=== PATIENT | male | born 1970 | race Caucasian/White ===

== ENCOUNTER 2020-08-17 12:31 | Outpatient (REF) | payer MEDICARE, MEDICAID, SELFPAY ==
[2020-08-17 13:45] LABS: Anion Gap 17 (12-20); Blood Urea Nitrogen 27 mg/dL (9-16); Carbon Dioxide 24 mmol/L (22-29); Chloride 100 mmol/L (96-108); Estimated Glomerular Filt Rate > 60; Phosphorus 4.7 mg/dL (2.7-4.5); Potassium 4.6 mmol/l (3.3-5.1); Sodium 136 mmol/L (135-145)
[2020-08-17 14:04] LABS: Renal w Reflex Lab Use Only Order verified
== END 2020-08-17 12:32 | disposition home or self-care (01) ==
LOC: HO.LAB 12:31
PROVIDERS: PCP Internal Medicine; Visit Provider Internal Medicine Nephrology
DX: E78.1 Pure hyperglyceridemia (principal); I10 Essential (primary) hypertension
CPT/HCPCS: 80051; 82310; 82565; 84100; 84520

== ENCOUNTER → 2020-09-08 11:02 | Outpatient (BNVA) | payer MEDICARE, MEDICAID, SELFPAY | PROVIDERS: PCP Internal Medicine; Referring Provider Internal Medicine; Visit Provider Nurse Practitioner Gerontology | DX: E11.21 Type 2 diabetes mellitus with diabetic nephropathy (principal); E11.40 Type 2 diabetes mellitus with diabetic neuropathy, unspecified; E11.65 Type 2 diabetes mellitus with hyperglycemia; Z79.4 Long term (current) use of insulin; R80.9 Proteinuria, unspecified; E78.5 Hyperlipidemia, unspecified; I10 Essential (primary) hypertension; E66.01 Morbid (severe) obesity due to excess calories; Z68.41 Body mass index [BMI] 40.0-44.9, adult | CPT/HCPCS: 82947; 99212 ==

== ENCOUNTER → 2020-09-13 12:35 | Outpatient (BNVA) | payer MEDICARE, MEDICAID, SELFPAY | PROVIDERS: PCP Internal Medicine; Referring Provider Internal Medicine; Visit Provider Physician Assistant | DX: S93.402A Sprain of unspecified ligament of left ankle, initial encounter (principal) | CPT/HCPCS: 99212 ==

== ENCOUNTER → 2020-09-22 11:48 | Outpatient (BNVA) | payer MEDICARE, MEDICAID, SELFPAY | PROVIDERS: PCP Internal Medicine; Referring Provider Internal Medicine; Visit Provider Nurse Practitioner Gerontology | DX: E11.21 Type 2 diabetes mellitus with diabetic nephropathy (principal); E11.40 Type 2 diabetes mellitus with diabetic neuropathy, unspecified; Z79.4 Long term (current) use of insulin; R80.9 Proteinuria, unspecified; E78.5 Hyperlipidemia, unspecified; I10 Essential (primary) hypertension; E66.01 Morbid (severe) obesity due to excess calories; Z68.41 Body mass index [BMI] 40.0-44.9, adult | CPT/HCPCS: Q3014 ==

== ENCOUNTER 2020-09-26 15:27 | Outpatient (REF) | payer MEDICARE, MEDICAID, SELFPAY ==
--- NOTE | 2020-09-26 15:30 | CT_ITS ---
EXAMINATION: CT HEAD WITHOUT CONTRAST CLINICAL INFORMATION: Fall. Head trauma. COMPARISON: 09/25/2019 TECHNIQUE: Contiguous axial imaging was performed from the skull base to vertex without intravenous contrast. This CT examination was performed using dose optimization techniques as appropriate, variously including the following: * Automated exposure control * Adjustment of mA and/or kV according to patient size (this includes techniques or standardized protocols for targeted exams where dose is matched to indication/reason for exam; i.e. extremities or head) Use of iterative reconstruction technique DLP: 860 mGy-cm. FINDINGS: There is no evidence of acute intracranial hemorrhage or territorial infarction. No abnormal mass effect or midline shift is seen. Shell to white matter differentiation is well preserved. No extra-axial fluid collections are identified. No hydrocephalus. No significant volume loss. Patchy periventricular and deep white matter hypoattenuation is consistent with mild small vessel ischemic changes. 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 The osseous structures and soft tissues are normal. The mastoid air cells and visualized portions of the paranasal sinuses are well aerated. CT/CT head/brain wo con IMPRESSION: No acute intracranial pathology.
== END 2020-09-26 15:28 | disposition home or self-care (01) ==
LOC: HO.CT 15:27
PROVIDERS: Visit Provider Internal Medicine
DX: S09.90XA Unspecified injury of head, initial encounter (principal); W19.XXXA Unspecified fall, initial encounter; M25.572 Pain in left ankle and joints of left foot; M25.562 Pain in left knee
CPT/HCPCS: 70450

== ENCOUNTER 2020-11-25 13:06 | Emergency (ER) | payer MEDICARE, MEDICAID, SELFPAY ==
--- NOTE | 2020-11-25 13:10 | ED_ITS ---
HPI - Fall General Chief Complaint: Back Pain/Injury Stated Complaint: FALL/BACK PAIN Time Seen by Provider: 11/25/20 13:09 Source: patient and EMS Mode of arrival: EMS Limitations: no limitations History of Present Illness HPI Narrative: 50 y/o male with history of obesity, DM2, HLD, GERD, asthma, PVD, vertigo, cerebellar ataxia, depression/anxiety who presents to the ED from a senior living via EMS s/p slip and fall when getting into the shower today. He hit his right lower back and right buttocks on the side of the bathtub. EMS was called and helped get him up. He denies hitting his head or losing consciousnes s. He is not on blood thinners. Related Data Home Medications Medication Instructions Recorded Confirmed demeclocycline 1 tab PO BID 09/04/20 10/20/20 fluticasone propion-salmeterol 1 inh INHALATION BID 09/04/20 10/20/20 [Advair Diskus] hydralazine 1 tab PO BID 09/04/20 10/20/20 lisinopril 20 mg PO DAILY 09/04/20 10/20/20 metformin 1,000 mg PO BID 09/04/20 10/20/20 amlodipine 5 mg tablet 5 mg PO DAILY 09/08/20 10/20/20 blood sugar diagnostic #10 ea 09/08/20 10/11/20 calcium polycarbophil 625 mg tablet 1,250 mg PO DAILY 09/08/20 10/20/20 cholecalciferol (vitamin D3) 25 25 mcg PO DAILY 09/08/20 10/20/20 mcg (1,000 unit) tablet dicyclomine 20 mg tablet 20 mg PO DAILY 09/08/20 10/20/20 lactase 3,000 unit tablet 3,000 unit PO TID PRN tab 09/08/20 10/20/20 mecobalamin (vitamin B12) 1,000 1,000 mcg SUBLINGUAL BEDTIME 09/08/20 10/20/20 mcg disintegrating tablet,sublingual pen needle, diabetic 31 gauge x #1200 ea 09/08/20 10/11/2003/25 triamcinolone acetonide 0.1 % 0.1 applic TOPICAL TID 09/08/20 10/11/20 topical cream gabapentin 100 mg capsule 100 mg PO BID 09/22/20 10/20/20 risperidone 3 mg tablet 3 mg PO BID 09/22/20 10/20/20 divalproex 500 mg tablet,extended 500 mg PO DAILY 10/11/20 10/20/20 release 24 hr propranolol 20 mg tablet 20 mg PO TID tab 10/11/20 10/20/20 Previous Rx's Medication Instructions Recorded acetaminophen 325 mg capsule 650 mg PO QID PRN #60 cap 09/06/20 diphenoxylate-atropine 2.5 1 tab PO BID PRN #60 tab 09/06/20 mg-0.025 mg tablet albuterol sulfate 90 mcg/actuation 2 puff INHALATION Q4-6H PRN #8.5 g 09/29/20 aerosol inhaler semaglutide 0.5 mg SUBCUT QWEEK #1.5 ml 10/11/20 furosemide 20 mg tablet 20 mg PO QAM #28 tab 10/18/20 aspirin 81 mg tablet,delayed 81 mg PO QAM #28 tab 10/24/20 release lancets #100 ea 10/24/20 dextromethorphan-guaifenesin 10 10 ml PO Q4H PRN #118 ml 11/07/20 mg-100 mg/5 mL oral syrup atorvastatin 10 mg tablet 10 mg PO DAILY #28 tab 11/20/20 dexlansoprazole 60 mg 60 mg PO DAILY #90 cap 11/20/20 capsule,biphase delayed release Allergies Allergy/AdvReac Type Severity Reaction Status Date / Time Sulfa (Sulfonamide Allergy Severe LANDEROS Verified 11/16/20 13:14 Antibiotics) ALICIA REACTION, Landeros Alicia trimethoprim Allergy Mild UNKNOWN Verified 09/13/20 12:52 lactose AdvReac Mild STOMACH Verified 09/13/20 12:52 UPSET Review of Systems Review of Systems: Constitutional: No Fever, No Chills ENT/Mouth: No sore throat, No Rhinorrhea, No Swallowing Difficulty Eyes: No Eye Pain, No Swelling, No Redness Cardiovascular: No Chest Pain, No SOB, No Orthopnea, No Edema Respiratory: No Cough, No Sputum, No Wheezing, No dyspnea Gastrointestinal: No Nausea, No Vomiting, No Diarrhea, No abdominal Pain, No Hematochezia, No Melena Genitourinary: No Dysuria, No Urinary Frequency, No Hematuria Musculoskeletal: + joint pain, + Myalgias Skin: No Skin Lesions, No rash Neuro: No Weakness, No Numbness, No Dizziness, No Headache Psych: No Anxiety/Panic, No Depression Heme/Lymph: No Bruising, No Lymphadenopathy Endocrine: No Polyuria, No Polydipsia [facility] Past Medical History Medical History (Updated 11/25/20 @ 14:38 by PANKAJ Aguilar) Anemia Anxiety Asthma BMI 40.0-44.9, adult Cerebellar ataxia Depression Essential hypertension Hyperlipidemia LDL goal <100 Hypertension Hyponatremia Lactose intolerance Mental disability Morbid obesity due to excess calories Obesity Peripheral vascular disease Proteinuria Seizure disorder Type 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 Vertigo Surgical History History of orchiectomy Family History Family History (Updated 11/16/20 @ 13:15 by Ellen Yu Rickie) Father Myocardial infarction CVD (cardiovascular disease) Diabetes mellitus Mother Diabetes mellitus HTN (hypertension) Brother In good health Sister In good health Social History Social History Smoking Status: Former smoker Advance Directives: No Advance Directives Information Provided: No Physical Exam Vital Signs: Vital Signs: Last Vital Signs Temp 97.7 F 11/25/20 13:29 Pulse 70 11/25/20 13:29 Resp 16 11/25/20 13:29 BP 152/91 H 11/25/20 13:29 Pulse Ox 97 11/25/20 13:29 Body Mass Index 44.4 Appearance: Alert. Oriented X3. No acute distress. HEENT: right eye gaze deviation to the right CVS: Normal heart rate and rhythm. Pulses normal. Respiratory: No respiratory distress. Skin: Skin warm and dry. Normal skin color. Normal skin turgor. No rashes. Back: right lower lumbar area with mild tenderness, mild coccyx tenderness. no ecchymosis or deformity Extremities: atraumatic. Neuro: Oriented X 3. Abnormal gait which is his baseline. Moves around well in bed. Course Course Course Narrative: 50 y/o male with multiple comorbidities presenting with low back pain and buttock pain after slip and fall in the shower. No ecchymosis on exam, minimal tenderness. XR pending, low suspicion for fractures. Reevaluation(s) Reevaluation #1: XR negative. Patient given Tylenol with improvement in pain. He is stable for discharge. Discharge Plan Discharge Clinical Impression: Contusion of lower back Qualifiers: Encounter type: initial encounter Qualified Code(s): S30.0XXA - Contusion of lower back and pelvis, initial encounter Patient Disposition: Home, Self-Care Instructions: Contusion in Adults (ED) Additional Instructions: Your x-rays today were negative. Use ice to the area as needed for pain. Take Tylenol and/or Motrin as needed for pain. Follow up with your doctor as needed. If you develop worsening pain or any other concerning symptoms seek medical attention or come back to the ER for further evaluation. Prescriptions: No Action fluticasone propion-salmeterol [Advair Diskus] 250-50 mcg/dose blister with device 1 inh inhalation BID RF: 0 metformin 1,000 mg Tablet 1,000 mg PO BID RF: 0 demeclocycline 300 mg tablet 1 tab PO BID RF: 0 lisinopril 20 mg Tablet 20 mg PO DAILY RF: 0 hydralazine 50 mg tablet 1 tab PO BID RF: 0 diphenoxylate-atropine [Lomotil] 2.5-0.025 mg tablet 1 tab PO BID PRN (Reason: diarrhea) Qty: 60 RF: 0 acetaminophen 325 mg capsule 650 mg PO QID PRN (Reason: pain) Qty: 60 RF: 0 semaglutide [Ozempic] 0.25 mg or 0.5 mg(2 mg/1.5 mL) pen injector 0.5 mg subcut QWEEK Qty: 1.5 RF: 3 furosemide 20 mg tablet 20 mg PO QAM Qty: 28 RF: 2 (DME) lancets Misc See Rx Instructions ea topical TID Qty: 100 RF: 3 aspirin 81 mg tablet,delayed release (DR/EC) 81 mg PO QAM Qty: 28 RF: 11 dextromethorphan-guaifenesin [Siltussin-DM] 10-100 mg/5 mL syrup 10 ml PO Q4H PRN (Reason: for cough) Qty: 118 RF: 0 atorvastatin 10 mg tablet 10 mg PO DAILY Qty: 28 RF: 11 Dexilant 60 mg capsule,biphase delayed releas 60 mg PO DAILY Qty: 90 RF: 3 albuterol sulfate [Ventolin HFA] 90 mcg/actuation HFA aerosol inhaler 2 puff INHALATION Q4-6H PRN (Reason: Shortness Of Breath Or Wheezing) Qty: 8.5 RF: 0 propranolol 20 mg tablet 20 mg PO TID RF: 0 amlodipine 5 mg tablet 5 mg PO DAILY RF: 0 dicyclomine 20 mg tablet 20 mg PO DAILY RF: 0 mecobalamin (vitamin B12) 1,000 mcg tablet,disintegrating 1,000 mcg sublingual BEDTIME RF: 0 calcium polycarbophil [Fiber Laxative (ca polycarbo)] 625 mg tablet 1,250 mg PO DAILY RF: 0 lactase [Lactaid] 3,000 unit tablet 3,000 unit PO TID PRN (Reason: Lactose Intolerance) RF: 0 triamcinolone acetonide 0.1 % cream 0.1 applic topical TID RF: 0 cholecalciferol (vitamin D3) [Vitamin D3] 25 mcg (1,000 unit) tablet 25 mcg PO DAILY RF: 0 (DME) OneTouch Ultra Blue Test Strip Strip See Rx Instructions ea .ROUTE TID Qty: 10 RF: 0 (DME) pen needle, diabetic 31 gauge x 5/16 needle See Rx Instructions ea .ROUTE .MEDSUPPLY Qty: 1200 RF: 0 gabapentin 100 mg capsule 100 mg PO BID RF: 0 risperidone 3 mg tablet 3 mg PO BID RF: 0 divalproex 500 mg tablet extended release 24 hr 500 mg PO DAILY RF: 0
[2020-11-25 13:29] VITALS: BP 152/91; PULSE 70; RESP 16; TEMP 36.5; O2SAT 97; BMI 44.4
--- NOTE | 2020-11-25 13:35 | XR_ITS ---
EXAMINATION: LUMBAR SPINE AND SACRUM X-RAYS CLINICAL INFORMATION: Fall COMPARISON: Previous CT of the abdomen and pelvis September [address] of the lumbar spine July 2019 TECHNIQUE: 3 views of the lumbar spine and 3 views of the sacrum FINDINGS: Lumbar spine: There is curvature of the lower lumbar sacral spine to the right. Bone alignment is otherwise normal. No fracture or dislocation is seen. There is multilevel degenerative spondylosis visualized lower thoracic spine. There is lower lumbar spine facet arthritis. Sacrum: Bone alignment is normal. No fracture or dislocation is seen. There is soft tissue calcifications posterior to the lower sacrum and coccyx similar to previous exams. These represent partially calcified superficial gluteal collections when compared with previous CT scan. XR/XR sacrum coccyx min 2V IMPRESSION: Lumbar spine: No fracture or dislocation seen. Degenerative changes. Sacrum: No fracture or dislocation seen. Stable soft tissue calcifications overlying the lower sacrum and coccyx.
--- NOTE | 2020-11-25 13:35 | XR_ITS ---
EXAMINATION: LUMBAR SPINE AND SACRUM X-RAYS CLINICAL INFORMATION: Fall COMPARISON: Previous CT of the abdomen and pelvis September [address] of the lumbar spine July 2019 TECHNIQUE: 3 views of the lumbar spine and 3 views of the sacrum FINDINGS: Lumbar spine: There is curvature of the lower lumbar sacral spine to the right. Bone alignment is otherwise normal. No fracture or dislocation is seen. There is multilevel degenerative spondylosis visualized lower thoracic spine. There is lower lumbar spine facet arthritis. Sacrum: Bone alignment is normal. No fracture or dislocation is seen. There is soft tissue calcifications posterior to the lower sacrum and coccyx similar to previous exams. These represent partially calcified superficial gluteal collections when compared with previous CT scan. XR/XR lumbar spine 2-3V IMPRESSION: Lumbar spine: No fracture or dislocation seen. Degenerative changes. Sacrum: No fracture or dislocation seen. Stable soft tissue calcifications overlying the lower sacrum and coccyx.
[2020-11-25] MEDS: Acetaminophen 325 MG TABLET 975 MG PO (14:14)
--- NOTE | 2020-11-25 15:24 | PC.NURSE ---
call placed to pts assisted spoke with Brenda, someone will come to pick pt up
--- NOTE | 2020-11-25 16:00 | PC.NURSE ---
this rn calling Brenda from senior care. Pt has indicated to primary RN that he feels suicidal. Brenda states that pt has long history of attention seeking behaviour and has mult ED trips with negative workups. The house is on quarentine d/t one covid positive patiet and this pt likely doesn't want to go home. Pt is DM w/o breakfast today. Ride is enroute to ED. This rn to make provider aware.
--- NOTE | 2020-11-25 16:05 | PC.NURSE ---
Brenda also stating that patient's only attempt at self harm to her knowledge was running to the kitchen and taking a butter knife w/o harming himself. nursing home staff can have patient call crisis as needed. Provider is comfortable iwth discharge.
== END 2020-11-25 16:17 | disposition home or self-care (01) ==
PROVIDERS: Emergency Provider Emergency Medicine Emergency Medical Services; PCP Internal Medicine
DX: S30.0XXA Contusion of lower back and pelvis, initial encounter (principal); M54.5 Low back pain; M53.3 Sacrococcygeal disorders, not elsewhere classified; W18.2XXA Fall in (into) shower or empty bathtub, initial encounter; Y93.E1 Activity, personal bathing and showering; Y92.89 Other specified places as the place of occurrence of the external cause; Y99.9 Unspecified external cause status; Z79.899 Other long term (current) drug therapy; Z87.891 Personal history of nicotine dependence
CPT/HCPCS: 72100; 72220; 99283

== ENCOUNTER 2020-11-27 19:34 | Inpatient (IN) | payer MEDICARE, MEDICAID, SELFPAY ==
[2020-11-27 20:18] VITALS: BP 137/79; PULSE 85; RESP 20; TEMP 36.8; O2SAT 99; BMI 44.4
--- NOTE | 2020-11-27 20:23 | XR_ITS ---
EXAMINATION: PORTABLE CHEST 1 VIEW CLINICAL INFORMATION: cough . COMPARISON: 10/04/2019. TECHNIQUE: Portable frontal view of the chest was obtained. FINDINGS: The lungs are well expanded. No focal infiltrate, effusion, edema, or pneumothorax. Cardiac and mediastinal silhouettes are within normal limits for technique. No acute bony abnormality seen. XR/XR chest 1V IMPRESSION: No evidence of acute disease.
--- NOTE | 2020-11-27 20:23 | ECG_ITS ---
Test Reason : DIZZINESS Blood Pressure : / mmHG Vent. Rate : 087 BPM Atrial Rate : 277 BPM P-R Int : 000 ms QRS Dur : 082 ms QT Int : 382 ms P-R-T Axes : 068 -17 023 degrees QTc Int : 459 ms Artifact in tracing Likely sinus and not atrial arrhythmia; appearance probably from artifact ; Cannot assess further due to artifact; Abnormal ECG When compared with ECG of 04-OCT-2019 18:12, Due to artifact cannot compare Referred By: Mary Jane Kim Electronically Signed By:AP MONTGOMERY
--- NOTE | 2020-11-27 21:18 | CT_ITS ---
EXAMINATION: CT ABDOMEN AND PELVIS WITH CONTRAST CLINICAL INFORMATION: Right lower quadrant pain COMPARISON: Prior CT abdomen pelvis 09/25/2019 TECHNIQUE: Multidetector volumetric images were obtained from the superior aspect of the liver through the pubic symphysis following administration 85 mL of Omnipaque 350 intravenous contrast. Sagittal and coronal reformatted images were obtained on the technologist's workstation. Oral contrast: No This CT examination was performed using dose optimization techniques as appropriate, variously including the following: *Automated exposure control *Adjustment of mA and/or kV according to patient size (this includes techniques or standardized protocols for targeted exams where dose is matched to indication/reason for exam; i.e. extremities or head) *Use of iterative reconstruction technique DLP: 1142 mGy-cm FINDINGS: LUNG BASES: The visualized lung bases are unremarkable. LIVER, GALLBLADDER, AND BILIARY TREE: The liver is normal in size, shape, and attenuation. No focal hepatic lesion or biliary ductal dilatation is present. The gallbladder is unremarkable with no evidence of radiopaque gallstones, gallbladder wall thickening, or obvious pericholecystic inflammatory changes. PANCREAS: Unremarkable. SPLEEN: Unremarkable. ADRENAL GLANDS: Slight nodularity of the left adrenal gland is unchanged when compared to the prior study. KIDNEYS AND URETERS: The kidneys are normal in size, shape, and attenuation. No hydronephrosis, hydroureter, or calculi seen. There is nonspecific perinephric stranding. BLADDER: Symmetric wall thickening without masses or stones. GASTROINTESTINAL TRACT: The small and large bowel are unremarkable. The appendix is unremarkable. ABDOMINAL WALL: No significant hernia is appreciated. There is a large area of soft tissue mass and dystrophic calcification present in the right buttocks with a smaller area in the left buttocks. This measures 8.8 x 4.9 x 9.2 cm. Previously in 2019 this measured 5.8 x 4.2 x 6.2 cm. Calcification is predominantly peripheral and coarse with a low attenuation near fatty middle. This could represent an area of fat necrosis. LYMPH NODES: No retroperitoneal lymphadenopathy. VASCULAR: Calcific atherosclerotic changes present in the infrarenal aorta and iliac vessels. No aneurysm seen. PELVIC VISCERA: Prostate and seminal vesicles appear normal. OSSEOUS STRUCTURES: Degenerative changes present in the lower thoracic spine. No bony destructive. CT/CT abdomen pelvis w con IMPRESSION: No new worrisome finding to account for the patient's acute right lower quadrant pain. The bowel and the appendix appear unremarkable. Incidental note made of: 1. Unchanged nodularity left adrenal gland 2. Symmetric bladder wall thickening 3. Increasing size of coarse eggshell calcified mass right buttocks which may represent fat necrosis. Clinical correlation with recommended.
--- NOTE | 2020-11-27 21:20 | ED.ABDPAIN ---
HPI - Abdominal Pain General Chief Complaint: Abdominal Pain Stated Complaint: Abd pain Time Seen by Provider: 11/27/20 19:53 Source: patient Mode of arrival: ambulatory Limitations: other (Developmental delay) History of Present Illness HPI narrative: Patient is brought from a [facility] for abdominal pain. Patient states that today he started having right lower quadrant pain. Patient had 1 episode of diarrhea. Patient reports 1 episode of vomiting after eating. Patient is poor historian. Patient was seen here 2 days ago, patient came complaining of lumbar pain. Patient complaining of diarrhea, starting today. MD elicited complaint: abdominal pain Related Data Home Medications Medication Instructions Recorded Confirmed demeclocycline 1 tab PO BID 09/04/20 10/20/20 fluticasone propion-salmeterol 1 inh INHALATION BID 09/04/20 10/20/20 [Advair Diskus] hydralazine 1 tab PO BID 09/04/20 10/20/20 lisinopril 20 mg PO DAILY 09/04/20 10/20/20 metformin 1,000 mg PO BID 09/04/20 10/20/20 amlodipine 5 mg tablet 5 mg PO DAILY 09/08/20 10/20/20 blood sugar diagnostic #10 ea 09/08/20 10/11/20 calcium polycarbophil 625 mg tablet 1,250 mg PO DAILY 09/08/20 10/20/20 cholecalciferol (vitamin D3) 25 25 mcg PO DAILY 09/08/20 10/20/20 mcg (1,000 unit) tablet dicyclomine 20 mg tablet 20 mg PO DAILY 09/08/20 10/20/20 lactase 3,000 unit tablet 3,000 unit PO TID PRN tab 09/08/20 10/20/20 mecobalamin (vitamin B12) 1,000 1,000 mcg SUBLINGUAL BEDTIME 09/08/20 10/20/20 mcg disintegrating tablet,sublingual pen needle, diabetic 31 gauge x #1200 ea 09/08/20 10/11/2003/25 triamcinolone acetonide 0.1 % 0.1 applic TOPICAL TID 09/08/20 10/11/20 topical cream gabapentin 100 mg capsule 100 mg PO BID 09/22/20 10/20/20 risperidone 3 mg tablet 3 mg PO BID 09/22/20 10/20/20 divalproex 500 mg tablet,extended 500 mg PO DAILY 10/11/20 10/20/20 release 24 hr propranolol 20 mg tablet 20 mg PO TID tab 10/11/20 10/20/20 Previous Rx's Medication Instructions Recorded acetaminophen 325 mg capsule 650 mg PO QID PRN #60 cap 09/06/20 diphenoxylate-atropine 2.5 1 tab PO BID PRN #60 tab 09/06/20 mg-0.025 mg tablet albuterol sulfate 90 mcg/actuation 2 puff INHALATION Q4-6H PRN #8.5 g 09/29/20 aerosol inhaler semaglutide 0.5 mg SUBCUT QWEEK #1.5 ml 10/11/20 furosemide 20 mg tablet 20 mg PO QAM #28 tab 10/18/20 aspirin 81 mg tablet,delayed 81 mg PO QAM #28 tab 10/24/20 release lancets #100 ea 10/24/20 dextromethorphan-guaifenesin 10 10 ml PO Q4H PRN #118 ml 11/07/20 mg-100 mg/5 mL oral syrup atorvastatin 10 mg tablet 10 mg PO DAILY #28 tab 11/20/20 dexlansoprazole 60 mg 60 mg PO DAILY #90 cap 11/20/20 capsule,biphase delayed release Allergies Allergy/AdvReac Type Severity Reaction Status Date / Time Sulfa (Sulfonamide Allergy Severe LANDEROS Verified 11/27/20 20:18 Antibiotics) ALICIA REACTION, Landeros Alicia trimethoprim Allergy Mild UNKNOWN Verified 11/27/20 20:18 lactose AdvReac Mild STOMACH Verified 11/27/20 20:18 UPSET Review of Systems Review of Systems Constitutional : No Weight loss, No Fever, No Chills, No Night Sweats, No Fatigue, No Malaise ENT/Mouth : No Hearing loss, No Ear Pain, No Nasal Congestion, No Sinus Pain, No Hoarseness, No sore throat, No Rhinorrhea, No Swallowing Difficulty Eyes: No Eye Pain, No Swelling, No Redness, No Foreign Body, No Discharge, No Vision Changes Cardiovascular : No Chest Pain, No SOB, No Dyspnea on Exertion, No Orthopnea, No Edema, No Palpitations Respiratory : No Cough, No Sputum, No Wheezing, No Smoke Exposure, No Dyspnea Gastrointestinal : Complaining of 1 episode of nausea and vomiting, reports loose stools, complaining of right lower quadrant pain, No Melena Genitourinary : no irregular bleeding, No Dysuria, No Urinary Frequency, No Hematuria, No Urinary Incontinence, No Urgency, No Flank Pain, No Urinary Flow Changes, No Hesitancy Musculoskeletal : No joint pain, No Myalgias, No Joint Swelling Skin : No Skin Lesions, No rash Neuro : No Weakness, No Numbness, No Paresthesias, No Loss of Consciousness, No Dizziness, No Headache Psych : No Anxiety/Panic, No Depression, No SI/HI/AH/VH, No Social Issues, Heme/Lymph: No Bruising, No Bleeding,No Lymphadenopathy Endocrine : No Polyuria, No Polydipsia, No Temperature Intolerance Physical Exam Vital Signs: Vital Signs: Last Vital Signs Temp 98.6 F 11/28/20 02:00 Pulse 84 11/28/20 02:00 Resp 18 11/28/20 02:00 BP 143/76 H 11/28/20 02:00 Pulse Ox 97 11/28/20 02:00 Body Mass Index 44.4 Appearance: Alert. Oriented X3. No acute distress. Eyes: Pupils equal, round and reactive to light. ENT: Pharynx normal. Neck: Normal inspection. Neck supple. No lymph nodes noted. No crepitus CVS: Normal heart rate and rhythm. Pulses normal. Normal S1 and S2 Respiratory: No respiratory distress. Breath sounds normal. No Wheezing. No rales Abdomen: Soft , mild to moderate discomfort in the right lower quadrant, no rebound, No rigidity. No distention. Patient incontinent of liquid stool Skin: Skin warm and dry. Normal skin color. Normal skin turgor. Extremities: No lower extremity edema. No lower extremity edema. No Lacerations. No Rash Neuro: Oriented X 3. No motor deficit. No sensory deficit. Moving all extermities. No slurred speech. Course Course Course Narrative: Patient's initial EKG showed possible atrial flutter. However, patient was very shaky and anxious, shortly after, after he was no longer shaking, telemetry we could see that patient was not in atrial flutter. Orthostatics negative, Patient tested positive for COVID-19. Patient is asymptomatic. Patient has no shortness of breath, no chest pain, oxygen saturation 99% on room air, patient's nurse is calling his [facility] to inform them that the patient tested positive for COVID Patient states that he has been feeling dizzy for several days now, orthostatics negative, patient was given meclizine, patient states that he feels lightheaded. EKG shows an atrial flutter pattern, however the heart rate is controlled at 80, patient has no chest pain or shortness of breath, no palpitations. I discussed this with our hospitalist, patient being admitted. MDM - Abdominal Pain Lab Data Result diagrams: 11/27/20 21:40 11/27/20 21:40 Labs: Lab Results 11/27/20 11/27/20 11/27/20 Range/Units 21:40 21:40 21:41 WBC 6.1 (4.8-10.8) X10*3/uL RBC 3.33 L (4.60-5.80) X10*6/uL Hgb 9.4 L (14.0-18.0) g/dl Hct 29.5 L (42-52) % MCV 88.6 (80-98) fL MCH 28.2 (27.0-33.0) pg MCHC 31.9 (31.0-36.0) g/dl RDW 15.1 (11.0-16.0) % Plt Count 116 L (160-400) X10*3/uL MPV 10.3 (9.4-12.4) fL Immature Gran % (Auto) 0.5 H (0.0-0.4) % Neut % (Auto) 60.6 (45-73) % Lymph % (Auto) 26.6 (20-40) % [place] % (Auto) 10.8 (2-11) % Eos % (Auto) 1.0 (0-4) % Baso % (Auto) 0.5 (0-2) % Lymph # (Auto) 1.6 (1.2-4.9) X10*3/uL [place] # (Auto) 0.7 (0.1-1.2) X10*3/uL Eos # (Auto) 0.1 (0.0-0.4) X10*3/uL Baso # (Auto) 0.0 (0.0-0.2) X10*3/uL Abs Immat Gran (auto) 0.03 (0.00-0.03) X10*3/uL Absolute Neuts (auto) 3.7 (2.0-8.3) X10*3/uL Absolute Nucleated RBC 0.000 (0.0-0.012) X10*3/uL Nucleated RBC % (auto) 0.0 (0.0-0.2) /100WBC Hold Blue Top SEE NOTE Sodium 137 (135-145) mmol/L Potassium 3.8 (3.3-5.1) mmol/l Chloride 99 (96-108) mmol/L Carbon Dioxide 28 (22-29) mmol/L Anion Gap 14 (12-20) BUN 21 H D (9-16) mg/dL Creatinine 1.05 (0.5-1.4) mg/dL Estim Creat Clear Calc 106.1 Estimated GFR > 60 Random Glucose 94 (60-115) mg/dL Calcium 7.7 L D (8.4-10.2) mg/dL Magnesium 0.8 L* (1.6-2.6) mg/dL Total Bilirubin 0.2 (0.0-1.0) mg/dL Direct Bilirubin 0.2 (0.0-0.5) mg/dL AST 39 H (5-37) U/L ALT 25 (0-40) U/L Alkaline Phosphatase 95 D (39-117) U/L Troponin I High Sens (<3.5-35.0) ng/L Total Protein 5.8 L (6.5-8.0) g/dL Albumin 3.2 L (3.5-5.0) g/dL Urine Color Urine Appearance Urine pH (5.0-8.0) Ur Specific [place] (1.005-1.025) Urine Protein (NEG-TRACE) MG/DL Urine Glucose (UA) (NEG) MG/DL Urine Ketones (NEG) MG/DL Urine Blood (NEG) Urine Nitrite (NEG) Ur Leukocyte Esterase (NEG) Coronavirus (PCR) (Negative) Influenza Type A (PCR) (Negative) Influenza Type B (PCR) (Negative) RSV RNA Qual (PCR) (Negative) 11/27/20 11/27/20 11/27/20 Range/Units 21:41 21:41 21:41 WBC (4.8-10.8) X10*3/uL RBC (4.60-5.80) X10*6/uL Hgb (14.0-18.0) g/dl Hct (42-52) % MCV (80-98) fL MCH (27.0-33.0) pg MCHC (31.0-36.0) g/dl RDW (11.0-16.0) % Plt Count (160-400) X10*3/uL MPV (9.4-12.4) fL Immature Gran % (Auto) (0.0-0.4) % Neut % (Auto) (45-73) % Lymph % (Auto) (20-40) % [place] % (Auto) (2-11) % Eos % (Auto) (0-4) % Baso % (Auto) (0-2) % Lymph # (Auto) (1.2-4.9) X10*3/uL [place] # (Auto) (0.1-1.2) X10*3/uL Eos # (Auto) (0.0-0.4) X10*3/uL Baso # (Auto) (0.0-0.2) X10*3/uL Abs Immat Gran (auto) (0.00-0.03) X10*3/uL Absolute Neuts (auto) (2.0-8.3) X10*3/uL Absolute Nucleated RBC (0.0-0.012) X10*3/uL Nucleated RBC % (auto) (0.0-0.2) /100WBC Hold Blue Top Sodium (135-145) mmol/L Potassium (3.3-5.1) mmol/l Chloride (96-108) mmol/L Carbon Dioxide (22-29) mmol/L Anion Gap (12-20) BUN (9-16) mg/dL Creatinine (0.5-1.4) mg/dL Estim Creat Clear Calc Estimated GFR Random Glucose (60-115) mg/dL Calcium (8.4-10.2) mg/dL Magnesium (1.6-2.6) mg/dL Total Bilirubin (0.0-1.0) mg/dL Direct Bilirubin (0.0-0.5) mg/dL AST (5-37) U/L ALT (0-40) U/L Alkaline Phosphatase (39-117) U/L Troponin I High Sens 7.2 (<3.5-35.0) ng/L Total Protein (6.5-8.0) g/dL Albumin (3.5-5.0) g/dL Urine Color YELLOW Urine Appearance CLEAR Urine pH 6.0 (5.0-8.0) Ur Specific [place] 1.020 (1.005-1.025) Urine Protein NEG (NEG-TRACE) MG/DL Urine Glucose (UA) NEG (NEG) MG/DL Urine Ketones 5 (NEG) MG/DL Urine Blood NEG (NEG) Urine Nitrite NEG (NEG) Ur Leukocyte Esterase NEG (NEG) Coronavirus (PCR) POSITIVE A (Negative) Influenza Type A (PCR) NEGATIVE (Negative) Influenza Type B (PCR) NEGATIVE (Negative) RSV RNA Qual (PCR) NEGATIVE (Negative) ECG Data Attestation: I personally reviewed and interpreted this ECG as follows: (EKG 1: Heart rate 87, atrial flutter like pattern, QTC 459, EKG 2. Similar atrial flutter like pattern but not in all leads, heart rate 84, QTC 451 ) Critical Care Time Critical Care Time Total Critical Care Time: 60 Discharge Plan Discharge Clinical Impression: Hypomagnesemia, COVID-19 Abdominal pain Qualifiers: Abdominal location: right lower quadrant Qualified Code(s): R10.31 - Right lower quadrant pain Diarrhea Qualifiers: Diarrhea type: unspecified type Qualified Code(s): R19.7 - Diarrhea, unspecified Prescriptions: No Action fluticasone propion-salmeterol [Advair Diskus] 250-50 mcg/dose blister with device 1 inh inhalation BID RF: 0 metformin 1,000 mg Tablet 1,000 mg PO BID RF: 0 demeclocycline 300 mg tablet 1 tab PO BID RF: 0 lisinopril 20 mg Tablet 20 mg PO DAILY RF: 0 hydralazine 50 mg tablet 1 tab PO BID RF: 0 diphenoxylate-atropine [Lomotil] 2.5-0.025 mg tablet 1 tab PO BID PRN (Reason: diarrhea) Qty: 60 RF: 0 acetaminophen 325 mg capsule 650 mg PO QID PRN (Reason: pain) Qty: 60 RF: 0 semaglutide [Ozempic] 0.25 mg or 0.5 mg(2 mg/1.5 mL) pen injector 0.5 mg subcut QWEEK Qty: 1.5 RF: 3 furosemide 20 mg tablet 20 mg PO QAM Qty: 28 RF: 2 (DME) lancets Misc See Rx Instructions ea topical TID Qty: 100 RF: 3 aspirin 81 mg tablet,delayed release (DR/EC) 81 mg PO QAM Qty: 28 RF: 11 dextromethorphan-guaifenesin [Siltussin-DM] 10-100 mg/5 mL syrup 10 ml PO Q4H PRN (Reason: for cough) Qty: 118 RF: 0 atorvastatin 10 mg tablet 10 mg PO DAILY Qty: 28 RF: 11 Dexilant 60 mg capsule,biphase delayed releas 60 mg PO DAILY Qty: 90 RF: 3 albuterol sulfate [Ventolin HFA] 90 mcg/actuation HFA aerosol inhaler 2 puff INHALATION Q4-6H PRN (Reason: Shortness Of Breath Or Wheezing) Qty: 8.5 RF: 0 propranolol 20 mg tablet 20 mg PO TID RF: 0 amlodipine 5 mg tablet 5 mg PO DAILY RF: 0 dicyclomine 20 mg tablet 20 mg PO DAILY RF: 0 mecobalamin (vitamin B12) 1,000 mcg tablet,disintegrating 1,000 mcg sublingual BEDTIME RF: 0 calcium polycarbophil [Fiber Laxative (ca polycarbo)] 625 mg tablet 1,250 mg PO DAILY RF: 0 lactase [Lactaid] 3,000 unit tablet 3,000 unit PO TID PRN (Reason: Lactose Intolerance) RF: 0 triamcinolone acetonide 0.1 % cream 0.1 applic topical TID RF: 0 cholecalciferol (vitamin D3) [Vitamin D3] 25 mcg (1,000 unit) tablet 25 mcg PO DAILY RF: 0 (DME) OneTouch Ultra Blue Test Strip Strip See Rx Instructions ea .ROUTE TID Qty: 10 RF: 0 (DME) pen needle, diabetic 31 gauge x 5/16 needle See Rx Instructions ea .ROUTE .MEDSUPPLY Qty: 1200 RF: 0 gabapentin 100 mg capsule 100 mg PO BID RF: 0 risperidone 3 mg tablet 3 mg PO BID RF: 0 divalproex 500 mg tablet extended release 24 hr 500 mg PO DAILY RF: 0 PMFSH Past Medical History Medical History Anemia Anxiety Asthma BMI 40.0-44.9, adult Cerebellar ataxia Depression Essential hypertension Hyperlipidemia LDL goal <100 Hypertension Hyponatremia Lactose intolerance Mental disability Morbid obesity due to excess calories Obesity Peripheral vascular disease Proteinuria Seizure disorder Type 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 Vertigo Surgical History History of orchiectomy Family History Family History (Updated 11/16/20 @ 13:15 by Ellen Yu [facility]) Father Myocardial infarction CVD (cardiovascular disease) Diabetes mellitus Mother Diabetes mellitus HTN (hypertension) Brother In good health Sister In good health Social History Social History Alcohol intake: never Smoking Status: Never smoker Smoked in Last 30 Days: No Use of substances other than those prescribed or required for medical reasons: No Advance Directives: No
[2020-11-27 21:43] VITALS: BP 136/87; PULSE 84; RESP 14; TEMP 37.1; O2SAT 100
[2020-11-27 21:48] LABS: MANUAL DIFF FLAG NO
[2020-11-27 21:52] LABS: Glucose Urine UA NEG (NEG); Leukocyte Esterase Urine NEG (NEG); Nitrite Urine NEG (NEG); Urine Blood NEG (NEG); Urine Ketones 5 MG/DL (NEG); Urine Protein NEG (NEG-TRACE)
[2020-11-27 21:54] LABS: Basophils Percent Auto 0.5 % (0-2); Eosinophils Absolute Auto 0.1 X10*3/uL (0.0-0.4); Hematocrit 29.5 % (42-52); Hemoglobin 9.4 g/dl (14.0-18.0); Imm Gran Abs Auto 0.03 X10*3/uL (0.00-0.03); Imm Gran Pct Auto 0.5 % (0.0-0.4); Lymphocytes Absolute Auto 1.6 X10*3/uL (1.2-4.9); Lymphocytes Percent Auto 26.6 % (20-40); Mean Corpuscular HGB Conc 31.9 g/dl (31.0-36.0); Mean Corpuscular Hemoglobin 28.2 pg (27.0-33.0); Mean Corpuscular Volume 88.6 fL (80-98); Mean Platelet Volume 10.3 fL (9.4-12.4); Monocytes Absolute Auto 0.7 X10*3/uL (0.1-1.2); Monocytes Percent Auto 10.8 % (2-11); Neutrophils Absolute Auto 3.7 X10*3/uL (2.0-8.3); Neutrophils Percent Auto 60.6 % (45-73); Platelet Count 116 X10*3/uL (160-400); Red Blood Count 3.33 X10*6/uL (4.60-5.80); Red Cell Distribution Width 15.1 % (11.0-16.0); White Blood Count 6.1 X10*3/uL (4.8-10.8)
[2020-11-27 21:56] LABS: Appearance Urine CLEAR; Color Urine YELLOW
[2020-11-27] MEDS: 0.9 % Sodium Chloride 1,000 ML 999 ML IVCONT ×2 (22:00)
[2020-11-27] MEDS: ondansetron HCL 4 MG/2 ML VIAL IVPUSH (22:00)
--- NOTE | 2020-11-27 22:01 | PC.NURSE ---
PT ARRIVED TO ER BY EMS. PT REPORTS HE FELL AT ASSISTED, UNABLE TO GET BACK UP ON HIS OWN. PT FELL FORWARD ONTO HIS ABDOMEN. NO BRUISING, TENDERNESS TO RLQ.
--- NOTE | 2020-11-27 22:02 | PC.NURSE ---
PT INCONTINENT OF STOOL, PANTS CUT OFF, OR THEY WOULD HAVE SOILED HIS LEG BRACES.
[2020-11-27 22:19] LABS: Alanine Aminotransferase 25 U/L (0-40); Albumin Level 3.2 g/dL (3.5-5.0); Alkaline Phosphatase 95 U/L (39-117); Anion Gap 14 (12-20); Aspartate Amino Transferase 39 U/L (5-37); Bilirubin Direct 0.2 mg/dL (0.0-0.5); Bilirubin Total 0.2 mg/dL (0.0-1.0); Blood Urea Nitrogen 21 mg/dL (9-16); Calcium 7.7 mg/dL (8.4-10.2); Carbon Dioxide 28 mmol/L (22-29); Chloride 99 mmol/L (96-108); Creatinine Clr Calc Pharmacy 106.1; Estimated Glomerular Filt Rate > 60; Glucose Random 94 mg/dL (60-115); Magnesium 0.8 mg/dL (1.6-2.6); Potassium 3.8 mmol/l (3.3-5.1); Sodium 137 mmol/L (135-145); Total Protein 5.8 g/dL (6.5-8.0)
[2020-11-27 22:40] VITALS: BP 165/90; PULSE 85; RESP 18; O2SAT 100
[2020-11-27 22:41] VITALS: BP 157/95; BP 165/90; PULSE 86; PULSE 91
[2020-11-27 22:43] LABS: Influenza A PCR NEGATIVE (Negative); Influenza B PCR NEGATIVE (Negative); Resp Syncy Virus RNA Qual PCR NEGATIVE (Negative); SARS COV2 PCR INHOUSE POSITIVE (Negative)
[2020-11-27] MEDS: Magnesium Sulfate/H2O 2 GM/50 ML PIGGYBACK IV (23:12)
[2020-11-27] MEDS: iohexoL 350 MG/ML 100 ML INFUS..BTL 85 ML IV (23:43)
[2020-11-28] VITALS (12 sets, daily range): BP systolic 127–170; BP diastolic 69–88; PULSE 70–87; RESP 15–20; TEMP 36.4–37; O2SAT 96–98
[2020-11-28] MEDS: Loperamide HCl 2 MG CAPSULE 4 MG PO (00:08)
[2020-11-28] MEDS: 0.9 % Sodium Chloride 1,000 ML 999 ML IVCONT (00:09)
[2020-11-28 00:16] LABS: Troponin-I High Sensitivity 7.2 ng/L (<3.5-35.0)
--- NOTE | 2020-11-28 01:36 | ECG_ITS ---
Test Reason : AFLUTTER Blood Pressure : / mmHG Vent. Rate : 084 BPM Atrial Rate : 086 BPM P-R Int : 000 ms QRS Dur : 092 ms QT Int : 382 ms P-R-T Axes : 000 -09 032 degrees QTc Int : 451 ms Artifact in tracing Normal sinus rhythm Nonspecific ST and T wave abnormality Low voltage QRS Abnormal ECG When compared with ECG of 27-NOV-2020 22:33, Due to poor quality, cannot compare Referred By: Vanna Westfall Electronically Signed By:AP MONTGOMERY
[2020-11-28] MEDS: Meclizine HCl 25 MG TABLET 50 MG PO (02:12)
[2020-11-28] MEDS: Dicyclomine HCl 10 MG CAPSULE PO (02:12)
[2020-11-28 02:48] LABS: Magnesium 1.2 mg/dL (1.6-2.6)
--- NOTE | 2020-11-28 06:28 | PC.NURSE ---
pt doesnt recall the medications he takes, not record of his medications sent with the pt.
[2020-11-28] MEDS: Lactated Ringers 1,000 ML 100 ML IVCONT ×2 (06:57→16:09)
[2020-11-28] MEDS: Enoxaparin Sodium 40 MG/0.4 ML SYRINGE SUBCUT (06:57)
[2020-11-28 07:07] LABS: Magnesium 1.1 mg/dL (1.6-2.6)
--- NOTE | 2020-11-28 07:23 | P.HPHOSP_ITS ---
History of Present Illness Date of Service: 11/28/20 Chief Complaint: Abdominal pain, diarrhea This is a 50-year-old male with an extensive past medical history as below presents to the hospital from long term with complaints of abdominal pain, diarrhea . The patient reports that he has been having diarrhea for the past week, menopause hit a day, artery, nonbloody, associated with right lower abdominal pain, he also has nausea vomiting. He reports low oral intake because everything he eats he vomits. He has no fever chills, he reports shortness of breath on exertion, no cough, no urinary symptoms and no lower extremity edema. All other review of system negative otherwise On arrival to the ED patient's blood pressure is elevated but otherwise hemodynamically stable Labs are significant for WBC count of 6.1, hemoglobin of 9.4, hematocrit 29 point vital, platelet count of 116, BUN of 21, creatinine of 1.05, magnesium of 0.8 on arrival, see UA negative. COVID-[address] shows no new worrisome finding to account for the patient's acute right lower quadrant pain. The bowel and appendix appear unremarkable. He has a unchanged elderly of the left adrenal gland, symmetrical bladder wall thickening. Past medical history: Hypertension, HLD, PVD, seizure disorder, type 2 diabetes, asthma, anxiety and depression, anemia Surgical history: orchiectomy Family history: Significant for CVD, diabetes, myocardial infarction, hypertension Social history: Comes from a long term, ambulates with walker,denies tobacco, alcohol or illicit drugs Review of Systems Review of Systems: Yes all other systems are reviewed and are negative [facility] Medical History Anemia Anxiety Asthma BMI 40.0-44.9, adult Cerebellar ataxia Depression Essential hypertension Hyperlipidemia LDL goal <100 Hypertension Hyponatremia Lactose intolerance Mental disability Morbid obesity due to excess calories Obesity Peripheral vascular disease Proteinuria Seizure disorder Type 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 Vertigo Family History Father Myocardial infarction CVD (cardiovascular disease) Diabetes mellitus Mother Diabetes mellitus HTN (hypertension) Brother In good health Sister In good health Surgical History History of orchiectomy Social History Alcohol intake: never Smoking Status: Never smoker Smoked in Last 30 Days: No Use of substances other than those prescribed or required for medical reasons: No Advance Directives: No Meds Allergies Allergy/AdvReac Type Severity Reaction Status Date / Time Sulfa (Sulfonamide Allergy Severe CHAVEZ Verified 11/27/20 20:18 Antibiotics) ALICIA REACTION, [place] Alicia trimethoprim Allergy Mild UNKNOWN Verified 11/27/20 20:18 lactose AdvReac Mild STOMACH Verified 11/27/20 20:18 UPSET Home Medications Medication Instructions Recorded Confirmed Type demeclocycline 1 tab PO BID 09/04/20 10/20/20 History fluticasone propion-salmeterol 1 inh INHALATION BID 09/04/20 10/20/20 History [Advair Diskus] hydralazine 1 tab PO BID 09/04/20 10/20/20 History lisinopril 20 mg PO DAILY 09/04/20 10/20/20 History metformin 1,000 mg PO BID 09/04/20 10/20/20 History amlodipine 5 mg tablet 5 mg PO DAILY 09/08/20 10/20/20 History blood sugar diagnostic #10 ea 09/08/20 10/11/20 History calcium polycarbophil 625 mg tablet 1,250 mg PO DAILY 09/08/20 10/20/20 History cholecalciferol (vitamin D3) 25 25 mcg PO DAILY 09/08/20 10/20/20 History mcg (1,000 unit) tablet dicyclomine 20 mg tablet 20 mg PO DAILY 09/08/20 10/20/20 History lactase 3,000 unit tablet 3,000 unit PO TID PRN tab 09/08/20 10/20/20 History mecobalamin (vitamin B12) 1,000 1,000 mcg SUBLINGUAL BEDTIME 09/08/20 10/20/20 History mcg disintegrating tablet,sublingual pen needle, diabetic 31 gauge x #1200 ea 09/08/20 10/11/20 History /16 triamcinolone acetonide 0.1 % 0.1 applic TOPICAL TID 09/08/20 10/11/20 History topical cream gabapentin 100 mg capsule 100 mg PO BID 09/22/20 10/20/20 History risperidone 3 mg tablet 3 mg PO BID 09/22/20 10/20/20 History divalproex 500 mg tablet,extended 500 mg PO DAILY 10/11/20 10/20/20 History release 24 hr propranolol 20 mg tablet 20 mg PO TID tab 10/11/20 10/20/20 History Physical Exam Vital Signs and Narrative: Vital Signs: Last Vital Signs Temp 97.7 F 11/28/20 06:08 Pulse 87 11/28/20 06:08 Resp 15 11/28/20 06:08 BP 157/84 H 11/28/20 06:08 Pulse Ox 96 11/28/20 06:08 Body Mass Index 44.4 Const: General: cooperative and no acute distress Orientation/consciousness: patient oriented x3 Eyes: General: appearance normal, both eyes and all related structures Resp: Effort & Inspection: normal respiratory effort and able to speak in complete sentences Auscultation: clear to auscultation bilaterally Cardio: Rate: regular rate Rhythm: regular rhythm GI: Palpation (GI): Soft to palpation Auscultation: normal bowel sounds Skin: General skin exam: no rashes or lesions noted Neuro: General: patient oriented x3 Cognition (Neuro): normal cognition Extrem: General: Yes normal to inspection and Yes no pedal edema Results Labs CBC and Chem 7: 11/27/20 21:40 11/27/20 21:40 Labs: Laboratory Results - last 24 hr 11/27/20 11/27/20 11/27/20 21:40 21:40 21:41 MCV 88.6 MCH 28.2 MCHC 31.9 RDW 15.1 Plt Count 116 L MPV 10.3 Immature Gran % (Auto) 0.5 H Neut % (Auto) 60.6 Lymph % (Auto) 26.6 [place] % (Auto) 10.8 Eos % (Auto) 1.0 Baso % (Auto) 0.5 Lymph # (Auto) 1.6 [place] # (Auto) 0.7 Eos # (Auto) 0.1 Baso # (Auto) 0.0 Abs Immat Gran (auto) 0.03 Absolute Neuts (auto) 3.7 Absolute Nucleated RBC 0.000 Nucleated RBC % (auto) 0.0 Hold Blue Top SEE NOTE Anion Gap 14 Estim Creat Clear Calc 106.1 Estimated GFR > 60 Random Glucose 94 Calcium 7.7 L D Magnesium 0.8 L* Total Bilirubin 0.2 Direct Bilirubin 0.2 AST 39 H ALT 25 Alkaline Phosphatase 95 D Troponin I High Sens Total Protein 5.8 L Albumin 3.2 L Urine Color Urine Appearance Urine pH Ur Specific [place] Urine Protein Urine Glucose (UA) Urine Ketones Urine Blood Urine Nitrite Ur Leukocyte Esterase Coronavirus (PCR) Influenza Type A (PCR) Influenza Type B (PCR) RSV RNA Qual (PCR) 11/27/20 11/27/20 11/27/20 21:41 21:41 21:41 MCV MCH MCHC RDW Plt Count MPV Immature Gran % (Auto) Neut % (Auto) Lymph % (Auto) [place] % (Auto) Eos % (Auto) Baso % (Auto) Lymph # (Auto) [place] # (Auto) Eos # (Auto) Baso # (Auto) Abs Immat Gran (auto) Absolute Neuts (auto) Absolute Nucleated RBC Nucleated RBC % (auto) Hold Blue Top Anion Gap Estim Creat Clear Calc Estimated GFR Random Glucose Calcium Magnesium Total Bilirubin Direct Bilirubin AST ALT Alkaline Phosphatase Troponin I High Sens 7.2 Total Protein Albumin Urine Color YELLOW Urine Appearance CLEAR Urine pH 6.0 Ur Specific [place] 1.020 Urine Protein NEG Urine Glucose (UA) NEG Urine Ketones 5 Urine Blood NEG Urine Nitrite NEG Ur Leukocyte Esterase NEG Coronavirus (PCR) POSITIVE A Influenza Type A (PCR) NEGATIVE Influenza Type B (PCR) NEGATIVE RSV RNA Qual (PCR) NEGATIVE 11/28/20 11/28/20 02:08 06:34 MCV MCH MCHC RDW Plt Count MPV Immature Gran % (Auto) Neut % (Auto) Lymph % (Auto) [place] % (Auto) Eos % (Auto) Baso % (Auto) Lymph # (Auto) [place] # (Auto) Eos # (Auto) Baso # (Auto) Abs Immat Gran (auto) Absolute Neuts (auto) Absolute Nucleated RBC Nucleated RBC % (auto) Hold Blue Top Anion Gap Estim Creat Clear Calc Estimated GFR Random Glucose Calcium Magnesium 1.2 L* 1.1 L* Total Bilirubin Direct Bilirubin AST ALT Alkaline Phosphatase Troponin I High Sens Total Protein Albumin Urine Color Urine Appearance Urine pH Ur Specific [place] Urine Protein Urine Glucose (UA) Urine Ketones Urine Blood Urine Nitrite Ur Leukocyte Esterase Coronavirus (PCR) Influenza Type A (PCR) Influenza Type B (PCR) RSV RNA Qual (PCR) Imaging Radiologist's Impressions: Impressions Chest X-Ray 11/27/20 20:23 IMPRESSION: No evidence of acute disease. Abdomen/Pelvis CT 11/27/20 21:18 IMPRESSION: No new worrisome finding to account for the patient's acute right lower quadrant pain. The bowel and the appendix appear unremarkable. Incidental note made of: 1. Unchanged nodularity left adrenal gland 2. Symmetric bladder wall thickening 3. Increasing size of coarse eggshell calcified mass right buttocks which may represent fat necrosis. Clinical correlation with recommended. Assessment and Plan (1) Abdominal pain: Qualifiers: Abdominal location: right lower quadrant Qualified Code(s): R10.31 - Right lower quadrant pain Status: Acute (2) Diarrhea: Qualifiers: Diarrhea type: unspecified type Qualified Code(s): R19.7 - Diarrhea, unspecified Status: Acute (3) Hypomagnesemia: Status: Acute (4) COVID-19: Status: Acute 50-year-old male who presents to the hospital with abdominal pain, diarrhea, found to be hypomagnesemic and COVID-19 positive # abdominal pain, diarrhea - most likely secondary to COVID-19 - unlikely to be secondary to C diff as has not that many episodes diarrhea - CT abdomen negative for any acute findings in the abd/pelvis. no appendicitis, no diverticulitis - no recent use of antibiotics Plan: - Supportive measure - Will also obtain C diff PCR to r/o - IV fluids # Hypomnagnesemia - Repleted - follow mag level # COVID 19 - No hypoxia, has cough, with no resp distress - Monitor resp status # HTN - Stable - continue home meds # DM - LDSSI - hold oral meds - diabetic diet Pt's meds needs review by pharmacy, call made to nursing staff FOr chronic issues- will continue home meds DVT ppx: Lovenox
[2020-11-28] MEDS: Magnesium Sulfate/H2O 2 GM/50 ML PIGGYBACK IV ×2 (08:30→10:09)
--- NOTE | 2020-11-28 09:48 | PC.NURSE ---
Sister Shelia phone number [phone].
[2020-11-28 11:44] LABS: Glucose, Whole Blood 109 mg/dL (60-115)
[2020-11-28 12:53] LABS: Glucose, Whole Blood 81 mg/dL (60-115)
--- NOTE | 2020-11-28 13:07 | MHC.CM.PN ---
CM spoke with patient by phone r/t IRVINID + who reports he amb with a walker and resides at a [facility]. Patient does have HCP/guardian sister Shelia Marshall [phone], requested a copy from [facility]. [facility]'s number is [phone], spoke with Brenda who will fax HCP/guardianship to our office. Also Brenda states they will provide transportation back to [facility] and all they will need is discharge summary at the time of discharge. Diagram Clerk at [facility] is Corwin Hicks [phone] but is on vacation this week. CM spoke with Shelia and instructed patient is admitted here and confirmed plan is to return to Skilled Nursing. CM will continue to follow patient for discharge needs.
[2020-11-28] MEDS: hydrALAZINE HCl 50 MG TABLET PO ×2 (14:33→20:22)
[2020-11-28] MEDS: Propranolol HCL 20 MG TABLET PO ×2 (14:33→20:21)
[2020-11-28] MEDS: Aspirin Enteric Coated 81 MG TABLET.DR PO (14:34)
[2020-11-28] MEDS: amLODIPine Besylate 5 MG TABLET PO (14:34)
[2020-11-28 16:02] LABS: Magnesium 1.8 mg/dL (1.6-2.6)
[2020-11-28] MEDS: 0.9 % Sodium Chloride Flush 3 ML SYRINGE IVFLUSH (16:09)
[2020-11-28 16:48] LABS: Glucose, Whole Blood 115 mg/dL (60-115)
[2020-11-28] MEDS: Divalproex Sodium ER 500 MG TAB.ER.24H 2000 MG PO (20:21)
[2020-11-28] MEDS: Atorvastatin Calcium 10 MG TABLET PO (20:22)
[2020-11-28] MEDS: risperiDONE 3 MG TABLET PO (20:22)
[2020-11-28] MEDS: Gabapentin 100 MG CAPSULE 200 MG PO (20:22)
[2020-11-28 20:34] LABS: Glucose, Whole Blood 130 mg/dL (60-115)
[2020-11-29] VITALS (11 sets, daily range): BP systolic 118–157; BP diastolic 71–81; PULSE 63–73; RESP 18–19; TEMP 36.2–36.7; O2SAT 96–99; BMI 44.4
[2020-11-29] MEDS: Acetaminophen 325 MG TABLET 650 MG PO ×2 (00:33→08:17)
[2020-11-29] MEDS: Lactated Ringers 1,000 ML 100 ML IVCONT (04:02)
[2020-11-29] MEDS: Enoxaparin Sodium 40 MG/0.4 ML SYRINGE SUBCUT (05:49)
[2020-11-29 06:28] LABS: MANUAL DIFF FLAG NO
[2020-11-29 06:43] LABS: Basophils Percent Auto 0.4 % (0-2); Eosinophils Absolute Auto 0.1 X10*3/uL (0.0-0.4); Eosinophils Percent Auto 1.8 % (0-4); Hematocrit 25.5 % (42-52); Hemoglobin 8.3 g/dl (14.0-18.0); Imm Gran Abs Auto 0.02 X10*3/uL (0.00-0.03); Imm Gran Pct Auto 0.4 % (0.0-0.4); Lymphocytes Absolute Auto 1.6 X10*3/uL (1.2-4.9); Lymphocytes Percent Auto 34.5 % (20-40); Mean Corpuscular HGB Conc 32.5 g/dl (31.0-36.0); Mean Corpuscular Hemoglobin 28.4 pg (27.0-33.0); Mean Corpuscular Volume 87.3 fL (80-98); Mean Platelet Volume 10.2 fL (9.4-12.4); Monocytes Absolute Auto 0.6 X10*3/uL (0.1-1.2); Monocytes Percent Auto 13.6 % (2-11); Neutrophils Absolute Auto 2.2 X10*3/uL (2.0-8.3); Neutrophils Percent Auto 49.3 % (45-73); Platelet Count 100 X10*3/uL (160-400); Red Blood Count 2.92 X10*6/uL (4.60-5.80); Red Cell Distribution Width 14.8 % (11.0-16.0); White Blood Count 4.6 X10*3/uL (4.8-10.8)
[2020-11-29 07:31] LABS: Anion Gap 8 (12-20); Blood Urea Nitrogen 14 mg/dL (9-16); Calcium 7.7 mg/dL (8.4-10.2); Carbon Dioxide 30 mmol/L (22-29); Chloride 102 mmol/L (96-108); Creatinine Clr Calc Pharmacy 139.3; Estimated Glomerular Filt Rate > 60; Glucose Random 83 mg/dL (60-115); Potassium 3.3 mmol/l (3.3-5.1); Sodium 137 mmol/L (135-145)
[2020-11-29 07:45] LABS: Glucose, Whole Blood 80 mg/dL (60-115)
[2020-11-29] MEDS: 0.9 % Sodium Chloride Flush 3 ML SYRINGE IVFLUSH ×3 (08:06→20:08)
[2020-11-29] MEDS: Fluticasone/Vilanterol 100/25 BLST.W.DEV 1 PUFF INHALE (08:09)
[2020-11-29] MEDS: Propranolol HCL 20 MG TABLET PO ×2 (09:54→15:08)
[2020-11-29] MEDS: Cholecalciferol (Vitamin D3) 25 MCG TABLET PO (09:54)
[2020-11-29] MEDS: Gabapentin 100 MG CAPSULE 200 MG PO ×2 (09:54→20:08)
[2020-11-29] MEDS: amLODIPine Besylate 5 MG TABLET PO (09:54)
[2020-11-29] MEDS: risperiDONE 3 MG TABLET PO ×2 (09:55→20:08)
[2020-11-29] MEDS: Lactase TABLET 1 TAB PO (09:55)
[2020-11-29] MEDS: hydrALAZINE HCl 50 MG TABLET PO ×2 (09:55→20:16)
[2020-11-29] MEDS: Aspirin Enteric Coated 81 MG TABLET.DR PO (09:55)
[2020-11-29 11:17] LABS: Glucose, Whole Blood 116 mg/dL (60-115)
[2020-11-29] MEDS: polyethylene glycoL 3350 17 GM POWD.PACK PO (12:33)
--- NOTE | 2020-11-29 13:25 | MHC.CM.PN ---
Patient is COVID + on room air and IVF. Discharge plan is to return to senior care who will also provide transport on discharge. CM will continue to follow for discharge needs.
--- NOTE | 2020-11-29 16:19 | HO.PM.IMPN ---
Subjective Subjective Date of Service: 11/30/20 Interval History: Patient complaining of right lower abdominal and mid epigastric pain, complaining of constipation and nausea, no other acute issues overnight no fever no chills. Review of Systems General no headache, no dizziness , no fever chills. CVS no chest pain, no palpitation. Respiratory no cough no sputum production no respiratory distress. Gastrointestinal nausea abdominal pain and constipation Physical Exam Vital Signs: Vital Signs: Last Vital Signs Temp 97.2 F 11/29/20 12:00 Pulse 71 11/29/20 15:08 Resp 18 11/29/20 12:00 BP 135/75 11/29/20 15:08 Pulse Ox 97 11/29/20 12:00 Body Mass Index 44.4 General patient resting comfortably in no acute distress. Neck is supple no JVD. CVS regular rate rhythm, Respiratory lungs clear to auscultation, no respiratory distress, no wheeze, no rhonchi. Gastrointestinal abdomen soft, mild rt. lower quad tenderness,and epigastric discomfort, no guarding , no rigidity. Extremities no clubbing,no cyanosis, or edema. Neuro nonfocal, speech clear. Skin no rash Objective Data Current Medications Generic Name Dose Route Start Last Admin Trade Name Freq PRN Reason Stop Dose Admin Acetaminophen 650 mg 11/28/20 06:08 11/29/20 08:17 Acetaminophen 325 Mg Tablet PO 650 mg Q6H PRN Administration Pain, Mild (Pain Scale 1-3) Albuterol Sulfate 2 puff 11/28/20 14:02 Albuterol Sulfate 90 Mcg 8 Gm Inhaler INHALE Q6H PRN Shortness Of Breath Or Wheezing Amlodipine Besylate 5 mg 11/28/20 14:15 11/29/20 09:54 Amlodipine Besylate 5 Mg Tablet PO 5 mg DAILY [facility] Administration Protocol Aspirin 81 mg 11/28/20 14:15 11/29/20 09:55 Aspirin Enteric Coated 81 Mg Tablet. PO 81 mg DAILY [facility] Administration Atorvastatin Calcium 10 mg 11/28/20 21:00 11/28/20 20:22 Atorvastatin Calcium 10 Mg Tablet PO 10 mg BEDTIME [facility] Administration Divalproex Sodium 2,000 mg 11/28/20 21:00 11/28/20 20:21 Divalproex Sodium Er 500 Mg Tab.Er.24h PO 2,000 mg BEDTIME [facility] Administration Enoxaparin Sodium 40 mg 11/28/20 06:15 11/29/20 05:49 Enoxaparin Sodium 40 Mg/0.4 Ml Syringe SUBCUT 40 mg Q24H [facility] Administration Fluticasone/Vilanterol 1 puff 11/29/20 08:00 11/29/20 08:09 Fluticasone/Vilanterol 100/25 Blst.W.Dev INHALE 1 puff RDAILY [facility] Administration Gabapentin 200 mg 11/28/20 21:00 11/29/20 09:54 Gabapentin 100 Mg Capsule PO 200 mg BID [facility] Administration Hydralazine HCl 50 mg 11/28/20 14:15 11/29/20 09:55 Hydralazine Hcl 50 Mg Tablet PO 50 mg BID [facility] Administration Protocol Insulin Human Lispro 0 unit 11/28/20 07:30 11/29/20 11:24 Insulin Lispro 100 Unit/Ml 3 Ml Vial SUBCUT Not Given QIDACHS [facility] Protocol Lactase 1 tab 11/28/20 14:02 11/29/20 09:55 Lactase Tablet PO 1 tab TID PRN Administration Lactose Intolerance Omeprazole 20 mg 11/30/20 06:30 Omeprazole 20 Mg Capsule. PO DAILY@0630 [facility] Ondansetron HCl 4 mg 11/28/20 06:08 Ondansetron Hcl 4 Mg/2 Ml Vial IVPUSH Q8H PRN Nausea and Vomiting Pharmacy Consult 1 each 11/28/20 12:44 Consult Rx Perform Med Rec MISCELLANE ONCE PRN Consult order Polyethylene Glycol 17 gm 11/30/20 09:00 11/29/20 12:33 Polyethylene Glycol 3350 17 Gm Powd.Pack PO 17 gm DAILY [facility] Administration Propranolol HCl 20 mg 11/28/20 15:00 11/29/20 15:08 Propranolol Hcl 20 Mg Tablet PO 20 mg TID [facility] Administration Protocol Risperidone 3 mg 11/28/20 21:00 11/29/20 09:55 Risperidone 3 Mg Tablet PO 3 mg BID [facility] Administration Sodium Chloride 3 ml 11/28/20 08:00 11/29/20 15:20 0.9 % Sodium Chloride Flush 3 Ml Syringe IVFLUSH 3 ml QSHIFT [facility] Administration Vitamin D 25 mcg 11/29/20 09:00 11/29/20 09:54 Cholecalciferol (Vitamin D3) 25 Mcg Tablet PO 25 mcg DAILY [facility] Administration Labs CBC & Chem 7: 01/21/21 05:14 11/30/20 05:14 Assessment and Plan (1) Abdominal pain: Status: Acute (2) Hypomagnesemia: Status: Acute (3) COVID-19: Problem details: November 2020 Status: Acute Assessment and Plan: 50-year-old male who presents to the hospital with abdominal pain, diarrhea, found to be hypomagnesemic and COVID-19 positive # Abdominal pain Diarrhea resolved, as per patient he is constipated and complaining of lower abdominal discomfort and epigastric pain. CT abdomen negative for any acute findings in the abd/pelvis. no appendicitis, no diverticulitis No diarrhea noted C diff not collected, will DC IV fluids, add MiraLax and as needed lactulose, add PPI for possible gastritis, follow clinical course # Hypomnagnesemia - Repleted mg level 1.8 # COVID 19 - No hypoxia, has cough, with no resp distress follow clinical course # HTN - Stable continue home meds # DM blood sugars stable continue diabetic diet and insulin sliding scale For chronic issues- will continue home meds DVT ppx: Lovenox
--- NOTE | 2020-11-29 16:23 | PC.NURSE ---
pt has been complaining of abdominal pain most of the day. he has been medicated with laxative and had moderate result. Pt continues to complain of pain. HE has been able to tolerate po food and fluid, has been using hot pack for comfort and got medication for pain with some refief for a short time. Will continue to monitor
[2020-11-29 17:13] LABS: Glucose, Whole Blood 140 mg/dL (60-115)
[2020-11-29] MEDS: Dicyclomine HCl 10 MG CAPSULE 20 MG PO ×2 (18:07→22:39)
[2020-11-29] MEDS: traMADoL HCL 50 MG TABLET PO (20:07)
[2020-11-29] MEDS: Divalproex Sodium ER 500 MG TAB.ER.24H 2000 MG PO (20:08)
[2020-11-29] MEDS: Atorvastatin Calcium 10 MG TABLET PO (20:08)
[2020-11-29 20:46] LABS: Glucose, Whole Blood 121 mg/dL (60-115)
[2020-11-30] VITALS (10 sets, daily range): BP systolic 129–159; BP diastolic 69–86; PULSE 65–87; RESP 18–20; TEMP 36.1–36.7; O2SAT 96–100
[2020-11-30] MEDS: Enoxaparin Sodium 40 MG/0.4 ML SYRINGE SUBCUT (05:38)
[2020-11-30] MEDS: Dicyclomine HCl 10 MG CAPSULE 20 MG PO ×4 (05:38→22:17)
[2020-11-30] MEDS: Omeprazole 20 MG CAPSULE.DR PO (05:38)
[2020-11-30] MEDS: Acetaminophen 325 MG TABLET 650 MG PO ×2 (05:43→22:25)
[2020-11-30 06:15] LABS: MANUAL DIFF FLAG NO
[2020-11-30 06:27] LABS: Basophils Percent Auto 0.7 % (0-2); Eosinophils Absolute Auto 0.1 X10*3/uL (0.0-0.4); Eosinophils Percent Auto 1.5 % (0-4); Hemoglobin 8.5 g/dl (14.0-18.0); Imm Gran Abs Auto 0.02 X10*3/uL (0.00-0.03); Imm Gran Pct Auto 0.4 % (0.0-0.4); Lymphocytes Absolute Auto 1.8 X10*3/uL (1.2-4.9); Lymphocytes Percent Auto 38.5 % (20-40); Mean Corpuscular HGB Conc 32.7 g/dl (31.0-36.0); Mean Corpuscular Hemoglobin 28.3 pg (27.0-33.0); Mean Corpuscular Volume 86.7 fL (80-98); Mean Platelet Volume 10.5 fL (9.4-12.4); Monocytes Absolute Auto 0.6 X10*3/uL (0.1-1.2); Monocytes Percent Auto 13.5 % (2-11); Neutrophils Absolute Auto 2.1 X10*3/uL (2.0-8.3); Neutrophils Percent Auto 45.4 % (45-73); Platelet Count 108 X10*3/uL (160-400); Red Cell Distribution Width 14.8 % (11.0-16.0); White Blood Count 4.6 X10*3/uL (4.8-10.8)
[2020-11-30 07:15] LABS: Anion Gap 12 (12-20); Blood Urea Nitrogen 15 mg/dL (9-16); Calcium 7.7 mg/dL (8.4-10.2); Carbon Dioxide 25 mmol/L (22-29); Chloride 104 mmol/L (96-108); Creatinine Clr Calc Pharmacy 142.9; Estimated Glomerular Filt Rate > 60; Glucose Random 116 mg/dL (60-115); Potassium 3.7 mmol/l (3.3-5.1); Sodium 137 mmol/L (135-145)
[2020-11-30] MEDS: Fluticasone/Vilanterol 100/25 BLST.W.DEV 1 PUFF INHALE (07:58)
[2020-11-30 08:09] LABS: Glucose, Whole Blood 96 mg/dL (60-115)
[2020-11-30] MEDS: polyethylene glycoL 3350 17 GM POWD.PACK PO (09:24)
[2020-11-30] MEDS: 0.9 % Sodium Chloride Flush 3 ML SYRINGE IVFLUSH ×3 (09:25→22:21)
[2020-11-30] MEDS: risperiDONE 3 MG TABLET PO ×2 (09:25→22:20)
[2020-11-30] MEDS: Gabapentin 100 MG CAPSULE 200 MG PO ×2 (09:26→22:20)
[2020-11-30] MEDS: amLODIPine Besylate 5 MG TABLET PO (09:26)
[2020-11-30] MEDS: hydrALAZINE HCl 50 MG TABLET PO ×2 (09:27→22:23)
[2020-11-30] MEDS: Cholecalciferol (Vitamin D3) 25 MCG TABLET PO (09:27)
[2020-11-30] MEDS: Propranolol HCL 20 MG TABLET PO ×3 (09:27→22:21)
[2020-11-30] MEDS: Aspirin Enteric Coated 81 MG TABLET.DR PO (09:27)
[2020-11-30] MEDS: Cyanocobalamin (Vitamin B-12) 1,000 MCG TABLET 1000 MCG PO (09:28)
[2020-11-30] MEDS: Lactase TABLET 1 TAB PO (11:07)
[2020-11-30 11:15] LABS: Glucose, Whole Blood 124 mg/dL (60-115)
--- NOTE | 2020-11-30 14:25 | HO.PM.IMPN ---
Subjective Subjective Date of Service: 11/30/20 Interval History: Patient complaining of right lower abdominal and mid epigastric pain, complaining of constipation and nausea, no other acute issues overnight no fever no chills. Review of Systems General no headache, no dizziness , no fever chills. CVS no chest pain, no palpitation. Respiratory no cough no sputum production no respiratory distress. Gastrointestinal no nausea, lower abdominal pain, no constipation, no diarrhea Physical Exam Vital Signs: Vital Signs: Last Vital Signs Temp 98.0 F 11/30/20 12:00 Pulse 83 11/30/20 12:00 Resp 20 11/30/20 12:00 BP 159/86 H 11/30/20 12:00 Pulse Ox 100 11/30/20 12:00 Body Mass Index 44.4 Const: Other: General patient resting comfortably in no acute distress. Neck is supple no JVD. CVS regular rate rhythm, Respiratory lungs clear to auscultation, no respiratory distress Gastrointestinal abdomen soft, patient complaining of pain with superficial touch to abdominal wall, no palpable mass, bowel sounds audible, no guarding , no rigidity. Extremities no clubbing cyanosis or edema. Neuro nonfocal, speech clear Skin no rash Objective Data Current Medications Generic Name Dose Route Start Last Admin Trade Name Freq PRN Reason Stop Dose Admin Acetaminophen 650 mg 11/28/20 06:08 11/30/20 05:43 Acetaminophen 325 Mg Tablet PO 650 mg Q6H PRN Administration Pain, Mild (Pain Scale 1-3) Albuterol Sulfate 2 puff 11/28/20 14:02 Albuterol Sulfate 90 Mcg 8 Gm Inhaler INHALE Q6H PRN Shortness Of Breath Or Wheezing Amlodipine Besylate 5 mg 11/28/20 14:15 11/30/20 09:26 Amlodipine Besylate 5 Mg Tablet PO 5 mg DAILY [facility] Administration Protocol Aspirin 81 mg 11/28/20 14:15 11/30/20 09:27 Aspirin Enteric Coated 81 Mg Tablet. PO 81 mg DAILY [facility] Administration Atorvastatin Calcium 10 mg 11/28/20 21:00 11/29/20 20:08 Atorvastatin Calcium 10 Mg Tablet PO 10 mg BEDTIME [facility] Administration Cyanocobalamin 1,000 mcg 11/30/20 09:00 11/30/20 09:28 Cyanocobalamin (Vitamin B-12) 1,000 Mcg Tablet PO 1,000 mcg DAILY [facility] Administration Dicyclomine HCl 20 mg 11/29/20 17:00 11/30/20 11:07 Dicyclomine Hcl 10 Mg Capsule PO 20 mg Q6H [facility] Administration Divalproex Sodium 2,000 mg 11/28/20 21:00 11/29/20 20:08 Divalproex Sodium Er 500 Mg Tab.Er.24h PO 2,000 mg BEDTIME [facility] Administration Enoxaparin Sodium 40 mg 11/28/20 06:15 11/30/20 05:38 Enoxaparin Sodium 40 Mg/0.4 Ml Syringe SUBCUT 40 mg Q24H [facility] Administration Fluticasone/Vilanterol 1 puff 11/29/20 08:00 11/30/20 07:58 Fluticasone/Vilanterol 100/25 Blst.W.Dev INHALE 1 puff RDAILY [facility] Administration Gabapentin 200 mg 11/28/20 21:00 11/30/20 09:26 Gabapentin 100 Mg Capsule PO 200 mg BID [facility] Administration Hydralazine HCl 50 mg 11/28/20 14:15 11/30/20 09:27 Hydralazine Hcl 50 Mg Tablet PO 50 mg BID [facility] Administration Protocol Insulin Human Lispro 0 unit 11/28/20 07:30 11/30/20 11:13 Insulin Lispro 100 Unit/Ml 3 Ml Vial SUBCUT Not Given QIDACHS [facility] Protocol Lactase 1 tab 11/28/20 14:02 11/30/20 11:07 Lactase Tablet PO 1 tab TID PRN Administration Lactose Intolerance Pt Own: 1 each 11/29/20 21:00 11/30/20 09:17 Demeclocycline 300mg PO 1 each Tab BID [facility] Administration Protocol Omeprazole 20 mg 11/30/20 06:30 11/30/20 05:38 Omeprazole 20 Mg Capsule.Dr PO 20 mg DAILY@0630 [facility] Administration Ondansetron HCl 4 mg 11/28/20 06:08 Ondansetron Hcl 4 Mg/2 Ml Vial IVPUSH Q8H PRN Nausea and Vomiting Pharmacy Consult 1 each 11/28/20 12:44 Consult Rx Perform Med Rec MISCELLANE ONCE PRN Consult order Polyethylene Glycol 17 gm 11/30/20 09:00 11/30/20 09:24 Polyethylene Glycol 3350 17 Gm Powd.Pack PO 17 gm DAILY [facility] Administration Propranolol HCl 20 mg 11/28/20 15:00 11/30/20 13:50 Propranolol Hcl 20 Mg Tablet PO 20 mg TID [facility] Administration Protocol Risperidone 3 mg 11/28/20 21:00 11/30/20 09:25 Risperidone 3 Mg Tablet PO 3 mg BID [facility] Administration Sodium Chloride 3 ml 11/28/20 08:00 11/30/20 09:25 0.9 % Sodium Chloride Flush 3 Ml Syringe IVFLUSH 3 ml QSHIFT [facility] Administration Vitamin D 25 mcg 11/29/20 09:00 11/30/20 09:27 Cholecalciferol (Vitamin D3) 25 Mcg Tablet PO 25 mcg DAILY [facility] Administration Labs CBC & Chem 7: 11/30/20 05:14 11/30/20 05:14 Assessment and Plan (1) Abdominal pain: Status: Acute (2) Hypomagnesemia: Status: Acute (3) COVID-19: Problem details: November 2020 Status: Acute Assessment and Plan: 50-year-old male who presents to the hospital with abdominal pain, diarrhea, found to be hypomagnesemic and COVID-19 positive # Abdominal pain Seems patient has chronic superficial abdominal discomfort, did not notice to have any nausea, vomiting,or diarrhea tolerating diet Question pain for attention, has normal abdominal exam, CT abdomen negative for any acute findings in the abd/pelvis. no appendicitis, no diverticulitis No diarrhea noted, C diff not collected, continue MiraLax and PPI follow clinical course # Hypomnagnesemia - Repleted mg level 1.8 # COVID 19 - No hypoxia, has cough, with no resp distress follow clinical course # HTN - Stable continue home meds # DM blood sugars stable continue diabetic diet and insulin sliding scale # recurrent fall as per patient he has been falling a lot therefore obtain a PT eval they have recommended short-term rehab due to decreased lower extremity strength and high risk for fall Called patient's sister Shelia morocho [phone] and updated her about patient's clinical condition and decision for rehab placement. For chronic issues- will continue home meds DVT ppx: Lovenox
--- NOTE | 2020-11-30 15:06 | MHC.CM.PN ---
CM spoke with patient's guardian Shelia re: PT is recommending STR. Shelia's choices are [facility], [facility] and [facility]. Referral made via [employer]. Shelia states her guardianship does have a right to Place . TC to senior care, no answer. Need a 2nd request for a copy of guardianship be faxed to us. CM will continue to follow patient for discharge needs.
[2020-11-30 17:11] LABS: Glucose, Whole Blood 159 mg/dL (60-115)
[2020-11-30 20:18] LABS: Glucose, Whole Blood 172 mg/dL (60-115)
[2020-11-30] MEDS: Divalproex Sodium ER 500 MG TAB.ER.24H 2000 MG PO (22:17)
[2020-11-30] MEDS: Atorvastatin Calcium 10 MG TABLET PO (22:21)
[2020-11-30] MEDS: Insulin Lispro 100 UNIT/ML 3 ML VIAL SUBCUT (22:21)
[2020-12-01] VITALS (8 sets, daily range): BP systolic 152–177; BP diastolic 80–94; PULSE 67–80; RESP 18–20; TEMP 36.1–36.8; O2SAT 96–99
--- NOTE | 2020-12-01 | XR_ITS ---
EXAMINATION: XR ANKLE, LEFT CLINICAL INFORMATION: Left ankle pain. COMPARISON: None TECHNIQUE: AP, lateral, and mortise views of the left ankle. FINDINGS: There is no acute fracture, dislocation or subluxation seen. The calcified density left distal tibia measuring 2.4 cm. There is mild widening of the lateral ankle mortise likely from ligamentous tear. Lateral malleolar fracture suspected XR/XR ankle LT min 3V IMPRESSION: Aspect lateral malleolar fracture with bimalleolar soft tissue swelling. There is widening of lateral ankle mortise joint space. Calcified density left distal tibia likely bone island or small old infarct
[2020-12-01] MEDS: Dicyclomine HCl 10 MG CAPSULE 20 MG PO ×4 (06:07→22:00)
[2020-12-01] MEDS: Enoxaparin Sodium 40 MG/0.4 ML SYRINGE SUBCUT (06:07)
[2020-12-01] MEDS: Omeprazole 20 MG CAPSULE.DR PO (06:07)
[2020-12-01 08:36] LABS: Glucose, Whole Blood 101 mg/dL (60-115)
[2020-12-01] MEDS: polyethylene glycoL 3350 17 GM POWD.PACK PO (09:06)
[2020-12-01] MEDS: amLODIPine Besylate 5 MG TABLET PO (09:07)
[2020-12-01] MEDS: hydrALAZINE HCl 50 MG TABLET PO ×2 (09:08→22:00)
[2020-12-01] MEDS: risperiDONE 3 MG TABLET PO ×2 (09:13→22:00)
[2020-12-01] MEDS: Propranolol HCL 20 MG TABLET PO ×3 (09:13→21:59)
[2020-12-01] MEDS: Cyanocobalamin (Vitamin B-12) 1,000 MCG TABLET 1000 MCG PO (09:13)
[2020-12-01] MEDS: Cholecalciferol (Vitamin D3) 25 MCG TABLET PO (09:13)
[2020-12-01] MEDS: Aspirin Enteric Coated 81 MG TABLET.DR PO (09:13)
[2020-12-01] MEDS: 0.9 % Sodium Chloride Flush 3 ML SYRINGE IVFLUSH ×2 (09:19→15:51)
[2020-12-01] MEDS: Gabapentin 100 MG CAPSULE 200 MG PO ×2 (09:20→22:01)
[2020-12-01] MEDS: Fluticasone/Vilanterol 100/25 BLST.W.DEV 1 PUFF INHALE (09:23)
[2020-12-01 12:14] LABS: Glucose, Whole Blood 125 mg/dL (60-115)
--- NOTE | 2020-12-01 13:16 | HO.PM.IMPN ---
Subjective Subjective Date of Service: 12/02/20 Interval History: Patient complaining of right lower abdominal and mid epigastric pain, complaining of constipation and nausea, no other acute issues overnight no fever no chills. Review of Systems General no headache, no dizziness , no fever chills. CVS no chest pain, no palpitation. Respiratory no cough no sputum production no respiratory distress. Gastrointestinal no nausea, right lower quadrant abdominal pain, no constipation, no diarrhea Physical Exam Vital Signs: Vital Signs: Last Vital Signs Temp 97.7 F 12/01/20 11:48 Pulse 77 12/01/20 11:48 Resp 20 12/01/20 11:48 BP 177/94 H 12/01/20 11:48 Pulse Ox 96 12/01/20 11:48 Body Mass Index 44.4 Const: Other: General patient resting comfortably in no acute distress. Neck is supple no JVD. CVS regular rate rhythm, Respiratory lungs clear to auscultation, no respiratory distress Gastrointestinal abdomen soft, right lower quadrant with no tenderness to palpation,no palpable mass, bowel sounds audible, no guarding , no rigidity. Extremities left ankle swelling, and limited range of motion Neuro nonfocal, speech clear Skin no rash Objective Data Current Medications Generic Name Dose Route Start Last Admin Trade Name Freq PRN Reason Stop Dose Admin Acetaminophen 650 mg 11/28/20 06:08 11/30/20 22:25 Acetaminophen 325 Mg Tablet PO 650 mg Q6H PRN Administration Pain, Mild (Pain Scale 1-3) Albuterol Sulfate 2 puff 11/28/20 14:02 Albuterol Sulfate 90 Mcg 8 Gm Inhaler INHALE Q6H PRN Shortness Of Breath Or Wheezing Amlodipine Besylate 5 mg 11/28/20 14:15 12/01/20 09:07 Amlodipine Besylate 5 Mg Tablet PO 5 mg DAILY [facility] Administration Protocol Aspirin 81 mg 11/28/20 14:15 12/01/20 09:13 Aspirin Enteric Coated 81 Mg Tablet. PO 81 mg DAILY [facility] Administration Atorvastatin Calcium 10 mg 11/28/20 21:00 11/30/20 22:21 Atorvastatin Calcium 10 Mg Tablet PO 10 mg BEDTIME [facility] Administration Cyanocobalamin 1,000 mcg 11/30/20 09:00 12/01/20 09:13 Cyanocobalamin (Vitamin B-12) 1,000 Mcg Tablet PO 1,000 mcg DAILY [facility] Administration Dicyclomine HCl 20 mg 11/29/20 17:00 12/01/20 06:07 Dicyclomine Hcl 10 Mg Capsule PO 20 mg Q6H [facility] Administration Divalproex Sodium 2,000 mg 11/28/20 21:00 11/30/20 22:17 Divalproex Sodium Er 500 Mg Tab.Er.24h PO 2,000 mg BEDTIME [facility] Administration Enoxaparin Sodium 40 mg 11/28/20 06:15 12/01/20 06:07 Enoxaparin Sodium 40 Mg/0.4 Ml Syringe SUBCUT 40 mg Q24H [facility] Administration Fluticasone/Vilanterol 1 puff 11/29/20 08:00 12/01/20 09:23 Fluticasone/Vilanterol 100/25 Blst.W.Dev INHALE 1 puff RDAILY [facility] Administration Gabapentin 200 mg 11/28/20 21:00 12/01/20 09:20 Gabapentin 100 Mg Capsule PO 200 mg BID [facility] Administration Hydralazine HCl 50 mg 11/28/20 14:15 12/01/20 09:08 Hydralazine Hcl 50 Mg Tablet PO 50 mg BID [facility] Administration Protocol Insulin Human Lispro 0 unit 11/28/20 07:30 12/01/20 12:24 Insulin Lispro 100 Unit/Ml 3 Ml Vial SUBCUT Not Given QIDACHS [facility] Protocol Lactase 1 tab 11/28/20 14:02 11/30/20 11:07 Lactase Tablet PO 1 tab TID PRN Administration Lactose Intolerance Pt Own: 1 each 11/29/20 21:00 12/01/20 09:17 Demeclocycline 300mg PO 1 each Tab BID [facility] Administration Protocol Omeprazole 20 mg 11/30/20 06:30 12/01/20 06:07 Omeprazole 20 Mg Capsule.Dr PO 20 mg DAILY@0630 [facility] Administration Ondansetron HCl 4 mg 11/28/20 06:08 Ondansetron Hcl 4 Mg/2 Ml Vial IVPUSH Q8H PRN Nausea and Vomiting Pharmacy Consult 1 each 11/28/20 12:44 Consult Rx Perform Med Rec MISCELLANE ONCE PRN Consult order Polyethylene Glycol 17 gm 11/30/20 09:00 12/01/20 09:06 Polyethylene Glycol 3350 17 Gm Powd.Pack PO 17 gm DAILY [facility] Administration Propranolol HCl 20 mg 11/28/20 15:00 12/01/20 09:13 Propranolol Hcl 20 Mg Tablet PO 20 mg TID [facility] Administration Protocol Risperidone 3 mg 11/28/20 21:00 12/01/20 09:13 Risperidone 3 Mg Tablet PO 3 mg BID [facility] Administration Sodium Chloride 3 ml 11/28/20 08:00 12/01/20 09:19 0.9 % Sodium Chloride Flush 3 Ml Syringe IVFLUSH 3 ml QSHIFT [facility] Administration Vitamin D 25 mcg 11/29/20 09:00 12/01/20 09:13 Cholecalciferol (Vitamin D3) 25 Mcg Tablet PO 25 mcg DAILY [facility] Administration Labs CBC & Chem 7: 11/30/20 05:14 11/30/20 05:14 Assessment and Plan (1) Abdominal pain: Status: Acute (2) Hypomagnesemia: Status: Acute (3) COVID-19: Problem details: November 2020 Status: Acute Assessment and Plan: 50-year-old male who presents to the hospital with abdominal pain, diarrhea, found to be hypomagnesemic and COVID-19 positive # Abdominal pain Persistent right lower quadrant pain that seems chronic, persistent tenderness to superficial palpation, no nausea, vomiting,or diarrhea tolerating diet, had regular bowel movement Question pain for attention, has normal abdominal exam, CT abdomen negative for any acute findings in the abd/pelvis. no appendicitis, no diverticulitis No diarrhea noted, C diff not collected, continue MiraLax and PPI follow clinical course # left ankle pain, x-ray of ankle suspicion for lateral malleolar fracture with by malleolar soft tissue swelling, will consult Orthopedic surgery, pain management # Hypomnagnesemia - Repleted mg level 1.8 # COVID 19 - No hypoxia, has cough, with no resp distress follow clinical course # HTN - Stable continue home meds # DM blood sugars stable continue diabetic diet and insulin sliding scale # recurrent fall as per patient he has been falling a lot therefore obtain a PT eval they have recommended short-term rehab due to decreased lower extremity strength and high risk for fall Called patient's sister Shelia morocho [phone] yesterday and updated her about patient's clinical condition and decision for rehab placement. For chronic issues- will continue home meds DVT ppx: Lovenox
--- NOTE | 2020-12-01 14:35 | MHC.CM.PN ---
[facility] is following patient for discharge, no bed available at this time. Updates sent. Updated HCP Shelia. CM will continue to follow for discharge needs.
[2020-12-01 16:23] LABS: Glucose, Whole Blood 161 mg/dL (60-115)
[2020-12-01] MEDS: Insulin Lispro 100 UNIT/ML 3 ML VIAL SUBCUT ×2 (17:45→21:58)
[2020-12-01 20:17] LABS: Glucose, Whole Blood 197 mg/dL (60-115)
[2020-12-01] MEDS: Atorvastatin Calcium 10 MG TABLET PO (21:59)
[2020-12-01] MEDS: Divalproex Sodium ER 500 MG TAB.ER.24H 2000 MG PO (22:01)
[2020-12-02] VITALS (12 sets, daily range): BP systolic 134–151; BP diastolic 74–93; PULSE 72–98; RESP 18–20; TEMP 36.1–36.8; O2SAT 99–100
[2020-12-02] MEDS: 0.9 % Sodium Chloride Flush 3 ML SYRINGE IVFLUSH ×3 (00:12→17:09)
[2020-12-02] MEDS: Dicyclomine HCl 10 MG CAPSULE 20 MG PO ×4 (05:59→22:00)
[2020-12-02] MEDS: Omeprazole 20 MG CAPSULE.DR PO (05:59)
[2020-12-02] MEDS: Enoxaparin Sodium 40 MG/0.4 ML SYRINGE SUBCUT (06:00)
[2020-12-02 08:27] LABS: Glucose, Whole Blood 181 mg/dL (60-115)
[2020-12-02] MEDS: Fluticasone/Vilanterol 100/25 BLST.W.DEV 1 PUFF INHALE ×2 (08:32→08:36)
[2020-12-02] MEDS: Insulin Lispro 100 UNIT/ML 3 ML VIAL SUBCUT ×3 (09:48→22:00)
[2020-12-02] MEDS: Gabapentin 100 MG CAPSULE 200 MG PO ×2 (09:49→22:00)
[2020-12-02] MEDS: Cholecalciferol (Vitamin D3) 25 MCG TABLET PO (09:50)
[2020-12-02] MEDS: Aspirin Enteric Coated 81 MG TABLET.DR PO (09:50)
[2020-12-02] MEDS: risperiDONE 3 MG TABLET PO ×2 (09:51→22:00)
[2020-12-02] MEDS: Cyanocobalamin (Vitamin B-12) 1,000 MCG TABLET 1000 MCG PO (09:51)
[2020-12-02] MEDS: amLODIPine Besylate 5 MG TABLET PO (09:51)
[2020-12-02] MEDS: hydrALAZINE HCl 50 MG TABLET PO ×3 (09:51→22:00)
[2020-12-02] MEDS: Propranolol HCL 20 MG TABLET PO ×3 (09:52→22:25)
[2020-12-02 11:53] LABS: Glucose, Whole Blood 121 mg/dL (60-115)
--- NOTE | 2020-12-02 15:59 | HO.PM.IMPN ---
Subjective Subjective Date of Service: 12/02/20 Interval History: Patient complaining of right lower quadrant pain today, had a bowel movement this morning no improvement and pain after bowel movement, took 100% of diet no nausea no vomiting, denies left ankle pain today's wearing his ankle brace/ boots, Review of Systems General no headache, no dizziness , no fever chills. CVS no chest pain, no palpitation. Respiratory no cough no sputum production no respiratory distress. Gastrointestinal no nausea, right lower quadrant abdominal pain, no constipation, no diarrhea Physical Exam Vital Signs: Vital Signs: Last Vital Signs Temp 98.1 F 12/02/20 12:00 Pulse 78 12/02/20 12:00 Resp 18 12/02/20 12:00 BP 151/93 H 12/02/20 12:00 Pulse Ox 99 12/02/20 12:00 Body Mass Index 44.4 General patient resting comfortably in no acute distress. Neck is supple no JVD. CVS regular rate rhythm, Respiratory lungs clear to auscultation, no respiratory distress Gastrointestinal abdomen soft, right lower quadrant with no tenderness to palpation,no palpable mass, bowel sounds audible, no guarding , no rigidity. Extremities left ankle in brace and boot, no pain Neuro nonfocal, speech clear Skin no rash Objective Data Current Medications Generic Name Dose Route Start Last Admin Trade Name Josephq PRN Reason Stop Dose Admin Acetaminophen 650 mg 11/28/20 06:08 11/30/20 22:25 Acetaminophen 325 Mg Tablet PO 650 mg Q6H PRN Administration Pain, Mild (Pain Scale 1-3) Albuterol Sulfate 2 puff 11/28/20 14:02 Albuterol Sulfate 90 Mcg 8 Gm Inhaler INHALE Q6H PRN Shortness Of Breath Or Wheezing Amlodipine Besylate 5 mg 11/28/20 14:15 12/02/20 09:51 Amlodipine Besylate 5 Mg Tablet PO 5 mg DAILY PILO Administration Protocol Aspirin 81 mg 11/28/20 14:15 12/02/20 09:50 Aspirin Enteric Coated 81 Mg Tablet. PO 81 mg DAILY PILO Administration Atorvastatin Calcium 10 mg 11/28/20 21:00 12/01/20 21:59 Atorvastatin Calcium 10 Mg Tablet PO 10 mg BEDTIME P[facility]O Administration Cyanocobalamin 1,000 mcg 11/30/20 09:00 12/02/20 09:51 Cyanocobalamin (Vitamin B-12) 1,000 Mcg Tablet PO 1,000 mcg DAILY [facility]O Administration Dicyclomine HCl 20 mg 11/29/20 17:00 12/02/20 12:38 Dicyclomine Hcl 10 Mg Capsule PO 20 mg Q6H [facility] Administration Divalproex Sodium 2,000 mg 11/28/20 21:00 12/01/20 22:01 Divalproex Sodium Er 500 Mg Tab.Er.24h PO 2,000 mg BEDTIME PILO Administration Enoxaparin Sodium 40 mg 11/28/20 06:15 12/02/20 06:00 Enoxaparin Sodium 40 Mg/0.4 Ml Syringe SUBCUT 40 mg Q24H [facility]O Administration Fluticasone/Vilanterol 1 puff 11/29/20 08:00 12/02/20 08:36 Fluticasone/Vilanterol 100/25 Blst.W.Dev INHALE 1 puff RDAILY [facility] Administration Gabapentin 200 mg 11/28/20 21:00 12/02/20 09:49 Gabapentin 100 Mg Capsule PO 200 mg BID [facility] Administration Hydralazine HCl 50 mg 12/02/20 09:00 12/02/20 09:51 Hydralazine Hcl 50 Mg Tablet PO 50 mg TID [facility] Administration Protocol Insulin Human Lispro 0 unit 11/28/20 07:30 12/02/20 11:44 Insulin Lispro 100 Unit/Ml 3 Ml Vial SUBCUT Not Given QIDACHS [facility] Protocol Lactase 1 tab 11/28/20 14:02 11/30/20 11:07 Lactase Tablet PO 1 tab TID PRN Administration Lactose Intolerance Pt Own: 1 each 11/29/20 21:00 12/02/20 09:50 Demeclocycline 300mg PO 1 each Tab BID [facility] Administration Protocol Omeprazole 20 mg 11/30/20 06:30 12/02/20 05:59 Omeprazole 20 Mg Capsule.Dr PO 20 mg DAILY@0630 [facility] Administration Ondansetron HCl 4 mg 11/28/20 06:08 Ondansetron Hcl 4 Mg/2 Ml Vial IVPUSH Q8H PRN Nausea and Vomiting Pharmacy Consult 1 each 11/28/20 12:44 Consult Rx Perform Med Rec MISCELLANE ONCE PRN Consult order Polyethylene Glycol 17 gm 11/30/20 09:00 01/22/21 09:06 Polyethylene Glycol 3350 17 Gm Powd.Pack PO 17 gm DAILY [facility] Administration Propranolol HCl 20 mg 11/28/20 15:00 12/02/20 09:52 Propranolol Hcl 20 Mg Tablet PO 20 mg TID [facility] Administration Protocol Risperidone 3 mg 11/28/20 21:00 12/02/20 09:51 Risperidone 3 Mg Tablet PO 3 mg BID [facility] Administration Sodium Chloride 3 ml 11/28/20 08:00 12/02/20 09:48 0.9 % Sodium Chloride Flush 3 Ml Syringe IVFLUSH 3 ml QSHIFT [facility] Administration Vitamin D 25 mcg 11/29/20 09:00 12/02/20 09:50 Cholecalciferol (Vitamin D3) 25 Mcg Tablet PO 25 mcg DAILY [facility] Administration Labs CBC & Chem 7: 11/30/20 05:14 11/30/20 05:14 Assessment and Plan (1) Abdominal pain: Status: Acute (2) Hypomagnesemia: Status: Acute (3) COVID-19: Problem details: November 2020 Status: Acute Assessment and Plan: 50-year-old male who presents to the hospital with abdominal pain, diarrhea, found to be hypomagnesemic and COVID-19 positive # Abdominal pain Persistent right lower quadrant pain that seems chronic, no nausea, vomiting,or diarrhea tolerating diet, had regular bowel movement Question pain for attention, has normal abdominal exam, CT abdomen negative for any acute findings in the abd/pelvis. no appendicitis, no diverticulitis No diarrhea noted, C diff not collected, continue MiraLax and PPI follow clinical course # left ankle pain, resolved x-ray of ankle suspicion for lateral malleolar fracture with by malleolar soft tissue swelling, spoke with Orthopedic PND recommend boot and outpatient follow-up but it seems that patient does have a boot and ankle sprains or seems to have chronic problems recommend outpatient follow-up with ortho. # Hypomnagnesemia - Repleted mg level 1.8 # COVID 19 - No hypoxia, has cough, with no resp distress follow clinical course # HTN - you elevated blood pressure reading, continue home meds follow BP # DM blood sugars stable continue diabetic diet and insulin sliding scale # recurrent fall as per patient he has been falling a lot therefore obtain a PT eval they have recommended short-term rehab due to decreased lower extremity strength and high risk for fall surgical services coordinator arranging for [facility] bed. Called patient's sister Shelia morocho [phone] couple days ago and updated her about patient's clinical condition and decision for rehab placement. For chronic issues- will continue home meds DVT ppx: Lovenox
[2020-12-02 16:26] LABS: Glucose, Whole Blood 160 mg/dL (60-115)
[2020-12-02] MEDS: Acetaminophen 325 MG TABLET 650 MG PO (17:12)
[2020-12-02 20:28] LABS: Glucose, Whole Blood 163 mg/dL (60-115)
[2020-12-02] MEDS: Atorvastatin Calcium 10 MG TABLET PO (22:00)
[2020-12-02] MEDS: Divalproex Sodium ER 500 MG TAB.ER.24H 2000 MG PO (22:00)
[2020-12-03] VITALS (9 sets, daily range): BP systolic 109–143; BP diastolic 61–80; PULSE 69–80; RESP 16–20; TEMP 36.6–36.8; O2SAT 97–100
[2020-12-03] MEDS: 0.9 % Sodium Chloride Flush 3 ML SYRINGE IVFLUSH ×3 (00:11→17:53)
[2020-12-03] MEDS: Dicyclomine HCl 10 MG CAPSULE 20 MG PO ×4 (06:14→22:25)
[2020-12-03] MEDS: Omeprazole 20 MG CAPSULE.DR PO (06:14)
[2020-12-03] MEDS: Enoxaparin Sodium 40 MG/0.4 ML SYRINGE SUBCUT (06:15)
[2020-12-03 08:13] LABS: Glucose, Whole Blood 94 mg/dL (60-115)
[2020-12-03] MEDS: Acetaminophen 325 MG TABLET 650 MG PO ×2 (10:14→17:52)
[2020-12-03] MEDS: Cholecalciferol (Vitamin D3) 25 MCG TABLET PO (10:15)
[2020-12-03] MEDS: risperiDONE 3 MG TABLET PO ×2 (10:15→21:10)
[2020-12-03] MEDS: Gabapentin 100 MG CAPSULE 200 MG PO ×2 (10:15→21:10)
[2020-12-03] MEDS: Cyanocobalamin (Vitamin B-12) 1,000 MCG TABLET 1000 MCG PO (10:15)
[2020-12-03] MEDS: hydrALAZINE HCl 50 MG TABLET PO ×3 (10:16→21:11)
[2020-12-03] MEDS: Propranolol HCL 20 MG TABLET PO ×3 (10:16→21:11)
[2020-12-03] MEDS: Aspirin Enteric Coated 81 MG TABLET.DR PO (10:16)
[2020-12-03] MEDS: amLODIPine Besylate 5 MG TABLET PO (10:16)
[2020-12-03] MEDS: Albuterol Sulfate 90 MCG 8 GM INHALER 2 PUFF INHALE (10:26)
[2020-12-03 12:18] LABS: Glucose, Whole Blood 114 mg/dL (60-115)
--- NOTE | 2020-12-03 14:12 | HO.PM.IMPN ---
Subjective Subjective Date of Service: 12/03/20 Interval History: Patient resting comfortably in bed continue to complain of right lower abdominal pain, no nausea, no vomiting, no fever chills no other acute issues overnight. Review of Systems General no headache, no dizziness , no fever chills. CVS no chest pain, no palpitation. Respiratory no cough, no sputum production, no respiratory distress. Gastrointestinal no nausea, right lower quadrant abdominal pain, no constipation, no diarrhea Physical Exam Vital Signs: Vital Signs: Last Vital Signs Temp 98.3 F 12/03/20 12:00 Pulse 76 12/03/20 12:00 Resp 18 12/03/20 12:00 BP 143/76 H 12/03/20 12:00 Pulse Ox 97 12/03/20 12:00 Body Mass Index 44.4 General patient resting comfortably in no acute distress. Neck is supple no JVD. CVS regular rate rhythm, Respiratory lungs clear to auscultation, no respiratory distress Gastrointestinal abdomen soft, right lower quadrant with no tenderness to palpation, patient complaining of pain superficial touch to right lower quadrant, no palpable mass, bowel sounds audible, no guarding , no rigidity. Extremities left ankle in brace and boot, no pain Neuro nonfocal, speech clear Skin no rash Objective Data Current Medications Generic Name Dose Route Start Last Admin Trade Name Freq PRN Reason Stop Dose Admin Acetaminophen 650 mg 11/28/20 06:08 12/03/20 10:14 Acetaminophen 325 Mg Tablet PO 650 mg Q6H PRN Administration Pain, Mild (Pain Scale 1-3) Albuterol Sulfate 2 puff 11/28/20 14:02 12/03/20 10:26 Albuterol Sulfate 90 Mcg 8 Gm Inhaler INHALE 2 puff Q6H PRN Administration Shortness Of Breath Or Wheezing Amlodipine Besylate 5 mg 11/28/20 14:15 12/03/20 10:16 Amlodipine Besylate 5 Mg Tablet PO 5 mg DAILY PILO Administration Protocol Aspirin 81 mg 11/28/20 14:15 12/03/20 10:16 Aspirin Enteric Coated 81 Mg Tablet.Dr PO 81 mg DAILY [facility]O Administration Atorvastatin Calcium 10 mg 11/28/20 21:00 12/02/20 22:00 Atorvastatin Calcium 10 Mg Tablet PO 10 mg BEDTIME [facility] Administration Cyanocobalamin 1,000 mcg 11/30/20 09:00 12/03/20 10:15 Cyanocobalamin (Vitamin B-12) 1,000 Mcg Tablet PO 1,000 mcg DAILY [facility] Administration Dicyclomine HCl 20 mg 11/29/20 17:00 12/03/20 10:15 Dicyclomine Hcl 10 Mg Capsule PO 20 mg Q6H [facility] Administration Divalproex Sodium 2,000 mg 11/28/20 21:00 12/02/20 22:00 Divalproex Sodium Er 500 Mg Tab.Er.24h PO 2,000 mg BEDTIME [facility] Administration Enoxaparin Sodium 40 mg 11/28/20 06:15 12/03/20 06:15 Enoxaparin Sodium 40 Mg/0.4 Ml Syringe SUBCUT 40 mg Q24H [facility] Administration Fluticasone/Vilanterol 1 puff 11/29/20 08:00 12/02/20 08:36 Fluticasone/Vilanterol 100/25 Blst.W.Dev INHALE 1 puff RDAILY [facility] Administration Gabapentin 200 mg 11/28/20 21:00 12/03/20 10:15 Gabapentin 100 Mg Capsule PO 200 mg BID [facility] Administration Hydralazine HCl 50 mg 12/02/20 09:00 12/03/20 10:16 Hydralazine Hcl 50 Mg Tablet PO 50 mg TID [facility] Administration Protocol Insulin Human Lispro 0 unit 11/28/20 07:30 12/03/20 12:49 Insulin Lispro 100 Unit/Ml 3 Ml Vial SUBCUT Not Given QIDACHS [facility] Protocol Lactase 1 tab 11/28/20 14:02 11/30/20 11:07 Lactase Tablet PO 1 tab TID PRN Administration Lactose Intolerance Pt Own: 1 each 11/29/20 21:00 12/03/20 10:18 Demeclocycline 300mg PO 1 each Tab BID [facility] Administration Protocol Omeprazole 20 mg 11/30/20 06:30 12/03/20 06:14 Omeprazole 20 Mg Capsule.Dr PO 20 mg DAILY@0630 [facility] Administration Ondansetron HCl 4 mg 11/28/20 06:08 Ondansetron Hcl 4 Mg/2 Ml Vial IVPUSH Q8H PRN Nausea and Vomiting Pharmacy Consult 1 each 11/28/20 12:44 Consult Rx Perform Med Rec MISCELLANE ONCE PRN Consult order Polyethylene Glycol 17 gm 11/30/20 09:00 12/03/20 10:17 Polyethylene Glycol 3350 17 Gm Powd.Pack PO Not Given DAILY PILO Propranolol HCl 20 mg 11/28/20 15:00 12/03/20 10:16 Propranolol Hcl 20 Mg Tablet PO 20 mg TID [facility] Administration Protocol Risperidone 3 mg 11/28/20 21:00 12/03/20 10:15 Risperidone 3 Mg Tablet PO 3 mg BID [facility] Administration Sodium Chloride 3 ml 11/28/20 08:00 12/03/20 10:17 0.9 % Sodium Chloride Flush 3 Ml Syringe IVFLUSH 3 ml QSHIFT [facility] Administration Vitamin D 25 mcg 11/29/20 09:00 12/03/20 10:15 Cholecalciferol (Vitamin D3) 25 Mcg Tablet PO 25 mcg DAILY [facility] Administration Labs CBC & Chem 7: 11/30/20 05:14 11/30/20 05:14 Assessment and Plan (1) Abdominal pain: Status: Acute (2) Hypomagnesemia: Status: Acute (3) COVID-19: Problem details: November 2020 Status: Acute (4) Ankle pain, left: Status: Acute (5) Hyperlipidemia LDL goal <100: Status: Acute (6) Type 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: Status: Acute (7) Essential hypertension: Status: Acute Assessment and Plan: 50-year-old male who presents to the hospital with abdominal pain, diarrhea, found to be hypomagnesemic and COVID-19 positive # Abdominal pain Persistent right lower quadrant pain that seems chronic,likely for attention seeking, no nausea, vomiting,or diarrhea tolerating diet, had regular bowel movement normal abdominal exam, CT abdomen negative for any acute findings in the abd/pelvis. no appendicitis, no diverticulitis No diarrhea noted, C diff not collected, continue MiraLax and PPI follow clinical course # left ankle pain, resolved , x-ray of ankle suspicion for lateral malleolar fracture with by malleolar soft tissue swelling, spoke with Orthopedic surgery they recommend boot and outpatient follow-up but it seems that patient does have a boot and ankle brace,seems to have chronic problems recommend outpatient follow-up with ortho. # Hypomnagnesemia - Repleted mg level 1.8 # COVID 19 - No hypoxia, has cough, with no resp distress follow clinical course # HTN - you elevated blood pressure reading, continue home meds follow BP # DM blood sugars stable continue diabetic diet and insulin sliding scale # recurrent fall as per patient he has been falling a lot therefore obtain a PT eval they have recommended short-term rehab due to decreased lower extremity strength and high risk for fall director outpatient services arranging for str bed. Called patient's sister Shelia morocho [phone] couple days ago and updated her about patient's clinical condition and decision for rehab placement.
[2020-12-03 17:05] LABS: Glucose, Whole Blood 154 mg/dL (60-115)
[2020-12-03] MEDS: Insulin Lispro 100 UNIT/ML 3 ML VIAL SUBCUT ×2 (17:52→21:12)
[2020-12-03 19:59] LABS: Glucose, Whole Blood 220 mg/dL (60-115)
[2020-12-03] MEDS: Divalproex Sodium ER 500 MG TAB.ER.24H 2000 MG PO (21:11)
[2020-12-03] MEDS: Atorvastatin Calcium 10 MG TABLET PO (21:11)
[2020-12-04] VITALS (14 sets, daily range): BP systolic 133–154; BP diastolic 67–82; PULSE 67–95; RESP 18–20; TEMP 36.3–37.1; O2SAT 98–100
[2020-12-04] MEDS: 0.9 % Sodium Chloride Flush 3 ML SYRINGE IVFLUSH ×4 (00:46→16:03)
[2020-12-04] MEDS: Dicyclomine HCl 10 MG CAPSULE 20 MG PO (05:14)
[2020-12-04] MEDS: Enoxaparin Sodium 40 MG/0.4 ML SYRINGE SUBCUT (05:14)
[2020-12-04] MEDS: Omeprazole 20 MG CAPSULE.DR PO (05:14)
[2020-12-04] MEDS: Fluticasone/Vilanterol 100/25 BLST.W.DEV 1 PUFF INHALE (07:49)
[2020-12-04 07:56] LABS: Glucose, Whole Blood 124 mg/dL (60-115)
[2020-12-04 08:15] LABS: Basophils Percent Auto 0.4 % (0-2); Imm Gran Abs Auto 0.03 X10*3/uL (0.00-0.03); Imm Gran Pct Auto 0.6 % (0.0-0.4); Red Cell Distribution Width 15.2 % (11.0-16.0)
[2020-12-04 08:16] LABS: Eosinophils Absolute Auto 0.1 X10*3/uL (0.0-0.4); Eosinophils Percent Auto 1.7 % (0-4); Hematocrit 29.9 % (42-52); Hemoglobin 9.8 g/dl (14.0-18.0); Lymphocytes Absolute Auto 1.9 X10*3/uL (1.2-4.9); Mean Corpuscular HGB Conc 32.8 g/dl (31.0-36.0); Mean Corpuscular Hemoglobin 28.5 pg (27.0-33.0); Mean Corpuscular Volume 86.9 fL (80-98); Mean Platelet Volume 9.7 fL (9.4-12.4); Monocytes Absolute Auto 0.5 X10*3/uL (0.1-1.2); Monocytes Percent Auto 10.8 % (2-11); Neutrophils Absolute Auto 2.2 X10*3/uL (2.0-8.3); Neutrophils Percent Auto 46.5 % (45-73); Platelet Count 137 X10*3/uL (160-400); Red Blood Count 3.44 X10*6/uL (4.60-5.80); White Blood Count 4.8 X10*3/uL (4.8-10.8)
[2020-12-04] MEDS: Gabapentin 100 MG CAPSULE 200 MG PO ×2 (08:35→20:35)
[2020-12-04] MEDS: amLODIPine Besylate 5 MG TABLET PO (08:36)
[2020-12-04] MEDS: risperiDONE 3 MG TABLET PO ×2 (08:36→20:35)
[2020-12-04] MEDS: Cyanocobalamin (Vitamin B-12) 1,000 MCG TABLET 1000 MCG PO (08:36)
[2020-12-04] MEDS: Aspirin Enteric Coated 81 MG TABLET.DR PO (08:36)
[2020-12-04] MEDS: Propranolol HCL 20 MG TABLET PO ×3 (08:36→20:35)
[2020-12-04] MEDS: hydrALAZINE HCl 50 MG TABLET PO ×3 (08:37→20:35)
[2020-12-04] MEDS: polyethylene glycoL 3350 17 GM POWD.PACK PO (08:37)
[2020-12-04] MEDS: Cholecalciferol (Vitamin D3) 25 MCG TABLET PO (08:39)
--- NOTE | 2020-12-04 11:22 | MHC.CM.PN ---
CM spoke with guardian Shelia by phone who reports she does want patient to go to rehab and states the guardianship does have a right to place order. [facility] who states they only have the 1 page that was faxed to us. There is no right to place order on that page. Information given to CM sign hanger supervisor. Patient is accepted at [facility] and this is discharge plan. Patient will need BLS transport. CM will continue to follow for discharge needs.
[2020-12-04 12:01] LABS: Glucose, Whole Blood 184 mg/dL (60-115)
[2020-12-04] MEDS: Insulin Lispro 100 UNIT/ML 3 ML VIAL SUBCUT ×3 (12:07→20:36)
--- NOTE | 2020-12-04 14:21 | P.PNIM_ITS ---
Subjective Subjective Date of Service: 12/04/20 Interval History: Patient is sitting comfortably in bed complaining of right lower quadrant abdominal pain, no constipation or diarrhea, no acute issues overnight. Review of Systems General no headache, no dizziness , no fever chills. CVS no chest pain, no palpitation. Respiratory no cough, no sputum production, no respiratory distress. Gastrointestinal no nausea, right lower quadrant abdominal pain, no constipation, no diarrhea Physical Exam Vital Signs: Vital Signs: Last Vital Signs Temp 97.8 F 12/04/20 12:00 Pulse 76 12/04/20 12:00 Resp 18 12/04/20 12:00 BP 141/67 H 12/04/20 12:00 Pulse Ox 99 12/04/20 12:00 Body Mass Index 44.4 General patient resting comfortably in no acute distress. Neck is supple no JVD. CVS regular rate rhythm, Respiratory lungs clear to auscultation, no respiratory distress Gastrointestinal abdomen soft, right lower quadrant discomfort with superficial touch, no palpable mass, bowel sounds audible, no guarding , no rigidity. Extremities left ankle in brace and boot, no pain Neuro nonfocal, speech clear Skin no rash Objective Data Current Medications Generic Name Dose Route Start Last Admin Trade Name Freq PRN Reason Stop Dose Admin Acetaminophen 650 mg 11/28/20 06:08 12/03/20 17:52 Acetaminophen 325 Mg Tablet PO 650 mg Q6H PRN Administration Pain, Mild (Pain Scale 1-3) Albuterol Sulfate 2 puff 11/28/20 14:02 12/03/20 10:26 Albuterol Sulfate 90 Mcg 8 Gm Inhaler INHALE 2 puff Q6H PRN Administration Shortness Of Breath Or Wheezing Amlodipine Besylate 5 mg 11/28/20 14:15 12/04/20 08:36 Amlodipine Besylate 5 Mg Tablet PO 5 mg DAILY [facility] Administration Protocol Aspirin 81 mg 11/28/20 14:15 12/04/20 08:36 Aspirin Enteric Coated 81 Mg Tablet. PO 81 mg DAILY [facility] Administration Atorvastatin Calcium 10 mg 11/28/20 21:00 12/03/20 21:11 Atorvastatin Calcium 10 Mg Tablet PO 10 mg BEDTIME [facility] Administration Cyanocobalamin 1,000 mcg 11/30/20 09:00 12/04/20 08:36 Cyanocobalamin (Vitamin B-12) 1,000 Mcg Tablet PO 1,000 mcg DAILY [facility] Administration Divalproex Sodium 2,000 mg 11/28/20 21:00 12/03/20 21:11 Divalproex Sodium Er 500 Mg Tab.Er.24h PO 2,000 mg BEDTIME [facility] Administration Enoxaparin Sodium 40 mg 11/28/20 06:15 12/04/20 05:14 Enoxaparin Sodium 40 Mg/0.4 Ml Syringe SUBCUT 40 mg Q24H [facility] Administration Fluticasone/Vilanterol 1 puff 11/29/20 08:00 12/04/20 07:49 Fluticasone/Vilanterol 100/25 Blst.W.Dev INHALE 1 puff RDAILY [facility] Administration Gabapentin 200 mg 11/28/20 21:00 12/04/20 08:35 Gabapentin 100 Mg Capsule PO 200 mg BID [facility] Administration Hydralazine HCl 50 mg 12/02/20 09:00 12/04/20 08:37 Hydralazine Hcl 50 Mg Tablet PO 50 mg TID [facility] Administration Protocol Insulin Human Lispro 0 unit 11/28/20 07:30 12/04/20 12:07 Insulin Lispro 100 Unit/Ml 3 Ml Vial SUBCUT 2 unit QIDACHS [facility] Administration Protocol Lactase 1 tab 11/28/20 14:02 11/30/20 11:07 Lactase Tablet PO 1 tab TID PRN Administration Lactose Intolerance Pt Own: 1 each 11/29/20 21:00 12/04/20 08:41 Demeclocycline 300mg PO 1 each Tab BID [facility] Administration Protocol Omeprazole 20 mg 11/30/20 06:30 12/04/20 05:14 Omeprazole 20 Mg Capsule. PO 20 mg DAILY@0630 [facility] Administration Ondansetron HCl 4 mg 11/28/20 06:08 Ondansetron Hcl 4 Mg/2 Ml Vial IVPUSH Q8H PRN Nausea and Vomiting Pharmacy Consult 1 each 11/28/20 12:44 Consult Rx Perform Med Rec MISCELLANE ONCE PRN Consult order Polyethylene Glycol 17 gm 11/30/20 09:00 12/04/20 08:37 Polyethylene Glycol 3350 17 Gm Powd.Pack PO 17 gm DAILY [facility] Administration Propranolol HCl 20 mg 11/28/20 15:00 12/04/20 08:36 Propranolol Hcl 20 Mg Tablet PO 20 mg TID [facility] Administration Protocol Risperidone 3 mg 11/28/20 21:00 12/04/20 08:36 Risperidone 3 Mg Tablet PO 3 mg BID [facility] Administration Sodium Chloride 3 ml 11/28/20 08:00 12/04/20 08:39 0.9 % Sodium Chloride Flush 3 Ml Syringe IVFLUSH 3 ml QSHIFT [facility] Administration Vitamin D 25 mcg 11/29/20 09:00 12/04/20 08:39 Cholecalciferol (Vitamin D3) 25 Mcg Tablet PO 25 mcg DAILY [facility] Administration Labs CBC & Chem 7: 12/04/20 08:04 11/30/20 05:14 Assessment and Plan (1) COVID-19: Problem details: November 2020 Status: Acute (2) Abdominal pain: Status: Acute (3) Hypomagnesemia: Status: Acute (4) Ankle pain, left: Status: Acute Assessment and Plan: 50-year-old male who presents to the hospital with abdominal pain, diarrhea, found to be hypomagnesemic and COVID-19 positive # Abdominal pain Persistent right lower quadrant pain that seems chronic,likely for attention seeking, no nausea, vomiting,or diarrhea tolerating diet, had regular bowel mov ement normal abdominal exam, CT abdomen negative for any acute findings in the abd/pelvis. no appendicitis, no diverticulitis No diarrhea noted, C diff not collected, continue MiraLax and PPI, will discontinue scheduled bentyl follow clinical course # left ankle pain, resolved , x-ray of ankle suspicion for lateral malleolar fracture with by malleolar soft tissue swelling, spoke with Orthopedic surgery they recommend boot and outpatient follow-up but it seems that patient does have a boot and ankle brace,seems to have chronic problems recommend outpatient follow-up with ortho. 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..
[2020-12-04 16:13] LABS: Glucose, Whole Blood 164 mg/dL (60-115)
[2020-12-04 20:19] LABS: Glucose, Whole Blood 183 mg/dL (60-115)
[2020-12-04] MEDS: Atorvastatin Calcium 10 MG TABLET PO (20:35)
[2020-12-04] MEDS: Divalproex Sodium ER 500 MG TAB.ER.24H 2000 MG PO (20:35)
[2020-12-05] VITALS (9 sets, daily range): BP systolic 111–149; BP diastolic 59–85; PULSE 69–86; RESP 18–20; TEMP 36.1–37; O2SAT 99–100
[2020-12-05] MEDS: Omeprazole 20 MG CAPSULE.DR PO (06:07)
[2020-12-05] MEDS: Enoxaparin Sodium 40 MG/0.4 ML SYRINGE SUBCUT (06:07)
[2020-12-05] MEDS: Fluticasone/Vilanterol 100/25 BLST.W.DEV 1 PUFF INHALE (07:35)
[2020-12-05 07:43] LABS: Glucose, Whole Blood 89 mg/dL (60-115)
[2020-12-05] MEDS: 0.9 % Sodium Chloride Flush 3 ML SYRINGE IVFLUSH ×2 (08:03→15:44)
[2020-12-05] MEDS: Cholecalciferol (Vitamin D3) 25 MCG TABLET PO (08:04)
[2020-12-05] MEDS: amLODIPine Besylate 5 MG TABLET PO (08:04)
[2020-12-05] MEDS: hydrALAZINE HCl 50 MG TABLET PO ×3 (08:04→19:59)
[2020-12-05] MEDS: Cyanocobalamin (Vitamin B-12) 1,000 MCG TABLET 1000 MCG PO (08:04)
[2020-12-05] MEDS: Propranolol HCL 20 MG TABLET PO ×3 (08:04→19:58)
[2020-12-05] MEDS: risperiDONE 3 MG TABLET PO ×2 (08:04→19:58)
[2020-12-05] MEDS: polyethylene glycoL 3350 17 GM POWD.PACK PO (08:04)
[2020-12-05] MEDS: Gabapentin 100 MG CAPSULE 200 MG PO ×2 (08:05→19:59)
[2020-12-05] MEDS: Aspirin Enteric Coated 81 MG TABLET.DR PO (08:05)
--- NOTE | 2020-12-05 11:20 | PM.DS ---
DS: Providers Provider Date of Service: 12/05/20 Date of admission: 11/28/20 06:08 Primary care physician: Unknown Physician Consults: 12/01/20 13:14 Consult to Orthopedics Routine Consulting Provider: Imelda Campa Reason for consultation: lateral malleolar fx hx of fall Has provider been notified: No DS: Diagnosis Discharge Diagnosis (1) COVID-19: Status: Acute Problem details: November 2020 (2) Abdominal pain: Status: Acute (3) Hypomagnesemia: Status: Acute (4) Ankle pain, left: Status: Acute DS: Medications Discharge Medications Home Medications: Home Medications Medication Instructions Recorded Confirmed demeclocycline 300 mg PO BID 09/04/20 11/28/20 fluticasone propion-salmeterol 1 inh INHALATION BID 09/04/20 11/28/20 [Advair Diskus] lisinopril 20 mg PO DAILY 09/04/20 11/28/20 amlodipine 5 mg tablet 5 mg PO DAILY 09/08/20 11/28/20 cholecalciferol (vitamin D3) 25 25 mcg PO DAILY 09/08/20 11/28/20 mcg (1,000 unit) tablet lactase 3,000 unit tablet 3,000 unit PO TID PRN tab 09/08/20 11/28/20 gabapentin 100 mg capsule 200 mg PO BID 09/22/20 11/28/20 risperidone 3 mg tablet 3 mg PO BID 09/22/20 11/28/20 divalproex 500 mg tablet,extended 2,000 mg PO BEDTIME 10/11/20 11/28/20 release 24 hr albuterol sulfate [Ventolin HFA] 2 puff INHALATION Q6H PRN 11/28/20 11/28/20 atorvastatin 10 mg PO BEDTIME 11/28/20 11/28/20 cyanocobalamin (vitamin B-12) 1,000 mcg PO DAILY 11/28/20 11/28/20 ondansetron 4 mg TRANSLINGUAL DAILY PRN 11/28/20 11/28/20 triamcinolone acetonide 1 appl TOPICAL TID PRN 11/28/20 11/28/20 Previous Rx's Medication Instructions Recorded semaglutide 0.5 mg SUBCUT QWEEK #1.5 ml 10/11/20 aspirin 81 mg tablet,delayed 81 mg PO QAM #28 tab 10/24/20 release dexlansoprazole 60 mg 60 mg PO DAILY #28 cap 11/30/20 capsule,biphase delayed release propranolol 20 mg tablet 20 mg PO TID #84 tab 12/04/20 hydralazine 50 mg PO TID #56 tab 12/05/20 DS: Summary Hospital Course Hospital Course: Chief Complaint: Abdominal pain, diarrhea This is a 50-year-old male with an extensive past medical history as below presents to the hospital from retirement with complaints of abdominal pain, diarrhea . The patient reports that he has been having diarrhea for the past week, menopause hit a day, artery, nonbloody, associated with right lower abdominal pain, he also has nausea vomiting. He reports low oral intake because everything he eats he vomits. He has no fever chills, he reports shortness of breath on exertion, no cough, no urinary symptoms and no lower extremity edema. All other review of system negative otherwise On arrival to the ED patient's blood pressure is elevated but otherwise hemodynamically stable Labs are significant for WBC count of 6.1, hemoglobin of 9.4, hematocrit 29 point vital, platelet count of 116, BUN of 21, creatinine of 1.05, magnesium of 0.8 on arrival, see UA negative. COVID-[address] shows no new worrisome finding to account for the patient's acute right lower quadrant pain. The bowel and appendix appear unremarkable. He has a unchanged elderly of the left adrenal gland, symmetrical bladder wall thickening. Past medical history: Hypertension, HLD, PVD, seizure disorder, type 2 diabetes, asthma, anxiety and depression, anemia Surgical history: orchiectomy 50-year-old male who presents to the hospital with abdominal pain, diarrhea, found to have hypomagnesemia and COVID-19 positive # Abdominal pain Patient admitted with abdominal pain workup remain negative, CT abdomen showed no acute abnormality, normal electrolytes and liver profile, patient had no nausea vomiting no diarrhea currently tolerating diet, patient's medication Bentyl and Glucophage has been discontinued likely were contributing to pain, also pain could be related to attention seeking behavior. # left ankle pain, resolved , x-ray of ankle suspicion for lateral malleolar fracture with by malleolar soft tissue swelling, spoke with Orthopedic surgery they recommend boot and outpatient follow-up but it patient does have a boot and ankle brace,seems to have chronic problems recommend outpatient follow-up with ortho. # Hypomnagnesemia Repleted mg level 1.8 # COVID 19 - No hypoxia, no resp distress follow clinical course # HTN- continue amlodipine 5 mg, propranolol and hydralazine, dose of hydralazine increased to 50 mg t.i.d. , patient was on Lasix that has been discontinued. # DM blood sugars stable continue insulin Q weekly Glucophage discontinued blood sugars stable. # recurrent fall as per patient he has been falling a lot therefore obtain a PT eval they recommended short-term rehab due to decreased lower extremity strength and high risk for fall. Time Spent with Patient Time attestation: Total time spent providing and/or coordinating discharge services: Discharge coordination time: Greater than 30 minutes Physical Exam Vital Signs: Vital Signs: Last Vital Signs Temp 97.7 F 12/05/20 08:00 Pulse 86 12/05/20 08:00 Resp 20 12/05/20 08:00 BP 111/59 L 12/05/20 08:00 Pulse Ox 100 12/05/20 08:00 Body Mass Index 44.4 General no acute distress. Neck is supple no JVD. CVS regular rate rhythm, Respiratory lungs clear to auscultation, no respiratory distress Gastrointestinal abdomen soft, no tenderness to palpation, bowel sounds audible, no guarding , no rigidity. Extremities left ankle in brace and boot, no pain Neuro nonfocal, speech clear Skin no rash DS: Data Data Completed and Pending Labs on day of discharge: Laboratory Tests 11/27/20 11/27/20 11/27/20 21:40 21:40 21:41 WBC 6.1 RBC 3.33 L Hgb 9.4 L Hct 29.5 L MCV 88.6 MCH 28.2 MCHC 31.9 RDW 15.1 Plt Count 116 L MPV 10.3 Immature Gran % (Auto) 0.5 H Neut % (Auto) 60.6 Lymph % (Auto) 26.6 [place] % (Auto) 10.8 Eos % (Auto) 1.0 Baso % (Auto) 0.5 Lymph # (Auto) 1.6 [place] # (Auto) 0.7 Eos # (Auto) 0.1 Baso # (Auto) 0.0 Abs Immat Gran (auto) 0.03 Absolute Neuts (auto) 3.7 Absolute Nucleated RBC 0.000 Nucleated RBC % (auto) 0.0 Hold Blue Top SEE NOTE Sodium 137 Potassium 3.8 Chloride 99 Carbon Dioxide 28 Anion Gap 14 BUN 21 H D Creatinine 1.05 Estim Creat Clear Calc 106.1 Estimated GFR > 60 POC Glucose Random Glucose 94 Calcium 7.7 L D Magnesium 0.8 L* Total Bilirubin 0.2 Direct Bilirubin 0.2 AST 39 H ALT 25 Alkaline Phosphatase 95 D Troponin I High Sens Total Protein 5.8 L Albumin 3.2 L Urine Color Urine Appearance Urine pH Ur Specific [place] Urine Protein Urine Glucose (UA) Urine Ketones Urine Blood Urine Nitrite Ur Leukocyte Esterase Coronavirus (PCR) Influenza Type A (PCR) Influenza Type B (PCR) RSV RNA Qual (PCR) 11/27/20 11/27/20 11/27/20 21:41 21:41 21:41 WBC RBC Hgb Hct MCV MCH MCHC RDW Plt Count MPV Immature Gran % (Auto) Neut % (Auto) Lymph % (Auto) [place] % (Auto) Eos % (Auto) Baso % (Auto) Lymph # (Auto) [place] # (Auto) Eos # (Auto) Baso # (Auto) Abs Immat Gran (auto) Absolute Neuts (auto) Absolute Nucleated RBC Nucleated RBC % (auto) Hold Blue Top Sodium Potassium Chloride Carbon Dioxide Anion Gap BUN Creatinine Estim Creat Clear Calc Estimated GFR POC Glucose Random Glucose Calcium Magnesium Total Bilirubin Direct Bilirubin AST ALT Alkaline Phosphatase Troponin I High Sens 7.2 Total Protein Albumin Urine Color YELLOW Urine Appearance CLEAR Urine pH 6.0 Ur Specific [place] 1.020 Urine Protein NEG Urine Glucose (UA) NEG Urine Ketones 5 Urine Blood NEG Urine Nitrite NEG Ur Leukocyte Esterase NEG Coronavirus (PCR) POSITIVE A Influenza Type A (PCR) NEGATIVE Influenza Type B (PCR) NEGATIVE RSV RNA Qual (PCR) NEGATIVE 11/28/20 11/28/20 11/28/20 02:08 06:34 07:45 WBC RBC Hgb Hct MCV MCH MCHC RDW Plt Count MPV Immature Gran % (Auto) Neut % (Auto) Lymph % (Auto) [place] % (Auto) Eos % (Auto) Baso % (Auto) Lymph # (Auto) [place] # (Auto) Eos # (Auto) Baso # (Auto) Abs Immat Gran (auto) Absolute Neuts (auto) Absolute Nucleated RBC Nucleated RBC % (auto) Hold Blue Top Sodium Potassium Chloride Carbon Dioxide Anion Gap BUN Creatinine Estim Creat Clear Calc Estimated GFR POC Glucose 81 Random Glucose Calcium Magnesium 1.2 L* 1.1 L* Total Bilirubin Direct Bilirubin AST ALT Alkaline Phosphatase Troponin I High Sens Total Protein Albumin Urine Color Urine Appearance Urine pH Ur Specific [place] Urine Protein Urine Glucose (UA) Urine Ketones Urine Blood Urine Nitrite Ur Leukocyte Esterase Coronavirus (PCR) Influenza Type A (PCR) Influenza Type B (PCR) RSV RNA Qual (PCR) 11/28/20 11/28/20 11/28/20 11:35 14:55 16:40 WBC RBC Hgb Hct MCV MCH MCHC RDW Plt Count MPV Immature Gran % (Auto) Neut % (Auto) Lymph % (Auto) [place] % (Auto) Eos % (Auto) Baso % (Auto) Lymph # (Auto) [place] # (Auto) Eos # (Auto) Baso # (Auto) Abs Immat Gran (auto) Absolute Neuts (auto) Absolute Nucleated RBC Nucleated RBC % (auto) Hold Blue Top Sodium Potassium Chloride Carbon Dioxide Anion Gap BUN Creatinine Estim Creat Clear Calc Estimated GFR POC Glucose 109 115 Random Glucose Calcium Magnesium 1.8 Total Bilirubin Direct Bilirubin AST ALT Alkaline Phosphatase Troponin I High Sens Total Protein Albumin Urine Color Urine Appearance Urine pH Ur Specific [place] Urine Protein Urine Glucose (UA) Urine Ketones Urine Blood Urine Nitrite Ur Leukocyte Esterase Coronavirus (PCR) Influenza Type A (PCR) Influenza Type B (PCR) RSV RNA Qual (PCR) 11/28/20 11/29/20 11/29/20 20:25 05:18 05:18 WBC Cancelled RBC Cancelled Hgb Cancelled Hct Cancelled MCV Cancelled MCH Cancelled MCHC Cancelled RDW Cancelled Plt Count Cancelled MPV Cancelled Immature Gran % (Auto) Cancelled Neut % (Auto) Cancelled Lymph % (Auto) Cancelled [place] % (Auto) Cancelled Eos % (Auto) Cancelled Baso % (Auto) Cancelled Lymph # (Auto) Cancelled [place] # (Auto) Cancelled Eos # (Auto) Cancelled Baso # (Auto) Cancelled Abs Immat Gran (auto) Cancelled Absolute Neuts (auto) Cancelled Absolute Nucleated RBC Cancelled Nucleated RBC % (auto) Cancelled Hold Blue Top Sodium Cancelled Potassium Cancelled Chloride Cancelled Carbon Dioxide Cancelled Anion Gap Cancelled BUN Cancelled Creatinine Cancelled Estim Creat Clear Calc Cancelled Estimated GFR Cancelled POC Glucose 130 H Random Glucose Cancelled Calcium Cancelled Magnesium Total Bilirubin Direct Bilirubin AST ALT Alkaline Phosphatase Troponin I High Sens Total Protein Albumin Urine Color Urine Appearance Urine pH Ur Specific [place] Urine Protein Urine Glucose (UA) Urine Ketones Urine Blood Urine Nitrite Ur Leukocyte Esterase Coronavirus (PCR) Influenza Type A (PCR) Influenza Type B (PCR) RSV RNA Qual (PCR) 11/29/20 11/29/20 11/29/20 05:18 05:18 07:29 WBC 4.6 L RBC 2.92 L Hgb 8.3 L Hct 25.5 L MCV 87.3 MCH 28.4 MCHC 32.5 RDW 14.8 Plt Count 100 L MPV 10.2 Immature Gran % (Auto) 0.4 Neut % (Auto) 49.3 Lymph % (Auto) 34.5 [place] % (Auto) 13.6 H Eos % (Auto) 1.8 Baso % (Auto) 0.4 Lymph # (Auto) 1.6 [place] # (Auto) 0.6 Eos # (Auto) 0.1 Baso # (Auto) 0.0 Abs Immat Gran (auto) 0.02 Absolute Neuts (auto) 2.2 Absolute Nucleated RBC 0.000 Nucleated RBC % (auto) 0.0 Hold Blue Top Sodium 137 Potassium 3.3 Chloride 102 Carbon Dioxide 30 H Anion Gap 8 L BUN 14 Creatinine 0.80 Estim Creat Clear Calc 139.3 Estimated GFR > 60 POC Glucose 80 Random Glucose 83 Calcium 7.7 L Magnesium Total Bilirubin Direct Bilirubin AST ALT Alkaline Phosphatase Troponin I High Sens Total Protein Albumin Urine Color Urine Appearance Urine pH Ur Specific [place] Urine Protein Urine Glucose (UA) Urine Ketones Urine Blood Urine Nitrite Ur Leukocyte Esterase Coronavirus (PCR) Influenza Type A (PCR) Influenza Type B (PCR) RSV RNA Qual (PCR) 11/29/20 11/29/20 11/29/20 11:09 16:52 20:40 WBC RBC Hgb Hct MCV MCH MCHC RDW Plt Count MPV Immature Gran % (Auto) Neut % (Auto) Lymph % (Auto) [place] % (Auto) Eos % (Auto) Baso % (Auto) Lymph # (Auto) [place] # (Auto) Eos # (Auto) Baso # (Auto) Abs Immat Gran (auto) Absolute Neuts (auto) Absolute Nucleated RBC Nucleated RBC % (auto) Hold Blue Top Sodium Potassium Chloride Carbon Dioxide Anion Gap BUN Creatinine Estim Creat Clear Calc Estimated GFR POC Glucose 116 H 140 H 121 H Random Glucose Calcium Magnesium Total Bilirubin Direct Bilirubin AST ALT Alkaline Phosphatase Troponin I High Sens Total Protein Albumin Urine Color Urine Appearance Urine pH Ur Specific [place] Urine Protein Urine Glucose (UA) Urine Ketones Urine Blood Urine Nitrite Ur Leukocyte Esterase Coronavirus (PCR) Influenza Type A (PCR) Influenza Type B (PCR) RSV RNA Qual (PCR) 11/30/20 11/30/20 11/30/20 05:14 05:14 08:01 WBC 4.6 L RBC 3.00 L Hgb 8.5 L Hct 26.0 L MCV 86.7 MCH 28.3 MCHC 32.7 RDW 14.8 Plt Count 108 L MPV 10.5 Immature Gran % (Auto) 0.4 Neut % (Auto) 45.4 Lymph % (Auto) 38.5 [place] % (Auto) 13.5 H Eos % (Auto) 1.5 Baso % (Auto) 0.7 Lymph # (Auto) 1.8 [place] # (Auto) 0.6 Eos # (Auto) 0.1 Baso # (Auto) 0.0 Abs Immat Gran (auto) 0.02 Absolute Neuts (auto) 2.1 Absolute Nucleated RBC 0.000 Nucleated RBC % (auto) 0.0 Hold Blue Top Sodium 137 Potassium 3.7 Chloride 104 Carbon Dioxide 25 Anion Gap 12 BUN 15 Creatinine 0.78 Estim Creat Clear Calc 142.9 Estimated GFR > 60 POC Glucose 96 Random Glucose 116 H D Calcium 7.7 L Magnesium Total Bilirubin Direct Bilirubin AST ALT Alkaline Phosphatase Troponin I High Sens Total Protein Albumin Urine Color Urine Appearance Urine pH Ur Specific [place] Urine Protein Urine Glucose (UA) Urine Ketones Urine Blood Urine Nitrite Ur Leukocyte Esterase Coronavirus (PCR) Influenza Type A (PCR) Influenza Type B (PCR) RSV RNA Qual (PCR) 11/30/20 11/30/20 11/30/20 11:11 17:01 20:10 WBC RBC Hgb Hct MCV MCH MCHC RDW Plt Count MPV Immature Gran % (Auto) Neut % (Auto) Lymph % (Auto) [place] % (Auto) Eos % (Auto) Baso % (Auto) Lymph # (Auto) [place] # (Auto) Eos # (Auto) Baso # (Auto) Abs Immat Gran (auto) Absolute Neuts (auto) Absolute Nucleated RBC Nucleated RBC % (auto) Hold Blue Top Sodium Potassium Chloride Carbon Dioxide Anion Gap BUN Creatinine Estim Creat Clear Calc Estimated GFR POC Glucose 124 H 159 H 172 H Random Glucose Calcium Magnesium Total Bilirubin Direct Bilirubin AST ALT Alkaline Phosphatase Troponin I High Sens Total Protein Albumin Urine Color Urine Appearance Urine pH Ur Specific [place] Urine Protein Urine Glucose (UA) Urine Ketones Urine Blood Urine Nitrite Ur Leukocyte Esterase Coronavirus (PCR) Influenza Type A (PCR) Influenza Type B (PCR) RSV RNA Qual (PCR) 12/01/20 12/01/20 12/01/20 08:30 11:47 16:19 WBC RBC Hgb Hct MCV MCH MCHC RDW Plt Count MPV Immature Gran % (Auto) Neut % (Auto) Lymph % (Auto) [place] % (Auto) Eos % (Auto) Baso % (Auto) Lymph # (Auto) [place] # (Auto) Eos # (Auto) Baso # (Auto) Abs Immat Gran (auto) Absolute Neuts (auto) Absolute Nucleated RBC Nucleated RBC % (auto) Hold Blue Top Sodium Potassium Chloride Carbon Dioxide Anion Gap BUN Creatinine Estim Creat Clear Calc Estimated GFR POC Glucose 101 125 H 161 H Random Glucose Calcium Magnesium Total Bilirubin Direct Bilirubin AST ALT Alkaline Phosphatase Troponin I High Sens Total Protein Albumin Urine Color Urine Appearance Urine pH Ur Specific [place] Urine Protein Urine Glucose (UA) Urine Ketones Urine Blood Urine Nitrite Ur Leukocyte Esterase Coronavirus (PCR) Influenza Type A (PCR) Influenza Type B (PCR) RSV RNA Qual (PCR) 12/01/20 12/02/20 12/02/20 20:10 08:20 11:40 WBC RBC Hgb Hct MCV MCH MCHC RDW Plt Count MPV Immature Gran % (Auto) Neut % (Auto) Lymph % (Auto) [place] % (Auto) Eos % (Auto) Baso % (Auto) Lymph # (Auto) [place] # (Auto) Eos # (Auto) Baso # (Auto) Abs Immat Gran (auto) Absolute Neuts (auto) Absolute Nucleated RBC Nucleated RBC % (auto) Hold Blue Top Sodium Potassium Chloride Carbon Dioxide Anion Gap BUN Creatinine Estim Creat Clear Calc Estimated GFR POC Glucose 197 H 181 H 121 H Random Glucose Calcium Magnesium Total Bilirubin Direct Bilirubin AST ALT Alkaline Phosphatase Troponin I High Sens Total Protein Albumin Urine Color Urine Appearance Urine pH Ur Specific [place] Urine Protein Urine Glucose (UA) Urine Ketones Urine Blood Urine Nitrite Ur Leukocyte Esterase Coronavirus (PCR) Influenza Type A (PCR) Influenza Type B (PCR) RSV RNA Qual (PCR) 12/02/20 12/02/20 12/03/20 16:17 20:21 08:07 WBC RBC Hgb Hct MCV MCH MCHC RDW Plt Count MPV Immature Gran % (Auto) Neut % (Auto) Lymph % (Auto) [place] % (Auto) Eos % (Auto) Baso % (Auto) Lymph # (Auto) [place] # (Auto) Eos # (Auto) Baso # (Auto) Abs Immat Gran (auto) Absolute Neuts (auto) Absolute Nucleated RBC Nucleated RBC % (auto) Hold Blue Top Sodium Potassium Chloride Carbon Dioxide Anion Gap BUN Creatinine Estim Creat Clear Calc Estimated GFR POC Glucose 160 H 163 H 94 Random Glucose Calcium Magnesium Total Bilirubin Direct Bilirubin AST ALT Alkaline Phosphatase Troponin I High Sens Total Protein Albumin Urine Color Urine Appearance Urine pH Ur Specific [place] Urine Protein Urine Glucose (UA) Urine Ketones Urine Blood Urine Nitrite Ur Leukocyte Esterase Coronavirus (PCR) Influenza Type A (PCR) Influenza Type B (PCR) RSV RNA Qual (PCR) 12/03/20 12/03/20 12/03/20 12:09 16:52 19:54 WBC RBC Hgb Hct MCV MCH MCHC RDW Plt Count MPV Immature Gran % (Auto) Neut % (Auto) Lymph % (Auto) [place] % (Auto) Eos % (Auto) Baso % (Auto) Lymph # (Auto) [place] # (Auto) Eos # (Auto) Baso # (Auto) Abs Immat Gran (auto) Absolute Neuts (auto) Absolute Nucleated RBC Nucleated RBC % (auto) Hold Blue Top Sodium Potassium Chloride Carbon Dioxide Anion Gap BUN Creatinine Estim Creat Clear Calc Estimated GFR POC Glucose 114 154 H 220 H Random Glucose Calcium Magnesium Total Bilirubin Direct Bilirubin AST ALT Alkaline Phosphatase Troponin I High Sens Total Protein Albumin Urine Color Urine Appearance Urine pH Ur Specific [place] Urine Protein Urine Glucose (UA) Urine Ketones Urine Blood Urine Nitrite Ur Leukocyte Esterase Coronavirus (PCR) Influenza Type A (PCR) Influenza Type B (PCR) RSV RNA Qual (PCR) 12/04/20 12/04/20 12/04/20 07:48 08:04 11:42 WBC 4.8 RBC 3.44 L Hgb 9.8 L Hct 29.9 L MCV 86.9 MCH 28.5 MCHC 32.8 RDW 15.2 Plt Count 137 L D MPV 9.7 Immature Gran % (Auto) 0.6 H Neut % (Auto) 46.5 Lymph % (Auto) 40.0 [place] % (Auto) 10.8 Eos % (Auto) 1.7 Baso % (Auto) 0.4 Lymph # (Auto) 1.9 [place] # (Auto) 0.5 Eos # (Auto) 0.1 Baso # (Auto) 0.0 Abs Immat Gran (auto) 0.03 Absolute Neuts (auto) 2.2 Absolute Nucleated RBC 0.000 Nucleated RBC % (auto) 0.0 Hold Blue Top Sodium Potassium Chloride Carbon Dioxide Anion Gap BUN Creatinine Estim Creat Clear Calc Estimated GFR POC Glucose 124 H 184 H Random Glucose Calcium Magnesium Total Bilirubin Direct Bilirubin AST ALT Alkaline Phosphatase Troponin I High Sens Total Protein Albumin Urine Color Urine Appearance Urine pH Ur Specific [place] Urine Protein Urine Glucose (UA) Urine Ketones Urine Blood Urine Nitrite Ur Leukocyte Esterase Coronavirus (PCR) Influenza Type A (PCR) Influenza Type B (PCR) RSV RNA Qual (PCR) 12/04/20 12/04/20 12/05/20 16:09 19:59 07:38 WBC RBC Hgb Hct MCV MCH MCHC RDW Plt Count MPV Immature Gran % (Auto) Neut % (Auto) Lymph % (Auto) [place] % (Auto) Eos % (Auto) Baso % (Auto) Lymph # (Auto) [place] # (Auto) Eos # (Auto) Baso # (Auto) Abs Immat Gran (auto) Absolute Neuts (auto) Absolute Nucleated RBC Nucleated RBC % (auto) Hold Blue Top Sodium Potassium Chloride Carbon Dioxide Anion Gap BUN Creatinine Estim Creat Clear Calc Estimated GFR POC Glucose 164 H 183 H 89 Random Glucose Calcium Magnesium Total Bilirubin Direct Bilirubin AST ALT Alkaline Phosphatase Troponin I High Sens Total Protein Albumin Urine Color Urine Appearance Urine pH Ur Specific [place] Urine Protein Urine Glucose (UA) Urine Ketones Urine Blood Urine Nitrite Ur Leukocyte Esterase Coronavirus (PCR) Influenza Type A (PCR) Influenza Type B (PCR) RSV RNA Qual (PCR) Discharge Plan Discharge Patient Disposition: Xfer [facility] Referrals: Physician,Unknown [Primary Care Provider] - Discharge Medications: Continued fluticasone propion-salmeterol [Advair Diskus] 250-50 mcg/dose blister with device 1 inh inhalation BID RF: 0 demeclocycline 300 mg tablet 300 mg PO BID RF: 0 lisinopril 20 mg Tablet 20 mg PO DAILY RF: 0 semaglutide [Ozempic] 0.25 mg or 0.5 mg(2 mg/1.5 mL) pen injector 0.5 mg subcut QWEEK Qty: 1.5 RF: 3 aspirin 81 mg tablet,delayed release (DR/EC) 81 mg PO QAM Qty: 28 RF: 11 dexlansoprazole [Dexilant] 60 mg capsule,biphase delayed releas 60 mg PO DAILY Qty: 28 RF: 11 propranolol 20 mg tablet 20 mg PO TID Qty: 84 RF: 5 cyanocobalamin (vitamin B-12) 1,000 mcg Tablet 1,000 mcg PO DAILY RF: 0 atorvastatin 10 mg tablet 10 mg PO BEDTIME RF: 0 albuterol sulfate [Ventolin HFA] 90 mcg/actuation HFA aerosol inhaler 2 puff INHALATION Q6H PRN (Reason: Shortness Of Breath Or Wheezing) RF: 0 triamcinolone acetonide 0.1 % Cream 1 appl TOPICAL TID PRN (Reason: Rash) RF: 0 ondansetron 4 mg Tablet,Disintegrating 4 mg translingual DAILY PRN (Reason: Nausea) RF: 0 amlodipine 5 mg tablet 5 mg PO DAILY RF: 0 lactase [Lactaid] 3,000 unit tablet 3,000 unit PO TID PRN (Reason: Lactose Intolerance) RF: 0 cholecalciferol (vitamin D3) [Vitamin D3] 25 mcg (1,000 unit) tablet 25 mcg PO DAILY RF: 0 gabapentin 100 mg capsule 200 mg PO BID RF: 0 risperidone 3 mg tablet 3 mg PO BID RF: 0 divalproex 500 mg tablet extended release 24 hr 2,000 mg PO BEDTIME RF: 0 Changed hydralazine 50 mg tablet 50 mg PO TID Qty: 56 RF: 5 Discontinued metformin 1,000 mg Tablet 1,000 mg PO BID RF: 0 furosemide 20 mg tablet 20 mg PO QAM Qty: 28 RF: 2 dicyclomine 20 mg tablet 20 mg PO Q6H RF: 0 Discharge Orders: Discharge Order (Routine); Ordered 12/05/20 Ordered By: Soo Granados Diet: diabetic diet and low fat, low cholesterol Activity on Discharge: As tolerated Stand Alone Forms: Patient Portal Discharge page Care Plan Goals: Physical therapy Health Concerns: Diabetes, hypertension and chronic abdominal pain with negative workup Plan of Treatment: Outpatient follow-up with PCP
--- NOTE | 2020-12-05 11:47 | MHC.CM.PN ---
Patient will be discharged today to [facility] at 4pm via BLS transport. Patient, nurse, and guardian Shelia are all aware.
[2020-12-05 11:52] LABS: Glucose, Whole Blood 109 mg/dL (60-115)
--- NOTE | 2020-12-05 15:17 | MHC.CM.PN ---
Addendum entered by Nereida Lau 12/05/20 15:21: [facility] placed on will call. Original Note: Patient's discharge for today is placed on hold r/t accepting SNF wants the order for intent to admit signed by the courts. Patient, Nurse. MD and HCP Shelia updated.
[2020-12-05 16:28] LABS: Glucose, Whole Blood 106 mg/dL (60-115)
[2020-12-05 19:57] LABS: Glucose, Whole Blood 165 mg/dL (60-115)
[2020-12-05] MEDS: Atorvastatin Calcium 10 MG TABLET PO (19:58)
[2020-12-05] MEDS: Divalproex Sodium ER 500 MG TAB.ER.24H 2000 MG PO (20:00)
[2020-12-05] MEDS: Insulin Lispro 100 UNIT/ML 3 ML VIAL SUBCUT (20:00)
[2020-12-06] MEDS: 0.9 % Sodium Chloride Flush 3 ML SYRINGE IVFLUSH ×2 (00:20→08:28)
[2020-12-06 03:41] VITALS: BP 148/68; PULSE 86; RESP 18; TEMP 36.8; O2SAT 98
[2020-12-06] MEDS: Omeprazole 20 MG CAPSULE.DR PO (05:57)
[2020-12-06] MEDS: Enoxaparin Sodium 40 MG/0.4 ML SYRINGE SUBCUT (05:57)
[2020-12-06 07:28] VITALS: BP 125/78; PULSE 78; RESP 18; TEMP 36.5; O2SAT 98
[2020-12-06] MEDS: Fluticasone/Vilanterol 100/25 BLST.W.DEV 1 PUFF INHALE (07:48)
[2020-12-06 08:08] LABS: Glucose, Whole Blood 105 mg/dL (60-115)
[2020-12-06] MEDS: Cholecalciferol (Vitamin D3) 25 MCG TABLET PO (08:27)
[2020-12-06] MEDS: amLODIPine Besylate 5 MG TABLET PO (08:27)
[2020-12-06] MEDS: Gabapentin 100 MG CAPSULE 200 MG PO (08:27)
[2020-12-06] MEDS: hydrALAZINE HCl 50 MG TABLET PO (08:27)
[2020-12-06] MEDS: Propranolol HCL 20 MG TABLET PO (08:27)
[2020-12-06] MEDS: Aspirin Enteric Coated 81 MG TABLET.DR PO (08:27)
[2020-12-06] MEDS: risperiDONE 3 MG TABLET PO (08:27)
--- NOTE | 2020-12-06 08:27 | MHC.CM.PN ---
Patient will be discharging this morning at 10am to [facility] via BLS transport. Nurse, patient, MD and guardian Shelia are aware.
[2020-12-06] MEDS: Cyanocobalamin (Vitamin B-12) 1,000 MCG TABLET 1000 MCG PO (08:28)
[2020-12-06] MEDS: polyethylene glycoL 3350 17 GM POWD.PACK PO (08:28)
== END 2020-12-06 10:18 | disposition skilled nursing facility (03) | DRG 179 ==
LOC: HO.ED 21:09 → HO.EDOVER 11-28 06:53 → HO.IMC 11-28 07:23
PROVIDERS: Physician Assistant; Admitting Provider Internal Medicine; Emergency Provider Emergency Medicine; PCP Internal Medicine; Visit Provider Hospitalist
DX: U07.1 COVID-19 (principal); E83.42 Hypomagnesemia; I10 Essential (primary) hypertension; R29.6 Repeated falls; Z91.81 History of falling; E11.9 Type 2 diabetes mellitus without complications; Z88.2 Allergy status to sulfonamides; Z79.51 Long term (current) use of inhaled steroids; Z79.82 Long term (current) use of aspirin; Z79.899 Other long term (current) drug therapy
CPT/HCPCS: 0241U; 36415; 71045; 72100; 72220; 73610; 74177; 80048; 80076; 81003; 82947; 83735; 84484; 85025; 93005; 96361; 96365; 96366; 96375; 97110; 97162; 99283; 99284; 99285; J1650; J2405; J3475; Q9967

== ENCOUNTER 2020-12-11 13:38 | Emergency (ER) | payer MEDICARE, MEDICAID, SELFPAY ==
[2020-12-11 13:39] VITALS: BP 140/88; BP 151/86; PULSE 73; PULSE 80; RESP 12; TEMP 36.8; O2SAT 100; O2SAT 99; BMI 82.5
--- NOTE | 2020-12-11 13:40 | ECG_ITS ---
Test Reason : CP Blood Pressure : / mmHG Vent. Rate : 073 BPM Atrial Rate : 073 BPM P-R Int : 176 ms QRS Dur : 082 ms QT Int : 394 ms P-R-T Axes : 071 023 052 degrees QTc Int : 434 ms Normal sinus rhythm Normal ECG When compared with ECG of 28-NOV-2020 01:44, No significant change was found Referred By: Bhavana Loaiza Electronically Signed By:LINDA CHAMBERLAIN MD
--- NOTE | 2020-12-11 13:40 | ED.CHESTPAIN ---
HPI - Chest Pain General Chief Complaint: Chest Pain Stated Complaint: CHEST PAIN,+COVID Time Seen by Provider: 12/11/20 13:38 Source: patient, EMS and old records reviewed Mode of arrival: EMS Limitations: no limitations History of Present Illness MD complaint: chest pain Pertinent past history: other (COVID 11/27) Onset (ago): day(s) (yesterday) Timing of current episode: constant Prior episodes: No Onset: during rest Pain location: substernal, left chest and right chest Pain radiation: none Severity: moderate Quality: sharp Relieving factors: nothing Exacerbating factors: nothing Context: recent illness Associated symptoms: dyspnea Treatment prior to arrival: aspirin and nitroglycerin (no relief) Related Data Home Medications Medication Instructions Recorded Confirmed demeclocycline 300 mg PO BID 09/04/20 11/28/20 fluticasone propion-salmeterol 1 inh INHALATION BID 09/04/20 11/28/20 [Advair Diskus] lisinopril 20 mg PO DAILY 09/04/20 11/28/20 amlodipine 5 mg tablet 5 mg PO DAILY 09/08/20 11/28/20 cholecalciferol (vitamin D3) 25 25 mcg PO DAILY 09/08/20 11/28/20 mcg (1,000 unit) tablet lactase 3,000 unit tablet 3,000 unit PO TID PRN tab 09/08/20 11/28/20 gabapentin 100 mg capsule 200 mg PO BID 09/22/20 11/28/20 risperidone 3 mg tablet 3 mg PO BID 09/22/20 11/28/20 divalproex 500 mg tablet,extended 2,000 mg PO BEDTIME 10/11/20 11/28/20 release 24 hr albuterol sulfate [Ventolin HFA] 2 puff INHALATION Q6H PRN 11/28/20 11/28/20 atorvastatin 10 mg PO BEDTIME 11/28/20 11/28/20 cyanocobalamin (vitamin B-12) 1,000 mcg PO DAILY 11/28/20 11/28/20 ondansetron 4 mg TRANSLINGUAL DAILY PRN 11/28/20 11/28/20 triamcinolone acetonide 1 appl TOPICAL TID PRN 11/28/20 11/28/20 Previous Rx's Medication Instructions Recorded semaglutide 0.5 mg SUBCUT QWEEK #1.5 ml 10/11/20 aspirin 81 mg tablet,delayed 81 mg PO QAM #28 tab 10/24/20 release dexlansoprazole 60 mg 60 mg PO DAILY #28 cap 11/30/20 capsule,biphase delayed release propranolol 20 mg tablet 20 mg PO TID #84 tab 12/04/20 hydralazine 50 mg PO TID #56 tab 12/05/20 cefuroxime axetil 250 mg PO BID 7 Days #14 tab 12/11/20 prednisone 20 mg PO DAILY 4 Days #4 tab 12/11/20 Allergies Allergy/AdvReac Type Severity Reaction Status Date / Time Sulfa (Sulfonamide Allergy Severe CHAVEZ Verified 12/05/20 11:33 Antibiotics) ALICIA REACTION, Chavez Alicia trimethoprim Allergy Mild UNKNOWN Verified 11/27/20 20:18 lactose AdvReac Mild STOMACH Verified 11/27/20 20:18 UPSET Review of Systems Review of Systems: Constitutional : No Weight loss, No Fever, No Chills ENT/Mouth : No sore throat, No Rhinorrhea Eyes: No Eye Pain, No Swelling Cardiovascular : pos Chest Pain, pos SOB, no Dyspnea on Exertion, No Orthopnea, No Edema, No Palpitations Respiratory : No Cough, No Sputum Gastrointestinal : no Nausea, No Vomiting, No Diarrhea, No abdominal Pain, No Hematochezia, No Melena Genitourinary : No Dysuria, No Urinary Frequency Musculoskeletal : No joint pain, No Myalgias, No Joint Swelling Skin : No Skin Lesions, No rash Neuro : No Weakness, No Numbness, No Dizziness, No Headache Psych : No Anxiety/Panic, No Depression Heme/Lymph: No Bruising, No Lymphadenopathy Endocrine : No Polyuria, No Polydipsia All other systems reviewed and are negative [facility] Past Medical History Attestation statement: The following information was validated with the patient. Medical History Anemia Anxiety Asthma BMI 40.0-44.9, adult Cerebellar ataxia Depression Essential hypertension Hyperlipidemia LDL goal <100 Hypertension Hyponatremia Lactose intolerance Mental disability Morbid obesity due to excess calories Obesity Peripheral vascular disease Proteinuria Seizure disorder Type 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 Vertigo Surgical History History of orchiectomy Family History Family History Father Myocardial infarction CVD (cardiovascular disease) Diabetes mellitus Mother Diabetes mellitus HTN (hypertension) Brother In good health Sister In good health Social History Social History Household Members: Other Housing: Other Alcohol intake: never Smoking Status: Former smoker Smoked in Last 30 Days: No Use of substances other than those prescribed or required for medical reasons: No Advance Directives: No Advance Directives Information Provided: No service: No Current occupational status: disabled Physical Exam Vital Signs: Vital Signs: Last Vital Signs Temp 98.7 F 12/11/20 16:07 Pulse 80 12/11/20 16:07 Resp 16 12/11/20 16:07 BP 149/73 H 12/11/20 16:07 Pulse Ox 98 12/11/20 16:07 Body Mass Index 82.5 Appearance: Alert. Oriented X3. No acute distress. Eyes: Pupils equal, round and reactive to light. ENT: Pharynx normal. Neck: Normal inspection. Neck supple. CVS: Normal heart rate and rhythm. Pulses normal. Respiratory: No respiratory distress. Breath sounds normal. Abdomen: Soft and nontender. Skin: Skin warm and dry. Normal skin color. Normal skin turgor. Extremities: No lower extremity edema. No calf ttp Neuro: Oriented X 3. No motor deficit. No sensory deficit. Course Course Course Narrative: EKG and troponin negative with CP > 6 hours, CTA;PE ordered for elevated ddimer small effusion likely pleurisy will start on steroids and oral antibiotics MDM - Chest Pain MDM Narrative Medical decision making narrative: 50 yo male with DM, HPL, HTN here with chest pain since yesterday described as sharp, stable VS no hypoxia, COVID dx 11/27 at this time will need troponin x 1, CXR, EKG, ddimer - pain is atypical somewhat, he looks well, dispo per results and findings. Lab Data Result diagrams: 12/11/20 14:31 12/11/20 14:31 Labs: Lab Results 12/11/20 12/11/20 12/11/20 Range/Units 14:31 14:31 14:31 WBC 6.5 (4.8-10.8) X10*3/uL RBC 3.44 L (4.60-5.80) X10*6/uL Hgb 9.9 L (14.0-18.0) g/dl Hct 30.3 L (42-52) % MCV 88.1 (80-98) fL MCH 28.8 (27.0-33.0) pg MCHC 32.7 (31.0-36.0) g/dl RDW 14.7 (11.0-16.0) % Plt Count 124 L (160-400) X10*3/uL MPV Not Reportable Immature Gran % (Auto) 0.5 H (0.0-0.4) % Neut % (Auto) 53.5 (45-73) % Lymph % (Auto) 33.5 (20-40) % [place] % (Auto) 10.5 (2-11) % Eos % (Auto) 1.4 (0-4) % Baso % (Auto) 0.6 (0-2) % Lymph # (Auto) 2.2 (1.2-4.9) X10*3/uL [place] # (Auto) 0.7 (0.1-1.2) X10*3/uL Eos # (Auto) 0.1 (0.0-0.4) X10*3/uL Baso # (Auto) 0.0 (0.0-0.2) X10*3/uL Abs Immat Gran (auto) 0.03 (0.00-0.03) X10*3/uL Absolute Neuts (auto) 3.5 (2.0-8.3) X10*3/uL Absolute Nucleated RBC 0.000 (0.0-0.012) X10*3/uL Nucleated RBC % (auto) 0.0 (0.0-0.2) /100WBC Smear Tech's Comments VERIFIED PT 11.5 (10.8-13.0) SEC INR 1.0 (0.9-1.1) APTT 35.7 (24.1-38.0) SEC D-Dimer 1520 NG/ML Sodium 135 (135-145) mmol/L Potassium 5.1 (3.3-5.1) mmol/L Chloride 98 (96-108) mmol/L Carbon Dioxide 31 H (22-29) mmol/L Anion Gap 11 L (12-20) BUN 20 H (9-16) mg/dL Creatinine 1.07 (0.5-1.4) mg/dL Estim Creat Clear Calc 149.8 Estimated GFR > 60 Random Glucose 114 (60-115) mg/dL Calcium 8.8 D (8.4-10.2) mg/dL Magnesium 1.6 (1.6-2.6) mg/dL Total Bilirubin 0.2 (0.0-1.0) mg/dL Direct Bilirubin < 0.2 (0.0-0.5) mg/dL AST 21 D (5-37) U/L ALT 20 (0-40) U/L Alkaline Phosphatase 87 (39-117) U/L Troponin I High Sens (<3.5-35.0) ng/L Total Protein 6.1 L (6.5-8.0) g/dL Albumin 3.4 L (3.5-5.0) g/dL Lipase 52 (8-78) U/L 12/11/20 Range/Units 14:31 WBC (4.8-10.8) X10*3/uL RBC (4.60-5.80) X10*6/uL Hgb (14.0-18.0) g/dl Hct (42-52) % MCV (80-98) fL MCH (27.0-33.0) pg MCHC (31.0-36.0) g/dl RDW (11.0-16.0) % Plt Count (160-400) X10*3/uL MPV Immature Gran % (Auto) (0.0-0.4) % Neut % (Auto) (45-73) % Lymph % (Auto) (20-40) % [place] % (Auto) (2-11) % Eos % (Auto) (0-4) % Baso % (Auto) (0-2) % Lymph # (Auto) (1.2-4.9) X10*3/uL [place] # (Auto) (0.1-1.2) X10*3/uL Eos # (Auto) (0.0-0.4) X10*3/uL Baso # (Auto) (0.0-0.2) X10*3/uL Abs Immat Gran (auto) (0.00-0.03) X10*3/uL Absolute Neuts (auto) (2.0-8.3) X10*3/uL Absolute Nucleated RBC (0.0-0.012) X10*3/uL Nucleated RBC % (auto) (0.0-0.2) /100WBC Smear Tech's Comments PT (10.8-13.0) SEC INR (0.9-1.1) APTT (24.1-38.0) SEC D-Dimer NG/ML Sodium (135-145) mmol/L Potassium (3.3-5.1) mmol/L Chloride (96-108) mmol/L Carbon Dioxide (22-29) mmol/L Anion Gap (12-20) BUN (9-16) mg/dL Creatinine (0.5-1.4) mg/dL Estim Creat Clear Calc Estimated GFR Random Glucose (60-115) mg/dL Calcium (8.4-10.2) mg/dL Magnesium (1.6-2.6) mg/dL Total Bilirubin (0.0-1.0) mg/dL Direct Bilirubin (0.0-0.5) mg/dL AST (5-37) U/L ALT (0-40) U/L Alkaline Phosphatase (39-117) U/L Troponin I High Sens < 3.5 D (<3.5-35.0) ng/L Total Protein (6.5-8.0) g/dL Albumin (3.5-5.0) g/dL Lipase (8-78) U/L ECG Data ECG #1: Attestation: I personally reviewed and interpreted this ECG as follows: ECG interpretation date: 12/11/20 ECG interpretation time: 14:12 Interpretation: Rate: 73 Rhythm: NSR [place]: normal Normal P waves. Normal FLORI. Normal QRS complex. ST T wave : normal no PILAR qTC: normal prior studies: no acute ischemia The study has been interpreted contemporaneously by me. . Discharge Plan Discharge Clinical Impression: Atypical chest pain, Pleural effusion Patient Disposition: Home, Self-Care Instructions: Pleurisy (ED), Pleural Effusion (ED) Additional Instructions: return to ED for any worsening symptoms or concerns negative cardiac workers, no pulmonary embolus, very small R pleural effusion Prescriptions: New prednisone 20 mg tablet 20 mg PO DAILY 4 Days Qty: 4 RF: 0 cefuroxime axetil 250 mg tablet 250 mg PO BID 7 Days Qty: 14 RF: 0 No Action fluticasone propion-salmeterol [Advair Diskus] 250-50 mcg/dose blister with device 1 inh inhalation BID RF: 0 demeclocycline 300 mg tablet 300 mg PO BID RF: 0 lisinopril 20 mg Tablet 20 mg PO DAILY RF: 0 semaglutide [Ozempic] 0.25 mg or 0.5 mg(2 mg/1.5 mL) pen injector 0.5 mg subcut QWEEK Qty: 1.5 RF: 3 aspirin 81 mg tablet,delayed release (DR/EC) 81 mg PO QAM Qty: 28 RF: 11 dexlansoprazole [Dexilant] 60 mg capsule,biphase delayed releas 60 mg PO DAILY Qty: 28 RF: 11 propranolol 20 mg tablet 20 mg PO TID Qty: 84 RF: 5 cyanocobalamin (vitamin B-12) 1,000 mcg Tablet 1,000 mcg PO DAILY RF: 0 atorvastatin 10 mg tablet 10 mg PO BEDTIME RF: 0 albuterol sulfate [Ventolin HFA] 90 mcg/actuation HFA aerosol inhaler 2 puff INHALATION Q6H PRN (Reason: Shortness Of Breath Or Wheezing) RF: 0 triamcinolone acetonide 0.1 % Cream 1 appl TOPICAL TID PRN (Reason: Rash) RF: 0 ondansetron 4 mg Tablet,Disintegrating 4 mg translingual DAILY PRN (Reason: Nausea) RF: 0 hydralazine 50 mg tablet 50 mg PO TID Qty: 56 RF: 5 amlodipine 5 mg tablet 5 mg PO DAILY RF: 0 lactase [Lactaid] 3,000 unit tablet 3,000 unit PO TID PRN (Reason: Lactose Intolerance) RF: 0 cholecalciferol (vitamin D3) [Vitamin D3] 25 mcg (1,000 unit) tablet 25 mcg PO DAILY RF: 0 gabapentin 100 mg capsule 200 mg PO BID RF: 0 risperidone 3 mg tablet 3 mg PO BID RF: 0 divalproex 500 mg tablet extended release 24 hr 2,000 mg PO BEDTIME RF: 0 Referrals: Physician,Unknown [Primary Care Provider] - 2 days
--- NOTE | 2020-12-11 13:41 | XR_ITS ---
EXAMINATION: XR CHEST CLINICAL INFORMATION: Chest pain COMPARISON: Previous exam most recent November 2020 TECHNIQUE: Frontal view of the chest was obtained. FINDINGS: The cardiac and mediastinal contours are stable. The lungs are clear. There is no pleural effusion or pneumothorax. There are degenerative changes of the spine. XR/XR chest 1V IMPRESSION: No evidence for acute disease in the chest.
[2020-12-11 13:54] VITALS: PULSE 74
[2020-12-11] MEDS: Acetaminophen 325 MG TABLET 650 MG PO (14:12)
[2020-12-11 14:42] LABS: Hemoglobin 9.9 g/dl (14.0-18.0); Imm Gran Abs Auto 0.03 X10*3/uL (0.00-0.03); Imm Gran Pct Auto 0.5 % (0.0-0.4); MANUAL DIFF FLAG SCAN; Monocytes Absolute Auto 0.7 X10*3/uL (0.1-1.2); PLT CLUMP 1; SCAN SMEAR FLAG 1
[2020-12-11 14:44] LABS: Basophils Percent Auto 0.6 % (0-2); Eosinophils Absolute Auto 0.1 X10*3/uL (0.0-0.4); Eosinophils Percent Auto 1.4 % (0-4); Hematocrit 30.3 % (42-52); Lymphocytes Absolute Auto 2.2 X10*3/uL (1.2-4.9); Lymphocytes Percent Auto 33.5 % (20-40); Mean Corpuscular HGB Conc 32.7 g/dl (31.0-36.0); Mean Corpuscular Hemoglobin 28.8 pg (27.0-33.0); Mean Corpuscular Volume 88.1 fL (80-98); Monocytes Percent Auto 10.5 % (2-11); Neutrophils Absolute Auto 3.5 X10*3/uL (2.0-8.3); Neutrophils Percent Auto 53.5 % (45-73); Platelet Count 124 X10*3/uL (160-400); Red Blood Count 3.44 X10*6/uL (4.60-5.80); Red Cell Distribution Width 14.7 % (11.0-16.0); White Blood Count 6.5 X10*3/uL (4.8-10.8)
[2020-12-11 14:47] VITALS: BP 134/85; PULSE 69; RESP 12; TEMP 36.6; O2SAT 100
[2020-12-11 14:52] LABS: Prothrombin Time 11.5 SEC (10.8-13.0)
[2020-12-11 14:55] LABS: Partial Thromboplastin Time 35.7 SEC (24.1-38.0)
[2020-12-11 15:07] LABS: Alanine Aminotransferase 20 U/L (0-40); Albumin Level 3.4 g/dL (3.5-5.0); Alkaline Phosphatase 87 U/L (39-117); Anion Gap 11 (12-20); Aspartate Amino Transferase 21 U/L (5-37); Bilirubin Direct < 0.2 mg/dL (0.0-0.5); Bilirubin Total 0.2 mg/dL (0.0-1.0); Blood Urea Nitrogen 20 mg/dL (9-16); Calcium 8.8 mg/dL (8.4-10.2); Carbon Dioxide 31 mmol/L (22-29); Chloride 98 mmol/L (96-108); Creatinine Clr Calc Pharmacy 149.8; Estimated Glomerular Filt Rate > 60; Glucose Random 114 mg/dL (60-115); Lipase 52 U/L (8-78); Magnesium 1.6 mg/dL (1.6-2.6); Potassium 5.1 mmol/L (3.3-5.1); Sodium 135 mmol/L (135-145); Total Protein 6.1 g/dL (6.5-8.0)
[2020-12-11 15:09] LABS: Troponin-I High Sensitivity < 3.5 ng/L (<3.5-35.0)
[2020-12-11 15:19] LABS: SLIDE REVIEW VERIFIED
[2020-12-11 15:25] LABS: D Dimer 1520 NG/ML
--- NOTE | 2020-12-11 15:26 | CT_ITS ---
EXAMINATION: CT ANGIOGRAM OF THE CHEST WITH AND WITHOUT CONTRAST (CT PULMONARY ANGIOGRAM FOR PE) CLINICAL INFORMATION: Reason for Exam recent COVID chest pain elevated ddimer COMPARISON: Previous chest x-ray most recent from earlier the same day TECHNIQUE: Prior to contrast administration, noncontrast localization images were obtained. Subsequently, multidetector volumetric imaging was performed from the thoracic inlet to below the diaphragms following the administration of 71 mL Omnipaque 350 intravenous contrast. No contrast reaction reported Sagittal, coronal, and MIP oblique sagittal reformatted images were obtained on the CT workstation, uploaded to PACS, and reviewed. This CT examination was performed using dose optimization techniques as appropriate, variously including the following: *Automated exposure control *Adjustment of mA and/or kV according to patient size (this includes techniques or standardized protocols for targeted exams where dose is matched to indication/reason for exam; i.e. extremities or head) *Use of iterative reconstruction technique Total exam dose-length product 456 mGy-cm FINDINGS: QUALITY OF STUDY/CONTRAST BOLUS: Satisfactory. PULMONARY ARTERIES: No central or segmental pulmonary emboli. THORACIC AORTA: No aneurysm or dissection. LUNG: The lung volumes are low. No focal consolidation, nodules or masses. PLEURA: There is a small right pleural effusion. There is no left pleural effusion. MEDIASTINUM: Normal heart size. No pericardial effusion. No hilar or mediastinal lymphadenopathy. No evidence of septal bowing or right heart strain. Normal caliber thoracic aorta. Direct origin of the left vertebral artery from the aortic arch. CHEST WALL/AXILLA: No axillary or internal mammary lymphadenopathy. OSSEOUS STRUCTURES: No acute or suspicious osseous abnormality. There are degenerative changes of the spine. UPPER ABDOMEN: Unremarkable. No reflux of contrast into the hepatic veins to suggest elevated right heart pressures. CT/CT angio chest PE protocol IMPRESSION: No evidence of pulmonary embolism. Small right pleural effusion. Low lung volumes. VTE: negative
[2020-12-11] MEDS: iohexoL 350 MG/ML 100 ML INFUS..BTL IV (16:01)
[2020-12-11 16:07] VITALS: BP 149/73; PULSE 80; RESP 16; TEMP 37.1; O2SAT 98
[2020-12-11 16:50] VITALS: O2SAT 99
--- NOTE | 2020-12-11 17:07 | PC.NURSE ---
x1 attempt to give report to [facility], unble to reach anyone at this time. [employer] booking transport.
[2020-12-11] MEDS: predniSONE 20 MG TABLET PO (17:38)
--- NOTE | 2020-12-11 19:02 | PC.NURSE ---
second attempt to give report - unable to get ahold of any staff.
== END 2020-12-11 19:53 | disposition home or self-care (01) ==
PROVIDERS: Emergency Provider Emergency Medicine
DX: R07.89 Other chest pain (principal); J90 Pleural effusion, not elsewhere classified; Z86.16 Personal history of COVID-19; I10 Essential (primary) hypertension; E11.9 Type 2 diabetes mellitus without complications; Z87.891 Personal history of nicotine dependence; Z79.899 Other long term (current) drug therapy
CPT/HCPCS: 36415; 71045; 71275; 80048; 80076; 83690; 83735; 84484; 85025; 85379; 85610; 85730; 93005; 99284; Q9967

== ENCOUNTER → 2021-01-10 12:51 | Outpatient (BNVA) | payer MEDICARE, MEDICAID, SELFPAY | PROVIDERS: PCP Internal Medicine; Visit Provider Nurse Practitioner Family | DX: Z13.89 Encounter for screening for other disorder (principal) | CPT/HCPCS: Q3014 ==

== ENCOUNTER → 2021-01-11 08:08 | Outpatient (BNVA) | payer MEDICARE, MEDICAID, SELFPAY | PROVIDERS: PCP Internal Medicine; Visit Provider Nurse Practitioner Gerontology | CPT/HCPCS: Q3014 ==

== ENCOUNTER 2021-01-12 09:50 | Outpatient (REF) | payer MEDICARE, MEDICAID, SELFPAY ==
[2021-01-12 11:12] LABS: Imm Gran Abs Auto 0.02 X10*3/uL (0.00-0.03)
[2021-01-12 11:14] LABS: Basophils Percent Auto 0.4 % (0-2); Eosinophils Absolute Auto 0.1 X10*3/uL (0.0-0.4); Eosinophils Percent Auto 1.3 % (0-4); Hematocrit 30.3 % (42-52); Hemoglobin 10.4 g/dl (14.0-18.0); Imm Gran Pct Auto 0.4 % (0.0-0.4); Lymphocytes Absolute Auto 1.6 X10*3/uL (1.2-4.9); Lymphocytes Percent Auto 36.3 % (20-40); Mean Corpuscular HGB Conc 34.3 g/dl (31.0-36.0); Mean Corpuscular Hemoglobin 29.1 pg (27.0-33.0); Mean Corpuscular Volume 84.9 fL (80-98); Mean Platelet Volume 9.9 fL (9.4-12.4); Monocytes Absolute Auto 0.4 X10*3/uL (0.1-1.2); Monocytes Percent Auto 7.8 % (2-11); Neutrophils Absolute Auto 2.4 X10*3/uL (2.0-8.3); Neutrophils Percent Auto 53.8 % (45-73); Platelet Count 122 X10*3/uL (160-400); Red Blood Count 3.57 X10*6/uL (4.60-5.80); Red Cell Distribution Width 13.9 % (11.0-16.0); White Blood Count 4.5 X10*3/uL (4.8-10.8)
[2021-01-12 11:29] LABS: MANUAL DIFF FLAG NO
[2021-01-12 11:45] LABS: Alanine Aminotransferase 32 U/L (0-40); Albumin Level 3.7 g/dL (3.5-5.0); Alkaline Phosphatase 79 U/L (39-117); Ammonia 32 umol/L (13-55); Anion Gap 11 (12-20); Aspartate Amino Transferase 34 U/L (5-37); Bilirubin Total 0.5 mg/dL (0.0-1.0); Blood Urea Nitrogen 15 mg/dL (9-16); Calcium 8.6 mg/dL (8.4-10.2); Carbon Dioxide 28 mmol/L (22-29); Chloride 98 mmol/L (96-108); Cholesterol 125 mg/dL; Estimated Glomerular Filt Rate > 60; Glucose Random 89 mg/dL (60-115); HDL Cholesterol 33 mg/dL; LDL Cholesterol Calculated 75 mg/dl; Potassium 4.1 mmol/L (3.3-5.1); Sodium 133 mmol/L (135-145); Total Protein 6.4 g/dL (6.5-8.0); Triglycerides 87 mg/dL
[2021-01-12 11:46] LABS: Alanine Aminotransferase 32 U/L (0-40); Albumin Level 3.6 g/dL (3.5-5.0); Alkaline Phosphatase 78 U/L (39-117); Anion Gap 16 (12-20); Aspartate Amino Transferase 33 U/L (5-37); Bilirubin Total 0.4 mg/dL (0.0-1.0); Blood Urea Nitrogen 17 mg/dL (9-16); Calcium 8.7 mg/dL (8.4-10.2); Carbon Dioxide 25 mmol/L (22-29); Chloride 99 mmol/L (96-108); Cholesterol 127 mg/dL; Estimated Glomerular Filt Rate > 60; Glucose Fasting 91 mg/dL (60-99); HDL Cholesterol 33 mg/dL; LDL Cholesterol Calculated 77 mg/dl; Potassium 4.2 mmol/L (3.3-5.1); Sodium 136 mmol/L (135-145); Total Protein 6.3 g/dL (6.5-8.0); Triglycerides 89 mg/dL
[2021-01-12 11:47] LABS: Alanine Aminotransferase 32 U/L (0-40); Albumin Level 3.7 g/dL (3.5-5.0); Alkaline Phosphatase 79 U/L (39-117); Aspartate Amino Transferase 33 U/L (5-37); Bilirubin Direct 0.2 mg/dL (0.0-0.5); Bilirubin Total 0.4 mg/dL (0.0-1.0); Total Protein 6.3 g/dL (6.5-8.0)
[2021-01-12 11:59] LABS: Valproate 105.8 mcg/mL (50.0-100.0)
[2021-01-12 12:05] LABS: Ferritin 11 ng/mL (20-250)
[2021-01-12 12:07] LABS: Free T4 (Free Thyroxine) 1.27 ng/dL (0.71-1.85)
[2021-01-12 12:28] LABS: Folate 10.6 ng/mL (> or = 4.0); Vitamin B12 1797 pg/mL (200-900)
[2021-01-12 13:01] LABS: Estimated Average Glucose 100 mg/dL; Hemoglobin A1c % 5.1 %
== END 2021-01-12 09:51 | disposition home or self-care (01) ==
LOC: HO.HMGCLDS 09:50
PROVIDERS: Internal Medicine; Internal Medicine Medical Oncology; Nurse Practitioner Gerontology; Visit Provider General Practice
DX: D64.9 Anemia, unspecified (principal); E11.29 Type 2 diabetes mellitus with other diabetic kidney complication; E78.5 Hyperlipidemia, unspecified; I10 Essential (primary) hypertension; F31.9 Bipolar disorder, unspecified; Z79.899 Other long term (current) drug therapy
CPT/HCPCS: 36415; 80053; 80061; 80076; 80164; 82140; 82248; 82607; 82728; 82746; 83036; 84439; 84443; 85025

== ENCOUNTER → 2021-02-08 14:21 | Outpatient (BNVA) | payer MEDICARE, MEDICAID, SELFPAY | PROVIDERS: PCP Internal Medicine; Visit Provider Nurse Practitioner Family | DX: Z13.89 Encounter for screening for other disorder (principal) | CPT/HCPCS: Q3014 ==

== ENCOUNTER 2021-02-14 14:34 | Outpatient (REF) | payer MEDICARE, MEDICAID, SELFPAY ==
--- NOTE | ~2021-02-14 | FL_ITS ---
EXAMINATION: XR BARIUM SWALLOW CLINICAL INFORMATION: Dysphasia. COMPARISON: None TECHNIQUE: Modified barium swallow with speech pathologist. FINDINGS: Patient swallowed a combination of consistencies from thin liquid to barium-coated cracker. On initial swallow of thin liquid, there was laryngeal penetration and tracheal aspiration which did not elicit a cough reflex. No other time of aspiration was evident including with repeat thin liquid ingestion. No nasopharyngeal reflux was appreciated. No Zenker's diverticulum. FLUOROSCOPY TIME: 1.4 minutes. DOSE AREA PRODUCT: 1.845 Gycm2. FL/FL barium swallow modified IMPRESSION: 1. Laryngeal penetration with aspiration and no cough reflex on one swallow of thin liquid which was not reproduced at other times during the study. 2. Please refer to speech pathologist's report for details.
--- NOTE | 2021-02-15 15:28 | MHC.SL.IMP ---
Date of Plan of Treatment: 02/14/21 Onset of Symptoms/Illness: 02/15/20 Date Treatment Started: 02/14/21 Admitting Diagnosis: Anemia Anxiety Asthma Cerebellar ataxia Depression Hypertension Hyperlipidemia Hyponatremia Lactose intolerance Mental disability Morbid obesity Peripheral vascular disease Proteinuria Seizure disorder Diabetes mellitus type 2 Vertigo Current Surgical History: Orchiectomy Primary Speech & Language Diagnosis: R13.12 Oropharyngeal Phase Dysphagia Secondary Speech & Language Diagnosis: R13.14 Pharyngoesophageal Phase Dysphagia Pre-evaluation Dietary Consistencies: Grnd/Mech Altered (NDD2) Pre-evaluation Liquid Consistency: Thin Pre-evaluation Medication Administration: Unknown Medical History: Reason for Study: Patient displays overt s/s of aspiration. Referring Physician: Pretty SCHULZ Evaluating Clinician: Tana Coates M.A., CCC-RETAIL REPRESENTATIVE Study Number: 1 Patient Name: Raulito Zepeda Status: Outpatient, Ambulatory/Assisted Age: 50 Gender: Male Year of Onset or Diagnosis: 2020 Comorbidities: Anemia Anxiety Asthma Cerebellar ataxia Depression Hypertension Hyperlipidemia Hyponatremia Lactose intolerance Mental disability Morbid obesity Peripheral vascular disease Proteinuria Seizure disorder Diabetes mellitus type 2 Vertigo Current Surgical History: Orchiectomy Current (pre-evaluation) Intake/Diet: Route: PO Diet Grade: Mechanical Soft Liquid Consistencies: Thin Pre-Study Functional Oral Intake Scale (FOIS): 5- Total oral intake of multiple consistencies requiring special preparation Pain: None reported at time of study Oral Motor Exam Facial Symmetry: Symmetrical Mouth Occlusion: Normal Oral-Facial Teeth Characteristics: Partially Missing Broken Spaces Oral-Facial Lip Pucker Description: Normal Oral-Facial Smile (Lips) Description: Normal Oral-Facial Puff Cheeks Description: Reduced Strength Tongue Size: Normal Tongue Excursion Description: Normal Tongue Range of Movement Description: Normal Tongue Speed of Movement Description: Reduced Tongue Strength of Movement (against opposing pressure): Reduced Tongue Movement Characteristics: Normal/Absent Is patient able to manage secretions?: Yes Food and Liquid Trials: Oral Impairment: Lip Closure: 0=No labial escape Oral Impairment: Tongue Control During Bolus Hold: 2=Posterior escape of less than half of bolus Oral Impairment: Bolus Preparation/Mastication: 1=Slow prolonged chewing/mashing with complete re-collection Oral Impairment: Bolus Transport/Lingual Motion: 1= Delayed initiation of tongue motion Oral Impairment: Oral Residue: 1=Trace residue lining oral structures Oral Impairment:Initiation of Pharyngeal Swallow: 3=Bolus head in pyriforms Pharyngeal Impairment: Soft Palate Elevation: 0=No bolus between soft palate (SP)/pharyngeal wall (PW) Pharyngeal Impairment: Larngeal Elevation: 1=Partial thyroid cartilage/arytenoids to epiglottic petiole movement Pharyngeal Impairment: Anterior Hyoid Excursion: 1=Partial anterior movement Pharyngeal Impairment: Epiglottic Movement: 1=Partial inversion Pharyngeal Impairment: Laryngeal Vestibular Closure:: 1=Incomplete: narrow column air/contrast in laryngeal vestibule Pharyngeal Impairment: Pharyngeal Stripping Wave: 1=Present: diminished Pharyngeal Impairment: Pharyngeal Contraction: Did not test Pharyngeal Impairment: Pharyngoesophageal Segment Openin=Complete distension and complete duration: no obstruction of flow Pharyngeal Impairment: Tongue Base (TB) Retraction: 3=Wide column of contrast/air between TB and posterior PW Pharyngeal Impairment: Pharyngeal Residue: 1=Trace residue within or on pharyngeal structures Pharyngeal Impairment: Espohogeal Clearance Upright Position: Did not test Impressions and Recommendations Clinicial Observations: OBJECTIVE: Time-out: performed at 02:45 Evaluation Start: 02:30; Stop: 02:40 Patient Positioning: Seated 70-90 degrees Viewing Planes: LATERAL ONLY Contrast: MBSImP? Standardized Protocol using commercially prepared, standardized Barium viscosities, including: Varibar? THIN LIQUID (40% w/v, <15 cps) , Varibar? NECTAR (40% w/v, <150-450 cps) , Varibar? THIN HONEY (40% w/v, <800-1800 cps) , 1/2 Shortbread Cookie (1 x1 x.25 ) MBSImP ID: [id number] MBSImP Results: Lip closure for intraoral bolus containment resulted in no labial escape. Tongue control during bolus hold resulted in posterior escape of less than half of the bolus. Bolus preparation and mastication resulted in slow, prolonged chewing/mashing but with complete re-collection. Bolus transport/lingual motion demonstrated delayed initiation of tongue motion. Oral residue was a trace, lining oral structures. Initiation of the pharyngeal swallow occurred when the bolus head was in the pyriform sinuses. Soft palate elevation resulted in no bolus between the soft palate and the pharyngeal wall. Laryngeal elevation was decreased, with partial superior movement of the thyroid cartilage/partial approximation of the arytenoids to the epiglottic petiole. Anterior hyoid excursion demonstrated partial anterior movement. Epiglottic movement resulted in partial inversion. Laryngeal vestibular closure was incomplete, with a narrow column of air/contrast noted within the laryngeal vestibule at the height of the swallow. Pharyngeal stripping wave was present, but diminished. Pharyngeal contraction could not be determined due to logistical reasons not related to physiologic impairment. Pharyngoesophageal segment opening was completely distended for complete duration with no obstruction of bolus flow. Tongue base retraction allowed a wide column of contrast or air between the retracted tongue base and the posterior pharyngeal wall. Pharyngeal residue was a trace within or on pharyngeal structures. Esophageal clearance in the upright position could not be assessed due to logistical reasons not related to physiologic impairment. Oral Impairment Score: 7 Pharyngeal Impairment Score: 8 (absence of score, component 13) Esophageal Impairment Score: --- (absence of score, component 17) Laryngeal Penetration and Aspiration: Aspiration was observed in today's study. Thin Contrast entered the airway, passed below the vocal folds, and no effort was made to eject. ASSESSMENT: This exam was conducted by speech-language pathologist and radiologist. Patient was seated in chair at 90 degree angle for lateral view only. Patient was able to feed himself and trialed the following liquid and solid consistencies: -5 mL thin liquid barium -teaspoon honey thick liquid barium -cup sip nectar thick liquid barium -pureed solid (applesauce mixed with barium paste) -ground solid (chicken salad mixed with barium paste) -regular solid (Mirna Doone cookie coated in barium paste) Patient displays moderate oropharyngeal dysphagia characterized by impairments in the following components of swallow physiology: ORAL PHASE: -posterior escape of bolus -prolonged mastication -delayed AP transport -delayed pharyngeal swallow trigger when bolus head reached pyriforms PHARYNGEAL PHASE: -partial laryngeal elevation with partial anterior hyoid movement and partial epiglottic inversion -incomplete laryngeal vestibular closure leading to episode of aspiration -reduced tongue base retraction Evidence of aspiration when patient drank 5 mL thin liquid barium. Silent aspiration on thin liquid during the swallow. No effort was made to eject contrast from airway. Trace thin contrast passed below the vocal folds. No aspiration or penetration with nectar thick and honey thick liquids. No aspiration or penetration with solids. Delayed pharyngeal swallow trigger. Solids and liquids collected in valleculae and pyriforms prior to initiation of swallow trigger and then subsequently cleared. Good oral and pharyngeal clearance. Good clearance through PES. Staff reports symptoms consistent with esophageal dysphagia, such as burping while eating and vomiting. Recommend continued consultation with G.I. specialist. The following compensatory strategies have not been used until today's study, but when employed, improved swallowing function: [place]-thick Liquid eliminated Aspiration Honey-thick Liquid eliminated Aspiration Liquid Intake Recommendation: [place] Thick Liquid Intake Strategies: Small Sips, No Straws Dietary Recommendations: Chopped/Advanced (NDD3) Medication Administration: Whole with Puree Compensatory Strategies Recommended: Sitting Upright (90 deg) No Straw Liquids from Cup Liquids from Spoon Small Bites and Sips Rate of Ingestion Change Avoid Specific Foods Supervision during eating and or drinking: Total Supervision (1:1) Recommended Treatments: Pharyngeal Resistive Exer Compens. Strategy Educat. Recommendation for Speech Therapy: Speech Therapy through [facility] Intake Recommendations: Route: PO Diet Grade: Chopped/ Advanced ? National Dysphagia Diet Level 3 (NDD3) Liquid Consistencies: [place] Post-Study Functional Oral Intake Scale (FOIS): 5- Total oral intake of multiple consistencies requiring special preparation Evidence of aspiration during this exam. Staff at [facility] report impulsive eating behaviors. Recommend CHOPPED/ADVANCED (NDD3) solids and NECTAR THICK liquids. The following aspiration precautions are crucial: -small individual sips of liquid by cup or straw -due to delay in swallow trigger, recommend AVOID STRAWS -no consecutive sips or ?chugging? of liquids -small bites of food, one bite at a time -chew food well and clear oral cavity before taking more bites -cut food into small bite size pieces and soften/moisten with sauce/gravy -upright 90 degree position when eating and drinking -total supervision by [facility] staff or caregiver to ensure aspiration precautions -avoid tough and sticky foods -avoid mixed consistencies (i.e. cereal; soup with thin broth) -frequent oral care at least 4 times daily Patient is recommended speech therapy for dysphagia through preferably [facility] or otherwise on outpatient basis to provide support for patient and caregivers/staff at [facility]. Recommend education RE: signs of aspiration, risks of aspiration, aspiration precautions/strategies, compensatory strategies/safe eating behaviors, thickener, and national dysphagia diet level guidelines. Suggested Referrals: The patient might benefit from a referral to: Gastroenterology Indication for Referral: further workup RE: symptoms of esophageal dysphagia Therapy Recommendations: Therapy will be initiated The following compensatory strategies and/or therapeutic exercises will be part of the upcoming therapy/management plan: [place]-thick Liquid Honey-thick Liquid Bolus Volume Change Rate of Ingestion Change Prognosis for Improvement: The prognosis for the patient to meet nutritional needs by mouth is fair based on degree of impairment, stimulability for treatment. Frequency/Duration: TBD Date Range for Service Requested: TBD Timeline to reassess: 3 months Wood Scrap Handler Clinican/Clinical Fellow: No Supervisory Statement: N/A Speech Language Pathologist: Tana Coates M.A., CCC-RETAIL REPRESENTATIVE
--- NOTE | 2021-02-16 14:46 | MHC.SLORD ---
Speech Language Pathology Order Status: MBSS completed on 02/14. Evidence of aspiration with thin liquid. Patient is recommended CHOPPED/ADVANCED (NDD3) solids and NECTAR THICK liquids. Recommend referral for speech therapy through [facility] to provide support for patient and care team. Patient was accompanied by senior site manager, Mrs. Brenda Taylor, from [facility] where he resides. LPTA discussed results with her after exam in-person and later on the phone. Report faxed to referring physician Pretty Boateng from .., PCP [facility], and [facility]. LPTA left voicemail message for senior site manager and customer program specialist requesting call back to confirm they had received report.
== END 2021-02-14 14:35 | disposition home or self-care (01) ==
LOC: HO.XRAY 14:34
PROVIDERS: Visit Provider Nurse Practitioner Family
DX: R13.10 Dysphagia, unspecified (principal)
CPT/HCPCS: 74230; 92610

== ENCOUNTER 2021-03-05 11:13 | Emergency (ER) | payer MEDICARE, MEDICAID, SELFPAY ==
[2021-03-05] VITALS (7 sets, daily range): BP systolic 126–136; BP diastolic 50–93; PULSE 68–86; RESP 12–18; TEMP 36.8; O2SAT 96–99; BMI 44.4
--- NOTE | ~2021-03-05 | CT_ITS ---
EXAMINATION: CT HEAD WITHOUT CONTRAST CLINICAL INFORMATION: Headache. Lightheadedness. COMPARISON: CT head 09/26/2020 TECHNIQUE: Contiguous axial imaging was performed from the skull base to vertex without intravenous administration of contrast. Coronal and sagittal reformatted images are performed at the CT scanner. [This CT examination was performed using dose optimization techniques as appropriate, variously including the following: *Automated exposure control *Adjustment of mA and/or kV according to patient size (this includes techniques or standardized protocols for targeted exams where dose is matched to indication/reason for exam; i.e. extremities or head) *Use of iterative reconstruction technique] DLP: 749 mGy-cm. FINDINGS: There is no evidence of acute intracranial hemorrhage or territorial infarction. No abnormal mass-effect or midline shift is seen. Shell to white matter differentiation is well preserved. No extra-axial fluid collections are identified. The ventricles are normal in size. There is no abnormal attenuation within the brain parenchyma. There is no osseous abnormality. The mastoid air cells and visualized portions of the paranasal sinuses are well-aerated. CT/CT head/brain wo con IMPRESSION: No acute intracranial pathology.
--- NOTE | ~2021-03-05 | XR_ITS ---
EXAMINATION: XR CHEST CLINICAL INFORMATION: Chest pain COMPARISON: Previous chest x-rays most recent December 2020 TECHNIQUE: Frontal view of the chest was obtained. FINDINGS: The cardiac silhouette does not appear enlarged. There are increased perihilar markings questionable for pulmonary venous redistribution versus infiltrate. The lungs are otherwise clear. There is no pleural effusion or pneumothorax. There are degenerative changes of the spine. XR/XR chest 1V IMPRESSION: Increased perihilar markings questionable for pulmonary venous redistribution versus infiltrate.
--- NOTE | 2021-03-05 07:54 | ECG_ITS ---
Test Reason : CP Blood Pressure : / mmHG Vent. Rate : 084 BPM Atrial Rate : 084 BPM P-R Int : 176 ms QRS Dur : 082 ms QT Int : 386 ms P-R-T Axes : 074 -09 023 degrees QTc Int : 456 ms Normal sinus rhythm Possible Inferior infarct , age undetermined Abnormal ECG When compared with ECG of 05-MAR-2021 11:51, No significant change was found Referred By: Nava Sanchez Electronically Signed By:LINDA CHAMBERLAIN MD
--- NOTE | 2021-03-05 11:43 | ECG_ITS ---
Test Reason : CHEST PAIN Blood Pressure : / mmHG Vent. Rate : 083 BPM Atrial Rate : 267 BPM P-R Int : 000 ms QRS Dur : 078 ms QT Int : 378 ms P-R-T Axes : 032 006 033 degrees QTc Int : 444 ms Poor data quality Undetermined rhythm Low voltage QRS Septal infarct , age undetermined Abnormal ECG When compared with ECG of 11-DEC-2020 13:44, Poor data quality in current ECG precludes serial comparison Repeat EKG without artefact Referred By: Nava Sanchez Electronically Signed By:LINDA CHAMBERLAIN MD
--- NOTE | 2021-03-05 12:03 | ED.CHESTPAIN ---
HPI - Chest Pain General Chief Complaint: Chest Pain Stated Complaint: CHEST PAIN [id number] Time Seen by Provider: 03/05/21 11:29 Source: patient and EMS Mode of arrival: EMS History of Present Illness HPI narrative: 50-year-old male with past medical history of anemia, anxiety, asthma, cerebral ataxia, depression, hypertension, hyperlipidemia, mental disability, obesity, PVD, proteinuria, seizure disorder, diabetes, vertigo, presenting to the ED complaining of right-sided chest pain radiating down RUE and RLE since this morning with associated SOB and lightheadedness. Admits symptoms began at rest. Denies fever, chills, cough, abdominal pain, nausea, vomiting, diarrhea. Reports chronic LE edema MD complaint: chest pain Related Data Home Medications Medication Instructions Recorded Confirmed demeclocycline 300 mg PO BID 09/04/20 01/11/21 lisinopril 20 mg PO DAILY 09/04/20 01/11/21 lactase 3,000 unit tablet 3,000 unit PO TID PRN tab 09/08/20 01/11/21 gabapentin 100 mg capsule 200 mg PO BID 09/22/20 01/11/21 risperidone 3 mg tablet 3 mg PO BID 09/22/20 01/11/21 albuterol sulfate [Ventolin HFA] 2 puff INHALATION Q6H PRN 11/28/20 01/23/21 atorvastatin 10 mg PO BEDTIME 11/28/20 01/23/21 ondansetron 4 mg TRANSLINGUAL DAILY PRN 11/28/20 01/23/21 triamcinolone acetonide 1 appl TOPICAL TID PRN 11/28/20 01/23/21 acetaminophen [Tylenol] 650 mg PO Q4H PRN 01/23/21 01/23/21 amlodipine [Norvasc] 5 mg PO DAILY 01/23/21 01/23/21 aspirin [Ecotrin Low Strength] 01/23/21 divalproex [Depakote ER] 1,000 mg PO DAILY 01/23/21 01/23/21 guaifenesin [Robitussin Chest 200 mg PO Q4H PRN 01/23/21 01/23/21 Congestion] [id number] 1 appl TOPICAL DAILY 01/23/21 01/23/21 [Triple Antibiotic] Previous Rx's Medication Instructions Recorded dexlansoprazole 60 mg 60 mg PO DAILY #28 cap 11/30/20 capsule,biphase delayed release propranolol 20 mg tablet 20 mg PO TID #84 tab 12/04/20 hydralazine 50 mg PO TID #56 tab 12/05/20 blood sugar diagnostic 1 strip MISCELLANEOUS TID PRN #200 12/12/20 strip cholecalciferol (vitamin D3) 25 25 mcg PO DAILY #28 tab 12/19/20 mcg (1,000 unit) tablet methylcellulose (laxative) 500 mg 500 mg PO DAILY #30 tab 01/10/21 tablet simethicone 125 mg capsule 125 mg PO TID-QID PRN #120 cap 01/10/21 fluticasone 250 mcg-salmeterol 50 1 ea PO BID #60 ea 01/26/21 mcg/dose blistr powdr for inhalation cyanocobalamin (vitamin B-12) 1,000 mcg PO DAILY #28 tab 02/12/21 1,000 mcg tablet metformin 1,000 mg tablet 1,000 mg PO BID #56 tab 02/12/21 furosemide 20 mg tablet 20 mg PO QAM #14 tab 02/28/21 Allergies Allergy/AdvReac Type Severity Reaction Status Date / Time Sulfa (Sulfonamide Allergy Severe LANDEROS Verified 02/08/21 14:22 Antibiotics) ALICIA REACTION, Landeros Alicia trimethoprim Allergy Mild UNKNOWN Verified 02/08/21 14:22 lactose AdvReac Mild STOMACH Verified 02/08/21 14:22 UPSET Review of Systems Review of Systems: Constitutional: No Fever, No Chills ENT/Mouth: No Nasal Congestion, No Sinus Pain, No Hoarseness, No sore throat Cardiovascular: + Chest Pain, + SOB, +chronic Edema Respiratory: No Cough, No Dyspnea Gastrointestinal: No Nausea, No Vomiting, No Diarrhea, No Constipation, No Abdominal pain Genitourinary: No Dysuria, No Urinary Frequency, No Hematuria Musculoskeletal: No joint pain, No Myalgias, No Joint Swelling Skin: No Skin Lesions, No rash Neuro: No Weakness, No Numbness, No Paresthesias, +Lightheadedness, No Headache Yes all other systems are reviewed and are negative PMFSH Past Medical History Attestation statement: The following information was validated with the patient. Medical History Anemia Anxiety Asthma BMI 40.0-44.9, adult Cerebellar ataxia Depression Essential hypertension Hyperlipidemia LDL goal <100 Hypertension Hyponatremia Lactose intolerance Mental disability Morbid obesity due to excess calories Obesity Peripheral vascular disease Proteinuria Seizure disorder Type 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 Vertigo Surgical History History of orchiectomy Family History Family History Father Myocardial infarction CVD (cardiovascular disease) Diabetes mellitus Mother Diabetes mellitus HTN (hypertension) Brother In good health Sister In good health Social History Social History (Updated 02/08/21 @ 14:25 by YANNA Swan) Household Members: Other Housing: Assisted Living Facility Alcohol intake: never Smoking Status: Never smoker Use of substances other than those prescribed or required for medical reasons: No Advance Directives: No Advance Directives Information Provided: Yes service: No Current occupational status: disabled Physical Exam Vital Signs: Vital Signs: Last Vital Signs Temp 98.2 F 03/05/21 11:22 Pulse 76 03/05/21 16:06 Resp 16 03/05/21 16:05 BP 129/61 03/05/21 16:06 Pulse Ox 96 03/05/21 16:05 Body Mass Index 44.4 Const: General: cooperative, healthy appearing, no acute distress, well developed, alert and awake Orientation/consciousness: patient oriented x3 Limitations: no limitations HENMT: Head: Yes normal to inspection Ears: hearing grossly normal bilaterally General nose exam: Normal external nose present Face and sinus: Yes normal facial exam Eyes: General: appearance normal, both eyes and all related structures EOM: EOMs intact bilaterally Neck: Neck: Yes normal visual inspection and Yes no meningeal signs Chest: Chest palpation & inspection: normal inspection of the chest Resp: Effort & Inspection: normal respiratory effort Auscultation: clear to auscultation bilaterally, no rales and no wheezes Cardio: Rate: regular rate Heart sounds: S1 normal heart sound present and S2 normal heart sound present GI: Inspection: Yes normal to inspection Palpation (GI): Soft to palpation, nontender, no guarding and not rigid Skin: Rashes: no rashes Wounds: no wounds Neuro: General: patient oriented x3, tone normal, moves all extremities, no meningeal signs and no focal motor deficits Motor exam (neuro): 5/5 motor strength present throughout and Pronator motor function not present Coordination: [id number] test normal Extrem: General: Yes normal to inspection and Yes edema (+b/l LE edema >LLE (chronically)) Course Course Course Narrative: -no leukocytosis, H&H stable, Magnesium noted to be low at 1.3 > IV repletion ordered, initial troponin < 5, will obtain 3 hour repeat, labs otherwise unremarkable XR chest 1V IMPRESSION: Increased perihilar markings questionable for pulmonary venous redistribution versus infiltrate. > unlikely pneumonia, will give 40 of IV Lasix -orthostatic vital signs negative however patient reporting he feels too lightheaded/dizzy to stand. Reports at baseline ambulates with walker. IVF/meclizine ordered. On my re-evaluation finger to intact/no pronator drift. Patient does not believe he can ambulate, requesting to be admitted. Discussed with him no need for admission at this time. Will obtain head CT to rule any IC pathology. If negative will obtain PT/cm eval -1700-- ED care transferred to [facility] pending repeat troponin UA, head CT and PT/case management evaluation MDM - Chest Pain MDM Narrative Medical decision making narrative: 50-year-old male with past medical history of anemia, anxiety, asthma, cerebral ataxia, depression, hypertension, hyperlipidemia, mental disability, obesity, PVD, proteinuria, seizure disorder, diabetes, vertigo, presenting to the ED complaining of right-sided chest pain radiating down RUE and RLE since this morning with associated SOB and lightheadedness. On exam VSS, NAD, lungs CTA, bilateral chronic LE edema >LLE. Concern for ACS vs CHF. Unlikely pneumonia/COPD/PE Plan: EKG, labs, CXR, reassess Medical Records Data Attestation: I reviewed the patient's medical records. Lab Data Attestation: I reviewed the patient's lab results. Result diagrams: 03/05/21 12:24 03/05/21 12:24 Labs: Lab Results 03/05/21 03/05/21 03/05/21 Range/Units 12:23 12:24 12:24 WBC 5.4 (4.8-10.8) X10*3/uL RBC 3.62 L (4.60-5.80) X10*6/uL Hgb 10.4 L (14.0-18.0) g/dl Hct 31.4 L (42-52) % MCV 86.7 (80-98) fL MCH 28.7 (27.0-33.0) pg MCHC 33.1 (31.0-36.0) g/dl RDW 13.6 (11.0-16.0) % Plt Count 126 L (160-400) X10*3/uL MPV 9.8 (9.4-12.4) fL Immature Gran % (Auto) 0.6 H (0.0-0.4) % Neut % (Auto) 57.7 (45-73) % Lymph % (Auto) 28.0 (20-40) % [place] % (Auto) 10.3 (2-11) % Eos % (Auto) 2.8 (0-4) % Baso % (Auto) 0.6 (0-2) % Lymph # (Auto) 1.5 (1.2-4.9) X10*3/uL [place] # (Auto) 0.6 (0.1-1.2) X10*3/uL Eos # (Auto) 0.2 (0.0-0.4) X10*3/uL Baso # (Auto) 0.0 (0.0-0.2) X10*3/uL Abs Immat Gran (auto) 0.03 (0.00-0.03) X10*3/uL Absolute Neuts (auto) 3.1 (2.0-8.3) X10*3/uL Absolute Nucleated RBC 0.000 (0.0-0.012) X10*3/uL Nucleated RBC % (auto) 0.0 (0.0-0.2) /100WBC Hold Blue Top Sodium 135 (135-145) mmol/L Potassium 4.6 (3.3-5.1) mmol/L Chloride 101 (96-108) mmol/L Carbon Dioxide 24 (22-29) mmol/L Anion Gap 15 (12-20) BUN 19 H (9-16) mg/dL Creatinine 1.18 (0.5-1.4) mg/dL Estim Creat Clear Calc 94.4 Estimated GFR > 60 POC Glucose (60-115) mg/dL Random Glucose 111 (60-115) mg/dL Calcium 8.8 (8.4-10.2) mg/dL Magnesium 1.3 L* (1.6-2.6) mg/dL Total Bilirubin 0.4 (0.0-1.0) mg/dL Direct Bilirubin < 0.2 (0.0-0.5) mg/dL AST 34 (5-37) U/L ALT 37 (0-40) U/L Alkaline Phosphatase 80 (39-117) U/L Troponin I High Sens (<3.5-35.0) ng/L B-Natriuretic Peptide 59 (<100) pg/mL Total Protein 5.9 L (6.5-8.0) g/dL Albumin 3.4 L (3.5-5.0) g/dL 03/05/21 03/05/21 03/05/21 Range/Units 12:24 12:24 16:21 WBC (4.8-10.8) X10*3/uL RBC (4.60-5.80) X10*6/uL Hgb (14.0-18.0) g/dl Hct (42-52) % MCV (80-98) fL MCH (27.0-33.0) pg MCHC (31.0-36.0) g/dl RDW (11.0-16.0) % Plt Count (160-400) X10*3/uL MPV (9.4-12.4) fL Immature Gran % (Auto) (0.0-0.4) % Neut % (Auto) (45-73) % Lymph % (Auto) (20-40) % [place] % (Auto) (2-11) % Eos % (Auto) (0-4) % Baso % (Auto) (0-2) % Lymph # (Auto) (1.2-4.9) X10*3/uL [place] # (Auto) (0.1-1.2) X10*3/uL Eos # (Auto) (0.0-0.4) X10*3/uL Baso # (Auto) (0.0-0.2) X10*3/uL Abs Immat Gran (auto) (0.00-0.03) X10*3/uL Absolute Neuts (auto) (2.0-8.3) X10*3/uL Absolute Nucleated RBC (0.0-0.012) X10*3/uL Nucleated RBC % (auto) (0.0-0.2) /100WBC Hold Blue Top SEE NOTE Sodium (135-145) mmol/L Potassium (3.3-5.1) mmol/L Chloride (96-108) mmol/L Carbon Dioxide (22-29) mmol/L Anion Gap (12-20) BUN (9-16) mg/dL Creatinine (0.5-1.4) mg/dL Estim Creat Clear Calc Estimated GFR POC Glucose 92 (60-115) mg/dL Random Glucose (60-115) mg/dL Calcium (8.4-10.2) mg/dL Magnesium (1.6-2.6) mg/dL Total Bilirubin (0.0-1.0) mg/dL Direct Bilirubin (0.0-0.5) mg/dL AST (5-37) U/L ALT (0-40) U/L Alkaline Phosphatase (39-117) U/L Troponin I High Sens 3.7 (<3.5-35.0) ng/L B-Natriuretic Peptide (<100) pg/mL Total Protein (6.5-8.0) g/dL Albumin (3.5-5.0) g/dL ECG Data ECG #1: Attestation: I personally reviewed and interpreted this ECG as follows: ECG interpretation date: 03/05/21 ECG interpretation time: 11:51 Prior ECG tracings: available for review Interpretation: EKG normal sinus rhythm with a rate of 78, nonischemic/no STEMI Discharge Plan Discharge Clinical Impression: Chest pain, Light-headedness Instructions: Chest Pain (ED), Lightheadedness (ED) Prescriptions: No Action demeclocycline 300 mg tablet 300 mg PO BID RF: 0 lisinopril 20 mg Tablet 20 mg PO DAILY RF: 0 dexlansoprazole [Dexilant] 60 mg capsule,biphase delayed releas 60 mg PO DAILY Qty: 28 RF: 11 propranolol 20 mg tablet 20 mg PO TID Qty: 84 RF: 5 blood sugar diagnostic [Impact Radiusuch Ultra Blue Test Strip] Strip 1 strip miscellaneous TID PRN (Reason: Type 2 Diabetes) Qty: 200 RF: 11 cholecalciferol (vitamin D3) 25 mcg (1,000 unit) tablet 25 mcg PO DAILY Qty: 28 RF: 11 fluticasone propion-salmeterol [Advair Diskus] 250-50 mcg/dose blister with device 1 ea PO BID Qty: 60 RF: 11 metformin 1,000 mg tablet 1,000 mg PO BID Qty: 56 RF: 11 cyanocobalamin (vitamin B-12) 1,000 mcg tablet 1,000 mcg PO DAILY Qty: 28 RF: 11 furosemide 20 mg tablet 20 mg PO QAM Qty: 14 RF: 5 acetaminophen [Tylenol] 325 mg Tablet 650 mg PO Q4H PRN (Reason: Pain) RF: 0 amlodipine [Norvasc] 5 mg Tablet 5 mg PO DAILY RF: 0 aspirin [Ecotrin Low Strength] 81 mg Tablet,Delayed Release (Dr/Ec) RF: 0 guaifenesin [Robitussin Chest Congestion] 100 mg/5 mL Liquid 200 mg PO Q4H PRN (Reason: Congestion) RF: 0 divalproex [Depakote ER] 500 mg Tablet Extended Release 24 Hr 1,000 mg PO DAILY RF: 0 Triple Antibiotic 3.5mg-400 unit- 5,000 unit/gram Ointment 1 appl TOPICAL DAILY RF: 0 atorvastatin 10 mg tablet 10 mg PO BEDTIME RF: 0 albuterol sulfate [Ventolin HFA] 90 mcg/actuation HFA aerosol inhaler 2 puff INHALATION Q6H PRN (Reason: Shortness Of Breath Or Wheezing) RF: 0 triamcinolone acetonide 0.1 % Cream 1 appl TOPICAL TID PRN (Reason: Rash) RF: 0 ondansetron 4 mg Tablet,Disintegrating 4 mg translingual DAILY PRN (Reason: Nausea) RF: 0 hydralazine 50 mg tablet 50 mg PO TID Qty: 56 RF: 5 Citrucel 500 mg tablet 500 mg PO DAILY Qty: 30 RF: 2 simethicone [Gas Relief (simethicone)] 125 mg capsule 125 mg PO TID-QID PRN (Reason: abdominal distention) Qty: 120 RF: 2 lactase [Lactaid] 3,000 unit tablet 3,000 unit PO TID PRN (Reason: Lactose Intolerance) RF: 0 gabapentin 100 mg capsule 200 mg PO BID RF: 0 risperidone 3 mg tablet 3 mg PO BID RF: 0 Referrals: Po,Robert Downing MD [Primary Care Provider] - 2 days
[2021-03-05 12:30] LABS: MANUAL DIFF FLAG NO
[2021-03-05 12:37] LABS: Basophils Percent Auto 0.6 % (0-2); Eosinophils Absolute Auto 0.2 X10*3/uL (0.0-0.4); Eosinophils Percent Auto 2.8 % (0-4); Hematocrit 31.4 % (42-52); Hemoglobin 10.4 g/dl (14.0-18.0); Imm Gran Abs Auto 0.03 X10*3/uL (0.00-0.03); Imm Gran Pct Auto 0.6 % (0.0-0.4); Lymphocytes Absolute Auto 1.5 X10*3/uL (1.2-4.9); Mean Corpuscular HGB Conc 33.1 g/dl (31.0-36.0); Mean Corpuscular Hemoglobin 28.7 pg (27.0-33.0); Mean Corpuscular Volume 86.7 fL (80-98); Mean Platelet Volume 9.8 fL (9.4-12.4); Monocytes Absolute Auto 0.6 X10*3/uL (0.1-1.2); Monocytes Percent Auto 10.3 % (2-11); Neutrophils Absolute Auto 3.1 X10*3/uL (2.0-8.3); Neutrophils Percent Auto 57.7 % (45-73); Platelet Count 126 X10*3/uL (160-400); Red Blood Count 3.62 X10*6/uL (4.60-5.80); Red Cell Distribution Width 13.6 % (11.0-16.0); White Blood Count 5.4 X10*3/uL (4.8-10.8)
[2021-03-05 13:00] LABS: Alanine Aminotransferase 37 U/L (0-40); Albumin Level 3.4 g/dL (3.5-5.0); Alkaline Phosphatase 80 U/L (39-117); Anion Gap 15 (12-20); Aspartate Amino Transferase 34 U/L (5-37); Bilirubin Direct < 0.2 mg/dL (0.0-0.5); Bilirubin Total 0.4 mg/dL (0.0-1.0); Blood Urea Nitrogen 19 mg/dL (9-16); Calcium 8.8 mg/dL (8.4-10.2); Carbon Dioxide 24 mmol/L (22-29); Chloride 101 mmol/L (96-108); Creatinine Clr Calc Pharmacy 94.4; Estimated Glomerular Filt Rate > 60; Glucose Random 111 mg/dL (60-115); Magnesium 1.3 mg/dL (1.6-2.6); Potassium 4.6 mmol/L (3.3-5.1); Sodium 135 mmol/L (135-145); Total Protein 5.9 g/dL (6.5-8.0)
[2021-03-05 13:03] LABS: Troponin-I High Sensitivity 3.7 ng/L (<3.5-35.0)
[2021-03-05 13:05] LABS: B Type Natriuretic Peptide 59 pg/mL (<100)
[2021-03-05] MEDS: Furosemide 40 MG/4 ML VIAL IVPUSH (14:18)
[2021-03-05] MEDS: Magnesium Sulfate/H2O 2 GM/50 ML PIGGYBACK IV (14:18)
[2021-03-05 16:24] LABS: Glucose, Whole Blood 92 mg/dL (60-115)
[2021-03-05] MEDS: Meclizine HCl 25 MG TABLET PO (16:25)
[2021-03-05] MEDS: 0.9 % Sodium Chloride 1,000 ML 999 ML IVCONT (16:25)
[2021-03-05 16:53] LABS: Troponin-I High Sensitivity < 3.5 ng/L (<3.5-35.0)
--- NOTE | 2021-03-05 18:24 | ECG_ITS ---
Test Reason : CHEST PAIN Blood Pressure : / mmHG Vent. Rate : 078 BPM Atrial Rate : 078 BPM P-R Int : 184 ms QRS Dur : 072 ms QT Int : 374 ms P-R-T Axes : 074 -08 016 degrees QTc Int : 426 ms Poor data quality Normal sinus rhythm Possible Left atrial enlargement Abnormal ECG When compared with ECG of 05-MAR-2021 11:48, Prior EKG of poor quality and comparison cannot be made Referred By: Elza Hines Electronically Signed By:LINDA CHAMBERLAIN MD
[2021-03-05 18:32] LABS: Glucose Urine UA 100 MG/DL (NEG); Leukocyte Esterase Urine NEG (NEG); Nitrite Urine NEG (NEG); PH 5.5 (5.0-8.0); Specific Gravity - Urine 1.015 (1.005-1.025); Urine Blood NEG (NEG); Urine Ketones NEG (NEG); Urine Protein NEG (NEG-TRACE)
[2021-03-05 18:34] LABS: Appearance Urine CLEAR; Color Urine YELLOW
--- NOTE | 2021-03-05 21:05 | MHC.CM.ED ---
CM met with pt. Pt has a long medical hx, including a mental disability. Pt resides in a senior living. Pt has a guardian/sister, Shelia Marshall ([phone]) as well as 2 other sisters, Gerda and Maude, whom he sees. The HCP and guardianship papers are on file. CM spoke with Shelia and updated her on pt condition and plan to stay overnight for PT evaluation with probable return to senior living tomorrow. Shelia is agreeable and states that her brother does this and has many medical complaints. Shelia tells CM that her brother is on a chopped diet and needs nectar thick liquids. RN notified. Dairy Farmworker, Brenda ([phone]) is aware of pt arrival and updated on condition and plan of care. Brenda requests that she be called when pt is discharged. Pt will have PT evaluation in the am, as pt states he is dizzy and weak. Pt does use a walker intermittently at the senior living. Expect d/c plan is to return to the senior living. Call Brenda prior to discharge to arrange transportation. CM to follow for d/c needs.
--- NOTE | 2021-03-05 22:38 | PC.NURSE ---
pt moved to a recliner to be with a sitter for pt states he is hearing voices that are telling him to harm himself and others. pt in hospital attire and all belongings are locked up.
--- NOTE | 2021-03-05 23:59 | PC.NURSE ---
provider made aware of pt si and hi remarks. provider states pt does this and no consult is going to be placed, pt plan is for physical therapy in the morning. pt remains with sitter for safety, charge histotechnologist is aware.
[2021-03-06] VITALS (11 sets, daily range): BP systolic 102–163; BP diastolic 63–79; PULSE 72–93; RESP 16–18; O2SAT 97–98
[2021-03-06] MEDS: hydrALAZINE HCl 50 MG TABLET PO ×2 (00:13→22:06)
[2021-03-06] MEDS: Propranolol HCL 20 MG TABLET PO ×3 (00:17→22:06)
[2021-03-06] MEDS: Gabapentin 100 MG CAPSULE 200 MG PO ×3 (00:18→22:07)
[2021-03-06] MEDS: Atorvastatin Calcium 10 MG TABLET PO ×2 (00:18→22:07)
[2021-03-06] MEDS: risperiDONE 3 MG TABLET PO ×3 (00:18→22:06)
[2021-03-06] MEDS: Divalproex Sodium ER 500 MG TAB.ER.24H 1000 MG PO ×3 (01:58→22:07)
[2021-03-06 04:14] LABS: Magnesium 1.5 mg/dL (1.6-2.6)
[2021-03-06] MEDS: Omeprazole 40 MG CAPSULE.DR PO (06:21)
--- NOTE | 2021-03-06 06:22 | PC.NURSE ---
pt calm and cooperative, no visable tremors, pt was sleeping and no s/s of distress.
[2021-03-06 07:58] LABS: Glucose, Whole Blood 136 mg/dL (60-115)
[2021-03-06] MEDS: Furosemide 20 MG TABLET PO (09:47)
[2021-03-06] MEDS: metFORMIN HCl 1,000 MG TABLET 1000 MG PO ×2 (09:47→19:48)
[2021-03-06] MEDS: Cyanocobalamin (Vitamin B-12) 1,000 MCG TABLET 1000 MCG PO (09:47)
[2021-03-06] MEDS: Aspirin Enteric Coated 81 MG TABLET.DR PO (09:47)
[2021-03-06] MEDS: Cholecalciferol (Vitamin D3) 25 MCG TABLET PO (09:48)
[2021-03-06] MEDS: Fluticasone Propionate Nasal 16 GM SPRAY 1 SPRAY NOSTRIL-B (09:49)
--- NOTE | 2021-03-06 10:48 | MHC.CM.ED ---
Patient remains in ER. N eval is pending. Continue to monitor for d/c needs.
[2021-03-06] MEDS: Magnesium Oxide 400 MG TABLET PO (11:44)
--- NOTE | 2021-03-06 15:09 | PC.NURSE ---
patient has been in the chair in 13 H. compliant. eaiting meals. this nurse called [facility] this morning, and again this afternoon to confirm an evauluation will be performed today. N stated they are behind but that they will be at [facility] for an eval later.
[2021-03-06 19:22] LABS: Glucose, Whole Blood 161 mg/dL (60-115)
--- NOTE | 2021-03-06 23:43 | MHC.CARE ---
CARE team faxed referral and confirmed receipt with N. Clinician will be available in the morning.
[2021-03-07] VITALS (7 sets, daily range): BP systolic 109–153; BP diastolic 68–89; PULSE 70–103; RESP 16–18; TEMP 36.5; O2SAT 95–99
[2021-03-07] MEDS: Omeprazole 40 MG CAPSULE.DR PO (06:00)
[2021-03-07] MEDS: metFORMIN HCl 1,000 MG TABLET 1000 MG PO ×2 (07:30→17:53)
[2021-03-07] MEDS: Divalproex Sodium ER 500 MG TAB.ER.24H 1000 MG PO ×2 (08:45→22:16)
[2021-03-07] MEDS: Cholecalciferol (Vitamin D3) 25 MCG TABLET PO (08:45)
[2021-03-07] MEDS: Furosemide 20 MG TABLET PO (08:46)
[2021-03-07] MEDS: Aspirin Enteric Coated 81 MG TABLET.DR PO (08:46)
[2021-03-07] MEDS: Gabapentin 100 MG CAPSULE 200 MG PO ×2 (08:46→22:17)
[2021-03-07] MEDS: lisinopriL 20 MG TABLET PO (08:46)
[2021-03-07] MEDS: risperiDONE 3 MG TABLET PO ×2 (08:46→22:17)
[2021-03-07] MEDS: hydrALAZINE HCl 50 MG TABLET PO ×2 (08:46→22:16)
[2021-03-07] MEDS: Propranolol HCL 20 MG TABLET PO ×3 (08:47→22:16)
[2021-03-07] MEDS: Cyanocobalamin (Vitamin B-12) 1,000 MCG TABLET 1000 MCG PO (08:47)
[2021-03-07] MEDS: amLODIPine Besylate 5 MG TABLET PO (08:47)
[2021-03-07] MEDS: Fluticasone/Vilanterol 100/25 BLST.W.DEV 1 PUFF INHALE ×3 (09:40→09:47)
[2021-03-07] MEDS: Fluticasone Propionate Nasal 16 GM SPRAY 1 SPRAY NOSTRIL-B ×2 (09:40→22:18)
--- NOTE | 2021-03-07 10:22 | MHC.CM.ED ---
Patient has been cleared by Crisis. Physical therapy is recommending short term rehab. Patient is agreeable to rehab. Patient's sister Shelia is his guardian. Spoke with Shelia via telephone at [phone]. Patient has been to [facility] in the past. Shelia does not want him to return there. Shelia is requesting referral to [facility] for short term rehab. Referral made via [employer]. Patient is developmentally delayed and has a history of anxiety. PASRR screen completed, faxed to [facility] and emailed to [facility]. Continue to monitor for d/c needs.
--- NOTE | 2021-03-07 10:52 | MHC.CARE ---
Patient originally presented to the hospital via ambulance, reporting chest pain, weakness, shortness of breath and requested to be medically admitted. CARE Team met with him in ED 9 for a risk assessment as he had expressed suicidal ideation to staff yesterday. Today patient was alert, oriented and easily engaged; he was sitting up in bed, made appropriate eye contact, was soft spoken and appeared to answer questions with honesty to the best of his ability. Patient explained that he hears voices that tell him to hurt himself and at times has struck himself in the head with his hand, stated that this has been an ongoing issue for many years. Said he does not want to end his life, ?I feel much better now and will behave myself.? It seems plausible that patient was attention seeking, it had been reported that he will make suicidal statements when he is looking for reassurance. Patient denied any history of suicide attempts, scored a 1 out of 5 on the [place] Suicide Scale. He is engaged in therapy and has a psychiatrist through [facility], attends appointments regularly and takes medication as prescribed. Patient does not appear to be a danger to himself or others, no further mental health interventions are indicated at this time. He is in agreement with plan of care to go to rehab. ED providers updated
--- NOTE | 2021-03-07 14:46 | MHC.CM.ED ---
Per Mally at [facility], patient will not qualify for an abbreviated assessment. A disability case manager has been assigned the case. However, they have 2 business days to arrive to the ER for the evaluation. Continue to monitor for d/c needs.
--- NOTE | 2021-03-07 21:06 | MHC.CM.ED ---
Per e-mail communication with Anay Landaverde, spoke with Shelia, guardian, regarding need for notice of intent to admit to a nursing facility for short term services since her guardianship forms do not give her permission to admit. Shelia is aware that [facility] is reviewing pt records, but no bed offer has been made. Aware that once form is signed by her and MD, it will be brought to court for approval so her brother can go to [facility]. Shelia will be in tomorrow between 4-4:30 pm to sign form. Also updated Shelia regarding PASSR and needing approval from both DM and DDS. CM will continue to follow for d/c needs.
[2021-03-07 22:18] LABS: Glucose, Whole Blood 192 mg/dL (60-115)
[2021-03-07] MEDS: Atorvastatin Calcium 10 MG TABLET PO (22:18)
[2021-03-07 22:19] LABS: COVID-19 Test Negative (Negative)
[2021-03-08] VITALS (12 sets, daily range): BP systolic 117–144; BP diastolic 64–84; PULSE 75–98; RESP 14–20; TEMP 36.3–36.8; O2SAT 96–99
[2021-03-08] MEDS: Omeprazole 40 MG CAPSULE.DR PO (06:12)
[2021-03-08] MEDS: Furosemide 20 MG TABLET PO (07:58)
[2021-03-08] MEDS: Aspirin Enteric Coated 81 MG TABLET.DR PO (07:58)
[2021-03-08] MEDS: Cholecalciferol (Vitamin D3) 25 MCG TABLET PO (07:58)
[2021-03-08] MEDS: lisinopriL 20 MG TABLET PO (07:58)
[2021-03-08] MEDS: hydrALAZINE HCl 50 MG TABLET PO ×2 (07:59→21:00)
[2021-03-08] MEDS: Cyanocobalamin (Vitamin B-12) 1,000 MCG TABLET 1000 MCG PO (07:59)
[2021-03-08] MEDS: Gabapentin 100 MG CAPSULE 200 MG PO ×2 (07:59→21:00)
[2021-03-08] MEDS: amLODIPine Besylate 5 MG TABLET PO (07:59)
[2021-03-08] MEDS: Divalproex Sodium ER 500 MG TAB.ER.24H 1000 MG PO ×2 (07:59→21:00)
[2021-03-08] MEDS: metFORMIN HCl 1,000 MG TABLET 1000 MG PO ×2 (08:21→18:41)
--- NOTE | 2021-03-08 08:35 | PC.NURSE ---
pt states he stated he was suicidal because his roomate at the [facility] alls him names. He states he is not suicidal and does not have any plan to kill himself. Pt states he does not want to return to the prison because of this roomate.
--- NOTE | 2021-03-08 08:53 | MHC.CM.ED ---
Patient remains in ER. [facility] still reviewing patient. Octavia from [facility] is working on PASRR letter. Preethi from [facility] is working on PASRR. Continue to monitor for d/c needs.
[2021-03-08] MEDS: risperiDONE 3 MG TABLET PO ×2 (09:14→23:57)
[2021-03-08] MEDS: Propranolol HCL 20 MG TABLET PO ×3 (09:14→23:57)
--- NOTE | 2021-03-08 13:45 | MHC.CM.ED ---
[facility] PASRR letter obtained. Continue to monitor for d/c needs.
--- NOTE | 2021-03-08 14:45 | MHC.CM.ED ---
[facility] the Intent to Ad[facility] is filed. Continue to monitor for d/c needs.
[2021-03-08] MEDS: LORazepam 1 MG TABLET PO ×2 (16:02→23:44)
--- NOTE | 2021-03-08 18:08 | MHC.CM.ED ---
CM called and spoke to Shelia, guardian, as she did not come in at 1630 to sign the letter of intent form. Shelia states she is working overtime and cannot come in tonight. CM explained that [facility] has accepted her brother and [facility] and [facility] have cleared patient to go to [facility]. Explained that all we need is her signature. Pt tells CM that she does not like to drive at night, but she will see if her grandson can drive her tonight. Otherwise she will come tomorrow evening. CM explained that her brother cannot go to rehab until that form is filed with the immigration attorney. CM will continue to follow for D/C needs.
--- NOTE | 2021-03-08 21:36 | PC.NURSE ---
PT C/O URINATING IN STRETCHER, PT MOVED INTO ROOM #7 TO CLEAN PT UP. PT ALERT, RESPIRATIONS EASY, N/L. SKIN W/D.
--- NOTE | 2021-03-08 21:57 | PC.NURSE ---
patient c/o lightheadedness and dizziness, vitals obtained and wnl, poc obtained 133, will notify provider
[2021-03-08 21:59] LABS: Glucose, Whole Blood 133 mg/dL (60-115)
--- NOTE | 2021-03-08 22:00 | PC.NURSE ---
PT MEDICATED PER EMAR. PT MOVED TO ROOM #8 FOR COMFORT. PT GIVEN SANDWICH AND AMBROCIO TESS TO DRINK. WILL CONTINUE TO MONITOR PT.
[2021-03-08] MEDS: Atorvastatin Calcium 10 MG TABLET PO (23:45)
[2021-03-08] MEDS: Fluticasone Propionate Nasal 16 GM SPRAY 1 SPRAY NOSTRIL-B (23:59)
[2021-03-09] VITALS (10 sets, daily range): BP systolic 122–151; BP diastolic 62–84; PULSE 70–80; RESP 16–20; TEMP 36.3–36.8; O2SAT 97
--- NOTE | 2021-03-09 04:04 | PC.NURSE ---
PT SLEEPING WAKES TO VOICE, RESPIRATIONS EASY, N/L. SKIN W/D. PT REQUESTING URINAL. PT FELL BACK TO SLEEP. PT IN NAD.
--- NOTE | 2021-03-09 06:56 | PC.NURSE ---
PT WAKES TO VOICE IN NAD. PT DENIES COMPLAINTS. PT REQUESTING AMBROCIO TESS. WILL CONTINUE TO MONITOR PT.
[2021-03-09] MEDS: metFORMIN HCl 1,000 MG TABLET 1000 MG PO ×2 (06:59→18:06)
[2021-03-09] MEDS: Omeprazole 40 MG CAPSULE.DR PO (06:59)
--- NOTE | 2021-03-09 07:25 | PC.NURSE ---
PT ALERT, SET UP WITH BREAKFAST MUNIRA, PT INCONTINENT OF URINE AND STOOL, PT CLEANED UP AND CLEAN HOSPITAL ATTIRE APPLIED. PT HAS NO COMPLAINT AT THIS TIME
[2021-03-09] MEDS: Divalproex Sodium ER 500 MG TAB.ER.24H 1000 MG PO ×2 (08:35→21:18)
[2021-03-09] MEDS: amLODIPine Besylate 5 MG TABLET PO (08:35)
[2021-03-09] MEDS: Aspirin Enteric Coated 81 MG TABLET.DR PO (08:36)
[2021-03-09] MEDS: hydrALAZINE HCl 50 MG TABLET PO ×2 (08:36→21:17)
[2021-03-09] MEDS: risperiDONE 3 MG TABLET PO ×2 (08:36→21:18)
[2021-03-09] MEDS: Gabapentin 100 MG CAPSULE 200 MG PO ×2 (08:36→21:17)
[2021-03-09] MEDS: Propranolol HCL 20 MG TABLET PO ×3 (08:36→21:18)
[2021-03-09] MEDS: Cholecalciferol (Vitamin D3) 25 MCG TABLET PO (08:36)
[2021-03-09] MEDS: lisinopriL 20 MG TABLET PO (08:36)
[2021-03-09] MEDS: Cyanocobalamin (Vitamin B-12) 1,000 MCG TABLET 1000 MCG PO (08:37)
[2021-03-09] MEDS: Furosemide 20 MG TABLET PO (08:37)
[2021-03-09] MEDS: Fluticasone Propionate Nasal 16 GM SPRAY 1 SPRAY NOSTRIL-B ×2 (08:40→21:19)
[2021-03-09] MEDS: Fluticasone/Vilanterol 100/25 BLST.W.DEV 1 PUFF INHALE (08:42)
--- NOTE | 2021-03-09 09:44 | MHC.CM.ED ---
Patient remains in ER. Still waiting for sister to come to sign Intent to Admit for guardianship. Continue to monitor for d/c needs.
--- NOTE | 2021-03-09 10:50 | PC.NURSE ---
pt incontinent of urine, pt cleaned up, and clean hospital gown on.
--- NOTE | 2021-03-09 12:31 | PC.NURSE ---
pt is currently asleep, respirations even and unlabored.
--- NOTE | 2021-03-09 13:09 | PC.NURSE ---
pt is currently eating lunch
--- NOTE | 2021-03-09 15:18 | PC.NURSE ---
patiet speaking to case management specialist parker hobson. given tua sandwih and 3 pm medications with no issues. vitals wnl,. client in nad, offers no other needs/wants
--- NOTE | 2021-03-09 15:56 | PC.NURSE ---
client incontinent of urine and stool. Cleaned with ana hobson, lotion placed on back and bottom due to mild reddness. Client tolerated well.
--- NOTE | 2021-03-09 16:24 | MHC.CM.ED ---
CM spoke with patient and with sister/guardian, Shelia, regarding transfer tomorrow 03/10 @10am via ambulance. Ambulance booked for 10am. Pt to go to [facility]. CM to follow for d/c needs.
--- NOTE | 2021-03-09 16:50 | PC.NURSE ---
client resting in bed, nad noted.
--- NOTE | 2021-03-09 19:59 | PC.NURSE ---
PT UP TO BATHROOM WITH STERI LIFT, BOWEL MOVEMENT AND URINE. BED CLEANED. CLIENT TOLERATED WELL
[2021-03-09] MEDS: LORazepam 1 MG TABLET PO (21:18)
[2021-03-09] MEDS: Atorvastatin Calcium 10 MG TABLET PO (21:19)
--- NOTE | 2021-03-09 22:48 | PC.NURSE ---
PATIENT RESTING COMFORTABLY ON STRETCHER, PLAN IS FOR PATIENT TO GO TO [facility] TOMORROW MORNING, CASE MANAGEMENT INVOLVED WITH CARE.
[2021-03-10 06:00] VITALS: BP 128/84; PULSE 84; RESP 16; O2SAT 97
--- NOTE | 2021-03-10 07:21 | PC.NURSE ---
unable to scan meds in any way. pt given omeprazole and metformin per emar.
[2021-03-10] MEDS: Omeprazole 40 MG CAPSULE.DR PO (07:22)
[2021-03-10] MEDS: metFORMIN HCl 1,000 MG TABLET 1000 MG PO (07:22)
[2021-03-10 09:21] VITALS: BP 128/85; PULSE 100
[2021-03-10] MEDS: Aspirin Enteric Coated 81 MG TABLET.DR PO (09:21)
[2021-03-10] MEDS: Furosemide 20 MG TABLET PO (09:21)
[2021-03-10] MEDS: Cyanocobalamin (Vitamin B-12) 1,000 MCG TABLET 1000 MCG PO (09:21)
[2021-03-10] MEDS: risperiDONE 3 MG TABLET PO (09:21)
[2021-03-10] MEDS: Cholecalciferol (Vitamin D3) 25 MCG TABLET PO (09:21)
[2021-03-10] MEDS: Divalproex Sodium ER 500 MG TAB.ER.24H 1000 MG PO (09:21)
[2021-03-10] MEDS: amLODIPine Besylate 5 MG TABLET PO (09:21)
[2021-03-10 09:22] VITALS: BP 128/85; PULSE 100
[2021-03-10] MEDS: hydrALAZINE HCl 50 MG TABLET PO (09:22)
[2021-03-10] MEDS: lisinopriL 20 MG TABLET PO (09:22)
[2021-03-10] MEDS: Propranolol HCL 20 MG TABLET PO (09:22)
[2021-03-10] MEDS: Gabapentin 100 MG CAPSULE 200 MG PO (09:23)
--- NOTE | 2021-03-10 10:13 | PC.NURSE ---
report given to renato at [facility]
== END 2021-03-10 10:13 | disposition skilled nursing facility (03) ==
PROVIDERS: Nurse Practitioner Family; Physician Assistant; Physician Assistant Medical; Emergency Provider Internal Medicine; PCP Internal Medicine
DX: R07.9 Chest pain, unspecified (principal); R06.02 Shortness of breath; F33.1 Major depressive disorder, recurrent, moderate; R45.851 Suicidal ideations; R60.0 Localized edema; R42 Dizziness and giddiness; I10 Essential (primary) hypertension; E11.9 Type 2 diabetes mellitus without complications; R51.9 Headache, unspecified; Z20.822 Contact with and (suspected) exposure to COVID-19; Z79.84 Long term (current) use of oral hypoglycemic drugs; Z79.899 Other long term (current) drug therapy
CPT/HCPCS: 36415; 70450; 71045; 80048; 80076; 81003; 82947; 83735; 83880; 84484; 85025; 87635; 93005; 96361; 96365; 96375; 97162; 99285; J1940; J3475

== ENCOUNTER → 2021-04-27 14:41 | Outpatient (BNVA) | payer MEDICARE, MEDICAID, SELFPAY | PROVIDERS: PCP Internal Medicine; Visit Provider Nurse Practitioner Gerontology | DX: E11.29 Type 2 diabetes mellitus with other diabetic kidney complication (principal); R80.9 Proteinuria, unspecified; E78.5 Hyperlipidemia, unspecified; I10 Essential (primary) hypertension; E66.09 Other obesity due to excess calories | CPT/HCPCS: 82947; 99212 ==

== ENCOUNTER 2021-05-07 11:52 | Emergency (ER) | payer MEDICARE, MEDICAID, SELFPAY ==
--- NOTE | ~2021-05-07 | CT_ITS ---
EXAMINATION: CT HEAD WITHOUT CONTRAST CLINICAL INFORMATION: Dizziness. COMPARISON: CT head 03/05/2021 TECHNIQUE: Contiguous axial imaging was performed from the skull base to vertex without intravenous administration of contrast. Coronal and sagittal reformatted images are performed at the CT scanner. [This CT examination was performed using dose optimization techniques as appropriate, variously including the following: *Automated exposure control *Adjustment of mA and/or kV according to patient size (this includes techniques or standardized protocols for targeted exams where dose is matched to indication/reason for exam; i.e. extremities or head) *Use of iterative reconstruction technique] DLP: 5.12+758.44 mGy-cm. FINDINGS: There is no evidence of acute intracranial hemorrhage or territorial infarction. No abnormal mass-effect or midline shift is seen. Shell to white matter differentiation is well preserved. No extra-axial fluid collections are identified. The ventricles are normal in size. There is no abnormal attenuation within the brain parenchyma. There is no osseous abnormality. The mastoid air cells and visualized portions of the paranasal sinuses are well-aerated. CT/CT head/brain wo con IMPRESSION: No acute intracranial pathology.
--- NOTE | ~2021-05-07 | CT_ITS ---
EXAMINATION: CT ABDOMEN AND PELVIS WITH CONTRAST CLINICAL INFORMATION: Periumbilical pain COMPARISON: CT scan abdomen pelvis 11/27/2020 TECHNIQUE: Multidetector volumetric images were obtained from the superior aspect of the liver through the pubic symphysis following administration 85 mL of Omnipaque 350 intravenous contrast. Sagittal and coronal reformatted images were obtained on the technologist's workstation. Oral contrast: No This CT examination was performed using dose optimization techniques as appropriate, variously including the following: *Automated exposure control *Adjustment of mA and/or kV according to patient size (this includes techniques or standardized protocols for targeted exams where dose is matched to indication/reason for exam; i.e. extremities or head) *Use of iterative reconstruction technique DLP: 4.87+4.87+941.5 mGy-cm FINDINGS: LUNG BASES: The visualized lung bases are unremarkable. LIVER, GALLBLADDER, AND BILIARY TREE: The liver is normal in size, shape, and attenuation. No focal hepatic lesion or biliary ductal dilatation is present. The gallbladder is unremarkable with no evidence of radiopaque gallstones, gallbladder wall thickening, or obvious pericholecystic inflammatory changes. PANCREAS: Unremarkable. SPLEEN: Unremarkable. ADRENAL GLANDS: No change of the slight nodularity of the left adrenal gland without distinct mass. The right adrenal gland is normal. KIDNEYS AND URETERS: The kidneys are normal in size, shape, and attenuation. No hydronephrosis, hydroureter, or calculi seen. No perinephric stranding. BLADDER: Unremarkable. GASTROINTESTINAL TRACT: The small and large bowel are unremarkable. The appendix is unremarkable. ABDOMINAL WALL: Soft tissue mass in the posterior right paraspinal subcutaneous tissue with coarse peripheral calcifications measuring 7 x 6 x 3 cm. Low attenuating central matrix, minus 20 Hounsfield units, probably fat necrosis. This is not changed substantially since prior studies. LYMPH NODES: Normal. VASCULAR: Atherosclerotic vascular calcifications of aorta and iliac arteries. There is no aneurysm. PELVIC VISCERA: Unremarkable. OSSEOUS STRUCTURES: Multilevel degenerative spondylosis spine. CT/CT abdomen pelvis w con IMPRESSION: No acute abnormality CT scan abdomen pelvis. The appendix is normal.
[2021-05-07 11:54] VITALS: BP 130/88; PULSE 88; O2SAT 97
[2021-05-07 11:56] VITALS: BP 162/79; PULSE 78; RESP 16; TEMP 35.5; O2SAT 97; BMI 42.3
--- NOTE | 2021-05-07 13:07 | PC.NURSE ---
SHANAE WHO IS THE DIRECTOR OF THE [facility] CALLED, STATING THAT THE PT IS ON A DYSPHASIA DIET AND STAFF WILL BE BRINGING THE PT'S MEDICATION LIST WELL. IF ANY QUESTIONS CALL [phone]
--- NOTE | 2021-05-07 13:14 | ECG_ITS ---
Test Reason : ABD PAIN Blood Pressure : / mmHG Vent. Rate : 077 BPM Atrial Rate : 077 BPM P-R Int : 174 ms QRS Dur : 094 ms QT Int : 406 ms P-R-T Axes : 077 002 035 degrees QTc Int : 459 ms Normal sinus rhythm Low voltage QRS Borderline ECG When compared with ECG of 05-MAR-2021 18:25, No significant change was found Referred By: Elier Campos Electronically Signed By:LINDA CHAMBERLAIN MD
--- NOTE | 2021-05-07 13:17 | ED.ABDPAIN ---
HPI - Abdominal Pain General Chief Complaint: Abdominal Pain Stated Complaint: ABD PAIN W/DIZZINESS AND VOMITING Time Seen by Provider: 05/07/21 15:00 Source: patient Mode of arrival: ambulatory Limitations: no limitations History of Present Illness HPI narrative: Patient presents to ED for periumbilical abdominal pain for 1 week. Patient states also nausea vomiting. Patient states no bowel movement for 1 week. Patient states 2nd complaint is dizziness for 1 week with sensation of room spinning. Patient states ambulating with walker for feel like he is about to fall. Patient's problem list includes chronic gait abnormality. Patient states no chest pain, shortness of breath, fever, or chills. MD elicited complaint: abdominal pain Related Data Home Medications Medication Instructions Recorded Confirmed demeclocycline 300 mg PO BID 09/04/20 05/07/21 risperidone 3 mg tablet 3 mg PO BID 09/22/20 05/07/21 atorvastatin 10 mg PO BEDTIME 11/28/20 05/07/21 amlodipine [Norvasc] 5 mg PO DAILY 01/23/21 05/07/21 aspirin [Ecotrin Low Strength] 81 mg PO DAILY 01/23/21 05/07/21 divalproex [Depakote ER] 1,000 mg PO BID 01/23/21 05/07/21 fluticasone propionate 1 spray INTRANASAL BID 03/05/21 05/07/21 dicyclomine 20 mg PO QID PRN 04/26/21 05/07/21 methylcellulose (laxative) 500 mg PO DAILY 04/26/21 05/07/21 [Citrucel] furosemide 20 mg tablet 20 mg PO DAILY 04/27/21 05/07/21 gabapentin 100 mg capsule 100 mg PO BID cap 04/27/21 05/07/21 lisinopril 20 mg tablet 20 mg PO DAILY 04/27/21 05/07/21 cyanocobalamin (vitamin B-12) 1,000 mcg PO DAILY@199905/07/21 05/07/21 fluticasone propion-salmeterol 1 puff INHALATION BID 05/07/21 05/07/21 [Advair Diskus] Previous Rx's Medication Instructions Recorded dexlansoprazole 60 mg 60 mg PO DAILY #28 cap 11/30/20 capsule,biphase delayed release propranolol 20 mg tablet 20 mg PO TID #84 tab 12/04/20 cholecalciferol (vitamin D3) 25 25 mcg PO DAILY #28 tab 12/19/20 mcg (1,000 unit) tablet hydralazine 50 mg tablet 50 mg PO BID 90 Days #180 tab 03/12/21 acetaminophen 325 mg tablet 650 mg PO Q4H PRN 90 Days #180 tab 04/27/21 ferrous sulfate 325 mg PO BID #60 tab 04/27/21 metformin 500 mg tablet 500 mg PO BID #60 tab 04/27/21 Allergies Allergy/AdvReac Type Severity Reaction Status Date / Time Sulfa (Sulfonamide Allergy Severe LANDEROS Verified 04/23/21 16:33 Antibiotics) ALICIA REACTION, Landeros Alicia trimethoprim Allergy Mild UNKNOWN Verified 04/23/21 16:33 lactose AdvReac Mild STOMACH Verified 04/23/21 16:33 UPSET Review of Systems Review of Systems Yes all other systems are reviewed and are negative Constitutional: Reports as per HPI and Reports no additional constitutional complaints Eyes: Reports as per HPI and Reports no additional eye complaints Reports system reviewed and no additional complaints, except as documented, Reports as per HPI and Reports dizziness Cardiovascular: Reports as per HPI and Reports no additional cardiovascular complaints Respiratory: Reports as per HPI and Reports no additional respiratory complaints Gastrointestinal: Reports as per HPI, Reports no additional gastrointestinal complaints, Reports abdominal pain ( Periumbilical) and Reports constipation Genitourinary: Reports no additional male genitourinary complaints and Reports as per HPI Musculoskeletal: Reports no additional musculoskeletal complaints and Reports as per HPI Reports system reviewed and no additional complaints, except as documented, Reports as per HPI and Reports dizziness Comments: room spinning Psychiatric: Reports no additional psychiatric complaints and Reports as per HPI Physical Exam Vital Signs: Vital Signs: Last Vital Signs Temp 96 F L 05/07/21 11:56 Pulse 90 05/07/21 20:27 Resp 14 05/07/21 20:27 BP 166/94 H 05/07/21 20:27 Pulse Ox 98 05/07/21 20:27 Body Mass Index 42.3 Const: General: cooperative, healthy appearing, comfortable, no acute distress, well developed, alert and awake Orientation/consciousness: patient oriented x3 HENMT: Head: Yes normal to inspection, Yes No palpable skull fracture present, Yes normocephalic and Yes atraumatic Eyes: General: appearance normal, both eyes and all related structures Neck: Neck: Yes normal visual inspection, Yes full ROM, Yes no lymphadenopathy, Yes no meningeal signs, Yes trachea midline, Yes supple and No tender Chest: Chest palpation & inspection: normal inspection of the chest and normal palpation of entire chest wall Resp: Effort & Inspection: normal respiratory effort and able to speak in complete sentences Auscultation: clear to auscultation bilaterally Cardio: Jugular venous distension: no JVD Heart sounds: S1 normal heart sound present and S2 normal heart sound present GI: Inspection: Yes normal to inspection and No abdominal wall ecchymosis Palpation (GI): Tenderness to palpation present (GI) periumbilically; not in the epigastrum, not in the LLQ, not in the RLQ, not in the LUQ, not at McBurney's point, not suprapubicly, Sampson's sign negative, obturator sign negative, psoas sign negative, with no rebound tenderness, Rovsing's sign negative and no other, no guarding and not rigid : General: No CVA tenderness Back/Spine/Pelvis: Back: no CVA tenderness, No CVA tenderness and No back tenderness Skin: General skin exam: no rashes or lesions noted and elasticity normal Neuro: Other: negative facial droop. Negative slurred speech. Negative pronator drift. All extremities equal strength 5+. [id number] and rapid hand movement intact. Negative Romberg General: patient oriented x3, gait normal, no meningeal signs and CN's II-XI intact bilaterally Cranial nerves: Yes CN's II-XII intact bilaterally Extrem: General: Yes normal to inspection and Yes full ROM Psych: Appearance: grossly normal, well kempt and not disheveled Course Course Course Narrative: patient will have labs, EKG, fluids, most likely will have had abdominal imaging. Negative for any neuro deficits. Reevaluation(s) Reevaluation #1: patient labs came back normal. Patient's CT scan negative for any abdominal etiology. Head CT normal. Troponin negative. UA negative for UTI. Head CT came back normal. Patient made suicidal statements. Will be evaluated by [facility] crisis. patient's COVID swab came back negative. EKG negative for STEMI. Time: 20:28 Reevaluation #2: Care team consulted Mally evaluated patient and stated that patient will be discharged tomorrow after 08:00am. She states patient is at his baseline and does not need any inpatient. Patient presently denies any suicidal homicidal ideation Time: 22:15 MDM - Abdominal Pain MDM Narrative Medical decision making narrative: abdominal pain. Chronic dizziness Lab Data Result diagrams: 05/07/21 13:39 05/07/21 13:39 Labs: Lab Results 05/07/21 05/07/21 05/07/21 Range/Units 13:39 13:39 13:39 WBC 5.0 (4.8-10.8) X10*3/uL RBC 3.28 L (4.60-5.80) X10*6/uL Hgb 9.3 L (14.0-18.0) g/dl Hct 28.6 L (42-52) % MCV 87.2 (80-98) fL MCH 28.4 (27.0-33.0) pg MCHC 32.5 (31.0-36.0) g/dl RDW 14.2 (11.0-16.0) % Plt Count 168 (160-400) X10*3/uL MPV 10.2 (9.4-12.4) fL Immature Gran % (Auto) 0.8 H (0.0-0.4) % Neut % (Auto) 58.7 (45-73) % Lymph % (Auto) 25.3 (20-40) % [place] % (Auto) 8.4 (2-11) % Eos % (Auto) 6.0 H (0-4) % Baso % (Auto) 0.8 (0-2) % Lymph # (Auto) 1.3 (1.2-4.9) X10*3/uL [place] # (Auto) 0.4 (0.1-1.2) X10*3/uL Eos # (Auto) 0.3 (0.0-0.4) X10*3/uL Baso # (Auto) 0.0 (0.0-0.2) X10*3/uL Abs Immat Gran (auto) 0.04 H (0.00-0.03) X10*3/uL Absolute Neuts (auto) 2.9 (2.0-8.3) X10*3/uL Absolute Nucleated RBC 0.000 (0.0-0.012) X10*3/uL Nucleated RBC % (auto) 0.0 (0.0-0.2) /100WBC PT 11.1 (10.8-13.0) SEC INR 0.9 (0.9-1.1) APTT 34.9 (24.1-38.0) SEC Sodium 138 (135-145) mmol/L Potassium 5.1 (3.3-5.1) mmol/L Chloride 107 (96-108) mmol/L Carbon Dioxide 21 L (22-29) mmol/L Anion Gap 15 (12-20) BUN 22 H (9-16) mg/dL Creatinine 0.92 (0.5-1.4) mg/dL Estim Creat Clear Calc 114.0 Estimated GFR > 60 POC Glucose (60-115) mg/dL Random Glucose 96 (60-115) mg/dL Calcium 8.9 (8.4-10.2) mg/dL Total Bilirubin 0.4 (0.0-1.0) mg/dL Direct Bilirubin < 0.2 (0.0-0.5) mg/dL AST 30 (5-37) U/L ALT 22 (0-40) U/L Alkaline Phosphatase 106 D (39-117) U/L Troponin I High Sens (<3.5-35.0) ng/L Total Protein 6.5 (6.5-8.0) g/dL Albumin 3.6 (3.5-5.0) g/dL Lipase 43 (8-78) U/L Urine Color Urine Appearance Urine pH (5.0-8.0) Ur Specific [place] (1.005-1.025) Urine Protein (NEG-TRACE) MG/DL Urine Glucose (UA) (NEG) MG/DL Urine Ketones (NEG) MG/DL Urine Blood (NEG) Urine Nitrite (NEG) Ur Leukocyte Esterase (NEG) Urine Opiates Screen (Not Detect) Ur Barbiturates Screen (Not Detect) Ur Phencyclidine Scrn (Not Detect) Ur Amphetamines Screen (Not Detect) U Benzodiazepines Scrn (Not Detect) Urine Cocaine Screen (Not Detect) U Marijuana (THC) Screen (Not Detect) COVID-19 (MICHAELA) (Negative) COVID-19 Clin Com 05/07/21 05/07/21 05/07/21 Range/Units 13:39 14:37 18:12 WBC (4.8-10.8) X10*3/uL RBC (4.60-5.80) X10*6/uL Hgb (14.0-18.0) g/dl Hct (42-52) % MCV (80-98) fL MCH (27.0-33.0) pg MCHC (31.0-36.0) g/dl RDW (11.0-16.0) % Plt Count (160-400) X10*3/uL MPV (9.4-12.4) fL Immature Gran % (Auto) (0.0-0.4) % Neut % (Auto) (45-73) % Lymph % (Auto) (20-40) % [place] % (Auto) (2-11) % Eos % (Auto) (0-4) % Baso % (Auto) (0-2) % Lymph # (Auto) (1.2-4.9) X10*3/uL [place] # (Auto) (0.1-1.2) X10*3/uL Eos # (Auto) (0.0-0.4) X10*3/uL Baso # (Auto) (0.0-0.2) X10*3/uL Abs Immat Gran (auto) (0.00-0.03) X10*3/uL Absolute Neuts (auto) (2.0-8.3) X10*3/uL Absolute Nucleated RBC (0.0-0.012) X10*3/uL Nucleated RBC % (auto) (0.0-0.2) /100WBC PT (10.8-13.0) SEC INR (0.9-1.1) APTT (24.1-38.0) SEC Sodium (135-145) mmol/L Potassium (3.3-5.1) mmol/L Chloride (96-108) mmol/L Carbon Dioxide (22-29) mmol/L Anion Gap (12-20) BUN (9-16) mg/dL Creatinine (0.5-1.4) mg/dL Estim Creat Clear Calc Estimated GFR POC Glucose (60-115) mg/dL Random Glucose (60-115) mg/dL Calcium (8.4-10.2) mg/dL Total Bilirubin (0.0-1.0) mg/dL Direct Bilirubin (0.0-0.5) mg/dL AST (5-37) U/L ALT (0-40) U/L Alkaline Phosphatase (39-117) U/L Troponin I High Sens < 3.5 (<3.5-35.0) ng/L Total Protein (6.5-8.0) g/dL Albumin (3.5-5.0) g/dL Lipase (8-78) U/L Urine Color YELLOW Urine Appearance CLEAR Urine pH 6.0 (5.0-8.0) Ur Specific [place] 1.015 (1.005-1.025) Urine Protein NEG (NEG-TRACE) MG/DL Urine Glucose (UA) NEG (NEG) MG/DL Urine Ketones NEG (NEG) MG/DL Urine Blood NEG (NEG) Urine Nitrite NEG (NEG) Ur Leukocyte Esterase NEG (NEG) Urine Opiates Screen Not Detected (Not Detect) Ur Barbiturates Screen Not Detected (Not Detect) Ur Phencyclidine Scrn Not Detected (Not Detect) Ur Amphetamines Screen Not Detected (Not Detect) U Benzodiazepines Scrn Not Detected (Not Detect) Urine Cocaine Screen Not Detected (Not Detect) U Marijuana (THC) Screen Not Detected (Not Detect) COVID-19 (MICHAELA) (Negative) COVID-19 Clin Com 05/07/21 05/07/21 Range/Units 20:13 20:28 WBC (4.8-10.8) X10*3/uL RBC (4.60-5.80) X10*6/uL Hgb (14.0-18.0) g/dl Hct (42-52) % MCV (80-98) fL MCH (27.0-33.0) pg MCHC (31.0-36.0) g/dl RDW (11.0-16.0) % Plt Count (160-400) X10*3/uL MPV (9.4-12.4) fL Immature Gran % (Auto) (0.0-0.4) % Neut % (Auto) (45-73) % Lymph % (Auto) (20-40) % [place] % (Auto) (2-11) % Eos % (Auto) (0-4) % Baso % (Auto) (0-2) % Lymph # (Auto) (1.2-4.9) X10*3/uL [place] # (Auto) (0.1-1.2) X10*3/uL Eos # (Auto) (0.0-0.4) X10*3/uL Baso # (Auto) (0.0-0.2) X10*3/uL Abs Immat Gran (auto) (0.00-0.03) X10*3/uL Absolute Neuts (auto) (2.0-8.3) X10*3/uL Absolute Nucleated RBC (0.0-0.012) X10*3/uL Nucleated RBC % (auto) (0.0-0.2) /100WBC PT (10.8-13.0) SEC INR (0.9-1.1) APTT (24.1-38.0) SEC Sodium (135-145) mmol/L Potassium (3.3-5.1) mmol/L Chloride (96-108) mmol/L Carbon Dioxide (22-29) mmol/L Anion Gap (12-20) BUN (9-16) mg/dL Creatinine (0.5-1.4) mg/dL Estim Creat Clear Calc Estimated GFR POC Glucose 201 H (60-115) mg/dL Random Glucose (60-115) mg/dL Calcium (8.4-10.2) mg/dL Total Bilirubin (0.0-1.0) mg/dL Direct Bilirubin (0.0-0.5) mg/dL AST (5-37) U/L ALT (0-40) U/L Alkaline Phosphatase (39-117) U/L Troponin I High Sens (<3.5-35.0) ng/L Total Protein (6.5-8.0) g/dL Albumin (3.5-5.0) g/dL Lipase (8-78) U/L Urine Color Urine Appearance Urine pH (5.0-8.0) Ur Specific [place] (1.005-1.025) Urine Protein (NEG-TRACE) MG/DL Urine Glucose (UA) (NEG) MG/DL Urine Ketones (NEG) MG/DL Urine Blood (NEG) Urine Nitrite (NEG) Ur Leukocyte Esterase (NEG) Urine Opiates Screen (Not Detect) Ur Barbiturates Screen (Not Detect) Ur Phencyclidine Scrn (Not Detect) Ur Amphetamines Screen (Not Detect) U Benzodiazepines Scrn (Not Detect) Urine Cocaine Screen (Not Detect) U Marijuana (THC) Screen (Not Detect) COVID-19 (MICHAELA) Negative (Negative) COVID-19 Clin Com See Note Discharge Plan Discharge Clinical Impression: Abdominal pain, Dizziness Prescriptions: No Action demeclocycline 300 mg tablet 300 mg PO BID RF: 0 dexlansoprazole [Dexilant] 60 mg capsule,biphase delayed releas 60 mg PO DAILY Qty: 28 RF: 11 propranolol 20 mg tablet 20 mg PO TID Qty: 84 RF: 5 cholecalciferol (vitamin D3) 25 mcg (1,000 unit) tablet 25 mcg PO DAILY Qty: 28 RF: 11 hydralazine 50 mg tablet 50 mg PO BID 90 Days Qty: 180 RF: 2 acetaminophen 325 mg tablet 650 mg PO Q4H PRN (Reason: fever or pain) 90 Days Qty: 180 RF: 2 amlodipine [Norvasc] 5 mg Tablet 5 mg PO DAILY RF: 0 aspirin [Ecotrin Low Strength] 81 mg Tablet,Delayed Release (Dr/Ec) 81 mg PO DAILY RF: 0 divalproex [Depakote ER] 500 mg Tablet Extended Release 24 Hr 1,000 mg PO BID RF: 0 Citrucel 500 mg Tablet 500 mg PO DAILY RF: 0 dicyclomine 20 mg Tablet 20 mg PO QID PRN (Reason: Cramps) RF: 0 ferrous sulfate 325 mg (65 mg iron) Tablet 325 mg PO BID Qty: 60 RF: 6 fluticasone propionate 50 mcg/actuation spray,suspension 1 spray intranasal BID RF: 0 atorvastatin 10 mg tablet 10 mg PO BEDTIME RF: 0 fluticasone propion-salmeterol [Advair Diskus] 250-50 mcg/dose blister with device 1 puff inhalation BID RF: 0 cyanocobalamin (vitamin B-12) 1,000 mcg tablet 1,000 mcg PO DAILY@2000 RF: 0 risperidone 3 mg tablet 3 mg PO BID RF: 0 gabapentin 100 mg capsule 100 mg PO BID RF: 0 metformin 500 mg tablet 500 mg PO BID Qty: 60 RF: 3 furosemide 20 mg tablet 20 mg PO DAILY RF: 0 lisinopril 20 mg tablet 20 mg PO DAILY RF: 0 PMFSH Past Medical History Medical History (Updated 05/07/21 @ 22:16 by PANKAJ Crain) Anemia Anxiety Asthma Cerebellar ataxia Depression Essential hypertension Hyperlipidemia LDL goal <100 Hypertension Hyponatremia Lactose intolerance Mental disability Obesity due to excess calories Peripheral vascular disease Proteinuria Seizure disorder Type 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 Vertigo Surgical History History of orchiectomy Family History Family History Father Myocardial infarction CVD (cardiovascular disease) Diabetes mellitus Mother Diabetes mellitus HTN (hypertension) Brother In good health Sister In good health Social History Social History Household Members: Other Household Members Other:: from detention Housing: Assisted Living Facility Housing Other:: detention Alcohol intake: never Patient Tobacco Use Status: Never used Tobacco Second Hand Smoke Exposure: No service: No Current occupational status: disabled
[2021-05-07] MEDS: 0.9 % Sodium Chloride 1,000 ML 999 ML IV (13:42)
[2021-05-07 13:45] LABS: MANUAL DIFF FLAG NO
--- NOTE | 2021-05-07 13:45 | PC.NURSE ---
PT REPORTS HAVING 10/10 ABD PAIN X1 WEEK AND NOT HAVING A BOWEL MOVEMENT FOR A COUPLE OF DAYS PT ALSO STATES THAT HE IS FEELING SUICIDAL AND HOMICIDAL FOR ABOUT ONE WEEK, SHANAE THE DIRECTOR ALSO STATED THAT PT MIGHT SAY THAT THAT WAY HE WILL GET TO STAY AND GET FOOD ABHI RIOS
[2021-05-07 13:49] LABS: Basophils Percent Auto 0.8 % (0-2); Eosinophils Absolute Auto 0.3 X10*3/uL (0.0-0.4); Hematocrit 28.6 % (42-52); Hemoglobin 9.3 g/dl (14.0-18.0); Imm Gran Abs Auto 0.04 X10*3/uL (0.00-0.03); Imm Gran Pct Auto 0.8 % (0.0-0.4); Lymphocytes Absolute Auto 1.3 X10*3/uL (1.2-4.9); Lymphocytes Percent Auto 25.3 % (20-40); Mean Corpuscular HGB Conc 32.5 g/dl (31.0-36.0); Mean Corpuscular Hemoglobin 28.4 pg (27.0-33.0); Mean Corpuscular Volume 87.2 fL (80-98); Mean Platelet Volume 10.2 fL (9.4-12.4); Monocytes Absolute Auto 0.4 X10*3/uL (0.1-1.2); Monocytes Percent Auto 8.4 % (2-11); Neutrophils Absolute Auto 2.9 X10*3/uL (2.0-8.3); Neutrophils Percent Auto 58.7 % (45-73); Platelet Count 168 X10*3/uL (160-400); Red Blood Count 3.28 X10*6/uL (4.60-5.80); Red Cell Distribution Width 14.2 % (11.0-16.0)
[2021-05-07 13:54] LABS: INTERNATIONAL NORM RATIO 0.9 (0.9-1.1); Prothrombin Time 11.1 SEC (10.8-13.0)
[2021-05-07 13:56] LABS: Partial Thromboplastin Time 34.9 SEC (24.1-38.0)
[2021-05-07 14:14] LABS: Troponin-I High Sensitivity < 3.5 ng/L (<3.5-35.0)
[2021-05-07 14:16] LABS: Alanine Aminotransferase 22 U/L (0-40); Albumin Level 3.6 g/dL (3.5-5.0); Alkaline Phosphatase 106 U/L (39-117); Anion Gap 15 (12-20); Aspartate Amino Transferase 30 U/L (5-37); Blood Urea Nitrogen 22 mg/dL (9-16); Calcium 8.9 mg/dL (8.4-10.2); Carbon Dioxide 21 mmol/L (22-29); Chloride 107 mmol/L (96-108); Estimated Glomerular Filt Rate > 60; Glucose Random 96 mg/dL (60-115); Lipase 43 U/L (8-78); Potassium 5.1 mmol/L (3.3-5.1); Sodium 138 mmol/L (135-145); Total Protein 6.5 g/dL (6.5-8.0)
[2021-05-07 14:30] LABS: Bilirubin Direct < 0.2 mg/dL (0.0-0.5); Bilirubin Total 0.4 mg/dL (0.0-1.0)
[2021-05-07 14:49] LABS: Glucose Urine UA NEG (NEG); Leukocyte Esterase Urine NEG (NEG); Nitrite Urine NEG (NEG); Specific Gravity - Urine 1.015 (1.005-1.025); Urine Blood NEG (NEG); Urine Ketones NEG (NEG); Urine Protein NEG (NEG-TRACE)
[2021-05-07 14:50] LABS: Appearance Urine CLEAR; Color Urine YELLOW
[2021-05-07] MEDS: iohexoL 350 MG/ML 100 ML INFUS..BTL IV ×2 (16:03→16:28)
[2021-05-07 16:35] VITALS: PULSE 77; RESP 20; O2SAT 97
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
--- NOTE | 2021-05-07 18:03 | PC.NURSE ---
[facility] referral sent over electronically
--- NOTE | 2021-05-07 18:18 | PC.NURSE ---
pt is currently being changed over
[2021-05-07 18:32] LABS: Amphetamine Screen Urine Not Detected (Not Detect); Barbiturates, Urine Not Detected (Not Detect); Benzodiazepines Screen Urine Not Detected (Not Detect); Cannabinoid Screen Urine Not Detected (Not Detect); Cocaine Screen Urine Not Detected (Not Detect); Opiate Screen Urine Not Detected (Not Detect); Phencyclidine Screen Urine Not Detected (Not Detect)
[2021-05-07 20:17] LABS: Glucose, Whole Blood 201 mg/dL (60-115)
--- NOTE | 2021-05-07 20:26 | PHA.MEDREC ---
Pharmacy Consult ? Medication Reconciliation Pharmacy has completed the medication reconciliation. [facility] not [facility] or furosemide for pt
[2021-05-07 20:27] VITALS: BP 166/94; PULSE 90; RESP 14; O2SAT 98
[2021-05-07 20:51] LABS: COVID-19 Test Negative (Negative); IDNOW Serial# 9DD0AD1C
--- NOTE | 2021-05-07 20:52 | PC.NURSE ---
Patient just got transferred from main ED in wheelchair, patient ambulates with walker, gait unsteady and patient is high fall risk, spoke with retirement nurse Wellington at [phone] reported that patient's calling 911 for help reporting medical issues is a baseline behavior of the patient, patient has done multiple times. [facility] is ready take him back, staff available to pick him up either before 11 pm or after 9 am. N called spoke with Martha confirmed receipt of referral, no clinician available at this time, care team made aware. Awaiting medication list fax from retirement. Patient reported he is hearing voices, voices telling him hurt himself, patient reported vividly that he does't want to go back to retirement. Patient is closely monitored for his ambulation, advised to ask for help if he has to walk. Patient agreed, will continue to monitor.
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
[2021-05-07] MEDS: Gabapentin 100 MG CAPSULE PO (23:28)
[2021-05-07] MEDS: risperiDONE 3 MG TABLET PO (23:28)
[2021-05-07] MEDS: Atorvastatin Calcium 10 MG TABLET PO (23:28)
[2021-05-07] MEDS: Divalproex Sodium ER 500 MG TAB.ER.24H 1000 MG PO (23:28)
[2021-05-07 23:31] VITALS: BP 165/101; PULSE 100
[2021-05-07] MEDS: Propranolol HCL 20 MG TABLET PO (23:31)
[2021-05-07 23:33] VITALS: BP 165/101; PULSE 100
[2021-05-07] MEDS: hydrALAZINE HCl 50 MG TABLET PO (23:33)
[2021-05-08 00:23] VITALS: TEMP 36; O2SAT 93
[2021-05-08 03:32] VITALS: BP 145/89; PULSE 124; RESP 17; TEMP 37; O2SAT 100
[2021-05-08] MEDS: LORazepam 0.5 MG TABLET PO (03:47)
--- NOTE | 2021-05-08 03:50 | PC.NURSE ---
Patient upset over discharge plan, adamantly requesting to send him to [facility], HR was 124, provider notified/ordered ativan 0.5 mg/administered as ordered/patient compliant/pending effect, will continue to monitor.
--- NOTE | 2021-05-08 06:06 | PC.NURSE ---
Patient was most part of the night, upset over his discharge plan, advised to get some sleep, went to bed at 0415 slept since, will continue to monitor.
[2021-05-08] MEDS: Omeprazole 40 MG CAPSULE.DR PO (06:29)
[2021-05-08] MEDS: Ferrous Sulfate 324 MG TABLET.DR PO (07:11)
[2021-05-08] MEDS: metFORMIN HCl 500 MG TABLET PO (07:11)
[2021-05-08] MEDS: calcium polycarbophiL TABLET 1 TAB PO (07:11)
[2021-05-08 07:18] LABS: Glucose, Whole Blood 94 mg/dL (60-115)
== END 2021-05-08 07:23 | disposition home or self-care (01) ==
PROVIDERS: Physician Assistant; Emergency Provider Emergency Medicine Emergency Medical Services; PCP Internal Medicine
DX: R10.33 Periumbilical pain (principal); R42 Dizziness and giddiness; I10 Essential (primary) hypertension; E11.9 Type 2 diabetes mellitus without complications; Z79.84 Long term (current) use of oral hypoglycemic drugs; Z79.899 Other long term (current) drug therapy; Z20.822 Contact with and (suspected) exposure to COVID-19
CPT/HCPCS: 36415; 70450; 74177; 80053; 80076; 80307; 81003; 82248; 82947; 83690; 84484; 85025; 85610; 85730; 87635; 93005; 96360; 99285; Q9967

== ENCOUNTER 2021-05-07 13:51 | Outpatient (REF) | payer MEDICARE, MEDICAID, SELFPAY | END 2021-05-07 13:52 | disposition home or self-care (01) | LOC: HO.LNP 13:51 | PROVIDERS: Visit Provider Obstetrics & Gynecology | DX: Z13.89 Encounter for screening for other disorder (principal) ==

== ENCOUNTER 2021-05-09 14:25 | Outpatient (REF) | payer MEDICARE, MEDICAID, SELFPAY ==
[2021-05-09 15:00] LABS: MANUAL DIFF FLAG NO
[2021-05-09 15:08] LABS: Basophils Percent Auto 0.7 % (0-2); Eosinophils Absolute Auto 0.2 X10*3/uL (0.0-0.4); Eosinophils Percent Auto 4.6 % (0-4); Hematocrit 29.9 % (42-52); Hemoglobin 9.5 g/dl (14.0-18.0); Imm Gran Abs Auto 0.02 X10*3/uL (0.00-0.03); Imm Gran Pct Auto 0.4 % (0.0-0.4); Lymphocytes Absolute Auto 1.6 X10*3/uL (1.2-4.9); Lymphocytes Percent Auto 34.3 % (20-40); Mean Corpuscular HGB Conc 31.8 g/dl (31.0-36.0); Mean Corpuscular Volume 88.2 fL (80-98); Mean Platelet Volume 9.6 fL (9.4-12.4); Monocytes Absolute Auto 0.4 X10*3/uL (0.1-1.2); Monocytes Percent Auto 9.6 % (2-11); Neutrophils Absolute Auto 2.3 X10*3/uL (2.0-8.3); Neutrophils Percent Auto 50.4 % (45-73); Platelet Count 176 X10*3/uL (160-400); Red Blood Count 3.39 X10*6/uL (4.60-5.80); Red Cell Distribution Width 14.6 % (11.0-16.0); White Blood Count 4.6 X10*3/uL (4.8-10.8)
[2021-05-09 15:42] LABS: Creatinine Urine 125.88 mg/dL; Microalbum/Creatinine Ratio Ur 7.1 ug/mg cr
[2021-05-09 15:48] LABS: Alanine Aminotransferase 22 U/L (0-40); Albumin Level 3.6 g/dL (3.5-5.0); Alkaline Phosphatase 104 U/L (39-117); Anion Gap 11 (12-20); Aspartate Amino Transferase 22 U/L (5-37); Blood Urea Nitrogen 21 mg/dL (9-16); Calcium 9.2 mg/dL (8.4-10.2); Carbon Dioxide 26 mmol/L (22-29); Chloride 108 mmol/L (96-108); Estimated Glomerular Filt Rate > 60; Glucose Random 107 mg/dL (60-115); Potassium 4.6 mmol/L (3.3-5.1); Sodium 140 mmol/L (135-145); Total Protein 6.2 g/dL (6.5-8.0)
[2021-05-09 15:49] LABS: Thyroid Stimulating Hormone 0.89 uIU/mL (0.32-4.0)
[2021-05-09 17:00] LABS: Bilirubin Total 0.2 mg/dL (0.0-1.0)
== END 2021-05-09 14:26 | disposition home or self-care (01) ==
LOC: HO.LAB 14:25
PROVIDERS: PCP Internal Medicine; Visit Provider Internal Medicine
DX: E11.29 Type 2 diabetes mellitus with other diabetic kidney complication (principal); E11.65 Type 2 diabetes mellitus with hyperglycemia; N17.9 Acute kidney failure, unspecified
CPT/HCPCS: 36415; 80053; 82043; 84443; 85025

== ENCOUNTER 2021-05-23 12:09 | Emergency (ER) | payer MEDICARE, MEDICAID, SELFPAY ==
--- NOTE | ~2021-05-23 | XR_ITS ---
EXAMINATION: XR CHEST CLINICAL INFORMATION: Chest pain COMPARISON: Previous chest x-ray February 2021 TECHNIQUE: Frontal view of the chest was obtained. FINDINGS: The cardiac and mediastinal contours are normal. The lungs are clear. There is no pleural effusion or pneumothorax. There are degenerative changes of the spine. XR/XR chest 1V IMPRESSION: Unremarkable examination.
--- NOTE | 2021-05-23 12:16 | ECG_ITS ---
Test Reason : CHEST PAIN Blood Pressure : / mmHG Vent. Rate : 075 BPM Atrial Rate : 075 BPM P-R Int : 192 ms QRS Dur : 096 ms QT Int : 392 ms P-R-T Axes : 086 002 038 degrees QTc Int : 437 ms Normal sinus rhythm Normal ECG When compared with ECG of 07-MAY-2021 14:48, No significant change was found Referred By: Nishant Fraire Electronically Signed By:Oni Mcneil
--- NOTE | 2021-05-23 12:17 | ED_ITS ---
HPI - Chest Pain General Chief Complaint: Chest Pain Stated Complaint: CHEST PAIN X'S WEEKS Time Seen by Provider: 05/23/21 12:16 Source: patient and EMS Mode of arrival: EMS Limitations: other (Mental and intellectual problem) History of Present Illness HPI narrative: 50-year-old male came in by ambulance for evaluation of chest pain. Patient described mid chest pain started 2 weeks ago, pain was described as int ermittent pain localized to the mid chest with no radiation, patient feel is going to pass out with shortness of breath. Patient came from [facility] for mental and intellectual problems, patient had history coming to the hospital for chest pain after having an argument with the staff for another roommate. Patient overall is poor historian due to his mental/intellectual retardation. Patient reportedly had argument with his roommate today. Related Data Home Medications Medication Instructions Recorded Confirmed demeclocycline 300 mg PO BID 09/04/20 05/07/21 risperidone 3 mg tablet 3 mg PO BID 09/22/20 05/07/21 atorvastatin 10 mg PO BEDTIME 11/28/20 05/07/21 amlodipine [Norvasc] 5 mg PO DAILY 01/23/21 05/07/21 aspirin [Ecotrin Low Strength] 81 mg PO DAILY 01/23/21 05/07/21 divalproex [Depakote ER] 1,000 mg PO BID 01/23/21 05/07/21 fluticasone propionate 1 spray INTRANASAL BID 03/05/21 05/07/21 dicyclomine 20 mg PO QID PRN 04/26/21 05/07/21 methylcellulose (laxative) 500 mg PO DAILY 04/26/21 05/07/21 [Citrucel] furosemide 20 mg tablet 20 mg PO DAILY 04/27/21 05/07/21 gabapentin 100 mg capsule 100 mg PO BID cap 04/27/21 05/07/21 lisinopril 20 mg tablet 20 mg PO DAILY 04/27/21 05/07/21 cyanocobalamin (vitamin B-12) 1,000 mcg PO DAILY@199905/07/21 05/07/21 fluticasone propion-salmeterol 1 puff INHALATION BID 05/07/21 05/07/21 [Advair Diskus] Previous Rx's Medication Instructions Recorded dexlansoprazole 60 mg 60 mg PO DAILY #28 cap 11/30/20 capsule,biphase delayed release cholecalciferol (vitamin D3) 25 25 mcg PO DAILY #28 tab 12/19/20 mcg (1,000 unit) tablet hydralazine 50 mg tablet 50 mg PO BID 90 Days #180 tab 03/12/21 acetaminophen 325 mg tablet 650 mg PO Q4H PRN 90 Days #180 tab 04/27/21 ferrous sulfate 325 mg PO BID #60 tab 04/27/21 metformin 500 mg tablet 500 mg PO BID #60 tab 04/27/21 psyllium husk 0.52 gram capsule 0.52 g PO DAILY #30 cap 05/17/21 starch (thickening) 1 ea PO TID 90 Days #850 g 05/17/21 propranolol 20 mg tablet 20 mg PO TID 90 Days #270 tab 05/18/21 Allergies Allergy/AdvReac Type Severity Reaction Status Date / Time Sulfa (Sulfonamide Allergy Severe LANDEROS Verified 05/23/21 12:14 Antibiotics) ALICIA REACTION, Landeros Alicia trimethoprim Allergy Mild UNKNOWN Verified 05/23/21 12:14 lactose AdvReac Mild STOMACH Verified 05/23/21 12:14 UPSET Review of Systems Review of Systems: Yes all other systems are reviewed and are negative PMF Past Medical History Medical History Anemia Anxiety Asthma Cerebellar ataxia Depression Essential hypertension Hyperlipidemia LDL goal <100 Hypertension Hyponatremia Lactose intolerance Mental disability Obesity due to excess calories Peripheral vascular disease Proteinuria Seizure disorder Type 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 Vertigo Surgical History History of orchiectomy Family History Family History Father Myocardial infarction CVD (cardiovascular disease) Diabetes mellitus Mother Diabetes mellitus HTN (hypertension) Brother In good health Sister In good health Social History Social History Household Members: Other Household Members Other:: from intermediate Housing: Assisted Living Facility Housing Other:: intermediate Alcohol intake: never Patient Tobacco Use Status: Never used Tobacco Second Hand Smoke Exposure: No Use of substances other than those prescribed or required for medical reasons: No Advance Directives: Yes Advance Directives on File: Yes Advance Directives Date on File: 05/23/21 service: No Current occupational status: disabled Physical Exam Vital Signs: Vital Signs: Last Vital Signs Pulse 75 05/23/21 12:24 Resp 16 05/23/21 12:24 BP 166/79 H 05/23/21 12:24 Pulse Ox 98 05/23/21 12:24 Body Mass Index 35.6 Vital signs have been reviewed as appeared to be correct. Blood pressure normal. Heart rate normal. Respiration rate normal. Temperature normal. O xygen saturation normal. Appearance: Alert. Oriented X3. No acute distress. Head: Normal external exam. Normocephalic. Atraumatic. No Corona signs noted. No raccoon eyes noted Eyes: PERRLA. EOMI. Conjunctiva and sclera normal. Eyelids normal. ENT: TM's Normal. Pharynx normal. Uvula midline. Moist mucous membranes. No trismus noted. No drooling noted. No muffled voice noted. Neck: Normal inspection. Neck supple. FROM. No adenopathy. Thyroid Normal. No meningeal signs. No neck mass noted. CVS: Normal heart rate and rhythm. Heart sound normal. No murmurs noted. Pulses normal throughout. Respiratory: No respiratory distress. Painless inspiration. Breath sounds normal. No wheezes/rales/rhonchi noted. Chest nontender. No accessory muscle usage noted or decreased air movement noted. Abdomen: Soft and nontender. Bowel sounds normal in all 4 quadrants. No dis tention noted. No organomegaly noted. No visible injury noted. Back: No CVA tenderness. Full range of motion noted. Skin: Skin warm and dry. Normal skin color. Normal skin turgor. No rashes/les ions/lacerations noted. Extremities: No lower extremity edema. Extremities exhibit normal range of motion. Extremities nontender. Neuro: Oriented X 3. No motor deficit. No sensory deficit. Reflexes normal. Course Course Course Narrative: 50-year-old male came in with complaint of chest pain for 2 weeks, patient had multiple ED visits for similar complaints usually happen after he is not happy with staff or the roommate. Seems like patient had argument with his roommate today is why he came to the hospital, patient is saying now that he does not want to go back to his intermediate and he would like to speak with crisis team for suicidal ideation. Reevaluation(s) Reevaluation #1: Patient is mentally/developmentally delayed was seen and evaluated by care team, with more investigation and calling the intermediate rosa bryson is hospital/ER seeker. Patient is cleared to go back to the intermediate. Time: 15:42 MDM - Chest Pain Lab Data Attestation: I reviewed the patient's lab results. Result diagrams: 05/23/21 12:33 05/23/21 12:33 Labs: Lab Results 05/23/21 05/23/21 05/23/21 Range/Units 12:33 12:33 12:33 WBC 4.2 L (4.8-10.8) X10*3/uL RBC 3.70 L (4.60-5.80) X10*6/uL Hgb 10.8 L (14.0-18.0) g/dl Hct 32.3 L (42-52) % MCV 87.3 (80-98) fL MCH 29.2 (27.0-33.0) pg MCHC 33.4 (31.0-36.0) g/dl RDW 14.4 (11.0-16.0) % Plt Count 134 L (160-400) X10*3/uL MPV 10.3 (9.4-12.4) fL Immature Gran % (Auto) 0.5 H (0.0-0.4) % Neut % (Auto) 54.8 (45-73) % Lymph % (Auto) 31.6 (20-40) % Hall % (Auto) 9.3 (2-11) % Eos % (Auto) 3.1 (0-4) % Baso % (Auto) 0.7 (0-2) % Lymph # (Auto) 1.3 (1.2-4.9) X10*3/uL Hall # (Auto) 0.4 (0.1-1.2) X10*3/uL Eos # (Auto) 0.1 (0.0-0.4) X10*3/uL Baso # (Auto) 0.0 (0.0-0.2) X10*3/uL Abs Immat Gran (auto) 0.02 (0.00-0.03) X10*3/uL Absolute Neuts (auto) 2.3 (2.0-8.3) X10*3/uL Absolute Nucleated RBC 0.000 (0.0-0.012) X10*3/uL Nucleated RBC % (auto) 0.0 (0.0-0.2) /100WBC Sodium 132 L (135-145) mmol/L Potassium 4.3 (3.3-5.1) mmol/L Chloride 98 (96-108) mmol/L Carbon Dioxide 25 (22-29) mmol/L Anion Gap 13 (12-20) BUN 16 (9-16) mg/dL Creatinine 0.85 (0.5-1.4) mg/dL Estim Creat Clear Calc 112.6 Estimated GFR > 60 Random Glucose 90 (60-115) mg/dL Calcium 9.0 (8.4-10.2) mg/dL Troponin I High Sens < 3.5 (<3.5-35.0) ng/L Lipase 55 (8-78) U/L Imaging Data Chest x-ray: Radiologist's impression: Unremarkable ECG Data ECG #1: Interpretation: Normal sinus rhythm at 75 beats per minute, left axis deviation, normal intervals, no ST-T changes. Discharge Plan Discharge Clinical Impression: Anxiety Patient Disposition: Home, Self-Care Instructions: Anxiety (ED) Prescriptions: No Action demeclocycline 300 mg tablet 300 mg PO BID RF: 0 dexlansoprazole [Dexilant] 60 mg capsule,biphase delayed releas 60 mg PO DAILY Qty: 28 RF: 11 cholecalciferol (vitamin D3) 25 mcg (1,000 unit) tablet 25 mcg PO DAILY Qty: 28 RF: 11 hydralazine 50 mg tablet 50 mg PO BID 90 Days Qty: 180 RF: 2 acetaminophen 325 mg tablet 650 mg PO Q4H PRN (Reason: fever or pain) 90 Days Qty: 180 RF: 2 [employer] Thick-It Powder 1 ea PO TID 90 Days Qty: 850 RF: 3 psyllium husk [Metamucil] 0.52 gram capsule 0.52 g PO DAILY Qty: 30 RF: 4 propranolol 20 mg tablet 20 mg PO TID 90 Days Qty: 270 RF: 1 amlodipine [Norvasc] 5 mg Tablet 5 mg PO DAILY RF: 0 aspirin [Ecotrin Low Strength] 81 mg Tablet,Delayed Release (Dr/Ec) 81 mg PO DAILY RF: 0 divalproex [Depakote ER] 500 mg Tablet Extended Release 24 Hr 1,000 mg PO BID RF: 0 Citrucel 500 mg Tablet 500 mg PO DAILY RF: 0 dicyclomine 20 mg Tablet 20 mg PO QID PRN (Reason: Cramps) RF: 0 ferrous sulfate 325 mg (65 mg iron) Tablet 325 mg PO BID Qty: 60 RF: 6 fluticasone propionate 50 mcg/actuation spray,suspension 1 spray intranasal BID RF: 0 atorvastatin 10 mg tablet 10 mg PO BEDTIME RF: 0 fluticasone propion-salmeterol [Advair Diskus] 250-50 mcg/dose blister with device 1 puff inhalation BID RF: 0 cyanocobalamin (vitamin B-12) 1,000 mcg tablet 1,000 mcg PO DAILY@1999 RF: 0 risperidone 3 mg tablet 3 mg PO BID RF: 0 gabapentin 100 mg capsule 100 mg PO BID RF: 0 metformin 500 mg tablet 500 mg PO BID Qty: 60 RF: 3 furosemide 20 mg tablet 20 mg PO DAILY RF: 0 lisinopril 20 mg tablet 20 mg PO DAILY RF: 0 Referrals: Po,Robert Downing MD [Primary Care Provider] - 2 days
[2021-05-23 12:19] VITALS: BP 134/80; BP 166/79; PULSE 75; PULSE 77; RESP 16; O2SAT 96; O2SAT 98; BMI 35.6
[2021-05-23 12:24] VITALS: BP 166/79; PULSE 75; RESP 16; O2SAT 98
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
[2021-05-23 12:47] LABS: Hemoglobin 10.8 g/dl (14.0-18.0); Imm Gran Abs Auto 0.02 X10*3/uL (0.00-0.03); Imm Gran Pct Auto 0.5 % (0.0-0.4)
[2021-05-23 12:49] LABS: Basophils Percent Auto 0.7 % (0-2); Eosinophils Absolute Auto 0.1 X10*3/uL (0.0-0.4); Eosinophils Percent Auto 3.1 % (0-4); Hematocrit 32.3 % (42-52); Lymphocytes Absolute Auto 1.3 X10*3/uL (1.2-4.9); Lymphocytes Percent Auto 31.6 % (20-40); Mean Corpuscular HGB Conc 33.4 g/dl (31.0-36.0); Mean Corpuscular Hemoglobin 29.2 pg (27.0-33.0); Mean Corpuscular Volume 87.3 fL (80-98); Mean Platelet Volume 10.3 fL (9.4-12.4); Monocytes Absolute Auto 0.4 X10*3/uL (0.1-1.2); Monocytes Percent Auto 9.3 % (2-11); Neutrophils Absolute Auto 2.3 X10*3/uL (2.0-8.3); Neutrophils Percent Auto 54.8 % (45-73); Platelet Count 134 X10*3/uL (160-400); Red Cell Distribution Width 14.4 % (11.0-16.0); White Blood Count 4.2 X10*3/uL (4.8-10.8)
[2021-05-23 12:54] LABS: MANUAL DIFF FLAG NO
[2021-05-23 13:30] LABS: Anion Gap 13 (12-20); Blood Urea Nitrogen 16 mg/dL (9-16); Carbon Dioxide 25 mmol/L (22-29); Chloride 98 mmol/L (96-108); Creatinine Clr Calc Pharmacy 112.6; Estimated Glomerular Filt Rate > 60; Glucose Random 90 mg/dL (60-115); Lipase 55 U/L (8-78); Potassium 4.3 mmol/L (3.3-5.1); Sodium 132 mmol/L (135-145)
[2021-05-23 13:32] LABS: Troponin-I High Sensitivity < 3.5 ng/L (<3.5-35.0)
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
[2021-05-23 15:53] VITALS: BP 157/87; PULSE 78; RESP 16; O2SAT 98
[2021-05-23 16:00] VITALS: BP 142/73; PULSE 82; RESP 16; TEMP 36.9; O2SAT 100
--- NOTE | 2021-05-23 16:11 | PC.NURSE ---
pt was seen by crisis, cleared to return to long term. He states he feels better, states he will talk to long term staff when he feels angry with roomate. Pt denies SI or HI. He is ready for discharge
== END 2021-05-23 16:12 | disposition home or self-care (01) ==
PROVIDERS: Emergency Provider Emergency Medicine; PCP Internal Medicine
DX: R07.9 Chest pain, unspecified (principal); F41.1 Generalized anxiety disorder; F43.0 Acute stress reaction; Z79.899 Other long term (current) drug therapy
CPT/HCPCS: 36415; 71045; 80048; 83690; 84484; 85025; 93005; 99284; 99285

== ENCOUNTER 2021-05-31 21:53 | Inpatient (IN) | payer MEDICARE, MEDICAID, SELFPAY ==
[2021-05-31 21:59] VITALS: BP 143/83; PULSE 74; RESP 19; TEMP 36.6; O2SAT 99; BMI 33.9
--- NOTE | 2021-05-31 22:05 | ECG_ITS ---
Test Reason : CHEST PAIN Blood Pressure : / mmHG Vent. Rate : 074 BPM Atrial Rate : 300 BPM P-R Int : 000 ms QRS Dur : 102 ms QT Int : 396 ms P-R-T Axes : 000 002 037 degrees QTc Int : 439 ms Poor data quality Possible Normal sinus rhythm When compared with ECG of 23-MAY-2021 13:21, Poor data quality in current ECG precludes serial comparison Referred By: Vanna Westfall Electronically Signed By:LINDA CHAMBERLAIN MD
[2021-05-31 22:34] VITALS: BP 147/83; PULSE 74; RESP 18; TEMP 36.6; O2SAT 99
[2021-05-31 23:14] LABS: Hematocrit 30.7 % (42-52); Hemoglobin 10.9 g/dl (14.0-18.0); MANUAL DIFF FLAG SCAN; Mean Corpuscular HGB Conc 35.5 g/dl (31.0-36.0); Mean Corpuscular Hemoglobin 29.1 pg (27.0-33.0); Mean Corpuscular Volume 82.1 fL (80-98); PLT CLUMP 1; Red Blood Count 3.74 X10*6/uL (4.60-5.80); SCAN SMEAR FLAG 1
[2021-05-31 23:16] LABS: Basophils Percent Auto 0.3 % (0-2); Eosinophils Absolute Auto 0.1 X10*3/uL (0.0-0.4); Eosinophils Percent Auto 1.9 % (0-4); Imm Gran Abs Auto 0.02 X10*3/uL (0.00-0.03); Imm Gran Pct Auto 0.5 % (0.0-0.4); Lymphocytes Absolute Auto 1.1 X10*3/uL (1.2-4.9); Lymphocytes Percent Auto 30.1 % (20-40); Mean Platelet Volume 9.8 fL (9.4-12.4); Monocytes Absolute Auto 0.5 X10*3/uL (0.1-1.2); Neutrophils Absolute Auto 2.1 X10*3/uL (2.0-8.3); Neutrophils Percent Auto 55.2 % (45-73); Red Cell Distribution Width 13.2 % (11.0-16.0); White Blood Count 3.8 X10*3/uL (4.8-10.8)
[2021-05-31 23:26] LABS: Platelet Count 99 X10*3/uL (160-400)
--- NOTE | 2021-05-31 23:26 | ED_ITS ---
HPI - Psych General Chief Complaint: Psychiatric Symptoms Stated Complaint: chest pain crisis Time Seen by Provider: 05/31/21 22:02 Source: patient and EMS Mode of arrival: EMS Limitations: no limitations History of Present Illness HPI Narrative: Patient comes to emergency room complaining of right-sided chest pain to patient's [facility] called EMS, patient states his chest started hurting after having an argument with his roommate. Patient is known to the emergency room service, patient comes in with similar complaints every time he has a fight with his roommate. Patient denies abdominal pain, no fever or chills. Related Data Home Medications Medication Instructions Recorded Confirmed demeclocycline 300 mg PO BID 09/04/20 05/31/21 risperidone 3 mg tablet 3 mg PO BID 09/22/20 05/31/21 atorvastatin 10 mg PO BEDTIME 11/28/20 05/31/21 amlodipine [Norvasc] 5 mg PO DAILY 01/23/21 05/31/21 aspirin [Ecotrin Low Strength] 81 mg PO DAILY 01/23/21 05/31/21 divalproex [Depakote ER] 1,000 mg PO BID 01/23/21 05/31/21 fluticasone propionate 1 spray INTRANASAL BID 03/05/21 05/31/21 dicyclomine 20 mg PO QID PRN 04/26/21 05/31/21 methylcellulose (laxative) 500 mg PO DAILY 04/26/21 05/31/21 [Citrucel] furosemide 20 mg tablet 20 mg PO DAILY 04/27/21 05/31/21 gabapentin 100 mg capsule 100 mg PO BID cap 04/27/21 05/31/21 lisinopril 20 mg tablet 20 mg PO DAILY 04/27/21 05/31/21 cyanocobalamin (vitamin B-12) 1,000 mcg PO DAILY@199905/07/21 05/31/21 fluticasone propion-salmeterol 1 puff INHALATION BID 05/07/21 05/31/21 [Advair Diskus] Previous Rx's Medication Instructions Recorded dexlansoprazole 60 mg 60 mg PO DAILY #28 cap 11/30/20 capsule,biphase delayed release cholecalciferol (vitamin D3) 25 25 mcg PO DAILY #28 tab 12/19/20 mcg (1,000 unit) tablet hydralazine 50 mg tablet 50 mg PO BID 90 Days #180 tab 03/12/21 acetaminophen 325 mg tablet 650 mg PO Q4H PRN 90 Days #180 tab 04/27/21 metformin 500 mg tablet 500 mg PO BID #60 tab 04/27/21 propranolol 20 mg tablet 20 mg PO TID 90 Days #270 tab 05/18/21 Allergies Allergy/AdvReac Type Severity Reaction Status Date / Time Sulfa (Sulfonamide Allergy Severe LANDEROS Verified 05/23/21 12:14 Antibiotics) ALICIA REACTION, Landeros Alicia trimethoprim Allergy Mild UNKNOWN Verified 05/23/21 12:14 lactose AdvReac Mild STOMACH Verified 05/23/21 12:14 UPSET Review of Systems Review of Systems: Constitutional : No Weight loss, No Fever, No Chills, No Night Sweats, No Fatigue, No Malaise ENT/Mouth : No Hearing loss, No Ear Pain, No Nasal Congestion, No Sinus Pain, No Hoarseness, No sore throat, No Rhinorrhea, No Swallowing Difficulty Eyes: No Eye Pain, No Swelling, No Redness, No Foreign Body, No Discharge, No Vision Changes Cardiovascular : Complaining of right-sided chest pain, No SOB, No Dyspnea on Exertion, No Orthopnea, No Edema, No Palpitations Respiratory : No Cough, No Sputum, No Wheezing, No Smoke Exposure, No Dyspnea Gastrointestinal : No Nausea, No Vomiting, No Diarrhea, No Constipation, No abdominal Pain, No Hematochezia, No Melena Genitourinary : no irregular bleeding, No Dysuria, No Urinary Frequency, No Hematuria, No Urinary Incontinence, No Urgency, No Flank Pain, No Urinary Flow Changes, No Hesitancy Musculoskeletal : No joint pain, No Myalgias, No Joint Swelling Skin : No Skin Lesions, No rash Neuro : No Weakness, No Numbness, No Paresthesias, No Loss of Consciousness, No Dizziness, No Headache Psych : No Anxiety/Panic, No Depression, No SI/HI/AH/VH, No Social Issues, Heme/Lymph: No Bruising, No Bleeding,No Lymphadenopathy Endocrine : No Polyuria, No Polydipsia, No Temperature Intolerance [facility] Past Medical History Medical History Anemia Anxiety Asthma Cerebellar ataxia Depression Essential hypertension Hyperlipidemia LDL goal <100 Hypertension Hyponatremia Lactose intolerance Mental disability Obesity due to excess calories Peripheral vascular disease Proteinuria Seizure disorder Type 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 Vertigo Surgical History History of orchiectomy Family History Family History Father Myocardial infarction CVD (cardiovascular disease) Diabetes mellitus Mother Diabetes mellitus HTN (hypertension) Brother In good health Sister In good health Social History Social History Household Members: Other Household Members Other:: from [facility] Housing: Assisted Living Facility Housing Other:: [facility] Alcohol intake: never Patient Tobacco Use Status: Never used Tobacco Second Hand Smoke Exposure: No Advance Directives: Yes Advance Directives on File: Yes Advance Directives Date on File: 05/23/21 service: No Current occupational status: disabled Physical Exam Vital Signs: Vital Signs: Last Vital Signs Temp 97.8 F 05/31/21 22:34 Pulse 84 06/01/21 03:21 Resp 17 06/01/21 03:21 BP 121/64 06/01/21 03:21 Pulse Ox 100 06/01/21 03:21 Body Mass Index 33.9 Appearance: Alert. Oriented X3. No acute distress. Eyes: Pupils equal, round and reactive to light. ENT: Pharynx normal. Neck: Normal inspection. Neck supple. No lymph nodes noted. No crepitus CVS: Normal heart rate and rhythm. Pulses normal. Normal S1 and S2 Respiratory: No respiratory distress. Breath sounds normal. No Wheezing. No rales Abdomen: Soft and nontender. No rigidity. No distention. good BS x4 Skin: Skin warm and dry. Normal skin color. Normal skin turgor. Extremities: No lower extremity edema. No Lacerations. No Rash Neuro: Oriented X 3. No motor deficit. No sensory deficit. Moving all extermities. No slurred speech. Course Course Course Narrative: Patient has had low sodium in the past, but never 119. Patient is otherwise asymptomatic. According to patient's nurse who knows him well, patient is supposed to be on a [facility] restriction at the [facility], but seems that the patient has been not compliant. At this time, although the sodium is 119, he does not seem to need ICU care level. Patient was given 1 L of normal saline, labs will be repeated after the fluids. Patient will likely be going to [facility]. I discussed the patient with Dr. Chauhan, patient being admitted [facility] - Psych Lab Data Result diagrams: 06/01/21 02:39 06/01/21 02:39 Labs: Lab Results 05/31/21 05/31/21 05/31/21 Range/Units 22:39 23:08 23:08 WBC 3.8 L (4.8-10.8) X10*3/uL RBC 3.74 L (4.60-5.80) X10*6/uL Hgb 10.9 L (14.0-18.0) g/dl Hct 30.7 L (42-52) % MCV 82.1 (80-98) fL MCH 29.1 (27.0-33.0) pg MCHC 35.5 (31.0-36.0) g/dl RDW 13.2 (11.0-16.0) % Plt Count 99 L D (160-400) X10*3/uL MPV 9.8 (9.4-12.4) fL Immature Gran % (Auto) 0.5 H (0.0-0.4) % Neut % (Auto) 55.2 (45-73) % Lymph % (Auto) 30.1 (20-40) % [place] % (Auto) 12.0 H (2-11) % Eos % (Auto) 1.9 (0-4) % Baso % (Auto) 0.3 (0-2) % Lymph # (Auto) 1.1 L (1.2-4.9) X10*3/uL [place] # (Auto) 0.5 (0.1-1.2) X10*3/uL Eos # (Auto) 0.1 (0.0-0.4) X10*3/uL Baso # (Auto) 0.0 (0.0-0.2) X10*3/uL Abs Immat Gran (auto) 0.02 (0.00-0.03) X10*3/uL Absolute Neuts (auto) 2.1 (2.0-8.3) X10*3/uL Absolute Nucleated RBC 0.000 (0.0-0.012) X10*3/uL Nucleated RBC % (auto) 0.0 (0.0-0.2) /100WBC Smear Tech's Comments VERIFIED Sodium 119 L* (135-145) mmol/L Potassium 4.3 (3.3-5.1) mmol/L Chloride 87 L (96-108) mmol/L Carbon Dioxide 25 (22-29) mmol/L Anion Gap 11 L (12-20) BUN 12 (9-16) mg/dL Creatinine 0.83 (0.5-1.4) mg/dL Estim Creat Clear Calc 116.3 Estimated GFR > 60 Random Glucose 126 H D (60-115) mg/dL Calcium 9.0 (8.4-10.2) mg/dL Total Bilirubin 0.2 (0.0-1.0) mg/dL Direct Bilirubin < 0.2 (0.0-0.5) mg/dL AST 37 D (5-37) U/L ALT 23 (0-40) U/L Alkaline Phosphatase 91 (39-117) U/L Troponin I High Sens (<3.5-35.0) ng/L Total Protein 6.6 (6.5-8.0) g/dL Albumin 3.9 (3.5-5.0) g/dL Urine Color Urine Appearance Urine pH (5.0-8.0) Ur Specific [place] (1.005-1.025) Urine Protein (NEG-TRACE) MG/DL Urine Glucose (UA) (NEG) MG/DL Urine Ketones (NEG) MG/DL Urine Blood (NEG) Urine Nitrite (NEG) Ur Leukocyte Esterase (NEG) Urine RBC (0) /HPF Urine WBC (0-4) /HPF Ur Squamous Epith Cells /LPF Urine Bacteria /LPF Urine Osmolality (373-1093) mosm/kg Urine Opiates Screen (Not Detect) Ur Barbiturates Screen (Not Detect) Ur Phencyclidine Scrn (Not Detect) Ur Amphetamines Screen (Not Detect) U Benzodiazepines Scrn (Not Detect) Urine Cocaine Screen (Not Detect) U Marijuana (THC) Screen (Not Detect) COVID-19 (MICHAELA) Negative (Negative) COVID-19 Clin Com See Note 05/31/21 05/31/21 05/31/21 Range/Units 23:08 23:27 23:27 WBC (4.8-10.8) X10*3/uL RBC (4.60-5.80) X10*6/uL Hgb (14.0-18.0) g/dl Hct (42-52) % MCV (80-98) fL MCH (27.0-33.0) pg MCHC (31.0-36.0) g/dl RDW (11.0-16.0) % Plt Count (160-400) X10*3/uL MPV (9.4-12.4) fL Immature Gran % (Auto) (0.0-0.4) % Neut % (Auto) (45-73) % Lymph % (Auto) (20-40) % [place] % (Auto) (2-11) % Eos % (Auto) (0-4) % Baso % (Auto) (0-2) % Lymph # (Auto) (1.2-4.9) X10*3/uL [place] # (Auto) (0.1-1.2) X10*3/uL Eos # (Auto) (0.0-0.4) X10*3/uL Baso # (Auto) (0.0-0.2) X10*3/uL Abs Immat Gran (auto) (0.00-0.03) X10*3/uL Absolute Neuts (auto) (2.0-8.3) X10*3/uL Absolute Nucleated RBC (0.0-0.012) X10*3/uL Nucleated RBC % (auto) (0.0-0.2) /100WBC Smear Tech's Comments Sodium (135-145) mmol/L Potassium (3.3-5.1) mmol/L Chloride (96-108) mmol/L Carbon Dioxide (22-29) mmol/L Anion Gap (12-20) BUN (9-16) mg/dL Creatinine (0.5-1.4) mg/dL Estim Creat Clear Calc Estimated GFR Random Glucose (60-115) mg/dL Calcium (8.4-10.2) mg/dL Total Bilirubin (0.0-1.0) mg/dL Direct Bilirubin (0.0-0.5) mg/dL AST (5-37) U/L ALT (0-40) U/L Alkaline Phosphatase (39-117) U/L Troponin I High Sens < 3.5 (<3.5-35.0) ng/L Total Protein (6.5-8.0) g/dL Albumin (3.5-5.0) g/dL Urine Color YELLOW Urine Appearance CLEAR Urine pH 6.0 (5.0-8.0) Ur Specific [place] <= 1.005 (1.005-1.025) Urine Protein NEG (NEG-TRACE) MG/DL Urine Glucose (UA) NEG (NEG) MG/DL Urine Ketones NEG (NEG) MG/DL Urine Blood NEG (NEG) Urine Nitrite NEG (NEG) Ur Leukocyte Esterase NEG (NEG) Urine RBC 0-2 (0) /HPF Urine WBC 0 (0-4) /HPF Ur Squamous Epith Cells TRACE /LPF Urine Bacteria NONE /LPF Urine Osmolality (373-1093) mosm/kg Urine Opiates Screen Not Detected (Not Detect) Ur Barbiturates Screen Not Detected (Not Detect) Ur Phencyclidine Scrn Not Detected (Not Detect) Ur Amphetamines Screen Not Detected (Not Detect) U Benzodiazepines Scrn Not Detected (Not Detect) Urine Cocaine Screen Not Detected (Not Detect) U Marijuana (THC) Screen Not Detected (Not Detect) COVID-19 (MICHAELA) (Negative) COVID-19 Clin Com 05/31/21 Range/Units 23:27 WBC (4.8-10.8) X10*3/uL RBC (4.60-5.80) X10*6/uL Hgb (14.0-18.0) g/dl Hct (42-52) % MCV (80-98) fL MCH (27.0-33.0) pg MCHC (31.0-36.0) g/dl RDW (11.0-16.0) % Plt Count (160-400) X10*3/uL MPV (9.4-12.4) fL Immature Gran % (Auto) (0.0-0.4) % Neut % (Auto) (45-73) % Lymph % (Auto) (20-40) % [place] % (Auto) (2-11) % Eos % (Auto) (0-4) % Baso % (Auto) (0-2) % Lymph # (Auto) (1.2-4.9) X10*3/uL [place] # (Auto) (0.1-1.2) X10*3/uL Eos # (Auto) (0.0-0.4) X10*3/uL Baso # (Auto) (0.0-0.2) X10*3/uL Abs Immat Gran (auto) (0.00-0.03) X10*3/uL Absolute Neuts (auto) (2.0-8.3) X10*3/uL Absolute Nucleated RBC (0.0-0.012) X10*3/uL Nucleated RBC % (auto) (0.0-0.2) /100WBC Smear Tech's Comments Sodium (135-145) mmol/L Potassium (3.3-5.1) mmol/L Chloride (96-108) mmol/L Carbon Dioxide (22-29) mmol/L Anion Gap (12-20) BUN (9-16) mg/dL Creatinine (0.5-1.4) mg/dL Estim Creat Clear Calc Estimated GFR Random Glucose (60-115) mg/dL Calcium (8.4-10.2) mg/dL Total Bilirubin (0.0-1.0) mg/dL Direct Bilirubin (0.0-0.5) mg/dL AST (5-37) U/L ALT (0-40) U/L Alkaline Phosphatase (39-117) U/L Troponin I High Sens (<3.5-35.0) ng/L Total Protein (6.5-8.0) g/dL Albumin (3.5-5.0) g/dL Urine Color Urine Appearance Urine pH (5.0-8.0) Ur Specific [place] (1.005-1.025) Urine Protein (NEG-TRACE) MG/DL Urine Glucose (UA) (NEG) MG/DL Urine Ketones (NEG) MG/DL Urine Blood (NEG) Urine Nitrite (NEG) Ur Leukocyte Esterase (NEG) Urine RBC (0) /HPF Urine WBC (0-4) /HPF Ur Squamous Epith Cells /LPF Urine Bacteria /LPF Urine Osmolality 204 L (373-1093) mosm/kg Urine Opiates Screen (Not Detect) Ur Barbiturates Screen (Not Detect) Ur Phencyclidine Scrn (Not Detect) Ur Amphetamines Screen (Not Detect) U Benzodiazepines Scrn (Not Detect) Urine Cocaine Screen (Not Detect) U Marijuana (THC) Screen (Not Detect) COVID-19 (MICHAELA) (Negative) COVID-19 Clin Com Discharge Plan Discharge Clinical Impression: Acute hyponatremia, Hypomagnesemia Patient Disposition: Admitted As Inpatient
[2021-05-31 23:33] LABS: SLIDE REVIEW VERIFIED
[2021-05-31 23:36] LABS: Glucose Urine UA NEG (NEG); Leukocyte Esterase Urine NEG (NEG); Nitrite Urine NEG (NEG); Specific Gravity - Urine <= 1.005 (1.005-1.025); Urine Blood NEG (NEG); Urine Ketones NEG (NEG); Urine Protein NEG (NEG-TRACE)
[2021-05-31 23:37] LABS: Appearance Urine CLEAR; Color Urine YELLOW
[2021-05-31 23:44] LABS: Troponin-I High Sensitivity < 3.5 ng/L (<3.5-35.0)
[2021-05-31 23:52] LABS: COVID-19 Test Negative (Negative); IDNOW Serial# 9DD0AD1C
[2021-05-31 23:54] LABS: RBC Urine 0-2 /HPF (0); Squamous Epithelial Cell Urine TRACE /LPF; WBC Urine 0 /HPF (0-4)
[2021-05-31 23:56] LABS: Alanine Aminotransferase 23 U/L (0-40); Albumin Level 3.9 g/dL (3.5-5.0); Alkaline Phosphatase 91 U/L (39-117); Anion Gap 11 (12-20); Aspartate Amino Transferase 37 U/L (5-37); Bilirubin Direct < 0.2 mg/dL (0.0-0.5); Bilirubin Total 0.2 mg/dL (0.0-1.0); Blood Urea Nitrogen 12 mg/dL (9-16); Carbon Dioxide 25 mmol/L (22-29); Chloride 87 mmol/L (96-108); Creatinine Clr Calc Pharmacy 116.3; Estimated Glomerular Filt Rate > 60; Glucose Random 126 mg/dL (60-115); Potassium 4.3 mmol/L (3.3-5.1); Sodium 119 mmol/L (135-145); Total Protein 6.6 g/dL (6.5-8.0)
[2021-06-01] VITALS (14 sets, daily range): BP systolic 115–143; BP diastolic 54–84; PULSE 61–85; RESP 12–19; TEMP 35.6–37.2; O2SAT 97–100
--- NOTE | 2021-06-01 | ECG_ITS ---
Test Reason : PSYCH Blood Pressure : / mmHG Vent. Rate : 177 BPM Atrial Rate : 105 BPM P-R Int : 000 ms QRS Dur : 122 ms QT Int : 174 ms P-R-T Axes : 000 158 -65 degrees QTc Int : 298 ms Suspect limb lead reversal, interpretation assumes no reversal Undetermined rhythm Indeterminate axis Possible Right ventricular hypertrophy Anterolateral infarct , age undetermined Abnormal ECG When compared with ECG of 31-MAY-2021 22:24, Current undetermined rhythm precludes rhythm comparison, needs review Questionable change in QRS duration Anterior infarct is now Present Anterolateral infarct is now Present Referred By: Tay Abdi Electronically Signed By:
[2021-06-01 00:05] LABS: Amphetamine Screen Urine Not Detected (Not Detect); Barbiturates, Urine Not Detected (Not Detect); Benzodiazepines Screen Urine Not Detected (Not Detect); Cannabinoid Screen Urine Not Detected (Not Detect); Cocaine Screen Urine Not Detected (Not Detect); Opiate Screen Urine Not Detected (Not Detect); Phencyclidine Screen Urine Not Detected (Not Detect)
[2021-06-01] MEDS: 0.9 % Sodium Chloride 1,000 ML 999 ML IVCONT (00:26)
--- NOTE | 2021-06-01 00:29 | PC.NURSE ---
Patient's Sodium was 119, provider notified, ordered Ns 1000 ml IV, ED nurse initiated the IV, patient is being observed on 1:1, patient was very calm and cooperative with the process of starting IV line, [facility], spoke with Brenda, notified Sodium level of the patient and plan to admit the patient on the medical floor, will continue to monitor.
[2021-06-01 00:45] LABS: Osmolality Urine 204 mosm/kg (373-1093)
--- NOTE | 2021-06-01 00:52 | PM.IMHP ---
History of Present Illness Date of Service: 06/01/21 Chief Complaint: Chest pain 50-year-old male with a past medical history of hypertension, hyperlipidemia, diabetes, history of hyponatremia, anxiety, depression, cerebellar ataxia, obesity, peripheral vascular disease, seizure disorder, [facility] presented to the hospital today with a chief complaint of chest pain. Most of the history obtained from the patient, patient's sister, ER staff and records; Reportedly patient has an argument at the [facility] and subsequently complained of chest pain and was sent to the ER for further evaluation. At the time of my entry patient reported that his chest pain improved. As per the family in regards patient had similar presentations in the past with chest pain after gets argumentative at the [facility]. Patient denies any fever chills cough. Denies any nausea vomiting diarrhea. Denies any GI or symptoms. Reportedly patient had history of hyponatremia and is supposed to be on fluid restriction. ER course: Per ER team patient EKG was nonischemic, troponin negative; on labs noted to have sodium of 119; patient received 1 L of normal saline in the ER. Admitted to the hospital for further management. Patient asymptomatic. [facility] Medical History Anemia Anxiety Asthma Cerebellar ataxia Depression Essential hypertension Hyperlipidemia LDL goal <100 Hypertension Hyponatremia Lactose intolerance Mental disability Obesity due to excess calories Peripheral vascular disease Proteinuria Seizure disorder Type 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 Vertigo Family History (Updated 06/11/21 @ 15:49 by Hossein Naqvi) Father Myocardial infarction CVD (cardiovascular disease) Diabetes mellitus Mother Diabetes mellitus HTN (hypertension) Brother In good health Sister In good health Surgical History History of orchiectomy Social History Household Members: Other Household Members Other:: from [facility] Housing: Other Housing Other:: [facility] Do you presently have visiting nurse or other home services: Yes Alcohol intake: never Patient Tobacco Use Status: Never used Tobacco e-Cigarette/Vaping Use: Never Used Second Hand Smoke Exposure: No Advance Directives Date on File: 05/23/21 service: No Current occupational status: disabled Meds Allergies Allergy/AdvReac Type Severity Reaction Status Date / Time Sulfa (Sulfonamide Allergy Severe LANDEROS Verified 06/11/21 15:48 Antibiotics) ALICIA REACTION, Landeros Alicia trimethoprim Allergy Mild UNKNOWN Verified 06/11/21 15:48 lactose AdvReac Mild STOMACH Verified 06/11/21 15:48 UPSET Active Medications: Current Medications Generic Name Dose Route Start Last Admin Trade Name Freq PRN Reason Stop Dose Admin Acetaminophen 650 mg 06/01/21 00:44 Acetaminophen 325 Mg Tablet PO Q6H PRN Pain, Mild (Pain Scale 1-3) Acetaminophen 650 mg 06/01/21 00:48 Acetaminophen 325 Mg Tablet PO Q4H PRN fever or pain Amlodipine Besylate 5 mg 06/01/21 09:00 Amlodipine Besylate 5 Mg Tablet PO DAILY [facility] Protocol Aspirin 81 mg 06/01/21 09:00 Aspirin Enteric Coated 81 Mg Tablet.Dr PO DAILY [facility] Atorvastatin Calcium 10 mg 06/01/21 21:00 Atorvastatin Calcium 10 Mg Tablet PO BEDTIME [facility] Cyanocobalamin 1,000 mcg 06/01/21 20:00 Cyanocobalamin (Vitamin B-12) 1,000 Mcg Tablet PO DAILY@2000 [facility] Divalproex Sodium 1,000 mg 06/01/21 09:00 Divalproex Sodium Er 500 Mg Tab.Er.24h PO BID [facility] Fluticasone Propionate 1 spray 06/01/21 09:00 Fluticasone Propionate Nasal 16 Gm [place] NOSTRIL-B BID [facility] Gabapentin 100 mg 06/01/21 09:00 Gabapentin 100 Mg Capsule PO BID [facility] Hydralazine HCl 50 mg 06/01/21 09:00 Hydralazine Hcl 50 Mg Tablet PO BID [facility] Protocol Sodium Chloride 1,000 mls @ 999 mls/hr 05/31/21 23:59 06/01/21 00:26 Ns IVCONT 06/01/21 00:59 999 mls/hr .Q1H1M ONE Administration Insulin Human Lispro 0 unit 06/01/21 07:30 Insulin Lispro 100 Unit/Ml 3 Ml Vial SUBCUT QIDACHS [facility] Protocol Lisinopril 20 mg 06/01/21 09:00 Lisinopril 20 Mg Tablet PO DAILY [facility] Protocol Melatonin 6 mg 06/01/21 00:44 Melatonin 3 Mg Tablet PO BEDTIME PRN Insomnia Non-Formulary Medication 300 mg 06/01/21 09:00 Demeclocycline PO BID [facility] Propranolol HCl 20 mg 06/01/21 09:00 Propranolol Hcl 20 Mg Tablet PO TID [facility] Protocol Risperidone 3 mg 06/01/21 09:00 Risperidone 3 Mg Tablet PO BID [facility] Sodium Chloride 3 ml 06/01/21 08:00 0.9 % Sodium Chloride Flush 3 Ml Syringe IVFLUSH QSHIFT [facility] Vitamin D 25 mcg 06/01/21 09:00 Cholecalciferol (Vitamin D3) 25 Mcg Tablet PO DAILY [facility] Home Medications Medication Instructions Recorded Confirmed Last Taken Type risperidone 3 mg tablet 3 mg PO BID 09/22/20 05/31/21 05/31/21 20:00 History atorvastatin 10 mg tablet 10 mg PO BEDTIME 11/28/20 05/31/21 05/31/21 20:00 History amlodipine 5 mg tablet (Norvasc) 5 mg PO DAILY 01/23/21 05/31/21 05/31/21 08:00 History aspirin 81 mg tablet,delayed 81 mg PO DAILY 01/23/21 05/31/21 05/31/21 08:00 History release (Ecotrin Low Strength) divalproex 500 mg tablet,extended 1,000 mg PO BID 01/23/21 05/31/21 05/31/21 20:00 History release 24 hr (Depakote ER) fluticasone propionate 50 1 spray INTRANASAL BID 03/05/21 05/31/21 Unknown History mcg/actuation nasal spray,suspension dicyclomine 20 mg tablet 20 mg PO QID PRN 04/26/21 05/31/21 Unknown History methylcellulose (laxative) 500 mg 500 mg PO DAILY 04/26/21 05/31/21 05/31/21 08:00 History tablet (Citrucel) gabapentin 100 mg capsule 100 mg PO BID cap 04/27/21 05/31/21 05/31/21 20:00 History lisinopril 20 mg tablet 20 mg PO DAILY 04/27/21 05/31/21 05/31/21 08:00 History cyanocobalamin (vitamin B-12) 1,000 mcg PO DAILY@199905/07/21 05/31/21 05/31/21 20:00 History 1,000 mcg tablet fluticasone 250 mcg-salmeterol 50 1 puff INHALATION BID 05/07/21 05/31/21 05/31/21 20:00 History mcg/dose blistr powdr for inhalation (Advair Diskus) blood sugar diagnostic (DashawnTouch #10 ea 06/11/21 Unknown History Ultra Test) Physical Exam Vital Signs and Narrative: Vital Signs: Last Vital Signs Temp 97.8 F 05/31/21 22:34 Pulse 74 05/31/21 22:34 Resp 18 05/31/21 22:34 BP 147/83 H 05/31/21 22:34 Pulse Ox 99 05/31/21 22:34 Body Mass Index 33.9 Gen: Appears be in no acute distress HEENT: NCAT, Moist mucosa. Pulmonary: Vesicular breath sounds, fair air entry CVS: Normal S1-S2 Abdomen: BS+, Soft, Nontender Extremities: Warm well perfused Neuro: Alert and awake. Results Labs CBC and Chem 7: 06/04/21 04:21 06/05/21 09:14 Labs: Laboratory Results - last 24 hr 05/31/21 05/31/21 05/31/21 22:39 23:08 23:08 MCV 82.1 MCH 29.1 MCHC 35.5 RDW 13.2 Plt Count 99 L D MPV 9.8 Immature Gran % (Auto) 0.5 H Neut % (Auto) 55.2 Lymph % (Auto) 30.1 Whitley % (Auto) 12.0 H Eos % (Auto) 1.9 Baso % (Auto) 0.3 Lymph # (Auto) 1.1 L Whitley # (Auto) 0.5 Eos # (Auto) 0.1 Baso # (Auto) 0.0 Abs Immat Gran (auto) 0.02 Absolute Neuts (auto) 2.1 Absolute Nucleated RBC 0.000 Nucleated RBC % (auto) 0.0 Smear Tech's Comments VERIFIED Anion Gap 11 L Estim Creat Clear Calc 116.3 Estimated GFR > 60 Random Glucose 126 H D Calcium 9.0 Total Bilirubin 0.2 Direct Bilirubin < 0.2 AST 37 D ALT 23 Alkaline Phosphatase 91 Troponin I High Sens Total Protein 6.6 Albumin 3.9 Urine Color Urine Appearance Urine pH Ur Specific [place] Urine Protein Urine Glucose (UA) Urine Ketones Urine Blood Urine Nitrite Ur Leukocyte Esterase Urine RBC Urine WBC Ur Squamous Epith Cells Urine Bacteria Urine Osmolality Urine Opiates Screen Ur Barbiturates Screen Ur Phencyclidine Scrn Ur Amphetamines Screen U Benzodiazepines Scrn Urine Cocaine Screen U Marijuana (THC) Screen COVID-19 (MICHAELA) Negative COVID-19 Clin Com See Note 05/31/21 05/31/21 05/31/21 23:08 23:27 23:27 MCV MCH MCHC RDW Plt Count MPV Immature Gran % (Auto) Neut % (Auto) Lymph % (Auto) Whitley % (Auto) Eos % (Auto) Baso % (Auto) Lymph # (Auto) Whitley # (Auto) Eos # (Auto) Baso # (Auto) Abs Immat Gran (auto) Absolute Neuts (auto) Absolute Nucleated RBC Nucleated RBC % (auto) Smear Tech's Comments Anion Gap Estim Creat Clear Calc Estimated GFR Random Glucose Calcium Total Bilirubin Direct Bilirubin AST ALT Alkaline Phosphatase Troponin I High Sens < 3.5 Total Protein Albumin Urine Color YELLOW Urine Appearance CLEAR Urine pH 6.0 Ur Specific [place] <= 1.005 Urine Protein NEG Urine Glucose (UA) NEG Urine Ketones NEG Urine Blood NEG Urine Nitrite NEG Ur Leukocyte Esterase NEG Urine RBC 0-2 Urine WBC 0 Ur Squamous Epith Cells TRACE Urine Bacteria NONE Urine Osmolality Urine Opiates Screen Not Detected Ur Barbiturates Screen Not Detected Ur Phencyclidine Scrn Not Detected Ur Amphetamines Screen Not Detected U Benzodiazepines Scrn Not Detected Urine Cocaine Screen Not Detected U Marijuana (THC) Screen Not Detected COVID-19 (MICHAELA) COVID-19 [employer]ek Com 05/31/21 23:27 MCV MCH MCHC RDW Plt Count MPV Immature Gran % (Auto) Neut % (Auto) Lymph % (Auto) Whitley % (Auto) Eos % (Auto) Baso % (Auto) Lymph # (Auto) Whitley # (Auto) Eos # (Auto) Baso # (Auto) Abs Immat Gran (auto) Absolute Neuts (auto) Absolute Nucleated RBC Nucleated RBC % (auto) Smear Tech's Comments Anion Gap Estim Creat Clear Calc Estimated GFR Random Glucose Calcium Total Bilirubin Direct Bilirubin AST ALT Alkaline Phosphatase Troponin I High Sens Total Protein Albumin Urine Color Urine Appearance Urine pH Ur Specific [place] Urine Protein Urine Glucose (UA) Urine Ketones Urine Blood Urine Nitrite Ur Leukocyte Esterase Urine RBC Urine WBC Ur Squamous Epith Cells Urine Bacteria Urine Osmolality 204 L Urine Opiates Screen Ur Barbiturates Screen Ur Phencyclidine Scrn Ur Amphetamines Screen U Benzodiazepines Scrn Urine Cocaine Screen U Marijuana (THC) Screen COVID-19 (MICHAELA) COVID-19 Clin Com Assessment and Plan (1) Acute hyponatremia: Status: Acute 50-year-old male with a past medical history of hypertension, hyperlipidemia, diabetes, history of hyponatremia, anxiety, depression, cerebellar ataxia, obesity, peripheral vascular disease, seizure disorder, [facility] resident presented to the hospital today with a chief complaint of chest pain Chest pain: Atypical in nature. Resolved. EKG nonischemic. Initial troponin negative. Second troponin pending. Hyponatremia: Patient asymptomatic. Seizure precautions. Patient had prior history of hyponatremia; question SIADH. Will send urine osmolality and serum osmolality. Nephrology consult. Patient received 1 L of normal saline in the ER. Will repeat levels in the morning. Hypertension/hyperlipidemia: Continue home medications Diabetes: Insulin sliding scale DVT prophylaxis: SCD boots Code status: Full code Spoke to patient's sister Shelia morocho [phone] Quality Stroke Does the patient have a stroke diagnosis?: No VTE Prior VTE?: No VTE Risk Level:: Medical - moderate - high VTE Device Contraindication: N/A - Device Ordered VTE Drug Contraindication: Treatment Not Indicated
[2021-06-01 02:52] LABS: Hemoglobin 10.6 g/dl (14.0-18.0); MANUAL DIFF FLAG SCAN; Monocytes Percent Auto 10.4 % (2-11); PLT CLUMP 1; Red Cell Distribution Width 13.2 % (11.0-16.0); SCAN SMEAR FLAG 1
[2021-06-01 02:53] LABS: Basophils Percent Auto 0.2 % (0-2); Eosinophils Absolute Auto 0.1 X10*3/uL (0.0-0.4); Hematocrit 29.6 % (42-52); Imm Gran Abs Auto 0.02 X10*3/uL (0.00-0.03); Imm Gran Pct Auto 0.4 % (0.0-0.4); Lymphocytes Absolute Auto 1.4 X10*3/uL (1.2-4.9); Mean Corpuscular HGB Conc 35.8 g/dl (31.0-36.0); Mean Corpuscular Hemoglobin 29.4 pg (27.0-33.0); Mean Platelet Volume 10.6 fL (9.4-12.4); Monocytes Absolute Auto 0.6 X10*3/uL (0.1-1.2); Neutrophils Absolute Auto 3.5 X10*3/uL (2.0-8.3); Red Blood Count 3.61 X10*6/uL (4.60-5.80); White Blood Count 5.6 X10*3/uL (4.8-10.8)
[2021-06-01 02:55] LABS: Platelet Count 94 X10*3/uL (160-400)
[2021-06-01 03:04] LABS: Osmolality, Serum 253 mosm/kg (281-305)
[2021-06-01 03:15] LABS: Anion Gap 11 (12-20); Blood Urea Nitrogen 12 mg/dL (9-16); Calcium 8.6 mg/dL (8.4-10.2); Carbon Dioxide 21 mmol/L (22-29); Chloride 91 mmol/L (96-108); Estimated Glomerular Filt Rate > 60; Glucose Random 112 mg/dL (60-115); Potassium 4.4 mmol/L (3.3-5.1); Sodium 119 mmol/L (135-145)
[2021-06-01 05:22] LABS: Magnesium 1.3 mg/dL (1.6-2.6)
--- NOTE | 2021-06-01 06:28 | PC.NURSE ---
Patient did not sleep well, denied distress, administered 1000 ml of Ns, voided 3000 ml, NA and magnesium level low provider aware, patient is admitted to go on med floor, no behavior, gait unsteady and high fall risk, fall precaution is in place, med rec completed/pending provider's approval, patient is on fluid restriction, will continue to monitor.
--- NOTE | 2021-06-01 07:08 | PC.NURSE ---
patient seated in room awaits transfer to med surg floor
[2021-06-01 07:17] LABS: Glucose, Whole Blood 82 mg/dL (60-115)
[2021-06-01 08:35] LABS: Glucose, Whole Blood 91 mg/dL (60-115)
[2021-06-01] MEDS: lisinopriL 20 MG TABLET PO (09:15)
[2021-06-01] MEDS: Aspirin Enteric Coated 81 MG TABLET.DR PO (09:15)
[2021-06-01] MEDS: amLODIPine Besylate 5 MG TABLET PO (09:15)
[2021-06-01] MEDS: Gabapentin 100 MG CAPSULE PO ×2 (09:15→20:21)
[2021-06-01] MEDS: Cholecalciferol (Vitamin D3) 25 MCG TABLET PO (09:15)
[2021-06-01] MEDS: hydrALAZINE HCl 50 MG TABLET PO ×2 (09:16→20:20)
[2021-06-01] MEDS: Propranolol HCL 20 MG TABLET PO ×3 (09:20→20:21)
[2021-06-01] MEDS: Fluticasone Propionate Nasal 16 GM SPRAY 1 SPRAY NOSTRIL-B ×2 (09:20→21:03)
[2021-06-01] MEDS: Magnesium Sulfate/H2O 2 GM/50 ML PIGGYBACK IV (09:20)
[2021-06-01] MEDS: risperiDONE 3 MG TABLET PO ×2 (09:21→20:20)
[2021-06-01 09:42] LABS: Troponin-I High Sensitivity < 3.5 ng/L (<3.5-35.0)
[2021-06-01 09:51] LABS: Anion Gap 11 (12-20); Blood Urea Nitrogen 11 mg/dL (9-16); Calcium 8.7 mg/dL (8.4-10.2); Carbon Dioxide 25 mmol/L (22-29); Chloride 92 mmol/L (96-108); Creatinine Clr Calc Pharmacy 125.3; Estimated Glomerular Filt Rate > 60; Glucose Random 87 mg/dL (60-115); Potassium 4.6 mmol/L (3.3-5.1); Sodium 122 mmol/L (135-145)
[2021-06-01 09:58] LABS: Thyroid Stimulating Hormone 0.98 uIU/mL (0.32-4.0)
[2021-06-01] MEDS: 0.9 % Sodium Chloride Flush 3 ML SYRINGE IVFLUSH ×2 (10:37→15:58)
[2021-06-01] MEDS: Magnesium Sulfate/D5W 1 GM/100 ML PIGGYBACK IV (11:10)
[2021-06-01 11:26] LABS: Glucose, Whole Blood 100 mg/dL (60-115)
--- NOTE | 2021-06-01 13:26 | PC.NURSE ---
dr. worthington at bedside, pt aware of plan of care.
[2021-06-01 13:43] LABS: Potassium Urine Random 5.7 mmol/L
--- NOTE | 2021-06-01 14:45 | HE.PHANOTE ---
Verified with patient's [place] pharmacy that patient is taking Depakte ER 1000mg BID at home.
[2021-06-01 15:51] LABS: Glucose, Whole Blood 136 mg/dL (60-115)
[2021-06-01] MEDS: Divalproex Sodium ER 500 MG TAB.ER.24H 1000 MG PO ×2 (15:53→20:21)
[2021-06-01] MEDS: Acetaminophen 325 MG TABLET 650 MG PO (15:53)
[2021-06-01 16:22] LABS: Anion Gap 13 (12-20); Blood Urea Nitrogen 11 mg/dL (9-16); Calcium 8.8 mg/dL (8.4-10.2); Carbon Dioxide 22 mmol/L (22-29); Chloride 95 mmol/L (96-108); Creatinine Clr Calc Pharmacy 128.7; Estimated Glomerular Filt Rate > 60; Glucose Random 133 mg/dL (60-115); Potassium 4.7 mmol/L (3.3-5.1); Sodium 125 mmol/L (135-145)
--- NOTE | 2021-06-01 17:54 | P.EN_ITS ---
Event Note Date of Service: 06/01/21 Event Note: Patient admitted with chest pain and hyponatremia. Patient is slow in talking ,his [facility] patient: Said that he had some pain in the chest earlier , when inquired further he said this stabbing type pain in the left chest wall which started when he fell in a week or so back in the tub. Chest x-ray does not show any fracture. In addition patient was found to have hyponatremia unclear etiology Labs reviewed troponin x2 negative Hyponatremia improving to 122 this morning and when rechecked in the afternoon patient the hyponatremia went to 125 range Serum Osmolality both her low Physical exam: Cvs: rrr, [id number] , no murmur res: clear to auscultation ,no rhonchii or wheezing abd: no rebound or guarding ,nt, bs present. ext pulses present , no cyanosis neuro: axo3 , moves all extremities Plan: assessment and plan coordinated in H&P note. Hyponatremia: ?unclear if siadh Serum and urine osmolality both low, urine sodium seems 53 on fluid rstriction Monitor BMP q.6 hourly Will add D5w for now since sodium went from 119-125 since admiision Goal of sodium correction is 6-8 mEq 24 hour nephrology eval 2. Chest pain question musculocutaneous origin Troponin x2 negative Will continue to monitor if he has chest pain again will check troponin.
[2021-06-01] MEDS: Dextrose 5 % 1,000 ML 50 ML IVCONT (18:23)
--- NOTE | 2021-06-01 20:19 | PM.EVENT ---
Event Note Date of Service: 06/01/21 Event Note: Pt seen and examieed Full consult dictated Hyponatremia - Depokote use + Increased Free water intake HTN On demeclocyclin - Can change to Urea 15 g BID if available in the facility he lives in Avoid rapid correction D5 W for now and check repeat Na thx dr. Grubbs
[2021-06-01] MEDS: Atorvastatin Calcium 10 MG TABLET PO (20:20)
[2021-06-01] MEDS: Cyanocobalamin (Vitamin B-12) 1,000 MCG TABLET 1000 MCG PO (20:21)
[2021-06-01 20:38] LABS: Glucose, Whole Blood 177 mg/dL (60-115)
[2021-06-01] MEDS: Insulin Lispro 100 UNIT/ML 3 ML VIAL SUBCUT (21:04)
--- NOTE | 2021-06-01 21:27 | CONS_ITS ---
DATE OF SERVICE: REASON FOR CONSULTATION: Consult requested by Dr. Abdi to evaluate and help in management of patient with hyponatremia. HISTORY OF PRESENT ILLNESS: The patient is a 50-year-old anxious male with past medical history of hypertension, hyperlipidemia, type 2 diabetes mellitus, history of hyponatremia, anxiety, depression, cerebellar ataxia, who resides in a detention presented to the hospital complaining of chest pain. The patient's history was mostly obtained by the medical team from the sister who is not available at the present time. He apparently had an argument in the detention and complained of chest pain. He presently is resting in the bed and is complaining of having suicidal ideation. He has had similar presentations in the past. He did not have any fever, chills, or cough. There is no nausea, vomiting, or diarrhea. He gives history of drinking significant amount of free water. He was noted to have low sodium level of 119 and the patient received 1 L of normal saline in the ER. Renal consult has been requested to help with management of his hyponatremia. PAST MEDICAL HISTORY: History of anemia, anxiety, asthma, cerebellar ataxia, depression, hyperlipidemia, hypertension, hyponatremia, lactose intolerant, mental disability, obesity due to calorie excess, peripheral vascular disease, proteinuria, seizure disorder, type 2 diabetes mellitus. FAMILY HISTORY: Father . He had history of CVA and cerebrovascular disease. He also had diabetes. Mother had diabetes and hypertension disease. PAST SURGICAL HISTORY: Include tonsillectomy. PERSONAL AND SOCIAL HISTORY: The patient lives in a detention. Does not drink alcohol. ALLERGIES: INCLUDE ALLERGIES TO SULFA, TRIMETHOPRIM, AND LACTULOSE. OUTSIDE MEDICATIONS: Include demeclocycline 300 mg b.i.d., risperidone, atorvastatin, amlodipine, aspirin, Depakote, fluticasone, dicyclomine, laxatives, furosemide 20 daily, gabapentin, lisinopril, cyanocobalamin, and Advair. PHYSICAL EXAMINATION: GENERAL: The patient is resting in the bed, awake, but anxious, not giving a good history. VITAL SIGNS: Blood pressure was 147/83, pulse 74, afebrile. HEENT: Shows pupils bilaterally and reactive to light. No jugular venous distention is noted. NECK: Supple. Mucosa was moist. There is no scleral icterus or conjunctival congestion. CARDIOVASCULAR SYSTEM: S1, S2 without rub or murmur. RESPIRATORY SYSTEMS: Air entry decreased in the bases. ABDOMEN: Obese, soft. Bowel sounds normal. EXTREMITIES: Showed no edema. There is no peripheral cyanosis or clubbing. NEURO: Essentially nonfocal. LABORATORY DATA: Labs done today. WBC is 5.6, hemoglobin 10.6, hematocrit 29.6, platelets were 94. INR 0.9, PTT 35. Sodium was 125, potassium 4.7, chloride 95, CO2 of 22, BUN 11, creatinine 0.75. Estimated GFR 128. Glucose 133, calcium 8.8, TSH 0.98. Cortisol level is pending. Serum osmolality was 253. Urine studies; yellow urine, clear, specific gravity of , pH less than 0.05. Urine osmolality 204. Urine sodium was 53. IMPRESSION: 1. A 50-year-old male with hyponatremia. The patient has hypo-osmolar hyponatremia and likely neurological symptoms, which is worsen due to hyponatremia. The reason for his hyponatremia includes the use of Depakote, which can cause SIADH. He also takes excess amount of free water, which can worsen his hyponatremia. His thyroid function test is normal. Cortisol level is pending. 2. The patient is already on demeclocycline as an outpatient. 3. Altered mental status, which could be due to hyponatremia. 4. Chest pain, which is atypical. 5. Hypertension. RECOMMENDATIONS: At this juncture, I would recommend replacing the patient on a fluid restriction. As the patient's sodium was corrected rapidly, I have advised medical team to give him D5 water and repeat a sodium level. I recommend keeping his serum sodium anywhere between 123 to 127 over the next 24 hours. I would recommend avoiding correction more than 6 mEq to 8 mEq over 24 hours. The patient is on Depakote, which can cause hyponatremia and he is on demeclocycline. I recommend discontinuation of demeclocycline and starting him on Urea 15 g p.o. b.i.d. starting tomorrow. Long-term, this patient will benefit from fluid restriction, especially if he needs to be on Depakote. Thank you for allowing me to participate in the medical management of the patient. MD CHHAYA Gastelum/RENETTA / [id number]
[2021-06-01 21:59] LABS: Anion Gap 10 (12-20); Blood Urea Nitrogen 13 mg/dL (9-16); Calcium 8.6 mg/dL (8.4-10.2); Carbon Dioxide 25 mmol/L (22-29); Chloride 95 mmol/L (96-108); Estimated Glomerular Filt Rate > 60; Glucose Random 123 mg/dL (60-115); Potassium 4.5 mmol/L (3.3-5.1); Sodium 125 mmol/L (135-145)
[2021-06-01] MEDS: Melatonin 3 MG TABLET 6 MG PO (22:58)
[2021-06-02] VITALS (13 sets, daily range): BP systolic 107–144; BP diastolic 58–76; PULSE 58–70; RESP 16–18; TEMP 36.1–36.8; O2SAT 95–100
[2021-06-02 07:30] LABS: Glucose, Whole Blood 129 mg/dL (60-115)
[2021-06-02] MEDS: amLODIPine Besylate 5 MG TABLET PO (07:51)
[2021-06-02] MEDS: Albuterol/Iprat 2.5/0.5MG 3 ML AMPUL.NEB INHALE (07:53)
[2021-06-02] MEDS: hydrALAZINE HCl 50 MG TABLET PO ×2 (07:53→21:14)
[2021-06-02] MEDS: risperiDONE 3 MG TABLET PO ×2 (07:53→21:16)
[2021-06-02] MEDS: Divalproex Sodium ER 500 MG TAB.ER.24H 1000 MG PO ×2 (07:54→21:16)
[2021-06-02] MEDS: lisinopriL 20 MG TABLET PO (07:55)
[2021-06-02] MEDS: Propranolol HCL 20 MG TABLET PO ×3 (07:57→21:17)
[2021-06-02] MEDS: Cholecalciferol (Vitamin D3) 25 MCG TABLET PO (07:58)
[2021-06-02] MEDS: Aspirin Enteric Coated 81 MG TABLET.DR PO (07:59)
[2021-06-02] MEDS: Gabapentin 100 MG CAPSULE PO ×2 (07:59→21:14)
[2021-06-02] MEDS: Fluticasone Propionate Nasal 16 GM SPRAY 1 SPRAY NOSTRIL-B ×2 (08:00→21:33)
[2021-06-02 08:13] LABS: Anion Gap 11 (12-20); Blood Urea Nitrogen 14 mg/dL (9-16); Calcium 8.3 mg/dL (8.4-10.2); Carbon Dioxide 22 mmol/L (22-29); Chloride 92 mmol/L (96-108); Creatinine Clr Calc Pharmacy 135.9; Estimated Glomerular Filt Rate > 60; Glucose Random 138 mg/dL (60-115); Potassium 4.3 mmol/L (3.3-5.1); Sodium 121 mmol/L (135-145)
[2021-06-02 10:59] LABS: Glucose, Whole Blood 132 mg/dL (60-115)
--- NOTE | 2021-06-02 11:37 | PM.CNNEP ---
Assessment and Plan (1) Acute hyponatremia: Status: Acute 50-year-old male with a past medical history of hypertension, hyperlipidemia, diabetes, history of hyponatremia, anxiety, depression, cerebellar ataxia, obesity, peripheral vascular disease, seizure disorder, residential resident presented to the hospital today with a chief complaint of chest pain Euvolemic HypoNa with H/O hypoNa and normally mainted on demeclocycline ( ?); Need to r/o adrenal insuff and hypothyroidins; he is on several meds that can be assoc with SIADH ( depakote and resperidone) REC: goal is to grad incr SNa by no more than 8 meq per 24 hrs; PO fluid restrciton and may need to add urea and or demeclocyline back; track SNa q 6hrs; track UOP, check TSH and am cortisol levle will follow with team History of Present Illness Reason for Consult Consult date: 06/02/21 Reason for consult: HypoNa Requesting physician: Tay Abdi Chief Complaint Chief complaint: Hyponatremia History of Present Illness Narrative: 50 y/o wM from residential adm AMS and noted SNa 119. Info obtained from EHR as PT unable to provide info. Reviewing recs he has had occ hypoNa ( 2018 SNa was 125) and also hs home meds list demeclocyline which suggests that he has chronic HypoNa and underlying SAIDH which is being manage by anabelleeclo. Apparently recieved some D5W overnight as concern for SNa incr too fast ? 119 on adm and yest 125---this am 121 [address] 53, Uosm 204 Review of Systems Review of Systems Constitutional : No Weight loss, No Fever, No Chills, No Night Sweats, No Fatigue, No Malaise ENT/Mouth : No Hearing loss, No Ear Pain, No Nasal Congestion, No Sinus Pain, No Hoarseness, No sore throat, No Rhinorrhea, No Swallowing Difficulty Eyes: No Eye Pain, No Swelling, No Redness, No Foreign Body, No Discharge, No Vision Changes Cardiovascular : Complaining of right-sided chest pain, No SOB, No Dyspnea on Exertion, No Orthopnea, No Edema, No Palpitations Respiratory : No Cough, No Sputum, No Wheezing, No Smoke Exposure, No Dyspnea Gastrointestinal : No Nausea, No Vomiting, No Diarrhea, No Constipation, No abdominal Pain, No Hematochezia, No Melena Genitourinary : no irregular bleeding, No Dysuria, No Urinary Frequency, No Hematuria, No Urinary Incontinence, No Urgency, No Flank Pain, No Urinary Flow Changes, No Hesitancy Musculoskeletal : No joint pain, No Myalgias, No Joint Swelling Skin : No Skin Lesions, No rash Neuro : No Weakness, No Numbness, No Paresthesias, No Loss of Consciousness, No Dizziness, No Headache Psych : No Anxiety/Panic, No Depression, No SI/HI/AH/VH, No Social Issues, Heme/Lymph: No Bruising, No Bleeding,No Lymphadenopathy Endocrine : No Polyuria, No Polydipsia, No Temperature Intolerance [facility] Past Medical History Medical History Anemia Anxiety Asthma Cerebellar ataxia Depression Essential hypertension Hyperlipidemia LDL goal <100 Hypertension Hyponatremia Lactose intolerance Mental disability Obesity due to excess calories Peripheral vascular disease Proteinuria Seizure disorder Type 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 Vertigo Family History Family History Father Myocardial infarction CVD (cardiovascular disease) Diabetes mellitus Mother Diabetes mellitus HTN (hypertension) Brother In good health Sister In good health Surgical History Surgical History History of orchiectomy Social History Social History Household Members: Other Household Members Other:: from residential Housing: Other Housing Other:: residential Do you presently have visiting nurse or other home services: Yes Alcohol intake: never Patient Tobacco Use Status: Never used Tobacco Second Hand Smoke Exposure: No Use of substances other than those prescribed or required for medical reasons: No Currently Displaying Signs/Symptoms of Drug Intoxication Withdrawal: No Have you been hit, kicked, punched, or otherwise hurt by someone within the past year? If so, by whom?: No Do you feel safe in your current relationship?: No Current Relationship Is there a partner from a previous relationship who is making you feel unsafe now?: No Are you made to feel afraid or neglected: No Advance Directives: Yes Advance Directives on File: Yes Advance Directives Date on File: 05/23/21 Do you have thoughts of harming others: Frequent Do you have a plan to hurt others: No Plan Recently lost weight without trying: Yes How much weight loss: 24-33 pounds Eating poorly because of decreased appetite: Yes Nutrition screen score: 6 Nutrition Risks: Difficulty chewing and Difficulty swallowing Poor oral hygiene: Yes service: No Current occupational status: disabled Meds Allergies Allergy/AdvReac Type Severity Reaction Status Date / Time Sulfa (Sulfonamide Allergy Severe LANDEROS Verified 05/23/21 12:14 Antibiotics) ALICIA REACTION, Landeros Alicia trimethoprim Allergy Mild UNKNOWN Verified 05/23/21 12:14 lactose AdvReac Mild STOMACH Verified 05/23/21 12:14 UPSET Active Medications: Current Medications Generic Name Dose Route Start Last Admin Trade Name Freq PRN Reason Stop Dose Admin Acetaminophen 650 mg 06/01/21 00:44 06/01/21 15:53 Acetaminophen 325 Mg Tablet PO 650 mg Q6H PRN Administration Pain, Mild (Pain Scale 1-3) Acetaminophen 650 mg 06/01/21 00:48 Acetaminophen 325 Mg Tablet PO Q4H PRN fever or pain Albuterol/Ipratropium 3 ml 06/01/21 21:36 06/02/21 07:53 Albuterol/Iprat 2.5/0.5mg 3 Ml Ampul.Neb INHALE 3 ml RQ4H PRN Administration Shortness of Breath/Wheezing Amlodipine Besylate 5 mg 06/01/21 09:00 06/02/21 07:51 Amlodipine Besylate 5 Mg Tablet PO 5 mg DAILY [facility] Administration Protocol Aspirin 81 mg 06/01/21 09:00 06/02/21 07:59 Aspirin Enteric Coated 81 Mg Tablet. PO 81 mg DAILY [facility] Administration Atorvastatin Calcium 10 mg 06/01/21 21:00 06/01/21 20:20 Atorvastatin Calcium 10 Mg Tablet PO 10 mg BEDTIME [facility] Administration Cyanocobalamin 1,000 mcg 06/01/21 20:00 06/01/21 20:21 Cyanocobalamin (Vitamin B-12) 1,000 Mcg Tablet PO 1,000 mcg DAILY@2000 [facility] Administration Divalproex Sodium 1,000 mg 06/01/21 14:45 06/02/21 07:54 Divalproex Sodium Er 500 Mg Tab.Er.24h PO 1,000 mg BID [facility] Administration Fluticasone Propionate 1 spray 06/01/21 09:00 06/02/21 08:00 Fluticasone Propionate Nasal 16 Gm [place] NOSTRIL-B 1 spray BID [facility] Administration Gabapentin 100 mg 06/01/21 09:00 06/02/21 07:59 Gabapentin 100 Mg Capsule PO 100 mg BID [facility] Administration Hydralazine HCl 50 mg 06/01/21 09:00 06/02/21 07:53 Hydralazine Hcl 50 Mg Tablet PO 50 mg BID [facility] Administration Protocol Insulin Human Lispro 0 unit 06/01/21 07:30 06/02/21 11:06 Insulin Lispro 100 Unit/Ml 3 Ml Vial SUBCUT Not Given QIDACHS [facility] Protocol Lisinopril 20 mg 06/01/21 09:00 06/02/21 07:55 Lisinopril 20 Mg Tablet PO 20 mg DAILY [facility] Administration Protocol Melatonin 6 mg 06/01/21 00:44 06/01/21 22:58 Melatonin 3 Mg Tablet PO 6 mg BEDTIME PRN Administration Insomnia Non-Formulary Medication 300 mg 06/01/21 09:00 Demeclocycline PO BID [facility] Propranolol HCl 20 mg 06/01/21 09:00 06/02/21 07:57 Propranolol Hcl 20 Mg Tablet PO 20 mg TID [facility] Administration Protocol Risperidone 3 mg 06/01/21 09:00 06/02/21 07:53 Risperidone 3 Mg Tablet PO 3 mg BID [facility] Administration Sodium Chloride 3 ml 06/01/21 08:00 06/02/21 08:01 0.9 % Sodium Chloride Flush 3 Ml Syringe IVFLUSH Not Given QSHIFT [facility] Vitamin D 25 mcg 06/01/21 09:00 06/02/21 07:58 Cholecalciferol (Vitamin D3) 25 Mcg Tablet PO 25 mcg DAILY [facility] Administration Home Medications Medication Instructions Recorded Confirmed Last Taken Type demeclocycline 300 mg PO BID 09/04/20 05/31/21 05/31/21 20:00 History risperidone 3 mg tablet 3 mg PO BID 09/22/20 05/31/21 05/31/21 20:00 History atorvastatin 10 mg PO BEDTIME 11/28/20 05/31/21 05/31/21 20:00 History amlodipine [Norvasc] 5 mg PO DAILY 01/23/21 05/31/21 05/31/21 08:00 History aspirin [Ecotrin Low Strength] 81 mg PO DAILY 01/23/21 05/31/21 05/31/21 08:00 History divalproex [Depakote ER] 1,000 mg PO BID 01/23/21 05/31/21 05/31/21 20:00 History fluticasone propionate 1 spray INTRANASAL BID 03/05/21 05/31/21 Unknown History dicyclomine 20 mg PO QID PRN 04/26/21 05/31/21 Unknown History methylcellulose (laxative) 500 mg PO DAILY 04/26/21 05/31/21 05/31/21 08:00 History [Citrucel] furosemide 20 mg tablet 20 mg PO DAILY 04/27/21 05/31/21 05/31/21 08:00 History gabapentin 100 mg capsule 100 mg PO BID cap 04/27/21 05/31/21 05/31/21 20:00 History lisinopril 20 mg tablet 20 mg PO DAILY 04/27/21 05/31/21 05/31/21 08:00 History cyanocobalamin (vitamin B-12) 1,000 mcg PO DAILY@199905/07/21 05/31/21 05/31/21 20:00 History fluticasone propion-salmeterol 1 puff INHALATION BID 05/07/21 05/31/21 05/31/21 20:00 History [Advair Diskus] Physical Exam Vital Signs: Last Vital Signs Temp 98.2 F 06/02/21 07:50 Pulse 62 06/02/21 07:57 Resp 16 06/02/21 07:50 BP 128/76 06/02/21 07:57 Pulse Ox 97 06/02/21 07:50 Body Mass Index 33.9 Results Lab Results Result Diagrams: 06/01/21 02:39 06/02/21 07:12 Lab results: Chemistry 05/31/21 06/01/21 06/01/21 23:08 02:39 08:50 Sodium 119 L* 119 L* 122 L Potassium 4.3 4.4 4.6 Carbon Dioxide 25 21 L 25 BUN 12 12 11 Creatinine 0.83 0.76 0.77 Calcium 9.0 8.6 8.7 06/01/21 06/01/21 06/02/21 15:49 21:34 07:12 Sodium 125 L 125 L 121 L Potassium 4.7 4.5 4.3 Carbon Dioxide 22 25 22 BUN 11 13 14 Creatinine 0.75 0.76 0.71 Calcium 8.8 8.6 8.3 L Hematology 05/31/21 06/01/21 23:08 02:39 WBC 3.8 L 5.6 Hgb 10.9 L 10.6 L Plt Count 99 L D 94 L Urinalysis 05/31/21 23:27 Urine Color YELLOW Urine Appearance CLEAR Urine pH 6.0 Ur Specific [place] <= 1.005 Urine Protein NEG Urine Glucose (UA) NEG Urine Ketones NEG Urine Blood NEG Urine Nitrite NEG Ur Leukocyte Esterase NEG Urine RBC 0-2 Urine WBC 0 Ur Squamous Epith Cells TRACE Urine Studies 05/31/21 23:27 Urine Osmolality 204 L Procedures Date of Service Date of Service: 06/02/21
--- NOTE | 2021-06-02 12:43 | HO.PM.IMPN ---
Subjective Subjective Date of Service: 06/07/21 Interval History: hyponatremia Review of Systems Patient admitted for hyponatremia-denies any new complaint , No cough or phlegm or shortness breath or dizziness. No fever chills Has some soreness in the chest area reproducible. Physical Exam Vital Signs: Vital Signs: Last Vital Signs Temp 97 F 06/02/21 11:35 Pulse 60 06/02/21 11:35 Resp 16 06/02/21 11:35 BP 119/58 L 06/02/21 11:35 Pulse Ox 100 06/02/21 11:35 Body Mass Index 33.9 Physical exam: Constitutional: Not in acute distress. Cvs: rrr, [id number] , no murmur res: clear to auscultation ,no rhonchii or wheezing abd: no rebound or guarding ,nt, bs present. ext pulses present , no cyanosis neuro: axo3 , nonfocal. Objective Data Current Medications Generic Name Dose Route Start Last Admin Trade Name Freq PRN Reason Stop Dose Admin Acetaminophen 650 mg 06/01/21 00:44 06/01/21 15:53 Acetaminophen 325 Mg Tablet PO 650 mg Q6H PRN Administration Pain, Mild (Pain Scale 1-3) Acetaminophen 650 mg 06/01/21 00:48 Acetaminophen 325 Mg Tablet PO Q4H PRN fever or pain Albuterol/Ipratropium 3 ml 06/01/21 21:36 06/02/21 07:53 Albuterol/Iprat 2.5/0.5mg 3 Ml Ampul.Neb INHALE 3 ml RQ4H PRN Administration Shortness of Breath/Wheezing Amlodipine Besylate 5 mg 06/01/21 09:00 06/02/21 07:51 Amlodipine Besylate 5 Mg Tablet PO 5 mg DAILY [facility] Administration Protocol Aspirin 81 mg 06/01/21 09:00 06/02/21 07:59 Aspirin Enteric Coated 81 Mg Tablet. PO 81 mg DAILY PIL[facility] Administration Atorvastatin Calcium 10 mg 06/01/21 21:00 06/01/21 20:20 Atorvastatin Calcium 10 Mg Tablet PO 10 mg BEDTIME [facility] Administration Cyanocobalamin 1,000 mcg 06/01/21 20:00 06/01/21 20:21 Cyanocobalamin (Vitamin B-12) 1,000 Mcg Tablet PO 1,000 mcg DAILY@2000 [facility] Administration Divalproex Sodium 1,000 mg 06/01/21 14:45 06/02/21 07:54 Divalproex Sodium Er 500 Mg Tab.Er.24h PO 1,000 mg BID [facility] Administration Fluticasone Propionate 1 spray 06/01/21 09:00 06/02/21 08:00 Fluticasone Propionate Nasal 16 Gm [place] NOSTRIL-B 1 spray BID [facility] Administration Gabapentin 100 mg 06/01/21 09:00 06/02/21 07:59 Gabapentin 100 Mg Capsule PO 100 mg BID [facility] Administration Hydralazine HCl 50 mg 06/01/21 09:00 06/02/21 07:53 Hydralazine Hcl 50 Mg Tablet PO 50 mg BID [facility] Administration Protocol Insulin Human Lispro 0 unit 06/01/21 07:30 06/02/21 11:06 Insulin Lispro 100 Unit/Ml 3 Ml Vial SUBCUT Not Given QIDACHS [facility] Protocol Lisinopril 20 mg 06/01/21 09:00 06/02/21 07:55 Lisinopril 20 Mg Tablet PO 20 mg DAILY [facility] Administration Protocol Melatonin 6 mg 06/01/21 00:44 06/01/21 22:58 Melatonin 3 Mg Tablet PO 6 mg BEDTIME PRN Administration Insomnia Non-Formulary Medication 300 mg 06/01/21 09:00 Demeclocycline PO BID [facility] Propranolol HCl 20 mg 06/01/21 09:00 06/02/21 07:57 Propranolol Hcl 20 Mg Tablet PO 20 mg TID [facility] Administration Protocol Risperidone 3 mg 06/01/21 09:00 06/02/21 07:53 Risperidone 3 Mg Tablet PO 3 mg BID [facility] Administration Sodium Chloride 3 ml 06/01/21 08:00 06/02/21 08:01 0.9 % Sodium Chloride Flush 3 Ml Syringe IVFLUSH Not Given QSHIFT [facility] Vitamin D 25 mcg 06/01/21 09:00 06/02/21 07:58 Cholecalciferol (Vitamin D3) 25 Mcg Tablet PO 25 mcg DAILY [facility] Administration Labs CBC & Chem 7: 06/04/21 04:21 06/05/21 09:14 Labs: Laboratory Results - last 24 hr 06/01/21 06/01/21 06/01/21 08:50 13:17 15:48 Sodium Potassium Chloride Carbon Dioxide Anion Gap BUN Creatinine Estim Creat Clear Calc Estimated GFR POC Glucose 136 H Random Glucose Calcium Cortisol 11.7 Ur Random Sodium 53.0 Ur Random Potassium 5.7 Ur Random Chloride 48.0 06/01/21 06/01/21 06/01/21 15:49 20:32 21:34 Sodium 125 L 125 L Potassium 4.7 4.5 Chloride 95 L 95 L Carbon Dioxide 22 25 Anion Gap 13 10 L BUN 11 13 Creatinine 0.75 0.76 Estim Creat Clear Calc 128.7 127.0 Estimated GFR > 60 > 60 POC Glucose 177 H Random Glucose 133 H D 123 H Calcium 8.8 8.6 Cortisol Ur Random Sodium Ur Random Potassium Ur Random Chloride 06/02/21 06/02/21 06/02/21 07:12 07:20 10:53 Sodium 121 L Potassium 4.3 Chloride 92 L Carbon Dioxide 22 Anion Gap 11 L BUN 14 Creatinine 0.71 Estim Creat Clear Calc 135.9 Estimated GFR > 60 POC Glucose 129 H 132 H Random Glucose 138 H Calcium 8.3 L Cortisol Ur Random Sodium Ur Random Potassium Ur Random Chloride Assessment and Plan (1) Acute hyponatremia: Status: Acute Assessment and Plan: 50-year-old male with a past medical history of hypertension, hyperlipidemia, diabetes, history of hyponatremia, anxiety, depression, cerebellar ataxia, obesity, peripheral vascular disease, seizure disorder, [facility] resident presented to the hospital today with a chief complaint of chest pain 1.Chest pain: Atypical in nature. Resolved. EKG nonischemic. patient said he fell in tub 1-2 weeks back and soar since then. trops x2 neg if develops chest pain -then will reeval. 2.Hyponatremia: thought to be related to fever water intake, also may be psych medication Depakote might be contributing Patient is also on the demeclocycline Patient asymptomatic. Seizure precautions. Urine and serum osmolality both are low urine sodium is 53 Discussed with Nephro will continue fluid restrictions, DC D5W, repeat sodium is 121 we will check next level in every 6 hours, patient may need urea if does not improve. Goal of correction of sodium is 6-8 mEq in 24 hour. 3.Hypertension/hyperlipidemia: Continue hydralazine, lisinopril, amlodipine. Continue atorvastatin. 4.Diabetes: Insulin sliding scale. 5. seizure dis: continue depkote 6.asthma:continue albuteriol nebs prn 7.depression /anxiety:? on resperidone DVT prophylaxis: Lovenox Patient should be out of bed to chair. Above management discussed with the staff. Quality Stroke Does the patient have a stroke diagnosis?: No VTE Prior VTE?: No VTE Risk Level:: Medical - moderate - high VTE Device Contraindication: N/A - Device Ordered VTE Drug Contraindication: Treatment Not Indicated
[2021-06-02 12:44] LABS: Anion Gap 13 (12-20); Carbon Dioxide 22 mmol/L (22-29); Chloride 91 mmol/L (96-108); Potassium 4.5 mmol/L (3.3-5.1); Sodium 121 mmol/L (135-145)
[2021-06-02] MEDS: 0.9 % Sodium Chloride Flush 3 ML SYRINGE IVFLUSH ×2 (15:09→21:24)
[2021-06-02 16:09] LABS: Glucose, Whole Blood 134 mg/dL (60-115)
--- NOTE | 2021-06-02 16:18 | MHC.CM.PN ---
Addendum entered by Yahaira Christianson 06/02/21 16:23: ADDITIONAL INFO: PT USES A WALKER AT [facility]. PCP IS SUSSY BARTHOLOMEW. 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 WOODROW WAS CONTACTED VIA T/C ([phone]) AND THE PTS MEDICARE RIGHTS WERE DELIVERED. WOODROW REPORTS SHE WILL TRY TO VISIT THE PT TOMORROW AND WILL ASK TO SPEAK TO THE CM WHEN SHE ARRIVES. CM WILL ALSO ATTEMPT TO CONTACT SENIOR LIVING STAFF AGAIN TOMORROW THE CALL WENT TO TODAY. CURRENT DC PLAN IS RETURN TO SENIOR LIVING VIA STAFF VS STR VIA BLS
[2021-06-02] MEDS: Enoxaparin Sodium 40 MG/0.4 ML SYRINGE SUBCUT (17:52)
[2021-06-02 19:09] LABS: Anion Gap 13 (12-20); Blood Urea Nitrogen 16 mg/dL (9-16); Calcium 8.4 mg/dL (8.4-10.2); Carbon Dioxide 24 mmol/L (22-29); Chloride 91 mmol/L (96-108); Creatinine Clr Calc Pharmacy 116.3; Estimated Glomerular Filt Rate > 60; Glucose Random 128 mg/dL (60-115); Potassium 4.9 mmol/L (3.3-5.1); Sodium 123 mmol/L (135-145)
[2021-06-02 20:07] LABS: Glucose, Whole Blood 114 mg/dL (60-115)
[2021-06-02] MEDS: Cyanocobalamin (Vitamin B-12) 1,000 MCG TABLET 1000 MCG PO (21:14)
[2021-06-02] MEDS: Atorvastatin Calcium 10 MG TABLET PO (21:16)
[2021-06-03] VITALS (10 sets, daily range): BP systolic 94–127; BP diastolic 51–64; PULSE 52–98; RESP 12–20; TEMP 36.2–37.1; O2SAT 94–100
[2021-06-03] MEDS: Melatonin 3 MG TABLET 6 MG PO (00:12)
[2021-06-03 01:48] LABS: Anion Gap 12 (12-20); Blood Urea Nitrogen 20 mg/dL (9-16); Calcium 8.1 mg/dL (8.4-10.2); Carbon Dioxide 21 mmol/L (22-29); Chloride 94 mmol/L (96-108); Creatinine Clr Calc Pharmacy 117.7; Estimated Glomerular Filt Rate > 60; Glucose Random 116 mg/dL (60-115); Sodium 122 mmol/L (135-145)
[2021-06-03 08:03] LABS: Glucose, Whole Blood 74 mg/dL (60-115)
[2021-06-03 08:29] LABS: TSH reflex Free T4 1.82 uIU/mL (0.32-4.0)
[2021-06-03] MEDS: Aspirin Enteric Coated 81 MG TABLET.DR PO (09:33)
[2021-06-03] MEDS: Gabapentin 100 MG CAPSULE PO ×2 (09:34→21:13)
[2021-06-03] MEDS: Cholecalciferol (Vitamin D3) 25 MCG TABLET PO (09:34)
[2021-06-03] MEDS: Divalproex Sodium ER 500 MG TAB.ER.24H 1000 MG PO ×2 (09:35→21:13)
[2021-06-03] MEDS: risperiDONE 3 MG TABLET PO ×2 (09:35→21:13)
[2021-06-03] MEDS: 0.9 % Sodium Chloride Flush 3 ML SYRINGE IVFLUSH ×3 (09:38→21:13)
[2021-06-03] MEDS: Fluticasone Propionate Nasal 16 GM SPRAY 1 SPRAY NOSTRIL-B (09:39)
--- NOTE | 2021-06-03 10:33 | P.PNNP_ITS ---
Assessment & Plan Assessment and plan (1) Acute hyponatremia: Status: Acute Assessment and Plan: 50-year-old male with a past medical history of hypertension, hyperlipidemia, diabetes, history of hyponatremia, anxiety, depression, cerebellar ataxia, ob esity, peripheral vascular disease, seizure disorder, [facility] resident presented to the hospital today with a chief complaint of chest pain Euvolemic HypoNa with H/O hypoNa and normally mainted on demeclocycline ( ?); Need to r/o adrenal insuff and hypothyroidins; he is on several meds that can be assoc with SIADH ( depakote and resperidone) REC: goal is to grad incr SNa by no more than 8 meq per 24 hrs; PO fluid restrciton and may need to add urea and or demeclocyline back---l3ts see what epeat Sna at noon time as RN states UOP has started to pickle sorter--500 uop over past 3 hrs'; track SNa q 6hrs; track UOP, check TSH and am cortisol level ( pending) will follow with team Time Spent With Patient Time: Total time spent is greater than 50% in coordination of care (as documented) at patient's floor/unit and/or counseling patient: Subjective Subjective Date of Service: 06/03/21 Interval history: Seen and examined. Events noted Physical Exam Vital Signs: Vital Signs: Last Vital Signs Temp 98.3 F 06/03/21 07:43 Pulse 70 06/03/21 09:42 Resp 18 06/03/21 07:43 BP 105/56 L 06/03/21 09:42 Pulse Ox 96 06/03/21 07:43 Body Mass Index 33.9 Objective Data Labs CBC & Chem 7: 06/01/21 02:39 06/03/21 01:15 Labs: Laboratory Results - last 24 hr 06/02/21 06/02/21 06/02/21 10:53 12:02 16:04 Sodium 121 L Potassium 4.5 Chloride 91 L Carbon Dioxide 22 Anion Gap 13 BUN Creatinine Estim Creat Clear Calc Estimated GFR POC Glucose 132 H 134 H Random Glucose Calcium TSH 06/02/21 06/02/21 06/03/21 18:18 19:59 01:15 Sodium 123 L 122 L Potassium 4.9 5.0 Chloride 91 L 94 L Carbon Dioxide 24 21 L Anion Gap 13 12 BUN 16 20 H Creatinine 0.83 0.82 Estim Creat Clear Calc 116.3 117.7 Estimated GFR > 60 > 60 POC Glucose 114 Random Glucose 128 H 116 H Calcium 8.4 8.1 L TSH 06/03/21 06/03/21 07:16 07:59 Sodium Potassium Chloride Carbon Dioxide Anion Gap BUN Creatinine Estim Creat Clear Calc Estimated GFR POC Glucose 74 Random Glucose Calcium TSH 1.82 Procedures Date of Service Date of Service: 06/03/21
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
[2021-06-03] MEDS: Insulin Lispro 100 UNIT/ML 3 ML VIAL SUBCUT ×3 (11:15→21:13)
[2021-06-03 11:18] LABS: Glucose, Whole Blood 189 mg/dL (60-115)
[2021-06-03 13:05] LABS: Anion Gap 11 (12-20); Blood Urea Nitrogen 20 mg/dL (9-16); Calcium 8.3 mg/dL (8.4-10.2); Carbon Dioxide 23 mmol/L (22-29); Chloride 95 mmol/L (96-108); Creatinine Clr Calc Pharmacy 112.2; Estimated Glomerular Filt Rate > 60; Glucose Random 144 mg/dL (60-115); Potassium 4.3 mmol/L (3.3-5.1); Sodium 125 mmol/L (135-145)
[2021-06-03 16:02] LABS: Glucose, Whole Blood 151 mg/dL (60-115)
[2021-06-03 20:23] LABS: Glucose, Whole Blood 167 mg/dL (60-115)
[2021-06-03] MEDS: Atorvastatin Calcium 10 MG TABLET PO (21:13)
[2021-06-03] MEDS: Cyanocobalamin (Vitamin B-12) 1,000 MCG TABLET 1000 MCG PO (21:13)
[2021-06-04] VITALS (7 sets, daily range): BP systolic 97–132; BP diastolic 54–71; PULSE 79–98; RESP 15–20; TEMP 36.1–36.8; O2SAT 96–100; BMI 33.9
[2021-06-04 05:28] LABS: PLT CLUMP 1; Red Blood Count 3.04 X10*6/uL (4.60-5.80)
[2021-06-04 05:30] LABS: Hematocrit 25.7 % (42-52); Hemoglobin 8.9 g/dl (14.0-18.0); Mean Corpuscular HGB Conc 34.6 g/dl (31.0-36.0); Mean Corpuscular Hemoglobin 29.3 pg (27.0-33.0); Mean Corpuscular Volume 84.5 fL (80-98); Mean Platelet Volume 11.8 fL (9.4-12.4); White Blood Count 5.9 X10*3/uL (4.8-10.8)
[2021-06-04 05:42] LABS: Platelet Count 85 X10*3/uL (160-400)
[2021-06-04 06:05] LABS: Anion Gap 10 (12-20); Blood Urea Nitrogen 30 mg/dL (9-16); Calcium 8.1 mg/dL (8.4-10.2); Carbon Dioxide 24 mmol/L (22-29); Chloride 95 mmol/L (96-108); Creatinine Clr Calc Pharmacy 91.9; Estimated Glomerular Filt Rate > 60; Glucose Random 106 mg/dL (60-115); Potassium 4.7 mmol/L (3.3-5.1); Sodium 124 mmol/L (135-145)
[2021-06-04 07:18] LABS: Glucose, Whole Blood 112 mg/dL (60-115)
[2021-06-04] MEDS: Divalproex Sodium ER 500 MG TAB.ER.24H 1000 MG PO ×2 (07:59→21:23)
[2021-06-04] MEDS: Cholecalciferol (Vitamin D3) 25 MCG TABLET PO (08:00)
[2021-06-04] MEDS: 0.9 % Sodium Chloride Flush 3 ML SYRINGE IVFLUSH ×3 (08:00→21:24)
[2021-06-04] MEDS: Aspirin Enteric Coated 81 MG TABLET.DR PO (08:00)
[2021-06-04] MEDS: risperiDONE 3 MG TABLET PO ×2 (08:00→21:23)
[2021-06-04] MEDS: Gabapentin 100 MG CAPSULE PO ×2 (08:00→21:24)
[2021-06-04] MEDS: Fluticasone Propionate Nasal 16 GM SPRAY 1 SPRAY NOSTRIL-B ×2 (08:02→21:24)
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
[2021-06-04 11:18] LABS: Glucose, Whole Blood 146 mg/dL (60-115)
--- NOTE | 2021-06-04 11:34 | MHC.CLN ---
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 WT REMAINS OBESE FOR HT, HOWEVER WT LOSS WAS UNINTENTIONAL WEIGHT HX FOLLOWS: 215# (04/26/20) 201# (01/24/20) 235# (10/20/2020) TRIGGERS FOR 11% SIGNIFICANT LOSS X 6 MONTHS 260# (10/2019) DIET RX: 2200DM 1200CC FLUID RESTRICTION -APPROPRIATE DIET WILL PROVIDE SUFFICIENT KCALS TO MAINTAIN WEIGHT PO INTAKE 100% SINCE 06/02 CONTINUE TO MONITOR PO INTAKE CLOSELY SEE ALSO CLINICAL NUTRITION ASSESSMENT
--- NOTE | 2021-06-04 11:42 | MHC.CM.PN ---
per rounds no anticipated dc date at [facility] time cm will continue to follow
[2021-06-04 16:44] LABS: Glucose, Whole Blood 108 mg/dL (60-115)
[2021-06-04] MEDS: Albuterol/Iprat 2.5/0.5MG 3 ML AMPUL.NEB INHALE (18:20)
[2021-06-04 20:20] LABS: Glucose, Whole Blood 140 mg/dL (60-115)
[2021-06-04] MEDS: Cyanocobalamin (Vitamin B-12) 1,000 MCG TABLET 1000 MCG PO (21:23)
[2021-06-04] MEDS: Atorvastatin Calcium 10 MG TABLET PO (21:23)
[2021-06-05 03:48] VITALS: BP 118/58; PULSE 81; RESP 18; TEMP 36.2; O2SAT 97
[2021-06-05 07:15] LABS: Glucose, Whole Blood 74 mg/dL (60-115)
[2021-06-05 07:35] VITALS: BP 121/69; PULSE 71; RESP 20; TEMP 36.4; O2SAT 97
[2021-06-05] MEDS: Cholecalciferol (Vitamin D3) 25 MCG TABLET PO (07:38)
[2021-06-05] MEDS: Aspirin Enteric Coated 81 MG TABLET.DR PO (07:38)
[2021-06-05] MEDS: risperiDONE 3 MG TABLET PO (07:38)
[2021-06-05] MEDS: 0.9 % Sodium Chloride Flush 3 ML SYRINGE IVFLUSH (07:38)
[2021-06-05] MEDS: Fluticasone Propionate Nasal 16 GM SPRAY 1 SPRAY NOSTRIL-B (07:38)
[2021-06-05] MEDS: Gabapentin 100 MG CAPSULE PO (07:38)
[2021-06-05] MEDS: Divalproex Sodium ER 500 MG TAB.ER.24H 1000 MG PO (07:38)
--- NOTE | 2021-06-05 09:34 | PM.PNNEP ---
Subjective Subjective Date of Service: 06/05/21 Interval history: seen and examined this AM Na level is 130 Physical Exam Vital Signs: Vital Signs: Last Vital Signs Temp 97.5 F 06/05/21 07:35 Pulse 71 06/05/21 07:35 Resp 20 06/05/21 07:35 BP 121/69 06/05/21 07:35 Pulse Ox 97 06/05/21 07:35 Body Mass Index 33.9 Other: General - no acute distress, appears comfortable Cardiovascular - regular rate and rhythm, S1-S2 Lungs - normal respiratory effort, clear to auscultation bilaterally, no wheezing Abdomen - soft, nontender, no rebound or guarding Extremities - no edema bilaterally Neuro - awake and alert, no focal deficits psych - endorses auditory hallucinations Objective Data Labs CBC & Chem 7: 06/04/21 04:21 06/05/21 09:14 Labs: Laboratory Results - last 24 hr 06/03/21 06/04/21 06/04/21 07:16 11:07 16:41 POC Glucose 146 H 108 Cortisol 7.0 06/04/21 06/05/21 20:17 07:11 POC Glucose 140 H 74 Cortisol Procedures Date of Service Date of Service: 06/05/21 Assessment & Plan Time Spent With Patient Time: 50-year-old male with a past medical history of hypertension, hyperlipidemia, diabetes, history of hyponatremia, anxiety, depression, cerebellar ataxia, obesity, peripheral vascular disease, seizure disorder, skilled nursing resident presented to the hospital today with a chief complaint of chest pain Euvolemic HypoNa with H/O hypoNa and normally mainted on demeclocycline We r/o adrenal insuff and hypothyroidins; He is on several meds that can be assoc with [facility]AD[facility] ( depakote and resperidone) REC: PO fluid restrciton Started urea D/c'd demeclocyline Out pt - If S na < 135 use Urea 15 G BID as pt going to continue Depakote If Serum Na > or/= 135 use 15 grams daily will follow with team Progress Note: Quality Stroke Does the patient have a stroke diagnosis?: No
[2021-06-05 09:46] LABS: Anion Gap 10 (12-20); Blood Urea Nitrogen 19 mg/dL (9-16); Calcium 8.3 mg/dL (8.4-10.2); Carbon Dioxide 26 mmol/L (22-29); Chloride 99 mmol/L (96-108); Creatinine Clr Calc Pharmacy 114.9; Estimated Glomerular Filt Rate > 60; Glucose Random 135 mg/dL (60-115); Potassium 4.9 mmol/L (3.3-5.1); Sodium 130 mmol/L (135-145)
[2021-06-05] MEDS: Urea 15 GM POWDER 30 GM PO (10:05)
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
[2021-06-05 10:48] VITALS: BP 140/72; PULSE 86; RESP 18; TEMP 36.8; O2SAT 99
[2021-06-05 11:02] LABS: Glucose, Whole Blood 108 mg/dL (60-115)
[2021-06-05 11:17] VITALS: BP 140/72; PULSE 86; O2SAT 99
--- NOTE | 2021-06-05 12:47 | MHC.CARE ---
CARE Team responded to consult request to meet with this patient who expressed suicidal ideation. He is well known to the team from previous ED visits when he presents for a medical issue and when asked if he is suicidal he would say yes. At baseline patient tends to be attention seeking, especially being taken care of by medical providers and has stated previously that he would like to be in a fpc. There is no history of attempts, gestures or inpatient hospitalizations. Patient was alert and oriented, pleasant. He denied wanting to end his life at this time has heard voices for many years and has not followed commands. He is well connected with services and lives in a supportive correction that does not encourage an inpatient psychiatric admission. CARE Team recommendation is that patient continue to current providers, does not need a crisis evaluation. Communicated with patient?s nurse, marble supervisor and
--- NOTE | 2021-06-05 12:51 | MHC.CM.PN ---
spoke with pt today about [facility]urning to [facility] for pt vs rehab he is agreeable to returning to [facility] referal made
--- NOTE | 2021-06-05 14:07 | PC.NURSE ---
Skin assessment completed today. Patient has bilateral old bruising/scars to lower extremities. No other skin issues noted. Abdominal skin folds dry. No open skin areas noted on admission.
--- NOTE | 2021-06-05 14:23 | PC.NURSE ---
Patient visited by care team, sitter discontinued. Telesitter still in place. Patient states I'm going to punch myself in the head unless someone sits in here with me . Multiple calls from [facility] stating patient is punching himself in the head. Nursing structural mill supervisor and hospitalist aware.
--- NOTE | 2021-06-05 14:31 | PM.DS ---
DS: Providers Provider Date of Service: 06/05/21 Date of admission: 06/01/21 00:45 Primary care physician: Unknown Physician Consults: 05/31/21 23:26 Consult to Care Team Stat Comment: Reason for consultation: si 06/01/21 07:28 Consult to Nephrology Routine Consulting Provider: Nayan Gautam Reason for consultation: hyponatremia Has provider been notified: No 06/05/21 10:18 Consult to Care Team Routine Comment: Reason for consultation: having auditory hallucinations DS: Diagnosis Discharge Diagnosis (1) Acute hyponatremia: Status: Acute (2) Musculoskeletal chest pain: Status: Acute (3) Auditory hallucinations: Status: Acute DS: Medications Discharge Medications Home Medications: Home Medications Medication Instructions Recorded Confirmed risperidone 3 mg tablet 3 mg PO BID 09/22/20 05/31/21 atorvastatin 10 mg PO BEDTIME 11/28/20 05/31/21 amlodipine [Norvasc] 5 mg PO DAILY 01/23/21 05/31/21 aspirin [Ecotrin Low Strength] 81 mg PO DAILY 01/23/21 05/31/21 divalproex [Depakote ER] 1,000 mg PO BID 01/23/21 05/31/21 fluticasone propionate 1 spray INTRANASAL BID 03/05/21 05/31/21 Citrucel 500 mg PO DAILY 04/26/21 05/31/21 dicyclomine 20 mg PO QID PRN 04/26/21 05/31/21 gabapentin 100 mg capsule 100 mg PO BID cap 04/27/21 05/31/21 lisinopril 20 mg tablet 20 mg PO DAILY 04/27/21 05/31/21 cyanocobalamin (vitamin B-12) 1,000 mcg PO DAILY@199905/07/21 05/31/21 fluticasone propion-salmeterol 1 puff INHALATION BID 05/07/21 05/31/21 [Advair Diskus] Previous Rx's Medication Instructions Recorded dexlansoprazole 60 mg 60 mg PO DAILY #28 cap 11/30/20 capsule,biphase delayed release cholecalciferol (vitamin D3) 25 25 mcg PO DAILY #28 tab 12/19/20 mcg (1,000 unit) tablet hydralazine 50 mg tablet 50 mg PO BID 90 Days #180 tab 03/12/21 acetaminophen 325 mg tablet 650 mg PO Q4H PRN 90 Days #180 tab 04/27/21 metformin 500 mg tablet 500 mg PO BID #60 tab 04/27/21 propranolol 20 mg tablet 20 mg PO TID 90 Days #270 tab 05/18/21 furosemide 20 mg tablet 20 mg PO QAM #28 tab 06/05/21 urea 1 packet PO BID #60 ea 06/05/21 DS: Summary Hospital Course Hospital Course: Discharge diagnosis 1. acute on chronic hyponatremia 2. musculoskeletal chest pain 3. Auditory hallucinations 4. hypertension 5. Thrombocytopenia patient presented to the hospital for complaints of chest pain. He was ruled out for ACS with multiple negative high sensitivity troponins. His chest pain was deemed musculoskeletal in nature. Upon his lab work showed a serum sodium of 119 and for this reason he was admitted to the hospital. Patient had serial the chemistries to evaluate his changes in sodium levels. He was evaluated by Nephrology to help guide management. His hyponatremia was deemed multifactorial including SIADH from his multiple meds that may causes, particularly Depakote. He was treated with fluid restriction and subsequently urea powder 15 mg twice daily was added. Nephrology recommended discontinuation of his baseline to me close eye clean and instead to use urea powder. Nephrology is instructions in regards to urea powder are as follows: continue urea 15 g twice daily, check his chemistries early next week and once his serum sodium is around 135 change urea to 15 g daily. He should also maintain a 1.5-1.8 L fluid restriction daily. Patient's hospital course was further complicated by auditory hallucinations which were chronic for him. He was evaluated by the care team and deemed not to require an inpatient psych stay. Time Spent with Patient Time attestation: Total time spent providing and/or coordinating discharge services: Discharge coordination time: Greater than 30 minutes Quality: Stroke Does the patient have a stroke diagnosis?: No Physical Exam Vital Signs: Vital Signs: Last Vital Signs Temp 98.3 F 06/05/21 10:48 Pulse 86 06/05/21 11:17 Resp 18 06/05/21 10:48 BP 140/72 H 06/05/21 11:17 Pulse Ox 99 06/05/21 11:17 Body Mass Index 33.9 Const: Other: General - no acute distress, appears comfortable Cardiovascular - regular rate and rhythm, S1-S2 Lungs - normal respiratory effort, clear to auscultation bilaterally, no wheezing Abdomen - soft, nontender, no rebound or guarding Extremities - no edema bilaterally Neuro - awake and alert, no focal deficits DS: Data Data Completed and Pending Labs on day of discharge: Laboratory Results - last 24 hr 06/03/21 06/04/21 06/04/21 07:16 16:41 20:17 Sodium Potassium Chloride Carbon Dioxide Anion Gap BUN Creatinine Estim Creat Clear Calc Estimated GFR POC Glucose 108 140 H Random Glucose Calcium Cortisol 7.0 06/05/21 06/05/21 06/05/21 07:11 09:14 10:49 Sodium 130 L Potassium 4.9 Chloride 99 Carbon Dioxide 26 Anion Gap 10 L BUN 19 H Creatinine 0.84 Estim Creat Clear Calc 114.9 Estimated GFR > 60 POC Glucose 74 108 Random Glucose 135 H Calcium 8.3 L Cortisol Discharge Plan Discharge Patient Disposition: Home Health Service Discharge Diagnosis: HypoNa Referrals: Alecia JENSEN [Outside] - 1 Week Po,Robert Downing MD [Physician] - 1 Week Physician,Unknown [Primary Care Provider] - 1 Week Discharge Medications: New urea 15 gram powder in packet 1 packet PO BID Qty: 60 RF: 0 Continued dexlansoprazole [Dexilant] 60 mg capsule,biphase delayed releas 60 mg PO DAILY Qty: 28 RF: 11 cholecalciferol (vitamin D3) 25 mcg (1,000 unit) tablet 25 mcg PO DAILY Qty: 28 RF: 11 hydralazine 50 mg tablet 50 mg PO BID 90 Days Qty: 180 RF: 2 acetaminophen 325 mg tablet 650 mg PO Q4H PRN (Reason: fever or pain) 90 Days Qty: 180 RF: 2 propranolol 20 mg tablet 20 mg PO TID 90 Days Qty: 270 RF: 1 furosemide 20 mg tablet 20 mg PO QAM Qty: 28 RF: 3 amlodipine [Norvasc] 5 mg Tablet 5 mg PO DAILY RF: 0 aspirin [Ecotrin Low Strength] 81 mg Tablet,Delayed Release (Dr/Ec) 81 mg PO DAILY RF: 0 divalproex [Depakote ER] 500 mg Tablet Extended Release 24 Hr 1,000 mg PO BID RF: 0 Citrucel 500 mg Tablet 500 mg PO DAILY RF: 0 dicyclomine 20 mg Tablet 20 mg PO QID PRN (Reason: Cramps) RF: 0 fluticasone propionate 50 mcg/actuation spray,suspension 1 spray intranasal BID RF: 0 atorvastatin 10 mg tablet 10 mg PO BEDTIME RF: 0 fluticasone propion-salmeterol [Advair Diskus] 250-50 mcg/dose blister with device 1 puff inhalation BID RF: 0 cyanocobalamin (vitamin B-12) 1,000 mcg tablet 1,000 mcg PO DAILY@2000 RF: 0 risperidone 3 mg tablet 3 mg PO BID RF: 0 gabapentin 100 mg capsule 100 mg PO BID RF: 0 metformin 500 mg tablet 500 mg PO BID Qty: 60 RF: 3 lisinopril 20 mg tablet 20 mg PO DAILY RF: 0 Discontinued demeclocycline 300 mg tablet 300 mg PO BID RF: 0 Discharge Orders: Discharge Order (Routine); Ordered 06/05/21 Ordered By: Michael Don Diet: advance to usual diet Activity on Discharge: As tolerated Stand Alone Forms: Patient Portal Discharge page Care Plan Goals: To stay healthy and out of the hospital. Health Concerns: Hyponatremia Plan of Treatment: Stop demeclocycline. Start Urea 15gm twice daily. Have your blood work checked next week. Once your sodium level is 135 or higher, take Urea 15mg daily. Do not drink more than 1.5 to 1.8L of water Follow up with PCP Assessment: 50 yo M admitted for hypoNa -- multifactorial. Treated with fluid restriction and urea powder with improvement in SNa levels. Andrae be d/c on Urea 15mg twice daily. He should discontinue demeclocycline
--- NOTE | 2021-06-05 14:47 | P.F2F_ITS ---
Service Date Service Date: 06/05/21 Encounter Date of encounter: 06/05/21 Encounter: Home wallpaper consultant RN for lab draws Reasons for Services Reason for nursing home: other (Check BMP on 06/11/21) Reason for physical therapy: home safety and mobility MD Overseeing Care: Robert Sumner Homebound: Leaving the home is medically contraindicated at this time without the asist of a device and/or another person due th the listed conditions above and below. Certification: Based on the above findings, I certify that this patient is confined to the home and needs intermittent nursing home care, physical therapy and/or speech therapy, or continues to need occupational therapy. The patient is under my care, and I have initiated the establishment of the plan of care. The patient will be followed by a physician who will periodically review the plan of care.
[2021-06-05] MEDS: Urea 15 GM POWDER PO (15:59)
--- NOTE | 2021-06-05 16:03 | MHC.CM.PN ---
IMM 06/05/21 Male Hyponatremia is discharged today [facility]. [facility] will deliver Urea tomorrow. Soke with [facility]. At one point the dc was going to be pushed to tomorrow. Nursing power plant supervisor, Jeff was able to obtain the dose for tomorrow am. long term staff scheduled to pick pt up at 4:30 today.
--- NOTE | 2021-06-06 14:25 | P.F2F_ITS ---
Service Date Service Date: 06/05/21 Encounter Encounter: 06/05/2021 Reasons for Services Reason for [facility]: medication management, medication treatment and teach disease management Reason for physical therapy: home safety and mobility and therapeutic exercises Overseeing Care: Robert Sumner Homebound: Leaving the home is medically contraindicated at this time without the asist of a device and/or another person due th the listed conditions above and below. Homebound supporting statement: Cognitive impairment. Certification: Based on the above findings, I certify that this patient is confined to the home and needs intermittent [facility] care, physical therapy and/or speech therapy, or continues to need occupational therapy. The patient is under my care, and I have initiated the establishment of the plan of care. The patient will be followed by a physician who will periodically review the plan of care.
== END 2021-06-05 16:44 | disposition home health service (06) | DRG 644 ==
LOC: HO.ED 06-01 00:48 → HO.EDOVER 06-01 01:59 → HO.IMC 06-01 16:18
PROVIDERS: Internal Medicine; Internal Medicine Nephrology; Admitting Provider Hospitalist; Emergency Provider Emergency Medicine; Visit Provider Family Medicine
DX: E22.2 Syndrome of inappropriate secretion of antidiuretic hormone (principal); R44.0 Auditory hallucinations; E83.42 Hypomagnesemia; E78.5 Hyperlipidemia, unspecified; I10 Essential (primary) hypertension; F41.9 Anxiety disorder, unspecified; D69.6 Thrombocytopenia, unspecified; F32.9 Major depressive disorder, single episode, unspecified; T42.6X5A Adverse effect of other antiepileptic and sedative-hypnotic drugs, initial encounter; Y92.099 Unspecified place in other non-institutional residence as the place of occurrence of the external cause; G40.909 Epilepsy, unspecified, not intractable, without status epilepticus; Z86.73 Personal history of transient ischemic attack (TIA), and cerebral infarction without residual deficits; R07.89 Other chest pain; Z20.822 Contact with and (suspected) exposure to COVID-19; Z88.2 Allergy status to sulfonamides; Z79.82 Long term (current) use of aspirin; Z79.84 Long term (current) use of oral hypoglycemic drugs; Z79.899 Other long term (current) drug therapy
CPT/HCPCS: 36415; 80048; 80051; 80076; 80307; 81001; 82436; 82533; 82947; 83735; 83930; 83935; 84133; 84300; 84443; 84484; 85025; 85027; 87635; 93005; 94640; 97161; 99285; J1650; J3475

== ENCOUNTER 2021-06-15 03:35 | Emergency (ER) | payer MEDICARE, MEDICAID, SELFPAY ==
--- NOTE | ~2021-06-15 | XR_ITS ---
EXAMINATION: XR CHEST CLINICAL INFORMATION: Chest pain COMPARISON: 05/23/2021 TECHNIQUE: Frontal view of the chest was obtained. FINDINGS: No significant abnormality is noted involving the heart, lungs, mediastinum, bony thorax or soft tissues. XR/XR chest 1V IMPRESSION: Unremarkable examination.
--- NOTE | 2021-06-15 03:41 | ECG_ITS ---
Test Reason : GEN MED Blood Pressure : / mmHG Vent. Rate : 074 BPM Atrial Rate : 074 BPM P-R Int : 188 ms QRS Dur : 098 ms QT Int : 390 ms P-R-T Axes : 083 -14 034 degrees QTc Int : 432 ms Poor data quality Normal sinus rhythm Normal ECG When compared with ECG of 15-JUN-2021 03:42, No significant changes seen Referred By: Nishant Fraire Electronically Signed By:Oni Mcneil
[2021-06-15 03:44] VITALS: BP 169/73; PULSE 70; RESP 16; TEMP 36.8; O2SAT 98; BMI 34.1
[2021-06-15 04:05] LABS: MANUAL DIFF FLAG NO
[2021-06-15 04:06] LABS: Basophils Percent Auto 0.7 % (0-2); Eosinophils Absolute Auto 0.1 X10*3/uL (0.0-0.4); Eosinophils Percent Auto 1.8 % (0-4); Hematocrit 28.8 % (42-52); Hemoglobin 10.1 g/dl (14.0-18.0); Imm Gran Abs Auto 0.05 X10*3/uL (0.00-0.03); Imm Gran Pct Auto 0.9 % (0.0-0.4); Lymphocytes Absolute Auto 1.8 X10*3/uL (1.2-4.9); Lymphocytes Percent Auto 31.5 % (20-40); Mean Corpuscular HGB Conc 35.1 g/dl (31.0-36.0); Mean Corpuscular Hemoglobin 29.4 pg (27.0-33.0); Mean Corpuscular Volume 83.7 fL (80-98); Monocytes Absolute Auto 0.6 X10*3/uL (0.1-1.2); Monocytes Percent Auto 10.6 % (2-11); Neutrophils Percent Auto 54.5 % (45-73); Red Blood Count 3.44 X10*6/uL (4.60-5.80); Red Cell Distribution Width 13.2 % (11.0-16.0); White Blood Count 5.6 X10*3/uL (4.8-10.8)
[2021-06-15 04:08] LABS: Platelet Count 89 X10*3/uL (160-400)
[2021-06-15 04:36] LABS: Anion Gap 16 (12-20); Blood Urea Nitrogen 45 mg/dL (9-16); Calcium 9.2 mg/dL (8.4-10.2); Carbon Dioxide 22 mmol/L (22-29); Chloride 96 mmol/L (96-108); Creatinine Clr Calc Pharmacy 96.5; Estimated Glomerular Filt Rate > 60; Glucose Random 96 mg/dL (60-115); Lipase 38 U/L (8-78); Potassium 4.6 mmol/L (3.3-5.1); Sodium 129 mmol/L (135-145)
[2021-06-15 04:45] LABS: Troponin-I High Sensitivity 3.6 ng/L (<3.5-35.0)
--- NOTE | 2021-06-15 05:34 | ED_ITS ---
HPI - General Adult General Chief complaint: General Medical Stated complaint: CHEST PRESSURE,DIZZY,SOB,HEARING VOICES Time Seen by Provider: 06/15/21 03:41 Source: patient and EMS Mode of arrival: EMS Limitations: no limitations History of Present Illness HPI narrative: 50 years old male with developmental delay live at the senior living brought in by ambulance for evaluation of chest pain and hearing voices to hurt himself or somebody else. Chest pain localized to the mid chest retrosternal area, with no radiation, describes the pain as constant pain started yesterday morning more than 24 hours ago, pain is moderate in severity 5/10, nothing relieves the pain, nothing make it worse, no other associated symptoms. Patient also been complaining of hearing voices telling him to hurt himself or hurt somebody else. Related Data Home Medications Medication Instructions Recorded Confirmed risperidone 3 mg tablet 3 mg PO BID 09/22/20 05/31/21 atorvastatin 10 mg tablet 10 mg PO BEDTIME 11/28/20 05/31/21 amlodipine 5 mg tablet (Norvasc) 5 mg PO DAILY 01/23/21 05/31/21 aspirin 81 mg tablet,delayed 81 mg PO DAILY 01/23/21 05/31/21 release (Ecotrin Low Strength) divalproex 500 mg tablet,extended 1,000 mg PO BID 01/23/21 05/31/21 release 24 hr (Depakote ER) fluticasone propionate 50 1 spray INTRANASAL BID 03/05/21 05/31/21 mcg/actuation nasal spray,suspension dicyclomine 20 mg tablet 20 mg PO QID PRN 04/26/21 05/31/21 methylcellulose (laxative) 500 mg 500 mg PO DAILY 04/26/21 05/31/21 tablet (Citrucel) gabapentin 100 mg capsule 100 mg PO BID cap 04/27/21 05/31/21 lisinopril 20 mg tablet 20 mg PO DAILY 04/27/21 05/31/21 cyanocobalamin (vitamin B-12) 1,000 mcg PO DAILY@199905/07/21 05/31/21 1,000 mcg tablet fluticasone 250 mcg-salmeterol 50 1 puff INHALATION BID 05/07/21 05/31/21 mcg/dose blistr powdr for inhalation (Advair Diskus) blood sugar diagnostic (OneTouch #10 ea 06/11/21 Ultra Test) Previous Rx's Medication Instructions Recorded dexlansoprazole 60 mg 60 mg PO DAILY #28 cap 11/30/20 capsule,biphase delayed release (Dexilant) cholecalciferol (vitamin D3) 25 25 mcg PO DAILY #28 tab 12/19/20 mcg (1,000 unit) tablet hydralazine 50 mg tablet 50 mg PO BID 90 Days #180 tab 03/12/21 acetaminophen 325 mg tablet 650 mg PO Q4H PRN 90 Days #180 tab 04/27/21 metformin 500 mg tablet 500 mg PO BID #60 tab 04/27/21 propranolol 20 mg tablet 20 mg PO TID 90 Days #270 tab 05/18/21 furosemide 20 mg tablet 20 mg PO QAM #28 tab 06/05/21 urea 15 gram oral powder packet 1 packet PO BID #60 ea 06/05/21 Allergies Allergy/AdvReac Type Severity Reaction Status Date / Time Sulfa (Sulfonamide Allergy Severe CHAVEZ Verified 06/15/21 03:53 Antibiotics) ALICIA REACTION, Chavez Alicia trimethoprim Allergy Mild UNKNOWN Verified 06/15/21 03:53 lactose AdvReac Mild STOMACH Verified 06/15/21 03:53 UPSET Review of Systems Review of Systems: All other systems are reviewed and are negative Constitutional: Reports as per HPI and Reports no additional constitutional complaints Eyes: Reports as per HPI and Reports no additional eye complaints Reports system reviewed and no additional complaints, except as documented Cardiovascular: Reports as per HPI and Reports no additional cardiovascular complaints Respiratory: Reports as per HPI and Reports no additional respiratory complaints Gastrointestinal: Reports as per HPI and Reports no additional gastrointestinal complaints Genitourinary: Reports no additional female genitourinary complaints Musculoskeletal: Reports no additional musculoskeletal complaints Skin/Breast: Reports system reviewed and no additional complaints, except as docu Psychiatric: Reports no additional psychiatric complaints Endocrine: Reports no additional endocrine complaints Hematologic/Lymphatic: Reports no additional hematologic/lymphatic complaints Allergic/Immunologic: Reports no additional allergic/immunologic complaints Reports system reviewed and no additional complaints, except as documented and Reports Abnormal speech present [facility] Past Medical History Medical History Anemia Anxiety Asthma Cerebellar ataxia Depression Essential hypertension Hyperlipidemia LDL goal <100 Hypertension Hyponatremia Lactose intolerance Mental disability Obesity due to excess calories Peripheral vascular disease Proteinuria Seizure disorder Type 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 Vertigo Surgical History History of orchiectomy Family History Family History Father Myocardial infarction CVD (cardiovascular disease) Diabetes mellitus Mother Diabetes mellitus HTN (hypertension) Brother In good health Sister In good health Social History Social History Household Members: Other Household Members Other:: from senior living Housing: Other Housing Other:: senior living Do you presently have visiting nurse or other home services: Yes Alcohol intake: never Patient Tobacco Use Status: Never used Tobacco e-Cigarette/Vaping Use: Never Used Second Hand Smoke Exposure: No Advance Directives: Yes Advance Directives on File: Yes Advance Directives Date on File: 05/23/21 service: No Current occupational status: disabled Physical Exam Vital Signs: Vital Signs: Last Vital Signs Temp 98.2 F 06/15/21 03:44 Pulse 70 06/15/21 03:44 Resp 16 06/15/21 03:44 BP 169/73 H 06/15/21 03:44 Pulse Ox 98 06/15/21 03:44 Body Mass Index 34.1 Vital signs have been reviewed as appeared to be correct. Blood pressure elevated. Heart rate normal. Respiration rate normal. Temperature normal. Oxygen saturation normal. Appearance: Alert. Oriented X3. No acute distress. Head: Normal external exam. Normocephalic. Atraumatic. No Corona signs noted. No raccoon eyes noted Eyes: PERRLA. EOMI. Conjunctiva and sclera normal. Eyelids normal. ENT: TM's Normal. Pharynx normal. Uvula midline. Moist mucous membranes. No trismus noted. No drooling noted. No muffled voice noted. Neck: Normal inspection. Neck supple. FROM. No adenopathy. Thyroid Normal. No meningeal signs. No neck mass noted. CVS: Normal heart rate and rhythm. Heart sound normal. No murmurs noted. Pulses normal throughout. Respiratory: No respiratory distress. Painless inspiration. Breath sounds normal. No wheezes/rales/rhonchi noted. Chest nontender. No accessory muscle usage noted or decreased air movement noted. Abdomen: Soft and nontender. Bowel sounds normal in all 4 quadrants. No distention noted. No organomegaly noted. No visible injury noted. Back: No CVA tenderness. Full range of motion noted. Skin: Skin warm and dry. Normal skin color. Normal skin turgor. No rashes/ lesions/lacerations noted. Extremities: No lower extremity edema. Extremities exhibit normal range of motion. Extremities nontender. Neuro: Oriented X 3. Cranial nerve exam: II-XII are grossly intact No motor deficit. No sensory deficit. Reflexes normal. Course Course Course Narrative: 50-year-old male who came in for chest pain that is constant for the last 24 hours, physical exam/EKG/troponin are not consistent with cardiac chest pain. Patient is medically cleared will get BHN and to evaluate the patient. Reevaluation(s) Reevaluation #1: Physician observation started at 5:40 . Patient placed in physician observation because the patient needed more time for medication to work and to see PT/case management for evaluation and the need for placement patient's vital sign were stable, patient is alert and oriented , neuro exam unchanged, unremarkable rest of physical exam. Time: 05:40 Medical Decision Making Lab Data Lab results reviewed: Yes I reviewed the patient's lab results. Result diagrams: 06/15/21 04:00 06/15/21 04:00 Labs: Lab Results 06/15/21 06/15/21 06/15/21 Range/Units 04:00 04:00 04:00 WBC 5.6 (4.8-10.8) X10*3/uL RBC 3.44 L (4.60-5.80) X10*6/uL Hgb 10.1 L (14.0-18.0) g/dl Hct 28.8 L (42-52) % MCV 83.7 (80-98) fL MCH 29.4 (27.0-33.0) pg MCHC 35.1 (31.0-36.0) g/dl RDW 13.2 (11.0-16.0) % Plt Count 89 L (160-400) X10*3/uL MPV 10.0 (9.4-12.4) fL Immature Gran % (Auto) 0.9 H (0.0-0.4) % Neut % (Auto) 54.5 (45-73) % Lymph % (Auto) 31.5 (20-40) % [place] % (Auto) 10.6 (2-11) % Eos % (Auto) 1.8 (0-4) % Baso % (Auto) 0.7 (0-2) % Lymph # (Auto) 1.8 (1.2-4.9) X10*3/uL [place] # (Auto) 0.6 (0.1-1.2) X10*3/uL Eos # (Auto) 0.1 (0.0-0.4) X10*3/uL Baso # (Auto) 0.0 (0.0-0.2) X10*3/uL Abs Immat Gran (auto) 0.05 H (0.00-0.03) X10*3/uL Absolute Neuts (auto) 3.0 (2.0-8.3) X10*3/uL Absolute Nucleated RBC 0.000 (0.0-0.012) X10*3/uL Nucleated RBC % (auto) 0.0 (0.0-0.2) /100WBC Sodium 129 L (135-145) mmol/L Potassium 4.6 (3.3-5.1) mmol/L Chloride 96 (96-108) mmol/L Carbon Dioxide 22 (22-29) mmol/L Anion Gap 16 (12-20) BUN 45 H D (9-16) mg/dL Creatinine 0.97 (0.5-1.4) mg/dL Estim Creat Clear Calc 96.5 Estimated GFR > 60 Random Glucose 96 (60-115) mg/dL Calcium 9.2 D (8.4-10.2) mg/dL Troponin I High Sens 3.6 (<3.5-35.0) ng/L Lipase 38 (8-78) U/L Imaging Data Chest x-ray: Radiologist's impression: Unremarkable examination ECG Data Interpretation: Inadequate EKG secondary to patient's movement and artifact. Discharge Plan Discharge Clinical Impression: Chest pain, Suicidal thoughts Prescriptions: No [facility] dexlansoprazole [Dexilant] 60 mg capsule,biphase delayed releas 60 mg PO DAILY Qty: 28 RF: 11 cholecalciferol (vitamin D3) 25 mcg (1,000 unit) tablet 25 mcg PO DAILY Qty: 28 RF: 11 hydralazine 50 mg tablet 50 mg PO BID 90 Days Qty: 180 RF: 2 acetaminophen 325 mg tablet 650 mg PO Q4H PRN (Reason: fever or pain) 90 Days Qty: 180 RF: 2 propranolol 20 mg tablet 20 mg PO TID 90 Days Qty: 270 RF: 1 furosemide 20 mg tablet 20 mg PO QAM Qty: 28 RF: 3 amlodipine [Norvasc] 5 mg Tablet 5 mg PO DAILY RF: 0 aspirin [Ecotrin Low Strength] 81 mg Tablet,Delayed Release (Dr/Ec) 81 mg PO DAILY RF: 0 divalproex [Depakote ER] 500 mg Tablet Extended Release 24 Hr 1,000 mg PO BID RF: 0 Citrucel 500 mg Tablet 500 mg PO DAILY RF: 0 dicyclomine 20 mg Tablet 20 mg PO QID PRN (Reason: Cramps) RF: 0 fluticasone propionate 50 mcg/actuation spray,suspension 1 spray intranasal BID RF: 0 atorvastatin 10 mg tablet 10 mg PO BEDTIME RF: 0 fluticasone propion-salmeterol [Advair Diskus] 250-50 mcg/dose blister with device 1 puff inhalation BID RF: 0 cyanocobalamin (vitamin B-12) 1,000 mcg tablet 1,000 mcg PO DAILY@1999 RF: 0 urea 15 gram powder in packet 1 packet PO BID Qty: 60 RF: 0 risperidone 3 mg tablet 3 mg PO BID RF: 0 gabapentin 100 mg capsule 100 mg PO BID RF: 0 metformin 500 mg tablet 500 mg PO BID Qty: 60 RF: 3 lisinopril 20 mg tablet 20 mg PO DAILY RF: 0
[2021-06-15 06:39] VITALS: BP 146/79; PULSE 77; RESP 16; TEMP 36.8; O2SAT 95
--- NOTE | 2021-06-15 09:49 | PC.NURSE ---
RAFFAELE CALLED RE:CONSULT
--- NOTE | 2021-06-15 09:58 | PC.NURSE ---
BHN consult submitted
--- NOTE | 2021-06-15 10:24 | MHC.CARE ---
CARE Team meets with patient, who appears to be at his baseline functioning. Pt lives in a 24 hr staffed skilled nursing and is involved with DDS. He states that he was brought to the ED due to chest pain. Pt reports AH and SI/HI, however, these statements appear to correlate with a desire to not return to his skilled nursing. Pt is not a reliable reported. According to intelligence group supervisor, Corwin, pt makes these statements as a way to get out of the skilled nursing. Corwin describes this as attention seeking. Corwin feels that there are not genuine safety concerns at this time, and he feels confident that he and the skilled nursing staff can keep pt and peers safe in the skilled nursing at this time. CARE Team does not recommend inpt admission, as pt appears to be at baseline. Pt also reports that he would like to go to a jail or rehab for physical therapy. This is communicated to Tyra business case analyst, who will be touching base with pt's VNA and skilled nursing staff. Recommendations discussed with PANKAJ Hinton, who agrees that pt is not in need of inpt psych admission.
--- NOTE | 2021-06-15 11:12 | MHC.CM.ED ---
Patient cleared by Nupur at Care team. custodial feels patient can safely return home. Patient is active with Alecia SHENA. Per Anay at [facility], therapist feels patient can safely return home. Spoke with Simeon via telephone at [phone]. Simeon is requesting transportation be booked. [facility] booked. Med [facility] with chart. Mary Jane LIRA aware. Continue to monitor for d/c needs.
== END 2021-06-15 12:23 | disposition other institution (70) ==
PROVIDERS: Emergency Provider Emergency Medicine; PCP Internal Medicine
DX: R07.9 Chest pain, unspecified (principal); R45.851 Suicidal ideations; I10 Essential (primary) hypertension; E11.9 Type 2 diabetes mellitus without complications; R62.50 Unspecified lack of expected normal physiological development in childhood; Z79.84 Long term (current) use of oral hypoglycemic drugs; Z79.899 Other long term (current) drug therapy
CPT/HCPCS: 36415; 71045; 80048; 83690; 84484; 85025; 93005; 99284; 99285

== ENCOUNTER 2021-06-15 15:18 | Emergency (ER) | payer MEDICARE, MEDICAID, SELFPAY ==
[2021-06-15 15:24] VITALS: BP 122/70; PULSE 88; PULSE 95; RESP 18; TEMP 36.6; O2SAT 96; O2SAT 98; BMI 35.5
--- NOTE | 2021-06-15 16:01 | ED.ABDPAIN ---
HPI - Abdominal Pain General Chief Complaint: Abdominal Pain Stated Complaint: abd pain Time Seen by Provider: 06/15/21 16:01 Source: patient, EMS and old records reviewed Mode of arrival: EMS Limitations: no limitations History of Present Illness HPI narrative: 50 yo male with hx of mental health issues, chest pain, obesity, intermittent chronic right lower abdominal pain for which he has had two CT scans this year which were negative, had normal labs earlier, seen and cleared by crisis for SI - states he basically does not want to go back to his senior living - he denies safety concerns, he then asks for food when we are talking. MD elicited complaint: abdominal pain Pertinent past history: other (chronic abdominal pain intermittently ) Onset (ago): hour(s) (7 am this morning (i believe he was in the ED but then tells me he forgot to tell staff.)) Pain Consistency: constant Location: RLQ Severity: mild Quality: dull Radiation: none Migration to: no migration Exacerbating factors: nothing Relieving factors: nothing Context: history of similar episodes Associated symptoms: denies other symptoms Related Data Home Medications Medication Instructions Recorded Confirmed risperidone 3 mg tablet 3 mg PO BID 09/22/20 06/15/21 atorvastatin 10 mg tablet 10 mg PO BEDTIME 11/28/20 06/15/21 amlodipine 5 mg tablet (Norvasc) 5 mg PO DAILY 01/23/21 06/15/21 aspirin 81 mg tablet,delayed 81 mg PO DAILY 01/23/21 06/15/21 release (Ecotrin Low Strength) divalproex 500 mg tablet,extended 1,000 mg PO BID 01/23/21 06/15/21 release 24 hr (Depakote ER) fluticasone propionate 50 1 spray INTRANASAL BID 03/05/21 06/15/21 mcg/actuation nasal spray,suspension dicyclomine 20 mg tablet 20 mg PO QID PRN 04/26/21 06/15/21 methylcellulose (laxative) 500 mg 500 mg PO DAILY 04/26/21 06/15/21 tablet (Citrucel) gabapentin 100 mg capsule 100 mg PO BID cap 04/27/21 06/15/21 lisinopril 20 mg tablet 20 mg PO DAILY 04/27/21 06/15/21 cyanocobalamin (vitamin B-12) 1,000 mcg PO DAILY@199905/07/21 06/15/21 1,000 mcg tablet fluticasone 250 mcg-salmeterol 50 1 puff INHALATION BID 05/07/21 06/15/21 mcg/dose blistr powdr for inhalation (Advair Diskus) blood sugar diagnostic (OneTouch #10 ea 06/11/21 Ultra Test) Previous Rx's Medication Instructions Recorded dexlansoprazole 60 mg 60 mg PO DAILY #28 cap 11/30/20 capsule,biphase delayed release (Dexilant) cholecalciferol (vitamin D3) 25 25 mcg PO DAILY #28 tab 12/19/20 mcg (1,000 unit) tablet hydralazine 50 mg tablet 50 mg PO BID 90 Days #180 tab 03/12/21 acetaminophen 325 mg tablet 650 mg PO Q4H PRN 90 Days #180 tab 04/27/21 metformin 500 mg tablet 500 mg PO BID #60 tab 04/27/21 propranolol 20 mg tablet 20 mg PO TID 90 Days #270 tab 05/18/21 furosemide 20 mg tablet 20 mg PO QAM #28 tab 06/05/21 urea 15 gram oral powder packet 1 packet PO BID #60 ea 06/05/21 Allergies Allergy/AdvReac Type Severity Reaction Status Date / Time Sulfa (Sulfonamide Allergy Severe CHAVEZ Verified 06/15/21 03:53 Antibiotics) ALICIA REACTION, Chavez Alicia trimethoprim Allergy Mild UNKNOWN Verified 06/15/21 03:53 lactose AdvReac Mild STOMACH Verified 06/15/21 03:53 UPSET Review of Systems Review of Systems Constitutional : No Weight loss, No Fever, No Chills ENT/Mouth : No sore throat, No Rhinorrhea Eyes: No Swelling, No Redness Cardiovascular : No Chest Pain, No SOB, NoEdema Respiratory : No Cough, No Sputum, No Wheezing Gastrointestinal : no Nausea, no Vomiting, no Diarrhea, positive abdominal Pain, No Hematochezia, No Melena Genitourinary : No Dysuria, No Urinary Frequency, No Hematuria, No Urgency Musculoskeletal : No joint pain, No Myalgias, No Joint Swelling Skin : No Skin Lesions, No rash Neuro : No Weakness, No Numbness, No Dizziness, No Headache Psych : No Anxiety/Panic, No Depression Heme/Lymph: No Bruising, No Lymphadenopathy Endocrine : No Polyuria, No Polydipsia All other systems reviewed and are negative. Physical Exam Vital Signs: Vital Signs: Last Vital Signs Temp 97.8 F 06/15/21 15:24 Pulse 88 06/15/21 15:24 Resp 18 06/15/21 15:24 Pulse Ox 96 06/15/21 15:24 Body Mass Index 35.5 Appearance: Alert. Oriented X3. No acute distress. I am hungry Eyes: Pupils equal, round and reactive to light. ENT: Pharynx normal. Neck: Normal inspection. Neck supple. CVS: Normal heart rate and rhythm. Pulses normal. Respiratory: No respiratory distress. Breath sounds normal. Abdomen: Soft and nontender. at one point he reported his R iliac crest was tender but I do not appreciate actual lower abdominal pain Skin: Skin warm and dry. Normal skin color. Normal skin turgor. Extremities: No lower extremity edema. No calf ttp Neuro: Oriented X 3. No motor deficit. No sensory deficit. MDM - Abdominal Pain MDM Narrative Medical decision making narrative: 50 yo male with multiple problems including chronic bouts of RLQ pain for which he has had [address] scans this year - he had normal baseline labs this AM. His pain is not impressive his VS are stable, he initially told me he was throwing up but no one witnessed this as he has a sitter. He then asked me for food. I suspect that this is secondary gain given he does not want to go to his senior living. He has a safe plan and discharge from [facility] this AM, I believe he can be discharged to his senior living. When told he was leaving he started to make SI statements which he initially did not report to me until he was leaving again this is related to him not wanting to go to the senior living. Discharge Plan Discharge Clinical Impression: Abdominal pain Qualifiers: Abdominal location: right lower quadrant Qualified Code(s): R10.31 - Right lower quadrant pain Patient Disposition: Home, Self-Care Instructions: Abdominal Pain (ED) Additional Instructions: return to ED for any worsening symptoms or concerns Prescriptions: No Action dexlansoprazole [Dexilant] 60 mg capsule,biphase delayed releas 60 mg PO DAILY Qty: 28 RF: 11 cholecalciferol (vitamin D3) 25 mcg (1,000 unit) tablet 25 mcg PO DAILY Qty: 28 RF: 11 hydralazine 50 mg tablet 50 mg PO BID 90 Days Qty: 180 RF: 2 acetaminophen 325 mg tablet 650 mg PO Q4H PRN (Reason: fever or pain) 90 Days Qty: 180 RF: 2 propranolol 20 mg tablet 20 mg PO TID 90 Days Qty: 270 RF: 1 furosemide 20 mg tablet 20 mg PO QAM Qty: 28 RF: 3 amlodipine [Norvasc] 5 mg Tablet 5 mg PO DAILY RF: 0 aspirin [Ecotrin Low Strength] 81 mg Tablet,Delayed Release (Dr/Ec) 81 mg PO DAILY RF: 0 divalproex [Depakote ER] 500 mg Tablet Extended Release 24 Hr 1,000 mg PO BID RF: 0 Citrucel 500 mg Tablet 500 mg PO DAILY RF: 0 dicyclomine 20 mg Tablet 20 mg PO QID PRN (Reason: Cramps) RF: 0 fluticasone propionate 50 mcg/actuation spray,suspension 1 spray intranasal BID RF: 0 atorvastatin 10 mg tablet 10 mg PO BEDTIME RF: 0 fluticasone propion-salmeterol [Advair Diskus] 250-50 mcg/dose blister with device 1 puff inhalation BID RF: 0 cyanocobalamin (vitamin B-12) 1,000 mcg tablet 1,000 mcg PO DAILY@1999 RF: 0 urea 15 gram powder in packet 1 packet PO BID Qty: 60 RF: 0 risperidone 3 mg tablet 3 mg PO BID RF: 0 gabapentin 100 mg capsule 100 mg PO BID RF: 0 metformin 500 mg tablet 500 mg PO BID Qty: 60 RF: 3 lisinopril 20 mg tablet 20 mg PO DAILY RF: 0 Referrals: [facility] [Primary Care Provider] - 1 day (if not better) [facility] Past Medical History Attestation statement: The following information was validated with the patient. Medical History Anemia Anxiety Asthma Cerebellar ataxia Depression Essential hypertension Hyperlipidemia LDL goal <100 Hypertension Hyponatremia Lactose intolerance Mental disability Obesity due to excess calories Peripheral vascular disease Proteinuria Seizure disorder Type 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 Vertigo Surgical History History of orchiectomy Family History Family History Father Myocardial infarction CVD (cardiovascular disease) Diabetes mellitus Mother Diabetes mellitus HTN (hypertension) Brother In good health Sister In good health Social History Social History Household Members: Other Household Members Other:: from senior living Housing: Other Housing Other:: senior living Do you presently have visiting nurse or other home services: Yes Alcohol intake: never Patient Tobacco Use Status: Never used Tobacco e-Cigarette/Vaping Use: Never Used Second Hand Smoke Exposure: No Advance Directives: No Advance Directives Information Provided: No Advance Directives Date on File: 05/23/21 service: No Current occupational status: disabled
== END 2021-06-15 16:51 | disposition home or self-care (01) ==
PROVIDERS: Emergency Provider Emergency Medicine
DX: R10.31 Right lower quadrant pain (principal); I10 Essential (primary) hypertension; E11.9 Type 2 diabetes mellitus without complications; Z79.84 Long term (current) use of oral hypoglycemic drugs; Z79.899 Other long term (current) drug therapy
CPT/HCPCS: 36415; 71045; 80048; 83690; 84484; 85025; 93005; 99283; 99284

== ENCOUNTER 2021-06-20 10:10 | Outpatient (REF) | payer MEDICARE, MEDICAID, SELFPAY ==
[2021-06-21 14:56] LABS: H Pylori Breath Test DETECTED (NOT DETECTED)
== END 2021-06-20 10:11 | disposition home or self-care (01) ==
LOC: HO.LNP 10:10
PROVIDERS: PCP Internal Medicine; Referring Provider Internal Medicine; Visit Provider Nurse Practitioner Family
DX: K21.9 Gastro-esophageal reflux disease without esophagitis (principal); R10.84 Generalized abdominal pain; Z11.0 Encounter for screening for intestinal infectious diseases
CPT/HCPCS: 83013; 99212

== ENCOUNTER 2021-06-21 16:11 | Emergency (ER) | payer MEDICARE, MEDICAID, SELFPAY ==
[2021-06-21 16:18] VITALS: BP 110/64; PULSE 88; RESP 16; TEMP 36.5; O2SAT 98; BMI 34.1
--- NOTE | 2021-06-21 16:31 | ECG_ITS ---
Test Reason : GENERAL MEDICAL Blood Pressure : / mmHG Vent. Rate : 087 BPM Atrial Rate : 087 BPM P-R Int : 182 ms QRS Dur : 088 ms QT Int : 368 ms P-R-T Axes : 071 010 050 degrees QTc Int : 442 ms Normal sinus rhythm Cannot rule out Anterior infarct , age undetermined ; could be from body habitus and lead placement Borderline ECG When compared with ECG of 15-JUN-2021 03:42, due to quality, cannot compare Referred By: Reggie Braxton Electronically Signed By:AP MONTGOMERY
[2021-06-21 16:54] LABS: MANUAL DIFF FLAG NO
[2021-06-21 16:56] LABS: Basophils Percent Auto 0.6 % (0-2); Eosinophils Absolute Auto 0.1 X10*3/uL (0.0-0.4); Eosinophils Percent Auto 2.8 % (0-4); Hematocrit 31.3 % (42-52); Hemoglobin 10.6 g/dl (14.0-18.0); Imm Gran Abs Auto 0.02 X10*3/uL (0.00-0.03); Imm Gran Pct Auto 0.4 % (0.0-0.4); Lymphocytes Absolute Auto 1.3 X10*3/uL (1.2-4.9); Lymphocytes Percent Auto 25.6 % (20-40); Mean Corpuscular HGB Conc 33.9 g/dl (31.0-36.0); Mean Corpuscular Hemoglobin 29.3 pg (27.0-33.0); Mean Corpuscular Volume 86.5 fL (80-98); Mean Platelet Volume 10.1 fL (9.4-12.4); Monocytes Absolute Auto 0.4 X10*3/uL (0.1-1.2); Monocytes Percent Auto 8.5 % (2-11); Neutrophils Absolute Auto 3.1 X10*3/uL (2.0-8.3); Neutrophils Percent Auto 62.1 % (45-73); Platelet Count 127 X10*3/uL (160-400); Red Blood Count 3.62 X10*6/uL (4.60-5.80); Red Cell Distribution Width 13.7 % (11.0-16.0); White Blood Count 4.9 X10*3/uL (4.8-10.8)
[2021-06-21] MEDS: Acetaminophen 325 MG TABLET 975 MG PO (16:59)
[2021-06-21] MEDS: LORazepam 1 MG TABLET PO (16:59)
--- NOTE | 2021-06-21 17:11 | ED_ITS ---
HPI - Psych General Chief Complaint: Psychiatric Symptoms Stated Complaint: chest pain/si Time Seen by Provider: 06/21/21 16:17 Source: patient Mode of arrival: EMS Limitations: no limitations History of Present Illness HPI Narrative: 50-year-old male who presents emergency department for evaluation of suicidal ideation and abdominal pain. The patient states that he has been feeling suicidal x2 days. He states these hearing voices that are telling him to hurt himself. He states he has heard some voices past. The patient states that he lives in a shelter for 20 years. He states that he does not like the shelter. He is requesting psychiatric evaluation. Patient also complains of abdominal pain. He states that he is having pain and points to his periumbilical area when asked to localize the pain. The pain started 2 days prior. He states the pain is a ?constant poking sensation. States that the pain is 10/10 at its worst and is currently 10/10. He has had similar pain in the past. He denied fever, chills, chest pain, shortness of breath, nausea, vomiting. He states that he has had 3 episodes of loose watery diarrheal stool with no blood in the stool. Related Data Home Medications Medication Instructions Recorded Confirmed risperidone 3 mg tablet 3 mg PO BID 09/22/20 06/21/21 atorvastatin 10 mg tablet 10 mg PO BEDTIME 11/28/20 06/21/21 aspirin 81 mg tablet,delayed 81 mg PO DAILY 01/23/21 06/21/21 release (Ecotrin Low Strength) divalproex 500 mg tablet,extended 1,000 mg PO BID 01/23/21 06/21/21 release 24 hr (Depakote ER) fluticasone propionate 50 1 spray INTRANASAL BID 03/05/21 06/21/21 mcg/actuation nasal spray,suspension dicyclomine 20 mg tablet 20 mg PO QID PRN 04/26/21 06/21/21 methylcellulose (laxative) 500 mg 500 mg PO DAILY 04/26/21 06/21/21 tablet (Citrucel) gabapentin 100 mg capsule 100 mg PO BID cap 04/27/21 06/21/21 lisinopril 20 mg tablet 20 mg PO DAILY 04/27/21 06/21/21 cyanocobalamin (vitamin B-12) 1,000 mcg PO DAILY@199905/07/21 06/21/21 1,000 mcg tablet fluticasone 250 mcg-salmeterol 50 1 puff INHALATION BID 05/07/21 06/21/21 mcg/dose blistr powdr for inhalation (Advair Diskus) blood sugar diagnostic (OneTouch #10 ea 06/11/21 Ultra Test) amlodipine 5 mg tablet (Norvasc) 5 mg PO DAILY 06/20/21 06/21/21 demeclocycline 300 mg tablet 300 mg PO BID 06/20/21 06/21/21 Previous Rx's Medication Instructions Recorded dexlansoprazole 60 mg 60 mg PO DAILY #28 cap 11/30/20 capsule,biphase delayed release (Dexilant) cholecalciferol (vitamin D3) 25 25 mcg PO DAILY #28 tab 12/19/20 mcg (1,000 unit) tablet hydralazine 50 mg tablet 50 mg PO BID 90 Days #180 tab 03/12/21 acetaminophen 325 mg tablet 650 mg PO Q4H PRN 90 Days #180 tab 04/27/21 metformin 500 mg tablet 500 mg PO BID #60 tab 04/27/21 propranolol 20 mg tablet 20 mg PO TID 90 Days #270 tab 05/18/21 furosemide 20 mg tablet 20 mg PO QAM #28 tab 06/05/21 urea 15 gram oral powder packet 1 packet PO BID #60 ea 06/05/21 Allergies Allergy/AdvReac Type Severity Reaction Status Date / Time Sulfa (Sulfonamide Allergy Severe CHAVEZ Verified 06/20/21 10:35 Antibiotics) ALICIA REACTION, Chavez Alicia trimethoprim Allergy Mild UNKNOWN Verified 06/20/21 10:35 lactose AdvReac Mild STOMACH Verified 06/20/21 10:35 UPSET Review of Systems Review of Systems: Yes all other systems are reviewed and are negative [facility] Past Medical History [facility] Narrative: Social history: The patient lives in a shelter. He denies tobacco use. He denies alcohol use. He denies drug use. Source: unable to obtain Medical History (Updated 06/22/21 @ 02:28 by Reggie Braxton MD) Anemia Anxiety Asthma Cerebellar ataxia Depression Essential hypertension Hyperlipidemia LDL goal <100 Hypertension Hyponatremia Lactose intolerance Mental disability Obesity due to excess calories Peripheral vascular disease Proteinuria Seizure disorder Type 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 Vertigo Surgical History History of orchiectomy Family History Family History Father Myocardial infarction CVD (cardiovascular disease) Diabetes mellitus Mother Diabetes mellitus HTN (hypertension) Brother In good health Sister In good health Social History Social History Household Members: Other Household Members Other:: from shelter Housing: Other Housing Other:: shelter Do you presently have visiting nurse or other home services: Yes Alcohol intake: unknown Patient Tobacco Use Status: Never used Tobacco e-Cigarette/Vaping Use: Never Used Second Hand Smoke Exposure: No Advance Directives: No Advance Directives Information Provided: No Advance Directives Date on File: 05/23/21 service: No Current occupational status: disabled Physical Exam Vital Signs: Vital Signs: Last Vital Signs Temp 97.7 F 06/21/21 16:18 Pulse 91 06/21/21 21:23 Resp 16 06/21/21 21:23 BP 108/57 L 06/21/21 21:24 Pulse Ox 98 06/21/21 21:23 Body Mass Index 34.1 Const: Other: Awake, alert male, he appears to be anxious, he is slightly tremulous, he is pleasant and cooperative, answers all questions appropriately. HENMT: Head: Yes normal to inspection, Yes normocephalic and Yes atraumatic Ears: external ears normal General nose exam: Normal external nose present Face and sinus: Yes normal facial exam Mouth: Normal oral and palatal mucosa present Throat: Yes posterior oropharynx normal Eyes: Alignment and Position: position abnormal right (Right eye is deviated laterally, does not cross midline) Periorbital: periorbital findings normal Conjunctivae: conjunctivae normal Sclerae: sclerae normal Direct Ophthalmoscopy: normal light reflex Neck: Neck: Yes normal visual inspection, Yes no lymphadenopathy, Yes trachea midline and Yes supple Chest: Chest palpation & inspection: normal inspection of the chest and normal palpation of entire chest wall Resp: Effort & Inspection: normal respiratory effort and able to speak in complete sentences Auscultation: clear to auscultation bilaterally Cardio: Rate: regular rate Rhythm: regular rhythm Heart sounds: S1 normal heart sound present, S2 normal heart sound present and no murmurs GI: Inspection: Yes normal to inspection Palpation (GI): Soft to palpation, Tenderness to palpation present (GI) periumbilically ([id number]) and no guarding Auscultation: normal bowel sounds : General: Yes no CVA tenderness Back/Spine/Pelvis: Back: no CVA tenderness Skin: General skin exam: no rashes or lesions noted Neuro: Cranial nerves: Yes CN's II-XII intact bilaterally Cognition (Neuro): normal cognition Motor exam (neuro): 5/5 motor strength present throughout Extrem: General: Yes normal to inspection Psych: Appearance: grossly normal Mental Status: mental status grossly normal Speech and movement: Normal speech and movement present Affect: Sad affect present and Anxious affect present Attitude: cooperative Thought process: Normal thought process present Thought content: Suicidality present and no homicidality Course Course Course Narrative: 50-year-old male who presents emergency department for evaluation of 2 separate complaints. The patient complains of suicidal ideation and hearing voices that are telling him to harm himself. Patient has had similar auditory hallucinations in the past. He is also complaining of abdominal pain x2 days. Patient had some mild suprapubic tenderness otherwise exam was unremarkable. I did order laboratory evaluation on this patient. The patient does appear to be anxious he was given Ativan 1 mg orally and his abdominal pain was treated with Tylenol 975 mg orally. 1914: Patient's laboratory evaluation is consistent with his baseline labs. Troponin was below detectable limits. Urinalysis and urine drug screens were negative. Alcohol is below detectable limits. Twelve EKG was unremarkable. At this time, I do not think that the patient has a medical condition that would preclude him from further psychiatric evaluation. Patient is medically cleared and is waiting for [facility] evaluation. 2102: Physician observation started at 2102. Patient placed in physician observation because the patient remains suicidal and will need to be observed until he can be evaluated by [facility] and be evaluated for the need for psych admission. At the time observation was started the patient's vitals were stable, patient is alert and oriented but slightly agitated, Neuro: nonfocal, CV RRR, Lungs clear. 0223: Physician observation continued. The patient was evaluated by the [facility] crisis counselor. The patient is apparently at his baseline and is frustrated that he was kicked out of his physical therapy rehab program. The patient is not suicidal or homicidal and can be discharged back to his shelter. Unfortunately, there is only 1 shelter staff member at night and the patient cannot be discharged until the morning. Therefore the patient will be kept in the emergency department he will continue to observe him until discharged. Physical examination: NAD, lungs clear, CV RRR, Abd nontender, Neuro intact. MDM - Psych Lab Data Result diagrams: 06/21/21 16:48 06/21/21 16:48 Labs: Lab Results 06/21/21 06/21/21 06/21/21 Range/Units 16:48 16:48 16:48 WBC 4.9 (4.8-10.8) X10*3/uL RBC 3.62 L (4.60-5.80) X10*6/uL Hgb 10.6 L (14.0-18.0) g/dl Hct 31.3 L (42-52) % MCV 86.5 (80-98) fL MCH 29.3 (27.0-33.0) pg MCHC 33.9 (31.0-36.0) g/dl RDW 13.7 (11.0-16.0) % Plt Count 127 L D (160-400) X10*3/uL MPV 10.1 (9.4-12.4) fL Immature Gran % (Auto) 0.4 (0.0-0.4) % Neut % (Auto) 62.1 (45-73) % Lymph % (Auto) 25.6 (20-40) % [place] % (Auto) 8.5 (2-11) % Eos % (Auto) 2.8 (0-4) % Baso % (Auto) 0.6 (0-2) % Lymph # (Auto) 1.3 (1.2-4.9) X10*3/uL [place] # (Auto) 0.4 (0.1-1.2) X10*3/uL Eos # (Auto) 0.1 (0.0-0.4) X10*3/uL Baso # (Auto) 0.0 (0.0-0.2) X10*3/uL Abs Immat Gran (auto) 0.02 (0.00-0.03) X10*3/uL Absolute Neuts (auto) 3.1 (2.0-8.3) X10*3/uL Absolute Nucleated RBC 0.000 (0.0-0.012) X10*3/uL Nucleated RBC % (auto) 0.0 (0.0-0.2) /100WBC Sodium 132 L (135-145) mmol/L Potassium 4.7 (3.3-5.1) mmol/L Chloride 99 (96-108) mmol/L Carbon Dioxide 23 (22-29) mmol/L Anion Gap 15 (12-20) BUN 48 H (9-16) mg/dL Creatinine 1.18 (0.5-1.4) mg/dL Estim Creat Clear Calc 79.3 Estimated GFR > 60 Random Glucose 155 H D (60-115) mg/dL Lactic Acid 1.9 (0.5-2.0) mmol/L Calcium 9.2 (8.4-10.2) mg/dL Total Bilirubin 0.2 (0.0-1.0) mg/dL AST 19 D (5-37) U/L ALT 14 (0-40) U/L Alkaline Phosphatase 63 D (39-117) U/L Troponin I High Sens (<3.5-35.0) ng/L Total Protein 6.7 (6.5-8.0) g/dL Albumin 3.9 (3.5-5.0) g/dL Lipase 64 (8-78) U/L Urine Color Urine Appearance Urine pH (5.0-8.0) Ur Specific [place] (1.005-1.025) Urine Protein (NEG-TRACE) MG/DL Urine Glucose (UA) (NEG) MG/DL Urine Ketones (NEG) MG/DL Urine Blood (NEG) Urine Nitrite (NEG) Ur Leukocyte Esterase (NEG) Urine Opiates Screen (Not Detect) Urine Fentanyl Screen (Not Detect) Ur Barbiturates Screen (Not Detect) Ur Phencyclidine Scrn (Not Detect) Ur Amphetamines Screen (Not Detect) U Benzodiazepines Scrn (Not Detect) Urine Cocaine Screen (Not Detect) U Marijuana (THC) Screen (Not Detect) Ethyl Alcohol mg/dL 06/21/21 06/21/21 06/21/21 Range/Units 16:48 16:48 17:41 WBC (4.8-10.8) X10*3/uL RBC (4.60-5.80) X10*6/uL Hgb (14.0-18.0) g/dl Hct (42-52) % MCV (80-98) fL MCH (27.0-33.0) pg MCHC (31.0-36.0) g/dl RDW (11.0-16.0) % Plt Count (160-400) X10*3/uL MPV (9.4-12.4) fL Immature Gran % (Auto) (0.0-0.4) % Neut % (Auto) (45-73) % Lymph % (Auto) (20-40) % [place] % (Auto) (2-11) % Eos % (Auto) (0-4) % Baso % (Auto) (0-2) % Lymph # (Auto) (1.2-4.9) X10*3/uL [place] # (Auto) (0.1-1.2) X10*3/uL Eos # (Auto) (0.0-0.4) X10*3/uL Baso # (Auto) (0.0-0.2) X10*3/uL Abs Immat Gran (auto) (0.00-0.03) X10*3/uL Absolute Neuts (auto) (2.0-8.3) X10*3/uL Absolute Nucleated RBC (0.0-0.012) X10*3/uL Nucleated RBC % (auto) (0.0-0.2) /100WBC Sodium (135-145) mmol/L Potassium (3.3-5.1) mmol/L Chloride (96-108) mmol/L Carbon Dioxide (22-29) mmol/L Anion Gap (12-20) BUN (9-16) mg/dL Creatinine (0.5-1.4) mg/dL Estim Creat Clear Calc Estimated GFR Random Glucose (60-115) mg/dL Lactic Acid (0.5-2.0) mmol/L Calcium (8.4-10.2) mg/dL Total Bilirubin (0.0-1.0) mg/dL AST (5-37) U/L ALT (0-40) U/L Alkaline Phosphatase (39-117) U/L Troponin I High Sens < 3.5 (<3.5-35.0) ng/L Total Protein (6.5-8.0) g/dL Albumin (3.5-5.0) g/dL Lipase (8-78) U/L Urine Color YELLOW Urine Appearance CLEAR Urine pH 6.0 (5.0-8.0) Ur Specific [place] 1.010 (1.005-1.025) Urine Protein NEG (NEG-TRACE) MG/DL Urine Glucose (UA) NEG (NEG) MG/DL Urine Ketones NEG (NEG) MG/DL Urine Blood NEG (NEG) Urine Nitrite NEG (NEG) Ur Leukocyte Esterase NEG (NEG) Urine Opiates Screen (Not Detect) Urine Fentanyl Screen (Not Detect) Ur Barbiturates Screen (Not Detect) Ur Phencyclidine Scrn (Not Detect) Ur Amphetamines Screen (Not Detect) U Benzodiazepines Scrn (Not Detect) Urine Cocaine Screen (Not Detect) U Marijuana (THC) Screen (Not Detect) Ethyl Alcohol < 10 mg/dL 06/21/21 Range/Units 17:41 WBC (4.8-10.8) X10*3/uL RBC (4.60-5.80) X10*6/uL Hgb (14.0-18.0) g/dl Hct (42-52) % MCV (80-98) fL MCH (27.0-33.0) pg MCHC (31.0-36.0) g/dl RDW (11.0-16.0) % Plt Count (160-400) X10*3/uL MPV (9.4-12.4) fL Immature Gran % (Auto) (0.0-0.4) % Neut % (Auto) (45-73) % Lymph % (Auto) (20-40) % [place] % (Auto) (2-11) % Eos % (Auto) (0-4) % Baso % (Auto) (0-2) % Lymph # (Auto) (1.2-4.9) X10*3/uL [place] # (Auto) (0.1-1.2) X10*3/uL Eos # (Auto) (0.0-0.4) X10*3/uL Baso # (Auto) (0.0-0.2) X10*3/uL Abs Immat Gran (auto) (0.00-0.03) X10*3/uL Absolute Neuts (auto) (2.0-8.3) X10*3/uL Absolute Nucleated RBC (0.0-0.012) X10*3/uL Nucleated RBC % (auto) (0.0-0.2) /100WBC Sodium (135-145) mmol/L Potassium (3.3-5.1) mmol/L Chloride (96-108) mmol/L Carbon Dioxide (22-29) mmol/L Anion Gap (12-20) BUN (9-16) mg/dL Creatinine (0.5-1.4) mg/dL Estim Creat Clear Calc Estimated GFR Random Glucose (60-115) mg/dL Lactic Acid (0.5-2.0) mmol/L Calcium (8.4-10.2) mg/dL Total Bilirubin (0.0-1.0) mg/dL AST (5-37) U/L ALT (0-40) U/L Alkaline Phosphatase (39-117) U/L Troponin I High Sens (<3.5-35.0) ng/L Total Protein (6.5-8.0) g/dL Albumin (3.5-5.0) g/dL Lipase (8-78) U/L Urine Color Urine Appearance Urine pH (5.0-8.0) Ur Specific [place] (1.005-1.025) Urine Protein (NEG-TRACE) MG/DL Urine Glucose (UA) (NEG) MG/DL Urine Ketones (NEG) MG/DL Urine Blood (NEG) Urine Nitrite (NEG) Ur Leukocyte Esterase (NEG) Urine Opiates Screen Not Detected (Not Detect) Urine Fentanyl Screen Not Detected (Not Detect) Ur Barbiturates Screen Not Detected (Not Detect) Ur Phencyclidine Scrn Not Detected (Not Detect) Ur Amphetamines Screen Not Detected (Not Detect) U Benzodiazepines Scrn Not Detected (Not Detect) Urine Cocaine Screen Not Detected (Not Detect) U Marijuana (THC) Screen Not Detected (Not Detect) Ethyl Alcohol mg/dL Discharge Plan Discharge Clinical Impression: Abdominal pain, Depression with suicidal ideation Patient Disposition: Home, Self-Care Additional Instructions: Your laboratory evaluation was unremarkable. For your abdominal pain take ibuprofen 200 mg pills, 2 pills every 6 hours as needed for pain. You can also take Tylenol (acetaminophen) 500 mg pills, 2 pills every 4 to 6 ho urs as needed for pain. You are evaluated by N and we are discharging you back to the shelter. You should discuss getting further physical therapy for your legs with your doctor at the shelter. Follow-up with your doctor in 2 days. Please return to the emergency department if your symptoms get worse or if you develop any symptoms that are concerning to you. Prescriptions: No Action dexlansoprazole [Dexilant] 60 mg capsule,biphase delayed releas 60 mg PO DAILY Qty: 28 RF: 11 cholecalciferol (vitamin D3) 25 mcg (1,000 unit) tablet 25 mcg PO DAILY Qty: 28 RF: 11 hydralazine 50 mg tablet 50 mg PO BID 90 Days Qty: 180 RF: 2 acetaminophen 325 mg tablet 650 mg PO Q4H PRN (Reason: fever or pain) 90 Days Qty: 180 RF: 2 propranolol 20 mg tablet 20 mg PO TID 90 Days Qty: 270 RF: 1 furosemide 20 mg tablet 20 mg PO QAM Qty: 28 RF: 3 aspirin [Ecotrin Low Strength] 81 mg Tablet,Delayed Release (Dr/Ec) 81 mg PO DAILY RF: 0 divalproex [Depakote ER] 500 mg Tablet Extended Release 24 Hr 1,000 mg PO BID RF: 0 Citrucel 500 mg Tablet 500 mg PO DAILY RF: 0 dicyclomine 20 mg Tablet 20 mg PO QID PRN (Reason: Cramps) RF: 0 fluticasone propionate 50 mcg/actuation spray,suspension 1 spray intranasal BID RF: 0 atorvastatin 10 mg tablet 10 mg PO BEDTIME RF: 0 fluticasone propion-salmeterol [Advair Diskus] 250-50 mcg/dose blister with device 1 puff inhalation BID RF: 0 cyanocobalamin (vitamin B-12) 1,000 mcg tablet 1,000 mcg PO DAILY@1999 RF: 0 urea 15 gram powder in packet 1 packet PO BID Qty: 60 RF: 0 (DME) OneTouch Ultra Test Strip See Rx Instructions ea Not Applicable TID Qty: 10 RF: 0 demeclocycline 300 mg tablet 300 mg PO BID RF: 0 amlodipine [Norvasc] 5 mg tablet 5 mg PO DAILY RF: 0 risperidone 3 mg tablet 3 mg PO BID RF: 0 gabapentin 100 mg capsule 100 mg PO BID RF: 0 metformin 500 mg tablet 500 mg PO BID Qty: 60 RF: 3 lisinopril 20 mg tablet 20 mg PO DAILY RF: 0
[2021-06-21 17:18] LABS: Lactic Acid 1.9 mmol/L (0.5-2.0)
[2021-06-21 17:21] LABS: Ethanol < 10 mg/dL
[2021-06-21 17:24] LABS: Alanine Aminotransferase 14 U/L (0-40); Albumin Level 3.9 g/dL (3.5-5.0); Alkaline Phosphatase 63 U/L (39-117); Anion Gap 15 (12-20); Aspartate Amino Transferase 19 U/L (5-37); Bilirubin Total 0.2 mg/dL (0.0-1.0); Blood Urea Nitrogen 48 mg/dL (9-16); Calcium 9.2 mg/dL (8.4-10.2); Carbon Dioxide 23 mmol/L (22-29); Chloride 99 mmol/L (96-108); Creatinine Clr Calc Pharmacy 79.3; Estimated Glomerular Filt Rate > 60; Glucose Random 155 mg/dL (60-115); Lipase 64 U/L (8-78); Potassium 4.7 mmol/L (3.3-5.1); Sodium 132 mmol/L (135-145); Total Protein 6.7 g/dL (6.5-8.0)
[2021-06-21 17:28] LABS: Troponin-I High Sensitivity < 3.5 ng/L (<3.5-35.0)
[2021-06-21 17:36] VITALS: BP 105/65; PULSE 94; RESP 16; O2SAT 98
[2021-06-21 17:53] LABS: Glucose Urine UA NEG (NEG); Leukocyte Esterase Urine NEG (NEG); Nitrite Urine NEG (NEG); Urine Blood NEG (NEG); Urine Ketones NEG (NEG); Urine Protein NEG (NEG-TRACE)
[2021-06-21 17:54] LABS: Appearance Urine CLEAR; Color Urine YELLOW
[2021-06-21 18:15] LABS: Amphetamine Screen Urine Not Detected (Not Detect); Barbiturates, Urine Not Detected (Not Detect); Benzodiazepines Screen Urine Not Detected (Not Detect); Cannabinoid Screen Urine Not Detected (Not Detect); Cocaine Screen Urine Not Detected (Not Detect); Fentanyl, urine Not Detected (Not Detect); Opiate Screen Urine Not Detected (Not Detect); Phencyclidine Screen Urine Not Detected (Not Detect)
[2021-06-21 18:50] VITALS: BP 109/58; PULSE 84; RESP 16; O2SAT 99
[2021-06-21 21:23] VITALS: PULSE 91; RESP 16; O2SAT 98
[2021-06-21 21:24] VITALS: BP 108/57
[2021-06-21] MEDS: LORazepam 1 MG TABLET 2 MG PO (21:24)
--- NOTE | 2021-06-21 21:26 | PHA.MEDREC ---
Pharmacy Consult ? Medication Reconciliation Pharmacy has completed the medication reconciliation using previous discharge summary. I attempted to contact service net in [place].
--- NOTE | 2021-06-22 01:09 | PC.NURSE ---
[facility] AT BEDSIDE FOR PT EVALUATION.
--- NOTE | 2021-06-22 02:10 | MHC.CARE ---
Pt evaluted by RAFFAELE and cleared. 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
--- NOTE | 2021-06-22 04:40 | PC.NURSE ---
REPORTS THAT PT IS READY FOR DISCHARGE, HAS BEEN MEDICALLY CLEARED AND ALSO CLEARED BY N. PT WILL STAY UNTIL MORNING, STAFF FROM [facility] WILL PICK HIM UP IN THE MORNING.
[2021-06-22 05:04] VITALS: BP 117/66; PULSE 100; RESP 18; TEMP 36.7; O2SAT 100
== END 2021-06-22 08:12 | disposition home or self-care (01) ==
PROVIDERS: Emergency Provider Emergency Medicine Emergency Medical Services
DX: R10.9 Unspecified abdominal pain (principal); F32.9 Major depressive disorder, single episode, unspecified; R07.9 Chest pain, unspecified; R45.851 Suicidal ideations; Z79.02 Long term (current) use of antithrombotics/antiplatelets; Z79.82 Long term (current) use of aspirin; Z79.899 Other long term (current) drug therapy; F41.9 Anxiety disorder, unspecified; Z72.89 Other problems related to lifestyle
CPT/HCPCS: 36415; 80053; 80307; 81003; 82077; 83605; 83690; 84484; 85025; 93005; 99285

== ENCOUNTER 2021-06-22 12:01 | Emergency (ER) | payer MEDICARE, MEDICAID, SELFPAY ==
--- NOTE | 2021-06-22 11:59 | ED.PSYCH ---
HPI - Psych General Stated Complaint: crisis Time Seen by Provider: 06/22/21 12:06 Source: patient, EMS and old records reviewed Mode of arrival: EMS Limitations: no limitations History of Present Illness HPI Narrative: 50 yo male with chronic abdominal pain and chest pain just worked up and also reports SI - just cleared by crisis today around 1am. He does not want to be in his custodial so he repeatedly makes these complaints. EMS notes his HCP did not want him tranferred again to hospital MD complaint: suicidal ideation and feels depressed Onset (ago): week(s) Duration: constant History of same: Yes Relieving factors: none Exacerbating factors: other (stress) Context: significant life stressor Associated psychiatric symptoms: depression and suicidal ideation Associated symptoms: other (chronic chest and abdominal pain) Treatments prior to arrival: none If self harm: admits thoughts of self harm Related Data Home Medications Medication Instructions Recorded Confirmed risperidone 3 mg tablet 3 mg PO BID 09/22/20 06/21/21 atorvastatin 10 mg tablet 10 mg PO BEDTIME 11/28/20 06/21/21 aspirin 81 mg tablet,delayed 81 mg PO DAILY 01/23/21 06/21/21 release (Ecotrin Low Strength) divalproex 500 mg tablet,extended 1,000 mg PO BID 01/23/21 06/21/21 release 24 hr (Depakote ER) fluticasone propionate 50 1 spray INTRANASAL BID 03/05/21 06/21/21 mcg/actuation nasal spray,suspension dicyclomine 20 mg tablet 20 mg PO QID PRN 04/26/21 06/21/21 methylcellulose (laxative) 500 mg 500 mg PO DAILY 04/26/21 06/21/21 tablet (Citrucel) gabapentin 100 mg capsule 100 mg PO BID cap 04/27/21 06/21/21 lisinopril 20 mg tablet 20 mg PO DAILY 04/27/21 06/21/21 cyanocobalamin (vitamin B-12) 1,000 mcg PO DAILY@199905/07/21 06/21/21 1,000 mcg tablet fluticasone 250 mcg-salmeterol 50 1 puff INHALATION BID 05/07/21 06/21/21 mcg/dose blistr powdr for inhalation (Advair Diskus) blood sugar diagnostic (OneTouch #10 ea 06/11/21 Ultra Test) amlodipine 5 mg tablet (Norvasc) 5 mg PO DAILY 06/20/21 06/21/21 demeclocycline 300 mg tablet 300 mg PO BID 06/20/21 06/21/21 Previous Rx's Medication Instructions Recorded dexlansoprazole 60 mg 60 mg PO DAILY #28 cap 11/30/20 capsule,biphase delayed release (Dexilant) cholecalciferol (vitamin D3) 25 25 mcg PO DAILY #28 tab 12/19/20 mcg (1,000 unit) tablet hydralazine 50 mg tablet 50 mg PO BID 90 Days #180 tab 03/12/21 acetaminophen 325 mg tablet 650 mg PO Q4H PRN 90 Days #180 tab 04/27/21 metformin 500 mg tablet 500 mg PO BID #60 tab 04/27/21 propranolol 20 mg tablet 20 mg PO TID 90 Days #270 tab 05/18/21 furosemide 20 mg tablet 20 mg PO QAM #28 tab 06/05/21 urea 15 gram oral powder packet 1 packet PO BID #60 ea 06/05/21 Allergies Allergy/AdvReac Type Severity Reaction Status Date / Time Sulfa (Sulfonamide Allergy Severe LANDEROS Verified 06/20/21 10:35 Antibiotics) ALICAI REACTION, Landeros Alicia trimethoprim Allergy Mild UNKNOWN Verified 06/20/21 10:35 lactose AdvReac Mild STOMACH Verified 06/20/21 10:35 UPSET Review of Systems Review of Systems: Constitutional : No Fever, No Chills ENT/Mouth : No Ear Pain, No Nasal Congestion, No sore throat Eyes: No Eye Pain, No Swelling, No Redness Cardiovascular : pos Chest Pain, No SOB Respiratory : No Cough, No Sputum, No Dyspnea Gastrointestinal : No Nausea, No Vomiting, No Diarrhea, No Hematochezia, No Melena, pos abdominal pain Genitourinary : No Dysuria, No Urinary Frequency, No Hematuria Musculoskeletal : No Myalgias Skin : No Skin Lesions, No rash Neuro : No Weakness, No Numbness, No Paresthesias, No Dizziness, No Headache Psych : positive Anxiety, positive Depression, positive SI no HI Heme/Lymph: No Lymphadenopathy Endocrine : No Polyuria, No Polydipsia All other systems reviewed and are negative [facility] Past Medical History Medical History (Updated 06/22/21 @ 12:11 by Bhavana Loaiza DO) Anemia Anxiety Asthma Cerebellar ataxia Depression Essential hypertension Hyperlipidemia LDL goal <100 Hypertension Hyponatremia Lactose intolerance Mental disability Obesity due to excess calories Peripheral vascular disease Proteinuria Seizure disorder Type 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 Vertigo Surgical History History of orchiectomy Family History Family History Father Myocardial infarction CVD (cardiovascular disease) Diabetes mellitus Mother Diabetes mellitus HTN (hypertension) Brother In good health Sister In good health Social History Social History Household Members: Other Household Members Other:: from custodial Housing: Other Housing Other:: custodial Do you presently have visiting nurse or other home services: Yes Alcohol intake: unknown Patient Tobacco Use Status: Never used Tobacco e-Cigarette/Vaping Use: Never Used Second Hand Smoke Exposure: No Advance Directives Date on File: 05/23/21 service: No Current occupational status: disabled Physical Exam Vital Signs: Appearance: Alert. Oriented X3. No acute distress. Eyes: Pupils equal, round and reactive to light. ENT: Pharynx normal. Neck: Normal inspection. Neck supple. CVS: Normal heart rate and rhythm. Pulses normal. Respiratory: No respiratory distress. Breath sounds normal. Abdomen: Soft and nontender. Skin: Skin warm and dry. Normal skin color. Normal skin turgor. Extremities: No lower extremity edema. No calf ttp Neuro: Oriented X 3. No motor deficit. No sensory deficit. Psych: flat affect, reports SI MDM - Psych MDM Narrative Medical decision making narrative: 50 yo male with chronic mental health issues, repeatedly coming in for abdominal pain and chest pain also c/o SI - just cleared by crisis just had medical workup, this is all secondary gain due to he doesn't like his custodial. Discharge Plan Discharge Clinical Impression: Depression with suicidal ideation Patient Disposition: Home, Self-Care Instructions: Depression (ED) Additional Instructions: return to ED for any worsening symptoms or concerns PLEASE FOLLOW UP WITH OUTPATIENT PROVIDERS Prescriptions: No Action dexlansoprazole [Dexilant] 60 mg capsule,biphase delayed releas 60 mg PO DAILY Qty: 28 RF: 11 cholecalciferol (vitamin D3) 25 mcg (1,000 unit) tablet 25 mcg PO DAILY Qty: 28 RF: 11 hydralazine 50 mg tablet 50 mg PO BID 90 Days Qty: 180 RF: 2 acetaminophen 325 mg tablet 650 mg PO Q4H PRN (Reason: fever or pain) 90 Days Qty: 180 RF: 2 propranolol 20 mg tablet 20 mg PO TID 90 Days Qty: 270 RF: 1 furosemide 20 mg tablet 20 mg PO QAM Qty: 28 RF: 3 aspirin [Ecotrin Low Strength] 81 mg Tablet,Delayed Release (Dr/Ec) 81 mg PO DAILY RF: 0 divalproex [Depakote ER] 500 mg Tablet Extended Release 24 Hr 1,000 mg PO BID RF: 0 Citrucel 500 mg Tablet 500 mg PO DAILY RF: 0 dicyclomine 20 mg Tablet 20 mg PO QID PRN (Reason: Cramps) RF: 0 fluticasone propionate 50 mcg/actuation spray,suspension 1 spray intranasal BID RF: 0 atorvastatin 10 mg tablet 10 mg PO BEDTIME RF: 0 fluticasone propion-salmeterol [Advair Diskus] 250-50 mcg/dose blister with device 1 puff inhalation BID RF: 0 cyanocobalamin (vitamin B-12) 1,000 mcg tablet 1,000 mcg PO DAILY@2000 RF: 0 urea 15 gram powder in packet 1 packet PO BID Qty: 60 RF: 0 (DME) OneTouch Ultra Test Strip See Rx Instructions ea Not Applicable TID Qty: 10 RF: 0 demeclocycline 300 mg tablet 300 mg PO BID RF: 0 amlodipine [Norvasc] 5 mg tablet 5 mg PO DAILY RF: 0 risperidone 3 mg tablet 3 mg PO BID RF: 0 gabapentin 100 mg capsule 100 mg PO BID RF: 0 metformin 500 mg tablet 500 mg PO BID Qty: 60 RF: 3 lisinopril 20 mg tablet 20 mg PO DAILY RF: 0
[2021-06-22 12:03] VITALS: BP 154/68; PULSE 91; O2SAT 100
[2021-06-22 12:04] VITALS: BP 144/80; PULSE 88; RESP 18; TEMP 36.6; O2SAT 98; BMI 33.9
== END 2021-06-22 12:48 | disposition home or self-care (01) ==
LOC: HO.ED 12:25
PROVIDERS: Emergency Provider Emergency Medicine; PCP Internal Medicine
DX: R10.9 Unspecified abdominal pain (principal); R45.851 Suicidal ideations; F32.9 Major depressive disorder, single episode, unspecified; Z72.89 Other problems related to lifestyle
CPT/HCPCS: 99283

== ENCOUNTER 2021-06-22 21:49 | Emergency (ER) | payer MEDICARE, MEDICAID, SELFPAY ==
[2021-06-22 22:02] VITALS: BP 159/92; PULSE 80; RESP 18; TEMP 36.5; O2SAT 96; BMI 33.9
[2021-06-22 22:45] LABS: COVID-19 Test Negative (Negative); IDNOW Serial# 9DD0AD1C
--- NOTE | 2021-06-23 00:03 | MHC.CARE ---
CARE team contacted pt's senior living and spoke to Brenda program review director. Brenda reports that pt was sent here due to pt refusing to eat, drink or take his medications . Pt has been sent here 7 times since April for similar complaints. Pt was d/c this morning and evaluated by [facility] crisis telecommunications support and discharged due to low risk. T/W informed staff that we cannot hold pt at the hospital for refusing to eat or take his mediations. She explains that historically he presents to the ED because of an stomach issue and still complains of the stomach pain, despite being medically cleared this morning. Brenda states that because of his stomach issue per policy they cannot have him in the program. She reports that she contacted the cone worker doctor and was advised to send him back to the ED. Sabra becomes unclear reporting that pt's medications are also not present in the senior living because of a pharmacy error. She reports they have record that his medications were sent to the pharmacy but the pharmacy is stating that they did not receive it. She reports they are to take care of this tomorrow. I discussed with her that pt cannot just board here in the ED and that [facility] [place]. Her hope is that pt can get his medications here. I spoke with provider Vanna Westfall who is also in agreement and that also we cannot force him to take his medications here. When pt arrives here, he typically takes his medications, eats and drinks.Pt is cleared from psych. [employer], Inventory Planner Corwin Hicks. CM is already involved and will follow up to get pt back to his senior living. CARE Team available as needed.
--- NOTE | 2021-06-23 00:31 | MHC.CARE ---
Brenda from [facility] called reporting that they have a staff member that can come pickling grader pt. Pt will be discharged and requesting that pt's medications are sent to the pharmacy.
--- NOTE | 2021-06-23 00:34 | ED_ITS ---
HPI - Psych General Chief Complaint: Psychiatric Symptoms Stated Complaint: ABD PAIN Time Seen by Provider: 06/22/21 23:57 Source: EMS Mode of arrival: EMS Limitations: altered mental status History of Present Illness HPI Narrative: Patient comes [facility] the emergency room from his jail, staff reports that the patient is not eating and taking his medications. Patient was supposed to go to [facility] however the ambulance brought him here. Patient is stable, voices no complaints. Related Data Home Medications Medication Instructions Recorded Confirmed risperidone 3 mg tablet 3 mg PO BID 09/22/20 06/21/21 atorvastatin 10 mg tablet 10 mg PO BEDTIME 11/28/20 06/21/21 aspirin 81 mg tablet,delayed 81 mg PO DAILY 01/23/21 06/21/21 release (Ecotrin Low Strength) divalproex 500 mg tablet,extended 1,000 mg PO BID 01/23/21 06/21/21 release 24 hr (Depakote ER) fluticasone propionate 50 1 spray INTRANASAL BID 03/05/21 06/21/21 mcg/actuation nasal spray,suspension dicyclomine 20 mg tablet 20 mg PO QID PRN 04/26/21 06/21/21 methylcellulose (laxative) 500 mg 500 mg PO DAILY 04/26/21 06/21/21 tablet (Citrucel) gabapentin 100 mg capsule 100 mg PO BID cap 04/27/21 06/21/21 lisinopril 20 mg tablet 20 mg PO DAILY 04/27/21 06/21/21 cyanocobalamin (vitamin B-12) 1,000 mcg PO DAILY@199905/07/21 06/21/21 1,000 mcg tablet fluticasone 250 mcg-salmeterol 50 1 puff INHALATION BID 05/07/21 06/21/21 mcg/dose blistr powdr for inhalation (Advair Diskus) blood sugar diagnostic (OneTouch #10 ea 06/11/21 Ultra Test) amlodipine 5 mg tablet (Norvasc) 5 mg PO DAILY 06/20/21 06/21/21 demeclocycline 300 mg tablet 300 mg PO BID 06/20/21 06/21/21 Previous Rx's Medication Instructions Recorded dexlansoprazole 60 mg 60 mg PO DAILY #28 cap 11/30/20 capsule,biphase delayed release (Dexilant) cholecalciferol (vitamin D3) 25 25 mcg PO DAILY #28 tab 12/19/20 mcg (1,000 unit) tablet hydralazine 50 mg tablet 50 mg PO BID 90 Days #180 tab 03/12/21 acetaminophen 325 mg tablet 650 mg PO Q4H PRN 90 Days #180 tab 04/27/21 metformin 500 mg tablet 500 mg PO BID #60 tab 04/27/21 propranolol 20 mg tablet 20 mg PO TID 90 Days #270 tab 05/18/21 furosemide 20 mg tablet 20 mg PO QAM #28 tab 06/05/21 urea 15 gram oral powder packet 1 packet PO BID #60 ea 06/05/21 bismuth subsalicylate 262 mg 2 tab PO QID 14 Days #112 tab 06/22/21 chewable tablet metronidazole 500 mg tablet 1,000 mg PO BID #56 tab 06/22/21 tetracycline 500 mg capsule 1,000 mg PO Q12H #56 cap 06/22/21 Lactobacillus rhamnosus GG 10 1 cap PO DAILY #20 cap 06/23/21 billion cell capsule (Culturelle) metronidazole 500 mg tablet 1,000 mg PO BID #56 tab 06/23/21 tetracycline 500 mg capsule 1,000 mg PO Q12H #56 cap 06/23/21 Allergies Allergy/AdvReac Type Severity Reaction Status Date / Time Sulfa (Sulfonamide Allergy Severe CHAVEZ Verified 06/20/21 10:35 Antibiotics) ALICIA REACTION, Chavez Alicia trimethoprim Allergy Mild UNKNOWN Verified 06/20/21 10:35 lactose AdvReac Mild STOMACH Verified 06/20/21 10:35 UPSET Review of Systems Review of Systems: Yes Unobtainable due to mental condition PMFSH Past Medical History Medical History Anemia Anxiety Asthma Cerebellar ataxia Depression Essential hypertension Hyperlipidemia LDL goal <100 Hypertension Hyponatremia Lactose intolerance Mental disability Obesity due to excess calories Peripheral vascular disease Proteinuria Seizure disorder Type 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 Vertigo Surgical History History of orchiectomy Family History Family History Father Myocardial infarction CVD (cardiovascular disease) Diabetes mellitus Mother Diabetes mellitus HTN (hypertension) Brother In good health Sister In good health Social History Social History Household Members: Other Household Members Other:: from jail Housing: Other Housing Other:: jail Do you presently have visiting nurse or other home services: Yes Alcohol intake: unknown Patient Tobacco Use Status: Never used Tobacco e-Cigarette/Vaping Use: Never Used Second Hand Smoke Exposure: No Advance Directives: Yes Advance Directives on File: Yes Advance Directives Date on File: 05/23/21 service: No Current occupational status: disabled Physical Exam Vital Signs: Vital Signs: Last Vital Signs Temp 97.7 F 06/22/21 22:02 Pulse 80 06/22/21 22:02 Resp 18 06/22/21 22:02 BP 159/92 H 06/22/21 22:02 Pulse Ox 96 06/22/21 22:02 Body Mass Index 33.9 Const: Other: Appearance: Alert. No acute distress. Eyes: Pupils equal, round and reactive to light. ENT: Pharynx normal. Neck: Normal inspection. Neck supple. No lymph nodes noted. No crepitus CVS: Normal heart rate and rhythm. Pulses normal. Normal S1 and S2 Respiratory: No respiratory distress. Breath sounds normal. No Wheezing. No rales Abdomen: Soft and nontender. No rigidity. No distention. Skin: Skin warm and dry. Normal skin color. Normal skin turgor. Extremities: No lower extremity edema. No lower extremity edema. No Lacerations. No Rash Neuro: At baseline, cranial nerves 2-12 grossly intact Course Course Course Narrative: Patient voices no complaints. We spoke to the patient's jail, they were concerned that his metronidazole in the resecting which was ordered by Gastroenterology was sent to the wrong pharmacy, they state that if we are able to send his medications to a [facility] pharmacy that is 24 hours open, they are willing to take the patient back. Patient has decreased p.o. intake is likely secondary to abdominal pain from H pylori which he has been seen by Gastroenterology. Antibiotics into the patient's pharmacy The care team evaluated the patient, patient being discharged from the care teams perspective MDM - Psych Lab Data Labs: Lab Results 06/22/21 Range/Units 22:21 COVID-19 (MICHAELA) Negative (Negative) COVID-19 Clin Com See Note Discharge Plan Discharge Clinical Impression: Decreased oral intake Patient Disposition: Home, Self-Care Additional Instructions: Please follow-up with your primary care physician tomorrow. If you have any worsening or new symptoms, please return to the emergency room or call 911 Prescriptions: New metronidazole 500 mg tablet 1,000 mg PO BID Qty: 56 RF: 0 tetracycline 500 mg capsule 1,000 mg PO Q12H Qty: 56 RF: 0 Culturelle 10 billion cell capsule 1 cap PO DAILY Qty: 20 RF: 0 No Action dexlansoprazole [Dexilant] 60 mg capsule,biphase delayed releas 60 mg PO DAILY Qty: 28 RF: 11 cholecalciferol (vitamin D3) 25 mcg (1,000 unit) tablet 25 mcg PO DAILY Qty: 28 RF: 11 hydralazine 50 mg tablet 50 mg PO BID 90 Days Qty: 180 RF: 2 acetaminophen 325 mg tablet 650 mg PO Q4H PRN (Reason: fever or pain) 90 Days Qty: 180 RF: 2 propranolol 20 mg tablet 20 mg PO TID 90 Days Qty: 270 RF: 1 furosemide 20 mg tablet 20 mg PO QAM Qty: 28 RF: 3 bismuth subsalicylate 262 mg tablet,chewable 2 tab PO QID 14 Days Qty: 112 RF: 0 metronidazole 500 mg tablet 1,000 mg PO BID Qty: 56 RF: 0 tetracycline 500 mg capsule 1,000 mg PO Q12H Qty: 56 RF: 0 aspirin [Ecotrin Low Strength] 81 mg Tablet,Delayed Release (Dr/Ec) 81 mg PO DAILY RF: 0 divalproex [Depakote ER] 500 mg Tablet Extended Release 24 Hr 1,000 mg PO BID RF: 0 Citrucel 500 mg Tablet 500 mg PO DAILY RF: 0 dicyclomine 20 mg Tablet 20 mg PO QID PRN (Reason: Cramps) RF: 0 fluticasone propionate 50 mcg/actuation spray,suspension 1 spray intranasal BID RF: 0 atorvastatin 10 mg tablet 10 mg PO BEDTIME RF: 0 fluticasone propion-salmeterol [Advair Diskus] 250-50 mcg/dose blister with device 1 puff inhalation BID RF: 0 cyanocobalamin (vitamin B-12) 1,000 mcg tablet 1,000 mcg PO DAILY@2000 RF: 0 urea 15 gram powder in packet 1 packet PO BID Qty: 60 RF: 0 (DME) [id number]Touch Ultra Test Strip See Rx Instructions ea Not Applicable TID Qty: 10 RF: 0 demeclocycline 300 mg tablet 300 mg PO BID RF: 0 amlodipine [Norvasc] 5 mg tablet 5 mg PO DAILY RF: 0 risperidone 3 mg tablet 3 mg PO BID RF: 0 gabapentin 100 mg capsule 100 mg PO BID RF: 0 metformin 500 mg tablet 500 mg PO BID Qty: 60 RF: 3 lisinopril 20 mg tablet 20 mg PO DAILY RF: 0
== END 2021-06-23 01:11 | disposition home or self-care (01) ==
PROVIDERS: Emergency Provider Emergency Medicine; PCP Internal Medicine
DX: R63.8 Other symptoms and signs concerning food and fluid intake (principal); R10.9 Unspecified abdominal pain; I10 Essential (primary) hypertension; E11.9 Type 2 diabetes mellitus without complications; Z20.822 Contact with and (suspected) exposure to COVID-19
CPT/HCPCS: 36415; 87635; 99283

== ENCOUNTER 2021-06-23 11:50 | Emergency (ER) | payer MEDICARE, MEDICAID, SELFPAY ==
[2021-06-23 12:02] VITALS: BP 155/90; PULSE 91; PULSE 92; RESP 16; TEMP 36.6; O2SAT 100; O2SAT 95; BMI 32.0
--- NOTE | 2021-06-23 12:15 | ED_ITS ---
HPI - Psych General Chief Complaint: Psychiatric Symptoms Stated Complaint: SECTION 12 Time Seen by Provider: 06/23/21 12:09 Source: patient and EMS Mode of arrival: EMS Limitations: no limitations History of Present Illness HPI Narrative: 50 y/o male well known to this ER with history of mental delay, behavioral issues who presents back to the ER for the 6th time in two weeks reporting he does not feel safe at his assisted and does not want to live there. He was discharged earlier this morning. He has multiple visits for the same. He has had lab workup several times this summer for reports of chest and abdominal pains. He was reportedly seen by N in the community and is currently and inpatient psychiatric bed search. MD complaint: feels depressed and anxiety Onset (ago): unknown Duration: constant History of same: Yes Relieving factors: none Exacerbating factors: none Context: significant life stressor Associated psychiatric symptoms: depression Treatments prior to arrival: placed on mental health hold Related Data Home Medications Medication Instructions Recorded Confirmed risperidone 3 mg tablet 3 mg PO BID 09/22/20 06/21/21 atorvastatin 10 mg tablet 10 mg PO BEDTIME 11/28/20 06/21/21 aspirin 81 mg tablet,delayed 81 mg PO DAILY 01/23/21 06/21/21 release (Ecotrin Low Strength) divalproex 500 mg tablet,extended 1,000 mg PO BID 01/23/21 06/21/21 release 24 hr (Depakote ER) fluticasone propionate 50 1 spray INTRANASAL BID 03/05/21 06/21/21 mcg/actuation nasal spray,suspension dicyclomine 20 mg tablet 20 mg PO QID PRN 04/26/21 06/21/21 methylcellulose (laxative) 500 mg 500 mg PO DAILY 04/26/21 06/21/21 tablet (Citrucel) gabapentin 100 mg capsule 100 mg PO BID cap 04/27/21 06/21/21 lisinopril 20 mg tablet 20 mg PO DAILY 04/27/21 06/21/21 cyanocobalamin (vitamin B-12) 1,000 mcg PO DAILY@199905/07/21 06/21/21 1,000 mcg tablet fluticasone 250 mcg-salmeterol 50 1 puff INHALATION BID 05/07/21 06/21/21 mcg/dose blistr powdr for inhalation (Advair Diskus) blood sugar diagnostic (OneTouch #10 ea 06/11/21 Ultra Test) amlodipine 5 mg tablet (Norvasc) 5 mg PO DAILY 06/20/21 06/21/21 demeclocycline 300 mg tablet 300 mg PO BID 06/20/21 06/21/21 Lactobacillus rhamnosus GG 10 1 cap PO DAILY 06/23/21 06/23/21 billion cell capsule (Culturelle) metronidazole 500 mg tablet 1,000 mg PO BID 06/23/21 06/23/21 Previous Rx's Medication Instructions Recorded dexlansoprazole 60 mg 60 mg PO DAILY #28 cap 11/30/20 capsule,biphase delayed release (Dexilant) cholecalciferol (vitamin D3) 25 25 mcg PO DAILY #28 tab 12/19/20 mcg (1,000 unit) tablet hydralazine 50 mg tablet 50 mg PO BID 90 Days #180 tab 03/12/21 acetaminophen 325 mg tablet 650 mg PO Q4H PRN 90 Days #180 tab 04/27/21 metformin 500 mg tablet 500 mg PO BID #60 tab 04/27/21 propranolol 20 mg tablet 20 mg PO TID 90 Days #270 tab 05/18/21 furosemide 20 mg tablet 20 mg PO QAM #28 tab 06/05/21 urea 15 gram oral powder packet 1 packet PO BID #60 ea 06/05/21 bismuth subsalicylate 262 mg 2 tab PO QID 14 Days #112 tab 06/22/21 chewable tablet metronidazole 500 mg tablet 1,000 mg PO BID #56 tab 06/22/21 tetracycline 500 mg capsule 1,000 mg PO Q12H #56 cap 06/22/21 Lactobacillus rhamnosus GG 10 1 cap PO DAILY #20 cap 06/23/21 billion cell capsule (Culturelle) metronidazole 500 mg tablet 1,000 mg PO BID #56 tab 06/23/21 tetracycline 500 mg capsule 1,000 mg PO Q12H #56 cap 06/23/21 Allergies Allergy/AdvReac Type Severity Reaction Status Date / Time Sulfa (Sulfonamide Allergy Severe LANDEROS Verified 06/20/21 10:35 Antibiotics) ALICIA REACTION, Landeros Alicia trimethoprim Allergy Mild UNKNOWN Verified 06/20/21 10:35 lactose AdvReac Mild STOMACH Verified 06/20/21 10:35 UPSET Review of Systems Constitutional: Constitutional: Denies chills, Reports difficulty sleeping and Denies fever(s) Eyes: Eyes: Reports no additional eye complaints ENT: Denies dizziness and Denies sore throat Cardiovascular: Cardiovascular: Denies chest pain and Denies dyspnea Respiratory: Respiratory: Denies dyspnea Gastrointestinal: Gastrointestinal: Denies abdominal pain, Denies diarrhea, Denies nausea and Denies vomiting Genitourinary: Genitourinary: Denies dysuria Musculoskeletal: Musculoskeletal: Denies myalgias Integumentary/Breasts: Skin/Breast: Denies rash Neurologic: Denies confusion and Denies dizziness Psychiatric: Psychiatric: Reports anxiety, Reports change in appetite, Denies confusion, Reports depression, Reports anhedonia and Reports paranoia [facility] Past Medical History Medical History Anemia Anxiety Asthma Cerebellar ataxia Depression Essential hypertension Hyperlipidemia LDL goal <100 Hypertension Hyponatremia Lactose intolerance Mental disability Obesity due to excess calories Peripheral vascular disease Proteinuria Seizure disorder Type 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 Vertigo Surgical History History of orchiectomy Family History Family History Father Myocardial infarction CVD (cardiovascular disease) Diabetes mellitus Mother Diabetes mellitus HTN (hypertension) Brother In good health Sister In good health Social History Social History Household Members: Other Household Members Other:: from assisted Housing: Other Housing Other:: assisted Do you presently have visiting nurse or other home services: Yes Alcohol intake: unknown Patient Tobacco Use Status: Never used Tobacco e-Cigarette/Vaping Use: Never Used Second Hand Smoke Exposure: No Advance Directives: Yes Advance Directives on File: Yes Advance Directives Date on File: 05/23/21 service: No Current occupational status: disabled Physical Exam Vital Signs: Vital Signs: Last Vital Signs Temp 97.8 F 06/23/21 12:02 Pulse 92 06/23/21 12:02 Resp 16 06/23/21 12:02 BP 155/90 H 06/23/21 12:02 Pulse Ox 100 06/23/21 12:02 Body Mass Index 32.0 Appearance: Alert. Oriented X3. No acute distress. Eyes: Pupils equal, round and reactive to light. Right eye lateral deviation (chronic) ENT: Pharynx normal. Neck: Normal inspection. Neck supple. CVS: Normal heart rate and rhythm. Pulses normal. Respiratory: No respiratory distress. Breath sounds normal. Abdomen: Soft and nontender. +BS x4 Skin: Skin warm and dry. Normal skin color. Normal skin turgor. No rashes. Extremities: No lower extremity edema. RUE resting tremor Neuro: Oriented X 3. No motor deficit. No sensory deficit. Const: General: No confusion Orientation/consciousness: No confusion Neuro: General: No confusion Course Course Course Narrative: 50 y/o male presenting to the ER for the 6th time in 2 weeks for not wanting to live at his assisted anymore. He was just discharged early this morning. He has no physical complaints at this time. He was reportedly seen by [facility] in the community and is an inpatient bed search. Given his history of hyponatremia will plan to repeat labs per CARE team request. Med rec pending. Reevaluation(s) Reevaluation #1: Sodium now normal. Patient is reporting some anxiety. He states he did not get his medications this morning. Dose of PO risperdone ordered, which is a home med. His complete med rec is pending. His labs show stable pancytopenia. Lytes are stable. He is medically cleared at this time. Physician observation started at 16:45. Patient placed in physician observation because patient is awaiting inpatient psych admission. Seen by [facility] in the community and deemed inpatient level of care. At the time observation was started patient's vital signs were stable. Patient is alert and oriented. Neuro exam is non-focal. CV: RRR and lungs are clear. Will continue to monitor. Consultations Consultation #1: [facility] MDM - Psych Lab Data Result diagrams: 06/23/21 14:17 06/23/21 14:17 Labs: Lab Results 06/23/21 06/23/21 06/23/21 Range/Units 12:41 13:14 14:17 WBC 3.6 L (4.8-10.8) X10*3/uL RBC 3.90 L (4.60-5.80) X10*6/uL Hgb 11.4 L (14.0-18.0) g/dl Hct 34.3 L (42-52) % MCV 87.9 (80-98) fL MCH 29.2 (27.0-33.0) pg MCHC 33.2 (31.0-36.0) g/dl RDW 13.9 (11.0-16.0) % Plt Count 136 L (160-400) X10*3/uL MPV 10.1 (9.4-12.4) fL Immature Gran % (Auto) 0.6 H (0.0-0.4) % Neut % (Auto) 62.4 (45-73) % Lymph % (Auto) 28.1 (20-40) % Granite % (Auto) 6.7 (2-11) % Eos % (Auto) 1.4 (0-4) % Baso % (Auto) 0.8 (0-2) % Lymph # (Auto) 1.0 L (1.2-4.9) X10*3/uL Granite # (Auto) 0.2 (0.1-1.2) X10*3/uL Eos # (Auto) 0.1 (0.0-0.4) X10*3/uL Baso # (Auto) 0.0 (0.0-0.2) X10*3/uL Abs Immat Gran (auto) 0.02 (0.00-0.03) X10*3/uL Absolute Neuts (auto) 2.3 (2.0-8.3) X10*3/uL Absolute Nucleated RBC 0.000 (0.0-0.012) X10*3/uL Nucleated RBC % (auto) 0.0 (0.0-0.2) /100WBC Sodium (135-145) mmol/L Potassium (3.3-5.1) mmol/L Chloride (96-108) mmol/L Carbon Dioxide (22-29) mmol/L Anion Gap (12-20) BUN (9-16) mg/dL Creatinine (0.5-1.4) mg/dL Estim Creat Clear Calc Estimated GFR POC Glucose 98 (60-115) mg/dL Random Glucose (60-115) mg/dL Calcium (8.4-10.2) mg/dL Magnesium (1.6-2.6) mg/dL Total Bilirubin (0.0-1.0) mg/dL Direct Bilirubin (0.0-0.5) mg/dL AST (5-37) U/L ALT (0-40) U/L Alkaline Phosphatase (39-117) U/L Total Protein (6.5-8.0) g/dL Albumin (3.5-5.0) g/dL Ethyl Alcohol mg/dL Coronavirus (PCR) (Negative) COVID-19 (MICHAELA) Cancelled COVID-19 Clin Com Cancelled Influenza Type A (PCR) (Negative) Influenza Type B (PCR) (Negative) RSV RNA Qual (PCR) (Negative) 06/23/21 06/23/21 06/23/21 Range/Units 14:17 14:17 Unknown WBC (4.8-10.8) X10*3/uL RBC (4.60-5.80) X10*6/uL Hgb (14.0-18.0) g/dl Hct (42-52) % MCV (80-98) fL MCH (27.0-33.0) pg MCHC (31.0-36.0) g/dl RDW (11.0-16.0) % Plt Count (160-400) X10*3/uL MPV (9.4-12.4) fL Immature Gran % (Auto) (0.0-0.4) % Neut % (Auto) (45-73) % Lymph % (Auto) (20-40) % Granite % (Auto) (2-11) % Eos % (Auto) (0-4) % Baso % (Auto) (0-2) % Lymph # (Auto) (1.2-4.9) X10*3/uL Granite # (Auto) (0.1-1.2) X10*3/uL Eos # (Auto) (0.0-0.4) X10*3/uL Baso # (Auto) (0.0-0.2) X10*3/uL Abs Immat Gran (auto) (0.00-0.03) X10*3/uL Absolute Neuts (auto) (2.0-8.3) X10*3/uL Absolute Nucleated RBC (0.0-0.012) X10*3/uL Nucleated RBC % (auto) (0.0-0.2) /100WBC Sodium 137 (135-145) mmol/L Potassium 4.8 (3.3-5.1) mmol/L Chloride 103 (96-108) mmol/L Carbon Dioxide 26 (22-29) mmol/L Anion Gap 13 (12-20) BUN 19 H D (9-16) mg/dL Creatinine 1.15 (0.5-1.4) mg/dL Estim Creat Clear Calc 81.6 Estimated GFR > 60 POC Glucose (60-115) mg/dL Random Glucose 234 H D (60-115) mg/dL Calcium 9.6 (8.4-10.2) mg/dL Magnesium 1.7 (1.6-2.6) mg/dL Total Bilirubin 0.5 (0.0-1.0) mg/dL Direct Bilirubin 0.2 (0.0-0.5) mg/dL AST 19 (5-37) U/L ALT 17 (0-40) U/L Alkaline Phosphatase 63 (39-117) U/L Total Protein 6.9 (6.5-8.0) g/dL Albumin 4.0 (3.5-5.0) g/dL Ethyl Alcohol < 10 mg/dL Coronavirus (PCR) NEGATIVE (Negative) COVID-19 (MICHAELA) COVID-19 Clin Com Influenza Type A (PCR) NEGATIVE (Negative) Influenza Type B (PCR) NEGATIVE (Negative) RSV RNA Qual (PCR) NEGATIVE (Negative) Discharge Plan Discharge Clinical Impression: Depression Qualifiers: Depression Type: unspecified Qualified Code(s): F32.9 - Major depressive disorder, single episode, unspecified Prescriptions: No Action dexlansoprazole [Dexilant] 60 mg capsule,biphase delayed releas 60 mg PO DAILY Qty: 28 RF: 11 cholecalciferol (vitamin D3) 25 mcg (1,000 unit) tablet 25 mcg PO DAILY Qty: 28 RF: 11 hydralazine 50 mg tablet 50 mg PO BID 90 Days Qty: 180 RF: 2 acetaminophen 325 mg tablet 650 mg PO Q4H PRN (Reason: fever or pain) 90 Days Qty: 180 RF: 2 propranolol 20 mg tablet 20 mg PO TID 90 Days Qty: 270 RF: 1 furosemide 20 mg tablet 20 mg PO QAM Qty: 28 RF: 3 bismuth subsalicylate 262 mg tablet,chewable 2 tab PO QID 14 Days Qty: 112 RF: 0 metronidazole 500 mg tablet 1,000 mg PO BID Qty: 56 RF: 0 tetracycline 500 mg capsule 1,000 mg PO Q12H Qty: 56 RF: 0 aspirin [Ecotrin Low Strength] 81 mg Tablet,Delayed Release (Dr/Ec) 81 mg PO DAILY RF: 0 divalproex [Depakote ER] 500 mg Tablet Extended Release 24 Hr 1,000 mg PO BID RF: 0 Citrucel 500 mg Tablet 500 mg PO DAILY RF: 0 dicyclomine 20 mg Tablet 20 mg PO QID PRN (Reason: Cramps) RF: 0 fluticasone propionate 50 mcg/actuation spray,suspension 1 spray intranasal BID RF: 0 metronidazole 500 mg tablet 1,000 mg PO BID Qty: 56 RF: 0 tetracycline 500 mg capsule 1,000 mg PO Q12H Qty: 56 RF: 0 Culturelle 10 billion cell capsule 1 cap PO DAILY Qty: 20 RF: 0 atorvastatin 10 mg tablet 10 mg PO BEDTIME RF: 0 fluticasone propion-salmeterol [Advair Diskus] 250-50 mcg/dose blister with device 1 puff inhalation BID RF: 0 cyanocobalamin (vitamin B-12) 1,000 mcg tablet 1,000 mcg PO DAILY@2000 RF: 0 urea 15 gram powder in packet 1 packet PO BID Qty: 60 RF: 0 metronidazole 500 mg tablet 1,000 mg PO BID RF: 0 Culturelle 10 billion cell Capsule 1 cap PO DAILY RF: 0 (DME) OneTouch Ultra Test Strip See Rx Instructions ea Not Applicable TID Qty: 10 RF: 0 demeclocycline 300 mg tablet 300 mg PO BID RF: 0 amlodipine [Norvasc] 5 mg tablet 5 mg PO DAILY RF: 0 risperidone 3 mg tablet 3 mg PO BID RF: 0 gabapentin 100 mg capsule 100 mg PO BID RF: 0 metformin 500 mg tablet 500 mg PO BID Qty: 60 RF: 3 lisinopril 20 mg tablet 20 mg PO DAILY RF: 0
[2021-06-23 12:44] LABS: Glucose, Whole Blood 98 mg/dL (60-115)
[2021-06-23 14:23] LABS: MANUAL DIFF FLAG NO
[2021-06-23 14:28] LABS: Basophils Percent Auto 0.8 % (0-2); Eosinophils Absolute Auto 0.1 X10*3/uL (0.0-0.4); Eosinophils Percent Auto 1.4 % (0-4); Hematocrit 34.3 % (42-52); Hemoglobin 11.4 g/dl (14.0-18.0); Imm Gran Abs Auto 0.02 X10*3/uL (0.00-0.03); Imm Gran Pct Auto 0.6 % (0.0-0.4); Lymphocytes Percent Auto 28.1 % (20-40); Mean Corpuscular HGB Conc 33.2 g/dl (31.0-36.0); Mean Corpuscular Hemoglobin 29.2 pg (27.0-33.0); Mean Corpuscular Volume 87.9 fL (80-98); Mean Platelet Volume 10.1 fL (9.4-12.4); Monocytes Absolute Auto 0.2 X10*3/uL (0.1-1.2); Monocytes Percent Auto 6.7 % (2-11); Neutrophils Absolute Auto 2.3 X10*3/uL (2.0-8.3); Neutrophils Percent Auto 62.4 % (45-73); Platelet Count 136 X10*3/uL (160-400); Red Cell Distribution Width 13.9 % (11.0-16.0); White Blood Count 3.6 X10*3/uL (4.8-10.8)
[2021-06-23 14:48] LABS: Ethanol < 10 mg/dL
[2021-06-23 14:53] LABS: Alanine Aminotransferase 17 U/L (0-40); Alkaline Phosphatase 63 U/L (39-117); Anion Gap 13 (12-20); Aspartate Amino Transferase 19 U/L (5-37); Bilirubin Direct 0.2 mg/dL (0.0-0.5); Bilirubin Total 0.5 mg/dL (0.0-1.0); Blood Urea Nitrogen 19 mg/dL (9-16); Calcium 9.6 mg/dL (8.4-10.2); Carbon Dioxide 26 mmol/L (22-29); Chloride 103 mmol/L (96-108); Creatinine Clr Calc Pharmacy 81.6; Estimated Glomerular Filt Rate > 60; Glucose Random 234 mg/dL (60-115); Magnesium 1.7 mg/dL (1.6-2.6); Potassium 4.8 mmol/L (3.3-5.1); Sodium 137 mmol/L (135-145); Total Protein 6.9 g/dL (6.5-8.0)
[2021-06-23 15:18] LABS: Influenza A PCR NEGATIVE (Negative); Influenza B PCR NEGATIVE (Negative); Resp Syncy Virus RNA Qual PCR NEGATIVE (Negative); SARS COV2 PCR INHOUSE NEGATIVE (Negative)
[2021-06-23] MEDS: risperiDONE 3 MG TABLET PO ×2 (16:51→21:16)
[2021-06-23 17:54] VITALS: BP 155/90; PULSE 92
[2021-06-23] MEDS: amLODIPine Besylate 5 MG TABLET PO (17:54)
[2021-06-23 19:05] LABS: Glucose Urine UA NEG (NEG); Leukocyte Esterase Urine NEG (NEG); Nitrite Urine NEG (NEG); Specific Gravity - Urine 1.015 (1.005-1.025); Urine Blood NEG (NEG); Urine Ketones NEG (NEG); Urine Protein NEG (NEG-TRACE)
[2021-06-23 19:06] LABS: Appearance Urine CLEAR; Color Urine YELLOW
[2021-06-23 19:08] VITALS: BP 155/90; PULSE 92
[2021-06-23] MEDS: lisinopriL 20 MG TABLET PO (19:08)
[2021-06-23 19:33] LABS: Amphetamine Screen Urine Not Detected (Not Detect); Barbiturates, Urine Not Detected (Not Detect); Benzodiazepines Screen Urine Not Detected (Not Detect); Cannabinoid Screen Urine Not Detected (Not Detect); Cocaine Screen Urine Not Detected (Not Detect); Fentanyl, urine Not Detected (Not Detect); Opiate Screen Urine Not Detected (Not Detect); Phencyclidine Screen Urine Not Detected (Not Detect)
[2021-06-23] MEDS: Amoxicillin 500 MG CAPSULE 1000 MG PO (21:14)
[2021-06-23 21:15] VITALS: BP 145/84; PULSE 98
[2021-06-23] MEDS: Gabapentin 100 MG CAPSULE 200 MG PO (21:15)
[2021-06-23] MEDS: Divalproex Sodium ER 500 MG TAB.ER.24H 1000 MG PO (21:15)
[2021-06-23] MEDS: metroNIDAZOLE 500 MG TABLET 1000 MG PO (21:15)
[2021-06-23] MEDS: hydrALAZINE HCl 50 MG TABLET PO (21:15)
[2021-06-23] MEDS: Ferrous Sulfate 324 MG TABLET.DR PO (21:15)
[2021-06-23 21:16] VITALS: BP 145/84; PULSE 98
[2021-06-23] MEDS: metFORMIN HCl 500 MG TABLET PO (21:16)
[2021-06-23] MEDS: Propranolol HCL 20 MG TABLET PO (21:16)
[2021-06-23] MEDS: Urea 15 GM POWDER PO (21:16)
[2021-06-23] MEDS: Bismuth Subsalicylate 262 MG TABLET 524 MG PO (21:16)
[2021-06-23] MEDS: Fluticasone Propionate Nasal 16 GM SPRAY 1 SPRAY NOSTRIL-B (21:17)
--- NOTE | 2021-06-23 22:06 | PC.NURSE ---
Patient stated he doesn't want to go back to his half-way and patient seems afraid that he might get d/c tonight, patient was seen on the floor, security called have checked the camera and video clearly shows patient intentional lowered himself to floor for attention and an attempt to avoid d/c. Patient was helped for toilet, night medication offered/accepted, patient again asked whether he is getting discharge. Patient was notified his disposition of inpatient bed search, VSS, will continue to monitor.
[2021-06-24] VITALS (12 sets, daily range): BP systolic 96–162; BP diastolic 46–93; PULSE 66–94; RESP 14–18; TEMP 36.4; O2SAT 98–99
--- NOTE | 2021-06-24 00:50 | PC.NURSE ---
REPORT FROM [facility], PT TO ROOM #8, PT TRYING TO USE URINAL AND URINATED ALL OVER PANTS, SHEETS, AND GOWN. PT CHG INTO CLEAN GOWN AND FRESH LINENS APPLIED TO BED. PT AWAITING FOR ROOM ASSIGNMENT FOR INPT.
--- NOTE | 2021-06-24 01:22 | PC.NURSE ---
PT UNABLE TO URINATE IN URINAL W/O URINE GOING ALL OVER. PT CHG INTO CLEAN GOWN AND SHEETS AGAIN. WILL CONTINUE TO MONITOR PT.
--- NOTE | 2021-06-24 02:44 | PC.NURSE ---
PT URINATED IN STRETCHER AND PT WAS CLEANED UP.
[2021-06-24] MEDS: Omeprazole 20 MG CAPSULE.DR PO ×2 (06:36→15:28)
[2021-06-24] MEDS: Amoxicillin 500 MG CAPSULE 1000 MG PO ×2 (08:41→20:14)
[2021-06-24] MEDS: Aspirin Enteric Coated 81 MG TABLET.DR PO (08:43)
[2021-06-24] MEDS: hydrALAZINE HCl 50 MG TABLET PO (08:43)
[2021-06-24] MEDS: Furosemide 20 MG TABLET PO (08:44)
[2021-06-24] MEDS: amLODIPine Besylate 5 MG TABLET PO (08:44)
[2021-06-24] MEDS: Cyanocobalamin (Vitamin B-12) 1,000 MCG TABLET 1000 MCG PO (08:44)
[2021-06-24] MEDS: metFORMIN HCl 500 MG TABLET PO ×2 (08:44→20:15)
[2021-06-24] MEDS: Ferrous Sulfate 324 MG TABLET.DR PO ×2 (08:44→20:14)
[2021-06-24] MEDS: Divalproex Sodium ER 500 MG TAB.ER.24H 1000 MG PO ×2 (08:45→20:14)
[2021-06-24] MEDS: Propranolol HCL 20 MG TABLET PO ×2 (08:45→15:29)
[2021-06-24] MEDS: lisinopriL 20 MG TABLET PO (08:45)
[2021-06-24] MEDS: Cholecalciferol (Vitamin D3) 25 MCG TABLET PO (08:46)
[2021-06-24] MEDS: Gabapentin 100 MG CAPSULE 200 MG PO ×2 (08:46→20:14)
[2021-06-24] MEDS: metroNIDAZOLE 500 MG TABLET 1000 MG PO ×2 (08:46→20:14)
[2021-06-24] MEDS: Bismuth Subsalicylate 262 MG TABLET 524 MG PO ×4 (08:46→23:51)
[2021-06-24] MEDS: Atorvastatin Calcium 10 MG TABLET PO (08:46)
[2021-06-24] MEDS: Urea 15 GM POWDER PO ×2 (08:47→23:51)
[2021-06-24] MEDS: risperiDONE 3 MG TABLET PO ×2 (08:48→23:51)
[2021-06-24] MEDS: Fluticasone Propionate Nasal 16 GM SPRAY 1 SPRAY NOSTRIL-B ×2 (09:01→20:16)
--- NOTE | 2021-06-24 09:08 | PC.NURSE ---
Pt eating breakfast, asking about bed placement. Pt states he does not want to go back to his half-way because he does not like it there . He denies SI/HI. Meds given as documented. This database report writer will follow up on pt's plan of care.
--- NOTE | 2021-06-24 09:51 | PC.NURSE ---
Pt remains inpatient bed search. This development writer updated pt on his plan of care. Pt continues to state he does not want to go back to his care home. This development writer clarified his plan for placement.
[2021-06-24] MEDS: Fluticasone/Vilanterol 100/25 BLST.W.DEV 1 PUFF INHALE (12:10)
--- NOTE | 2021-06-24 12:15 | PC.NURSE ---
pt pulled off condom catheter, it was replaced by staff. Pt asking when will he get a bed, this fiction and nonfiction prose writer reminded pt that he is an inpatient bed search. Pt denies SI/HI at this time. Afternoon meds given as documented. Pt resting quietly.
[2021-06-24] MEDS: Lactase TABLET 1 TAB PO (17:45)
--- NOTE | 2021-06-24 19:18 | PC.NURSE ---
Report taken from wojciech Trejo RN resuming care. Pt resting in bed, speaking full sentences in NAD. Pt eating dinner independently. Call olson within reach.
--- NOTE | 2021-06-24 19:32 | PC.NURSE ---
Pt reporting pain to left lower leg after incident in the pod. See Thai William note regarding incident. Pt requesting Tylenol, medicated for pain.
[2021-06-24] MEDS: Acetaminophen 325 MG TABLET 650 MG PO (19:44)
--- NOTE | 2021-06-24 19:45 | PC.NURSE ---
Pt medicated for pain with Tylenol. Ice applied to leg due to discomfort. VSS at this time.
--- NOTE | 2021-06-24 20:19 | PC.NURSE ---
Medicated per MAR with 2100 medications. Propanolol and Hydralazine held due to BP 96/46.
--- NOTE | 2021-06-24 20:47 | PC.NURSE ---
Pharmacy contacted by RANJEET Bueno, regarding remaining 2100 medications not stocked in pyx[facility].
--- NOTE | 2021-06-24 21:04 | PC.NURSE ---
Pt transferred into wheelchair and into 6H as pt continues reporting body pain from being stationary in bed.
--- NOTE | 2021-06-24 22:56 | PC.NURSE ---
Pt assisted back into bed into POC. Pt asking this RN Am I going to stay in the hallway all night?! This RN discussing plan with cash controller to possibly transfer pt back to pod.
--- NOTE | 2021-06-24 23:54 | PC.NURSE ---
Medicated per MAR. Resting in bed at this time.
[2021-06-25] MEDS: Omeprazole 20 MG CAPSULE.DR PO (05:57)
[2021-06-25 06:00] VITALS: RESP 16
--- NOTE | 2021-06-25 06:09 | PC.NURSE ---
Pt sleeping through the night without difficulty. Pt wakes easily, medicated with AM medications per MAR. Pt aware of plan for bedsearch.
[2021-06-25] MEDS: Fluticasone Propionate Nasal 16 GM SPRAY 1 SPRAY NOSTRIL-B (09:23)
[2021-06-25] MEDS: Divalproex Sodium ER 500 MG TAB.ER.24H 1000 MG PO (09:24)
[2021-06-25] MEDS: Lactase TABLET 1 TAB PO ×2 (09:24→14:01)
[2021-06-25] MEDS: Urea 15 GM POWDER PO (09:24)
[2021-06-25] MEDS: Aspirin Enteric Coated 81 MG TABLET.DR PO (09:24)
[2021-06-25] MEDS: Furosemide 20 MG TABLET PO (09:24)
[2021-06-25] MEDS: Atorvastatin Calcium 10 MG TABLET PO (09:24)
[2021-06-25] MEDS: metroNIDAZOLE 500 MG TABLET 1000 MG PO (09:24)
[2021-06-25] MEDS: Cyanocobalamin (Vitamin B-12) 1,000 MCG TABLET 1000 MCG PO (09:24)
[2021-06-25 09:25] VITALS: BP 122/57; PULSE 83
[2021-06-25] MEDS: hydrALAZINE HCl 50 MG TABLET PO (09:25)
[2021-06-25] MEDS: amLODIPine Besylate 5 MG TABLET PO (09:25)
[2021-06-25] MEDS: risperiDONE 3 MG TABLET PO (09:25)
[2021-06-25] MEDS: metFORMIN HCl 500 MG TABLET PO (09:25)
[2021-06-25] MEDS: Ferrous Sulfate 324 MG TABLET.DR PO (09:25)
[2021-06-25] MEDS: Propranolol HCL 20 MG TABLET PO ×2 (09:25→14:01)
[2021-06-25] MEDS: Amoxicillin 500 MG CAPSULE 1000 MG PO (09:25)
[2021-06-25 09:26] VITALS: BP 122/57; PULSE 83
[2021-06-25] MEDS: Bismuth Subsalicylate 262 MG TABLET 524 MG PO ×2 (09:26→14:01)
[2021-06-25] MEDS: Cholecalciferol (Vitamin D3) 25 MCG TABLET PO (09:26)
[2021-06-25] MEDS: Gabapentin 100 MG CAPSULE 200 MG PO (09:26)
[2021-06-25] MEDS: lisinopriL 20 MG TABLET PO (09:26)
--- NOTE | 2021-06-25 12:53 | PC.NURSE ---
spoke with RAFFAELE who stated that [facility] is looking to take on the patient pending his home medications and discussion with the patients detention. RAFFAELE to call [facility] when they know if the facility will either deny or accept him.
--- NOTE | 2021-06-25 13:34 | PC.NURSE ---
cassidy looking at pt, waiting for [facility] meds to [facility]
[2021-06-25 14:00] VITALS: BP 107/56; PULSE 80; O2SAT 96
[2021-06-25 14:01] VITALS: BP 107/56; PULSE 80
--- NOTE | 2021-06-25 14:51 | PC.NURSE ---
plan for pt to go to [facility] for 6
== END 2021-06-25 16:39 ==
PROVIDERS: Physician Assistant; Emergency Provider Emergency Medicine; PCP Internal Medicine
DX: F32.9 Major depressive disorder, single episode, unspecified (principal); F41.9 Anxiety disorder, unspecified; Z20.822 Contact with and (suspected) exposure to COVID-19; I10 Essential (primary) hypertension; E78.5 Hyperlipidemia, unspecified; E11.9 Type 2 diabetes mellitus without complications; J45.909 Unspecified asthma, uncomplicated; Z72.89 Other problems related to lifestyle; Z79.02 Long term (current) use of antithrombotics/antiplatelets; Z79.82 Long term (current) use of aspirin; Z79.899 Other long term (current) drug therapy
CPT/HCPCS: 0241U; 36415; 80048; 80076; 80307; 81003; 82077; 82947; 83735; 85025; 87635; 99285

== ENCOUNTER 2021-07-28 11:43 | Emergency (ER) | payer MEDICARE, MEDICAID, SELFPAY ==
--- NOTE | ~2021-07-28 | CT_ITS ---
EXAMINATION: CT CERVICAL SPINE WITHOUT CONTRAST CLINICAL INFORMATION: Fall. Pain. COMPARISON: None TECHNIQUE: Axial images through the cervical spine without contrast. Sagittal and coronal reconstructions on the technologist workstation were performed. Patient dose 4 7 1 mg/cm This CT examination was performed using dose optimization techniques as appropriate, variously including the following: *Automated exposure control *Adjustment of mA and/or kV according to patient size (this includes techniques or standardized protocols for targeted exams where dose is matched to indication/reason for exam; i.e. extremities or head) *Use of iterative reconstruction technique DLP: 471 mGy-cm FINDINGS: Bone alignment is normal. No fracture or dislocation is seen. There is degenerative spondylosis at C3-C4, C4-C5 and C6-C7. Disc spaces are normal. Prevertebral soft tissues are normal. There is bilateral carotid calcification. The visualized lung apices are clear. CT/CT cervical spine wo con IMPRESSION: Mild degenerative changes. No fracture or dislocation seen.
--- NOTE | ~2021-07-28 | CT_ITS ---
EXAMINATION: CT HEAD WITHOUT CONTRAST CLINICAL INFORMATION: Fall COMPARISON: CT head May 2021 TECHNIQUE: Contiguous axial imaging was performed from the skull base to vertex without intravenous administration of contrast. This CT examination was performed using dose optimization techniques as appropriate, variously including the following: *Automated exposure control *Adjustment of mA and/or kV according to patient size (this includes techniques or standardized protocols for targeted exams where dose is matched to indication/reason for exam; i.e. extremities or head) *Use of iterative reconstruction technique DLP: 800 mGy-cm FINDINGS: There is no evidence of acute intracranial hemorrhage or territorial infarction. No abnormal mass effect or midline shift is seen. Shell to white matter differentiation is well preserved. No extra-axial fluid collections are identified. The ventricles are normal in size. There is no abnormal attenuation within the brain parenchyma. The osseous structures and soft tissues are normal. The mastoid air cells and visualized portions of the paranasal sinuses are well aerated. CT/CT head/brain wo con IMPRESSION: No acute intracranial pathology.
--- NOTE | 2021-07-28 11:52 | ED.FALL ---
HPI - Fall General Chief Complaint: Fall Stated Complaint: fall Time Seen by Provider: 07/28/21 11:47 Source: patient and EMS Mode of arrival: EMS Limitations: no limitations History of Present Illness HPI Narrative: 50 y/o male with history of metal delay with behavioral issues, HTN, DM, recurrent falls, hyponatremia, recent inpatient psych admission at [facility] who presents to the ED via EMS from his residential with 2 mechanical falls today. EMS reports he hit the back of his head on a counter when he was trying to get up out of a wheelchair today. He did not lose consciousness. He is not on anticoagulation. He also reports suicidal ideation at this time which he has extensive history of. MD complaint: fall Onset (ago): minute(s) Fall from: wheelchair Fall witnessed: yes, by living facility staff Place fall occurred: home Loss of consciousness: none Prolonged down time: no Symptoms prior to fall: none Context: history of frequent falls Location of injury: head and neck Severity: moderate Severity scale (1-10): 5 Quality: aching Associated symptoms (after fall): headache and neck pain Related Data Home Medications Medication Instructions Recorded Confirmed risperidone 3 mg tablet 3 mg PO BID 09/22/20 06/21/21 atorvastatin 10 mg tablet 10 mg PO BEDTIME 11/28/20 06/21/21 aspirin 81 mg tablet,delayed 81 mg PO DAILY 01/23/21 06/23/21 release (Ecotrin Low Strength) divalproex 500 mg tablet,extended 1,000 mg PO BID 01/23/21 06/21/21 release 24 hr (Depakote ER) fluticasone propionate 50 1 spray INTRANASAL BID 03/05/21 06/21/21 mcg/actuation nasal spray,suspension dicyclomine 20 mg tablet 20 mg PO QID PRN 04/26/21 06/21/21 methylcellulose (laxative) 500 mg 500 mg PO DAILY 04/26/21 06/21/21 tablet (Citrucel) gabapentin 100 mg capsule 100 mg PO BID cap 04/27/21 06/21/21 lisinopril 20 mg tablet 20 mg PO DAILY 04/27/21 06/21/21 cyanocobalamin (vitamin B-12) 1,000 mcg PO DAILY@199905/07/21 06/21/21 1,000 mcg tablet fluticasone 250 mcg-salmeterol 50 1 puff INHALATION BID 05/07/21 06/23/21 mcg/dose blistr powdr for inhalation (Advair Diskus) blood sugar diagnostic (OneTouch #10 ea 06/11/21 Ultra Test) amlodipine 5 mg tablet (Norvasc) 5 mg PO DAILY 06/20/21 06/23/21 demeclocycline 300 mg tablet 300 mg PO BID 06/20/21 06/21/21 Cyanacobalamin 1 tab PO DAILY 06/23/21 06/23/21 Lactobacillus rhamnosus GG 10 1 cap PO DAILY 06/23/21 06/23/21 billion cell capsule (Culturelle) Reguloid (psyllium husk) 0.5 g PO DAILY 06/23/21 06/23/21 atorvastatin 10 mg tablet 1 tab PO DAILY 06/23/21 06/23/21 divalproex 500 mg tablet,extended 2 tab PO BID 06/23/21 06/23/21 release 24 hr ferrous sulfate 325 mg (65 mg 325 mg PO BID 06/23/21 06/23/21 iron) tablet fluticasone 250 mcg-salmeterol 50 1 puff INHALATION BID 06/23/21 06/23/21 mcg/dose blistr powdr for inhalation (Advair Diskus) fluticasone propionate 50 1 spray INTRANASAL BID 06/23/21 06/23/21 mcg/actuation nasal spray,suspension gabapentin 100 mg capsule 2 cap PO BID 06/23/21 06/23/21 lactase 3,000 unit tablet (Lactaid) 3,000 unit PO TIDWM 06/23/21 06/23/21 lisinopril 20 mg tablet 1 tab PO DAILY 06/23/21 06/23/21 metformin 500 mg tablet 500 mg PO BID 06/23/21 06/23/21 metronidazole 500 mg tablet 1,000 mg PO BID 06/23/21 06/23/21 risperidone 3 mg tablet 1 tab PO BID 06/23/21 06/23/21 urea 15 gram oral powder packet 1 packet PO BID 06/23/21 06/23/21 (Ure-Na) Previous Rx's Medication Instructions Recorded dexlansoprazole 60 mg 60 mg PO DAILY #28 cap 11/30/20 capsule,biphase delayed release (Dexilant) cholecalciferol (vitamin D3) 25 25 mcg PO DAILY #28 tab 02/09/21 mcg (1,000 unit) tablet hydralazine 50 mg tablet 50 mg PO BID 90 Days #180 tab 03/12/21 acetaminophen 325 mg tablet 650 mg PO Q4H PRN 90 Days #180 tab 04/27/21 metformin 500 mg tablet 500 mg PO BID #60 tab 04/27/21 propranolol 20 mg tablet 20 mg PO TID 90 Days #270 tab 05/18/21 furosemide 20 mg tablet 20 mg PO QAM #28 tab 06/05/21 urea 15 gram oral powder packet 1 packet PO BID #60 ea 06/05/21 bismuth subsalicylate 262 mg 2 tab PO QID 14 Days #112 tab 06/22/21 chewable tablet metronidazole 500 mg tablet 1,000 mg PO BID #56 tab 06/22/21 tetracycline 500 mg capsule 1,000 mg PO Q12H #56 cap 06/22/21 Lactobacillus rhamnosus GG 10 1 cap PO DAILY #20 cap 06/23/21 billion cell capsule (Culturelle) metronidazole 500 mg tablet 1,000 mg PO BID #56 tab 06/23/21 tetracycline 500 mg capsule 1,000 mg PO Q12H #56 cap 06/23/21 neomycin-bacitracn Zn-polymyx 3.5 1 appl TOPICAL BID #14.2 g 07/25/21 mg-400 unit-5,000 unit/gram top oint (Triple Antibiotic) Allergies Allergy/AdvReac Type Severity Reaction Status Date / Time Sulfa (Sulfonamide Allergy Severe LANDEROS Verified 06/20/21 10:35 Antibiotics) ALICIA REACTION, Landeros Alicia trimethoprim Allergy Mild UNKNOWN Verified 06/20/21 10:35 lactose AdvReac Mild STOMACH Verified 06/20/21 10:35 UPSET Review of Systems Constitutional: Constitutional: Denies chills, Denies fever(s), Reports frequent falls and Reports headache(s) Eyes: Eyes: Reports no additional eye complaints ENT: Reports Normal hearing present, Denies otalgia, Denies facial pain, Reports headache(s), Reports neck pain, Denies sore throat and Denies tongue swelling Cardiovascular: Cardiovascular: Denies chest pain and Denies dyspnea Respiratory: Respiratory: Denies cough and Denies dyspnea Gastrointestinal: Gastrointestinal: Denies abdominal pain, Denies diarrhea, Denies nausea and Denies vomiting Musculoskeletal: Musculoskeletal: Reports myalgias, Denies arthralgias and Reports neck pain Neurologic: Reports Normal hearing present, Reports frequent falls and Reports headache(s) Psychiatric: Psychiatric: Reports anxiety, Reports depression and Reports suicidal ideation Hematologic/Lymphatic: Hematologic/Lymphatic: Denies easy bleeding and Denies easy bruising Allergic/Immunologic: Allergic/Immunologic: Denies tongue swelling PMFSH Past Medical History Medical History Anemia Anxiety Asthma Cerebellar ataxia Depression Essential hypertension Hyperlipidemia LDL goal <100 Hypertension Hyponatremia Lactose intolerance Mental disability Obesity due to excess calories Peripheral vascular disease Proteinuria Seizure disorder Type 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 Vertigo Surgical History History of orchiectomy Family History Family History Father Myocardial infarction CVD (cardiovascular disease) Diabetes mellitus Mother Diabetes mellitus HTN (hypertension) Brother In good health Sister In good health Social History Social History Household Members: Other Household Members Other:: from residential Housing: Other Housing Other:: residential Do you presently have visiting nurse or other home services: Yes Alcohol intake: never Patient Tobacco Use Status: Never used Tobacco e-Cigarette/Vaping Use: Never Used Second Hand Smoke Exposure: No Advance Directives: No Advance Directives Information Provided: No Advance Directives Date on File: 05/23/21 service: No Current occupational status: disabled Physical Exam Vital Signs: Vital Signs: Last Vital Signs Temp 98.0 F 07/28/21 11:55 Pulse 81 07/28/21 11:55 Resp 18 07/28/21 11:55 BP 197/100 H 07/28/21 11:55 Pulse Ox 99 07/28/21 11:55 Body Mass Index 25.8 Appearance: Alert. Oriented X3. No acute distress. Head: atraumatic, normocephalic, no palpable skull fracture Eyes: Pupils equal, round and reactive to light. Lateral strabismus of the right eye ENT: Pharynx normal. Neck: Normal inspection. Neck supple. Cervical spinal tenderness throughtout without deformity, c-collar in place. CVS: Normal heart rate and rhythm. Pulses normal. Respiratory: No respiratory distress. Breath sounds normal. Abdomen: Soft and nontender. +BS x4 Skin: Skin warm and dry. Normal skin color. Normal skin turgor. No rashes. Extremities: No lower extremity edema. Atraumatic x4 Neuro: Oriented X 3. No motor deficit. No sensory deficit. Speaks in complete sentences Neuro: Cranial nerves: Yes Normal hearing present Course Course Course Narrative: 50 y/o male presents to the ER with 2 falls at home - c/o headache and neck pain after head strike. No LOC. Exam is unchanged from his baseline. Will get CT head/neck given his complaints as well as basic labs given his hx falls and hx hyponatremia. His SI is chronic and he has no plan or intent. He is very clear he does not like his residential and this is what makes him depressed. He reports having a case filler who is working on getting him into a new residential. Reevaluation(s) Reevaluation #1: CT head/neck showed no traumatic injuries. Collar removed. No longer having any tenderness on exam, ROM is normal. His lab workup is unremarkable, chronic mild hyponatremia noted which he has a history of. Stable for discharge back to the residential. They are going to come pick him up now. MDM - Fall Lab Data Result diagrams: 07/28/21 12:11 07/28/21 12:11 Labs: Lab Results 07/28/21 07/28/21 07/28/21 Range/Units 12:11 12:11 12:12 WBC 5.5 (4.8-10.8) X10*3/uL RBC 3.93 L (4.60-5.80) X10*6/uL Hgb 11.6 L (14.0-18.0) g/dl Hct 33.9 L (42-52) % MCV 86.3 (80-98) fL MCH 29.5 (27.0-33.0) pg MCHC 34.2 (31.0-36.0) g/dl RDW 14.3 (11.0-16.0) % Plt Count 111 L (160-400) X10*3/uL MPV 9.9 (9.4-12.4) fL Immature Gran % (Auto) 1.1 H (0.0-0.4) % Neut % (Auto) 67.1 (45-73) % Lymph % (Auto) 22.2 (20-40) % [place] % (Auto) 8.3 (2-11) % Eos % (Auto) 0.9 (0-4) % Baso % (Auto) 0.4 (0-2) % Lymph # (Auto) 1.2 (1.2-4.9) X10*3/uL [place] # (Auto) 0.5 (0.1-1.2) X10*3/uL Eos # (Auto) 0.1 (0.0-0.4) X10*3/uL Baso # (Auto) 0.0 (0.0-0.2) X10*3/uL Abs Immat Gran (auto) 0.06 H (0.00-0.03) X10*3/uL Absolute Neuts (auto) 3.7 (2.0-8.3) X10*3/uL Absolute Nucleated RBC 0.000 (0.0-0.012) X10*3/uL Nucleated RBC % (auto) 0.0 (0.0-0.2) /100WBC Smear Tech's Comments Not Reportable Sodium 131 L (135-145) mmol/L Potassium 4.7 (3.3-5.1) mmol/L Chloride 97 (96-108) mmol/L Carbon Dioxide 26 (22-29) mmol/L Anion Gap 13 (12-20) BUN 19 H (9-16) mg/dL Creatinine 0.95 (0.5-1.4) mg/dL Estim Creat Clear Calc 97.1 Estimated GFR > 60 Random Glucose 105 D (60-115) mg/dL Calcium 9.0 D (8.4-10.2) mg/dL Magnesium 1.6 (1.6-2.6) mg/dL COVID-19 (MICHAELA) Negative (Negative) COVID-19 Clin Com See Note Critical Care Time Critical Care Time Critical Care Time: No Discharge Plan Discharge Clinical Impression: Fall Qualifiers: Encounter type: initial encounter Qualified Code(s): W19.XXXA - Unspecified fall, initial encounter Patient Disposition: Home, Self-Care Instructions: Fall Prevention (ED) Additional Instructions: Your CT scans were normal. Your lab workup was unremarkable. Follow up with your doctor as needed. Prescriptions: No Action dexlansoprazole [Dexilant] 60 mg capsule,biphase delayed releas 60 mg PO DAILY Qty: 28 RF: 11 cholecalciferol (vitamin D3) 25 mcg (1,000 unit) tablet 25 mcg PO DAILY Qty: 28 RF: 11 hydralazine 50 mg tablet 50 mg PO BID 90 Days Qty: 180 RF: 2 acetaminophen 325 mg tablet 650 mg PO Q4H PRN (Reason: fever or pain) 90 Days Qty: 180 RF: 2 propranolol 20 mg tablet 20 mg PO TID 90 Days Qty: 270 RF: 1 furosemide 20 mg tablet 20 mg PO QAM Qty: 28 RF: 3 bismuth subsalicylate 262 mg tablet,chewable 2 tab PO QID 14 Days Qty: 112 RF: 0 metronidazole 500 mg tablet 1,000 mg PO BID Qty: 56 RF: 0 tetracycline 500 mg capsule 1,000 mg PO Q12H Qty: 56 RF: 0 Triple Antibiotic 3.5mg-400 unit- 5,000 unit/gram ointment 1 appl topical BID Qty: 14.2 RF: 0 aspirin [Ecotrin Low Strength] 81 mg Tablet,Delayed Release (Dr/Ec) 81 mg PO DAILY RF: 0 divalproex [Depakote ER] 500 mg Tablet Extended Release 24 Hr 1,000 mg PO BID RF: 0 Citrucel 500 mg Tablet 500 mg PO DAILY RF: 0 dicyclomine 20 mg Tablet 20 mg PO QID PRN (Reason: Cramps) RF: 0 fluticasone propionate 50 mcg/actuation spray,suspension 1 spray intranasal BID RF: 0 metronidazole 500 mg tablet 1,000 mg PO BID Qty: 56 RF: 0 tetracycline 500 mg capsule 1,000 mg PO Q12H Qty: 56 RF: 0 Culturelle 10 billion cell capsule 1 cap PO DAILY Qty: 20 RF: 0 atorvastatin 10 mg tablet 10 mg PO BEDTIME RF: 0 fluticasone propion-salmeterol [Advair Diskus] 250-50 mcg/dose blister with device 1 puff inhalation BID RF: 0 cyanocobalamin (vitamin B-12) 1,000 mcg tablet 1,000 mcg PO DAILY@2000 RF: 0 urea 15 gram powder in packet 1 packet PO BID Qty: 60 RF: 0 metronidazole 500 mg tablet 1,000 mg PO BID RF: 0 Culturelle 10 billion cell Capsule 1 cap PO DAILY RF: 0 Ure-Na 15 gram Powder In Packet 1 packet PO BID RF: 0 fluticasone propion-salmeterol [Advair Diskus] 250-50 mcg/dose blister with device 1 puff inhalation BID RF: 0 atorvastatin 10 mg tablet 1 tab PO DAILY RF: 0 Cyanacobalamin 1,000 units 1 tab PO DAILY RF: 0 ferrous sulfate 325 mg (65 mg iron) Tablet 325 mg PO BID RF: 0 fluticasone propionate [Flonase] 50 mcg/actuation Ray,Suspension 1 spray INTRANASAL BID RF: 0 metformin [Glucophage] 500 mg Tablet 500 mg PO BID RF: 0 lactase [Lactaid] 3,000 unit Tablet 3,000 unit PO TIDWM RF: 0 lisinopril 20 mg tablet 1 tab PO DAILY RF: 0 divalproex 500 mg tablet extended release 24 hr 2 tab PO BID RF: 0 gabapentin 100 mg capsule 2 cap PO BID RF: 0 risperidone 3 mg tablet 1 tab PO BID RF: 0 Reguloid (psyllium husk) 0.5 g PO DAILY RF: 0 (DME) OneTouch Ultra Test Strip See Rx Instructions ea Not Applicable TID Qty: 10 RF: 0 demeclocycline 300 mg tablet 300 mg PO BID RF: 0 amlodipine [Norvasc] 5 mg tablet 5 mg PO DAILY RF: 0 risperidone 3 mg tablet 3 mg PO BID RF: 0 gabapentin 100 mg capsule 100 mg PO BID RF: 0 metformin 500 mg tablet 500 mg PO BID Qty: 60 RF: 3 lisinopril 20 mg tablet 20 mg PO DAILY RF: 0 Referrals: Po,Robert Downing MD [Primary Care Provider] - 1 week
[2021-07-28 11:55] VITALS: BP 197/100; PULSE 81; RESP 18; TEMP 36.7; O2SAT 99; BMI 25.8
--- NOTE | 2021-07-28 11:59 | PC.NURSE ---
chronic reported si d/t not wanting to be at [facility]. pt denies active plan or intent.
[2021-07-28] MEDS: amLODIPine Besylate 5 MG TABLET PO (12:24)
[2021-07-28 12:33] LABS: COVID-19 Test Negative (Negative); IDNOW Serial# 9DD0AD1C
[2021-07-28 12:57] LABS: Basophils Percent Auto 0.4 % (0-2); Imm Gran Abs Auto 0.06 X10*3/uL (0.00-0.03); Imm Gran Pct Auto 1.1 % (0.0-0.4); MANUAL DIFF FLAG SCAN; PLT CLUMP 1; Red Blood Count 3.93 X10*6/uL (4.60-5.80); Red Cell Distribution Width 14.3 % (11.0-16.0); SCAN SMEAR FLAG 1
[2021-07-28 12:58] LABS: Eosinophils Absolute Auto 0.1 X10*3/uL (0.0-0.4); Eosinophils Percent Auto 0.9 % (0-4); Hematocrit 33.9 % (42-52); Hemoglobin 11.6 g/dl (14.0-18.0); Lymphocytes Absolute Auto 1.2 X10*3/uL (1.2-4.9); Lymphocytes Percent Auto 22.2 % (20-40); Mean Corpuscular HGB Conc 34.2 g/dl (31.0-36.0); Mean Corpuscular Hemoglobin 29.5 pg (27.0-33.0); Mean Corpuscular Volume 86.3 fL (80-98); Mean Platelet Volume 9.9 fL (9.4-12.4); Monocytes Absolute Auto 0.5 X10*3/uL (0.1-1.2); Monocytes Percent Auto 8.3 % (2-11); Neutrophils Absolute Auto 3.7 X10*3/uL (2.0-8.3); Neutrophils Percent Auto 67.1 % (45-73); Platelet Count 111 X10*3/uL (160-400); White Blood Count 5.5 X10*3/uL (4.8-10.8)
[2021-07-28 13:13] LABS: Anion Gap 13 (12-20); Blood Urea Nitrogen 19 mg/dL (9-16); Carbon Dioxide 26 mmol/L (22-29); Chloride 97 mmol/L (96-108); Creatinine Clr Calc Pharmacy 97.1; Estimated Glomerular Filt Rate > 60; Glucose Random 105 mg/dL (60-115); Magnesium 1.6 mg/dL (1.6-2.6); Potassium 4.7 mmol/L (3.3-5.1); Sodium 131 mmol/L (135-145)
--- NOTE | 2021-07-28 14:44 | PC.NURSE ---
detention coming now to brain picker pt
== END 2021-07-28 15:30 | disposition home or self-care (01) ==
PROVIDERS: Physician Assistant; Emergency Provider Emergency Medicine; PCP Internal Medicine
DX: S09.90XA Unspecified injury of head, initial encounter (principal); G44.309 Post-traumatic headache, unspecified, not intractable; M54.2 Cervicalgia; I10 Essential (primary) hypertension; E11.9 Type 2 diabetes mellitus without complications; W01.190A Fall on same level from slipping, tripping and stumbling with subsequent striking against furniture, initial encounter; Y93.9 Activity, unspecified; Y92.009 Unspecified place in unspecified non-institutional (private) residence as the place of occurrence of the external cause; Y99.9 Unspecified external cause status; Z20.822 Contact with and (suspected) exposure to COVID-19; Z79.899 Other long term (current) drug therapy
CPT/HCPCS: 36415; 70450; 72125; 80048; 83735; 85025; 87635; 99283; 99284

== ENCOUNTER 2021-07-29 10:00 | Emergency (ER) | payer MEDICARE, MEDICAID, SELFPAY ==
--- NOTE | 2021-07-29 10:10 | ED_ITS ---
HPI - Psych General Chief Complaint: Psychiatric Symptoms Stated Complaint: refused morning meds Time Seen by Provider: 07/29/21 10:04 History of Present Illness HPI Narrative: Patient history of psychiatric illness. Presents today with having suicidal thoughts. Auditory hallucination. Patient hearing voices telling him to trochanter self. Patient refusing medication. Normally on D epakote. No coughing or congestion or upper respiratory symptoms. No nausea no vomiting. Patient is from home. No systemic complaints. Related Data Home Medications Medication Instructions Recorded Confirmed atorvastatin 10 mg tablet 10 mg PO BEDTIME 11/28/20 07/29/21 aspirin 81 mg tablet,delayed 81 mg PO DAILY 01/23/21 07/29/21 release (Ecotrin Low Strength) divalproex 500 mg tablet,extended 1,000 mg PO BID 01/23/21 07/29/21 release 24 hr (Depakote ER) dicyclomine 20 mg tablet 20 mg PO Q6H PRN 04/26/21 07/29/21 methylcellulose (laxative) 500 mg 500 mg PO DAILY 04/26/21 07/29/21 tablet (Citrucel) cyanocobalamin (vitamin B-12) 1,000 mcg PO DAILY@199905/07/21 07/29/21 1,000 mcg tablet amlodipine 5 mg tablet (Norvasc) 5 mg PO DAILY 06/20/21 07/29/21 Reguloid (psyllium husk) 0.5 g PO DAILY 06/23/21 07/29/21 ferrous sulfate 325 mg (65 mg 325 mg PO BID 06/23/21 07/29/21 iron) tablet fluticasone propionate 50 1 spray INTRANASAL BID 06/23/21 07/29/21 mcg/actuation nasal spray,suspension gabapentin 100 mg capsule 200 mg PO BID 06/23/21 07/29/21 lactase 3,000 unit tablet (Lactaid) 3,000 unit PO TIDWM 06/23/21 07/29/21 lisinopril 20 mg tablet 1 tab PO DAILY 06/23/21 07/29/21 metformin 500 mg tablet 500 mg PO BID 06/23/21 07/29/21 risperidone 3 mg tablet 1 tab PO BID 06/23/21 07/29/21 urea 15 gram oral powder packet 1 packet PO BID 08/14/21 09/19/21 (Ure-Na) cholecalciferol (vitamin D3) 25 25 mcg PO DAILY 07/29/21 07/29/21 mcg (1,000 unit) tablet diphenoxylate-atropine 2.5 1 tab PO DAILY 07/29/21 07/29/21 mg-0.025 mg tablet (Lomotil) fluticasone 250 mcg-salmeterol 50 1 puff INHALATION BID 07/29/21 07/29/21 mcg/dose blistr powdr for inhalation (Advair Diskus) ondansetron 4 mg disintegrating 4 mg PO Q6H PRN 07/29/21 07/29/21 tablet simethicone 125 mg chewable tablet 125 mg PO QID PRN 07/29/21 07/29/21 Previous Rx's Medication Instructions Recorded dexlansoprazole 60 mg 60 mg PO DAILY #28 cap 11/30/20 capsule,biphase delayed release (Dexilant) hydralazine 50 mg tablet 50 mg PO BID 90 Days #180 tab 03/12/21 acetaminophen 325 mg tablet 650 mg PO Q4H PRN 90 Days #180 tab 04/27/21 propranolol 20 mg tablet 20 mg PO TID 90 Days #270 tab 05/18/21 furosemide 20 mg tablet 20 mg PO QAM #28 tab 06/05/21 Allergies Allergy/AdvReac Type Severity Reaction Status Date / Time Sulfa (Sulfonamide Allergy Severe CHAVEZ Verified 06/20/21 10:35 Antibiotics) ALICIA REACTION, Chavez Alicia trimethoprim Allergy Mild UNKNOWN Verified 06/20/21 10:35 lactose AdvReac Mild STOMACH Verified 06/20/21 10:35 UPSET Review of Systems Review of Systems: No fever no chills no chest pain or shortness of breath no diaphoresis. All systems reviewed otherwise negative [facility] Past Medical History Attestation statement: The following information was validated with the patient. Medical History Anemia Anxiety Asthma Cerebellar ataxia Depression Essential hypertension Hyperlipidemia LDL goal <100 Hypertension Hyponatremia Lactose intolerance Mental disability Obesity due to excess calories Peripheral vascular disease Proteinuria Seizure disorder Type 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 Vertigo Surgical History History of orchiectomy Family History Family History Father Myocardial infarction CVD (cardiovascular disease) Diabetes mellitus Mother Diabetes mellitus HTN (hypertension) Brother In good health Sister In good health Social History Social History Household Members: Other Household Members Other:: from long term Housing: Other Housing Other:: long term Do you presently have visiting nurse or other home services: Yes Alcohol intake: unknown Patient Tobacco Use Status: Never used Tobacco e-Cigarette/Vaping Use: Never Used Second Hand Smoke Exposure: No Use of substances other than those prescribed or required for medical reasons: Unknown Advance Directives: Yes Advance Directives Information Provided: No Advance Directives on File: No Advance Directives Date on File: 05/23/21 service: No Current occupational status: disabled Physical Exam Vital Signs: Vital Signs: Last Vital Signs Temp 96.2 F L 07/29/21 10:18 Pulse 77 07/29/21 10:18 Resp 18 07/29/21 14:00 BP 153/84 H 07/29/21 10:18 Pulse Ox 100 07/29/21 10:18 Body Mass Index 44.2 Appearance: Alert. Oriented X3. No acute distress. Eyes: Pupils equal, round and reactive to light. ENT: Pharynx normal. Neck: Normal inspection. Neck supple. No lymph nodes noted. No crepitus CVS: Normal heart rate and rhythm. Pulses normal. Normal S1 and S2 Respiratory: No respiratory distress. Breath sounds normal. No Wheezing. No rales Abdomen: Soft and nontender. No rigidity. No distention. good BS x4 Skin: Skin warm and dry. Normal skin color. Normal skin turgor. Extremities: No lower extremity edema. Neurovascular intact to all extremities. No Lacerations. No Rash Neuro: Oriented X 3. No motor deficit. No sensory deficit. Moving all extermities. No slurred speech MDM - Psych MDM Narrative Medical decision making narrative: Well-appearing no distress. Awaiting crisis evaluation. Labs are pending. Patient evaluated by crisis. Will discharge back to the long term. Currently in stable condition. No distress. Medical Records Attestation: I reviewed the patient's medical records. Lab Data Attestation: I reviewed the patient's lab results. Result diagrams: 07/29/21 11:00 07/29/21 10:59 Labs: Lab Results 07/29/21 07/29/21 07/29/21 Range/Units 10:59 10:59 11:00 WBC 5.1 (4.8-10.8) X10*3/uL RBC 4.01 L (4.60-5.80) X10*6/uL Hgb 12.1 L (14.0-18.0) g/dl Hct 35.5 L (42-52) % MCV 88.5 (80-98) fL MCH 30.2 (27.0-33.0) pg MCHC 34.1 (31.0-36.0) g/dl RDW 14.5 (11.0-16.0) % Plt Count 115 L (160-400) X10*3/uL MPV 9.5 (9.4-12.4) fL Immature Gran % (Auto) 1.0 H (0.0-0.4) % Neut % (Auto) 64.9 (45-73) % Lymph % (Auto) 25.7 (20-40) % [place] % (Auto) 7.0 (2-11) % Eos % (Auto) 1.0 (0-4) % Baso % (Auto) 0.4 (0-2) % Lymph # (Auto) 1.3 (1.2-4.9) X10*3/uL [place] # (Auto) 0.4 (0.1-1.2) X10*3/uL Eos # (Auto) 0.1 (0.0-0.4) X10*3/uL Baso # (Auto) 0.0 (0.0-0.2) X10*3/uL Abs Immat Gran (auto) 0.05 H (0.00-0.03) X10*3/uL Absolute Neuts (auto) 3.3 (2.0-8.3) X10*3/uL Absolute Nucleated RBC 0.000 (0.0-0.012) X10*3/uL Nucleated RBC % (auto) 0.0 (0.0-0.2) /100WBC Sodium 133 L (135-145) mmol/L Potassium 4.4 (3.3-5.1) mmol/L Chloride 99 (96-108) mmol/L Carbon Dioxide 27 (22-29) mmol/L Anion Gap 11 L (12-20) BUN 25 H (9-16) mg/dL Creatinine 1.04 (0.5-1.4) mg/dL Estim Creat Clear Calc 96.6 Estimated GFR > 60 Random Glucose 107 (60-115) mg/dL Calcium 9.5 (8.4-10.2) mg/dL Valproic Acid 91.7 (50.0-100.0) mcg/mL Ethyl Alcohol < 10 mg/dL COVID-19 (MICHAELA) (Negative) COVID-19 Clin Com 07/29/21 Range/Units 12:01 WBC (4.8-10.8) X10*3/uL RBC (4.60-5.80) X10*6/uL Hgb (14.0-18.0) g/dl Hct (42-52) % MCV (80-98) fL MCH (27.0-33.0) pg MCHC (31.0-36.0) g/dl RDW (11.0-16.0) % Plt Count (160-400) X10*3/uL MPV (9.4-12.4) fL Immature Gran % (Auto) (0.0-0.4) % Neut % (Auto) (45-73) % Lymph % (Auto) (20-40) % [place] % (Auto) (2-11) % Eos % (Auto) (0-4) % Baso % (Auto) (0-2) % Lymph # (Auto) (1.2-4.9) X10*3/uL [place] # (Auto) (0.1-1.2) X10*3/uL Eos # (Auto) (0.0-0.4) X10*3/uL Baso # (Auto) (0.0-0.2) X10*3/uL Abs Immat Gran (auto) (0.00-0.03) X10*3/uL Absolute Neuts (auto) (2.0-8.3) X10*3/uL Absolute Nucleated RBC (0.0-0.012) X10*3/uL Nucleated RBC % (auto) (0.0-0.2) /100WBC Sodium (135-145) mmol/L Potassium (3.3-5.1) mmol/L Chloride (96-108) mmol/L Carbon Dioxide (22-29) mmol/L Anion Gap (12-20) BUN (9-16) mg/dL Creatinine (0.5-1.4) mg/dL Estim Creat Clear Calc Estimated GFR Random Glucose (60-115) mg/dL Calcium (8.4-10.2) mg/dL Valproic Acid (50.0-100.0) mcg/mL Ethyl Alcohol mg/dL COVID-19 (MICHAELA) Negative (Negative) COVID-19 Clin Com See Note Discharge Plan Discharge Patient Disposition: Home, Self-Care Prescriptions: No Action dexlansoprazole [Dexilant] 60 mg capsule,biphase delayed releas 60 mg PO DAILY Qty: 28 RF: 11 hydralazine 50 mg tablet 50 mg PO BID 90 Days Qty: 180 RF: 2 acetaminophen 325 mg tablet 650 mg PO Q4H PRN (Reason: fever or pain) 90 Days Qty: 180 RF: 2 propranolol 20 mg tablet 20 mg PO TID 90 Days Qty: 270 RF: 1 furosemide 20 mg tablet 20 mg PO QAM Qty: 28 RF: 3 aspirin [Ecotrin Low Strength] 81 mg Tablet,Delayed Release (Dr/Ec) 81 mg PO DAILY RF: 0 divalproex [Depakote ER] 500 mg Tablet Extended Release 24 Hr 1,000 mg PO BID RF: 0 Citrucel 500 mg Tablet 500 mg PO DAILY RF: 0 dicyclomine 20 mg Tablet 20 mg PO Q6H PRN (Reason: Cramps) RF: 0 fluticasone propion-salmeterol [Advair Diskus] 250-50 mcg/dose blister with device 1 puff inhalation BID RF: 0 diphenoxylate-atropine [Lomotil] 2.5-0.025 mg Tablet 1 tab PO DAILY RF: 0 simethicone 125 mg Tablet,Chewable 125 mg PO QID PRN (Reason: Abdominal Discomfort) RF: 0 ondansetron 4 mg Tablet,Disintegrating 4 mg PO Q6H PRN (Reason: Nausea) RF: 0 cholecalciferol (vitamin D3) 25 mcg (1,000 unit) tablet 25 mcg PO DAILY RF: 0 atorvastatin 10 mg tablet 10 mg PO BEDTIME RF: 0 cyanocobalamin (vitamin B-12) 1,000 mcg tablet 1,000 mcg PO DAILY@1999 RF: 0 Ure-Na 15 gram Powder In Packet 1 packet PO BID RF: 0 ferrous sulfate 325 mg (65 mg iron) Tablet 325 mg PO BID RF: 0 fluticasone propionate [Flonase] 50 mcg/actuation [place],Suspension 1 spray INTRANASAL BID RF: 0 metformin [Glucophage] 500 mg Tablet 500 mg PO BID RF: 0 lactase [Lactaid] 3,000 unit Tablet 3,000 unit PO TIDWM RF: 0 lisinopril 20 mg tablet 1 tab PO DAILY RF: 0 gabapentin 100 mg capsule 200 mg PO BID RF: 0 risperidone 3 mg tablet 1 tab PO BID RF: 0 Reguloid (psyllium husk) 0.5 g PO DAILY RF: 0 amlodipine [Norvasc] 5 mg tablet 5 mg PO DAILY RF: 0
[2021-07-29 10:14] VITALS: BP 140/90; BP 153/84; PULSE 77; PULSE 80; RESP 18; TEMP 35.7; O2SAT 100; O2SAT 95; BMI 44.2
[2021-07-29 10:18] VITALS: BP 153/84; PULSE 77; RESP 18; TEMP 35.7; O2SAT 100
--- NOTE | 2021-07-29 11:04 | PC.NURSE ---
labs obtained by tech
[2021-07-29 11:08] LABS: MANUAL DIFF FLAG NO
[2021-07-29 11:10] LABS: Basophils Percent Auto 0.4 % (0-2); Eosinophils Absolute Auto 0.1 X10*3/uL (0.0-0.4); Hematocrit 35.5 % (42-52); Hemoglobin 12.1 g/dl (14.0-18.0); Imm Gran Abs Auto 0.05 X10*3/uL (0.00-0.03); Lymphocytes Absolute Auto 1.3 X10*3/uL (1.2-4.9); Lymphocytes Percent Auto 25.7 % (20-40); Mean Corpuscular HGB Conc 34.1 g/dl (31.0-36.0); Mean Corpuscular Hemoglobin 30.2 pg (27.0-33.0); Mean Corpuscular Volume 88.5 fL (80-98); Mean Platelet Volume 9.5 fL (9.4-12.4); Monocytes Absolute Auto 0.4 X10*3/uL (0.1-1.2); Neutrophils Absolute Auto 3.3 X10*3/uL (2.0-8.3); Neutrophils Percent Auto 64.9 % (45-73); Platelet Count 115 X10*3/uL (160-400); Red Blood Count 4.01 X10*6/uL (4.60-5.80); Red Cell Distribution Width 14.5 % (11.0-16.0); White Blood Count 5.1 X10*3/uL (4.8-10.8)
[2021-07-29 11:20] LABS: Ethanol < 10 mg/dL
[2021-07-29 11:26] LABS: Anion Gap 11 (12-20); Blood Urea Nitrogen 25 mg/dL (9-16); Calcium 9.5 mg/dL (8.4-10.2); Carbon Dioxide 27 mmol/L (22-29); Chloride 99 mmol/L (96-108); Creatinine Clr Calc Pharmacy 96.6; Estimated Glomerular Filt Rate > 60; Glucose Random 107 mg/dL (60-115); Potassium 4.4 mmol/L (3.3-5.1); Sodium 133 mmol/L (135-145)
[2021-07-29 11:29] LABS: Valproate 91.7 mcg/mL (50.0-100.0)
--- NOTE | 2021-07-29 11:52 | PC.NURSE ---
patient awake/alert sitting in room watching tv, pt currently calm/compliant, labs obtained,[facility] fax sent, will continue to monitor.
[2021-07-29 12:24] LABS: COVID-19 Test Negative (Negative)
[2021-07-29 14:00] VITALS: RESP 18
--- NOTE | 2021-07-29 14:35 | PC.NURSE ---
madiha from [facility] here to see patient
--- NOTE | 2021-07-29 15:06 | PC.NURSE ---
per Denise, he spoke to the patients [facility] and the patient has the same clinical presentation as he normally does, the patient will be discharged back to the [facility] after he speaks with the provider.
--- NOTE | 2021-07-29 15:18 | PC.NURSE ---
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
== END 2021-07-29 16:40 | disposition home or self-care (01) ==
PROVIDERS: Physician Assistant; Emergency Provider Emergency Medicine Emergency Medical Services; PCP Internal Medicine
DX: R44.0 Auditory hallucinations (principal); R45.851 Suicidal ideations; Z20.822 Contact with and (suspected) exposure to COVID-19; Z79.899 Other long term (current) drug therapy
CPT/HCPCS: 36415; 80048; 80164; 82077; 85025; 87635; 99284; 99285

== ENCOUNTER 2021-08-01 18:09 | Emergency (ER) | payer MEDICARE, MEDICAID, SELFPAY ==
--- NOTE | ~2021-08-01 | XR_ITS ---
EXAMINATION: XR CHEST CLINICAL INFORMATION: Chest pain COMPARISON: 06/15/2021 TECHNIQUE: 2 views of the chest were obtained. FINDINGS: No significant abnormality is noted involving the heart, lungs, mediastinum, bony thorax or soft tissues. Degenerative changes are present in the thoracic spine. XR/XR chest 2V IMPRESSION: No acute intrathoracic
[2021-08-01 18:46] VITALS: BP 141/82; BP 148/68; PULSE 102; PULSE 90; RESP 18; TEMP 36.6; O2SAT 97; BMI 40.1
--- NOTE | 2021-08-01 18:51 | ECG_ITS ---
Test Reason : PSYCH Blood Pressure : / mmHG Vent. Rate : 078 BPM Atrial Rate : 267 BPM P-R Int : 000 ms QRS Dur : 092 ms QT Int : 404 ms P-R-T Axes : 000 013 047 degrees QTc Int : 460 ms Normal sinus rhythm Normal ECG When compared with ECG of 21-JUN-2021 16:56, No significant change was found Referred By: Dalton Mueller Electronically Signed By:LEVI WHITMORE
--- NOTE | 2021-08-01 18:56 | ED.GENADULT ---
HPI - General Adult General Chief complaint: Psychiatric Symptoms Stated complaint: SI/HI, CHEST PAIN Time Seen by Provider: 08/01/21 18:40 Source: patient Mode of arrival: ambulatory Limitations: no limitations History of Present Illness HPI narrative: 50-year-old male presents emergency room complaining of chest pain. Patient made threats a half-way with SI and HI as well. Patient denies cough fever chest pain nausea vomiting diarrhea. Related Data Home Medications Medication Instructions Recorded Confirmed atorvastatin 10 mg tablet 10 mg PO BEDTIME 11/28/20 07/29/21 aspirin 81 mg tablet,delayed 81 mg PO DAILY 01/23/21 07/29/21 release (Ecotrin Low Strength) divalproex 500 mg tablet,extended 1,000 mg PO BID 01/23/21 07/29/21 release 24 hr (Depakote ER) dicyclomine 20 mg tablet 20 mg PO Q6H PRN 04/26/21 07/29/21 methylcellulose (laxative) 500 mg 500 mg PO DAILY 04/26/21 07/29/21 tablet (Citrucel) cyanocobalamin (vitamin B-12) 1,000 mcg PO DAILY@199905/07/21 07/29/21 1,000 mcg tablet amlodipine 5 mg tablet (Norvasc) 5 mg PO DAILY 06/20/21 07/29/21 Reguloid (psyllium husk) 0.5 g PO DAILY 06/23/21 07/29/21 ferrous sulfate 325 mg (65 mg 325 mg PO BID 06/23/21 07/29/21 iron) tablet fluticasone propionate 50 1 spray INTRANASAL BID 06/23/21 07/29/21 mcg/actuation nasal spray,suspension gabapentin 100 mg capsule 200 mg PO BID 06/23/21 07/29/21 lactase 3,000 unit tablet (Lactaid) 3,000 unit PO TIDWM 06/23/21 07/29/21 lisinopril 20 mg tablet 1 tab PO DAILY 06/23/21 07/29/21 metformin 500 mg tablet 500 mg PO BID 06/23/21 07/29/21 risperidone 3 mg tablet 1 tab PO BID 06/23/21 07/29/21 urea 15 gram oral powder packet 1 packet PO BID 06/23/21 07/29/21 (Ure-Na) cholecalciferol (vitamin D3) 25 25 mcg PO DAILY 07/29/21 07/29/21 mcg (1,000 unit) tablet diphenoxylate-atropine 2.5 1 tab PO DAILY 07/29/21 07/29/21 mg-0.025 mg tablet (Lomotil) fluticasone 250 mcg-salmeterol 50 1 puff INHALATION BID 07/29/21 07/29/21 mcg/dose blistr powdr for inhalation (Advair Diskus) ondansetron 4 mg disintegrating 4 mg PO Q6H PRN 07/29/21 07/29/21 tablet simethicone 125 mg chewable tablet 125 mg PO QID PRN 07/29/21 07/29/21 Previous Rx's Medication Instructions Recorded dexlansoprazole 60 mg 60 mg PO DAILY #28 cap 11/30/20 capsule,biphase delayed release (Dexilant) hydralazine 50 mg tablet 50 mg PO BID 90 Days #180 tab 03/12/21 acetaminophen 325 mg tablet 650 mg PO Q4H PRN 90 Days #180 tab 04/27/21 propranolol 20 mg tablet 20 mg PO TID 90 Days #270 tab 05/18/21 furosemide 20 mg tablet 20 mg PO QAM #28 tab 06/05/21 Allergies Allergy/AdvReac Type Severity Reaction Status Date / Time Sulfa (Sulfonamide Allergy Severe CHAVEZ Verified 06/20/21 10:35 Antibiotics) ALICIA REACTION, Chavez Alicia trimethoprim Allergy Mild UNKNOWN Verified 06/20/21 10:35 lactose AdvReac Mild STOMACH Verified 06/20/21 10:35 UPSET Review of Systems Review of Systems: Review of systems: General: Patient denies any fever chills recent illness or falls Musculoskeletal: Denies back pain or body aches or other injuries HEENT: denies headache, runny nose, ear pain Respiratory: denies shortness of breath, cough Cardiovascular: chest pain no palpitations : denies dysuria, frequency Abdomen: no nausea vomiting denies abdominal pain Extremities: no swelling, no pain Skin: no diaphoresis Yes all other systems are reviewed and are negative [facility] Past Medical History Medical History Anemia Anxiety Asthma Cerebellar ataxia Depression Essential hypertension Hyperlipidemia LDL goal <100 Hypertension Hyponatremia Lactose intolerance Mental disability Obesity due to excess calories Peripheral vascular disease Proteinuria Seizure disorder Type 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 Vertigo Surgical History History of orchiectomy Family History Family History Father Myocardial infarction CVD (cardiovascular disease) Diabetes mellitus Mother Diabetes mellitus HTN (hypertension) Brother In good health Sister In good health Social History Social History Household Members: Other Household Members Other:: from half-way Housing: Other Housing Other:: half-way Do you presently have visiting nurse or other home services: Yes Alcohol intake: unknown Patient Tobacco Use Status: Never used Tobacco e-Cigarette/Vaping Use: Never Used Second Hand Smoke Exposure: No Advance Directives: No Advance Directives Information Provided: Yes Advance Directives Date on File: 05/23/21 service: No Current occupational status: disabled Physical Exam Vital Signs: Vital Signs: Last Vital Signs Temp 98.1 F 08/01/21 19:57 Pulse 80 08/01/21 19:57 Resp 16 08/01/21 19:57 BP 127/57 L 08/01/21 19:57 Pulse Ox 98 08/01/21 19:57 Body Mass Index 40.1 General: Well-appearing well-nourished in no signs of distress HEENT: Normocephalic atraumatic Neck: No signs of JVD, no masses no tenderness or lymphadenopathy Cardiovascular: Regular rate and rhythm Respiratory: Clear to auscultation bilaterally Abdomen: Soft nontender no masses Extremities: Normal pedal pulses no signs of edema Skin: Dry warm no rashes Back: No tenderness full ROM Medical Decision Making MDM Narrative Medical decision making narrative: Patient here for SI and HI clinic chest pain cardiac workup negative patient cleared to be evaluated by crisis. Signed out pending crisis evaluation Lab Data Result diagrams: 08/01/21 19:35 08/01/21 19:35 Labs: Lab Results 08/01/21 08/01/21 08/01/21 Range/Units 19:35 19:35 19:35 WBC 5.0 (4.8-10.8) X10*3/uL RBC 3.75 L (4.60-5.80) X10*6/uL Hgb 11.1 L (14.0-18.0) g/dl Hct 33.9 L (42-52) % MCV 90.4 (80-98) fL MCH 29.6 (27.0-33.0) pg MCHC 32.7 (31.0-36.0) g/dl RDW 14.3 (11.0-16.0) % Plt Count 94 L (160-400) X10*3/uL MPV 9.9 (9.4-12.4) fL Immature Gran % (Auto) 0.4 (0.0-0.4) % Neut % (Auto) 59.2 (45-73) % Lymph % (Auto) 29.7 (20-40) % [place] % (Auto) 9.3 (2-11) % Eos % (Auto) 1.0 (0-4) % Baso % (Auto) 0.4 (0-2) % Lymph # (Auto) 1.5 (1.2-4.9) X10*3/uL [place] # (Auto) 0.5 (0.1-1.2) X10*3/uL Eos # (Auto) 0.1 (0.0-0.4) X10*3/uL Baso # (Auto) 0.0 (0.0-0.2) X10*3/uL Abs Immat Gran (auto) 0.02 (0.00-0.03) X10*3/uL Absolute Neuts (auto) 2.9 (2.0-8.3) X10*3/uL Absolute Nucleated RBC 0.000 (0.0-0.012) X10*3/uL Nucleated RBC % (auto) 0.0 (0.0-0.2) /100WBC Sodium 138 (135-145) mmol/L Potassium 4.4 (3.3-5.1) mmol/L Chloride 104 (96-108) mmol/L Carbon Dioxide 27 (22-29) mmol/L Anion Gap 11 L (12-20) BUN 31 H (9-16) mg/dL Creatinine 1.12 (0.5-1.4) mg/dL Estim Creat Clear Calc 100.3 Estimated GFR > 60 Random Glucose 147 H D (60-115) mg/dL Calcium 9.1 (8.4-10.2) mg/dL Troponin I High Sens < 3.5 (<3.5-35.0) ng/L Urine Opiates Screen (Not Detect) Urine Fentanyl Screen (Not Detect) Ur Barbiturates Screen (Not Detect) Ur Phencyclidine Scrn (Not Detect) Ur Amphetamines Screen (Not Detect) U Benzodiazepines Scrn (Not Detect) Urine Cocaine Screen (Not Detect) U Marijuana (THC) Screen (Not Detect) 08/01/21 Range/Units 19:56 WBC (4.8-10.8) X10*3/uL RBC (4.60-5.80) X10*6/uL Hgb (14.0-18.0) g/dl Hct (42-52) % MCV (80-98) fL MCH (27.0-33.0) pg MCHC (31.0-36.0) g/dl RDW (11.0-16.0) % Plt Count (160-400) X10*3/uL MPV (9.4-12.4) fL Immature Gran % (Auto) (0.0-0.4) % Neut % (Auto) (45-73) % Lymph % (Auto) (20-40) % [place] % (Auto) (2-11) % Eos % (Auto) (0-4) % Baso % (Auto) (0-2) % Lymph # (Auto) (1.2-4.9) X10*3/uL [place] # (Auto) (0.1-1.2) X10*3/uL Eos # (Auto) (0.0-0.4) X10*3/uL Baso # (Auto) (0.0-0.2) X10*3/uL Abs Immat Gran (auto) (0.00-0.03) X10*3/uL Absolute Neuts (auto) (2.0-8.3) X10*3/uL Absolute Nucleated RBC (0.0-0.012) X10*3/uL Nucleated RBC % (auto) (0.0-0.2) /100WBC Sodium (135-145) mmol/L Potassium (3.3-5.1) mmol/L Chloride (96-108) mmol/L Carbon Dioxide (22-29) mmol/L Anion Gap (12-20) BUN (9-16) mg/dL Creatinine (0.5-1.4) mg/dL Estim Creat Clear Calc Estimated GFR Random Glucose (60-115) mg/dL Calcium (8.4-10.2) mg/dL Troponin I High Sens (<3.5-35.0) ng/L Urine Opiates Screen Not Detected (Not Detect) Urine Fentanyl Screen Not Detected (Not Detect) Ur Barbiturates Screen Not Detected (Not Detect) Ur Phencyclidine Scrn Not Detected (Not Detect) Ur Amphetamines Screen Not Detected (Not Detect) U Benzodiazepines Scrn Not Detected (Not Detect) Urine Cocaine Screen Not Detected (Not Detect) U Marijuana (THC) Screen Not Detected (Not Detect) ECG Data Attestation: I personally reviewed and interpreted this ECG as follows: Prior ECG tracings: not available for review Interpretation: Rate 78 sinus rhythm with lots of artifact no signs of ischemia normal intervals Q waves inferiorly Scores Heart Score History: -0- slightly suspicious ECG: -0- normal Age: -1- >45 - <65 Risk factory: -0- no risk factors known Troponin: -0- < or = normal limit Score: 1 Risk: 1.7% Discharge Plan Discharge Clinical Impression: Left-sided chest pain, Chronic schizophrenia Patient Disposition: Home, Self-Care Instructions: Schizophrenia (ED), Noncardiac Chest Pain (ED) Prescriptions: No Action dexlansoprazole [Dexilant] 60 mg capsule,biphase delayed releas 60 mg PO DAILY Qty: 28 RF: 11 hydralazine 50 mg tablet 50 mg PO BID 90 Days Qty: 180 RF: 2 acetaminophen 325 mg tablet 650 mg PO Q4H PRN (Reason: fever or pain) 90 Days Qty: 180 RF: 2 propranolol 20 mg tablet 20 mg PO TID 90 Days Qty: 270 RF: 1 furosemide 20 mg tablet 20 mg PO QAM Qty: 28 RF: 3 aspirin [Ecotrin Low Strength] 81 mg Tablet,Delayed Release (Dr/Ec) 81 mg PO DAILY RF: 0 divalproex [Depakote ER] 500 mg Tablet Extended Release 24 Hr 1,000 mg PO BID RF: 0 Citrucel 500 mg Tablet 500 mg PO DAILY RF: 0 dicyclomine 20 mg Tablet 20 mg PO Q6H PRN (Reason: Cramps) RF: 0 fluticasone propion-salmeterol [Advair Diskus] 250-50 mcg/dose blister with device 1 puff inhalation BID RF: 0 diphenoxylate-atropine [Lomotil] 2.5-0.025 mg Tablet 1 tab PO DAILY RF: 0 simethicone 125 mg Tablet,Chewable 125 mg PO QID PRN (Reason: Abdominal Discomfort) RF: 0 ondansetron 4 mg Tablet,Disintegrating 4 mg PO Q6H PRN (Reason: Nausea) RF: 0 cholecalciferol (vitamin D3) 25 mcg (1,000 unit) tablet 25 mcg PO DAILY RF: 0 atorvastatin 10 mg tablet 10 mg PO BEDTIME RF: 0 cyanocobalamin (vitamin B-12) 1,000 mcg tablet 1,000 mcg PO DAILY@1999 RF: 0 Ure-Na 15 gram Powder In Packet 1 packet PO BID RF: 0 ferrous sulfate 325 mg (65 mg iron) Tablet 325 mg PO BID RF: 0 fluticasone propionate [Flonase] 50 mcg/actuation [place],Suspension 1 spray INTRANASAL BID RF: 0 metformin [Glucophage] 500 mg Tablet 500 mg PO BID RF: 0 lactase [Lactaid] 3,000 unit Tablet 3,000 unit PO TIDWM RF: 0 lisinopril 20 mg tablet 1 tab PO DAILY RF: 0 gabapentin 100 mg capsule 200 mg PO BID RF: 0 risperidone 3 mg tablet 1 tab PO BID RF: 0 Reguloid (psyllium husk) 0.5 g PO DAILY RF: 0 amlodipine [Norvasc] 5 mg tablet 5 mg PO DAILY RF: 0
[2021-08-01] MEDS: Aspirin 81 MG TAB.CHEW 324 MG PO (19:13)
--- NOTE | 2021-08-01 19:15 | PC.NURSE ---
medicated per jan. Ekg being completed.
[2021-08-01 19:44] LABS: MANUAL DIFF FLAG NO
[2021-08-01 19:52] LABS: Basophils Percent Auto 0.4 % (0-2); Eosinophils Absolute Auto 0.1 X10*3/uL (0.0-0.4); Hematocrit 33.9 % (42-52); Hemoglobin 11.1 g/dl (14.0-18.0); Imm Gran Abs Auto 0.02 X10*3/uL (0.00-0.03); Imm Gran Pct Auto 0.4 % (0.0-0.4); Lymphocytes Absolute Auto 1.5 X10*3/uL (1.2-4.9); Lymphocytes Percent Auto 29.7 % (20-40); Mean Corpuscular HGB Conc 32.7 g/dl (31.0-36.0); Mean Corpuscular Hemoglobin 29.6 pg (27.0-33.0); Mean Corpuscular Volume 90.4 fL (80-98); Mean Platelet Volume 9.9 fL (9.4-12.4); Monocytes Absolute Auto 0.5 X10*3/uL (0.1-1.2); Monocytes Percent Auto 9.3 % (2-11); Neutrophils Absolute Auto 2.9 X10*3/uL (2.0-8.3); Neutrophils Percent Auto 59.2 % (45-73); Red Blood Count 3.75 X10*6/uL (4.60-5.80); Red Cell Distribution Width 14.3 % (11.0-16.0)
[2021-08-01 19:57] VITALS: BP 127/57; PULSE 80; RESP 16; TEMP 36.7; O2SAT 98
[2021-08-01 20:03] LABS: Anion Gap 11 (12-20); Blood Urea Nitrogen 31 mg/dL (9-16); Calcium 9.1 mg/dL (8.4-10.2); Carbon Dioxide 27 mmol/L (22-29); Chloride 104 mmol/L (96-108); Creatinine Clr Calc Pharmacy 100.3; Estimated Glomerular Filt Rate > 60; Glucose Random 147 mg/dL (60-115); Potassium 4.4 mmol/L (3.3-5.1); Sodium 138 mmol/L (135-145)
[2021-08-01 20:08] LABS: Troponin-I High Sensitivity < 3.5 ng/L (<3.5-35.0)
[2021-08-01 20:11] LABS: Platelet Count 94 X10*3/uL (160-400)
[2021-08-01 20:30] LABS: Amphetamine Screen Urine Not Detected (Not Detect); Barbiturates, Urine Not Detected (Not Detect); Benzodiazepines Screen Urine Not Detected (Not Detect); Cannabinoid Screen Urine Not Detected (Not Detect); Cocaine Screen Urine Not Detected (Not Detect); Fentanyl, urine Not Detected (Not Detect); Opiate Screen Urine Not Detected (Not Detect); Phencyclidine Screen Urine Not Detected (Not Detect)
--- NOTE | 2021-08-01 22:10 | MHC.CM.ED ---
Pt cleared medically and by Care team to return to care home. Care team requested CM to arrange transportation home. alf called by CM to alert them of pt return. 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 Pt transported home by care home personnel.
== END 2021-08-01 22:01 | disposition home or self-care (01) ==
LOC: HO.ED 19:38
PROVIDERS: Emergency Provider Student in an Organized Health Care Education/Training Program
DX: R07.9 Chest pain, unspecified (principal); F20.9 Schizophrenia, unspecified; R45.851 Suicidal ideations; R45.850 Homicidal ideations; Z79.899 Other long term (current) drug therapy
CPT/HCPCS: 36415; 71046; 80048; 80307; 84484; 85025; 93005; 99284

== ENCOUNTER 2021-08-02 16:13 | Outpatient (REF) | payer MEDICARE, MEDICAID, SELFPAY ==
--- NOTE | ~2021-08-02 | XR_ITS ---
EXAMINATION: XR ANKLE, RIGHT CLINICAL INFORMATION: Right ankle pain and stiffness. COMPARISON: 09/01/2012 TECHNIQUE: Attempted but limited AP, lateral, and mortise views of the right ankle. FINDINGS: There is a large amount of soft tissue swelling present about the ankle. No acute fracture or dislocation is evident. Ankle mortise appears intact with a talar tilt of approximately 5 degrees. There is no widening of the medial joint space. The appearance is similar to previous study of 09/01/2012. Achilles and plantar calcaneal spurs present. XR/XR ankle RT min 3V IMPRESSION: Large amount of edema. No acute fracture or dislocation identified. Calcaneal spurs. No significant change from previous study.
[2021-08-02 17:07] LABS: Anion Gap 14 (12-20); Blood Urea Nitrogen 27 mg/dL (9-16); Calcium 9.8 mg/dL (8.4-10.2); Carbon Dioxide 25 mmol/L (22-29); Chloride 107 mmol/L (96-108); Estimated Glomerular Filt Rate > 60; Glucose Random 116 mg/dL (60-115); Magnesium 1.7 mg/dL (1.6-2.6); Potassium 4.4 mmol/L (3.3-5.1); Sodium 142 mmol/L (135-145)
== END 2021-08-02 16:14 | disposition home or self-care (01) ==
LOC: HO.XRAY 16:13
PROVIDERS: PCP Internal Medicine; Visit Provider Nurse Practitioner Family
DX: M25.571 Pain in right ankle and joints of right foot (principal); E83.42 Hypomagnesemia; E87.1 Hypo-osmolality and hyponatremia
CPT/HCPCS: 36415; 73610; 80048; 83735

== ENCOUNTER 2021-08-09 10:21 | Outpatient (REF) | payer MEDICARE, MEDICAID, SELFPAY ==
[2021-08-09 11:25] LABS: Sodium 135 mmol/L (135-145)
[2021-08-09 12:23] LABS: Osmolality Urine 304 mosm/kg (373-1093)
== END 2021-08-09 10:22 | disposition home or self-care (01) ==
LOC: HO.LAB 10:21
PROVIDERS: Visit Provider Nurse Practitioner Family
DX: E87.1 Hypo-osmolality and hyponatremia (principal)
CPT/HCPCS: 36415; 83935; 84295; 84300

== ENCOUNTER 2021-08-09 23:15 | Emergency (ER) | payer MEDICARE, MEDICAID, SELFPAY ==
--- NOTE | ~2021-08-09 | XR_ITS ---
EXAMINATION: XR ABDOMEN KUB CLINICAL INDICATION: Abdominal discomfort with nausea COMPARISON: CT 05/07/2021 TECHNIQUE: AP view of the abdomen. FINDINGS: Gas seen throughout small and large bowel without abnormal dilatation. No abnormal stool burden. Phleboliths of the pelvis. Degenerative changes at the right hip. The lung bases appear clear. XR/XR KUB IMPRESSION: Nonobstructive bowel gas pattern.
[2021-08-09 23:29] VITALS: BP 124/75; PULSE 72; RESP 16; TEMP 36.9; O2SAT 100; BMI 35.7
[2021-08-10 01:02] LABS: Basophils Percent Auto 0.4 % (0-2); Eosinophils Absolute Auto 0.1 X10*3/uL (0.0-0.4); Eosinophils Percent Auto 1.4 % (0-4); Hematocrit 28.9 % (42-52); Hemoglobin 10.1 g/dl (14.0-18.0); Imm Gran Abs Auto 0.02 X10*3/uL (0.00-0.03); Imm Gran Pct Auto 0.4 % (0.0-0.4); Lymphocytes Percent Auto 35.5 % (20-40); MANUAL DIFF FLAG NO; Mean Corpuscular HGB Conc 34.9 g/dl (31.0-36.0); Mean Corpuscular Hemoglobin 29.9 pg (27.0-33.0); Mean Corpuscular Volume 85.5 fL (80-98); Mean Platelet Volume 10.1 fL (9.4-12.4); Monocytes Absolute Auto 0.6 X10*3/uL (0.1-1.2); Monocytes Percent Auto 10.5 % (2-11); Neutrophils Absolute Auto 2.9 X10*3/uL (2.0-8.3); Neutrophils Percent Auto 51.8 % (45-73); Red Blood Count 3.38 X10*6/uL (4.60-5.80); Red Cell Distribution Width 13.4 % (11.0-16.0); White Blood Count 5.6 X10*3/uL (4.8-10.8)
[2021-08-10 01:06] LABS: Appearance Urine CLEAR; Color Urine YELLOW; Glucose Urine UA NEG (NEG); Leukocyte Esterase Urine NEG (NEG); Nitrite Urine NEG (NEG); Specific Gravity - Urine 1.015 (1.005-1.025); Urine Blood NEG (NEG); Urine Ketones 5 MG/DL (NEG); Urine Protein NEG (NEG-TRACE)
[2021-08-10 01:09] LABS: Platelet Count 94 X10*3/uL (160-400)
[2021-08-10 01:11] LABS: Amphetamine Screen Urine Not Detected (Not Detect); Barbiturates, Urine Not Detected (Not Detect); Benzodiazepines Screen Urine Not Detected (Not Detect); Cannabinoid Screen Urine Not Detected (Not Detect); Cocaine Screen Urine Not Detected (Not Detect); Fentanyl, urine Not Detected (Not Detect); Opiate Screen Urine Not Detected (Not Detect); Phencyclidine Screen Urine Not Detected (Not Detect)
[2021-08-10 01:18] LABS: Alanine Aminotransferase 9 U/L (0-40); Albumin Level 3.5 g/dL (3.5-5.0); Alkaline Phosphatase 62 U/L (39-117); Anion Gap 13 (12-20); Aspartate Amino Transferase 13 U/L (5-37); Bilirubin Total 0.2 mg/dL (0.0-1.0); Blood Urea Nitrogen 16 mg/dL (9-16); Calcium 8.5 mg/dL (8.4-10.2); Carbon Dioxide 21 mmol/L (22-29); Chloride 99 mmol/L (96-108); Creatinine Clr Calc Pharmacy 107.7; Estimated Glomerular Filt Rate > 60; Glucose Random 139 mg/dL (60-115); Potassium 4.2 mmol/L (3.3-5.1); Sodium 129 mmol/L (135-145); Total Protein 5.9 g/dL (6.5-8.0)
--- NOTE | 2021-08-10 02:14 | ED_ITS ---
HPI - Psych General Chief Complaint: Psychiatric Symptoms Stated Complaint: abd pain crisis Time Seen by Provider: 08/10/21 00:43 Source: patient and EMS Mode of arrival: EMS History of Present Illness HPI Narrative: 50-year-old male who is brought in by EMS from his [facility] stating that is experiencing audio hallucinations in which voices in his head are telling him to himself and choke himself as well as other people. Patient also states he has had nonspecific abdominal discomfort with nausea. Related Data Home Medications Medication Instructions Recorded Confirmed atorvastatin 10 mg tablet 10 mg PO BEDTIME 11/28/20 08/02/21 aspirin 81 mg tablet,delayed 81 mg PO DAILY 01/23/21 08/02/21 release (Ecotrin Low Strength) divalproex 500 mg tablet,extended 1,000 mg PO BID 01/23/21 08/02/21 release 24 hr (Depakote ER) dicyclomine 20 mg tablet 20 mg PO Q6H PRN 04/26/21 08/02/21 methylcellulose (laxative) 500 mg 500 mg PO DAILY 04/26/21 08/02/21 tablet (Citrucel) cyanocobalamin (vitamin B-12) 1,000 mcg PO DAILY@199905/07/21 08/02/21 1,000 mcg tablet amlodipine 5 mg tablet (Norvasc) 5 mg PO DAILY 06/20/21 08/02/21 Reguloid (psyllium husk) 0.5 g PO DAILY 06/23/21 08/02/21 ferrous sulfate 325 mg (65 mg 325 mg PO BID 06/23/21 08/02/21 iron) tablet fluticasone propionate 50 1 spray INTRANASAL BID 06/23/21 08/02/21 mcg/actuation nasal spray,suspension gabapentin 100 mg capsule 200 mg PO BID 06/23/21 08/02/21 lisinopril 20 mg tablet 1 tab PO DAILY 06/23/21 08/02/21 metformin 500 mg tablet 500 mg PO BID 06/23/21 08/02/21 risperidone 3 mg tablet 1 tab PO BID 06/23/21 08/02/21 cholecalciferol (vitamin D3) 25 25 mcg PO DAILY 07/29/21 08/02/21 mcg (1,000 unit) tablet diphenoxylate-atropine 2.5 1 tab PO DAILY 07/29/21 08/02/21 mg-0.025 mg tablet (Lomotil) fluticasone 250 mcg-salmeterol 50 1 puff INHALATION BID 07/29/21 08/02/21 mcg/dose blistr powdr for inhalation (Advair Diskus) ondansetron 4 mg disintegrating 4 mg PO Q6H PRN 07/29/21 08/02/21 tablet simethicone 125 mg chewable tablet 125 mg PO QID PRN 07/29/21 08/02/21 Previous Rx's Medication Instructions Recorded dexlansoprazole 60 mg 60 mg PO DAILY #28 cap 11/30/20 capsule,biphase delayed release (Dexilant) hydralazine 50 mg tablet 50 mg PO BID 90 Days #180 tab 03/12/21 acetaminophen 325 mg tablet 650 mg PO Q4H PRN 90 Days #180 tab 04/27/21 propranolol 20 mg tablet 20 mg PO TID 90 Days #270 tab 05/18/21 furosemide 20 mg tablet 20 mg PO QAM #28 tab 06/05/21 lactase 3,000 unit tablet (Lactaid) 3,000 unit PO TIDWM #90 tab 08/02/21 urea 15 gram oral powder packet 1 packet PO DAILY #8 ea 08/03/21 (Ure-Na) Allergies Allergy/AdvReac Type Severity Reaction Status Date / Time Sulfa (Sulfonamide Allergy Severe CHAVEZ Verified 08/02/21 14:35 Antibiotics) ALICIA REACTION, Chavez Alicia trimethoprim Allergy Mild UNKNOWN Verified 08/02/21 14:35 lactose AdvReac Mild STOMACH Verified 08/02/21 14:35 UPSET Review of Systems Review of Systems: Pertinent positives and negatives as stated in HPI 10 point review systems otherwise negative. [facility] Past Medical History Source: nursing notes reviewed Medical History Anemia Anxiety Asthma Cerebellar ataxia Depression Essential hypertension Hyperlipidemia LDL goal <100 Hypertension Hyponatremia Lactose intolerance Mental disability Obesity due to excess calories Peripheral vascular disease Proteinuria Right ankle pain Seizure disorder Type 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 Vertigo Surgical History History of orchiectomy Family History Family History Father Myocardial infarction CVD (cardiovascular disease) Diabetes mellitus Mother Diabetes mellitus HTN (hypertension) Brother In good health Sister In good health Social History Social History Household Members: Other Household Members Other:: from [facility] Housing: Other Housing Other:: [facility] Do you presently have visiting nurse or other home services: Yes Alcohol intake: unknown Patient Tobacco Use Status: Never used Tobacco e-Cigarette/Vaping Use: Never Used Second Hand Smoke Exposure: No Advance Directives: No Advance Directives Information Provided: Yes Advance Directives Date on File: 05/23/21 service: No Current occupational status: disabled Physical Exam Vital Signs: Vital Signs: Last Vital Signs Temp 98.4 F 08/09/21 23:29 Pulse 72 08/09/21 23:29 Resp 16 08/09/21 23:29 BP 124/75 08/09/21 23:29 Pulse Ox 100 08/09/21 23:29 Body Mass Index 35.7 VITAL SIGNS: Reviewed. GENERAL: Well developed, well nourished, in no acute distress. HEAD: Normocephalic/atraumatic EYES: PERRLA, EOMI OROPHARYNX: no oral lesions noted, posterior pharynx clear LUNGS: Normal breath sounds. No adventitious sounds or accessory muscle use. SpO2<100> CARDIOVASCULAR: Regular rate and rhythm without noted murmurs ABDOMEN: Soft, non-tender, non-distended with bowel sounds. MUSCULOSKELETAL: No tenderness, deformities, or effusions noted on gross inspection. EXTREMITIES: No cyanosis, clubbing or edema. SKIN: Inspection of the skin reveals no rashes NEUROLOGIC: Alert and oriented x 4. Strength and sensation to light touch were grossly intact x 4. Course Course Course Narrative: 50-year-old male with history and clinical presentation suggestive of possible medication related abdominal symptoms as review of all investigations otherwise negative for acute findings. He is noted to have tolerated a sandwich without difficulty and is otherwise medically cleared for further behavioral evaluation and transfer to the pod. Reevaluation(s) Reevaluation #1: Patient placed in physician observation because the patient needed more time for evaluation by the behavioral team. At the time observation was started the patient's vital signs were stable, patient is alert and oriented, neuro: Nonfocal, CV RRR, lungs clear Time: 02:18 MDM - Psych Lab Data Result diagrams: 08/10/21 00:58 08/10/21 00:58 Labs: Lab Results 08/10/21 08/10/21 08/10/21 Range/Units 00:49 00:49 00:58 WBC 5.6 (4.8-10.8) X10*3/uL RBC 3.38 L (4.60-5.80) X10*6/uL Hgb 10.1 L (14.0-18.0) g/dl Hct 28.9 L (42-52) % MCV 85.5 (80-98) fL MCH 29.9 (27.0-33.0) pg MCHC 34.9 (31.0-36.0) g/dl RDW 13.4 (11.0-16.0) % Plt Count 94 L (160-400) X10*3/uL MPV 10.1 (9.4-12.4) fL Immature Gran % (Auto) 0.4 (0.0-0.4) % Neut % (Auto) 51.8 (45-73) % Lymph % (Auto) 35.5 (20-40) % [place] % (Auto) 10.5 (2-11) % Eos % (Auto) 1.4 (0-4) % Baso % (Auto) 0.4 (0-2) % Lymph # (Auto) 2.0 (1.2-4.9) X10*3/uL [place] # (Auto) 0.6 (0.1-1.2) X10*3/uL Eos # (Auto) 0.1 (0.0-0.4) X10*3/uL Baso # (Auto) 0.0 (0.0-0.2) X10*3/uL Abs Immat Gran (auto) 0.02 (0.00-0.03) X10*3/uL Absolute Neuts (auto) 2.9 (2.0-8.3) X10*3/uL Absolute Nucleated RBC 0.000 (0.0-0.012) X10*3/uL Nucleated RBC % (auto) 0.0 (0.0-0.2) /100WBC Sodium (135-145) mmol/L Potassium (3.3-5.1) mmol/L Chloride (96-108) mmol/L Carbon Dioxide (22-29) mmol/L Anion Gap (12-20) BUN (9-16) mg/dL Creatinine (0.5-1.4) mg/dL Estim Creat Clear Calc Estimated GFR Random Glucose (60-115) mg/dL Calcium (8.4-10.2) mg/dL Total Bilirubin (0.0-1.0) mg/dL AST (5-37) U/L ALT (0-40) U/L Alkaline Phosphatase (39-117) U/L Total Protein (6.5-8.0) g/dL Albumin (3.5-5.0) g/dL Urine Color YELLOW Urine Appearance CLEAR Urine pH 7.0 (5.0-8.0) Ur Specific [place] 1.015 (1.005-1.025) Urine Protein NEG (NEG-TRACE) MG/DL Urine Glucose (UA) NEG (NEG) MG/DL Urine Ketones 5 (NEG) MG/DL Urine Blood NEG (NEG) Urine Nitrite NEG (NEG) Ur Leukocyte Esterase NEG (NEG) Urine Opiates Screen Not Detected (Not Detect) Urine Fentanyl Screen Not Detected (Not Detect) Ur Barbiturates Screen Not Detected (Not Detect) Ur Phencyclidine Scrn Not Detected (Not Detect) Ur Amphetamines Screen Not Detected (Not Detect) U Benzodiazepines Scrn Not Detected (Not Detect) Urine Cocaine Screen Not Detected (Not Detect) U Marijuana (THC) Screen Not Detected (Not Detect) 08/10/21 Range/Units 00:58 WBC (4.8-10.8) X10*3/uL RBC (4.60-5.80) X10*6/uL Hgb (14.0-18.0) g/dl Hct (42-52) % MCV (80-98) fL MCH (27.0-33.0) pg MCHC (31.0-36.0) g/dl RDW (11.0-16.0) % Plt Count (160-400) X10*3/uL MPV (9.4-12.4) fL Immature Gran % (Auto) (0.0-0.4) % Neut % (Auto) (45-73) % Lymph % (Auto) (20-40) % [place] % (Auto) (2-11) % Eos % (Auto) (0-4) % Baso % (Auto) (0-2) % Lymph # (Auto) (1.2-4.9) X10*3/uL [place] # (Auto) (0.1-1.2) X10*3/uL Eos # (Auto) (0.0-0.4) X10*3/uL Baso # (Auto) (0.0-0.2) X10*3/uL Abs Immat Gran (auto) (0.00-0.03) X10*3/uL Absolute Neuts (auto) (2.0-8.3) X10*3/uL Absolute Nucleated RBC (0.0-0.012) X10*3/uL Nucleated RBC % (auto) (0.0-0.2) /100WBC Sodium 129 L (135-145) mmol/L Potassium 4.2 (3.3-5.1) mmol/L Chloride 99 (96-108) mmol/L Carbon Dioxide 21 L (22-29) mmol/L Anion Gap 13 (12-20) BUN 16 (9-16) mg/dL Creatinine 0.89 (0.5-1.4) mg/dL Estim Creat Clear Calc 107.7 Estimated GFR > 60 Random Glucose 139 H (60-115) mg/dL Calcium 8.5 D (8.4-10.2) mg/dL Total Bilirubin 0.2 (0.0-1.0) mg/dL AST 13 (5-37) U/L ALT 9 (0-40) U/L Alkaline Phosphatase 62 (39-117) U/L Total Protein 5.9 L (6.5-8.0) g/dL Albumin 3.5 (3.5-5.0) g/dL Urine Color Urine Appearance Urine pH (5.0-8.0) Ur Specific [place] (1.005-1.025) Urine Protein (NEG-TRACE) MG/DL Urine Glucose (UA) (NEG) MG/DL Urine Ketones (NEG) MG/DL Urine Blood (NEG) Urine Nitrite (NEG) Ur Leukocyte Esterase (NEG) Urine Opiates Screen (Not Detect) Urine Fentanyl Screen (Not Detect) Ur Barbiturates Screen (Not Detect) Ur Phencyclidine Scrn (Not Detect) Ur Amphetamines Screen (Not Detect) U Benzodiazepines Scrn (Not Detect) Urine Cocaine Screen (Not Detect) U Marijuana (THC) Screen (Not Detect) Discharge Plan Discharge Clinical Impression: Suicidal ideation, Auditory hallucination Prescriptions: No Action dexlansoprazole [Dexilant] 60 mg capsule,biphase delayed releas 60 mg PO DAILY Qty: 28 RF: 11 hydralazine 50 mg tablet 50 mg PO BID 90 Days Qty: 180 RF: 2 acetaminophen 325 mg tablet 650 mg PO Q4H PRN (Reason: fever or pain) 90 Days Qty: 180 RF: 2 propranolol 20 mg tablet 20 mg PO TID 90 Days Qty: 270 RF: 1 furosemide 20 mg tablet 20 mg PO QAM Qty: 28 RF: 3 aspirin [Ecotrin Low Strength] 81 mg Tablet,Delayed Release (Dr/Ec) 81 mg PO DAILY RF: 0 divalproex [Depakote ER] 500 mg Tablet Extended Release 24 Hr 1,000 mg PO BID RF: 0 Citrucel 500 mg Tablet 500 mg PO DAILY RF: 0 dicyclomine 20 mg Tablet 20 mg PO Q6H PRN (Reason: Cramps) RF: 0 fluticasone propion-salmeterol [Advair Diskus] 250-50 mcg/dose blister with device 1 puff inhalation BID RF: 0 diphenoxylate-atropine [Lomotil] 2.5-0.025 mg Tablet 1 tab PO DAILY RF: 0 simethicone 125 mg Tablet,Chewable 125 mg PO QID PRN (Reason: Abdominal Discomfort) RF: 0 ondansetron 4 mg Tablet,Disintegrating 4 mg PO Q6H PRN (Reason: Nausea) RF: 0 cholecalciferol (vitamin D3) 25 mcg (1,000 unit) tablet 25 mcg PO DAILY RF: 0 atorvastatin 10 mg tablet 10 mg PO BEDTIME RF: 0 cyanocobalamin (vitamin B-12) 1,000 mcg tablet 1,000 mcg PO DAILY@1999 RF: 0 ferrous sulfate 325 mg (65 mg iron) Tablet 325 mg PO BID RF: 0 fluticasone propionate [Flonase] 50 mcg/actuation [place],Suspension 1 spray INTRANASAL BID RF: 0 metformin [Glucophage] 500 mg Tablet 500 mg PO BID RF: 0 lisinopril 20 mg tablet 1 tab PO DAILY RF: 0 gabapentin 100 mg capsule 200 mg PO BID RF: 0 risperidone 3 mg tablet 1 tab PO BID RF: 0 Reguloid (psyllium husk) 0.5 g PO DAILY RF: 0 lactase [Lactaid] 3,000 unit tablet 3,000 unit PO TIDWM Qty: 90 RF: 0 Ure-Na 15 gram powder in packet 1 packet PO DAILY Qty: 8 RF: 0 amlodipine [Norvasc] 5 mg tablet 5 mg PO DAILY RF: 0
[2021-08-10] MEDS: Acetaminophen 325 MG TABLET 650 MG PO (03:09)
[2021-08-10 04:10] VITALS: RESP 16
[2021-08-10 04:11] VITALS: RESP 16
[2021-08-10 04:45] VITALS: BP 110/68; PULSE 66; RESP 16; TEMP 36.4; O2SAT 98
--- NOTE | 2021-08-10 09:54 | PC.NURSE ---
Pt cleared by care team and will return back to care home. pt observer at bedside
[2021-08-10 10:00] VITALS: BP 114/63; PULSE 79; RESP 16; TEMP 36.9; O2SAT 99
--- NOTE | 2021-08-10 10:03 | PC.NURSE ---
[facility] call and notified of pts arrival back to facility
== END 2021-08-10 10:50 | disposition home or self-care (01) ==
PROVIDERS: Emergency Provider Student in an Organized Health Care Education/Training Program
DX: R44.0 Auditory hallucinations (principal); R45.851 Suicidal ideations; R11.0 Nausea; Z79.899 Other long term (current) drug therapy
CPT/HCPCS: 36415; 74018; 80053; 80307; 81003; 85025; 99284; 99285

== ENCOUNTER 2021-08-13 13:43 | Emergency (ER) | payer MEDICARE, MEDICAID, SELFPAY ==
[2021-08-13 14:08] VITALS: BP 122/61; PULSE 75; O2SAT 99
[2021-08-13 14:14] VITALS: BP 115/57; PULSE 80; RESP 18; TEMP 36.7; O2SAT 100
--- NOTE | 2021-08-13 14:16 | ED_ITS ---
HPI - Abdominal Pain General Chief Complaint: Psychiatric Symptoms Stated Complaint: abd pain Time Seen by Provider: 08/13/21 14:08 Source: patient and EMS Mode of arrival: EMS Limitations: no limitations History of Present Illness HPI narrative: Patient comes to the emergency room from his intermediate. Patient reports abdominal pain for last 4 hours. Patient states it is in 1 specific spot above his umbilicus. Patient denies vomiting, no diarrhea. Patient complaining mostly that he does not like the food at his intermediate. Patient denies chest pain, no shortness of breath, no fever chills, no cough. Related Data Home Medications Medication Instructions Recorded Confirmed atorvastatin 10 mg tablet 10 mg PO BEDTIME 11/28/20 08/02/21 aspirin 81 mg tablet,delayed 81 mg PO DAILY 01/23/21 08/02/21 release (Ecotrin Low Strength) divalproex 500 mg tablet,extended 1,000 mg PO BID 01/23/21 08/02/21 release 24 hr (Depakote ER) dicyclomine 20 mg tablet 20 mg PO Q6H PRN 04/26/21 08/02/21 methylcellulose (laxative) 500 mg 500 mg PO DAILY 04/26/21 08/02/21 tablet (Citrucel) cyanocobalamin (vitamin B-12) 1,000 mcg PO DAILY@199905/07/21 08/02/21 1,000 mcg tablet amlodipine 5 mg tablet (Norvasc) 5 mg PO DAILY 06/20/21 08/02/21 Reguloid (psyllium husk) 0.5 g PO DAILY 06/23/21 08/02/21 ferrous sulfate 325 mg (65 mg 325 mg PO BID 06/23/21 08/02/21 iron) tablet fluticasone propionate 50 1 spray INTRANASAL BID 06/23/21 08/02/21 mcg/actuation nasal spray,suspension gabapentin 100 mg capsule 200 mg PO BID 06/23/21 08/02/21 lisinopril 20 mg tablet 1 tab PO DAILY 06/23/21 08/02/21 metformin 500 mg tablet 500 mg PO BID 06/23/21 08/02/21 risperidone 3 mg tablet 1 tab PO BID 06/23/21 08/02/21 cholecalciferol (vitamin D3) 25 25 mcg PO DAILY 09/19/21 09/23/21 mcg (1,000 unit) tablet diphenoxylate-atropine 2.5 1 tab PO DAILY 07/29/21 08/02/21 mg-0.025 mg tablet (Lomotil) fluticasone 250 mcg-salmeterol 50 1 puff INHALATION BID 07/29/21 08/02/21 mcg/dose blistr powdr for inhalation (Advair Diskus) ondansetron 4 mg disintegrating 4 mg PO Q6H PRN 07/29/21 08/02/21 tablet simethicone 125 mg chewable tablet 125 mg PO QID PRN 07/29/21 08/02/21 Previous Rx's Medication Instructions Recorded dexlansoprazole 60 mg 60 mg PO DAILY #28 cap 11/30/20 capsule,biphase delayed release (Dexilant) hydralazine 50 mg tablet 50 mg PO BID 90 Days #180 tab 03/12/21 acetaminophen 325 mg tablet 650 mg PO Q4H PRN 90 Days #180 tab 04/27/21 propranolol 20 mg tablet 20 mg PO TID 90 Days #270 tab 05/18/21 furosemide 20 mg tablet 20 mg PO QAM #28 tab 06/05/21 lactase 3,000 unit tablet (Lactaid) 3,000 unit PO TIDWM #90 tab 08/02/21 urea 15 gram oral powder packet 1 packet PO DAILY #8 ea 08/03/21 (Ure-Na) Allergies Allergy/AdvReac Type Severity Reaction Status Date / Time Sulfa (Sulfonamide Allergy Severe CHAVEZ Verified 08/02/21 14:35 Antibiotics) ALICIA REACTION, Chavez Alicia trimethoprim Allergy Mild UNKNOWN Verified 08/02/21 14:35 lactose AdvReac Mild STOMACH Verified 08/02/21 14:35 UPSET Review of Systems Review of Systems Constitutional : No Weight loss, No Fever, No Chills, No Night Sweats, No Fatigue, No Malaise ENT/Mouth : No Hearing loss, No Ear Pain, No Nasal Congestion, No Sinus Pain, No Hoarseness, No sore throat, No Rhinorrhea, No Swallowing Difficulty Eyes: No Eye Pain, No Swelling, No Redness, No Foreign Body, No Discharge, No Vision Changes Cardiovascular : No Chest Pain, No SOB, No Dyspnea on Exertion, No Orthopnea, No Edema, No Palpitations Respiratory : No Cough, No Sputum, No Wheezing, No Smoke Exposure, No Dyspnea Gastrointestinal : No Nausea, No Vomiting, No Diarrhea, No Constipation, complaining of mild abdominal pain above his umbilicus, No Hematochezia, No Melena Genitourinary : no irregular bleeding, No Dysuria, No Urinary Frequency, No Hematuria, No Urinary Incontinence, No Urgency, No Flank Pain, No Urinary Flow Changes, No Hesitancy Musculoskeletal : No joint pain, No Myalgias, No Joint Swelling Skin : No Skin Lesions, No rash Neuro : No Weakness, No Numbness, No Paresthesias, No Loss of Consciousness, No Dizziness, No Headache Psych : No Anxiety/Panic, No Depression, No SI/HI/AH/VH, No Social Issues, Heme/Lymph: No Bruising, No Bleeding,No Lymphadenopathy Endocrine : No Polyuria, No Polydipsia, No Temperature Intolerance Physical Exam Vital Signs: Vital Signs: Last Vital Signs Temp 97.0 F 08/13/21 14:32 Pulse 77 08/13/21 14:32 Resp 16 08/13/21 14:32 BP 115/57 L 08/13/21 14:32 Pulse Ox 100 08/13/21 14:32 Body Mass Index 35.6 Const: Other: Appearance: Alert. Oriented X3. No acute distress. Eyes: Pupils equal, round and reactive to light. ENT: Pharynx normal. Neck: Normal inspection. Neck supple. No lymph nodes noted. No crepitus CVS: Normal heart rate and rhythm. Pulses normal. Normal S1 and S2 Respiratory: No respiratory distress. Breath sounds normal. No Wheezing. No rales Abdomen: Soft , seems nontender on deep palpation throughout the abdomen, No rigidity. No distention. Skin: Skin warm and dry. Normal skin color. Normal skin turgor. Extremities: No lower extremity edema. No lower extremity edema. No Lacerations. No Rash Neuro: Oriented X 3. No motor deficit. No sensory deficit. Moving all extermities. No slurred speech. Course Course Course Narrative: Patient's labs are at baseline, patient has not complained of abdominal pain. Patient's sodium is 127. Patient does have history of chronic hyponatremia. According to the up-to-date algorithm for treatment of hyponatremia under 130, the patient does not need to be acutely treated and can be monitored in outpatient setting. MDM - Abdominal Pain Lab Data Result diagrams: 08/13/21 15:13 08/13/21 15:13 Labs: Lab Results 08/13/21 08/13/21 Range/Units 15:13 15:13 WBC 5.4 (4.8-10.8) X10*3/uL RBC 3.64 L (4.60-5.80) X10*6/uL Hgb 11.0 L (14.0-18.0) g/dl Hct 31.1 L (42-52) % MCV 85.4 (80-98) fL MCH 30.2 (27.0-33.0) pg MCHC 35.4 (31.0-36.0) g/dl RDW 13.5 (11.0-16.0) % Plt Count 118 L D (160-400) X10*3/uL MPV 9.8 (9.4-12.4) fL Immature Gran % (Auto) 0.7 H (0.0-0.4) % Neut % (Auto) 63.4 (45-73) % Lymph % (Auto) 23.2 (20-40) % [place] % (Auto) 11.0 (2-11) % Eos % (Auto) 1.3 (0-4) % Baso % (Auto) 0.4 (0-2) % Lymph # (Auto) 1.3 (1.2-4.9) X10*3/uL [place] # (Auto) 0.6 (0.1-1.2) X10*3/uL Eos # (Auto) 0.1 (0.0-0.4) X10*3/uL Baso # (Auto) 0.0 (0.0-0.2) X10*3/uL Abs Immat Gran (auto) 0.04 H (0.00-0.03) X10*3/uL Absolute Neuts (auto) 3.5 (2.0-8.3) X10*3/uL Absolute Nucleated RBC 0.000 (0.0-0.012) X10*3/uL Nucleated RBC % (auto) 0.0 (0.0-0.2) /100WBC Sodium 127 L (135-145) mmol/L Potassium 4.6 (3.3-5.1) mmol/L Chloride 95 L (96-108) mmol/L Carbon Dioxide 23 (22-29) mmol/L Anion Gap 14 (12-20) BUN 24 H (9-16) mg/dL Creatinine 0.89 (0.5-1.4) mg/dL Estim Creat Clear Calc 107.5 Estimated GFR > 60 Random Glucose 107 (60-115) mg/dL Calcium 8.7 (8.4-10.2) mg/dL Total Bilirubin 0.2 (0.0-1.0) mg/dL Direct Bilirubin < 0.2 (0.0-0.5) mg/dL AST 15 (5-37) U/L ALT 11 (0-40) U/L Alkaline Phosphatase 63 (39-117) U/L Total Protein 6.1 L (6.5-8.0) g/dL Albumin 3.7 (3.5-5.0) g/dL Lipase 45 (8-78) U/L Discharge Plan Discharge Clinical Impression: Abdominal pain Patient Disposition: Home, Self-Care Instructions: Abdominal Pain (ED) Additional Instructions: Please follow-up with your primary care physician tomorrow. If you have any worsening or new symptoms, please return to the emergency room or call 911 Prescriptions: No Action dexlansoprazole [Dexilant] 60 mg capsule,biphase delayed releas 60 mg PO DAILY Qty: 28 RF: 11 hydralazine 50 mg tablet 50 mg PO BID 90 Days Qty: 180 RF: 2 acetaminophen 325 mg tablet 650 mg PO Q4H PRN (Reason: fever or pain) 90 Days Qty: 180 RF: 2 propranolol 20 mg tablet 20 mg PO TID 90 Days Qty: 270 RF: 1 furosemide 20 mg tablet 20 mg PO QAM Qty: 28 RF: 3 aspirin [Ecotrin Low Strength] 81 mg Tablet,Delayed Release (Dr/Ec) 81 mg PO DAILY RF: 0 divalproex [Depakote ER] 500 mg Tablet Extended Release 24 Hr 1,000 mg PO BID RF: 0 Citrucel 500 mg Tablet 500 mg PO DAILY RF: 0 dicyclomine 20 mg Tablet 20 mg PO Q6H PRN (Reason: Cramps) RF: 0 fluticasone propion-salmeterol [Advair Diskus] 250-50 mcg/dose blister with device 1 puff inhalation BID RF: 0 diphenoxylate-atropine [Lomotil] 2.5-0.025 mg Tablet 1 tab PO DAILY RF: 0 simethicone 125 mg Tablet,Chewable 125 mg PO QID PRN (Reason: Abdominal Discomfort) RF: 0 ondansetron 4 mg Tablet,Disintegrating 4 mg PO Q6H PRN (Reason: Nausea) RF: 0 cholecalciferol (vitamin D3) 25 mcg (1,000 unit) tablet 25 mcg PO DAILY RF: 0 atorvastatin 10 mg tablet 10 mg PO BEDTIME RF: 0 cyanocobalamin (vitamin B-12) 1,000 mcg tablet 1,000 mcg PO DAILY@1999 RF: 0 ferrous sulfate 325 mg (65 mg iron) Tablet 325 mg PO BID RF: 0 fluticasone propionate [Flonase] 50 mcg/actuation [place],Suspension 1 spray INTRANASAL BID RF: 0 metformin [Glucophage] 500 mg Tablet 500 mg PO BID RF: 0 lisinopril 20 mg tablet 1 tab PO DAILY RF: 0 gabapentin 100 mg capsule 200 mg PO BID RF: 0 risperidone 3 mg tablet 1 tab PO BID RF: 0 Reguloid (psyllium husk) 0.5 g PO DAILY RF: 0 lactase [Lactaid] 3,000 unit tablet 3,000 unit PO TIDWM Qty: 90 RF: 0 Ure-Na 15 gram powder in packet 1 packet PO DAILY Qty: 8 RF: 0 amlodipine [Norvasc] 5 mg tablet 5 mg PO DAILY RF: 0 PMFSH Past Medical History Medical History Anemia Anxiety Asthma Cerebellar ataxia Depression Essential hypertension Hyperlipidemia LDL goal <100 Hypertension Hyponatremia Lactose intolerance Mental disability Obesity due to excess calories Peripheral vascular disease Proteinuria Right ankle pain Seizure disorder Type 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 Vertigo Surgical History History of orchiectomy Family History Family History Father Myocardial infarction CVD (cardiovascular disease) Diabetes mellitus Mother Diabetes mellitus HTN (hypertension) Brother In good health Sister In good health Social History Social History Household Members: Other Household Members Other:: from intermediate Housing: Other Housing Other:: intermediate Do you presently have visiting nurse or other home services: Yes Alcohol intake: unknown Patient Tobacco Use Status: Never used Tobacco e-Cigarette/Vaping Use: Never Used Second Hand Smoke Exposure: No Advance Directives: Yes Advance Directives Information Provided: Yes Advance Directives on File: No Advance Directives Date on File: 05/23/21 service: No Current occupational status: disabled
[2021-08-13 14:32] VITALS: BP 115/57; PULSE 77; RESP 16; TEMP 36.1; O2SAT 100; BMI 35.6
--- NOTE | 2021-08-13 15:00 | PC.NURSE ---
pt alert and oriented, vss. pt comes from a detention, he c/o abdominal pain that started this morning. Pt also complaining that he does not like the food at his detention. He denies vomiting and diarrhea. No chest pain, no sob, no fever, no chills, no cough. No other symptoms reported. Pt also states that he told his detention staff that he feels like hurting himself. Pt told this conventional mortgage underwriter he doesn't like the food there so he tells them he feels like hurting himself so that they can send him to the hospital. Pt asking this conventional mortgage underwriter when can he eat.
[2021-08-13 15:20] LABS: Basophils Percent Auto 0.4 % (0-2); Eosinophils Absolute Auto 0.1 X10*3/uL (0.0-0.4); Eosinophils Percent Auto 1.3 % (0-4); Hematocrit 31.1 % (42-52); Imm Gran Abs Auto 0.04 X10*3/uL (0.00-0.03); Imm Gran Pct Auto 0.7 % (0.0-0.4); Lymphocytes Absolute Auto 1.3 X10*3/uL (1.2-4.9); Lymphocytes Percent Auto 23.2 % (20-40); MANUAL DIFF FLAG NO; Mean Corpuscular HGB Conc 35.4 g/dl (31.0-36.0); Mean Corpuscular Hemoglobin 30.2 pg (27.0-33.0); Mean Corpuscular Volume 85.4 fL (80-98); Mean Platelet Volume 9.8 fL (9.4-12.4); Monocytes Absolute Auto 0.6 X10*3/uL (0.1-1.2); Neutrophils Absolute Auto 3.5 X10*3/uL (2.0-8.3); Neutrophils Percent Auto 63.4 % (45-73); Platelet Count 118 X10*3/uL (160-400); Red Blood Count 3.64 X10*6/uL (4.60-5.80); Red Cell Distribution Width 13.5 % (11.0-16.0); White Blood Count 5.4 X10*3/uL (4.8-10.8)
[2021-08-13 15:57] LABS: Alanine Aminotransferase 11 U/L (0-40); Albumin Level 3.7 g/dL (3.5-5.0); Alkaline Phosphatase 63 U/L (39-117); Anion Gap 14 (12-20); Aspartate Amino Transferase 15 U/L (5-37); Bilirubin Direct < 0.2 mg/dL (0.0-0.5); Bilirubin Total 0.2 mg/dL (0.0-1.0); Blood Urea Nitrogen 24 mg/dL (9-16); Calcium 8.7 mg/dL (8.4-10.2); Carbon Dioxide 23 mmol/L (22-29); Chloride 95 mmol/L (96-108); Creatinine Clr Calc Pharmacy 107.5; Estimated Glomerular Filt Rate > 60; Glucose Random 107 mg/dL (60-115); Lipase 45 U/L (8-78); Potassium 4.6 mmol/L (3.3-5.1); Sodium 127 mmol/L (135-145); Total Protein 6.1 g/dL (6.5-8.0)
== END 2021-08-13 21:16 | disposition home or self-care (01) ==
PROVIDERS: Emergency Provider Emergency Medicine; PCP Internal Medicine
DX: R10.9 Unspecified abdominal pain (principal); Z79.899 Other long term (current) drug therapy
CPT/HCPCS: 36415; 80048; 80076; 83690; 85025; 99283

== ENCOUNTER 2021-08-14 21:39 | Emergency (ER) | payer MEDICARE, MEDICAID, SELFPAY ==
[2021-08-14 21:55] VITALS: BP 127/76; PULSE 67; RESP 14; TEMP 36.5; O2SAT 100; BMI 35.6
--- NOTE | 2021-08-14 22:19 | ED.CHESTPAIN ---
HPI - Chest Pain General Chief Complaint: Chest Pain Stated Complaint: CHEST PAIN AND HEARING VOICES Time Seen by Provider: 08/14/21 22:19 Source: patient Mode of arrival: ambulatory Limitations: no limitations History of Present Illness HPI narrative: Patient with history of schizophrenia hearing voices lately feels like hurting self or someone else also complaining of mid chest pain off and on for many months no radiation of pain no diaphoresis or shortness of breath patient comfortable at this time Related Data Home Medications Medication Instructions Recorded Confirmed atorvastatin 10 mg tablet 10 mg PO BEDTIME 11/28/20 08/02/21 aspirin 81 mg tablet,delayed 81 mg PO DAILY 01/23/21 08/02/21 release (Ecotrin Low Strength) divalproex 500 mg tablet,extended 1,000 mg PO BID 01/23/21 08/02/21 release 24 hr (Depakote ER) dicyclomine 20 mg tablet 20 mg PO Q6H PRN 04/26/21 08/02/21 methylcellulose (laxative) 500 mg 500 mg PO DAILY 04/26/21 08/02/21 tablet (Citrucel) cyanocobalamin (vitamin B-12) 1,000 mcg PO DAILY@199905/07/21 08/02/21 1,000 mcg tablet amlodipine 5 mg tablet (Norvasc) 5 mg PO DAILY 06/20/21 08/02/21 Reguloid (psyllium husk) 0.5 g PO DAILY 06/23/21 08/02/21 ferrous sulfate 325 mg (65 mg 325 mg PO BID 06/23/21 08/02/21 iron) tablet fluticasone propionate 50 1 spray INTRANASAL BID 06/23/21 08/02/21 mcg/actuation nasal spray,suspension gabapentin 100 mg capsule 200 mg PO BID 06/23/21 08/02/21 lisinopril 20 mg tablet 1 tab PO DAILY 06/23/21 08/02/21 metformin 500 mg tablet 500 mg PO BID 06/23/21 08/02/21 risperidone 3 mg tablet 1 tab PO BID 06/23/21 08/02/21 cholecalciferol (vitamin D3) 25 25 mcg PO DAILY 07/29/21 08/02/21 mcg (1,000 unit) tablet diphenoxylate-atropine 2.5 1 tab PO DAILY 07/29/21 08/02/21 mg-0.025 mg tablet (Lomotil) fluticasone 250 mcg-salmeterol 50 1 puff INHALATION BID 07/29/21 08/02/21 mcg/dose blistr powdr for inhalation (Advair Diskus) ondansetron 4 mg disintegrating 4 mg PO Q6H PRN 07/29/21 08/02/21 tablet simethicone 125 mg chewable tablet 125 mg PO QID PRN 07/29/21 08/02/21 Previous Rx's Medication Instructions Recorded dexlansoprazole 60 mg 60 mg PO DAILY #28 cap 11/30/20 capsule,biphase delayed release (Dexilant) hydralazine 50 mg tablet 50 mg PO BID 90 Days #180 tab 03/12/21 acetaminophen 325 mg tablet 650 mg PO Q4H PRN 90 Days #180 tab 04/27/21 propranolol 20 mg tablet 20 mg PO TID 90 Days #270 tab 05/18/21 furosemide 20 mg tablet 20 mg PO QAM #28 tab 06/05/21 lactase 3,000 unit tablet (Lactaid) 3,000 unit PO TIDWM #90 tab 08/02/21 urea 15 gram oral powder packet 1 packet PO DAILY #8 ea 08/03/21 (Ure-Na) Allergies Allergy/AdvReac Type Severity Reaction Status Date / Time Sulfa (Sulfonamide Allergy Severe CHAVEZ Verified 08/02/21 14:35 Antibiotics) ALICIA REACTION, Chavez Alicia trimethoprim Allergy Mild UNKNOWN Verified 08/02/21 14:35 lactose AdvReac Mild STOMACH Verified 08/02/21 14:35 UPSET Review of Systems Review of Systems: Constitutional : No Weight loss, No Fever, No Chills ENT/Mouth : No sore throat, No Rhinorrhea Eyes: No Eye Pain, No Swelling Cardiovascular : + Chest Pain, no palpitations Respiratory : No Cough, No Sputum, no shortness of breath Gastrointestinal : no Nausea, No Vomiting, No Diarrhea, No abdominal Pain, no black stools Genitourinary : No Dysuria, No Urinary Frequency Musculoskeletal : No joint pain, No Myalgias, No Joint Swelling Skin : No Skin Lesions, No rash Neuro : No Weakness, No Numbness, No Dizziness, No Headache Psych : No Anxiety/Panic, No Depression Heme/Lymph: No Bruising, No Lymphadenopathy Psych: Depressed feels suicidal Endocrine : No Polyuria, No Polydipsia All other systems reviewed and are negative [facility] Past Medical History Medical History Anemia Anxiety Asthma Cerebellar ataxia Depression Essential hypertension Hyperlipidemia LDL goal <100 Hypertension Hyponatremia Lactose intolerance Mental disability Obesity due to excess calories Peripheral vascular disease Proteinuria Right ankle pain Seizure disorder Type 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 Vertigo Surgical History History of orchiectomy Family History Family History Father Myocardial infarction CVD (cardiovascular disease) Diabetes mellitus Mother Diabetes mellitus HTN (hypertension) Brother In good health Sister In good health Social History Social History Household Members: Other Household Members Other:: [facility] Housing: Other Housing Other:: pen[facility]iary Do you presently have visiting nurse or other home services: Yes Alcohol intake: unknown Patient Tobacco Use Status: Never used Tobacco e-Cigarette/Vaping Use: Never Used Second Hand Smoke Exposure: No Advance Directives: No Advance Directives Information Provided: No Advance Directives Date on File: 05/23/21 service: No Current occupational status: disabled Physical Exam Vital Signs: Vital Signs: Last Vital Signs Temp 97.7 F 08/14/21 21:55 Pulse 67 08/14/21 21:55 Resp 14 08/14/21 21:55 BP 127/76 08/14/21 21:55 Pulse Ox 100 08/14/21 21:55 Body Mass Index 35.6 Appearance: Alert. Oriented X3. No acute distress. Eyes: PERRLA, No Nystagmus ENT: Pharynx normal. Oral Mucosa moist Neck: Normal inspection. Neck supple. CVS: Normal heart rate and rhythm. Pulses normal. Respiratory: No respiratory distress. Equal air entry bilateral, no wheezing/rales/rhonchi Abdomen: Soft and nontender. Bowel sounds are present, no mass palpable, no CVA tenderness Skin: Skin warm and dry. Normal skin color. Normal skin turgor. Extremities: No lower extremity edema. No calf tenderness Neuro: Oriented X 3. No motor deficit. 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 Lab Data Attestation: I reviewed the patient's lab results. Result diagrams: 08/14/21 23:52 08/14/21 23:52 Labs: Lab Results 08/14/21 08/14/21 08/14/21 Range/Units 23:52 23:52 23:52 WBC 6.4 (4.8-10.8) X10*3/uL RBC 3.51 L (4.60-5.80) X10*6/uL Hgb 10.5 L (14.0-18.0) g/dl Hct 29.2 L (42-52) % MCV 83.2 (80-98) fL MCH 29.9 (27.0-33.0) pg MCHC 36.0 (31.0-36.0) g/dl RDW 13.3 (11.0-16.0) % Plt Count 120 L (160-400) X10*3/uL MPV 9.6 (9.4-12.4) fL Immature Gran % (Auto) 0.6 H (0.0-0.4) % Neut % (Auto) 56.2 (45-73) % Lymph % (Auto) 29.2 (20-40) % [place] % (Auto) 12.1 H (2-11) % Eos % (Auto) 1.6 (0-4) % Baso % (Auto) 0.3 (0-2) % Lymph # (Auto) 1.9 (1.2-4.9) X10*3/uL [place] # (Auto) 0.8 (0.1-1.2) X10*3/uL Eos # (Auto) 0.1 (0.0-0.4) X10*3/uL Baso # (Auto) 0.0 (0.0-0.2) X10*3/uL Abs Immat Gran (auto) 0.04 H (0.00-0.03) X10*3/uL Absolute Neuts (auto) 3.6 (2.0-8.3) X10*3/uL Absolute Nucleated RBC 0.000 (0.0-0.012) X10*3/uL Nucleated RBC % (auto) 0.0 (0.0-0.2) /100WBC Sodium 124 L (135-145) mmol/L Potassium 4.4 (3.3-5.1) mmol/L Chloride 93 L (96-108) mmol/L Carbon Dioxide 23 (22-29) mmol/L Anion Gap 12 (12-20) BUN 22 H (9-16) mg/dL Creatinine 0.86 (0.5-1.4) mg/dL Estim Creat Clear Calc 111.2 Estimated GFR > 60 Random Glucose 142 H (60-115) mg/dL Calcium 8.6 (8.4-10.2) mg/dL Total Bilirubin 0.6 (0.0-1.0) mg/dL AST 15 (5-37) U/L ALT 12 (0-40) U/L Alkaline Phosphatase 62 (39-117) U/L Troponin I High Sens < 3.5 (<3.5-35.0) ng/L Total Protein 5.8 L (6.5-8.0) g/dL Albumin 3.4 L (3.5-5.0) g/dL ECG Data ECG #1: Attestation: I personally reviewed and interpreted this ECG as follows: Interpretation: atrial flutter with ventricular rate of 67 beats per minute, no acute ischemic changes Discharge Plan Discharge Clinical Impression: SIADH (syndrome of inappropriate ADH production), Hyponatremia, Depression with suicidal ideation Prescriptions: No Action dexlansoprazole [Dexilant] 60 mg capsule,biphase delayed releas 60 mg PO DAILY Qty: 28 RF: 11 hydralazine 50 mg tablet 50 mg PO BID 90 Days Qty: 180 RF: 2 acetaminophen 325 mg tablet 650 mg PO Q4H PRN (Reason: fever or pain) 90 Days Qty: 180 RF: 2 propranolol 20 mg tablet 20 mg PO TID 90 Days Qty: 270 RF: 1 furosemide 20 mg tablet 20 mg PO QAM Qty: 28 RF: 3 aspirin [Ecotrin Low Strength] 81 mg Tablet,Delayed Release (Dr/Ec) 81 mg PO DAILY RF: 0 divalproex [Depakote ER] 500 mg Tablet Extended Release 24 Hr 1,000 mg PO BID RF: 0 Citrucel 500 mg Tablet 500 mg PO DAILY RF: 0 dicyclomine 20 mg Tablet 20 mg PO Q6H PRN (Reason: Cramps) RF: 0 fluticasone propion-salmeterol [Advair Diskus] 250-50 mcg/dose blister with device 1 puff inhalation BID RF: 0 diphenoxylate-atropine [Lomotil] 2.5-0.025 mg Tablet 1 tab PO DAILY RF: 0 simethicone 125 mg Tablet,Chewable 125 mg PO QID PRN (Reason: Abdominal Discomfort) RF: 0 ondansetron 4 mg Tablet,Disintegrating 4 mg PO Q6H PRN (Reason: Nausea) RF: 0 cholecalciferol (vitamin D3) 25 mcg (1,000 unit) tablet 25 mcg PO DAILY RF: 0 atorvastatin 10 mg tablet 10 mg PO BEDTIME RF: 0 cyanocobalamin (vitamin B-12) 1,000 mcg tablet 1,000 mcg PO DAILY@1999 RF: 0 ferrous sulfate 325 mg (65 mg iron) Tablet 325 mg PO BID RF: 0 fluticasone propionate [Flonase] 50 mcg/actuation [place],Suspension 1 spray INTRANASAL BID RF: 0 metformin [Glucophage] 500 mg Tablet 500 mg PO BID RF: 0 lisinopril 20 mg tablet 1 tab PO DAILY RF: 0 gabapentin 100 mg capsule 200 mg PO BID RF: 0 risperidone 3 mg tablet 1 tab PO BID RF: 0 Reguloid (psyllium husk) 0.5 g PO DAILY RF: 0 lactase [Lactaid] 3,000 unit tablet 3,000 unit PO TIDWM Qty: 90 RF: 0 Ure-Na 15 gram powder in packet 1 packet PO DAILY Qty: 8 RF: 0 amlodipine [Norvasc] 5 mg tablet 5 mg PO DAILY RF: 0
--- NOTE | 2021-08-14 22:37 | PC.NURSE ---
belongings list done by by this nurse belongings secured in pod locker #7
--- NOTE | 2021-08-14 23:16 | ECG_ITS ---
Test Reason : CHEST PAIN Blood Pressure : / mmHG Vent. Rate : 067 BPM Atrial Rate : 288 BPM P-R Int : 000 ms QRS Dur : 088 ms QT Int : 392 ms P-R-T Axes : 054 005 039 degrees QTc Int : 414 ms Atrial flutter Abnormal ECG When compared with ECG of 14-AUG-2021 21:47, Atrial flutter has replaced Sinus rhythm Referred By: Daniel Carlin Electronically Signed By:
[2021-08-14 23:57] LABS: MANUAL DIFF FLAG NO
[2021-08-15] LABS: Basophils Percent Auto 0.3 % (0-2); Eosinophils Absolute Auto 0.1 X10*3/uL (0.0-0.4); Eosinophils Percent Auto 1.6 % (0-4); Hematocrit 29.2 % (42-52); Hemoglobin 10.5 g/dl (14.0-18.0); Imm Gran Abs Auto 0.04 X10*3/uL (0.00-0.03); Imm Gran Pct Auto 0.6 % (0.0-0.4); Lymphocytes Absolute Auto 1.9 X10*3/uL (1.2-4.9); Lymphocytes Percent Auto 29.2 % (20-40); Mean Corpuscular Hemoglobin 29.9 pg (27.0-33.0); Mean Corpuscular Volume 83.2 fL (80-98); Mean Platelet Volume 9.6 fL (9.4-12.4); Monocytes Absolute Auto 0.8 X10*3/uL (0.1-1.2); Monocytes Percent Auto 12.1 % (2-11); Neutrophils Absolute Auto 3.6 X10*3/uL (2.0-8.3); Neutrophils Percent Auto 56.2 % (45-73); Platelet Count 120 X10*3/uL (160-400); Red Blood Count 3.51 X10*6/uL (4.60-5.80); Red Cell Distribution Width 13.3 % (11.0-16.0); White Blood Count 6.4 X10*3/uL (4.8-10.8)
[2021-08-15 00:23] LABS: Troponin-I High Sensitivity < 3.5 ng/L (<3.5-35.0)
[2021-08-15 00:25] LABS: Alanine Aminotransferase 12 U/L (0-40); Albumin Level 3.4 g/dL (3.5-5.0); Alkaline Phosphatase 62 U/L (39-117); Anion Gap 12 (12-20); Aspartate Amino Transferase 15 U/L (5-37); Bilirubin Total 0.6 mg/dL (0.0-1.0); Blood Urea Nitrogen 22 mg/dL (9-16); Calcium 8.6 mg/dL (8.4-10.2); Carbon Dioxide 23 mmol/L (22-29); Chloride 93 mmol/L (96-108); Creatinine Clr Calc Pharmacy 111.2; Estimated Glomerular Filt Rate > 60; Glucose Random 142 mg/dL (60-115); Potassium 4.4 mmol/L (3.3-5.1); Sodium 124 mmol/L (135-145); Total Protein 5.8 g/dL (6.5-8.0)
[2021-08-15] MEDS: Urea 15 GM POWDER PO ×2 (01:18→10:55)
[2021-08-15 02:39] VITALS: BP 117/63; PULSE 74; RESP 16; TEMP 36.7; O2SAT 99
--- NOTE | 2021-08-15 07:11 | PC.NURSE ---
aox3 speaking in full clear sentences. pt denies any complaints at this time. plan to see crisis and pt is aware of plan of care.
[2021-08-15 09:46] LABS: Glucose, Whole Blood 84 mg/dL (60-115)
--- NOTE | 2021-08-15 10:23 | PHA.MEDREC ---
Pharmacy Consult ? Medication Reconciliation Pharmacy has completed the medication reconciliation. There are no remarkable issues for provider's attention. I contacted Petra Mathew to verify medications with the list brought in. Shannon Correia, ZoilaD
--- NOTE | 2021-08-15 10:39 | PC.NURSE ---
plan for dc- call placed to [facility] for ride home. unable to. plan for ambulance ride home.
[2021-08-15 10:45] VITALS: BP 122/61; PULSE 80; RESP 16; TEMP 37.1; O2SAT 100
--- NOTE | 2021-08-15 13:13 | MHC.CARE ---
CARE Team speaks with Brenda ([phone]), group chief operator from pt[facility]s [facility]. She advises CARE Team that pt appeared to be in a good place yesterday in that he was having a good day and was somewhat cheerful.? Later in the day he grew ?Lemus?, refused his medication, and later agreed to take it.? Pt ate dinner, complained of stomach discomfort, refused his medications again and later agreed to take them.? He watched the baseball game later in the evening and appeared to be enjoying the game.? Later, he advised staff that he wanted to see crisis.? When staff called mobile crisis, pt stated he had chest pain.? manager icu stated that they had no choice but to call an ambulance when pt stated he had chest pain.? EMS arrived, his mood improved, and pt was taken to the [facility] ED. manager icu stated that pt has a lot of dietary restrictions due to a variety of medical conditions.? He is not always pleased with his restrictions.? manager icu stated that pt has some conflict with his housemates.? She describes the dynamic as that of ?5 brothers?.? They bicker, tease one another etc.? She does not believe that there is any malice associated with these interactions.? These interactions have been a source for pt no longer wanting to live at the [facility].? She advises CARE Team that there is a search for a new [facility] but the process can be lengthy. manager icu said that pt is not always compliant with his medication as prescribed, refusing his medications at times. Pt has a hx of rotating through [facility] and this facility.? His guardian mandated that he could no longer go to [facility] and that he must go to this facility.? manager icu stated that pt is aware of what he must say to initiate transport to a hospital.? He is often untruthful in his report, demonstrating goal directed behavior to be brought to this facility.? She believes that the goal is to access food he would not normally be able to access due to dietary restrictions, and to be away from the [facility] as he does not like it there. Pt does not meet criteria for in patient level of care.? The plan is for pt to be discharged back to the [facility].? This disposition was discussed with and agreed upon by pt?s provider PANKAJ Schwartz and CARE Admin Asst Brisa Álvarez [facility].
== END 2021-08-15 11:41 | disposition other institution (70) ==
PROVIDERS: Emergency Provider Internal Medicine
DX: E22.2 Syndrome of inappropriate secretion of antidiuretic hormone (principal); R44.0 Auditory hallucinations; F33.1 Major depressive disorder, recurrent, moderate; R45.851 Suicidal ideations; Z79.899 Other long term (current) drug therapy
CPT/HCPCS: 36415; 80053; 82947; 84484; 85025; 93005; 99284

== ENCOUNTER 2021-08-15 13:31 | Emergency (ER) | payer MEDICARE, MEDICAID, SELFPAY ==
[2021-08-15 13:38] VITALS: BP 160/94; PULSE 88; O2SAT 99
--- NOTE | 2021-08-15 17:10 | ED_ITS ---
HPI - Medical Clearance General Chief complaint: Anxiety Stated complaint: SI Time Seen by Provider: 08/15/21 17:10 Source: patient and EMS Mode of arrival: EMS Limitations: no limitations History of Present Illness HPI Narrative: 50-year-old male who was just discharged from this department a few hours ago presents back to the ER with chronic suicidal ideation. He has no plan. He has been to the emergency room for this several times before. He has never attempted to harm himself. He admits to ongoing depression and unhappiness at his [place] [facility]. He reports poor care and people being mean to him. He denies chest pain and abdominal pain. MD complaint: medical clearance requested Onset (ago): year(s) Reason for Medical Clearance: psychiatric condition Place: home Alleged Intoxication: No Compliant with Home Medications: No Traumatic Symptoms: denies traumatic injury Associated Symptoms: denies other symptoms Treatments Prior to Arrival: none Related Information Home Medications Medication Instructions Recorded Confirmed atorvastatin 10 mg tablet 10 mg PO BEDTIME 11/28/20 08/15/21 aspirin 81 mg tablet,delayed 81 mg PO DAILY 01/23/21 08/15/21 release (Ecotrin Low Strength) divalproex 500 mg tablet,extended 1,000 mg PO BID 01/23/21 08/15/21 release 24 hr (Depakote ER) dicyclomine 20 mg tablet 20 mg PO Q6H PRN 04/26/21 08/15/21 methylcellulose (laxative) 500 mg 500 mg PO DAILY 04/26/21 08/15/21 tablet (Citrucel) cyanocobalamin (vitamin B-12) 1,000 mcg PO DAILY@199905/07/21 08/15/21 1,000 mcg tablet amlodipine 5 mg tablet (Norvasc) 5 mg PO DAILY 06/20/21 08/15/21 ferrous sulfate 325 mg (65 mg 325 mg PO BID 06/23/21 08/15/21 iron) tablet fluticasone propionate 50 1 spray INTRANASAL BID 06/23/21 08/15/21 mcg/actuation nasal spray,suspension gabapentin 100 mg capsule 200 mg PO BID 06/23/21 08/15/21 lisinopril 20 mg tablet 1 tab PO DAILY 06/23/21 08/15/21 metformin 500 mg tablet 500 mg PO BID 06/23/21 08/15/21 risperidone 3 mg tablet 1 tab PO BID 06/23/21 08/15/21 cholecalciferol (vitamin D3) 25 25 mcg PO DAILY 07/29/21 08/15/21 mcg (1,000 unit) tablet diphenoxylate-atropine 2.5 2 tab PO TID PRN 07/29/21 08/15/21 mg-0.025 mg tablet (Lomotil) fluticasone 250 mcg-salmeterol 50 1 puff INHALATION BID 07/29/21 08/15/21 mcg/dose blistr powdr for inhalation (Advair Diskus) ondansetron 4 mg disintegrating 4 mg PO Q6H PRN 07/29/21 08/15/21 tablet simethicone 125 mg chewable tablet 125 mg PO QID PRN 07/29/21 08/15/21 albuterol sulfate 90 mcg/actuation 2 puff INHALATION Q6H PRN 08/15/21 08/15/21 aerosol inhaler dexlansoprazole 60 mg 60 mg PO BEDTIME 08/15/21 08/15/21 capsule,biphase delayed release (Dexilant) dextromethorphan-guaifenesin 5 10 ml PO Q4H PRN 08/15/21 08/15/21 mg-100 mg/5 mL oral liquid (Robitussin Cough-Chest Congestion DM) propranolol 20 mg tablet 20 mg PO TID@0800,1600,2000 08/15/21 08/15/21 triamcinolone acetonide 0.1 % 1 appl TOPICAL TID PRN 08/15/21 08/15/21 topical cream Previous Rx's Medication Instructions Recorded hydralazine 50 mg tablet 50 mg PO BID 90 Days #180 tab 03/12/21 acetaminophen 325 mg tablet 650 mg PO Q4H PRN 90 Days #180 tab 04/27/21 furosemide 20 mg tablet 20 mg PO QAM #28 tab 06/05/21 lactase 3,000 unit tablet (Lactaid) 3,000 unit PO TIDWM #90 tab 08/02/21 urea 15 gram oral powder packet 1 packet PO DAILY #8 ea 08/03/21 (Ure-Na) nut.therapy,urea cycle disordr 15 1 ea PO BID #400 g 08/15/21 gram-393 kcal/100 gram oral pwdr Allergies Allergy/AdvReac Type Severity Reaction Status Date / Time Sulfa (Sulfonamide Allergy Severe CHAVEZ Verified 08/02/21 14:35 Antibiotics) ALICIA REACTION, Chavez Alicia trimethoprim Allergy Mild UNKNOWN Verified 08/02/21 14:35 lactose AdvReac Mild STOMACH Verified 08/02/21 14:35 UPSET Review of Systems Review of Systems: Constitutional: No Fever, No Chills Cardiovascular: No Chest Pain, No SOB Respiratory: No Cough, No Sputum Gastrointestinal: No Nausea, No Vomiting, No Diarrhea, No abdominal Pain Musculoskeletal: No joint pain, No Myalgias Skin: No Skin Lesions, No rash Neuro: No Dizziness, No Headache Psych: No Anxiety/Panic, + Depression. SI Heme/Lymph: No Bruising, No Lymphadenopathy PMFSH Past Medical History Medical History Anemia Anxiety Asthma Cerebellar ataxia Depression Essential hypertension Hyperlipidemia LDL goal <100 Hypertension Hyponatremia Lactose intolerance Mental disability Obesity due to excess calories Peripheral vascular disease Proteinuria Right ankle pain Seizure disorder Type 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 Vertigo Surgical History History of orchiectomy Family History Family History Father Myocardial infarction CVD (cardiovascular disease) Diabetes mellitus Mother Diabetes mellitus HTN (hypertension) Brother In good health Sister In good health Social History Social History Household Members: Other Household Members Other:: [facility] Housing: Other Housing Other[place] [facility] Do you presently have visiting nurse or other home services: Yes Alcohol intake: never Patient Tobacco Use Status: Never used Tobacco e-Cigarette/Vaping Use: Never Used Second Hand Smoke Exposure: No Advance Directives: No Advance Directives Information Provided: No Advance Directives Date on File: 05/23/21 service: No Current occupational status: disabled Physical Exam Vital Signs: Vital Signs: Last Vital Signs Temp 98.9 F 08/15/21 17:13 Pulse 96 08/15/21 17:13 Resp 16 08/15/21 17:13 BP 151/93 H 08/15/21 17:13 Pulse Ox 99 08/15/21 17:13 Body Mass Index 33.3 Appearance: Alert. Oriented X3. No acute distress. Sitting in wheelchair. Eyes: Pupils equal, round and reactive to light. ENT: Pharynx normal. Neck: Normal inspection. Neck supple. CVS: Normal heart rate and rhythm. Pulses normal. Respiratory: No respiratory distress. Breath sounds normal. Skin: Skin warm and dry. Normal skin color. Normal skin turgor. No rashes. Extremities: No lower extremity edema. Neuro: Oriented X 3. Flat affect, grossly nonfocal. speaks in complete sentences. Course Course Course Narrative: 50-year-old male with a history of chronic depression and chronic suicidal ideation presents to the ER for re-evaluation this afternoon. He was just discharged from the ER this morning. He continues to be suicidal which has been ongoing for months and years. He had a recent hospitalization at [facility] with no improvement in his suicidality. He admits to his depression being directly related to his [place] [facility]. The [place] [facility] feels like they can handle him just fine. At this time he has no physical complaints. Case was discussed in depth with multiple members of the care team. Plan is to discharge home and have PH and evaluate low in the community at his home. Additional resources can be provided at that time. He is very low risk. Stable for discharge home. Discharge Plan Discharge Clinical Impression: Depression Qualifiers: Depression Type: major depressive disorder Major depression recurrence: recurrent Active/Remission status: currently active Major depression episode severity: unspecified Qualified Code(s): F33.9 - Major depressive disorder, recurrent, unspecified Patient Disposition: Xfer Other Transfer Details: long-term Instructions: Depression (ED) Additional Instructions: Follow up with your doctor, therapist, and psychiatrist. You just had a full medical work up that was unremarkable. Your ongoing issues need to be followed up by your doctors, call for appointments as soon as possible. Prescriptions: No Action hydralazine 50 mg tablet 50 mg PO BID 90 Days Qty: 180 RF: 2 acetaminophen 325 mg tablet 650 mg PO Q4H PRN (Reason: fever or pain) 90 Days Qty: 180 RF: 2 furosemide 20 mg tablet 20 mg PO QAM Qty: 28 RF: 3 aspirin [Ecotrin Low Strength] 81 mg Tablet,Delayed Release (Dr/Ec) 81 mg PO DAILY RF: 0 divalproex [Depakote ER] 500 mg Tablet Extended Release 24 Hr 1,000 mg PO BID RF: 0 Citrucel 500 mg Tablet 500 mg PO DAILY RF: 0 dicyclomine 20 mg Tablet 20 mg PO Q6H PRN (Reason: Cramps) RF: 0 fluticasone propion-salmeterol [Advair Diskus] 250-50 mcg/dose blister with device 1 puff inhalation BID RF: 0 diphenoxylate-atropine [Lomotil] 2.5-0.025 mg Tablet 2 tab PO TID PRN (Reason: Diarrhea) RF: 0 simethicone 125 mg Tablet,Chewable 125 mg PO QID PRN (Reason: Abdominal Discomfort) RF: 0 ondansetron 4 mg Tablet,Disintegrating 4 mg PO Q6H PRN (Reason: Nausea) RF: 0 cholecalciferol (vitamin D3) 25 mcg (1,000 unit) tablet 25 mcg PO DAILY RF: 0 atorvastatin 10 mg tablet 10 mg PO BEDTIME RF: 0 cyanocobalamin (vitamin B-12) 1,000 mcg tablet 1,000 mcg PO DAILY@1999 RF: 0 ferrous sulfate 325 mg (65 mg iron) Tablet 325 mg PO BID RF: 0 fluticasone propionate [Flonase] 50 mcg/actuation [place],Suspension 1 spray INTRANASAL BID RF: 0 metformin [Glucophage] 500 mg Tablet 500 mg PO BID RF: 0 lisinopril 20 mg tablet 1 tab PO DAILY RF: 0 gabapentin 100 mg capsule 200 mg PO BID RF: 0 risperidone 3 mg tablet 1 tab PO BID RF: 0 triamcinolone acetonide [Kenalog] 0.1 % Cream 1 appl TOPICAL TID PRN (Reason: Rash) RF: 0 Robitussin Cough-Chest [place] DM 5-100 mg/5 mL Liquid 10 ml PO Q4H PRN (Reason: Cough) RF: 0 albuterol sulfate 90 mcg/actuation Hfa Aerosol Inhaler 2 puff INHALATION Q6H PRN (Reason: Wheezing) RF: 0 propranolol 20 mg tablet 20 mg PO TID@0800,1600,1999 RF: 0 Dexilant 60 mg capsule,biphase delayed releas 60 mg PO BEDTIME RF: 0 nut.therapy,urea cycle disordr 15 gram-393 kcal/100 gram powder 1 ea PO BID Qty: 400 RF: 0 lactase [Lactaid] 3,000 unit tablet 3,000 unit PO TIDWM Qty: 90 RF: 0 Ure-Na 15 gram powder in packet 1 packet PO DAILY Qty: 8 RF: 0 amlodipine [Norvasc] 5 mg tablet 5 mg PO DAILY RF: 0
[2021-08-15 17:13] VITALS: BP 151/93; PULSE 96; RESP 16; TEMP 37.2; O2SAT 99; BMI 33.3
== END 2021-08-15 18:31 | disposition other institution (70) ==
LOC: HO.ED 17:20
PROVIDERS: Emergency Provider Internal Medicine; PCP Internal Medicine
DX: F33.9 Major depressive disorder, recurrent, unspecified (principal); R45.851 Suicidal ideations; Z79.899 Other long term (current) drug therapy
CPT/HCPCS: 99283

== ENCOUNTER 2021-08-17 00:02 | Emergency (ER) | payer MEDICARE, MEDICAID, SELFPAY ==
[2021-08-17 00:06] VITALS: BP 147/75; BP 151/64; PULSE 76; PULSE 83; RESP 16; TEMP 36.7; O2SAT 96; O2SAT 99; BMI 35.6
--- NOTE | 2021-08-17 00:50 | ECG_ITS ---
Test Reason : CHEST PAIN Blood Pressure : / mmHG Vent. Rate : 067 BPM Atrial Rate : 067 BPM P-R Int : 184 ms QRS Dur : 094 ms QT Int : 412 ms P-R-T Axes : 073 002 053 degrees QTc Int : 435 ms Normal sinus rhythm Low voltage QRS Otherwise normal ECG When compared with ECG of 14-AUG-2021 21:47, No significant change was found Referred By: Vanna Westfall Electronically Signed By:VERONICA CRUMP MD
--- NOTE | 2021-08-17 01:08 | ED.PSYCH ---
HPI - Psych General Chief Complaint: Psychiatric Symptoms Stated Complaint: chest pain/SI Time Seen by Provider: 08/17/21 00:50 Source: patient and EMS Mode of arrival: EMS Limitations: no limitations History of Present Illness HPI Narrative: Patient comes emergency room complaining of chest pain. Patient is well-known to our department, when patient has an argument at his assisted, he comes in complaining of chest pain. Patient states he did have an argument with his assisted director. Related Data Home Medications Medication Instructions Recorded Confirmed atorvastatin 10 mg tablet 10 mg PO BEDTIME 11/28/20 08/15/21 aspirin 81 mg tablet,delayed 81 mg PO DAILY 01/23/21 08/15/21 release (Ecotrin Low Strength) divalproex 500 mg tablet,extended 1,000 mg PO BID 01/23/21 08/15/21 release 24 hr (Depakote ER) dicyclomine 20 mg tablet 20 mg PO Q6H PRN 04/26/21 08/15/21 methylcellulose (laxative) 500 mg 500 mg PO DAILY 04/26/21 08/15/21 tablet (Citrucel) cyanocobalamin (vitamin B-12) 1,000 mcg PO DAILY@199905/07/21 08/15/21 1,000 mcg tablet amlodipine 5 mg tablet (Norvasc) 5 mg PO DAILY 06/20/21 08/15/21 ferrous sulfate 325 mg (65 mg 325 mg PO BID 06/23/21 08/15/21 iron) tablet fluticasone propionate 50 1 spray INTRANASAL BID 06/23/21 08/15/21 mcg/actuation nasal spray,suspension gabapentin 100 mg capsule 200 mg PO BID 06/23/21 08/15/21 lisinopril 20 mg tablet 1 tab PO DAILY 06/23/21 08/15/21 metformin 500 mg tablet 500 mg PO BID 06/23/21 08/15/21 risperidone 3 mg tablet 1 tab PO BID 06/23/21 08/15/21 cholecalciferol (vitamin D3) 25 25 mcg PO DAILY 07/29/21 08/15/21 mcg (1,000 unit) tablet diphenoxylate-atropine 2.5 2 tab PO TID PRN 07/29/21 08/15/21 mg-0.025 mg tablet (Lomotil) fluticasone 250 mcg-salmeterol 50 1 puff INHALATION BID 07/29/21 08/15/21 mcg/dose blistr powdr for inhalation (Advair Diskus) ondansetron 4 mg disintegrating 4 mg PO Q6H PRN 07/29/21 08/15/21 tablet simethicone 125 mg chewable tablet 125 mg PO QID PRN 07/29/21 08/15/21 albuterol sulfate 90 mcg/actuation 2 puff INHALATION Q6H PRN 08/15/21 08/15/21 aerosol inhaler dexlansoprazole 60 mg 60 mg PO BEDTIME 08/15/21 08/15/21 capsule,biphase delayed release (Dexilant) dextromethorphan-guaifenesin 5 10 ml PO Q4H PRN 08/15/21 08/15/21 mg-100 mg/5 mL oral liquid (Robitussin Cough-Chest Congestion DM) propranolol 20 mg tablet 20 mg PO TID@0800,1600,2000 08/15/21 08/15/21 triamcinolone acetonide 0.1 % 1 appl TOPICAL TID PRN 08/15/21 08/15/21 topical cream Previous Rx's Medication Instructions Recorded hydralazine 50 mg tablet 50 mg PO BID 90 Days #180 tab 03/12/21 acetaminophen 325 mg tablet 650 mg PO Q4H PRN 90 Days #180 tab 04/27/21 furosemide 20 mg tablet 20 mg PO QAM #28 tab 06/05/21 lactase 3,000 unit tablet (Lactaid) 3,000 unit PO TIDWM #90 tab 08/02/21 urea 15 gram oral powder packet 1 packet PO DAILY #8 ea 08/03/21 (Ure-Na) nut.therapy,urea cycle disordr 15 1 ea PO BID #400 g 08/15/21 gram-393 kcal/100 gram oral pwdr Allergies Allergy/AdvReac Type Severity Reaction Status Date / Time Sulfa (Sulfonamide Allergy Severe LANDEROS Verified 08/02/21 14:35 Antibiotics) ALICIA REACTION, Landeros Alicia trimethoprim Allergy Mild UNKNOWN Verified 08/02/21 14:35 lactose AdvReac Mild STOMACH Verified 08/02/21 14:35 UPSET Review of Systems Review of Systems: Constitutional : No Weight loss, No Fever, No Chills, No Night Sweats, No Fatigue, No Malaise ENT/Mouth : No Hearing loss, No Ear Pain, No Nasal Congestion, No Sinus Pain, No Hoarseness, No sore throat, No Rhinorrhea, No Swallowing Difficulty Eyes: No Eye Pain, No Swelling, No Redness, No Foreign Body, No Discharge, No Vision Changes Cardiovascular : Complaining of Chest Pain, No SOB, No Dyspnea on Exertion, No Orthopnea, No Edema, No Palpitations Respiratory : No Cough, No Sputum, No Wheezing, No Smoke Exposure, No Dyspnea Gastrointestinal : No Nausea, No Vomiting, No Diarrhea, No Constipation, No abdominal Pain, No Hematochezia, No Melena Genitourinary : no irregular bleeding, No Dysuria, No Urinary Frequency, No Hematuria, No Urinary Incontinence, No Urgency, No Flank Pain, No Urinary Flow Changes, No Hesitancy Musculoskeletal : No joint pain, No Myalgias, No Joint Swelling Skin : No Skin Lesions, No rash Neuro : No Weakness, No Numbness, No Paresthesias, No Loss of Consciousness, No Dizziness, No Headache Psych : No Anxiety/Panic, No Depression, No SI/HI/AH/VH, No Social Issues, Heme/Lymph: No Bruising, No Bleeding,No Lymphadenopathy Endocrine : No Polyuria, No Polydipsia, No Temperature Intolerance PMFSH Past Medical History Medical History Anemia Anxiety Asthma Cerebellar ataxia Depression Essential hypertension Hyperlipidemia LDL goal <100 Hypertension Hyponatremia Lactose intolerance Mental disability Obesity due to excess calories Peripheral vascular disease Proteinuria Right ankle pain Seizure disorder Type 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 Vertigo Surgical History History of orchiectomy Family History Family History Father Myocardial infarction CVD (cardiovascular disease) Diabetes mellitus Mother Diabetes mellitus HTN (hypertension) Brother In good health Sister In good health Social History Social History Household Members: Other Household Members Other:: from assisted Housing: Other Housing Other:: assisted Do you presently have visiting nurse or other home services: Yes Alcohol intake: never Patient Tobacco Use Status: Never used Tobacco e-Cigarette/Vaping Use: Never Used Second Hand Smoke Exposure: No Use of substances other than those prescribed or required for medical reasons: No Advance Directives: No Advance Directives Date on File: 05/23/21 service: No Current occupational status: disabled Physical Exam Vital Signs: Vital Signs: Last Vital Signs Temp 98.1 F 08/17/21 00:06 Pulse 71 08/17/21 01:33 Resp 16 08/17/21 01:33 BP 146/70 H 08/17/21 01:33 Pulse Ox 100 08/17/21 01:33 Body Mass Index 35.6 Const: Other: Appearance: Alert. Oriented X3. No acute distress. Eyes: Pupils equal, round and reactive to light. ENT: Pharynx normal. Neck: Normal inspection. Neck supple. No lymph nodes noted. No crepitus CVS: Normal heart rate and rhythm. Pulses normal. Normal S1 and S2 Respiratory: No respiratory distress. Breath sounds normal. No Wheezing. No rales Abdomen: Soft and nontender. No rigidity. No distention. good BS x4 Skin: Skin warm and dry. Normal skin color. Normal skin turgor. Extremities: No lower extremity edema. No Lacerations. No Rash Neuro: Oriented X 3. No motor deficit. No sensory deficit. Moving all extermities. No slurred speech. Course Course Course Narrative: Patient's troponin pending. Patient will likely be returning to his assisted after the labs result. EKG within normal limits. Patient well appearing, not complaining of any active chest pain. Sign-out given to Dr. Braxton [facility] - Psych Lab Data Result diagrams: 08/17/21 01:22 08/17/21 01:22 Labs: Lab Results 08/17/21 Range/Units 01:22 WBC 5.6 (4.8-10.8) X10*3/uL RBC 3.44 L (4.60-5.80) X10*6/uL Hgb 10.3 L (14.0-18.0) g/dl Hct 29.4 L (42-52) % MCV 85.5 (80-98) fL MCH 29.9 (27.0-33.0) pg MCHC 35.0 (31.0-36.0) g/dl RDW 13.6 (11.0-16.0) % Plt Count 113 L (160-400) X10*3/uL MPV 10.0 (9.4-12.4) fL Immature Gran % (Auto) 0.7 H (0.0-0.4) % Neut % (Auto) 51.4 (45-73) % Lymph % (Auto) 32.6 (20-40) % Forest % (Auto) 13.9 H (2-11) % Eos % (Auto) 0.9 (0-4) % Baso % (Auto) 0.5 (0-2) % Lymph # (Auto) 1.8 (1.2-4.9) X10*3/uL Forest # (Auto) 0.8 (0.1-1.2) X10*3/uL Eos # (Auto) 0.1 (0.0-0.4) X10*3/uL Baso # (Auto) 0.0 (0.0-0.2) X10*3/uL Abs Immat Gran (auto) 0.04 H (0.00-0.03) X10*3/uL Absolute Neuts (auto) 2.9 (2.0-8.3) X10*3/uL Absolute Nucleated RBC 0.000 (0.0-0.012) X10*3/uL Nucleated RBC % (auto) 0.0 (0.0-0.2) /100WBC ECG Data Attestation: I personally reviewed and interpreted this ECG as follows: (Sinus rhythm, heart rate 67, no ST segment depression or elevation, no T-wave inversion, QTC 435) Discharge Plan Discharge Clinical Impression: Anxiety, Atypical chest pain Patient Disposition: Xfer Other Transfer Details: care home Instructions: Anxiety (ED), Chest Pain (ED) Additional Instructions: Please follow-up with your primary care physician tomorrow. If you have any worsening or new symptoms, please return to the emergency room or call 911 Prescriptions: No Action hydralazine 50 mg tablet 50 mg PO BID 90 Days Qty: 180 RF: 2 acetaminophen 325 mg tablet 650 mg PO Q4H PRN (Reason: fever or pain) 90 Days Qty: 180 RF: 2 furosemide 20 mg tablet 20 mg PO QAM Qty: 28 RF: 3 aspirin [Ecotrin Low Strength] 81 mg Tablet,Delayed Release (Dr/Ec) 81 mg PO DAILY RF: 0 divalproex [Depakote ER] 500 mg Tablet Extended Release 24 Hr 1,000 mg PO BID RF: 0 Citrucel 500 mg Tablet 500 mg PO DAILY RF: 0 dicyclomine 20 mg Tablet 20 mg PO Q6H PRN (Reason: Cramps) RF: 0 fluticasone propion-salmeterol [Advair Diskus] 250-50 mcg/dose blister with device 1 puff inhalation BID RF: 0 diphenoxylate-atropine [Lomotil] 2.5-0.025 mg Tablet 2 tab PO TID PRN (Reason: Diarrhea) RF: 0 simethicone 125 mg Tablet,Chewable 125 mg PO QID PRN (Reason: Abdominal Discomfort) RF: 0 ondansetron 4 mg Tablet,Disintegrating 4 mg PO Q6H PRN (Reason: Nausea) RF: 0 cholecalciferol (vitamin D3) 25 mcg (1,000 unit) tablet 25 mcg PO DAILY RF: 0 atorvastatin 10 mg tablet 10 mg PO BEDTIME RF: 0 cyanocobalamin (vitamin B-12) 1,000 mcg tablet 1,000 mcg PO DAILY@1999 RF: 0 ferrous sulfate 325 mg (65 mg iron) Tablet 325 mg PO BID RF: 0 fluticasone propionate [Flonase] 50 mcg/actuation [place],Suspension 1 spray INTRANASAL BID RF: 0 metformin [Glucophage] 500 mg Tablet 500 mg PO BID RF: 0 lisinopril 20 mg tablet 1 tab PO DAILY RF: 0 gabapentin 100 mg capsule 200 mg PO BID RF: 0 risperidone 3 mg tablet 1 tab PO BID RF: 0 triamcinolone acetonide [Kenalog] 0.1 % Cream 1 appl TOPICAL TID PRN (Reason: Rash) RF: 0 Robitussin Cough-Chest Maury DM 5-100 mg/5 mL Liquid 10 ml PO Q4H PRN (Reason: Cough) RF: 0 albuterol sulfate 90 mcg/actuation Hfa Aerosol Inhaler 2 puff INHALATION Q6H PRN (Reason: Wheezing) RF: 0 propranolol 20 mg tablet 20 mg PO TID@0800,1600,1999 RF: 0 Dexilant 60 mg capsule,biphase delayed releas 60 mg PO BEDTIME RF: 0 nut.therapy,urea cycle disordr 15 gram-393 kcal/100 gram powder 1 ea PO BID Qty: 400 RF: 0 lactase [Lactaid] 3,000 unit tablet 3,000 unit PO TIDWM Qty: 90 RF: 0 Ure-Na 15 gram powder in packet 1 packet PO DAILY Qty: 8 RF: 0 amlodipine [Norvasc] 5 mg tablet 5 mg PO DAILY RF: 0
--- NOTE | 2021-08-17 01:24 | PC.NURSE ---
pt alert and oriented, skin pwd, respirations even and unlabored. pt reports maternal chest pain and feels slightly sob, pt also states getting into an argument with his house manger but those not remember what it was over and wants to hurt himself by jumping in front of a car
[2021-08-17 01:33] VITALS: BP 146/70; PULSE 71; RESP 16; O2SAT 100
[2021-08-17 01:43] LABS: Basophils Percent Auto 0.5 % (0-2); Imm Gran Abs Auto 0.04 X10*3/uL (0.00-0.03); Imm Gran Pct Auto 0.7 % (0.0-0.4); PLT CLUMP 1; Red Cell Distribution Width 13.6 % (11.0-16.0); SCAN SMEAR FLAG 1
[2021-08-17 01:45] LABS: Eosinophils Absolute Auto 0.1 X10*3/uL (0.0-0.4); Eosinophils Percent Auto 0.9 % (0-4); Hematocrit 29.4 % (42-52); Hemoglobin 10.3 g/dl (14.0-18.0); Lymphocytes Absolute Auto 1.8 X10*3/uL (1.2-4.9); Lymphocytes Percent Auto 32.6 % (20-40); Mean Corpuscular Hemoglobin 29.9 pg (27.0-33.0); Mean Corpuscular Volume 85.5 fL (80-98); Monocytes Absolute Auto 0.8 X10*3/uL (0.1-1.2); Monocytes Percent Auto 13.9 % (2-11); Neutrophils Absolute Auto 2.9 X10*3/uL (2.0-8.3); Neutrophils Percent Auto 51.4 % (45-73); Platelet Count 113 X10*3/uL (160-400); Red Blood Count 3.44 X10*6/uL (4.60-5.80); White Blood Count 5.6 X10*3/uL (4.8-10.8)
[2021-08-17 01:46] LABS: MANUAL DIFF FLAG NO
[2021-08-17 01:56] LABS: Anion Gap 12 (12-20); Blood Urea Nitrogen 29 mg/dL (9-16); Calcium 8.8 mg/dL (8.4-10.2); Carbon Dioxide 25 mmol/L (22-29); Chloride 96 mmol/L (96-108); Creatinine Clr Calc Pharmacy 87.8; Estimated Glomerular Filt Rate > 60; Glucose Random 79 mg/dL (60-115); Sodium 128 mmol/L (135-145)
[2021-08-17 02:01] LABS: Troponin-I High Sensitivity < 3.5 ng/L (<3.5-35.0)
== END 2021-08-17 04:38 | disposition other institution (70) ==
PROVIDERS: Emergency Provider Emergency Medicine
DX: R07.89 Other chest pain (principal); F41.9 Anxiety disorder, unspecified; I10 Essential (primary) hypertension; E11.9 Type 2 diabetes mellitus without complications; G40.909 Epilepsy, unspecified, not intractable, without status epilepticus; Z79.82 Long term (current) use of aspirin; Z79.84 Long term (current) use of oral hypoglycemic drugs; Z79.899 Other long term (current) drug therapy
CPT/HCPCS: 36415; 80048; 84484; 85025; 93005; 99284

== ENCOUNTER 2021-08-17 16:51 | Emergency (ER) | payer MEDICARE, MEDICAID, SELFPAY ==
--- NOTE | 2021-08-17 18:07 | ED_ITS ---
HPI - Psych General Chief Complaint: General Medical <Elza Hines NP - Last Filed: 08/17/21 19:31> Stated Complaint: SI <Elza Hines NP - Last Filed: 08/17/21 19:31> Time Seen by Provider: 08/17/21 18:07 <Elza Hines NP - Last Filed: 08/17/21 19:31> Source: patient <Elza Hines NP - Last Filed: 08/17/21 19:31> Mode of arrival: ambulatory <Elza Hines NP - Last Filed: 08/17/21 19:31> Limitations: no limitations <Elza Hines NP - Last Filed: 08/17/21 19:31> History of Present Illness HPI Narrative: 50-year-old male presents to the emergency department for psych evaluation. <Elza Hines NP - Last Filed: 08/17/21 19:31> MD complaint: suicidal ideation and feels depressed <Elza Hines NP - Last Filed: 08/17/21 19:31> Onset (ago): year(s) <Elza Hines NP - Last Filed: 08/17/21 19:31> Duration: constant <Elza Hines NP - Last Filed: 08/17/21 19:31> History of same: Yes <Elza Hines NP - Last Filed: 08/17/21 19:31> Relieving factors: none <Elza Hines NP - Last Filed: 08/17/21 19:31> Context: significant life stressor <Elza Hinse NP - Last Filed: 08/17/21 19:31> Associated symptoms: denies other symptoms <Elza Hines NP - Last Filed: 08/17/21 19:31> Treatments prior to arrival: none <Elza Hines NP - Last Filed: 08/17/21 19:31> Related Data Home Medications: Home Medications Medication Instructions Recorded Confirmed atorvastatin 10 mg tablet 10 mg PO BEDTIME 11/28/20 08/15/21 aspirin 81 mg tablet,delayed 81 mg PO DAILY 01/23/21 08/15/21 release (Ecotrin Low Strength) cyanocobalamin (vitamin B-12) 1,000 mcg PO DAILY@199905/07/21 08/15/21 1,000 mcg tablet amlodipine 5 mg tablet (Norvasc) 5 mg PO DAILY 06/20/21 08/15/21 ferrous sulfate 325 mg (65 mg 325 mg PO BID 06/23/21 08/15/21 iron) tablet fluticasone propionate 50 1 spray INTRANASAL BID 06/23/21 08/15/21 mcg/actuation nasal spray,suspension gabapentin 100 mg capsule 200 mg PO BID 06/23/21 08/15/21 lisinopril 20 mg tablet 1 tab PO DAILY 06/23/21 08/15/21 risperidone 3 mg tablet 1 tab PO BID 06/23/21 08/15/21 cholecalciferol (vitamin D3) 25 25 mcg PO DAILY 07/29/21 08/15/21 mcg (1,000 unit) tablet diphenoxylate-atropine 2.5 2 tab PO TID PRN 07/29/21 08/15/21 mg-0.025 mg tablet (Lomotil) fluticasone 250 mcg-salmeterol 50 1 puff INHALATION BID 07/29/21 08/15/21 mcg/dose blistr powdr for inhalation (Advair Diskus) ondansetron 4 mg disintegrating 4 mg PO Q6H PRN 07/29/21 08/15/21 tablet albuterol sulfate 90 mcg/actuation 2 puff INHALATION Q6H PRN 08/15/21 08/15/21 aerosol inhaler dexlansoprazole 60 mg 60 mg PO BEDTIME 08/15/21 08/15/21 capsule,biphase delayed release (Dexilant) dextromethorphan-guaifenesin 5 10 ml PO Q4H PRN 08/15/21 08/15/21 mg-100 mg/5 mL oral liquid (Robitussin Cough-Chest Congestion DM) propranolol 20 mg tablet 20 mg PO TID@0800,1600,199908/15/21 08/15/21 Previous Rx's Medication Instructions Recorded hydralazine 50 mg tablet 50 mg PO BID 90 Days #180 tab 03/12/21 acetaminophen 325 mg tablet 650 mg PO Q4H PRN 90 Days #180 tab 04/27/21 furosemide 20 mg tablet 20 mg PO QAM #28 tab 06/05/21 lactase 3,000 unit tablet (Lactaid) 3,000 unit PO TIDWM #90 tab 08/02/21 nut.therapy,urea cycle disordr 15 1 ea PO BID #400 g 08/15/21 gram-393 kcal/100 gram oral pwdr <Elza Hines NP - Last Filed: 08/17/21 19:31> Allergies/Adverse Reactions: Allergies Allergy/AdvReac Type Severity Reaction Status Date / Time Sulfa (Sulfonamide Allergy Severe CHAVEZ Verified 08/17/21 16:15 Antibiotics) ALICIA REACTION, Chavez Alicia trimethoprim Allergy Mild UNKNOWN Verified 08/17/21 16:15 lactose AdvReac Mild STOMACH Verified 08/17/21 16:15 UPSET <Elza Hines NP - Last Filed: 08/17/21 19:31> Review of Systems Review of Systems: Constitutional: No Fever, No Chills ENT/Mouth: No Ear Pain, No Nasal Congestion, No sore throat Eyes: No Eye Pain, No Swelling, No Redness Cardiovascular: No Chest Pain, No SOB Respiratory: No Cough, No Sputum, No Dyspnea Gastrointestinal: No Nausea, No Vomiting, No Diarrhea, No Hematochezia, No Melena Genitourinary: No Dysuria, No Urinary Frequency, No Hematuria Musculoskeletal: No Myalgias Skin: No Skin Lesions, No rash Neuro: No Weakness, No Numbness, No Paresthesias, No Dizziness, No Headache Psych: positive Anxiety, positive Depression, positive SI Heme/Lymph: No Lymphadenopathy Endocrine: No Polyuria, No Polydipsia <Elza Hines NP - Last Filed: 08/17/21 19:31> Yes all other systems are reviewed and are negative <Elza Hines NP - Last Filed: 08/17/21 19:31> PMFSH Past Medical History Attestation statement: The following information was validated with the patient. <Elza Hines NP - Last Filed: 08/17/21 19:31> Source: old records reviewed <Elza Hines NP - Last Filed: 08/17/21 19:31> Medical History: Medical History Anemia Anxiety Asthma Cerebellar ataxia Depression Essential hypertension Hyperlipidemia LDL goal <100 Hypertension Hyponatremia Lactose intolerance Mental disability Obesity due to excess calories Peripheral vascular disease Proteinuria Right ankle pain Seizure disorder Type 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 Vertigo <Elza Hines NP - Last Filed: 08/17/21 19:31> Surgical History: Surgical History History of orchiectomy <Elza Hines NP - Last Filed: 08/17/21 19:31> Family History Family History: Family History Father Myocardial infarction CVD (cardiovascular disease) Diabetes mellitus Mother Diabetes mellitus HTN (hypertension) Brother In good health Sister In good health <Elza Hines NP - Last Filed: 08/17/21 19:31> Social History Social History: Social History Household Members: Other Household Members Other:: from correction Housing: Other Housing Other:: correction Do you presently have visiting nurse or other home services: Yes Alcohol intake: never Patient Tobacco Use Status: Never used Tobacco e-Cigarette/Vaping Use: Never Used Second Hand Smoke Exposure: No Advance Directives: No Advance Directives Information Provided: Yes Advance Directives Date on File: 05/23/21 service: No Current occupational status: disabled <Elza Hines NP - Last Filed: 08/17/21 19:31> Physical Exam Vital Signs: Vital Signs: Last Vital Signs Temp 97.8 F 08/17/21 18:15 Pulse 90 08/17/21 18:15 Resp 18 08/17/21 18:15 BP 140/77 H 08/17/21 18:15 Pulse Ox 100 08/17/21 18:15 Body Mass Index 40.3 <Elza Hines NP - Last Filed: 08/17/21 19:31> Vital Signs: Last Vital Signs Temp 97.8 F 08/17/21 18:15 Pulse 90 08/17/21 18:15 Resp 18 08/17/21 18:15 BP 140/77 H 08/17/21 18:15 Pulse Ox 100 08/17/21 18:15 Body Mass Index 40.3 <Agustin Lockwood MD - Last Filed: 08/17/21 19:34> Appearance: Alert. Oriented X3. No acute distress. Eyes: Pupils equal, round and reactive to light. ENT: Pharynx normal. Neck: Normal inspection. Neck supple. CVS: Normal heart rate and rhythm. Pulses normal. Respiratory: No respiratory distress. Breath sounds normal. Abdomen: Soft and nontender. Skin: Skin warm and dry. Normal skin color. Normal skin turgor. Extremities: No lower extremity edema. Moves all extremities against resistance. Neuro: No motor deficit. No sensory deficit. Cranial nerves 2-12 intact. <Elza Hines NP - Last Filed: 08/17/21 19:31> Course Course Course Narrative: 50-year-old male presents for suicidal ideation. Presents to this facility daily for similar circumstances. No other complaints at this time. Plan of care is to discharge to correction facility. [facility] is in agreement with this plan. <Elza Hines NP - Last Filed: 08/17/21 19:31> MDM - Psych Differential Diagnosis Differential diagnosis: Likely suicidal ideation, depression and acute anxiety <Elza Hines NP - Last Filed: 08/17/21 19:31> Medical Records Attestation: I reviewed the patient's medical records. <Elza Hines NP - Last Filed: 08/17/21 19:31> Discharge Plan Discharge Clinical Impression: Anxiety, Suicidal ideation Schizophrenia Qualifiers: Schizophrenia type: unspecified Qualified Code(s): F20.9 - Schizophrenia, unspecified Depression Qualifiers: Depression Type: major depressive disorder Major depression recurrence: recurrent Active/Remission status: currently active Major depression episode severity: moderate Qualified Code(s): F33.1 - Major depressive disorder, recurrent, moderate <Elza Hines NP - Last Filed: 08/17/21 19:31> Patient Disposition: Home, Self-Care <Elza Hines NP - Last Filed: 08/17/21 19:31> Instructions: Depression (ED), Schizophrenia (ED), Anxiety (ED) <Elza Hines NP - Last Filed: 08/17/21 19:31> Additional Instructions: Follow-up with outpatient psychiatry as scheduled. Thank you for choosing this emergency department for evaluation. Please follow-up with primary care physician as needed. Return to the emergency department for any new, concerning, or worsening symptoms. <Elza Hines NP - Last Filed: 08/17/21 19:31> Prescriptions: No Action hydralazine 50 mg tablet 50 mg PO BID 90 Days Qty: 180 RF: 2 acetaminophen 325 mg tablet 650 mg PO Q4H PRN (Reason: fever or pain) 90 Days Qty: 180 RF: 2 furosemide 20 mg tablet 20 mg PO QAM Qty: 28 RF: 3 aspirin [Ecotrin Low Strength] 81 mg Tablet,Delayed Release (Dr/Ec) 81 mg PO DAILY RF: 0 fluticasone propion-salmeterol [Advair Diskus] 250-50 mcg/dose blister with device 1 puff inhalation BID RF: 0 diphenoxylate-atropine [Lomotil] 2.5-0.025 mg Tablet 2 tab PO TID PRN (Reason: Diarrhea) RF: 0 ondansetron 4 mg Tablet,Disintegrating 4 mg PO Q6H PRN (Reason: Nausea) RF: 0 cholecalciferol (vitamin D3) 25 mcg (1,000 unit) tablet 25 mcg PO DAILY RF: 0 atorvastatin 10 mg tablet 10 mg PO BEDTIME RF: 0 cyanocobalamin (vitamin B-12) 1,000 mcg tablet 1,000 mcg PO DAILY@1999 RF: 0 ferrous sulfate 325 mg (65 mg iron) Tablet 325 mg PO BID RF: 0 fluticasone propionate [Flonase] 50 mcg/actuation [place],Suspension 1 spray INTRANASAL BID RF: 0 lisinopril 20 mg tablet 1 tab PO DAILY RF: 0 gabapentin 100 mg capsule 200 mg PO BID RF: 0 risperidone 3 mg tablet 1 tab PO BID RF: 0 Robitussin Cough-Chest Maury DM 5-100 mg/5 mL Liquid 10 ml PO Q4H PRN (Reason: Cough) RF: 0 albuterol sulfate 90 mcg/actuation Hfa Aerosol Inhaler 2 puff INHALATION Q6H PRN (Reason: Wheezing) RF: 0 propranolol 20 mg tablet 20 mg PO TID@0800,1600,1999 RF: 0 Dexilant 60 mg capsule,biphase delayed releas 60 mg PO BEDTIME RF: 0 nut.therapy,urea cycle disordr 15 gram-393 kcal/100 gram powder 1 ea PO BID Qty: 400 RF: 0 lactase [Lactaid] 3,000 unit tablet 3,000 unit PO TIDWM Qty: 90 RF: 0 amlodipine [Norvasc] 5 mg tablet 5 mg PO DAILY RF: 0 <Elza Hines NP - Last Filed: 08/17/21 19:31> Interventions: ED Discharge Assessment Last Done: 08/17/21 18:38 <Elza Hines NP - Last Filed: 08/17/21 19:31> Discharge Date/Time: 08/17/21 18:39 <Elza Hines NP - Last Filed: 08/17/21 19:31>
[2021-08-17 18:15] VITALS: BP 140/77; PULSE 90; RESP 18; TEMP 36.6; O2SAT 100; BMI 40.3
== END 2021-08-17 18:39 | disposition home or self-care (01) ==
LOC: HO.ED 18:23
PROVIDERS: Emergency Provider Emergency Medicine
DX: F33.1 Major depressive disorder, recurrent, moderate (principal); R45.851 Suicidal ideations; F41.9 Anxiety disorder, unspecified; F20.9 Schizophrenia, unspecified; I10 Essential (primary) hypertension; E11.9 Type 2 diabetes mellitus without complications; G40.909 Epilepsy, unspecified, not intractable, without status epilepticus
CPT/HCPCS: 36415; 80048; 84484; 85025; 93005; 99283; 99284

== ENCOUNTER 2021-08-18 19:57 | Emergency (ER) | payer MEDICARE, MEDICAID, SELFPAY ==
--- NOTE | 2021-08-18 20:03 | ECG_ITS ---
Test Reason : CP Blood Pressure : / mmHG Vent. Rate : 075 BPM Atrial Rate : 075 BPM P-R Int : 186 ms QRS Dur : 096 ms QT Int : 382 ms P-R-T Axes : 063 -03 052 degrees QTc Int : 426 ms Normal sinus rhythm Normal ECG When compared with ECG of 17-AUG-2021 01:25, No significant change was found Referred By: Bhavana Loaiza Electronically Signed By:VERONICA CRUMP MD
[2021-08-18 20:05] VITALS: BP 135/57; PULSE 81; RESP 16; TEMP 37; O2SAT 100; BMI 35.4
--- NOTE | 2021-08-18 20:16 | ED.CHESTPAIN ---
HPI - Chest Pain General Chief Complaint: Chest Pain Stated Complaint: cp Time Seen by Provider: 08/18/21 20:01 Source: patient and EMS Mode of arrival: EMS Limitations: no limitations History of Present Illness MD complaint: chest pain Onset (ago): day(s) (last few days but has had it frequently in the past) Timing of current episode: constant Onset: during rest Pain location: left chest Pain radiation: none Severity: mild Quality: aching Relieving factors: nothing Exacerbating factors: nothing Context: other (chronic complaint with SI vs RLQ pain and SI) Treatment prior to arrival: none Related Data Home Medications Medication Instructions Recorded Confirmed atorvastatin 10 mg tablet 10 mg PO BEDTIME 11/28/20 08/15/21 aspirin 81 mg tablet,delayed 81 mg PO DAILY 01/23/21 08/15/21 release (Ecotrin Low Strength) cyanocobalamin (vitamin B-12) 1,000 mcg PO DAILY@199905/07/21 08/15/21 1,000 mcg tablet amlodipine 5 mg tablet (Norvasc) 5 mg PO DAILY 06/20/21 08/15/21 ferrous sulfate 325 mg (65 mg 325 mg PO BID 06/23/21 08/15/21 iron) tablet fluticasone propionate 50 1 spray INTRANASAL BID 06/23/21 08/15/21 mcg/actuation nasal spray,suspension gabapentin 100 mg capsule 200 mg PO BID 06/23/21 08/15/21 lisinopril 20 mg tablet 1 tab PO DAILY 06/23/21 08/15/21 risperidone 3 mg tablet 1 tab PO BID 06/23/21 08/15/21 cholecalciferol (vitamin D3) 25 25 mcg PO DAILY 07/29/21 08/15/21 mcg (1,000 unit) tablet diphenoxylate-atropine 2.5 2 tab PO TID PRN 07/29/21 08/15/21 mg-0.025 mg tablet (Lomotil) fluticasone 250 mcg-salmeterol 50 1 puff INHALATION BID 07/29/21 08/15/21 mcg/dose blistr powdr for inhalation (Advair Diskus) ondansetron 4 mg disintegrating 4 mg PO Q6H PRN 07/29/21 08/15/21 tablet albuterol sulfate 90 mcg/actuation 2 puff INHALATION Q6H PRN 08/15/21 08/15/21 aerosol inhaler dexlansoprazole 60 mg 60 mg PO BEDTIME 08/15/21 08/15/21 capsule,biphase delayed release (Dexilant) dextromethorphan-guaifenesin 5 10 ml PO Q4H PRN 08/15/21 08/15/21 mg-100 mg/5 mL oral liquid (Robitussin Cough-Chest Congestion DM) propranolol 20 mg tablet 20 mg PO TID@0800,1600,2000 08/15/21 08/15/21 Previous Rx's Medication Instructions Recorded hydralazine 50 mg tablet 50 mg PO BID 90 Days #180 tab 03/12/21 acetaminophen 325 mg tablet 650 mg PO Q4H PRN 90 Days #180 tab 04/27/21 furosemide 20 mg tablet 20 mg PO QAM #28 tab 06/05/21 lactase 3,000 unit tablet (Lactaid) 3,000 unit PO TIDWM #90 tab 08/02/21 nut.therapy,urea cycle disordr 15 1 ea PO BID #400 g 08/15/21 gram-393 kcal/100 gram oral pwdr Allergies Allergy/AdvReac Type Severity Reaction Status Date / Time Sulfa (Sulfonamide Allergy Severe CHAVEZ Verified 08/17/21 16:15 Antibiotics) ALICIA REACTION, Chavez Alicia trimethoprim Allergy Mild UNKNOWN Verified 08/17/21 16:15 lactose AdvReac Mild STOMACH Verified 08/17/21 16:15 UPSET Review of Systems Review of Systems: Constitutional : No Weight loss, No Fever, No Chills ENT/Mouth : No sore throat, No Rhinorrhea Eyes: No Eye Pain, No Swelling Cardiovascular : pos Chest Pain, no SOB, no Dyspnea on Exertion, No Orthopnea, No Edema, No Palpitations Respiratory : No Cough, No Sputum Gastrointestinal : no Nausea, No Vomiting, No Diarrhea, No abdominal Pain, No Hematochezia, No Melena Genitourinary : No Dysuria, No Urinary Frequency Musculoskeletal : No joint pain, No Myalgias, No Joint Swelling Skin : No Skin Lesions, No rash Neuro : No Weakness, No Numbness, No Dizziness, No Headache Psych : No Anxiety/Panic, pos Depression, pos SI Heme/Lymph: No Bruising, No Lymphadenopathy Endocrine : No Polyuria, No Polydipsia All other systems reviewed and are negative PMFSH Past Medical History Attestation statement: The following information was validated with the patient. Medical History Anemia Anxiety Asthma Cerebellar ataxia Depression Essential hypertension Hyperlipidemia LDL goal <100 Hypertension Hyponatremia Lactose intolerance Mental disability Obesity due to excess calories Peripheral vascular disease Proteinuria Right ankle pain Seizure disorder Type 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 Vertigo Surgical History History of orchiectomy Family History Family History Father Myocardial infarction CVD (cardiovascular disease) Diabetes mellitus Mother Diabetes mellitus HTN (hypertension) Brother In good health Sister In good health Social History Social History Household Members: Other Household Members Other:: from long term Housing: Other Housing Other:: long term Do you presently have visiting nurse or other home services: Yes Alcohol intake: never Patient Tobacco Use Status: Never used Tobacco e-Cigarette/Vaping Use: Never Used Second Hand Smoke Exposure: No Advance Directives: No Advance Directives Information Provided: Yes Advance Directives Date on File: 05/23/21 service: No Current occupational status: disabled Physical Exam Vital Signs: Vital Signs: Last Vital Signs Temp 98.6 F 08/18/21 20:05 Pulse 81 08/18/21 20:05 Resp 16 08/18/21 20:05 BP 135/57 L 08/18/21 20:05 Pulse Ox 100 08/18/21 20:05 Body Mass Index 35.4 Appearance: Alert. Oriented X3. No acute distress. Eyes: Pupils equal, round and reactive to light. ENT: Pharynx normal. Neck: Normal inspection. Neck supple. CVS: Normal heart rate and rhythm. Pulses normal. Respiratory: No respiratory distress. Breath sounds normal. Abdomen: Soft and nontender. Skin: Skin warm and dry. Normal skin color. Normal skin turgor. Extremities: No lower extremity edema. No calf ttp Neuro: Oriented X 3. No motor deficit. No sensory deficit. MDM - Chest Pain MDM Narrative Medical decision making narrative: 50 yo male well known to us here with c/o chest pain and SI he has been seen her almost daily and also more than once a day - at this time he just had a negative EKG and trop yesterday - SI is chronic he has no plans at this time he has been cleared several times for this and he reports he feels this way daily. I do not suspect PE or ACS at this time. If EKG negative he can be DC back to his long term Discharge Plan Discharge Clinical Impression: Left-sided chest pain, Anxiety Patient Disposition: Home, Self-Care Instructions: Chest Pain (ED), Anxiety (ED) Additional Instructions: return to ED for any worsening symptoms or concerns Prescriptions: No Action hydralazine 50 mg tablet 50 mg PO BID 90 Days Qty: 180 RF: 2 acetaminophen 325 mg tablet 650 mg PO Q4H PRN (Reason: fever or pain) 90 Days Qty: 180 RF: 2 furosemide 20 mg tablet 20 mg PO QAM Qty: 28 RF: 3 aspirin [Ecotrin Low Strength] 81 mg Tablet,Delayed Release (Dr/Ec) 81 mg PO DAILY RF: 0 fluticasone propion-salmeterol [Advair Diskus] 250-50 mcg/dose blister with device 1 puff inhalation BID RF: 0 diphenoxylate-atropine [Lomotil] 2.5-0.025 mg Tablet 2 tab PO TID PRN (Reason: Diarrhea) RF: 0 ondansetron 4 mg Tablet,Disintegrating 4 mg PO Q6H PRN (Reason: Nausea) RF: 0 cholecalciferol (vitamin D3) 25 mcg (1,000 unit) tablet 25 mcg PO DAILY RF: 0 atorvastatin 10 mg tablet 10 mg PO BEDTIME RF: 0 cyanocobalamin (vitamin B-12) 1,000 mcg tablet 1,000 mcg PO DAILY@2000 RF: 0 ferrous sulfate 325 mg (65 mg iron) Tablet 325 mg PO BID RF: 0 fluticasone propionate [Flonase] 50 mcg/actuation [place],Suspension 1 spray INTRANASAL BID RF: 0 lisinopril 20 mg tablet 1 tab PO DAILY RF: 0 gabapentin 100 mg capsule 200 mg PO BID RF: 0 risperidone 3 mg tablet 1 tab PO BID RF: 0 Robitussin Cough-Chest [place]ury DM 5-100 mg/5 mL Liquid 10 ml PO Q4H PRN (Reason: Cough) RF: 0 albuterol sulfate 90 mcg/actuation Hfa Aerosol Inhaler 2 puff INHALATION Q6H PRN (Reason: Wheezing) RF: 0 propranolol 20 mg tablet 20 mg PO TID@0800,1600,2000 RF: 0 Dexilant 60 mg capsule,biphase delayed releas 60 mg PO BEDTIME RF: 0 nut.therapy,urea cycle disordr 15 gram-393 kcal/100 gram powder 1 ea PO BID Qty: 400 RF: 0 lactase [Lactaid] 3,000 unit tablet 3,000 unit PO TIDWM Qty: 90 RF: 0 amlodipine [Norvasc] 5 mg tablet 5 mg PO DAILY RF: 0
== END 2021-08-18 21:41 | disposition home or self-care (01) ==
LOC: HO.ED 20:28
PROVIDERS: Emergency Provider Emergency Medicine
DX: R07.9 Chest pain, unspecified (principal); F41.1 Generalized anxiety disorder; F43.0 Acute stress reaction; Z79.899 Other long term (current) drug therapy; Z79.82 Long term (current) use of aspirin
CPT/HCPCS: 93005; 99283

== ENCOUNTER 2021-08-23 16:03 | Outpatient (REF) | payer MEDICARE, MEDICAID, SELFPAY ==
[2021-08-23 17:29] LABS: Alanine Aminotransferase 12 U/L (0-40); Alkaline Phosphatase 72 U/L (39-117); Aspartate Amino Transferase 17 U/L (5-37); Bilirubin Direct < 0.2 mg/dL (0.0-0.5); Bilirubin Total < 0.2 mg/dL (0.0-1.0); Total Protein 6.6 g/dL (6.5-8.0)
[2021-08-23 17:31] LABS: Valproate 81.7 mcg/mL (50.0-100.0)
== END 2021-08-23 16:04 | disposition home or self-care (01) ==
LOC: HO.LAB 16:03
PROVIDERS: PCP Internal Medicine; Visit Provider General Practice
DX: F31.9 Bipolar disorder, unspecified (principal); Z79.899 Other long term (current) drug therapy
CPT/HCPCS: 36415; 80076; 80164

== ENCOUNTER 2021-08-27 15:43 | Emergency (ER) | payer MEDICARE, MEDICAID, SELFPAY ==
[2021-08-27 16:01] VITALS: BP 135/85; BP 161/90; PULSE 76; PULSE 82; RESP 20; TEMP 37.2; O2SAT 100; O2SAT 99; BMI 33.9
--- NOTE | 2021-08-27 16:04 | ECG_ITS ---
Test Reason : CHEST PAIN Blood Pressure : / mmHG Vent. Rate : 073 BPM Atrial Rate : 073 BPM P-R Int : 184 ms QRS Dur : 084 ms QT Int : 388 ms P-R-T Axes : 073 002 048 degrees QTc Int : 427 ms Poor data quality Normal sinus rhythm Low voltage QRS Borderline ECG No significant changes seen Referred By: Elza Hines Electronically Signed By:VERONICA CRUMP MD
--- NOTE | 2021-08-27 16:04 | ED_ITS ---
HPI - Psych General Chief Complaint: Chest Pain Stated Complaint: chest pain si Source: patient and EMS Mode of arrival: EMS Limitations: no limitations History of Present Illness HPI Narrative: 51-year-old male presents for suicidal ideation and chest pain. States that he has had chest pain for over a week. MD complaint: suicidal ideation Onset (ago): year(s) Duration: constant History of same: Yes Relieving factors: none Associated psychiatric symptoms: depression and suicidal ideation Associated symptoms: other (Chest pain) Treatments prior to arrival: none If self harm: admits thoughts of self harm Related Data Home Medications Medication Instructions Recorded Confirmed atorvastatin 10 mg tablet 10 mg PO BEDTIME 11/28/20 08/15/21 aspirin 81 mg tablet,delayed 81 mg PO DAILY 01/23/21 08/15/21 release (Ecotrin Low Strength) cyanocobalamin (vitamin B-12) 1,000 mcg PO DAILY@199905/07/21 08/15/21 1,000 mcg tablet amlodipine 5 mg tablet (Norvasc) 5 mg PO DAILY 06/20/21 08/15/21 ferrous sulfate 325 mg (65 mg 325 mg PO BID 06/23/21 08/15/21 iron) tablet fluticasone propionate 50 1 spray INTRANASAL BID 06/23/21 08/15/21 mcg/actuation nasal spray,suspension gabapentin 100 mg capsule 200 mg PO BID 06/23/21 08/15/21 lisinopril 20 mg tablet 1 tab PO DAILY 06/23/21 08/15/21 risperidone 3 mg tablet 1 tab PO BID 06/23/21 08/15/21 cholecalciferol (vitamin D3) 25 25 mcg PO DAILY 07/29/21 08/15/21 mcg (1,000 unit) tablet diphenoxylate-atropine 2.5 2 tab PO TID PRN 07/29/21 08/15/21 mg-0.025 mg tablet (Lomotil) fluticasone 250 mcg-salmeterol 50 1 puff INHALATION BID 07/29/21 08/15/21 mcg/dose blistr powdr for inhalation (Advair Diskus) ondansetron 4 mg disintegrating 4 mg PO Q6H PRN 07/29/21 08/15/21 tablet albuterol sulfate 90 mcg/actuation 2 puff INHALATION Q6H PRN 08/15/21 08/15/21 aerosol inhaler dexlansoprazole 60 mg 60 mg PO BEDTIME 08/15/21 08/15/21 capsule,biphase delayed release (Dexilant) dextromethorphan-guaifenesin 5 10 ml PO Q4H PRN 08/15/21 08/15/21 mg-100 mg/5 mL oral liquid (Robitussin Cough-Chest Congestion DM) propranolol 20 mg tablet 20 mg PO TID@0800,1600,2000 08/15/21 08/15/21 Previous Rx's Medication Instructions Recorded hydralazine 50 mg tablet 50 mg PO BID 90 Days #180 tab 03/12/21 acetaminophen 325 mg tablet 650 mg PO Q4H PRN 90 Days #180 tab 04/27/21 furosemide 20 mg tablet 20 mg PO QAM #28 tab 06/05/21 lactase 3,000 unit tablet (Lactaid) 3,000 unit PO TIDWM #90 tab 08/02/21 nut.therapy,urea cycle disordr 15 1 ea PO BID #400 g 08/15/21 gram-393 kcal/100 gram oral pwdr Allergies Allergy/AdvReac Type Severity Reaction Status Date / Time Sulfa (Sulfonamide Allergy Severe CHAVEZ Verified 08/17/21 16:15 Antibiotics) ALICIA REACTION, Chavez Alicia trimethoprim Allergy Mild UNKNOWN Verified 08/17/21 16:15 lactose AdvReac Mild STOMACH Verified 08/17/21 16:15 UPSET Review of Systems Review of Systems: Constitutional: No Fever, No Chills ENT/Mouth: No Ear Pain, No Nasal Congestion, No sore throat Eyes: No Eye Pain, No Swelling, No Redness Cardiovascular: No Chest Pain, No SOB Respiratory: No Cough, No Sputum, No Dyspnea Gastrointestinal: No Nausea, No Vomiting, No Diarrhea, No Hematochezia, No Melena Genitourinary: No Dysuria, No Urinary Frequency, No Hematuria Musculoskeletal: No Myalgias Skin: No Skin Lesions, No rash Neuro: No Weakness, No Numbness, No Paresthesias, No Dizziness, No Headache Psych: positive Anxiety, positive Depression, positive SI Heme/Lymph: No Lymphadenopathy Endocrine: No Polyuria, No Polydipsia Yes all other systems are reviewed and are negative [facility] Past Medical History Attestation statement: The following information was validated with the patient. 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 Vertigo Surgical History History of orchiectomy Family History Family History Father Myocardial infarction CVD (cardiovascular disease) Diabetes mellitus Mother Diabetes mellitus HTN (hypertension) Brother In good health Sister In good health Social History Social History Household Members: Other Household Members Other:: from half-way Housing: Other Housing Other:: half-way Do you presently have visiting nurse or other home services: Yes Alcohol intake: never Patient Tobacco Use Status: Never used Tobacco e-Cigarette/Vaping Use: Never Used Second Hand Smoke Exposure: No Advance Directives: No Advance Directives Information Provided: Yes Advance Directives Date on File: 05/23/21 service: No Current occupational status: disabled Physical Exam Vital Signs: Vital Signs: Last Vital Signs Temp 98.9 F 08/27/21 16:01 Pulse 82 08/27/21 16:01 Resp 20 08/27/21 16:01 BP 161/90 H 08/27/21 16:01 Pulse Ox 99 08/27/21 16:01 Body Mass Index 33.9 Appearance: Alert. Oriented X3. No acute distress. Flat affect. Eyes: Pupils equal, round and reactive to light. ENT: Pharynx normal. Neck: Normal inspection. Neck supple. CVS: Normal heart rate and rhythm. Pulses normal. Respiratory: No respiratory distress. Breath sounds normal. Abdomen: Soft and nontender. Skin: Skin warm and dry. Normal skin color. Normal skin turgor. Extremities: No lower extremity edema. Neuro: No motor deficit. No sensory deficit. Course Course Course Narrative: 4:06 p.m. discussion with care team, there is a plan in place for this patient, patient uses emergency department for attention, multiple meetings between in this hospital and half-way staff agrees that patient will not receive a full crisis consult workup. The plan is to reduce attention seeking behaviors, care team, case management have worked diligently with this plan. Patient presents with suicidal ideation without a plan. States to have chest pain for over week but no other concerning symptoms. Patient complains of suicidal ideation and chest pain. Will order EKG. If EKG is indicative of ST elevation or depression or anything abnormal from prior EKGs then we will further investigate. EKG normal sinus rhythm. Plan of care to discharge home. MDM - Psych Differential Diagnosis Differential diagnosis: Likely suicidal ideation, depression, acute anxiety and mood disorder Medical Records Attestation: I reviewed the patient's medical records. ECG Data Attestation: I personally reviewed and interpreted this ECG as follows: ECG interpretation date: 08/27/21 ECG interpretation time: 16:20 Prior ECG tracings: not available for review Interpretation: Ventricular rate 73 beats per minute, NH 184, QRS 84, QT 388, QTC 427, normal sinus rhythm, normal EKG, prior EKG is unavailable secondary to system 130 error Discharge Plan Discharge Clinical Impression: Chest pain, non-cardiac Depression Qualifiers: Depression Type: major depressive disorder Major depression recurrence: recurrent Active/Remission status: currently active Major depression episode severity: mild Qualified Code(s): F33.0 - Major depressive disorder, recurrent, mild Patient Disposition: Home, Self-Care Instructions: Depression (ED), Noncardiac Chest Pain (ED) Additional Instructions: You evaluated for depression and noncardiac chest pain. Your EKG is normal. Please follow-up with outpatient psychiatry. Thank you for choosing this emergency department for evaluation. Please follow-up with primary care physician as needed. Return to the emergency department for any new, concerning, or worsening symptoms. Prescriptions: No Action hydralazine 50 mg tablet 50 mg PO BID 90 Days Qty: 180 RF: 2 acetaminophen 325 mg tablet 650 mg PO Q4H PRN (Reason: fever or pain) 90 Days Qty: 180 RF: 2 furosemide 20 mg tablet 20 mg PO QAM Qty: 28 RF: 3 aspirin [Ecotrin Low Strength] 81 mg Tablet,Delayed Release (Dr/Ec) 81 mg PO DAILY RF: 0 fluticasone propion-salmeterol [Advair Diskus] 250-50 mcg/dose blister with device 1 puff inhalation BID RF: 0 diphenoxylate-atropine [Lomotil] 2.5-0.025 mg Tablet 2 tab PO TID PRN (Reason: Diarrhea) RF: 0 ondansetron 4 mg Tablet,Disintegrating 4 mg PO Q6H PRN (Reason: Nausea) RF: 0 cholecalciferol (vitamin D3) 25 mcg (1,000 unit) tablet 25 mcg PO DAILY RF: 0 atorvastatin 10 mg tablet 10 mg PO BEDTIME RF: 0 cyanocobalamin (vitamin B-12) 1,000 mcg tablet 1,000 mcg PO DAILY@1999 RF: 0 ferrous sulfate 325 mg (65 mg iron) Tablet 325 mg PO BID RF: 0 fluticasone propionate [Flonase] 50 mcg/actuation [place],Suspension 1 spray INTRANASAL BID RF: 0 lisinopril 20 mg tablet 1 tab PO DAILY RF: 0 gabapentin 100 mg capsule 200 mg PO BID RF: 0 risperidone 3 mg tablet 1 tab PO BID RF: 0 Robitussin Cough-Chest [place] DM 5-100 mg/5 mL Liquid 10 ml PO Q4H PRN (Reason: Cough) RF: 0 albuterol sulfate 90 mcg/actuation Hfa Aerosol Inhaler 2 puff INHALATION Q6H PRN (Reason: Wheezing) RF: 0 propranolol 20 mg tablet 20 mg PO TID@0800,1600,2000 RF: 0 Dexilant 60 mg capsule,biphase delayed releas 60 mg PO BEDTIME RF: 0 nut.therapy,urea cycle disordr 15 gram-393 kcal/100 gram powder 1 ea PO BID Qty: 400 RF: 0 lactase [Lactaid] 3,000 unit tablet 3,000 unit PO TIDWM Qty: 90 RF: 0 amlodipine [Norvasc] 5 mg tablet 5 mg PO DAILY RF: 0
== END 2021-08-27 18:03 | disposition home or self-care (01) ==
PROVIDERS: Emergency Provider Internal Medicine
DX: F33.1 Major depressive disorder, recurrent, moderate (principal); R45.851 Suicidal ideations; R07.9 Chest pain, unspecified; Z79.899 Other long term (current) drug therapy
CPT/HCPCS: 93005; 99283; 99284

== ENCOUNTER 2021-09-24 18:04 | Emergency (ER) | payer MEDICARE, MEDICAID, SELFPAY ==
[2021-09-24 18:18] VITALS: BP 160/86; PULSE 101; O2SAT 97
--- NOTE | 2021-09-24 18:20 | ED_ITS ---
HPI - General Adult General Chief complaint: Psychiatric Symptoms Stated complaint: SI Discoloration of Urine Time Seen by Provider: 09/24/21 18:10 Source: patient and old records reviewed History of Present Illness HPI narrative: Patient states tonight he had reddish discoloration of his urine. Positive dysuria. Denies history of similar issues. No fevers or chills. No nausea vomiting. No flank pain. No history of known kidney stones. He does have a history of intermittent chronic abdominal pain for which he has had multiple CT scans in the past. This is different per patient. He also states he has feelings suicidal after an argument with his roommate at the senior care. This is also happen to him in the past as well. No specific plan. Related Data Home Medications Medication Instructions Recorded Confirmed atorvastatin 10 mg tablet 10 mg PO BEDTIME 11/28/20 08/15/21 aspirin 81 mg tablet,delayed 81 mg PO DAILY 01/23/21 08/15/21 release (Ecotrin Low Strength) cyanocobalamin (vitamin B-12) 1,000 mcg PO DAILY@199905/07/21 08/15/21 1,000 mcg tablet ferrous sulfate 325 mg (65 mg 325 mg PO BID 06/23/21 08/15/21 iron) tablet gabapentin 100 mg capsule 200 mg PO BID 06/23/21 08/15/21 lisinopril 20 mg tablet 1 tab PO DAILY 06/23/21 08/15/21 risperidone 3 mg tablet 1 tab PO BID 06/23/21 08/15/21 cholecalciferol (vitamin D3) 25 25 mcg PO DAILY 07/29/21 08/15/21 mcg (1,000 unit) tablet diphenoxylate-atropine 2.5 2 tab PO TID PRN 07/29/21 08/15/21 mg-0.025 mg tablet (Lomotil) fluticasone 250 mcg-salmeterol 50 1 puff INHALATION BID 07/29/21 08/15/21 mcg/dose blistr powdr for inhalation (Advair Diskus) ondansetron 4 mg disintegrating 4 mg PO Q6H PRN 07/29/21 08/15/21 tablet albuterol sulfate 90 mcg/actuation 2 puff INHALATION Q6H PRN 08/15/21 08/15/21 aerosol inhaler dexlansoprazole 60 mg 60 mg PO BEDTIME 08/15/21 08/15/21 capsule,biphase delayed release (Dexilant) dextromethorphan-guaifenesin 5 10 ml PO Q4H PRN 08/15/21 08/15/21 mg-100 mg/5 mL oral liquid (Robitussin Cough-Chest Congestion DM) propranolol 20 mg tablet 20 mg PO TID@0800,1600,2000 08/15/21 08/15/21 Previous Rx's Medication Instructions Recorded hydralazine 50 mg tablet 50 mg PO BID 90 Days #180 tab 03/12/21 acetaminophen 325 mg tablet 650 mg PO Q4H PRN 90 Days #180 tab 04/27/21 nut.therapy,urea cycle disordr 15 1 ea PO BID #400 g 08/15/21 gram-393 kcal/100 gram oral pwdr lactase 3,000 unit tablet (Lactaid) 3,000 unit PO TIDWM #90 tab 08/27/21 fluticasone propionate 50 1 spray INTRANASAL BID #16 g 08/31/21 mcg/actuation nasal spray,suspension nitrofurantoin macrocrystal 100 mg 100 mg PO BID #10 cap 09/24/21 capsule Allergies Allergy/AdvReac Type Severity Reaction Status Date / Time Sulfa (Sulfonamide Allergy Severe CHAVEZ Verified 08/31/21 16:22 Antibiotics) ALICIA REACTION, Chavez Alicia trimethoprim Allergy Mild UNKNOWN Verified 08/31/21 16:22 lactose AdvReac Mild STOMACH Verified 08/31/21 16:22 UPSET Review of Systems Constitutional: Constitutional: Denies fever(s) Cardiovascular: Comments: No chest pain Respiratory: Comments: No dyspnea Gastrointestinal: Comments: Abdominal pain as mentioned Genitourinary: Comments: Dysuria and hematuria per patient Musculoskeletal: Comments: No significant trauma Neurologic: Comments: No new deficits PMFSH Past Medical History Medical History Anemia Anxiety Asthma Cerebellar ataxia Depression Essential hypertension Hyperlipidemia LDL goal <100 Hypertension Hyponatremia Lactose intolerance Mental disability Obesity due to excess calories Peripheral vascular disease Proteinuria Right ankle pain Seizure disorder Type 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 Vertigo Surgical History History of orchiectomy Family History Family History Father Myocardial infarction CVD (cardiovascular disease) Diabetes mellitus Mother Diabetes mellitus HTN (hypertension) Brother In good health Sister In good health Social History Social History Household Members: Other Household Members Other:: from senior care Housing: Other Housing Other:: senior care Do you presently have visiting nurse or other home services: Yes Alcohol intake: never Patient Tobacco Use Status: Never used Tobacco e-Cigarette/Vaping Use: Never Used Second Hand Smoke Exposure: No Advance Directives: No Advance Directives Information Provided: No Advance Directives Date on File: 05/23/21 service: No Current occupational status: disabled Physical Exam Vital Signs: Vital Signs: Last Vital Signs Temp 98.1 F 09/24/21 18:37 Pulse 95 09/24/21 18:37 Resp 18 09/24/21 18:37 BP 164/80 H 09/24/21 18:37 Pulse Ox 96 09/24/21 18:37 Body Mass Index 29.5 Const: Other: Awake and alert no acute distress Eyes: Other: Dysconjugate gaze with right eye fixed lateral deviation, chronic appearing Resp: Other: No respiratory distress. Clear and equal bilaterally Cardio: Other: Regular rate and rhythm GI: Other: Abdomen is soft nontender nondistended. No flank tenderness to percussion Skin: Other: Warm pink and dry without rash Neuro: Other: No focal extremity weakness Course Course Course Narrative: Hematuria Dehydration Kidney stone Urinary tract infection Suicidal ideation and depression Urinalysis. Urine tox. Serum ethanol for psych clearance. Crisis consult 8:15 p.m.. Workup, urinalysis, shows positive urinary tract infection as source of hematuria. Will treat with Macrobid as patient has Bactrim allergy. Case discussed with crisis team. He is well known to them and does not offer a risk to self or others. Stable for discharge home Medical Decision Making Lab Data Labs: Lab Results 09/24/21 09/24/21 Range/Units 18:34 18:34 Urine Color YELLOW Urine Appearance HAZY Urine pH 6.5 (5.0-8.0) Ur Specific Crane 1.015 (1.005-1.025) Urine Protein 2+ H (NEG-TRACE) MG/DL Urine Glucose (UA) NEG (NEG) MG/DL Urine Ketones NEG (NEG) MG/DL Urine Blood 3+ H (NEG) Urine Nitrite NEG (NEG) Ur Leukocyte Esterase 1+ H (NEG) Urine RBC 76-150 H (0) /HPF Urine WBC 15-29 H (0-4) /HPF Ur Squamous Epith Cells 1+ /LPF Urine Bacteria 1+ /LPF Urine Opiates Screen Not Detected (Not Detect) Urine Fentanyl Screen Not Detected (Not Detect) Ur Barbiturates Screen Not Detected (Not Detect) Ur Phencyclidine Scrn Not Detected (Not Detect) Ur Amphetamines Screen Not Detected (Not Detect) U Benzodiazepines Scrn Not Detected (Not Detect) Urine Cocaine Screen Not Detected (Not Detect) U Marijuana (THC) Screen Not Detected (Not Detect) Discharge Plan Discharge Clinical Impression: Urinary tract infection Qualifiers: Urinary tract infection type: acute cystitis Hematuria presence: with hematuria Qualified Code(s): N30.01 - Acute cystitis with hematuria Patient Disposition: Home, Self-Care Instructions: Urinary Tract Infection in Men (ED) Prescriptions: New nitrofurantoin macrocrystal 100 mg capsule 100 mg PO BID Qty: 10 RF: 0 No Action hydralazine 50 mg tablet 50 mg PO BID 90 Days Qty: 180 RF: 2 acetaminophen 325 mg tablet 650 mg PO Q4H PRN (Reason: fever or pain) 90 Days Qty: 180 RF: 2 lactase [Lactaid] 3,000 unit tablet 3,000 unit PO TIDWM Qty: 90 RF: 3 aspirin [Ecotrin Low Strength] 81 mg Tablet,Delayed Release (Dr/Ec) 81 mg PO DAILY RF: 0 fluticasone propion-salmeterol [Advair Diskus] 250-50 mcg/dose blister with device 1 puff inhalation BID RF: 0 diphenoxylate-atropine [Lomotil] 2.5-0.025 mg Tablet 2 tab PO TID PRN (Reason: Diarrhea) RF: 0 ondansetron 4 mg Tablet,Disintegrating 4 mg PO Q6H PRN (Reason: Nausea) RF: 0 cholecalciferol (vitamin D3) 25 mcg (1,000 unit) tablet 25 mcg PO DAILY RF: 0 atorvastatin 10 mg tablet 10 mg PO BEDTIME RF: 0 cyanocobalamin (vitamin B-12) 1,000 mcg tablet 1,000 mcg PO DAILY@1999 RF: 0 ferrous sulfate 325 mg (65 mg iron) Tablet 325 mg PO BID RF: 0 lisinopril 20 mg tablet 1 tab PO DAILY RF: 0 gabapentin 100 mg capsule 200 mg PO BID RF: 0 risperidone 3 mg tablet 1 tab PO BID RF: 0 Robitussin Cough-Chest Maury DM 5-100 mg/5 mL Liquid 10 ml PO Q4H PRN (Reason: Cough) RF: 0 albuterol sulfate 90 mcg/actuation Hfa Aerosol Inhaler 2 puff INHALATION Q6H PRN (Reason: Wheezing) RF: 0 propranolol 20 mg tablet 20 mg PO TID@0800,1600,1999 RF: 0 Dexilant 60 mg capsule,biphase delayed releas 60 mg PO BEDTIME RF: 0 nut.therapy,urea cycle disordr 15 gram-393 kcal/100 gram powder 1 ea PO BID Qty: 400 RF: 0 fluticasone propionate 50 mcg/actuation spray,suspension 1 spray INTRANASAL BID Qty: 16 RF: 11
[2021-09-24 18:34] VITALS: BMI 29.5
[2021-09-24 18:37] VITALS: BP 164/80; PULSE 95; RESP 18; TEMP 36.7; O2SAT 96
[2021-09-24 18:47] LABS: Appearance Urine HAZY; Color Urine YELLOW; Glucose Urine UA NEG (NEG); Leukocyte Esterase Urine 1+ (NEG); Nitrite Urine NEG (NEG); PH 6.5 (5.0-8.0); Specific Gravity - Urine 1.015 (1.005-1.025); UACC Culture Trigger YES; Urine Blood 3+ (NEG); Urine Ketones NEG (NEG); Urine Protein 2+ MG/DL (NEG-TRACE)
[2021-09-24 18:54] LABS: Bacteria Urine 1+ /LPF; Squamous Epithelial Cell Urine 1+ /LPF
[2021-09-24 19:03] LABS: Amphetamine Screen Urine Not Detected (Not Detect); Barbiturates, Urine Not Detected (Not Detect); Benzodiazepines Screen Urine Not Detected (Not Detect); Cannabinoid Screen Urine Not Detected (Not Detect); Cocaine Screen Urine Not Detected (Not Detect); Fentanyl, urine Not Detected (Not Detect); Opiate Screen Urine Not Detected (Not Detect); Phencyclidine Screen Urine Not Detected (Not Detect)
[2021-09-24] MEDS: Nitrofurantoin Monohyd/M-Cryst 100 MG CAPSULE PO (20:28)
[2021-09-25 02:39] VITALS: BP 148/75; PULSE 94; RESP 16; O2SAT 96
== END 2021-09-25 02:41 | disposition home or self-care (01) ==
PROVIDERS: Emergency Provider Emergency Medicine
DX: N30.01 Acute cystitis with hematuria (principal); I10 Essential (primary) hypertension; E11.9 Type 2 diabetes mellitus without complications; G40.909 Epilepsy, unspecified, not intractable, without status epilepticus; Z79.82 Long term (current) use of aspirin; Z79.899 Other long term (current) drug therapy
CPT/HCPCS: 80307; 81001; 87086; 87088; 87186; 99285

== ENCOUNTER → 2021-09-26 14:56 | Outpatient (BNVA) | payer MEDICARE, MEDICAID, SELFPAY | PROVIDERS: Referring Provider Internal Medicine; Visit Provider Nurse Practitioner Family | DX: K21.9 Gastro-esophageal reflux disease without esophagitis (principal); R10.84 Generalized abdominal pain; K58.9 Irritable bowel syndrome, unspecified; E66.01 Morbid (severe) obesity due to excess calories; E11.22 Type 2 diabetes mellitus with diabetic chronic kidney disease; R80.9 Proteinuria, unspecified; E87.1 Hypo-osmolality and hyponatremia; E78.5 Hyperlipidemia, unspecified; I10 Essential (primary) hypertension; G11.9 Hereditary ataxia, unspecified; F79 Unspecified intellectual disabilities; F41.8 Other specified anxiety disorders; Z83.3 Family history of diabetes mellitus; Z82.49 Family history of ischemic heart disease and other diseases of the circulatory system; Z88.2 Allergy status to sulfonamides; Z88.1 Allergy status to other antibiotic agents; Z91.011 Allergy to milk products; Z79.899 Other long term (current) drug therapy | CPT/HCPCS: 99212 ==

== ENCOUNTER 2021-10-02 15:35 | Outpatient (REF) | payer MEDICARE, MEDICAID, SELFPAY ==
[2021-10-02 16:37] LABS: Hemoglobin 10.4 g/dl (14.0-18.0); Mean Corpuscular HGB Conc 32.5 g/dl (31.0-36.0); Mean Corpuscular Hemoglobin 30.2 pg (27.0-33.0); Mean Platelet Volume 9.5 fL (9.4-12.4); Platelet Count 175 X10*3/uL (160-400); Red Blood Count 3.44 X10*6/uL (4.60-5.80); Red Cell Distribution Width 12.9 % (11.0-16.0); White Blood Count 5.9 X10*3/uL (4.8-10.8)
[2021-10-02 16:54] LABS: Alanine Aminotransferase 15 U/L (0-40); Albumin Level 3.5 g/dL (3.5-5.0); Alkaline Phosphatase 65 U/L (39-117); Anion Gap 13 (12-20); Aspartate Amino Transferase 15 U/L (5-37); B Type Natriuretic Peptide 120 pg/mL (<100); Bilirubin Total < 0.2 mg/dL (0.0-1.0); Blood Urea Nitrogen 26 mg/dL (9-16); Calcium 8.8 mg/dL (8.4-10.2); Carbon Dioxide 26 mmol/L (22-29); Chloride 106 mmol/L (96-108); Estimated Glomerular Filt Rate > 60; Glucose Random 124 mg/dL (60-115); Potassium 4.4 mmol/L (3.3-5.1); Sodium 141 mmol/L (135-145); Total Protein 6.4 g/dL (6.5-8.0)
[2021-10-02 17:13] LABS: Thyroid Stimulating Hormone 1.01 uIU/mL (0.32-4.0)
[2021-10-02 18:13] LABS: Atypical Lymph Absolute Manual 0.1 x10*3/uL; Atypical Lymphs Percent Manual 2 % (0-6); Band Neutrophils Percent 9 % (3-5); Basophils Abs Manual 0.1 X10*3/uL (0.0-0.2); Basophils Percent Manual 1 % (0-2); Eosinophils Absolute Manual 0.1 X10*3/uL (0.0-0.4); Eosinophils Percent Manual 1 % (0-4); Large Platelet PRESENT; Lymphocytes Absolute Manual 1.5 X10*3/uL (1.2-4.9); Lymphocytes Percent Manual 26 % (20-40); Metamyelocytes Absolute 0.1 X10*3/uL; Metamyelocytes Percent 2 %; Monocytes Absolute Manual 0.6 X10*3/uL (0.1-1.2); Monocytes Percent Manual 11 % (2-11); Neutrophils Absolute Manual 3.4 X10*3/uL (2.0-8.3); Neutrophils Percent Manual 48 % (45-73); Platelet Estimate NORMAL (NORMAL); Platelet Morphology Comment NOTED; RBC Morphology NOTED; Schistocytes 1+ (0-2) /OIF; Tear Drop Cells 1+ (0-2) /OIF
== END 2021-10-02 15:36 | disposition home or self-care (01) ==
LOC: HO.LAB 15:35
PROVIDERS: PCP Internal Medicine; Visit Provider Internal Medicine
DX: E87.1 Hypo-osmolality and hyponatremia (principal)
CPT/HCPCS: 36415; 80053; 83880; 84439; 84443; 85007; 85025; 85027

== ENCOUNTER 2021-10-08 17:51 | Emergency (ER) | payer MEDICARE, MEDICAID, SELFPAY ==
--- NOTE | ~2021-10-08 | XR_ITS ---
EXAMINATION: XR CHEST CLINICAL INFORMATION: Chest pain COMPARISON: 08/01/2021 TECHNIQUE: Frontal view of the chest was obtained. FINDINGS: Mild coarse chronic interstitial prominence. No focal consolidation or mass. Normal pulmonary vascularity. No pleural effusion or pneumothorax. Prominent cardiac silhouette likely accentuated by AP technique. XR/XR chest 1V IMPRESSION: No acute pulmonary disease.
--- NOTE | 2021-10-08 18:02 | ED_ITS ---
HPI - Psych General Chief Complaint: Chest Pain Stated Complaint: chest pain/SI Time Seen by Provider: 10/08/21 18:03 Source: patient, EMS and old records reviewed Mode of arrival: EMS Limitations: no limitations History of Present Illness MD complaint: suicidal ideation and other (chest pain) Onset (ago): day(s) (SI is a daily chronic thing, chest pain started earlier today) Duration: constant History of same: Yes Relieving factors: none Exacerbating factors: none Context: significant life stressor Associated psychiatric symptoms: depression and suicidal ideation Associated symptoms: denies other symptoms Treatments prior to arrival: none If self harm: admits thoughts of self harm Related Data Home Medications Medication Instructions Recorded Confirmed atorvastatin 10 mg tablet 10 mg PO BEDTIME 11/28/20 08/15/21 aspirin 81 mg tablet,delayed 81 mg PO DAILY 01/23/21 08/15/21 release (Ecotrin Low Strength) cyanocobalamin (vitamin B-12) 1,000 mcg PO DAILY@199905/07/21 08/15/21 1,000 mcg tablet ferrous sulfate 325 mg (65 mg 325 mg PO BID 06/23/21 08/15/21 iron) tablet gabapentin 100 mg capsule 200 mg PO BID 06/23/21 08/15/21 lisinopril 20 mg tablet 1 tab PO DAILY 06/23/21 08/15/21 risperidone 3 mg tablet 1 tab PO BID 06/23/21 08/15/21 cholecalciferol (vitamin D3) 25 25 mcg PO DAILY 07/29/21 08/15/21 mcg (1,000 unit) tablet diphenoxylate-atropine 2.5 2 tab PO TID PRN 07/29/21 08/15/21 mg-0.025 mg tablet (Lomotil) fluticasone 250 mcg-salmeterol 50 1 puff INHALATION BID 07/29/21 08/15/21 mcg/dose blistr powdr for inhalation (Advair Diskus) ondansetron 4 mg disintegrating 4 mg PO Q6H PRN 07/29/21 08/15/21 tablet albuterol sulfate 90 mcg/actuation 2 puff INHALATION Q6H PRN 08/15/21 08/15/21 aerosol inhaler dexlansoprazole 60 mg 60 mg PO BEDTIME 08/15/21 08/15/21 capsule,biphase delayed release (Dexilant) dextromethorphan-guaifenesin 5 10 ml PO Q4H PRN 08/15/21 08/15/21 mg-100 mg/5 mL oral liquid (Robitussin Cough-Chest Congestion DM) propranolol 20 mg tablet 20 mg PO TID@0800,1600,2000 08/15/21 08/15/21 divalproex 500 mg tablet,extended 500 mg PO DAILY 09/26/21 release 24 hr (Depakote ER) gabapentin 100 mg capsule 100 mg PO BID 09/26/21 (Neurontin) methylcellulose (laxative) 500 mg 500 mg PO DAILY 09/26/21 tablet (Citrucel) divalproex 500 mg tablet,extended 1,000 mg PO BID tab 09/28/21 release 24 hr (Depakote ER) fluoride (sodium) 1.1 % dental 1 appl DENTAL BID ml 09/28/21 paste (PreviDent 5000 Booster Plus) neomycin-bacitracn Zn-polymyx 3.5 1 appl TOPICAL BID PRN 09/28/21 mg-400 unit-5,000 unit/gram top oint (Triple Antibiotic) simethicone 125 mg capsule (Gas 125 mg PO TID-QID PRN 09/28/21 Relief (simethicone)) Previous Rx's Medication Instructions Recorded acetaminophen 325 mg tablet 650 mg PO Q4H PRN 90 Days #180 tab 04/27/21 lactase 3,000 unit tablet (Lactaid) 3,000 unit PO TIDWM #90 tab 08/27/21 fluticasone propionate 50 1 spray INTRANASAL BID #16 g 08/31/21 mcg/actuation nasal spray,suspension cefuroxime axetil 250 mg tablet 250 mg PO BID 7 Days #14 tab 09/28/21 nut.therapy,urea cycle disordr 15 1 ea PO BID #400 g 09/28/21 gram-393 kcal/100 gram oral pwdr hydralazine 50 mg tablet 50 mg PO TID 90 Days #270 tab 10/01/21 metformin 500 mg tablet 500 mg PO BID 3 Days #6 tab 10/05/21 urea 15 gram oral powder packet 1 packet PO DAILY 30 Days #8 ea 10/08/21 (Ure-Na) Allergies Allergy/AdvReac Type Severity Reaction Status Date / Time Sulfa (Sulfonamide Allergy Severe CHAVEZ Verified 09/26/21 15:03 Antibiotics) ALICIA REACTION, Chavez Alicia trimethoprim Allergy Mild UNKNOWN Verified 09/26/21 15:03 lactose AdvReac Mild STOMACH Verified 09/26/21 15:03 UPSET Review of Systems Review of Systems: Constitutional : No Fever, No Chills ENT/Mouth : No Ear Pain, No Nasal Congestion, No sore throat Eyes: No Eye Pain, No Swelling, No Redness Cardiovascular : pos Chest Pain, No SOB Respiratory : No Cough, No Sputum, No Dyspnea Gastrointestinal : No Nausea, No Vomiting, No Diarrhea, No Hematochezia, No Melena Genitourinary : No Dysuria, No Urinary Frequency, No Hematuria Musculoskeletal : No Myalgias Skin : No Skin Lesions, No rash Neuro : No Weakness, No Numbness, No Paresthesias, No Dizziness, No Headache Psych : positive Anxiety, positive Depression, positive SI no HI Heme/Lymph: No Lymphadenopathy Endocrine : No Polyuria, No Polydipsia All other systems reviewed and are negative [facility] Past Medical History Attestation statement: The following information was validated with the patient. Medical History Anemia Anxiety Asthma Cerebellar ataxia Depression Essential hypertension Hyperlipidemia LDL goal <100 Hypertension Hyponatremia Lactose intolerance Mental disability Obesity due to excess calories Peripheral vascular disease Proteinuria Right ankle pain Seizure disorder Type 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 Vertigo Surgical History History of orchiectomy Family History Family History Father Myocardial infarction CVD (cardiovascular disease) Diabetes mellitus Mother Diabetes mellitus HTN (hypertension) Brother In good health Sister In good health Social History Social History Household Members: Other Household Members Other:: from [facility] Housing: Other Housing Other:: [facility] Do you presently have visiting nurse or other home services: Yes Alcohol intake: never Patient Tobacco Use Status: Never used Tobacco e-Cigarette/Vaping Use: Never Used Second Hand Smoke Exposure: No Advance Directives: No Advance Directives Information Provided: Yes Advance Directives Date on File: 05/23/21 service: No Current occupational status: disabled Physical Exam Vital Signs: Vital Signs: Last Vital Signs Temp 98.0 F 10/08/21 20:23 Pulse 74 10/08/21 20:23 Resp 16 10/08/21 20:23 BP 161/90 H 10/08/21 20:23 Pulse Ox 99 10/08/21 20:23 Body Mass Index 33.9 Appearance: Alert. Oriented X3. No acute distress. Eyes: Pupils equal, round and reactive to light. ENT: Pharynx normal. Neck: Normal inspection. Neck supple. CVS: Normal heart rate and rhythm. Pulses normal. Respiratory: No respiratory distress. Breath sounds normal. Abdomen: Soft and non-tender. Skin: Skin warm and dry. Normal skin color. Normal skin turgor. Extremities: No lower extremity edema. No calf ttp Neuro: Oriented X 3. No motor deficit. No sensory deficit. Flat affect Course Course Course Narrative: nonischemic EKG and trop under delta stable for DC MDM - Psych MDM Narrative Medical decision making narrative: 51 yo male with hx of DM, Schizophrenia chronic chest pain complaints, RLQ pain chronically and daily SI comes to the ED again with chronic SI - has no real plan and has not acted on plan in past CARE team aware he is not going inpatient he [facility] to the [facility] he notes this is no change from his baseline. As for his chest pain it is atypical and has been going on all day - EKG, troponin x 1, CXR if negative stable for DC Lab Data Labs: Lab Results 10/08/21 10/08/21 Range/Units 18:52 20:23 Troponin I High Sens 6.1 D 8.8 (<3.5-35.0) ng/L ECG Data Attestation: I personally reviewed and interpreted this ECG as follows: ECG interpretation date: 10/08/21 ECG interpretation time: 19:02 Interpretation: Rate: 70 Rhythm: NSR [place]: normal Normal P waves. Normal FLORI. Normal QRS complex. ST T wave : nonspecific, no PILAR, artifact noted qTC: normal prior studies: from tremor artifact noted but no ischemia The study has been interpreted contemporaneously by me. . Discharge Plan Discharge Clinical Impression: Atypical chest pain Schizophrenia Qualifiers: Schizophrenia type: unspecified Qualified Code(s): F20.9 - Schizophrenia, unspecified Patient Disposition: Home, Self-Care Instructions: Chest Pain (ED), Schizophrenia (ED) Additional Instructions: return to ED for any worsening symptoms or concerns please follow up with your providers Prescriptions: No Action acetaminophen 325 mg tablet 650 mg PO Q4H PRN (Reason: fever or pain) 90 Days Qty: 180 RF: 2 lactase [Lactaid] 3,000 unit tablet 3,000 unit PO TIDWM Qty: 90 RF: 3 fluoride (sodium) [PreviDent 5000 Booster Plus] 1.1 % paste 1 appl dental BID RF: 0 divalproex [Depakote ER] 500 mg tablet extended release 24 hr 1,000 mg PO BID RF: 0 simethicone [Gas Relief (simethicone)] 125 mg capsule 125 mg PO TID-QID PRNRF: 0 Triple Antibiotic 3.5mg-400 unit- 5,000 unit/gram ointment 1 appl topical BID PRNRF: 0 hydralazine 50 mg tablet 50 mg PO TID 90 Days Qty: 270 RF: 2 metformin 500 mg tablet 500 mg PO BID 3 Days Qty: 6 RF: 0 Ure-Na 15 gram powder in packet 1 packet PO DAILY 30 Days Qty: 8 RF: 11 aspirin [Ecotrin Low Strength] 81 mg Tablet,Delayed Release (Dr/Ec) 81 mg PO DAILY RF: 0 fluticasone propion-salmeterol [Advair Diskus] 250-50 mcg/dose blister with device 1 puff inhalation BID RF: 0 diphenoxylate-atropine [Lomotil] 2.5-0.025 mg Tablet 2 tab PO TID PRN (Reason: Diarrhea) RF: 0 ondansetron 4 mg Tablet,Disintegrating 4 mg PO Q6H PRN (Reason: Nausea) RF: 0 cholecalciferol (vitamin D3) 25 mcg (1,000 unit) tablet 25 mcg PO DAILY RF: 0 atorvastatin 10 mg tablet 10 mg PO BEDTIME RF: 0 cyanocobalamin (vitamin B-12) 1,000 mcg tablet 1,000 mcg PO DAILY@1999 RF: 0 ferrous sulfate 325 mg (65 mg iron) Tablet 325 mg PO BID RF: 0 lisinopril 20 mg tablet 1 tab PO DAILY RF: 0 gabapentin 100 mg capsule 200 mg PO BID RF: 0 risperidone 3 mg tablet 1 tab PO BID RF: 0 Robitussin Cough-Chest Maury DM 5-100 mg/5 mL Liquid 10 ml PO Q4H PRN (Reason: Cough) RF: 0 albuterol sulfate 90 mcg/actuation Hfa Aerosol Inhaler 2 puff INHALATION Q6H PRN (Reason: Wheezing) RF: 0 propranolol 20 mg tablet 20 mg PO TID@0800,1600,2000 RF: 0 Dexilant 60 mg capsule,biphase delayed releas 60 mg PO BEDTIME RF: 0 cefuroxime axetil 250 mg tablet 250 mg PO BID 7 Days Qty: 14 RF: 0 fluticasone propionate 50 mcg/actuation spray,suspension 1 spray INTRANASAL BID Qty: 16 RF: 11 Citrucel 500 mg tablet 500 mg PO DAILY RF: 0
--- NOTE | 2021-10-08 18:03 | ECG_ITS ---
Test Reason : CP Blood Pressure : / mmHG Vent. Rate : 071 BPM Atrial Rate : 293 BPM P-R Int : 000 ms QRS Dur : 084 ms QT Int : 392 ms P-R-T Axes : 089 -02 027 degrees QTc Int : 425 ms Atrial flutter with variable A-V block Low voltage QRS RSR' or QR pattern in V1 suggests right ventricular conduction delay Abnormal ECG When compared with ECG of 27-AUG-2021 16:20, Atrial flutter has replaced Sinus rhythm Referred By: Bhavana Loaiza Electronically Signed By:VERONICA CRUMP MD
[2021-10-08 18:23] VITALS: BMI 33.9
[2021-10-08 18:49] VITALS: BP 178/110; PULSE 89; RESP 18; TEMP 36.6; O2SAT 96
[2021-10-08 19:22] LABS: Troponin-I High Sensitivity 6.1 ng/L (<3.5-35.0)
[2021-10-08 20:23] VITALS: BP 161/90; PULSE 74; RESP 16; TEMP 36.7; O2SAT 99
[2021-10-08 20:51] LABS: Troponin-I High Sensitivity 8.8 ng/L (<3.5-35.0)
== END 2021-10-08 21:49 | disposition home or self-care (01) ==
LOC: HO.ED 18:34
PROVIDERS: Emergency Provider Emergency Medicine
DX: R07.89 Other chest pain (principal); F20.9 Schizophrenia, unspecified; R10.31 Right lower quadrant pain; Z79.899 Other long term (current) drug therapy
CPT/HCPCS: 36415; 71045; 84484; 93005; 99283; 99284

== ENCOUNTER 2021-10-09 16:53 | Emergency (ER) | payer MEDICARE, MEDICAID, SELFPAY ==
--- NOTE | 2021-10-09 16:59 | ED.PSYCH ---
HPI - Psych General Chief Complaint: General Medical Stated Complaint: unknown Source: patient and EMS Mode of arrival: EMS Limitations: no limitations History of Present Illness HPI Narrative: 51-year-old male presents via EMS for suicidal ideation and bilateral lower extremity edema. Patient presents to the emergency department several times daily for similar complaints. MD complaint: suicidal ideation Onset (ago): year(s) Duration: constant History of same: Yes Relieving factors: none Associated psychiatric symptoms: depression, suicidal ideation and homicidal ideation Associated symptoms: denies other symptoms Treatments prior to arrival: none Related Data Home Medications Medication Instructions Recorded Confirmed atorvastatin 10 mg tablet 10 mg PO BEDTIME 11/28/20 08/15/21 aspirin 81 mg tablet,delayed 81 mg PO DAILY 01/23/21 08/15/21 release (Ecotrin Low Strength) cyanocobalamin (vitamin B-12) 1,000 mcg PO DAILY@199905/07/21 08/15/21 1,000 mcg tablet ferrous sulfate 325 mg (65 mg 325 mg PO BID 06/23/21 08/15/21 iron) tablet gabapentin 100 mg capsule 200 mg PO BID 06/23/21 08/15/21 lisinopril 20 mg tablet 1 tab PO DAILY 06/23/21 08/15/21 risperidone 3 mg tablet 1 tab PO BID 06/23/21 08/15/21 cholecalciferol (vitamin D3) 25 25 mcg PO DAILY 07/29/21 08/15/21 mcg (1,000 unit) tablet diphenoxylate-atropine 2.5 2 tab PO TID PRN 07/29/21 08/15/21 mg-0.025 mg tablet (Lomotil) fluticasone 250 mcg-salmeterol 50 1 puff INHALATION BID 07/29/21 08/15/21 mcg/dose blistr powdr for inhalation (Advair Diskus) ondansetron 4 mg disintegrating 4 mg PO Q6H PRN 07/29/21 08/15/21 tablet albuterol sulfate 90 mcg/actuation 2 puff INHALATION Q6H PRN 08/15/21 08/15/21 aerosol inhaler dexlansoprazole 60 mg 60 mg PO BEDTIME 08/15/21 08/15/21 capsule,biphase delayed release (Dexilant) dextromethorphan-guaifenesin 5 10 ml PO Q4H PRN 08/15/21 08/15/21 mg-100 mg/5 mL oral liquid (Robitussin Cough-Chest Congestion DM) propranolol 20 mg tablet 20 mg PO TID@0800,1600,2000 08/15/21 08/15/21 divalproex 500 mg tablet,extended 500 mg PO DAILY 09/26/21 release 24 hr (Depakote ER) gabapentin 100 mg capsule 100 mg PO BID 09/26/21 (Neurontin) methylcellulose (laxative) 500 mg 500 mg PO DAILY 09/26/21 tablet (Citrucel) divalproex 500 mg tablet,extended 1,000 mg PO BID tab 09/28/21 release 24 hr (Depakote ER) fluoride (sodium) 1.1 % dental 1 appl DENTAL BID ml 09/28/21 paste (PreviDent 5000 Booster Plus) neomycin-bacitracn Zn-polymyx 3.5 1 appl TOPICAL BID PRN 09/28/21 mg-400 unit-5,000 unit/gram top oint (Triple Antibiotic) simethicone 125 mg capsule (Gas 125 mg PO TID-QID PRN 09/28/21 Relief (simethicone)) Previous Rx's Medication Instructions Recorded acetaminophen 325 mg tablet 650 mg PO Q4H PRN 90 Days #180 tab 04/27/21 lactase 3,000 unit tablet (Lactaid) 3,000 unit PO TIDWM #90 tab 08/27/21 fluticasone propionate 50 1 spray INTRANASAL BID #16 g 08/31/21 mcg/actuation nasal spray,suspension cefuroxime axetil 250 mg tablet 250 mg PO BID 7 Days #14 tab 09/28/21 nut.therapy,urea cycle disordr 15 1 ea PO BID #400 g 09/28/21 gram-393 kcal/100 gram oral pwdr hydralazine 50 mg tablet 50 mg PO TID 90 Days #270 tab 10/01/21 metformin 500 mg tablet 500 mg PO BID 3 Days #6 tab 10/05/21 urea 15 gram oral powder packet 1 packet PO DAILY 30 Days #8 ea 10/08/21 (Ure-Na) furosemide 20 mg tablet (Lasix) 20 mg PO QAM #30 tab 10/09/21 Allergies Allergy/AdvReac Type Severity Reaction Status Date / Time Sulfa (Sulfonamide Allergy Severe CHAVEZ Verified 09/26/21 15:03 Antibiotics) ALICIA REACTION, Chavez Alicia trimethoprim Allergy Mild UNKNOWN Verified 09/26/21 15:03 lactose AdvReac Mild STOMACH Verified 09/26/21 15:03 UPSET Review of Systems Review of Systems: Constitutional: No Fever, No Chills ENT/Mouth: No Ear Pain, No Nasal Congestion, No sore throat Eyes: No Eye Pain, No Swelling, No Redness Cardiovascular: No Chest Pain, No SOB, positive bilateral lower extremity edema. Respiratory: No Cough, No Sputum, No Dyspnea Gastrointestinal: No Nausea, No Vomiting, No Diarrhea, No Hematochezia, No Melena Genitourinary: No Dysuria, No Urinary Frequency, No Hematuria Musculoskeletal: No Myalgias Skin: No Skin Lesions, No rash Neuro: No Weakness, No Numbness, No Paresthesias, No Dizziness, No Headache Psych: positive Anxiety, positive Depression, positive SI, positive HI Heme/Lymph: No Lymphadenopathy Endocrine: No Polyuria, No Polydipsia Yes all other systems are reviewed and are negative PMFSH Past Medical History Attestation statement: The following information was validated with the patient. 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 Vertigo Surgical History History of orchiectomy Family History Family History Father Myocardial infarction CVD (cardiovascular disease) Diabetes mellitus Mother Diabetes mellitus HTN (hypertension) Brother In good health Sister In good health Social History Social History Household Members: Other Household Members Other:: from longterm Housing: Other Housing Other:: longterm Do you presently have visiting nurse or other home services: Yes Alcohol intake: never Patient Tobacco Use Status: Never used Tobacco e-Cigarette/Vaping Use: Never Used Second Hand Smoke Exposure: No Advance Directives: No Advance Directives Information Provided: No Advance Directives Date on File: 05/23/21 service: No Current occupational status: disabled Physical Exam Vital Signs: Vital Signs: Last Vital Signs Temp 98 F 10/09/21 17:01 Pulse 87 10/09/21 17: Resp 18 10/09/21 17: BP 177/66 H 10/09/21 17:01 Pulse Ox 99 10/09/21 17:01 Body Mass Index 36.6 Appearance: Alert. Oriented X3. No acute distress. Eyes: Pupils equal, round and reactive to light. ENT: Pharynx normal. Neck: Normal inspection. Neck supple. CVS: Normal heart rate and rhythm. Pulses normal. Respiratory: No respiratory distress. Breath sounds normal. Abdomen: Soft and nontender. Skin: Skin warm and dry. Normal skin color. Normal skin turgor. Extremities: Bilateral lower extremity edema +3 pitting. Neuro: No motor deficit. No sensory deficit. Cranial nerves 2-12 intact. Course Course Course Narrative: 51-year-old male presents via EMS for suicidal ideation, homicidal ideation, and bilateral lower extremity edema. Patient has been on Lasix in the past, was discontinued by his primary care physician sometime ago. I did have a detailed discussion with [employer] v[employer] worker who is at bedside, patient does have a primary care physician a visit on October 15. Plan is to restart Lasix at this time. Will give 20 mg p.o. day, which was prescribed to him earlier. He was switched to hydralazine 25 mg t.i.d. which has been ineffective in reducing his edema. As far as his suicidal and homicidal ideation. Patient presents to the emergency department on a daily or multiple times daily for similar circumstances. There is a care plan in place. BHN consult not required at this time. Plan of care to discharge home with dye house v[employer] worker. MDM - Psych Differential Diagnosis Differential diagnosis: Likely homicidal ideation and suicidal ideation Medical Records Attestation: I reviewed the patient's medical records. Lab Data Attestation: I reviewed the patient's lab results. Result diagrams: 10/09/21 17:13 Discharge Plan Discharge Clinical Impression: Edema Qualifiers: Edema type: generalized Qualified Code(s): R60.1 - Generalized edema Patient Disposition: Home, Self-Care Instructions: Leg Edema (ED) Additional Instructions: You were evaluated for bilateral lower extremity edema. We restarted your Lasix 20 mg p.o. daily. Please follow-up with primary care physician this week. Follow-up with outpatient psychiatry as scheduled. Thank you for choosing this emergency department for evaluation. Please follow-up with primary care physician as needed. Return to the emergency department for any new, concerning, or worsening symptoms. Prescriptions: New furosemide [Lasix] 20 mg tablet 20 mg PO QAM Qty: 30 RF: 0 No Action acetaminophen 325 mg tablet 650 mg PO Q4H PRN (Reason: fever or pain) 90 Days Qty: 180 RF: 2 lactase [Lactaid] 3,000 unit tablet 3,000 unit PO TIDWM Qty: 90 RF: 3 fluoride (sodium) [PreviDent 5000 Booster Plus] 1.1 % paste 1 appl dental BID RF: 0 divalproex [Depakote ER] 500 mg tablet extended release 24 hr 1,000 mg PO BID RF: 0 simethicone [Gas Relief (simethicone)] 125 mg capsule 125 mg PO TID-QID PRNRF: 0 Triple Antibiotic 3.5mg-400 unit- 5,000 unit/gram ointment 1 appl topical BID PRNRF: 0 hydralazine 50 mg tablet 50 mg PO TID 90 Days Qty: 270 RF: 2 metformin 500 mg tablet 500 mg PO BID 3 Days Qty: 6 RF: 0 Ure-Na 15 gram powder in packet 1 packet PO DAILY 30 Days Qty: 8 RF: 11 aspirin [Ecotrin Low Strength] 81 mg Tablet,Delayed Release (Dr/Ec) 81 mg PO DAILY RF: 0 fluticasone propion-salmeterol [Advair Diskus] 250-50 mcg/dose blister with device 1 puff inhalation BID RF: 0 diphenoxylate-atropine [Lomotil] 2.5-0.025 mg Tablet 2 tab PO TID PRN (Reason: Diarrhea) RF: 0 ondansetron 4 mg Tablet,Disintegrating 4 mg PO Q6H PRN (Reason: Nausea) RF: 0 cholecalciferol (vitamin D3) 25 mcg (1,000 unit) tablet 25 mcg PO DAILY RF: 0 atorvastatin 10 mg tablet 10 mg PO BEDTIME RF: 0 cyanocobalamin (vitamin B-12) 1,000 mcg tablet 1,000 mcg PO DAILY@2000 RF: 0 ferrous sulfate 325 mg (65 mg iron) Tablet 325 mg PO BID RF: 0 lisinopril 20 mg tablet 1 tab PO DAILY RF: 0 gabapentin 100 mg capsule 200 mg PO BID RF: 0 risperidone 3 mg tablet 1 tab PO BID RF: 0 Robitussin Cough-Chest Maury DM 5-100 mg/5 mL Liquid 10 ml PO Q4H PRN (Reason: Cough) RF: 0 albuterol sulfate 90 mcg/actuation Hfa Aerosol Inhaler 2 puff INHALATION Q6H PRN (Reason: Wheezing) RF: 0 propranolol 20 mg tablet 20 mg PO TID@0800,1600,2000 RF: 0 Dexilant 60 mg capsule,biphase delayed releas 60 mg PO BEDTIME RF: 0 cefuroxime axetil 250 mg tablet 250 mg PO BID 7 Days Qty: 14 RF: 0 fluticasone propionate 50 mcg/actuation spray,suspension 1 spray INTRANASAL BID Qty: 16 RF: 11 Citrucel 500 mg tablet 500 mg PO DAILY RF: 0
[2021-10-09 17:01] VITALS: BP 150/72; BP 177/66; PULSE 87; PULSE 96; RESP 18; TEMP 36.6; O2SAT 100; O2SAT 99; BMI 36.6
[2021-10-09] MEDS: Furosemide 40 MG TABLET PO (17:19)
[2021-10-09 17:45] LABS: B Type Natriuretic Peptide 113 pg/mL (<100)
[2021-10-09 17:49] LABS: Anion Gap 13 (12-20); Blood Urea Nitrogen 16 mg/dL (9-16); Calcium 8.9 mg/dL (8.4-10.2); Carbon Dioxide 22 mmol/L (22-29); Chloride 108 mmol/L (96-108); Creatinine Clr Calc Pharmacy 107.9; Estimated Glomerular Filt Rate > 60; Glucose Random 137 mg/dL (60-115); Sodium 138 mmol/L (135-145)
== END 2021-10-09 18:27 | disposition home or self-care (01) ==
PROVIDERS: Nurse Practitioner Family; Emergency Provider Emergency Medicine; PCP Internal Medicine
DX: R60.1 Generalized edema (principal); R45.851 Suicidal ideations; F32.A Depression, unspecified; R44.0 Auditory hallucinations; I10 Essential (primary) hypertension; E11.9 Type 2 diabetes mellitus without complications; E78.5 Hyperlipidemia, unspecified; Z79.02 Long term (current) use of antithrombotics/antiplatelets; Z79.82 Long term (current) use of aspirin; Z79.899 Other long term (current) drug therapy
CPT/HCPCS: 36415; 80048; 83880; 99282; 99283

== ENCOUNTER 2021-10-16 11:50 | Outpatient (REF) | payer MEDICARE, MEDICAID, SELFPAY ==
[2021-10-16 12:08] LABS: Appearance Urine CLEAR; Color Urine YELLOW; Glucose Urine UA NEG (NEG); Leukocyte Esterase Urine NEG (NEG); Nitrite Urine NEG (NEG); Urine Blood NEG (NEG); Urine Ketones NEG (NEG); Urine Protein NEG (NEG-TRACE)
[2021-10-16 12:47] LABS: Creatinine Urine 56.34 mg/dL
[2021-10-16 12:49] LABS: Creatinine Urine 55.73 mg/dL; Microalbum/Creatinine Ratio Ur 10.7 ug/mg cr
== END 2021-10-16 11:51 | disposition home or self-care (01) ==
LOC: HO.LNP 11:50
PROVIDERS: Nurse Practitioner Gerontology; Visit Provider Internal Medicine
DX: E11.65 Type 2 diabetes mellitus with hyperglycemia (principal); E11.29 Type 2 diabetes mellitus with other diabetic kidney complication; R07.9 Chest pain, unspecified
CPT/HCPCS: 81003; 82043

== ENCOUNTER 2021-10-27 13:49 | Emergency (ER) | payer MEDICARE, MEDICAID, SELFPAY ==
--- NOTE | ~2021-10-27 | XR_ITS ---
EXAMINATION: XR CHEST CLINICAL INFORMATION: Upper abdominal pain COMPARISON: X-ray chest 10/08/2021 TECHNIQUE: 2 views of the chest were obtained. FINDINGS: Mild coarse interstitial prominence. No focal consolidation. Normal pulmonary vascularity. No pleural effusion or pneumothorax. Cardiomediastinal silhouette is stable. No gross free air is seen in the upper abdomen. Thoracic spine degeneration. XR/XR chest 2V IMPRESSION: No acute pulmonary disease.
--- NOTE | ~2021-10-27 | CT_ITS ---
EXAMINATION: CT ABDOMEN AND PELVIS WITH CONTRAST CLINICAL INFORMATION: Abdominal pain for several days COMPARISON: 05/07/2021 and 07/02/2010 TECHNIQUE: Multidetector volumetric images were obtained from the superior aspect of the liver through the pubic symphysis following administration 85 mL of Omnipaque 350 intravenous contrast. Sagittal and coronal reformatted images were obtained on the technologist's workstation. Oral contrast: No This CT examination was performed using dose optimization techniques as appropriate, variously including the following: *Automated exposure control *Adjustment of mA and/or kV according to patient size (this includes techniques or standardized protocols for targeted exams where dose is matched to indication/reason for exam; i.e. extremities or head) *Use of iterative reconstruction technique DLP: 821 mGy-cm FINDINGS: LUNG BASES: The visualized lung bases are unremarkable. LIVER, GALLBLADDER, AND BILIARY TREE: The liver is normal in size, shape, and attenuation. No focal hepatic lesion or biliary ductal dilatation is present. Gallbladder unremarkable. PANCREAS: Unremarkable. SPLEEN: Unremarkable. ADRENAL GLANDS: Unremarkable. KIDNEYS AND URETERS: The kidneys are normal in size, shape, and attenuation. No hydronephrosis, hydroureter, or calculi seen. No perinephric stranding. BLADDER: Unremarkable. GASTROINTESTINAL TRACT: The small and large bowel are unremarkable. The appendix is unremarkable. ABDOMINAL WALL: No hernia. Stable heterogeneously calcified structures within the soft tissues overlying the sacrum on either side of the gluteal cleft, larger on the right measuring up to 7 cm. LYMPH NODES: Normal. VASCULAR: Aorta is atherosclerotic but normal caliber. Patent venous structures. PELVIC VISCERA: Unremarkable. OSSEOUS STRUCTURES: No acute or suspicious osseous abnormalities. CT/CT abdomen pelvis w con IMPRESSION: * No acute findings within the abdomen or pelvis to explain the patient's symptomatology. * Chronic coarsely calcified soft tissue within the subcutis fat posterior to the sacrum on either side of the gluteal cleft. 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
--- NOTE | 2021-10-27 14:46 | ECG_ITS ---
Test Reason : ABD PAIN Blood Pressure : / mmHG Vent. Rate : 078 BPM Atrial Rate : 078 BPM P-R Int : 176 ms QRS Dur : 088 ms QT Int : 374 ms P-R-T Axes : 057 -04 028 degrees QTc Int : 426 ms Normal sinus rhythm Normal ECG When compared with ECG of 08-OCT-2021 18:58, Prior EKG is poor quality and rhythm appears to sinus Referred By: Lynne Michele Electronically Signed By:LINDA CHAMBERLAIN MD
--- NOTE | 2021-10-27 14:49 | ED.ABDPAIN ---
HPI - Abdominal Pain General Chief Complaint: Abdominal Pain Stated Complaint: ABD PAIN Time Seen by Provider: 10/27/21 14:16 History of Present Illness HPI narrative: 51-year-old male with a past medical history of mentally delayed with behavioral issues, cerebral ataxia, seizure disorder, vertigo, obesity, hypertension, hyperlipidemia, PVD, diabetes, anemia, recurrent falls, hyponatremia, multiple psychiatric admissions presenting to the ED via EMS with complaints of upper abdominal pain and a sore throat that started today. He denies any other symptoms related to this. He denies any fevers, chills, dizziness, headaches, neck pain/stiffness, trouble swallowing or breathing, nasal congestion/rhinorrhea, cough, dyspnea on exertion, orthopnea, palpitations, chest pain, shortness of breath, radiation of the abdominal pain, back pain, dysuria, hematuria, rashes, abnormal penile discharge, diarrhea constipation, black or bloody stools, recent travel or sick contacts or any other symptoms complaints or concerns at this time. MD elicited complaint: abdominal pain Pertinent past history: none Onset (ago): hour(s) Pain Consistency: constant Location: LUQ and RUQ Severity: mild Quality: aching Radiation: none Migration to: no migration Exacerbating factors: nothing Relieving factors: nothing Associated symptoms: other (Sore throat) Related Data Home Medications Medication Instructions Recorded Confirmed atorvastatin 10 mg tablet 10 mg PO BEDTIME 11/28/20 10/26/21 cyanocobalamin (vitamin B-12) 1,000 mcg PO DAILY@199905/07/21 10/26/21 1,000 mcg tablet gabapentin 100 mg capsule 200 mg PO BID 06/23/21 10/26/21 lisinopril 20 mg tablet 1 tab PO DAILY 06/23/21 10/26/21 risperidone 3 mg tablet 1 tab PO BID 06/23/21 10/26/21 cholecalciferol (vitamin D3) 25 25 mcg PO DAILY 07/29/21 10/26/21 mcg (1,000 unit) tablet diphenoxylate-atropine 2.5 2 tab PO TID PRN 07/29/21 10/26/21 mg-0.025 mg tablet (Lomotil) fluticasone 250 mcg-salmeterol 50 1 puff INHALATION BID 07/29/21 10/26/21 mcg/dose blistr powdr for inhalation (Advair Diskus) dexlansoprazole 60 mg 60 mg PO BEDTIME 08/15/21 10/26/21 capsule,biphase delayed release (Dexilant) methylcellulose (laxative) 500 mg 500 mg PO DAILY 09/26/21 10/26/21 tablet (Citrucel) divalproex 500 mg tablet,extended 1,000 mg PO BID tab 09/28/21 10/26/21 release 24 hr (Depakote ER) fluoride (sodium) 1.1 % dental 1 appl DENTAL BID ml 09/28/21 10/26/21 paste (PreviDent 5000 Booster Plus) simethicone 125 mg capsule (Gas 125 mg PO TID-QID PRN 09/28/21 10/26/21 Relief (simethicone)) Previous Rx's Medication Instructions Recorded acetaminophen 325 mg tablet 650 mg PO Q4H PRN 90 Days #180 tab 04/27/21 lactase 3,000 unit tablet (Lactaid) 3,000 unit PO TIDWM #90 tab 08/27/21 nut.therapy,urea cycle disordr 15 1 ea PO BID #400 g 09/28/21 gram-393 kcal/100 gram oral pwdr hydralazine 50 mg tablet 50 mg PO TID 90 Days #270 tab 10/01/21 urea 15 gram oral powder packet 1 packet PO DAILY 30 Days #8 ea 10/08/21 (Ure-Na) albuterol sulfate 90 mcg/actuation 2 puff INHALATION Q6H PRN #8.5 g 10/12/21 aerosol inhaler dextromethorphan-guaifenesin 5 10 ml PO Q4H PRN #237 ml 10/12/21 mg-100 mg/5 mL oral liquid (Robitussin Cough-Chest Congestion DM) fluticasone propionate 50 1 spray INTRANASAL BID #16 g 10/12/21 mcg/actuation nasal spray,suspension furosemide 20 mg tablet (Lasix) 20 mg PO QAM #30 tab 10/12/21 artifi.tears(hypromellose)(PF) 0.3 1 drp OPHTHALMIC (EYE) Q4-6H PRN 10/17/21 % eye drops #10 ml aspirin 81 mg tablet,delayed 81 mg PO DAILY #90 tab 10/22/21 release (Ecotrin Low Strength) neomycin-bacitracn Zn-polymyx 3.5 1 appl TOPICAL BID PRN #28.4 g 10/22/21 mg-400 unit-5,000 unit/gram top oint (Triple Antibiotic) ondansetron 4 mg disintegrating 4 mg PO Q6H PRN #20 tab 10/22/21 tablet ferrous sulfate 325 mg (65 mg 325 mg PO BID tab 10/25/21 iron) tablet propranolol 20 mg tablet 20 mg PO TID@0800,1600,2000 90 10/25/21 Days #270 tab Allergies Allergy/AdvReac Type Severity Reaction Status Date / Time Sulfa (Sulfonamide Allergy Severe CHAVEZ Verified 10/26/21 15:26 Antibiotics) ALICIA REACTION, Chavez Alicia trimethoprim Allergy Mild UNKNOWN Verified 10/26/21 15:26 lactose AdvReac Mild STOMACH Verified 10/26/21 15:26 UPSET Review of Systems Review of Systems Constitutional : No Weight loss, No Fever, No Chills, No Night Sweats, No Fatigue, No Malaise ENT/Mouth : No Hearing loss, No Ear Pain, No Nasal Congestion, No Sinus Pain, No Hoarseness, + sore throat, No Rhinorrhea, No Swallowing Difficulty Eyes: No Eye Pain, No Swelling, No Redness, No Foreign Body, No Discharge, No Vision Changes Cardiovascular : No Chest Pain, No SOB, No Dyspnea on Exertion, No Orthopnea, No Edema, No Palpitations Respiratory : No Cough, No Sputum, No Wheezing, No Smoke Exposure, No Dyspnea Gastrointestinal : No Nausea, No Vomiting, No Diarrhea, No Constipation, + abdominal Pain, No Hematochezia, No Melena Genitourinary : no irregular bleeding, No Dysuria, No Urinary Frequency, No Hematuria, No Urinary Incontinence, No Urgency, No Flank Pain, No Urinary Flow Changes, No Hesitancy Musculoskeletal : No joint pain, No Myalgias, No Joint Swelling Skin : No Skin Lesions, No rash Neuro : No Weakness, No Numbness, No Paresthesias, No Loss of Consciousness, No Dizziness, No Headache Psych : No Anxiety/Panic, No Depression, No SI/HI/AH/VH, No Social Issues, Heme/Lymph: No Bruising, No Bleeding,No Lymphadenopathy Endocrine : No Polyuria, No Polydipsia, No Temperature Intolerance Yes all other systems are reviewed and are negative Physical Exam Vital Signs: Vital Signs: Last Vital Signs Temp 98.9 F 10/27/21 18:53 Pulse 76 10/27/21 18:53 Resp 16 10/27/21 18:53 BP 152/81 H 10/27/21 18:53 Pulse Ox 99 10/27/21 18:53 BMI result Body Mass Index 33.9 vital signs have been reviewed as normal and appeared to be correct. Blood pressure normal. Heart rate normal. Respiration rate normal. Temperature normal. Oxygen saturation normal. Appearance: Alert. Oriented X3. No acute distress. Head: Normal external exam. Normocephalic. Eyes: PERRLA. EOMI. Conjunctiva and sclera normal. Eyelids normal. ENT: Pharynx normal. Uvula midline. Moist mucous membranes. Neck: Normal inspection. Neck supple. FROM. No adenopathy. No meningeal signs. CVS: Normal heart rate and rhythm. Heart sound normal. No murmurs noted. Pulses normal throughout. Respiratory: No respiratory distress. Painless inspiration. Breath sounds normal. No wheezes/rales/rhonchi noted. Chest nontender. No accessory muscle usage noted or decreased air movement noted. Abdomen: Soft and tenderness up patient to bilateral upper quadrants with guarding. Not rigid. Nondistended. No guarding. No rigidity. Bowel sounds normal in all 4 quadrants. No distention noted. No organomegaly noted. No visible injury noted. No rebound tenderness. Negative Rovsing sign. Negative obturator's sign. Negative psoas sign. Negative Sampson sign. Back: No CVA tenderness. Full range of motion noted. Skin: Skin warm and dry. Normal skin color. Normal skin turgor. No rashes/lesions/lacerations noted. Extremities: Extremities exhibit normal range of motion. Extremities nontender. Neuro: Oriented X 3. No motor deficit. No sensory deficit. Reflexes normal. Normal steady gait. Course Course Course Narrative: 16:30pm - labs reviewed and patient with a white blood cell count of 4000 this is similar when compared to prior. Mild baseline anemia improved when compared to prior. Low platelet count 79 similar compared to prior. BUN 34 improved when compared to prior. Troponin 3.7 improved when compared to prior will repeat in 3 hours. Otherwise all other labs are within normal limits. Patient negative for strep. Chest x-ray within normal limits no acute processes are noted. EKG is normal sinus rhythm no acute ischemic changes are noted and similar compared to prior EKG in August. Awaiting CT scan abdomen pelvis with IV contrast will re-evaluate. Reevaluation(s) Reevaluation #1: - repeat troponin negative delta. Therefore will DC home with instructions to return if any new or worsening symptoms to follow up with primary care provider. Patient understands agrees with this plan. Time: 19:30 MDM - Abdominal Pain MDM Narrative Medical decision making narrative: 15pm - 51-year-old male with a past medical history of mentally delayed with behavioral issues, cerebral ataxia, seizure disorder, vertigo, obesity, hypertension, hyperlipidemia, PVD, diabetes, anemia, recurrent falls, hyponatremia, multiple psychiatric admissions presenting to the ED via EMS with complaints of upper abdominal pain and a sore throat that started today. Plan: Labs, EKG, strep culture,, UA, CT scan abdomen pelvis with IV contrast provide a L of IV fluids and re-evaluate. Medical Records Attestation: I reviewed the patient's medical records. Lab Data Attestation: I reviewed the patient's lab results. Result diagrams: 10/27/21 15:44 10/27/21 15:44 Labs: Lab Results 10/27/21 10/27/21 10/27/21 Range/Units 15:44 15:44 15:44 WBC 4.4 L (4.8-10.8) X10*3/uL RBC 3.96 L (4.60-5.80) X10*6/uL Hgb 11.9 L (14.0-18.0) g/dl Hct 36.5 L (42.0-52.0) % MCV 92.2 (80.0-98.0) fL MCH 30.1 (27.0-33.0) pg MCHC 32.6 (31.0-36.0) g/dl RDW 13.4 (11.0-16.0) % Plt Count 79 L (160-400) X10*3/uL MPV 10.6 (9.4-12.4) fL Immature Gran % (Auto) 0.5 H (0.0-0.4) % Neut % (Auto) 53.1 (45-73) % Lymph % (Auto) 37.9 (20-40) % [place] % (Auto) 6.4 (2-11) % Eos % (Auto) 1.6 (0-4) % Baso % (Auto) 0.5 (0-2) % Lymph # (Auto) 1.7 (1.2-4.9) X10*3/uL [place] # (Auto) 0.3 (0.1-1.2) X10*3/uL Eos # (Auto) 0.1 (0.0-0.4) X10*3/uL Baso # (Auto) 0.0 (0.0-0.2) X10*3/uL Abs Immat Gran (auto) 0.02 (0.00-0.03) X10*3/uL Absolute Neuts (auto) 2.3 (2.0-8.3) x10*3/uL Absolute Nucleated RBC 0.000 (0.0-0.012) X10*3/uL Nucleated RBC % (auto) 0.0 (0.0-0.2) /100WBC Hold Purple Top SEE NOTE Sodium 137 (135-145) mmol/L Potassium 4.9 (3.3-5.1) mmol/L Chloride 101 (96-108) mmol/L Carbon Dioxide 27 (22-29) mmol/L Anion Gap 14 (12-20) BUN 34 H (9-16) mg/dL Creatinine 1.14 (0.5-1.4) mg/dL Estim Creat Clear Calc 81.0 Estimated GFR > 60 Random Glucose 89 (60-115) mg/dL Calcium 9.6 D (8.4-10.2) mg/dL Magnesium 1.8 (1.6-2.6) mg/dL Total Bilirubin 0.4 (0.0-1.0) mg/dL AST 17 (5-37) U/L ALT 13 (0-40) U/L Alkaline Phosphatase 74 (39-117) U/L Lactate Dehydrogenase 186 (118-273) U/L Troponin I High Sens (<3.5-35.0) ng/L Total Protein 7.7 (6.5-8.0) g/dL Albumin 4.1 (3.5-5.0) g/dL Amylase 91 (28-100) U/L Lipase 48 (8-78) U/L Urine Color Urine Appearance Urine pH (5.0-8.0) Ur Specific [place] (1.005-1.025) Urine Protein (NEG-TRACE) MG/DL Urine Glucose (UA) (NEG) MG/DL Urine Ketones (NEG) MG/DL Urine Blood (NEG) Urine Nitrite (NEG) Ur Leukocyte Esterase (NEG) S. pyogenes GrpA JIM (Negative) 10/27/21 10/27/21 10/27/21 Range/Units 15:44 15:45 19:02 WBC (4.8-10.8) X10*3/uL RBC (4.60-5.80) X10*6/uL Hgb (14.0-18.0) g/dl Hct (42.0-52.0) % MCV (80.0-98.0) fL MCH (27.0-33.0) pg MCHC (31.0-36.0) g/dl RDW (11.0-16.0) % Plt Count (160-400) X10*3/uL MPV (9.4-12.4) fL Immature Gran % (Auto) (0.0-0.4) % Neut % (Auto) (45-73) % Lymph % (Auto) (20-40) % [place] % (Auto) (2-11) % Eos % (Auto) (0-4) % Baso % (Auto) (0-2) % Lymph # (Auto) (1.2-4.9) X10*3/uL [place] # (Auto) (0.1-1.2) X10*3/uL Eos # (Auto) (0.0-0.4) X10*3/uL Baso # (Auto) (0.0-0.2) X10*3/uL Abs Immat Gran (auto) (0.00-0.03) X10*3/uL Absolute Neuts (auto) (2.0-8.3) x10*3/uL Absolute Nucleated RBC (0.0-0.012) X10*3/uL Nucleated RBC % (auto) (0.0-0.2) /100WBC Hold Purple Top Sodium (135-145) mmol/L Potassium (3.3-5.1) mmol/L Chloride (96-108) mmol/L Carbon Dioxide (22-29) mmol/L Anion Gap (12-20) BUN (9-16) mg/dL Creatinine (0.5-1.4) mg/dL Estim Creat Clear Calc Estimated GFR Random Glucose (60-115) mg/dL Calcium (8.4-10.2) mg/dL Magnesium (1.6-2.6) mg/dL Total Bilirubin (0.0-1.0) mg/dL AST (5-37) U/L ALT (0-40) U/L Alkaline Phosphatase (39-117) U/L Lactate Dehydrogenase (118-273) U/L Troponin I High Sens 3.7 3.6 (<3.5-35.0) ng/L Total Protein (6.5-8.0) g/dL Albumin (3.5-5.0) g/dL Amylase (28-100) U/L Lipase (8-78) U/L Urine Color Urine Appearance Urine pH (5.0-8.0) Ur Specific [place] (1.005-1.025) Urine Protein (NEG-TRACE) MG/DL Urine Glucose (UA) (NEG) MG/DL Urine Ketones (NEG) MG/DL Urine Blood (NEG) Urine Nitrite (NEG) Ur Leukocyte Esterase (NEG) S. pyogenes GrpA JIM Negative (Negative) 10/27/21 Range/Units 19:02 WBC (4.8-10.8) X10*3/uL RBC (4.60-5.80) X10*6/uL Hgb (14.0-18.0) g/dl Hct (42.0-52.0) % MCV (80.0-98.0) fL MCH (27.0-33.0) pg MCHC (31.0-36.0) g/dl RDW (11.0-16.0) % Plt Count (160-400) X10*3/uL MPV (9.4-12.4) fL Immature Gran % (Auto) (0.0-0.4) % Neut % (Auto) (45-73) % Lymph % (Auto) (20-40) % [place] % (Auto) (2-11) % Eos % (Auto) (0-4) % Baso % (Auto) (0-2) % Lymph # (Auto) (1.2-4.9) X10*3/uL [place] # (Auto) (0.1-1.2) X10*3/uL Eos # (Auto) (0.0-0.4) X10*3/uL Baso # (Auto) (0.0-0.2) X10*3/uL Abs Immat Gran (auto) (0.00-0.03) X10*3/uL Absolute Neuts (auto) (2.0-8.3) x10*3/uL Absolute Nucleated RBC (0.0-0.012) X10*3/uL Nucleated RBC % (auto) (0.0-0.2) /100WBC Hold Purple Top Sodium (135-145) mmol/L Potassium (3.3-5.1) mmol/L Chloride (96-108) mmol/L Carbon Dioxide (22-29) mmol/L Anion Gap (12-20) BUN (9-16) mg/dL Creatinine (0.5-1.4) mg/dL Estim Creat Clear Calc Estimated GFR Random Glucose (60-115) mg/dL Calcium (8.4-10.2) mg/dL Magnesium (1.6-2.6) mg/dL Total Bilirubin (0.0-1.0) mg/dL AST (5-37) U/L ALT (0-40) U/L Alkaline Phosphatase (39-117) U/L Lactate Dehydrogenase (118-273) U/L Troponin I High Sens (<3.5-35.0) ng/L Total Protein (6.5-8.0) g/dL Albumin (3.5-5.0) g/dL Amylase (28-100) U/L Lipase (8-78) U/L Urine Color YELLOW Urine Appearance CLEAR Urine pH 5.5 (5.0-8.0) Ur Specific [place] 1.010 (1.005-1.025) Urine Protein NEG (NEG-TRACE) MG/DL Urine Glucose (UA) NEG (NEG) MG/DL Urine Ketones 5 (NEG) MG/DL Urine Blood NEG (NEG) Urine Nitrite NEG (NEG) Ur Leukocyte Esterase NEG (NEG) S. pyogenes GrpA JIM (Negative) Imaging Data Chest x-ray: Attestation: I personally reviewed and interpreted this imaging study as follows: Radiologist's impression: FINDINGS: Mild coarse interstitial prominence. No focal consolidation. Normal pulmonary vascularity. No pleural effusion or pneumothorax. Cardiomediastinal silhouette is stable. No gross free air is seen in the upper abdomen. Thoracic spine degeneration. XR/XR chest 2V IMPRESSION: No acute pulmonary disease. CT scan abdomen and pelvis with IV contrast: Attestation: I personally reviewed and interpreted this imaging study as follows: ECG Data Attestation: I personally reviewed and interpreted this ECG as follows: ECG interpretation date: 10/27/21 ECG interpretation time: 03:49 Interpretation: Normal sinus rhythm with a ventricular rate of 78 with a normal PA interval normal QRS duration normal QT/QTC interval. No acute ischemic change are noted. Change when compared to prior EKG prior EKG on 10/08/2021 patient was in atrial flutter he is not in atrial flutter today although similar when compared to prior EKG 08/27/2021 Critical Care Time Critical Care Time Critical Care Time: Yes Total Critical Care Time: 60 Attestation: I personally attest to this time spent taking care of the patient Discharge Plan Discharge Clinical Impression: Abdominal pain Patient Disposition: Home, Self-Care Instructions: Abdominal Pain (ED) Prescriptions: No Action acetaminophen 325 mg tablet 650 mg PO Q4H PRN (Reason: fever or pain) 90 Days Qty: 180 RF: 2 lactase [Lactaid] 3,000 unit tablet 3,000 unit PO TIDWM Qty: 90 RF: 3 fluoride (sodium) [PreviDent 5000 Booster Plus] 1.1 % paste 1 appl dental BID RF: 0 divalproex [Depakote ER] 500 mg tablet extended release 24 hr 1,000 mg PO BID RF: 0 simethicone [Gas Relief (simethicone)] 125 mg capsule 125 mg PO TID-QID PRN (Reason: Gastrointestinal Spasms Or Cramping) RF: 0 hydralazine 50 mg tablet 50 mg PO TID 90 Days Qty: 270 RF: 2 Ure-Na 15 gram powder in packet 1 packet PO DAILY 30 Days Qty: 8 RF: 11 artifi.tears(hypromellose)(PF) 0.3 % drops 1 drp ophthalmic (eye) Q4-6H PRN (Reason: dry eye(s)) Qty: 10 RF: 0 aspirin [Ecotrin Low Strength] 81 mg tablet,delayed release (DR/EC) 81 mg PO DAILY Qty: 90 RF: 3 Triple Antibiotic 3.5mg-400 unit- 5,000 unit/gram ointment 1 appl topical BID PRN (Reason: cut) Qty: 28.4 RF: 0 ondansetron 4 mg tablet,disintegrating 4 mg PO Q6H PRN (Reason: Nausea) Qty: 20 RF: 3 ferrous sulfate 325 mg (65 mg iron) Tablet 325 mg PO BID RF: 0 propranolol 20 mg tablet 20 mg PO TID@0800,1600,2000 90 Days Qty: 270 RF: 3 fluticasone propion-salmeterol [Advair Diskus] 250-50 mcg/dose blister with device 1 puff inhalation BID RF: 0 diphenoxylate-atropine [Lomotil] 2.5-0.025 mg Tablet 2 tab PO TID PRN (Reason: Diarrhea) RF: 0 cholecalciferol (vitamin D3) 25 mcg (1,000 unit) tablet 25 mcg PO DAILY RF: 0 atorvastatin 10 mg tablet 10 mg PO BEDTIME RF: 0 cyanocobalamin (vitamin B-12) 1,000 mcg tablet 1,000 mcg PO DAILY@1999 RF: 0 lisinopril 20 mg tablet 1 tab PO DAILY RF: 0 gabapentin 100 mg capsule 200 mg PO BID RF: 0 risperidone 3 mg tablet 1 tab PO BID RF: 0 Dexilant 60 mg capsule,biphase delayed releas 60 mg PO BEDTIME RF: 0 Robitussin Cough-Chest Maury DM 5-100 mg/5 mL liquid 10 ml PO Q4H PRN (Reason: Cough) Qty: 237 RF: 0 albuterol sulfate 90 mcg/actuation HFA aerosol inhaler 2 puff INHALATION Q6H PRN (Reason: Wheezing) Qty: 8.5 RF: 0 fluticasone propionate 50 mcg/actuation spray,suspension 1 spray INTRANASAL BID Qty: 16 RF: 11 furosemide [Lasix] 20 mg tablet 20 mg PO QAM Qty: 30 RF: 0 Citrucel 500 mg tablet 500 mg PO DAILY RF: 0 Referrals: Physician,Unknown J [Primary Care Provider] - 2 days (Your PCP) Print Language: [place] [facility] Past Medical History Attestation statement: The following information was validated with the patient. Medical History Anemia Anxiety Asthma Cerebellar ataxia Depression Essential hypertension Hyperlipidemia LDL goal <100 Hypertension Hyponatremia Lactose intolerance Mental disability Obesity due to excess calories Peripheral vascular disease Proteinuria Right ankle pain Seizure disorder Type 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 Vertigo Surgical History History of orchiectomy Family History Family History Father Myocardial infarction CVD (cardiovascular disease) Diabetes mellitus Mother Diabetes mellitus HTN (hypertension) Brother In good health Sister In good health Social History Social History Household Members: Other Household Members Other:: from custodial Housing: Other Housing Other:: custodial Do you presently have visiting nurse or other home services: Yes Alcohol intake: never Patient Tobacco Use Status: Never used Tobacco e-Cigarette/Vaping Use: Never Used Second Hand Smoke Exposure: No Advance Directives: No Advance Directives Information Provided: Yes Advance Directives Date on File: 05/23/21 service: No Current occupational status: disabled
[2021-10-27 15:00] VITALS: BP 138/73; PULSE 74; RESP 16; TEMP 36.6; O2SAT 99; BMI 33.9
[2021-10-27 15:49] LABS: MANUAL DIFF FLAG NO
[2021-10-27 15:53] LABS: Basophils Percent Auto 0.5 % (0-2); Eosinophils Absolute Auto 0.1 X10*3/uL (0.0-0.4); Eosinophils Percent Auto 1.6 % (0-4); Hematocrit 36.5 % (42.0-52.0); Hemoglobin 11.9 g/dl (14.0-18.0); Imm Gran Abs Auto 0.02 X10*3/uL (0.00-0.03); Imm Gran Pct Auto 0.5 % (0.0-0.4); Lymphocytes Absolute Auto 1.7 X10*3/uL (1.2-4.9); Lymphocytes Percent Auto 37.9 % (20-40); Mean Corpuscular HGB Conc 32.6 g/dl (31.0-36.0); Mean Corpuscular Hemoglobin 30.1 pg (27.0-33.0); Mean Corpuscular Volume 92.2 fL (80.0-98.0); Mean Platelet Volume 10.6 fL (9.4-12.4); Monocytes Absolute Auto 0.3 X10*3/uL (0.1-1.2); Monocytes Percent Auto 6.4 % (2-11); Neutrophils Absolute Auto 2.3 x10*3/uL (2.0-8.3); Neutrophils Percent Auto 53.1 % (45-73); Red Blood Count 3.96 X10*6/uL (4.60-5.80); Red Cell Distribution Width 13.4 % (11.0-16.0); White Blood Count 4.4 X10*3/uL (4.8-10.8)
--- NOTE | 2021-10-27 15:54 | PC.NURSE ---
PATIENT WAS CHANGE INTO HOSPITAL ATTIRE .
[2021-10-27 16:00] VITALS: BP 136/80; PULSE 68; RESP 16; TEMP 36.6; O2SAT 97
[2021-10-27 16:06] LABS: Strep A Nucleic Acid Negative (Negative)
[2021-10-27 16:13] LABS: Alanine Aminotransferase 13 U/L (0-40); Albumin Level 4.1 g/dL (3.5-5.0); Alkaline Phosphatase 74 U/L (39-117); Amylase 91 U/L (28-100); Anion Gap 14 (12-20); Aspartate Amino Transferase 17 U/L (5-37); Bilirubin Total 0.4 mg/dL (0.0-1.0); Blood Urea Nitrogen 34 mg/dL (9-16); Calcium 9.6 mg/dL (8.4-10.2); Carbon Dioxide 27 mmol/L (22-29); Chloride 101 mmol/L (96-108); Estimated Glomerular Filt Rate > 60; Glucose Random 89 mg/dL (60-115); Lactate Dehydrogenase 186 U/L (118-273); Lipase 48 U/L (8-78); Magnesium 1.8 mg/dL (1.6-2.6); Potassium 4.9 mmol/L (3.3-5.1); Sodium 137 mmol/L (135-145); Total Protein 7.7 g/dL (6.5-8.0)
[2021-10-27 16:15] LABS: Platelet Count 79 X10*3/uL (160-400)
[2021-10-27] MEDS: 0.9 % Sodium Chloride 1,000 ML 999 ML IVCONT (16:21)
[2021-10-27 16:22] LABS: Troponin-I High Sensitivity 3.7 ng/L (<3.5-35.0)
[2021-10-27] MEDS: iohexoL 350 MG/ML 100 ML INFUS..BTL IV (17:09)
[2021-10-27 18:53] VITALS: BP 152/81; PULSE 76; RESP 16; TEMP 37.2; O2SAT 99
--- NOTE | 2021-10-27 19:09 | PC.NURSE ---
PATIENT ATE DINNER .
[2021-10-27 19:10] LABS: Appearance Urine CLEAR; Color Urine YELLOW; Glucose Urine UA NEG (NEG); Leukocyte Esterase Urine NEG (NEG); Nitrite Urine NEG (NEG); PH 5.5 (5.0-8.0); Urine Blood NEG (NEG); Urine Ketones 5 MG/DL (NEG); Urine Protein NEG (NEG-TRACE)
[2021-10-27 19:29] LABS: Troponin-I High Sensitivity 3.6 ng/L (<3.5-35.0)
[2021-10-27 19:33] LABS: COVID-19 Test Negative (Negative); IDNOW Serial# 9DD0AD1C
[2021-10-27 20:00] VITALS: BP 119/65; PULSE 86; RESP 16; TEMP 36.3; O2SAT 95
--- NOTE | 2021-10-27 20:11 | PC.NURSE ---
This rn called pt's residence and spoke with staff member Enzo requesting staff to provide transport home for pt from ED. Enzo states that he was going to request that [facility] ED provide transport d/t low staffing at home. Enzo informed of EMS unavailability until tomorrow AM. Enzo is going to call [facility] back with update after speaking to other staff at residence.
== END 2021-10-27 21:45 | disposition home or self-care (01) ==
PROVIDERS: Physician Assistant Medical; Emergency Provider Emergency Medicine
DX: R10.10 Upper abdominal pain, unspecified (principal); J02.9 Acute pharyngitis, unspecified; I10 Essential (primary) hypertension; E11.9 Type 2 diabetes mellitus without complications; D64.9 Anemia, unspecified; J45.909 Unspecified asthma, uncomplicated; G40.909 Epilepsy, unspecified, not intractable, without status epilepticus; Z79.899 Other long term (current) drug therapy; Z20.822 Contact with and (suspected) exposure to COVID-19
CPT/HCPCS: 36415; 71046; 74177; 80053; 81003; 82150; 83615; 83690; 83735; 84484; 85025; 87635; 87651; 93005; 96360; 99285; 99291; Q9967

== ENCOUNTER 2021-11-20 10:41 | Outpatient (REF) | payer MEDICARE, MEDICAID, SELFPAY ==
[2021-11-20 11:23] LABS: MANUAL DIFF FLAG NO
[2021-11-20 11:33] LABS: Basophils Percent Auto 0.5 % (0-2); Eosinophils Absolute Auto 0.1 X10*3/uL (0.0-0.4); Eosinophils Percent Auto 1.4 % (0-4); Hematocrit 35.5 % (42.0-52.0); Hemoglobin 11.5 g/dl (14.0-18.0); Imm Gran Abs Auto 0.01 X10*3/uL (0.00-0.03); Imm Gran Pct Auto 0.2 % (0.0-0.4); Immature Retic Fraction 12.2 % (2.3-13.4); Lymphocytes Absolute Auto 1.4 X10*3/uL (1.2-4.9); Lymphocytes Percent Auto 31.1 % (20-40); Mean Corpuscular HGB Conc 32.4 g/dl (31.0-36.0); Mean Corpuscular Hemoglobin 30.2 pg (27.0-33.0); Mean Corpuscular Volume 93.2 fL (80.0-98.0); Mean Platelet Volume 10.9 fL (9.4-12.4); Monocytes Absolute Auto 0.4 X10*3/uL (0.1-1.2); Monocytes Percent Auto 8.6 % (2-11); Neutrophils Absolute Auto 2.6 x10*3/uL (2.0-8.3); Neutrophils Percent Auto 58.2 % (45-73); Red Blood Count 3.81 X10*6/uL (4.60-5.80); Red Cell Distribution Width 13.3 % (11.0-16.0); Retic HGB Equivalent 35.8 pg (30.0-35.0); Reticulocyte Percent 1.6 % (0.5-1.8); Reticulocytes Absolute 0.061 X10*6/uL (0.026-0.095); White Blood Count 4.4 X10*3/uL (4.8-10.8)
[2021-11-20 11:34] LABS: Platelet Count 95 X10*3/uL (160-400)
[2021-11-20 11:38] LABS: Estimated Average Glucose 111 mg/dL; Hemoglobin A1c % 5.5 %
[2021-11-20 12:03] LABS: Alanine Aminotransferase 21 U/L (0-40); Albumin Level 3.7 g/dL (3.5-5.0); Alkaline Phosphatase 75 U/L (39-117); Anion Gap 11 (12-20); Aspartate Amino Transferase 21 U/L (5-37); Bilirubin Total 0.3 mg/dL (0.0-1.0); Blood Urea Nitrogen 47 mg/dL (9-16); Calcium 9.1 mg/dL (8.4-10.2); Carbon Dioxide 28 mmol/L (22-29); Chloride 105 mmol/L (96-108); Cholesterol 145 mg/dL; Estimated Glomerular Filt Rate > 60; Glucose Random 95 mg/dL (60-115); HDL Cholesterol 40 mg/dL; Iron 109 mcg/dL (45-160); LDL Cholesterol Calculated 84 mg/dl; Percent Iron Saturation 37 % (15-50); Potassium 4.6 mmol/L (3.3-5.1); Sodium 139 mmol/L (135-145); Total Iron Binding Capacity 295 mcg/dL (228-428); Triglycerides 108 mg/dL; Unsaturated Iron Binding 186 ug/dL
[2021-11-20 12:06] LABS: Valproate 84.1 mcg/mL (50.0-100.0)
[2021-11-20 12:29] LABS: Appearance Urine CLEAR; Color Urine YELLOW; Glucose Urine UA NEG (NEG); Leukocyte Esterase Urine TRACE (NEG); Nitrite Urine NEG (NEG); PH 5.5 (5.0-8.0); Specific Gravity - Urine 1.015 (1.005-1.025); UACC Culture Trigger YES; Urine Blood NEG (NEG); Urine Ketones NEG (NEG); Urine Protein NEG (NEG-TRACE)
[2021-11-20 12:30] LABS: Free T4 (Free Thyroxine) 1.44 ng/dL (0.71-1.85); Prostate Specific Antigen Scr 3.87 ng/mL (<0.05-4.0); Thyroid Stimulating Hormone 1.65 uIU/mL (0.32-4.0)
[2021-11-20 12:34] LABS: Folate 13.1 ng/mL (> or = 4.0); Vitamin B12 1489 pg/mL (200-900)
[2021-11-20 12:38] LABS: Ferritin 55 ng/mL (20-250)
[2021-11-20 12:47] LABS: Creatinine Urine 49.53 mg/dL; Microalbum/Creatinine Ratio Ur 22.2 ug/mg cr
[2021-11-20 13:09] LABS: Mucus Urine TRACE /LPF; RBC Urine 0 /HPF (0); WBC Urine 0-2 /HPF (0-4)
== END 2021-11-20 10:42 | disposition home or self-care (01) ==
LOC: HO.LAB 10:41
PROVIDERS: PCP Internal Medicine; Visit Provider Internal Medicine
DX: E11.65 Type 2 diabetes mellitus with hyperglycemia (principal); E78.00 Pure hypercholesterolemia, unspecified
CPT/HCPCS: 36415; 80053; 80061; 80164; 81001; 82043; 82607; 82728; 82746; 83036; 83540; 84153; 84439; 84443; 85025; 85045; 87086

== ENCOUNTER → 2021-11-28 09:58 | Outpatient (BNVA) | payer MEDICARE, MEDICAID, SELFPAY | PROVIDERS: PCP Internal Medicine; Referring Provider Internal Medicine; Visit Provider Internal Medicine | DX: R07.2 Precordial pain (principal); I10 Essential (primary) hypertension; E11.9 Type 2 diabetes mellitus without complications; F81.9 Developmental disorder of scholastic skills, unspecified | CPT/HCPCS: 99202 ==

== ENCOUNTER → 2022-01-11 09:43 | Outpatient (REF) | payer MEDICARE, MEDICAID, SELFPAY ==
--- NOTE | 2022-01-11 09:46 | CA_ITS ---
Transthoracic Echocardiogram Patient (Last, First, Middle): Raulito Zepeda R Gender: Male Date of : 1970 Age: 51 Procedure Date: 01/11/2022 Procedure Type: Transthoracic Echocardiogram Location: OP Height: 165.1 cm Weight: 92.53 kg BSA: 1.99 m2 Heart Rate: bpm BP: 124 / 76 mmHg [employer]: JESSICA Referring MD: Awais Wren MD Symptoms: R07.2 - Precordial pain Study Quality: Fair/contrast Conclusions: - Normal left ventricular size, thickness, systolic function, and wall motion. The visually estimated ejection fraction is between 60-65%. Diastolic function is normal for age. - Normal right ventricular cavity size and systolic function. - There is mild dilatation of the ascending aorta measuring 3.40 cm. Findings Procedure Information Contrast agent, definity, is being given per protocol without apparent complications. Left Ventricle Normal left ventricular size, thickness, systolic function, and wall motion. The visually estimated ejection fraction is between 60-65%. Diastolic function is normal for age. Right Ventricle Normal right ventricular cavity size and systolic function. Atria Both atria are normal in size. Aortic Valve Normal aortic valve structure and function. There is no aortic valve stenosis. There is no aortic valve regurgitation. Mitral Valve Normal mitral valve structure and function. There is no mitral valve regurgitation. There is no mitral valve stenosis. Pulmonic Valve Normal pulmonic valve structure and function. There is no pulmonic valve regurgitation. Tricuspid Valve Normal tricuspid valve structure. There is trace tricuspid valve regurgitation. Normal right atrial pressure. There is no evidence of pulmonary hypertension. Great Vessels There is mild dilatation of the ascending aorta measuring 3.40 cm. The visualized portions of the pulmonary artery and branches are normal. Venous The inferior vena cava is normal in size and collapses greater than 50% with inspiration. Pericardium/Pleural There is no evidence of pericardial effusion. Prior Study Comparison No significant change compared to prior study dated: 10/31/2009. Measurements 2D Linear Measurements IVSd: 1.09 0.6-0.9/0.6-1.0 cm LVIDd: 5.22 3.9-5.3/4.2-5.9 cm LVIDd Index: 2.62 2.4-3.2/2.2-3.1 cm/m2 LVIDs: 3.70 2.0-3.6 cm LVPWd: 0.96 0.7-1.1 cm LA Diam: 3.30 2.7-3.8/3.0-4.0 cm LAIDs Index: 1.66 1.5-2.3 cm/m2 LV Mass: 252.34 67-162/88-224 g LV Mass Index: 126.81 43-95/49-115 g/m2 LVOT Diam: 2.20 3.0+(-)1.3 cm 2D Systolic Function EF 4C: 66.80 >55% EF 2C: 65.30 >55% EF BiP: 66.90 >55% Mitral Valve MV Pk E: 0.70 MV PK A: 0.67 MV Decel Time: 192.00 E/A: 1.10 E'Lateral: 11.30 E'Medial: 7.40 E/E' Med: 9.50 E/E' Lat: 6.20 PHT: 56.00 MVA PHT: 3.93 Decel [place]: 3.67 Aortic Valve AoV Pk Nayan: 1.37 AoV Mn Nayan: 0.96 AoV VTI: 0.29 AoV Pk Grad: 8.00 Aov Mn Grad: 4.00 BLAISE Cont.VTI: 3.50 LVOT LVOT Pk Nayan: 1.12 LVOT Mn Nayan: 0.78 LVOT VTI: 0.27 LVOT Pk Grad: 5.00 LVOT Mn Grad: 3.00 LVOT Diam: 2.20 LVOT Area: 3.80 Diastolic Function MV Pk E: 0.70 MV Pk A: 0.67 E/A: 1.10 E'Medial: 7.40 E/E' Med: 9.50 E' Laterial: 11.30 E/E' Lat: 6.20 Right Ventricle TAPSE (mm): 24.80 TVS' Nayan: 12.20 Tricuspid Valve TR Pk Nayan: 1.87 TR Pk Grad: 14.00 RA Press: 3.00 RVSP: 17.00 Great Vessels Aorta Ao Asc: 3.40 2.1-3.4 cm Ao Arch: 3.10 Updated in Other Vendor System with Status of Final Oni Mcneil MD electronically signed on 01/13/2022 11:39:46 AM with status of Final
== END ==
LOC: HO.CARD 09:43
PROVIDERS: PCP Internal Medicine; Visit Provider Internal Medicine
DX: R07.2 Precordial pain (principal)
CPT/HCPCS: 93306; Q9957

== ENCOUNTER 2022-01-21 13:37 | Emergency (ER) | payer MEDICARE, MEDICAID, SELFPAY ==
[2022-01-21 13:59] VITALS: BP 146/68; BP 156/72; PULSE 72; PULSE 82; RESP 17; TEMP 36.8; O2SAT 98; BMI 33.9
--- NOTE | 2022-01-21 14:10 | ED.PSYCH ---
HPI - Psych General Chief Complaint: Psychiatric Symptoms Stated Complaint: CRISIS,SI Time Seen by Provider: 01/21/22 14:10 Source: patient Mode of arrival: EMS Limitations: no limitations History of Present Illness HPI Narrative: [facility] in a [facility], he is hearing voices that are telling him to hurt himself and other people. This has happened before and he needed to be admitted. Patient is not getting along with people at the [facility]. MD complaint: suicidal ideation and homicidal ideation Onset (ago): week(s) Duration: constant History of same: Yes Associated psychiatric symptoms: suicidal ideation Associated symptoms: denies other symptoms If self harm: admits thoughts of self harm Related Data Home Medications Medication Instructions Recorded Confirmed gabapentin 100 mg capsule 200 mg PO BID 06/23/21 11/28/21 lisinopril 20 mg tablet 1 tab PO DAILY 06/23/21 11/28/21 risperidone 3 mg tablet 1 tab PO BID 06/23/21 11/28/21 diphenoxylate-atropine 2.5 2 tab PO TID PRN 07/29/21 11/28/21 mg-0.025 mg tablet (Lomotil) fluticasone 250 mcg-salmeterol 50 1 puff INHALATION BID 07/29/21 11/28/21 mcg/dose blistr powdr for inhalation (Advair Diskus) divalproex 500 mg tablet,extended 1,000 mg PO BID tab 09/28/21 11/28/21 release 24 hr (Depakote ER) fluoride (sodium) 1.1 % dental 1 appl DENTAL BID ml 09/28/21 11/28/21 paste (PreviDent 5000 Booster Plus) simethicone 125 mg capsule (Gas 125 mg PO TID-QID PRN 09/28/21 11/28/21 Relief (simethicone)) Previous Rx's Medication Instructions Recorded acetaminophen 325 mg tablet 650 mg PO Q4H PRN 90 Days #180 tab 04/27/21 nut.therapy,urea cycle disordr 15 1 ea PO BID #400 g 09/28/21 gram-393 kcal/100 gram oral pwdr albuterol sulfate 90 mcg/actuation 2 puff INHALATION Q6H PRN #8.5 g 10/12/21 aerosol inhaler dextromethorphan-guaifenesin 5 10 ml PO Q4H PRN #237 ml 10/12/21 mg-100 mg/5 mL oral liquid (Robitussin Cough-Chest Congestion DM) fluticasone propionate 50 1 spray INTRANASAL BID #16 g 10/12/21 mcg/actuation nasal spray,suspension artifi.tears(hypromellose)(PF) 0.3 1 drp OPHTHALMIC (EYE) Q4-6H PRN 10/17/21 % eye drops #10 ml aspirin 81 mg tablet,delayed 81 mg PO DAILY #90 tab 10/22/21 release (Ecotrin Low Strength) neomycin-bacitracn Zn-polymyx 3.5 1 appl TOPICAL BID PRN #28.4 g 10/22/21 mg-400 unit-5,000 unit/gram top oint (Triple Antibiotic) ondansetron 4 mg disintegrating 4 mg PO Q6H PRN #20 tab 10/22/21 tablet propranolol 20 mg tablet 20 mg PO TID@0800,1600,2000 90 10/25/21 Days #270 tab urea 15 gram oral powder packet 1 packet PO DAILY 30 Days #8 ea 10/30/21 (Ure-Na) atorvastatin 10 mg tablet 10 mg PO BEDTIME #90 tab 11/20/21 dexlansoprazole 60 mg 60 mg PO BEDTIME #90 cap 11/20/21 capsule,biphase delayed release (Dexilant) ferrous sulfate 325 mg (65 mg 325 mg PO BID #60 tab 11/20/21 iron) tablet furosemide 20 mg tablet (Lasix) 20 mg PO Q OTHER DAY #30 tab 11/23/21 bismuth subsalicylate 262 mg 2 tab PO QID PRN 3 Days #24 tab 11/28/21 tablet (Pepto-Bismol) lactase 3,000 unit tablet (Lactaid) 3,000 unit PO TIDWM #90 tab 12/05/21 metformin 500 mg tablet 500 mg PO BID #180 tab 12/05/21 methylcellulose (laxative) 500 mg 500 mg PO DAILY #30 tab 12/05/21 tablet (Citrucel) blood sugar diagnostic (OneTouch #100 ea 12/17/21 Ultra Test) cholecalciferol (vitamin D3) 25 25 mcg PO DAILY #90 tab 12/17/21 mcg (1,000 unit) tablet hydralazine 50 mg tablet 50 mg PO TID 90 Days #270 tab 12/17/21 miscellaneous medical supply 1 ea MISCELLANEOUS DAILY #1 ea 12/20/21 cyanocobalamin (vitamin B-12) 1,000 mcg PO DAILY@1999 #90 tab 01/16/22 1,000 mcg tablet Allergies Allergy/AdvReac Type Severity Reaction Status Date / Time Sulfa (Sulfonamide Allergy Severe CHAVEZ Verified 11/28/21 10:17 Antibiotics) ALICIA REACTION, Chavez Alicia trimethoprim Allergy Mild UNKNOWN Verified 11/28/21 10:17 lactose AdvReac Mild STOMACH Verified 11/28/21 10:17 UPSET Review of Systems Constitutional: Constitutional: Reports no additional constitutional complaints Eyes: Eyes: Reports no additional eye complaints ENT: Denies dizziness Cardiovascular: Cardiovascular: Reports no additional cardiovascular complaints Respiratory: Respiratory: Reports as per HPI Gastrointestinal: Gastrointestinal: Reports no additional gastrointestinal complaints Musculoskeletal: Musculoskeletal: Reports no additional musculoskeletal complaints Integumentary/Breasts: Skin/Breast: Denies rash Neurologic: Reports system reviewed and no additional complaints, except as documented, Denies dizziness and Denies Sensory deficit (Neuro) Psychiatric: Psychiatric: Denies anxiety PMFSH Past Medical History Medical History Anemia Anxiety Asthma Cerebellar ataxia Depression Essential hypertension Hyperlipidemia LDL goal <100 Hypertension Hyponatremia Lactose intolerance Mental disability Obesity due to excess calories Peripheral vascular disease Proteinuria Right ankle pain Seizure disorder Type 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 Vertigo Surgical History History of orchiectomy Family History Family History Father Myocardial infarction CVD (cardiovascular disease) Diabetes mellitus Mother Diabetes mellitus HTN (hypertension) Brother In good health Sister In good health Social History Social History Household Members: Other Household Members Other:: from [facility] Housing: Other Housing Other:: [facility] Do you presently have visiting nurse or other home services: Yes Alcohol intake: never Patient Tobacco Use Status: Never used Tobacco e-Cigarette/Vaping Use: Never Used Second Hand Smoke Exposure: No Advance Directives: No Advance Directives Information Provided: Yes Advance Directives Date on File: 05/23/21 service: No Current occupational status: disabled Physical Exam Vital Signs: Vital Signs: Last Vital Signs Temp 98.3 F 01/21/22 13:59 Pulse 82 01/21/22 13:59 Resp 17 01/21/22 13:59 BP 156/72 H 01/21/22 13:59 Pulse Ox 98 01/21/22 13:59 BMI result Body Mass Index 33.9 Const: Other: male looking older than stated age, MR, with tremor Orientation/consciousness: oriented to person Limitations: no limitations HENMT: Head: Yes normal to inspection Ears: external ears normal General nose exam: Normal external nose present Mouth: Normal oral and palatal mucosa present and oropharynx normal Throat: Yes posterior oropharynx normal Eyes: Other: disconjugate gaze which is baseline Neck: Other: supple Neck: Yes normal visual inspection Chest: Chest palpation & inspection: normal inspection of the chest Resp: Auscultation: clear to auscultation bilaterally Cardio: Jugular venous distension: no JVD Rate: regular rate Rhythm: regular rhythm Heart sounds: S1 normal heart sound present and S2 normal heart sound present GI: Inspection: Yes normal to inspection Palpation (GI): Soft to palpation, nontender and No hepatosplenomegaly present Auscultation: normal bowel sounds : General: Yes no CVA tenderness Back/Spine/Pelvis: Back: no CVA tenderness Skin: General skin exam: no rashes or lesions noted Neuro: Other: disconjugate gaze General: oriented to person Motor exam (neuro): 5/5 motor strength present throughout Sensory Exam: No Sensory deficit (Neuro) Extrem: General: Yes normal to inspection Psych: Other: flat affect Course Reevaluation(s) Reevaluation #1: Care team know patient well. They discussed with [facility] and patient has not had any new trends. will dc home Time: 15:36 MDM - Psych Lab Data Result diagrams: 01/21/22 14:34 01/21/22 14:34 Labs: Lab Results 01/21/22 Range/Units 14:34 WBC 3.5 L (4.8-10.8) X10*3/uL RBC 3.63 L (4.60-5.80) X10*6/uL Hgb 11.0 L (14.0-18.0) g/dl Hct 34.3 L (42.0-52.0) % MCV 94.5 (80.0-98.0) fL MCH 30.3 (27.0-33.0) pg MCHC 32.1 (31.0-36.0) g/dl RDW 12.9 (11.0-16.0) % Plt Count 98 L (160-400) X10*3/uL MPV 9.5 (9.4-12.4) fL Immature Gran % (Auto) 0.6 H (0.0-0.4) % Neut % (Auto) 50.7 (45-73) % Lymph % (Auto) 33.4 (20-40) % [place] % (Auto) 12.4 H (2-11) % Eos % (Auto) 2.3 (0-4) % Baso % (Auto) 0.6 (0-2) % Lymph # (Auto) 1.2 (1.2-4.9) X10*3/uL [place] # (Auto) 0.4 (0.1-1.2) X10*3/uL Eos # (Auto) 0.1 (0.0-0.4) X10*3/uL Baso # (Auto) 0.0 (0.0-0.2) X10*3/uL Abs Immat Gran (auto) 0.02 (0.00-0.03) X10*3/uL Absolute Neuts (auto) 1.8 L (2.0-8.3) x10*3/uL Absolute Nucleated RBC 0.000 (0.0-0.012) X10*3/uL Nucleated RBC % (auto) 0.0 (0.0-0.2) /100WBC Discharge Plan Discharge Clinical Impression: Schizophrenia, Cognitive developmental delay, Depression Patient Disposition: Xfer LTC Prescriptions: No Action acetaminophen 325 mg tablet 650 mg PO Q4H PRN (Reason: fever or pain) 90 Days Qty: 180 2RF fluoride (sodium) [PreviDent 5000 Booster Plus] 1.1 % paste 1 appl dental BID 0RF Rx Instructions: [place] with thin ribbon for 2 minutes twice a day (morning and nights) and then spit out divalproex [Depakote ER] 500 mg tablet extended release 24 hr 1,000 mg PO BID 0RF Rx Instructions: Take two tabs by mouth twice a day nut.therapy,urea cycle disordr 15 gram-393 kcal/100 gram powder 1 ea PO BID Qty: 400 0RF Rx Instructions: Dissolved one packet of 15 gm into 8 oz of fluids and give by mouth every morning. simethicone [Gas Relief (simethicone)] 125 mg capsule 125 mg PO TID-QID PRN (Reason: Gastrointestinal Spasms Or Cramping) 0RF Rx Instructions: Take 1 capsule by mouth up to four times a day as needed for abdominal distension. artifi.tears(hypromellose)(PF) 0.3 % drops 1 drp ophthalmic (eye) Q4-6H PRN (Reason: dry eye(s)) Qty: 10 0RF aspirin [Ecotrin Low Strength] 81 mg tablet,delayed release (DR/EC) 81 mg PO DAILY Qty: 90 3RF Triple Antibiotic 3.5mg-400 unit- 5,000 unit/gram ointment 1 appl topical BID PRN (Reason: cut) Qty: 28.4 0RF Rx Instructions: Apply a thin layer to cut/scrape to skin twice a day as needed. Call provider if no results in 72 hours ondansetron 4 mg tablet,disintegrating 4 mg PO Q6H PRN (Reason: Nausea) Qty: 20 3RF propranolol 20 mg tablet 20 mg PO TID@0800,1600,2000 90 Days Qty: 270 3RF atorvastatin 10 mg tablet 10 mg PO BEDTIME Qty: 90 3RF Dexilant 60 mg capsule,biphase delayed releas 60 mg PO BEDTIME Qty: 90 3RF furosemide [Lasix] 20 mg tablet 20 mg PO Q OTHER DAY Qty: 30 0RF Pepto-Bismol 262 mg tablet 2 tab PO QID PRN (Reason: diarrhea) 3 Days Qty: 24 0RF Citrucel 500 mg tablet 500 mg PO DAILY Qty: 30 3RF Rx Instructions: Take one tablet by mouth daily in the morning. metformin 500 mg tablet 500 mg PO BID Qty: 180 3RF lactase [Lactaid] 3,000 unit tablet 3,000 unit PO TIDWM Qty: 90 3RF Rx Instructions: Dose confirmed with pharmacy for TID (not QID). Thank you. (DME) [facility] Ultra Test Strip See Rx Instructions .Route Qty: 100 11RF Rx Instructions: Test blood sugar 3 times a day as directed cholecalciferol (vitamin D3) 25 mcg (1,000 unit) tablet 25 mcg PO DAILY Qty: 90 3RF hydralazine 50 mg tablet 50 mg PO TID 90 Days Qty: 270 2RF Rx Instructions: dose not listed. unsure of dose miscellaneous medical supply Misc 1 ea miscellaneous DAILY Qty: 1 0RF Rx Instructions: Bilateral AFO cyanocobalamin (vitamin B-12) 1,000 mcg tablet 1,000 mcg PO DAILY@2000 Qty: 90 3RF ferrous sulfate 325 mg (65 mg iron) Tablet 325 mg PO BID Qty: 60 4RF fluticasone propion-salmeterol [Advair Diskus] 250-50 mcg/dose blister with device 1 puff inhalation BID 0RF diphenoxylate-atropine [Lomotil] 2.5-0.025 mg Tablet 2 tab PO TID PRN (Reason: Diarrhea) 0RF lisinopril 20 mg tablet 1 tab PO DAILY 0RF gabapentin 100 mg capsule 200 mg PO BID 0RF risperidone 3 mg tablet 1 tab PO BID 0RF Robitussin Cough-Chest [place] DM 5-100 mg/5 mL liquid 10 ml PO Q4H PRN (Reason: Cough) Qty: 237 0RF albuterol sulfate 90 mcg/actuation HFA aerosol inhaler 2 puff INHALATION Q6H PRN (Reason: Wheezing) Qty: 8.5 0RF fluticasone propionate 50 mcg/actuation spray,suspension 1 spray INTRANASAL BID Qty: 16 11RF Ure-Na 15 gram powder in packet 1 packet PO DAILY 30 Days Qty: 8 11RF Referrals: Po,Robert Downing MD [Primary Care Provider] - 1 week
[2022-01-21 14:42] LABS: MANUAL DIFF FLAG NO
[2022-01-21 14:43] LABS: Basophils Percent Auto 0.6 % (0-2); Eosinophils Absolute Auto 0.1 X10*3/uL (0.0-0.4); Eosinophils Percent Auto 2.3 % (0-4); Hematocrit 34.3 % (42.0-52.0); Imm Gran Abs Auto 0.02 X10*3/uL (0.00-0.03); Imm Gran Pct Auto 0.6 % (0.0-0.4); Lymphocytes Absolute Auto 1.2 X10*3/uL (1.2-4.9); Lymphocytes Percent Auto 33.4 % (20-40); Mean Corpuscular HGB Conc 32.1 g/dl (31.0-36.0); Mean Corpuscular Hemoglobin 30.3 pg (27.0-33.0); Mean Corpuscular Volume 94.5 fL (80.0-98.0); Mean Platelet Volume 9.5 fL (9.4-12.4); Monocytes Absolute Auto 0.4 X10*3/uL (0.1-1.2); Monocytes Percent Auto 12.4 % (2-11); Neutrophils Absolute Auto 1.8 x10*3/uL (2.0-8.3); Neutrophils Percent Auto 50.7 % (45-73); Platelet Count 98 X10*3/uL (160-400); Red Blood Count 3.63 X10*6/uL (4.60-5.80); Red Cell Distribution Width 12.9 % (11.0-16.0); White Blood Count 3.5 X10*3/uL (4.8-10.8)
--- NOTE | 2022-01-21 14:49 | MHC.CARE ---
CARE Team left for Brenda ([phone]), group leader regarding Pt.
--- NOTE | 2022-01-21 14:57 | MHC.CARE ---
CARE Team spoke carli Gutierrez, Program Manger- she reported Pt is at his baseline level of functioning. Pt was upset that he was not able to see his sister who was in the hospital. She stated pt is doing the things that he knows will get [facility] the [facility] . She reported she has no concerns regarding [facility] back to [facility].
[2022-01-21 16:12] LABS: Ethanol < 10 mg/dL
[2022-01-21 16:15] LABS: Amphetamine Screen Urine Not Detected (Not Detect); Barbiturates, Urine Not Detected (Not Detect); Benzodiazepines Screen Urine Not Detected (Not Detect); Cannabinoid Screen Urine Not Detected (Not Detect); Cocaine Screen Urine Not Detected (Not Detect); Fentanyl, urine Not Detected (Not Detect); Opiate Screen Urine Not Detected (Not Detect); Phencyclidine Screen Urine Not Detected (Not Detect)
[2022-01-21 16:28] LABS: Alanine Aminotransferase 17 U/L (0-40); Albumin Level 3.4 g/dL (3.5-5.0); Alkaline Phosphatase 72 U/L (39-117); Anion Gap 14 (12-20); Aspartate Amino Transferase 20 U/L (5-37); Bilirubin Total < 0.2 mg/dL (0.0-1.0); Blood Urea Nitrogen 35 mg/dL (9-16); Calcium 8.6 mg/dL (8.4-10.2); Carbon Dioxide 23 mmol/L (22-29); Chloride 104 mmol/L (96-108); Creatinine Clr Calc Pharmacy 89.7; Estimated Glomerular Filt Rate > 60; Glucose Random 176 mg/dL (60-115); Potassium 4.3 mmol/L (3.3-5.1); Sodium 137 mmol/L (135-145); Total Protein 6.3 g/dL (6.5-8.0)
== END 2022-01-21 17:10 ==
PROVIDERS: Emergency Provider Emergency Medicine; PCP Internal Medicine
DX: F20.9 Schizophrenia, unspecified (principal); F32.A Depression, unspecified; F81.9 Developmental disorder of scholastic skills, unspecified; R45.851 Suicidal ideations; R45.850 Homicidal ideations; I10 Essential (primary) hypertension; E78.5 Hyperlipidemia, unspecified; E11.9 Type 2 diabetes mellitus without complications; Z79.82 Long term (current) use of aspirin; Z79.899 Other long term (current) drug therapy; Z79.02 Long term (current) use of antithrombotics/antiplatelets
CPT/HCPCS: 36415; 80053; 80307; 82077; 85025; 99283; 99285

== ENCOUNTER → 2022-02-12 13:07 | Outpatient (BNVA) | payer MEDICARE, MEDICAID, SELFPAY | PROVIDERS: PCP Internal Medicine; Referring Provider Internal Medicine; Visit Provider Nurse Practitioner Family | DX: R07.2 Precordial pain (principal); I10 Essential (primary) hypertension; E78.5 Hyperlipidemia, unspecified; F81.9 Developmental disorder of scholastic skills, unspecified; E11.8 Type 2 diabetes mellitus with unspecified complications; Z79.84 Long term (current) use of oral hypoglycemic drugs; Z79.899 Other long term (current) drug therapy | CPT/HCPCS: 99212 ==

== ENCOUNTER 2022-03-15 12:56 | Emergency (ER) | payer MEDICARE, MEDICAID, SELFPAY ==
[2022-03-15 13:09] VITALS: BP 158/77; PULSE 79; RESP 18; TEMP 37.1; O2SAT 99; BMI 40.2
--- NOTE | 2022-03-15 13:29 | MHC.CARE ---
CARE Team spoke with [facility] staff- plan to be discharged back to [facility].
--- NOTE | 2022-03-15 13:38 | ED_ITS ---
HPI - Psych General Chief Complaint: Psychiatric Symptoms Stated Complaint: Crisis Time Seen by Provider: 03/15/22 13:38 Source: patient and other (SOURCING ENGINEER) Mode of arrival: ambulatory Limitations: no limitations History of Present Illness HPI Narrative: 51-year-old male history of schizophrenia brought to the ED for crisis Suicidal ideation AND AUDITORY HALLUCINATIONS stating SI statements. PATIENT MADE STATEMENTS TO HIS PRIMARY CARE PROVIDER. SOURCING ENGINEER STATES PATIENT STATING SUICIDAL AND AUDITORY HALLUCINATION IS BASELINE AND THEY HAVE A PROTOCOL IN PLACE WITH HIS OFFICIAL PRIMARY CARE PROVIDER WHERE PATIENT DOES NOT HAVE TO COME TO THE ER WHEN HE MAKES SI statems DUE TO THIS BEING HIS BASELINE IN THE [facility] HAS SAFTEY PROTOCOLS AND PEOPLE TO WATCH PATIENT. SOURCING ENGINEER STATES PATIENT SAW A NEW PRIMARY CARE PROVIDER AND he WAS UNFAMILIAR WITH PATIENT'S HISTORY SO SHE SENT PATIENT TO THE ER. PATIENT HAVE NO ACTIVE PLANS FOR SUICIDAL IDEATION. PATIENT HAS NO HOMICIDAL IDEATION. PATIENT HAS NO PHYSICAL COMPLAINTS. Related Data Home Medications Medication Instructions Recorded Confirmed gabapentin 100 mg capsule 200 mg PO BID 06/23/21 03/15/22 lisinopril 20 mg tablet 1 tab PO DAILY 06/23/21 03/15/22 risperidone 3 mg tablet 1 tab PO BID 06/23/21 03/15/22 divalproex 500 mg tablet,extended 1,000 mg PO BID tab 09/28/21 03/15/22 release 24 hr (Depakote ER) fluoride (sodium) 1.1 % dental 1 appl DENTAL BID ml 09/28/21 03/15/22 paste (PreviDent 5000 Booster Plus) simethicone 125 mg capsule (Gas 125 mg PO TID-QID PRN 09/28/21 03/15/22 Relief (simethicone)) Previous Rx's Medication Instructions Recorded acetaminophen 325 mg tablet 650 mg PO Q4H PRN 90 Days #180 tab 04/27/21 nut.therapy,urea cycle disordr 15 1 ea PO BID #400 g 09/28/21 gram-393 kcal/100 gram oral pwdr albuterol sulfate 90 mcg/actuation 2 puff INHALATION Q6H PRN #8.5 g 10/12/21 aerosol inhaler dextromethorphan-guaifenesin 5 10 ml PO Q4H PRN #237 ml 10/12/21 mg-100 mg/5 mL oral liquid (Robitussin Cough-Chest Congestion DM) fluticasone propionate 50 1 spray INTRANASAL BID #16 g 10/12/21 mcg/actuation nasal spray,suspension artifi.tears(hypromellose)(PF) 0.3 1 drp OPHTHALMIC (EYE) Q4-6H PRN 10/17/21 % eye drops #10 ml aspirin 81 mg tablet,delayed 81 mg PO DAILY #90 tab 10/22/21 release (Ecotrin Low Strength) neomycin-bacitracn Zn-polymyx 3.5 1 appl TOPICAL BID PRN #28.4 g 10/22/21 mg-400 unit-5,000 unit/gram top oint (Triple Antibiotic) ondansetron 4 mg disintegrating 4 mg PO Q6H PRN #20 tab 10/22/21 tablet propranolol 20 mg tablet 20 mg PO TID@0800,1600,1999 90 10/25/21 Days #270 tab atorvastatin 10 mg tablet 10 mg PO BEDTIME #90 tab 11/20/21 dexlansoprazole 60 mg 60 mg PO BEDTIME #90 cap 11/20/21 capsule,biphase delayed release (Dexilant) ferrous sulfate 325 mg (65 mg 325 mg PO BID #60 tab 11/20/21 iron) tablet bismuth subsalicylate 262 mg 2 tab PO QID PRN 3 Days #24 tab 11/28/21 tablet (Pepto-Bismol) metformin 500 mg tablet 500 mg PO BID #180 tab 12/05/21 blood sugar diagnostic (OneTouch #100 ea 12/17/21 Ultra Test) cholecalciferol (vitamin D3) 25 25 mcg PO DAILY #90 tab 12/17/21 mcg (1,000 unit) tablet hydralazine 50 mg tablet 50 mg PO TID 90 Days #270 tab 12/17/21 miscellaneous medical supply 1 ea MISCELLANEOUS DAILY #1 ea 12/20/21 cyanocobalamin (vitamin B-12) 1,000 mcg PO DAILY@1999 #90 tab 01/16/22 1,000 mcg tablet aluminum-mag hydroxide-simethicone 10 ml PO QID PRN #200 ml 02/04/22 400 mg-400 mg-40 mg/5 mL oral susp (Mylanta Maximum Strength) furosemide 20 mg tablet (Lasix) 20 mg PO Q OTHER DAY #45 tab 02/12/22 fluticasone 250 mcg-salmeterol 50 1 inh INHALATION BID #60 ea 02/20/22 mcg/dose blistr powdr for inhalation (Advair Diskus) urea 15 gram oral powder packet 1 packet PO DAILY 30 Days #8 ea 02/20/22 (Ure-Na) diphenoxylate-atropine 2.5 2 tab PO TID PRN #60 tab 03/07/22 mg-0.025 mg tablet (Lomotil) lactase 3,000 unit tablet (Lactaid) 3,000 unit PO TIDWM #90 tab 03/14/22 methylcellulose (laxative) 500 mg 500 mg PO DAILY #90 tab 03/15/22 tablet (Citrucel) Allergies Allergy/AdvReac Type Severity Reaction Status Date / Time Sulfa (Sulfonamide Allergy Severe CHAVEZ Verified 03/15/22 12:26 Antibiotics) ALICIA REACTION, Chavez Alicia trimethoprim Allergy Mild UNKNOWN Verified 03/15/22 12:26 lactose AdvReac Mild STOMACH Verified 03/15/22 12:26 UPSET Review of Systems Review of Systems: SUICIDAL IDEATION/BASELINE Yes all other systems are reviewed and are negative FORMERLY [facility], [facility] Past Medical History Medical History Anemia Anxiety Asthma Cerebellar ataxia Depression Essential hypertension Hyperlipidemia LDL goal <100 Hypertension Hyponatremia Lactose intolerance Mental disability Obesity due to excess calories Peripheral vascular disease Proteinuria Right ankle pain Seizure disorder Type 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 Vertigo Surgical History History of orchiectomy Family History Family History Father Myocardial infarction CVD (cardiovascular disease) Diabetes mellitus Mother Diabetes mellitus HTN (hypertension) Brother In good health Sister In good health Social History Social History Household Members: Other Household Members Other:: from [facility] Housing: Other Housing Other:: [facility] Do you presently have visiting nurse or other home services: Yes Alcohol intake: never Patient Tobacco Use Status: Never used Tobacco e-Cigarette/Vaping Use: Never Used Second Hand Smoke Exposure: No Advance Directives: No Advance Directives Information Provided: No Advance Directives Date on File: 05/23/21 service: No Current occupational status: disabled Cognitive needs: Yes (walker) Hearing needs: No Vision needs: Yes (glasses) Physical Exam Vital Signs: Vital Signs: Last Vital Signs Temp 98.7 F 03/15/22 13:09 Pulse 79 03/15/22 13:09 Resp 18 03/15/22 13:09 BP 158/77 H 03/15/22 13:09 Pulse Ox 99 03/15/22 13:09 BMI result Body Mass Index 40.2 Const: General: cooperative, healthy appearing, comfortable, no acute distress, well developed, alert, awake and Physically active Orientation/consciousness: patient oriented x3 HEENT: Head: Yes normal to inspection, Yes No palpable skull fracture present, Yes normocephalic, Yes atraumatic and No abrasion Eyes: General: appearance normal, both eyes and all related structures Neck: Neck: Yes normal visual inspection, Yes full ROM, Yes no lymphadenopathy, Yes no meningeal signs, Yes trachea midline, Yes supple, No anterior neck swelling and No tender Chest: Chest palpation & inspection: normal inspection of the chest and normal palpation of entire chest wall Resp: Effort & Inspection: normal respiratory effort and able to speak in complete sentences Auscultation: clear to auscultation bilaterally Cardio: Jugular venous distension: no JVD Heart sounds: S1 normal heart sound present and S2 normal heart sound present GI: Inspection: Yes normal to inspection Palpation (GI): Soft to palpation, not firm, nontender, no guarding and not rigid : General: No CVA tenderness and Yes no CVA tenderness Back/Spine/Pelvis: Back: no CVA tenderness, No CVA tenderness and No back tenderness Skin: General skin exam: no rashes or lesions noted and elasticity normal Neuro: General: patient oriented x3, gait normal, no meningeal signs and CN's II-XI intact bilaterally Cranial nerves: Yes CN's II-XII intact bilaterally Extrem: General: Yes normal to inspection and Yes full ROM Psych: Appearance: grossly normal, well kempt and not disheveled Course Course Course Narrative: PATIENT TO BE EVALUATED BY CARE TEAM Reevaluation(s) Reevaluation #1: CARE TEAM CONSULTED Holden who EVALUATED PATIENT and WITH AGREEMENT WITH punch press operator helper who present IN THE ER PATIENT CAN BE DISCHARGED BACK TO THE PROGRAM and WILL BE PLACED ON SAFETY PROTOCOL AND WILL BE WATCHED BY MANY STAFF MEMBERS. Patient will follow-up with therapist and psychiatrist. MDM - Psych Lab Data Labs: Lab Results 03/15/22 Range/Units 13:24 COVID-19 (MICHAELA) Negative (Negative) COVID-19 Clin Com See Note Discharge Plan Discharge Clinical Impression: Schizophrenia Patient Disposition: Home, Self-Care Instructions: Schizophrenia (ED) Additional Instructions: Please follow-up with your therapist psychiatrist and podiatrists. Return to the ED for any physical complaints, worsening auditory/visual hallucinations, suicidal/homicidal ideation, or any other concerning symptoms. Prescriptions: No Action acetaminophen 325 mg tablet 650 mg PO Q4H PRN (Reason: fever or pain) 90 Days Qty: 180 2RF fluoride (sodium) [PreviDent 5000 Booster Plus] 1.1 % paste 1 appl dental BID 0RF Rx Instructions: Wiseman with thin ribbon for 2 minutes twice a day (morning and nights) and then spit out divalproex [Depakote ER] 500 mg tablet extended release 24 hr 1,000 mg PO BID 0RF Rx Instructions: Take two tabs by mouth twice a day nut.therapy,urea cycle disordr 15 gram-393 kcal/100 gram powder 1 ea PO BID Qty: 400 0RF Rx Instructions: Dissolved one packet of 15 gm into 8 oz of fluids and give by mouth every morning. simethicone [Gas Relief (simethicone)] 125 mg capsule 125 mg PO TID-QID PRN (Reason: Gastrointestinal Spasms Or Cramping) 0RF Rx Instructions: Take 1 capsule by mouth up to four times a day as needed for abdominal distension. artifi.tears(hypromellose)(PF) 0.3 % drops 1 drp ophthalmic (eye) Q4-6H PRN (Reason: dry eye(s)) Qty: 10 0RF aspirin [Ecotrin Low Strength] 81 mg tablet,delayed release (DR/EC) 81 mg PO DAILY Qty: 90 3RF Triple Antibiotic 3.5mg-400 unit- 5,000 unit/gram ointment 1 appl topical BID PRN (Reason: cut) Qty: 28.4 0RF Rx Instructions: Apply a thin layer to cut/scrape to skin twice a day as needed. Call provider if no results in 72 hours ondansetron 4 mg tablet,disintegrating 4 mg PO Q6H PRN (Reason: Nausea) Qty: 20 3RF propranolol 20 mg tablet 20 mg PO TID@0800,1600,2000 90 Days Qty: 270 3RF atorvastatin 10 mg tablet 10 mg PO BEDTIME Qty: 90 3RF Dexilant 60 mg capsule,biphase delayed releas 60 mg PO BEDTIME Qty: 90 3RF Pepto-Bismol 262 mg tablet 2 tab PO QID PRN (Reason: diarrhea) 3 Days Qty: 24 0RF metformin 500 mg tablet 500 mg PO BID Qty: 180 3RF (DME) OneTouch Ultra Test Strip See Rx Instructions .Route Qty: 100 11RF Rx Instructions: Test blood sugar 3 times a day as directed cholecalciferol (vitamin D3) 25 mcg (1,000 unit) tablet 25 mcg PO DAILY Qty: 90 3RF hydralazine 50 mg tablet 50 mg PO TID 90 Days Qty: 270 2RF Rx Instructions: dose not listed. unsure of dose miscellaneous medical supply Misc 1 ea miscellaneous DAILY Qty: 1 0RF Rx Instructions: Bilateral AFO cyanocobalamin (vitamin B-12) 1,000 mcg tablet 1,000 mcg PO DAILY@1999 Qty: 90 3RF furosemide [Lasix] 20 mg tablet 20 mg PO Q OTHER DAY Qty: 45 2RF fluticasone propion-salmeterol [Advair Diskus] 250-50 mcg/dose blister with device 1 inh inhalation BID Qty: 60 12RF Ure-Na 15 gram powder in packet 1 packet PO DAILY 30 Days Qty: 8 11RF diphenoxylate-atropine [Lomotil] 2.5-0.025 mg tablet 2 tab PO TID PRN (Reason: Diarrhea) Qty: 60 1RF lactase [Lactaid] 3,000 unit tablet 3,000 unit PO TIDWM Qty: 90 3RF Rx Instructions: Dose confirmed with pharmacy for TID (not QID). Thank you. Citrucel 500 mg tablet 500 mg PO DAILY Qty: 90 3RF Rx Instructions: Take one tablet by mouth daily in the morning. ferrous sulfate 325 mg (65 mg iron) Tablet 325 mg PO BID Qty: 60 4RF lisinopril 20 mg tablet 1 tab PO DAILY 0RF gabapentin 100 mg capsule 200 mg PO BID 0RF risperidone 3 mg tablet 1 tab PO BID 0RF Robitussin Cough-Chest Maury DM 5-100 mg/5 mL liquid 10 ml PO Q4H PRN (Reason: Cough) Qty: 237 0RF albuterol sulfate 90 mcg/actuation HFA aerosol inhaler 2 puff INHALATION Q6H PRN (Reason: Wheezing) Qty: 8.5 0RF fluticasone propionate 50 mcg/actuation spray,suspension 1 spray INTRANASAL BID Qty: 16 11RF alum-mag hydroxide-simeth [Mylanta Maximum Strength] 400-400-40 mg/5 mL suspension 10 ml PO QID PRN (Reason: indigestion) Qty: 200 0RF Interventions: ED Discharge Assessment Last Done: 03/15/22 13:49 Discharge Date/Time: 03/15/22 13:50 Print Language: Maldivian
[2022-03-15 13:47] LABS: COVID-19 Test Negative (Negative)
== END 2022-03-15 13:50 | disposition home or self-care (01) ==
PROVIDERS: Emergency Provider Emergency Medicine Emergency Medical Services; PCP Internal Medicine
DX: F20.9 Schizophrenia, unspecified (principal); I10 Essential (primary) hypertension; E11.9 Type 2 diabetes mellitus without complications; Z79.899 Other long term (current) drug therapy; Z20.822 Contact with and (suspected) exposure to COVID-19
CPT/HCPCS: 87635; 99283

== ENCOUNTER 2022-05-08 17:53 | Emergency (ER) | payer MEDICARE, MEDICAID, SELFPAY ==
--- NOTE | ~2022-05-08 | XR_ITS ---
EXAMINATION: XR SHOULDER, RIGHT CLINICAL INFORMATION: Injury COMPARISON: None TECHNIQUE: Four views of the right shoulder. FINDINGS: The bones and soft tissues are normal. No fracture. Glenohumeral and acromioclavicular alignment is anatomic with normal joint space. No abnormal soft tissue calcifications. XR/XR shoulder RT min 2V IMPRESSION: Normal right shoulder.
[2022-05-08 19:24] VITALS: BP 144/54; PULSE 72; RESP 18; TEMP 36.1; O2SAT 100; BMI 40.7
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
[2022-05-08] MEDS: Acetaminophen 325 MG TABLET 975 MG PO (20:41)
== END 2022-05-08 20:43 | disposition home or self-care (01) ==
PROVIDERS: Emergency Provider Emergency Medicine; PCP Internal Medicine
DX: S46.911A Strain of unspecified muscle, fascia and tendon at shoulder and upper arm level, right arm, initial encounter (principal); W22.8XXA Striking against or struck by other objects, initial encounter; Y93.89 Activity, other specified; Y92.810 Car as the place of occurrence of the external cause; Y99.8 Other external cause status
CPT/HCPCS: 73030; 99283

== ENCOUNTER 2022-05-10 12:38 | Emergency (ER) | payer MEDICARE, MEDICAID, SELFPAY ==
[2022-05-10 12:47] VITALS: BP 156/84; PULSE 94; O2SAT 96; BMI 42.9
--- NOTE | 2022-05-10 12:57 | ED.PSYCH ---
HPI - Psych General Chief Complaint: Psychiatric Symptoms Stated Complaint: crisis Time Seen by Provider: 05/10/22 12:44 Source: patient Mode of arrival: EMS Limitations: no limitations History of Present Illness HPI Narrative: 51-year-old male who presents emergency department for evaluation of auditory hallucinations telling him to hurt himself or others. The patient states that last night he developed burning sensation with urination. He also states that he has been urinating more frequently than usual. He complains of stomach pain and points to his epigastric suprapubic area when asked to localize the pain, the pain is a constant, cramping sensation which is moderate intensity. States that last night he developed nausea and vomited several times. He also states he is feeling dizzy and weak. He was seen at urgent care for his symptoms. He told the urgent care provider that he was having auditory hallucinations that were telling him to hurt himself or to hurt others therefore an ambulance was called is brought to the emergency department for evaluation. The patient was seen in the emergency department on 05/08/2022 (3 days prior) for injury and pain in his right shoulder, x-rays were negative at that time. MD complaint: suicidal ideation and homicidal ideation Onset (ago): hour(s) (2) Duration: constant History of same: Yes Relieving factors: none Exacerbating factors: none Associated psychiatric symptoms: suicidal ideation, homicidal ideation and auditory hallucinations Associated symptoms: headache Related Data Home Medications Medication Instructions Recorded Confirmed gabapentin 100 mg capsule 200 mg PO BID 06/23/21 04/11/22 lisinopril 20 mg tablet 1 tab PO DAILY 06/23/21 04/11/22 risperidone 3 mg tablet 1 tab PO BID 06/23/21 04/11/22 divalproex 500 mg tablet,extended 1,000 mg PO BID 09/28/21 04/11/22 release 24 hr (Depakote ER) fluoride (sodium) 1.1 % dental 1 appl dental BID 09/28/21 04/11/22 paste (PreviDent 5000 Booster Plus) simethicone 125 mg capsule (Gas 125 mg PO TID-QID PRN 09/28/21 04/11/22 Relief (simethicone)) Gastrointestinal Spasms Or Cramping Previous Rx's Medication Instructions Recorded acetaminophen 325 mg tablet 650 mg PO Q4H PRN fever or pain 90 04/27/21 days #180 tabs nut.therapy,urea cycle disordr 15 1 ea PO BID #400 grams 09/28/21 gram-393 kcal/100 gram oral pwdr albuterol sulfate 90 mcg/actuation 2 puff inhalation Q6H PRN Wheezing 10/12/21 aerosol inhaler #8.5 grams dextromethorphan-guaifenesin 5 10 ml PO Q4H PRN Cough #237 mL 10/12/21 mg-100 mg/5 mL oral liquid (Robitussin Cough-Chest Congestion DM) fluticasone propionate 50 1 spray intranasal BID #16 grams 10/12/21 mcg/actuation nasal spray,suspension artifi.tears(hypromellose)(PF) 0.3 1 drp ophthalmic (eye) Q4-6H PRN 10/17/21 % eye drops dry eye(s) #10 mL aspirin 81 mg tablet,delayed 81 mg PO DAILY #90 tabs 10/22/21 release (Ecotrin Low Strength) neomycin-bacitracn Zn-polymyx 3.5 1 appl topical BID PRN cut #28.4 10/22/21 mg-400 unit-5,000 unit/gram top grams oint (Triple Antibiotic) ondansetron 4 mg disintegrating 4 mg PO Q6H PRN Nausea #20 tabs 10/22/21 tablet propranolol 20 mg tablet 20 mg PO TID@0800,1600,2000 90 10/25/21 days #270 tabs atorvastatin 10 mg tablet 10 mg PO BEDTIME #90 tabs 11/20/21 dexlansoprazole 60 mg 60 mg PO BEDTIME #90 caps 11/20/21 capsule,biphase delayed release (Dexilant) bismuth subsalicylate 262 mg 2 tab PO QID PRN diarrhea 3 days 11/28/21 tablet (Pepto-Bismol) #24 tabs metformin 500 mg tablet 500 mg PO BID #180 tabs 12/05/21 blood sugar diagnostic (OneTouch #100 ea 12/17/21 Ultra Test) cholecalciferol (vitamin D3) 25 25 mcg PO DAILY #90 tabs 12/17/21 mcg (1,000 unit) tablet hydralazine 50 mg tablet 50 mg PO TID 90 days #270 tabs 12/17/21 miscellaneous medical supply 1 ea miscellaneous DAILY #1 ea 12/20/21 cyanocobalamin (vitamin B-12) 1,000 mcg PO DAILY@1999 #90 tabs 01/16/22 1,000 mcg tablet aluminum-mag hydroxide-simethicone 10 ml PO QID PRN indigestion #200 02/04/22 400 mg-400 mg-40 mg/5 mL oral susp mL (Mylanta Maximum Strength) furosemide 20 mg tablet (Lasix) 20 mg PO Q OTHER DAY #45 tabs 02/12/22 fluticasone 250 mcg-salmeterol 50 1 inh inhalation BID #60 ea 02/20/22 mcg/dose blistr powdr for inhalation (Advair Diskus) urea 15 gram oral powder packet 1 packet PO DAILY 30 days #8 ea 02/20/22 (Ure-Na) diphenoxylate-atropine 2.5 2 tab PO TID PRN Diarrhea #60 tabs 03/07/22 mg-0.025 mg tablet (Lomotil) lactase 3,000 unit tablet (Lactaid) 3,000 unit PO TIDWM #90 tabs 03/14/22 ferrous sulfate 325 mg (65 mg 325 mg PO BID #60 tabs 04/09/22 iron) tablet methylcellulose (laxative) 500 mg 500 mg PO DAILY #90 tabs 04/22/22 tablet (Citrucel) Allergies Allergy/AdvReac Type Severity Reaction Status Date / Time Sulfa (Sulfonamide Allergy Severe CHAVEZ Verified 04/11/22 14:12 Antibiotics) ALICIA REACTION, Chavez Alicia trimethoprim Allergy Mild UNKNOWN Verified 04/11/22 14:12 lactose AdvReac Mild STOMACH Verified 04/11/22 14:12 UPSET Review of Systems Review of Systems: Yes all other systems are reviewed and are negative PMF Past Medical History Medical History Anemia Anxiety Asthma Cerebellar ataxia Depression Essential hypertension Hyperlipidemia LDL goal <100 Hypertension Hyponatremia Lactose intolerance Mental disability Obesity due to excess calories Peripheral vascular disease Proteinuria Right ankle pain Seizure disorder Type 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 Vertigo Surgical History History of orchiectomy Family History Family History Father Myocardial infarction CVD (cardiovascular disease) Diabetes mellitus Mother Diabetes mellitus HTN (hypertension) Brother In good health Sister In good health Social History Social History Household Members: Other Household Members Other:: from retirement Housing: Other Housing Other:: retirement Do you presently have visiting nurse or other home services: Yes Alcohol intake: never Patient Tobacco Use Status: Never used Tobacco e-Cigarette/Vaping Use: Never Used Second Hand Smoke Exposure: No Advance Directives: No Advance Directives Information Provided: No Advance Directives Date on File: 05/23/21 service: No Current occupational status: disabled Cognitive needs: Yes (walker) Hearing needs: No Vision needs: Yes (glasses) Physical Exam Vital Signs: Vital Signs: Last Vital Signs Temp 97.5 F 05/10/22 13:15 Pulse 81 05/10/22 13:15 Resp 18 05/10/22 13:15 BP 107/77 05/10/22 13:15 Pulse Ox 98 05/10/22 13:15 O2 Del Method 05/10/22 13:15 BMI result Body Mass Index 42.9 Const: Other: Awake, alert, male patient, does not appear to be in distress Orientation/consciousness: oriented to person HEENT: Head: Yes normal to inspection, Yes normocephalic and Yes atraumatic Ears: external ears normal General nose exam: Normal external nose present Face and sinus: Yes normal facial exam Mouth: Normal oral and palatal mucosa present Throat: Yes posterior oropharynx normal Eyes: General: appearance normal, both eyes and all related structures Pupils: Equal, round and reactive pupils present Neck: Neck: Yes normal visual inspection, Yes no lymphadenopathy, Yes trachea midline and Yes supple Chest: Chest palpation & inspection: normal inspection of the chest and normal palpation of entire chest wall Resp: Effort & Inspection: normal respiratory effort and able to speak in complete sentences Auscultation: clear to auscultation bilaterally Cardio: Rate: regular rate Rhythm: regular rhythm Heart sounds: S1 normal heart sound present, S2 normal heart sound present and no murmurs GI: Inspection: Yes normal to inspection Palpation (GI): Soft to palpation, nontender and no guarding Auscultation: normal bowel sounds : General: Yes no CVA tenderness Back/Spine/Pelvis: Back: no CVA tenderness Skin: General skin exam: no rashes or lesions noted Neuro: General: oriented to person Cranial nerves: Yes CN's II-XII intact bilaterally and Yes Equal, round and reactive pupils present Cognition (Neuro): normal cognition Motor exam (neuro): Other motor observations present (Moves all extremities symmetrically) Extrem: General: Yes normal to inspection Psych: Appearance: grossly normal Mental Status: mental status grossly normal Speech and movement: Normal speech and movement present Affect: normal affect Attitude: cooperative Course Course Course Narrative: 51-year-old male who presents emergency department for evaluation of urinary frequency, urgency, dysuria, nausea vomiting and abdominal pain with symptoms beginning last night. Patient was at an urgent care clinic for evaluation when he told the provider that he was having auditory hallucinations telling to harm himself or harm others therefore he was transported to the emergency department for evaluation. The patient was placed in our psychiatric unit. The patient is well-known to this facility. I will get a N consult and check a urinalysis. 1527: Urinalysis was unremarkable. N evaluated the patient and the patient's cleared to go back to his retirement. [facility] - Psych Lab Data Labs: Lab Results 05/10/22 05/10/22 Range/Units 14:02 14:02 Urine Color STRAW Urine Appearance CLEAR Urine pH 6.0 (5.0-8.0) Ur Specific [place] <= 1.005 (1.005-1.025) Urine Protein NEG (NEG-TRACE) MG/DL Urine Glucose (UA) NEG (NEG) MG/DL Urine Ketones NEG (NEG) MG/DL Urine Blood NEG (NEG) Urine Nitrite NEG (NEG) Ur Leukocyte Esterase NEG (NEG) COVID-19 (MICHAELA) Negative (Negative) COVID-19 Clin Com See Note Discharge Plan Discharge Clinical Impression: Dysuria, Auditory hallucination Patient Disposition: Home, Self-Care Instructions: Dysuria (ED) Additional Instructions: Your urinalysis was unremarkable. Your evaluated by our crisis service, RAFFAELE and you your cleared to go back to your retirement. Follow-up with your doctor in 2 days. Please return to the emergency department if your symptoms get worse or if you develop any symptoms that are concerning to you. Prescriptions: No Action acetaminophen 325 mg tablet 650 mg PO Q4H PRN (Reason: fever or pain) 90 Days Qty: 180 2RF fluoride (sodium) [PreviDent 5000 Booster Plus] 1.1 % paste 1 appl dental BID Rx Instructions: [place] with thin ribbon for 2 minutes twice a day (morning and nights) and then spit out divalproex [Depakote ER] 500 mg tablet extended release 24 hr 1,000 mg PO BID Rx Instructions: Take two tabs by mouth twice a day nut.therapy,urea cycle disordr 15 gram-393 kcal/100 gram powder 1 ea PO BID Qty: 400 0RF Rx Instructions: Dissolved one packet of 15 gm into 8 oz of fluids and give by mouth every morning. simethicone [Gas Relief (simethicone)] 125 mg capsule 125 mg PO TID-QID PRN (Reason: Gastrointestinal Spasms Or Cramping) Rx Instructions: Take 1 capsule by mouth up to four times a day as needed for abdominal distension. artifi.tears(hypromellose)(PF) 0.3 % drops 1 drp ophthalmic (eye) Q4-6H PRN (Reason: dry eye(s)) Qty: 10 0RF aspirin [Ecotrin Low Strength] 81 mg tablet,delayed release (DR/EC) 81 mg PO DAILY Qty: 90 3RF Triple Antibiotic 3.5mg-400 unit- 5,000 unit/gram ointment 1 appl topical BID PRN (Reason: cut) Qty: 28.4 0RF Rx Instructions: Apply a thin layer to cut/scrape to skin twice a day as needed. Call provider if no results in 72 hours ondansetron 4 mg tablet,disintegrating 4 mg PO Q6H PRN (Reason: Nausea) Qty: 20 3RF propranolol 20 mg tablet 20 mg PO TID@0800,1600,2000 90 Days Qty: 270 3RF atorvastatin 10 mg tablet 10 mg PO BEDTIME Qty: 90 3RF Dexilant 60 mg capsule,biphase delayed releas 60 mg PO BEDTIME Qty: 90 3RF Pepto-Bismol 262 mg tablet 2 tab PO QID PRN (Reason: diarrhea) 3 Days Qty: 24 0RF metformin 500 mg tablet 500 mg PO BID Qty: 180 3RF (DME) OneTouch Ultra Test Strip See Rx Instructions .Route Qty: 100 11RF Rx Instructions: Test blood sugar 3 times a day as directed cholecalciferol (vitamin D3) 25 mcg (1,000 unit) tablet 25 mcg PO DAILY Qty: 90 3RF hydralazine 50 mg tablet 50 mg PO TID 90 Days Qty: 270 2RF Rx Instructions: dose not listed. unsure of dose miscellaneous medical supply Misc 1 ea miscellaneous DAILY Qty: 1 0RF Rx Instructions: Bilateral AFO cyanocobalamin (vitamin B-12) 1,000 mcg tablet 1,000 mcg PO DAILY@2000 Qty: 90 3RF furosemide [Lasix] 20 mg tablet 20 mg PO Q OTHER DAY Qty: 45 2RF fluticasone propion-salmeterol [Advair Diskus] 250-50 mcg/dose blister with device 1 inh inhalation BID Qty: 60 12RF Ure-Na 15 gram powder in packet 1 packet PO DAILY 30 Days Qty: 8 11RF diphenoxylate-atropine [Lomotil] 2.5-0.025 mg tablet 2 tab PO TID PRN (Reason: Diarrhea) Qty: 60 1RF lactase [Lactaid] 3,000 unit tablet 3,000 unit PO TIDWM Qty: 90 3RF Rx Instructions: Dose confirmed with pharmacy for TID (not QID). Thank you. Citrucel 500 mg tablet 500 mg PO DAILY Qty: 90 3RF Rx Instructions: Take one tablet by mouth daily in the morning. ferrous sulfate 325 mg (65 mg iron) Tablet 325 mg PO BID Qty: 60 4RF lisinopril 20 mg tablet 1 tab PO DAILY gabapentin 100 mg capsule 200 mg PO BID risperidone 3 mg tablet 1 tab PO BID Robitussin Cough-Chest [place] DM 5-100 mg/5 mL liquid 10 ml PO Q4H PRN (Reason: Cough) Qty: 237 0RF albuterol sulfate 90 mcg/actuation HFA aerosol inhaler 2 puff INHALATION Q6H PRN (Reason: Wheezing) Qty: 8.5 0RF fluticasone propionate 50 mcg/actuation spray,suspension 1 spray INTRANASAL BID Qty: 16 11RF alum-mag hydroxide-simeth [Mylanta Maximum Strength] 400-400-40 mg/5 mL suspension 10 ml PO QID PRN (Reason: indigestion) Qty: 200 0RF
[2022-05-10 13:15] VITALS: BP 107/77; PULSE 81; RESP 18; TEMP 36.4; O2SAT 98
--- NOTE | 2022-05-10 14:18 | MHC.CARE ---
CARE Team checks in with pt and reaches out to [facility] in order to gather information on what brings pt to the ED. Pt is well known to [facility]. Per Brenda from pt's [facility] , pt has been trying several approaches to get to the hospital and be admitted. Brenda states that another resident in pt's [facility] was admitted to the hospital for one night, and returned to the [facility] and was describing to pt how wonderful the experience was. She reports that he was seen in ED for shoulder pain, assessed by crisis in the community x2 (dispo was to remain in ), and reporting painful urination. She reports that today pt was brought to urgent care at [facility] for the painful urination and once there reported he could not urinate, so he was sent to the ED. He also reports hearing voices telling him to harm himself or others. Pt has made similar statements many times in the past and per his have never acted on these statements. [facility] feels that they are able to support pt at this time and keep him safe from a mental health standpoint. Plan is for pt to return to the [facility] once he is medically cleared. Per he will needs transportation arranged as they do not have staff to come and pick him up. Brenda identifies a suspicion that part of pt's motivation for wanting to be in the hospital is to be given sweets, as he does not often get these in the [facility] due to his diabetes. Pt does not require referral for further mental health treatment at this time. Recommendations are provided to Dr. Ball.
[2022-05-10 14:40] LABS: Appearance Urine CLEAR; Color Urine STRAW; Glucose Urine UA NEG (NEG); Leukocyte Esterase Urine NEG (NEG); Nitrite Urine NEG (NEG); Specific Gravity - Urine <= 1.005 (1.005-1.025); Urine Blood NEG (NEG); Urine Ketones NEG (NEG); Urine Protein NEG (NEG-TRACE)
[2022-05-10 14:53] LABS: COVID-19 Test Negative (Negative)
--- NOTE | 2022-05-10 16:07 | PC.NURSE ---
This RN contacted skilled nursing requesting transport for pt due to patient being posted for discharge. Staff requests transport home to be provided.
[2022-05-10 16:25] VITALS: BP 150/68; PULSE 77; RESP 16; TEMP 36.6; O2SAT 99
[2022-05-10 16:35] LABS: Amphetamine Screen Urine Not Detected (Not Detect); Barbiturates, Urine Not Detected (Not Detect); Benzodiazepines Screen Urine Not Detected (Not Detect); Cannabinoid Screen Urine Not Detected (Not Detect); Cocaine Screen Urine Not Detected (Not Detect); Fentanyl, urine Not Detected (Not Detect); Opiate Screen Urine Not Detected (Not Detect); Phencyclidine Screen Urine Not Detected (Not Detect)
--- NOTE | 2022-05-10 16:39 | MHC.CM.ED ---
CM called patient's care home for transportation home. Pt has been discharged. skilled nursing is sending staff to [facility] [place]. CM to follow for d/c needs.
== END 2022-05-10 17:22 | disposition home or self-care (01) ==
PROVIDERS: Emergency Provider Emergency Medicine Emergency Medical Services; PCP Internal Medicine
DX: R44.0 Auditory hallucinations (principal); R45.851 Suicidal ideations; R45.850 Homicidal ideations; R30.0 Dysuria; R51.9 Headache, unspecified; Z79.899 Other long term (current) drug therapy; Z20.822 Contact with and (suspected) exposure to COVID-19
CPT/HCPCS: 51798; 80307; 81003; 87635; 99283

== ENCOUNTER → 2022-05-22 14:28 | Outpatient (BNVA) | payer MEDICARE, MEDICAID, SELFPAY | PROVIDERS: PCP Internal Medicine; Referring Provider Internal Medicine; Visit Provider Nurse Practitioner Family | DX: R19.5 Other fecal abnormalities (principal); R10.9 Unspecified abdominal pain; R19.7 Diarrhea, unspecified | CPT/HCPCS: 99212 ==

== ENCOUNTER 2022-06-03 11:25 | Emergency (ER) | payer MEDICARE, MEDICAID, SELFPAY ==
--- NOTE | ~2022-06-03 | XR_ITS ---
EXAMINATION: XR FOOT, LEFT CLINICAL INFORMATION: Left foot injury/pain. COMPARISON: None TECHNIQUE: AP, lateral, and oblique views of the left foot. FINDINGS: Severe soft tissue swelling is seen. There is no overt fracture or dislocation. The joint spaces are unremarkable. The tarsal bones are normally aligned. XR/XR foot LT 2V IMPRESSION: Severe soft tissue swelling without overt acute underlying osseous abnormality.
--- NOTE | ~2022-06-03 | XR_ITS ---
EXAMINATION: XR ANKLE, LEFT CLINICAL INFORMATION: Pain COMPARISON: Left ankle 12/01/2020 and 05/27/2014 TECHNIQUE: AP, lateral, and mortise views of the left ankle. FINDINGS: There is a bimalleolar and distal lower leg soft tissue swelling. There is a thickening of lateral tibial cortex. It measures 3.3 cm in craniocaudad length. Previously it measured approximately same size 3 cm on 12/01/2020. The ankle mortise and subtalar joint is normal. There is small lateral malleolar cortical suppression suspicious 6 evolution. XR/XR ankle LT min 3V IMPRESSION: Suspect avulsion fracture lateral distal malleolus. Bimalleolar ankle soft tissue swelling Left lateral distal tibial cortical sclerotic lesion measuring 3.3 cm. Last exam it measured 3 cm. Differential includes slow-growing cortical lesion such as parosteal osteosarcoma, giant osteoma ossifying fibroma or enchondroma. Recommend correlation with MRI for better characterization
[2022-06-03 11:43] VITALS: BP 119/73; PULSE 92; RESP 18; TEMP 37; O2SAT 96; BMI 41.9
--- NOTE | 2022-06-03 15:49 | ED_ITS ---
HPI - Extremity Injury (Lower) General Chief Complaint: Extremity Injury, Lower Stated Complaint: L ankle/foot swelling Time Seen by Provider: 06/03/22 13:47 Source: patient Mode of arrival: wheelchair Limitations: no limitations History of Present Illness HPI Narrative: 51-year-old male who lives in a retirement and has a past medical history of schizophrenia, mental developmental delay with behavioral issues, cerebral ataxia, seizure disorder, vertigo, obesity, hypertension, hyperlipidemia, PVD, diabetes, anemia, recent falls and chronic hyponatremia presenting to the ED With complaints of left ankle pain. Patient tells me 1 week ago he was getting out of his recliner in his recliner fell on top of his left ankle. Since then he has been having pain, swelling and difficulty with weight-bearing. Denies any numbness, tingling, weakness of the extremity. No fevers or chills. Related Data Home Medications Medication Instructions Recorded Confirmed gabapentin 100 mg capsule 200 mg PO BID 06/23/21 05/15/22 lisinopril 20 mg tablet 1 tab PO DAILY 06/23/21 05/15/22 risperidone 3 mg tablet 1 tab PO BID 06/23/21 05/15/22 divalproex 500 mg tablet,extended 1,000 mg PO BID 09/28/21 05/15/22 release 24 hr (Depakote ER) fluoride (sodium) 1.1 % dental 1 appl dental BID 09/28/21 05/15/22 paste (PreviDent 5000 Booster Plus) simethicone 125 mg capsule (Gas 125 mg PO TID-QID PRN 09/28/21 05/15/22 Relief (simethicone)) Gastrointestinal Spasms Or Cramping Previous Rx's Medication Instructions Recorded acetaminophen 325 mg tablet 650 mg PO Q4H PRN fever or pain 90 04/27/21 days #180 tabs nut.therapy,urea cycle disordr 15 1 ea PO BID #400 grams 09/28/21 gram-393 kcal/100 gram oral pwdr albuterol sulfate 90 mcg/actuation 2 puff inhalation Q6H PRN Wheezing 10/12/21 aerosol inhaler #8.5 grams dextromethorphan-guaifenesin 5 10 ml PO Q4H PRN Cough #237 mL 10/12/21 mg-100 mg/5 mL oral liquid (Robitussin Cough-Chest Congestion DM) fluticasone propionate 50 1 spray intranasal BID #16 grams 10/12/21 mcg/actuation nasal spray,suspension artifi.tears(hypromellose)(PF) 0.3 1 drp ophthalmic (eye) Q4-6H PRN 10/17/21 % eye drops dry eye(s) #10 mL neomycin-bacitracn Zn-polymyx 3.5 1 appl topical BID PRN cut #28.4 10/22/21 mg-400 unit-5,000 unit/gram top grams oint (Triple Antibiotic) ondansetron 4 mg disintegrating 4 mg PO Q6H PRN Nausea #20 tabs 10/22/21 tablet propranolol 20 mg tablet 20 mg PO TID@0800,1600,1999 90 10/25/21 days #270 tabs atorvastatin 10 mg tablet 10 mg PO BEDTIME #90 tabs 11/20/21 dexlansoprazole 60 mg 60 mg PO BEDTIME #90 caps 11/20/21 capsule,biphase delayed release (Dexilant) bismuth subsalicylate 262 mg 2 tab PO QID PRN diarrhea 3 days 11/28/21 tablet (Pepto-Bismol) #24 tabs metformin 500 mg tablet 500 mg PO BID #180 tabs 12/05/21 blood sugar diagnostic (OneTouch #100 ea 12/17/21 Ultra Test strips) cholecalciferol (vitamin D3) 25 25 mcg PO DAILY #90 tabs 12/17/21 mcg (1,000 unit) tablet hydralazine 50 mg tablet 50 mg PO TID 90 days #270 tabs 12/17/21 miscellaneous medical supply 1 ea miscellaneous DAILY #1 ea 12/20/21 cyanocobalamin (vitamin B-12) 1,000 mcg PO DAILY@1999 #90 tabs 01/16/22 1,000 mcg tablet aluminum-mag hydroxide-simethicone 10 ml PO QID PRN indigestion #200 02/04/22 400 mg-400 mg-40 mg/5 mL oral susp mL (Mylanta Maximum Strength) furosemide 20 mg tablet (Lasix) 20 mg PO Q OTHER DAY #45 tabs 02/12/22 fluticasone 250 mcg-salmeterol 50 1 inh inhalation BID #60 ea 02/20/22 mcg/dose blistr powdr for inhalation (Advair Diskus) urea 15 gram oral powder packet 1 packet PO DAILY 30 days #8 ea 02/20/22 (Ure-Na) diphenoxylate-atropine 2.5 2 tab PO TID PRN Diarrhea #60 tabs 03/07/22 mg-0.025 mg tablet (Lomotil) lactase 3,000 unit tablet (Lactaid) 3,000 unit PO TIDWM #90 tabs 03/14/22 ferrous sulfate 325 mg (65 mg 325 mg PO BID #60 tabs 04/09/22 iron) tablet bisacodyl 5 mg tablet 10 mg PO BEDTIME #14 tabs 05/22/22 magnesium citrate 296 ml PO ONCE #296 mL 05/22/22 methylcellulose (laxative) 500 mg 500 mg PO DAILY #90 tabs 05/22/22 tablet (Citrucel) Allergies Allergy/AdvReac Type Severity Reaction Status Date / Time Sulfa (Sulfonamide Allergy Severe LANDEROS Verified 05/22/22 14:35 Antibiotics) ALICIA REACTION, Landeros Alicia trimethoprim Allergy Mild UNKNOWN Verified 05/22/22 14:35 lactose AdvReac Mild STOMACH Verified 05/22/22 14:35 UPSET Review of Systems Review of Systems: Yes all other systems are reviewed and are negative Constitutional: Constitutional: Reports no additional constitutional complaints, Denies body ache(s), Denies chills, Denies fever(s), Denies headache(s) and Denies weakness Eyes: Eyes: Reports no additional eye complaints and Denies change in vision ENT: Reports system reviewed and no additional complaints, except as documented, Denies dizziness, Denies headache(s), Denies nasal congestion, Denies nasal discharge and Denies neck pain Cardiovascular: Cardiovascular: Reports no additional cardiovascular complaints, Denies chest pain, Denies leg edema and Denies dyspnea Respiratory: Respiratory: Reports no additional respiratory complaints, Denies cough and Denies dyspnea Gastrointestinal: Gastrointestinal: Reports no additional gastrointestinal complaints, Denies abdominal pain, Denies diarrhea, Denies nausea and Denies vomiting Genitourinary: Genitourinary: Denies urinary incontinence Musculoskeletal: Musculoskeletal: Reports no additional musculoskeletal complaints, Denies back pain, Reports arthralgias, Reports joint swelling, Reports limited range of motion, Denies neck pain, Denies numbness and Denies tingling Integumentary/Breasts: Skin/Breast: Reports system reviewed and no additional complaints, except as docu and Denies rash Neurologic: Reports system reviewed and no additional complaints, except as documented, Denies Abnormal speech present, Denies dizziness, Denies headache(s), Denies numbness, Denies tingling and Denies weakness PMFSH Past Medical History Attestation statement: The following information was validated with the patient. Source: old records reviewed and nursing notes reviewed Medical History Anemia Anxiety Asthma Cerebellar ataxia Depression Essential hypertension Hyperlipidemia LDL goal <100 Hypertension Hyponatremia Lactose intolerance Mental disability Obesity due to excess calories Peripheral vascular disease Proteinuria Right ankle pain Seizure disorder Type 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 Vertigo Surgical History History of orchiectomy Family History Family History Father Myocardial infarction CVD (cardiovascular disease) Diabetes mellitus Mother Diabetes mellitus HTN (hypertension) Brother In good health Sister In good health Social History Social History Household Members: Other Household Members Other:: from retirement Housing: Other Housing Other:: retirement Do you presently have visiting nurse or other home services: Yes Alcohol intake: never Patient Tobacco Use Status: Never used Tobacco e-Cigarette/Vaping Use: Never Used Second Hand Smoke Exposure: No Advance Directives: Yes Advance Directives Information Provided: Yes Advance Directives on File: No Advance Directives Date on File: 05/23/21 service: No Current occupational status: disabled Cognitive needs: Yes (walker) Hearing needs: No Vision needs: Yes (glasses) Physical Exam Vital Signs: Vital Signs: Last Vital Signs Temp 98.6 F 06/03/22 11:43 Pulse 92 06/03/22 11:43 Resp 18 06/03/22 11:43 BP 119/73 06/03/22 11:43 Pulse Ox 96 06/03/22 11:43 O2 Del Method 06/03/22 11:43 BMI result Body Mass Index 41.9 Const: General: cooperative, healthy appearing, comfortable and no acute distress Orientation/consciousness: patient oriented x3 Limitations: no limitations HEENT: Head: Yes normal to inspection Ears: hearing grossly normal bilaterally General nose exam: Normal external nose present Face and sinus: Yes normal facial exam Mouth: Normal oral and palatal mucosa present Throat: Yes posterior oropharynx normal Eyes: General: appearance normal, both eyes and all related structures Pupils: Equal, round and reactive pupils present Neck: Neck: Yes normal visual inspection Chest: Chest palpation & inspection: normal inspection of the chest Resp: Effort & Inspection: normal respiratory effort Auscultation: clear to auscultation bilaterally Cardio: Rate: regular rate Rhythm: regular rhythm Peripheral pulses: Peripheral pulses 2+ throughout GI: Inspection: Yes normal to inspection Palpation (GI): Soft to palpation and nontender Auscultation: normal bowel sounds Back/Spine/Pelvis: Thoracic/Lumbar Spine: thoracic and lumbar spine normal to inspection Skin: General skin exam: no rashes or lesions noted Neuro: General: patient oriented x3, no focal motor deficits and normal sensation to monofilament Cranial nerves: Yes Equal, round and reactive pupils present Cognition (Neuro): normal cognition Speech: No Abnormal speech present Gait exam (Neuro): Normal gait present Motor exam (neuro): 5/5 motor strength present throughout Extrem: Other: There is some swelling and tenderness to the lateral left ankle. Limited r joanna of motion due to pain. Neurovascular intact distally. Palpable DP and PT pulses no.jl . Sensation is intact. General: Yes normal to inspection Course Course Course Narrative: x-ray show IMPRESSION: Suspect avulsion fracture lateral distal malleolus. Bimalleolar ankle soft tissue swelling ? Left lateral distal tibial cortical sclerotic lesion measuring 3.3 cm. Last exam it measured 3 cm. Differential includes slow-growing cortical lesion such as parosteal osteosarcoma, giant osteoma ossifying fibroma or enchondroma. Recommend correlation with MRI for better characterization - patient and retirement staff were informed of this result. Patient placed in a walking boot. He can follow-up with orthopedics for further evaluation and additional testing as needed. Reviewed worrisome signs symptoms of when to return to the emergency department. Comfortable discharge home. MDM - Extremity Injury (Lower) MDM Narrative Medical decision making narrative: 51-year-old male coming from retirement with reports of left ankle pain after an injury which occurred 1 week ago. Will obtain x-rays Differential Diagnosis Differential diagnosis: Likely ankle sprain and strain and ankle fracture Medical Records Attestation: I reviewed the patient's medical records. Lab Data Attestation: I reviewed the patient's lab results. Imaging Data ankle xray: Attestation: I personally reviewed and interpreted this imaging study as follows: Radiologist's impression: IMPRESSION: Suspect avulsion fracture lateral distal malleolus. Bimalleolar ankle soft tissue swelling ? Left lateral distal tibial cortical sclerotic lesion measuring 3.3 cm. Last exam it measured 3 cm. Differential includes slow-growing cortical lesion such as parosteal osteosarcoma, giant osteoma ossifying fibroma or enchondroma. Recommend correlation with MRI for better characterization Procedures Procedure Narrative Procedure Narrative: Ortho walking boot Discharge Plan Discharge Clinical Impression: Avulsion fracture of lateral malleolus, Bone lesion Patient Disposition: Home, Self-Care Instructions: Ankle Fracture (ED) Additional Instructions: the x-ray shows a possible avulsion fracture over the lateral malleolus. we will give you a boot for ambulation it also shows a lesion in the ankle on the bone. This was seen on a previous x-ray however it does appear larger. We are referring you to orthopedics to follow-up as you may need additional imaging of the ankle such as an MRI Prescriptions: No Action acetaminophen 325 mg tablet 650 mg PO Q4H PRN (Reason: fever or pain) 90 Days Qty: 180 2RF fluoride (sodium) [PreviDent 5000 Booster Plus] 1.1 % paste 1 appl dental BID Rx Instructions: [place] with thin ribbon for 2 minutes twice a day (morning and nights) and then spit out divalproex [Depakote ER] 500 mg tablet extended release 24 hr 1,000 mg PO BID Rx Instructions: Take two tabs by mouth twice a day nut.therapy,urea cycle disordr 15 gram-393 kcal/100 gram powder 1 ea PO BID Qty: 400 0RF Rx Instructions: Dissolved one packet of 15 gm into 8 oz of fluids and give by mouth every morning. simethicone [Gas Relief (simethicone)] 125 mg capsule 125 mg PO TID-QID PRN (Reason: Gastrointestinal Spasms Or Cramping) Rx Instructions: Take 1 capsule by mouth up to four times a day as needed for abdominal distension. artifi.tears(hypromellose)(PF) 0.3 % drops 1 drp ophthalmic (eye) Q4-6H PRN (Reason: dry eye(s)) Qty: 10 0RF Triple Antibiotic 3.5mg-400 unit- 5,000 unit/gram ointment 1 appl topical BID PRN (Reason: cut) Qty: 28.4 0RF Rx Instructions: Apply a thin layer to cut/scrape to skin twice a day as needed. Call provider if no results in 72 hours ondansetron 4 mg tablet,disintegrating 4 mg PO Q6H PRN (Reason: Nausea) Qty: 20 3RF propranolol 20 mg tablet 20 mg PO TID@0800,1600,2000 90 Days Qty: 270 3RF atorvastatin 10 mg tablet 10 mg PO BEDTIME Qty: 90 3RF Dexilant 60 mg capsule,biphase delayed releas 60 mg PO BEDTIME Qty: 90 3RF Pepto-Bismol 262 mg tablet 2 tab PO QID PRN (Reason: diarrhea) 3 Days Qty: 24 0RF metformin 500 mg tablet 500 mg PO BID Qty: 180 3RF (DME) OneTouch Ultra Test Strip See Rx Instructions .Route Qty: 100 11RF Rx Instructions: Test blood sugar 3 times a day as directed cholecalciferol (vitamin D3) 25 mcg (1,000 unit) tablet 25 mcg PO DAILY Qty: 90 3RF hydralazine 50 mg tablet 50 mg PO TID 90 Days Qty: 270 2RF Rx Instructions: dose not listed. unsure of dose miscellaneous medical supply Misc 1 ea miscellaneous DAILY Qty: 1 0RF Rx Instructions: Bilateral AFO cyanocobalamin (vitamin B-12) 1,000 mcg tablet 1,000 mcg PO DAILY@2000 Qty: 90 3RF furosemide [Lasix] 20 mg tablet 20 mg PO Q OTHER DAY Qty: 45 2RF fluticasone propion-salmeterol [Advair Diskus] 250-50 mcg/dose blister with device 1 inh inhalation BID Qty: 60 12RF Ure-Na 15 gram powder in packet 1 packet PO DAILY 30 Days Qty: 8 11RF diphenoxylate-atropine [Lomotil] 2.5-0.025 mg tablet 2 tab PO TID PRN (Reason: Diarrhea) Qty: 60 1RF lactase [Lactaid] 3,000 unit tablet 3,000 unit PO TIDWM Qty: 90 3RF Rx Instructions: Dose confirmed with pharmacy for TID (not QID). Thank you. ferrous sulfate 325 mg (65 mg iron) Tablet 325 mg PO BID Qty: 60 4RF lisinopril 20 mg tablet 1 tab PO DAILY gabapentin 100 mg capsule 200 mg PO BID risperidone 3 mg tablet 1 tab PO BID Robitussin Cough-Chest Maury DM 5-100 mg/5 mL liquid 10 ml PO Q4H PRN (Reason: Cough) Qty: 237 0RF albuterol sulfate 90 mcg/actuation HFA aerosol inhaler 2 puff INHALATION Q6H PRN (Reason: Wheezing) Qty: 8.5 0RF fluticasone propionate 50 mcg/actuation spray,suspension 1 spray INTRANASAL BID Qty: 16 11RF alum-mag hydroxide-simeth [Mylanta Maximum Strength] 400-400-40 mg/5 mL suspension 10 ml PO QID PRN (Reason: indigestion) Qty: 200 0RF magnesium citrate Solution 296 ml PO ONCE Qty: 296 0RF Rx Instructions: Traci la botella entera la noche anterior a de guzman procedimiento bisacodyl 5 mg tablet 10 mg PO BEDTIME Qty: 14 0RF Rx Instructions: [place] 2 tabletas cada noche comenzando 7 vázquez antes del procedimiento Citrucel 500 mg tablet 500 mg PO DAILY Qty: 90 3RF Rx Instructions: Take one tablet by mouth daily in the morning. Referrals: [facility] [place] [facility] [Provider Group] - 10 days
== END 2022-06-03 16:41 | disposition home or self-care (01) ==
PROVIDERS: Emergency Provider Emergency Medicine; PCP Internal Medicine
DX: S82.62XA Displaced fracture of lateral malleolus of left fibula, initial encounter for closed fracture (principal); F20.9 Schizophrenia, unspecified; M25.572 Pain in left ankle and joints of left foot; W19.XXXA Unspecified fall, initial encounter; Y93.9 Activity, unspecified; Y92.9 Unspecified place or not applicable; Y99.9 Unspecified external cause status; Z79.899 Other long term (current) drug therapy
CPT/HCPCS: 73610; 73620; 99283

== ENCOUNTER → 2022-06-17 10:53 | Outpatient (BNVA) | payer MEDICARE, MEDICAID, SELFPAY | PROVIDERS: PCP Internal Medicine; Visit Provider Physician Assistant | DX: S90.02XA Contusion of left ankle, initial encounter (principal) | CPT/HCPCS: 99212 ==

== ENCOUNTER 2022-06-27 23:06 | Emergency (ER) | payer MEDICARE, MEDICAID, SELFPAY ==
[2022-06-27 23:13] VITALS: BMI 41.5
--- NOTE | 2022-06-27 23:17 | ED_ITS ---
HPI - Psych General Chief Complaint: Psychiatric Symptoms Stated Complaint: FLU SYMPTOMS/SI Time Seen by Provider: 06/27/22 23:17 Source: patient and EMS Mode of arrival: EMS Limitations: no limitations History of Present Illness HPI Narrative: Patient comes to the emergency room from a [place] [facility] via EMS. Patient states that he is feeling suicidal, no plan. Also complaining of feeling nauseous. No vomiting or diarrhea, no abdominal pain. Related Data Home Medications Medication Instructions Recorded Confirmed gabapentin 100 mg capsule 200 mg PO BID 06/23/21 05/15/22 lisinopril 20 mg tablet 1 tab PO DAILY 06/23/21 05/15/22 risperidone 3 mg tablet 1 tab PO BID 06/23/21 05/15/22 divalproex 500 mg tablet,extended 1,000 mg PO BID 09/28/21 05/15/22 release 24 hr (Depakote ER) fluoride (sodium) 1.1 % dental 1 appl dental BID 09/28/21 05/15/22 paste (PreviDent 5000 Booster Plus) simethicone 125 mg capsule (Gas 125 mg PO TID-QID PRN 09/28/21 05/15/22 Relief (simethicone)) Gastrointestinal Spasms Or Cramping Previous Rx's Medication Instructions Recorded nut.therapy,urea cycle disordr 15 1 ea PO BID #400 grams 09/28/21 gram-393 kcal/100 gram oral pwdr albuterol sulfate 90 mcg/actuation 2 puff inhalation Q6H PRN Wheezing 10/12/21 aerosol inhaler #8.5 grams dextromethorphan-guaifenesin 5 10 ml PO Q4H PRN Cough #237 mL 10/12/21 mg-100 mg/5 mL oral liquid (Robitussin Cough-Chest Congestion DM) fluticasone propionate 50 1 spray intranasal BID #16 grams 10/12/21 mcg/actuation nasal spray,suspension artifi.tears(hypromellose)(PF) 0.3 1 drp ophthalmic (eye) Q4-6H PRN 10/17/21 % eye drops dry eye(s) #10 mL neomycin-bacitracn Zn-polymyx 3.5 1 appl topical BID PRN cut #28.4 10/22/21 mg-400 unit-5,000 unit/gram top grams oint (Triple Antibiotic) ondansetron 4 mg disintegrating 4 mg PO Q6H PRN Nausea #20 tabs 10/22/21 tablet propranolol 20 mg tablet 20 mg PO TID@0800,1600,2000 90 10/25/21 days #270 tabs atorvastatin 10 mg tablet 10 mg PO BEDTIME #90 tabs 11/20/21 dexlansoprazole 60 mg 60 mg PO BEDTIME #90 caps 11/20/21 capsule,biphase delayed release (Dexilant) bismuth subsalicylate 262 mg 2 tab PO QID PRN diarrhea 3 days 11/28/21 tablet (Pepto-Bismol) #24 tabs metformin 500 mg tablet 500 mg PO BID #180 tabs 12/05/21 blood sugar diagnostic (OneTouch #100 ea 12/17/21 Ultra Test strips) cholecalciferol (vitamin D3) 25 25 mcg PO DAILY #90 tabs 12/17/21 mcg (1,000 unit) tablet hydralazine 50 mg tablet 50 mg PO TID 90 days #270 tabs 12/17/21 miscellaneous medical supply 1 ea miscellaneous DAILY #1 ea 12/20/21 cyanocobalamin (vitamin B-12) 1,000 mcg PO DAILY@1999 #90 tabs 01/16/22 1,000 mcg tablet aluminum-mag hydroxide-simethicone 10 ml PO QID PRN indigestion #200 02/04/22 400 mg-400 mg-40 mg/5 mL oral susp mL (Mylanta Maximum Strength) furosemide 20 mg tablet (Lasix) 20 mg PO Q OTHER DAY #45 tabs 02/12/22 fluticasone 250 mcg-salmeterol 50 1 inh inhalation BID #60 ea 02/20/22 mcg/dose blistr powdr for inhalation (Advair Diskus) urea 15 gram oral powder packet 1 packet PO DAILY 30 days #8 ea 02/20/22 (Ure-Na) diphenoxylate-atropine 2.5 2 tab PO TID PRN Diarrhea #60 tabs 03/07/22 mg-0.025 mg tablet (Lomotil) lactase 3,000 unit tablet (Lactaid) 3,000 unit PO TIDWM #90 tabs 03/14/22 ferrous sulfate 325 mg (65 mg 325 mg PO BID #60 tabs 04/09/22 iron) tablet bisacodyl 5 mg tablet 10 mg PO BEDTIME #14 tabs 05/22/22 magnesium citrate 296 ml PO ONCE #296 mL 05/22/22 methylcellulose (laxative) 500 mg 500 mg PO DAILY #90 tabs 05/22/22 tablet (Citrucel) acetaminophen 325 mg tablet 650 mg PO Q4H PRN fever or pain 90 06/11/22 days #180 tabs Allergies Allergy/AdvReac Type Severity Reaction Status Date / Time Sulfa (Sulfonamide Allergy Severe LANDEROS Verified 06/17/22 11:17 Antibiotics) ALICIA REACTION, Landeros Alicia trimethoprim Allergy Mild UNKNOWN Verified 06/17/22 11:17 lactose AdvReac Mild STOMACH Verified 06/17/22 11:17 UPSET Review of Systems Review of Systems: Constitutional : No Weight loss, No Fever, No Chills, No Night Sweats, No Fatigue, No Malaise ENT/Mouth : No Hearing loss, No Ear Pain, No Nasal Congestion, No Sinus Pain, No Hoarseness, No sore throat, No Rhinorrhea, No Swallowing Difficulty Eyes: No Eye Pain, No Swelling, No Redness, No Foreign Body, No Discharge, No Vision Changes Cardiovascular : No Chest Pain, No SOB, No Dyspnea on Exertion, No Orthopnea, No Edema, No Palpitations Respiratory : No Cough, No Sputum, No Wheezing, No Smoke Exposure, No Dyspnea Gastrointestinal : Complaining of Nausea, No Vomiting, No Diarrhea, No Constipation, No abdominal Pain, No Hematochezia, No Melena Genitourinary : no irregular bleeding, No Dysuria, No Urinary Frequency, No Hematuria, No Urinary Incontinence, No Urgency, No Flank Pain, No Urinary Flow Changes, No Hesitancy Musculoskeletal : No joint pain, No Myalgias, No Joint Swelling Skin : No Skin Lesions, No rash Neuro : No Weakness, No Numbness, No Paresthesias, No Loss of Consciousness, No Dizziness, No Headache Psych : No Anxiety/Panic, No Depression, complaining of SI, no HI Heme/Lymph: No Bruising, No Bleeding,No Lymphadenopathy Endocrine : No Polyuria, No Polydipsia, No Temperature Intolerance PMFSH Past Medical History Medical History Anemia Anxiety Asthma Cerebellar ataxia Depression Essential hypertension Hyperlipidemia LDL goal <100 Hypertension Hyponatremia Lactose intolerance Mental disability Obesity due to excess calories Peripheral vascular disease Proteinuria Right ankle pain Seizure disorder Type 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 Vertigo Surgical History History of orchiectomy Family History Family History Father Myocardial infarction CVD (cardiovascular disease) Diabetes mellitus Mother Diabetes mellitus HTN (hypertension) Brother In good health Sister In good health Social History Social History Household Members: Other Household Members Other:: [facility] Housing: Other Housing Other:: [facility] Do you presently have visiting nurse or other home services: Yes Alcohol intake: never Patient Tobacco Use Status: Never used Tobacco e-Cigarette/Vaping Use: Never Used Second Hand Smoke Exposure: No Advance Directives Date on File: 05/23/21 service: No Current occupational status: disabled Cognitive needs: Yes (walker) Hearing needs: No Vision needs: Yes (glasses) Physical Exam Const: Other: Appearance: Alert. Oriented X3. No acute distress. Disheveled Eyes: Pupils equal, round and reactive to light. ENT: Pharynx normal. Neck: Normal inspection. Neck supple. No lymph nodes noted. No crepitus CVS: Normal heart rate and rhythm. Pulses normal. Normal S1 and S2 Respiratory: No respiratory distress. Breath sounds normal. No Wheezing. No rales Abdomen: Soft and nontender. No rigidity. No distention. Skin: Skin warm and dry. Normal skin color. Normal skin turgor. Extremities: No lower extremity edema. No Lacerations. No Rash Neuro: Oriented X 3. No motor deficit. No sensory deficit. Moving all extremities. No slurred speech. CN 2 through 12 grossly intact Psych: calm, cooperative, normal affect Course Course Course Narrative: Patient has not had labs in several months, we will go ahead and obtain baseline labs. COVID test. Physician observation started at 23:20 Discharge Plan Discharge Clinical Impression: Suicidal ideations Patient Disposition: Still a Patient Prescriptions: No Action fluoride (sodium) [PreviDent 5000 Booster Plus] 1.1 % paste 1 appl dental BID Rx Instructions: [place] with thin ribbon for 2 minutes twice a day (morning and nights) and then spit out divalproex [Depakote ER] 500 mg tablet extended release 24 hr 1,000 mg PO BID Rx Instructions: Take two tabs by mouth twice a day nut.therapy,urea cycle disordr 15 gram-393 kcal/100 gram powder 1 ea PO BID Qty: 400 0RF Rx Instructions: Dissolved one packet of 15 gm into 8 oz of fluids and give by mouth every morning. simethicone [Gas Relief (simethicone)] 125 mg capsule 125 mg PO TID-QID PRN (Reason: Gastrointestinal Spasms Or Cramping) Rx Instructions: Take 1 capsule by mouth up to four times a day as needed for abdominal distension. artifi.tears(hypromellose)(PF) 0.3 % drops 1 drp ophthalmic (eye) Q4-6H PRN (Reason: dry eye(s)) Qty: 10 0RF Triple Antibiotic 3.5mg-400 unit- 5,000 unit/gram ointment 1 appl topical BID PRN (Reason: cut) Qty: 28.4 0RF Rx Instructions: Apply a thin layer to cut/scrape to skin twice a day as needed. Call provider if no results in 72 hours ondansetron 4 mg tablet,disintegrating 4 mg PO Q6H PRN (Reason: Nausea) Qty: 20 3RF propranolol 20 mg tablet 20 mg PO TID@0800,1600,2000 90 Days Qty: 270 3RF atorvastatin 10 mg tablet 10 mg PO BEDTIME Qty: 90 3RF Dexilant 60 mg capsule,biphase delayed releas 60 mg PO BEDTIME Qty: 90 3RF Pepto-Bismol 262 mg tablet 2 tab PO QID PRN (Reason: diarrhea) 3 Days Qty: 24 0RF metformin 500 mg tablet 500 mg PO BID Qty: 180 3RF (DME) OneTouch Ultra Test Strip See Rx Instructions .Route Qty: 100 11RF Rx Instructions: Test blood sugar 3 times a day as directed cholecalciferol (vitamin D3) 25 mcg (1,000 unit) tablet 25 mcg PO DAILY Qty: 90 3RF hydralazine 50 mg tablet 50 mg PO TID 90 Days Qty: 270 2RF Rx Instructions: dose not listed. unsure of dose miscellaneous medical supply Misc 1 ea miscellaneous DAILY Qty: 1 0RF Rx Instructions: Bilateral AFO cyanocobalamin (vitamin B-12) 1,000 mcg tablet 1,000 mcg PO DAILY@2000 Qty: 90 3RF furosemide [Lasix] 20 mg tablet 20 mg PO Q OTHER DAY Qty: 45 2RF fluticasone propion-salmeterol [Advair Diskus] 250-50 mcg/dose blister with device 1 inh inhalation BID Qty: 60 12RF Ure-Na 15 gram powder in packet 1 packet PO DAILY 30 Days Qty: 8 11RF diphenoxylate-atropine [Lomotil] 2.5-0.025 mg tablet 2 tab PO TID PRN (Reason: Diarrhea) Qty: 60 1RF lactase [Lactaid] 3,000 unit tablet 3,000 unit PO TIDWM Qty: 90 3RF Rx Instructions: Dose confirmed with pharmacy for TID (not QID). Thank you. acetaminophen 325 mg tablet 650 mg PO Q4H PRN (Reason: fever or pain) 90 Days Qty: 180 2RF ferrous sulfate 325 mg (65 mg iron) Tablet 325 mg PO BID Qty: 60 4RF lisinopril 20 mg tablet 1 tab PO DAILY gabapentin 100 mg capsule 200 mg PO BID risperidone 3 mg tablet 1 tab PO BID Robitussin Cough-Chest [place] DM 5-100 mg/5 mL liquid 10 ml PO Q4H PRN (Reason: Cough) Qty: 237 0RF albuterol sulfate 90 mcg/actuation HFA aerosol inhaler 2 puff INHALATION Q6H PRN (Reason: Wheezing) Qty: 8.5 0RF fluticasone propionate 50 mcg/actuation spray,suspension 1 spray INTRANASAL BID Qty: 16 11RF alum-mag hydroxide-simeth [Mylanta Maximum Strength] 400-400-40 mg/5 mL suspension 10 ml PO QID PRN (Reason: indigestion) Qty: 200 0RF magnesium citrate Solution 296 ml PO ONCE Qty: 296 0RF Rx Instructions: Traci la botella entera la noche anterior a de guzman procedimiento bisacodyl 5 mg tablet 10 mg PO BEDTIME Qty: 14 0RF Rx Instructions: [place] 2 tabletas cada noche comenzando 7 vázquez antes del procedimiento Citrucel 500 mg tablet 500 mg PO DAILY Qty: 90 3RF Rx Instructions: Take one tablet by mouth daily in the morning.
[2022-06-27 23:26] VITALS: BP 153/81; PULSE 100; RESP 18; TEMP 37.9; O2SAT 97
[2022-06-27 23:30] LABS: Glucose, Whole Blood 134 mg/dL (60-115)
[2022-06-27 23:46] LABS: COVID-19 Test Positive (Negative)
[2022-06-28 00:47] LABS: MANUAL DIFF FLAG NO
[2022-06-28 00:56] LABS: Basophils Percent Auto 0.5 % (0-2); Eosinophils Percent Auto 0.5 % (0-4); Hematocrit 32.7 % (42.0-52.0); Hemoglobin 10.9 g/dl (14.0-18.0); Imm Gran Abs Auto 0.05 X10*3/uL (0.00-0.03); Imm Gran Pct Auto 0.6 % (0.0-0.4); Lymphocytes Absolute Auto 1.5 X10*3/uL (1.2-4.9); Mean Corpuscular HGB Conc 33.3 g/dl (31.0-36.0); Mean Corpuscular Hemoglobin 30.4 pg (27.0-33.0); Mean Corpuscular Volume 91.3 fL (80.0-98.0); Mean Platelet Volume 9.8 fL (9.4-12.4); Monocytes Absolute Auto 1.2 X10*3/uL (0.1-1.2); Monocytes Percent Auto 15.3 % (2-11); Neutrophils Percent Auto 64.1 % (45-73); Platelet Count 101 X10*3/uL (160-400); Red Blood Count 3.58 X10*6/uL (4.60-5.80); Red Cell Distribution Width 12.5 % (11.0-16.0); White Blood Count 7.9 X10*3/uL (4.8-10.8)
[2022-06-28 01:12] LABS: Alanine Aminotransferase 18 U/L (0-40); Albumin Level 3.6 g/dL (3.5-5.0); Alkaline Phosphatase 70 U/L (39-117); Anion Gap 15 (12-20); Aspartate Amino Transferase 26 U/L (5-37); Bilirubin Direct 0.2 mg/dL (0.0-0.5); Bilirubin Total 0.3 mg/dL (0.0-1.0); Blood Urea Nitrogen 24 mg/dL (9-16); Calcium 8.7 mg/dL (8.4-10.2); Carbon Dioxide 24 mmol/L (22-29); Chloride 105 mmol/L (96-108); Estimated Glomerular Filt Rate 58; Ethanol < 10 mg/dL; Glucose Random 175 mg/dL (60-115); Potassium 4.1 mmol/L (3.3-5.1); Sodium 140 mmol/L (135-145); Total Protein 6.4 g/dL (6.5-8.0)
[2022-06-28 01:23] LABS: Valproate 80.4 mcg/mL (50.0-100.0)
--- NOTE | 2022-06-28 04:11 | PC.NURSE ---
Patient in bed appears sleeping, no distress observed/reported, patient walks with walker well, [facility] referral completed/confirmed/pending ETA, patient is a COVID POSITIVE, precaution measures are in placed, long-term notified, behavior appropriate and non concerning, med rec completed/pending provider's approval, will continue to monitor.
--- NOTE | 2022-06-28 07:09 | PC.NURSE ---
patient appears to remain at rest at present respirations are even and unlabored patient appears in no distress
[2022-06-28 08:21] VITALS: BP 153/92; PULSE 97; RESP 18; TEMP 36.3; O2SAT 97
[2022-06-28] MEDS: Divalproex Sodium ER 500 MG TAB.ER.24H 1000 MG PO (10:09)
[2022-06-28] MEDS: Gabapentin 100 MG CAPSULE 200 MG PO (10:09)
[2022-06-28] MEDS: hydrALAZINE HCl 50 MG TABLET PO (10:10)
[2022-06-28] MEDS: Furosemide 20 MG TABLET PO (10:10)
[2022-06-28] MEDS: Cholecalciferol (Vitamin D3) 25 MCG TABLET PO (10:10)
[2022-06-28] MEDS: lisinopriL 20 MG TABLET PO (10:10)
[2022-06-28] MEDS: risperiDONE 3 MG TABLET PO (10:11)
[2022-06-28] MEDS: metFORMIN HCl 500 MG TABLET PO (10:11)
--- NOTE | 2022-06-28 12:49 | PC.NURSE ---
Confirmed with from [facility] that transport has been booked.
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
== END 2022-06-28 13:32 | disposition other institution (70) ==
PROVIDERS: Emergency Provider Emergency Medicine
DX: U07.1 COVID-19 (principal); R45.851 Suicidal ideations; F41.9 Anxiety disorder, unspecified; F32.A Depression, unspecified; F81.9 Developmental disorder of scholastic skills, unspecified; F20.9 Schizophrenia, unspecified; I10 Essential (primary) hypertension; E11.9 Type 2 diabetes mellitus without complications; E78.5 Hyperlipidemia, unspecified; Z79.899 Other long term (current) drug therapy; Z79.02 Long term (current) use of antithrombotics/antiplatelets; Z79.84 Long term (current) use of oral hypoglycemic drugs
CPT/HCPCS: 36415; 80048; 80076; 80164; 82077; 82947; 85025; 87635; 99284

== ENCOUNTER 2022-07-16 11:56 | Emergency (ER) | payer MEDICARE, MEDICAID, SELFPAY ==
--- NOTE | 2022-07-16 12:14 | ED.GENADULT ---
HPI - General Adult General Chief complaint: Chest Pain Stated complaint: CP X'S 1 WEEK,S/HI THOUGHTS Time Seen by Provider: 07/16/22 12:12 Source: patient and EMS Mode of arrival: EMS Limitations: physical limitation (cognitive delay) History of Present Illness HPI narrative: Patient is a 51 year old male presenting to the emergency department today with chest pain and suicidal ideation. Patient states that he has been having chest pain x1 week. Patient states that he is always suicidal and today he is feeling homicidal towards the staff of his intermediate. Patient denies any dizziness, lightheadedness, abdominal pain, nausea, vomiting, fever, chills, blurry vision, double vision, loss of vision, difficulty breathing, shortness of breath, back pain, night sweats, pain with urination, increased urinary frequency, increased urinary urgency, blood in his urine or stool, syncope or a near syncopal episode, recent trauma or falls, bowel incontinence, bladder incontinence, bowel retention, bladder retention, or any other complaints at this time. Onset (ago): week(s) (1) Location: chest Radiation: non-radiation Severity: mild Severity scale (1-10): 1 Quality: dull Pain Consistency: constant Relieving factors: none Exacerbating factors: none Associated symptoms: denies other symptoms Treatments prior to arrival: none Related Data Home Medications Medication Instructions Recorded Confirmed gabapentin 100 mg capsule 200 mg PO BID 06/23/21 07/05/22 lisinopril 20 mg tablet 1 tab PO DAILY 06/23/21 07/05/22 risperidone 3 mg tablet 1 tab PO BID 06/23/21 07/05/22 divalproex 500 mg tablet,extended 1,000 mg PO BID 09/28/21 07/05/22 release 24 hr (Depakote ER) simethicone 125 mg capsule (Gas 125 mg PO TID-QID PRN 09/28/21 07/05/22 Relief (simethicone)) Gastrointestinal Spasms Or Cramping aspirin 81 mg tablet 81 mg PO DAILY 06/27/22 07/05/22 Previous Rx's Medication Instructions Recorded nut.therapy,urea cycle disordr 15 1 ea PO BID #400 grams 09/28/21 gram-393 kcal/100 gram oral pwdr albuterol sulfate 90 mcg/actuation 2 puff inhalation Q6H PRN Wheezing 10/12/21 aerosol inhaler #8.5 grams dextromethorphan-guaifenesin 5 10 ml PO Q4H PRN Cough #237 mL 10/12/21 mg-100 mg/5 mL oral liquid (Robitussin Cough-Chest Congestion DM) fluticasone propionate 50 1 spray intranasal BID #16 grams 10/12/21 mcg/actuation nasal spray,suspension artifi.tears(hypromellose)(PF) 0.3 1 drp ophthalmic (eye) Q4-6H PRN 10/17/21 % eye drops dry eye(s) #10 mL neomycin-bacitracn Zn-polymyx 3.5 1 appl topical BID PRN cut #28.4 10/22/21 mg-400 unit-5,000 unit/gram top grams oint (Triple Antibiotic) ondansetron 4 mg disintegrating 4 mg PO Q6H PRN Nausea #20 tabs 10/22/21 tablet propranolol 20 mg tablet 20 mg PO TID@0800,1600,1999 90 10/25/21 days #270 tabs atorvastatin 10 mg tablet 10 mg PO BEDTIME #90 tabs 11/20/21 dexlansoprazole 60 mg 60 mg PO BEDTIME #90 caps 11/20/21 capsule,biphase delayed release (Dexilant) bismuth subsalicylate 262 mg 2 tab PO QID PRN diarrhea 3 days 11/28/21 tablet (Pepto-Bismol) #24 tabs metformin 500 mg tablet 500 mg PO BID #180 tabs 12/05/21 blood sugar diagnostic (OneTouch #100 ea 12/17/21 Ultra Test strips) cholecalciferol (vitamin D3) 25 25 mcg PO DAILY #90 tabs 12/17/21 mcg (1,000 unit) tablet hydralazine 50 mg tablet 50 mg PO TID 90 days #270 tabs 12/17/21 cyanocobalamin (vitamin B-12) 1,000 mcg PO DAILY@1999 #90 tabs 01/16/22 1,000 mcg tablet aluminum-mag hydroxide-simethicone 10 ml PO QID PRN indigestion #200 02/04/22 400 mg-400 mg-40 mg/5 mL oral susp mL (Mylanta Maximum Strength) furosemide 20 mg tablet (Lasix) 20 mg PO Q OTHER DAY #45 tabs 02/12/22 fluticasone 250 mcg-salmeterol 50 1 inh inhalation BID #60 ea 02/20/22 mcg/dose blistr powdr for inhalation (Advair Diskus) urea 15 gram oral powder packet 1 packet PO DAILY 30 days #8 ea 02/20/22 (Ure-Na) diphenoxylate-atropine 2.5 2 tab PO TID PRN Diarrhea #60 tabs 03/07/22 mg-0.025 mg tablet (Lomotil) ferrous sulfate 325 mg (65 mg 325 mg PO BID #60 tabs 04/09/22 iron) tablet methylcellulose (laxative) 500 mg 500 mg PO DAILY #90 tabs 05/22/22 tablet (Citrucel) acetaminophen 325 mg tablet 650 mg PO Q4H PRN fever or pain 90 06/11/22 days #180 tabs lactase 3,000 unit tablet (Lactaid) 3,000 unit PO TIDWM #90 tabs 07/05/22 Allergies Allergy/AdvReac Type Severity Reaction Status Date / Time Sulfa (Sulfonamide Allergy Severe CHAVEZ Verified 07/05/22 11:07 Antibiotics) ALICIA REACTION, Chavez Alicia trimethoprim Allergy Mild UNKNOWN Verified 07/05/22 11:07 lactose AdvReac Mild STOMACH Verified 07/05/22 11:07 UPSET Review of Systems Constitutional: Constitutional: Reports no additional constitutional complaints, Denies chills, Denies fever(s) and Denies night sweats Eyes: Eyes: Reports no additional eye complaints, Denies blurry vision, Denies change in vision, Denies diplopia, Denies eye discharge, Denies loss of vision and Denies eye pain ENT: Denies dizziness Cardiovascular: Cardiovascular: Reports no additional cardiovascular complaints, Reports chest pain, Denies lightheadedness, Denies Loss of Consciousness and Denies dyspnea Respiratory: Respiratory: Reports no additional respiratory complaints and Denies dyspnea Gastrointestinal: Gastrointestinal: Reports no additional gastrointestinal complaints, Denies abdominal pain, Denies melena, Denies hematochezia, Denies change in bowel habits and Denies change in stool character Genitourinary: Genitourinary: Reports no additional male genitourinary complaints, Denies hematuria, Denies oliguria, Denies difficulty urinating, Denies dysuria, Denies urinary frequency, Denies urinary hesitancy, Denies urinary incontinence and Denies urinary urgency Musculoskeletal: Musculoskeletal: Reports no additional musculoskeletal complaints, Denies numbness and Denies tingling Neurologic: Denies dizziness, Denies loss of vision, Denies numbness and Denies tingling Psychiatric: Psychiatric: Reports no additional psychiatric complaints, Reports homicidal ideation and Reports suicidal ideation Endocrine: Endocrine: Reports no additional endocrine complaints Hematologic/Lymphatic: Hematologic/Lymphatic: Reports no additional hematologic/lymphatic complaints Allergic/Immunologic: Allergic/Immunologic: Reports no additional allergic/immunologic complaints PMFSH Past Medical History Attestation statement: The following information was validated with the patient. Source: old records reviewed Medical History Anemia Anxiety Asthma Cerebellar ataxia Depression Diabetes mellitus Essential hypertension Hyperlipidemia LDL goal <100 Hypertension Hyponatremia Lactose intolerance Mental disability Morbid obesity with BMI of 50.0-59.9, adult Obesity due to excess calories Peripheral vascular disease Proteinuria Right ankle pain Seizure disorder Type 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 Vertigo Surgical History History of orchiectomy Family History Family History Father Myocardial infarction CVD (cardiovascular disease) Diabetes mellitus Mother Diabetes mellitus HTN (hypertension) Brother In good health Sister In good health Social History Social History Household Members: Other Household Members Other:: from intermediate Housing: Other Housing Other:: intermediate Do you presently have visiting nurse or other home services: Yes Alcohol intake: never Patient Tobacco Use Status: Never used Tobacco e-Cigarette/Vaping Use: Never Used Second Hand Smoke Exposure: No Advance Directives: No Advance Directives Information Provided: No Advance Directives Date on File: 05/23/21 service: No Current occupational status: disabled Cognitive needs: Yes (walker) Hearing needs: No Vision needs: Yes (glasses) Physical Exam ED Vital Signs: Vital Signs - 24 hr 07/16/22 12:15 Temperature 98.0 F Pulse Rate 80 Respiratory Rate 20 Blood Pressure 191/81 H Pulse Oximetry 99 Oxygen Delivery Method Room Air BMI result Body Mass Index 42.7 Const General: cooperative, no acute distress, alert and awake Nutritional Appearance: well nourished Orientation/consciousness: patient oriented x3 Limitations: no limitations and physical limitations (cognitive delay) HENMT Head: Yes normal to inspection and Yes atraumatic Ears: hearing grossly normal bilaterally and external ears normal General nose exam: Normal external nose present, no nasal discharge noted and no epistaxis Face and sinus: Yes normal facial exam, No abrasion and No laceration Mouth: Normal oral and palatal mucosa present, no drooling and no muffled voice Eyes General: appearance normal, both eyes and all related structures Periorbital: periorbital findings normal Eyelids: Yes eyelids normal Conjunctivae: conjunctivae normal Pupils: Equal, round and reactive pupils present EOM: EOMs intact bilaterally Neck Neck: Yes normal visual inspection, Yes full ROM and Yes no lymphadenopathy Chest Chest palpation & inspection: normal inspection of the chest Resp Effort & Inspection: normal respiratory effort and able to speak in complete sentences Auscultation: clear to auscultation bilaterally Cardio Rate: regular rate Rhythm: regular rhythm GI Inspection: Yes normal to inspection Neuro General: patient oriented x3 and moves all extremities Cranial nerves: Yes Equal, round and reactive pupils present Cognition (Neuro): normal cognition Motor exam (neuro): 5/5 motor strength present throughout Sensory Exam: Normal double simultaneous stimulation for sensation Coordination: [id number] test normal Extrem General: Yes normal to inspection, Yes full ROM and Yes capillary refill normal Psych Appearance: grossly normal Mental Status: mental status grossly normal Affect: normal affect Attitude: cooperative Thought process: Normal thought process present Thought content: Normal thought content present Insight: Good insight present (Psych) Medical Decision Making MDM Narrative Medical decision making narrative: Patient is a 51 year old male presenting to the emergency department today with chest pain, suicidal ideation, and homicidal ideation. Patient's physical exam was unremarkable. Patient's blood work was unremarkable. Patient's EKG was unremarkable. I explained my physical exam findings as well as all test results to the patient. I answered all questions asked by the patient. Patient was evaluated by the CARE team who deemed him appropriate for discharge. I stressed the importance of the patient taking his medication as prescribed. I stressed the importance of the patient following up with his primary care provider. I stressed the importance of the patient returning to the emergency department immediately if his symptoms were to worsen or if he were to develop any dizziness, shortness of breath, difficulty breathing, chest pain, blurry vision, loss of vision, nausea, vomiting, abdominal pain, fever, chills, back pain, or any other complaints. Patient verbalized agreement and understanding with this treatment plan and discharge. Medical Records Medical records reviewed: Yes I reviewed the patient's medical records. Lab Data Lab results reviewed: Yes I reviewed the patient's lab results. Result diagrams: 07/16/22 13:24 07/16/22 13:26 Labs: Lab Results 07/16/22 07/16/22 07/16/22 Range/Units 13:15 13:24 13:24 WBC 5.4 (4.8-10.8) X10*3/uL RBC 3.83 L (4.60-5.80) X10*6/uL Hgb 11.5 L (14.0-18.0) g/dl Hct 34.8 L (42.0-52.0) % MCV 90.9 (80.0-98.0) fL MCH 30.0 (27.0-33.0) pg MCHC 33.0 (31.0-36.0) g/dl RDW 12.9 (11.0-16.0) % Plt Count 112 L (160-400) X10*3/uL MPV 10.1 (9.4-12.4) fL Immature Gran % (Auto) 0.9 H (0.0-0.4) % Neut % (Auto) 60.3 (45-73) % Lymph % (Auto) 29.6 (20-40) % [place] % (Auto) 7.2 (2-11) % Eos % (Auto) 1.3 (0-4) % Baso % (Auto) 0.7 (0-2) % Lymph # (Auto) 1.6 (1.2-4.9) X10*3/uL [place] # (Auto) 0.4 (0.1-1.2) X10*3/uL Eos # (Auto) 0.1 (0.0-0.4) X10*3/uL Baso # (Auto) 0.0 (0.0-0.2) X10*3/uL Abs Immat Gran (auto) 0.05 H (0.00-0.03) X10*3/uL Absolute Neuts (auto) 3.3 (2.0-8.3) x10*3/uL Absolute Nucleated RBC 0.000 (0.0-0.012) X10*3/uL Nucleated RBC % (auto) 0.0 (0.0-0.2) /100WBC Sodium (135-145) mmol/L Potassium (3.3-5.1) mmol/L Chloride (96-108) mmol/L Carbon Dioxide (22-29) mmol/L Anion Gap (12-20) BUN (9-16) mg/dL Creatinine (0.5-1.4) mg/dL Estim Creat Clear Calc Estimated GFR Random Glucose (60-115) mg/dL Calcium (8.4-10.2) mg/dL Magnesium (1.6-2.6) mg/dL Total Bilirubin (0.0-1.0) mg/dL AST (5-37) U/L ALT (0-40) U/L Alkaline Phosphatase (39-117) U/L Troponin I High Sens < 3.5 (<3.5-35.0) ng/L Total Protein (6.5-8.0) g/dL Albumin (3.5-5.0) g/dL Salicylates (15-30) mg/dL Urine Opiates Screen Not Detected (Not Detect) Urine Fentanyl Screen Not Detected (Not Detect) Acetaminophen (<30) mcg/mL Ur Barbiturates Screen Not Detected (Not Detect) Ur Phencyclidine Scrn Not Detected (Not Detect) Ur Amphetamines Screen Not Detected (Not Detect) U Benzodiazepines Scrn Not Detected (Not Detect) Urine Cocaine Screen Not Detected (Not Detect) U Marijuana (THC) Screen Not Detected (Not Detect) Ethyl Alcohol mg/dL 07/16/22 Range/Units 13:26 WBC (4.8-10.8) X10*3/uL RBC (4.60-5.80) X10*6/uL Hgb (14.0-18.0) g/dl Hct (42.0-52.0) % MCV (80.0-98.0) fL MCH (27.0-33.0) pg MCHC (31.0-36.0) g/dl RDW (11.0-16.0) % Plt Count (160-400) X10*3/uL MPV (9.4-12.4) fL Immature Gran % (Auto) (0.0-0.4) % Neut % (Auto) (45-73) % Lymph % (Auto) (20-40) % [place] % (Auto) (2-11) % Eos % (Auto) (0-4) % Baso % (Auto) (0-2) % Lymph # (Auto) (1.2-4.9) X10*3/uL [place] # (Auto) (0.1-1.2) X10*3/uL Eos # (Auto) (0.0-0.4) X10*3/uL Baso # (Auto) (0.0-0.2) X10*3/uL Abs Immat Gran (auto) (0.00-0.03) X10*3/uL Absolute Neuts (auto) (2.0-8.3) x10*3/uL Absolute Nucleated RBC (0.0-0.012) X10*3/uL Nucleated RBC % (auto) (0.0-0.2) /100WBC Sodium 140 (135-145) mmol/L Potassium 5.0 D (3.3-5.1) mmol/L Chloride 105 (96-108) mmol/L Carbon Dioxide 22 (22-29) mmol/L Anion Gap 18 (12-20) BUN 32 H (9-16) mg/dL Creatinine 1.13 (0.5-1.4) mg/dL Estim Creat Clear Calc 92.3 Estimated GFR > 60 Random Glucose 108 D (60-115) mg/dL Calcium 9.0 (8.4-10.2) mg/dL Magnesium 1.5 L (1.6-2.6) mg/dL Total Bilirubin 0.2 (0.0-1.0) mg/dL AST 23 (5-37) U/L ALT 16 (0-40) U/L Alkaline Phosphatase 84 (39-117) U/L Troponin I High Sens (<3.5-35.0) ng/L Total Protein 6.6 (6.5-8.0) g/dL Albumin 3.6 (3.5-5.0) g/dL Salicylates < 5.0 L (15-30) mg/dL Urine Opiates Screen (Not Detect) Urine Fentanyl Screen (Not Detect) Acetaminophen < 1 (<30) mcg/mL Ur Barbiturates Screen (Not Detect) Ur Phencyclidine Scrn (Not Detect) Ur Amphetamines Screen (Not Detect) U Benzodiazepines Scrn (Not Detect) Urine Cocaine Screen (Not Detect) U Marijuana (THC) Screen (Not Detect) Ethyl Alcohol < 10 mg/dL ECG Data Attestation: I personally reviewed and interpreted this ECG as follows: Prior ECG tracings: available for review Interpretation: Vent. Rate: 067 BPM ? ? Atrial Rate: 312 BPM P-R Int: 174 ms? QRS Dur: 088 ms QT Int: 382 ms ? ? ? P-R-T Axes: 055 001 054 degrees QTc Int: 403 ms ? Undetermined rhythm Otherwise normal ECG When compared with ECG of 27-OCT-2021 15:49, Current undetermined rhythm precludes rhythm comparison, needs review DD/ [id number] Discharge Plan Discharge Clinical Impression: Chest pain, Depression Patient Disposition: Home, Self-Care Instructions: Chest Pain (DC), Depression (ED) Additional Instructions: Follow up with your primary care provider. Return to the emergency department immediately if your symptoms worsen or if you develop any dizziness, shortness of breath, difficulty breathing, chest pain, blurry vision, loss of vision, nausea, vomiting, abdominal pain, fever, chills, back pain, or any other complaints. Prescriptions: No Action divalproex [Depakote ER] 500 mg tablet extended release 24 hr 1,000 mg PO BID Rx Instructions: Take two tabs by mouth twice a day nut.therapy,urea cycle disordr 15 gram-393 kcal/100 gram powder 1 ea PO BID Qty: 400 0RF Rx Instructions: Dissolved one packet of 15 gm into 8 oz of fluids and give by mouth every morning. simethicone [Gas Relief (simethicone)] 125 mg capsule 125 mg PO TID-QID PRN (Reason: Gastrointestinal Spasms Or Cramping) Rx Instructions: Take 1 capsule by mouth up to four times a day as needed for abdominal distension. artifi.tears(hypromellose)(PF) 0.3 % drops 1 drp ophthalmic (eye) Q4-6H PRN (Reason: dry eye(s)) Qty: 10 0RF Triple Antibiotic 3.5mg-400 unit- 5,000 unit/gram ointment 1 appl topical BID PRN (Reason: cut) Qty: 28.4 0RF Rx Instructions: Apply a thin layer to cut/scrape to skin twice a day as needed. Call provider if no results in 72 hours ondansetron 4 mg tablet,disintegrating 4 mg PO Q6H PRN (Reason: Nausea) Qty: 20 3RF propranolol 20 mg tablet 20 mg PO TID@0800,1600,2000 90 Days Qty: 270 3RF atorvastatin 10 mg tablet 10 mg PO BEDTIME Qty: 90 3RF Dexilant 60 mg capsule,biphase delayed releas 60 mg PO BEDTIME Qty: 90 3RF Pepto-Bismol 262 mg tablet 2 tab PO QID PRN (Reason: diarrhea) 3 Days Qty: 24 0RF metformin 500 mg tablet 500 mg PO BID Qty: 180 3RF (DME) OneTouch Ultra Test Strip See Rx Instructions .Route Qty: 100 11RF Rx Instructions: Test blood sugar 3 times a day as directed cholecalciferol (vitamin D3) 25 mcg (1,000 unit) tablet 25 mcg PO DAILY Qty: 90 3RF hydralazine 50 mg tablet 50 mg PO TID 90 Days Qty: 270 2RF Rx Instructions: dose not listed. unsure of dose cyanocobalamin (vitamin B-12) 1,000 mcg tablet 1,000 mcg PO DAILY@1999 Qty: 90 3RF furosemide [Lasix] 20 mg tablet 20 mg PO Q OTHER DAY Qty: 45 2RF fluticasone propion-salmeterol [Advair Diskus] 250-50 mcg/dose blister with device 1 inh inhalation BID Qty: 60 12RF Ure-Na 15 gram powder in packet 1 packet PO DAILY 30 Days Qty: 8 11RF diphenoxylate-atropine [Lomotil] 2.5-0.025 mg tablet 2 tab PO TID PRN (Reason: Diarrhea) Qty: 60 1RF acetaminophen 325 mg tablet 650 mg PO Q4H PRN (Reason: fever or pain) 90 Days Qty: 180 2RF lactase [Lactaid] 3,000 unit tablet 3,000 unit PO TIDWM Qty: 90 3RF Rx Instructions: Dose confirmed with pharmacy for TID (not QID). Thank you. ferrous sulfate 325 mg (65 mg iron) Tablet 325 mg PO BID Qty: 60 4RF lisinopril 20 mg tablet 1 tab PO DAILY gabapentin 100 mg capsule 200 mg PO BID risperidone 3 mg tablet 1 tab PO BID aspirin 81 mg Tablet 81 mg PO DAILY Robitussin Cough-Chest Maury DM 5-100 mg/5 mL liquid 10 ml PO Q4H PRN (Reason: Cough) Qty: 237 0RF albuterol sulfate 90 mcg/actuation HFA aerosol inhaler 2 puff INHALATION Q6H PRN (Reason: Wheezing) Qty: 8.5 0RF fluticasone propionate 50 mcg/actuation spray,suspension 1 spray INTRANASAL BID Qty: 16 11RF alum-mag hydroxide-simeth [Mylanta Maximum Strength] 400-400-40 mg/5 mL suspension 10 ml PO QID PRN (Reason: indigestion) Qty: 200 0RF Citrucel 500 mg tablet 500 mg PO DAILY Qty: 90 3RF Rx Instructions: Take one tablet by mouth daily in the morning. Referrals: Burak,Robert Downing MD [Primary Care Provider] - Print Language: Citizen Of [place]
[2022-07-16 12:15] VITALS: BP 156/80; BP 191/81; PULSE 72; PULSE 80; RESP 20; TEMP 36.7; O2SAT 100; O2SAT 99; BMI 42.7
--- NOTE | 2022-07-16 12:15 | ECG_ITS ---
Test Reason : chest pain Blood Pressure : / mmHG Vent. Rate : 067 BPM Atrial Rate : 312 BPM P-R Int : 174 ms QRS Dur : 088 ms QT Int : 382 ms P-R-T Axes : 055 001 054 degrees QTc Int : 403 ms Atrial fibrillation Abnormal ECG When compared with ECG of 27-OCT-2021 15:49, Atrial fibrillation is now Present Referred By: Veda Price Electronically Signed By:LEVI WHITMORE
[2022-07-16 13:29] LABS: MANUAL DIFF FLAG NO
[2022-07-16 13:31] LABS: Basophils Percent Auto 0.7 % (0-2); Eosinophils Absolute Auto 0.1 X10*3/uL (0.0-0.4); Eosinophils Percent Auto 1.3 % (0-4); Hematocrit 34.8 % (42.0-52.0); Hemoglobin 11.5 g/dl (14.0-18.0); Imm Gran Abs Auto 0.05 X10*3/uL (0.00-0.03); Imm Gran Pct Auto 0.9 % (0.0-0.4); Lymphocytes Absolute Auto 1.6 X10*3/uL (1.2-4.9); Lymphocytes Percent Auto 29.6 % (20-40); Mean Corpuscular Volume 90.9 fL (80.0-98.0); Mean Platelet Volume 10.1 fL (9.4-12.4); Monocytes Absolute Auto 0.4 X10*3/uL (0.1-1.2); Monocytes Percent Auto 7.2 % (2-11); Neutrophils Absolute Auto 3.3 x10*3/uL (2.0-8.3); Neutrophils Percent Auto 60.3 % (45-73); Platelet Count 112 X10*3/uL (160-400); Red Blood Count 3.83 X10*6/uL (4.60-5.80); Red Cell Distribution Width 12.9 % (11.0-16.0); White Blood Count 5.4 X10*3/uL (4.8-10.8)
[2022-07-16 13:53] LABS: Troponin-I High Sensitivity < 3.5 ng/L (<3.5-35.0)
[2022-07-16 14:31] LABS: Amphetamine Screen Urine Not Detected (Not Detect); Barbiturates, Urine Not Detected (Not Detect); Benzodiazepines Screen Urine Not Detected (Not Detect); Cannabinoid Screen Urine Not Detected (Not Detect); Cocaine Screen Urine Not Detected (Not Detect); Fentanyl, urine Not Detected (Not Detect); Opiate Screen Urine Not Detected (Not Detect); Phencyclidine Screen Urine Not Detected (Not Detect)
[2022-07-16 14:34] LABS: Acetaminophen LAB < 1 mcg/mL (<30); Alanine Aminotransferase 16 U/L (0-40); Albumin Level 3.6 g/dL (3.5-5.0); Alkaline Phosphatase 84 U/L (39-117); Anion Gap 18 (12-20); Aspartate Amino Transferase 23 U/L (5-37); Bilirubin Total 0.2 mg/dL (0.0-1.0); Blood Urea Nitrogen 32 mg/dL (9-16); Carbon Dioxide 22 mmol/L (22-29); Chloride 105 mmol/L (96-108); Creatinine Clr Calc Pharmacy 92.3; Estimated Glomerular Filt Rate > 60; Ethanol < 10 mg/dL; Glucose Random 108 mg/dL (60-115); Magnesium 1.5 mg/dL (1.6-2.6); Salicylate < 5.0 mg/dL (15-30); Sodium 140 mmol/L (135-145); Total Protein 6.6 g/dL (6.5-8.0)
--- NOTE | 2022-07-16 15:35 | MHC.CARE ---
Pt is a 51 year old single, white, Irish speaking male who arrived to the ED via ambulance endorsing chest pain and SI/HI. Pt is well known to the hospital and CARE team from previous ED visits with similar presentation. He has an intellectual disability and often endorses vague complaints of suicidality and chest discomfort as a means of addressing unmet needs. Pt has been medically worked up for the chest pain and is cleared for a risk assessment. CARE team contacted pt's long-term and spoke with Janie Toribio ([phone]) who reported that they have no concerns re: his behavior or safety at this time. She shared that he has been at his baseline and suspects that part of his presentation today may be in response to another resident of the program having to go to a hospital for care. Pt is able to return to the program once he is medically cleared to do so. This field underwriter met with the pt in the main ED 6H. He was alert and oriented, engaged easily, and continued to express wanting to hurt himself and others. He denies having a plan, intent, or recent attempts. He appears older than his stated age, dressed in hospital attire, hygiene and grooming are within normal limits. His gaze is vacant, eye contact is intense, and his speech is somewhat slurred with even tone and volume. He endorsed hearing voices telling him to harm himself but was not able describe the voices, what they're saying specifically, and when they started. He was easily distracted by talking about the [employer] that is starting next week and after speaking about the Fair he appeared to be in better spirits. Pt is considered to be stable for return to his long-term. ED attending physician and provider are in agreement with plan for discharge.
== END 2022-07-16 17:18 | disposition home or self-care (01) ==
PROVIDERS: Physician Assistant Medical; Emergency Provider Emergency Medicine; PCP Internal Medicine
DX: R07.89 Other chest pain (principal); F33.1 Major depressive disorder, recurrent, moderate; R45.851 Suicidal ideations; R45.850 Homicidal ideations; Z79.899 Other long term (current) drug therapy
CPT/HCPCS: 36415; 80053; 80143; 80179; 80307; 82077; 83735; 84484; 85025; 93005; 99284

== ENCOUNTER → 2022-08-29 15:15 | Outpatient (BNVA) | payer MEDICARE, MEDICAID, SELFPAY | PROVIDERS: PCP Internal Medicine; Referring Provider Internal Medicine; Visit Provider Nurse Practitioner Family | DX: R07.2 Precordial pain (principal); I10 Essential (primary) hypertension; E78.5 Hyperlipidemia, unspecified; F81.9 Developmental disorder of scholastic skills, unspecified; E11.8 Type 2 diabetes mellitus with unspecified complications | CPT/HCPCS: 99212 ==

== ENCOUNTER 2022-09-26 11:10 | Day surgery (SDC) | payer MEDICARE, MEDICAID, SELFPAY ==
[2022-09-12 14:37] VITALS: BMI 44.4
--- NOTE | 2022-09-17 08:17 | P.CONAN_ITS ---
Documented by User: Mally Arevalo NP 09/25/22 14:03 HPI - Anesthesia Eval Consult details Narrative: 52yo M for Colonoscopy EKG 07/2022 in ED shows new afib. T/C with Nereida Bradshaw NP. Reviewed 07/2022 EKG. Likely tremors, not afib. Recommends repeat EKG preop and contact cardiolo gy if any questions. [facility] Active Problems Active Problems: All Active Problems (Updated 09/02/22 @ 12:26 by Robert Sumner MD) Peripheral vascular disease (Acute) Morbid obesity with BMI of 50.0-59.9, adult (Acute) Diabetes mellitus (Acute) Chest congestion (Acute) Contusion of left ankle (Acute) Renal insufficiency (Acute) Annual physical exam (Acute) Abdominal pain (Acute) Back pain (Acute) Positive colorectal cancer screening using Cologuard test (Acute) Type 2 diabetes mellitus with unspecified complications (Acute) Cognitive developmental delay (Acute) Precordial chest pain (Acute) Dysuria (Acute) Hospital discharge follow-up (Acute) Asthma (Acute) Cerebellar ataxia (Acute) Peripheral vascular disease (Acute) Chest pain (Acute) Colon cancer screening (Acute) Hyponatremia (Acute) Type 2 diabetes mellitus with hyperglycemia (Acute) Schizophrenia (Acute) Right ankle pain (Acute) Hyponatremia (Acute) Helicobacter pylori (H. pylori) infection (Acute) Auditory hallucinations (Acute) Musculoskeletal chest pain (Acute) Left-sided chest pain (Acute) Obesity due to excess calories (Acute) Back pain (Acute) Fall (Acute) Mental and behavioral problem (Acute) Dysphagia (Acute) Acute kidney injury (Acute) Gait instability (Acute) Suicidal ideation (Acute) Abdominal pain (Acute) Diarrhea (Acute) Hypomagnesemia (Acute) COVID-19 (Acute) Pancytopenia (Acute) Ankle pain, left (Acute) Left ankle sprain (Acute) GERD (gastroesophageal reflux disease) (Acute) Type 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 (Acute) Proteinuria (Acute) Hyperlipidemia LDL goal <100 (Acute) Essential hypertension (Acute) Past Medical History Medical History A-fib Anemia Anxiety Arrhythmia Asthma Atrial fib/flutter, transient Atrial flutter Cerebellar ataxia Depression Diabetes mellitus Essential hypertension Hyperlipidemia LDL goal <100 Hypertension Hyponatremia Lactose intolerance Mental disability Morbid obesity with BMI of 50.0-59.9, adult Obesity due to excess calories Peripheral vascular disease Proteinuria Right ankle pain Seizure disorder Type 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 Vertigo Family History Family History Father Myocardial infarction CVD (cardiovascular disease) Diabetes mellitus Mother Diabetes mellitus HTN (hypertension) Brother In good health Sister In good health Surgical History Surgical History History of orchiectomy Social History Social History Household Members: Other Household Members Other:: from skilled nursing Housing: Other Housing Other:: skilled nursing Do you presently have visiting nurse or other home services: Yes Alcohol intake: never Patient Tobacco Use Status: Never used Tobacco e-Cigarette/Vaping Use: Never Used Second Hand Smoke Exposure: No Are you DNR?: No Advance Directives: No Advance Directives Information Provided: Yes Advance Directives Date on File: 05/23/21 Nutrition Risks: No Nutritional Risk service: No Current occupational status: disabled Cognitive needs: Yes (walker) Hearing needs: No Vision needs: Yes (glasses) Meds Allergies Allergy/AdvReac Type Severity Reaction Status Date / Time Sulfa (Sulfonamide Allergy Severe LANDEROS Verified 09/02/22 11:13 Antibiotics) ALICIA REACTION, Landeros Alicia trimethoprim Allergy Mild UNKNOWN Verified 09/02/22 11:13 lactose AdvReac Mild STOMACH Verified 09/02/22 11:13 UPSET Home Medications Medication Instructions Recorded Confirmed Last Taken Type gabapentin 100 mg capsule 200 mg PO BID 06/23/21 09/12/22 09/26/22 History risperidone 3 mg tablet 1 tab PO BID 06/23/21 09/12/22 08/14/21 History divalproex 500 mg tablet,extended 1,000 mg PO BID 09/28/21 09/12/22 09/26/22 History release 24 hr (Depakote ER) simethicone 125 mg capsule (Gas 125 mg PO TID-QID PRN 09/28/21 09/12/22 Unknown History Relief (simethicone)) Gastrointestinal Spasms Or Cramping aspirin 81 mg tablet 81 mg PO DAILY 06/27/22 09/12/22 09/19/22 History lisinopril 20 mg tablet 20 mg PO DAILY 08/29/22 09/02/22 Unknown History Coumadin 09/26/22 09/22/22 History Exam Exam Date and Time: September 17, 2022 0817 Height,Weight and Vital Signs: Height 5 ft 5 in Weight 121.109 kg Pertinent Lab Results Pertinent Lab Results: Laboratory Tests 07/16/22 07/16/22 13:24 13:26 WBC 5.4 Hgb 11.5 L Hct 34.8 L Plt Count 112 L Sodium 140 Potassium 5.0 D Chloride 105 Carbon Dioxide 22 BUN 32 H Creatinine 1.13 Narrative Narrative: EKG 07/2022 Vent. Rate : 067 BPM ? ? Atrial Rate : 312 BPM ?? P-R Int : 174 ms? QRS Dur : 088 ms ? ? QT Int : 382 ms ? ? ? P-R-T Axes : 055 001 054 degrees ?? QTc Int : 403 ms ? Atrial fibrillation Abnormal ECG When compared with ECG of 27-OCT-2021 15:49, Atrial fibrillation is now Present ECHO 01/2022 Conclusions: - Normal left ventricular size, thickness, systolic function, and wall motion. The visually estimated ejection fraction is between 60-65%.? Diastolic function is normal for age. ? - Normal right ventricular cavity size and systolic function.? ? - There is mild dilatation of the ascending aorta measuring 3.40 cm.?? A nuclear stress test was done on 02/01 showing normal myocardial perfusion. Assessment and Plan Assessment Anesthesia Assessment: Chart Reviewed Documented by User: Nicole Xie MD 09/26/22 12:16 [facility] Past Medical History Medical History A-fib Anemia Anxiety Arrhythmia Asthma Atrial fib/flutter, transient Atrial flutter Cerebellar ataxia Depression Diabetes mellitus Essential hypertension Hyperlipidemia LDL goal <100 Hypertension Hyponatremia Lactose intolerance Mental disability Morbid obesity with BMI of 50.0-59.9, adult Obesity due to excess calories Peripheral vascular disease Proteinuria Right ankle pain Seizure disorder Type 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 Vertigo Family History Family History Father Myocardial infarction CVD (cardiovascular disease) Diabetes mellitus Mother Diabetes mellitus HTN (hypertension) Brother In good health Sister In good health Surgical History Surgical History History of orchiectomy History of Problems with Anesthesia: No Social History Social History Household Members: Other Household Members Other:: from skilled nursing Housing: Other Housing Other:: skilled nursing Do you presently have visiting nurse or other home services: Yes Alcohol intake: never Patient Tobacco Use Status: Never used Tobacco e-Cigarette/Vaping Use: Never Used Second Hand Smoke Exposure: No Are you DNR?: No Advance Directives: No Advance Directives Information Provided: Yes Advance Directives Date on File: 05/23/21 Nutrition Risks: No Nutritional Risk service: No Current occupational status: disabled Cognitive needs: Yes (walker) Hearing needs: No Vision needs: Yes (glasses) Meds Allergies Allergy/AdvReac Type Severity Reaction Status Date / Time Sulfa (Sulfonamide Allergy Severe LANDEROS Verified 09/02/22 11:13 Antibiotics) ALICIA REACTION, Landeros Alicia trimethoprim Allergy Mild UNKNOWN Verified 09/02/22 11:13 lactose AdvReac Mild STOMACH Verified 09/02/22 11:13 UPSET Home Medications Medication Instructions Recorded Confirmed Last Taken Type gabapentin 100 mg capsule 200 mg PO BID 06/23/21 09/12/22 09/26/22 History risperidone 3 mg tablet 1 tab PO BID 06/23/21 09/12/22 08/14/21 History divalproex 500 mg tablet,extended 1,000 mg PO BID 09/28/21 09/12/22 09/26/22 History release 24 hr (Depakote ER) simethicone 125 mg capsule (Gas 125 mg PO TID-QID PRN 09/28/21 09/12/22 Unknown History Relief (simethicone)) Gastrointestinal Spasms Or Cramping aspirin 81 mg tablet 81 mg PO DAILY 06/27/22 09/12/22 09/19/22 History lisinopril 20 mg tablet 20 mg PO DAILY 08/29/22 09/02/22 Unknown History Coumadin 09/26/22 09/22/22 History Exam Airway Mallampati Class: III TM Dist: >3cm Neck ROM: Full Loose/Missing/Broken Teeth: Yes, Upper and Lower Heart: irreg irregular rhythm Lungs: CTA Assessment and Plan Assessment Anesthesia Assessment: Anesthesia Plan Discussed Final Anesthetic Review History of Problems with Anesthesia: No NPO: Yes ASA Class: III Final Preanesthetic Review: Meds/Allgs Chart Reviewed, Consent Obtained/Reviewed and Anes Risks/Benef Reviewed Patient Risk: Intermediate Procedure Risk: Low Anesthetic Plan Anesthetic Plan: MAC: Disposition: Standard PACU
--- NOTE | 2022-09-18 07:58 | PC.NURSE ---
Irma RN called [facility] for report on patient. per [facility] patient did not complete bowel prep. this RN reached out to Dr. Mcgill via [employer] and he said patient would need to be rescheduled. Call placed to [facility] to inform. Staff from [facility] called back to say per patient he did drink a bowel prep but has not had a bowel movement. This RN reached out to Dr. Mcgill via [employer] with this new information. per Dr. Mcgill patient to still be rescheduled as patient is poor historian and we are unable to know if prep was completed. This RN called [facility] to inform them that procedure will still need to be rescheduled at thist time.
--- NOTE | 2022-09-26 | ECG_ITS ---
Test Reason : hx of abnormal ekg Blood Pressure : / mmHG Vent. Rate : 064 BPM Atrial Rate : 277 BPM P-R Int : 000 ms QRS Dur : 090 ms QT Int : 434 ms P-R-T Axes : 075 003 042 degrees QTc Int : 447 ms Poor data quality Atrial flutter with variable A-V block Abnormal ECG When compared with ECG of 16-JUL-2022 12:37, Atrial flutter has replaced Atrial fibrillation Referred By: Mally Arevalo Electronically Signed By:VERONICA CRUMP MD
--- NOTE | 2022-09-26 09:42 | PC.NURSE ---
spoke to director of event management kelli pt took entire prep not solid food all clear liquids yesterday results clear no coumadin for 3 days pt has hcp
[2022-09-26 11:12] VITALS: BP 184/98; PULSE 63; RESP 18; TEMP 36.1; O2SAT 98
[2022-09-26 11:46] LABS: Glucose, Whole Blood 112 mg/dL (60-115)
[2022-09-26 12:04] LABS: INTERNATIONAL NORM RATIO 0.9 (0.9-1.1); Prothrombin Time 10.8 SEC (10.0-13.1)
[2022-09-26] MEDS: Lactated Ringers 1,000 ML 100 ML IVCONT (12:04)
--- NOTE | 2022-09-26 13:03 | MHC.SHP ---
Pre-Procedural Eval Section A Date of Service: 09/26/22 Section B Chief Complaint: pos cologuard test Relevant Family History (Specify if Yes): No Relevant Social History: None Present Medications: see Short Stay Collaborative assessment Medical History: Significant History (A-fib Anemia Anxiety Arrhythmia Asthma Atrial fib/flutter, transient Atrial flutter Cerebellar ataxia Depression Diabetes mellitus Essential hypertension Hyperlipidemia LDL goal <100 Hypertension Hyponatremia Lactose intolerance Mental disability Morbid obesity with BMI of 50.0-59.9, adult Obesity d) History of Previous Operations: Relevant previous surgery/procedure and date(s) (orchiectiomy) Allergies: Allergies Allergy/AdvReac Type Severity Reaction Status Date / Time Sulfa (Sulfonamide Allergy Severe CHAVEZ Verified 09/02/22 11:13 Antibiotics) ALICIA REACTION, Chavez Alicia trimethoprim Allergy Mild UNKNOWN Verified 09/02/22 11:13 lactose AdvReac Mild STOMACH Verified 09/02/22 11:13 UPSET Review of Systems Sugical H&P ROS: Negative: Constitution, Cardiovascular, Respiratory, Neurological, Psychiatric, Hem-Onc, Allergic/Immunologic, Gastrointestinal, Genitourinary, Musculoskeletal, Integumentary, Endocrine and Eyes/Ears/Nose/Throat Exam Surgical H&P Exam: Normal: HEENT, Normal: Heart, Normal: Lungs, Normal: Extremities, Normal: Abdomen, Normal: Skin and Normal: Neurological Plan Diagnosis/Plan: Unchanged I have reviewed the history and physical and performed a pertinent physical examination on my patient. No changes have occurred unless specified.
--- NOTE | 2022-09-26 13:57 | W.PM.OPN ---
Operative Note Operative Note Date of Service: 09/26/22 Narrative: Operative Information Procedure Description: Colonoscopy Indication: pos cologuard Anesthesia: MAC COLONOSCOPY Instrument: Olympus variable stiffness pediatric scope 190L Colonoscopy Monitoring: Vital signs and clinical assessment, continuous EKG monitoring, Pulse oximetry, Carbon Dioxide monitoring and blood pressure monitoring were done throughout the procedure. Colon withdrawal time was 42 minutes. Procedure: The patient was placed in the left lateral decubitis position and pre-procedure medications were administered. After a digital rectal examination of the ano-rectum, the video colonoscope was inserted into the rectum and advanced through the colon to the cecum/TI. The colonoscope was slowly withdrawn in a retrograde panoramic fashion and the colon mucosa was carefully examined including a retroflexed view of the rectum. Findings and interventions are described below. Procedure Difficulty: easy Findings: Terminal Ileum-not intubated Cecum:normal Ascending Colon: x 2 sessile polyps removed with cold snare. measuring 10-14 mm. one site with 3 clips applied Transverse Colon - x 5 sessile polyps measuring 10-14 mm removed with cold snare and 3 clipsl applied to close the various defects. Descending Colon:normal Sigmoid Colon: normal Rectum: Retroflexion with small internal hemorrhoids, grade I Anorectum - normal Colon preparation: [place] Bowel Preparation Scale Right colon; 1 Transverse colon: 1 Left colon; 1 (0 = Unprepared colon segment with mucosa not seen due to solid stool that cannot be cleared. 1 = Portion of mucosa of the colon segment seen, but other areas of the colon segment not well seen due to staining, residual stool and/or opaque liquid. 2 = Minor amount of residual staining, small fragments of stool and/or opaque liquid, but mucosa of colon segment seen well. 3 = Entire mucosa of colon segment seen well with no residual staining, small fragments of stool or opaque liquid) Impression and Post Procedure Diagnosis: polyps internal hemorrhoids Plan: High fiber diet leaflet Avoid straining at stool, epsom salts and sitz bath, anusol supps or cream Repeat Colonoscopy in 6-12 months or earlier if clinically indicated hopefully can get a better prep next time Above findings were reviewed with the patient and relevant handouts were provided if indicated.
[2022-09-26 14:15] VITALS: BP 154/86; PULSE 64; RESP 20; TEMP 36.6; O2SAT 100
[2022-09-26 14:30] VITALS: BP 146/79; PULSE 63; RESP 18; TEMP 36.2; O2SAT 98
== END 2022-09-26 15:49 | disposition home or self-care (01) ==
PROVIDERS: Anesthesiology; PCP Internal Medicine; Visit Provider Internal Medicine Gastroenterology
PROC: 0DJD8ZZ Inspection of Lower Intestinal Tract, Via Natural or Artificial Opening Endoscopic (ICD-10-PCS; CPT 45378; principal; 2022-09-26 12:10)
DX: R19.5 Other fecal abnormalities (principal); D12.2 Benign neoplasm of ascending colon; D12.3 Benign neoplasm of transverse colon; K58.9 Irritable bowel syndrome, unspecified; K21.9 Gastro-esophageal reflux disease without esophagitis; J45.909 Unspecified asthma, uncomplicated; D64.9 Anemia, unspecified; I48.91 Unspecified atrial fibrillation; I48.92 Unspecified atrial flutter; I10 Essential (primary) hypertension; E11.9 Type 2 diabetes mellitus without complications; G40.909 Epilepsy, unspecified, not intractable, without status epilepticus; E66.01 Morbid (severe) obesity due to excess calories; Z68.43 Body mass index [BMI] 50.0-59.9, adult; Z90.79 Acquired absence of other genital organ(s); Z79.84 Long term (current) use of oral hypoglycemic drugs; Z79.01 Long term (current) use of anticoagulants; Z79.82 Long term (current) use of aspirin; Z79.51 Long term (current) use of inhaled steroids; Z79.899 Other long term (current) drug therapy; Z88.2 Allergy status to sulfonamides; Z88.8 Allergy status to other drugs, medicaments and biological substances
CPT/HCPCS: 45385; 36415; 82947; 85610; 88305; 93005

== ENCOUNTER → 2022-09-30 11:53 | Outpatient (REF) | payer MEDICARE, MEDICAID, SELFPAY ==
--- NOTE | 2022-09-30 11:57 | HM_ITS ---
* Total monitoring time 3 days. * Underlying rhythm is sinus. Average ventricular rate 68/Min. Range 46 to 114/Min. * Rare premature ventricular complexes. Minimal burden. Very brief runs, 2 episodes. Longest 4 beats. Also possible supraventricular etiology with aberrant conduction. * Rare supraventricular ectopy. Minimal burden. Short runs noted. * No significant bradycardia or pauses. * No patient diary. MTDD
== END ==
LOC: HO.CARD 11:53
PROVIDERS: Visit Provider Nurse Practitioner Family
DX: R94.31 Abnormal electrocardiogram [ECG] [EKG] (principal)
CPT/HCPCS: 93242

== ENCOUNTER → 2022-10-09 11:03 | Outpatient (BNVA) | payer MEDICARE, MEDICAID, SELFPAY | PROVIDERS: PCP Internal Medicine; Visit Provider Nurse Practitioner Family | DX: K58.2 Mixed irritable bowel syndrome (principal); K21.9 Gastro-esophageal reflux disease without esophagitis; Z98.890 Other specified postprocedural states | CPT/HCPCS: 99212 ==

== ENCOUNTER 2022-10-31 10:31 | Outpatient (REF) | payer MEDICARE, MEDICAID, SELFPAY ==
[2022-10-31 11:50] LABS: Valproate 73.3 mcg/mL (50.0-100.0)
[2022-10-31 11:54] LABS: Bilirubin Direct < 0.2 mg/dL (0.0-0.5); Bilirubin Total 0.3 mg/dL (0.0-1.0)
[2022-10-31 11:55] LABS: Alanine Aminotransferase 16 U/L (0-40); Albumin Level 3.6 g/dL (3.5-5.0); Alkaline Phosphatase 95 U/L (39-117); Aspartate Amino Transferase 19 U/L (5-37); Total Protein 6.1 g/dL (6.5-8.0)
== END 2022-10-31 10:32 | disposition home or self-care (01) ==
LOC: HO.LAB 10:31
PROVIDERS: PCP Internal Medicine; Visit Provider General Practice
DX: Z79.899 Other long term (current) drug therapy (principal)
CPT/HCPCS: 36415; 80076; 80164

== ENCOUNTER 2022-11-19 13:19 | Emergency (ER) | payer MEDICARE, MEDICAID, SELFPAY ==
--- NOTE | ~2022-11-19 | US_ITS ---
EXAMINATION: US VENOUS ULTRASOUND WITH DOPPLER LOWER EXTREMITY, BILATERAL CLINICAL INFORMATION: Bilateral lower extremity edema and pain COMPARISON: Left lower extremity DVT study 10/24/2009 TECHNIQUE: Ultrasound of the deep veins is performed from the hip to the calf with compression sonography and color and pulse Doppler assessment. Spectral analysis with color-flow imaging is performed. FINDINGS: RIGHT: There is normal venous compression and respiratory variation and augmented flow. The visualized common femoral vein, superficial femoral vein, profunda femoral vein, popliteal vein, and the trifurcation region shows no evidence of deep venous thrombosis. There is no significant popliteal fossa cyst. LEFT: There is normal venous compression and respiratory variation and augmented flow. The visualized common femoral vein, superficial femoral vein, profunda femoral vein, popliteal vein, and the trifurcation region shows no evidence of deep venous thrombosis. There is no significant popliteal fossa cyst. If the patient's symptoms persist, followup ultrasound in 5 days 7 days might be of value to exclude proximal propagation from a non-visualized calf vein. US/US venous duplex LE BI IMPRESSION: No DVT demonstrated in either lower extremity.
[2022-11-19 13:31] VITALS: BP 132/70; BP 135/74; PULSE 67; PULSE 71; RESP 18; TEMP 37.1; O2SAT 96; O2SAT 98; BMI 43.9
--- NOTE | 2022-11-19 14:07 | ED.GENADULT ---
HPI - General Adult General Chief complaint: Psychiatric Symptoms <PANKAJ Chatman - Last Filed: 11/20/22 08:30> Stated complaint: SEC 12,SI STATEMENTS <PANKAJ Chatman - Last Filed: 11/20/22 08:30> Time Seen by Provider: 11/19/22 14:05 <PANKAJ Chatman Last Filed: 11/20/22 08:30> Source: patient and EMS <PANKAJ Chatman Last Filed: 11/20/22 08:30> Mode of arrival: EMS <PANKAJ Chatman Last Filed: 11/20/22 08:30> Limitations: physical limitation (cognitive delay) <PANKAJ Chatman Last Filed: 11/20/22 08:30> History of Present Illness HPI narrative: Patient is a 52 year old assigned male at with a history of cognitive delay, DM, and chronic suicidality presenting to the emergency department today with suicidal ideation and bilateral lower leg swelling. Patient states that he was at the urgent care to have his legs checked out when he told the urgent care provider he was suicidal. Patient denies any dizziness, lightheadedness, abdominal pain, nausea, vomiting, fever, chills, blurry vision, double vision, loss of vision, chest pain, difficulty breathing, shortness of breath, back pain, night sweats, pain with urination, increased urinary frequency, increased urinary urgency, blood in his urine or stool, syncope or a near syncopal episode, recent trauma or falls, bowel incontinence, bladder incontinence, bowel retention, bladder retention, or any other complaints at this time. <PANKAJ Chatman - Last Filed: 11/20/22 08:30> Onset (ago): year(s) <PANKAJ Chatman - Last Filed: 11/20/22 08:30> Severity: mild <PANKAJ Chatman Last Filed: 11/20/22 08:30> Severity scale (1-10): 2 <PANKAJ Chatman Last Filed: 11/20/22 08:30> Relieving factors: none <PANKAJ Chatman Last Filed: 11/20/22 08:30> Exacerbating factors: none <PANKAJ Chatman Last Filed: 11/20/22 08:30> Associated symptoms: denies other symptoms <PANKAJ Chatman - Last Filed: 11/20/22 08:30> Treatments prior to arrival: none <PANKAJ Chatman - Last Filed: 11/20/22 08:30> Related Data Home medications: Home Medications Medication Instructions Recorded Confirmed gabapentin 100 mg capsule 200 mg PO BID 06/23/21 11/19/22 risperidone 3 mg tablet 1 tab PO BID 06/23/21 11/19/22 divalproex 500 mg tablet,extended 1,000 mg PO BID 09/28/21 11/19/22 release 24 hr (Depakote ER) simethicone 125 mg capsule (Gas 125 mg PO TID-QID PRN 09/28/21 11/19/22 Relief (simethicone)) Gastrointestinal Spasms Or Cramping aspirin 81 mg tablet 81 mg PO DAILY 06/27/22 10/11/22 fluticasone propionate 50 2 spray intranasal BID 11/19/22 11/19/22 mcg/actuation nasal spray,suspension lisinopril 20 mg tablet 1 tab PO DAILY 11/19/22 11/19/22 Previous Rx's Medication Instructions Recorded nut.therapy,urea cycle disordr 15 1 ea PO BID #400 grams 09/28/21 gram-393 kcal/100 gram oral pwdr ondansetron 4 mg disintegrating 4 mg PO Q6H PRN Nausea #20 tabs 10/22/21 tablet bismuth subsalicylate 262 mg 2 tab PO QID PRN diarrhea 3 days 11/28/21 tablet (Pepto-Bismol) #24 tabs blood sugar diagnostic (OneTouch #100 ea 12/17/21 Ultra Test strips) cholecalciferol (vitamin D3) 25 25 mcg PO DAILY #90 tabs 12/17/21 mcg (1,000 unit) tablet cyanocobalamin (vitamin B-12) 1,000 mcg PO DAILY@1999 #90 tabs 01/16/22 1,000 mcg tablet fluticasone 250 mcg-salmeterol 50 1 inh inhalation BID #60 ea 02/20/22 mcg/dose blistr powdr for inhalation (Advair Diskus) urea 15 gram oral powder packet 1 packet PO DAILY 30 days #8 ea 04/13/22 (Ure-Na) methylcellulose (laxative) 500 mg 500 mg PO DAILY #90 tabs 05/22/22 tablet (Citrucel) acetaminophen 325 mg tablet 650 mg PO Q4H PRN fever or pain 90 06/11/22 days #180 tabs blood sugar diagnostic #100 ea 08/01/22 hydralazine 50 mg tablet 50 mg PO TID 90 days #270 tabs 08/28/22 ferrous sulfate 325 mg (65 mg 325 mg PO BID #60 tabs 08/29/22 iron) tablet compress.stocking,knee,reg,lrg #12 ea 09/02/22 polyethylene glycol 3350 17 17 g PO DAILY #510 grams 10/09/22 gram/dose oral powder (Miralax) sennosides 8.6 mg tablet (Natural 8.6 mg PO BEDTIME constipation #90 10/09/22 Senna Laxative) tabs albuterol sulfate 90 mcg/actuation 2 puff inhalation Q6H PRN Wheezing 10/14/22 aerosol inhaler #8.5 grams diphenoxylate-atropine 2.5 2 tab PO TID PRN Diarrhea #60 tabs 10/14/22 mg-0.025 mg tablet (Lomotil) lactase 3,000 unit tablet (Lactaid) 3,000 unit PO .QD PRN lactose 10/14/22 intolerance #90 tabs atorvastatin 10 mg tablet 10 mg PO BEDTIME #90 tabs 10/25/22 dexlansoprazole 60 mg 60 mg PO BEDTIME #90 caps 10/25/22 capsule,biphase delayed release (Dexilant) furosemide 20 mg tablet (Lasix) 20 mg PO Q OTHER DAY #45 tabs 10/25/22 metformin 500 mg tablet 500 mg PO BID #180 tabs 10/25/22 propranolol 20 mg tablet 20 mg PO TID@0800,1600,2000 90 10/25/22 days #270 tabs <PANKAJ Chatman - Last Filed: 11/20/22 08:30> Allergies/adverse reactions: Allergies Allergy/AdvReac Type Severity Reaction Status Date / Time Sulfa (Sulfonamide Allergy Severe LANDEROS Verified 10/11/22 14:35 Antibiotics) ALICIA REACTION, Landeros Alicia trimethoprim Allergy Mild UNKNOWN Verified 10/11/22 14:35 lactose AdvReac Mild STOMACH Verified 10/11/22 14:35 UPSET <PANKAJ Chatman Last Filed: 11/20/22 08:30> Review of Systems Constitutional: Constitutional: Reports no additional constitutional complaints, Denies chills, Denies fever(s) and Denies night sweats <PANKAJ Chatman Last Filed: 11/20/22 08:30> Eyes: Eyes: Reports no additional eye complaints, Denies blurry vision, Denies change in vision, Denies diplopia, Denies eye discharge, Denies loss of vision and Denies eye pain <PANKAJ Chatman - Last Filed: 11/20/22 08:30> ENT: Denies dizziness <PANKAJ Chatman Last Filed: 11/20/22 08:30> Cardiovascular: Cardiovascular: Reports no additional cardiovascular complaints, Denies chest pain, Denies lightheadedness, Denies Loss of Consciousness and Denies dyspnea <PANKAJ Chatman Last Filed: 11/20/22 08:30> Respiratory: Respiratory: Reports no additional respiratory complaints and Denies dyspnea <PANKAJ Chatman Last Filed: 11/20/22 08:30> Gastrointestinal: Gastrointestinal: Reports no additional gastrointestinal complaints, Denies abdominal pain, Denies melena, Denies hematochezia, Denies change in bowel habits and Denies change in stool character <PANKAJ Chatman Last Filed: 11/20/22 08:30> Genitourinary: Genitourinary: Reports no additional male genitourinary complaints, Denies hematuria, Denies oliguria, Denies difficulty urinating, Denies dysuria, Denies urinary frequency, Denies urinary hesitancy, Denies urinary incontinence and Denies urinary urgency <PANKAJ Chatman Last Filed: 11/20/22 08:30> Musculoskeletal: Musculoskeletal: Reports no additional musculoskeletal complaints, Denies numbness and Denies tingling <PANKAJ Chatman Last Filed: 11/20/22 08:30> Neurologic: Denies dizziness, Denies loss of vision, Denies numbness and Denies tingling <PANKAJ Chatman Last Filed: 11/20/22 08:30> Psychiatric: Psychiatric: Reports no additional psychiatric complaints and Reports suicidal ideation (chronic) <PANKAJ Chatman - Last Filed: 11/20/22 08:30> Endocrine: Endocrine: Reports no additional endocrine complaints <PANKAJ Chatman - Last Filed: 11/20/22 08:30> Hematologic/Lymphatic: Hematologic/Lymphatic: Reports no additional hematologic/lymphatic complaints <PANKAJ Chatman - Last Filed: 11/20/22 08:30> Allergic/Immunologic: Allergic/Immunologic: Reports no additional allergic/immunologic complaints <PANKAJ Chatman - Last Filed: 11/20/22 08:30> [facility] Past Medical History Attestation statement: The following information was validated with the patient. <PANKAJ Chatman - Last Filed: 11/20/22 08:30> Source: old records reviewed, nursing notes reviewed and other (skilled nursing staff) <PANKAJ Chatman - Last Filed: 11/20/22 08:30> Medical History: Medical History A-fib Anemia Anxiety Arrhythmia Asthma Atrial fib/flutter, transient Atrial flutter Cerebellar ataxia Depression Diabetes mellitus Essential hypertension Hyperlipidemia LDL goal <100 Hypertension Hyponatremia Lactose intolerance Mental disability Morbid obesity with BMI of 50.0-59.9, adult Obesity due to excess calories Peripheral vascular disease Proteinuria Right ankle pain Seizure disorder Type 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 Vertigo <PANKAJ Chatman - Last Filed: 11/20/22 08:30> Surgical History: Surgical History History of orchiectomy Hx of colonoscopy <PANKAJ Chatman - Last Filed: 11/20/22 08:30> Family History Family History: Family History Father Myocardial infarction CVD (cardiovascular disease) Diabetes mellitus Mother Diabetes mellitus HTN (hypertension) Brother In good health Sister In good health <PANKAJ Chatman - Last Filed: 11/20/22 08:30> Social History Social History: Social History Household Members: Other Household Members Other:: from skilled nursing Housing: Other Housing Other:: skilled nursing Do you presently have visiting nurse or other home services: Yes Alcohol intake: never Patient Tobacco Use Status: Never used Tobacco e-Cigarette/Vaping Use: Never Used Second Hand Smoke Exposure: No Advance Directives: No Advance Directives Information Provided: No Advance Directives Date on File: 05/23/21 service: No Current occupational status: disabled Cognitive needs: Yes (walker) Hearing needs: No Vision needs: Yes (glasses) <PANKAJ Chatman - Last Filed: 11/20/22 08:30> Physical Exam ED Vital Signs: Vital Signs - 24 hr 11/19/22 13:31 11/19/22 15:20 Temperature 98.7 F 97.6 F Pulse Rate 67 68 Respiratory Rate 18 20 Blood Pressure 135/74 155/95 H Pulse Oximetry 96 97 Oxygen Delivery Method Room Air Room Air BMI result Body Mass Index 43.9 <PANKAJ Chatman - Last Filed: 11/20/22 08:30> Vital Signs - 24 hr 11/19/22 13:31 11/19/22 15:20 Temperature 98.7 F 97.6 F Pulse Rate 67 68 Respiratory Rate 18 20 Blood Pressure 135/74 155/95 H Pulse Oximetry 96 97 Oxygen Delivery Method Room Air Room Air BMI result Body Mass Index 43.9 <Elza Hines NP - Last Filed: 11/19/22 18:06> Const General: cooperative, no acute distress, alert and awake <PANKAJ Chatman - Last Filed: 11/20/22 08:30> Nutritional Appearance: well nourished <PANKAJ Chatman - Last Filed: 11/20/22 08:30> Orientation/consciousness: patient oriented x3 <PANKAJ Chatman - Last Filed: 11/20/22 08:30> Limitations: no limitations <PANKAJ Chatman - Last Filed: 11/20/22 08:30> HENMT Head: Yes normal to inspection and Yes atraumatic <PANKAJ Chatman - Last Filed: 11/20/22 08:30> Ears: hearing grossly normal bilaterally and external ears normal <PANKAJ Chatman - Last Filed: 11/20/22 08:30> General nose exam: Normal external nose present, no nasal discharge noted and no epistaxis <PANKAJ Chatman - Last Filed: 11/20/22 08:30> Face and sinus: Yes normal facial exam, No abrasion and No laceration <Veda PANKAJ Price - Last Filed: 11/20/22 08:30> Mouth: Normal oral and palatal mucosa present, no drooling and no muffled voice <Veda PANKAJ Price - Last Filed: 11/20/22 08:30> Eyes General: appearance normal, both eyes and all related structures <PANKAJ Chatman - Last Filed: 11/20/22 08:30> Periorbital: periorbital findings normal <Veda Dee MN - Last Filed: 11/20/22 08:30> Eyelids: Yes eyelids normal <PANKAJ Chatman - Last Filed: 11/20/22 08:30> Conjunctivae: conjunctivae normal <PANKAJ Chatman - Last Filed: 11/20/22 08:30> Pupils: Equal, round and reactive pupils present <PANKAJ Chatman - Last Filed: 11/20/22 08:30> EOM: EOMs intact bilaterally <Veda Price MN - Last Filed: 11/20/22 08:30> Neck Neck: Yes normal visual inspection, Yes full ROM and Yes no lymphadenopathy <PANKAJ Chatman - Last Filed: 11/20/22 08:30> Chest Chest palpation & inspection: normal inspection of the chest <PANKAJ Chatman - Last Filed: 11/20/22 08:30> Resp Effort & Inspection: normal respiratory effort and able to speak in complete sentences <PANKAJ Chatman - Last Filed: 11/20/22 08:30> Auscultation: clear to auscultation bilaterally <PANKAJ Chatman - Last Filed: 11/20/22 08:30> Cardio Rate: regular rate <PANKAJ Chatman - Last Filed: 11/20/22 08:30> Rhythm: regular rhythm <PANKAJ Chatman - Last Filed: 11/20/22 08:30> Peripheral pulses: Peripheral pulses 2+ throughout <PANKAJ Chatman - Last Filed: 11/20/22 08:30> GI Inspection: Yes normal to inspection <PANKAJ Chatman - Last Filed: 11/20/22 08:30> Neuro General: patient oriented x3 and moves all extremities <Vedasiddhartha DoylePANKAJ zhou - Last Filed: 11/20/22 08:30> Cranial nerves: Yes Equal, round and reactive pupils present <Veda DoylePANKAJ zhou - Last Filed: 11/20/22 08:30> Cognition (Neuro): normal cognition <Veda DoylePANKAJ zhou - Last Filed: 11/20/22 08:30> Motor exam (neuro): 5/5 motor strength present throughout <Veda DoylePANKAJ zhou - Last Filed: 11/20/22 08:30> Sensory Exam: Normal double simultaneous stimulation for sensation <Veda DoylePANKAJ zhou - Last Filed: 11/20/22 08:30> Coordination: [id number] test normal <Vedasiddhartha DoylePANKAJ zhou - Last Filed: 11/20/22 08:30> Extrem Other: minimal bilateral lower leg edema <Vedasiddhartha DoylePANKAJ zhou - Last Filed: 11/20/22 08:30> General: Yes full ROM and Yes capillary refill normal <Vedasiddhartha DoylePANKAJ zhou - Last Filed: 11/20/22 08:30> Psych Appearance: grossly normal <Veda DoylePANKAJ zhou - Last Filed: 11/20/22 08:30> Mental Status: mental status grossly normal <Vedasiddhartha DoylePANKAJ zhou - Last Filed: 11/20/22 08:30> Affect: normal affect <Vedasiddhartha DoylePANKAJ zhou - Last Filed: 11/20/22 08:30> Attitude: cooperative <PANKJA Chatman - Last Filed: 11/20/22 08:30> Thought process: Normal thought process present <PANKAJ Chatman - Last Filed: 11/20/22 08:30> Thought content: Normal thought content present <PANKAJ Chatman - Last Filed: 11/20/22 08:30> Insight: Good insight present (Psych) <PANKAJ Chatman - Last Filed: 11/20/22 08:30> Course Course Course Narrative: 18:06 DVT study negative. Plan of care is to discharge home. <PANKAJ Chatman - Last Filed: 11/20/22 08:30> 18:06 DVT study negative. Plan of care is to discharge home. EXAMINATION:? US VENOUS ULTRASOUND WITH DOPPLER LOWER EXTREMITY, BILATERAL CLINICAL INFORMATION:? Bilateral lower extremity edema and pain COMPARISON:? Left lower extremity DVT study 10/24/2009 TECHNIQUE: Ultrasound of the deep veins is performed from the hip to the calf with compression sonography and color and pulse Doppler assessment. Spectral analysis with color-flow imaging is performed. FINDINGS: RIGHT: There is normal venous compression and respiratory variation and augmented flow. The visualized common femoral vein, superficial femoral vein, profunda femoral vein, popliteal vein, and the trifurcation region shows no evidence of deep venous thrombosis. ? There is no significant popliteal fossa cyst. LEFT: There is normal venous compression and respiratory variation and augmented flow. The visualized common femoral vein, superficial femoral vein, profunda femoral vein, popliteal vein, and the trifurcation region shows no evidence of deep venous thrombosis. ? There is no significant popliteal fossa cyst. If the patient's symptoms persist, followup ultrasound in 5 days 7 days might be of value to exclude proximal propagation from a non-visualized calf vein. US/US venous duplex LE BI IMPRESSION: No DVT demonstrated in either lower extremity. <Elza Hines NP - Last Filed: 11/19/22 18:06> Medications Administered Discontinued Medications Generic Name Dose Route Start Last Admin Trade Name Freq PRN Reason Stop Dose Admin Hydralazine HCl 50 mg 11/19/22 15:00 11/19/22 15:22 Hydralazine Hcl 50 Mg Tablet PO 50 mg TID PILO Administration Protocol Propranolol HCl 20 mg 11/19/22 16:00 11/19/22 15:22 Propranolol Hcl 20 Mg Tablet PO 20 mg TID@0800,1599,1999 [facility] Administration Protocol <PANKAJ Chatman - Last Filed: 11/20/22 08:30> Medications Administered Discontinued Medications Generic Name Dose Route Start Last Admin Trade Name Freq PRN Reason Stop Dose Admin Hydralazine HCl 50 mg 11/19/22 15:00 11/19/22 15:22 Hydralazine Hcl 50 Mg Tablet PO 50 mg TID PILO Administration Protocol Propranolol HCl 20 mg 11/19/22 16:00 11/19/22 15:22 Propranolol Hcl 20 Mg Tablet PO 20 mg TID@0800,1600,1999 [facility] Administration Protocol <Elza Hines NP - Last Filed: 11/19/22 18:06> Medical Decision Making Medical Decision Making [facility] Narrative: Patient is a 52 year old assigned male at with a history of chronic SI presenting to the emergency department today with SI and bilateral lower leg swelling. Patient's physical exam was unremarkable. Patient's blood work was unremarkable. Patient's bilateral lower leg US showed no acute process. I explained my physical exam findings as well as all test results to the patient. I answered all questions asked by the patient.I stressed the importance of the patient taking his medication as prescribed. I stressed the importance of the patient following up with his primary care provider. I stressed the importance of the patient returning to the emergency department immediately if his symptoms were to worsen or if he were to develop any dizziness, shortness of breath, difficulty breathing, chest pain, blurry vision, loss of vision, nausea, vomiting, abdominal pain, fever, chills, back pain, or any other complaints. Patient verbalized agreement and understanding with this treatment plan and discharge. <PANKAJ Chatman - Last Filed: 11/20/22 08:30> Differential Diagnosis Differential Diagnoses: The differential diagnosis associated with the presentation includes <PANKAJ Chatman - Last Filed: 11/20/22 08:30> chronic SI, bilateral lower leg sweeling <PANKAJ Chatman - Last Filed: 11/20/22 08:30> Lab Data [facility] Lab Attestation statement: I reviewed the patient's lab results. <PANKAJ Chatman - Last Filed: 11/20/22 08:30> Result Diagrams: 11/19/22 15:17 11/19/22 15:17 <PANKAJ Chatman - Last Filed: 11/20/22 08:30> Labs: Lab Results 11/19/22 11/19/22 11/19/22 Range/Units 13:45 13:45 15:17 WBC 5.0 (4.8-10.8) X10*3/uL RBC 3.93 L (4.60-5.80) X10*6/uL Hgb 11.9 L (14.0-18.0) g/dl Hct 35.2 L (42.0-52.0) % MCV 89.6 (80.0-98.0) fL MCH 30.3 (27.0-33.0) pg MCHC 33.8 (31.0-36.0) g/dl RDW 12.3 (11.0-16.0) % Plt Count 122 L (160-400) X10*3/uL MPV 10.1 (9.4-12.4) fL Immature Gran % (Auto) 0.4 (0.0-0.4) % Neut % (Auto) 59.2 (45-73) % Lymph % (Auto) 31.5 (20-40) % Bertie % (Auto) 7.7 (2-11) % Eos % (Auto) 0.8 (0-4) % Baso % (Auto) 0.4 (0-2) % Lymph # (Auto) 1.6 (1.2-4.9) X10*3/uL Bertie # (Auto) 0.4 (0.1-1.2) X10*3/uL Eos # (Auto) 0.0 (0.0-0.4) X10*3/uL Baso # (Auto) 0.0 (0.0-0.2) X10*3/uL Abs Immat Gran (auto) 0.02 (0.00-0.03) X10*3/uL Absolute Neuts (auto) 3.0 (2.0-8.3) x10*3/uL Absolute Nucleated RBC 0.000 (0.0-0.012) X10*3/uL Nucleated RBC % (auto) 0.0 (0.0-0.2) /100WBC Sodium (135-145) mmol/L Potassium (3.3-5.1) mmol/L Chloride (96-108) mmol/L Carbon Dioxide (22-29) mmol/L Anion Gap (12-20) BUN (9-16) mg/dL Creatinine (0.5-1.4) mg/dL Estim Creat Clear Calc Estimated GFR Random Glucose (60-115) mg/dL Calcium (8.4-10.2) mg/dL Total Bilirubin (0.0-1.0) mg/dL AST (5-37) U/L ALT (0-40) U/L Alkaline Phosphatase (39-117) U/L Total Protein (6.5-8.0) g/dL Albumin (3.5-5.0) g/dL Urine Opiates Screen Not Detected (Not Detect) Urine Fentanyl Screen Not Detected (Not Detect) Ur Barbiturates Screen Not Detected (Not Detect) Ur Phencyclidine Scrn Not Detected (Not Detect) Ur Amphetamines Screen Not Detected (Not Detect) U Benzodiazepines Scrn Not Detected (Not Detect) Urine Cocaine Screen Not Detected (Not Detect) U Marijuana (THC) Screen Not Detected (Not Detect) Influenza Type A (PCR) NEGATIVE (Negative) Influenza Type B (PCR) NEGATIVE (Negative) RSV RNA Qual (PCR) NEGATIVE (Negative) SARS-CoV-2 RNA (RT-PCR) NEGATIVE (Negative) 11/19/22 Range/Units 15:17 WBC (4.8-10.8) X10*3/uL RBC (4.60-5.80) X10*6/uL Hgb (14.0-18.0) g/dl Hct (42.0-52.0) % MCV (80.0-98.0) fL MCH (27.0-33.0) pg MCHC (31.0-36.0) g/dl RDW (11.0-16.0) % Plt Count (160-400) X10*3/uL MPV (9.4-12.4) fL Immature Gran % (Auto) (0.0-0.4) % Neut % (Auto) (45-73) % Lymph % (Auto) (20-40) % Bertie % (Auto) (2-11) % Eos % (Auto) (0-4) % Baso % (Auto) (0-2) % Lymph # (Auto) (1.2-4.9) X10*3/uL Bertie # (Auto) (0.1-1.2) X10*3/uL Eos # (Auto) (0.0-0.4) X10*3/uL Baso # (Auto) (0.0-0.2) X10*3/uL Abs Immat Gran (auto) (0.00-0.03) X10*3/uL Absolute Neuts (auto) (2.0-8.3) x10*3/uL Absolute Nucleated RBC (0.0-0.012) X10*3/uL Nucleated RBC % (auto) (0.0-0.2) /100WBC Sodium 140 (135-145) mmol/L Potassium 4.6 (3.3-5.1) mmol/L Chloride 107 (96-108) mmol/L Carbon Dioxide 24 (22-29) mmol/L Anion Gap 14 (12-20) BUN 29 H (9-16) mg/dL Creatinine 1.15 (0.5-1.4) mg/dL Estim Creat Clear Calc 91.1 Estimated GFR > 60 Random Glucose 128 H (60-115) mg/dL Calcium 9.2 (8.4-10.2) mg/dL Total Bilirubin 0.4 (0.0-1.0) mg/dL AST 28 (5-37) U/L ALT 20 (0-40) U/L Alkaline Phosphatase 94 (39-117) U/L Total Protein 6.7 (6.5-8.0) g/dL Albumin 3.8 (3.5-5.0) g/dL Urine Opiates Screen (Not Detect) Urine Fentanyl Screen (Not Detect) Ur Barbiturates Screen (Not Detect) Ur Phencyclidine Scrn (Not Detect) Ur Amphetamines Screen (Not Detect) U Benzodiazepines Scrn (Not Detect) Urine Cocaine Screen (Not Detect) U Marijuana (THC) Screen (Not Detect) Influenza Type A (PCR) (Negative) Influenza Type B (PCR) (Negative) RSV RNA Qual (PCR) (Negative) SARS-CoV-2 RNA (RT-PCR) (Negative) <PANKAJ Chatman - Last Filed: 11/20/22 08:30> Lab Results 11/19/22 11/19/22 11/19/22 Range/Units 13:45 13:45 15:17 WBC 5.0 (4.8-10.8) X10*3/uL RBC 3.93 L (4.60-5.80) X10*6/uL Hgb 11.9 L (14.0-18.0) g/dl Hct 35.2 L (42.0-52.0) % MCV 89.6 (80.0-98.0) fL MCH 30.3 (27.0-33.0) pg MCHC 33.8 (31.0-36.0) g/dl RDW 12.3 (11.0-16.0) % Plt Count 122 L (160-400) X10*3/uL MPV 10.1 (9.4-12.4) fL Immature Gran % (Auto) 0.4 (0.0-0.4) % Neut % (Auto) 59.2 (45-73) % Lymph % (Auto) 31.5 (20-40) % Bertie % (Auto) 7.7 (2-11) % Eos % (Auto) 0.8 (0-4) % Baso % (Auto) 0.4 (0-2) % Lymph # (Auto) 1.6 (1.2-4.9) X10*3/uL Bertie # (Auto) 0.4 (0.1-1.2) X10*3/uL Eos # (Auto) 0.0 (0.0-0.4) X10*3/uL Baso # (Auto) 0.0 (0.0-0.2) X10*3/uL Abs Immat Gran (auto) 0.02 (0.00-0.03) X10*3/uL Absolute Neuts (auto) 3.0 (2.0-8.3) x10*3/uL Absolute Nucleated RBC 0.000 (0.0-0.012) X10*3/uL Nucleated RBC % (auto) 0.0 (0.0-0.2) /100WBC Sodium (135-145) mmol/L Potassium (3.3-5.1) mmol/L Chloride (96-108) mmol/L Carbon Dioxide (22-29) mmol/L Anion Gap (12-20) BUN (9-16) mg/dL Creatinine (0.5-1.4) mg/dL Estim Creat Clear Calc Estimated GFR Random Glucose (60-115) mg/dL Calcium (8.4-10.2) mg/dL Total Bilirubin (0.0-1.0) mg/dL AST (5-37) U/L ALT (0-40) U/L Alkaline Phosphatase (39-117) U/L Total Protein (6.5-8.0) g/dL Albumin (3.5-5.0) g/dL Urine Opiates Screen Not Detected (Not Detect) Urine Fentanyl Screen Not Detected (Not Detect) Ur Barbiturates Screen Not Detected (Not Detect) Ur Phencyclidine Scrn Not Detected (Not Detect) Ur Amphetamines Screen Not Detected (Not Detect) U Benzodiazepines Scrn Not Detected (Not Detect) Urine Cocaine Screen Not Detected (Not Detect) U Marijuana (THC) Screen Not Detected (Not Detect) Influenza Type A (PCR) NEGATIVE (Negative) Influenza Type B (PCR) NEGATIVE (Negative) RSV RNA Qual (PCR) NEGATIVE (Negative) SARS-CoV-2 RNA (RT-PCR) NEGATIVE (Negative) 11/19/22 Range/Units 15:17 WBC (4.8-10.8) X10*3/uL RBC (4.60-5.80) X10*6/uL Hgb (14.0-18.0) g/dl Hct (42.0-52.0) % MCV (80.0-98.0) fL MCH (27.0-33.0) pg MCHC (31.0-36.0) g/dl RDW (11.0-16.0) % Plt Count (160-400) X10*3/uL MPV (9.4-12.4) fL Immature Gran % (Auto) (0.0-0.4) % Neut % (Auto) (45-73) % Lymph % (Auto) (20-40) % Bertie % (Auto) (2-11) % Eos % (Auto) (0-4) % Baso % (Auto) (0-2) % Lymph # (Auto) (1.2-4.9) X10*3/uL Bertie # (Auto) (0.1-1.2) X10*3/uL Eos # (Auto) (0.0-0.4) X10*3/uL Baso # (Auto) (0.0-0.2) X10*3/uL Abs Immat Gran (auto) (0.00-0.03) X10*3/uL Absolute Neuts (auto) (2.0-8.3) x10*3/uL Absolute Nucleated RBC (0.0-0.012) X10*3/uL Nucleated RBC % (auto) (0.0-0.2) /100WBC Sodium 140 (135-145) mmol/L Potassium 4.6 (3.3-5.1) mmol/L Chloride 107 (96-108) mmol/L Carbon Dioxide 24 (22-29) mmol/L Anion Gap 14 (12-20) BUN 29 H (9-16) mg/dL Creatinine 1.15 (0.5-1.4) mg/dL Estim Creat Clear Calc 91.1 Estimated GFR > 60 Random Glucose 128 H (60-115) mg/dL Calcium 9.2 (8.4-10.2) mg/dL Total Bilirubin 0.4 (0.0-1.0) mg/dL AST 28 (5-37) U/L ALT 20 (0-40) U/L Alkaline Phosphatase 94 (39-117) U/L Total Protein 6.7 (6.5-8.0) g/dL Albumin 3.8 (3.5-5.0) g/dL Urine Opiates Screen (Not Detect) Urine Fentanyl Screen (Not Detect) Ur Barbiturates Screen (Not Detect) Ur Phencyclidine Scrn (Not Detect) Ur Amphetamines Screen (Not Detect) U Benzodiazepines Scrn (Not Detect) Urine Cocaine Screen (Not Detect) U Marijuana (THC) Screen (Not Detect) Influenza Type A (PCR) (Negative) Influenza Type B (PCR) (Negative) RSV RNA Qual (PCR) (Negative) SARS-CoV-2 RNA (RT-PCR) (Negative) <Elza Hines NP - Last Filed: 11/19/22 18:06> Radiology Impression Radiologist Impression: My interpretation is in agreement with the radiologist's impression of this imaging study. EXAMINATION:? US VENOUS ULTRASOUND WITH DOPPLER LOWER EXTREMITY, BILATERAL CLINICAL INFORMATION:? Bilateral lower extremity edema and pain COMPARISON:? Left lower extremity DVT study 10/24/2009 TECHNIQUE: Ultrasound of the deep veins is performed from the hip to the calf with compression sonography and color and pulse Doppler assessment. Spectral analysis with color-flow imaging is performed. FINDINGS: RIGHT: There is normal venous compression and respiratory variation and augmented flow. The visualized common femoral vein, superficial femoral vein, profunda femoral vein, popliteal vein, and the trifurcation region shows no evidence of deep venous thrombosis. ? There is no significant popliteal fossa cyst. LEFT: There is normal venous compression and respiratory variation and augmented flow. The visualized common femoral vein, superficial femoral vein, profunda femoral vein, popliteal vein, and the trifurcation region shows no evidence of deep venous thrombosis. ? There is no significant popliteal fossa cyst. If the patient's symptoms persist, followup ultrasound in 5 days 7 days might be of value to exclude proximal propagation from a non-visualized calf vein. US/US venous duplex LE BI IMPRESSION: No DVT demonstrated in either lower extremity. Dictated By: Zhao Rosenthal MD Signed By: Electronically signed by Zhao Rosenthal MD 11/19/22 [id number] <PANKAJ Chatman - Last Filed: 11/20/22 08:30> Discharge Plan Discharge Clinical Impression: Leg swelling, Suicidal thoughts <PANKAJ Chatman - Last Filed: 11/20/22 08:30> Patient Disposition: Home, Self-Care <PANKAJ Chatman - Last Filed: 11/20/22 08:30> Additional Instructions: Follow up with your primary care provider. Return to the emergency department immediately if your symptoms worsen or if you develop any dizziness, shortness of breath, difficulty breathing, chest pain, blurry vision, loss of vision, nausea, vomiting, abdominal pain, fever, chills, back pain, or any other complaints. <PANKAJ Chatman - Last Filed: 11/20/22 08:30> Prescriptions: No Action divalproex [Depakote ER] 500 mg tablet extended release 24 hr 1,000 mg PO BID Rx Instructions: Take two tabs by mouth twice a day nut.therapy,urea cycle disordr 15 gram-393 kcal/100 gram powder 1 ea PO BID Qty: 400 0RF Rx Instructions: Dissolved one packet of 15 gm into 8 oz of fluids and give by mouth every morning. simethicone [Gas Relief (simethicone)] 125 mg capsule 125 mg PO TID-QID PRN (Reason: Gastrointestinal Spasms Or Cramping) Rx Instructions: Take 1 capsule by mouth up to four times a day as needed for abdominal distension. ondansetron 4 mg tablet,disintegrating 4 mg PO Q6H PRN (Reason: Nausea) Qty: 20 3RF Pepto-Bismol 262 mg tablet 2 tab PO QID PRN (Reason: diarrhea) 3 Days Qty: 24 0RF (DME) OneTouch Ultra Test Strip See Rx Instructions .Route Qty: 100 11RF Rx Instructions: Test blood sugar 3 times a day as directed cholecalciferol (vitamin D3) 25 mcg (1,000 unit) tablet 25 mcg PO DAILY Qty: 90 3RF cyanocobalamin (vitamin B-12) 1,000 mcg tablet 1,000 mcg PO DAILY@2000 Qty: 90 3RF fluticasone propion-salmeterol [Advair Diskus] 250-50 mcg/dose blister with device 1 inh inhalation BID Qty: 60 12RF Ure-Na 15 gram powder in packet 1 packet PO DAILY 30 Days Qty: 8 11RF acetaminophen 325 mg tablet 650 mg PO Q4H PRN (Reason: fever or pain) 90 Days Qty: 180 2RF (DME) blood sugar diagnostic Strip See Rx Instructions .ROUTE .MEDSUPPLY Qty: 100 3RF Rx Instructions: As directed check the blood sugar once a day hydralazine 50 mg tablet 50 mg PO TID 90 Days Qty: 270 2RF diphenoxylate-atropine [Lomotil] 2.5-0.025 mg tablet 2 tab PO TID PRN (Reason: Diarrhea) Qty: 60 1RF albuterol sulfate 90 mcg/actuation HFA aerosol inhaler 2 puff INHALATION Q6H PRN (Reason: Wheezing) Qty: 8.5 0RF lactase [Lactaid] 3,000 unit tablet 3,000 unit PO .QD PRN (Reason: lactose intolerance) Qty: 90 3RF Rx Instructions: take at the start of drinking milk only propranolol 20 mg tablet 20 mg PO TID@0800,1600,2000 90 Days Qty: 270 3RF atorvastatin 10 mg tablet 10 mg PO BEDTIME Qty: 90 3RF Dexilant 60 mg capsule,biphase delayed releas 60 mg PO BEDTIME Qty: 90 3RF metformin 500 mg tablet 500 mg PO BID Qty: 180 3RF furosemide [Lasix] 20 mg tablet 20 mg PO Q OTHER DAY Qty: 45 2RF ferrous sulfate 325 mg (65 mg iron) Tablet 325 mg PO BID Qty: 60 4RF gabapentin 100 mg capsule 200 mg PO BID risperidone 3 mg tablet 1 tab PO BID aspirin 81 mg Tablet 81 mg PO DAILY lisinopril 20 mg tablet 1 tab PO DAILY fluticasone propionate 50 mcg/actuation spray,suspension 2 spray INTRANASAL BID (DME) compress.stocking,knee,reg,lrg Misc See Rx Instructions .Route Qty: 12 0RF Rx Instructions: As directed Citrucel 500 mg tablet 500 mg PO DAILY Qty: 90 3RF Rx Instructions: Take one tablet by mouth daily in the morning. polyethylene glycol 3350 [Miralax] 17 gram/dose powder 17 g PO DAILY Qty: 510 2RF sennosides [Natural Senna Laxative] 8.6 mg tablet 8.6 mg PO BEDTIME Qty: 90 3RF <PANKAJ Chatman - Last Filed: 11/20/22 08:30> Referrals: Po,Robert Downing MD [Primary Care Provider] - <PANKAJ Chatman - Last Filed: 11/20/22 08:30> Interventions: [place]-Suicide Risk Severity Scale Last Done: 11/19/22 13:35 ED Discharge Assessment Last Done: 11/19/22 18:30 <PANKAJ Chatman - Last Filed: 11/20/22 08:30> Discharge Date/Time: 11/19/22 18:32 <PANKAJ Chatman - Last Filed: 11/20/22 08:30>
[2022-11-19 14:14] LABS: Amphetamine Screen Urine Not Detected (Not Detect); Barbiturates, Urine Not Detected (Not Detect); Benzodiazepines Screen Urine Not Detected (Not Detect); Cannabinoid Screen Urine Not Detected (Not Detect); Cocaine Screen Urine Not Detected (Not Detect); Fentanyl, urine Not Detected (Not Detect); Opiate Screen Urine Not Detected (Not Detect); Phencyclidine Screen Urine Not Detected (Not Detect)
[2022-11-19 14:42] LABS: Influenza A PCR NEGATIVE (Negative); Influenza B PCR NEGATIVE (Negative); Resp Syncy Virus RNA Qual PCR NEGATIVE (Negative); SARS COV2 PCR INHOUSE NEGATIVE (Negative)
--- NOTE | 2022-11-19 15:18 | MHC.CARE ---
CARE team support requested for a 52 year old single, white, Swedish speaking, cisgender male, known to the CARE sherrie from previous ED visits, who arrived to the ED via ambulance on a Section 12 by Debbie PAZ from an urgent care office after the pt made vague suicidal and homicidal statements to the practitioner. Pt is diagnosed with a cognitive delay and developmental disability and this is a typical presentation for him. This caption writer communicated with Janie Toribio ([phone]) cnc machine programmer of the pt's [facility]. She shared that the pt went to urgent care today for evaluation of a swollen leg that was noticed by the program nurse this morning and they wanted to rule out fluid retention, as he is diagnosed with diabetes. At the beginning of the examination the pt endorsed SI/HI. The staff accompanying the pt explained that this is behavioral and in response to the different environment and unfamiliar treatment provider, however the practitioner contacted EMS and pt was transported to the hospital. She shared that if he had seen his regular doctor that they would have understood that this is baseline commentary that the pt makes. She has no concerns re: the pt's safety and reported that he is well supported and monitored in and out of the program. She did request that the pt be examined while he is at the hospital to rule out or treat any fluid build up in his legs, and when pt is ready to discharge from the ED to contact her again so staff can come pick him up. ED provider updated re: concerns for possible fluid build up and recommendation for discharge back to program once medically cleared.
[2022-11-19 15:20] VITALS: BP 155/95; PULSE 68; RESP 20; TEMP 36.4; O2SAT 97
[2022-11-19] MEDS: Propranolol HCL 20 MG TABLET PO (15:22)
[2022-11-19] MEDS: hydrALAZINE HCl 50 MG TABLET PO (15:22)
[2022-11-19 15:23] LABS: MANUAL DIFF FLAG NO
[2022-11-19 15:30] LABS: Basophils Percent Auto 0.4 % (0-2); Eosinophils Percent Auto 0.8 % (0-4); Hematocrit 35.2 % (42.0-52.0); Hemoglobin 11.9 g/dl (14.0-18.0); Imm Gran Abs Auto 0.02 X10*3/uL (0.00-0.03); Imm Gran Pct Auto 0.4 % (0.0-0.4); Lymphocytes Absolute Auto 1.6 X10*3/uL (1.2-4.9); Lymphocytes Percent Auto 31.5 % (20-40); Mean Corpuscular HGB Conc 33.8 g/dl (31.0-36.0); Mean Corpuscular Hemoglobin 30.3 pg (27.0-33.0); Mean Corpuscular Volume 89.6 fL (80.0-98.0); Mean Platelet Volume 10.1 fL (9.4-12.4); Monocytes Absolute Auto 0.4 X10*3/uL (0.1-1.2); Monocytes Percent Auto 7.7 % (2-11); Neutrophils Percent Auto 59.2 % (45-73); Platelet Count 122 X10*3/uL (160-400); Red Blood Count 3.93 X10*6/uL (4.60-5.80); Red Cell Distribution Width 12.3 % (11.0-16.0)
[2022-11-19 15:59] LABS: Alanine Aminotransferase 20 U/L (0-40); Albumin Level 3.8 g/dL (3.5-5.0); Alkaline Phosphatase 94 U/L (39-117); Anion Gap 14 (12-20); Aspartate Amino Transferase 28 U/L (5-37); Bilirubin Total 0.4 mg/dL (0.0-1.0); Blood Urea Nitrogen 29 mg/dL (9-16); Calcium 9.2 mg/dL (8.4-10.2); Carbon Dioxide 24 mmol/L (22-29); Chloride 107 mmol/L (96-108); Creatinine Clr Calc Pharmacy 91.1; Estimated Glomerular Filt Rate > 60; Glucose Random 128 mg/dL (60-115); Potassium 4.6 mmol/L (3.3-5.1); Sodium 140 mmol/L (135-145); Total Protein 6.7 g/dL (6.5-8.0)
== END 2022-11-19 18:32 | disposition home or self-care (01) ==
PROVIDERS: Emergency Provider Emergency Medicine Emergency Medical Services; PCP Internal Medicine
DX: R45.851 Suicidal ideations (principal); R60.0 Localized edema; F41.9 Anxiety disorder, unspecified; E11.9 Type 2 diabetes mellitus without complications; I10 Essential (primary) hypertension; E78.5 Hyperlipidemia, unspecified; I48.91 Unspecified atrial fibrillation; D64.9 Anemia, unspecified; J45.909 Unspecified asthma, uncomplicated; E66.9 Obesity, unspecified; Z68.41 Body mass index [BMI] 40.0-44.9, adult; Z20.822 Contact with and (suspected) exposure to COVID-19; Z79.899 Other long term (current) drug therapy; Z79.84 Long term (current) use of oral hypoglycemic drugs; Z79.02 Long term (current) use of antithrombotics/antiplatelets; Z79.82 Long term (current) use of aspirin
CPT/HCPCS: 0241U; 80053; 80307; 85025; 93970; 99284

== ENCOUNTER 2022-12-24 12:00 | Emergency (ER) | payer MEDICARE, MEDICAID, SELFPAY ==
[2022-12-24 12:21] VITALS: BP 134/72; BP 158/82; PULSE 100; PULSE 96; RESP 16; TEMP 36.9; O2SAT 100; O2SAT 97; BMI 43.9
[2022-12-24 12:21] LABS: Glucose, Whole Blood 274 mg/dL (60-115)
--- NOTE | 2022-12-24 13:11 | PC.NURSE ---
pt changed over into Chuckie. pt with 1:1 staff at bedside. pt at times attempting to hit his head against the counter of the nurses station, reporting SI, states the voices are telling him to do so. at times hands on intervention required to redirect pt. staff moved pts stretcher away from the counter top. offered coping mechanisms including warm blanket and ice. CARE team at bedside at this time to see pt
--- NOTE | 2022-12-24 13:16 | ED_ITS ---
HPI - Psych General Chief Complaint: General Medical Stated Complaint: HIGH BS 340 PER EMS Time Seen by Provider: 12/24/22 12:35 Source: patient Mode of arrival: EMS Limitations: no limitations History of Present Illness HPI Narrative: 52 yo male with PMH of GERD, abdomina pain, DM, chronic chest pain, RLQ pain, cognitive delay, HTN, schizophrenia brought to the ED because he states his blood sugar was 400 this AM now in 200s after taking his medications and then went to therapy now has auditory hallucinations and wants to talk to CARE team. States therapy went well and he feels fine. MD complaint: feels depressed and hallucinations Onset (ago): hour(s) (1) History of same: Yes Relieving factors: none Exacerbating factors: none Associated psychiatric symptoms: depression Associated symptoms: denies other symptoms Treatments prior to arrival: none If self harm: other (vague SI) Related Data Home Medications Medication Instructions Recorded Confirmed gabapentin 100 mg capsule 200 mg PO BID 06/23/21 11/19/22 risperidone 3 mg tablet 1 tab PO BID 06/23/21 11/19/22 divalproex 500 mg tablet,extended 1,000 mg PO BID 09/28/21 11/19/22 release 24 hr (Depakote ER) simethicone 125 mg capsule (Gas 125 mg PO TID-QID PRN 09/28/21 11/19/22 Relief (simethicone)) Gastrointestinal Spasms Or Cramping aspirin 81 mg tablet 81 mg PO DAILY 06/27/22 10/11/22 fluticasone propionate 50 2 spray intranasal BID 11/19/22 11/19/22 mcg/actuation nasal spray,suspension lisinopril 20 mg tablet 1 tab PO DAILY 11/19/22 11/19/22 Previous Rx's Medication Instructions Recorded nut.therapy,urea cycle disordr 15 1 ea PO BID #400 grams 09/28/21 gram-393 kcal/100 gram oral pwdr ondansetron 4 mg disintegrating 4 mg PO Q6H PRN Nausea #20 tabs 10/22/21 tablet bismuth subsalicylate 262 mg 2 tab PO QID PRN diarrhea 3 days 11/28/21 tablet (Pepto-Bismol) #24 tabs blood sugar diagnostic (OneTouch #100 ea 12/17/21 Ultra Test strips) cyanocobalamin (vitamin B-12) 1,000 mcg PO DAILY@1999 #90 tabs 01/16/22 1,000 mcg tablet fluticasone 250 mcg-salmeterol 50 1 inh inhalation BID #60 ea 02/20/22 mcg/dose blistr powdr for inhalation (Advair Diskus) urea 15 gram oral powder packet 1 packet PO DAILY 30 days #8 ea 02/20/22 (Ure-Na) methylcellulose (laxative) 500 mg 500 mg PO DAILY #90 tabs 05/22/22 tablet (Citrucel) acetaminophen 325 mg tablet 650 mg PO Q4H PRN fever or pain 90 06/11/22 days #180 tabs blood sugar diagnostic #100 ea 08/01/22 hydralazine 50 mg tablet 50 mg PO TID 90 days #270 tabs 08/28/22 ferrous sulfate 325 mg (65 mg 325 mg PO BID #60 tabs 08/29/22 iron) tablet compress.stocking,knee,reg,lrg #12 ea 09/02/22 polyethylene glycol 3350 17 17 g PO DAILY #510 grams 10/09/22 gram/dose oral powder (Miralax) sennosides 8.6 mg tablet (Natural 8.6 mg PO BEDTIME constipation #90 10/09/22 Senna Laxative) tabs albuterol sulfate 90 mcg/actuation 2 puff inhalation Q6H PRN Wheezing 10/14/22 aerosol inhaler #8.5 grams lactase 3,000 unit tablet (Lactaid) 3,000 unit PO .QD PRN lactose 10/14/22 intolerance #90 tabs atorvastatin 10 mg tablet 10 mg PO BEDTIME #90 tabs 10/25/22 dexlansoprazole 60 mg 60 mg PO BEDTIME #90 caps 10/25/22 capsule,biphase delayed release (Dexilant) furosemide 20 mg tablet (Lasix) 20 mg PO Q OTHER DAY #45 tabs 10/25/22 metformin 500 mg tablet 500 mg PO BID #180 tabs 10/25/22 propranolol 20 mg tablet 20 mg PO TID@0800,1600,1999 90 10/25/22 days #270 tabs cholecalciferol (vitamin D3) 25 25 mcg PO DAILY #90 tabs 11/23/22 mcg (1,000 unit) tablet empagliflozin 10 mg tablet 10 mg PO DAILY #30 tabs 02/06/23 (Jardiance) diphenoxylate-atropine 2.5 2 tab PO TID PRN Diarrhea #60 tabs 12/17/22 mg-0.025 mg tablet (Lomotil) Allergies Allergy/AdvReac Type Severity Reaction Status Date / Time Sulfa (Sulfonamide Allergy Severe CHAVEZ Verified 12/16/22 10:22 Antibiotics) ALICIA REACTION, Chavez Alicia trimethoprim Allergy Mild UNKNOWN Verified 12/16/22 10:22 lactose AdvReac Mild STOMACH Verified 12/16/22 10:22 UPSET Review of Systems Review of Systems: Constitutional : No Fever, No Chills ENT/Mouth : No Ear Pain, No Nasal Congestion, No sore throat Eyes: No Eye Pain, No Swelling, No Redness Cardiovascular : No Chest Pain, No SOB Respiratory : No Cough, No Sputum, No Dyspnea Gastrointestinal : No Nausea, No Vomiting, No Diarrhea, No Hematochezia, No Melena Genitourinary : No Dysuria, No Urinary Frequency, No Hematuria Musculoskeletal : No Myalgias Skin : No Skin Lesions, No rash Neuro : No Weakness, No Numbness, No Paresthesias, No Dizziness, No Headache Psych : positive Anxiety, positive Depression, vague SI with AH no VH no HI Heme/Lymph: No Lymphadenopathy Endocrine : No Polyuria, No Polydipsia All other systems reviewed and are negative PMFSH Past Medical History Attestation statement: The following information was validated with the patient. Medical History A-fib Abdominal pain Abnormal EKG Acute kidney injury Anemia Annual physical exam Anxiety Arrhythmia Asthma Atrial fib/flutter, transient Atrial flutter Back pain Back pain Cerebellar ataxia Contusion of left ankle Essential hypertension Fall Gait instability Hospital discharge follow-up Hyperlipidemia LDL goal <100 Hypertension Hyponatremia Lactose intolerance Left-sided chest pain Mental disability Musculoskeletal chest pain Positive colorectal cancer screening using Cologuard test Precordial chest pain Proteinuria Right ankle pain Seizure disorder Type 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 Vertigo Surgical History History of orchiectomy Hx of colonoscopy Family History Family History Father Myocardial infarction CVD (cardiovascular disease) Diabetes mellitus Mother Diabetes mellitus HTN (hypertension) Brother In good health Sister In good health Social History Social History Household Members: Other Household Members Other:: from [facility] Housing: Other Housing Other:: [facility] Do you presently have visiting nurse or other home services: Yes Alcohol intake: never Patient Tobacco Use Status: Never used Tobacco Smoked in Last 30 Days: No e-Cigarette/Vaping Use: Never Used Second Hand Smoke Exposure: No Use of substances other than those prescribed or required for medical reasons: No Advance Directives: No Advance Directives Information Provided: Yes Advance Directives Date on File: 05/23/21 service: No Current occupational status: disabled Cognitive needs: Yes (walker) Hearing needs: No Vision needs: Yes (glasses) Physical Exam Vital Signs: Vital Signs: Last Vital Signs Temp 98.5 F 12/24/22 12:21 Pulse 96 12/24/22 12:21 Resp 16 12/24/22 12:21 BP 158/82 H 12/24/22 12:21 Pulse Ox 97 12/24/22 12:21 O2 Del Method 12/24/22 12:21 BMI result Body Mass Index 43.9 Appearance: Alert. Oriented X3. No acute distress. Eyes: Pupils equal, round and reactive to light. ENT: Pharynx normal. Neck: Normal inspection. Neck supple. CVS: Normal heart rate and rhythm. Pulses normal. Respiratory: No respiratory distress. Breath sounds normal. Abdomen: Soft and nontender. Obese Skin: Skin warm and dry. Normal skin color. Normal skin turgor. Extremities: No lower extremity edema. No calf ttp Neuro: Oriented X 3. No motor deficit. No sensory deficit. Course Course Course Narrative: cleared by CARE team Medical Decision Making Medical Decision Making MDM Narrative: 52 yo male with PMH of GERD, abdomina pain, DM, chronic chest pain, RLQ pain, cognitive delay, HTN, schizophrenia here with c/o blood sugar that was elevated earlier without other complaints now AH with depression and vague thoughts of it telling him to hurt himself. Low risk - will involve CARE team. No concerns at this time. Differential Diagnosis Differential Diagnoses: The differential diagnosis associated with the presentation includes chronic schizophrenia, diabetes, social support seeking behaviors Lab Data [facility] Lab Attestation statement: I reviewed the patient's lab results. Labs: Lab Results 12/24/22 Range/Units 12:17 POC Glucose 274 H (60-115) mg/dL Independent Historian Clinical information obtained from an independent historian. History obtained from or confirmed by: EMS and Other External Record Review External record reviewed: Inpatient record Social Determinants Patient?s care significantly limited by Social Determinants of Health including: Other Social Determinant of Health Discharge Plan Discharge Clinical Impression: Schizophrenia Qualifiers: Schizophrenia type: unspecified Qualified Code(s): F20.9 - Schizophrenia, unspecified Patient Disposition: Home, Self-Care Instructions: Schizophrenia (ED) Additional Instructions: return to ED for any worsening symptoms or concerns please follow up with your mental health providers Prescriptions: No Action divalproex [Depakote ER] 500 mg tablet extended release 24 hr 1,000 mg PO BID Rx Instructions: Take two tabs by mouth twice a day nut.therapy,urea cycle disordr 15 gram-393 kcal/100 gram powder 1 ea PO BID Qty: 400 0RF Rx Instructions: Dissolved one packet of 15 gm into 8 oz of fluids and give by mouth every morning. simethicone [Gas Relief (simethicone)] 125 mg capsule 125 mg PO TID-QID PRN (Reason: Gastrointestinal Spasms Or Cramping) Rx Instructions: Take 1 capsule by mouth up to four times a day as needed for abdominal distension. ondansetron 4 mg tablet,disintegrating 4 mg PO Q6H PRN (Reason: Nausea) Qty: 20 3RF Pepto-Bismol 262 mg tablet 2 tab PO QID PRN (Reason: diarrhea) 3 Days Qty: 24 0RF (DME) OneTouch Ultra Test Strip See Rx Instructions .Route Qty: 100 11RF Rx Instructions: Test blood sugar 3 times a day as directed cyanocobalamin (vitamin B-12) 1,000 mcg tablet 1,000 mcg PO DAILY@2000 Qty: 90 3RF fluticasone propion-salmeterol [Advair Diskus] 250-50 mcg/dose blister with device 1 inh inhalation BID Qty: 60 12RF Ure-Na 15 gram powder in packet 1 packet PO DAILY 30 Days Qty: 8 11RF acetaminophen 325 mg tablet 650 mg PO Q4H PRN (Reason: fever or pain) 90 Days Qty: 180 2RF (DME) blood sugar diagnostic Strip See Rx Instructions .ROUTE .MEDSUPPLY Qty: 100 3RF Rx Instructions: As directed check the blood sugar once a day hydralazine 50 mg tablet 50 mg PO TID 90 Days Qty: 270 2RF albuterol sulfate 90 mcg/actuation HFA aerosol inhaler 2 puff INHALATION Q6H PRN (Reason: Wheezing) Qty: 8.5 0RF lactase [Lactaid] 3,000 unit tablet 3,000 unit PO .QD PRN (Reason: lactose intolerance) Qty: 90 3RF Rx Instructions: take at the start of drinking milk only propranolol 20 mg tablet 20 mg PO TID@0800,1600,2000 90 Days Qty: 270 3RF atorvastatin 10 mg tablet 10 mg PO BEDTIME Qty: 90 3RF Dexilant 60 mg capsule,biphase delayed releas 60 mg PO BEDTIME Qty: 90 3RF metformin 500 mg tablet 500 mg PO BID Qty: 180 3RF furosemide [Lasix] 20 mg tablet 20 mg PO Q OTHER DAY Qty: 45 2RF cholecalciferol (vitamin D3) 25 mcg (1,000 unit) tablet 25 mcg PO DAILY Qty: 90 3RF diphenoxylate-atropine [Lomotil] 2.5-0.025 mg tablet 2 tab PO TID PRN (Reason: Diarrhea) Qty: 60 1RF ferrous sulfate 325 mg (65 mg iron) Tablet 325 mg PO BID Qty: 60 4RF gabapentin 100 mg capsule 200 mg PO BID risperidone 3 mg tablet 1 tab PO BID aspirin 81 mg Tablet 81 mg PO DAILY lisinopril 20 mg tablet 1 tab PO DAILY fluticasone propionate 50 mcg/actuation spray,suspension 2 spray INTRANASAL BID (DME) compress.stocking,knee,reg,lrg Misc See Rx Instructions .Route Qty: 12 0RF Rx Instructions: As directed Jardiance 10 mg tablet 10 mg PO DAILY Qty: 30 4RF Citrucel 500 mg tablet 500 mg PO DAILY Qty: 90 3RF Rx Instructions: Take one tablet by mouth daily in the morning. polyethylene glycol 3350 [Miralax] 17 gram/dose powder 17 g PO DAILY Qty: 510 2RF sennosides [Natural Senna Laxative] 8.6 mg tablet 8.6 mg PO BEDTIME Qty: 90 3RF
--- NOTE | 2022-12-24 14:11 | MHC.CARE ---
Patient came to the ED at [facility] today by ambulance called to his senior living after a severe drop in blood sugar (which correlated with taking medication).CARE Team consulted after patient told the provider he was hearing voices. Apparently saw his therapist this morning prior to arrival and at that time he was not in crisis but she encouraged him to have his blood sugar checked after he mentioned concerns to her. CARE Team spoke to patient in bed 13H, he was alert and oriented, somewhat difficult to engage, kept his eyes down and spoke in a monotone voice and stated several times that he wanted to be hospitalized at [facility] because he liked it there. Said he did not feel safe and that the voices (male and female voices) told him to hurt himself, no precipitant identified. Patient admitted that his blood sugar increase could be causing his anxiety, requested lunch and was provided with a low sugar snack. Staff at bedside was supportive and encouraging, talked about doing fun things when patient receives his weekly check tomorrow. Patient appears to be at his known baseline, he frequently makes suicidal statements after presenting to the hospital with a medical issue, he enjoys the attention he receives from being cared for and typically asks to be placed on an inpatient psychiatric unit. He has no documented history of suicide attempts or gestures, no violence towards other and does not need to be hospitalized at this time. Call to patient?s group account director Janie Toribio ([phone]) she reported she is not concerned about patient?s safety, he lives in a 24hr staffed program, he has a clinical team, a 1:1 inspector timers aide and frequently calls [facility] for support. Felt Finishing Supervisor is comfortable with patient discharging home without further intervention. ED provider, Dr. Loaiza consulted and in agreement with plan of care.
== END 2022-12-24 14:19 | disposition home or self-care (01) ==
PROVIDERS: Emergency Provider Emergency Medicine; PCP Internal Medicine
DX: F20.9 Schizophrenia, unspecified (principal); F33.1 Major depressive disorder, recurrent, moderate; R10.31 Right lower quadrant pain; Z79.899 Other long term (current) drug therapy
CPT/HCPCS: 82947; 99284; 99285

== ENCOUNTER → 2023-01-03 12:57 | Outpatient (BNVA) | payer MEDICARE, MEDICAID, SELFPAY | PROVIDERS: PCP Internal Medicine; Referring Provider Internal Medicine; Visit Provider Nurse Practitioner Family | DX: K21.9 Gastro-esophageal reflux disease without esophagitis (principal); K58.1 Irritable bowel syndrome with constipation; K59.04 Chronic idiopathic constipation; Z79.899 Other long term (current) drug therapy | CPT/HCPCS: 99212 ==

== ENCOUNTER 2023-03-05 19:06 | Emergency (ER) | payer MEDICARE, MEDICAID, SELFPAY ==
--- NOTE | 2023-03-05 | ECG_ITS ---
Test Reason : CHEST PAIN Blood Pressure : / mmHG Vent. Rate : 080 BPM Atrial Rate : 080 BPM P-R Int : 184 ms QRS Dur : 082 ms QT Int : 394 ms P-R-T Axes : 056 -09 040 degrees QTc Int : 454 ms Normal sinus rhythm Normal ECG When compared with ECG of 26-SEP-2022 11:33, Sinus rhythm has replaced Atrial flutter Referred By: Generic ED Physician Electronically Signed By:Oni Mcneil
--- NOTE | ~2023-03-05 | XR_ITS ---
EXAMINATION: CHEST 2 VIEWS CLINICAL INFORMATION: cp. COMPARISON: 10/27/2021. TECHNIQUE: AP frontal and lateral views of the chest obtained FINDINGS: The lungs are well expanded. Chronic appearing reticular markings again seen. No focal infiltrate, effusion, edema, or pneumothorax. Cardiac and mediastinal silhouettes are within normal limits for technique. No acute bony abnormality seen XR/XR chest 2V IMPRESSION: No evidence of acute disease.
[2023-03-05 19:20] VITALS: BP 140/80; BP 154/76; PULSE 82; PULSE 90; RESP 18; TEMP 36.6; O2SAT 97; O2SAT 99; BMI 49.8
[2023-03-05 20:00] LABS: MANUAL DIFF FLAG NO
[2023-03-05 20:02] LABS: Basophils Percent Auto 0.5 % (0-2); Eosinophils Absolute Auto 0.1 X10*3/uL (0.0-0.4); Eosinophils Percent Auto 1.9 % (0-4); Hematocrit 35.6 % (42.0-52.0); Hemoglobin 11.7 g/dl (14.0-18.0); Imm Gran Abs Auto 0.05 X10*3/uL (0.00-0.03); Imm Gran Pct Auto 0.9 % (0.0-0.4); Lymphocytes Absolute Auto 1.7 X10*3/uL (1.2-4.9); Lymphocytes Percent Auto 29.3 % (20-40); Mean Corpuscular HGB Conc 32.9 g/dl (31.0-36.0); Mean Corpuscular Hemoglobin 30.4 pg (27.0-33.0); Mean Corpuscular Volume 92.5 fL (80.0-98.0); Mean Platelet Volume 9.7 fL (9.4-12.4); Monocytes Absolute Auto 0.6 X10*3/uL (0.1-1.2); Monocytes Percent Auto 9.9 % (2-11); Neutrophils Absolute Auto 3.3 x10*3/uL (2.0-8.3); Neutrophils Percent Auto 57.5 % (45-73); Platelet Count 114 X10*3/uL (160-400); Red Blood Count 3.85 X10*6/uL (4.60-5.80); Red Cell Distribution Width 12.5 % (11.0-16.0); White Blood Count 5.7 X10*3/uL (4.8-10.8)
[2023-03-05 20:23] LABS: Anion Gap 13 (12-20); Blood Urea Nitrogen 29 mg/dL (9-16); Calcium 8.8 mg/dL (8.4-10.2); Carbon Dioxide 23 mmol/L (22-29); Chloride 106 mmol/L (96-108); Creatinine Clr Calc Pharmacy 77.3; Estimated Glomerular Filt Rate > 60; Glucose Random 210 mg/dL (60-115); Potassium 4.4 mmol/L (3.3-5.1); Sodium 138 mmol/L (135-145)
[2023-03-05 20:33] LABS: Troponin-I High Sensitivity 3.6 ng/L (<3.5-35.0)
--- NOTE | 2023-03-05 20:47 | ED.CHESTPAIN ---
HPI - Chest Pain General Chief Complaint: Chest Pain Stated Complaint: CP Time Seen by Provider: 03/05/23 20:28 Source: patient Mode of arrival: ambulatory Limitations: no limitations History of Present Illness HPI narrative: [age]-year-old male with history of chronic suicidality diabetes cognitive delay and chronic chest pain presents emergency room complaining of suicide ideation and acute on chronic chest pain. Patient has been evaluated for this multiple times fast was been safe to go back to the [place]. Patient has no falls or injuries pain is ongoing for several weeks. Related Data Home Medications Medication Instructions Recorded Confirmed gabapentin 100 mg capsule 200 mg PO BID 06/23/21 11/19/22 risperidone 3 mg tablet 1 tab PO BID 06/23/21 11/19/22 divalproex 500 mg tablet,extended 1,000 mg PO BID 09/28/21 11/19/22 release 24 hr (Depakote ER) simethicone 125 mg capsule (Gas 125 mg PO TID-QID PRN 09/28/21 11/19/22 Relief (simethicone)) Gastrointestinal Spasms Or Cramping aspirin 81 mg tablet 81 mg PO DAILY 06/27/22 10/11/22 fluticasone propionate 50 2 spray intranasal BID 11/19/22 11/19/22 mcg/actuation nasal spray,suspension lisinopril 20 mg tablet 1 tab PO DAILY 11/19/22 11/19/22 Previous Rx's Medication Instructions Recorded nut.therapy,urea cycle disordr 15 1 ea PO BID #400 grams 09/28/21 gram-393 kcal/100 gram oral pwdr ondansetron 4 mg disintegrating 4 mg PO Q6H PRN Nausea #20 tabs 10/22/21 tablet bismuth subsalicylate 262 mg 2 tab PO QID PRN diarrhea 3 days 11/28/21 tablet (Pepto-Bismol) #24 tabs blood sugar diagnostic (OneTouch #100 ea 12/17/21 Ultra Test strips) fluticasone 250 mcg-salmeterol 50 1 inh inhalation BID #60 ea 02/20/22 mcg/dose blistr powdr for inhalation (Advair Diskus) urea 15 gram oral powder packet 1 packet PO DAILY 30 days #8 ea 02/20/22 (Ure-Na) acetaminophen 325 mg tablet 650 mg PO Q4H PRN fever or pain 90 06/11/22 days #180 tabs blood sugar diagnostic #100 ea 08/01/22 hydralazine 50 mg tablet 50 mg PO TID 90 days #270 tabs 08/28/22 compress.stocking,knee,reg,lrg #12 ea 09/02/22 sennosides 8.6 mg tablet (Natural 8.6 mg PO BEDTIME constipation #90 10/09/22 Senna Laxative) tabs albuterol sulfate 90 mcg/actuation 2 puff inhalation Q6H PRN Wheezing 10/14/22 aerosol inhaler #8.5 grams lactase 3,000 unit tablet (Lactaid) 3,000 unit PO .QD PRN lactose 10/14/22 intolerance #90 tabs atorvastatin 10 mg tablet 10 mg PO BEDTIME #90 tabs 10/25/22 dexlansoprazole 60 mg 60 mg PO BEDTIME #90 caps 10/25/22 capsule,biphase delayed release (Dexilant) furosemide 20 mg tablet (Lasix) 20 mg PO Q OTHER DAY #45 tabs 10/25/22 metformin 500 mg tablet 500 mg PO BID #180 tabs 10/25/22 propranolol 20 mg tablet 20 mg PO TID@0800,1600,2000 90 10/25/22 days #270 tabs cholecalciferol (vitamin D3) 25 25 mcg PO DAILY #90 tabs 11/23/22 mcg (1,000 unit) tablet empagliflozin 10 mg tablet 10 mg PO DAILY #30 tabs 12/16/22 (Jardiance) diphenoxylate-atropine 2.5 2 tab PO TID PRN Diarrhea #60 tabs 12/17/22 mg-0.025 mg tablet (Lomotil) cyanocobalamin (vitamin B-12) 1,000 mcg PO DAILY@1999 #90 tabs 12/24/22 1,000 mcg tablet methylcellulose (laxative) 500 mg 500 mg PO DAILY #90 tabs 01/03/23 tablet (Citrucel) polyethylene glycol 3350 17 17 g PO DAILY #510 grams 01/07/23 gram/dose oral powder (Miralax) ferrous sulfate 325 mg (65 mg 325 mg PO BID #60 tabs 01/18/23 iron) tablet Allergies Allergy/AdvReac Type Severity Reaction Status Date / Time Sulfa (Sulfonamide Allergy Severe CHAVEZ Verified 01/03/23 13:24 Antibiotics) ALICIA REACTION, Chavez Alicia trimethoprim Allergy Mild UNKNOWN Verified 01/03/23 13:24 lactose AdvReac Mild STOMACH Verified 01/03/23 13:24 UPSET Review of Systems Review of Systems: Review of systems: General: Patient denies any fever chills recent illness or falls Musculoskeletal: Denies back pain or body aches or other injuries HEENT: denies headache, runny nose, ear pain Respiratory: denies shortness of breath, cough Cardiovascular: chest pain or palpitations : denies dysuria, frequency Abdomen: no nausea vomiting denies abdominal pain Extremities: no swelling, no pain Skin: no diaphoresis Yes all other systems are reviewed and are negative PMFSH Past Medical History Medical History A-fib Abdominal pain Abnormal EKG Acute kidney injury Anemia Annual physical exam Anxiety Arrhythmia Asthma Atrial fib/flutter, transient Atrial flutter Back pain Back pain Cerebellar ataxia Contusion of left ankle Essential hypertension Fall Gait instability Hospital discharge follow-up Hyperlipidemia LDL goal <100 Hypertension Hyponatremia Lactose intolerance Left-sided chest pain Mental disability Musculoskeletal chest pain Positive colorectal cancer screening using Cologuard test Precordial chest pain Proteinuria Right ankle pain Seizure disorder Type 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 Vertigo Surgical History History of orchiectomy Hx of colonoscopy Family History Family History Father Myocardial infarction CVD (cardiovascular disease) Diabetes mellitus Mother Diabetes mellitus HTN (hypertension) Brother In good health Sister In good health Social History Social History Household Members: Other Household Members Other:: from [facility] Housing: Other Housing Other:: [facility] Do you presently have visiting nurse or other home services: Yes Alcohol intake: never Patient Tobacco Use Status: Never used Tobacco e-Cigarette/Vaping Use: Never Used Second Hand Smoke Exposure: No Advance Directives: No Advance Directives Information Provided: No Advance Directives Date on File: 05/23/21 service: No Current occupational status: disabled Cognitive needs: Yes (walker) Hearing needs: No Vision needs: Yes (glasses) Physical Exam Vital Signs: Vital Signs: Last Vital Signs Temp 98 F 03/05/23 19:20 Pulse 82 03/05/23 19:20 Resp 18 03/05/23 19:20 BP 154/76 H 03/05/23 19:20 Pulse Ox 99 03/05/23 19:20 O2 Del Method Room Air 03/05/23 19:20 BMI result Body Mass Index 49.8 General: Well-appearing well-nourished in no signs of distress HEENT: Normocephalic atraumatic Neck: No signs of JVD, no masses no tenderness or lymphadenopathy Cardiovascular: Regular rate and rhythm Respiratory: Clear to auscultation bilaterally Abdomen: Soft nontender no masses rectal exam performed 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 Extremities: Normal pedal pulses no signs of edema Skin: Dry warm no rashes Back: No tenderness full ROM Medical Decision Making Differential Diagnosis Differential Diagnoses: The differential diagnosis associated with the presentation includes Very likely ACS the patient has chronic chest pain also image the patient have pneumonia or any other injuries to the chest I do think this patient is safe to go back to [facility] care do not think this patient needs to be emergently evaluated by the crisis team is this is a chronic condition for him I will set the patient for discharge Admission/Observation Consideration of admission/observation: Escalation of care including admission/observation considered Lab Data MDM Lab Attestation statement: I reviewed the patient's lab results. 03/05/23 19:56 03/05/23 19:56 Labs: Lab Results 03/05/23 03/05/23 03/05/23 Range/Units 19:56 19:56 19:56 WBC 5.7 (4.8-10.8) X10*3/uL RBC 3.85 L (4.60-5.80) X10*6/uL Hgb 11.7 L (14.0-18.0) g/dl Hct 35.6 L (42.0-52.0) % MCV 92.5 (80.0-98.0) fL MCH 30.4 (27.0-33.0) pg MCHC 32.9 (31.0-36.0) g/dl RDW 12.5 (11.0-16.0) % Plt Count 114 L (160-400) X10*3/uL MPV 9.7 (9.4-12.4) fL Immature Gran % (Auto) 0.9 H (0.0-0.4) % Neut % (Auto) 57.5 (45-73) % Lymph % (Auto) 29.3 (20-40) % Gladwin % (Auto) 9.9 (2-11) % Eos % (Auto) 1.9 (0-4) % Baso % (Auto) 0.5 (0-2) % Lymph # (Auto) 1.7 (1.2-4.9) X10*3/uL Gladwin # (Auto) 0.6 (0.1-1.2) X10*3/uL Eos # (Auto) 0.1 (0.0-0.4) X10*3/uL Baso # (Auto) 0.0 (0.0-0.2) X10*3/uL Abs Immat Gran (auto) 0.05 H (0.00-0.03) X10*3/uL Absolute Neuts (auto) 3.3 (2.0-8.3) x10*3/uL Absolute Nucleated RBC 0.000 (0.0-0.012) X10*3/uL Nucleated RBC % (auto) 0.0 (0.0-0.2) /100WBC Sodium 138 (135-145) mmol/L Potassium 4.4 (3.3-5.1) mmol/L Chloride 106 (96-108) mmol/L Carbon Dioxide 23 (22-29) mmol/L Anion Gap 13 (12-20) BUN 29 H (9-16) mg/dL Creatinine 1.22 (0.5-1.4) mg/dL Estim Creat Clear Calc 77.3 Estimated GFR > 60 Random Glucose 210 H (60-115) mg/dL Calcium 8.8 (8.4-10.2) mg/dL Troponin I High Sens 3.6 (<3.5-35.0) ng/L Discharge Plan Discharge Clinical Impression: GERD (gastroesophageal reflux disease), Chest pain, Schizophrenia, Suicidal ideation Patient Disposition: Home, Self-Care Instructions: Schizophrenia (ED), Gastroesophageal Reflux Disease (DC), Chest Pain (DC), Help Prevent Suicide (ED) Additional Instructions: Please call follow-up with her doctor if you have any other concerns please do not hesitate to come back to emergency department. Prescriptions: No Action divalproex [Depakote ER] 500 mg tablet extended release 24 hr 1,000 mg PO BID Rx Instructions: Take two tabs by mouth twice a day nut.therapy,urea cycle disordr 15 gram-393 kcal/100 gram powder 1 ea PO BID Qty: 400 0RF Rx Instructions: Dissolved one packet of 15 gm into 8 oz of fluids and give by mouth every morning. simethicone [Gas Relief (simethicone)] 125 mg capsule 125 mg PO TID-QID PRN (Reason: Gastrointestinal Spasms Or Cramping) Rx Instructions: Take 1 capsule by mouth up to four times a day as needed for abdominal distension. ondansetron 4 mg tablet,disintegrating 4 mg PO Q6H PRN (Reason: Nausea) Qty: 20 3RF Pepto-Bismol 262 mg tablet 2 tab PO QID PRN (Reason: diarrhea) 3 Days Qty: 24 0RF (DME) OneTouch Ultra Test Strip See Rx Instructions .Route Qty: 100 11RF Rx Instructions: Test blood sugar 3 times a day as directed fluticasone propion-salmeterol [Advair Diskus] 250-50 mcg/dose blister with device 1 inh inhalation BID Qty: 60 12RF Ure-Na 15 gram powder in packet 1 packet PO DAILY 30 Days Qty: 8 11RF acetaminophen 325 mg tablet 650 mg PO Q4H PRN (Reason: fever or pain) 90 Days Qty: 180 2RF (DME) blood sugar diagnostic Strip See Rx Instructions .ROUTE .MEDSUPPLY Qty: 100 3RF Rx Instructions: As directed check the blood sugar once a day hydralazine 50 mg tablet 50 mg PO TID 90 Days Qty: 270 2RF albuterol sulfate 90 mcg/actuation HFA aerosol inhaler 2 puff INHALATION Q6H PRN (Reason: Wheezing) Qty: 8.5 0RF lactase [Lactaid] 3,000 unit tablet 3,000 unit PO .QD PRN (Reason: lactose intolerance) Qty: 90 3RF Rx Instructions: take at the start of drinking milk only propranolol 20 mg tablet 20 mg PO TID@0800,1600,2000 90 Days Qty: 270 3RF atorvastatin 10 mg tablet 10 mg PO BEDTIME Qty: 90 3RF Dexilant 60 mg capsule,biphase delayed releas 60 mg PO BEDTIME Qty: 90 3RF metformin 500 mg tablet 500 mg PO BID Qty: 180 3RF furosemide [Lasix] 20 mg tablet 20 mg PO Q OTHER DAY Qty: 45 2RF cholecalciferol (vitamin D3) 25 mcg (1,000 unit) tablet 25 mcg PO DAILY Qty: 90 3RF diphenoxylate-atropine [Lomotil] 2.5-0.025 mg tablet 2 tab PO TID PRN (Reason: Diarrhea) Qty: 60 1RF cyanocobalamin (vitamin B-12) 1,000 mcg tablet 1,000 mcg PO DAILY@2000 Qty: 90 3RF polyethylene glycol 3350 [Miralax] 17 gram/dose powder 17 g PO DAILY Qty: 510 2RF ferrous sulfate 325 mg (65 mg iron) Tablet 325 mg PO BID Qty: 60 4RF gabapentin 100 mg capsule 200 mg PO BID risperidone 3 mg tablet 1 tab PO BID aspirin 81 mg Tablet 81 mg PO DAILY lisinopril 20 mg tablet 1 tab PO DAILY fluticasone propionate 50 mcg/actuation spray,suspension 2 spray INTRANASAL BID (DME) compress.stocking,knee,reg,lrg Misc See Rx Instructions .Route Qty: 12 0RF Rx Instructions: As directed Jardiance 10 mg tablet 10 mg PO DAILY Qty: 30 4RF sennosides [Natural Senna Laxative] 8.6 mg tablet 8.6 mg PO BEDTIME Qty: 90 3RF Citrucel 500 mg tablet 500 mg PO DAILY Qty: 90 3RF Rx Instructions: Take one tablet by mouth daily in the morning.
[2023-03-05 21:52] VITALS: BP 142/79; PULSE 75; RESP 16; TEMP 36.3; O2SAT 98
== END 2023-03-05 23:36 | disposition home or self-care (01) ==
PROVIDERS: Emergency Provider Student in an Organized Health Care Education/Training Program
DX: R07.89 Other chest pain (principal); K21.9 Gastro-esophageal reflux disease without esophagitis; R45.851 Suicidal ideations; Z79.899 Other long term (current) drug therapy
CPT/HCPCS: 36415; 71046; 80048; 84484; 85025; 93005; 99283; 99284

== ENCOUNTER → 2023-03-28 16:10 | Outpatient (BNVA) | payer MEDICARE, MEDICAID, SELFPAY | PROVIDERS: Visit Provider Nurse Practitioner Family | DX: K21.9 Gastro-esophageal reflux disease without esophagitis (principal); R19.7 Diarrhea, unspecified | CPT/HCPCS: 99212 ==

== ENCOUNTER 2023-05-13 13:36 | Emergency (ER) | payer MEDICARE, MEDICAID, SELFPAY ==
[2023-05-13 13:47] VITALS: BP 131/67; PULSE 86; RESP 16; TEMP 36.3; O2SAT 98; BMI 42.3
--- NOTE | 2023-05-13 13:49 | ED.PSYCH ---
HPI - Psych General Chief Complaint: Psychiatric Symptoms Stated Complaint: SI Time Seen by Provider: 05/13/23 13:44 Source: patient Mode of arrival: ambulatory Limitations: no limitations History of Present Illness HPI Narrative: 52 yo male with history of seizure disorder, mental disability, schizophrenia, chronic suicidal ideation, DM, afib/aflutter, dysphagia, pancytopenia,HTN, cerebellar ataxia who presents to the ER from his snf for evaluation of suicidal and homicidal ideation that started a week or 2 ago. Patient states he has a history of the same. He has been to the ER several times for this. He states he has been thinking about choking himself as well as harming 1 of the [facility] employees. He did not act on any of his thoughts. He has been compliant with all of his medications. Denies any significant life stressors. He reports difficulty urinating and constipation since yesterday. He denies any nausea, vomiting, abdominal pain. No dysuria with urination. No blood in his urine. MD complaint: suicidal ideation Onset (ago): week(s) Duration: changing over time History of same: Yes Relieving factors: none Exacerbating factors: none Associated psychiatric symptoms: depression and suicidal ideation Associated symptoms: other (Constipation and difficulty urinating) Treatments prior to arrival: none If self harm: admits thoughts of self harm Related Data Home Medications Medication Instructions Recorded Confirmed gabapentin 100 mg capsule 200 mg PO BID 06/23/21 11/19/22 risperidone 3 mg tablet 1 tab PO BID 06/23/21 11/19/22 divalproex 500 mg tablet,extended 1,000 mg PO BID 09/28/21 11/19/22 release 24 hr (Depakote ER) simethicone 125 mg capsule (Gas 125 mg PO TID-QID PRN 09/28/21 11/19/22 Relief (simethicone)) Gastrointestinal Spasms Or Cramping aspirin 81 mg tablet 81 mg PO DAILY 06/27/22 10/11/22 fluticasone propionate 50 2 spray intranasal BID 11/19/22 11/19/22 mcg/actuation nasal spray,suspension lisinopril 20 mg tablet 1 tab PO DAILY 11/19/22 11/19/22 Previous Rx's Medication Instructions Recorded nut.therapy,urea cycle disordr 15 1 ea PO BID #400 grams 11/19/21 gram-393 kcal/100 gram oral pwdr ondansetron 4 mg disintegrating 4 mg PO Q6H PRN Nausea #20 tabs 10/22/21 tablet bismuth subsalicylate 262 mg 2 tab PO QID PRN diarrhea 3 days 11/28/21 tablet (Pepto-Bismol) #24 tabs blood sugar diagnostic (OneTouch #100 ea 12/17/21 Ultra Test strips) urea 15 gram oral powder packet 1 packet PO DAILY 30 days #8 ea 02/20/22 (Ure-Na) acetaminophen 325 mg tablet 650 mg PO Q4H PRN fever or pain 90 06/11/22 days #180 tabs blood sugar diagnostic #100 ea 08/01/22 compress.stocking,knee,reg,lrg #12 ea 09/02/22 sennosides 8.6 mg tablet (Natural 8.6 mg PO BEDTIME constipation #90 10/09/22 Senna Laxative) tabs albuterol sulfate 90 mcg/actuation 2 puff inhalation Q6H PRN Wheezing 10/14/22 aerosol inhaler #8.5 grams lactase 3,000 unit tablet (Lactaid) 3,000 unit PO .QD PRN lactose 10/14/22 intolerance #90 tabs atorvastatin 10 mg tablet 10 mg PO BEDTIME #90 tabs 10/25/22 dexlansoprazole 60 mg 60 mg PO BEDTIME #90 caps 10/25/22 capsule,biphase delayed release (Dexilant) furosemide 20 mg tablet (Lasix) 20 mg PO Q OTHER DAY #45 tabs 10/25/22 metformin 500 mg tablet 500 mg PO BID #180 tabs 10/25/22 propranolol 20 mg tablet 20 mg PO TID@0800,1600,1999 90 10/25/22 days #270 tabs cholecalciferol (vitamin D3) 25 25 mcg PO DAILY #90 tabs 11/23/22 mcg (1,000 unit) tablet diphenoxylate-atropine 2.5 2 tab PO TID PRN Diarrhea #60 tabs 12/17/22 mg-0.025 mg tablet (Lomotil) cyanocobalamin (vitamin B-12) 1,000 mcg PO DAILY@1999 #90 tabs 12/24/22 1,000 mcg tablet methylcellulose (laxative) 500 mg 500 mg PO DAILY #90 tabs 01/03/23 tablet (Citrucel) ferrous sulfate 325 mg (65 mg 325 mg PO BID #60 tabs 01/18/23 iron) tablet polyethylene glycol 3350 17 17 g PO DAILY #510 grams 04/15/23 gram/dose oral powder (Miralax) interdry #60 ea 04/18/23 nystatin 100,000 unit/gram topical 1 appl topical TID #60 grams 04/18/23 powder fluticasone 250 mcg-salmeterol 50 1 inh inhalation BID #60 ea 05/07/23 mcg/dose blistr powdr for inhalation (Advair Diskus) empagliflozin 10 mg tablet 10 mg PO DAILY #30 tabs 05/09/23 (Jardiance) hydralazine 50 mg tablet 50 mg PO TID 90 days #270 tabs 05/09/23 Allergies Allergy/AdvReac Type Severity Reaction Status Date / Time Sulfa (Sulfonamide Allergy Severe LANDEROS Verified 05/13/23 13:47 Antibiotics) ALICIA REACTION, Landeros Alicia trimethoprim Allergy Mild UNKNOWN Verified 05/13/23 13:47 lactose AdvReac Mild STOMACH Verified 05/13/23 13:47 UPSET Review of Systems Review of Systems: Yes all other systems are reviewed and are negative PMFSH Past Medical History Medical History A-fib Abdominal pain Abnormal EKG Acute kidney injury Anemia Annual physical exam Anxiety Arrhythmia Asthma Atrial fib/flutter, transient Atrial flutter Back pain Back pain Cerebellar ataxia Contusion of left ankle Essential hypertension Fall Gait instability Hospital discharge follow-up Hyperlipidemia LDL goal <100 Hypertension Hyponatremia Lactose intolerance Left-sided chest pain Mental disability Musculoskeletal chest pain Positive colorectal cancer screening using Cologuard test Precordial chest pain Proteinuria Right ankle pain Seizure disorder Type 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 Vertigo Surgical History History of orchiectomy Hx of colonoscopy Family History Family History Father Myocardial infarction CVD (cardiovascular disease) Diabetes mellitus Mother Diabetes mellitus HTN (hypertension) Brother In good health Sister In good health Social History Social History Household Members: Other Household Members Other:: from snf Housing: Other Housing Other:: snf Do you presently have visiting nurse or other home services: Yes Alcohol intake: never Patient Tobacco Use Status: Never used Tobacco e-Cigarette/Vaping Use: Never Used Second Hand Smoke Exposure: No Advance Directives: No Advance Directives Information Provided: Yes Advance Directives Date on File: 05/23/21 service: No Current occupational status: disabled Cognitive needs: Yes (walker) Hearing needs: No Vision needs: Yes (glasses) Physical Exam Vital Signs: Vital Signs: Last Vital Signs Temp 98.2 F 05/13/23 18:42 Pulse 92 05/13/23 18:42 Resp 14 05/13/23 18:42 BP 135/71 05/13/23 18:42 Pulse Ox 96 05/13/23 18:42 O2 Del Method Room Air 05/13/23 18:42 BMI result Body Mass Index 42.3 Appearance: Alert. Oriented X3. No acute distress. Head: normocephalic, atraumatic. Eyes: Pupils equal, round and reactive to light. Strabismus ENT: Pharynx normal. No tonsillar swelling or exudate. Poor dentition Neck: Normal inspection. Neck supple. CVS: Normal heart rate and rhythm. Pulses normal. Respiratory: No respiratory distress. Breath sounds normal. Abdomen: Soft and nontender. +BS x4 Skin: Skin warm and dry. Normal skin color. Normal skin turgor. No rashes. Extremities: No lower extremity edema. No joint swelling. Neuro/psych: Oriented X 3. No motor deficit. No sensory deficit. CN II-XII intact. Normal speech and cognition. . +SI, HI, AH. No VH. happy and smiling with conversation Course Course Course Narrative: RME: 52yo M w/PMHx A.Fib, HTN, GERD, DM, H.pylori, cognitive impairment, renal insufficiency, HLD, presenting to the ED from snf c/o SI w/plan to choke himself or girl that brought him here (Jonatan from [facility]). Also reports urinary retention & constipation x few days. Poor historian Labs, MAJOR, Bladder scan ordered Full HPI, ROS and PE to be performed by primary ED provider. Reevaluation(s) Reevaluation #1: signed out to Amy HARPER who will assume care Time: 16:06 Reevaluation #2: Patient able to urinate while in the emergency department without complication. Urinalysis without evidence of urinary tract infection. Has been eating and drinking without any nausea or vomiting. Abdominal examination is benign. At this time patient is stable for discharge back to snf. Time: 19:23 Medical Decision Making Medical Decision Making MDM Narrative: 54-year-old male well-known to the ER here presents to the ER for evaluation of acute on chronic suicidal ideation. He is also reporting difficulty urinating and constipation since yesterday. His abdomen is soft and nontender. Spoke with Yahaira from the care team. Patient often presents with physical complaints and is very somatic with his presentation. He appears to be at his baseline. Low clinical concern for risk to himself or others. Will complete medical workup with lab work and urinary sample, bladder scan to rule out urinary retention. Differential Diagnosis Differential Diagnoses: The differential diagnosis associated with the presentation includes substance induced mood disorder, acute psychosis, schizophrenia, schizoaffective disorder, PTSD, bipolar disorder, major depression with psychotic features Admission/Observation Consideration of admission/observation: Escalation of care including admission/observation considered presenting with si, considered psych admission Consult Healthcare Provider Management of the patient was discussed with: Behavioral Health Provider care maintenance team member Lab Data 05/13/23 15:31 05/13/23 15:31 Labs: Lab Results 05/13/23 05/13/23 05/13/23 Range/Units 15:31 15:31 15:31 WBC 6.0 (4.8-10.8) X10*3/uL RBC 4.11 L (4.60-5.80) X10*6/uL Hgb 12.4 L (14.0-18.0) g/dl Hct 36.9 L (42.0-52.0) % MCV 89.8 (80.0-98.0) fL MCH 30.2 (27.0-33.0) pg MCHC 33.6 (31.0-36.0) g/dl RDW 12.2 (11.0-16.0) % Plt Count 117 L (160-400) X10*3/uL MPV 10.1 (9.4-12.4) fL Immature Gran % (Auto) 0.8 H (0.0-0.4) % Neut % (Auto) 64.4 (45-73) % Lymph % (Auto) 25.5 (20-40) % [place] % (Auto) 7.8 (2-11) % Eos % (Auto) 1.0 (0-4) % Baso % (Auto) 0.5 (0-2) % Lymph # (Auto) 1.5 (1.2-4.9) X10*3/uL [place] # (Auto) 0.5 (0.1-1.2) X10*3/uL Eos # (Auto) 0.1 (0.0-0.4) X10*3/uL Baso # (Auto) 0.0 (0.0-0.2) X10*3/uL Abs Immat Gran (auto) 0.05 H (0.00-0.03) X10*3/uL Absolute Neuts (auto) 3.9 (2.0-8.3) x10*3/uL Absolute Nucleated RBC 0.000 (0.0-0.012) X10*3/uL Nucleated RBC % (auto) 0.0 (0.0-0.2) /100WBC Sodium 135 (135-145) mmol/L Potassium 5.1 (3.3-5.1) mmol/L Chloride 106 (96-108) mmol/L Carbon Dioxide 15 L (22-29) mmol/L Anion Gap 19 (12-20) BUN 31 H (9-16) mg/dL Creatinine 1.30 (0.5-1.4) mg/dL Estim Creat Clear Calc 78.9 Estimated GFR 58 Random Glucose 244 H (60-115) mg/dL Calcium 9.2 (8.4-10.2) mg/dL Total Bilirubin 0.2 (0.0-1.0) mg/dL AST 20 (5-37) U/L ALT 14 (0-40) U/L Alkaline Phosphatase 79 (39-117) U/L Total Protein 7.1 (6.5-8.0) g/dL Albumin 3.7 (3.5-5.0) g/dL Urine Color Urine Appearance Urine pH (5.0-9.0) Ur Specific [place] (1.005-1.025) Urine Protein (Neg-Trace) mg/dL Urine Glucose (UA) (Negative) mg/dL Urine Ketones (Negative) mg/dL Urine Blood (Negative) Urine Nitrite (Negative) Ur Leukocyte Esterase (Negative) Salicylates (15-30) mg/dL Urine Opiates Screen (Not Detect) Urine Fentanyl Screen (Not Detect) Acetaminophen (<30) mcg/mL Ur Barbiturates Screen (Not Detect) Ur Phencyclidine Scrn (Not Detect) Ur Amphetamines Screen (Not Detect) U Benzodiazepines Scrn (Not Detect) Urine Cocaine Screen (Not Detect) U Marijuana (THC) Screen (Not Detect) Ethyl Alcohol < 10 mg/dL COVID-19 (MICHAELA) Negative (Negative) COVID-19 Clin Com See Note 05/13/23 05/13/23 05/13/23 Range/Units 15:31 16:30 16:30 WBC (4.8-10.8) X10*3/uL RBC (4.60-5.80) X10*6/uL Hgb (14.0-18.0) g/dl Hct (42.0-52.0) % MCV (80.0-98.0) fL MCH (27.0-33.0) pg MCHC (31.0-36.0) g/dl RDW (11.0-16.0) % Plt Count (160-400) X10*3/uL MPV (9.4-12.4) fL Immature Gran % (Auto) (0.0-0.4) % Neut % (Auto) (45-73) % Lymph % (Auto) (20-40) % [place] % (Auto) (2-11) % Eos % (Auto) (0-4) % Baso % (Auto) (0-2) % Lymph # (Auto) (1.2-4.9) X10*3/uL [place] # (Auto) (0.1-1.2) X10*3/uL Eos # (Auto) (0.0-0.4) X10*3/uL Baso # (Auto) (0.0-0.2) X10*3/uL Abs Immat Gran (auto) (0.00-0.03) X10*3/uL Absolute Neuts (auto) (2.0-8.3) x10*3/uL Absolute Nucleated RBC (0.0-0.012) X10*3/uL Nucleated RBC % (auto) (0.0-0.2) /100WBC Sodium (135-145) mmol/L Potassium (3.3-5.1) mmol/L Chloride (96-108) mmol/L Carbon Dioxide (22-29) mmol/L Anion Gap (12-20) BUN (9-16) mg/dL Creatinine (0.5-1.4) mg/dL Estim Creat Clear Calc Estimated GFR Random Glucose (60-115) mg/dL Calcium (8.4-10.2) mg/dL Total Bilirubin (0.0-1.0) mg/dL AST (5-37) U/L ALT (0-40) U/L Alkaline Phosphatase (39-117) U/L Total Protein (6.5-8.0) g/dL Albumin (3.5-5.0) g/dL Urine Color Yellow Urine Appearance Clear Urine pH 5.5 (5.0-9.0) Ur Specific [place] >= 1.030 H (1.005-1.025) Urine Protein Negative (Neg-Trace) mg/dL Urine Glucose (UA) >=1000 H (Negative) mg/dL Urine Ketones Negative (Negative) mg/dL Urine Blood Negative (Negative) Urine Nitrite Negative (Negative) Ur Leukocyte Esterase Negative (Negative) Salicylates < 5.0 L (15-30) mg/dL Urine Opiates Screen Not Detected (Not Detect) Urine Fentanyl Screen Not Detected (Not Detect) Acetaminophen < 17 (<30) mcg/mL Ur Barbiturates Screen Not Detected (Not Detect) Ur Phencyclidine Scrn Not Detected (Not Detect) Ur Amphetamines Screen Not Detected (Not Detect) U Benzodiazepines Scrn Not Detected (Not Detect) Urine Cocaine Screen Not Detected (Not Detect) U Marijuana (THC) Screen Not Detected (Not Detect) Ethyl Alcohol mg/dL COVID-19 (MICHAELA) (Negative) COVID-19 Clin Com External Record Review External record reviewed: Office record, Outpatient record, Prior outpatient labs and Prior outpatient radiology Prescription Management I considered prescription management with: Other (Antipsychotic, laxative) Chronic Conditions Patient?s care impacted by: Other (Intellectual disability, schizophrenia, chronic suicidal ideation) Social Determinants Patient?s care significantly limited by Social Determinants of Health including: Other Social Determinant of Health Critical Care Time Critical Care Time Critical Care Time: No Discharge Plan Discharge Clinical Impression: Suicidal ideation, Constipation, Difficulty urinating Patient Disposition: Home, Self-Care Additional Instructions: You were able to urinate in the emergency department without any issue. Please continue to stay well hydrated. Consume a high-fiber diet to avoid constipation. Return back to emergency department any new or worsening symptoms or concerns. Prescriptions: No Action divalproex [Depakote ER] 500 mg tablet extended release 24 hr 1,000 mg PO BID Rx Instructions: Take two tabs by mouth twice a day nut.therapy,urea cycle disordr 15 gram-393 kcal/100 gram powder 1 ea PO BID Qty: 400 0RF Rx Instructions: Dissolved one packet of 15 gm into 8 oz of fluids and give by mouth every morning. simethicone [Gas Relief (simethicone)] 125 mg capsule 125 mg PO TID-QID PRN (Reason: Gastrointestinal Spasms Or Cramping) Rx Instructions: Take 1 capsule by mouth up to four times a day as needed for abdominal distension. ondansetron 4 mg tablet,disintegrating 4 mg PO Q6H PRN (Reason: Nausea) Qty: 20 3RF Pepto-Bismol 262 mg tablet 2 tab PO QID PRN (Reason: diarrhea) 3 Days Qty: 24 0RF (DME) OneTouch Ultra Test Strip See Rx Instructions .Route Qty: 100 11RF Rx Instructions: Test blood sugar 3 times a day as directed Ure-Na 15 gram powder in packet 1 packet PO DAILY 30 Days Qty: 8 11RF acetaminophen 325 mg tablet 650 mg PO Q4H PRN (Reason: fever or pain) 90 Days Qty: 180 2RF (DME) blood sugar diagnostic Strip See Rx Instructions .ROUTE .MEDSUPPLY Qty: 100 3RF Rx Instructions: As directed check the blood sugar once a day albuterol sulfate 90 mcg/actuation HFA aerosol inhaler 2 puff INHALATION Q6H PRN (Reason: Wheezing) Qty: 8.5 0RF lactase [Lactaid] 3,000 unit tablet 3,000 unit PO .QD PRN (Reason: lactose intolerance) Qty: 90 3RF Rx Instructions: take at the start of drinking milk only propranolol 20 mg tablet 20 mg PO TID@0800,1600,2000 90 Days Qty: 270 3RF atorvastatin 10 mg tablet 10 mg PO BEDTIME Qty: 90 3RF Dexilant 60 mg capsule,biphase delayed releas 60 mg PO BEDTIME Qty: 90 3RF metformin 500 mg tablet 500 mg PO BID Qty: 180 3RF furosemide [Lasix] 20 mg tablet 20 mg PO Q OTHER DAY Qty: 45 2RF cholecalciferol (vitamin D3) 25 mcg (1,000 unit) tablet 25 mcg PO DAILY Qty: 90 3RF diphenoxylate-atropine [Lomotil] 2.5-0.025 mg tablet 2 tab PO TID PRN (Reason: Diarrhea) Qty: 60 1RF cyanocobalamin (vitamin B-12) 1,000 mcg tablet 1,000 mcg PO DAILY@2000 Qty: 90 3RF polyethylene glycol 3350 [Miralax] 17 gram/dose powder 17 g PO DAILY Qty: 510 2RF nystatin 100,000 unit/gram powder 1 appl topical TID Qty: 60 0RF Rx Instructions: To bilateral groin (DME) interdry See Rx Instructions .Route .MEDSUPPLY Qty: 60 11RF Rx Instructions: As directed apply to both groins fluticasone propion-salmeterol [Advair Diskus] 250-50 mcg/dose blister with device 1 inh inhalation BID Qty: 60 12RF hydralazine 50 mg tablet 50 mg PO TID 90 Days Qty: 270 2RF Jardiance 10 mg tablet 10 mg PO DAILY Qty: 30 4RF ferrous sulfate 325 mg (65 mg iron) Tablet 325 mg PO BID Qty: 60 4RF gabapentin 100 mg capsule 200 mg PO BID risperidone 3 mg tablet 1 tab PO BID aspirin 81 mg Tablet 81 mg PO DAILY lisinopril 20 mg tablet 1 tab PO DAILY fluticasone propionate 50 mcg/actuation spray,suspension 2 spray INTRANASAL BID (DME) compress.stocking,knee,reg,lrg Misc See Rx Instructions .Route Qty: 12 0RF Rx Instructions: As directed sennosides [Natural Senna Laxative] 8.6 mg tablet 8.6 mg PO BEDTIME Qty: 90 3RF Citrucel 500 mg tablet 500 mg PO DAILY Qty: 90 3RF Rx Instructions: Take one tablet by mouth daily in the morning.
--- NOTE | 2023-05-13 15:01 | PC.NURSE ---
pt is sitting up on side of bed, eating [employer] sandwiches and [employer] coffee. asking any passing staff to come talk for a minute . walker within reach.
[2023-05-13 16:36] LABS: Alanine Aminotransferase 14 U/L (0-40); Albumin Level 3.7 g/dL (3.5-5.0); Alkaline Phosphatase 79 U/L (39-117); Anion Gap 19 (12-20); Aspartate Amino Transferase 20 U/L (5-37); Bilirubin Total 0.2 mg/dL (0.0-1.0); Blood Urea Nitrogen 31 mg/dL (9-16); Calcium 9.2 mg/dL (8.4-10.2); Carbon Dioxide 15 mmol/L (22-29); Chloride 106 mmol/L (96-108); Creatinine Clr Calc Pharmacy 78.9; Estimated Glomerular Filt Rate 58; Ethanol < 10 mg/dL; Glucose Random 244 mg/dL (60-115); Potassium 5.1 mmol/L (3.3-5.1); Sodium 135 mmol/L (135-145); Total Protein 7.1 g/dL (6.5-8.0)
--- NOTE | 2023-05-13 16:56 | MHC.CARE ---
Patient is a 52 year-old man who was dropped off at the ED today by his family support specialist, they were out for a planned drive when he expressed suicidal ideation. At the hospital patient told the provider he was having thoughts to hurt himself and others. Patient is well known to [facility] ED from many visits for pain/medical issues and regularly makes suicidal statements, reports hearing voices and requests to be sent to [facility] for inpatient psychiatric admission. Spoke to [facility] Emergency Communications Dispatcher Jonatan ([phone]) who has been working with patient for over a year and also knows him from other capacities. She takes his complaints seriously, as she should, though said that she offered several alternatives to coming to the ED. Has been working towards getting patient out of the house a few times a week and is looking for more opportunities in the community for social activities. She reported that another resident recently had a crisis evaluation and patient went to [facility] for an intake. By history care home staff, his guardian and [facility] understand that patient often finds a way to get to a hospital when another resident has an appointment, a crisis or needs medical attention. Called care home staff, Oswaldo ([phone]) he has worked with patient for 9 months and understands patient well. He has no concerns for patient?s safety and will pick him up at any time. For context, Patient?s guardian/sister mandated a few years ago that he should only be brought to [facility] because she understands that patient is attention and food seeking that he does not have access to at the care home but does at hospitals. CARE Team met with patient in 22H for conversation, he was alert and oriented, engaged easily, and continued to express wanting to hurt himself and others. He has no known history of attempts and does not have the physical ability or means to follow through on his threats, lives in a 24 hr staffed program and has a full team of outpatient providers. Patient is not having a psychiatric crisis and is at his known baseline and does not need an inpatient admission or any further intervention. ED provider, PANKAJ Aguilar updated and in agreement with plan to discharge
[2023-05-13 18:42] VITALS: BP 135/71; PULSE 92; RESP 14; TEMP 36.8; O2SAT 96
[2023-05-13 19:42] VITALS: BP 166/87; PULSE 86; RESP 18; TEMP 36.6; O2SAT 97
--- NOTE | 2023-05-13 19:48 | PC.NURSE ---
CTs obtained, pt has 2 large bore IV's bilaterally in the AC's, labs sent. Pt is waking up at this time, reporting abdominal pain. Pt is A&Ox4, GCS 15, and is able to recall events leading up to passing out. Dr Scott at the bedside.
== END 2023-05-13 20:14 | disposition home or self-care (01) ==
PROVIDERS: Emergency Provider Emergency Medicine Emergency Medical Services; PCP Internal Medicine
DX: R45.851 Suicidal ideations (principal); I48.91 Unspecified atrial fibrillation; E11.9 Type 2 diabetes mellitus without complications; I10 Essential (primary) hypertension; G40.909 Epilepsy, unspecified, not intractable, without status epilepticus; F20.9 Schizophrenia, unspecified; Z79.899 Other long term (current) drug therapy; Z20.822 Contact with and (suspected) exposure to COVID-19
CPT/HCPCS: 51798; 80053; 80143; 80179; 80307; 81001; 81003; 85025; 87635; 99284

== ENCOUNTER 2023-06-10 16:37 | Emergency (ER) | payer MEDICARE, MEDICAID, SELFPAY ==
[2023-06-10 16:52] VITALS: BP 137/71; PULSE 80; RESP 16; TEMP 36.8; O2SAT 99; BMI 42.6
--- NOTE | 2023-06-10 18:17 | ED.GENADULT ---
HPI - General Adult General Chief complaint: Psychiatric Symptoms Stated complaint: SI/Wants to hurt ppl Time Seen by Provider: 06/10/23 17:58 Source: patient, family and RN notes reviewed Mode of arrival: ambulatory Limitations: other (Cognitive delay) History of Present Illness HPI narrative: A 52-year-old male with past medical history significant for schizophrenia, hypertension, type 2 diabetes, peripheral vascular disease, cognitive developmental delay presents for evaluation of ?I'm feeling suicidal. ? Patient reports he has been feeling suicidal for the last 3 days. He has a plan to harm himself with ?the car. ? Patient reports he has been taking all his medications as prescribed He reports he is also hearing voices that are telling him to harm himself or somebody else Patient reports a feels somewhat dizzy but otherwise has no other somatic complaints He is requesting food at this time Related Data Home Medications Medication Instructions Recorded Confirmed gabapentin 100 mg capsule 200 mg PO BID 06/23/21 05/16/23 risperidone 3 mg tablet 1 tab PO BID 06/23/21 05/16/23 divalproex 500 mg tablet,extended 1,000 mg PO BID 09/28/21 05/16/23 release 24 hr (Depakote ER) simethicone 125 mg capsule (Gas 125 mg PO TID-QID PRN 09/28/21 05/16/23 Relief (simethicone)) Gastrointestinal Spasms Or Cramping fluticasone propionate 50 2 spray intranasal BID 11/19/22 05/16/23 mcg/actuation nasal spray,suspension lisinopril 20 mg tablet 1 tab PO DAILY 11/19/22 05/16/23 Previous Rx's Medication Instructions Recorded nut.therapy,urea cycle disordr 15 1 ea PO BID #400 grams 09/28/21 gram-393 kcal/100 gram oral pwdr bismuth subsalicylate 262 mg 2 tab PO QID PRN diarrhea 3 days 11/28/21 tablet (Pepto-Bismol) #24 tabs blood sugar diagnostic (OneTouch #100 ea 12/17/21 Ultra Test strips) acetaminophen 325 mg tablet 650 mg PO Q4H PRN fever or pain 90 06/11/22 days #180 tabs blood sugar diagnostic #100 ea 08/01/22 compress.stocking,knee,reg,lrg #12 ea 09/02/22 sennosides 8.6 mg tablet (Natural 8.6 mg PO BEDTIME constipation #90 10/09/22 Senna Laxative) tabs lactase 3,000 unit tablet (Lactaid) 3,000 unit PO .QD PRN lactose 10/14/22 intolerance #90 tabs atorvastatin 10 mg tablet 10 mg PO BEDTIME #90 tabs 10/25/22 dexlansoprazole 60 mg 60 mg PO BEDTIME #90 caps 10/25/22 capsule,biphase delayed release (Dexilant) furosemide 20 mg tablet (Lasix) 20 mg PO Q OTHER DAY #45 tabs 10/25/22 metformin 500 mg tablet 500 mg PO BID #180 tabs 10/25/22 propranolol 20 mg tablet 20 mg PO TID@0800,1600,1999 90 10/25/22 days #270 tabs cholecalciferol (vitamin D3) 25 25 mcg PO DAILY #90 tabs 11/23/22 mcg (1,000 unit) tablet diphenoxylate-atropine 2.5 2 tab PO TID PRN Diarrhea #60 tabs 12/17/22 mg-0.025 mg tablet (Lomotil) cyanocobalamin (vitamin B-12) 1,000 mcg PO DAILY@1999 #90 tabs 12/24/22 1,000 mcg tablet methylcellulose (laxative) 500 mg 500 mg PO DAILY #90 tabs 01/03/23 tablet (Citrucel) polyethylene glycol 3350 17 17 g PO DAILY #510 grams 04/15/23 gram/dose oral powder (Miralax) interdry #60 ea 04/18/23 nystatin 100,000 unit/gram topical 1 appl topical TID #60 grams 04/18/23 powder fluticasone 250 mcg-salmeterol 50 1 inh inhalation BID #60 ea 05/07/23 mcg/dose blistr powdr for inhalation (Advair Diskus) empagliflozin 10 mg tablet 10 mg PO DAILY #30 tabs 05/09/23 (Jardiance) hydralazine 50 mg tablet 50 mg PO TID 90 days #270 tabs 05/09/23 albuterol sulfate 90 mcg/actuation 2 puff inhalation Q6H PRN Wheezing 05/20/23 aerosol inhaler #8.5 grams ondansetron 4 mg disintegrating 4 mg PO Q6H PRN Nausea #20 tabs 05/20/23 tablet urea 15 gram oral powder packet 1 packet PO DAILY 30 days #8 ea 05/24/23 (Ure-Na) ferrous sulfate 325 mg (65 mg 325 mg PO BID #60 tabs 06/09/23 iron) tablet DIABETIC SHOES #1 ea 06/10/23 Allergies Allergy/AdvReac Type Severity Reaction Status Date / Time Sulfa (Sulfonamide Allergy Severe HCAVEZ Verified 05/16/23 11:00 Antibiotics) ALICIA REACTION, Chavez Alicia trimethoprim Allergy Mild UNKNOWN Verified 05/16/23 11:00 lactose AdvReac Mild STOMACH Verified 05/16/23 11:00 UPSET Review of Systems Constitutional: Constitutional: Denies fever(s) and Denies headache(s) ENT: Reports dizziness and Denies headache(s) Cardiovascular: Cardiovascular: Denies chest pain Respiratory: Respiratory: Denies cough Gastrointestinal: Gastrointestinal: Denies abdominal pain, Denies nausea and Denies vomiting Neurologic: Reports dizziness and Denies headache(s) Psychiatric: Psychiatric: Reports auditory hallucinations, Reports homicidal ideation and Reports suicidal ideation [facility] Past Medical History Medical History (Updated 06/10/23 @ 18:25 by Holland Moe) A-fib Abdominal pain Abnormal EKG Acute kidney injury Anemia Annual physical exam Anxiety Arrhythmia Asthma Atrial fib/flutter, transient Atrial flutter Back pain Back pain Cerebellar ataxia Contusion of left ankle Essential hypertension Fall Gait instability Hospital discharge follow-up Hyperlipidemia LDL goal <100 Hypertension Hyponatremia Lactose intolerance Left-sided chest pain Mental disability Musculoskeletal chest pain Positive colorectal cancer screening using Cologuard test Precordial chest pain Proteinuria Right ankle pain Seizure disorder Type 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 Vertigo Surgical History History of orchiectomy Hx of colonoscopy Family History Family History Father Myocardial infarction CVD (cardiovascular disease) Diabetes mellitus Mother Diabetes mellitus HTN (hypertension) Brother In good health Sister In good health Social History Social History Household Members: Other Household Members Other:: from care home Housing: Other Housing Other:: care home Do you presently have visiting nurse or other home services: Yes Alcohol intake: never Patient Tobacco Use Status: Never used Tobacco e-Cigarette/Vaping Use: Never Used Second Hand Smoke Exposure: No Advance Directives: No Advance Directives Information Provided: No Advance Directives Date on File: 05/23/21 service: No Current occupational status: disabled Cognitive needs: Yes (walker) Hearing needs: No Vision needs: Yes (glasses) Physical Exam ED Vital Signs: Vital Signs - 24 hr 06/10/23 16:52 Temperature 98.3 F Pulse Rate 80 Respiratory Rate 16 Blood Pressure 137/71 Pulse Oximetry 99 Oxygen Delivery Method Room Air BMI result Body Mass Index 42.6 Const General: no acute distress, alert and awake Nutritional Appearance: well nourished Orientation/consciousness: patient oriented x3 HENMT Head: Yes normocephalic and Yes atraumatic Eyes Eyelids: Yes eyelids normal Conjunctivae: conjunctivae normal Sclerae: sclerae normal Corneas: corneas normal Pupils: Equal, round and reactive pupils present EOM: EOMs intact bilaterally Neck Neck: Yes full ROM Resp Effort & Inspection: normal respiratory effort, able to speak in complete sentences and not labored Skin General skin exam: no rashes or lesions noted and elasticity normal Neuro General: patient oriented x3 Cranial nerves: Yes Equal, round and reactive pupils present and Yes Bilaterally intact EOM present Cognition (Neuro): normal cognition Extrem Other: Moving all extremities well without any obvious deformities Medical Decision Making Medical Decision Making MDM Narrative: 52-year-old male presents for evaluation of suicidal ideation. He will require medical clearance and a care team evaluation. His oral signs are all within normal limits at this time, basic workup pending Differential Diagnosis Differential Diagnoses: The differential diagnosis associated with the presentation includes Suicidal ideation Schizophrenia Bipolar disorder Depression Mood disorder Discharge Plan Discharge Clinical Impression: Suicidal ideation Patient Disposition: Still a Patient Prescriptions: No Action divalproex [Depakote ER] 500 mg tablet extended release 24 hr 1,000 mg PO BID Rx Instructions: Take two tabs by mouth twice a day nut.therapy,urea cycle disordr 15 gram-393 kcal/100 gram powder 1 ea PO BID Qty: 400 0RF Rx Instructions: Dissolved one packet of 15 gm into 8 oz of fluids and give by mouth every morning. simethicone [Gas Relief (simethicone)] 125 mg capsule 125 mg PO TID-QID PRN (Reason: Gastrointestinal Spasms Or Cramping) Rx Instructions: Take 1 capsule by mouth up to four times a day as needed for abdominal distension. Pepto-Bismol 262 mg tablet 2 tab PO QID PRN (Reason: diarrhea) 3 Days Qty: 24 0RF (DME) OneTouch Ultra Test Strip See Rx Instructions .Route Qty: 100 11RF Rx Instructions: Test blood sugar 3 times a day as directed acetaminophen 325 mg tablet 650 mg PO Q4H PRN (Reason: fever or pain) 90 Days Qty: 180 2RF (DME) blood sugar diagnostic Strip See Rx Instructions .ROUTE .MEDSUPPLY Qty: 100 3RF Rx Instructions: As directed check the blood sugar once a day lactase [Lactaid] 3,000 unit tablet 3,000 unit PO .QD PRN (Reason: lactose intolerance) Qty: 90 3RF Rx Instructions: take at the start of drinking milk only propranolol 20 mg tablet 20 mg PO TID@0800,1600,2000 90 Days Qty: 270 3RF atorvastatin 10 mg tablet 10 mg PO BEDTIME Qty: 90 3RF Dexilant 60 mg capsule,biphase delayed releas 60 mg PO BEDTIME Qty: 90 3RF metformin 500 mg tablet 500 mg PO BID Qty: 180 3RF furosemide [Lasix] 20 mg tablet 20 mg PO Q OTHER DAY Qty: 45 2RF cholecalciferol (vitamin D3) 25 mcg (1,000 unit) tablet 25 mcg PO DAILY Qty: 90 3RF diphenoxylate-atropine [Lomotil] 2.5-0.025 mg tablet 2 tab PO TID PRN (Reason: Diarrhea) Qty: 60 1RF cyanocobalamin (vitamin B-12) 1,000 mcg tablet 1,000 mcg PO DAILY@2000 Qty: 90 3RF polyethylene glycol 3350 [Miralax] 17 gram/dose powder 17 g PO DAILY Qty: 510 2RF nystatin 100,000 unit/gram powder 1 appl topical TID Qty: 60 0RF Rx Instructions: To bilateral groin (DME) interdry See Rx Instructions .Route .MEDSUPPLY Qty: 60 11RF Rx Instructions: As directed apply to both groins fluticasone propion-salmeterol [Advair Diskus] 250-50 mcg/dose blister with device 1 inh inhalation BID Qty: 60 12RF hydralazine 50 mg tablet 50 mg PO TID 90 Days Qty: 270 2RF Jardiance 10 mg tablet 10 mg PO DAILY Qty: 30 4RF albuterol sulfate 90 mcg/actuation HFA aerosol inhaler 2 puff INHALATION Q6H PRN (Reason: Wheezing) Qty: 8.5 0RF ondansetron 4 mg tablet,disintegrating 4 mg PO Q6H PRN (Reason: Nausea) Qty: 20 3RF Ure-Na 15 gram powder in packet 1 packet PO DAILY 30 Days Qty: 8 11RF (DME) DIABETIC SHOES See Rx Instructions .Route .MEDSUPPLY Qty: 1 0RF Rx Instructions: As directed ferrous sulfate 325 mg (65 mg iron) Tablet 325 mg PO BID Qty: 60 4RF gabapentin 100 mg capsule 200 mg PO BID risperidone 3 mg tablet 1 tab PO BID lisinopril 20 mg tablet 1 tab PO DAILY fluticasone propionate 50 mcg/actuation spray,suspension 2 spray INTRANASAL BID (DME) compress.stocking,knee,reg,lrg Misc See Rx Instructions .Route Qty: 12 0RF Rx Instructions: As directed sennosides [Natural Senna Laxative] 8.6 mg tablet 8.6 mg PO BEDTIME Qty: 90 3RF Citrucel 500 mg tablet 500 mg PO DAILY Qty: 90 3RF Rx Instructions: Take one tablet by mouth daily in the morning.
[2023-06-10 19:12] LABS: MANUAL DIFF FLAG NO
[2023-06-10 19:23] LABS: Basophils Percent Auto 0.5 % (0-2); Eosinophils Absolute Auto 0.1 X10*3/uL (0.0-0.4); Eosinophils Percent Auto 1.4 % (0-4); Hematocrit 36.7 % (42.0-52.0); Hemoglobin 12.5 g/dl (14.0-18.0); Imm Gran Abs Auto 0.03 X10*3/uL (0.00-0.03); Imm Gran Pct Auto 0.5 % (0.0-0.4); Lymphocytes Absolute Auto 1.6 X10*3/uL (1.2-4.9); Lymphocytes Percent Auto 24.8 % (20-40); Mean Corpuscular HGB Conc 34.1 g/dl (31.0-36.0); Mean Corpuscular Volume 88.2 fL (80.0-98.0); Monocytes Absolute Auto 0.5 X10*3/uL (0.1-1.2); Monocytes Percent Auto 8.3 % (2-11); Neutrophils Absolute Auto 4.1 x10*3/uL (2.0-8.3); Neutrophils Percent Auto 64.5 % (45-73); Platelet Count 121 X10*3/uL (160-400); Red Blood Count 4.16 X10*6/uL (4.60-5.80); Red Cell Distribution Width 11.9 % (11.0-16.0); White Blood Count 6.3 X10*3/uL (4.8-10.8)
[2023-06-10 19:35] LABS: Acetaminophen LAB < 17 mcg/mL (<30); Alanine Aminotransferase 15 U/L (0-40); Albumin Level 3.8 g/dL (3.5-5.0); Alkaline Phosphatase 87 U/L (39-117); Anion Gap 18 (12-20); Aspartate Amino Transferase 18 U/L (5-37); Bilirubin Total 0.2 mg/dL (0.0-1.0); Blood Urea Nitrogen 43 mg/dL (9-16); Calcium 9.5 mg/dL (8.4-10.2); Carbon Dioxide 19 mmol/L (22-29); Chloride 106 mmol/L (96-108); Creatinine Clr Calc Pharmacy 66.4; Estimated Glomerular Filt Rate 48; Ethanol < 10 mg/dL; Glucose Random 164 mg/dL (60-115); Lipase 35 U/L (8-78); Potassium 4.9 mmol/L (3.3-5.1); Salicylate < 5.0 mg/dL (15-30); Sodium 138 mmol/L (135-145)
--- NOTE | 2023-06-10 21:01 | PHA.MEDREC ---
Pharmacy Consult ? Medication Reconciliation Pharmacy has reviewed the medication reconciliation completed by Thai. Shannon Correia, ZoilaD
[2023-06-10 21:09] LABS: Appearance Urine Clear; Color Urine Yellow; Glucose Urine UA >=1000 mg/dL (Negative); Leukocyte Esterase Urine Negative (Negative); Nitrite Urine Negative (Negative); PH 5.5 (5.0-9.0); Specific Gravity - Urine 1.025 (1.005-1.025); UMIC TRIGGER UA YES; Urine Blood Negative (Negative); Urine Ketones Negative (Negative); Urine Protein Negative (Neg-Trace)
[2023-06-10 21:14] LABS: Bacteria Urine None Seen (None Seen); Hyaline Casts Urine 0-2 /LPF (0-2); RBC Urine 0-2 /HPF (0-2); Squamous Epithelial Cell Urine 0-2 /HPF (0-2); WBC Urine 0-5 /HPF (0-5)
--- NOTE | 2023-06-10 21:24 | PC.NURSE ---
Patient is one to one for observation due to fall risk a.e.b patient uses bilateral braces to ambulates with walker, patient is awaiting care team evaluation, will continue to monitor.
[2023-06-10 21:30] LABS: Amphetamine Screen Urine Not Detected (Not Detect); Barbiturates, Urine Not Detected (Not Detect); Benzodiazepines Screen Urine Not Detected (Not Detect); Cannabinoid Screen Urine Not Detected (Not Detect); Cocaine Screen Urine Not Detected (Not Detect); Fentanyl, urine Not Detected (Not Detect); Opiate Screen Urine Not Detected (Not Detect); Phencyclidine Screen Urine Not Detected (Not Detect)
[2023-06-10] MEDS: Gabapentin 100 MG CAPSULE 200 MG PO (23:47)
[2023-06-10] MEDS: risperiDONE 3 MG TABLET PO (23:47)
[2023-06-10] MEDS: Divalproex Sodium ER 500 MG TAB.ER.24H 1000 MG PO (23:47)
[2023-06-10] MEDS: hydrALAZINE HCl 50 MG TABLET PO (23:47)
[2023-06-10] MEDS: metFORMIN HCl 500 MG TABLET PO (23:49)
[2023-06-10 23:55] VITALS: BP 146/81; PULSE 77; RESP 18; TEMP 36.8; O2SAT 97
[2023-06-11] MEDS: Omeprazole 40 MG CAPSULE.DR PO (05:56)
--- NOTE | 2023-06-11 06:39 | PC.NURSE ---
Patient was up most part of the night, no distress observed/reported, medication compliant, disposition per care team is current provider, prison will come at 8 am to picker, behavior non concerning, VSS, will continue to monitor.
--- NOTE | 2023-06-11 07:12 | PC.NURSE ---
Resumed care of patient, he is currently eating breakfast, 1:1 remains at bedside d/t mobility concerns. At this time has voiced he is not happy about going back to the assisted. D/c plan remains in place at 0800 this AM via assisted picking him up.
[2023-06-11 07:57] VITALS: BP 153/45; PULSE 104; RESP 20; TEMP 36.1; O2SAT 98
[2023-06-11] MEDS: Divalproex Sodium ER 500 MG TAB.ER.24H 1000 MG PO (07:58)
[2023-06-11] MEDS: risperiDONE 3 MG TABLET PO (07:58)
[2023-06-11] MEDS: hydrALAZINE HCl 50 MG TABLET PO (07:58)
[2023-06-11] MEDS: Propranolol HCL 20 MG TABLET PO (07:58)
[2023-06-11] MEDS: Gabapentin 100 MG CAPSULE 200 MG PO (07:58)
[2023-06-11] MEDS: Atorvastatin Calcium 10 MG TABLET PO (07:59)
[2023-06-11] MEDS: lisinopriL 20 MG TABLET PO (07:59)
[2023-06-11] MEDS: metFORMIN HCl 500 MG TABLET PO (07:59)
--- NOTE | 2023-06-11 08:03 | PC.NURSE ---
Pt reporting Chest pain at this time, reporting it started last night, and is on both sides of his chest, pt then reports he is not shaking, as he holds up his arms. Vitals stable, MD aware, no new orders placed. Emotional support provided, pt is upset about [facility] and does not want to go back. Coping mechanisms reviewed. Pt took all morning medications with no complaints.
== END 2023-06-11 08:25 | disposition other institution (70) ==
PROVIDERS: Physician Assistant; Emergency Provider Internal Medicine; PCP Internal Medicine
DX: F20.9 Schizophrenia, unspecified (principal); F81.9 Developmental disorder of scholastic skills, unspecified; E11.9 Type 2 diabetes mellitus without complications; I10 Essential (primary) hypertension; E78.5 Hyperlipidemia, unspecified; I48.91 Unspecified atrial fibrillation; Z79.899 Other long term (current) drug therapy; Z79.84 Long term (current) use of oral hypoglycemic drugs
CPT/HCPCS: 36415; 80053; 80143; 80179; 80307; 81001; 81003; 83690; 85025; 99284; 99285; S9485

== ENCOUNTER 2023-06-14 22:21 | Emergency (ER) | payer MEDICARE, MEDICAID, SELFPAY ==
--- NOTE | 2023-06-14 | ECG_ITS ---
Test Reason : CP Blood Pressure : / mmHG Vent. Rate : 073 BPM Atrial Rate : 073 BPM P-R Int : 186 ms QRS Dur : 076 ms QT Int : 382 ms P-R-T Axes : 053 -17 042 degrees QTc Int : 420 ms Artifact in tracing Normal sinus rhythm Probbably Normal ECG When compared with ECG of 05-MAR-2023 19:34, No significant change was found Referred By: Generic ED Physician Electronically Signed By:AP MONTGOMERY
[2023-06-14 22:45] VITALS: BP 118/51; PULSE 70; RESP 14; TEMP 36.8; O2SAT 97
[2023-06-14 23:09] VITALS: BP 118/51; BP 150/80; PULSE 70; PULSE 74; RESP 17; TEMP 36.5; O2SAT 98; O2SAT 99; BMI 42.4
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
[2023-06-15 00:24] LABS: MANUAL DIFF FLAG NO
[2023-06-15 00:32] LABS: Appearance Urine Clear; Color Urine Yellow; Glucose Urine UA >=1000 mg/dL (Negative); Leukocyte Esterase Urine Negative (Negative); Nitrite Urine Negative (Negative); PH 5.5 (5.0-9.0); Specific Gravity - Urine 1.025 (1.005-1.025); UMIC TRIGGER UACC YES; Urine Blood Negative (Negative); Urine Ketones Negative (Negative); Urine Protein Negative (Neg-Trace)
[2023-06-15 00:38] LABS: Anion Gap 17 (12-20); Blood Urea Nitrogen 37 mg/dL (9-16); Calcium 9.1 mg/dL (8.4-10.2); Carbon Dioxide 20 mmol/L (22-29); Chloride 104 mmol/L (96-108); Creatinine Clr Calc Pharmacy 66.7; Estimated Glomerular Filt Rate 48; Glucose Random 186 mg/dL (60-115); Potassium 4.9 mmol/L (3.3-5.1); Sodium 136 mmol/L (135-145)
[2023-06-15 00:40] LABS: Basophils Percent Auto 0.5 % (0-2); Eosinophils Absolute Auto 0.1 X10*3/uL (0.0-0.4); Eosinophils Percent Auto 2.4 % (0-4); Hematocrit 36.2 % (42.0-52.0); Hemoglobin 12.1 g/dl (14.0-18.0); Imm Gran Abs Auto 0.07 X10*3/uL (0.00-0.03); Imm Gran Pct Auto 1.2 % (0.0-0.4); Lymphocytes Absolute Auto 1.9 X10*3/uL (1.2-4.9); Lymphocytes Percent Auto 32.4 % (20-40); Mean Corpuscular HGB Conc 33.4 g/dl (31.0-36.0); Mean Corpuscular Hemoglobin 29.6 pg (27.0-33.0); Mean Corpuscular Volume 88.5 fL (80.0-98.0); Mean Platelet Volume 10.6 fL (9.4-12.4); Monocytes Absolute Auto 0.6 X10*3/uL (0.1-1.2); Monocytes Percent Auto 10.1 % (2-11); Neutrophils Absolute Auto 3.1 x10*3/uL (2.0-8.3); Neutrophils Percent Auto 53.4 % (45-73); Platelet Count 119 X10*3/uL (160-400); Red Blood Count 4.09 X10*6/uL (4.60-5.80); Red Cell Distribution Width 11.9 % (11.0-16.0); White Blood Count 5.7 X10*3/uL (4.8-10.8)
[2023-06-15 00:43] LABS: Bacteria Urine None Seen (None Seen); Hyaline Casts Urine 0-2 /LPF (0-2); RBC Urine 0-2 /HPF (0-2); Squamous Epithelial Cell Urine 0-2 /HPF (0-2); WBC Urine 0-5 /HPF (0-5)
[2023-06-15 00:45] LABS: Troponin-I High Sensitivity 4.3 ng/L (<3.5-35.0)
[2023-06-15 00:46] LABS: Amphetamine Screen Urine Not Detected (Not Detect); Barbiturates, Urine Not Detected (Not Detect); Benzodiazepines Screen Urine Not Detected (Not Detect); Cannabinoid Screen Urine Not Detected (Not Detect); Cocaine Screen Urine Not Detected (Not Detect); Fentanyl, urine Not Detected (Not Detect); Opiate Screen Urine Not Detected (Not Detect); Phencyclidine Screen Urine Not Detected (Not Detect)
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
[2023-06-15 05:07] VITALS: BP 111/68; PULSE 69; RESP 18; O2SAT 95
--- NOTE | 2023-06-15 06:18 | PC.NURSE ---
PT from detention, Reporting CP all over chest, radiating down bilateral legs and ankles. Pt also reports getting into verbal altercations with roommate. Pt reports SI/HI, states i don't feel safe, i want to choke myself with my hands Pt reports hearing voices to hurt himself and others. Pt proceeds to be attention seeking to anyone that walks by the room, requesting food, medications that were due at 8 am. Blood work collected and sent to lab, urine sample collected and sent to lab.
--- NOTE | 2023-06-15 07:51 | PC.NURSE ---
CARE team michael in to see pt
[2023-06-15 08:22] VITALS: BP 133/74; PULSE 68; RESP 13; TEMP 36.5; O2SAT 97
[2023-06-15 10:37] VITALS: BP 127/67; PULSE 67; RESP 14; TEMP 36.8; O2SAT 98
--- NOTE | 2023-06-15 10:58 | MHC.EDTECH ---
Patient incontinent of stool and urine. T/w and help of another geoscience technician, patient was cleaned up and full bed change done. Patient repositioned. Gave urinal to patient and instructed to use as he did prior, and he agreed.
--- NOTE | 2023-06-15 11:13 | ED.CHESTPAIN ---
HPI - Chest Pain General Chief Complaint: Chest Pain Stated Complaint: chest pain Time Seen by Provider: 06/14/23 22:51 Source: patient Mode of arrival: EMS Related Data Home Medications Medication Instructions Recorded Confirmed fluticasone propionate 50 2 spray intranasal BID 11/19/22 06/10/23 mcg/actuation nasal spray,suspension atorvastatin 10 mg tablet 10 mg PO DAILY 06/10/23 06/10/23 dexlansoprazole 60 mg 60 mg PO DAILY 06/10/23 06/10/23 capsule,biphase delayed release divalproex 500 mg tablet,extended 1,000 mg PO BID 06/10/23 06/10/23 release 24 hr empagliflozin 10 mg tablet 10 mg PO DAILY 06/10/23 06/10/23 (Jardiance) fluticasone 250 mcg-salmeterol 50 1 ea inhalation BID 06/10/23 06/10/23 mcg/dose blistr powdr for inhalation (Advair Diskus) gabapentin 100 mg capsule 200 mg PO BID 06/10/23 06/10/23 hydralazine 50 mg tablet 50 mg PO TID 06/10/23 06/10/23 lisinopril 20 mg tablet 20 mg PO DAILY 06/10/23 06/10/23 metformin 500 mg tablet 500 mg PO BID 06/10/23 06/10/23 risperidone 3 mg tablet 3 mg PO BID 06/10/23 06/10/23 Previous Rx's Medication Instructions Recorded acetaminophen 325 mg tablet 650 mg PO Q4H PRN fever or pain 90 06/11/22 days #180 tabs lactase 3,000 unit tablet (Lactaid) 3,000 unit PO .QD PRN lactose 10/14/22 intolerance #90 tabs furosemide 20 mg tablet (Lasix) 20 mg PO Q OTHER DAY #45 tabs 10/25/22 propranolol 20 mg tablet 20 mg PO TID@0800,1600,2000 90 10/25/22 days #270 tabs albuterol sulfate 90 mcg/actuation 2 puff inhalation Q6H PRN Wheezing 05/20/23 aerosol inhaler #8.5 grams Allergies Allergy/AdvReac Type Severity Reaction Status Date / Time Sulfa (Sulfonamide Allergy Severe CHAVEZ Verified 06/14/23 23:18 Antibiotics) ALICIA REACTION, Chavez Alicia trimethoprim Allergy Mild UNKNOWN Verified 05/16/23 11:00 lactose AdvReac Mild STOMACH Verified 05/16/23 11:00 UPSET PMFSH Past Medical History Medical History A-fib Abdominal pain Abnormal EKG Acute kidney injury Anemia Annual physical exam Anxiety Arrhythmia Asthma Atrial fib/flutter, transient Atrial flutter Back pain Back pain Cerebellar ataxia Contusion of left ankle Essential hypertension Fall Gait instability Hospital discharge follow-up Hyperlipidemia LDL goal <100 Hypertension Hyponatremia Lactose intolerance Left-sided chest pain Mental disability Musculoskeletal chest pain Positive colorectal cancer screening using Cologuard test Precordial chest pain Proteinuria Right ankle pain Seizure disorder Type 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 Vertigo Surgical History History of orchiectomy Hx of colonoscopy Family History Family History Father Myocardial infarction CVD (cardiovascular disease) Diabetes mellitus Mother Diabetes mellitus HTN (hypertension) Brother In good health Sister In good health Social History Social History Household Members: Other Household Members Other:: from senior living Housing: Other Housing Other:: senior living Do you presently have visiting nurse or other home services: Yes Alcohol intake: never Patient Tobacco Use Status: Never used Tobacco e-Cigarette/Vaping Use: Never Used Second Hand Smoke Exposure: No Advance Directives: No Advance Directives Information Provided: No Advance Directives Date on File: 05/23/21 service: No Current occupational status: disabled Cognitive needs: Yes (walker) Hearing needs: No Vision needs: Yes (glasses) Physical Exam Vital Signs: Vital Signs: Last Vital Signs Temp 98.2 F 06/15/23 10:37 Pulse 67 06/15/23 10:37 Resp 14 06/15/23 10:37 BP 127/67 06/15/23 10:37 Pulse Ox 98 06/15/23 10:37 O2 Del Method Room Air 06/15/23 10:37 BMI result Body Mass Index 42.4 Medical Decision Making Lab Data 06/15/23 00:00 06/15/23 00:00 Labs: Lab Results 06/15/23 06/15/23 06/15/23 Range/Units 00:00 00:00 00:00 WBC 5.7 (4.8-10.8) X10*3/uL RBC 4.09 L (4.60-5.80) X10*6/uL Hgb 12.1 L (14.0-18.0) g/dl Hct 36.2 L (42.0-52.0) % MCV 88.5 (80.0-98.0) fL MCH 29.6 (27.0-33.0) pg MCHC 33.4 (31.0-36.0) g/dl RDW 11.9 (11.0-16.0) % Plt Count 119 L (160-400) X10*3/uL MPV 10.6 (9.4-12.4) fL Immature Gran % (Auto) 1.2 H (0.0-0.4) % Neut % (Auto) 53.4 (45-73) % Lymph % (Auto) 32.4 (20-40) % [place] % (Auto) 10.1 (2-11) % Eos % (Auto) 2.4 (0-4) % Baso % (Auto) 0.5 (0-2) % Lymph # (Auto) 1.9 (1.2-4.9) X10*3/uL [place] # (Auto) 0.6 (0.1-1.2) X10*3/uL Eos # (Auto) 0.1 (0.0-0.4) X10*3/uL Baso # (Auto) 0.0 (0.0-0.2) X10*3/uL Abs Immat Gran (auto) 0.07 H (0.00-0.03) X10*3/uL Absolute Neuts (auto) 3.1 (2.0-8.3) x10*3/uL Absolute Nucleated RBC 0.000 (0.0-0.012) X10*3/uL Nucleated RBC % (auto) 0.0 (0.0-0.2) /100WBC Sodium 136 (135-145) mmol/L Potassium 4.9 (3.3-5.1) mmol/L Chloride 104 (96-108) mmol/L Carbon Dioxide 20 L (22-29) mmol/L Anion Gap 17 (12-20) BUN 37 H (9-16) mg/dL Creatinine 1.54 H (0.5-1.4) mg/dL Estim Creat Clear Calc 66.7 Estimated GFR 48 Random Glucose 186 H (60-115) mg/dL Calcium 9.1 (8.4-10.2) mg/dL Troponin I High Sens 4.3 (<3.5-35.0) ng/L Urine Color Urine Appearance Urine pH (5.0-9.0) Ur Specific [place] (1.005-1.025) Urine Protein (Neg-Trace) mg/dL Urine Glucose (UA) (Negative) mg/dL Urine Ketones (Negative) mg/dL Urine Blood (Negative) Urine Nitrite (Negative) Ur Leukocyte Esterase (Negative) Urine RBC (0-2) /HPF Urine WBC (0-5) /HPF Ur Squamous Epith Cells (0-2) /HPF Urine Bacteria (None Seen) Hyaline Casts (0-2) /LPF Urine Opiates Screen (Not Detect) Urine Fentanyl Screen (Not Detect) Ur Barbiturates Screen (Not Detect) Ur Phencyclidine Scrn (Not Detect) Ur Amphetamines Screen (Not Detect) U Benzodiazepines Scrn (Not Detect) Urine Cocaine Screen (Not Detect) U Marijuana (THC) Screen (Not Detect) 06/15/23 06/15/23 Range/Units 00:11 00:11 WBC (4.8-10.8) X10*3/uL RBC (4.60-5.80) X10*6/uL Hgb (14.0-18.0) g/dl Hct (42.0-52.0) % MCV (80.0-98.0) fL MCH (27.0-33.0) pg MCHC (31.0-36.0) g/dl RDW (11.0-16.0) % Plt Count (160-400) X10*3/uL MPV (9.4-12.4) fL Immature Gran % (Auto) (0.0-0.4) % Neut % (Auto) (45-73) % Lymph % (Auto) (20-40) % [place] % (Auto) (2-11) % Eos % (Auto) (0-4) % Baso % (Auto) (0-2) % Lymph # (Auto) (1.2-4.9) X10*3/uL [place] # (Auto) (0.1-1.2) X10*3/uL Eos # (Auto) (0.0-0.4) X10*3/uL Baso # (Auto) (0.0-0.2) X10*3/uL Abs Immat Gran (auto) (0.00-0.03) X10*3/uL Absolute Neuts (auto) (2.0-8.3) x10*3/uL Absolute Nucleated RBC (0.0-0.012) X10*3/uL Nucleated RBC % (auto) (0.0-0.2) /100WBC Sodium (135-145) mmol/L Potassium (3.3-5.1) mmol/L Chloride (96-108) mmol/L Carbon Dioxide (22-29) mmol/L Anion Gap (12-20) BUN (9-16) mg/dL Creatinine (0.5-1.4) mg/dL Estim Creat Clear Calc Estimated GFR Random Glucose (60-115) mg/dL Calcium (8.4-10.2) mg/dL Troponin I High Sens (<3.5-35.0) ng/L Urine Color Yellow Urine Appearance Clear Urine pH 5.5 (5.0-9.0) Ur Specific [place] 1.025 (1.005-1.025) Urine Protein Negative (Neg-Trace) mg/dL Urine Glucose (UA) >=1000 H (Negative) mg/dL Urine Ketones Negative (Negative) mg/dL Urine Blood Negative (Negative) Urine Nitrite Negative (Negative) Ur Leukocyte Esterase Negative (Negative) Urine RBC 0-2 (0-2) /HPF Urine WBC 0-5 (0-5) /HPF Ur Squamous Epith Cells 0-2 (0-2) /HPF Urine Bacteria None Seen (None Seen) Hyaline Casts 0-2 (0-2) /LPF Urine Opiates Screen Not Detected (Not Detect) Urine Fentanyl Screen Not Detected (Not Detect) Ur Barbiturates Screen Not Detected (Not Detect) Ur Phencyclidine Scrn Not Detected (Not Detect) Ur Amphetamines Screen Not Detected (Not Detect) U Benzodiazepines Scrn Not Detected (Not Detect) Urine Cocaine Screen Not Detected (Not Detect) U Marijuana (THC) Screen Not Detected (Not Detect) Discharge Plan Discharge Clinical Impression: Depression, Feeling suicidal, Chest wall pain Patient Disposition: Home, Self-Care Instructions: Depression (DC) Additional Instructions: follow-up with your primary care physician return if you are worse Prescriptions: No Action acetaminophen 325 mg tablet 650 mg PO Q4H PRN (Reason: fever or pain) 90 Days Qty: 180 2RF lactase [Lactaid] 3,000 unit tablet 3,000 unit PO .QD PRN (Reason: lactose intolerance) Qty: 90 3RF Rx Instructions: take at the start of drinking milk only propranolol 20 mg tablet 20 mg PO TID@0800,1600,2000 90 Days Qty: 270 3RF furosemide [Lasix] 20 mg tablet 20 mg PO Q OTHER DAY Qty: 45 2RF albuterol sulfate 90 mcg/actuation HFA aerosol inhaler 2 puff INHALATION Q6H PRN (Reason: Wheezing) Qty: 8.5 0RF fluticasone propionate 50 mcg/actuation spray,suspension 2 spray INTRANASAL BID metformin 500 mg tablet 500 mg PO BID atorvastatin 10 mg tablet 10 mg PO DAILY lisinopril 20 mg tablet 20 mg PO DAILY risperidone 3 mg tablet 3 mg PO BID divalproex 500 mg tablet extended release 24 hr 1,000 mg PO BID hydralazine 50 mg tablet 50 mg PO TID gabapentin 100 mg capsule 200 mg PO BID dexlansoprazole 60 mg capsule,biphase delayed releas 60 mg PO DAILY Jardiance 10 mg tablet 10 mg PO DAILY fluticasone propion-salmeterol [Advair Diskus] 250-50 mcg/dose blister with device 1 ea inhalation BID Interventions: ED Discharge Assessment Last Done: 06/15/23 12:38 Discharge Date/Time: 06/15/23 12:38
== END 2023-06-15 12:38 | disposition home or self-care (01) ==
PROVIDERS: Emergency Provider Internal Medicine
DX: F32.A Depression, unspecified (principal); R45.851 Suicidal ideations; R07.89 Other chest pain; F20.9 Schizophrenia, unspecified; F81.9 Developmental disorder of scholastic skills, unspecified; E11.9 Type 2 diabetes mellitus without complications; I10 Essential (primary) hypertension; E78.5 Hyperlipidemia, unspecified; Z79.84 Long term (current) use of oral hypoglycemic drugs; Z79.899 Other long term (current) drug therapy; Z79.02 Long term (current) use of antithrombotics/antiplatelets
CPT/HCPCS: 36415; 80048; 80307; 81001; 84484; 85025; 93005; 99285; S9485

== ENCOUNTER → 2023-06-14 22:31 | Outpatient (BNV) | payer MEDICARE, MEDICAID, SELFPAY | PROVIDERS: Emergency Provider Internal Medicine; Visit Provider Internal Medicine | DX: R07.9 Chest pain, unspecified (principal) | CPT/HCPCS: 93010 ==

== ENCOUNTER 2023-06-15 14:57 | Emergency (ER) | payer MEDICARE, MEDICAID, SELFPAY ==
--- NOTE | 2023-06-15 15:03 | ECG_ITS ---
Test Reason : CHEST PAIN Blood Pressure : / mmHG Vent. Rate : 081 BPM Atrial Rate : 081 BPM P-R Int : 190 ms QRS Dur : 086 ms QT Int : 380 ms P-R-T Axes : 063 -24 054 degrees QTc Int : 441 ms Normal sinus rhythm Cannot rule out inferior infarct Abnormal ECG When compared with ECG of 14-JUN-2023 22:31, No significant change was found Referred By: Veda Price Electronically Signed By:Oni Mcneil
[2023-06-15 15:17] VITALS: BP 126/77; BP 146/81; PULSE 72; PULSE 84; RESP 18; TEMP 36.8; O2SAT 98; O2SAT 99; BMI 41.2
--- NOTE | 2023-06-15 15:55 | ED_ITS ---
HPI - General Adult General Chief complaint: Psychiatric Symptoms Stated complaint: chest pain/suicidal ideations Time Seen by Provider: 06/15/23 15:54 Source: patient and EMS Mode of arrival: EMS Limitations: no limitations History of Present Illness HPI narrative: Patient is a 52 year old assigned male at with a history of schizophrenia, chronic suicidal ideation, and chronic chest pain presenting to the emergency department today with chest pain and feeling suicidal. Patient states that his chest always hurts and he is feeling particularly suicidal today because his intermediate roommate is being mean to him and he does not want to return to his intermediate. Patient denies any dizziness, lightheadedness, abdominal pain, nausea, vomiting, fever, chills, blurry vision, double vision, loss of vision, difficulty breathing, shortness of breath, back pain, night sweats, pain with urination, increased urinary frequency, increased urinary urgency, blood in his urine or stool, syncope or a near syncopal episode, recent trauma or falls, bowel incontinence, bladder incontinence, bowel retention, bladder retention, or any other complaints at this time. Location: chest Severity: mild Severity scale (1-10): 3 Relieving factors: none Exacerbating factors: none Associated symptoms: denies other symptoms Treatments prior to arrival: none Related Data Home Medications Medication Instructions Recorded Confirmed fluticasone propionate 50 2 spray intranasal BID 11/19/22 06/10/23 mcg/actuation nasal spray,suspension atorvastatin 10 mg tablet 10 mg PO DAILY 06/10/23 06/10/23 dexlansoprazole 60 mg 60 mg PO DAILY 06/10/23 06/10/23 capsule,biphase delayed release divalproex 500 mg tablet,extended 1,000 mg PO BID 06/10/23 06/10/23 release 24 hr empagliflozin 10 mg tablet 10 mg PO DAILY 06/10/23 06/10/23 (Jardiance) fluticasone 250 mcg-salmeterol 50 1 ea inhalation BID 06/10/23 06/10/23 mcg/dose blistr powdr for inhalation (Advair Diskus) gabapentin 100 mg capsule 200 mg PO BID 06/10/23 06/10/23 hydralazine 50 mg tablet 50 mg PO TID 06/10/23 06/10/23 lisinopril 20 mg tablet 20 mg PO DAILY 06/10/23 06/10/23 metformin 500 mg tablet 500 mg PO BID 06/10/23 06/10/23 risperidone 3 mg tablet 3 mg PO BID 06/10/23 06/10/23 Previous Rx's Medication Instructions Recorded acetaminophen 325 mg tablet 650 mg PO Q4H PRN fever or pain 90 06/11/22 days #180 tabs lactase 3,000 unit tablet (Lactaid) 3,000 unit PO .QD PRN lactose 10/14/22 intolerance #90 tabs furosemide 20 mg tablet (Lasix) 20 mg PO Q OTHER DAY #45 tabs 10/25/22 propranolol 20 mg tablet 20 mg PO TID@0800,1600,2000 90 10/25/22 days #270 tabs albuterol sulfate 90 mcg/actuation 2 puff inhalation Q6H PRN Wheezing 05/20/23 aerosol inhaler #8.5 grams Allergies Allergy/AdvReac Type Severity Reaction Status Date / Time Sulfa (Sulfonamide Allergy Severe CHAVEZ Verified 06/14/23 23:18 Antibiotics) ALICIA REACTION, Chavez Alicia trimethoprim Allergy Mild UNKNOWN Verified 05/16/23 11:00 lactose AdvReac Mild STOMACH Verified 05/16/23 11:00 UPSET Review of Systems Constitutional: Constitutional: Reports no additional constitutional complaint s, Denies chills, Denies fever(s) and Denies night sweats Eyes: Eyes: Reports no additional eye complaints, Denies blurry vision, Denies change in vision, Denies diplopia, Denies eye discharge, Denies loss of vision and Denies eye pain ENT: Denies dizziness Cardiovascular: Cardiovascular: Reports no additional cardiovascular complaints, Reports chest pain, Denies lightheadedness, Denies Loss of Consciousness and Denies dyspnea Respiratory: Respiratory: Reports no additional respiratory complaints and De nies dyspnea Gastrointestinal: Gastrointestinal: Reports no additional gastrointestinal complaints, Denies abdominal pain, Denies melena, Denies hematochezia, Denies change in bowel habits and Denies change in stool character Genitourinary: Genitourinary: Reports no additional male genitourinary complaints, Denies hematuria, Denies oliguria, Denies difficulty urinating, Denies dysuria, Denies urinary frequency, Denies urinary hesitancy, Denies urinary incontinence and Denies urinary urgency Musculoskeletal: Musculoskeletal: Reports no additional musculoskeletal complaints, Denies numbness and Denies tingling Neurologic: Denies dizziness, Denies loss of vision, Denies numbness and Denies tingling Psychiatric: Psychiatric: Reports no additional psychiatric complaints, Denies homicidal ideation and Reports suicidal ideation Endocrine: Endocrine: Reports no additional endocrine complaints Hematologic/Lymphatic: Hematologic/Lymphatic: Reports no additional hematologic/lymphatic complaints Allergic/Immunologic: Allergic/Immunologic: Reports no additional allergic/immunologic complaints [facility] Past Medical History Attestation statement: The following information was validated with the patient. Source: old records reviewed and nursing notes reviewed Medical History A-fib Abdominal pain Abdominal pain Abnormal EKG Acute kidney injury Anemia Ankle pain, left Annual physical exam Anxiety Arrhythmia Asthma Atrial fib/flutter, transient Atrial flutter Back pain Back pain Cerebellar ataxia Chest pain Contusion of left ankle COVID-19 Diarrhea Essential hypertension Fall Feeling suicidal Gait instability Hospital discharge follow-up Hyperlipidemia LDL goal <100 Hypertension Hypomagnesemia Hyponatremia Lactose intolerance Left ankle sprain Left-sided chest pain Mental disability Musculoskeletal chest pain Positive colorectal cancer screening using Cologuard test Precordial chest pain Proteinuria Right ankle pain Seizure disorder Suicidal ideation Tinea cruris Type 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 Vertigo Surgical History History of orchiectomy Hx of colonoscopy Family History Family History Father Myocardial infarction CVD (cardiovascular disease) Diabetes mellitus Mother Diabetes mellitus HTN (hypertension) Brother In good health Sister In good health Social History Social History Household Members: Other Household Members Other:: from intermediate Housing: Other Housing Other:: intermediate Do you presently have visiting nurse or other home services: Yes Alcohol intake: never Patient Tobacco Use Status: Never used Tobacco Smoked in Last 30 Days: No e-Cigarette/Vaping Use: Never Used Second Hand Smoke Exposure: No Use of substances other than those prescribed or required for medical reasons: No Advance Directives: No Advance Directives Information Provided: No Advance Directives Date on File: 05/23/21 service: No Current occupational status: disabled Cognitive needs: Yes (walker) Hearing needs: No Vision needs: Yes (glasses) Physical Exam ED Vital Signs: Vital Signs - 24 hr 06/15/23 15:17 Temperature 98.2 F Pulse Rate 72 Respiratory Rate 18 Blood Pressure 146/81 H Pulse Oximetry 99 Oxygen Delivery Method Room Air BMI result Body Mass Index 41.2 Const General: cooperative, no acute distress, alert and awake Nutritional Appearance: well nourished Orientation/consciousness: patient oriented x3 Limitations: no limitations HENMT Head: Yes normal to inspection and Yes atraumatic Ears: hearing grossly normal bilaterally and external ears normal General nose exam: Normal external nose present, no nasal discharge noted and no epistaxis Face and sinus: Yes normal facial exam, No abrasion and No laceration Mouth: Normal oral and palatal mucosa present, no drooling and no muffled voice Eyes General: appearance normal, both eyes and all related structures Periorbital: periorbital findings normal Eyelids: Yes eyelids normal Conjunctivae: conjunctivae normal Pupils: Equal, round and reactive pupils present EOM: EOMs intact bilaterally Neck Neck: Yes normal visual inspection, Yes full ROM and Yes no lymphadenopathy Chest Chest palpation & inspection: normal inspection of the chest Resp Effort & Inspection: normal respiratory effort and able to speak in complete sentences Auscultation: clear to auscultation bilaterally Cardio Rate: regular rate Rhythm: regular rhythm GI Inspection: Yes normal to inspection Neuro General: patient oriented x3 and moves all extremities Cranial nerves: Yes Equal, round and reactive pupils present Cognition (Neuro): normal cognition Motor exam (neuro): 5/5 motor strength present throughout Sensory Exam: Normal double simultaneous stimulation for sensation Coordination: [id number] test normal Extrem General: Yes normal to inspection, Yes full ROM and Yes capillary refill normal Psych Appearance: grossly normal Mental Status: mental status grossly normal Affect: normal affect Attitude: cooperative Thought content: Suicidality present and no homicidality Insight: Limited insight present (Psych) Course Reevaluation(s) Reevaluation #1: Patient's intermediate staff has arrived to pick him up. Patient is cleared for discharge. Time: 20:08 Medical Decision Making Medical Decision Making MDM Narrative: Patient is a 52 year old assigned male at with a history of chronic suicidal ideation and chronic chest pain presenting to the emergency department today with chest pain and suicidal ideations. Patient's physical exam was unremarkable. Patient's blood work was unremarkable. Patient's EKG was unremarkable. I explained my physical exam findings as well as all test results to the patient. I answered all questions asked by the patient. Patient awaiting evaluation by CARE team. Plan at this time is for the CARE team to communicate with the patient's intermediate that the patient is appropriate to come back and safe from the patient's roommate. Differential Diagnosis Differential Diagnoses: The differential diagnosis associated with the presentation includes Chest pain Suicidal ideation Admission/Observation Consideration of admission/observation: Escalation of care including admission/observation considered Patient would have been admitted to the hospital had his work up had any findings where hospital admission was appropriate and his clinical presentation warranted hospital admission. Lab Data MDM Lab Attestation statement: I reviewed the patient's lab results. My interpretation of these studies and their corresponding values is that they are grossly normal. 06/15/23 16:15 06/15/23 16:15 Labs: Lab Results 06/15/23 06/15/23 06/15/23 Range/Units 16:15 16:15 16:15 WBC 5.4 (4.8-10.8) X10*3/uL RBC 4.15 L (4.60-5.80) X10*6/uL Hgb 12.5 L (14.0-18.0) g/dl Hct 36.7 L (42.0-52.0) % MCV 88.4 (80.0-98.0) fL MCH 30.1 (27.0-33.0) pg MCHC 34.1 (31.0-36.0) g/dl RDW 11.9 (11.0-16.0) % Plt Count 117 L (160-400) X10*3/uL MPV 10.0 (9.4-12.4) fL Immature Gran % (Auto) 0.7 H (0.0-0.4) % Neut % (Auto) 59.2 (45-73) % Lymph % (Auto) 28.0 (20-40) % [place] % (Auto) 10.2 (2-11) % Eos % (Auto) 1.3 (0-4) % Baso % (Auto) 0.6 (0-2) % Lymph # (Auto) 1.5 (1.2-4.9) X10*3/uL [place] # (Auto) 0.6 (0.1-1.2) X10*3/uL Eos # (Auto) 0.1 (0.0-0.4) X10*3/uL Baso # (Auto) 0.0 (0.0-0.2) X10*3/uL Abs Immat Gran (auto) 0.04 H (0.00-0.03) X10*3/uL Absolute Neuts (auto) 3.2 (2.0-8.3) x10*3/uL Absolute Nucleated RBC 0.000 (0.0-0.012) X10*3/uL Nucleated RBC % (auto) 0.0 (0.0-0.2) /100WBC Sodium 138 (135-145) mmol/L Potassium 5.3 H (3.3-5.1) mmol/L Chloride 104 (96-108) mmol/L Carbon Dioxide 21 L (22-29) mmol/L Anion Gap 18 (12-20) BUN 36 H (9-16) mg/dL Creatinine 1.34 (0.5-1.4) mg/dL Estim Creat Clear Calc 77.9 Estimated GFR 56 Random Glucose 126 H (60-115) mg/dL Calcium 9.6 (8.4-10.2) mg/dL Total Bilirubin 0.2 (0.0-1.0) mg/dL AST 17 (5-37) U/L ALT 16 (0-40) U/L Alkaline Phosphatase 83 (39-117) U/L Troponin I High Sens 3.0 (<3.5-35.0) ng/L Total Protein 7.3 (6.5-8.0) g/dL Albumin 3.8 (3.5-5.0) g/dL COVID-19 (MICHAELA) (Negative) COVID-19 Clin Com 06/15/23 Range/Units 16:16 WBC (4.8-10.8) X10*3/uL RBC (4.60-5.80) X10*6/uL Hgb (14.0-18.0) g/dl Hct (42.0-52.0) % MCV (80.0-98.0) fL MCH (27.0-33.0) pg MCHC (31.0-36.0) g/dl RDW (11.0-16.0) % Plt Count (160-400) X10*3/uL MPV (9.4-12.4) fL Immature Gran % (Auto) (0.0-0.4) % Neut % (Auto) (45-73) % Lymph % (Auto) (20-40) % [place] % (Auto) (2-11) % Eos % (Auto) (0-4) % Baso % (Auto) (0-2) % Lymph # (Auto) (1.2-4.9) X10*3/uL [place] # (Auto) (0.1-1.2) X10*3/uL Eos # (Auto) (0.0-0.4) X10*3/uL Baso # (Auto) (0.0-0.2) X10*3/uL Abs Immat Gran (auto) (0.00-0.03) X10*3/uL Absolute Neuts (auto) (2.0-8.3) x10*3/uL Absolute Nucleated RBC (0.0-0.012) X10*3/uL Nucleated RBC % (auto) (0.0-0.2) /100WBC Sodium (135-145) mmol/L Potassium (3.3-5.1) mmol/L Chloride (96-108) mmol/L Carbon Dioxide (22-29) mmol/L Anion Gap (12-20) BUN (9-16) mg/dL Creatinine (0.5-1.4) mg/dL Estim Creat Clear Calc Estimated GFR Random Glucose (60-115) mg/dL Calcium (8.4-10.2) mg/dL Total Bilirubin (0.0-1.0) mg/dL AST (5-37) U/L ALT (0-40) U/L Alkaline Phosphatase (39-117) U/L Troponin I High Sens (<3.5-35.0) ng/L Total Protein (6.5-8.0) g/dL Albumin (3.5-5.0) g/dL COVID-19 (MICHAELA) Negative (Negative) COVID-19 Clin Com See Note Independent Interpretation I performed an independent interpretation of an: EKG Interpretation: Vent. Rate: 081 BPM ? ? Atrial Rate: 081 BPM P-R Int: 190 ms? QRS Dur: 086 ms QT Int: 380 ms ? ? ? P-R-T Axes: 063 -24 054 degrees QTc Int: 441 ms ? Normal sinus rhythm Normal ECG When compared with ECG of 14-JUN-2023 22:31, No significant change was found DD/ 1713 Independent Historian Clinical information obtained from an independent historian. History obtained from or confirmed by: EMS (EMS provided additional history and confirmed the history provided by the patient.) External Record Review External record reviewed: Other (reviewed previous ED visits) Discharge Plan Discharge Clinical Impression: Chest wall pain Patient Disposition: Home, Self-Care Instructions: Chest Pain (ED) Additional Instructions: Follow up with your primary care provider. Return to the emergency department immediately if your symptoms worsen or if you develop any dizziness, shortness of breath, difficulty breathing, chest pain, blurry vision, loss of vision, nausea, vomiting, abdominal pain, fever, chills, back pain, or any other complaints. Prescriptions: No Action acetaminophen 325 mg tablet 650 mg PO Q4H PRN (Reason: fever or pain) 90 Days Qty: 180 2RF lactase [Lactaid] 3,000 unit tablet 3,000 unit PO .QD PRN (Reason: lactose intolerance) Qty: 90 3RF Rx Instructions: take at the start of drinking milk only propranolol 20 mg tablet 20 mg PO TID@0800,1600,2000 90 Days Qty: 270 3RF furosemide [Lasix] 20 mg tablet 20 mg PO Q OTHER DAY Qty: 45 2RF albuterol sulfate 90 mcg/actuation HFA aerosol inhaler 2 puff INHALATION Q6H PRN (Reason: Wheezing) Qty: 8.5 0RF fluticasone propionate 50 mcg/actuation spray,suspension 2 spray INTRANASAL BID metformin 500 mg tablet 500 mg PO BID atorvastatin 10 mg tablet 10 mg PO DAILY lisinopril 20 mg tablet 20 mg PO DAILY risperidone 3 mg tablet 3 mg PO BID divalproex 500 mg tablet extended release 24 hr 1,000 mg PO BID hydralazine 50 mg tablet 50 mg PO TID gabapentin 100 mg capsule 200 mg PO BID dexlansoprazole 60 mg capsule,biphase delayed releas 60 mg PO DAILY Jardiance 10 mg tablet 10 mg PO DAILY fluticasone propion-salmeterol [Advair Diskus] 250-50 mcg/dose blister with device 1 ea inhalation BID Referrals: PoRobert MD [Primary Care Provider] - Interventions: Douglas-Suicide Risk Severity Scale Last Done: 06/15/23 17:50 Print Language: Lithuanian
[2023-06-15 16:22] LABS: MANUAL DIFF FLAG NO
[2023-06-15 16:26] LABS: Basophils Percent Auto 0.6 % (0-2); Eosinophils Absolute Auto 0.1 X10*3/uL (0.0-0.4); Eosinophils Percent Auto 1.3 % (0-4); Hematocrit 36.7 % (42.0-52.0); Hemoglobin 12.5 g/dl (14.0-18.0); Imm Gran Abs Auto 0.04 X10*3/uL (0.00-0.03); Imm Gran Pct Auto 0.7 % (0.0-0.4); Lymphocytes Absolute Auto 1.5 X10*3/uL (1.2-4.9); Mean Corpuscular HGB Conc 34.1 g/dl (31.0-36.0); Mean Corpuscular Hemoglobin 30.1 pg (27.0-33.0); Mean Corpuscular Volume 88.4 fL (80.0-98.0); Monocytes Absolute Auto 0.6 X10*3/uL (0.1-1.2); Monocytes Percent Auto 10.2 % (2-11); Neutrophils Absolute Auto 3.2 x10*3/uL (2.0-8.3); Neutrophils Percent Auto 59.2 % (45-73); Platelet Count 117 X10*3/uL (160-400); Red Blood Count 4.15 X10*6/uL (4.60-5.80); Red Cell Distribution Width 11.9 % (11.0-16.0); White Blood Count 5.4 X10*3/uL (4.8-10.8)
[2023-06-15 16:49] LABS: COVID-19 Test Negative (Negative); IDNOW Serial# 08D9AD1C
[2023-06-15 16:58] LABS: Alanine Aminotransferase 16 U/L (0-40); Albumin Level 3.8 g/dL (3.5-5.0); Alkaline Phosphatase 83 U/L (39-117); Anion Gap 18 (12-20); Aspartate Amino Transferase 17 U/L (5-37); Bilirubin Total 0.2 mg/dL (0.0-1.0); Blood Urea Nitrogen 36 mg/dL (9-16); Calcium 9.6 mg/dL (8.4-10.2); Carbon Dioxide 21 mmol/L (22-29); Chloride 104 mmol/L (96-108); Creatinine Clr Calc Pharmacy 77.9; Estimated Glomerular Filt Rate 56; Glucose Random 126 mg/dL (60-115); Potassium 5.3 mmol/L (3.3-5.1); Sodium 138 mmol/L (135-145); Total Protein 7.3 g/dL (6.5-8.0)
--- NOTE | 2023-06-15 18:25 | MHC.CARE ---
Pt was assessed by CARE team on 06/15 and discharged home to current providers. Shortly after return to nursing home pt stated he was experiencing chest pains and was returned to [facility]. Pt expressed SI at triage. It is unclear if pt returned because he did not receive lunch at nursing home. Per nursing staff, pt indicated he was hungry upon arrival. Per [facility] at nursing home, pt was transported to [facility] due to chest pains. He had no knowledge of pt expressing SI/HI. Pt can return to nursing home upon being medically cleared and cleared by CARE team. T/W met with pt who is endorsing SI, no plan. Pt also endorsing command hallucinations telling him to harm himself. Nahomy Pleitez was consulted, awaiting for reply.
== END 2023-06-15 20:31 | disposition home or self-care (01) ==
PROVIDERS: Physician Assistant Medical; Emergency Provider Emergency Medicine; PCP Internal Medicine
DX: R07.89 Other chest pain (principal); R45.851 Suicidal ideations; Z20.822 Contact with and (suspected) exposure to COVID-19; Z20.828 Contact with and (suspected) exposure to other viral communicable diseases; Z79.899 Other long term (current) drug therapy
CPT/HCPCS: 80048; 80053; 80307; 81001; 84484; 85025; 87635; 93005; 99285; S9485

== ENCOUNTER → 2023-06-15 15:03 | Outpatient (BNV) | payer MEDICARE, MEDICAID, SELFPAY | PROVIDERS: Emergency Provider Emergency Medicine; PCP Internal Medicine; Visit Provider Internal Medicine Cardiovascular Disease | DX: R07.9 Chest pain, unspecified (principal); R94.31 Abnormal electrocardiogram [ECG] [EKG] | CPT/HCPCS: 93010 ==

== ENCOUNTER 2023-07-03 14:52 | Outpatient (AMB) | payer MEDICARE, MEDICAID, SELFPAY ==
--- NOTE | 2023-07-03 15:03 | MHC.OFFVIS ---
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: No Allergies Sulfa (Sulfonamide Antibiotics) Allergy (Severe, Verified 07/03/23 15:11) CHAVEZ ALICIA REACTION, Chavez Alicia trimethoprim Allergy (Mild, Verified 07/03/23 15:11) UNKNOWN lactose Adverse Reaction (Mild, Verified 07/03/23 15:11) STOMACH UPSET Medication List - Last Reconciled 07/03/23 by MARY Barrera acetaminophen 650 mg (2 x 325 mg) PO Q4H PRN 90 days albuterol sulfate 90 mcg/actuation 2 puffs inhalation Q6H PRN alum-mag hydroxide-simeth 400-400-40 mg/5 mL (Mylanta Maximum Strength) 5 mL PO QID PRN atorvastatin 10 mg PO DAILY bismuth subsalicylate (Pepto-Bismol) 524 mg (30 mL) PO QID PRN 7 days blood sugar diagnostic (MobiDough Ultra Test strips) test once daily blood-glucose meter (MobiDough Ultra2 Meter) test once daily dexlansoprazole 60 mg PO DAILY dextromethorphan polistirex ER (Robitussin ER) 10 mL PO Q12H PRN divalproex ER 1,000 mg PO BID empagliflozin (Jardiance) 10 mg PO DAILY fluticasone propion-salmeterol 250-50 mcg/dose (Advair Diskus) 1 ea inhalation BID fluticasone propionate 50 mcg/actuation 2 sprays intranasal BID furosemide (Lasix) 20 mg PO Q OTHER DAY gabapentin 200 mg PO BID hydralazine 50 mg PO TID lactase (Lactaid) 3,000 units PO .QD PRN lancets (LAVEGOuch UltraSoft 2 Lancet) test once daily lisinopril 20 mg PO DAILY metformin 500 mg PO BID [id number]-[id number] 3.5mg-400 unit- 5,000 unit/gram (Triple Antibiotic) 1 appl topical BID PRN ondansetron 4 mg PO Q6-8H PRN propranolol 20 mg PO TID@0800,1600,2000 90 days risperidone 3 mg PO BID HPI follow up testing HPI Details Raulito is a 52 yo male with HTN, HLD, DM, obesity, developmental delay, reports of chest discomfort with negative cardiac evaluation who was recently seen in the emergency room for atypical discomfort and again ruled out for ACS. Today he reports he is not having any chest discomfort. His primary complaint is of right lower abdominal discomfort. He is vague in his description of symptoms. He tells me his breathing is good and does not experience heart palpitations. He has unsteadiness when he tries to ambulate and is currently wearing braces on his lower extremities. His staff member tells me he has an upcoming visit with his PCP to further discuss his unsteadiness. He is currently sitting in a wheelchair. He reports taking all his medications as directed. He resides in a senior living and staff member is present. [facility] Medical History A-fib Abdominal pain Abdominal pain Abnormal EKG Acute kidney injury Anemia Ankle pain, left Annual physical exam Anxiety Arrhythmia Asthma Atrial fib/flutter, transient Atrial flutter Back pain Back pain Cerebellar ataxia Chest pain Contusion of left ankle COVID-19 Diarrhea Essential hypertension Fall Feeling suicidal Gait instability Hospital discharge follow-up Hyperlipidemia LDL goal <100 Hypertension Hypomagnesemia Hyponatremia Lactose intolerance Left ankle sprain Left-sided chest pain Mental disability Musculoskeletal chest pain Positive colorectal cancer screening using Cologuard test Precordial chest pain Proteinuria Right ankle pain Seizure disorder Suicidal ideation Tinea cruris Type 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 Vertigo Surgical History History of orchiectomy Hx of colonoscopy Family History Father Myocardial infarction CVD (cardiovascular disease) Diabetes mellitus Mother Diabetes mellitus HTN (hypertension) Brother In good health Sister In good health Social History Household Members: Other Household Members Other:: from senior living Housing: Other Housing Other:: senior living Do you presently have visiting nurse or other home services: Yes Alcohol intake: never Patient Tobacco Use Status: Never used Tobacco e-Cigarette/Vaping Use: Never Used Second Hand Smoke Exposure: No Advance Directives Date on File: 05/23/21 service: No Current occupational status: disabled Cognitive needs: Yes (walker) Hearing needs: No Vision needs: Yes (glasses) Review of Systems Const All systems reviewed & are unremarkable except as noted in HPI and below ENT Denies dizziness Card Denies chest pain, Denies chest pain at rest, Denies chest pain with activity, Denies rapid heart rate, Denies pedal edema, Denies edema, Denies leg edema, Denies lightheadedness, Denies palpitations, Reports dyspnea, Denies dyspnea on exertion and Denies orthopnea Resp Denies cough, Reports dyspnea and Denies dyspnea on exertion GI Denies hematochezia and Denies change in stool character Details: pain in right lower quadrant Musc Reports abnormal gait, Reports limited range of motion, Reports muscle cramps, Reports muscle weakness, Denies numbness, Denies radiating pain into limb, Denies stiffness and Denies tingling Neuro Reports abnormal gait, Denies dizziness, Denies numbness and Denies tingling Endo Denies palpitations Physical Exam Vital Signs: Last Vital Signs Pulse 71 07/03/23 15:04 BP 124/70 07/03/23 15:04 BMI result Body Mass Index 41.0 Const General: cooperative, comfortable and no acute distress Neck Neck: Yes normal visual inspection Resp Effort & Inspection: normal respiratory effort Auscultation: clear to auscultation bilaterally, no crackles, no rales, no rhonchi and no wheezes Cardio Jugular venous distension: no JVD Rate: regular rate Rhythm: regular rhythm Heart sounds: S1 normal heart sound present, S2 normal heart sound present, no gallops, no murmurs and no rubs GI Inspection: Yes normal to inspection Psych Other: morbidly obese, sitting in wheelchair, Mental Status: mental status grossly normal Speech and movement: Clear speech present Attitude: cooperative Insight: Limited insight present (Psych) (unclear full understanding of health) Assessment & Plan Assessment & Plan (1) Atypical chest pain: Code(s): R07.89 - Other chest pain Plan: History of atypical chest discomfort. Prior and recent ER evaluations for this symptoms have shown no ACS. At present he denies having any chest discomfort. He does have developmental delay and description of symptoms seems limited. He is mostly sedentary and currently in a wheelchair. He tells me does ambulate but is unsteady. EKG done on ER visit 06/15/2023 showed sinus rhythm with no acute ST or T-wave abnormalities. He previously underwent a nuclear stress test on 02/01/2022 showing normal myocardial perfusion imaging. Echocardiogram done 01/11/2022 showed EF 60-65%, RV normal, no regional wall motion abnormalities. He does have cardiac risk factors of hypertension, hyperlipidemia, diabetes, obesity, sedentary. He needs ongoing cardiac risk factor modification. No indication of true angina at present. Continue atorvastatin with ideal LDL goal less than 70. Continue propanolol, lisinopril, hydralazine, Lasix without change. [place] blood pressure goal less than 130/85. Blood pressure today 124/70. He can continue to follow with his PCP. Cardiology office visit only if needed. (2) Essential hypertension: Code(s): I10 - Essential (primary) hypertension Plan: Well controlled at present. No med changes made Coding Level of Care Code Est Pt Level 3 (17746) Diagnoses Atypical chest pain R07.89 Essential hypertension I10 Time Spent (min) 20 Comment chart review, document, interview, assess
[2023-07-03 15:04] VITALS: BP 124/70; PULSE 71; BMI 41.0
== END 2023-07-03 15:38 | disposition home or self-care (01) ==
PROVIDERS: PCP Internal Medicine; Referring Provider Internal Medicine; Visit Provider Nurse Practitioner Family
DX: R07.89 Other chest pain (principal); I10 Essential (primary) hypertension
CPT/HCPCS: 99213

== ENCOUNTER → 2023-07-03 14:52 | Outpatient (BNVA) | payer MEDICARE, MEDICAID, SELFPAY | PROVIDERS: PCP Internal Medicine; Referring Provider Internal Medicine; Visit Provider Nurse Practitioner Family | DX: R07.89 Other chest pain (principal); I10 Essential (primary) hypertension | CPT/HCPCS: 99212 ==

== ENCOUNTER 2023-07-11 20:25 | Emergency (ER) | payer MEDICARE, MEDICAID, SELFPAY ==
--- NOTE | 2023-07-11 | ECG_ITS ---
Test Reason : CP Blood Pressure : / mmHG Vent. Rate : 064 BPM Atrial Rate : 064 BPM P-R Int : 174 ms QRS Dur : 086 ms QT Int : 414 ms P-R-T Axes : 059 005 052 degrees QTc Int : 427 ms Normal sinus rhythm with sinus arrhythmia Normal ECG When compared with ECG of 15-JUN-2023 17:13, No significant change was found Referred By: Generic ED Physician Electronically Signed By:LEVI WHITMORE
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
[2023-07-11 20:39] VITALS: BP 150/90; BP 184/96; PULSE 69; PULSE 71; RESP 15; TEMP 37.1; O2SAT 100; O2SAT 98; BMI 41.9
[2023-07-11 20:42] VITALS: PULSE 73; RESP 17; O2SAT 99
[2023-07-11 20:49] LABS: Glucose, Whole Blood 190 mg/dL (60-115)
[2023-07-11 21:33] LABS: Alanine Aminotransferase 19 U/L (0-40); Albumin Level 3.6 g/dL (3.5-5.0); Alkaline Phosphatase 87 U/L (39-117); Anion Gap 16 (12-20); Aspartate Amino Transferase 18 U/L (5-37); Bilirubin Total 0.4 mg/dL (0.0-1.0); Blood Urea Nitrogen 18 mg/dL (9-16); Calcium 9.2 mg/dL (8.4-10.2); Carbon Dioxide 20 mmol/L (22-29); Chloride 106 mmol/L (96-108); Creatinine Clr Calc Pharmacy 98.1; Estimated Glomerular Filt Rate > 60; Glucose Random 174 mg/dL (60-115); Potassium 4.2 mmol/L (3.3-5.1); Sodium 138 mmol/L (135-145); Total Protein 6.7 g/dL (6.5-8.0)
[2023-07-11 21:48] VITALS: BP 154/87; PULSE 64; RESP 14; TEMP 36.7; O2SAT 99
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
--- NOTE | 2023-07-11 22:15 | PC.NURSE ---
1:1 sitter at bedside.
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
[2023-07-11 23:15] LABS: Basophils Percent Auto 0.7 % (0-2); Eosinophils Absolute Auto 0.1 X10*3/uL (0.0-0.4); Eosinophils Percent Auto 1.4 % (0-4); Hematocrit 36.7 % (42.0-52.0); Hemoglobin 12.4 g/dl (14.0-18.0); Imm Gran Abs Auto 0.06 X10*3/uL (0.00-0.03); Lymphocytes Absolute Auto 1.6 X10*3/uL (1.2-4.9); Lymphocytes Percent Auto 27.3 % (20-40); Mean Corpuscular HGB Conc 33.8 g/dl (31.0-36.0); Mean Corpuscular Hemoglobin 30.5 pg (27.0-33.0); Mean Corpuscular Volume 90.2 fL (80.0-98.0); Mean Platelet Volume 9.5 fL (9.4-12.4); Monocytes Absolute Auto 0.6 X10*3/uL (0.1-1.2); Monocytes Percent Auto 10.5 % (2-11); Neutrophils Absolute Auto 3.5 x10*3/uL (2.0-8.3); Neutrophils Percent Auto 59.1 % (45-73); Platelet Count 125 X10*3/uL (160-400); Red Blood Count 4.07 X10*6/uL (4.60-5.80); Red Cell Distribution Width 12.6 % (11.0-16.0); White Blood Count 5.8 X10*3/uL (4.8-10.8)
[2023-07-11 23:30] LABS: Troponin-I High Sensitivity < 2.7 ng/L (<3.5-35.0)
[2023-07-12 00:24] VITALS: RESP 20
--- NOTE | 2023-07-12 00:25 | PC.NURSE ---
per ED provider patient is not endorsing any SI or HI currently. pt is only reporting chest pressure and dizziness at this time. ekg, labs, and chest xray done. per provider cardiac workup is negative including troponin and patient is safe to return to the [facility].
[2023-07-12] MEDS: Acetaminophen 325 MG TABLET 975 MG PO (00:29)
--- NOTE | 2023-07-12 00:57 | MHC.EDTECH ---
Call out to [facility] at 0056 to book transport for pt back home, estimated eta given was 0120
== END 2023-07-12 02:48 | disposition home or self-care (01) ==
PROVIDERS: Emergency Provider Emergency Medicine
DX: R07.89 Other chest pain (principal); Z79.899 Other long term (current) drug therapy
CPT/HCPCS: 36415; 71045; 80053; 82947; 84484; 85025; 93005; 99283; 99285

== ENCOUNTER 2023-07-12 15:29 | Emergency (ER) | payer MEDICARE, MEDICAID, SELFPAY ==
[2023-07-12 16:11] VITALS: BP 120/68; BP 140/76; PULSE 74; PULSE 78; RESP 16; TEMP 36.8; O2SAT 94; O2SAT 97; BMI 41.8
[2023-07-12 16:32] LABS: Glucose, Whole Blood 158 mg/dL (60-115)
--- NOTE | 2023-07-12 16:51 | ED_ITS ---
HPI - Psych General Chief Complaint: Psychiatric Symptoms Stated Complaint: auditory hallucinations Time Seen by Provider: 07/12/23 16:17 Source: patient, EMS and other Mode of arrival: EMS History of Present Illness HPI Narrative: 52-year-old male who is brought in from a skilled nursing by EMS and although triage note states that patient had complained auditory hallucinations patient endorsed to me that he feels like he wants to hurt himself or his roommate. He denies any fevers, chills, nausea, vomiting, decreased appetite, abdominal pain, diarrhea. As per the group director experience who is at the bedside, he states that patient often times will endorse these feelings with new staff members. In addition, the skilled nursing staff member said that they reached out to the care team and told that they would receive a phone call back but there were no phone calls. Patient has history TBI and is diabetic Related Data Home Medications Medication Instructions Recorded Confirmed fluticasone propionate 50 2 spray intranasal BID 11/19/22 07/12/23 mcg/actuation nasal spray,suspension atorvastatin 10 mg tablet 10 mg PO DAILY 06/10/23 07/12/23 dexlansoprazole 60 mg 60 mg PO DAILY 06/10/23 07/12/23 capsule,biphase delayed release divalproex 500 mg tablet,extended 1,000 mg PO BID 06/10/23 07/12/23 release 24 hr empagliflozin 10 mg tablet 10 mg PO DAILY 06/10/23 07/12/23 (Jardiance) fluticasone 250 mcg-salmeterol 50 1 ea inhalation BID 06/10/23 07/12/23 mcg/dose blistr powdr for inhalation (Advair Diskus) gabapentin 100 mg capsule 200 mg PO BID 06/10/23 07/12/23 hydralazine 50 mg tablet 50 mg PO TID 06/10/23 07/12/23 lisinopril 20 mg tablet 20 mg PO DAILY 06/10/23 07/12/23 metformin 500 mg tablet 500 mg PO BID 06/10/23 07/12/23 risperidone 3 mg tablet 3 mg PO BID 06/10/23 07/12/23 Previous Rx's Medication Instructions Recorded acetaminophen 325 mg tablet 650 mg PO Q4H PRN fever or pain 90 06/11/22 days #180 tabs lactase 3,000 unit tablet (Lactaid) 3,000 unit PO .QD PRN lactose 10/14/22 intolerance #90 tabs propranolol 20 mg tablet 20 mg PO TID@0800,1600,2000 90 10/25/22 days #270 tabs blood sugar diagnostic (OneTouch #100 ea 06/17/23 Ultra Test strips) blood-glucose meter (OneTouch #1 ea 06/17/23 Ultra2 Meter) lancets 30 gauge (OneTouch #100 ea 06/17/23 UltraSoft 2 Lancet) furosemide 20 mg tablet (Lasix) 20 mg PO Q OTHER DAY #45 tabs 07/05/23 Allergies Allergy/AdvReac Type Severity Reaction Status Date / Time Sulfa (Sulfonamide Allergy Severe CHAVEZ Verified 07/12/23 16:11 Antibiotics) ALICIA REACTION, Chavez Alicia trimethoprim Allergy Mild UNKNOWN Verified 07/12/23 16:11 lactose AdvReac Mild STOMACH Verified 07/12/23 16:11 UPSET Review of Systems Review of Systems: Pertinent positives and negatives as stated in HPI [facility] Past Medical History Source: nursing notes reviewed Medical History A-fib Abdominal pain Abdominal pain Abnormal EKG Acute kidney injury Anemia Ankle pain, left Annual physical exam Anxiety Arrhythmia Asthma Atrial fib/flutter, transient Atrial flutter Back pain Back pain Cerebellar ataxia Chest pain Contusion of left ankle COVID-19 Diarrhea Essential hypertension Fall Feeling suicidal Gait instability Hospital discharge follow-up Hyperlipidemia LDL goal <100 Hypertension Hypomagnesemia Hyponatremia Lactose intolerance Left ankle sprain Left-sided chest pain Mental disability Musculoskeletal chest pain Positive colorectal cancer screening using Cologuard test Precordial chest pain Proteinuria Right ankle pain Seizure disorder Suicidal ideation Tinea cruris Type 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 Vertigo Surgical History History of orchiectomy Hx of colonoscopy Family History Family History Father Myocardial infarction CVD (cardiovascular disease) Diabetes mellitus Mother Diabetes mellitus HTN (hypertension) Brother In good health Sister In good health Social History Social History Household Members: Other Household Members Other:: from skilled nursing Housing: Other Housing Other:: skilled nursing Do you presently have visiting nurse or other home services: Yes Alcohol intake: never Patient Tobacco Use Status: Never used Tobacco e-Cigarette/Vaping Use: Never Used Second Hand Smoke Exposure: No Advance Directives: No Advance Directives Information Provided: Yes Advance Directives Date on File: 05/23/21 service: No Current occupational status: disabled Cognitive needs: Yes (walker) Hearing needs: No Vision needs: Yes (glasses) Physical Exam Vital Signs: Vital Signs: Last Vital Signs Temp 98.2 F 07/12/23 16:11 Pulse 74 07/12/23 16:11 Resp 16 07/12/23 16:11 BP 120/68 07/12/23 16:11 Pulse Ox 97 07/12/23 16:11 O2 Del Method Room Air 07/12/23 16:11 BMI result Body Mass Index 41.8 VITAL SIGNS: Reviewed. GENERAL: Well developed, well nourished, in no acute distress. HEAD: Normocephalic/atraumatic EYES: PERRLA, EOMI EARS: Ext canals without abnormality NOSE: Nares patent bilateral OROPHARYNX: no oral lesions noted, posterior pharynx clear NECK: Supple, no adenopathy LUNGS: Normal breath sounds. No adventitious sounds or accessory muscle use. SpO2<97> CARDIOVASCULAR: Regular rate and rhythm without noted murmurs ABDOMEN: Soft, non-tender, non-distended with bowel sounds. MUSCULOSKELETAL: No tenderness, deformities, or effusions noted on gross inspection. EXTREMITIES: No cyanosis, clubbing or edema. SKIN: Inspection of the skin reveals no rashes NEUROLOGIC: Alert and oriented x 2. Strength and sensation to light touch were grossly intact x 4. Medical Decision Making Medical Decision Making [facility] Narrative: 52-year-old male with history and clinical presentation slightly suggestive of behavioral driven etiology but will rule out any underlying issues such as inf ection, anemia, electrolyte abnormalities, UTI. In addition, will ask that care team evaluate the patient just to ensure that he is currently at baseline. He is already asking for something to eat and drink and will receive diet lakia zora and crackers. I reviewed all investigations and hematologic indices are grossly stable, there is no leukocytosis or left shift, there is a chronic thrombocytopenia and normocytic anemia. Chemistry indices are grossly within normal limit, ammonia levels within normal limits, beta hydroxybutyrate is within normal limits and patient has minimal hyperglycemia and otherwise liver enzyme electrolytes are without derangements, there is no FERDINAND. Urinalysis is negative for UTI or hematuria. Patient is otherwise medically clear for evaluation by the care team. Patient placed in physician observation because the patient needed more time for care team evaluation. At the time observation was started the patient's vital signs were stable, patient is alert and oriented, neuro: Nonfocal, CV RRR, lungs clear Differential Diagnosis Differential Diagnoses: The differential diagnosis associated with the presentation includes Please see the discussion above Admission/Observation Consideration of admission/observation: Escalation of care including admission/observation considered Please see the discussion above Consult Healthcare Provider Management of the patient was discussed with: Trainer Please see the discussion above Lab Data MDM Lab Attestation statement: I reviewed the patient's lab results. Please see the discussion above 07/12/23 16:43 07/12/23 16:43 Labs: Lab Results 07/12/23 07/12/23 07/12/23 Range/Units 16:28 16:43 16:43 WBC 5.0 (4.8-10.8) X10*3/uL RBC 4.15 L (4.60-5.80) X10*6/uL Hgb 12.3 L (14.0-18.0) g/dl Hct 37.1 L (42.0-52.0) % MCV 89.4 (80.0-98.0) fL MCH 29.6 (27.0-33.0) pg MCHC 33.2 (31.0-36.0) g/dl RDW 12.5 (11.0-16.0) % Plt Count 134 L (160-400) X10*3/uL MPV 8.9 L (9.4-12.4) fL Immature Gran % (Auto) 0.6 H (0.0-0.4) % Neut % (Auto) 59.3 (45-73) % Lymph % (Auto) 31.1 (20-40) % [place] % (Auto) 7.4 (2-11) % Eos % (Auto) 1.2 (0-4) % Baso % (Auto) 0.4 (0-2) % Lymph # (Auto) 1.6 (1.2-4.9) X10*3/uL [place] # (Auto) 0.4 (0.1-1.2) X10*3/uL Eos # (Auto) 0.1 (0.0-0.4) X10*3/uL Baso # (Auto) 0.0 (0.0-0.2) X10*3/uL Abs Immat Gran (auto) 0.03 (0.00-0.03) X10*3/uL Absolute Neuts (auto) 3.0 (2.0-8.3) x10*3/uL Absolute Nucleated RBC 0.000 (0.0-0.012) X10*3/uL Nucleated RBC % (auto) 0.0 (0.0-0.2) /100WBC Sodium 138 (135-145) mmol/L Potassium 4.1 (3.3-5.1) mmol/L Chloride 103 (96-108) mmol/L Carbon Dioxide 27 (22-29) mmol/L Anion Gap 12 (12-20) BUN 21 H (9-16) mg/dL Creatinine 1.15 (0.5-1.4) mg/dL Estim Creat Clear Calc 88.6 Estimated GFR > 60 POC Glucose 158 H (60-115) mg/dL Random Glucose 150 H (60-115) mg/dL Calcium 9.5 (8.4-10.2) mg/dL Total Bilirubin 0.3 (0.0-1.0) mg/dL AST 19 (5-37) U/L ALT 19 (0-40) U/L Alkaline Phosphatase 84 (39-117) U/L Ammonia (13-55) umol/L Total Protein 6.9 (6.5-8.0) g/dL Albumin 3.9 (3.5-5.0) g/dL Beta-Hydroxybutyrate 0.27 (0.02-0.27) mmol/L Urine Color Urine Appearance Urine pH (5.0-9.0) Ur Specific [place] (1.005-1.025) Urine Protein (Neg-Trace) mg/dL Urine Glucose (UA) (Negative) mg/dL Urine Ketones (Negative) mg/dL Urine Blood (Negative) Urine Nitrite (Negative) Ur Leukocyte Esterase (Negative) Urine RBC (0-2) /HPF Urine WBC (0-5) /HPF Ur Squamous Epith Cells (0-2) /HPF Urine Bacteria (None Seen) Hyaline Casts (0-2) /LPF 07/12/23 07/12/23 Range/Units 16:43 18:06 WBC (4.8-10.8) X10*3/uL RBC (4.60-5.80) X10*6/uL Hgb (14.0-18.0) g/dl Hct (42.0-52.0) % MCV (80.0-98.0) fL MCH (27.0-33.0) pg MCHC (31.0-36.0) g/dl RDW (11.0-16.0) % Plt Count (160-400) X10*3/uL MPV (9.4-12.4) fL Immature Gran % (Auto) (0.0-0.4) % Neut % (Auto) (45-73) % Lymph % (Auto) (20-40) % [place] % (Auto) (2-11) % Eos % (Auto) (0-4) % Baso % (Auto) (0-2) % Lymph # (Auto) (1.2-4.9) X10*3/uL [place] # (Auto) (0.1-1.2) X10*3/uL Eos # (Auto) (0.0-0.4) X10*3/uL Baso # (Auto) (0.0-0.2) X10*3/uL Abs Immat Gran (auto) (0.00-0.03) X10*3/uL Absolute Neuts (auto) (2.0-8.3) x10*3/uL Absolute Nucleated RBC (0.0-0.012) X10*3/uL Nucleated RBC % (auto) (0.0-0.2) /100WBC Sodium (135-145) mmol/L Potassium (3.3-5.1) mmol/L Chloride (96-108) mmol/L Carbon Dioxide (22-29) mmol/L Anion Gap (12-20) BUN (9-16) mg/dL Creatinine (0.5-1.4) mg/dL Estim Creat Clear Calc Estimated GFR POC Glucose (60-115) mg/dL Random Glucose (60-115) mg/dL Calcium (8.4-10.2) mg/dL Total Bilirubin (0.0-1.0) mg/dL AST (5-37) U/L ALT (0-40) U/L Alkaline Phosphatase (39-117) U/L Ammonia 21 (13-55) umol/L Total Protein (6.5-8.0) g/dL Albumin (3.5-5.0) g/dL Beta-Hydroxybutyrate (0.02-0.27) mmol/L Urine Color Yellow Urine Appearance Clear Urine pH 6.0 (5.0-9.0) Ur Specific [place] 1.025 (1.005-1.025) Urine Protein Negative (Neg-Trace) mg/dL Urine Glucose (UA) >=1000 H (Negative) mg/dL Urine Ketones Trace (Negative) mg/dL Urine Blood Negative (Negative) Urine Nitrite Negative (Negative) Ur Leukocyte Esterase Negative (Negative) Urine RBC 0-2 (0-2) /HPF Urine WBC 0-5 (0-5) /HPF Ur Squamous Epith Cells 0-2 (0-2) /HPF Urine Bacteria None Seen (None Seen) Hyaline Casts 0-2 (0-2) /LPF External Record Review External record reviewed: Outpatient record, Prior outpatient labs and Prior outpatient radiology Chronic Conditions Patient?s care impacted by: Diabetes and Hypertension Discharge Plan Discharge Clinical Impression: Suicidal ideation Patient Disposition: Still a Patient Prescriptions: No Action acetaminophen 325 mg tablet 650 mg PO Q4H PRN (Reason: fever or pain) 90 Days Qty: 180 2RF lactase [Lactaid] 3,000 unit tablet 3,000 unit PO .QD PRN (Reason: lactose intolerance) Qty: 90 3RF Rx Instructions: take at the start of drinking milk only propranolol 20 mg tablet 20 mg PO TID@0800,1600,2000 90 Days Qty: 270 3RF (DME) OneTouch Ultra Test Strip See Rx Instructions .Route Qty: 100 5RF Rx Instructions: test once daily (DME) blood-glucose meter [OneTouch Ultra2 Meter] Misc See Rx Instructions .Route Qty: 1 0RF Rx Instructions: test once daily (DME) lancets [OneTouch UltraSoft 2 Lancet] 30 gauge misc See Rx Instructions .Route Qty: 100 5RF Rx Instructions: test once daily furosemide [Lasix] 20 mg tablet 20 mg PO Q OTHER DAY Qty: 45 2RF fluticasone propionate 50 mcg/actuation spray,suspension 2 spray INTRANASAL BID metformin 500 mg tablet 500 mg PO BID atorvastatin 10 mg tablet 10 mg PO DAILY lisinopril 20 mg tablet 20 mg PO DAILY risperidone 3 mg tablet 3 mg PO BID divalproex 500 mg tablet extended release 24 hr 1,000 mg PO BID hydralazine 50 mg tablet 50 mg PO TID gabapentin 100 mg capsule 200 mg PO BID dexlansoprazole 60 mg capsule,biphase delayed releas 60 mg PO DAILY Jardiance 10 mg tablet 10 mg PO DAILY fluticasone propion-salmeterol [Advair Diskus] 250-50 mcg/dose blister with device 1 ea inhalation BID Interventions: [place]-Suicide Risk Severity Scale Last Done: 07/12/23 17:38
[2023-07-12 16:54] LABS: MANUAL DIFF FLAG NO
[2023-07-12 16:58] LABS: Basophils Percent Auto 0.4 % (0-2); Eosinophils Absolute Auto 0.1 X10*3/uL (0.0-0.4); Eosinophils Percent Auto 1.2 % (0-4); Hematocrit 37.1 % (42.0-52.0); Hemoglobin 12.3 g/dl (14.0-18.0); Imm Gran Abs Auto 0.03 X10*3/uL (0.00-0.03); Imm Gran Pct Auto 0.6 % (0.0-0.4); Lymphocytes Absolute Auto 1.6 X10*3/uL (1.2-4.9); Lymphocytes Percent Auto 31.1 % (20-40); Mean Corpuscular HGB Conc 33.2 g/dl (31.0-36.0); Mean Corpuscular Hemoglobin 29.6 pg (27.0-33.0); Mean Corpuscular Volume 89.4 fL (80.0-98.0); Mean Platelet Volume 8.9 fL (9.4-12.4); Monocytes Absolute Auto 0.4 X10*3/uL (0.1-1.2); Monocytes Percent Auto 7.4 % (2-11); Neutrophils Percent Auto 59.3 % (45-73); Platelet Count 134 X10*3/uL (160-400); Red Blood Count 4.15 X10*6/uL (4.60-5.80); Red Cell Distribution Width 12.5 % (11.0-16.0)
[2023-07-12 17:04] LABS: Ammonia 21 umol/L (13-55)
[2023-07-12 17:13] LABS: Alanine Aminotransferase 19 U/L (0-40); Albumin Level 3.9 g/dL (3.5-5.0); Alkaline Phosphatase 84 U/L (39-117); Anion Gap 12 (12-20); Aspartate Amino Transferase 19 U/L (5-37); Beta-Hydroxybutyrate 0.27 mmol/L (0.02-0.27); Bilirubin Total 0.3 mg/dL (0.0-1.0); Blood Urea Nitrogen 21 mg/dL (9-16); Calcium 9.5 mg/dL (8.4-10.2); Carbon Dioxide 27 mmol/L (22-29); Chloride 103 mmol/L (96-108); Creatinine Clr Calc Pharmacy 88.6; Estimated Glomerular Filt Rate > 60; Glucose Random 150 mg/dL (60-115); Potassium 4.1 mmol/L (3.3-5.1); Sodium 138 mmol/L (135-145); Total Protein 6.9 g/dL (6.5-8.0)
[2023-07-12 18:13] LABS: Appearance Urine Clear; Color Urine Yellow; Glucose Urine UA >=1000 mg/dL (Negative); Leukocyte Esterase Urine Negative (Negative); Nitrite Urine Negative (Negative); Specific Gravity - Urine 1.025 (1.005-1.025); UMIC TRIGGER UACC YES; Urine Blood Negative (Negative); Urine Ketones Trace mg/dL (Negative); Urine Protein Negative (Neg-Trace)
[2023-07-12 18:19] LABS: Bacteria Urine None Seen (None Seen); Hyaline Casts Urine 0-2 /LPF (0-2); RBC Urine 0-2 /HPF (0-2); Squamous Epithelial Cell Urine 0-2 /HPF (0-2); WBC Urine 0-5 /HPF (0-5)
== END 2023-07-12 22:28 | disposition other institution (70) ==
PROVIDERS: Emergency Provider Student in an Organized Health Care Education/Training Program; PCP Internal Medicine
DX: R45.851 Suicidal ideations (principal); F20.9 Schizophrenia, unspecified; F81.9 Developmental disorder of scholastic skills, unspecified; E11.9 Type 2 diabetes mellitus without complications; I10 Essential (primary) hypertension; E78.5 Hyperlipidemia, unspecified; Z79.899 Other long term (current) drug therapy; Z79.84 Long term (current) use of oral hypoglycemic drugs
CPT/HCPCS: 36415; 80053; 81001; 82010; 82140; 82947; 85025; 99284; S9485

== ENCOUNTER 2023-07-25 10:08 | Outpatient (AMB) | payer MEDICARE, MEDICAID, SELFPAY ==
--- NOTE | 2023-07-25 10:22 | AM.OFFWIN_ITS ---
Intake Vital Signs 07/25/23 10:25 Weight 116.12 kg BP 108/66 Blood Pressure Location Rt brachial Position Sitting Pulse 82 Pulse Source Pulse Oximeter Pulse Oximetry (%) 99 Oxygen Delivery Method Room Air Intake Visit Reasons: EST/rash between legs Intake Note: Patient here for rash in between legs which has been present for about 1 week. Patient Tobacco Use Status: Never used Tobacco Allergies Sulfa (Sulfonamide Antibiotics) Allergy (Severe, Verified 07/25/23 10:25) CHAVEZ ALICIA REACTION, Chavez Alicia trimethoprim Allergy (Mild, Verified 07/25/23 10:25) UNKNOWN lactose Adverse Reaction (Mild, Verified 07/25/23 10:25) STOMACH UPSET Do you need a note to return to daycare/school/sports/work: No HPI HPI Comments History of Present Illness Details 1047 52 yo M presents w/ rash in groin region X 1 week improving however. Here with patients DIALYSIS RN who states has seen evident improvement. No worsening sx. Wears a brief at baseline. No fevers stone chills . Using a fungal powder that was RX by PCP PE w/ intertrigo to groin region b/l no errythema or warmth. 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 No signs of cellulitis Plan- no action needed continue fungal powder as rx. Educated patient on diagnosis and treatment plan, answered all question, patient verbalizes understanding. At this time patient will be discharged home, advised to return with new or worsening symptoms. Educated on worrisome signs and symptoms and when to return. At this time I feel comfortable discharge home. [facility] Medical History Feeling suicidal Tinea cruris Atrial flutter Atrial fib/flutter, transient A-fib Arrhythmia Abnormal EKG Contusion of left ankle Annual physical exam Abdominal pain Back pain Positive colorectal cancer screening using Cologuard test Precordial chest pain Hospital discharge follow-up Chest pain Right ankle pain Musculoskeletal chest pain Left-sided chest pain Back pain Fall Acute kidney injury Gait instability Suicidal ideation COVID-19 Hypomagnesemia Diarrhea Abdominal pain Ankle pain, left Left ankle sprain Seizure disorder Hypertension Anxiety Hyponatremia Cerebellar ataxia Anemia Lactose intolerance Vertigo Asthma Mental disability Type 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 Proteinuria Hyperlipidemia LDL goal <100 Essential hypertension Surgical History Hx of colonoscopy History of orchiectomy Family History Father Myocardial infarction CVD (cardiovascular disease) Diabetes mellitus Mother Diabetes mellitus HTN (hypertension) Brother In good health Sister In good health Social History Household Members: Other Household Members Other:: from detention Housing: Other Housing Other:: detention Do you presently have visiting nurse or other home services: Yes Alcohol intake: never Patient Tobacco Use Status: Never used Tobacco e-Cigarette/Vaping Use: Never Used Second Hand Smoke Exposure: No Advance Directives Date on File: 05/23/21 service: No Current occupational status: disabled Cognitive needs: Yes (walker) Hearing needs: No Vision needs: Yes (glasses) Review of Systems Const Details: Constitutional : No Weight loss, No Fever, No Chills, No Fatigue, No Malaise ENT/Mouth : No sore throat, No Rhinorrhea Eyes: No Eye Pain, No Swelling, No Redness Cardiovascular : No Chest Pain, No SOB, No Dyspnea on Exertion, No Orthopnea, No Edema, No Palpitations Respiratory : No Cough, No Sputum, No Wheezing Gastrointestinal : No Nausea, No Vomiting, No Diarrhea, No Constipation, No abdominal Pain, No Hematochezia, No Melena Genitourinary : No Dysuria, No Urinary Frequency, No Hematuria, Musculoskeletal : No joint pain, No Myalgias, No Joint Swelling Skin : No Skin Lesions, + rash Neuro : No Weakness, No Numbness, No Dizziness, No Headache Psych : No Anxiety/Panic, No Depression All other systems reviewed and are negative All systems reviewed & are unremarkable except as noted in HPI and below Physical Exam Vital Signs: Last Vital Signs Pulse 82 07/25/23 10:25 BP 108/66 07/25/23 10:25 Pulse Ox 99 07/25/23 10:25 Oxygen Delivery Method Room Air 07/25/23 10:25 vss Appearance: Alert.? Oriented X3.? No acute distress.? Head: Normocephalic, atraumatic, no step-offs or deformities Eyes: Pupils equal, round and reactive to light.? CVS: Normal heart rate and rhythm.? Pulses normal.? Respiratory: No respiratory distress.? Breath sounds normal.? Abdomen: Soft and nontender.? Skin: Skin warm and dry.? Normal skin color.? Normal skin turgor.? + intertrigo to groin region Extremities: No lower extremity edema.? No calf ttp. 5/5 strength to bilateral upper and lower extremities Neuro: Oriented X 3.? No motor deficit.? No sensory deficit. CN 2-12 intact Assessment & Plan Assessment & Plan (1) Intertrigo: Code(s): L30.4 - Erythema intertrigo Plan Take your medications as prescribed. If you were prescribed antibiotics today, it is important that you take your medication to their entirety, do not skip any doses, do not finish them early. Follow-up with your primary care provider this week. Return to the emergency department with new or worsening symptoms. Such as fevers, chills, chest pain, shortness of breath, nausea, vomiting, dizziness, headache, vision changes, lethargy In case of emergency call 911 Coding Level of Care Code Est Pt Level 3 (06294) Diagnoses Intertrigo L30.4
[2023-07-25 10:25] VITALS: BP 108/66; PULSE 82; O2SAT 99
== END 2023-07-25 12:50 | disposition home or self-care (01) ==
PROVIDERS: PCP Internal Medicine; Visit Provider Physician Assistant
DX: L30.4 Erythema intertrigo (principal)
CPT/HCPCS: 99213

== ENCOUNTER 2023-07-29 21:06 | Emergency (ER) | payer MEDICARE, MEDICAID, SELFPAY ==
[2023-07-29 21:09] VITALS: BP 144/78; PULSE 85; RESP 18; TEMP 36.2; O2SAT 98; BMI 41.8
[2023-07-29 21:33] LABS: COVID-19 Test Negative (Negative); IDNOW Serial# 08D9AD1C
--- NOTE | 2023-07-29 21:41 | ED.PSYCH ---
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 [facility], initially patient called himself because he said his glucose was low. When EMS arrived, his glucose was within normal limits. Then he told EMS that he was having auditory hallucinations. Then he changed his story that he was having homicidal ideations towards his roommate. Related Data Home Medications Medication Instructions Recorded Confirmed fluticasone propionate 50 2 spray intranasal BID 11/19/22 07/12/23 mcg/actuation nasal spray,suspension atorvastatin 10 mg tablet 10 mg PO DAILY 06/10/23 07/12/23 dexlansoprazole 60 mg 60 mg PO DAILY 06/10/23 07/12/23 capsule,biphase delayed release divalproex 500 mg tablet,extended 1,000 mg PO BID 06/10/23 07/12/23 release 24 hr empagliflozin 10 mg tablet 10 mg PO DAILY 06/10/23 07/12/23 (Jardiance) fluticasone 250 mcg-salmeterol 50 1 ea inhalation BID 06/10/23 07/12/23 mcg/dose blistr powdr for inhalation (Advair Diskus) gabapentin 100 mg capsule 200 mg PO BID 06/10/23 07/12/23 hydralazine 50 mg tablet 50 mg PO TID 06/10/23 07/12/23 lisinopril 20 mg tablet 20 mg PO DAILY 06/10/23 07/12/23 metformin 500 mg tablet 500 mg PO BID 06/10/23 07/12/23 risperidone 3 mg tablet 3 mg PO BID 06/10/23 07/12/23 Previous Rx's Medication Instructions Recorded acetaminophen 325 mg tablet 650 mg (2 x 325 mg) PO Q4H PRN 06/11/22 fever or pain 90 days #180 tabs lactase 3,000 unit tablet (Lactaid) 3,000 unit PO .QD PRN lactose 10/14/22 intolerance #90 tabs propranolol 20 mg tablet 20 mg PO TID@0800,1600,2000 90 10/25/22 days #270 tabs blood sugar diagnostic (OneTouch #100 ea 06/17/23 Ultra Test strips) blood-glucose meter (OneTouch #1 ea 06/17/23 Ultra2 Meter) lancets 30 gauge (OneTouch #100 ea 06/17/23 UltraSoft 2 Lancet) furosemide 20 mg tablet (Lasix) 20 mg PO Q OTHER DAY #45 tabs 07/05/23 Allergies Allergy/AdvReac Type Severity Reaction Status Date / Time Sulfa (Sulfonamide Allergy Severe CHAVEZ Verified 07/25/23 10:25 Antibiotics) ALICIA REACTION, Chavez Alicia trimethoprim Allergy Mild UNKNOWN Verified 07/25/23 10:25 lactose AdvReac Mild STOMACH Verified 07/25/23 10:25 UPSET Review of Systems Review of Systems: Constitutional : No Weight loss, No Fever, No Chills, No Night Sweats, No Fatigue, No Malaise ENT/Mouth : No Hearing loss, No Ear Pain, No Nasal Congestion, No Sinus Pain, No Hoarseness, No sore throat, No Rhinorrhea, No Swallowing Difficulty Eyes: No Eye Pain, No Swelling, No Redness, No Foreign Body, No Discharge, No Vision Changes Cardiovascular : No Chest Pain, No SOB, No Dyspnea on Exertion, No Orthopnea, No Edema, No Palpitations Respiratory : No Cough, No Sputum, No Wheezing, No Smoke Exposure, No Dyspnea Gastrointestinal : No Nausea, No Vomiting, No Diarrhea, No Constipation, No abdominal Pain, No Hematochezia, No Melena Genitourinary : no irregular bleeding, No Dysuria, No Urinary Frequency, No Hematuria, No Urinary Incontinence, No Urgency, No Flank Pain, No Urinary Flow Changes, No Hesitancy Musculoskeletal : No joint pain, No Myalgias, No Joint Swelling Skin : No Skin Lesions, No rash Neuro : No Weakness, No Numbness, No Paresthesias, No Loss of Consciousness, No Dizziness, No Headache Psych : No Anxiety/Panic, No Depression, denies SI, states he is having auditory hallucinations, made vague HI comments towards his roommate at the penitentiary Heme/Lymph: No Bruising, No Bleeding,No Lymphadenopathy Endocrine : No Polyuria, No Polydipsia, No Temperature Intolerance PMFSH Past Medical History Medical History Feeling suicidal Tinea cruris Atrial flutter Atrial fib/flutter, transient A-fib Arrhythmia Abnormal EKG Contusion of left ankle Annual physical exam Abdominal pain Back pain Positive colorectal cancer screening using Cologuard test Precordial chest pain Hospital discharge follow-up Chest pain Right ankle pain Musculoskeletal chest pain Left-sided chest pain Back pain Fall Acute kidney injury Gait instability Suicidal ideation COVID-19 Hypomagnesemia Diarrhea Abdominal pain Ankle pain, left Left ankle sprain Seizure disorder Hypertension Anxiety Hyponatremia Cerebellar ataxia Anemia Lactose intolerance Vertigo Asthma Mental disability Type 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 Proteinuria Hyperlipidemia LDL goal <100 Essential hypertension Surgical History Hx of colonoscopy History of orchiectomy Family History Family History Father Myocardial infarction CVD (cardiovascular disease) Diabetes mellitus Mother Diabetes mellitus HTN (hypertension) Brother In good health Sister In good health Social History Social History Household Members: Other Household Members Other:: from penitentiary Housing: Other Housing Other:: penitentiary Do you presently have visiting nurse or other home services: Yes Alcohol intake: never Patient Tobacco Use Status: Never used Tobacco e-Cigarette/Vaping Use: Never Used Second Hand Smoke Exposure: No Advance Directives: No Advance Directives Information Provided: No Advance Directives Date on File: 05/23/21 service: No Current occupational status: disabled Cognitive needs: Yes (walker) Hearing needs: No Vision needs: Yes (glasses) Physical Exam Vital Signs: Vital Signs: Last Vital Signs Temp 97.2 F 07/29/23 21:09 Pulse 85 07/29/23 21:09 Resp 18 07/29/23 21:09 BP 144/78 H 07/29/23 21:09 Pulse Ox 98 07/29/23 21:09 O2 Del Method Room Air 07/29/23 21:09 BMI result Body Mass Index 41.8 Const: Other: Appearance: Alert. Oriented X3. No acute distress. Eyes: Pupils equal, round and reactive to light. ENT: Pharynx normal. Neck: Normal inspection. Neck supple. No lymph nodes noted. No crepitus CVS: Normal heart rate and rhythm. Pulses normal. Normal S1 and S2 Respiratory: No respiratory distress. Breath sounds normal. No Wheezing. No rales Abdomen: Soft and nontender. No rigidity. No distention. Skin: Skin warm and dry. Normal skin color. Normal skin turgor. Extremities: No lower extremity edema. No Lacerations. No Rash Neuro: Oriented X 3. No motor deficit. No sensory deficit. Moving all extremities. No slurred speech. CN 2 through 12 grossly intact Psych: calm, cooperative, normal affect Course Course Course Narrative: -all of patient's labs pending -care team consult pending -physician observation started at 21:45 Medical Decision Making Differential Diagnosis Differential Diagnoses: The differential diagnosis associated with the presentation includes (Anxiety, depression, SI) Admission/Observation Consideration of admission/observation: Escalation of care including admission/observation considered (Patient will be under observation until his labs resolve and care team evaluates the patient.) Lab Data Labs: Lab Results 07/29/23 Range/Units 21:14 COVID-19 (MICHAELA) Negative (Negative) COVID-19 Clin Com See Note Discharge Plan Discharge Clinical Impression: Anger reaction Patient Disposition: Still a Patient Prescriptions: No Action acetaminophen 325 mg tablet 650 mg PO Q4H PRN (Reason: fever or pain) 90 Days Qty: 180 2RF lactase [Lactaid] 3,000 unit tablet 3,000 unit PO .QD PRN (Reason: lactose intolerance) Qty: 90 3RF Rx Instructions: take at the start of drinking milk only propranolol 20 mg tablet 20 mg PO TID@0800,1600,2000 90 Days Qty: 270 3RF (DME) OneTouch Ultra Test Strip See Rx Instructions .Route Qty: 100 5RF Rx Instructions: test once daily (DME) blood-glucose meter [OneTouch Ultra2 Meter] Misc See Rx Instructions .Route Qty: 1 0RF Rx Instructions: test once daily (DME) lancets [OneTouch UltraSoft 2 Lancet] 30 gauge misc See Rx Instructions .Route Qty: 100 5RF Rx Instructions: test once daily furosemide [Lasix] 20 mg tablet 20 mg PO Q OTHER DAY Qty: 45 2RF fluticasone propionate 50 mcg/actuation spray,suspension 2 spray INTRANASAL BID metformin 500 mg tablet 500 mg PO BID atorvastatin 10 mg tablet 10 mg PO DAILY lisinopril 20 mg tablet 20 mg PO DAILY risperidone 3 mg tablet 3 mg PO BID divalproex 500 mg tablet extended release 24 hr 1,000 mg PO BID hydralazine 50 mg tablet 50 mg PO TID gabapentin 100 mg capsule 200 mg PO BID dexlansoprazole 60 mg capsule,biphase delayed releas 60 mg PO DAILY Jardiance 10 mg tablet 10 mg PO DAILY fluticasone propion-salmeterol [Advair Diskus] 250-50 mcg/dose blister with device 1 ea inhalation BID
[2023-07-29 21:51] VITALS: BP 135/82; PULSE 89; RESP 17; O2SAT 98
[2023-07-29 21:59] VITALS: BP 124/68; PULSE 93; RESP 14; TEMP 37.3; O2SAT 97
[2023-07-29 22:09] LABS: Eosinophils Absolute Auto 0.1 X10*3/uL (0.0-0.4); Eosinophils Percent Auto 1.1 % (0-4); Hematocrit 39.1 % (42.0-52.0); Imm Gran Abs Auto 0.03 X10*3/uL (0.00-0.03); Imm Gran Pct Auto 0.5 % (0.0-0.4); Monocytes Absolute Auto 0.5 X10*3/uL (0.1-1.2); PLT CLUMP 1; SCAN SMEAR FLAG 1
[2023-07-29 22:11] LABS: Basophils Percent Auto 0.7 % (0-2); Hemoglobin 13.1 g/dl (14.0-18.0); Lymphocytes Absolute Auto 1.4 X10*3/uL (1.2-4.9); Lymphocytes Percent Auto 24.1 % (20-40); Mean Corpuscular HGB Conc 33.5 g/dl (31.0-36.0); Mean Corpuscular Hemoglobin 30.1 pg (27.0-33.0); Mean Corpuscular Volume 89.9 fL (80.0-98.0); Mean Platelet Volume 9.8 fL (9.4-12.4); Monocytes Percent Auto 8.6 % (2-11); Neutrophils Absolute Auto 3.7 x10*3/uL (2.0-8.3); Red Blood Count 4.35 X10*6/uL (4.60-5.80); Red Cell Distribution Width 12.2 % (11.0-16.0)
[2023-07-29 22:18] LABS: MANUAL DIFF FLAG NO; Platelet Count 118 X10*3/uL (160-400); White Blood Count 5.7 X10*3/uL (4.8-10.8)
[2023-07-29 22:22] LABS: Alanine Aminotransferase 16 U/L (0-40); Albumin Level 3.2 g/dL (3.5-5.0); Alkaline Phosphatase 82 U/L (39-117); Anion Gap 15 (12-20); Aspartate Amino Transferase 18 U/L (5-37); Bilirubin Total 0.2 mg/dL (0.0-1.0); Blood Urea Nitrogen 30 mg/dL (9-16); Calcium 9.3 mg/dL (8.4-10.2); Carbon Dioxide 23 mmol/L (22-29); Chloride 103 mmol/L (96-108); Creatinine Clr Calc Pharmacy 63.6; Estimated Glomerular Filt Rate 46; Glucose Random 317 mg/dL (60-115); Sodium 136 mmol/L (135-145); Total Protein 7.3 g/dL (6.5-8.0)
[2023-07-29 22:23] LABS: Ethanol < 10 mg/dL
--- NOTE | 2023-07-29 22:27 | PHA.MEDREC ---
Pharmacy Consult ? Medication Reconciliation Pharmacy has completed the medication reconciliation. Patient came from assisted with medication list. Shannon Correia, ZoilaD
[2023-07-29 22:32] LABS: Appearance Urine Clear; Color Urine Yellow; Glucose Urine UA >=1000 mg/dL (Negative); Leukocyte Esterase Urine Negative (Negative); Nitrite Urine Negative (Negative); Specific Gravity - Urine 1.025 (1.005-1.025); UMIC TRIGGER UA YES; Urine Blood Negative (Negative); Urine Ketones Negative (Negative); Urine Protein Negative (Neg-Trace)
[2023-07-29 22:37] LABS: Bacteria Urine None Seen (None Seen); Hyaline Casts Urine 0-2 /LPF (0-2); RBC Urine 0-2 /HPF (0-2); Squamous Epithelial Cell Urine 0-2 /HPF (0-2); WBC Urine 0-5 /HPF (0-5)
[2023-07-29 22:38] LABS: Amphetamine Screen Urine Not Detected (Not Detect); Barbiturates, Urine Not Detected (Not Detect); Benzodiazepines Screen Urine Not Detected (Not Detect); Cannabinoid Screen Urine Not Detected (Not Detect); Cocaine Screen Urine Not Detected (Not Detect); Fentanyl, urine Not Detected (Not Detect); Opiate Screen Urine Not Detected (Not Detect); Phencyclidine Screen Urine Not Detected (Not Detect)
--- NOTE | 2023-07-30 | ECG_ITS ---
Test Reason : CHESTPAIN Blood Pressure : / mmHG Vent. Rate : 079 BPM Atrial Rate : 079 BPM P-R Int : 184 ms QRS Dur : 080 ms QT Int : 376 ms P-R-T Axes : 077 -06 054 degrees QTc Int : 431 ms Normal sinus rhythm Normal ECG When compared with ECG of 11-JUL-2023 20:49, No significant change was found Referred By: Generic ED Physician Electronically Signed By:LEVI WHITMORE
[2023-07-30 00:55] VITALS: BP 125/78; PULSE 87; RESP 12; O2SAT 100
[2023-07-30 02:12] LABS: Anion Gap 15 (12-20); Blood Urea Nitrogen 27 mg/dL (9-16); Calcium 9.3 mg/dL (8.4-10.2); Carbon Dioxide 20 mmol/L (22-29); Chloride 108 mmol/L (96-108); Creatinine Clr Calc Pharmacy 69.3; Estimated Glomerular Filt Rate 51; Glucose Random 238 mg/dL (60-115); Sodium 138 mmol/L (135-145)
--- NOTE | 2023-07-30 02:34 | PC.NURSE ---
Patient alert and oriented. Upon conducting ED rounds, pt reported chest pain in the middle of chest that is radiating to knee, dizziness and shaking. EKG completed NSR. VSS. pt afebrile- 98.9, bp 139/76, hr 78, 02 98% on RA. dialysis biomed technician provided PT with a sandwich as requested. Sitter at bedside. Plan of care on going
[2023-07-30] MEDS: Acetaminophen 325 MG TABLET 650 MG PO (02:59)
--- NOTE | 2023-07-30 03:03 | PC.NURSE ---
Pt aox3 resting at the bedside. No apparent distress noted. Pt reports chest pain and headache, 10/10. Medicated for pain. Pt tolerated well. Labs drawn and sent. Pending crisis eval. Pt aware of plan of care.
[2023-07-30 03:23] LABS: Troponin-I High Sensitivity < 2.7 ng/L (<3.5-35.0)
[2023-07-30] MEDS: Melatonin 3 MG TABLET 6 MG PO (04:06)
[2023-07-30 06:00] VITALS: RESP 12
--- NOTE | 2023-07-30 06:00 | PC.NURSE ---
Pt sleeing at the beside. No apparent distress noted. Breaths are even regular and unlabored with equal chest rises. 1:1 sitter at bedside. Will continue to monitor.
--- NOTE | 2023-07-30 07:31 | PC.NURSE ---
[facility] UPDATED. [phone]
--- NOTE | 2023-07-30 09:09 | MHC.CM.PN ---
Notification sent to registration to make Shelia- Guardian- PRIMARY contact.
== END 2023-07-30 10:25 | disposition home or self-care (01) ==
PROVIDERS: Student in an Organized Health Care Education/Training Program; Emergency Provider Emergency Medicine; PCP Internal Medicine
DX: R45.4 Irritability and anger (principal); R45.851 Suicidal ideations; R45.850 Homicidal ideations; Z20.822 Contact with and (suspected) exposure to COVID-19; F20.9 Schizophrenia, unspecified; E11.9 Type 2 diabetes mellitus without complications; I10 Essential (primary) hypertension; E78.5 Hyperlipidemia, unspecified; I48.91 Unspecified atrial fibrillation; Z79.899 Other long term (current) drug therapy; Z79.84 Long term (current) use of oral hypoglycemic drugs
CPT/HCPCS: 36415; 80048; 80053; 80307; 81001; 84484; 85025; 87635; 93005; 99285; S9485

== ENCOUNTER 2023-08-01 10:26 | Outpatient (REF) | payer MEDICARE, MEDICAID, SELFPAY ==
[2023-08-01 14:20] LABS: Alanine Aminotransferase 14 U/L (0-40); Alkaline Phosphatase 82 U/L (39-117); Anion Gap 17 (12-20); Aspartate Amino Transferase 17 U/L (5-37); Bilirubin Total 0.3 mg/dL (0.0-1.0); Blood Urea Nitrogen 22 mg/dL (9-16); Calcium 9.5 mg/dL (8.4-10.2); Carbon Dioxide 21 mmol/L (22-29); Chloride 106 mmol/L (96-108); Estimated Glomerular Filt Rate > 60; Glucose Random 180 mg/dL (60-115); Potassium 4.9 mmol/L (3.3-5.1); Sodium 139 mmol/L (135-145); Total Protein 7.3 g/dL (6.5-8.0)
== END 2023-08-01 10:27 | disposition home or self-care (01) ==
LOC: HO.HMGCLDS 10:26
PROVIDERS: PCP Internal Medicine; Visit Provider Internal Medicine
DX: K21.9 Gastro-esophageal reflux disease without esophagitis (principal)
CPT/HCPCS: 36415; 80053

== ENCOUNTER 2023-08-01 15:18 | Outpatient (AMB) | payer MEDICARE, MEDICAID, SELFPAY ==
[2023-08-01 15:20] VITALS: BP 150/82; PULSE 71; O2SAT 98; BMI 42.6
--- NOTE | 2023-08-01 15:20 | A.OFFPC_ITS ---
Vital Signs 08/01/23 15:20 Height 5 ft 5 in Weight 256 lb BMI 42.6 BP 150/82 H Blood Pressure Location Lt brachial Position Sitting Pulse 71 Pulse Source Pulse Oximeter Pulse Oximetry (%) 98 Oxygen Delivery Method Room Air Intake Visit Reasons: [facility] [place] 07/29 high bp Pantograph Setter: Present Allergies Sulfa (Sulfonamide Antibiotics) Allergy (Severe, Verified 08/01/23 15:20) LANDEROS ALICIA REACTION, Landeros Alicia trimethoprim Allergy (Mild, Verified 08/01/23 15:20) UNKNOWN lactose Adverse Reaction (Mild, Verified 08/01/23 15:20) STOMACH UPSET Tobacco use date assessed: 12/16/22 Dental Screening Dental Screen Date: 08/01/23 Did you have a dental visit in the last 12 months?: Yes Did you have a dental problem in the last 6 months where you did not have access to dental care?: No Was dental information given to patient?: Patient has dentist HPI [facility] [place] 07/29 high bp HPI Details 52 year old morbidly obese male with men [place] and behavioral problem, cerebellar ataxia essential hypertension hypercholesterolemia diabetes mellitus asthma GERD last seen in May 2023. Patient is here for follow-up. Patient was recently in the emergency room July 2023 patient called himself said his glucose was low. EMS checked sugars normal, EMS was told also that he was having auditory hallucinations then he changed his story to homicidal ideations diagnosis angry action workup has been negative. Another ER visit July 12 auditory hallucinations again with suicidal ideations. July 11 chest pain had a physical artery occasion with roommate diagnosis chest wall pain patient has been worked up by Cardiology already [facility] Medical History Feeling suicidal Tinea cruris Atrial flutter Atrial fib/flutter, transient A-fib Arrhythmia Abnormal EKG Contusion of left ankle Annual physical exam Abdominal pain Back pain Positive colorectal cancer screening using Cologuard test Precordial chest pain Hospital discharge follow-up Chest pain Right ankle pain Musculoskeletal chest pain Left-sided chest pain Back pain Fall Acute kidney injury Gait instability Suicidal ideation COVID-19 Hypomagnesemia Diarrhea Abdominal pain Ankle pain, left Left ankle sprain Seizure disorder Hypertension Anxiety Hyponatremia Cerebellar ataxia Anemia Lactose intolerance Vertigo Asthma Mental disability Type 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 Proteinuria Hyperlipidemia LDL goal <100 Essential hypertension Surgical History Hx of colonoscopy History of orchiectomy Family History Father Myocardial infarction CVD (cardiovascular disease) Diabetes mellitus Mother Diabetes mellitus HTN (hypertension) Brother In good health Sister In good health Social History Household Members: Other Household Members Other:: from skilled nursing Housing: Other Housing Other:: skilled nursing Do you presently have visiting nurse or other home services: Yes Alcohol intake: current Alcohol intake frequency: a few times a week Alcohol type: hard liquor Patient Tobacco Use Status: Never used Tobacco e-Cigarette/Vaping Use: Never Used Second Hand Smoke Exposure: No Advance Directives Date on File: 05/23/21 service: No Current occupational status: disabled Cognitive needs: Yes (walker) Hearing needs: No Vision needs: Yes (glasses) Questionnaire PHQ-9 Over the last 2 weeks, how often have you been bothered by any of the following problems? 1. Little interest or pleasure in doing things: not at all 2. Feeling down, depressed, or hopeless: not at all 3. Trouble falling or staying asleep, or sleeping too much: not at all 4. Feeling tired or having little energy: not at all 5. Poor appetite or overeating: not at all 6. Feeling bad about yourself - or that you are a failure or have let yourself or your family down: not at all 7. Trouble concentrating on things, such as reading the newspaper or watching television: not at all 8. Moving or speaking so slowly that other people could have noticed. Or the opposite - being so fidgety or restless that you have been moving around a lot more than usual: not at all 9. Thoughts that you would be better off or of hurting yourself in some way: several days Total score: 1 Depression Screening Interpretation: Positive Depression Screening Follow-up: Other (sent to ED ) Source: Developed by Drs. Wellington López, Monica Jackson, Ray Nguyen and colleagues, with an educational perez from [employer]. Thrive Questionnaire Date Thrive assessed: 12/16/22 AUDIT C Alcohol Use Questionnaire (AUDIT-C) 1. How often do you have a drink containing alcohol?: Never 2. How many drinks containing alcohol do you have on a typical day when you are drinking?: 1 or 2 (0) 3. How often do you have six or more drinks on one occasion?: Never Total Score: 0 Score Reviewed/Action Taken: Yes CHANI-7 AMB Questionnaire CHANI-7 Date CHANI - 7 assessed: 12/16/22 Source: Developed by Drs. Wellington López, Monica Jackson, Ray Nguyen and colleagues, with an educational perez from [employer]. Physical exam (Primary Care) Vital Signs: Last Vital Signs Pulse 71 08/01/23 15:20 BP 150/82 H 08/01/23 15:20 Pulse Ox 98 08/01/23 15:20 Oxygen Delivery Method Room Air 08/01/23 15:20 BMI result Body Mass Index 42.6 Tobacco/Smoking Status: Tobacco use Status Tobacco use date assessed 12/16/22 08/01/23 15:27 Patient Tobacco Use Status Never used Tobacco 08/01/23 15:27 e-Cigarette/Vaping Use Never Used 08/01/23 15:27 PHQ-9: PHQ-9 Score PHQ-9: Total score 1 08/01/23 15:30 Depression Screening Interpretation: Positive Depression Screening Follow-up: Other (sent to ED ) Thrive Assessment: Date of Thrive Assessment Date Thrive assessed 12/16/22 08/01/23 15:27 Const General: alert; No acute distress Eyes Conjunctivae: conjunctivae normal Resp Auscultation: clear to auscultation bilaterally Cardio Rate: regular rate Rhythm: regular rhythm GI Inspection: Yes normal to inspection Extrem General: Yes normal to inspection and No edema Assessment and Plan Assessment & Plan (1) Type 2 diabetes mellitus with hyperglycemia: Code(s): E11.65 - Type 2 diabetes mellitus with hyperglycemia Plan: Decrease the amount of carbohydrate intake, pasta, bread, rice and potatoes are all sugar and that is aside from all the sweet stuff, remember that fruits are good but they are Sweet also. Hemoglobin A1c goal of less than 6.5. Patient lives a sedentary lifestyle presently on Jardiance 10 mg once a day metformin 500 mg twice a day (2) Schizophrenia: Code(s): F20.9 - Schizophrenia, unspecified Plan: Continue to follow-up with psychiatry and counseling (3) GERD (gastroesophageal reflux disease): Code(s): K21.9 - Gastro-esophageal reflux disease without esophagitis Plan: Avoid the foods that causes that usually spicy foods, tomato products, juices, coffee, soda and foods that your sensitive to. After eating do not lie down, allow 3-4 hours before in lie down. And keep the head of bed above 30 degrees to avoid the acid from going up. (4) Renal insufficiency: Code(s): N28.9 - Disorder of kidney and ureter, unspecified Plan: Avoid NSAIDs keep well hydrated will continue to monitor renal function (5) Cerebellar ataxia: Code(s): G11.9 - Hereditary ataxia, unspecified Plan: Conservative management on walker (6) Asthma: Code(s): J45.909 - Unspecified asthma, uncomplicated Qualifiers: Asthma severity: moderate Asthma persistence: persistent Asthma complication type: uncomplicated Qualified Code(s): J45.40 - Moderate persistent asthma, uncomplicated Plan: Continue with inhaler as needed (7) Hyperlipidemia LDL goal <100: Code(s): E78.5 - Hyperlipidemia, unspecified Plan: Avoid fried foods, chicken skin, eggs, butter margarine, pastries and meat. Be it pork or beef they have a lot of cholesterol LDL goal of less than 100 and triglyceride of less than 150 November 2021 last blood work (8) Essential hypertension: Code(s): I10 - Essential (primary) hypertension Plan: Continue with blood pressure medication. Decrease salt intake and exercise patient is on propranolol 20 mg 3 times a day lisinopril 20 mg once a day hydralazine 50 mg 3 times a day furosemide 20 mg every other day Orders: Orders Prostate Specific Antigen Scr Today E78.5 - Hyperlipidemia, unspecified Medications: New lisinopril 20 mg PO DAILY 30 tabs 3RF I10 - Essential (primary) hypertension Refilled bismuth subsalicylate (Pepto-Bismol) 524 mg (30 mL) PO QID 7 days PRN 1,200 mL 0RF diarrhea alum-mag hydroxide-simeth 400-400-40 mg/5 mL (Mylanta Maximum Strength) 5 mL PO QID PRN 100 mL 11RF indigestion K21.9 - Gastro-esophageal reflux disease without esophagitis Discontinued furosemide (Lasix) Discontinued Reason: Doctor's Order 20 mg PO Q OTHER DAY 45 tabs 2RF R07.9 - Chest pain, unspecified Coding Level of Care Code Est Pt Level 4 (68572) Diagnoses Type 2 diabetes mellitus with hyperglycemia E11.65 Schizophrenia F20.9 Gastroesophageal reflux disease without esophagitis K21.9 Renal insufficiency N28.9 Cerebellar ataxia G11.9 Moderate persistent asthma without complication J45.40 Asthma severity: moderate Asthma persistence: persistent Asthma complication type: uncomplicated Hyperlipidemia LDL goal <100 E78.5 Essential hypertension I10 Additional Codes PHQ-9 - 15913 - PHQ-9 Billing: ([id number])
== END 2023-08-01 16:04 | disposition home or self-care (01) ==
PROVIDERS: PCP Internal Medicine; Visit Provider Internal Medicine
DX: E11.65 Type 2 diabetes mellitus with hyperglycemia (principal); F20.9 Schizophrenia, unspecified; K21.9 Gastro-esophageal reflux disease without esophagitis; I10 Essential (primary) hypertension; G11.9 Hereditary ataxia, unspecified; J45.40 Moderate persistent asthma, uncomplicated; N28.9 Disorder of kidney and ureter, unspecified; E78.5 Hyperlipidemia, unspecified
CPT/HCPCS: 99214

== ENCOUNTER 2023-08-09 12:01 | Emergency (ER) | payer MEDICARE, MEDICAID, SELFPAY ==
--- NOTE | ~2023-08-09 | CT_ITS ---
EXAMINATION: CT HEAD WITHOUT CONTRAST CLINICAL INFORMATION: Fall. Head trauma. COMPARISON: Previous head CT most recent April 2021 TECHNIQUE: Contiguous axial imaging was performed from the skull base to vertex without intravenous administration of contrast. This CT examination was performed using dose optimization techniques as appropriate, variously including the following: *Automated exposure control *Adjustment of mA and/or kV according to patient size (this includes techniques or standardized protocols for targeted exams where dose is matched to indication/reason for exam; i.e. extremities or head) *Use of iterative reconstruction technique DLP: 788 mGy-cm FINDINGS: There is no evidence of an extra-axial collection. There is no evidence of intra-axial or extra-axial hemorrhage. The ventricles and extra-axial CSF spaces are appropriate. Shell-white matter differentiation is normal. No mass, mass effect or infarct. No skull fracture. Visualized paranasal sinuses, mastoid air cells and middle ears are clear. CT/CT head/brain wo IV con IMPRESSION: Unremarkable exam.
--- NOTE | ~2023-08-09 | CT_ITS ---
EXAMINATION: CT CERVICAL SPINE WITHOUT CONTRAST CLINICAL INFORMATION: Trauma COMPARISON: Previous CT of the cervical spine July 2021 TECHNIQUE: Axial images through the cervical spine without contrast. Sagittal and coronal reconstructions on the technologist workstation were performed. This CT examination was performed using dose optimization techniques as appropriate, variously including the following: *Automated exposure control *Adjustment of mA and/or kV according to patient size (this includes techniques or standardized protocols for targeted exams where dose is matched to indication/reason for exam; i.e. extremities or head) *Use of iterative reconstruction technique DLP: 691 mGy-cm FINDINGS: There is head tilt to the left. Bone alignment is otherwise normal. No fracture or dislocation. There is degenerative spondylosis from C3-C4 and C6-C7. There is mild disc space narrowing from C4-C5 to C6-C7. There are degenerative changes at the C1 dens articulation. Prevertebral soft tissues are normal. There is bilateral carotid calcification. Visualized lung apices are clear. CT/CT cervical spine wo IV con IMPRESSION: Degenerative changes. No fracture or dislocation. Fleischner guidelines were followed.
--- NOTE | ~2023-08-09 | XR_ITS ---
Examination: Bilateral ankle comparison CLINICAL INDICATION: Fall. Pain. COMPARISON: Left ankle 06/03/2022 TECHNIQUE:: 3 views each ankle. FINDINGS: Right ankle: There is increased distance between the lateral talar dome and lateral articulating tibia likely ligamentous contusion or strain. No visible acute fracture or dislocation seen. There is a small calcaneal and retrocalcaneal enthesophytes. There is bimalleolar soft tissue swelling. Left ankle: There is increased distance between the lateral tibial dome and lateral articulating tibia likely ligament contusion or sprain. No acute fracture or dislocation seen. Incidental finding of increased sclerosis along the lateral tibial distal cortex likely periosteal/cortical thickening, healing stress fracture. There is a small calcaneal heel and retrocalcaneal enthesophyte. There is bimalleolar soft tissue swelling. XR/XR ankle RT min 3V IMPRESSION: Increased distance between the lateral tibial dome and the articulating lateral tibia in both angles likely lateral tibia and fibular ligament strain or contusion. There is no visible acute fracture or dislocation seen. Increased sclerosis along the lateral tibial cortex left ankle likely healing old stress fracture or injury.
--- NOTE | ~2023-08-09 | XR_ITS ---
Examination: Bilateral ankle comparison CLINICAL INDICATION: Fall. Pain. COMPARISON: Left ankle 06/03/2022 TECHNIQUE:: 3 views each ankle. FINDINGS: Right ankle: There is increased distance between the lateral talar dome and lateral articulating tibia likely ligamentous contusion or strain. No visible acute fracture or dislocation seen. There is a small calcaneal and retrocalcaneal enthesophytes. There is bimalleolar soft tissue swelling. Left ankle: There is increased distance between the lateral tibial dome and lateral articulating tibia likely ligament contusion or sprain. No acute fracture or dislocation seen. Incidental finding of increased sclerosis along the lateral tibial distal cortex likely periosteal/cortical thickening, healing stress fracture. There is a small calcaneal heel and retrocalcaneal enthesophyte. There is bimalleolar soft tissue swelling. XR/XR ankle LT min 3V IMPRESSION: Increased distance between the lateral tibial dome and the articulating lateral tibia in both angles likely lateral tibia and fibular ligament strain or contusion. There is no visible acute fracture or dislocation seen. Increased sclerosis along the lateral tibial cortex left ankle likely healing old stress fracture or injury.
--- NOTE | 2023-08-09 12:08 | ED.GENADULT ---
HPI - General Adult General Chief complaint: Fall Stated complaint: FELL OFF BED HEAD PAIN Time Seen by Provider: 08/09/23 12:07 Source: patient and EMS Mode of arrival: EMS Limitations: no limitations History of Present Illness HPI narrative: Patient is a 52 year old assigned male at with a history of DM, asthma, and chronically feeling suicidal presenting to the emergency department today with bilateral ankle pain, head pain, and neck pain after a trip and fall. Patient states that he tripped and fell transitioned from his bed at the snf and hit his head. Patient states that his ankles now hurt as well. Patient denies any dizziness, lightheadedness, abdominal pain, nausea, vomiting, fever, chills, blurry vision, double vision, loss of vision, chest pain, difficulty breathing, shortness of breath, back pain, night sweats, pain with urination, increased urinary frequency, increased urinary urgency, blood in his urine or stool, syncope or a near syncopal episode, bowel incontinence, bladder incontinence, bowel retention, bladder retention, or any other complaints at this time. Onset (ago): minute(s) Location: head, left, right and lower extremity Severity: mild Severity scale (1-10): 4 Quality: aching and dull Pain Consistency: constant Relieving factors: none Exacerbating factors: none Associated symptoms: denies other symptoms Treatments prior to arrival: none Related Data Home Medications Medication Instructions Recorded Confirmed fluticasone propionate 50 2 spray intranasal BID 11/19/22 07/29/23 mcg/actuation nasal spray,suspension atorvastatin 10 mg tablet 10 mg PO BEDTIME 06/10/23 07/29/23 dexlansoprazole 60 mg 60 mg PO BEDTIME 06/10/23 07/29/23 capsule,biphase delayed release divalproex 500 mg tablet,extended 1,000 mg PO BID 06/10/23 07/29/23 release 24 hr empagliflozin 10 mg tablet 10 mg PO DAILY 06/10/23 07/29/23 (Jardiance) fluticasone 250 mcg-salmeterol 50 1 ea inhalation BID 06/10/23 07/29/23 mcg/dose blistr powdr for inhalation (Advair Diskus) gabapentin 100 mg capsule 200 mg PO BID 06/10/23 07/29/23 hydralazine 50 mg tablet 50 mg PO TID 06/10/23 07/29/23 metformin 500 mg tablet 500 mg PO BID 06/10/23 07/29/23 risperidone 3 mg tablet 3 mg PO BID 06/10/23 07/29/23 albuterol sulfate 90 mcg/actuation 2 puff inhalation Q6H PRN Wheezing 07/29/23 07/29/23 aerosol inhaler cholecalciferol (vitamin D3) 25 25 mcg PO DAILY 07/29/23 07/29/23 mcg (1,000 unit) tablet cyanocobalamin (vitamin B-12) 1,000 mcg PO BEDTIME 07/29/23 07/29/23 1,000 mcg tablet dextran 70-hypromellose 0.1 %-0.3 1 drp ophthalmic (eye) Q4H PRN Dry 07/29/23 07/29/23 % eye drops (GenTeal Tears Mild) Eye(S) ferrous sulfate 325 mg (65 mg 325 mg PO BID 07/29/23 07/29/23 iron) tablet guaifenesin 100 mg/5 mL oral 200 mg PO Q4H PRN Cough 07/29/23 07/29/23 liquid (Siltussin SA) methylcellulose (laxative) 500 mg 500 mg PO DAILY 07/29/23 07/29/23 tablet (Citrucel) ondansetron 4 mg disintegrating 4 mg PO Q6H PRN Nausea And Vomiting 07/29/23 07/29/23 tablet sennosides 8.6 mg tablet (Senna 8.6 mg PO BEDTIME 07/29/23 07/29/23 Lax) urea 15 gram oral powder packet 1 packet PO DAILY 07/29/23 07/29/23 (Ure-Na) Previous Rx's Medication Instructions Recorded acetaminophen 325 mg tablet 650 mg (2 x 325 mg) PO Q4H PRN 06/11/22 fever or pain 90 days #180 tabs lactase 3,000 unit tablet (Lactaid) 3,000 unit PO .QD PRN lactose 10/14/22 intolerance #90 tabs propranolol 20 mg tablet 20 mg PO TID@0800,1600,2000 90 10/25/22 days #270 tabs blood sugar diagnostic (OneTouch #100 ea 06/17/23 Ultra Test strips) blood-glucose meter (OneTouch #1 ea 08/08/23 Ultra2 Meter) lancets 30 gauge (OneTouch #100 ea 06/17/23 UltraSoft 2 Lancet) aluminum-mag hydroxide-simethicone 5 ml PO QID PRN indigestion #100 mL 08/01/23 400 mg-400 mg-40 mg/5 mL oral susp (Mylanta Maximum Strength) bismuth subsalicylate 262 mg/15 mL 524 mg (30 mL) PO QID PRN diarrhea 08/01/23 oral suspension (Pepto-Bismol) 7 days #1,200 mL lisinopril 20 mg tablet 20 mg PO DAILY #30 tabs 08/01/23 nystatin 100,000 unit/gram topical 1 appl topical TID PRN Rash #60 08/04/23 powder grams Allergies Allergy/AdvReac Type Severity Reaction Status Date / Time Sulfa (Sulfonamide Allergy Severe LANDEROS Verified 08/01/23 15:20 Antibiotics) ALICIA REACTION, Landeros Alicia trimethoprim Allergy Mild UNKNOWN Verified 08/01/23 15:20 lactose AdvReac Mild STOMACH Verified 08/01/23 15:20 UPSET Review of Systems Constitutional: Constitutional: Reports no additional constitutional complaints, Denies chills, Denies fever(s) and Denies night sweats Eyes: Eyes: Reports no additional eye complaints, Denies blurry vision, Denies change in vision, Denies diplopia, Denies eye discharge, Denies loss of vision and Denies eye pain ENT: Denies dizziness Comments: headache, neck pain Cardiovascular: Cardiovascular: Reports no additional cardiovascular complaints, Denies chest pain, Denies lightheadedness, Denies Loss of Consciousness and Denies dyspnea Respiratory: Respiratory: Reports no additional respiratory complaints and Denies dyspnea Gastrointestinal: Gastrointestinal: Reports no additional gastrointestinal complaints, Denies abdominal pain, Denies melena, Denies hematochezia, Denies change in bowel habits and Denies change in stool character Genitourinary: Genitourinary: Reports no additional male genitourinary complaints, Denies hematuria, Denies oliguria, Denies difficulty urinating, Denies dysuria, Denies urinary frequency, Denies urinary hesitancy, Denies urinary incontinence and Denies urinary urgency Musculoskeletal: Musculoskeletal: Reports no additional musculoskeletal complaints, Denies numbness and Denies tingling Comments: bilateral ankle pain Neurologic: Denies dizziness, Denies loss of vision, Denies numbness and Denies tingling Psychiatric: Psychiatric: Reports no additional psychiatric complaints Endocrine: Endocrine: Reports no additional endocrine complaints Hematologic/Lymphatic: Hematologic/Lymphatic: Reports no additional hematologic/lymphatic complaints Allergic/Immunologic: Allergic/Immunologic: Reports no additional allergic/immunologic complaints [facility] Past Medical History Attestation statement: The following information was validated with the patient. (all information validated with snf staff) Source: old records reviewed, nursing notes reviewed and other (snf staff) Medical History Feeling suicidal Tinea cruris Atrial flutter Atrial fib/flutter, transient A-fib Arrhythmia Abnormal EKG Contusion of left ankle Annual physical exam Abdominal pain Back pain Positive colorectal cancer screening using Cologuard test Precordial chest pain Hospital discharge follow-up Chest pain Right ankle pain Musculoskeletal chest pain Left-sided chest pain Back pain Fall Acute kidney injury Gait instability Suicidal ideation COVID-19 Hypomagnesemia Diarrhea Abdominal pain Ankle pain, left Left ankle sprain Seizure disorder Hypertension Anxiety Hyponatremia Cerebellar ataxia Anemia Lactose intolerance Vertigo Asthma Mental disability Type 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 Proteinuria Hyperlipidemia LDL goal <100 Essential hypertension Surgical History Hx of colonoscopy History of orchiectomy Family History Family History Father Myocardial infarction CVD (cardiovascular disease) Diabetes mellitus Mother Diabetes mellitus HTN (hypertension) Brother In good health Sister In good health Social History Social History Household Members: Other Household Members Other:: from snf Housing: Other Housing Other:: snf Do you presently have visiting nurse or other home services: Yes Alcohol intake: current Alcohol intake frequency: a few times a week Alcohol type: hard liquor Patient Tobacco Use Status: Never used Tobacco e-Cigarette/Vaping Use: Never Used Second Hand Smoke Exposure: No Advance Directives: No Advance Directives Date on File: 05/23/21 Healthcare Proxy: No Guardian: No service: No Current occupational status: disabled Cognitive needs: Yes (walker) Hearing needs: No Vision needs: Yes (glasses) Physical Exam ED Vital Signs: Vital Signs - 24 hr 08/09/23 12:12 08/09/23 14:09 Temperature 97.7 F Pulse Rate 70 68 Respiratory Rate 16 12 Blood Pressure 146/79 H 121/59 L Pulse Oximetry 99 100 Oxygen Delivery Method Room Air Room Air BMI result Body Mass Index 38.7 Const General: cooperative, no acute distress, alert and awake Nutritional Appearance: well nourished Orientation/consciousness: patient oriented x3 Limitations: no limitations HENMT Head: Yes normal to inspection and Yes atraumatic Ears: hearing grossly normal bilaterally and external ears normal General nose exam: Normal external nose present, no nasal discharge noted and no epistaxis Face and sinus: Yes normal facial exam, No abrasion and No laceration Mouth: Normal oral and palatal mucosa present, no drooling and no muffled voice Eyes General: appearance normal, both eyes and all related structures Periorbital: periorbital findings normal Eyelids: Yes eyelids normal Conjunctivae: conjunctivae normal Pupils: Equal, round and reactive pupils present EOM: EOMs intact bilaterally Neck Neck: Yes normal visual inspection, Yes full ROM and Yes no lymphadenopathy Chest Chest palpation & inspection: normal inspection of the chest Resp Effort & Inspection: normal respiratory effort and able to speak in complete sentences GI Inspection: Yes normal to inspection Neuro General: patient oriented x3 and moves all extremities Cranial nerves: Yes Equal, round and reactive pupils present Cognition (Neuro): normal cognition Extrem General: Yes normal to inspection, Yes full ROM and Yes capillary refill normal Psych Appearance: grossly normal Mental Status: mental status grossly normal Affect: normal affect Attitude: cooperative Thought process: Normal thought process present Thought content: Normal thought content present Insight: Good insight present (Psych) Procedures Orthopedic Splinting/Casting Injury #1: Side: left Lower Extremity Injury Location: lower leg Lower Extremity Immobilizer: boot orthosis Medical Decision Making Medical Decision Making MDM Narrative: Patient is a 52 year old assigned male at with a history of asthma, DM, and chronically suicidal presenting to the emergency department today with head pain, neck pain, and bilateral ankle pain. Patient's physical exam was unremarkable. Patient's blood work was unremarkable. Patient's urine showed no acute process. Patient's EKG was unremarkable. Patient's head and c-spine CTs showed no acute process. Patient's left ankle x-ray showed evidence of a healing lateral tibia stress fracture. I spoke to the orthopedic team who recommended the patient be placed in a walking boot and follow up outpatient. Patient seen by CARE team for chronic suicidal ideation. CARE team cleared the patient from a psychiatric standpoint. I explained my physical exam findings as well as all test results to the patient and the patient's snf staff. I answered all questions asked by the patient and the patient's snf staff. Patient's left ankle was placed in a boot, without incident. Patient's PMS was intact prior to and after boot placement. I stressed the importance of the patient taking his medication as prescribed. I stressed the importance of the patient following up with his primary care provider and an orthopedic provider. I stressed the importance of the patient returning to the emergency department immediately if his symptoms were to worsen or if he were to develop any dizziness, shortness of breath, difficulty breathing, chest pain, blurry vision, loss of vision, nausea, vomiting, abdominal pain, fever, chills, back pain, or any other complaints. Patient and the patient's snf staff verbalized agreement and understanding with this treatment plan and discharge. Differential Diagnosis Differential Diagnoses: The differential diagnosis associated with the presentation includes Fall Ankle pain Chronically suicidal Consult Healthcare Provider Management of the patient was discussed with: [employer] (spoke with the orthopedic and CARE teams as noted in the rationale portion of this chart) Lab Data MDM Lab Attestation statement: I reviewed the patient's lab results. My interpretation of these studies and their corresponding values is that they are grossly normal. 08/09/23 14:24 08/09/23 14:24 Labs: Lab Results 08/09/23 Range/Units 14:24 WBC 5.3 (4.8-10.8) X10*3/uL RBC 4.05 L (4.60-5.80) X10*6/uL Hgb 12.2 L (14.0-18.0) g/dl Hct 36.8 L (42.0-52.0) % MCV 90.9 (80.0-98.0) fL MCH 30.1 (27.0-33.0) pg MCHC 33.2 (31.0-36.0) g/dl RDW 12.5 (11.0-16.0) % Plt Count 111 L (160-400) X10*3/uL MPV 10.0 (9.4-12.4) fL Immature Gran % (Auto) 1.3 H (0.0-0.4) % Neut % (Auto) 60.3 (45-73) % Lymph % (Auto) 26.1 (20-40) % Quay % (Auto) 11.1 H (2-11) % Eos % (Auto) 0.8 (0-4) % Baso % (Auto) 0.4 (0-2) % Lymph # (Auto) 1.4 (1.2-4.9) X10*3/uL [place]ay # (Auto) 0.6 (0.1-1.2) X10*3/uL Eos # (Auto) 0.0 (0.0-0.4) X10*3/uL Baso # (Auto) 0.0 (0.0-0.2) X10*3/uL Abs Immat Gran (auto) 0.07 H (0.00-0.03) X10*3/uL Absolute Neuts (auto) 3.2 (2.0-8.3) x10*3/uL Absolute Nucleated RBC 0.000 (0.0-0.012) X10*3/uL Nucleated RBC % (auto) 0.0 (0.0-0.2) /100WBC Sodium Cancelled Potassium Cancelled Chloride Cancelled Carbon Dioxide Cancelled Anion Gap Cancelled BUN Cancelled Creatinine Cancelled Estim Creat Clear Calc Cancelled Estimated GFR Cancelled Random Glucose Cancelled Calcium Cancelled Magnesium Cancelled Total Bilirubin Cancelled AST Cancelled ALT Cancelled Alkaline Phosphatase Cancelled Total Protein Cancelled Albumin Cancelled Urine Color Yellow Urine Appearance Clear Urine pH 6.0 (5.0-9.0) Ur Specific [place] >= 1.030 H (1.005-1.025) Urine Protein Negative (Neg-Trace) mg/dL Urine Glucose (UA) >=1000 H (Negative) mg/dL Urine Ketones Negative (Negative) mg/dL Urine Blood Negative (Negative) Urine Nitrite Negative (Negative) Ur Leukocyte Esterase Negative (Negative) Urine RBC 0-2 (0-2) /HPF Urine WBC 0-5 (0-5) /HPF Ur Squamous Epith Cells 0-2 (0-2) /HPF Urine Bacteria None Seen (None Seen) Hyaline Casts 0-2 (0-2) /LPF Urine Opiates Screen Not Detected (Not Detect) Urine Fentanyl Screen Not Detected (Not Detect) Ur Barbiturates Screen Not Detected (Not Detect) Ur Phencyclidine Scrn Not Detected (Not Detect) Ur Amphetamines Screen Not Detected (Not Detect) U Benzodiazepines Scrn Not Detected (Not Detect) Urine Cocaine Screen Not Detected (Not Detect) U Marijuana (THC) Screen Not Detected (Not Detect) COVID-19 (MICHAELA) Negative (Negative) COVID-19 Clin Com See Note Independent Interpretation I performed an independent interpretation of an: EKG, Plain X-Ray and CT Scan Interpretation: My interpretation is in agreement with the radiologist's impression of these imaging studies. EXAMINATION: CT CERVICAL SPINE WITHOUT CONTRAST CLINICAL INFORMATION: Trauma COMPARISON: Previous CT of the cervical spine July 2021 TECHNIQUE: Axial images through the cervical spine without contrast. Sagittal and coronal reconstructions on the technologist workstation were performed. This CT examination was performed using dose optimization techniques as appropriate, variously including the following: *Automated exposure control *Adjustment of mA and/or kV according to patient size (this includes techniques or standardized protocols for targeted exams where dose is matched to indication/reason for exam; i.e. extremities or head) *Use of iterative reconstruction technique DLP: 691 mGy-cm FINDINGS: There is head tilt to the left. Bone alignment is otherwise normal. No fracture or dislocation. There is degenerative spondylosis from C3-C4 and C6-C7. There is mild disc space narrowing from C4-C5 to C6-C7. There are degenerative changes at the C1 dens articulation. Prevertebral soft tissues are normal. There is bilateral carotid calcification. Visualized lung apices are clear. CT/CT cervical spine wo IV con IMPRESSION: Degenerative changes. No fracture or dislocation. Fleischner guidelines were followed. Dictated By: Nicole Shen MD Signed By: Electronically signed by Nicole Shen MD 08/09/23 1348 EXAMINATION: CT HEAD WITHOUT CONTRAST CLINICAL INFORMATION: Fall. Head trauma. COMPARISON: Previous head CT most recent April 2021 TECHNIQUE: Contiguous axial imaging was performed from the skull base to vertex without intravenous administration of contrast. This CT examination was performed using dose optimization techniques as appropriate, variously including the following: *Automated exposure control *Adjustment of mA and/or kV according to patient size (this includes techniques or standardized protocols for targeted exams where dose is matched to indication/reason for exam; i.e. extremities or head) *Use of iterative reconstruction technique DLP: 788 mGy-cm FINDINGS: There is no evidence of an extra-axial collection. There is no evidence of intra-axial or extra-axial hemorrhage. The ventricles and extra-axial CSF spaces are appropriate. Shell-white matter differentiation is normal. No mass, mass effect or infarct. No skull fracture. Visualized paranasal sinuses, mastoid air cells and middle ears are clear. CT/CT head/brain wo IV con IMPRESSION: Unremarkable exam. Dictated By: Nicole Shen MD Signed By: Electronically signed by Nicole Shen MD 08/09/23 1343 Examination: Bilateral ankle comparison CLINICAL INDICATION: Fall. Pain. COMPARISON: Left ankle 06/03/2022 TECHNIQUE:: 3 views each ankle. FINDINGS: Right ankle: There is increased distance between the lateral talar dome and lateral articulating tibia likely ligamentous contusion or strain. No visible acute fracture or dislocation seen. There is a small calcaneal and retrocalcaneal enthesophytes. There is bimalleolar soft tissue swelling. Left ankle: There is increased distance between the lateral tibial dome and lateral articulating tibia likely ligament contusion or sprain. No acute fracture or dislocation seen. Incidental finding of increased sclerosis along the lateral tibial distal cortex likely periosteal/cortical thickening, healing stress fracture. There is a small calcaneal heel and retrocalcaneal enthesophyte. There is bimalleolar soft tissue swelling. XR/XR ankle RT min 3V IMPRESSION: Increased distance between the lateral tibial dome and the articulating lateral tibia in both angles likely lateral tibia and fibular ligament strain or contusion. There is no visible acute fracture or dislocation seen. Increased sclerosis along the lateral tibial cortex left ankle likely healing old stress fracture or injury. Dictated By: Dangelo Beckford MD Signed By: Electronically signed by Dangelo Beckford MD 08/09/23 1410 Vent. Rate: 066 BPM Atrial Rate: 066 BPM P-R Int: 188 ms QRS Dur: 078 ms QT Int: 418 ms P-R-T Axes: 092 -03 043 degrees QTc Int: 438 ms Normal sinus rhythm Cannot rule out Inferior infarct , age undetermined Abnormal ECG When compared with ECG of 30-JUL-2023 02:34, Minimal criteria for Inferior infarct are now Present DD/ 1455 Radiology Impression Discussion of test interpretation with radiology: I have reviewed the radiologist's reading. Independent Historian Clinical information obtained from an independent historian. History obtained from or confirmed by: EMS (EMS provided additional history and confirmed the history provided by the patient.) and Other (patient's snf staff provided additional history and confirmed the history provided by the patient.) Critical Care Time Critical Care Time Critical Care Time: Yes Total Critical Care Time: 45 Attestation: I spent 45 minutes of Critical Care Time with this patient. This does not include time spent on separately reported billable procedures. Discharge Plan Discharge Clinical Impression: Stress fracture of left tibia, Fall Patient Disposition: Home, Self-Care Instructions: Fall Prevention (ED) Additional Instructions: Follow up with your primary care provider and an orthopedic provider. Return to the emergency department immediately if your symptoms worsen or if you develop any dizziness, shortness of breath, difficulty breathing, chest pain, blurry vision, loss of vision, nausea, vomiting, abdominal pain, fever, chills, back pain, or any other complaints. Prescriptions: No Action acetaminophen 325 mg tablet 650 mg PO Q4H PRN (Reason: fever or pain) 90 Days Qty: 180 2RF lactase [Lactaid] 3,000 unit tablet 3,000 unit PO .QD PRN (Reason: lactose intolerance) Qty: 90 3RF Rx Instructions: take at the start of drinking milk only propranolol 20 mg tablet 20 mg PO TID@0800,1600,2000 90 Days Qty: 270 3RF (DME) OneTouch Ultra Test Strip See Rx Instructions .Route Qty: 100 5RF Rx Instructions: test once daily (DME) blood-glucose meter [OneTouch Ultra2 Meter] Misc See Rx Instructions .Route Qty: 1 0RF Rx Instructions: test once daily (DME) lancets [OneTouch UltraSoft 2 Lancet] 30 gauge misc See Rx Instructions .Route Qty: 100 5RF Rx Instructions: test once daily nystatin 100,000 unit/gram powder 1 appl TOPICAL TID PRN (Reason: Rash) Qty: 60 0RF fluticasone propionate 50 mcg/actuation spray,suspension 2 spray INTRANASAL BID metformin 500 mg tablet 500 mg PO BID atorvastatin 10 mg tablet 10 mg PO BEDTIME risperidone 3 mg tablet 3 mg PO BID divalproex 500 mg tablet extended release 24 hr 1,000 mg PO BID hydralazine 50 mg tablet 50 mg PO TID gabapentin 100 mg capsule 200 mg PO BID dexlansoprazole 60 mg capsule,biphase delayed releas 60 mg PO BEDTIME Jardiance 10 mg tablet 10 mg PO DAILY fluticasone propion-salmeterol [Advair Diskus] 250-50 mcg/dose blister with device 1 ea inhalation BID sennosides [Senna Lax] 8.6 mg Tablet 8.6 mg PO BEDTIME cyanocobalamin (vitamin B-12) 1,000 mcg Tablet 1,000 mcg PO BEDTIME guaifenesin [Siltussin SA] 100 mg/5 mL Liquid 200 mg PO Q4H PRN (Reason: Cough) ferrous sulfate 325 mg (65 mg iron) Tablet 325 mg PO BID Citrucel 500 mg Tablet 500 mg PO DAILY albuterol sulfate 90 mcg/actuation Hfa Aerosol Inhaler 2 puff INHALATION Q6H PRN (Reason: Wheezing) ondansetron 4 mg Tablet,Disintegrating 4 mg PO Q6H PRN (Reason: Nausea And Vomiting) cholecalciferol (vitamin D3) 25 mcg (1,000 unit) Tablet 25 mcg PO DAILY GenTeal Tears Mild 0.1-0.3 % Drops 1 drp ophthalmic (eye) Q4H PRN (Reason: Dry Eye(S)) Ure-Na 15 gram Powder In Packet 1 packet PO DAILY lisinopril 20 mg tablet 20 mg PO DAILY Qty: 30 3RF alum-mag hydroxide-simeth [Mylanta Maximum Strength] 400-400-40 mg/5 mL suspension 5 ml PO QID PRN (Reason: indigestion) Qty: 100 11RF bismuth subsalicylate [Pepto-Bismol] 262 mg/15 mL suspension 524 mg PO QID PRN (Reason: diarrhea) 7 Days Qty: 1200 0RF Referrals: [facility] [Provider Group] (Call to establish and follow up with an orthopedic provider.) Po,Robert Downing MD [Primary Care Provider] - Interventions: ED Discharge Assessment Last Done: 08/09/23 15:10 Discharge Date/Time: 08/09/23 15:23 Print Language: Zambian
[2023-08-09 12:12] VITALS: BP 146/79; PULSE 70; RESP 16; TEMP 36.5; O2SAT 99; BMI 38.7
--- NOTE | 2023-08-09 12:22 | PC.NURSE ---
endorsing si at this time. states separate times that he tripped trying to get out of bed and that his roommate tripped him. care team aware of pt
--- NOTE | 2023-08-09 12:57 | PC.NURSE ---
case management meeting with patient
--- NOTE | 2023-08-09 13:21 | ECG_ITS ---
Test Reason : POLYPHARMACY Blood Pressure : / mmHG Vent. Rate : 066 BPM Atrial Rate : 066 BPM P-R Int : 188 ms QRS Dur : 078 ms QT Int : 418 ms P-R-T Axes : 092 -03 043 degrees QTc Int : 438 ms Normal sinus rhythm Cannot rule out Inferior infarct , age undetermined Abnormal ECG When compared with ECG of 30-JUL-2023 02:34, Minimal criteria for Inferior infarct are now Present Referred By: Veda Price Electronically Signed By:LEVI WHITMORE
--- NOTE | 2023-08-09 13:42 | MHC.CM.ED ---
Received consult for assessment of d/c needs: Pt from a senior living: has court appointed guardian - on file: presented to ED after a fall at senior living w/head strike. Met w/pt who was alert, pleasant and communicative: states he was attempted to stand from a seated position in his room w/walker when he lost his balance striking the back of his head against a night stand. He states he was alone when this occurred and staff called EMS after they could not assist him up. Pt waiting for head imaging at this time. Pt does not have skilled services at this time. It is expected he will d/c back to senior living once medically cleared. prison staff or pt's sister may be able to transport pt home. ED CM to follow.
[2023-08-09 14:09] VITALS: BP 121/59; PULSE 68; RESP 12; O2SAT 100
[2023-08-09 14:37] LABS: MANUAL DIFF FLAG NO
[2023-08-09 14:38] LABS: Mean Corpuscular Volume 90.9 fL (80.0-98.0); Monocytes Percent Auto 11.1 % (2-11); Neutrophils Absolute Auto 3.2 x10*3/uL (2.0-8.3); PLT CLUMP 1; SCAN SMEAR FLAG 1
[2023-08-09 14:39] LABS: Appearance Urine Clear; Color Urine Yellow; Glucose Urine UA >=1000 mg/dL (Negative); Leukocyte Esterase Urine Negative (Negative); Nitrite Urine Negative (Negative); Specific Gravity - Urine >= 1.030 (1.005-1.025); UMIC TRIGGER UACC YES; Urine Blood Negative (Negative); Urine Ketones Negative (Negative); Urine Protein Negative (Neg-Trace)
[2023-08-09 14:40] LABS: Basophils Percent Auto 0.4 % (0-2); Eosinophils Percent Auto 0.8 % (0-4); Hematocrit 36.8 % (42.0-52.0); Hemoglobin 12.2 g/dl (14.0-18.0); Imm Gran Abs Auto 0.07 X10*3/uL (0.00-0.03); Imm Gran Pct Auto 1.3 % (0.0-0.4); Lymphocytes Absolute Auto 1.4 X10*3/uL (1.2-4.9); Lymphocytes Percent Auto 26.1 % (20-40); Mean Corpuscular HGB Conc 33.2 g/dl (31.0-36.0); Mean Corpuscular Hemoglobin 30.1 pg (27.0-33.0); Monocytes Absolute Auto 0.6 X10*3/uL (0.1-1.2); Neutrophils Percent Auto 60.3 % (45-73); Red Blood Count 4.05 X10*6/uL (4.60-5.80); Red Cell Distribution Width 12.5 % (11.0-16.0)
[2023-08-09 14:41] LABS: Bacteria Urine None Seen (None Seen); Hyaline Casts Urine 0-2 /LPF (0-2); Platelet Count 111 X10*3/uL (160-400); RBC Urine 0-2 /HPF (0-2); Squamous Epithelial Cell Urine 0-2 /HPF (0-2); WBC Urine 0-5 /HPF (0-5); White Blood Count 5.3 X10*3/uL (4.8-10.8)
[2023-08-09 14:46] LABS: Amphetamine Screen Urine Not Detected (Not Detect); Barbiturates, Urine Not Detected (Not Detect); Benzodiazepines Screen Urine Not Detected (Not Detect); Cannabinoid Screen Urine Not Detected (Not Detect); Cocaine Screen Urine Not Detected (Not Detect); Fentanyl, urine Not Detected (Not Detect); Opiate Screen Urine Not Detected (Not Detect); Phencyclidine Screen Urine Not Detected (Not Detect)
[2023-08-09 14:53] LABS: COVID-19 Test Negative (Negative); IDNOW Serial# BCCEAD1C
== END 2023-08-09 15:23 | disposition home or self-care (01) ==
PROVIDERS: Physician Assistant Medical; Emergency Provider Emergency Medicine; PCP Internal Medicine
DX: R45.851 Suicidal ideations (principal); S82.292A Other fracture of shaft of left tibia, initial encounter for closed fracture; W06.XXXA Fall from bed, initial encounter; Z20.822 Contact with and (suspected) exposure to COVID-19; F20.9 Schizophrenia, unspecified; E11.69 Type 2 diabetes mellitus with other specified complication; I10 Essential (primary) hypertension; E78.5 Hyperlipidemia, unspecified; I48.91 Unspecified atrial fibrillation; Y93.9 Activity, unspecified; Y92.042 Bedroom in boarding-house as the place of occurrence of the external cause; Y99.9 Unspecified external cause status; Z79.899 Other long term (current) drug therapy
CPT/HCPCS: 70450; 72125; 73610; 80053; 80307; 81001; 83735; 85025; 87635; 93005; 99285; S9485

== ENCOUNTER 2023-08-18 14:50 | Outpatient (AMB) | payer MEDICARE, MEDICAID, SELFPAY ==
[2023-08-18 14:54] VITALS: BP 136/82; PULSE 85; O2SAT 100; BMI 37.3
--- NOTE | 2023-08-18 14:54 | MHC.PC.OV ---
Vital Signs 08/18/23 14:54 Height 5 ft 10 in Weight 260 lb BMI 37.3 BP 136/82 Blood Pressure Location Lt brachial Position Sitting Pulse 85 Pulse Source Pulse Oximeter Temp Source Skin Pulse Oximetry (%) 100 Oxygen Delivery Method Room Air Intake Visit Reasons: DM Allergies Sulfa (Sulfonamide Antibiotics) Allergy (Severe, Verified 08/18/23 14:55) LANDEROS ALICIA REACTION, Landeros Alicia trimethoprim Allergy (Mild, Verified 08/18/23 14:55) UNKNOWN lactose Adverse Reaction (Mild, Verified 08/18/23 14:55) STOMACH UPSET Tobacco use date assessed: 08/18/23 Dental Screening Dental Screen Date: 08/18/23 Did you have a dental visit in the last 12 months?: Yes Did you have a dental problem in the last 6 months where you did not have access to dental care?: No Was dental information given to patient?: Patient has dentist HPI DM HPI Details 52-year-old morbidly obese male with schizophrenia diabetes mellitus GERD renal insufficiency asthma hypercholesterolemia hypertension cerebellar ataxia coming in for follow-up. Last seen 08/01/2023. ER visit 08/09/2023 falling off the bed complained of ankle pain neck pain states hitting his head. CT of the cervical spine showing no fracture has degenerative spondylosis CT of the head is unremarkable left ankle left ankle ligament strain old stress fracture ankle left PFSH Medical History (Updated 08/18/23 @ 15:49 by Robert Sumner MD) Ankle pain, left Feeling suicidal Tinea cruris Atrial flutter Atrial fib/flutter, transient A-fib Arrhythmia Abnormal EKG Contusion of left ankle Annual physical exam Abdominal pain Back pain Positive colorectal cancer screening using Cologuard test Precordial chest pain Hospital discharge follow-up Chest pain Right ankle pain Musculoskeletal chest pain Left-sided chest pain Back pain Fall Acute kidney injury Gait instability Suicidal ideation COVID-19 Hypomagnesemia Diarrhea Abdominal pain Left ankle sprain Seizure disorder Hypertension Anxiety Hyponatremia Cerebellar ataxia Anemia Lactose intolerance Vertigo Asthma Mental disability Type 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 Proteinuria Hyperlipidemia LDL goal <100 Essential hypertension Surgical History Hx of colonoscopy History of orchiectomy Family History Father Myocardial infarction CVD (cardiovascular disease) Diabetes mellitus Mother Diabetes mellitus HTN (hypertension) Brother In good health Sister In good health Social History Household Members: Other Household Members Other:: from [facility] Housing: Other Housing Other:: [facility] Do you presently have visiting nurse or other home services: Yes Alcohol intake: current Alcohol intake frequency: a few times a week Alcohol type: hard liquor Patient Tobacco Use Status: Never used Tobacco e-Cigarette/Vaping Use: Never Used Second Hand Smoke Exposure: No Advance Directives Date on File: 05/23/21 service: No Current occupational status: disabled Cognitive needs: Yes (walker) Hearing needs: No Vision needs: Yes (glasses) Questionnaire Thrive Questionnaire Date Thrive assessed: 12/16/22 AUDIT C Alcohol Use Questionnaire (AUDIT-C) 1. How often do you have a drink containing alcohol?: Never 2. How many drinks containing alcohol do you have on a typical day when you are drinking?: 1 or 2 (0) 3. How often do you have six or more drinks on one occasion?: Never Total Score: 0 Score Reviewed/Action Taken: Yes CHANI-7 AMB Questionnaire CHANI-7 Date CHANI - 7 assessed: 12/16/22 Source: Developed by Drs. Wellington López, Monica Jackson, Ray Nguyen and colleagues, with an educational perez from [employer]. Physical exam (Primary Care) Vital Signs: Last Vital Signs Pulse 85 08/18/23 14:54 BP 136/82 08/18/23 14:54 Pulse Ox 100 08/18/23 14:54 Oxygen Delivery Method Room Air 08/18/23 14:54 BMI result Body Mass Index 37.3 Tobacco/Smoking Status: Tobacco use Status Tobacco use date assessed 08/18/23 08/18/23 14:58 Patient Tobacco Use Status Never used Tobacco 08/18/23 14:58 e-Cigarette/Vaping Use Never Used 08/18/23 14:58 Thrive Assessment: Date of Thrive Assessment Date Thrive assessed 12/16/22 08/18/23 14:58 Const General: alert; No acute distress Eyes Conjunctivae: conjunctivae normal Resp Auscultation: clear to auscultation bilaterally Cardio Rate: regular rate Rhythm: regular rhythm GI Inspection: Yes normal to inspection Extrem General: Yes normal to inspection and No edema Results AMB Hemoglobin A1c AMB Hemoglobin A1c 7.4 % Last Edit by YANNA Pinon on 08/18/23 15:06 Results Reviewed Results Reviewed: Laboratory Last Values Hgb A1c (Clinic) 7.4 % (4.0-6.0) H 08/18/23 15:05 Assessment and Plan Assessment & Plan (1) Type 2 diabetes mellitus with hyperglycemia: Code(s): E11.65 - Type 2 diabetes mellitus with hyperglycemia Plan: Decrease the amount of carbohydrate intake, pasta, bread, rice and potatoes are all sugar and that is aside from all the sweet stuff, remember that fruits are good but they are Sweet also. Hemoglobin A1c goal of less than 6.5. Patient is on Jardiance 10 mg once a day metformin 500 mg twice a day (2) Schizophrenia: Code(s): F20.9 - Schizophrenia, unspecified Plan: Continue with counseling and therapy (3) Essential hypertension: Code(s): I10 - Essential (primary) hypertension Plan: Continue with blood pressure medication. Decrease salt intake and exercise on lisinopril 20 mg once a day hydralazine 50 mg 3 times a day (4) Hyperlipidemia LDL goal <100: Code(s): E78.5 - Hyperlipidemia, unspecified Plan: Avoid fried foods, chicken skin, eggs, butter margarine, pastries and meat. Be it pork or beef they have a lot of cholesterol LDL goal of less than 100 on atorvastatin 10 mg once a day (5) Ankle pain, left: Code(s): M25.572 - Pain in left ankle and joints of left foot Plan: Fall doing good Orders: Orders AMB Hemoglobin A1c Today E11.65 - Type 2 diabetes mellitus with hyperglycemia Medications: New empagliflozin (Jardiance) 25 mg PO DAILY 30 tabs 9RF E11.65 - Type 2 diabetes mellitus with hyperglycemia sennosides (Senna Lax) hold for loose stools 8.6 mg PO BEDTIME PRN 90 tabs 0RF constipation E11.65 - Type 2 diabetes mellitus with hyperglycemia Coding Level of Care Code Est Pt Level 4 (19501) Diagnoses Type 2 diabetes mellitus with hyperglycemia E11.65 Schizophrenia F20.9 Essential hypertension I10 Hyperlipidemia LDL goal <100 E78.5 Ankle pain, left M25.572
== END 2023-08-18 16:04 | disposition home or self-care (01) ==
PROVIDERS: PCP Internal Medicine; Visit Provider Internal Medicine
DX: E11.65 Type 2 diabetes mellitus with hyperglycemia (principal); F20.9 Schizophrenia, unspecified; E66.01 Morbid (severe) obesity due to excess calories; Z68.37 Body mass index [BMI] 37.0-37.9, adult; I10 Essential (primary) hypertension; E78.5 Hyperlipidemia, unspecified; M25.572 Pain in left ankle and joints of left foot
CPT/HCPCS: 83036; 99214

== ENCOUNTER 2023-08-25 17:25 | Outpatient (AMB) | payer MEDICARE, MEDICAID, SELFPAY ==
--- NOTE | 2023-08-25 17:45 | A.OFFPC_ITS ---
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: No Accompanied by: Staff Allergies Sulfa (Sulfonamide Antibiotics) Allergy (Severe, Verified 08/25/23 17:47) LANDEROS ALICIA REACTION, Landeros Alicia trimethoprim Allergy (Mild, Verified 08/25/23 17:47) UNKNOWN lactose Adverse Reaction (Mild, Verified 08/25/23 17:47) STOMACH UPSET Tobacco use date assessed: 08/18/23 Dental Screening Dental Screen Date: 08/25/23 Did you have a dental visit in the last 12 months?: No Did you have a dental problem in the last 6 months where you did not have access to dental care?: No Was dental information given to patient?: Patient has dentist HPI edema lower legs HPI Details 53-year-old obese male with schizophreni a diabetes mellitus essential hypertension hypercholesterolemia coming in for follow-up. Patient was just last seen last week coming in for follow-up patient comes in for an acute problem lower extremity swelling. Patient has activities very minimal sitting and lying down most of the time . Did review the past history has had this swelling also earlier this year and an ultrasound of the legs was done revealing negative results. Patient has peripheral vascular disease needs to exercise needs to move needs to have support stockings. Has the juxta Lite compression but has not been using it. Patient was taken off earlier Lasix due to renal function increasing but with this problem set this back to start Lasix 20 mg once a day [facility] Medical History (Updated 08/25/23 @ 18:28 by Robert Sumner MD) Leg swelling Ankle pain, left Feeling suicidal Tinea cruris Atrial flutter Atrial fib/flutter, transient A-fib Arrhythmia Abnormal EKG Contusion of left ankle Annual physical exam Abdominal pain Back pain Positive colorectal cancer screening using Cologuard test Precordial chest pain Hospital discharge follow-up Chest pain Right ankle pain Musculoskeletal chest pain Left-sided chest pain Back pain Fall Acute kidney injury Gait instability Suicidal ideation COVID-19 Hypomagnesemia Diarrhea Abdominal pain Left ankle sprain Seizure disorder Hypertension Anxiety Hyponatremia Cerebellar ataxia Anemia Lactose intolerance Vertigo Asthma Mental disability Type 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 Proteinuria Hyperlipidemia LDL goal <100 Essential hypertension Surgical History Hx of colonoscopy History of orchiectomy Family History Father Myocardial infarction CVD (cardiovascular disease) Diabetes mellitus Mother Diabetes mellitus HTN (hypertension) Brother In good health Sister In good health Social History Household Members: Other Household Members Other:: from long term Housing: Other Housing Other:: long term Do you presently have visiting nurse or other home services: Yes Alcohol intake: current Alcohol intake frequency: a few times a week Alcohol type: hard liquor Patient Tobacco Use Status: Never used Tobacco e-Cigarette/Vaping Use: Never Used Second Hand Smoke Exposure: No Advance Directives Date on File: 05/23/21 service: No Current occupational status: disabled Cognitive needs: Yes (walker) Hearing needs: No Vision needs: Yes (glasses) Questionnaire Thrive Questionnaire Date Thrive assessed: 12/16/22 CHANI-7 AMB Questionnaire CHANI-7 Date CHANI - 7 assessed: 12/16/22 Source: Developed by Drs. Wellington López, Monica Jackson, Ray Nguyen and colleagues, with an educational perez from [employer]. Physical exam (Primary Care) Vital Signs: Last Vital Signs Pulse 70 08/25/23 17:46 BP 140/90 H 08/25/23 17:46 Pulse Ox 99 08/25/23 17:46 Oxygen Delivery Method Room Air 08/25/23 17:46 Tobacco/Smoking Status: Tobacco use Status Tobacco use date assessed 08/18/23 08/25/23 17:55 Patient Tobacco Use Status Never used Tobacco 08/25/23 17:55 e-Cigarette/Vaping Use Never Used 08/25/23 17:55 Thrive Assessment: Date of Thrive Assessment Date Thrive assessed 12/16/22 08/25/23 17:55 Const General: alert; No acute distress Eyes Conjunctivae: conjunctivae normal Resp Auscultation: clear to auscultation bilaterally Cardio Rate: regular rate Rhythm: regular rhythm GI Inspection: Yes normal to inspection Extrem Other: 2+ edema bilateral lower extremity General: Yes edema Office Procedures Flu Questionnaire Does the patient have a severe egg allergy?: No Does the patient have severe life threatening allergies?: No Does the patient have a fever or illness today?: No Has the patient ever had Guillain-Mansfield Syndrome?: No Has the patient ever had any past reaction to a flu shot?: No Immunizations flu vacc [id number] 6mos up(PF) 60 mcg(15 mcgx4)/0.5 mL IM syringe Performing Provider: Robert Sumner MD [facility] Administered by: YANNA Cannon on 08/25/23 18:41 Dose Route Admin Location Dispensed Lot Number Expiration Date NDC Eeg Tech 0.5 mL IM Right Deltoid 0.5 mL [id number] 05/09/24 19114-819-55 SHADOW VIS Given Date VIS Provided VIS Publication Date 08/25/23 Single Vaccine 21 Eligibility Eligibility Date Funding Source Not [facility] Eligible 08/25/23 Private Assessment and Plan Assessment & Plan (1) Type 2 diabetes mellitus with hyperglycemia: Code(s): E11.65 - Type 2 diabetes mellitus with hyperglycemia Plan: Decrease the amount of carbohydrate intake, pasta, bread, rice and potatoes are all sugar and that is aside from all the sweet stuff, remember that fruits are good but they are Sweet also. Patient is taking metformin 500 mg twice a day Jardiance 25 mg once a day (2) Renal insufficiency: Code(s): N28.9 - Disorder of kidney and ureter, unspecified Plan: Keep well hydrated avoid NSAIDs (3) Essential hypertension: Code(s): I10 - Essential (primary) hypertension Plan: Continue with blood pressure medication. Decrease salt intake and exercise patient is taking hydralazine 50 mg 3 times a day lisinopril 20 mg once a day (4) Leg swelling: Code(s): M79.89 - Other specified soft tissue disorders Plan: noted November had same problem and US venous done - no dvt WHEN SITTING DOWN ELEVATE THE LEGS, EXERCISE, AND SUPPORT STOCKINGS. Prescription for support stockings printed. Lasix 20 mg started and blood work requested Orders: Orders Comprehensive Met. Panel Today M79.89 - Other specified soft tissue disorders B Type Natriuretic Peptide Today M79.89 - Other specified soft tissue disorders Medications: New furosemide 20 mg PO DAILY 30 tabs 0RF M79.89 - Other specified soft tissue disorders [email or web address],knee,[email or web address],xlrg As directed 20-30 mm HG 12 ea 0RF M79.89 - Other specified soft tissue disorders Coding Level of Care Code Est Pt Level 4 (76140) Diagnoses Type 2 diabetes mellitus with hyperglycemia E11.65 Renal insufficiency N28.9 Essential hypertension I10 Leg swelling M79.89
[2023-08-25 17:46] VITALS: BP 140/90; PULSE 70; O2SAT 99
== END 2023-08-25 18:41 | disposition home or self-care (01) ==
LOC: HO.HMGH 17:25
PROVIDERS: PCP Internal Medicine; Visit Provider Internal Medicine
DX: E11.65 Type 2 diabetes mellitus with hyperglycemia (principal); N28.9 Disorder of kidney and ureter, unspecified; I10 Essential (primary) hypertension; M79.89 Other specified soft tissue disorders; Z23 Encounter for immunization
CPT/HCPCS: 90471; 90686; 99214

== ENCOUNTER 2023-09-10 22:28 | Emergency (ER) | payer MEDICARE, MEDICAID, SELFPAY ==
[2023-09-10 22:39] VITALS: BP 148/84; PULSE 77; O2SAT 98
[2023-09-10 22:40] VITALS: BP 148/81; PULSE 85; RESP 18; TEMP 37; O2SAT 99; BMI 44.6
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
== END 2023-09-10 23:45 | disposition home or self-care (01) ==
PROVIDERS: Emergency Provider Emergency Medicine
DX: F41.9 Anxiety disorder, unspecified (principal); I10 Essential (primary) hypertension; E11.9 Type 2 diabetes mellitus without complications; E78.5 Hyperlipidemia, unspecified; I48.91 Unspecified atrial fibrillation; Z79.899 Other long term (current) drug therapy; Z79.84 Long term (current) use of oral hypoglycemic drugs
CPT/HCPCS: 99283

== ENCOUNTER 2023-09-17 15:24 | Emergency (ER) | payer MEDICARE, MEDICAID, SELFPAY ==
[2023-09-17 15:42] VITALS: BP 128/86; BP 133/76; PULSE 75; PULSE 96; RESP 20; TEMP 37.2; O2SAT 96; O2SAT 98; BMI 43.8
--- NOTE | 2023-09-17 16:05 | ED.PSYCH ---
HPI - Psych General Chief Complaint: Psychiatric Symptoms Stated Complaint: SI,FEELS LIKE HURTING OTHERS, NON MED COMPLIANT Time Seen by Provider: 09/17/23 15:58 Source: patient and old records reviewed Mode of arrival: EMS Limitations: no limitations History of Present Illness HPI Narrative: 53 yo male with PMH of DM, renal ds, asthma, HLD, HTN, cognitive developmental delay, gait instability, schizophrenia, chronic SI - he states he got into a verbal argument with his staff member today and was upset and so he felt like he wanted to hurt himself. He is otherwise okay and likes his custodial. He thought about choking himself. He is feeling better. I did talk to the CARE team he has a plan in place to go back to custodial as this is a chronic presentation. MD complaint: suicidal ideation and anxiety Onset (ago): hour(s) (few) Duration: other (improving) History of same: Yes Relieving factors: none Exacerbating factors: other Context: other (issue with staff) Associated psychiatric symptoms: suicidal ideation Associated symptoms: denies other symptoms Treatments prior to arrival: none If self harm: admits thoughts of self harm Related Data Home Medications Medication Instructions Recorded Confirmed fluticasone propionate 50 2 spray intranasal BID 11/19/22 07/29/23 mcg/actuation nasal spray,suspension atorvastatin 10 mg tablet 10 mg PO BEDTIME 06/10/23 07/29/23 dexlansoprazole 60 mg 60 mg PO BEDTIME 06/10/23 07/29/23 capsule,biphase delayed release divalproex 500 mg tablet,extended 1,000 mg PO BID 06/10/23 07/29/23 release 24 hr fluticasone 250 mcg-salmeterol 50 1 ea inhalation BID 06/10/23 07/29/23 mcg/dose blistr powdr for inhalation (Advair Diskus) gabapentin 100 mg capsule 200 mg PO BID 06/10/23 07/29/23 hydralazine 50 mg tablet 50 mg PO TID 06/10/23 07/29/23 metformin 500 mg tablet 500 mg PO BID 06/10/23 07/29/23 risperidone 3 mg tablet 3 mg PO BID 06/10/23 07/29/23 albuterol sulfate 90 mcg/actuation 2 puff inhalation Q6H PRN Wheezing 07/29/23 07/29/23 aerosol inhaler cholecalciferol (vitamin D3) 25 25 mcg PO DAILY 07/29/23 07/29/23 mcg (1,000 unit) tablet cyanocobalamin (vitamin B-12) 1,000 mcg PO BEDTIME 07/29/23 07/29/23 1,000 mcg tablet dextran 70-hypromellose 0.1 %-0.3 1 drp ophthalmic (eye) Q4H PRN Dry 07/29/23 07/29/23 % eye drops (GenTeal Tears Mild) Eye(S) ferrous sulfate 325 mg (65 mg 325 mg PO BID 07/29/23 07/29/23 iron) tablet guaifenesin 100 mg/5 mL oral 200 mg PO Q4H PRN Cough 07/29/23 07/29/23 liquid (Siltussin SA) methylcellulose (laxative) 500 mg 500 mg PO DAILY 07/29/23 07/29/23 tablet (Citrucel) ondansetron 4 mg disintegrating 4 mg PO Q6H PRN Nausea And Vomiting 07/29/23 07/29/23 tablet urea 15 gram oral powder packet 1 packet PO DAILY 07/29/23 07/29/23 (Ure-Na) Previous Rx's Medication Instructions Recorded acetaminophen 325 mg tablet 650 mg (2 x 325 mg) PO Q4H PRN 06/11/22 fever or pain 90 days #180 tabs lactase 3,000 unit tablet (Lactaid) 3,000 unit PO .QD PRN lactose 10/14/22 intolerance #90 tabs propranolol 20 mg tablet 20 mg PO TID@0800,1600,2000 90 10/25/22 days #270 tabs blood sugar diagnostic (OneTouch #100 ea 06/17/23 Ultra Test strips) blood-glucose meter (OneTouch #1 ea 06/17/23 Ultra2 Meter) lancets 30 gauge (OneTouch #100 ea 06/17/23 UltraSoft 2 Lancet) aluminum-mag hydroxide-simethicone 5 ml PO QID PRN indigestion #100 mL 08/01/23 400 mg-400 mg-40 mg/5 mL oral susp (Mylanta Maximum Strength) bismuth subsalicylate 262 mg/15 mL 524 mg (30 mL) PO QID PRN diarrhea 08/01/23 oral suspension (Pepto-Bismol) 7 days #1,200 mL lisinopril 20 mg tablet 20 mg PO DAILY #30 tabs 08/01/23 nystatin 100,000 unit/gram topical 1 appl topical TID PRN Rash #60 08/04/23 powder grams empagliflozin 25 mg tablet 25 mg PO DAILY #30 tabs 08/18/23 (Jardiance) sennosides 8.6 mg tablet (Senna 8.6 mg PO BEDTIME PRN constipation 08/18/23 Lax) #90 tabs alvarez.stocking,knee,reg,xlrg #12 ea 08/27/23 furosemide 20 mg tablet 20 mg PO DAILY #30 tabs 09/02/23 Allergies Allergy/AdvReac Type Severity Reaction Status Date / Time Sulfa (Sulfonamide Allergy Severe CHAVEZ Verified 09/10/23 22:51 Antibiotics) ALICIA REACTION, Chavez Alicia trimethoprim Allergy Mild UNKNOWN Verified 09/10/23 22:51 lactose AdvReac Mild STOMACH Verified 09/10/23 22:51 UPSET Review of Systems Review of Systems: Constitutional : No Fever, No Chills ENT/Mouth : No Ear Pain, No Nasal Congestion, No sore throat Eyes: No Eye Pain, No Swelling, No Redness Cardiovascular : No Chest Pain, No SOB Respiratory : No Cough, No Sputum, No Dyspnea Gastrointestinal : No Nausea, No Vomiting, No Diarrhea, No Hematochezia, No Melena Genitourinary : No Dysuria, No Urinary Frequency, No Hematuria Musculoskeletal : No Myalgias Skin : No Skin Lesions, No rash Neuro : No Weakness, No Numbness, No Paresthesias, No Dizziness, No Headache Psych : positive Anxiety, positive Depression, positive SI no HI All other systems reviewed and are negative [facility] Past Medical History Attestation statement: The following information was validated with the patient. Source: old records reviewed Medical History Leg swelling Ankle pain, left Feeling suicidal Tinea cruris Atrial flutter Atrial fib/flutter, transient A-fib Arrhythmia Abnormal EKG Contusion of left ankle Annual physical exam Abdominal pain Back pain Positive colorectal cancer screening using Cologuard test Precordial chest pain Hospital discharge follow-up Chest pain Right ankle pain Musculoskeletal chest pain Left-sided chest pain Back pain Fall Acute kidney injury Gait instability Suicidal ideation COVID-19 Hypomagnesemia Diarrhea Abdominal pain Left ankle sprain Seizure disorder Hypertension Anxiety Hyponatremia Cerebellar ataxia Anemia Lactose intolerance Vertigo Asthma Mental disability Type 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 Proteinuria Hyperlipidemia LDL goal <100 Essential hypertension Surgical History Hx of colonoscopy History of orchiectomy Family History Family History Father Myocardial infarction CVD (cardiovascular disease) Diabetes mellitus Mother Diabetes mellitus HTN (hypertension) Brother In good health Sister In good health Social History Social History Household Members: Other Household Members Other:: from custodial Housing: Other Housing Other:: custodial Do you presently have visiting nurse or other home services: Yes Alcohol intake: current Alcohol intake frequency: a few times a week Alcohol type: hard liquor Patient Tobacco Use Status: Never used Tobacco e-Cigarette/Vaping Use: Never Used Second Hand Smoke Exposure: No Advance Directives Date on File: 05/23/21 service: No Current occupational status: disabled Cognitive needs: Yes (walker) Hearing needs: No Vision needs: Yes (glasses) Physical Exam Vital Signs: Vital Signs: Last Vital Signs Temp 98.9 F 09/17/23 15:42 Pulse 96 09/17/23 15:42 Resp 20 09/17/23 15:42 BP 133/76 09/17/23 15:42 Pulse Ox 96 09/17/23 15:42 O2 Del Method Room Air 09/17/23 15:42 BMI result Body Mass Index 43.8 Appearance: Alert. Oriented X3. No acute distress. Eyes: Pupils equal, round and reactive to light. ENT: Pharynx normal. Neck: Normal inspection. Neck supple. CVS: Normal heart rate and rhythm. Pulses normal. Respiratory: No respiratory distress. Breath sounds normal. Abdomen: Soft and nontender. Skin: Skin warm and dry. Normal skin color. Normal skin turgor. Extremities: 1-2+ pitting lower ext edema Neuro: Oriented X 3. No motor deficit. No sensory deficit. Medical Decision Making Medical Decision Making MDM Narrative: 53 yo male with PMH of DM, renal ds, asthma, HLD, HTN, cognitive developmental delay, gait instability, schizophrenia, chronic SI here with again thoughts of self harm after fight with staff member he is calm now and feeling better. He has this complaint daily I have low suspicion for self harm. I did talk to the CARE team and his ED care plan should be discharge back to custodial. Differential Diagnosis Differential Diagnoses: The differential diagnosis associated with the presentation includes chronic SI, depression, personal issue with staff member Admission/Observation Consideration of admission/observation: Escalation of care including admission/observation considered can go back to custodial no need for further workup External Record Review External record reviewed: Inpatient record Social Determinants Patient?s care significantly limited by Social Determinants of Health including: Problems related to primary support group Discharge Plan Discharge Clinical Impression: Suicidal ideation Patient Disposition: Home, Self-Care Instructions: Suicide Prevention (ED) Additional Instructions: return for worsening symptoms or thoughts of self harm. please talk to your staff at custodial. please follow up with your outpatient mental health providers Prescriptions: No Action acetaminophen 325 mg tablet 650 mg PO Q4H PRN (Reason: fever or pain) 90 Days Qty: 180 2RF lactase [Lactaid] 3,000 unit tablet 3,000 unit PO .QD PRN (Reason: lactose intolerance) Qty: 90 3RF Rx Instructions: take at the start of drinking milk only propranolol 20 mg tablet 20 mg PO TID@0800,1600,2000 90 Days Qty: 270 3RF (DME) OneTouch Ultra Test Strip See Rx Instructions .Route Qty: 100 5RF Rx Instructions: test once daily (DME) blood-glucose meter [OneTouch Ultra2 Meter] Misc See Rx Instructions .Route Qty: 1 0RF Rx Instructions: test once daily (DME) lancets [OneTouch UltraSoft 2 Lancet] 30 gauge misc See Rx Instructions .Route Qty: 100 5RF Rx Instructions: test once daily nystatin 100,000 unit/gram powder 1 appl TOPICAL TID PRN (Reason: Rash) Qty: 60 0RF (DME) alvarez.stocking,knee,reg,xlrg Misc See Rx Instructions .Route Qty: 12 0RF Rx Instructions: As directed 10-20 mm HG furosemide 20 mg tablet 20 mg PO DAILY Qty: 30 0RF fluticasone propionate 50 mcg/actuation spray,suspension 2 spray INTRANASAL BID metformin 500 mg tablet 500 mg PO BID atorvastatin 10 mg tablet 10 mg PO BEDTIME risperidone 3 mg tablet 3 mg PO BID divalproex 500 mg tablet extended release 24 hr 1,000 mg PO BID hydralazine 50 mg tablet 50 mg PO TID gabapentin 100 mg capsule 200 mg PO BID dexlansoprazole 60 mg capsule,biphase delayed releas 60 mg PO BEDTIME fluticasone propion-salmeterol [Advair Diskus] 250-50 mcg/dose blister with device 1 ea inhalation BID cyanocobalamin (vitamin B-12) 1,000 mcg Tablet 1,000 mcg PO BEDTIME guaifenesin [Siltussin SA] 100 mg/5 mL Liquid 200 mg PO Q4H PRN (Reason: Cough) ferrous sulfate 325 mg (65 mg iron) Tablet 325 mg PO BID Citrucel 500 mg Tablet 500 mg PO DAILY albuterol sulfate 90 mcg/actuation Hfa Aerosol Inhaler 2 puff INHALATION Q6H PRN (Reason: Wheezing) ondansetron 4 mg Tablet,Disintegrating 4 mg PO Q6H PRN (Reason: Nausea And Vomiting) cholecalciferol (vitamin D3) 25 mcg (1,000 unit) Tablet 25 mcg PO DAILY GenTeal Tears Mild 0.1-0.3 % Drops 1 drp ophthalmic (eye) Q4H PRN (Reason: Dry Eye(S)) Ure-Na 15 gram Powder In Packet 1 packet PO DAILY Jardiance 25 mg tablet 25 mg PO DAILY Qty: 30 9RF sennosides [Senna Lax] 8.6 mg tablet 8.6 mg PO BEDTIME PRN (Reason: constipation) Qty: 90 0RF Rx Instructions: hold for loose stools lisinopril 20 mg tablet 20 mg PO DAILY Qty: 30 3RF alum-mag hydroxide-simeth [Mylanta Maximum Strength] 400-400-40 mg/5 mL suspension 5 ml PO QID PRN (Reason: indigestion) Qty: 100 11RF bismuth subsalicylate [Pepto-Bismol] 262 mg/15 mL suspension 524 mg PO QID PRN (Reason: diarrhea) 7 Days Qty: 1200 0RF Interventions: [place]-Suicide Risk Severity Scale Last Done: 09/17/23 15:48
== END 2023-09-17 17:34 | disposition home or self-care (01) ==
PROVIDERS: Emergency Provider Emergency Medicine; PCP Internal Medicine
DX: R45.851 Suicidal ideations (principal); F41.1 Generalized anxiety disorder; F43.0 Acute stress reaction; Z79.899 Other long term (current) drug therapy; Z91.148 Patient's other noncompliance with medication regimen for other reason
CPT/HCPCS: 99283

== ENCOUNTER 2023-09-26 16:10 | Outpatient (AMB) | payer MEDICARE, MEDICAID, SELFPAY ==
[2023-09-26 16:12] VITALS: BP 127/74; PULSE 75
--- NOTE | 2023-09-26 16:12 | MHC.OFFVIS ---
Intake Vital Signs 09/26/23 16:12 Height 5 ft 5 in BP 127/74 Blood Pressure Location Lt brachial Position Sitting Pulse 75 Pulse Source Pulse Oximeter Intake Visit Reasons: 6 month follow up Intake Note: Pt presents to the office today for a 6 month follow up. Pt states he has some abdominal pain everyday which comes and goes. Pt states he also has been having issues with diarrhea. Pt denies any nausea or vomiting. Allergies Sulfa (Sulfonamide Antibiotics) Allergy (Severe, Verified 09/26/23 16:15) CHAVEZ ALICIA REACTION, Chavez Alicia trimethoprim Allergy (Mild, Verified 09/26/23 16:15) UNKNOWN lactose Adverse Reaction (Mild, Verified 09/26/23 16:15) STOMACH UPSET HPI 6 month follow up HPI Details LAST VISIT GERD (gastroesophageal reflux disease) Continue current treatment with Dexilant at bedtime. Discussed with patient avoiding dietary triggers in late night snacking. Staying upright for minimal 3 hours after meals discussed with patient. Diarrhea Continue Citrucel. Patient reports that he does not have diarrhea. Denies constipation. Patient will speak to his family member about going for colonoscopy. Patient staff member also was encouraged to speak the patient and to his sister about going for colonoscopy. I will see him in 6 months, sooner on as needed basis. Patient is agreeable to this plan and verbalizes understanding of instructions. He was given the opportunity to ask questions and all questions answered. ? TODAY'S VISIT: Patient is here today for follow-up, patient is accompanied by staff member. Patient reports that occasionally he will have loose stools, however he also feels like he does not empty his bowels completely for the most part even after he has diarrhea. Patient states that he has right and left lower quadrant pain. Reports to be feeling bloated after meals. Currently patient is taking Senokot 1 tablet and 1 Citrucel in the morning. Patient had modified barium swallow with speech therapy few years ago. He continues to have dysphagia with liquids at times. Patient staff member requested patient will be sent for evaluation. He continues to refuse colonoscopy. Patient denies melena, hematochezia, unintentional weight loss or ribbon like stools. [facility] Medical History Leg swelling Ankle pain, left Feeling suicidal Tinea cruris Atrial flutter Atrial fib/flutter, transient A-fib Arrhythmia Abnormal EKG Contusion of left ankle Annual physical exam Abdominal pain Back pain Positive colorectal cancer screening using Cologuard test Precordial chest pain Hospital discharge follow-up Chest pain Right ankle pain Musculoskeletal chest pain Left-sided chest pain Back pain Fall Acute kidney injury Gait instability Suicidal ideation COVID-19 Hypomagnesemia Diarrhea Abdominal pain Left ankle sprain Seizure disorder Hypertension Anxiety Hyponatremia Cerebellar ataxia Anemia Lactose intolerance Vertigo Asthma Mental disability Type 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 Proteinuria Hyperlipidemia LDL goal <100 Essential hypertension Surgical History Hx of colonoscopy History of orchiectomy Family History Father Myocardial infarction CVD (cardiovascular disease) Diabetes mellitus Mother Diabetes mellitus HTN (hypertension) Brother In good health Sister In good health Household Members: Other Household Members Other:: from fpc Housing: Other Housing Other:: fpc Do you presently have visiting nurse or other home services: Yes Alcohol intake: current Patient Tobacco Use Status: Never used Tobacco e-Cigarette/Vaping Use: Never Used Second Hand Smoke Exposure: No Advance Directives Date on File: 05/23/21 service: No Current occupational status: disabled Cognitive needs: Yes (walker) Hearing needs: No Vision needs: Yes (glasses) Review of Systems Const Denies weight gain and Denies weight loss ENT Reports no additional complaints, Denies dysphagia and Denies odynophagia Card Reports no additional complaints Resp Reports no additional complaints GI Reports abdominal pain (RLQ, LLQ), Denies belching, Denies melena, Denies bloating, Denies change in bowel habits, Denies dysphagia, Denies excessive flatus, Denies dyspepsia, Denies heartburn, Denies diarrhea, Reports loose stools, Denies nausea, Denies odynophagia and Denies vomiting Reports no additional complaints Musc Reports no additional complaints Neuro Reports no additional complaints Psych Reports no additional complaints Endo Reports no additional complaints Physical Exam Vital Signs: Last Vital Signs Pulse 75 09/26/23 16:12 BP 127/74 09/26/23 16:12 Const Other: pt in WC General: no acute distress Nutritional Appearance: obese Orientation/consciousness: patient oriented x3 HEENT Head: Yes normal to inspection, Yes normocephalic and Yes atraumatic Face and sinus: Yes normal facial exam Mouth: Normal oral and palatal mucosa present Throat: Yes posterior oropharynx normal, Yes tonsils normal and Yes uvula midline Eyes General: appearance normal, both eyes and all related structures Neck Neck: Yes normal visual inspection, Yes full ROM and Yes trachea midline Thyroid: Thyroid normal Resp Effort & Inspection: normal respiratory effort, able to speak in complete sentences, no tracheal deviation and symmetric chest movement Auscultation: clear to auscultation bilaterally Cardio Rate: regular rate Heart sounds: S1 normal heart sound present and S2 normal heart sound present GI Inspection: Yes normal to inspection, No distended and Yes obesity Palpation (GI): Soft to palpation, not firm, nontender and No hepatosplenomegaly present Auscultation: normal bowel sounds General: Yes no CVA tenderness Back/Spine/Pelvis Back: no CVA tenderness Skin General skin exam: elasticity normal, turgor normal and dry skin Neuro General: patient oriented x3 Psych Appearance: grossly normal Mental Status: mental status grossly normal Speech and movement: Normal speech and movement present Affect: normal affect Attitude: cooperative Thought process: Normal thought process present Thought content: Normal thought content present Insight: Good insight present (Psych) Judgement: Good judgement present (Psych) Assessment & Plan Assessment & Plan (1) GERD (gastroesophageal reflux disease): Code(s): K21.9 - Gastro-esophageal reflux disease without esophagitis Qualifiers: Esophagitis presence: esophagitis presence not specified Qualified Code(s): K21.9 - Gastro-esophageal reflux disease without esophagitis (2) Diarrhea: Code(s): R19.7 - Diarrhea, unspecified Qualifiers: Diarrhea type: unspecified type Qualified Code(s): R19.7 - Diarrhea, unspecified (3) Abdominal pain: Code(s): R10.9 - Unspecified abdominal pain Qualifiers: Abdominal location: lower abdomen, unspecified Qualified Code(s): R10.30 - Lower abdominal pain, unspecified Plan Will send patient for modified barium swallow. Patient will start taking Citrucel 2 tablets in the morning and to send us in the evening. Discussed with patient avoiding dietary triggers in late night snacking. Continue current PPI treatment. Patient continues to refuse colonoscopy. I will see patient in 3 months, sooner on as needed basis. Patient is agreeable to this plan and verbalizes understanding of instructions. He was given the opportunity to ask questions and all questions answered. Thank you for allowing to participate in his care Orders: Orders [place] barium swallow modified 09/26/23 R13.10 - Dysphagia, unspecified Medications: Changed From methylcellulose (laxative) 500 mg PO DAILY To methylcellulose (laxative) (Citrucel) 1,000 mg (2 x 500 mg) PO DAILY 60 tabs 3RF From sennosides hold for loose stools 8.6 mg PO BEDTIME PRN 90 tabs 0RF constipation To sennosides (Senna Lax) 17.2 mg (2 x 8.6 mg) PO BEDTIME 90 tabs 0RF constipation Coding Level of Care Code Est Pt Level 3 (80147) Diagnoses Gastroesophageal reflux disease, unspecified whether esophagitis present K21.9 Esophagitis presence: esophagitis presence not specified Diarrhea R19.7 Diarrhea type: unspecified type Lower abdominal pain R10.30 Abdominal location: lower abdomen, unspecified Time Spent (min) 30 Comment 20 minutes spent with patient and additional 10 minutes spent reviewing his records
== END 2023-09-26 16:42 | disposition home or self-care (01) ==
PROVIDERS: PCP Internal Medicine; Visit Provider Nurse Practitioner Family
DX: K21.9 Gastro-esophageal reflux disease without esophagitis (principal); R19.7 Diarrhea, unspecified; R10.30 Lower abdominal pain, unspecified
CPT/HCPCS: 99213

== ENCOUNTER → 2023-09-26 16:10 | Outpatient (BNVA) | payer MEDICARE, MEDICAID, SELFPAY | PROVIDERS: PCP Internal Medicine; Visit Provider Nurse Practitioner Family | DX: K21.9 Gastro-esophageal reflux disease without esophagitis (principal); R19.7 Diarrhea, unspecified; R10.30 Lower abdominal pain, unspecified | CPT/HCPCS: 99212 ==

== ENCOUNTER 2023-09-30 16:48 | Emergency (ER) | payer MEDICARE, MEDICAID, SELFPAY ==
--- NOTE | ~2023-09-30 | XR_ITS ---
EXAMINATION: XR TIBIA AND FIBULA, RIGHT CLINICAL INFORMATION: Pain and tenderness COMPARISON: 08/09/2023 ankle films TECHNIQUE: AP and lateral views of the right tibia and fibula were obtained. FINDINGS: Mild diffuse soft tissue swelling is seen. I do not appreciate any acute fracture or dislocation on these images. No radiopaque foreign body or soft tissue gas. XR/XR tibia fibula RT 2V IMPRESSION: Soft tissue swelling but no acute fracture or dislocation seen.
--- NOTE | ~2023-09-30 | US_ITS ---
EXAMINATION: US VENOUS ULTRASOUND WITH DOPPLER LOWER EXTREMITY, RIGHT CLINICAL INFORMATION: Pain COMPARISON: None available. TECHNIQUE: Ultrasound of the deep veins is performed from the hip to the calf with compression sonography and color and pulse Doppler assessment. Spectral analysis with color-flow imaging is performed. FINDINGS: There is normal venous compression and respiratory variation and augmented flow. The visualized common femoral vein, superficial femoral vein, profunda femoral vein, popliteal vein, and the trifurcation region shows no evidence of deep venous thrombosis. There is no significant popliteal fossa cyst. If the patient's symptoms persist, followup ultrasound in 5 days 7 days might be of value to exclude proximal propagation from a non-visualized calf vein. US/US venous duplex LE RT IMPRESSION: No DVT demonstrated in the right lower extremity.
[2023-09-30 16:59] VITALS: BP 125/76; BP 138/90; PULSE 86; PULSE 88; RESP 14; TEMP 36.4; O2SAT 100; O2SAT 98; BMI 42.8
--- NOTE | 2023-09-30 17:26 | ED_ITS ---
HPI - General Adult General Chief complaint: General Medical Stated complaint: SWOLLEN R LEG, DEVELOPMENTALLY DELAYED Time Seen by Provider: 09/30/23 17:26 History of Present Illness HPI narrative: The patient is a 53-year-old male with history of chronic schizophrenia who lives [facility] a [facility]. He also has a history of developmental delay. Patient comes to the hospital by ambulance today from his [facility] complaining of pain at the right lower leg just below the knee laterally. He says he has had pain and tenderness in this area for about a week. He denies any trauma. He denies any fever, sweats, chills. He denies any cough or sputum. He denies any shortness of breath. He also complained of some lower abdominal pain but was requesting food. The patient also said that he was feeling suicidal although he does not have any plan to kill himself. He says he is unhappy with his roommate at the pen[facility]iary. Related Data Home Medications Medication Instructions Recorded Confirmed fluticasone propionate 50 2 spray intranasal BID 11/19/22 07/29/23 mcg/actuation nasal spray,suspension divalproex 500 mg tablet,extended 1,000 mg PO BID 06/10/23 07/29/23 release 24 hr fluticasone 250 mcg-salmeterol 50 1 ea inhalation BID 06/10/23 07/29/23 mcg/dose blistr powdr for inhalation (Advair Diskus) gabapentin 100 mg capsule 200 mg PO BID 06/10/23 07/29/23 hydralazine 50 mg tablet 50 mg PO TID 06/10/23 07/29/23 risperidone 3 mg tablet 3 mg PO BID 06/10/23 07/29/23 albuterol sulfate 90 mcg/actuation 2 puff inhalation Q6H PRN Wheezing 07/29/23 07/29/23 aerosol inhaler cholecalciferol (vitamin D3) 25 25 mcg PO DAILY 07/29/23 07/29/23 mcg (1,000 unit) tablet cyanocobalamin (vitamin B-12) 1,000 mcg PO BEDTIME 07/29/23 07/29/23 1,000 mcg tablet dextran 70-hypromellose 0.1 %-0.3 1 drp ophthalmic (eye) Q4H PRN Dry 09/19/23 09/19/23 % eye drops (GenTeal Tears Mild) Eye(S) ferrous sulfate 325 mg (65 mg 325 mg PO BID 07/29/23 07/29/23 iron) tablet guaifenesin 100 mg/5 mL oral 200 mg PO Q4H PRN Cough 07/29/23 07/29/23 liquid (Siltussin SA) ondansetron 4 mg disintegrating 4 mg PO Q6H PRN Nausea And Vomiting 07/29/23 07/29/23 tablet urea 15 gram oral powder packet 1 packet PO DAILY 07/29/23 07/29/23 (Ure-Na) Previous Rx's Medication Instructions Recorded acetaminophen 325 mg tablet 650 mg (2 x 325 mg) PO Q4H PRN 06/11/22 fever or pain 90 days #180 tabs lactase 3,000 unit tablet (Lactaid) 3,000 unit PO .QD PRN lactose 10/14/22 intolerance #90 tabs blood sugar diagnostic (OneTouch #100 ea 06/17/23 Ultra Test strips) blood-glucose meter (OneTouch #1 ea 06/17/23 Ultra2 Meter) lancets 30 gauge (OneTouch #100 ea 06/17/23 UltraSoft 2 Lancet) aluminum-mag hydroxide-simethicone 5 ml PO QID PRN indigestion #100 mL 08/01/23 400 mg-400 mg-40 mg/5 mL oral susp (Mylanta Maximum Strength) bismuth subsalicylate 262 mg/15 mL 524 mg (30 mL) PO QID PRN diarrhea 08/01/23 oral suspension (Pepto-Bismol) 7 days #1,200 mL lisinopril 20 mg tablet 20 mg PO DAILY #30 tabs 08/01/23 nystatin 100,000 unit/gram topical 1 appl topical TID PRN Rash #60 08/04/23 powder grams empagliflozin 25 mg tablet 25 mg PO DAILY #30 tabs 08/18/23 (Jardiance) alvarez.stocking,knee,reg,xlrg #12 ea 08/27/23 atorvastatin 10 mg tablet 10 mg PO BEDTIME #90 tabs 09/24/23 dexlansoprazole 60 mg 60 mg PO BEDTIME #90 caps 09/24/23 capsule,biphase delayed release furosemide 20 mg tablet 20 mg PO DAILY #30 tabs 09/24/23 metformin 500 mg tablet 500 mg PO BID #180 tabs 09/24/23 propranolol 20 mg tablet 20 mg PO TID@0800,1600,2000 90 09/24/23 days #270 tabs methylcellulose (laxative) 500 mg 1,000 mg (2 x 500 mg) PO DAILY #60 09/26/23 tablet (Citrucel) tabs sennosides 8.6 mg tablet (Senna 17.2 mg (2 x 8.6 mg) PO BEDTIME 09/26/23 Lax) constipation #90 tabs Allergies Allergy/AdvReac Type Severity Reaction Status Date / Time Sulfa (Sulfonamide Allergy Severe CHAVEZ Verified 09/26/23 16:15 Antibiotics) ALICIA REACTION, Chavez Alicia trimethoprim Allergy Mild UNKNOWN Verified 09/26/23 16:15 lactose AdvReac Mild STOMACH Verified 09/26/23 16:15 UPSET Review of Systems 2 Review of Systems: Yes all other systems are reviewed and are negative PMFSH Past Medical History Medical History Leg swelling Ankle pain, left Feeling suicidal Tinea cruris Atrial flutter Atrial fib/flutter, transient A-fib Arrhythmia Abnormal EKG Contusion of left ankle Annual physical exam Abdominal pain Back pain Positive colorectal cancer screening using Cologuard test Precordial chest pain Hospital discharge follow-up Chest pain Right ankle pain Musculoskeletal chest pain Left-sided chest pain Back pain Fall Acute kidney injury Gait instability Suicidal ideation COVID-19 Hypomagnesemia Diarrhea Abdominal pain Left ankle sprain Seizure disorder Hypertension Anxiety Hyponatremia Cerebellar ataxia Anemia Lactose intolerance Vertigo Asthma Mental disability Type 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 Proteinuria Hyperlipidemia LDL goal <100 Essential hypertension Surgical History Hx of colonoscopy History of orchiectomy Family History Family History Father Myocardial infarction CVD (cardiovascular disease) Diabetes mellitus Mother Diabetes mellitus HTN (hypertension) Brother In good health Sister In good health Social History Household Members: Other Household Members Other:: from pen[facility]entiary Housing: Other Housing Other:: penitentiary Do you presently have visiting nurse or other home services: Yes Alcohol intake: current Patient Tobacco Use Status: Never used Tobacco Smoked in Last 30 Days: No e-Cigarette/Vaping Use: Never Used Second Hand Smoke Exposure: No Use of substances other than those prescribed or required for medical reasons: No Advance Directives: Yes Advance Directives on File: Yes Advance Directives Date on File: 05/23/21 service: No Current occupational status: disabled Cognitive needs: Yes (walker) Hearing needs: No Vision needs: Yes (glasses) Physical Exam ED Vital Signs: Vital Signs - 24 hr 09/30/23 16:59 09/30/23 20:07 09/30/23 21:32 Temperature 97.6 F 97.5 F 97.1 F Pulse Rate 86 73 81 Respiratory Rate 14 18 18 Blood Pressure 125/76 115/65 134/83 Pulse Oximetry 100 99 100 Oxygen Delivery Method Room Air Room Air Room Air BMI result Body Mass Index 42.8 Const Other: The patient is awake and alert. He looks chronically ill but not obviously acutely ill. HENMT Other: Face is symmetrical. Mucous membranes moist. Eyes Other: Pupils are round and equal. There is strabismus of the right eye. Neck Other: No JVD. The patient is moving his neck easily. Resp Other: Lungs are clear bilaterally. Cardio Other: The patient has a regular rate and rhythm. No murmur. GI Other: The abdomen is soft and nontender. Skin Other: There seems to be some mild soft tissue swelling on the lateral aspect of the proximal right lower leg. No erythema. Neuro Other: The patient is awake and alert. He has some strabismus of the right eye. His face is symmetrical. Speech is clear. He seems to move his extremities symmetrically. Extrem Other: Patient has tenderness to the proximal right lower leg laterally near the fibular head. This seems to be some mild soft tissue fullness in this area but there is no erythema. There is no fluctuance. There is tenderness. The posterior calf itself does not seem swollen or tender. Patient reports worsening pain when he moves the right knee. No knee swelling. No apparent knee effusion. Medications Administered Discontinued Medications Generic Name Dose Route Start Last Admin Trade Name Freq PRN Reason Stop Dose Admin Acetaminophen 975 mg 09/30/23 20:27 09/30/23 20:44 Acetaminophen 325 Mg Tablet PO 09/30/23 20:28 975 mg ONCE ONE Administration Medical Decision Making Medical Decision Making [facility] Narrative: The patient is a 53-year-old chronically ill person living at a penitentiary who is here with a complaint of right lower leg pain. He denies any injury. Physical exam suggests that he might have some bruising to the proximal lateral right lower leg but the patient adamantly denies any injury. An x-ray the lower leg is unremarkable. Ultrasound of the legs is also unremarkable. I do not have a very high suspicion for any acutely dangerous process. The patient also complained of feeling suicidal. He was seen by the Care team. We agreed that the patient's complaint of suicidality did not seem very honest. Apparently the patient often complains of suicidality and does not usually seem to require hospitalization. The patient's penitentiary was contacted and ultimately the patient was discharged. Lab Data 09/30/23 18:49 09/30/23 18:49 Labs: Lab Results 09/30/23 Range/Units 18:49 WBC 5.5 (4.8-10.8) X10*3/uL RBC 3.94 L (4.60-5.80) X10*6/uL Hgb 11.8 L (14.0-18.0) g/dl Hct 35.2 L (42.0-52.0) % MCV 89.3 (80.0-98.0) fL MCH 29.9 (27.0-33.0) pg MCHC 33.5 (31.0-36.0) g/dl RDW 12.2 (11.0-16.0) % Plt Count 118 L (160-400) X10*3/uL MPV 9.5 (9.4-12.4) fL Immature Gran % (Auto) 0.7 H (0.0-0.4) % Neut % (Auto) 59.6 (45-73) % Lymph % (Auto) 28.5 (20-40) % [place] % (Auto) 9.7 (2-11) % Eos % (Auto) 1.1 (0-4) % Baso % (Auto) 0.4 (0-2) % Lymph # (Auto) 1.6 (1.2-4.9) X10*3/uL [place] # (Auto) 0.5 (0.1-1.2) X10*3/uL Eos # (Auto) 0.1 (0.0-0.4) X10*3/uL Baso # (Auto) 0.0 (0.0-0.2) X10*3/uL Abs Immat Gran (auto) 0.04 H (0.00-0.03) X10*3/uL Absolute Neuts (auto) 3.3 (2.0-8.3) x10*3/uL Absolute Nucleated RBC 0.000 (0.0-0.012) X10*3/uL Nucleated RBC % (auto) 0.0 (0.0-0.2) /100WBC Sodium 139 (135-145) mmol/L Potassium 4.5 (3.3-5.1) mmol/L Chloride 106 (96-108) mmol/L Carbon Dioxide 28 (22-29) mmol/L Anion Gap 10 L (12-20) BUN 26 H (9-16) mg/dL Creatinine 1.26 (0.5-1.4) mg/dL Estim Creat Clear Calc 81.0 Estimated GFR > 60 Random Glucose 120 H (60-115) mg/dL Calcium 9.1 (8.4-10.2) mg/dL Total Bilirubin 0.2 (0.0-1.0) mg/dL Direct Bilirubin < 0.2 (0.0-0.5) mg/dL AST 18 (5-37) U/L ALT 14 (0-40) U/L Alkaline Phosphatase 78 (39-117) U/L C-Reactive Protein 0.39 (< or = 0.50) mg/dL Total Protein 7.0 (6.5-8.0) g/dL Albumin 3.7 (3.5-5.0) g/dL Lipase 36 (8-78) U/L Ethyl Alcohol < 10 mg/dL Discharge Plan Discharge Clinical Impression: Pain in right lower leg Patient Disposition: Home, Self-Care Additional Instructions: The x-ray of your right leg does not show any fractures. An ultrasound of your right leg does not show any blood clots. Your lab testing today is unremarkable. You may use acetaminophen (Tylenol) as needed for pain. Please rest the leg. Use an ice pack to the tender area several times a day. Please follow-up with your regular doctor. Return to the emergency room if worse. Prescriptions: No Action acetaminophen 325 mg tablet 650 mg PO Q4H PRN (Reason: fever or pain) 90 Days Qty: 180 2RF lactase [Lactaid] 3,000 unit tablet 3,000 unit PO .QD PRN (Reason: lactose intolerance) Qty: 90 3RF Rx Instructions: take at the start of drinking milk only (DME) OneTouch Ultra Test Strip See Rx Instructions .Route Qty: 100 5RF Rx Instructions: test once daily (DME) blood-glucose meter [OneTouch Ultra2 Meter] Misc See Rx Instructions .Route Qty: 1 0RF Rx Instructions: test once daily (DME) lancets [OneTouch UltraSoft 2 Lancet] 30 gauge misc See Rx Instructions .Route Qty: 100 5RF Rx Instructions: test once daily nystatin 100,000 unit/gram powder 1 appl TOPICAL TID PRN (Reason: Rash) Qty: 60 0RF (DME) alvarez.stocking,knee,reg,xlrg Misc See Rx Instructions .Route Qty: 12 0RF Rx Instructions: As directed 10-20 mm HG dexlansoprazole 60 mg capsule,biphase delayed releas 60 mg PO BEDTIME Qty: 90 1RF propranolol 20 mg tablet 20 mg PO TID@0800,1600,2000 90 Days Qty: 270 3RF atorvastatin 10 mg tablet 10 mg PO BEDTIME Qty: 90 1RF furosemide 20 mg tablet 20 mg PO DAILY Qty: 30 0RF metformin 500 mg tablet 500 mg PO BID Qty: 180 1RF fluticasone propionate 50 mcg/actuation spray,suspension 2 spray INTRANASAL BID risperidone 3 mg tablet 3 mg PO BID divalproex 500 mg tablet extended release 24 hr 1,000 mg PO BID hydralazine 50 mg tablet 50 mg PO TID gabapentin 100 mg capsule 200 mg PO BID fluticasone propion-salmeterol [Advair Diskus] 250-50 mcg/dose blister with device 1 ea inhalation BID cyanocobalamin (vitamin B-12) 1,000 mcg Tablet 1,000 mcg PO BEDTIME guaifenesin [Siltussin SA] 100 mg/5 mL Liquid 200 mg PO Q4H PRN (Reason: Cough) ferrous sulfate 325 mg (65 mg iron) Tablet 325 mg PO BID albuterol sulfate 90 mcg/actuation Hfa Aerosol Inhaler 2 puff INHALATION Q6H PRN (Reason: Wheezing) ondansetron 4 mg Tablet,Disintegrating 4 mg PO Q6H PRN (Reason: Nausea And Vomiting) cholecalciferol (vitamin D3) 25 mcg (1,000 unit) Tablet 25 mcg PO DAILY GenTeal Tears Mild 0.1-0.3 % Drops 1 drp ophthalmic (eye) Q4H PRN (Reason: Dry Eye(S)) Ure-Na 15 gram Powder In Packet 1 packet PO DAILY Jardiance 25 mg tablet 25 mg PO DAILY Qty: 30 9RF lisinopril 20 mg tablet 20 mg PO DAILY Qty: 30 3RF alum-mag hydroxide-simeth [Mylanta Maximum Strength] 400-400-40 mg/5 mL suspension 5 ml PO QID PRN (Reason: indigestion) Qty: 100 11RF bismuth subsalicylate [Pepto-Bismol] 262 mg/15 mL suspension 524 mg PO QID PRN (Reason: diarrhea) 7 Days Qty: 1200 0RF Citrucel 500 mg tablet 1,000 mg PO DAILY Qty: 60 3RF sennosides [Senna Lax] 8.6 mg tablet 17.2 mg PO BEDTIME Qty: 90 0RF Referrals: Chaparrita Townsend [Emergency Nurse] - Interventions: ED Discharge Assessment Last Done: 09/30/23 21:59 Discharge Date/Time: 09/30/23 22:00
--- NOTE | 2023-09-30 18:23 | ED.GENADULT ---
HPI - General Adult General Chief complaint: General Medical Stated complaint: SWOLLEN R LEG, DEVELOPMENTALLY DELAYED Time Seen by Provider: 09/30/23 17:26 History of Present Illness HPI narrative: The patient is a 53-year-old male with a history of multiple medical problems including schizophrenia and development delay who lives at a [facility]. He was brought to the hospital today complaining of pain in the right leg below the knee. He denies any trauma or injury. He denies any fever, sweats, chills. Denies any cough or sputum. Related Data Home Medications Medication Instructions Recorded Confirmed fluticasone propionate 50 2 spray intranasal BID 11/19/22 07/29/23 mcg/actuation nasal spray,suspension divalproex 500 mg tablet,extended 1,000 mg PO BID 06/10/23 07/29/23 release 24 hr fluticasone 250 mcg-salmeterol 50 1 ea inhalation BID 06/10/23 07/29/23 mcg/dose blistr powdr for inhalation (Advair Diskus) gabapentin 100 mg capsule 200 mg PO BID 06/10/23 07/29/23 hydralazine 50 mg tablet 50 mg PO TID 06/10/23 07/29/23 risperidone 3 mg tablet 3 mg PO BID 06/10/23 07/29/23 albuterol sulfate 90 mcg/actuation 2 puff inhalation Q6H PRN Wheezing 07/29/23 07/29/23 aerosol inhaler cholecalciferol (vitamin D3) 25 25 mcg PO DAILY 07/29/23 07/29/23 mcg (1,000 unit) tablet cyanocobalamin (vitamin B-12) 1,000 mcg PO BEDTIME 07/29/23 07/29/23 1,000 mcg tablet dextran 70-hypromellose 0.1 %-0.3 1 drp ophthalmic (eye) Q4H PRN Dry 07/29/23 07/29/23 % eye drops (GenTeal Tears Mild) Eye(S) ferrous sulfate 325 mg (65 mg 325 mg PO BID 07/29/23 07/29/23 iron) tablet guaifenesin 100 mg/5 mL oral 200 mg PO Q4H PRN Cough 07/29/23 07/29/23 liquid (Siltussin SA) ondansetron 4 mg disintegrating 4 mg PO Q6H PRN Nausea And Vomiting 07/29/23 07/29/23 tablet urea 15 gram oral powder packet 1 packet PO DAILY 07/29/23 07/29/23 (Ure-Na) Previous Rx's Medication Instructions Recorded acetaminophen 325 mg tablet 650 mg (2 x 325 mg) PO Q4H PRN 06/11/22 fever or pain 90 days #180 tabs lactase 3,000 unit tablet (Lactaid) 3,000 unit PO .QD PRN lactose 10/14/22 intolerance #90 tabs blood sugar diagnostic (OneTouch #100 ea 06/17/23 Ultra Test strips) blood-glucose meter (OneTouch #1 ea 06/17/23 Ultra2 Meter) lancets 30 gauge (OneTouch #100 ea 06/17/23 UltraSoft 2 Lancet) aluminum-mag hydroxide-simethicone 5 ml PO QID PRN indigestion #100 mL 08/01/23 400 mg-400 mg-40 mg/5 mL oral susp (Mylanta Maximum Strength) bismuth subsalicylate 262 mg/15 mL 524 mg (30 mL) PO QID PRN diarrhea 08/01/23 oral suspension (Pepto-Bismol) 7 days #1,200 mL lisinopril 20 mg tablet 20 mg PO DAILY #30 tabs 08/01/23 nystatin 100,000 unit/gram topical 1 appl topical TID PRN Rash #60 08/04/23 powder grams empagliflozin 25 mg tablet 25 mg PO DAILY #30 tabs 08/18/23 (Jardiance) alvarez.stocking,knee,reg,xlrg #12 ea 08/27/23 atorvastatin 10 mg tablet 10 mg PO BEDTIME #90 tabs 09/24/23 dexlansoprazole 60 mg 60 mg PO BEDTIME #90 caps 09/24/23 capsule,biphase delayed release furosemide 20 mg tablet 20 mg PO DAILY #30 tabs 09/24/23 metformin 500 mg tablet 500 mg PO BID #180 tabs 09/24/23 propranolol 20 mg tablet 20 mg PO TID@0800,1600,2000 90 09/24/23 days #270 tabs methylcellulose (laxative) 500 mg 1,000 mg (2 x 500 mg) PO DAILY #60 09/26/23 tablet (Citrucel) tabs sennosides 8.6 mg tablet (Senna 17.2 mg (2 x 8.6 mg) PO BEDTIME 09/26/23 Lax) constipation #90 tabs Allergies Allergy/AdvReac Type Severity Reaction Status Date / Time Sulfa (Sulfonamide Allergy Severe CHAVEZ Verified 09/26/23 16:15 Antibiotics) ALICIA REACTION, Chavez Alicia trimethoprim Allergy Mild UNKNOWN Verified 09/26/23 16:15 lactose AdvReac Mild STOMACH Verified 09/26/23 16:15 UPSET PMFSH Past Medical History Medical History Leg swelling Ankle pain, left Feeling suicidal Tinea cruris Atrial flutter Atrial fib/flutter, transient A-fib Arrhythmia Abnormal EKG Contusion of left ankle Annual physical exam Abdominal pain Back pain Positive colorectal cancer screening using Cologuard test Precordial chest pain Hospital discharge follow-up Chest pain Right ankle pain Musculoskeletal chest pain Left-sided chest pain Back pain Fall Acute kidney injury Gait instability Suicidal ideation COVID-19 Hypomagnesemia Diarrhea Abdominal pain Left ankle sprain Seizure disorder Hypertension Anxiety Hyponatremia Cerebellar ataxia Anemia Lactose intolerance Vertigo Asthma Mental disability Type 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 Proteinuria Hyperlipidemia LDL goal <100 Essential hypertension Surgical History Hx of colonoscopy History of orchiectomy Family History Family History Father Myocardial infarction CVD (cardiovascular disease) Diabetes mellitus Mother Diabetes mellitus HTN (hypertension) Brother In good health Sister In good health Social History Household Members: Other Household Members Other:: from [facility] Housing: Other Housing Other:: [facility] Do you presently have visiting nurse or other home services: Yes Alcohol intake: current Patient Tobacco Use Status: Never used Tobacco Smoked in Last 30 Days: No e-Cigarette/Vaping Use: Never Used Second Hand Smoke Exposure: No Use of substances other than those prescribed or required for medical reasons: No Advance Directives: Yes Advance Directives on File: Yes Advance Directives Date on File: 05/23/21 service: No Current occupational status: disabled Cognitive needs: Yes (walker) Hearing needs: No Vision needs: Yes (glasses) Physical Exam ED Vital Signs: Vital Signs - 24 hr 09/30/23 16:59 Temperature 97.6 F Pulse Rate 86 Respiratory Rate 14 Blood Pressure 125/76 Pulse Oximetry 100 Oxygen Delivery Method Room Air BMI result Body Mass Index 42.8 Discharge Plan Discharge Prescriptions: No Action acetaminophen 325 mg tablet 650 mg PO Q4H PRN (Reason: fever or pain) 90 Days Qty: 180 2RF lactase [Lactaid] 3,000 unit tablet 3,000 unit PO .QD PRN (Reason: lactose intolerance) Qty: 90 3RF Rx Instructions: take at the start of drinking milk only (DME) OneTouch Ultra Test Strip See Rx Instructions .Route Qty: 100 5RF Rx Instructions: test once daily (DME) blood-glucose meter [OneTouch Ultra2 Meter] Misc See Rx Instructions .Route Qty: 1 0RF Rx Instructions: test once daily (DME) lancets [VenJuvoTouch UltraSoft 2 Lancet] 30 gauge misc See Rx Instructions .Route Qty: 100 5RF Rx Instructions: test once daily nystatin 100,000 unit/gram powder 1 appl TOPICAL TID PRN (Reason: Rash) Qty: 60 0RF (DME) alvarez.stocking,knee,reg,xlrg Misc See Rx Instructions .Route Qty: 12 0RF Rx Instructions: As directed 10-20 mm HG dexlansoprazole 60 mg capsule,biphase delayed releas 60 mg PO BEDTIME Qty: 90 1RF propranolol 20 mg tablet 20 mg PO TID@0800,1600,2000 90 Days Qty: 270 3RF atorvastatin 10 mg tablet 10 mg PO BEDTIME Qty: 90 1RF furosemide 20 mg tablet 20 mg PO DAILY Qty: 30 0RF metformin 500 mg tablet 500 mg PO BID Qty: 180 1RF fluticasone propionate 50 mcg/actuation spray,suspension 2 spray INTRANASAL BID risperidone 3 mg tablet 3 mg PO BID divalproex 500 mg tablet extended release 24 hr 1,000 mg PO BID hydralazine 50 mg tablet 50 mg PO TID gabapentin 100 mg capsule 200 mg PO BID fluticasone propion-salmeterol [Advair Diskus] 250-50 mcg/dose blister with device 1 ea inhalation BID cyanocobalamin (vitamin B-12) 1,000 mcg Tablet 1,000 mcg PO BEDTIME guaifenesin [Siltussin SA] 100 mg/5 mL Liquid 200 mg PO Q4H PRN (Reason: Cough) ferrous sulfate 325 mg (65 mg iron) Tablet 325 mg PO BID albuterol sulfate 90 mcg/actuation Hfa Aerosol Inhaler 2 puff INHALATION Q6H PRN (Reason: Wheezing) ondansetron 4 mg Tablet,Disintegrating 4 mg PO Q6H PRN (Reason: Nausea And Vomiting) cholecalciferol (vitamin D3) 25 mcg (1,000 unit) Tablet 25 mcg PO DAILY GenTeal Tears Mild 0.1-0.3 % Drops 1 drp ophthalmic (eye) Q4H PRN (Reason: Dry Eye(S)) Ure-Na 15 gram Powder In Packet 1 packet PO DAILY Jardiance 25 mg tablet 25 mg PO DAILY Qty: 30 9RF lisinopril 20 mg tablet 20 mg PO DAILY Qty: 30 3RF alum-mag hydroxide-simeth [Mylanta Maximum Strength] 400-400-40 mg/5 mL suspension 5 ml PO QID PRN (Reason: indigestion) Qty: 100 11RF bismuth subsalicylate [Pepto-Bismol] 262 mg/15 mL suspension 524 mg PO QID PRN (Reason: diarrhea) 7 Days Qty: 1200 0RF Citrucel 500 mg tablet 1,000 mg PO DAILY Qty: 60 3RF sennosides [Senna Lax] 8.6 mg tablet 17.2 mg PO BEDTIME Qty: 90 0RF
[2023-09-30 18:53] LABS: MANUAL DIFF FLAG NO
[2023-09-30 18:54] LABS: Basophils Percent Auto 0.4 % (0-2); Eosinophils Absolute Auto 0.1 X10*3/uL (0.0-0.4); Eosinophils Percent Auto 1.1 % (0-4); Hematocrit 35.2 % (42.0-52.0); Hemoglobin 11.8 g/dl (14.0-18.0); Imm Gran Abs Auto 0.04 X10*3/uL (0.00-0.03); Imm Gran Pct Auto 0.7 % (0.0-0.4); Lymphocytes Absolute Auto 1.6 X10*3/uL (1.2-4.9); Lymphocytes Percent Auto 28.5 % (20-40); Mean Corpuscular HGB Conc 33.5 g/dl (31.0-36.0); Mean Corpuscular Hemoglobin 29.9 pg (27.0-33.0); Mean Corpuscular Volume 89.3 fL (80.0-98.0); Mean Platelet Volume 9.5 fL (9.4-12.4); Monocytes Absolute Auto 0.5 X10*3/uL (0.1-1.2); Monocytes Percent Auto 9.7 % (2-11); Neutrophils Absolute Auto 3.3 x10*3/uL (2.0-8.3); Neutrophils Percent Auto 59.6 % (45-73); Platelet Count 118 X10*3/uL (160-400); Red Blood Count 3.94 X10*6/uL (4.60-5.80); Red Cell Distribution Width 12.2 % (11.0-16.0); White Blood Count 5.5 X10*3/uL (4.8-10.8)
[2023-09-30 19:08] LABS: Alanine Aminotransferase 14 U/L (0-40); Albumin Level 3.7 g/dL (3.5-5.0); Alkaline Phosphatase 78 U/L (39-117); Anion Gap 10 (12-20); Aspartate Amino Transferase 18 U/L (5-37); Bilirubin Direct < 0.2 mg/dL (0.0-0.5); Bilirubin Total 0.2 mg/dL (0.0-1.0); Blood Urea Nitrogen 26 mg/dL (9-16); C Reactive Protein 0.39 mg/dL (< or = 0.50); Calcium 9.1 mg/dL (8.4-10.2); Carbon Dioxide 28 mmol/L (22-29); Chloride 106 mmol/L (96-108); Estimated Glomerular Filt Rate > 60; Glucose Random 120 mg/dL (60-115); Lipase 36 U/L (8-78); Potassium 4.5 mmol/L (3.3-5.1); Sodium 139 mmol/L (135-145)
[2023-09-30 20:07] VITALS: BP 115/65; PULSE 73; RESP 18; TEMP 36.4; O2SAT 99
--- NOTE | 2023-09-30 20:32 | MHC.EDTECH ---
Patient given sandwich and sitting in recliner
[2023-09-30] MEDS: Acetaminophen 325 MG TABLET 975 MG PO (20:44)
[2023-09-30 20:53] LABS: Ethanol < 10 mg/dL
--- NOTE | 2023-09-30 21:22 | MHC.CARE ---
Pt was brought to the ER for lower leg pain. After being seen by the Provider he expressed SI. Pt has a long history of wanting to stay at the ER or go inpatient for the secondary gain .Pt endorsed vague SI and reports his sister recently which was confirmed by his intermediate. [facility] staff is comfortable with his return and they will put in place a safety plan and provide additional one to one support as needed.
[2023-09-30 21:32] VITALS: BP 134/83; PULSE 81; RESP 18; TEMP 36.2; O2SAT 100
--- NOTE | 2023-09-30 21:32 | MHC.EDTECH ---
Took patient for walk with walker around unit
--- NOTE | 2023-09-30 21:32 | PC.NURSE ---
spoke with service net nurse and discussed plan to discharge home
== END 2023-09-30 22:00 | disposition home or self-care (01) ==
PROVIDERS: Emergency Provider Emergency Medicine
DX: R60.0 Localized edema (principal); M79.604 Pain in right leg; R45.851 Suicidal ideations; Z79.899 Other long term (current) drug therapy
CPT/HCPCS: 36415; 73590; 80048; 80076; 80307; 83690; 85025; 86140; 93971; 99284

== ENCOUNTER 2023-10-13 11:37 | Emergency (ER) | payer MEDICARE, MEDICAID, SELFPAY ==
--- NOTE | ~2023-10-13 | XR_ITS ---
EXAMINATION: XR CHEST CLINICAL INFORMATION: Cough and SOB COMPARISON: None available. TECHNIQUE: 2 views of the chest were obtained. FINDINGS: The lungs are well-expanded and clear. The heart size and pulmonary vascularity is normal. No gross bony abnormality seen. XR/XR chest 2V IMPRESSION: Unremarkable chest exam.
--- NOTE | 2023-10-13 11:49 | ED.GENADULT ---
HPI - General Adult General Chief complaint: General Medical Stated complaint: COUGH,DIZZY,DIARRHEA X2WKS FROM [facility] PER EMS Time Seen by Provider: 10/13/23 11:46 Source: patient, EMS, RN notes reviewed and old records reviewed Mode of arrival: EMS History of Present Illness HPI narrative: 53-year-old male with past medical history of chronic schizophrenia, developmental delay, AFib/flutter, seizure disorder, anxiety, anemia, asthma, HLD, HTN, presenting to ED from detention complaining of loose nonbloody diarrhea x2 weeks. Patient recently saw GI on 09/26/2023 who increased his Citrucel & Senna to 2 tablets in the morning (double previous dose). Patient also reports cough, SOB, lightheadedness, and periumbilical abdominal pain. Denies fever/chills, nausea/vomiting, dysuria/hematuria Onset (ago): week(s) Related Data Home Medications Medication Instructions Recorded Confirmed fluticasone propionate 50 2 spray intranasal BID 11/19/22 10/13/23 mcg/actuation nasal spray,suspension divalproex 500 mg tablet,extended 1,000 mg PO BID 06/10/23 10/13/23 release 24 hr fluticasone 250 mcg-salmeterol 50 1 ea inhalation BID 06/10/23 10/13/23 mcg/dose blistr powdr for inhalation (Advair Diskus) gabapentin 100 mg capsule 200 mg PO BID 06/10/23 10/13/23 hydralazine 50 mg tablet 50 mg PO TID 06/10/23 10/13/23 risperidone 3 mg tablet 3 mg PO BID 06/10/23 10/13/23 albuterol sulfate 90 mcg/actuation 2 puff inhalation Q6H PRN Wheezing 07/29/23 10/13/23 aerosol inhaler cholecalciferol (vitamin D3) 25 25 mcg PO DAILY 07/29/23 10/13/23 mcg (1,000 unit) tablet cyanocobalamin (vitamin B-12) 1,000 mcg PO BEDTIME 07/29/23 10/13/23 1,000 mcg tablet dextran 70-hypromellose 0.1 %-0.3 1 drp ophthalmic (eye) Q4H PRN Dry 07/29/23 10/13/23 % eye drops (GenTeal Tears Mild) Eye(S) ferrous sulfate 325 mg (65 mg 325 mg PO BID 07/29/23 10/13/23 iron) tablet guaifenesin 100 mg/5 mL oral 200 mg PO Q4H PRN Cough 07/29/23 10/13/23 liquid (Siltussin SA) ondansetron 4 mg disintegrating 4 mg PO Q6H PRN Nausea And Vomiting 07/29/23 10/13/23 tablet urea 15 gram oral powder packet 1 packet PO DAILY 07/29/23 10/13/23 (Ure-Na) hydroxyzine pamoate 50 mg capsule 50 mg PO DAILY PRN 10/13/23 10/13/23 AGITATION/ANXIETY lactase 3,000 unit tablet (Lactaid) 3,000 unit PO TIDWM PRN Lactose 10/13/23 10/13/23 Intolerance neomycin-bacitracn Zn-polymyxn 3.5 1 appl topical BID 10/13/23 10/13/23 mg-400 unit-5,000 unit top oint pkt (Triple Antibiotic) Previous Rx's Medication Instructions Recorded acetaminophen 325 mg tablet 650 mg (2 x 325 mg) PO Q4H PRN 06/11/22 fever or pain 90 days #180 tabs blood sugar diagnostic (OneTouch #100 ea 06/17/23 Ultra Test strips) blood-glucose meter (OneTouch #1 ea 06/17/23 Ultra2 Meter) lancets 30 gauge (OneTouch #100 ea 06/17/23 UltraSoft 2 Lancet) aluminum-mag hydroxide-simethicone 5 ml PO QID PRN indigestion #100 mL 08/01/23 400 mg-400 mg-40 mg/5 mL oral susp (Mylanta Maximum Strength) bismuth subsalicylate 262 mg/15 mL 524 mg (30 mL) PO QID PRN diarrhea 08/01/23 oral suspension (Pepto-Bismol) 7 days #1,200 mL lisinopril 20 mg tablet 20 mg PO DAILY #30 tabs 08/01/23 nystatin 100,000 unit/gram topical 1 appl topical TID PRN Rash #60 08/04/23 powder grams empagliflozin 25 mg tablet 25 mg PO DAILY #30 tabs 08/18/23 (Jardiance) alvarez.stocking,knee,reg,xlrg #12 ea 08/27/23 atorvastatin 10 mg tablet 10 mg PO BEDTIME #90 tabs 09/24/23 dexlansoprazole 60 mg 60 mg PO BEDTIME #90 caps 09/24/23 capsule,biphase delayed release furosemide 20 mg tablet 20 mg PO DAILY #30 tabs 09/24/23 metformin 500 mg tablet 500 mg PO BID #180 tabs 09/24/23 propranolol 20 mg tablet 20 mg PO TID@0800,1600,2000 90 09/24/23 days #270 tabs methylcellulose (laxative) 500 mg 1,000 mg (2 x 500 mg) PO DAILY #60 09/26/23 tablet (Citrucel) tabs sennosides 8.6 mg tablet (Senna 17.2 mg (2 x 8.6 mg) PO BEDTIME 09/26/23 Lax) constipation #90 tabs Allergies Allergy/AdvReac Type Severity Reaction Status Date / Time Sulfa (Sulfonamide Allergy Severe CHAVEZ Verified 09/26/23 16:15 Antibiotics) DWIGHT REACTION, Chavez Dwight trimethoprim Allergy Mild UNKNOWN Verified 09/26/23 16:15 lactose AdvReac Mild STOMACH Verified 09/26/23 16:15 UPSET Review of Systems Review of Systems: Constitutional:No Fever, No Chills ENT/Mouth: No Ear Pain, No Nasal Congestion, No Sinus Pain, No Hoarseness, No sore throat, No Rhinorrhea, No Swallowing Difficulty Cardiovascular: No Chest Pain, No SOB Respiratory: + Cough, No Sputum, No Wheezing Gastrointestinal: No Nausea, No Vomiting, + Diarrhea, No Constipation, + Abdominal pain Genitourinary: No Dysuria, No Urinary Frequency, No Hematuria, No Urinary Incontinence/retention, No Flank Pain Musculoskeletal: No joint pain, No Myalgias, No Joint Swelling Skin: No Skin Lesions, No rash Neuro: No Weakness, No Numbness, No Paresthesias, +lightheaded Yes all other systems are reviewed and are negative Constitutional: Constitutional: Reports as per [facility] Past Medical History Attestation statement: The following information was validated with the patient. Source: old records reviewed Medical History Leg swelling Ankle pain, left Feeling suicidal Tinea cruris Atrial flutter Atrial fib/flutter, transient A-fib Arrhythmia Abnormal EKG Contusion of left ankle Annual physical exam Abdominal pain Back pain Positive colorectal cancer screening using Cologuard test Precordial chest pain Hospital discharge follow-up Chest pain Right ankle pain Musculoskeletal chest pain Left-sided chest pain Back pain Fall Acute kidney injury Gait instability Suicidal ideation COVID-19 Hypomagnesemia Diarrhea Abdominal pain Left ankle sprain Seizure disorder Hypertension Anxiety Hyponatremia Cerebellar ataxia Anemia Lactose intolerance Vertigo Asthma Mental disability Type 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 Proteinuria Hyperlipidemia LDL goal <100 Essential hypertension Surgical History Hx of colonoscopy History of orchiectomy Family History Family History Father Myocardial infarction CVD (cardiovascular disease) Diabetes mellitus Mother Diabetes mellitus HTN (hypertension) Brother In good health Sister In good health Social History Social History Household Members: Other Household Members Other:: from detention Housing: Other Housing Other:: detention Do you presently have visiting nurse or other home services: Yes Alcohol intake: never 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 Patient Tobacco Use Status: Never used Tobacco Smoked in Last 30 Days: No e-Cigarette/Vaping Use: Never Used Second Hand Smoke Exposure: No Advance Directives: Yes Advance Directives on File: Yes Advance Directives Date on File: 05/23/21 service: No Current occupational status: disabled Cognitive needs: Yes (walker) Hearing needs: No Vision needs: Yes (glasses) Physical Exam ED Vital Signs: Vital Signs - 24 hr 10/13/23 11:50 10/13/23 14:08 10/13/23 17:21 Temperature 97.0 F 98.4 F 97.8 F Pulse Rate 81 77 83 Respiratory Rate 18 16 16 Blood Pressure 136/72 138/82 131/89 Pulse Oximetry 94 96 96 Oxygen Delivery Method Room Air Room Air Room Air BMI result Body Mass Index 45.8 Const General: cooperative, healthy appearing and no acute distress Orientation/consciousness: patient oriented x3 Limitations: no limitations HENMT Head: Yes normal to inspection and Yes atraumatic Ears: hearing grossly normal bilaterally General nose exam: Normal external nose present Face and sinus: Yes normal facial exam Eyes General: appearance normal, both eyes and all related structures EOM: EOMs intact bilaterally Neck Neck: Yes normal visual inspection and Yes no meningeal signs Resp Effort & Inspection: normal respiratory effort and no respiratory distress Auscultation: clear to auscultation bilaterally, no rales, no rhonchi and no wheezes Cardio Rate: regular rate Heart sounds: S1 normal heart sound present and S2 normal heart sound present GI Inspection: Yes normal to inspection Palpation (GI): Soft to palpation, nontender, no guarding and not rigid General: Yes no CVA tenderness Back/Spine/Pelvis Back: no CVA tenderness Skin Rashes: no rashes Wounds: no wounds Neuro General: patient oriented x3, tone normal, moves all extremities, no meningeal signs and no focal motor deficits Cranial nerves: Yes CN's II-XII intact bilaterally Gait exam (Neuro): Normal gait present Extrem General: Yes normal to inspection Course Course Course Narrative: -1340--no leukocytosis. H&H at patient's baseline. + FERDINAND with BUN of 30, creatinine of 1.91 > likely from fluid losses/volume depletion > 1.5L IVF ordered & will repeat chemistry -RSV positive -1430--ED care transferred to [facility] pending repeat Chem 7 after IVF & anticipated discharge Reevaluation(s) Reevaluation #1: Repeat chemistries with renal function trending down, notable improvement with BUN 27 creatinine 1.64. I suspect that this is secondary to volume loss in the setting of profuse diarrhea with excessive laxatives. Again reiterated to patient and provided in discharge information discontinued use of laxatives and encouragement of oral fluids. At this time feel that he is stable for discharge. Reviewed with case with ED attending Dr. Scott who agrees. Time: 17:44 Medications Administered Discontinued Medications Generic Name Dose Route Start Last Admin Trade Name Freq PRN Reason Stop Dose Admin Sodium Chloride 1,000 mls @ 999 mls/hr 10/13/23 13:45 10/13/23 15:30 Ns IV 10/13/23 14:45 Infused .Q1H1M PILO Infusion Sodium Chloride 500 mls @ 999 mls/hr 10/13/23 13:45 10/13/23 15:30 Ns IV 10/13/23 14:15 Infused .Q31M PILO Infusion Medical Decision Making Medical Decision Making [facility] Narrative: 53-year-old male with past medical history of chronic schizophrenia, developmental delay, AFib/flutter, seizure disorder, anxiety, anemia, asthma, HLD, HTN, presenting to ED from detention complaining of loose nonbloody diarrhea x2 weeks. Patient also reports cough, SOB, lightheadedness, and periumbilical abdominal pain. On exam vital signs stable, NAD, nontoxic appearing, abdomen soft/nontender, lungs CTA. Concern for diarrhea secondary to recent medication changes vs gastroenteritis vs viral syndrome. Rule out metabolic/infectious etiologies. Low suspicion for severe sepsis. Unlikely appendicitis/diverticulitis or cholecystitis/lithiasis without tenderness on exam. Lower suspicion for ACS Plan: EKG, labs, UA, viral testing, CXR, stool studies Please refer to course for remaining clinical decision making, interpretation of labs/imaging results, and discussions with consultants and/or family members. Differential Diagnosis Differential Diagnoses: The differential diagnosis associated with the presentation includes As above Admission/Observation Consideration of admission/observation: Escalation of care including admission/observation considered Lab Data MDM Lab Attestation statement: I reviewed the patient's lab results. 10/13/23 12:29 10/13/23 16:43 Labs: Lab Results 10/13/23 10/13/23 Range/Units 12:29 16:43 WBC 5.6 (4.8-10.8) X10*3/uL RBC 4.02 L (4.60-5.80) X10*6/uL Hgb 12.0 L (14.0-18.0) g/dl Hct 37.3 L (42.0-52.0) % MCV 92.8 (80.0-98.0) fL MCH 29.9 (27.0-33.0) pg MCHC 32.2 (31.0-36.0) g/dl RDW 12.3 (11.0-16.0) % Plt Count 115 L (160-400) X10*3/uL MPV 10.0 (9.4-12.4) fL Immature Gran % (Auto) 1.3 H (0.0-0.4) % Neut % (Auto) 64.5 (45-73) % Lymph % (Auto) 15.6 L (20-40) % Charlton % (Auto) 17.2 H (2-11) % Eos % (Auto) 0.9 (0-4) % Baso % (Auto) 0.5 (0-2) % Lymph # (Auto) 0.9 L (1.2-4.9) X10*3/uL Charlton # (Auto) 1.0 (0.1-1.2) X10*3/uL Eos # (Auto) 0.1 (0.0-0.4) X10*3/uL Baso # (Auto) 0.0 (0.0-0.2) X10*3/uL Abs Immat Gran (auto) 0.07 H (0.00-0.03) X10*3/uL Absolute Neuts (auto) 3.6 (2.0-8.3) x10*3/uL Absolute Nucleated RBC 0.000 (0.0-0.012) X10*3/uL Nucleated RBC % (auto) 0.0 (0.0-0.2) /100WBC Sodium 141 142 (135-145) mmol/L Potassium 4.8 5.1 (3.3-5.1) mmol/L Chloride 105 111 H (96-108) mmol/L Carbon Dioxide 25 22 (22-29) mmol/L Anion Gap 16 14 (12-20) BUN 30 H 27 H (9-16) mg/dL Creatinine 1.91 H 1.64 H (0.5-1.4) mg/dL Estim Creat Clear Calc 55.5 64.6 Estimated GFR 37 44 Random Glucose 220 H 118 H (60-115) mg/dL Calcium 9.3 8.6 D (8.4-10.2) mg/dL Magnesium 1.9 (1.6-2.6) mg/dL Total Bilirubin 0.3 (0.0-1.0) mg/dL Direct Bilirubin 0.1 (0.0-0.5) mg/dL AST 15 (5-37) U/L ALT 13 (0-40) U/L Alkaline Phosphatase 68 (39-117) U/L Total Protein 7.0 (6.5-8.0) g/dL Albumin 3.6 (3.5-5.0) g/dL Lipase 31 (8-78) U/L Influenza Type A (PCR) NEGATIVE (Negative) Influenza Type B (PCR) NEGATIVE (Negative) RSV RNA Qual (PCR) POSITIVE A (Negative) SARS-CoV-2 RNA (RT-PCR) NEGATIVE (Negative) Independent Interpretation I performed an independent interpretation of an: EKG and Plain X-Ray Radiology Impression Discussion of test interpretation with radiology: I have reviewed the radiologist's reading. External Record Review External record reviewed: Inpatient record, Office record, Outpatient record, Prior outpatient labs, Prior outpatient radiology, Primary care record and Outside ED record Tests considered The following testing was considered but not selected: As above Chronic Conditions Patient?s care impacted by: Other Discharge Plan Discharge Clinical Impression: Respiratory syncytial virus (RSV), FERDINAND (acute kidney injury), Diarrhea Patient Disposition: Home, Self-Care Additional Instructions: You have RSV, you are contagious. Wash her hands, cover your mouth You are very dehydrated. please drink plenty of fluids. Your kidneys were hurting. Please stop taking Senna and Citrucel until your diarrhea resolves and call your GI doctor No antibiotics are indicated at this time rest Alternate Tylenol and Motrin at home as needed for body aches and fever Follow-up with your doctor. If symptoms persist or worsen return to the emergency department Your unable to eat or drink since developed bloody or black stool or persistent non remitting diarrhea return to the ED *If you are a child & not tolerating liquid or urinating for more than 6 hours, or fevers are uncontrolled with medications at home, return to the emergency department* Prescriptions: No Action acetaminophen 325 mg tablet 650 mg PO Q4H PRN (Reason: fever or pain) 90 Days Qty: 180 2RF (DME) OneTouch Ultra Test Strip See Rx Instructions .Route Qty: 100 5RF Rx Instructions: test once daily (DME) blood-glucose meter [OneTouch Ultra2 Meter] Misc See Rx Instructions .Route Qty: 1 0RF Rx Instructions: test once daily (DME) lancets [OneTouch UltraSoft 2 Lancet] 30 gauge misc See Rx Instructions .Route Qty: 100 5RF Rx Instructions: test once daily nystatin 100,000 unit/gram powder 1 appl TOPICAL TID PRN (Reason: Rash) Qty: 60 0RF (DME) alvarez.stocking,knee,reg,xlrg Misc See Rx Instructions .Route Qty: 12 0RF Rx Instructions: As directed 10-20 mm HG dexlansoprazole 60 mg capsule,biphase delayed releas 60 mg PO BEDTIME Qty: 90 1RF propranolol 20 mg tablet 20 mg PO TID@0800,1600,2000 90 Days Qty: 270 3RF atorvastatin 10 mg tablet 10 mg PO BEDTIME Qty: 90 1RF furosemide 20 mg tablet 20 mg PO DAILY Qty: 30 0RF metformin 500 mg tablet 500 mg PO BID Qty: 180 1RF fluticasone propionate 50 mcg/actuation spray,suspension 2 spray INTRANASAL BID hydroxyzine pamoate 50 mg capsule 50 mg PO DAILY PRN (Reason: AGITATION/ANXIETY) lactase [Lactaid] 3,000 unit tablet 3,000 unit PO TIDWM PRN (Reason: Lactose Intolerance) Rx Instructions: take at the start of drinking milk only Triple Antibiotic 3.5-400-5,000 [id number] Ointment In Packet 1 appl TOPICAL BID risperidone 3 mg tablet 3 mg PO BID divalproex 500 mg tablet extended release 24 hr 1,000 mg PO BID hydralazine 50 mg tablet 50 mg PO TID gabapentin 100 mg capsule 200 mg PO BID fluticasone propion-salmeterol [Advair Diskus] 250-50 mcg/dose blister with device 1 ea inhalation BID cyanocobalamin (vitamin B-12) 1,000 mcg Tablet 1,000 mcg PO BEDTIME guaifenesin [Siltussin SA] 100 mg/5 mL Liquid 200 mg PO Q4H PRN (Reason: Cough) ferrous sulfate 325 mg (65 mg iron) Tablet 325 mg PO BID albuterol sulfate 90 mcg/actuation Hfa Aerosol Inhaler 2 puff INHALATION Q6H PRN (Reason: Wheezing) ondansetron 4 mg Tablet,Disintegrating 4 mg PO Q6H PRN (Reason: Nausea And Vomiting) cholecalciferol (vitamin D3) 25 mcg (1,000 unit) Tablet 25 mcg PO DAILY GenTeal Tears Mild 0.1-0.3 % Drops 1 drp ophthalmic (eye) Q4H PRN (Reason: Dry Eye(S)) Ure-Na 15 gram Powder In Packet 1 packet PO DAILY Jardiance 25 mg tablet 25 mg PO DAILY Qty: 30 9RF lisinopril 20 mg tablet 20 mg PO DAILY Qty: 30 3RF alum-mag hydroxide-simeth [Mylanta Maximum Strength] 400-400-40 mg/5 mL suspension 5 ml PO QID PRN (Reason: indigestion) Qty: 100 11RF bismuth subsalicylate [Pepto-Bismol] 262 mg/15 mL suspension 524 mg PO QID PRN (Reason: diarrhea) 7 Days Qty: 1200 0RF Citrucel 500 mg tablet 1,000 mg PO DAILY Qty: 60 3RF sennosides [Senna Lax] 8.6 mg tablet 17.2 mg PO BEDTIME Qty: 90 0RF [place] [facility] [place] [facility] [place] Group] Physician,Unknown J [Primary Care Provider] -
[2023-10-13 11:50] VITALS: BP 136/72; BP 140/84; PULSE 81; PULSE 85; RESP 18; TEMP 36.1; O2SAT 94; O2SAT 96; BMI 45.8
--- NOTE | 2023-10-13 12:04 | ECG_ITS ---
Test Reason : SOB Blood Pressure : / mmHG Vent. Rate : 080 BPM Atrial Rate : 080 BPM P-R Int : 188 ms QRS Dur : 088 ms QT Int : 384 ms P-R-T Axes : 073 -06 039 degrees QTc Int : 442 ms Normal sinus rhythm Normal ECG When compared with ECG of 09-AUG-2023 14:55, Minimal criteria for Inferior infarct are no longer Present Referred By: Nava Romero Electronically Signed By:AP MONTGOMERY
[2023-10-13 12:32] LABS: MANUAL DIFF FLAG NO
[2023-10-13 12:44] LABS: Basophils Percent Auto 0.5 % (0-2); Eosinophils Absolute Auto 0.1 X10*3/uL (0.0-0.4); Eosinophils Percent Auto 0.9 % (0-4); Hematocrit 37.3 % (42.0-52.0); Imm Gran Abs Auto 0.07 X10*3/uL (0.00-0.03); Imm Gran Pct Auto 1.3 % (0.0-0.4); Lymphocytes Absolute Auto 0.9 X10*3/uL (1.2-4.9); Lymphocytes Percent Auto 15.6 % (20-40); Mean Corpuscular HGB Conc 32.2 g/dl (31.0-36.0); Mean Corpuscular Hemoglobin 29.9 pg (27.0-33.0); Mean Corpuscular Volume 92.8 fL (80.0-98.0); Monocytes Percent Auto 17.2 % (2-11); Neutrophils Absolute Auto 3.6 x10*3/uL (2.0-8.3); Neutrophils Percent Auto 64.5 % (45-73); Platelet Count 115 X10*3/uL (160-400); Red Blood Count 4.02 X10*6/uL (4.60-5.80); Red Cell Distribution Width 12.3 % (11.0-16.0); White Blood Count 5.6 X10*3/uL (4.8-10.8)
[2023-10-13 12:49] LABS: Alanine Aminotransferase 13 U/L (0-40); Albumin Level 3.6 g/dL (3.5-5.0); Alkaline Phosphatase 68 U/L (39-117); Anion Gap 16 (12-20); Aspartate Amino Transferase 15 U/L (5-37); Bilirubin Direct 0.1 mg/dL (0.0-0.5); Bilirubin Total 0.3 mg/dL (0.0-1.0); Blood Urea Nitrogen 30 mg/dL (9-16); Calcium 9.3 mg/dL (8.4-10.2); Carbon Dioxide 25 mmol/L (22-29); Chloride 105 mmol/L (96-108); Creatinine Clr Calc Pharmacy 55.5; Estimated Glomerular Filt Rate 37; Glucose Random 220 mg/dL (60-115); Lipase 31 U/L (8-78); Magnesium 1.9 mg/dL (1.6-2.6); Potassium 4.8 mmol/L (3.3-5.1); Sodium 141 mmol/L (135-145)
--- NOTE | 2023-10-13 13:06 | PHA.MEDREC ---
Pharmacy Consult ? Medication Reconciliation Pharmacy has completed the medication reconciliation. PHARMACY HAS COMPLETED MED REC USING LIST PROVIDED BY HCP.
[2023-10-13 13:10] LABS: Influenza A PCR NEGATIVE (Negative); Influenza B PCR NEGATIVE (Negative); Resp Syncy Virus RNA Qual PCR POSITIVE (Negative); SARS COV2 PCR INHOUSE NEGATIVE (Negative)
[2023-10-13] MEDS: 0.9 % Sodium Chloride 1,000 ML 999 ML IV (13:59)
[2023-10-13] MEDS: 0.9 % Sodium Chloride 500 ML 999 ML IV (14:00)
--- NOTE | 2023-10-13 14:00 | PC.NURSE ---
iv inserted, ivf hung per order, will continue to monitor
[2023-10-13 14:08] VITALS: BP 138/82; PULSE 77; RESP 16; TEMP 36.9; O2SAT 96
[2023-10-13 17:06] LABS: Anion Gap 14 (12-20); Blood Urea Nitrogen 27 mg/dL (9-16); Calcium 8.6 mg/dL (8.4-10.2); Carbon Dioxide 22 mmol/L (22-29); Chloride 111 mmol/L (96-108); Creatinine Clr Calc Pharmacy 64.6; Estimated Glomerular Filt Rate 44; Glucose Random 118 mg/dL (60-115); Potassium 5.1 mmol/L (3.3-5.1); Sodium 142 mmol/L (135-145)
[2023-10-13 17:21] VITALS: BP 131/89; PULSE 83; RESP 16; TEMP 36.6; O2SAT 96
--- NOTE | 2023-10-13 17:22 | PC.NURSE ---
patient a&ox3, vss, pt currently has no complaints, labs had been redrawn, pt awaiting provider, will continue to monitor
== END 2023-10-13 20:12 | disposition home or self-care (01) ==
PROVIDERS: Physician Assistant; Emergency Provider Emergency Medicine
DX: J22 Unspecified acute lower respiratory infection (principal); B97.4 Respiratory syncytial virus as the cause of diseases classified elsewhere; R05.9 Cough, unspecified; R42 Dizziness and giddiness; R19.7 Diarrhea, unspecified; R30.0 Dysuria; Z20.822 Contact with and (suspected) exposure to COVID-19; Z20.828 Contact with and (suspected) exposure to other viral communicable diseases; Z79.899 Other long term (current) drug therapy
CPT/HCPCS: 0241U; 36415; 71046; 80048; 80076; 83690; 83735; 85025; 93005; 96360; 96361; 99284; 99285

== ENCOUNTER → 2023-10-13 12:04 | Outpatient (BNV) | payer MEDICARE, MEDICAID, SELFPAY | PROVIDERS: Emergency Provider Emergency Medicine; Visit Provider Internal Medicine | DX: R06.02 Shortness of breath (principal) | CPT/HCPCS: 93010 ==

== ENCOUNTER 2023-10-22 13:52 | Outpatient (REF) | payer MEDICARE, MEDICAID, SELFPAY ==
[2023-10-22 16:42] LABS: Hematocrit 38.1 % (42.0-52.0); Immature Retic Fraction 23.7 % (2.3-13.4); Mean Corpuscular HGB Conc 31.5 g/dl (31.0-36.0); Mean Corpuscular Hemoglobin 29.6 pg (27.0-33.0); Mean Corpuscular Volume 94.1 fL (80.0-98.0); Mean Platelet Volume 9.8 fL (9.4-12.4); Platelet Count 172 X10*3/uL (160-400); Red Blood Count 4.05 X10*6/uL (4.60-5.80); Red Cell Distribution Width 12.3 % (11.0-16.0); Retic HGB Equivalent 35.7 pg (30.0-35.0); Reticulocyte Percent 1.7 % (0.5-1.8); Reticulocytes Absolute 0.068 X10*6/uL (0.026-0.095); White Blood Count 6.9 X10*3/uL (4.8-10.8)
[2023-10-22 16:57] LABS: Uric Acid 9.5 mg/dL (3.4-7.0)
[2023-10-22 16:58] LABS: Alanine Aminotransferase 23 U/L (0-40); Albumin Level 3.6 g/dL (3.5-5.0); Alkaline Phosphatase 72 U/L (39-117); Anion Gap 13 (12-20); Aspartate Amino Transferase 24 U/L (5-37); Bilirubin Total 0.3 mg/dL (0.0-1.0); Blood Urea Nitrogen 19 mg/dL (9-16); Calcium 9.1 mg/dL (8.4-10.2); Carbon Dioxide 25 mmol/L (22-29); Chloride 105 mmol/L (96-108); Cholesterol 144 mg/dL (<200); Estimated Glomerular Filt Rate 47; Glucose Random 172 mg/dL (60-115); HDL Cholesterol 30 mg/dL (>40); Iron 64 mcg/dL (45-160); LDL Cholesterol Calculated 70 mg/dL (<100); Percent Iron Saturation 30 % (15-50); Potassium 4.9 mmol/L (3.3-5.1); Sodium 138 mmol/L (135-145); Total Iron Binding Capacity 210 mcg/dL (228-428); Total Protein 7.1 g/dL (6.5-8.0); Triglycerides 221 mg/dL (<150); Unsaturated Iron Binding 146 ug/dL
[2023-10-22 17:13] LABS: Vitamin D 25-OH Total 52.1 ng/mL (>30)
[2023-10-22 17:17] LABS: Ferritin 202 ng/mL (20-250); Free T4 (Free Thyroxine) 1.06 ng/dL (0.71-1.85); Thyroid Stimulating Hormone 1.56 uIU/mL (0.32-4.0)
[2023-10-22 17:20] LABS: Band Neutrophils Percent 2 % (3-5); Basophils Abs Manual 0.1 X10*3/uL (0.0-0.2); Basophils Percent Manual 1 % (0-2); Lymphocytes Percent Manual 29 % (20-40); Monocytes Absolute Manual 0.5 X10*3/uL (0.1-1.2); Monocytes Percent Manual 7 % (2-11); Neutrophils Absolute Manual 4.3 X10*3/uL (2.0-8.3); Neutrophils Percent Manual 61 % (45-73)
[2023-10-22 17:22] LABS: Platelet Estimate NORMAL (NORMAL)
[2023-10-22 17:24] LABS: Burr Cells 1+ (0-2) /OIF; RBC Morphology NOTED
[2023-10-22 17:25] LABS: Microcytosis 1+ (5-14) /OIF
[2023-10-22 17:26] LABS: Platelet Morphology Comment NORM
[2023-10-22 17:28] LABS: Folate 7.8 ng/mL (> or = 4.0); Prostate Specific Antigen Scr 0.68 ng/mL (<0.05-4.0); Vitamin B12 1978 pg/mL (200-900)
[2023-10-22 17:32] LABS: B Type Natriuretic Peptide 39 pg/mL (<100)
[2023-10-22 17:36] LABS: Parathyroid Hormone Intact 134.8 pg/mL (8.7-77.1)
[2023-10-22 17:42] LABS: Appearance Urine Clear; Color Urine Yellow; Glucose Urine UA >=1000 mg/dL (Negative); Leukocyte Esterase Urine Negative (Negative); Nitrite Urine Negative (Negative); UMIC TRIGGER UA YES; Urine Blood Negative (Negative); Urine Ketones Negative (Negative); Urine Protein Negative (Neg-Trace)
[2023-10-22 17:54] LABS: Bacteria Urine None Seen (None Seen); Hyaline Casts Urine 0-2 /LPF (0-2); RBC Urine 0-2 /HPF (0-2); Squamous Epithelial Cell Urine 0-2 /HPF (0-2); WBC Urine 0-5 /HPF (0-5)
[2023-10-22 19:16] LABS: Creatinine Urine 43.47 mg/dL
[2023-10-22 19:17] LABS: Creatinine Urine 43.67 mg/dL; Microalbum/Creatinine Ratio Ur 20.6 ug/mg cr (<30)
== END 2023-10-22 13:53 | disposition home or self-care (01) ==
LOC: HO.HMGCLDS 13:52
PROVIDERS: Absent Provider Internal Medicine; PCP Internal Medicine; Visit Provider Internal Medicine
DX: Z12.5 Encounter for screening for malignant neoplasm of prostate (principal); I10 Essential (primary) hypertension; N28.9 Disorder of kidney and ureter, unspecified; E78.5 Hyperlipidemia, unspecified; M79.89 Other specified soft tissue disorders; E11.65 Type 2 diabetes mellitus with hyperglycemia; E78.00 Pure hypercholesterolemia, unspecified
CPT/HCPCS: 36415; 80053; 80061; 81001; 82043; 82306; 82570; 82607; 82728; 82746; 83540; 83880; 83970; 84153; 84439; 84443; 84550; 85007; 85027; 85045

== ENCOUNTER 2023-11-14 16:03 | Outpatient (AMB) | payer MEDICARE, MEDICAID, SELFPAY ==
[2023-11-14 16:10] VITALS: BP 132/70; PULSE 74; O2SAT 96; BMI 42.5
--- NOTE | 2023-11-14 16:10 | MHC.PC.OV ---
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 Allergies Sulfa (Sulfonamide Antibiotics) Allergy (Severe, Verified 11/14/23 16:10) LANDEROS ALICIA REACTION, Landeros Alicia trimethoprim Allergy (Mild, Verified 11/14/23 16:10) UNKNOWN lactose Adverse Reaction (Mild, Verified 11/14/23 16:10) STOMACH UPSET Medication List - Last Reconciled 11/14/23 by Robert Sumner, acetaminophen 650 mg (2 x 325 mg) PO Q4H PRN 90 days albuterol sulfate 90 mcg/actuation 2 puffs inhalation Q6H PRN alum-mag hydroxide-simeth 400-400-40 mg/5 mL (Mylanta Maximum Strength) 5 mL PO QID PRN atorvastatin 10 mg PO BEDTIME bismuth subsalicylate (Pepto-Bismol) 524 mg (30 mL) PO QID PRN 7 days blood sugar diagnostic (OneTouch Ultra Test strips) test once daily blood-glucose meter (OneTouch Ultra2 Meter) test once daily cholecalciferol (vitamin D3) 25 mcg PO DAILY [email or web address],xlrg As directed 10-20 mm HG cyanocobalamin (vitamin B-12) 1,000 mcg PO BEDTIME dexlansoprazole 60 mg PO BEDTIME dextran 70-hypromellose 0.1-0.3 % (GenTeal Tears Mild) 1 drp ophthalmic (eye) Q4H PRN dextromethorphan polistirex ER (Delsym 12 hour) 10 mL PO Q12H PRN divalproex ER 1,000 mg PO BID empagliflozin (Jardiance) 25 mg PO DAILY ferrous sulfate 325 mg PO BID fluticasone propion-salmeterol 250-50 mcg/dose (Advair Diskus) 1 ea inhalation BID fluticasone propionate 50 mcg/actuation 2 sprays intranasal BID furosemide 20 mg PO DAILY gabapentin 200 mg PO BID guaifenesin (Siltussin SA) 200 mg PO Q4H PRN hydralazine 50 mg PO TID hydroxyzine pamoate 50 mg PO DAILY PRN lactase (Lactaid) 3,000 units PO TIDWM PRN Lactobacillus rhamnosus GG (Culturelle) 1 cap PO BID 7 days lancets (OneTouch UltraSoft 2 Lancet) test once daily lisinopril 20 mg PO DAILY loperamide (Imodium A-D) 2 mg PO TID PRN loperamide (Imodium A-D) 2 mg PO TID PRN metformin 500 mg PO BID dkbjryrs-imktyuzciSf-lmwpuixzG 3.5-400-5,000 al-nglh-qoua (Triple Antibiotic) 1 appl topical BID nystatin 1 appl topical TID PRN ondansetron 4 mg PO Q6H PRN propranolol 20 mg PO TID@0800,1600,2000 90 days risperidone 3 mg PO BID tirzepatide (Mounjaro) 2.5 mg (0.5 mL) subcut QWEEK 4 weeks urea (Ure-Na) 1 packet PO DAILY Tobacco use date assessed: 11/14/23 HPI 3 Months F/U -DM HPI Details 53-year-old obese male with mental behavior problem having diabetes mellitus hypertension coming in for follow-up. Last seen in August 2023 patient is up-to-date with colonoscopy. ER visit 10/29/2023 abdominal pain with nausea vomiting diarrhea was seen in another hospital earlier diagnosis of viral illness diagnosis of viral infection RSV did not test positive. Did patient did have RSV in 10/13/2023 . Patient refusing senna, citrucel, velazquez causing diarrhea and wants stopped. patient states he is not safe in his home and wants to stay in the hospital despite explaining to him thathe cannot stay in hospitals [facility] Medical History Leg swelling Ankle pain, left Feeling suicidal Tinea cruris Atrial flutter Atrial fib/flutter, transient A-fib Arrhythmia Abnormal EKG Contusion of left ankle Annual physical exam Abdominal pain Back pain Positive colorectal cancer screening using Cologuard test Precordial chest pain Hospital discharge follow-up Chest pain Right ankle pain Musculoskeletal chest pain Left-sided chest pain Back pain Fall Acute kidney injury Gait instability Suicidal ideation COVID-19 Hypomagnesemia Diarrhea Abdominal pain Left ankle sprain Seizure disorder Hypertension Anxiety Hyponatremia Cerebellar ataxia Anemia Lactose intolerance Vertigo Asthma Mental disability Type 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 Proteinuria Hyperlipidemia LDL goal <100 Essential hypertension Surgical History Hx of colonoscopy History of orchiectomy Family History Father Myocardial infarction CVD (cardiovascular disease) Diabetes mellitus Mother Diabetes mellitus HTN (hypertension) Brother In good health Sister In good health Social History Household Members: Other Household Members Other:: from intermediate Housing: Other Housing Other:: intermediate Do you presently have visiting nurse or other home services: Yes Alcohol intake: never 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 Patient Tobacco Use Status: Never used Tobacco e-Cigarette/Vaping Use: Never Used Second Hand Smoke Exposure: No Advance Directives Date on File: 05/23/21 service: No Current occupational status: disabled Cognitive needs: Yes (walker) Hearing needs: No Vision needs: Yes (glasses) Questionnaire Thrive Questionnaire Date Thrive assessed: 11/14/23 I am a: Parent/Caregiver Within the past 12 months, did the food you bought not last and you didn't have the money to get more?: Never true Within the past 12 months, did you worry whether your food would run out before you got money to buy more?: Never true AUDIT C Alcohol Use Questionnaire (AUDIT-C) 1. How often do you have a drink containing alcohol?: Never 2. How many drinks containing alcohol do you have on a typical day when you are drinking?: 1 or 2 (0) 3. How often do you have six or more drinks on one occasion?: Never Total Score: 0 Score Reviewed/Action Taken: Yes CHANI-7 AMB Questionnaire CHANI-7 Date CHANI - 7 assessed: 11/14/23 Source: Developed by Drs. Wellington López, Monica Jackson, Ray Nguyen and colleagues, with an educational perez from [employer]. Physical exam (Primary Care) Vital Signs: Last Vital Signs Pulse 74 11/14/23 16:10 BP 132/70 11/14/23 16:10 Pulse Ox 96 11/14/23 16:10 Oxygen Delivery Method Room Air 11/14/23 16:10 BMI result Body Mass Index 42.5 Tobacco/Smoking Status: Tobacco use Status Tobacco use date assessed 11/14/23 11/14/23 16:11 Patient Tobacco Use Status Never used Tobacco 11/14/23 16:11 e-Cigarette/Vaping Use Never Used 11/14/23 16:11 Thrive Assessment: Date of Thrive Assessment Date Thrive assessed 11/14/23 11/14/23 16:11 Const General: alert; No acute distress Eyes Conjunctivae: conjunctivae normal Resp Auscultation: clear to auscultation bilaterally Cardio Rate: regular rate Rhythm: regular rhythm GI Inspection: Yes normal to inspection Neuro Other: Has bilateral braces on the feet and legs Extrem General: Yes normal to inspection and No edema Results AMB Hemoglobin A1c AMB Hemoglobin A1c 7.7 % Last Edit by YANNA Pinon on 11/14/23 16:27 Results Reviewed Results Reviewed: Laboratory Last Values Hgb A1c (Clinic) 7.7 % (4.0-6.0) H 11/14/23 16:26 Assessment and Plan Assessment & Plan (1) Type 2 diabetes mellitus with hyperglycemia: Code(s): E11.65 - Type 2 diabetes mellitus with hyperglycemia Plan: Decrease the amount of carbohydrate intake, pasta, bread, rice and potatoes are all sugar and that is aside from all the sweet stuff, remember that fruits are good but they are Sweet also. Hemoglobin A1c goal of less than 6.5 patient is on Jardiance 25 mg once a day metformin 500 mg twice a day (2) Hyperlipidemia LDL goal <100: Code(s): E78.5 - Hyperlipidemia, unspecified Plan: Avoid fried foods, chicken skin, eggs, butter margarine, pastries and meat. Be it pork or beef they have a lot of cholesterol LDL goal of less than 100 and triglyceride of less than 150 presently on atorvastatin 10 mg at bedtime (3) Essential hypertension: Code(s): I10 - Essential (primary) hypertension Plan: Continue with blood pressure medication. Decrease salt intake and exercise continue with hydralazine 50 mg 3 times a day lisinopril 20 mg once a day propranolol 20 mg 3 times a day (4) Cerebellar ataxia: Code(s): G11.9 - Hereditary ataxia, unspecified Plan: Keep active (5) Cognitive developmental delay: Code(s): F81.9 - Developmental disorder of scholastic skills, unspecified Plan: Continue to follow-up with psychiatry counseling. patient is advised to talk to psychiatrist about his rage (6) GERD (gastroesophageal reflux disease): Code(s): K21.9 - Gastro-esophageal reflux disease without esophagitis Qualifiers: Esophagitis presence: esophagitis presence not specified Qualified Code(s): K21.9 - Gastro-esophageal reflux disease without esophagitis Plan: Eat healthy keep active (7) RSV (acute bronchiolitis due to respiratory syncytial virus): Code(s): J21.0 - Acute bronchiolitis due to respiratory syncytial virus Plan: Resolved Orders: Orders AMB Hemoglobin A1c Today E11.65 - Type 2 diabetes mellitus with hyperglycemia Medications: New tirzepatide (Mounjaro) 2.5 mg (0.5 mL) subcut QWEEK 4 weeks 2 mL 0RF E11.65 - Type 2 diabetes mellitus with hyperglycemia loperamide (Imodium A-D) 2 mg PO TID PRN 10 caps 0RF loose stool lactase (Lactaid) take at the start of drinking milk only 3,000 units PO TIDWM PRN 30 tabs 11RF Lactose Intolerance E11.65 - Type 2 diabetes mellitus with hyperglycemia Discontinued methylcellulose (laxative) (Citrucel) Discontinued Reason: Patient Refused 1,000 mg (2 x 500 mg) PO DAILY 60 tabs 3RF sennosides (Senna Lax) Discontinued Reason: Patient Refused 17.2 mg (2 x 8.6 mg) PO BEDTIME 90 tabs 0RF constipation Coding Level of Care Code Est Pt Level 4 (52153) Diagnoses Type 2 diabetes mellitus with hyperglycemia E11.65 Hyperlipidemia LDL goal <100 E78.5 Essential hypertension I10 Cerebellar ataxia G11.9 Cognitive developmental delay F81.9 Gastroesophageal reflux disease, unspecified whether esophagitis present K21.9 Esophagitis presence: esophagitis presence not specified RSV (acute bronchiolitis due to respiratory syncytial virus) J21.0
== END 2023-11-14 17:31 | disposition home or self-care (01) ==
PROVIDERS: PCP Internal Medicine; Visit Provider Internal Medicine
DX: E11.65 Type 2 diabetes mellitus with hyperglycemia (principal); G11.9 Hereditary ataxia, unspecified; E78.5 Hyperlipidemia, unspecified; I10 Essential (primary) hypertension; F81.9 Developmental disorder of scholastic skills, unspecified; K21.9 Gastro-esophageal reflux disease without esophagitis; J21.0 Acute bronchiolitis due to respiratory syncytial virus
CPT/HCPCS: 83036; 99214

== ENCOUNTER 2023-12-05 11:24 | Outpatient (AMB) | payer MEDICARE, MEDICAID, SELFPAY ==
[2023-12-05 11:30] VITALS: BP 134/66; PULSE 91; O2SAT 99; BMI 43.1
--- NOTE | 2023-12-05 11:30 | A.OFFPC_ITS ---
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 Required: No Allergies Sulfa (Sulfonamide Antibiotics) Allergy (Severe, Verified 12/05/23 11:43) LANDEROS ALICIA REACTION, Landeros Alicia trimethoprim Allergy (Mild, Verified 12/05/23 11:43) UNKNOWN lactose Adverse Reaction (Mild, Verified 12/05/23 11:43) STOMACH UPSET Tobacco use date assessed: 12/05/23 Dental Screening Dental Screen Date: 12/05/23 Did you have a dental visit in the last 12 months?: Yes Did you have a dental problem in the last 6 months where you did not have access to dental care?: No Was dental information given to patient?: Patient has dentist HPI 3mth f/u HPI Details 53-year-old morbidly obese male with men [place] and behavioral problem/cognitive behavioral delay having cerebellar ataxia diabetes mellitus hypercholesterolemia GERD coming in for follow-up. Last seen last month. Colonoscopy is up-to-date September 2022. October 2023 last blood work. Complains of having diarrhea and walking is a problem, urinary incontinence patient has met with Gastroenterology and workup pending. With the lower extremity weakness and numbness, rectal incontinence and urinary incontinence patient was advised to get an MRI done on the lower back. Otherwise diabetes is not under control A1c of 7.7 presently on Jardiance, Mounjaro and metformin. [facility] Medical History Leg swelling Ankle pain, left Feeling suicidal Tinea cruris Atrial flutter Atrial fib/flutter, transient A-fib Arrhythmia Abnormal EKG Contusion of left ankle Annual physical exam Abdominal pain Back pain Positive colorectal cancer screening using Cologuard test Precordial chest pain Hospital discharge follow-up Chest pain Right ankle pain Musculoskeletal chest pain Left-sided chest pain Back pain Fall Acute kidney injury Gait instability Suicidal ideation COVID-19 Hypomagnesemia Diarrhea Abdominal pain Left ankle sprain Seizure disorder Hypertension Anxiety Hyponatremia Cerebellar ataxia Anemia Lactose intolerance Vertigo Asthma Mental disability Type 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 Proteinuria Hyperlipidemia LDL goal <100 Essential hypertension Surgical History Hx of colonoscopy History of orchiectomy Family History Father Myocardial infarction CVD (cardiovascular disease) Diabetes mellitus Mother Diabetes mellitus HTN (hypertension) Brother In good health Sister In good health Social History Household Members: Other Household Members Other:: from assisted Housing: Other Housing Other:: assisted Do you presently have visiting nurse or other home services: Yes Alcohol intake: never 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 Patient Tobacco Use Status: Never used Tobacco e-Cigarette/Vaping Use: Never Used Second Hand Smoke Exposure: No Advance Directives Date on File: 05/23/21 service: No Current occupational status: disabled Cognitive needs: Yes (walker) Hearing needs: No Vision needs: Yes (glasses) Questionnaire Thrive Questionnaire Date Thrive assessed: 11/14/23 AUDIT C Alcohol Use Questionnaire (AUDIT-C) 1. How often do you have a drink containing alcohol?: Never 2. How many drinks containing alcohol do you have on a typical day when you are drinking?: 1 or 2 (0) 3. How often do you have six or more drinks on one occasion?: Never Total Score: 0 Score Reviewed/Action Taken: Yes CHANI-7 AMB Questionnaire CHANI-7 Date CHANI - 7 assessed: 11/14/23 Source: Developed by Drs. Wellington López, Monica Jackson, Ray Nguyen and colleagues, with an educational perez from [employer]. Physical exam (Primary Care) Vital Signs: Last Vital Signs Pulse 91 12/05/23 11:30 BP 134/66 12/05/23 11:30 Pulse Ox 99 12/05/23 11:30 Oxygen Delivery Method Room Air 12/05/23 11:30 BMI result Body Mass Index 43.1 Tobacco/Smoking Status: Tobacco use Status Tobacco use date assessed 12/05/23 12/05/23 11:31 Patient Tobacco Use Status Never used Tobacco 12/05/23 11:31 e-Cigarette/Vaping Use Never Used 12/05/23 11:31 Thrive Assessment: Date of Thrive Assessment Date Thrive assessed 11/14/23 12/05/23 11:31 Const General: alert; No acute distress Eyes Conjunctivae: conjunctivae normal Resp Auscultation: clear to auscultation bilaterally Cardio Rate: regular rate Rhythm: regular rhythm GI Inspection: Yes normal to inspection Extrem General: Yes normal to inspection and No edema Assessment and Plan Assessment & Plan (1) Type 2 diabetes mellitus with hyperglycemia: Code(s): E11.65 - Type 2 diabetes mellitus with hyperglycemia Plan: Decrease the amount of carbohydrate intake, pasta, bread, rice and potatoes are all sugar and that is aside from all the sweet stuff, remember that fruits are good but they are Sweet also. Presently on Jardiance 25 mg once a day metformin 500 mg twice a day and started on Mounjaro (2) Hyperlipidemia LDL goal <100: Code(s): E78.5 - Hyperlipidemia, unspecified Plan: Avoid fried foods, chicken skin, eggs, butter margarine, pastries and meat. Be it pork or beef they have a lot of cholesterol LDL goal of less than 100 and triglyceride of less than 150. Patient is on atorvastatin 10 mg once a day (3) Essential hypertension: Code(s): I10 - Essential (primary) hypertension Plan: Continue with blood pressure medication. Decrease salt intake and exercise takes hydralazine 50 mg 3 times a day lisinopril 20 mg once a day propranolol 20 mg 3 times a day (4) Schizophrenia: Code(s): F20.9 - Schizophrenia, unspecified Plan: Continue to follow-up with psychiatry and counseling (5) Lower extremity numbness: Code(s): R20.0 - Anesthesia of skin (6) Lower extremity weakness: Code(s): R29.898 - Other symptoms and signs involving the musculoskeletal system (7) Urinary incontinence: Code(s): R32 - Unspecified urinary incontinence (8) Rectal incontinence: Code(s): R15.9 - Full incontinence of feces Orders: Orders MR lumbar spine wo con Today R15.9 - Full incontinence of feces, R20.0 - Anesthesia of skin, R29.898 - Other symptoms and signs involving the musculoskeletal system, R32 - Unspecified urinary incontinence Coding Level of Care Code Est Pt Level 4 (38998) Diagnoses Type 2 diabetes mellitus with hyperglycemia E11.65 Hyperlipidemia LDL goal <100 E78.5 Essential hypertension I10 Schizophrenia F20.9 Lower extremity numbness R20.0 Lower extremity weakness R29.898 Urinary incontinence R32 Rectal incontinence R15.9
== END 2023-12-05 12:24 | disposition home or self-care (01) ==
PROVIDERS: PCP Internal Medicine; Visit Provider Internal Medicine
DX: E11.65 Type 2 diabetes mellitus with hyperglycemia (principal); F20.9 Schizophrenia, unspecified; E66.01 Morbid (severe) obesity due to excess calories; Z68.41 Body mass index [BMI] 40.0-44.9, adult; E78.5 Hyperlipidemia, unspecified; I10 Essential (primary) hypertension; R20.0 Anesthesia of skin; R29.898 Other symptoms and signs involving the musculoskeletal system; R32 Unspecified urinary incontinence; R15.9 Full incontinence of feces
CPT/HCPCS: 99214

== ENCOUNTER 2023-12-23 08:19 | Emergency (ER) | payer MEDICARE, MEDICAID, SELFPAY ==
--- NOTE | ~2023-12-23 | XR_ITS ---
EXAMINATION: XR CHEST CLINICAL INFORMATION: Shortness of breath COMPARISON: Chest radiograph from 10/13/2023 TECHNIQUE: Frontal view of the chest was obtained. FINDINGS: Increased right basilar radiopacity which may reflect elements of atelectasis versus evolving infectious/inflammatory etiology. No pneumothorax. Trachea is midline. Cardiac mediastinal silhouette is not enlarged. No large pleural effusion. Osseous structures are intact. Soft tissues are unremarkable. XR/XR chest 1V IMPRESSION: Increased right basilar radiopacity which may reflect elements of atelectasis versus evolving infectious/inflammatory etiology.
--- NOTE | ~2023-12-23 | XR_ITS ---
EXAMINATION: XR FOOT, RIGHT XR ANKLE, RIGHT CLINICAL INFORMATION: Fall COMPARISON: Right ankle radiograph from 08/09/2023 TECHNIQUE: 2 views of the right ankle 4 views of the right foot FINDINGS: Limited evaluation the ankle secondary to patient positioning. No acute visible fracture or dislocation. Redemonstration of increased distance along the lateral talar dome/ankle mortise, similar to prior potentially representing chronic ligamentous injury. Multi joint arthritic changes. Enthesopathy at the Achilles tendon insertion site. Spurring the dorsal midfoot. Joint spaces and alignment are otherwise maintained. Soft tissue prominence about the foot. XR/XR foot RT min 3V IMPRESSION: 1. Limited evaluation of the ankle secondary to patient positioning. 2. No acute visible fracture or dislocation. 3. Redemonstration of increased distance along the lateral talar dome/ankle mortise, similar to prior potentially representing chronic ligamentous injury. 4. Multi joint arthritic changes. 5. Soft tissue prominence about the foot.
--- NOTE | ~2023-12-23 | XR_ITS ---
EXAMINATION: XR KNEE, RIGHT CLINICAL INFORMATION: Fall COMPARISON: None available. TECHNIQUE: Four views of the right knee. FINDINGS: No acute visible fracture or dislocation. Joint space alignment are maintained. Knee joint effusion. Soft tissues are unremarkable. XR/XR knee RT 3V IMPRESSION: 1. No acute visible fracture or dislocation. 2. Knee joint effusion.
--- NOTE | ~2023-12-23 | XR_ITS ---
EXAMINATION: XR FOOT, RIGHT XR ANKLE, RIGHT CLINICAL INFORMATION: Fall COMPARISON: Right ankle radiograph from 08/09/2023 TECHNIQUE: 2 views of the right ankle 4 views of the right foot FINDINGS: Limited evaluation the ankle secondary to patient positioning. No acute visible fracture or dislocation. Redemonstration of increased distance along the lateral talar dome/ankle mortise, similar to prior potentially representing chronic ligamentous injury. Multi joint arthritic changes. Enthesopathy at the Achilles tendon insertion site. Spurring the dorsal midfoot. Joint spaces and alignment are otherwise maintained. Soft tissue prominence about the foot. XR/XR ankle RT min 3V IMPRESSION: 1. Limited evaluation of the ankle secondary to patient positioning. 2. No acute visible fracture or dislocation. 3. Redemonstration of increased distance along the lateral talar dome/ankle mortise, similar to prior potentially representing chronic ligamentous injury. 4. Multi joint arthritic changes. 5. Soft tissue prominence about the foot.
[2023-12-23 08:30] VITALS: BP 142/74; BP 148/70; PULSE 85; RESP 18; RESP 20; TEMP 36.9; O2SAT 97; O2SAT 99; BMI 40.0
--- NOTE | 2023-12-23 08:43 | ED_ITS ---
HPI - Fall General Chief Complaint: Fall Stated Complaint: R ANKLE PAIN S/P FALL PER EMS Time Seen by Provider: 12/23/23 08:25 Related Data Home Medications Medication Instructions Recorded Confirmed fluticasone propionate 50 2 spray intranasal BID 11/19/22 11/14/23 mcg/actuation nasal spray,suspension divalproex 500 mg tablet,extended 1,000 mg PO BID 06/10/23 11/14/23 release 24 hr fluticasone 250 mcg-salmeterol 50 1 ea inhalation BID 06/10/23 11/14/23 mcg/dose blistr powdr for inhalation (Advair Diskus) gabapentin 100 mg capsule 200 mg PO BID 06/10/23 11/14/23 hydralazine 50 mg tablet 50 mg PO TID 06/10/23 11/14/23 risperidone 3 mg tablet 3 mg PO BID 06/10/23 11/14/23 albuterol sulfate 90 mcg/actuation 2 puff inhalation Q6H PRN Wheezing 07/29/23 11/14/23 aerosol inhaler dextran 70-hypromellose 0.1 %-0.3 1 drp ophthalmic (eye) Q4H PRN Dry 07/29/23 11/14/23 % eye drops (GenTeal Tears Mild) Eye(S) ferrous sulfate 325 mg (65 mg 325 mg PO BID 07/29/23 11/14/23 iron) tablet guaifenesin 100 mg/5 mL oral 200 mg PO Q4H PRN Cough 07/29/23 11/14/23 liquid (Siltussin SA) ondansetron 4 mg disintegrating 4 mg PO Q6H PRN Nausea And Vomiting 07/29/23 11/14/23 tablet urea 15 gram oral powder packet 1 packet PO DAILY 07/29/23 11/14/23 (Ure-Na) hydroxyzine pamoate 50 mg capsule 50 mg PO DAILY PRN 10/13/23 11/14/23 AGITATION/ANXIETY neomycin-bacitracn Zn-polymyxn 3.5 1 appl topical BID 10/13/23 11/14/23 mg-400 unit-5,000 unit top oint pkt (Triple Antibiotic) Previous Rx's Medication Instructions Recorded acetaminophen 325 mg tablet 650 mg (2 x 325 mg) PO Q4H PRN 06/11/22 fever or pain 90 days #180 tabs blood sugar diagnostic (OneTouch #100 ea 06/17/23 Ultra Test strips) blood-glucose meter (OneTouch #1 ea 06/17/23 Ultra2 Meter) lancets 30 gauge (OneTouch #100 ea 06/17/23 UltraSoft 2 Lancet) aluminum-mag hydroxide-simethicone 5 ml PO QID PRN indigestion #100 mL 08/01/23 400 mg-400 mg-40 mg/5 mL oral susp (Mylanta Maximum Strength) bismuth subsalicylate 262 mg/15 mL 524 mg (30 mL) PO QID PRN diarrhea 08/01/23 oral suspension (Pepto-Bismol) 7 days #1,200 mL lisinopril 20 mg tablet 20 mg PO DAILY #30 tabs 08/01/23 nystatin 100,000 unit/gram topical 1 appl topical TID PRN Rash #60 08/04/23 powder grams empagliflozin 25 mg tablet 25 mg PO DAILY #30 tabs 08/18/23 (Jardiance) alvarez.stocking,knee,reg,xlrg #12 ea 08/27/23 atorvastatin 10 mg tablet 10 mg PO BEDTIME #90 tabs 09/24/23 dexlansoprazole 60 mg 60 mg PO BEDTIME #90 caps 09/24/23 capsule,biphase delayed release metformin 500 mg tablet 500 mg PO BID #180 tabs 09/24/23 propranolol 20 mg tablet 20 mg PO TID@0800,1600,2000 90 09/24/23 days #270 tabs dextromethorphan polistirex 30 10 ml PO Q12H PRN cough #89 mL 10/15/23 mg/5 mL oral susp ext.release 12hr (Delsym 12 hour) Lactobacillus rhamnosus GG 10 1 cap PO BID 7 days #14 caps 10/21/23 billion cell capsule (Culturelle) lactase 3,000 unit tablet (Lactaid) 3,000 unit PO TIDWM PRN Lactose 11/14/23 Intolerance #30 tabs loperamide 2 mg capsule (Imodium 2 mg PO TID PRN loose stool #10 11/14/23 A-D) caps cyanocobalamin (vitamin B-12) 1,000 mcg PO BEDTIME #90 tabs 12/05/23 1,000 mcg tablet furosemide 20 mg tablet 20 mg PO DAILY #30 tabs 12/05/23 loperamide 2 mg capsule (Imodium 2 mg PO TID PRN loose stool #20 12/05/23 A-D) caps tirzepatide 2.5 mg/0.5 mL 2.5 mg (0.5 mL) subcut QWEEK 4 12/05/23 subcutaneous pen injector weeks #2 mL (Mounjaro) cholecalciferol (vitamin D3) 25 25 mcg PO DAILY #30 tabs 12/16/23 mcg (1,000 unit) tablet amoxicillin 500 mg capsule 1,000 mg (2 x 500 mg) PO TID 7 12/23/23 days #42 caps doxycycline hyclate 100 mg tablet 100 mg PO BID 7 days #14 tabs 12/23/23 Allergies Allergy/AdvReac Type Severity Reaction Status Date / Time Sulfa (Sulfonamide Allergy Severe CHAVEZ Verified 12/05/23 11:43 Antibiotics) ALICIA REACTION, Chavez Alicia trimethoprim Allergy Mild UNKNOWN Verified 12/05/23 11:43 lactose AdvReac Mild STOMACH Verified 12/05/23 11:43 UPSET PMFSH Past Medical History Medical History Leg swelling Ankle pain, left Feeling suicidal Tinea cruris Atrial flutter Atrial fib/flutter, transient A-fib Arrhythmia Abnormal EKG Contusion of left ankle Annual physical exam Abdominal pain Back pain Positive colorectal cancer screening using Cologuard test Precordial chest pain Hospital discharge follow-up Chest pain Right ankle pain Musculoskeletal chest pain Left-sided chest pain Back pain Fall Acute kidney injury Gait instability Suicidal ideation COVID-19 Hypomagnesemia Diarrhea Abdominal pain Left ankle sprain Seizure disorder Hypertension Anxiety Hyponatremia Cerebellar ataxia Anemia Lactose intolerance Vertigo Asthma Mental disability Type 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 Proteinuria Hyperlipidemia LDL goal <100 Essential hypertension Surgical History Hx of colonoscopy History of orchiectomy Family History Family History Father Myocardial infarction CVD (cardiovascular disease) Diabetes mellitus Mother Diabetes mellitus HTN (hypertension) Brother In good health Sister In good health Social History Social History Household Members: Other Household Members Other:: from longterm Housing: Other Housing Other:: longterm Do you presently have visiting nurse or other home services: Yes Alcohol intake: never 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 Patient Tobacco Use Status: Never used Tobacco e-Cigarette/Vaping Use: Never Used Second Hand Smoke Exposure: No Advance Directives: Yes Advance Directives on File: Yes Advance Directives Date on File: 05/23/21 service: No Current occupational status: disabled Cognitive needs: Yes (walker) Hearing needs: No Vision needs: Yes (glasses) Physical Exam 2 Vital Signs: Vital Signs: Last Vital Signs Temp 98.5 F 12/23/23 08:30 Pulse 85 12/23/23 08:30 Resp 18 12/23/23 08:30 BP 142/74 H 12/23/23 08:30 Pulse Ox 97 12/23/23 08:30 O2 Del Method Room Air 12/23/23 08:30 BMI result Body Mass Index 40.0 Course Course Course Narrative: -CARE team aware of patient, & does not evaluate patient for suicidal ideations any longer based on his current care plan. half-way/staff are aware of this & patient's chronic suicidality, he has high level of care at his current living situation & Is safe dispo, will not meet inpatient criteria for psych XR chest 1V IMPRESSION: Increased right basilar radiopacity which may reflect elements of atelectasis versus evolving infectious/inflammatory etiology. > will treat with antibiotics to cover possible infectious etiology XR knee RT 3V IMPRESSION: 1. No acute visible fracture or dislocation. 2. Knee joint effusion. XR foot RT min 3V/XR ankle RT min 3V IMPRESSION: 1. Limited evaluation of the ankle secondary to patient positioning. 2. No acute visible fracture or dislocation. 3. Redemonstration of increased distance along the lateral talar dome/ankle mortise, similar to prior potentially representing chronic ligamentous injury. 4. Multi joint arthritic changes. 5. Soft tissue prominence about the foot. > Nate wrap applied to knee and ankle -CPK 871 > does not meet criteria for rhabdo. Patient received IVF in the ED, is able to tolerate p.o., will encourage p.o. intake. Labs otherwise reassuring. Troponin negative. Results discussed with patient including worrisome signs and symptoms and strict return precautions, and when to return to the emergency department. They verbalized understanding and feel safe for discharge at this time. Medications Administered Discontinued Medications Generic Name Dose Route Start Last Admin Trade Name Elly PRN Reason Stop Dose Admin Sodium Chloride 500 mls @ 999 mls/hr 12/23/23 11:45 12/23/23 12:03 Ns IV 12/23/23 12:15 999 mls/hr .Q31M PILO Administration Medical Decision Making Lab Data 12/23/23 09:44 12/23/23 09:38 Labs: Lab Results 12/23/23 12/23/23 12/23/23 Range/Units 09:38 09:44 09:45 WBC 5.8 (4.8-10.8) X10*3/uL RBC 3.73 L (4.60-5.80) X10*6/uL Hgb 11.3 L (14.0-18.0) g/dl Hct 34.0 L (42.0-52.0) % MCV 91.2 (80.0-98.0) fL MCH 30.3 (27.0-33.0) pg MCHC 33.2 (31.0-36.0) g/dl RDW 13.5 (11.0-16.0) % Plt Count 85 L D (160-400) X10*3/uL MPV 9.5 (9.4-12.4) fL Immature Gran % (Auto) 0.9 H (0.0-0.4) % Neut % (Auto) 63.7 (45-73) % Lymph % (Auto) 22.3 (20-40) % Ellis % (Auto) 11.8 H (2-11) % Eos % (Auto) 1.0 (0-4) % Baso % (Auto) 0.3 (0-2) % Lymph # (Auto) 1.3 (1.2-4.9) X10*3/uL Ellis # (Auto) 0.7 (0.1-1.2) X10*3/uL Eos # (Auto) 0.1 (0.0-0.4) X10*3/uL Baso # (Auto) 0.0 (0.0-0.2) X10*3/uL Abs Immat Gran (auto) 0.05 H (0.00-0.03) X10*3/uL Absolute Neuts (auto) 3.7 (2.0-8.3) x10*3/uL Absolute Nucleated RBC 0.000 (0.0-0.012) X10*3/uL Nucleated RBC % (auto) 0.0 (0.0-0.2) /100WBC Sodium 141 (135-145) mmol/L Potassium 4.0 (3.3-5.1) mmol/L Chloride 105 (96-108) mmol/L Carbon Dioxide 28 (22-29) mmol/L Anion Gap 12 (12-20) BUN 20 H (9-16) mg/dL Creatinine 1.10 (0.5-1.4) mg/dL Estim Creat Clear Calc 92.5 Estimated GFR > 60 Random Glucose 119 H (60-115) mg/dL Calcium 8.8 (8.4-10.2) mg/dL Total Bilirubin 0.3 (0.0-1.0) mg/dL Direct Bilirubin 0.1 (0.0-0.5) mg/dL AST 21 (5-37) U/L ALT 16 (0-40) U/L Alkaline Phosphatase 82 (39-117) U/L Total Creatine Kinase 871 H (38-174) U/L Troponin I High Sens 3.3 (<3.5-35.0) ng/L B-Natriuretic Peptide 36 (<100) pg/mL Total Protein 6.9 (6.5-8.0) g/dL Albumin 3.6 (3.5-5.0) g/dL COVID-19 (MICHAELA) Negative (Negative) COVID-19 Clin Com See Note Discharge Plan Discharge Clinical Impression: Effusion of knee, Ankle sprain, Depressed, Chest pain Patient Disposition: Xfer Other Transfer Details: INTERMEDIATE Instructions: Ankle Sprain (DC), Depression (DC), Swollen Knee Joint (ED) Additional Instructions: Your x-ray shows possible early pneumonia. Amoxicillin & Doxycycline are antibiotics please take as prescribed Wear Nate wrap for compression/comfort. Ice and elevate your knee and ankle Take Tylenol and Motrin for pain/swelling Continue home medications Follow-up with your doctor if symptoms persist or worsen return to the ED Prescriptions: New amoxicillin 500 mg capsule 1,000 mg PO TID 7 Days Qty: 42 0RF doxycycline hyclate 100 mg tablet 100 mg PO BID 7 Days Qty: 14 0RF No Action acetaminophen 325 mg tablet 650 mg PO Q4H PRN (Reason: fever or pain) 90 Days Qty: 180 2RF (DME) OneTouch Ultra Test Strip See Rx Instructions .Route Qty: 100 5RF Rx Instructions: test once daily (DME) blood-glucose meter [OneTouch Ultra2 Meter] Misc See Rx Instructions .Route Qty: 1 0RF Rx Instructions: test once daily (DME) lancets [OneTouch UltraSoft 2 Lancet] 30 gauge misc See Rx Instructions .Route Qty: 100 5RF Rx Instructions: test once daily nystatin 100,000 unit/gram powder 1 appl TOPICAL TID PRN (Reason: Rash) Qty: 60 0RF (DME) alvarez.stocking,knee,reg,xlrg Misc See Rx Instructions .Route Qty: 12 0RF Rx Instructions: As directed 10-20 mm HG dexlansoprazole 60 mg capsule,biphase delayed releas 60 mg PO BEDTIME Qty: 90 1RF propranolol 20 mg tablet 20 mg PO TID@0800,1600,2000 90 Days Qty: 270 3RF atorvastatin 10 mg tablet 10 mg PO BEDTIME Qty: 90 1RF metformin 500 mg tablet 500 mg PO BID Qty: 180 1RF dextromethorphan polistirex [Delsym 12 hour] 30 mg/5 mL suspension,extended rel 12 hr 10 ml PO Q12H PRN (Reason: cough) Qty: 89 0RF Culturelle 10 billion cell capsule 1 cap PO BID 7 Days Qty: 14 0RF Mounjaro 2.5 mg/0.5 mL pen injector 2.5 mg subcut QWEEK 28 Days Qty: 2 0RF furosemide 20 mg tablet 20 mg PO DAILY Qty: 30 0RF cyanocobalamin (vitamin B-12) 1,000 mcg tablet 1,000 mcg PO BEDTIME Qty: 90 0RF loperamide [Imodium A-D] 2 mg capsule 2 mg PO TID PRN (Reason: loose stool) Qty: 20 0RF cholecalciferol (vitamin D3) 25 mcg (1,000 unit) tablet 25 mcg PO DAILY Qty: 30 11RF fluticasone propionate 50 mcg/actuation spray,suspension 2 spray INTRANASAL BID hydroxyzine pamoate 50 mg capsule 50 mg PO DAILY PRN (Reason: AGITATION/ANXIETY) Triple Antibiotic 3.5-400-5,000 [id number] Ointment In Packet 1 appl TOPICAL BID risperidone 3 mg tablet 3 mg PO BID divalproex 500 mg tablet extended release 24 hr 1,000 mg PO BID hydralazine 50 mg tablet 50 mg PO TID gabapentin 100 mg capsule 200 mg PO BID fluticasone propion-salmeterol [Advair Diskus] 250-50 mcg/dose blister with device 1 ea inhalation BID guaifenesin [Siltussin SA] 100 mg/5 mL Liquid 200 mg PO Q4H PRN (Reason: Cough) ferrous sulfate 325 mg (65 mg iron) Tablet 325 mg PO BID albuterol sulfate 90 mcg/actuation Hfa Aerosol Inhaler 2 puff INHALATION Q6H PRN (Reason: Wheezing) ondansetron 4 mg Tablet,Disintegrating 4 mg PO Q6H PRN (Reason: Nausea And Vomiting) GenTeal Tears Mild 0.1-0.3 % Drops 1 drp ophthalmic (eye) Q4H PRN (Reason: Dry Eye(S)) Ure-Na 15 gram Powder In Packet 1 packet PO DAILY Jardiance 25 mg tablet 25 mg PO DAILY Qty: 30 9RF lisinopril 20 mg tablet 20 mg PO DAILY Qty: 30 3RF alum-mag hydroxide-simeth [Mylanta Maximum Strength] 400-400-40 mg/5 mL suspension 5 ml PO QID PRN (Reason: indigestion) Qty: 100 11RF bismuth subsalicylate [Pepto-Bismol] 262 mg/15 mL suspension 524 mg PO QID PRN (Reason: diarrhea) 7 Days Qty: 1200 0RF loperamide [Imodium A-D] 2 mg capsule 2 mg PO TID PRN (Reason: loose stool) Qty: 10 0RF lactase [Lactaid] 3,000 unit tablet 3,000 unit PO TIDWM PRN (Reason: Lactose Intolerance) Qty: 30 11RF Rx Instructions: take at the start of drinking milk only Referrals: Po,Robert Downing MD [Primary Care Provider] - 3 days
--- NOTE | 2023-12-23 08:44 | ECG_ITS ---
Test Reason : SOB Blood Pressure : / mmHG Vent. Rate : 084 BPM Atrial Rate : 084 BPM P-R Int : 178 ms QRS Dur : 084 ms QT Int : 382 ms P-R-T Axes : 000 -11 030 degrees QTc Int : 451 ms Normal sinus rhythm Normal ECG When compared with ECG of 13-OCT-2023 12:14, No significant change was found Referred By: Nava Romero Electronically Signed By:Oni Mcneil
[2023-12-23 09:49] LABS: MANUAL DIFF FLAG NO
[2023-12-23 10:00] LABS: Basophils Percent Auto 0.3 % (0-2); Eosinophils Absolute Auto 0.1 X10*3/uL (0.0-0.4); Hemoglobin 11.3 g/dl (14.0-18.0); Imm Gran Abs Auto 0.05 X10*3/uL (0.00-0.03); Imm Gran Pct Auto 0.9 % (0.0-0.4); Lymphocytes Absolute Auto 1.3 X10*3/uL (1.2-4.9); Lymphocytes Percent Auto 22.3 % (20-40); Mean Corpuscular HGB Conc 33.2 g/dl (31.0-36.0); Mean Corpuscular Hemoglobin 30.3 pg (27.0-33.0); Mean Corpuscular Volume 91.2 fL (80.0-98.0); Mean Platelet Volume 9.5 fL (9.4-12.4); Monocytes Absolute Auto 0.7 X10*3/uL (0.1-1.2); Monocytes Percent Auto 11.8 % (2-11); Neutrophils Absolute Auto 3.7 x10*3/uL (2.0-8.3); Neutrophils Percent Auto 63.7 % (45-73); Red Blood Count 3.73 X10*6/uL (4.60-5.80); Red Cell Distribution Width 13.5 % (11.0-16.0); White Blood Count 5.8 X10*3/uL (4.8-10.8)
[2023-12-23 10:04] LABS: COVID-19 Test Negative (Negative); IDNOW Serial# 6674DD1D
[2023-12-23 10:14] LABS: Alanine Aminotransferase 16 U/L (0-40); Albumin Level 3.6 g/dL (3.5-5.0); Alkaline Phosphatase 82 U/L (39-117); Anion Gap 12 (12-20); Aspartate Amino Transferase 21 U/L (5-37); Bilirubin Direct 0.1 mg/dL (0.0-0.5); Bilirubin Total 0.3 mg/dL (0.0-1.0); Blood Urea Nitrogen 20 mg/dL (9-16); Calcium 8.8 mg/dL (8.4-10.2); Carbon Dioxide 28 mmol/L (22-29); Chloride 105 mmol/L (96-108); Creatinine Clr Calc Pharmacy 92.5; Estimated Glomerular Filt Rate > 60; Glucose Random 119 mg/dL (60-115); Sodium 141 mmol/L (135-145); Total Protein 6.9 g/dL (6.5-8.0)
[2023-12-23 10:18] LABS: B Type Natriuretic Peptide 36 pg/mL (<100)
[2023-12-23 10:19] LABS: Platelet Count 85 X10*3/uL (160-400)
[2023-12-23 10:21] LABS: Troponin-I High Sensitivity 3.3 ng/L (<3.5-35.0)
--- NOTE | 2023-12-23 11:45 | PC.NURSE ---
IVF administered per provider order.
[2023-12-23] MEDS: 0.9 % Sodium Chloride 500 ML 999 ML IV (12:03)
--- NOTE | 2023-12-23 12:52 | PHA.MEDREC ---
Pharmacy Consult ? Medication Reconciliation Pharmacy has completed the medication reconciliation. Patient came in with list
--- NOTE | 2023-12-23 13:37 | PC.NURSE ---
justin wraps applied to right knee/ankle. pt tolerated well. report given to EMS at this time.
== END 2023-12-23 15:05 | disposition other institution (70) ==
PROVIDERS: Physician Assistant; Emergency Provider Emergency Medicine Emergency Medical Services; PCP Internal Medicine
DX: M25.571 Pain in right ankle and joints of right foot (principal); R07.89 Other chest pain; F33.1 Major depressive disorder, recurrent, moderate; M25.561 Pain in right knee; Z79.899 Other long term (current) drug therapy; Z11.52 Encounter for screening for COVID-19
CPT/HCPCS: 36415; 71045; 73562; 73610; 73630; 80048; 80076; 82550; 83880; 84484; 85025; 87635; 93005; 96360; 99283; 99284

== ENCOUNTER → 2023-12-23 08:44 | Outpatient (BNV) | payer MEDICARE, MEDICAID, SELFPAY | PROVIDERS: Emergency Provider Emergency Medicine Emergency Medical Services; PCP Internal Medicine; Visit Provider Internal Medicine Cardiovascular Disease | DX: R06.02 Shortness of breath (principal) | CPT/HCPCS: 93010 ==

== ENCOUNTER 2024-01-02 13:03 | Outpatient (AMB) | payer MEDICARE, MEDICAID, SELFPAY ==
[2024-01-02 13:06] VITALS: BP 140/80; PULSE 74; O2SAT 98; BMI 41.6
--- NOTE | 2024-01-02 13:06 | A.OFFPC_ITS ---
Vital Signs 01/02/24 13:06 Height 5 ft 6 in Weight 257 lb 15.053 oz BMI 41.6 BP 140/80 H Blood Pressure Location Lt brachial Position Sitting Pulse 74 Pulse Source Pulse Oximeter Pulse Oximetry (%) 98 Oxygen Delivery Method Room Air Intake Visit Reasons: ED 12/23/23 falling Intake Note: Patient is here to follow-up after a visit the emergency department at 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: No Allergies Sulfa (Sulfonamide Antibiotics) Allergy (Severe, Verified 01/02/24 13:07) LANDEROS ALICIA REACTION, Landeros Alicia trimethoprim Allergy (Mild, Verified 01/02/24 13:07) UNKNOWN lactose Adverse Reaction (Mild, Verified 01/02/24 13:07) STOMACH UPSET Medication List - Last Reconciled 01/02/24 by Robert Sumner MD acetaminophen 650 mg (2 x 325 mg) PO Q4H PRN 90 days albuterol sulfate 90 mcg/actuation 2 puffs inhalation Q6H PRN atorvastatin 10 mg PO BEDTIME bismuth subsalicylate (Pepto-Bismol) 524 mg (30 mL) PO QID PRN 7 days blood sugar diagnostic (How[employer] Verio test strips) As directed check blood sugar TID blood-glucose meter (OneTouch Ultra2 Meter) test once daily cholecalciferol (vitamin D3) 25 mcg PO DAILY [email or web address],knee,reg,xlrg As directed 10-20 mm HG cyanocobalamin (vitamin B-12) 1,000 mcg PO BEDTIME dextromethorphan polistirex ER (Delsym 12 hour) 10 mL PO Q12H PRN divalproex ER 1,000 mg PO BID doxycycline hyclate 100 mg PO BID 7 days empagliflozin (Jardiance) 25 mg PO DAILY esomeprazole magnesium (Nexium) 40 mg PO DAILY ferrous sulfate 325 mg PO BID fluoride (sodium) 1.1% (PreviDent 5000 Booster Plus) 1 appl dental BID fluticasone propion-salmeterol 250-50 mcg/dose (Advair Diskus) 1 ea inhalation BID fluticasone propionate 50 mcg/actuation 2 sprays intranasal BID fluticasone propionate 50 mcg/actuation (Flonase Allergy Relief) 2 sprays intranasal DAILY gabapentin 200 mg PO BID guaifenesin (Siltussin SA) 200 mg PO Q4H PRN hydralazine 50 mg PO TID hydroxyzine pamoate 50 mg PO DAILY PRN lactase (Lactaid) 3,000 units PO TIDWM PRN lancets (OneTouch UltraSoft 2 Lancet) test once daily metformin 500 mg PO BID methylcellulose (laxative) (Citrucel) 1,000 mg PO DAILY gclysris-irkwrpbsnIy-ifawdlrkB 3.5-400-5,000 hk-qbjw-vtjn (Triple Antibiotic) 1 appl topical BID nystatin 1 appl topical TID PRN ondansetron 4 mg PO Q6H PRN propranolol 20 mg PO TID@0800,1600,2000 90 days risperidone 3 mg PO BID sennosides (senna) 17.2 mg PO DAILY PRN tirzepatide (Mounjaro) 2.5 mg (0.5 mL) subcut QWEEK 4 weeks Tobacco use date assessed: 01/02/24 Dental Screening Dental Screen Date: 01/02/24 HPI ED 12/23/23 falling HPI Details 53-year-old morbidly obese male with men [place] behavior problem. He is diabetic with hypercholesterolemia hypertension schizophrenia with cerebellar ataxia. Patient comes in for follow-up last seen in 12/05/2023. Patient was recently seen by the Nephrology diagnosis of chronic kidney disease stage 2 blood pressure under control discontinued Lasix, lisinopril. Had a recent ER visit for right ankle pain after fall. X-ray of the chest showing basilar radiopacity question of infectious versus atelectasis, right knee x-ray no fracture knee joint effusion, right ankle no fracture chronic ligament injury multi joint arthritic changes patient was prescribed amoxicillin and doxycycline [facility] Medical History Leg swelling Ankle pain, left Feeling suicidal Tinea cruris Atrial flutter Atrial fib/flutter, transient A-fib Arrhythmia Abnormal EKG Contusion of left ankle Annual physical exam Abdominal pain Back pain Positive colorectal cancer screening using Cologuard test Precordial chest pain Hospital discharge follow-up Chest pain Right ankle pain Musculoskeletal chest pain Left-sided chest pain Back pain Fall Acute kidney injury Gait instability Suicidal ideation COVID-19 Hypomagnesemia Diarrhea Abdominal pain Left ankle sprain Seizure disorder Hypertension Anxiety Hyponatremia Cerebellar ataxia Anemia Lactose intolerance Vertigo Asthma Mental disability Type 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 Proteinuria Hyperlipidemia LDL goal <100 Essential hypertension Surgical History Hx of colonoscopy History of orchiectomy Family History Father Myocardial infarction CVD (cardiovascular disease) Diabetes mellitus Mother Diabetes mellitus HTN (hypertension) Brother In good health Sister In good health Social History Household Members: Other Household Members Other:: from detention Housing: Other Housing Other:: detention Do you presently have visiting nurse or other home services: Yes Alcohol intake: never 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 Patient Tobacco Use Status: Never used Tobacco e-Cigarette/Vaping Use: Never Used Second Hand Smoke Exposure: No Advance Directives Date on File: 05/23/21 service: No Current occupational status: disabled Cognitive needs: Yes (walker) Hearing needs: No Vision needs: Yes (glasses) Questionnaire Thrive Questionnaire Date Thrive assessed: 11/14/23 AUDIT C Alcohol Use Questionnaire (AUDIT-C) 1. How often do you have a drink containing alcohol?: Never 2. How many drinks containing alcohol do you have on a typical day when you are drinking?: 1 or 2 (0) 3. How often do you have six or more drinks on one occasion?: Never Total Score: 0 Score Reviewed/Action Taken: Yes CHANI-7 AMB Questionnaire CHANI-7 Date CHANI - 7 assessed: 11/14/23 Source: Developed by Drs. Wellington López, Monica Jackson, Ray Nguyen and colleagues, with an educational perez from [employer]. Physical exam (Primary Care) Vital Signs: Last Vital Signs Pulse 74 01/02/24 13:06 BP 140/80 H 01/02/24 13:06 Pulse Ox 98 01/02/24 13:06 Oxygen Delivery Method Room Air 01/02/24 13:06 BMI result Body Mass Index 41.6 Tobacco/Smoking Status: Tobacco use Status Tobacco use date assessed 01/02/24 01/02/24 13:13 Patient Tobacco Use Status Never used Tobacco 01/02/24 13:13 e-Cigarette/Vaping Use Never Used 01/02/24 13:13 Thrive Assessment: Date of Thrive Assessment Date Thrive assessed 11/14/23 01/02/24 13:13 Const General: alert; No acute distress Eyes Conjunctivae: conjunctivae normal Resp Auscultation: clear to auscultation bilaterally Cardio Rate: regular rate Rhythm: regular rhythm GI Inspection: Yes normal to inspection Extrem General: Yes normal to inspection and No edema Assessment and Plan Assessment & Plan (1) Ankle pain, left: Code(s): M25.572 - Pain in left ankle and joints of left foot Plan: X-ray done showing negative results for any fracture. needs to move and exercise (2) Type 2 diabetes mellitus with hyperglycemia: Code(s): E11.65 - Type 2 diabetes mellitus with hyperglycemia Plan: Decrease the amount of carbohydrate intake, pasta, bread, rice and potatoes are all sugar and that is aside from all the sweet stuff, remember that fruits are good but they are Sweet also. Presently on Mounjaro metformin Jardiance (3) Cerebellar ataxia: Code(s): G11.9 - Hereditary ataxia, unspecified Plan: Supportive management (4) Essential hypertension: Code(s): I10 - Essential (primary) hypertension Plan: Continue with blood pressure medication. Decrease salt intake and exercise lisinopril has been discontinued (5) Pneumonia: Code(s): J18.9 - Pneumonia, unspecified organism Plan: Patient has been prescribed antibiotic and finishing. (6) Urinary incontinence: Code(s): R32 - Unspecified urinary incontinence (7) Right ankle pain: Code(s): M25.571 - Pain in right ankle and joints of right foot Orders: Orders PT Evaluation and Treatment Today M25.571 - Pain in right ankle and joints of right foot, R29.898 - Other symptoms and signs involving the musculoskeletal system US bladder Today R32 - Unspecified urinary incontinence Medications: New blood sugar diagnostic ([employer] Verio test strips) As directed check blood sugar TID 100 ea 12RF E11.29 - Type 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 Changed From tirzepatide (Mounjaro) 2.5 mg (0.5 mL) subcut QWEEK 4 weeks 2 mL 0RF E11.65 - Type 2 diabetes mellitus with hyperglycemia To tirzepatide 5 mg (0.5 mL) subcut QWEEK 4 weeks 2 mL 1RF E11.65 - Type 2 diabetes mellitus with hyperglycemia Discontinued blood sugar diagnostic ([employer] Ultra Test strips) Discontinued Reason: Doctor's Order test once daily 100 ea 5RF E11.65 - Type 2 diabetes mellitus with hyperglycemia Coding Level of Care Code Est Pt Level 4 (44331) Diagnoses Ankle pain, left M25.572 Type 2 diabetes mellitus with hyperglycemia E11.65 Cerebellar ataxia G11.9 Essential hypertension I10 Pneumonia J18.9 Urinary incontinence R32 Right ankle pain M25.571
== END 2024-01-02 13:42 | disposition home or self-care (01) ==
PROVIDERS: PCP Internal Medicine; Visit Provider Internal Medicine
DX: E11.65 Type 2 diabetes mellitus with hyperglycemia (principal); G11.9 Hereditary ataxia, unspecified; M25.572 Pain in left ankle and joints of left foot; I10 Essential (primary) hypertension; J18.9 Pneumonia, unspecified organism; R32 Unspecified urinary incontinence; M25.571 Pain in right ankle and joints of right foot
CPT/HCPCS: 99214

== ENCOUNTER 2024-01-07 14:17 | Outpatient (REF) | payer MEDICARE, MEDICAID, SELFPAY ==
--- NOTE | ~2024-01-07 | MR_ITS ---
EXAMINATION: MR LUMBAR SPINE WITHOUT CONTRAST CLINICAL INFORMATION: Leg weakness and pain. Difficulty ambulating. COMPARISON: X-ray lumbar spine from 11/25/2020. TECHNIQUE: Multiplanar, multisequence imaging was obtained. FINDINGS: VERTEBRAL BODIES AND PARASPINAL STRUCTURES: The marrow signal is heterogeneous with regions of fatty change. Bridging endplate osteophytes are visible anteriorly at the lower thoracic levels. No compression fracture is seen. Alignment is anatomic. There is a mild leftward curvature of the lumbar spine. The paraspinal soft tissues appear normal. There is an indeterminate heterogeneous 1.7 cm subdermal cystic lesion in the midline at the L5 level, possibly representing a sebaceous cyst. There are mild degenerative changes of the sacroiliac joints. CONUS MEDULLARIS AND CAUDA EQUINE: The distal cord, conus tip, and cauda equina nerve roots appear normal. Epidural lipomatosis contributes to varying degrees of multilevel thecal sac distortion. SPINAL LEVELS: L1-L2: No disc disease, central canal stenosis, or foraminal narrowing. Mild epidural fat prominence slightly distorts the thecal sac. L2-L3: Broad-based central to right paracentral disc protrusion and mild facet arthropathy without central canal stenosis. The disc protrusion distorts the ventral thecal sac. Epidural lipomatosis results in moderate thecal sac distortion. Patent foramina. L3-L4: Mild diffuse disc bulge with bulging disc mildly impressing upon the extraforaminal right L3 nerve root. Hypertrophic facet arthropathy with epidural lipomatosis resulting in mild thecal sac distortion. No central canal stenosis. Patent foramina. L4-L5: Moderate facet degeneration and mild disc bulge with krmd-qs-rqonqfho central canal stenosis. Epidural fat prominence results in moderate thecal sac distortion. Very mild foraminal narrowing as well. L5-S1: Mild disc bulge and ctfqpmoy-pf-ihlybh facet arthropathy. No central canal stenosis. Epidural lipomatosis results in wrvp-lj-tqtfxgsk thecal sac distortion. Osseous spurring xjvpkqxt-kh-unurhglr encroaches upon the neural foramina with mild distortion of the exiting left L5 nerve root. MR/MR lumbar spine wo con IMPRESSION: 1. Broad-based central to right paracentral disc protrusion at L2-L3 with epidural lipomatosis resulting in moderate thecal sac distortion. 2. Bulging disc impresses upon the exiting right L3 nerve root at the L3-L4 level. 3. Moderate facet degeneration and iyis-tx-wafaefvf central canal stenosis at L4-L5. Epidural lipomatosis with moderate thecal sac distortion. 4. Ffxmrtzg-yk-gdoatk facet degeneration at L5-S1 with osseous spurring encroaching upon the neural foramina resulting in mild distortion of the exiting left L5 nerve root. 5. Indeterminate 1.7 cm subdermal cystic lesion in the midline at the L5 level which may represent a sebaceous cyst.
== END 2024-01-07 14:18 | disposition home or self-care (01) ==
LOC: HO.MRI 14:17
PROVIDERS: PCP Internal Medicine; Visit Provider Internal Medicine
DX: R15.9 Full incontinence of feces (principal); R20.0 Anesthesia of skin; R29.898 Other symptoms and signs involving the musculoskeletal system; R32 Unspecified urinary incontinence
CPT/HCPCS: 72148

== ENCOUNTER 2024-01-11 22:16 | Emergency (ER) | payer MEDICARE, MEDICAID, SELFPAY ==
--- NOTE | ~2024-01-11 | XR_ITS ---
EXAMINATION: XR ANKLE, RIGHT XR FOOT, RIGHT CLINICAL INDICATION: Ankle pain, foot fracture COMPARISON: 12/23/2023 TECHNIQUE: 2 views of the right ankle. 2 views of the right foot. FINDINGS: Limited evaluation due to patient positioning, especially in the foot. Alignment across the ankle appears stable, with increased distance between the lateral aspect of the talar dome and distal tibia redemonstrated. No definite acute fracture is seen. Redemonstrated calcaneal spurring and mild degenerative changes in the foot. Diffuse soft tissue swelling is noted. XR/XR foot RT 2V IMPRESSION: Limited evaluation due to patient positioning. No definite acute fracture identified. Increased distance between the lateral aspect of the talar dome and distal tibia is similar to prior and could reflect sequelae of chronic ligamentous injury.
--- NOTE | ~2024-01-11 | XR_ITS ---
EXAMINATION: XR CHEST CLINICAL INFORMATION: Chest pain COMPARISON: 12/23/2023 TECHNIQUE: Frontal view of the chest was obtained. FINDINGS: Lung volumes are symmetric. No focal consolidation is seen. No evidence of pneumothorax, significant pleural effusion, or overt pulmonary edema. The cardiomediastinal silhouette is stable. No acute osseous findings are seen. XR/XR chest 1V IMPRESSION: No acute cardiopulmonary findings.
--- NOTE | ~2024-01-11 | XR_ITS ---
EXAMINATION: XR ANKLE, RIGHT XR FOOT, RIGHT CLINICAL INDICATION: Ankle pain, foot fracture COMPARISON: 12/23/2023 TECHNIQUE: 2 views of the right ankle. 2 views of the right foot. FINDINGS: Limited evaluation due to patient positioning, especially in the foot. Alignment across the ankle appears stable, with increased distance between the lateral aspect of the talar dome and distal tibia redemonstrated. No definite acute fracture is seen. Redemonstrated calcaneal spurring and mild degenerative changes in the foot. Diffuse soft tissue swelling is noted. XR/XR ankle RT 2V IMPRESSION: Limited evaluation due to patient positioning. No definite acute fracture identified. Increased distance between the lateral aspect of the talar dome and distal tibia is similar to prior and could reflect sequelae of chronic ligamentous injury.
--- NOTE | ~2024-01-11 | XR_ITS ---
EXAMINATION: XR KNEE, RIGHT CLINICAL INFORMATION: Right knee pain COMPARISON: 12/23/2023 TECHNIQUE: Two views of the right knee. FINDINGS: Osseous alignment is anatomic. Joint spaces appear relatively well-preserved. No acute fracture is seen. No significant joint effusion. Mild subcutaneous reticulation/edema noted. XR/XR knee RT 2V IMPRESSION: No acute osseous findings. Mild subcutaneous reticulation/edema.
[2024-01-11 22:25] VITALS: BP 120/82; PULSE 90; O2SAT 98
[2024-01-11 22:31] VITALS: BP 122/65; PULSE 91; RESP 16; TEMP 36.6; O2SAT 97; BMI 42.6
--- NOTE | 2024-01-11 22:43 | ECG_ITS ---
Test Reason : CHEST PAIN Blood Pressure : / mmHG Vent. Rate : 092 BPM Atrial Rate : 092 BPM P-R Int : 170 ms QRS Dur : 088 ms QT Int : 376 ms P-R-T Axes : 053 -15 025 degrees QTc Int : 464 ms Sinus rhythm with Premature atrial complexes Inferior infarct , age undetermined Abnormal ECG When compared with ECG of 23-DEC-2023 09:49, Premature atrial complexes are now Present Referred By: Elier Campos Electronically Signed By:Oni Mcneil
--- NOTE | 2024-01-11 22:58 | ED.CHESTPAIN ---
HPI - Chest Pain General Chief Complaint: Chest Pain Stated Complaint: SI FROM NURSING HOME Time Seen by Provider: 01/11/24 22:26 Source: patient Mode of arrival: ambulatory Limitations: no limitations History of Present Illness HPI narrative: 53 yold male with pmh of DM, CKD,, and high cholesterol, hyponatremia presents to the ED suicidal ideation and chest pain beinning today. patient states hearing voices telling him to kill himslef. Patient denies any pleurisy, calf pain, leg swelling, recent long travel, recent surgery. Patient denies any shortness of breath. patient states right knee and ankle pain chronic. Related Data Home Medications Medication Instructions Recorded Confirmed fluticasone propionate 50 2 spray intranasal BID 11/19/22 01/02/24 mcg/actuation nasal spray,suspension divalproex 500 mg tablet,extended 1,000 mg PO BID 06/10/23 01/02/24 release 24 hr fluticasone 250 mcg-salmeterol 50 1 ea inhalation BID 06/10/23 01/02/24 mcg/dose blistr powdr for inhalation (Advair Diskus) gabapentin 100 mg capsule 200 mg PO BID 06/10/23 01/02/24 hydralazine 50 mg tablet 50 mg PO TID 06/10/23 01/02/24 risperidone 3 mg tablet 3 mg PO BID 06/10/23 01/02/24 albuterol sulfate 90 mcg/actuation 2 puff inhalation Q6H PRN Wheezing 07/29/23 01/02/24 aerosol inhaler ferrous sulfate 325 mg (65 mg 325 mg PO BID 07/29/23 01/02/24 iron) tablet guaifenesin 100 mg/5 mL oral 200 mg PO Q4H PRN Cough 07/29/23 01/02/24 liquid (Siltussin SA) ondansetron 4 mg disintegrating 4 mg PO Q6H PRN Nausea And Vomiting 07/29/23 01/02/24 tablet hydroxyzine pamoate 50 mg capsule 50 mg PO DAILY PRN 10/13/23 01/02/24 AGITATION/ANXIETY neomycin-bacitracn Zn-polymyxn 3.5 1 appl topical BID 10/13/23 01/02/24 mg-400 unit-5,000 unit top oint pkt (Triple Antibiotic) fluoride (sodium) 1.1 % dental 1 appl dental BID 12/23/23 01/02/24 paste (PreviDent 5000 Booster Plus) methylcellulose (laxative) 500 mg 1,000 mg PO DAILY 12/23/23 01/02/24 tablet (Citrucel) sennosides 8.6 mg tablet (senna) 17.2 mg PO DAILY PRN Constipation 12/23/23 01/02/24 Previous Rx's Medication Instructions Recorded acetaminophen 325 mg tablet 650 mg (2 x 325 mg) PO Q4H PRN 06/11/22 fever or pain 90 days #180 tabs blood-glucose meter (OneTouch #1 ea 06/17/23 Ultra2 Meter) lancets 30 gauge (OneTouch #100 ea 06/17/23 UltraSoft 2 Lancet) bismuth subsalicylate 262 mg/15 mL 524 mg (30 mL) PO QID PRN diarrhea 08/01/23 oral suspension (Pepto-Bismol) 7 days #1,200 mL nystatin 100,000 unit/gram topical 1 appl topical TID PRN Rash #60 08/04/23 powder grams empagliflozin 25 mg tablet 25 mg PO DAILY #30 tabs 08/18/23 (Jardiance) alvarez.stocking,knee,reg,xlrg #12 ea 08/27/23 atorvastatin 10 mg tablet 10 mg PO BEDTIME #90 tabs 09/24/23 metformin 500 mg tablet 500 mg PO BID #180 tabs 09/24/23 propranolol 20 mg tablet 20 mg PO TID@0800,1600,2000 90 09/24/23 days #270 tabs dextromethorphan polistirex 30 10 ml PO Q12H PRN cough #89 mL 10/15/23 mg/5 mL oral susp ext.release 12hr (Delsym 12 hour) lactase 3,000 unit tablet (Lactaid) 3,000 unit PO TIDWM PRN Lactose 11/14/23 Intolerance #30 tabs cyanocobalamin (vitamin B-12) 1,000 mcg PO BEDTIME #90 tabs 12/05/23 1,000 mcg tablet cholecalciferol (vitamin D3) 25 25 mcg PO DAILY #30 tabs 12/16/23 mcg (1,000 unit) tablet doxycycline hyclate 100 mg tablet 100 mg PO BID 7 days #14 tabs 12/23/23 fluticasone propionate 50 2 spray intranasal DAILY #16 grams 12/23/23 mcg/actuation nasal spray,suspension (Flonase Allergy Relief) esomeprazole magnesium 40 mg 40 mg PO DAILY #30 caps 12/26/23 capsule,delayed release (Nexium) blood sugar diagnostic (OneTouch #100 ea 01/02/24 Verio test strips) tirzepatide 5 mg/0.5 mL 5 mg (0.5 mL) subcut QWEEK 4 weeks 01/02/24 subcutaneous pen injector #2 mL Allergies Allergy/AdvReac Type Severity Reaction Status Date / Time Sulfa (Sulfonamide Allergy Severe CHAVEZ Verified 01/02/24 13:07 Antibiotics) ALICIA REACTION, Chavez Alicia trimethoprim Allergy Mild UNKNOWN Verified 01/02/24 13:07 lactose AdvReac Mild STOMACH Verified 01/02/24 13:07 UPSET Review of Systems Review of Systems: Chest pain and suicidal Yes all other systems are reviewed and are negative [facility] Past Medical History Medical History Leg swelling Ankle pain, left Feeling suicidal Tinea cruris Atrial flutter Atrial fib/flutter, transient A-fib Arrhythmia Abnormal EKG Contusion of left ankle Annual physical exam Abdominal pain Back pain Positive colorectal cancer screening using Cologuard test Precordial chest pain Hospital discharge follow-up Chest pain Right ankle pain Musculoskeletal chest pain Left-sided chest pain Back pain Fall Acute kidney injury Gait instability Suicidal ideation COVID-19 Hypomagnesemia Diarrhea Abdominal pain Left ankle sprain Seizure disorder Hypertension Anxiety Hyponatremia Cerebellar ataxia Anemia Lactose intolerance Vertigo Asthma Mental disability Type 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 Proteinuria Hyperlipidemia LDL goal <100 Essential hypertension Surgical History Hx of colonoscopy History of orchiectomy Family History Family History Father Myocardial infarction CVD (cardiovascular disease) Diabetes mellitus Mother Diabetes mellitus HTN (hypertension) Brother In good health Sister In good health Social History Social History Household Members: Other Household Members Other:: from detention Housing: Other Housing Other:: detention Do you presently have visiting nurse or other home services: Yes Alcohol intake: never 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 Patient Tobacco Use Status: Never used Tobacco Smoked in Last 30 Days: No e-Cigarette/Vaping Use: Never Used Second Hand Smoke Exposure: No Use of substances other than those prescribed or required for medical reasons: No Advance Directives: Yes Advance Directives on File: Yes Advance Directives Date on File: 05/23/21 service: No Current occupational status: disabled Cognitive needs: Yes (walker) Hearing needs: No Vision needs: Yes (glasses) Physical Exam Vital Signs: Vital Signs: Last Vital Signs Temp 98.3 F 01/12/24 03:50 Pulse 91 01/12/24 03:50 Resp 20 01/12/24 03:50 BP 119/79 01/12/24 03:50 Pulse Ox 98 01/12/24 03:50 O2 Del Method Room Air 01/12/24 03:50 BMI result Body Mass Index 42.6 Const: General: cooperative, healthy appearing, comfortable, no acute distress, well developed, alert, awake and Physically active Orientation/consciousness: oriented to person, oriented to place, oriented to time and patient oriented x3 HEENT: Head: Yes normal to inspection, Yes No palpable skull fracture present, Yes normocephalic, Yes atraumatic and No abrasion Eyes: General: appearance normal, both eyes and all related structures Neck: Neck: Yes normal visual inspection, Yes full ROM, Yes no lymphadenopathy, Yes no meningeal signs, Yes trachea midline, Yes supple, No anterior neck swelling and No tender Chest: Chest palpation & inspection: normal inspection of the chest and normal palpation of entire chest wall Resp: Effort & Inspection: normal respiratory effort and able to speak in complete sentences Auscultation: clear to auscultation bilaterally Cardio: Jugular venous distension: no JVD Heart sounds: S1 normal heart sound present and S2 normal heart sound present GI: Inspection: Yes normal to inspection Palpation (GI): Soft to palpation, not firm, nontender, no guarding and not rigid : General: No CVA tenderness and Yes no CVA tenderness Back/Spine/Pelvis: Back: no CVA tenderness, No CVA tenderness and No back tenderness Skin: General skin exam: no rashes or lesions noted, elasticity normal and turgor normal Neuro: General: oriented to person, oriented to place, oriented to time, patient oriented x3, gait normal, tone normal, moves all extremities, Normal light touch and pain sensation, no meningeal signs, no focal motor deficits, CN's II-XI intact bilaterally and normal sensation to monofilament Extrem: Other: Bilateral lower extremity negative for swelling, pitting edema or calf tenderness. General: Yes normal to inspection and Yes full ROM Knee images: 1. Positive for slight knee tenderness. Negative ecchymosis, crepitus, deformity, or swelling. Motor/neuro/vascular exam of extremity intact. Negative for any calf pain, leg swelling,or pitting edema. Ankle/foot/toe images: 1. Slight tenderness. Negative for swelling, crepitus, ecchymosis, or deformity. Motor/neuro/vascular exam intact. Course Course Course Narrative: Physician observation continued. VS stable, labs and xrays at baseline, pending CARE team though his compalints are chronic and he typically is seen for this and his detention is well prepared to care for him with his chronic complaints of SI I suspect he will be DC home stable for DC - CARE team Medications Administered Discontinued Medications Generic Name Dose Route Start Last Admin Trade Name Freq PRN Reason Stop Dose Admin Acetaminophen 650 mg 01/12/24 03:58 01/12/24 04:04 Acetaminophen 325 Mg Tablet PO 01/12/24 03:59 650 mg ONCE ONE Administration Medical Decision Making Medical Decision Making [facility] Narrative: 53-year-old male history of hypertension presents to ED for suicidal ideation and chest pain beginning today. Patient has plans to choke himself or someone else. Labs ordered. Care team consult placed. 2:44pm: Labs pending. Bilateral lower extremity negative for swelling, pitting edema, calf tenderness. Bilateral lower extremity negative for signs of cellulitis, fracture, arterial occlusion, comarptment syndrome, or DVT. Signed out to Dr. Fraire Differential Diagnosis Differential Diagnoses: The differential diagnosis associated with the presentation includes (Myocardial infarction, pneumonia, suicidal, depression,) Admission/Observation Consideration of admission/observation: Escalation of care including admission/observation considered Consult Healthcare Provider Management of the patient was discussed with: Medical Service Representative (Care team consult) Lab Data [facility] Lab Attestation statement: I reviewed the patient's lab results. 01/12/24 06:38 01/12/24 01:24 Labs: Lab Results 01/12/24 01/12/24 01/12/24 Range/Units 00:21 01:24 06:38 WBC 8.7 (4.8-10.8) X10*3/uL RBC 3.54 L (4.60-5.80) X10*6/uL Hgb 11.2 L (14.0-18.0) g/dl Hct 32.9 L (42.0-52.0) % MCV 92.9 (80.0-98.0) fL MCH 31.6 (27.0-33.0) pg MCHC 34.0 (31.0-36.0) g/dl RDW 13.4 (11.0-16.0) % Plt Count 91 L (160-400) X10*3/uL MPV 9.4 (9.4-12.4) fL Immature Gran % (Auto) 0.8 H (0.0-0.4) % Neut % (Auto) 70.4 (45-73) % Lymph % (Auto) 16.3 L (20-40) % [place] % (Auto) 12.1 H (2-11) % Eos % (Auto) 0.2 (0-4) % Baso % (Auto) 0.2 (0-2) % Lymph # (Auto) 1.4 (1.2-4.9) X10*3/uL [place] # (Auto) 1.1 (0.1-1.2) X10*3/uL Eos # (Auto) 0.0 (0.0-0.4) X10*3/uL Baso # (Auto) 0.0 (0.0-0.2) X10*3/uL Abs Immat Gran (auto) 0.07 H (0.00-0.03) X10*3/uL Absolute Neuts (auto) 6.1 (2.0-8.3) x10*3/uL Absolute Nucleated RBC 0.000 (0.0-0.012) X10*3/uL Nucleated RBC % (auto) 0.0 (0.0-0.2) /100WBC PT 11.4 (11.1-13.3) SEC INR 0.9 (0.9-1.1) APTT 31.8 (26.0-36.8) SEC Sodium 138 (135-145) mmol/L Potassium 4.2 (3.3-5.1) mmol/L Chloride 106 (96-108) mmol/L Carbon Dioxide 20 L (22-29) mmol/L Anion Gap 16 (12-20) BUN 21 H (9-16) mg/dL Creatinine 1.00 (0.5-1.4) mg/dL Estim Creat Clear Calc 101.8 Estimated GFR > 60 Random Glucose 111 (60-115) mg/dL Calcium 9.0 (8.4-10.2) mg/dL Total Bilirubin 0.4 (0.0-1.0) mg/dL AST 15 (5-37) U/L ALT 13 (0-40) U/L Alkaline Phosphatase 68 (39-117) U/L Troponin I High Sens 6.5 D (<3.5-35.0) ng/L B-Natriuretic Peptide 100 (<100) pg/mL Total Protein 6.6 (6.5-8.0) g/dL Albumin 3.2 L (3.5-5.0) g/dL Urine Color Yellow Urine Appearance Clear Urine pH 6.0 (5.0-9.0) Ur Specific [place] 1.025 (1.005-1.025) Urine Protein Trace (Neg-Trace) mg/dL Urine Glucose (UA) >=1000 H (Negative) mg/dL Urine Ketones 15 (Negative) mg/dL Urine Blood Negative (Negative) Urine Nitrite Negative (Negative) Ur Leukocyte Esterase Small (1+) H (Negative) Urine RBC 0-2 (0-2) /HPF Urine WBC 21-50 H (0-5) /HPF Ur Squamous Epith Cells 3-5 (0-2) /HPF Urine Bacteria None Seen (None Seen) Hyaline Casts 0-2 (0-2) /LPF Urine Opiates Screen Not Detected (Not Detect) Urine Fentanyl Screen Not Detected (Not Detect) Ur Barbiturates Screen Not Detected (Not Detect) Ur Phencyclidine Scrn Not Detected (Not Detect) Ur Amphetamines Screen Not Detected (Not Detect) U Benzodiazepines Scrn Not Detected (Not Detect) Urine Cocaine Screen Not Detected (Not Detect) U Marijuana (THC) Screen Not Detected (Not Detect) Ethyl Alcohol < 10 mg/dL Independent Interpretation I performed an independent interpretation of an: EKG (Sinus rhythm with premature atrial complexes. Negative STEMI. Ventricular rate 92.) Independent Historian Clinical information obtained from an independent historian. History obtained from or confirmed by: EMS and Other (patient) External Record Review External record reviewed: Other (Prior visits) Discharge Plan Discharge Clinical Impression: Chest pain, Depression Patient Disposition: Still a Patient Instructions: Chest Pain (ED), Depression (ED) Additional Instructions: please follow up with your outpatient mental health providers. Prescriptions: No Action acetaminophen 325 mg tablet 650 mg PO Q4H PRN (Reason: fever or pain) 90 Days Qty: 180 2RF (DME) blood-glucose meter [OneTouch Ultra2 Meter] Misc See Rx Instructions .Route Qty: 1 0RF Rx Instructions: test once daily (DME) lancets [OneTouch UltraSoft 2 Lancet] 30 gauge misc See Rx Instructions .Route Qty: 100 5RF Rx Instructions: test once daily nystatin 100,000 unit/gram powder 1 appl TOPICAL TID PRN (Reason: Rash) Qty: 60 0RF (DME) alvarez.stocking,knee,reg,xlrg Misc See Rx Instructions .Route Qty: 12 0RF Rx Instructions: As directed 10-20 mm HG propranolol 20 mg tablet 20 mg PO TID@0800,1600,2000 90 Days Qty: 270 3RF atorvastatin 10 mg tablet 10 mg PO BEDTIME Qty: 90 1RF metformin 500 mg tablet 500 mg PO BID Qty: 180 1RF dextromethorphan polistirex [Delsym 12 hour] 30 mg/5 mL suspension,extended rel 12 hr 10 ml PO Q12H PRN (Reason: cough) Qty: 89 0RF cyanocobalamin (vitamin B-12) 1,000 mcg tablet 1,000 mcg PO BEDTIME Qty: 90 0RF cholecalciferol (vitamin D3) 25 mcg (1,000 unit) tablet 25 mcg PO DAILY Qty: 30 11RF esomeprazole magnesium [Nexium] 40 mg capsule,delayed release(DR/EC) 40 mg PO DAILY Qty: 30 3RF fluticasone propionate 50 mcg/actuation spray,suspension 2 spray INTRANASAL BID hydroxyzine pamoate 50 mg capsule 50 mg PO DAILY PRN (Reason: AGITATION/ANXIETY) Triple Antibiotic 3.5-400-5,000 [id number] Ointment In Packet 1 appl TOPICAL BID risperidone 3 mg tablet 3 mg PO BID divalproex 500 mg tablet extended release 24 hr 1,000 mg PO BID hydralazine 50 mg tablet 50 mg PO TID gabapentin 100 mg capsule 200 mg PO BID fluticasone propion-salmeterol [Advair Diskus] 250-50 mcg/dose blister with device 1 ea inhalation BID guaifenesin [Siltussin SA] 100 mg/5 mL Liquid 200 mg PO Q4H PRN (Reason: Cough) ferrous sulfate 325 mg (65 mg iron) Tablet 325 mg PO BID albuterol sulfate 90 mcg/actuation Hfa Aerosol Inhaler 2 puff INHALATION Q6H PRN (Reason: Wheezing) ondansetron 4 mg Tablet,Disintegrating 4 mg PO Q6H PRN (Reason: Nausea And Vomiting) sennosides [senna] 8.6 mg Tablet 17.2 mg PO DAILY PRN (Reason: Constipation) Citrucel 500 mg Tablet 1,000 mg PO DAILY fluoride (sodium) [PreviDent 5000 Booster Plus] 1.1 % Paste 1 appl DENTAL BID fluticasone propionate [Flonase Allergy Relief] 50 mcg/actuation spray,suspension 2 spray intranasal DAILY Qty: 16 0RF Rx Instructions: administer into each nostril doxycycline hyclate 100 mg tablet 100 mg PO BID 7 Days Qty: 14 0RF Jardiance 25 mg tablet 25 mg PO DAILY Qty: 30 9RF bismuth subsalicylate [Pepto-Bismol] 262 mg/15 mL suspension 524 mg PO QID PRN (Reason: diarrhea) 7 Days Qty: 1200 0RF lactase [Lactaid] 3,000 unit tablet 3,000 unit PO TIDWM PRN (Reason: Lactose Intolerance) Qty: 30 11RF Rx Instructions: take at the start of drinking milk only (DME) OneTouch Verio test strips Strip See Rx Instructions .Route Qty: 100 12RF Rx Instructions: As directed check blood sugar TID Mounjaro 5 mg/0.5 mL pen injector 5 mg subcut QWEEK 28 Days Qty: 2 1RF
[2024-01-12 00:30] LABS: Appearance Urine Clear; Color Urine Yellow; Glucose Urine UA >=1000 mg/dL (Negative); Leukocyte Esterase Urine Small (1+) (Negative); Nitrite Urine Negative (Negative); Specific Gravity - Urine 1.025 (1.005-1.025); UMIC TRIGGER UACC YES; Urine Blood Negative (Negative); Urine Ketones 15 mg/dL (Negative); Urine Protein Trace mg/dL (Neg-Trace)
[2024-01-12 00:32] LABS: Bacteria Urine None Seen (None Seen); Hyaline Casts Urine 0-2 /LPF (0-2); RBC Urine 0-2 /HPF (0-2); UACC Culture Trigger YES; WBC Urine 21-50 /HPF (0-5)
[2024-01-12 00:37] LABS: Amphetamine Screen Urine Not Detected (Not Detect); Barbiturates, Urine Not Detected (Not Detect); Benzodiazepines Screen Urine Not Detected (Not Detect); Cannabinoid Screen Urine Not Detected (Not Detect); Cocaine Screen Urine Not Detected (Not Detect); Fentanyl, urine Not Detected (Not Detect); Opiate Screen Urine Not Detected (Not Detect); Phencyclidine Screen Urine Not Detected (Not Detect)
[2024-01-12 01:52] LABS: Alanine Aminotransferase 13 U/L (0-40); Albumin Level 3.2 g/dL (3.5-5.0); Alkaline Phosphatase 68 U/L (39-117); Anion Gap 16 (12-20); Aspartate Amino Transferase 15 U/L (5-37); Bilirubin Total 0.4 mg/dL (0.0-1.0); Blood Urea Nitrogen 21 mg/dL (9-16); Carbon Dioxide 20 mmol/L (22-29); Chloride 106 mmol/L (96-108); Creatinine Clr Calc Pharmacy 101.8; Estimated Glomerular Filt Rate > 60; Ethanol < 10 mg/dL; Glucose Random 111 mg/dL (60-115); Potassium 4.2 mmol/L (3.3-5.1); Sodium 138 mmol/L (135-145); Total Protein 6.6 g/dL (6.5-8.0)
[2024-01-12 02:38] LABS: Troponin-I High Sensitivity 6.5 ng/L (<3.5-35.0)
[2024-01-12 03:50] VITALS: BP 119/79; PULSE 91; RESP 20; TEMP 36.8; O2SAT 98
[2024-01-12] MEDS: Acetaminophen 325 MG TABLET 650 MG PO (04:04)
[2024-01-12 06:49] LABS: Basophils Percent Auto 0.2 % (0-2); Eosinophils Percent Auto 0.2 % (0-4); Hematocrit 32.9 % (42.0-52.0); Hemoglobin 11.2 g/dl (14.0-18.0); Imm Gran Abs Auto 0.07 X10*3/uL (0.00-0.03); Imm Gran Pct Auto 0.8 % (0.0-0.4); Lymphocytes Absolute Auto 1.4 X10*3/uL (1.2-4.9); Lymphocytes Percent Auto 16.3 % (20-40); Mean Corpuscular Hemoglobin 31.6 pg (27.0-33.0); Mean Corpuscular Volume 92.9 fL (80.0-98.0); Mean Platelet Volume 9.4 fL (9.4-12.4); Monocytes Absolute Auto 1.1 X10*3/uL (0.1-1.2); Monocytes Percent Auto 12.1 % (2-11); Neutrophils Absolute Auto 6.1 x10*3/uL (2.0-8.3); Neutrophils Percent Auto 70.4 % (45-73); Red Blood Count 3.54 X10*6/uL (4.60-5.80); Red Cell Distribution Width 13.4 % (11.0-16.0); White Blood Count 8.7 X10*3/uL (4.8-10.8)
[2024-01-12 06:58] LABS: Platelet Count 91 X10*3/uL (160-400)
[2024-01-12 06:59] LABS: MANUAL DIFF FLAG NO
[2024-01-12 07:04] LABS: INTERNATIONAL NORM RATIO 0.9 (0.9-1.1); Prothrombin Time 11.4 SEC (11.1-13.3)
[2024-01-12 07:06] LABS: B Type Natriuretic Peptide 100 pg/mL (<100)
[2024-01-12 07:07] LABS: Partial Thromboplastin Time 31.8 SEC (26.0-36.8)
[2024-01-12 07:52] LABS: Glucose, Whole Blood 175 mg/dL (60-115)
--- NOTE | 2024-01-12 08:15 | PC.NURSE ---
Report given to nursing home staff, staff stating they can not pick him up and transportation would need to be booked
[2024-01-12 08:18] VITALS: BP 129/65; PULSE 81; RESP 18; O2SAT 97
--- NOTE | 2024-01-12 08:19 | MHC.EDTECH ---
AM care done ,patient ate 100% of breakfasted and bed lined change and reposition . RN aware
--- NOTE | 2024-01-12 08:50 | PC.NURSE ---
sanitation manager aware of patients return, confirmed return address was [address] [place] [address] in [place] aware. 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
[2024-01-12 10:15] VITALS: BP 148/73; PULSE 79; RESP 17; O2SAT 96
== END 2024-01-12 10:27 | disposition still patient (30) ==
PROVIDERS: Physician Assistant; Emergency Provider Internal Medicine
DX: R07.89 Other chest pain (principal); F33.1 Major depressive disorder, recurrent, moderate; R45.851 Suicidal ideations; R06.02 Shortness of breath; M25.561 Pain in right knee; Z79.899 Other long term (current) drug therapy
CPT/HCPCS: 36415; 71045; 73560; 73600; 73620; 80053; 80307; 81001; 82947; 83880; 84484; 85025; 85610; 85730; 87086; 93005; 99284; 99285

== ENCOUNTER → 2024-01-11 22:43 | Outpatient (BNV) | payer MEDICARE, MEDICAID, SELFPAY | PROVIDERS: Emergency Provider Internal Medicine; Visit Provider Internal Medicine Cardiovascular Disease | DX: R07.9 Chest pain, unspecified (principal) | CPT/HCPCS: 93010 ==

== ENCOUNTER 2024-01-14 18:06 | Emergency (ER) | payer MEDICARE, MEDICAID, SELFPAY ==
--- NOTE | ~2024-01-14 | XR_ITS ---
EXAMINATION: XR WRIST, LEFT CLINICAL INFORMATION: Wrist pain COMPARISON: None available. TECHNIQUE: PA, lateral, oblique, and scaphoid views of the left wrist. FINDINGS: The bones and soft tissues are normal. No fracture. Alignment is anatomic with normal joint spaces. No erosions or abnormal soft tissue calcifications. XR/XR wrist LT min 3V IMPRESSION: Normal left wrist.
--- NOTE | ~2024-01-14 | CT_ITS ---
EXAMINATION: CT HEAD WITHOUT CONTRAST CT CERVICAL SPINE WITHOUT CONTRAST CLINICAL INFORMATION: Fall. COMPARISON: CT head and cervical spine from 08/09/2023. TECHNIQUE: Contiguous axial imaging was performed from the skull base to vertex without intravenous administration of contrast. Contiguous axial imaging was performed from the upper chest through the skull base without intravenous administration of contrast. Coronal and sagittal reformats were obtained at the acquisition workstation. This CT examination was performed using dose optimization techniques as appropriate, variously including the following: *Automated exposure control. *Adjustment of mA and/or kV according to patient size (this includes techniques or standardized protocols for targeted exams where dose is matched to indication/reason for exam; i.e. extremities or head). *Use of iterative reconstruction technique. DLP: 1212 mGy-cm FINDINGS: Head: Moderately motion degraded exam. There is no evidence of acute intracranial hemorrhage or edematous territorial infarction. Shell-white matter differentiation is preserved. A few foci of hypoattenuation in the periventricular and deep white matter are consistent with mild microangiopathy. Proportional prominence of the ventricles and sulcal spaces without evidence of obstructive hydrocephalus. No abnormal mass effect or midline shift. No extra-axial fluid collections. No acute soft tissue or osseous abnormalities. Mild mucosal thickening of the paranasal sinuses. The mastoid air cells and middle ear cavities are clear. Cervical Spine: The atlantooccipital and atlantoaxial articulations remain well aligned. Reversal the normal cervical lordosis centered on C5. Otherwise, there is anatomic alignment of the vertebral bodies and posterior elements. No evidence of acute fracture or subluxation. The vertebral body heights are maintained. Moderate degenerative disc disease from C3-C7. Facet and uncovertebral joint arthropathy leads to osseous encroachment on the neural foramina at C3-C4. Moderate bridging anterior osteophytosis from C4-C7. There is no prevertebral soft tissue swelling. The thyroid gland and remaining cervical soft tissues are within normal limits. The lung apices demonstrate no abnormalities. CT/CT cervical spine wo IV con IMPRESSION: 1. No evidence of acute intracranial hemorrhage or edematous territorial infarction. Mild underlying microangiopathy and generalized cerebral volume loss. 2. No evidence of acute fracture or traumatic subluxation of the cervical spine. Moderate multilevel degenerative spondyloarthropathy of the cervical spine.
--- NOTE | ~2024-01-14 | XR_ITS ---
EXAMINATION: XR LUMBOSACRAL SPINE CLINICAL INFORMATION: Back pain after fall COMPARISON: MRI lumbar spine 12/30/2023, CT abdomen pelvis 10/27/2021 and lumbar spine with sacrum and coccyx 11/25/2020 TECHNIQUE: Three views of the lumbosacral spine. FINDINGS: Vertebral body heights and disc spaces are relatively well maintained. Some mild spondylitic endplate changes are seen especially from T11 through L1. No fractures or subluxations are seen. No bony destructive lesions. There is a mild scoliosis convex to the left. There is a rim calcified 6.6 x 4.4 cm mass in the right buttock behind the sacrum. Moderate aortoiliac calcification is seen. XR/XR lumbar spine 2-3V IMPRESSION: 1. No evidence of an acute osseous injury. 2. Incidental note made of a rim calcified mass in the right buttock.
[2024-01-14 18:12] VITALS: BP 144/94; PULSE 89; O2SAT 97
[2024-01-14 18:34] VITALS: BP 135/74; PULSE 83; RESP 20; TEMP 36.6; O2SAT 99; BMI 42.6
[2024-01-14 18:38] VITALS: RESP 20
--- NOTE | 2024-01-14 18:39 | PC.NURSE ---
Pt changed in hospital attire, leg braces on back of stretcher (for ambulation). Awaits ED provider evaluation
--- NOTE | 2024-01-14 21:08 | ECG_ITS ---
Test Reason : FALL Blood Pressure : / mmHG Vent. Rate : 080 BPM Atrial Rate : 080 BPM P-R Int : 162 ms QRS Dur : 092 ms QT Int : 388 ms P-R-T Axes : 063 -09 040 degrees QTc Int : 447 ms Normal sinus rhythm Cannot rule out Anterior infarct , age undetermined Abnormal ECG When compared with ECG of 11-JAN-2024 22:28, Premature atrial complexes are no longer Present Referred By: Holland Moe Electronically Signed By:Oni Mcneil
--- NOTE | 2024-01-14 21:22 | PC.NURSE ---
pt to cat scan at this time.
--- NOTE | 2024-01-14 21:28 | PC.NURSE ---
per Marcos from Care team, Pt is cleared by the care team and can return back to [facility] facility. PANKAJ Dobson made aware and agrees with plan. Medical workup to be completed first.
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
[2024-01-14 22:00] LABS: Glucose, Whole Blood 161 mg/dL (60-115)
--- NOTE | 2024-01-14 22:02 | PC.NURSE ---
careteam at bedside to discuss pt care plan.
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
[2024-01-14 22:35] LABS: MANUAL DIFF FLAG NO
[2024-01-14 22:37] LABS: Basophils Percent Auto 0.6 % (0-2); Eosinophils Absolute Auto 0.1 X10*3/uL (0.0-0.4); Eosinophils Percent Auto 1.3 % (0-4); Hematocrit 32.9 % (42.0-52.0); Hemoglobin 11.4 g/dl (14.0-18.0); Imm Gran Abs Auto 0.15 X10*3/uL (0.00-0.03); Imm Gran Pct Auto 2.8 % (0.0-0.4); Lymphocytes Absolute Auto 1.3 X10*3/uL (1.2-4.9); Lymphocytes Percent Auto 24.1 % (20-40); Mean Corpuscular HGB Conc 34.7 g/dl (31.0-36.0); Mean Corpuscular Hemoglobin 30.8 pg (27.0-33.0); Mean Corpuscular Volume 88.9 fL (80.0-98.0); Mean Platelet Volume 9.1 fL (9.4-12.4); Monocytes Absolute Auto 0.6 X10*3/uL (0.1-1.2); Monocytes Percent Auto 11.6 % (2-11); Neutrophils Absolute Auto 3.1 x10*3/uL (2.0-8.3); Neutrophils Percent Auto 59.6 % (45-73); Platelet Count 131 X10*3/uL (160-400); Red Cell Distribution Width 12.9 % (11.0-16.0); White Blood Count 5.3 X10*3/uL (4.8-10.8)
[2024-01-14 22:51] LABS: Alanine Aminotransferase 11 U/L (0-40); Alkaline Phosphatase 65 U/L (39-117); Anion Gap 12 (12-20); Aspartate Amino Transferase 17 U/L (5-37); Bilirubin Total 0.2 mg/dL (0.0-1.0); Blood Urea Nitrogen 15 mg/dL (9-16); Calcium 8.7 mg/dL (8.4-10.2); Carbon Dioxide 26 mmol/L (22-29); Chloride 105 mmol/L (96-108); Creatinine Clr Calc Pharmacy 113.1; Estimated Glomerular Filt Rate > 60; Glucose Random 167 mg/dL (60-115); Lipase 42 U/L (8-78); Potassium 3.6 mmol/L (3.3-5.1); Sodium 139 mmol/L (135-145); Total Protein 6.2 g/dL (6.5-8.0)
[2024-01-14 23:17] LABS: Influenza A PCR NEGATIVE (Negative); Influenza B PCR NEGATIVE (Negative); Resp Syncy Virus RNA Qual PCR NEGATIVE (Negative); SARS COV2 PCR INHOUSE NEGATIVE (Negative)
[2024-01-14] MEDS: Propranolol HCL 20 MG TABLET PO (23:50)
[2024-01-14] MEDS: hydrOXYzine HCL 50 MG TABLET PO (23:50)
--- NOTE | 2024-01-14 23:52 | PC.NURSE ---
pt medicated per jan. tolerated well with water.
--- NOTE | 2024-01-15 00:30 | PC.NURSE ---
ems at bedside for report and transport
== END 2024-01-15 00:41 | disposition home or self-care (01) ==
PROVIDERS: Physician Assistant; Emergency Provider Internal Medicine; PCP Internal Medicine
DX: Z04.3 Encounter for examination and observation following other accident (principal); R51.9 Headache, unspecified; M25.532 Pain in left wrist; F32.A Depression, unspecified; E11.9 Type 2 diabetes mellitus without complications; I10 Essential (primary) hypertension; G11.9 Hereditary ataxia, unspecified; Z91.81 History of falling; Z11.52 Encounter for screening for COVID-19; Z20.828 Contact with and (suspected) exposure to other viral communicable diseases
CPT/HCPCS: 0241U; 70450; 72100; 72125; 73110; 80053; 82947; 83690; 85025; 93005; 99284; 99285

== ENCOUNTER → 2024-01-14 21:08 | Outpatient (BNV) | payer MEDICARE, MEDICAID, SELFPAY | PROVIDERS: Emergency Provider Internal Medicine; PCP Internal Medicine; Visit Provider Internal Medicine Cardiovascular Disease | DX: R42 Dizziness and giddiness (principal) | CPT/HCPCS: 93010 ==

== ENCOUNTER 2024-01-21 11:02 | Outpatient (REF) | payer MEDICARE, MEDICAID, SELFPAY ==
--- NOTE | ~2024-01-21 | US_ITS ---
EXAMINATION: US PELVIS LIMITED (BLADDER) CLINICAL INFORMATION: Unspecified urinary incontinence. COMPARISON: CT abdomen and pelvis 10/27/2021. TECHNIQUE: Real-time imaging of the bladder. FINDINGS: BLADDER: Well distended and normal. Bilateral ureteral jets are demonstrated. Prevoid bladder volume is 245 mL. Postvoid bladder volume is 12.2 mL. The prostate volume is 15.2 mL. US/US bladder IMPRESSION: Normal-appearing urinary bladder.
== END 2024-01-21 11:03 | disposition home or self-care (01) ==
LOC: HO.US 11:02
PROVIDERS: PCP Internal Medicine; Visit Provider Internal Medicine
DX: R32 Unspecified urinary incontinence (principal)
CPT/HCPCS: 76857

== ENCOUNTER 2024-01-23 09:47 | Outpatient (AMB) | payer MEDICARE, MEDICAID, SELFPAY ==
--- NOTE | 2024-01-23 10:20 | A.SPINEOV_ITS ---
Intake Intake Visit Reasons: Leg weakness and pain Intake Note: Mr. Zepeda is here today c/o Leg weakness and pain Physician [facility] Required: No Accompanied by: Guardian Allergies Sulfa (Sulfonamide Antibiotics) Allergy (Severe, Verified 01/02/24 13:07) LANDEROS ALICIA REACTION, Landeros Alicia trimethoprim Allergy (Mild, Verified 01/02/24 13:07) UNKNOWN lactose Adverse Reaction (Mild, Verified 01/02/24 13:07) STOMACH UPSET Assessment & Plan Assessment & Plan (1) Back pain: Code(s): M54.9 - Dorsalgia, unspecified Qualifiers: Back pain location: low back pain Chronicity: acute Back pain laterality: right Sciatica presence: with sciatica Sciatica laterality: bilateral sciatica Qualified Code(s): M54.42 - Lumbago with sciatica, left side; M54.41 - Lumbago with sciatica, right side Plan Dear Dr Sumner, Thank you for referring Mr Zepeda to our office today. He is a 53-year-old male with cognitive delay, presents today for evaluation of right-sided low back pain. He does not report any pain going down his legs. The pain can be particularly difficult at night. It is located just above his iliac crest on the right. He has not report any tingling numbness going down his legs. He does have some kind of baseline weakness of his legs for which he wears braces on his feet. His blown film extrusion operator and the patient were unable to clarify for for me exactly why he has this weakness of his feet. He does fall occasionally. To this point he has had no dedicated conservative treatment for his back. Specifically no physical therapy, chiropractic, cortisone injections or acupuncture. He does not take any medication for the pain other than acetaminop hen. His blown film extrusion operator tells me that he has some kind of kidney disorder so I do not think he can take nonsteroidal anti-inflammatories. The patient was unable to give me much more detailed information about his situation. PMH: He has an extensive medical history as outlined in the [facility] records, but this includes mental retardation, leg swelling, incontinence, weakness, GERD, pancytopenia, diabetes, dysphagia, schizophrenia with hallucinations, hyponatremia, peripheral vascular disease, renal insufficiency, cerebellar ataxia, proteinuria, hypertension Social hx: He does not smoke, drink or use recreational drugs. He lives in a half-way. Medications: Please see the extensive [facility] list for his medications Allergies: He is allergic to sulfa and lactose Physical exam: He is awake alert but limited in his participation, he is able to stand up on his own to a walker. Neurological examination is limited because of participation an effort I believe, but he has excellent strength of the upper extremities and proximal lower extremities. He had large metal braces attached to his ankles and feet so I was unable to examine his plantar and dorsiflexion. He was able to wiggle his toes however. Reflexes were 2+ and symmetric. No atrophy or muscle wasting seen. I was unable to test for clonus because of the apparatus on his feet. Negative Wayne's sign. Imaging review: He has a lumbar MRI showing mild diffuse degenerative disc disease which is age-appropriate. There is also some kind of sebaceous cyst on his lumbar region in the subcutaneous area. It does not communicate the spine itself. There is no significant nerve compression seen on the MRI. Impression: 53-year-old gentleman history of mental retardation and cognitive delay, presents with a right-sided low back pain now for what sounds like many years. Has diffuse mild degenerative disc disease without any significant structural abnormalities or nerve compression. Many of these findings if not all are age-related and unlikely to be involved with his current pain which is on the right side of his low back more over toward his iliac crest. He has a sebaceous cyst seen on the MRI but it is more on the left side of his back done on the right and not near where he is complaining of his symptoms. He is going to start with physical therapy soon and I think this is certainly reasonable. If that does not help he can follow-up with pain management see if they have any other thoughts. He certainly does not need any lumbar surgery from our standpoint. Thank you for allowing us to care for your patient. The total time spent with this visit with this patient was 45 minutes reviewing history, physical exam, lumbar imaging review, and implementation of treatment plan or further diagnostic testing Finn Cerrato MD,PhD [facility] Coding Level of Care Code New Pt Level 4 (22863) Diagnoses Acute right-sided low back pain with bilateral sciatica M54.42; M54.41 Back pain location: low back pain Chronicity: acute Back pain laterality: right Sciatica presence: with sciatica Sciatica laterality: bilateral sciatica
== END 2024-01-23 11:05 | disposition home or self-care (01) ==
PROVIDERS: PCP Internal Medicine; Referring Provider Internal Medicine; Visit Provider Physician Assistant
DX: M54.42 Lumbago with sciatica, left side (principal); M54.41 Lumbago with sciatica, right side
CPT/HCPCS: 99204; 99214

== ENCOUNTER → 2024-01-23 09:47 | Outpatient (BNVA) | payer MEDICARE, MEDICAID, SELFPAY | PROVIDERS: Visit Provider Physician Assistant | DX: M54.41 Lumbago with sciatica, right side (principal); M54.42 Lumbago with sciatica, left side | CPT/HCPCS: 99202 ==

== ENCOUNTER 2024-02-04 13:38 | Outpatient (AMB) | payer MEDICARE, MEDICAID, SELFPAY ==
[2024-02-04 13:39] VITALS: BP 132/68; PULSE 79; O2SAT 98; BMI 41.8
--- NOTE | 2024-02-04 13:39 | A.OFFPC_ITS ---
Vital Signs 02/04/24 13:39 Height 5 ft 5 in Weight 251 lb BMI 41.8 BP 132/68 Blood Pressure Location Lt brachial Position Sitting Pulse 79 Pulse Source Pulse Oximeter Pulse Oximetry (%) 98 Oxygen Delivery Method Room Air Intake Visit Reasons: 1 month f/u Intake Note: Patient is here to follow up on 3 months Director [employer] Required: No Allergies Sulfa (Sulfonamide Antibiotics) Allergy (Severe, Verified 02/04/24 13:40) LANDEROS ALICIA REACTION, Landeros Alicia trimethoprim Allergy (Mild, Verified 02/04/24 13:40) UNKNOWN lactose Adverse Reaction (Mild, Verified 02/04/24 13:40) STOMACH UPSET Medication List - Last Reconciled 02/04/24 by Robert Downing Po, acetaminophen 650 mg (2 x 325 mg) PO Q4H PRN 90 days albuterol sulfate 90 mcg/actuation 2 puffs inhalation Q6H PRN atorvastatin 10 mg PO BEDTIME bismuth subsalicylate (Pepto-Bismol) 524 mg (30 mL) PO QID PRN 7 days blood sugar diagnostic (Zayauch Verio test strips) As directed check blood sugar TID blood-glucose meter (RankuTouch Ultra2 Meter) test once daily cholecalciferol (vitamin D3) 25 mcg PO DAILY [email or web address],xlrg As directed 10-20 mm HG cyanocobalamin (vitamin B-12) 1,000 mcg PO BEDTIME dextromethorphan polistirex ER (Delsym 12 hour) 10 mL PO Q12H PRN divalproex ER 1,000 mg PO BID empagliflozin (Jardiance) 25 mg PO DAILY esomeprazole magnesium (Nexium) 40 mg PO DAILY ferrous sulfate 325 mg PO BID fluoride (sodium) 1.1% (PreviDent 5000 Booster Plus) 1 appl dental BID fluticasone propion-salmeterol 250-50 mcg/dose (Advair Diskus) 1 ea inhalation BID fluticasone propionate 50 mcg/actuation 2 sprays intranasal BID fluticasone propionate 50 mcg/actuation (Flonase Allergy Relief) 2 sprays intranasal DAILY gabapentin 200 mg PO BID guaifenesin (Siltussin SA) 200 mg PO Q4H PRN hydralazine 50 mg PO TID hydroxyzine pamoate 50 mg PO DAILY PRN lactase (Lactaid) 3,000 units PO TIDWM PRN lancets (OneTouch UltraSoft 2 Lancet) test once daily metformin 500 mg PO BID methylcellulose (laxative) (Citrucel) 1,000 mg PO DAILY [id number]-[id number]-kytzslttK 3.5-400-5,000 jx-kjpp-eozm (Triple Antibiotic) 1 appl topical BID nystatin 1 appl topical TID PRN ondansetron 4 mg PO Q6H PRN propranolol 20 mg PO TID@0800,1600,2000 90 days risperidone 3 mg PO BID sennosides (senna) 17.2 mg PO DAILY PRN tirzepatide 5 mg (0.5 mL) subcut QWEEK 4 weeks Tobacco use date assessed: 02/04/24 Dental Screening Dental Screen Date: 02/04/24 HPI 1 month f/u HPI Details 53 year old obese male with mental behav ior problem, diabetes mellitus hypertension cerebellar ataxia coming in for follow-up. Last seen in December 2023. Patient had low back pain and had an MRI done showing diffuse degenerative disease with a question of sebaceous cyst in the lumbar area in no nerve compression part advised physical therapy for incontinence patient also had an ultrasound of the bladder this was normal. Patient did have a fall in January 2024 and ER visit cleared.. January 10 ER visit also for chest pain and suicidal ideation workup has been negative. Physical therapy scheduled 02/09/2024 [facility] Medical History (Updated 01/23/24 @ 10:48 by PANKAJ Capps) Back pain Leg swelling Ankle pain, left Feeling suicidal Tinea cruris Atrial flutter Atrial fib/flutter, transient A-fib Arrhythmia Abnormal EKG Contusion of left ankle Annual physical exam Abdominal pain Positive colorectal cancer screening using Cologuard test Precordial chest pain Hospital discharge follow-up Chest pain Right ankle pain Musculoskeletal chest pain Left-sided chest pain Back pain Fall Acute kidney injury Gait instability Suicidal ideation COVID-19 Hypomagnesemia Diarrhea Abdominal pain Left ankle sprain Seizure disorder Hypertension Anxiety Hyponatremia Cerebellar ataxia Anemia Lactose intolerance Vertigo Asthma Mental disability Type 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 Proteinuria Hyperlipidemia LDL goal <100 Essential hypertension Surgical History Hx of colonoscopy History of orchiectomy Family History Father Myocardial infarction CVD (cardiovascular disease) Diabetes mellitus Mother Diabetes mellitus HTN (hypertension) Brother In good health Sister In good health Social History Household Members: Other Household Members Other:: from half-way Housing: Other Housing Other:: half-way Do you presently have visiting nurse or other home services: Yes Alcohol intake: never 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 Patient Tobacco Use Status: Never used Tobacco e-Cigarette/Vaping Use: Never Used Second Hand Smoke Exposure: No Advance Directives Date on File: 05/23/21 service: No Current occupational status: disabled Cognitive needs: Yes (walker) Hearing needs: No Vision needs: Yes (glasses) Questionnaire Thrive Questionnaire Date Thrive assessed: 11/14/23 AUDIT C Alcohol Use Questionnaire (AUDIT-C) 1. How often do you have a drink containing alcohol?: Never 2. How many drinks containing alcohol do you have on a typical day when you are drinking?: 1 or 2 (0) 3. How often do you have six or more drinks on one occasion?: Never Total Score: 0 Score Reviewed/Action Taken: Yes CHANI-7 AMB Questionnaire CHANI-7 Date CHANI - 7 assessed: 11/14/23 Source: Developed by Drs. Wellington López, Monica Jackson, Ray Nguyen and colleagues, with an educational perez from [employer]. Physical exam (Primary Care) Vital Signs: Last Vital Signs Pulse 79 02/04/24 13:39 BP 132/68 02/04/24 13:39 Pulse Ox 98 02/04/24 13:39 Oxygen Delivery Method Room Air 02/04/24 13:39 BMI result Body Mass Index 41.8 Tobacco/Smoking Status: Tobacco use Status Tobacco use date assessed 02/04/24 02/04/24 13:41 Patient Tobacco Use Status Never used Tobacco 02/04/24 13:41 e-Cigarette/Vaping Use Never Used 02/04/24 13:41 Thrive Assessment: Date of Thrive Assessment Date Thrive assessed 11/14/23 02/04/24 13:41 Const General: alert; No acute distress Eyes Conjunctivae: conjunctivae normal Resp Auscultation: clear to auscultation bilaterally Cardio Rate: regular rate Rhythm: regular rhythm GI Inspection: Yes normal to inspection Extrem General: Yes normal to inspection and No edema Assessment and Plan Assessment & Plan (1) Type 2 diabetes mellitus with unspecified complications: Code(s): E11.8 - Type 2 diabetes mellitus with unspecified complications Plan: Decrease the amount of carbohydrate intake, pasta, bread, rice and potatoes are all sugar and that is aside from all the sweet stuff, remember that fruits are good but they are Sweet also. Hemoglobin A1c goal of less than 6.5. Patient on Jardiance 25 mg once a day metformin 500 mg twice a day and Mounjaro 5 mg once a week. (2) Cerebellar ataxia: Code(s): G11.9 - Hereditary ataxia, unspecified Plan: On the walker continue to exercise (3) Hyperlipidemia LDL goal <100: Code(s): E78.5 - Hyperlipidemia, unspecified Plan: Avoid fried foods, chicken skin, eggs, butter margarine, pastries and meat. Be it pork or beef they have a lot of cholesterol LDL goal of less than 100 and triglyceride of less than 150 on atorvastatin 10 mg once a day October 2023 70 (4) Essential hypertension: Code(s): I10 - Essential (primary) hypertension Plan: Continue with blood pressure medication. Decrease salt intake and exercise on hydralazine 50 mg 3 times a day propranolol 20 mg 3 times a day (5) Cognitive developmental delay: Code(s): F81.9 - Developmental disorder of scholastic skills, unspecified Plan: Stable (6) Schizophrenia: Code(s): F20.9 - Schizophrenia, unspecified Plan: Continue with counseling and therapy with psychiatrist (7) Back pain: Code(s): M54.9 - Dorsalgia, unspecified Qualifiers: Back pain location: low back pain Chronicity: acute Back pain laterality: right Sciatica presence: with sciatica Sciatica laterality: bilateral sciatica Qualified Code(s): M54.42 - Lumbago with sciatica, left side; M54.41 - Lumbago with sciatica, right side Plan: Continue to have physical therapy Orders: Orders FL barium swallow modified Today R13.10 - Dysphagia, unspecified Comprehensive Met. Panel Today E11.29 - Type 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 Hemoglobin A1c Today E11.29 - Type 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 Free T4 (Free Thyroxine) Today E11.29 - Type 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 Microalbumin, Random (w Creat) Today E11.29 - Type 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, E11.65 - Type 2 diabetes mellitus with hyperglycemia Lipid Panel Today E11.29 - Type 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, E78.00 - Pure hypercholesterolemia, unspecified Ferritin Today F20.9 - Schizophrenia, unspecified Complete Blood Count Auto Diff Today E11.29 - Type 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 Thyroid Stimulating Hormone Today E11.29 - Type 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 Creatinine Urine Today E11.29 - Type 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, E11.65 - Type 2 diabetes mellitus with hyperglycemia Vitamin B12 and Folate Today E11.29 - Type 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 Prostate Specific Antigen Scr Today E11.29 - Type 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 IRON PROFILE Today F20.9 - Schizophrenia, unspecified Reticulocyte Count Today F20.9 - Schizophrenia, unspecified Referrals Speech and Hearing Referral R13.10 - Dysphagia, unspecified Medications: New fluticasone propion-salmeterol 250-50 mcg/dose (Wixela Inhub) 1 inh inhalation BID 60 ea 12RF J45.40 - Moderate persistent asthma, uncomplicated Refilled acetaminophen 650 mg (2 x 325 mg) PO Q4H 90 days PRN 180 tabs 2RF fever or pain J45.40 - Moderate persistent asthma, uncomplicated Coding Level of Care Code Est Pt Level 4 (10169) Diagnoses Type 2 diabetes mellitus with unspecified complications E11.8 Cerebellar ataxia G11.9 Hyperlipidemia LDL goal <100 E78.5 Essential hypertension I10 Cognitive developmental delay F81.9 Schizophrenia F20.9 Acute right-sided low back pain with bilateral sciatica M54.42; M54.41 Back pain location: low back pain Chronicity: acute Back pain laterality: right Sciatica presence: with sciatica Sciatica laterality: bilateral sciatica
== END 2024-02-04 14:26 | disposition home or self-care (01) ==
PROVIDERS: PCP Internal Medicine; Visit Provider Internal Medicine
DX: E11.8 Type 2 diabetes mellitus with unspecified complications (principal); G11.9 Hereditary ataxia, unspecified; F20.9 Schizophrenia, unspecified; E78.5 Hyperlipidemia, unspecified; I10 Essential (primary) hypertension; F81.9 Developmental disorder of scholastic skills, unspecified; M54.42 Lumbago with sciatica, left side; M54.41 Lumbago with sciatica, right side
CPT/HCPCS: 99214

== ENCOUNTER → 2024-03-10 10:30 | Outpatient (BNV) | payer MEDICARE, MEDICAID, SELFPAY | PROVIDERS: PCP Internal Medicine; Visit Provider Physician Assistant Surgical | DX: R13.10 Dysphagia, unspecified (principal) | CPT/HCPCS: 74230 ==

== ENCOUNTER 2024-03-10 10:38 | Outpatient (REF) | payer MEDICARE, MEDICAID, SELFPAY ==
--- NOTE | ~2024-03-10 | FL_ITS ---
EXAMINATION: Modified Barium Swallow CLINICAL INFORMATION: Dysphagia COMPARISON: 02/14/2021. TECHNIQUE: Modified barium swallow was performed under lateral fluoroscopy with patient in standing position. Barium mixed with solids and liquids of varying consistencies was administered by the speech pathologist. The examination was recorded in the fluoroscopy suite. FINDINGS: Aspiration was seen with thin barium. FLUOROSCOPY TIME: 4 minutes 9 seconds Number of Spot Images: 1 DOSE AREA PRODUCT: 3007 uGy-m2 (microgray-meter squared) FL/FL barium swallow modified IMPRESSION: Aspiration was observed with thin barium Refer to the speech therapy report for further clarification. This procedure was performed by Holland Marshall PA-C, and supervised by Dr. Luis
--- NOTE | 2024-06-09 16:32 | MHC.SL.IMP ---
Date of Plan of Treatment: 03/10/24 Onset of Symptoms/Illness: 02/09/24 Date Treatment Started: 03/10/24 Admitting Diagnosis: Parkinson's Primary Speech & Language Diagnosis: R13.12 Oropharyngeal Phase Dysphagia Secondary Speech & Language Diagnosis: Reason for Today's Visit: [id number] Modified Barium Swallow Study Comments: Pre-evaluation Dietary Consistencies: Regular Pre-evaluation Liquid Consistency: Thin Pre-evaluation Medication Administration: Whole with Liquid [facility] Fall Risk Assessment Score: Oral Motor Exam Facial Symmetry: Normal for Patient Symmetrical Facial Movement: Oral-Facial Facial Miscellaneous Observations: Mouth Occlusion: Oral-Facial Teeth Characteristics: Oral-Facial Teeth Miscellaneous Observation: Oral-Facial Lip Pucker Description: Oral-Facial Smile (Lips) Description: Oral-Facial Puff Cheeks Description: Oral-Facial Lip Miscellaneous Comment: Tongue Size: Tongue Frenum Length: Tongue Excursion Description: Tongue Range of Movement Description: Tongue Speed of Movement Description: Tongue Strength of Movement (against opposing pressure): Tongue Movement Characteristics: Tongue Movement Miscellaneous Observation: Oral Expression Ability: No Impairment Is patient able to manage secretions?: No Is patient able to produce volitional cough?: N/A Food and Liquid Trials: Oral Impairment: Lip Closure: 0=No labial escape Oral Impairment: Tongue Control During Bolus Hold: 0=Cohesive bolus between tongue to palatal seal Oral Impairment: Bolus Preparation/Mastication: 1=Slow prolonged chewing/mashing with complete re-collection Oral Impairment: Bolus Transport/Lingual Motion: 0=Brisk tongue motion Oral Impairment: Oral Residue: 2=Residue collection on oral structures Oral Impairment:Initiation of Pharyngeal Swallow: 1=Bolus head in valleculae Pharyngeal Impairment: Soft Palate Elevation: 1=Trace column of contrast or air between SP and PW Pharyngeal Impairment: Laryngeal Elevation: 1=Partial thyroid cartilage/arytenoids to epiglottic petiole movement Pharyngeal Impairment: Anterior Hyoid Excursion: 1=Partial anterior movement Pharyngeal Impairment: Epiglottic Movement: 0=Complete inversion Pharyngeal Impairment: Laryngeal Vestibular Closure:: 1=Incomplete: narrow column air/contrast in laryngeal vestibule Pharyngeal Impairment: Pharyngeal Stripping Wave: 0=Present: complete Pharyngeal Impairment: Pharyngeal Contraction: Did not test Pharyngeal Impairment: Pharyngoesophageal Segment Opening: Pharyngeal Impairment: Tongue Base (TB) Retraction: 2=Narrow column of contrast/air between TB and posterior PW Pharyngeal Impairment: Pharyngeal Residue: 2=Collection of residue within or on pharyngeal structures Pharyngeal Impairment: Esophageal Clearance Upright Position: Did not test Impressions and Recommendations Clinical Observations: Pt was provided Thin and Tiger-Thick Liquid Barium as well as Puree, Ground and Regular Solids coated in barium contrast. Pt tolerated spoon sip and small sips of Thin Barium with no aspiration but significant penetration for the cup sip trials of Thin Liquids. He was observed to aspirate contrast below the vocal folds with uncontrolled cup sip and small cup sip with pharyngeal residue present following solid trials. Spontaneous cough was not elicited with either aspiration event. He tolerated Tiger Thick Liquids with spoon sips and controlled and uncontrolled cup sips. Penetration was observed with both controlled and uncontrolled cup sips. Solid textures all showed mild oral and pharyngeal residue with no penetration or aspiration present. Recommend Regular Solids and Tiger-Thick Liquids. Pt may benefit from follow-up Speech Therapy to train eating habit and provided exercises to improve his swallow. After completion, he may qualify to return to Thin Liquids. Until then, given his lack of cough response, he should be under strict aspiration precautions. Liquid Intake Recommendation: Tiger Thick Liquid Intake Strategies: Unrestricted Dietary Recommendations: Regular Medication Administration: Whole with Liquid Please contact the pharmacy regarding appropriate crushable or liquid drug formulations that are available whenever modified delivery is recommended. Compensatory Strategies Recommended: Sitting Upright (90 deg) Alternate Liquids/Solids Rate of Ingestion Change Oral Check Avoid Specific Foods Supervision during eating and or drinking: Intermittent Supervision Recommended Treatments: Compens. Strategy Educat. Recommendation for Speech Therapy: Discharged with Instructions for Home Use Text Comment: Recommend Regular Solids and Tiger Thick Liquids, especially with meals. Pt may be a good candidate for Speech Therapy to work on strategies to return to Thin Liquids. Frequency/Duration: Date Range for Service Requested: Timeline to reassess: PRN Assistant Program Director Clinician/Clinical Fellow: Yes Supervisory Statement: No Speech Language Pathologist: Surinder Simpson M.A., CCC-CDL DRIVER
--- NOTE | 2024-06-10 10:28 | MHC.SPEECHCO ---
PORT PATROL OFFICER spoke with Pt's on 06/09/24 requesting an update on his status. He has moved to a memory care facility in [place]. She expresses interest in a follow-up MBSS, and that she is not satisfied with the services he is currently getting. PORT PATROL OFFICER informed her she would need to contact his PCP and send us a new order and provided our fax number.
== END 2024-03-10 10:39 | disposition home or self-care (01) ==
LOC: HO.XRAY 10:38
PROVIDERS: PCP Internal Medicine; Visit Provider Nurse Practitioner Family
DX: R13.10 Dysphagia, unspecified (principal)
CPT/HCPCS: 74230; 92611

== ENCOUNTER 2024-03-12 21:00 | Emergency (ER) | payer MEDICARE, MEDICAID, SELFPAY ==
--- NOTE | ~2024-03-12 | XR_ITS ---
EXAMINATION: XR ELBOW, LEFT CLINICAL INFORMATION: Fall. Pain. COMPARISON: None available. TECHNIQUE: AP, lateral, and oblique views of the left elbow. FINDINGS: No fracture or malalignment. Small enthesophyte spur at the triceps tendon insertion on the olecranon. Elbow joint appears relatively well-preserved. No effusion. Soft tissues are unremarkable. XR/XR elbow LT 2V IMPRESSION: No acute fracture or malalignment.
[2024-03-12 21:19] VITALS: BP 133/92; PULSE 77; RESP 18; TEMP 36.4; O2SAT 98; BMI 41.6
--- NOTE | 2024-03-12 21:53 | MHC.EDTECH ---
Patient was incont. of a large amount of urine,tomás-care given and linen changed.
--- NOTE | 2024-03-12 22:04 | MHC.EDTECH ---
Patient urinated 250MLS in urinal
--- NOTE | 2024-03-12 22:14 | ED_ITS ---
HPI - Extremity Problem General Chief complaint: Extremity Injury, Upper Stated complaint: FELL OUT OF CHAIR/SI Time Seen by Provider: 03/12/24 22:02 Source: patient Mode of arrival: ambulatory Limitations: no limitations History of Present Illness HPI Narrative: Patient comes to the emergency room complaining of left elbow pain. Patient states that earlier today he was trying to reach for a Tylenol, fell down and hurt his elbow. Initially, when 911 was called, patient was complaining of right elbow pain, patient states that now he has left elbow pain. Related Data Home Medications ?Medication ?Instructions ?Recorded ?Confirmed divalproex 500 mg tablet,extended 1,000 mg PO BID 06/10/23 02/04/24 release 24 hr gabapentin 100 mg capsule 200 mg PO BID 06/10/23 02/04/24 risperidone 3 mg tablet 3 mg PO BID 06/10/23 02/04/24 albuterol sulfate 90 mcg/actuation 2 puff inhalation Q6H PRN Wheezing 07/29/23 02/04/24 aerosol inhaler guaifenesin 100 mg/5 mL oral 200 mg PO Q4H PRN Cough 07/29/23 02/04/24 liquid (Siltussin SA) ondansetron 4 mg disintegrating 4 mg PO Q6H PRN Nausea And Vomiting 07/29/23 02/04/24 tablet hydroxyzine pamoate 50 mg capsule 50 mg PO DAILY PRN 10/13/23 02/04/24 AGITATION/ANXIETY neomycin-bacitracn Zn-polymyxn 3.5 1 appl topical BID 10/13/23 02/04/24 mg-400 unit-5,000 unit top oint pkt (Triple Antibiotic) fluoride (sodium) 1.1 % dental 1 appl dental BID 12/23/23 02/04/24 paste (PreviDent 5000 Booster Plus) sennosides 8.6 mg tablet (senna) 17.2 mg PO DAILY PRN Constipation 12/23/23 02/04/24 Previous Rx's ?Medication ?Instructions ?Recorded blood-glucose meter (OneTouch #1 ea 06/17/23 Ultra2 Meter) lancets 30 gauge (OneTouch #100 ea 06/17/23 UltraSoft 2 Lancet) bismuth subsalicylate 262 mg/15 mL 524 mg (30 mL) PO QID PRN diarrhea 08/01/23 oral suspension (Pepto-Bismol) 7 days #1,200 mL nystatin 100,000 unit/gram topical 1 appl topical TID PRN Rash #60 08/04/23 powder grams empagliflozin 25 mg tablet 25 mg PO DAILY #30 tabs 08/18/23 (Jardiance) alvarez.stocking,knee,reg,xlrg #12 ea 08/27/23 atorvastatin 10 mg tablet 10 mg PO BEDTIME #90 tabs 09/24/23 metformin 500 mg tablet 500 mg PO BID #180 tabs 09/24/23 propranolol 20 mg tablet 20 mg PO TID@0800,1600,2000 90 09/24/23 days #270 tabs dextromethorphan polistirex 30 10 ml PO Q12H PRN cough #89 mL 10/15/23 mg/5 mL oral susp ext.release 12hr (Delsym 12 hour) lactase 3,000 unit tablet (Lactaid) 3,000 unit PO TIDWM PRN Lactose 11/14/23 Intolerance #30 tabs cholecalciferol (vitamin D3) 25 25 mcg PO DAILY #30 tabs 12/16/23 mcg (1,000 unit) tablet esomeprazole magnesium 40 mg 40 mg PO DAILY #30 caps 12/26/23 capsule,delayed release (Nexium) blood sugar diagnostic (OneTouch #100 ea 01/02/24 Verio test strips) hydralazine 50 mg tablet 50 mg PO TID #90 tabs 01/29/24 acetaminophen 325 mg tablet 650 mg (2 x 325 mg) PO Q4H PRN 02/04/24 fever or pain 90 days #180 tabs methylcellulose (laxative) 500 mg 1,000 mg (2 x 500 mg) PO DAILY 30 02/26/24 tablet (Citrucel) days #60 tabs cyanocobalamin (vitamin B-12) 1,000 mcg PO BEDTIME #90 tabs 02/27/24 1,000 mcg tablet ferrous sulfate 325 mg (65 mg 325 mg PO BID #180 tabs 02/27/24 iron) tablet mometasone-formoterol HFA 200 2 puff inhalation BID #13 grams 03/02/24 mcg-5 mcg/actuation aerosol inhaler (Dulera) fluticasone propionate 50 2 spray intranasal BID #16 grams 03/06/24 mcg/actuation nasal spray,suspension fluticasone propionate 50 2 spray intranasal DAILY #16 grams 03/07/24 mcg/actuation nasal spray,suspension (Flonase Allergy Relief) tirzepatide 5 mg/0.5 mL 5 mg (0.5 mL) subcut QWEEK 4 weeks 03/08/24 subcutaneous pen injector #2 mL starch (thickening) (Diafoods See Rx Instructions PO .COMPLEX 30 03/11/24 Thick-It oral powder) days #850 grams Allergies Allergy/AdvReac Type Severity Reaction Status Date / Time Sulfa (Sulfonamide Allergy Severe CHAVEZ Verified 03/12/24 21:21 Antibiotics) ALICIA REACTION, Chavez Alicia trimethoprim Allergy Mild UNKNOWN Verified 03/12/24 21:21 lactose AdvReac Mild STOMACH Verified 03/12/24 21:21 UPSET Review of Systems Review of Systems: Constitutional : No Weight loss, No Fever, No Chills, No Night Sweats, No Fatigue, No Malaise ENT/Mouth : No Hearing loss, No Ear Pain, No Nasal Congestion, No Sinus Pain, No Hoarseness, No sore throat, No Rhinorrhea, No Swallowing Difficulty Eyes: No Eye Pain, No Swelling, No Redness, No Foreign Body, No Discharge, No Vision Changes Cardiovascular : No Chest Pain, No SOB, No Dyspnea on Exertion, No Orthopnea, No Edema, No Palpitations Respiratory : No Cough, No Sputum, No Wheezing, No Smoke Exposure, No Dyspnea Gastrointestinal : No Nausea, No Vomiting, No Diarrhea, No Constipation, No abdominal Pain, No Hematochezia, No Melena Genitourinary : no irregular bleeding, No Dysuria, No Urinary Frequency, No Hematuria, No Urinary Incontinence, No Urgency, No Flank Pain, No Urinary Flow Changes, No Hesitancy Musculoskeletal : Complaining of left elbow pain, No Myalgias, No Joint Swelling Skin : No Skin Lesions, No rash Neuro : No Weakness, No Numbness, No Paresthesias, No Loss of Consciousness, No Dizziness, No Headache Psych : No Anxiety/Panic, No Depression, No SI/HI/AH/VH, No Social Issues, Heme/Lymph: No Bruising, No Bleeding,No Lymphadenopathy Endocrine : No Polyuria, No Polydipsia, No Temperature Intolerance [facility] Past Medical History Medical History Dysphagia Back pain Leg swelling Ankle pain, left Feeling suicidal Tinea cruris Atrial flutter Atrial fib/flutter, transient A-fib Arrhythmia Abnormal EKG Contusion of left ankle Annual physical exam Abdominal pain Positive colorectal cancer screening using Cologuard test Precordial chest pain Hospital discharge follow-up Chest pain Right ankle pain Musculoskeletal chest pain Left-sided chest pain Back pain Fall Acute kidney injury Gait instability Suicidal ideation COVID-19 Hypomagnesemia Diarrhea Abdominal pain Left ankle sprain Seizure disorder Hypertension Anxiety Hyponatremia Cerebellar ataxia Anemia Lactose intolerance Vertigo Asthma Mental disability Type 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 Proteinuria Hyperlipidemia LDL goal <100 Essential hypertension Surgical History Hx of colonoscopy History of orchiectomy Family History Family History Father Myocardial infarction CVD (cardiovascular disease) Diabetes mellitus Mother Diabetes mellitus HTN (hypertension) Brother In good health Sister In good health Social History Social History Household Members: Other Household Members Other:: from [facility] Housing: Other Housing Other:: [facility] Do you presently have visiting nurse or other home services: Yes Unable to assess alcohol history related to: Unknown Alcohol intake: never 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 Patient Tobacco Use Status: Never used Tobacco e-Cigarette/Vaping Use: Never Used Second Hand Smoke Exposure: No Use of substances other than those prescribed or required for medical reasons: Unknown Advance Directives: Yes Advance Directives on File: Yes Advance Directives Date on File: 05/23/21 service: No Current occupational status: disabled Cognitive needs: Yes (walker) Hearing needs: No Vision needs: Yes (glasses) Physical Exam Vital Signs: Vital Signs: Last Vital Signs Temp 97.6 F 03/12/24 21:19 Pulse 77 03/12/24 21:19 Resp 18 03/12/24 21:19 BP 133/92 H 03/12/24 21:19 Pulse Ox 98 03/12/24 21:19 O2 Del Method Room Air 03/12/24 21:19 BMI result Body Mass Index 41.6 Const: Other: Appearance: Alert. Oriented X3. No acute distress. Eyes: Pupils equal, round and reactive to light. ENT: Pharynx normal. Neck: Normal inspection. Neck supple. No lymph nodes noted. No crepitus CVS: Normal heart rate and rhythm. Pulses normal. Normal S1 and S2 Respiratory: No respiratory distress. Breath sounds normal. No Wheezing. No rales Abdomen: Soft and nontender. No rigidity. No distention. Skin: Skin warm and dry. Normal skin color. Normal skin turgor. Extremities: No lower extremity edema. No Lacerations. No Rash patient has normal range of motion with flexion and extension, no deformity or ecchymosis, no abrasions or lacerations. Neuro: Oriented X 3. No motor deficit. No sensory deficit. Moving all extremities. No slurred speech. CN 2 through 12 grossly intact Psych: calm, cooperative, normal affect Course Course Course Narrative: X-ray of the left elbow pending Medical Decision Making Medical Decision Making MDM Narrative: -my interpretation of x-ray of the elbow: No acute fracture, no obvious deformity. -radiology report: No fracture -patient has normal range of motion in both upper and lower extremities Radiology Impression Discussion of test interpretation with radiology: I have reviewed the radiologist's reading. Radiologist Impression: No fracture or malalignment. Small enthesophyte spur at the triceps tendon insertion on the olecranon. Elbow joint appears relatively well-preserved. No effusion. Soft tissues are unremarkable. XR/XR elbow LT 2V IMPRESSION: No acute fracture or malalignment. Discharge Plan Discharge Clinical Impression: Contusion of elbow Patient Disposition: Home, Self-Care Instructions: Contusion in Adults (ED) Additional Instructions: Please follow-up with your primary care physician tomorrow. If you have any worsening or new symptoms, please return to the emergency room or call 911 Prescriptions: No Action (DME) blood-glucose meter [OneTouch Ultra2 Meter] Misc See Rx Instructions .Route Qty: 1 0RF Rx Instructions: test once daily (DME) lancets [OneTouch UltraSoft 2 Lancet] 30 gauge misc See Rx Instructions .Route Qty: 100 5RF Rx Instructions: test once daily nystatin 100,000 unit/gram powder 1 appl TOPICAL TID PRN (Reason: Rash) Qty: 60 0RF (DME) alvarez.stocking,knee,reg,xlrg Misc See Rx Instructions .Route Qty: 12 0RF Rx Instructions: As directed 10-20 mm HG propranolol 20 mg tablet 20 mg PO TID@0800,1600,2000 90 Days Qty: 270 3RF atorvastatin 10 mg tablet 10 mg PO BEDTIME Qty: 90 1RF metformin 500 mg tablet 500 mg PO BID Qty: 180 1RF dextromethorphan polistirex [Delsym 12 hour] 30 mg/5 mL suspension,extended rel 12 hr 10 ml PO Q12H PRN (Reason: cough) Qty: 89 0RF cholecalciferol (vitamin D3) 25 mcg (1,000 unit) tablet 25 mcg PO DAILY Qty: 30 11RF esomeprazole magnesium [Nexium] 40 mg capsule,delayed release(DR/EC) 40 mg PO DAILY Qty: 30 3RF hydralazine 50 mg tablet 50 mg PO TID Qty: 90 3RF Citrucel 500 mg tablet 1,000 mg PO DAILY 30 Days Qty: 60 2RF cyanocobalamin (vitamin B-12) 1,000 mcg tablet 1,000 mcg PO BEDTIME Qty: 90 0RF ferrous sulfate 325 mg (65 mg iron) tablet 325 mg PO BID Qty: 180 0RF Dulera 200-5 mcg/actuation HFA aerosol inhaler 2 puff inhalation BID Qty: 13 3RF fluticasone propionate 50 mcg/actuation spray,suspension 2 spray INTRANASAL BID Qty: 16 0RF fluticasone propionate [Flonase Allergy Relief] 50 mcg/actuation spray,suspension 2 spray intranasal DAILY Qty: 16 12RF Rx Instructions: administer into each nostril tirzepatide 5 mg/0.5 mL pen injector 5 mg subcut QWEEK 28 Days Qty: 2 1RF Diafoods Thick-It Powder See Rx Instructions PO .COMPLEX 30 Days Qty: 850 12RF Rx Instructions: Add thick it powder to food and beverage using enclosed measuring spoon; hydroxyzine pamoate 50 mg capsule 50 mg PO DAILY PRN (Reason: AGITATION/ANXIETY) Triple Antibiotic 3.5-400-5,000 [id number] Ointment In Packet 1 appl TOPICAL BID risperidone 3 mg tablet 3 mg PO BID divalproex 500 mg tablet extended release 24 hr 1,000 mg PO BID gabapentin 100 mg capsule 200 mg PO BID guaifenesin [Siltussin SA] 100 mg/5 mL Liquid 200 mg PO Q4H PRN (Reason: Cough) albuterol sulfate 90 mcg/actuation Hfa Aerosol Inhaler 2 puff INHALATION Q6H PRN (Reason: Wheezing) ondansetron 4 mg Tablet,Disintegrating 4 mg PO Q6H PRN (Reason: Nausea And Vomiting) sennosides [senna] 8.6 mg Tablet 17.2 mg PO DAILY PRN (Reason: Constipation) fluoride (sodium) [PreviDent 5000 Booster Plus] 1.1 % Paste 1 appl DENTAL BID Jardiance 25 mg tablet 25 mg PO DAILY Qty: 30 9RF bismuth subsalicylate [Pepto-Bismol] 262 mg/15 mL suspension 524 mg PO QID PRN (Reason: diarrhea) 7 Days Qty: 1200 0RF lactase [Lactaid] 3,000 unit tablet 3,000 unit PO TIDWM PRN (Reason: Lactose Intolerance) Qty: 30 11RF Rx Instructions: take at the start of drinking milk only (DME) OneTouch Verio test strips Strip See Rx Instructions .Route Qty: 100 12RF Rx Instructions: As directed check blood sugar TID acetaminophen 325 mg tablet 650 mg PO Q4H PRN (Reason: fever or pain) 90 Days Qty: 180 2RF Print Language: Greenlandic
--- NOTE | 2024-03-12 22:46 | PC.NURSE ---
Late note, Patient arrived on EMS stretcher wet with urine. This RN and tech changed patients clothing, staff from nursing home at bedside
[2024-03-13 02:36] VITALS: BP 133/92; PULSE 77; RESP 18; TEMP 36.4; O2SAT 98
== END 2024-03-13 02:37 | disposition home or self-care (01) ==
PROVIDERS: Emergency Provider Emergency Medicine; PCP Internal Medicine
DX: S50.02XA Contusion of left elbow, initial encounter (principal); I10 Essential (primary) hypertension; E11.9 Type 2 diabetes mellitus without complications; G40.909 Epilepsy, unspecified, not intractable, without status epilepticus; W18.30XA Fall on same level, unspecified, initial encounter; Y93.9 Activity, unspecified; Y92.9 Unspecified place or not applicable; Y99.9 Unspecified external cause status
CPT/HCPCS: 73070; 99283; 99284

== ENCOUNTER 2024-04-07 14:06 | Outpatient (AMB) | payer MEDICARE, MEDICAID, SELFPAY ==
[2024-04-07 14:08] VITALS: BP 136/68; PULSE 76; O2SAT 98; BMI 40.4
--- NOTE | 2024-04-07 14:08 | MHC.PC.OV ---
Vital Signs 04/07/24 14:08 Height 5 ft 5 in Weight 242 lb 15.19 oz BMI 40.4 BP 136/68 Blood Pressure Location Lt brachial Position Sitting Pulse 76 Pulse Source Pulse Oximeter Pulse Oximetry (%) 98 Oxygen Delivery Method Room Air Intake Visit Reasons: [facility] Contusion Intake Note: Patient is here to follow-up after a visit the emergency department at [facility] on 03/12/2024 Plastic Sheets Supervisor Required: No Allergies Sulfa (Sulfonamide Antibiotics) Allergy (Severe, Verified 04/07/24 14:08) LANDEROS ALICIA REACTION, Landeros Alicia trimethoprim Allergy (Mild, Verified 04/07/24 14:08) UNKNOWN lactose Adverse Reaction (Mild, Verified 04/07/24 14:08) STOMACH UPSET Tobacco use date assessed: 04/07/24 Dental Screening Dental Screen Date: 04/07/24 HPI [facility] Contusion HPI Details 51-year-old morbidly obese male with mental behavior problem having cerebellar ataxia on walker. 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 There was bruise but this all cleared up x-ray was done negative results. Meanwhile diabetes on placed on Mounjaro but has been irregular due to supply issues and on Jardiance 25 mg once a day hemoglobin A1c is pretty much under control right now and noted weight loss. Concern that the Mounjaro was unavailable. Other active problems right now had modified barium swallow and noted some dysphagia problem and has been placed on Thick-it to mix with his diet. [facility] Medical History Dysphagia Back pain Leg swelling Ankle pain, left Feeling suicidal Tinea cruris Atrial flutter Atrial fib/flutter, transient A-fib Arrhythmia Abnormal EKG Contusion of left ankle Annual physical exam Abdominal pain Positive colorectal cancer screening using Cologuard test Precordial chest pain Hospital discharge follow-up Chest pain Right ankle pain Musculoskeletal chest pain Left-sided chest pain Back pain Fall Acute kidney injury Gait instability Suicidal ideation COVID-19 Hypomagnesemia Diarrhea Abdominal pain Left ankle sprain Seizure disorder Hypertension Anxiety Hyponatremia Cerebellar ataxia Anemia Lactose intolerance Vertigo Asthma Mental disability Type 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 Proteinuria Hyperlipidemia LDL goal <100 Essential hypertension Surgical History Hx of colonoscopy History of orchiectomy Family History Father Myocardial infarction CVD (cardiovascular disease) Diabetes mellitus Mother Diabetes mellitus HTN (hypertension) Brother In good health Sister In good health Social History Household Members: Other Household Members Other:: from [facility] Housing: Other Housing Other:: [facility] Do you presently have visiting nurse or other home services: Yes Unable to assess alcohol history related to: Unknown Alcohol intake: never 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 Patient Tobacco Use Status: Never used Tobacco e-Cigarette/Vaping Use: Never Used Second Hand Smoke Exposure: No Advance Directives Date on File: 05/23/21 service: No Current occupational status: disabled Cognitive needs: Yes (walker) Hearing needs: No Vision needs: Yes (glasses) Questionnaire PHQ-9 Over the last 2 weeks, how often have you been bothered by any of the following problems? 1. Little interest or pleasure in doing things: not at all 2. Feeling down, depressed, or hopeless: not at all 3. Trouble falling or staying asleep, or sleeping too much: not at all 4. Feeling tired or having little energy: not at all 5. Poor appetite or overeating: not at all 6. Feeling bad about yourself - or that you are a failure or have let yourself or your family down: not at all 7. Trouble concentrating on things, such as reading the newspaper or watching television: not at all 8. Moving or speaking so slowly that other people could have noticed. Or the opposite - being so fidgety or restless that you have been moving around a lot more than usual: not at all 9. Thoughts that you would be better off or of hurting yourself in some way: several days Total score: 1 Depression Screening Interpretation: Positive Depression Screening Follow-up: Other (sent to ED ) Depression Screening Done: Yes Source: Developed by Drs. Wellington López, Monica Jackson, Ray Nguyen and colleagues, with an educational perez from [employer]. Thrive Questionnaire Date Thrive assessed: 11/14/23 AUDIT C Alcohol Use Questionnaire (AUDIT-C) 1. How often do you have a drink containing alcohol?: Never 2. How many drinks containing alcohol do you have on a typical day when you are drinking?: 1 or 2 (0) 3. How often do you have six or more drinks on one occasion?: Never Total Score: 0 Score Reviewed/Action Taken: Yes CHANI-7 AMB Questionnaire CHANI-7 Date CHANI - 7 assessed: 11/14/23 Source: Developed by Drs. Wellington López, oMnica Jackson, Ray Nguyen and colleagues, with an educational perez from [employer]. Physical exam (Primary Care) Vital Signs: Last Vital Signs Pulse 76 04/07/24 14:08 BP 136/68 04/07/24 14:08 Pulse Ox 98 04/07/24 14:08 Oxygen Delivery Method Room Air 04/07/24 14:08 BMI result Body Mass Index 40.4 Tobacco/Smoking Status: Tobacco use Status Tobacco use date assessed 04/07/24 04/07/24 14:21 Patient Tobacco Use Status Never used Tobacco 04/07/24 14:09 e-Cigarette/Vaping Use Never Used 04/07/24 14:09 PHQ-9: PHQ-9 Score PHQ-9: Total score 1 04/07/24 14:09 Depression Screening Interpretation: Positive Depression Screening Follow-up: Other (sent to ED ) Thrive Assessment: Date of Thrive Assessment Date Thrive assessed 11/14/23 04/07/24 14:09 Const General: alert; No acute distress Eyes Conjunctivae: conjunctivae normal Resp Auscultation: clear to auscultation bilaterally Cardio Rate: regular rate Rhythm: regular rhythm GI Inspection: Yes normal to inspection Extrem Other: Patient has bilateral leg braces due to footdrop. Does walk with the walker. Results AMB Hemoglobin A1c AMB Hemoglobin A1c 5.5 % Last Edit by YANNA Pinon on 04/07/24 14:23 Results Reviewed Results Reviewed: Laboratory Last Values Hgb A1c (Clinic) 5.5 % (4.0-6.0) 04/07/24 14:23 Assessment and Plan Assessment & Plan (1) Cerebellar ataxia: Code(s): G11.9 - Hereditary ataxia, unspecified Plan: Patient uses the walker already but has been advised to keep the staff informed of what activity has to do to prevent falls and keep him safe. (2) Type 2 diabetes mellitus with hyperglycemia: Code(s): E11.65 - Type 2 diabetes mellitus with hyperglycemia Plan: Decrease the amount of carbohydrate intake, pasta, bread, rice and potatoes are all sugar and that is aside from all the sweet stuff, remember that fruits are good but they are Sweet also. Patient runs out of the [facility] but is on Jardiance, metformin. A1c is controlled but he does have some anemia (3) GERD (gastroesophageal reflux disease): Code(s): K21.9 - Gastro-esophageal reflux disease without esophagitis Qualifiers: Esophagitis presence: esophagitis presence not specified Qualified Code(s): K21.9 - Gastro-esophageal reflux disease without esophagitis Plan: Avoid the foods that causes that usually spicy foods, tomato products, juices, coffee, soda and foods that your sensitive to. After eating do not lie down, allow 3-4 hours before in lie down. And keep the head of bed above 30 degrees to avoid the acid from going up. (4) Dysphagia: Code(s): R13.10 - Dysphagia, unspecified Plan: Patient has had modified barium swallow and has been advised thick it (5) Essential hypertension: Code(s): I10 - Essential (primary) hypertension Plan: Continue with blood pressure medication. Decrease salt intake and exercise propranolol 20 mg t.i.d. hydralazine 50 mg t.i.d. Orders: Orders AMB Hemoglobin A1c Today E11.65 - Type 2 diabetes mellitus with hyperglycemia Medications: New lancets (Prodigy Lancets) As directed check BS twice a day 200 ea 3RF E11.65 - Type 2 diabetes mellitus with hyperglycemia lancing device (Prodigy Lancing Device) As directed 1 ea 0RF E11.65 - Type 2 diabetes mellitus with hyperglycemia Refilled alvarez.stocking,knee,reg,xlrg As directed 10-20 mm HG 12 ea 0RF M79.89 - Other specified soft tissue disorders fluticasone propionate 50 mcg/actuation (Flonase Allergy Relief) administer into each nostril 2 sprays intranasal DAILY 16 grams 12RF E11.65 - Type 2 diabetes mellitus with hyperglycemia dextromethorphan polistirex ER (Delsym 12 hour) 10 mL PO Q12H PRN 89 mL 0RF cough E11.65 - Type 2 diabetes mellitus with hyperglycemia blood-glucose meter (OneTouch Ultra2 Meter) test once daily 1 ea 0RF E11.8 - Type 2 diabetes mellitus with unspecified complications blood sugar diagnostic (OneTouch Verio test strips) As directed check blood sugar TID 100 ea 12RF E11.29 - Type 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 Discontinued tirzepatide Discontinued Reason: Doctor's Order 5 mg (0.5 mL) subcut QWEEK 4 weeks 2 mL 1RF E11.65 - Type 2 diabetes mellitus with hyperglycemia Coding Level of Care Code Est Pt Level 4 (28313) Diagnoses Cerebellar ataxia G11.9 Type 2 diabetes mellitus with hyperglycemia E11.65 Gastroesophageal reflux disease, unspecified whether esophagitis present K21.9 Esophagitis presence: esophagitis presence not specified Dysphagia R13.10 Essential hypertension I10 Additional Codes PHQ-9 - 38265 - PHQ-9 Billing: ([id number])
== END 2024-04-07 15:22 | disposition home or self-care (01) ==
PROVIDERS: PCP Internal Medicine; Visit Provider Internal Medicine
DX: G11.9 Hereditary ataxia, unspecified (principal); E11.65 Type 2 diabetes mellitus with hyperglycemia; K21.9 Gastro-esophageal reflux disease without esophagitis; R13.10 Dysphagia, unspecified; I10 Essential (primary) hypertension
CPT/HCPCS: 83036; 99214

== ENCOUNTER 2024-04-12 00:03 | Emergency (ER) | payer MEDICARE, MEDICAID, SELFPAY ==
--- NOTE | ~2024-04-12 | CT_ITS ---
EXAMINATION: NONCONTRAST HEAD CT NONCONTRAST CERVICAL SPINE CT INDICATION INFORMATION: Fall COMPARISON: 01/14/2024 TECHNIQUE: Separate noncontrast CT examinations of the head and cervical spine were performed. Coronal head CT images and coronal and sagittal cervical spine images were created at the technologist workstation. DLP: 1339 mGy-cm DOSE LOWERING TECHNIQUES: This CT examination was performed using dose optimization techniques as appropriate, variously including the following: - Automated exposure control - Adjustment of mA and/or kV according to patient size (this includes techniques or standardized protocols for targeted exams were dose is matched to indication/reason for exam; i.e. extremities or head) - Use of iterative reconstruction technique FINDINGS: Head: There is no evidence of acute intracranial hemorrhage or territorial infarction. No abnormal mass-effect or midline shift is seen. Shell to white matter differentiation is well preserved. No extra-axial fluid collections are identified. The ventricles are normal in size. There is mild periventricular white matter hypoattenuation consistent with chronic small vessel ischemic disease. Mild volume loss is noted. The osseous structures and soft tissues are normal. The mastoid air cells and visualized portions of the paranasal sinuses are well-aerated. Cervical spine: There is anatomic alignment of the vertebral bodies and posterior elements. Vertebral body heights are maintained. Multilevel endplate osteophytes throughout the cervical spine. Mild disc space narrowing of the lower cervical spine. No evidence of acute fracture. No prevertebral soft tissue swelling. Visualized portions of the lung apices are unremarkable. The thyroid gland is unremarkable. CT/CT cervical spine wo IV con IMPRESSION: No acute findings identified in the head or cervical spine.
[2024-04-12 00:44] VITALS: BP 140/90; PULSE 60; O2SAT 98; BMI 39.9
[2024-04-12 01:06] VITALS: BP 129/75; PULSE 63; RESP 16; TEMP 36.3; O2SAT 96
--- NOTE | 2024-04-12 01:26 | PC.NURSE ---
pt now making SI statements, i want to choke myself .
--- NOTE | 2024-04-12 03:07 | ED_ITS ---
HPI - Fall General Chief Complaint: Fall Stated Complaint: FALL Time Seen by Provider: 04/12/24 03:05 Source: patient and EMS Mode of arrival: EMS History of Present Illness ED Provider: preethi JAIMES Narrative: Patient with history of congenital developmental delay mental and behavioral problems comes here as he was then longterm and fell in his bathroom no loss of consciousness no laceration no abrasion no signs of injury, patient says that he hit the wall patient after coming to the ER says he does not like to go back to longterm in his suicidal which has similar situation in the past multiple times according to nursing staff and longterm patient tried to go away from the longterm does not want to go back that is why he keeps saying that he is suicidal but injury I use not Related Data Home Medications ?Medication ?Instructions ?Recorded ?Confirmed divalproex 500 mg tablet,extended 1,000 mg PO BID 06/10/23 02/04/24 release 24 hr gabapentin 100 mg capsule 200 mg PO BID 06/10/23 02/04/24 risperidone 3 mg tablet 3 mg PO BID 06/10/23 02/04/24 albuterol sulfate 90 mcg/actuation 2 puff inhalation Q6H PRN Wheezing 07/29/23 02/04/24 aerosol inhaler guaifenesin 100 mg/5 mL oral 200 mg PO Q4H PRN Cough 07/29/23 02/04/24 liquid (Siltussin SA) ondansetron 4 mg disintegrating 4 mg PO Q6H PRN Nausea And Vomiting 07/29/23 02/04/24 tablet hydroxyzine pamoate 50 mg capsule 50 mg PO DAILY PRN 10/13/23 02/04/24 AGITATION/ANXIETY neomycin-bacitracn Zn-polymyxn 3.5 1 appl topical BID 10/13/23 02/04/24 mg-400 unit-5,000 unit top oint pkt (Triple Antibiotic) fluoride (sodium) 1.1 % dental 1 appl dental BID 12/23/23 02/04/24 paste (PreviDent 5000 Booster Plus) sennosides 8.6 mg tablet (senna) 17.2 mg PO DAILY PRN Constipation 12/23/23 02/04/24 Previous Rx's ?Medication ?Instructions ?Recorded lancets 30 gauge (OneTouch #100 ea 08/08/23 UltraSoft 2 Lancet) bismuth subsalicylate 262 mg/15 mL 524 mg (30 mL) PO QID PRN diarrhea 08/01/23 oral suspension (Pepto-Bismol) 7 days #1,200 mL nystatin 100,000 unit/gram topical 1 appl topical TID PRN Rash #60 08/04/23 powder grams empagliflozin 25 mg tablet 25 mg PO DAILY #30 tabs 08/18/23 (Jardiance) propranolol 20 mg tablet 20 mg PO TID@0800,1600,2000 90 09/24/23 days #270 tabs lactase 3,000 unit tablet (Lactaid) 3,000 unit PO TIDWM PRN Lactose 11/14/23 Intolerance #30 tabs cholecalciferol (vitamin D3) 25 25 mcg PO DAILY #30 tabs 12/16/23 mcg (1,000 unit) tablet hydralazine 50 mg tablet 50 mg PO TID #90 tabs 01/29/24 acetaminophen 325 mg tablet 650 mg (2 x 325 mg) PO Q4H PRN 02/04/24 fever or pain 90 days #180 tabs methylcellulose (laxative) 500 mg 1,000 mg (2 x 500 mg) PO DAILY 30 02/26/24 tablet (Citrucel) days #60 tabs cyanocobalamin (vitamin B-12) 1,000 mcg PO BEDTIME #90 tabs 02/27/24 1,000 mcg tablet ferrous sulfate 325 mg (65 mg 325 mg PO BID #180 tabs 02/27/24 iron) tablet mometasone-formoterol HFA 200 2 puff inhalation BID #13 grams 03/02/24 mcg-5 mcg/actuation aerosol inhaler (Dulera) fluticasone propionate 50 2 spray intranasal BID #16 grams 03/06/24 mcg/actuation nasal spray,suspension starch (thickening) (Diafoods See Rx Instructions PO .COMPLEX 30 03/17/24 Thick-It oral powder) days #850 grams atorvastatin 10 mg tablet 10 mg PO BEDTIME #90 tabs 03/25/24 esomeprazole magnesium 40 mg 40 mg PO DAILY #30 caps 03/25/24 capsule,delayed release (Nexium) metformin 500 mg tablet 500 mg PO BID #180 tabs 03/25/24 blood sugar diagnostic (OneTouch #100 ea 04/07/24 Verio test strips) blood sugar diagnostic (Prodigy No #50 ea 04/07/24 Coding strips) blood-glucose meter (OneTouch #1 ea 04/07/24 Ultra2 Meter) blood-glucose meter (Prodigy #1 ea 04/07/24 Autocode Blood Glucose Monitoring System) alvarez.stocking,knee,reg,xlrg #12 ea 04/07/24 dextromethorphan polistirex 30 10 ml PO Q12H PRN cough #89 mL 04/07/24 mg/5 mL oral susp ext.release 12hr (Delsym 12 hour) fluticasone propionate 50 2 spray intranasal DAILY #16 grams 04/07/24 mcg/actuation nasal spray,suspension (Flonase Allergy Relief) lancets 28 gauge (Think Upgrade Lancets) #200 ea 04/07/24 lancing device (Drawn to Scaley Lancing #1 ea 04/07/24 Device) Allergies Allergy/AdvReac Type Severity Reaction Status Date / Time Sulfa (Sulfonamide Allergy Severe CHAVEZ Verified 04/12/24 00:46 Antibiotics) ALICAI REACTION, Chavez Alicia trimethoprim Allergy Mild UNKNOWN Verified 04/12/24 00:46 lactose AdvReac Mild STOMACH Verified 04/12/24 00:46 UPSET Review of Systems Review of Systems: Yes all other systems are reviewed and are negative [facility] Past Medical History Medical History Dysphagia Back pain Leg swelling Ankle pain, left Feeling suicidal Tinea cruris Atrial flutter Atrial fib/flutter, transient A-fib Arrhythmia Abnormal EKG Contusion of left ankle Annual physical exam Abdominal pain Positive colorectal cancer screening using Cologuard test Precordial chest pain Hospital discharge follow-up Chest pain Right ankle pain Musculoskeletal chest pain Left-sided chest pain Back pain Fall Acute kidney injury Gait instability Suicidal ideation COVID-19 Hypomagnesemia Diarrhea Abdominal pain Left ankle sprain Seizure disorder Hypertension Anxiety Hyponatremia Cerebellar ataxia Anemia Lactose intolerance Vertigo Asthma Mental disability Type 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 Proteinuria Hyperlipidemia LDL goal <100 Essential hypertension Surgical History Hx of colonoscopy History of orchiectomy Family History Family History Father Myocardial infarction CVD (cardiovascular disease) Diabetes mellitus Mother Diabetes mellitus HTN (hypertension) Brother In good health Sister In good health Social History Social History Household Members: Other Household Members Other:: from longterm Housing: Other Housing Other:: longterm Do you presently have visiting nurse or other home services: Yes Unable to assess alcohol history related to: Unknown Alcohol intake: never 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 Patient Tobacco Use Status: Never used Tobacco e-Cigarette/Vaping Use: Never Used Second Hand Smoke Exposure: No Advance Directives: Yes Advance Directives on File: Yes Advance Directives Date on File: 05/23/21 service: No Current occupational status: disabled Cognitive needs: Yes (walker) Hearing needs: No Vision needs: Yes (glasses) Physical Exam Vital Signs: Vital Signs: Last Vital Signs Temp 0 F L 04/12/24 05:11 Pulse 0 L 04/12/24 05:11 Resp 16 04/12/24 05:11 BP 000/00 L 04/12/24 05:11 Pulse Ox 96 04/12/24 01:06 BMI result Body Mass Index 39.9 Appearance: Alert. Oriented X3. No acute distress. Eyes: PERRLA, No Nystagmus ENT: Pharynx normal. Oral Mucosa moist atraumatic normocephalic Neck: Normal inspection. Neck supple. CVS: Normal heart rate and rhythm. Pulses normal. Respiratory: No respiratory distress. Equal air entry bilateral, no wheezing/rales/rhonchi Abdomen: Soft and nontender. Bowel sounds are present, no mass palpable, no CVA tenderness Skin: Skin warm and dry. Normal skin color. Normal skin turgor. Extremities: No lower extremity edema. No calf tenderness Psych: Vague suicidal without any plan Neuro: Oriented X 3. No motor deficit. Medical Decision Making Independent Interpretation I performed an independent interpretation of an: CT Scan Radiology Impression Discussion of test interpretation with radiology: I have reviewed the radiologist's reading. Discharge Plan Discharge Clinical Impression: Fall Patient Disposition: Xfer Other Transfer Details: Patient's CT scan of the head and cervical spine negative for any fracture or bleed Instructions: Fall Prevention (ED) Additional Instructions: CT scan of the head and C-spine negative for acute Follow with your therapist Prescriptions: No Action (DME) lancets [OneTouch UltraSoft 2 Lancet] 30 gauge misc See Rx Instructions .Route Qty: 100 5RF Rx Instructions: test once daily nystatin 100,000 unit/gram powder 1 appl TOPICAL TID PRN (Reason: Rash) Qty: 60 0RF propranolol 20 mg tablet 20 mg PO TID@0800,1600,2000 90 Days Qty: 270 3RF cholecalciferol (vitamin D3) 25 mcg (1,000 unit) tablet 25 mcg PO DAILY Qty: 30 11RF hydralazine 50 mg tablet 50 mg PO TID Qty: 90 3RF Citrucel 500 mg tablet 1,000 mg PO DAILY 30 Days Qty: 60 2RF cyanocobalamin (vitamin B-12) 1,000 mcg tablet 1,000 mcg PO BEDTIME Qty: 90 0RF ferrous sulfate 325 mg (65 mg iron) tablet 325 mg PO BID Qty: 180 0RF Dulera 200-5 mcg/actuation HFA aerosol inhaler 2 puff inhalation BID Qty: 13 3RF fluticasone propionate 50 mcg/actuation spray,suspension 2 spray INTRANASAL BID Qty: 16 0RF Diafoods Thick-It Powder See Rx Instructions PO .COMPLEX 30 Days Qty: 850 12RF Rx Instructions: Add thick it powder to food and beverage using enclosed measuring spoon TID atorvastatin 10 mg tablet 10 mg PO BEDTIME Qty: 90 0RF metformin 500 mg tablet 500 mg PO BID Qty: 180 0RF esomeprazole magnesium [Nexium] 40 mg capsule,delayed release(DR/EC) 40 mg PO DAILY Qty: 30 0RF (DME) blood-glucose meter [Prodigy Autocode Monitor Syst] Misc See Rx Instructions .Route Qty: 1 0RF Rx Instructions: As directed (DME) Prodigy No Coding Strip See Rx Instructions .Route Qty: 50 0RF Rx Instructions: As directed 3 times per day hydroxyzine pamoate 50 mg capsule 50 mg PO DAILY PRN (Reason: AGITATION/ANXIETY) Triple Antibiotic 3.5-400-5,000 [id number] Ointment In Packet 1 appl TOPICAL BID risperidone 3 mg tablet 3 mg PO BID divalproex 500 mg tablet extended release 24 hr 1,000 mg PO BID gabapentin 100 mg capsule 200 mg PO BID guaifenesin [Siltussin SA] 100 mg/5 mL Liquid 200 mg PO Q4H PRN (Reason: Cough) albuterol sulfate 90 mcg/actuation Hfa Aerosol Inhaler 2 puff INHALATION Q6H PRN (Reason: Wheezing) ondansetron 4 mg Tablet,Disintegrating 4 mg PO Q6H PRN (Reason: Nausea And Vomiting) sennosides [senna] 8.6 mg Tablet 17.2 mg PO DAILY PRN (Reason: Constipation) fluoride (sodium) [PreviDent 5000 Booster Plus] 1.1 % Paste 1 appl DENTAL BID Jardiance 25 mg tablet 25 mg PO DAILY Qty: 30 9RF bismuth subsalicylate [Pepto-Bismol] 262 mg/15 mL suspension 524 mg PO QID PRN (Reason: diarrhea) 7 Days Qty: 1200 0RF lactase [Lactaid] 3,000 unit tablet 3,000 unit PO TIDWM PRN (Reason: Lactose Intolerance) Qty: 30 11RF Rx Instructions: take at the start of drinking milk only acetaminophen 325 mg tablet 650 mg PO Q4H PRN (Reason: fever or pain) 90 Days Qty: 180 2RF (DME) alvarez.stocking,knee,reg,xlrg Misc See Rx Instructions .Route Qty: 12 0RF Rx Instructions: As directed 10-20 mm HG (DME) lancing device [Prodigy Lancing Device] Misc See Rx Instructions .Route Qty: 1 0RF Rx Instructions: As directed (DME) lancets [Prodigy Lancets] 28 gauge misc See Rx Instructions .Route Qty: 200 3RF Rx Instructions: As directed check BS twice a day fluticasone propionate [Flonase Allergy Relief] 50 mcg/actuation spray,suspension 2 spray intranasal DAILY Qty: 16 12RF Rx Instructions: administer into each nostril dextromethorphan polistirex [Delsym 12 hour] 30 mg/5 mL suspension,extended rel 12 hr 10 ml PO Q12H PRN (Reason: cough) Qty: 89 0RF (DME) OneTouch Verio test strips Strip See Rx Instructions .Route Qty: 100 12RF Rx Instructions: As directed check blood sugar TID (DME) blood-glucose meter [Wireless SafetyTouch Ultra2 Meter] Misc See Rx Instructions .Route Qty: 1 0RF Rx Instructions: test once daily Interventions: ED Discharge Assessment Last Done: 04/12/24 05:11 Discharge Date/Time: 04/12/24 05:12 Print Language: Botswanan
[2024-04-12 03:53] VITALS: RESP 16
--- NOTE | 2024-04-12 04:00 | PC.NURSE ---
spoke with senior living. staff will come to p/u pt
--- NOTE | 2024-04-12 04:32 | PC.NURSE ---
pt provided with sandwich and drink while awaiting p/u
--- NOTE | 2024-04-12 05:10 | PC.NURSE ---
pt getting increasingly agitated with staff. aware. halfway staff here to p/u pt, state this is his baseline and are okay to take him home. aware
[2024-04-12 05:11] VITALS: BP 000/00; PULSE 0; RESP 16; TEMP -17.7; TEMP 0
== END 2024-04-12 05:12 | disposition other institution (70) ==
PROVIDERS: Emergency Provider Internal Medicine
DX: R29.6 Repeated falls (principal); Z71.1 Person with feared health complaint in whom no diagnosis is made
CPT/HCPCS: 70450; 72125; 99283; 99284

== ENCOUNTER 2024-04-21 13:38 | Outpatient (AMB) | payer MEDICARE, MEDICAID, SELFPAY ==
[2024-04-21 13:49] VITALS: BP 138/82; PULSE 73; O2SAT 98; BMI 39.6
--- NOTE | 2024-04-21 13:49 | A.OFFPC_ITS ---
Vital Signs 04/21/24 13:49 Height 5 ft 5 in Weight 238 lb BMI 39.6 BP 138/82 Blood Pressure Location Lt brachial Position Sitting Pulse 73 Pulse Source Pulse Oximeter Pulse Oximetry (%) 98 Oxygen Delivery Method Room Air Intake Visit Reasons: [facility] 04/12 fall Allergies Sulfa (Sulfonamide Antibiotics) Allergy (Severe, Verified 04/21/24 13:50) LANDEROS ALICIA REACTION, Landeros Alicia trimethoprim Allergy (Mild, Verified 04/21/24 13:50) UNKNOWN lactose Adverse Reaction (Mild, Verified 04/21/24 13:50) STOMACH UPSET Tobacco use date assessed: 04/07/24 Dental Screening Dental Screen Date: 04/07/24 HPI [facility] 04/12 fall HPI Details 53-year-old obese male with a history of cerebellar ataxia, controlled diabetes mellitus GERD hypertension last seen in 03/29/2024. Patient is up-to- date with a colonoscopy 09/29/2022 with tubular adenoma. Noted ER visit 04/29/2024 patient was seen by therapist. noted hematoma 3 days ago R upper back fall was before [facility] Medical History (Updated 04/21/24 @ 14:52 by Robert Sumner MD) Dysphagia Back pain Leg swelling Ankle pain, left Feeling suicidal Tinea cruris Atrial flutter Atrial fib/flutter, transient A-fib Arrhythmia Abnormal EKG Contusion of left ankle Annual physical exam Abdominal pain Positive colorectal cancer screening using Cologuard test Precordial chest pain Hospital discharge follow-up Chest pain Right ankle pain Musculoskeletal chest pain Left-sided chest pain Back pain Fall Acute kidney injury Gait instability Suicidal ideation COVID-19 Hypomagnesemia Diarrhea Abdominal pain Left ankle sprain Seizure disorder Hypertension Anxiety Hyponatremia Cerebellar ataxia Anemia Lactose intolerance Vertigo Asthma Mental disability Type 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 Proteinuria Hyperlipidemia LDL goal <100 Essential hypertension Surgical History Hx of colonoscopy History of orchiectomy Family History Father Myocardial infarction CVD (cardiovascular disease) Diabetes mellitus Mother Diabetes mellitus HTN (hypertension) Brother In good health Sister In good health Social History Household Members: Other Household Members Other:: from snf Housing: Other Housing Other:: snf Do you presently have visiting nurse or other home services: Yes Unable to assess alcohol history related to: Unknown Alcohol intake: never 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 Patient Tobacco Use Status: Never used Tobacco e-Cigarette/Vaping Use: Never Used Second Hand Smoke Exposure: No Advance Directives Date on File: 05/23/21 service: No Current occupational status: disabled Cognitive needs: Yes (walker) Hearing needs: No Vision needs: Yes (glasses) Questionnaire PHQ-9 Over the last 2 weeks, how often have you been bothered by any of the following problems? 1. Little interest or pleasure in doing things: not at all 2. Feeling down, depressed, or hopeless: not at all 3. Trouble falling or staying asleep, or sleeping too much: not at all 4. Feeling tired or having little energy: not at all 5. Poor appetite or overeating: not at all 6. Feeling bad about yourself - or that you are a failure or have let yourself or your family down: not at all 7. Trouble concentrating on things, such as reading the newspaper or watching television: not at all 8. Moving or speaking so slowly that other people could have noticed. Or the opposite - being so fidgety or restless that you have been moving around a lot more than usual: not at all 9. Thoughts that you would be better off or of hurting yourself in some way: several days Total score: 1 Depression Screening Interpretation: Positive Depression Screening Follow-up: Other (sent to ED ) Depression Screening Done: Yes Source: Developed by Drs. Wellington López, Monica Jackson, Ray Nguyen and colleagues, with an educational perez from [employer]. Thrive Questionnaire Date Thrive assessed: 11/14/23 AUDIT C Alcohol Use Questionnaire (AUDIT-C) 1. How often do you have a drink containing alcohol?: Never 2. How many drinks containing alcohol do you have on a typical day when you are drinking?: 1 or 2 (0) 3. How often do you have six or more drinks on one occasion?: Never Total Score: 0 Score Reviewed/Action Taken: Yes CHANI-7 AMB Questionnaire CHANI-7 Date CHANI - 7 assessed: 11/14/23 Source: Developed by Drs. Wellington López, Monica Jackson, Ray Nguyen and colleagues, with an educational perez from [employer]. Physical exam (Primary Care) Vital Signs: Last Vital Signs Pulse 73 04/21/24 13:49 BP 138/82 04/21/24 13:49 Pulse Ox 98 04/21/24 13:49 Oxygen Delivery Method Room Air 04/21/24 13:49 BMI result Body Mass Index 39.6 Tobacco/Smoking Status: Tobacco use Status Tobacco use date assessed 04/07/24 04/21/24 13:56 Patient Tobacco Use Status Never used Tobacco 04/21/24 13:56 e-Cigarette/Vaping Use Never Used 04/21/24 13:56 PHQ-9: PHQ-9 Score PHQ-9: Total score 1 04/21/24 14:34 Depression Screening Interpretation: Positive Depression Screening Follow-up: Other (sent to ED ) Thrive Assessment: Date of Thrive Assessment Date Thrive assessed 11/14/23 04/21/24 13:56 Const General: alert; No acute distress Eyes Conjunctivae: conjunctivae normal Resp Auscultation: clear to auscultation bilaterally Cardio Rate: regular rate Rhythm: regular rhythm GI Inspection: Yes normal to inspection Assessment and Plan Assessment & Plan (1) Cerebellar ataxia: Code(s): G11.9 - Hereditary ataxia, unspecified Plan: discussed about concern with gaitr instability (2) Schizophrenia: Code(s): F20.9 - Schizophrenia, unspecified (3) Hematoma: Comment: right upper back 04/2024 Code(s): T14.8XXA - Other injury of unspecified body region, initial encounter (4) Atrial flutter: Code(s): I48.92 - Unspecified atrial flutter (5) Dysphagia: Code(s): R13.10 - Dysphagia, unspecified (6) Benign positional vertigo: Code(s): H81.10 - Benign paroxysmal vertigo, unspecified ear Plan: increase oral fluid, discussed about med hydroxyzine, risperidone and gabapentin Orders: Orders XR ribs RT min 3V w CXR1V Today T14.8XXA - Other injury of unspecified body region, initial encounter Referrals Cardiology Referral I48.92 - Unspecified atrial flutter Coding Level of Care Code Est Pt Level 4 (59255) Diagnoses Cerebellar ataxia G11.9 Schizophrenia F20.9 Hematoma T14.8XXA Atrial flutter I48.92 Dysphagia R13.10 Benign positional vertigo H81.10 Additional Codes PHQ-9 - 79392 - PHQ-9 Billing: ([id number])
== END 2024-04-21 15:01 | disposition home or self-care (01) ==
PROVIDERS: PCP Internal Medicine; Visit Provider Internal Medicine
DX: G11.9 Hereditary ataxia, unspecified (principal); F20.9 Schizophrenia, unspecified; I48.92 Unspecified atrial flutter; T14.8XXA Other injury of unspecified body region, initial encounter; R13.10 Dysphagia, unspecified
CPT/HCPCS: 99214

== ENCOUNTER 2024-05-24 10:09 | Outpatient (AMB) | payer MEDICARE, MEDICAID, SELFPAY ==
--- NOTE | 2024-05-24 10:30 | AM.OFFWIN_ITS ---
Intake Vital Signs 05/24/24 10:31 Height 5 ft 5 in Weight 235 lb 6 oz BMI 39.2 BP 140/82 H Blood Pressure Location Rt brachial Position Sitting Pulse 90 Pulse Source Pulse Oximeter Temp 98 F Temp Source Oral Pulse Oximetry (%) 99 Oxygen Delivery Method Room Air Intake Visit Reasons: EP rt foot toe pain Intake Note: Pt is here today for Rt toe pain, pt states woke up yesterday with pain. No injury mentioned. Patient Tobacco Use Status: Never used Tobacco Allergies Sulfa (Sulfonamide Antibiotics) Allergy (Severe, Verified 05/24/24 10:31) CHAVEZ ALICIA REACTION, Chavez Alicia trimethoprim Allergy (Mild, Verified 05/24/24 10:31) UNKNOWN lactose Adverse Reaction (Mild, Verified 05/24/24 10:31) STOMACH UPSET Do you need a note to return to daycare/school/sports/work: No HPI HPI Comments History of Present Illness Details Patient presents to the walk-in today for sick visit, accompanied by nursing home staff Complaining of right 4th toe pain and bruising Denies known injury, states noticed it when he woke this morning Pain is worse with walking and palpation COUNTS INCLUDE 234 BEDS AT THE [facility] Medical History (Updated 05/24/24 @ 11:06 by Veronica Clifton APRN, ROLLING MACHINE OPERATOR AUTOMATIC) Dysphagia Back pain Leg swelling Ankle pain, left Feeling suicidal Tinea cruris Atrial flutter Atrial fib/flutter, transient A-fib Arrhythmia Abnormal EKG Contusion of left ankle Annual physical exam Abdominal pain Positive colorectal cancer screening using Cologuard test Precordial chest pain Hospital discharge follow-up Chest pain Right ankle pain Musculoskeletal chest pain Left-sided chest pain Back pain Fall Acute kidney injury Gait instability Suicidal ideation COVID-19 Hypomagnesemia Diarrhea Abdominal pain Left ankle sprain Seizure disorder Hypertension Anxiety Hyponatremia Cerebellar ataxia Anemia Lactose intolerance Vertigo Asthma Mental disability Type 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 Proteinuria Hyperlipidemia LDL goal <100 Essential hypertension Surgical History Hx of colonoscopy History of orchiectomy Family History Father Myocardial infarction CVD (cardiovascular disease) Diabetes mellitus Mother Diabetes mellitus HTN (hypertension) Brother In good health Sister In good health Social History Household Members: Other Household Members Other:: from nursing home Housing: Other Housing Other:: nursing home Do you presently have visiting nurse or other home services: Yes Unable to assess alcohol history related to: Unknown Alcohol intake: never 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 Patient Tobacco Use Status: Never used Tobacco e-Cigarette/Vaping Use: Never Used Second Hand Smoke Exposure: No Advance Directives Date on File: 05/23/21 service: No Current occupational status: disabled Cognitive needs: Yes (walker) Hearing needs: No Vision needs: Yes (glasses) Review of Systems Const All systems reviewed & are unremarkable except as noted in HPI and below Physical Exam Vital Signs: Last Vital Signs Temp 98 F 05/24/24 10:31 Pulse 90 05/24/24 10:31 BP 140/82 H 05/24/24 10:31 Pulse Ox 99 05/24/24 10:31 Oxygen Delivery Method Room Air 05/24/24 10:31 BMI result Body Mass Index 39.2 General: awake, alert, oriented. Answers questions appropriately. Fully engaged in examination. Skin: warm, dry, intact HEENT: Normocephalic. Hearing intact. Cardiac: External chest normal in appearance. Respiratory: No cough, audible wheezing or stridor. Abdomen: without gross distension. MS: Right 4th toe: Bruising, tender to palpation, pain with movement. Neurological: Oriented to person, place, time and situation. Thought process intact. Ambulates with the use of a Rollator walker Psychiatric: Appropriate mood and affect. Good judgment and insight. Results Reviewed Results Reviewed: X-ray ordered independently reviewed: No fracture or dislocation Assessment & Plan Assessment & Plan (1) Toe pain, right: Code(s): M79.674 - Pain in right toe(s) Plan X-ray ordered independently reviewed: No fracture dislocation Wear the postop shoe until pain-free. Tylenol as needed, already on patient's medication list. No prescription required at this time Work note provided Follow up with PCP or return here for any new or worsening symptoms Coding Level of Care Code Est Pt Level 4 (20503) Diagnoses Toe pain, right M79.674
[2024-05-24 10:31] VITALS: BP 140/82; PULSE 90; TEMP 36.6; O2SAT 99; BMI 39.2
== END 2024-05-24 12:03 | disposition home or self-care (01) ==
PROVIDERS: PCP Internal Medicine; Visit Provider Registered Nurse Emergency
DX: M79.674 Pain in right toe(s) (principal)
CPT/HCPCS: 99213

== ENCOUNTER 2024-05-24 11:10 | Outpatient (REF) | payer MEDICARE, MEDICAID, SELFPAY ==
--- NOTE | ~2024-05-24 | XR_ITS ---
EXAMINATION: XR FOOT, RIGHT CLINICAL INFORMATION: Right toe pain COMPARISON: None available. TECHNIQUE: AP, lateral, and oblique views of the right foot. FINDINGS: There is generalized osteopenia. Some mild degenerative changes are seen at the interphalangeal joints. No fracture is or bony destructive lesions are seen. There is diffuse soft tissue swelling of the foot. Tiny calcaneal spurs are present. There are to 01/12/2024 study, there's been no interval change. XR/XR foot RT min 3V IMPRESSION: Osteopenia and mild degenerative changes. No acute finding.
== END 2024-05-24 11:11 | disposition home or self-care (01) ==
LOC: HO.HMGCX 11:10
PROVIDERS: PCP Internal Medicine; Visit Provider Registered Nurse Emergency
DX: M79.674 Pain in right toe(s) (principal)
CPT/HCPCS: 73630

== ENCOUNTER 2024-05-27 10:14 | Outpatient (AMB) | payer MEDICARE, MEDICAID, SELFPAY ==
[2024-05-27 10:27] VITALS: BP 130/78; PULSE 77; O2SAT 94; BMI 38.9
--- NOTE | 2024-05-27 10:27 | MHC.PC.OV ---
Vital Signs 05/27/24 10:27 Height 5 ft 5 in Weight 234 lb BMI 38.9 BP 130/78 Blood Pressure Location Lt brachial Position Sitting Pulse 77 Pulse Source Pulse Oximeter Pulse Oximetry (%) 94 Oxygen Delivery Method Room Air Intake Visit Reasons: Annual Exam Allergies Sulfa (Sulfonamide Antibiotics) Allergy (Severe, Verified 05/27/24 10:28) LANDEROS ALICIA REACTION, Landeros Alicia trimethoprim Allergy (Mild, Verified 05/27/24 10:28) UNKNOWN lactose Adverse Reaction (Mild, Verified 05/27/24 10:28) STOMACH UPSET Medication List - Last Reconciled 05/27/24 by Robert Sumner MD acetaminophen 650 mg (2 x 325 mg) PO Q4H PRN 90 days albuterol sulfate 90 mcg/actuation 2 puffs inhalation Q6H PRN atorvastatin 10 mg PO BEDTIME bismuth subsalicylate (Pepto-Bismol) 524 mg (30 mL) PO QID PRN 7 days blood sugar diagnostic (magnify360 No Coding strips) As directed 3 times per day blood sugar diagnostic (fabrikTouch Verio test strips) As directed check blood sugar TID blood-glucose meter (Strikefaceuch Ultra2 Meter) test once daily blood-glucose meter (magnify360 Autocode Blood Glucose Monitoring System) As directed cholecalciferol (vitamin D3) 25 mcg PO DAILY [email or web address] As directed 10-20 mm HG cyanocobalamin (vitamin B-12) 1,000 mcg PO BEDTIME dextromethorphan polistirex ER (Delsym 12 hour) 10 mL PO Q12H PRN divalproex ER 1,000 mg PO BID empagliflozin (Jardiance) 25 mg PO DAILY esomeprazole magnesium (Nexium) 40 mg PO DAILY ferrous sulfate 325 mg PO BID fluoride (sodium) 1.1% (PreviDent 5000 Booster Plus) 1 appl dental BID fluticasone propionate 50 mcg/actuation (Flonase Allergy Relief) 2 sprays intranasal DAILY fluticasone propionate 50 mcg/actuation 2 sprays intranasal BID gabapentin 200 mg PO BID guaifenesin (Siltussin SA) 200 mg PO Q4H PRN hydralazine 50 mg PO TID hydroxyzine pamoate 50 mg PO DAILY PRN lactase (Lactaid) 3,000 units PO TIDWM PRN lancets (Prodigy Lancets) As directed check BS twice a day lancets (fabrikTouch UltraSoft 2 Lancet) test once daily lancing device (Prodigy Lancing Device) As directed metformin 500 mg PO BID methylcellulose (laxative) (Citrucel) 1,000 mg (2 x 500 mg) PO DAILY 30 days mometasone-formoterol 200-5 mcg/actuation (Dulera) 2 puffs inhalation BID hhmldprt-fspqwkotkNp-gwzclakhM 3.5-400-5,000 dy-qsdn-uyct (Triple Antibiotic) 1 appl topical BID nystatin 1 appl topical TID PRN ondansetron 4 mg PO Q6H PRN propranolol 20 mg PO TID@0800,1600,2000 90 days risperidone 3 mg PO BID sennosides (senna) 17.2 mg PO DAILY PRN starch (thickening) (Diafoods Thick-It oral powder) Add thick it powder to food and beverage using enclosed measuring spoon TID 30 days Tobacco use date assessed: 04/07/24 Dental Screening Dental Screen Date: 04/07/24 HPI Annual Exam HPI Details 53-year-old obese male with mental behavioral problem has cerebellar ataxia diabetes mellitus hypercholesterolemia hypertension asthma and atrial flutter coming in for an annual wellness last seen in April 2024. Patient's last colonoscopy was done in 09/2022 having tubular adenoma . Patient has gone to the Urgent Center in May for right foot toe pain x-ray done no fracture. ER visit also May 12 suicidal ideation along with a fall . Tripped over cardboard hitting his left knee rolling his left ankle no loss of consciousness no seizure activity x-rays were negative [facility] Medical History (Updated 05/27/24 @ 11:11 by Robert Sumner MD) Dysphagia Back pain Leg swelling Ankle pain, left Feeling suicidal Tinea cruris Atrial flutter Atrial fib/flutter, transient A-fib Arrhythmia Abnormal EKG Contusion of left ankle Annual physical exam Abdominal pain Positive colorectal cancer screening using Cologuard test Precordial chest pain Hospital discharge follow-up Chest pain Right ankle pain Musculoskeletal chest pain Left-sided chest pain Back pain Fall Acute kidney injury Gait instability Suicidal ideation COVID-19 Hypomagnesemia Diarrhea Abdominal pain Left ankle sprain Seizure disorder Hypertension Anxiety Hyponatremia Cerebellar ataxia Anemia Lactose intolerance Vertigo Asthma Mental disability Type 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 Proteinuria Hyperlipidemia LDL goal <100 Essential hypertension Surgical History Hx of colonoscopy History of orchiectomy Family History Father Myocardial infarction CVD (cardiovascular disease) Diabetes mellitus Mother Diabetes mellitus HTN (hypertension) Brother In good health Sister In good health Social History Household Members: Other Household Members Other:: from nursing home Housing: Other Housing Other:: nursing home Do you presently have visiting nurse or other home services: Yes Unable to assess alcohol history related to: Unknown Alcohol intake: never 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 Patient Tobacco Use Status: Never used Tobacco e-Cigarette/Vaping Use: Never Used Second Hand Smoke Exposure: No Advance Directives Date on File: 05/23/21 service: No Current occupational status: disabled Cognitive needs: Yes (walker) Hearing needs: No Vision needs: Yes (glasses) Questionnaire PHQ-9 Over the last 2 weeks, how often have you been bothered by any of the following problems? 1. Little interest or pleasure in doing things: not at all 2. Feeling down, depressed, or hopeless: not at all 3. Trouble falling or staying asleep, or sleeping too much: not at all 4. Feeling tired or having little energy: not at all 5. Poor appetite or overeating: not at all 6. Feeling bad about yourself - or that you are a failure or have let yourself or your family down: not at all 7. Trouble concentrating on things, such as reading the newspaper or watching television: not at all 8. Moving or speaking so slowly that other people could have noticed. Or the opposite - being so fidgety or restless that you have been moving around a lot more than usual: not at all 9. Thoughts that you would be better off or of hurting yourself in some way: several days Total score: 1 Depression Screening Interpretation: Positive Depression Screening Follow-up: Other (sent to ED ) Depression Screening Done: Yes Source: Developed by Drs. Wellington L. Monica López Kurt Kroenke and colleagues, with an educational perez from [employer]. Thrive Questionnaire Date Thrive assessed: 11/14/23 AUDIT C Alcohol Use Questionnaire (AUDIT-C) 1. How often do you have a drink containing alcohol?: Never 2. How many drinks containing alcohol do you have on a typical day when you are drinking?: 1 or 2 (0) 3. How often do you have six or more drinks on one occasion?: Never Total Score: 0 Score Reviewed/Action Taken: Yes CHANI-7 AMB Questionnaire CHANI-7 Date CHANI - 7 assessed: 11/14/23 Source: Developed by Monica Morgan Kurt Kroenke and colleagues, with an educational perez from [employer]. Review of Systems Const Denies poor appetite and Denies weakness Eyes Denies no additional complaints ENT Reports Normal hearing present, Denies dizziness, Denies nasal congestion, Denies tinnitus and Denies sore throat Card Denies chest pain, Denies syncope, Denies rapid heart rate and Denies dyspnea Resp Denies cough and Denies dyspnea GI Denies change in stool character, Reports constipation, Denies diarrhea, Denies nausea and Denies vomiting Denies dysuria and Denies urinary frequency Neuro Reports Normal hearing present, Denies confusion, Denies dizziness, Denies syncope and Denies weakness Psych Denies confusion Physical exam (Primary Care) Vital Signs: Last Vital Signs Pulse 77 05/27/24 10:27 BP 130/78 05/27/24 10:27 Pulse Ox 94 05/27/24 10:27 Oxygen Delivery Method Room Air 05/27/24 10:27 BMI result Body Mass Index 38.9 Tobacco/Smoking Status: Tobacco use Status Tobacco use date assessed 04/07/24 05/27/24 10:33 Patient Tobacco Use Status Never used Tobacco 05/27/24 10:33 e-Cigarette/Vaping Use Never Used 05/27/24 10:33 PHQ-9: PHQ-9 Score PHQ-9: Total score 1 05/27/24 10:33 Depression Screening Interpretation: Positive Depression Screening Follow-up: Other (sent to ED ) Thrive Assessment: Date of Thrive Assessment Date Thrive assessed 11/14/23 05/27/24 10:33 Const General: No confusion Orientation/consciousness: No confusion HENMT Other: R eye lateral deviation Head: Yes normocephalic Ears: external ears normal and TM's normal bilaterally Face and sinus: Yes normal facial exam Mouth: moist mucous membranes Throat: Yes tonsils normal Eyes Conjunctivae: conjunctivae normal Pupils: Equal, round and reactive pupils present and Pupil accommodation reflex normal Direct Ophthalmoscopy: normal light reflex Neck Neck: No lymphadenopathy Thyroid: Thyroid normal Chest Chest palpation & inspection: normal inspection of the chest Resp Effort & Inspection: normal respiratory effort and no audible wheezes Auscultation: clear to auscultation bilaterally, no crackles, no wheezes and lung sounds not diminished Cardio Rate: regular rate Rhythm: regular rhythm Peripheral pulses: radial pulses present and dorsalis pedis present GI Other: decline rectal exam Palpation (GI): no masses Auscultation: normal bowel sounds and normoactive bowel sounds Rectal Exam - Male: Yes deferred Male General Exam: Yes normal external exam Back/Spine/Pelvis Back/spine/pelvis image: 1. 2 cm lower back cyst with white creamy discharge 2. multiple mild reddish rash no discharge 3. Skin Other: pedal pulse good with good strenght on both extremeties General skin exam: no rashes or lesions noted Rashes: no rashes Neuro General: No confusion Cranial nerves: Yes Equal, round and reactive pupils present and Yes Normal hearing present Cognition (Neuro): normal cognition Gait exam (Neuro): Normal gait present Motor exam (neuro): 5/5 motor strength present throughout Deep tendon reflexes (DTR's): Right brachioradialis reflex intensity grade: 2+, Left brachioradialis reflex intensity grade: 2+, Right patellar reflex intensity grade: 2+ and Left patellar reflex intensity grade: 2+ Extrem General: No edema Assessment and Plan Assessment & Plan (1) Annual physical exam: Code(s): Z00.00 - Encounter for general adult medical examination without abnormal findings Plan: Patient is advised to eat healthy, keep well hydrated, keep active and have adequate sleep. (2) Type 2 diabetes mellitus with hyperglycemia: Code(s): E11.65 - Type 2 diabetes mellitus with hyperglycemia Plan: Decrease the amount of carbohydrate intake, pasta, bread, rice and potatoes are all sugar and that is aside from all the sweet stuff, remember that fruits are good but they are Sweet also. Hemoglobin A1c goal of less than 6.5 patient on Jardiance 25 mg once a day metformin 500 mg twice a day (3) GERD (gastroesophageal reflux disease): Code(s): K21.9 - Gastro-esophageal reflux disease without esophagitis Qualifiers: Esophagitis presence: esophagitis presence not specified Qualified Code(s): K21.9 - Gastro-esophageal reflux disease without esophagitis Plan: Avoid the foods that causes that usually spicy foods, tomato products, juices, coffee, soda and foods that your sensitive to. After eating do not lie down, allow 3-4 hours before in lie down. And keep the head of bed above 30 degrees to avoid the acid from going up. (4) Cerebellar ataxia: Code(s): G11.9 - Hereditary ataxia, unspecified Plan: Patient has the walker supportive treatment (5) Asthma: Code(s): J45.909 - Unspecified asthma, uncomplicated Qualifiers: Asthma severity: moderate Asthma persistence: persistent Asthma complication type: uncomplicated Qualified Code(s): J45.40 - Moderate persistent asthma, uncomplicated Plan: Continue with inhalers as needed (6) Hyperlipidemia LDL goal <100: Code(s): E78.5 - Hyperlipidemia, unspecified Plan: Cholesterol blood work last done in 10/29/2023 on atorvastatin 10 mg once a day (7) Essential hypertension: Code(s): I10 - Essential (primary) hypertension Plan: Continue with blood pressure medication. Decrease salt intake and exercise hydralazine 50 mg 3 times a day propranolol 20 mg t.i.d. (8) Sebaceous cyst: Comment: left lower back and medial thigh Code(s): L72.3 - Sebaceous cyst Orders: Orders Complete Blood Count Auto Diff 4 Months - Type 2 diabetes mellitus with hyperglycemia Comprehensive Met. Panel 4 Months - Type 2 diabetes mellitus with hyperglycemia Free T4 (Free Thyroxine) 4 Months . - Type 2 diabetes mellitus with hyperglycemia Thyroid Stimulating Hormone 4 Months . - Type 2 diabetes mellitus with hyperglycemia Microalbumin, Random (w Creat) 4 Months . - Type 2 diabetes mellitus with hyperglycemia Hemoglobin A1c 4 Months . - Type 2 diabetes mellitus with hyperglycemia Prostate Specific Antigen Scr 4 Months . - Type 2 diabetes mellitus with hyperglycemia Lipid Panel 4 Months . - Type 2 diabetes mellitus with hyperglycemia, E78.00 - Pure hypercholesterolemia, unspecified Creatinine Urine 4 Months E11.65 - Type 2 diabetes mellitus with hyperglycemia Vitamin B12 and Folate 4 Months E11.65 - Type 2 diabetes mellitus with hyperglycemia Referrals General Surgery Referral L72.3 - Sebaceous cyst Coding Level of Care Code Est Pt Prev Care 40-64y([id number]) Diagnoses Annual physical exam Z00.00 Type 2 diabetes mellitus with hyperglycemia E11.65 Gastroesophageal reflux disease, unspecified whether esophagitis present K21.9 Esophagitis presence: esophagitis presence not specified Cerebellar ataxia G11.9 Moderate persistent asthma without complication J45.40 Asthma severity: moderate Asthma persistence: persistent Asthma complication type: uncomplicated Hyperlipidemia LDL goal <100 E78.5 Essential hypertension I10 Sebaceous cyst L72.3 Additional Codes PHQ-9 - 19927 - PHQ-9 Billing: ([id number])
== END 2024-05-27 11:24 | disposition home or self-care (01) ==
PROVIDERS: PCP Internal Medicine; Visit Provider Internal Medicine
DX: Z00.00 Encounter for general adult medical examination without abnormal findings (principal); E11.65 Type 2 diabetes mellitus with hyperglycemia; G11.9 Hereditary ataxia, unspecified; K21.9 Gastro-esophageal reflux disease without esophagitis; J45.40 Moderate persistent asthma, uncomplicated; E78.5 Hyperlipidemia, unspecified; I10 Essential (primary) hypertension; L72.3 Sebaceous cyst
CPT/HCPCS: 99396

== ENCOUNTER → 2024-06-11 23:59 | Outpatient (BNV) | payer MEDICARE, MEDICAID, SELFPAY | PROVIDERS: PCP Internal Medicine; Visit Provider Internal Medicine | DX: E11.65 Type 2 diabetes mellitus with hyperglycemia (principal); I10 Essential (primary) hypertension; J45.909 Unspecified asthma, uncomplicated | CPT/HCPCS: G0179 ==

== ENCOUNTER 2024-06-22 10:05 | Outpatient (AMB) | payer MEDICARE, MEDICAID, SELFPAY ==
--- NOTE | 2024-06-22 10:07 | A.OFFVIS_ITS ---
Vital Signs 06/22/24 10:15 Height 5 ft 5 in Weight 234 lb BMI 38.9 BP 136/78 Blood Pressure Location Rt brachial Position Sitting Pulse 72 Intake Visit Reasons: Sebaceous cyst Intake Note: Patient referred for sebaceous cyst on back. Present for yrs. Patient c/o: painful, irritated when rubbing with shirt. Domestic Freight Forwarder Required: No Domestic Freight Forwarder Services: Domestic Freight Forwarder Present Accompanied by: [facility] Allergies Sulfa (Sulfonamide Antibiotics) Allergy (Severe, Verified 06/22/24 10:13) CHAVEZ ALICIA REACTION, Chavez Alicia trimethoprim Allergy (Mild, Verified 06/22/24 10:13) UNKNOWN lactose Adverse Reaction (Mild, Verified 06/22/24 10:13) STOMACH UPSET HPI Comments Details: Patient presents here from a shelter environment with his process design engineer who has the complaint of asymptomatic lower back mass/cyst. He has had this several years time. His increasing in size, become more symptomatic. Wishes to have removed. Chart was reviewed and patient evaluated. Patient has a plethora of comorbidities. COUNT INCLUDES THE [facility] Medical History Dysphagia Back pain Leg swelling Ankle pain, left Feeling suicidal Tinea cruris Atrial flutter Atrial fib/flutter, transient A-fib Arrhythmia Abnormal EKG Contusion of left ankle Annual physical exam Abdominal pain Positive colorectal cancer screening using Cologuard test Precordial chest pain Hospital discharge follow-up Chest pain Right ankle pain Musculoskeletal chest pain Left-sided chest pain Back pain Fall Acute kidney injury Gait instability Suicidal ideation COVID-19 Hypomagnesemia Diarrhea Abdominal pain Left ankle sprain Seizure disorder Hypertension Anxiety Hyponatremia Cerebellar ataxia Anemia Lactose intolerance Vertigo Asthma Mental disability Type 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 Proteinuria Hyperlipidemia LDL goal <100 Essential hypertension Surgical History Hx of colonoscopy History of orchiectomy Family History Father Myocardial infarction CVD (cardiovascular disease) Diabetes mellitus Mother Diabetes mellitus HTN (hypertension) Brother In good health Sister In good health Social History Household Members: Other Household Members Other:: from shelter Housing: Other Housing Other:: shelter Do you presently have visiting nurse or other home services: Yes Unable to assess alcohol history related to: Unknown Alcohol intake: never 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 Patient Tobacco Use Status: Never used Tobacco e-Cigarette/Vaping Use: Never Used Second Hand Smoke Exposure: No Advance Directives Date on File: 05/23/21 service: No Current occupational status: disabled Cognitive needs: Yes (walker) Hearing needs: No Vision needs: Yes (glasses) Physical Exam Vital Signs: Last Vital Signs Pulse 72 06/22/24 10:15 BP 136/78 06/22/24 10:15 BMI result Body Mass Index 38.9 Const Other: Presented here in a wheelchair. Required assistance for standing with his process design engineer and with me. Chest Other: Chest breath sounds bilaterally, HS 1 in 2 GI Other: Abdomen Andriy, soft, benign Back/Spine/Pelvis Other: Lower midline back demonstrates approximately 5 x 4 cm mass consistent with a giant sebaceous cyst Assessment & Plan Assessment & Plan (1) Sebaceous cyst: Comment: left lower back and medial thigh Code(s): L72.3 - Sebaceous cyst Category: Surgical Plan Risks, benefits, alternatives of excision of this lower back mass reviewed with the patient and included but not limited to bleeding, infection, recurrence, numbness, pain, scarring, seroma formation, wound dehiscence and the patient wishes to proceed. All questions answered. According to the process design engineer, patient can sign his own consent form. Arrangements were made for this on a day which is convenient for the patient. All questions answered. Coding Level of Care Code New Pt Level 5 (33947) Diagnoses Sebaceous cyst L72.3
[2024-06-22 10:15] VITALS: BP 136/78; PULSE 72; BMI 38.9
== END 2024-06-22 10:49 | disposition home or self-care (01) ==
PROVIDERS: PCP Internal Medicine; Visit Provider Surgery
DX: L72.3 Sebaceous cyst (principal)
CPT/HCPCS: 99204

== ENCOUNTER → 2024-06-22 10:05 | Outpatient (BNVA) | payer MEDICARE, MEDICAID, SELFPAY | PROVIDERS: PCP Internal Medicine; Visit Provider Surgery | DX: L72.3 Sebaceous cyst (principal) | CPT/HCPCS: 99202 ==

== ENCOUNTER 2024-07-15 21:41 | Emergency (ER) | payer MEDICARE, MEDICAID, SELFPAY ==
--- NOTE | ~2024-07-15 | XR_ITS ---
EXAMINATION: XR SHOULDER, RIGHT CLINICAL INFORMATION: Injury, pain COMPARISON: 05/08/2022 TECHNIQUE: Two views of the right shoulder. FINDINGS: Glenohumeral alignment appears anatomic. No acute fracture is seen. The acromioclavicular joint is intact with mild degenerative change. XR/XR shoulder RT min 2V IMPRESSION: No acute findings identified. Electronically signed by: Quinn Rahman MD 07/15/2024 11:06 PM EDT
[2024-07-15 21:50] VITALS: BP 132/80; PULSE 83; O2SAT 99; BMI 37.3
[2024-07-15 21:57] VITALS: BP 159/72; PULSE 84; RESP 16; TEMP 36.4; O2SAT 94
[2024-07-16] VITALS: BP 134/76; PULSE 71; RESP 18; TEMP 36.1; O2SAT 97
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
[2024-07-16] MEDS: Ibuprofen 600 MG TABLET PO (00:24)
[2024-07-16 00:43] VITALS: BP 134/76; PULSE 71; RESP 18; TEMP 36.1; O2SAT 97
== END 2024-07-16 00:57 | disposition home or self-care (01) ==
PROVIDERS: Emergency Provider Emergency Medicine
DX: S40.011A Contusion of right shoulder, initial encounter (principal); W20.8XXA Other cause of strike by thrown, projected or falling object, initial encounter; Y93.9 Activity, unspecified; Y92.199 Unspecified place in other specified residential institution as the place of occurrence of the external cause; Y99.9 Unspecified external cause status
CPT/HCPCS: 73030; 99283; 99284

== ENCOUNTER 2024-07-19 09:09 | Outpatient (AMB) | payer MEDICARE, MEDICAID, SELFPAY ==
[2024-07-19 09:15] VITALS: BP 134/82; PULSE 78; O2SAT 100; BMI 38.8
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
== END 2024-07-19 09:42 | disposition home or self-care (01) ==
PROVIDERS: PCP Internal Medicine
DX: M25.511 Pain in right shoulder (principal); E11.65 Type 2 diabetes mellitus with hyperglycemia
CPT/HCPCS: 99213

== ENCOUNTER 2024-07-22 06:59 | Day surgery (SDC) | payer MEDICARE, MEDICAID, SELFPAY ==
[2024-07-09 12:47] VITALS: BMI 38.9
--- NOTE | 2024-07-21 10:33 | P.CONAN_ITS ---
HPI - Anesthesia Eval Consult details Narrative: 53yo M for Wide Local Excision Lower Back LG Cyst Medically optimized per PCP Cerebellar ataxia - skilled nursing resident/guardianship Cardiac w/u [phone] for atypical CP without significant findings. PRN cardiac f/u only. No mention of hx of afib. Anesthesia Pre-Procedure Meds Is the patient on any of the following meds?: SGLT2 Inhib PMFSH Active Problems Active Problems: All Active Problems Right shoulder pain (Acute) Sebaceous cyst (Acute) Toe pain, right (Acute) Benign positional vertigo (Acute) Hematoma (Acute) Dysphagia (Acute) Pneumonia (Acute) Lower extremity numbness (Acute) Lower extremity weakness (Acute) Urinary incontinence (Acute) Rectal incontinence (Acute) RSV (acute bronchiolitis due to respiratory syncytial virus) (Acute) Leg swelling (Acute) Renal insufficiency (Acute) Cognitive developmental delay (Acute) Peripheral vascular disease (Acute) Hyponatremia (Acute) Type 2 diabetes mellitus with hyperglycemia (Acute) Schizophrenia (Acute) Helicobacter pylori (H. pylori) infection (Acute) Auditory hallucinations (Acute) Mental and behavioral problem (Acute) Pancytopenia (Acute) GERD (gastroesophageal reflux disease) (Acute) Atrial flutter (Acute) Back pain (Acute) Ankle pain, left (Acute) Annual physical exam (Acute) Dysphagia (Acute) Asthma (Acute) Cerebellar ataxia (Acute) Right ankle pain (Acute) Hyponatremia (Acute) Type 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 (Acute) Proteinuria (Acute) Hyperlipidemia LDL goal <100 (Acute) Essential hypertension (Acute) Past Medical History Medical History Feeling suicidal Tinea cruris Leg swelling Atrial flutter Atrial fib/flutter, transient A-fib Arrhythmia Abnormal EKG Contusion of left ankle Annual physical exam Abdominal pain Back pain Positive colorectal cancer screening using Cologuard test Precordial chest pain Hospital discharge follow-up Chest pain Right ankle pain Musculoskeletal chest pain Left-sided chest pain Back pain Fall Dysphagia Acute kidney injury Gait instability Suicidal ideation COVID-19 Hypomagnesemia Diarrhea Abdominal pain Ankle pain, left Left ankle sprain Seizure disorder Hypertension Anxiety Hyponatremia Cerebellar ataxia Anemia Lactose intolerance Vertigo Asthma Mental disability Type 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 Proteinuria Hyperlipidemia LDL goal <100 Essential hypertension Family History Family History Father Myocardial infarction CVD (cardiovascular disease) Diabetes mellitus Mother Diabetes mellitus HTN (hypertension) Brother In good health Sister In good health Surgical History Surgical History Hx of colonoscopy History of orchiectomy History of Problems with Anesthesia: No Social History Social History Household Members: Other Household Members Other:: from skilled nursing Housing: House Housing Other:: skilled nursing [facility] [address] Esteban [phone] Do you presently have visiting nurse or other home services: Yes 75 years or older and lives alone: No Unable to assess alcohol history related to: Unknown Alcohol intake: never 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 Patient Tobacco Use Status: Never used Tobacco e-Cigarette/Vaping Use: Never Used Second Hand Smoke Exposure: No Advance Directives Date on File: 05/23/21 service: No Current occupational status: disabled Cognitive needs: Yes (walker) Hearing needs: No Vision needs: Yes (glasses) Meds Allergies Allergy/AdvReac Type Severity Reaction Status Date / Time Sulfa (Sulfonamide Allergy Severe CHAVEZ Verified 07/22/24 07:33 Antibiotics) ALICIA REACTION trimethoprim Allergy Mild UNKNOWN Verified 07/22/24 07:33 lactose AdvReac Mild STOMACH Verified 07/22/24 07:33 UPSET Home Medications ?Medication ?Instructions ?Recorded ?Confirmed ?Last Taken ?Type divalproex 500 mg tablet,extended 1,000 mg PO BID 06/10/23 07/22/24 Unknown History release 24 hr gabapentin 100 mg capsule 300 mg PO BID 06/10/23 07/22/24 Unknown History risperidone 3 mg tablet 3 mg PO BID 06/10/23 07/22/24 Unknown History albuterol sulfate 90 mcg/actuation 2 puff inhalation Q6H PRN Wheezing 07/29/23 07/22/24 Unknown History aerosol inhaler guaifenesin 100 mg/5 mL oral 200 mg PO Q4H PRN Cough 07/29/23 07/19/24 Unknown History liquid (Siltussin SA) ondansetron 4 mg disintegrating 4 mg PO Q6H PRN Nausea And Vomiting 07/29/23 07/22/24 Unknown History tablet hydroxyzine pamoate 50 mg capsule 50 mg PO DAILY PRN 10/13/23 07/22/24 Unknown History AGITATION/ANXIETY neomycin-bacitracn Zn-polymyxn 3.5 1 appl topical BID 10/13/23 07/22/24 Unknown History mg-400 unit-5,000 unit top oint pkt (Triple Antibiotic) fluoride (sodium) 1.1 % dental 1 appl dental BID 12/23/23 07/22/24 Unknown History paste (PreviDent 5000 Booster Plus) sennosides 8.6 mg tablet (senna) 17.2 mg PO DAILY PRN Constipation 12/23/23 07/22/24 Unknown History clonidine HCl 0.1 mg tablet 0.1 mg PO BEDTIME 07/09/24 07/22/24 Unknown History Exam Height,Weight and Vital Signs: Height 5 ft 5 in Weight 106.141 kg Pertinent Lab Results Pertinent Lab Results: Laboratory Tests 01/14/24 22:27 WBC 5.3 Hgb 11.4 L Hct 32.9 L Plt Count 131 L D Sodium 139 Potassium 3.6 Chloride 105 Carbon Dioxide 26 BUN 15 Creatinine 0.90 Narrative Narrative: EKG 01/2024 Vent. Rate : 080 BPM Atrial Rate : 080 BPM P-R Int : 162 ms QRS Dur : 092 ms QT Int : 388 ms P-R-T Axes : 063 -09 040 degrees QTc Int : 447 ms Normal sinus rhythm Cannot rule out Anterior infarct , age undetermined Abnormal ECG When compared with ECG of 11-JAN-2024 22:28, Premature atrial complexes are no longer Present ECHO 2021 Conclusions: - Normal left ventricular size, thickness, systolic function, and wall motion. The visually estimated ejection fraction is between 60-65%. Diastolic function is normal for age. - Normal right ventricular cavity size and systolic function. - There is mild dilatation of the ascending aorta measuring 3.40 cm. Assessment and Plan Assessment Anesthesia Assessment: Chart Reviewed Final Anesthetic Review History of Problems with Anesthesia: No
--- NOTE | 2024-07-21 20:17 | MHC.SHP ---
Pre-Procedural Eval Section A - 24 Hr Update-Section A only Date of Service: 07/22/24 The patient is an INPATIENT: No Changes since office visit: No Cold of Flu in the past 2 weeks, No New Medical Problems, No Changes in Medication and No Patient answered all questions Section B - Complete if H&P > 30 days Chief Complaint: Sebaceous cyst Allergies: Allergies Allergy/AdvReac Type Severity Reaction Status Date / Time Sulfa (Sulfonamide Allergy Severe CHAVEZ Verified 07/19/24 09:19 Antibiotics) ALICIA REACTION, Chavez Alicia trimethoprim Allergy Mild UNKNOWN Verified 07/19/24 09:19 lactose AdvReac Mild STOMACH Verified 07/19/24 09:19 UPSET Review of Systems Sugical H&P ROS: Negative: Constitution, Cardiovascular, Respiratory, Neurological, Psychiatric, Hem-Onc, Allergic/Immunologic, Gastrointestinal, Genitourinary, Musculoskeletal, Integumentary, Endocrine and Eyes/Ears/Nose/Throat Exam Surgical H&P Exam: Normal: HEENT, Normal: Heart, Normal: Lungs, Normal: Extremities, Normal: Abdomen, Normal: Skin and Normal: Neurological Plan I have reviewed the history and physical and performed a pertinent physical examination on my patient. No changes have occurred unless specified. Time Spent With Patient Time: Total time managing care of this patient today ____ minutes.
[2024-07-22] VITALS (12 sets, daily range): BP systolic 126–162; BP diastolic 73–90; PULSE 75–93; RESP 16; TEMP 36.1–36.2; O2SAT 93–99; BMI 38.2
--- NOTE | 2024-07-22 07:57 | P.CONAN_ITS ---
[facility] Active Problems Active Problems: All Active Problems Right shoulder pain (Acute) Sebaceous cyst (Acute) Toe pain, right (Acute) Benign positional vertigo (Acute) Hematoma (Acute) Dysphagia (Acute) Pneumonia (Acute) Lower extremity numbness (Acute) Lower extremity weakness (Acute) Urinary incontinence (Acute) Rectal incontinence (Acute) RSV (acute bronchiolitis due to respiratory syncytial virus) (Acute) Leg swelling (Acute) Renal insufficiency (Acute) Cognitive developmental delay (Acute) Peripheral vascular disease (Acute) Hyponatremia (Acute) Type 2 diabetes mellitus with hyperglycemia (Acute) Schizophrenia (Acute) Helicobacter pylori (H. pylori) infection (Acute) Auditory hallucinations (Acute) Mental and behavioral problem (Acute) Pancytopenia (Acute) GERD (gastroesophageal reflux disease) (Acute) Atrial flutter (Acute) Back pain (Acute) Ankle pain, left (Acute) Annual physical exam (Acute) Dysphagia (Acute) Asthma (Acute) Cerebellar ataxia (Acute) Right ankle pain (Acute) Hyponatremia (Acute) Type 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 (Acute) Proteinuria (Acute) Hyperlipidemia LDL goal <100 (Acute) Essential hypertension (Acute) Past Medical History Medical History Feeling suicidal Tinea cruris Leg swelling Atrial flutter Atrial fib/flutter, transient A-fib Arrhythmia Abnormal EKG Contusion of left ankle Annual physical exam Abdominal pain Back pain Positive colorectal cancer screening using Cologuard test Precordial chest pain Hospital discharge follow-up Chest pain Right ankle pain Musculoskeletal chest pain Left-sided chest pain Back pain Fall Dysphagia Acute kidney injury Gait instability Suicidal ideation COVID-19 Hypomagnesemia Diarrhea Abdominal pain Ankle pain, left Left ankle sprain Seizure disorder Hypertension Anxiety Hyponatremia Cerebellar ataxia Anemia Lactose intolerance Vertigo Asthma Mental disability Type 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 Proteinuria Hyperlipidemia LDL goal <100 Essential hypertension Functional capacity: independent ambulation Family History Family History Father Myocardial infarction CVD (cardiovascular disease) Diabetes mellitus Mother Diabetes mellitus HTN (hypertension) Brother In good health Sister In good health Family history of problems with anesthesia: No Surgical History Surgical History Hx of colonoscopy History of orchiectomy History of Problems with Anesthesia: No Social History Social History Household Members: Other Household Members Other:: from longterm Housing: House Housing Other:: longterm [place] [place] [phone] Do you presently have visiting nurse or other home services: Yes Unable to assess alcohol history related to: Unknown Alcohol intake: never 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 Patient Tobacco Use Status: Never used Tobacco e-Cigarette/Vaping Use: Never Used Second Hand Smoke Exposure: No Use of substances other than those prescribed or required for medical reasons: No Are you DNR?: No Advance Directives: Yes Advance Directives Information Provided: No Advance Directives on File: Yes Advance Directives Date on File: 05/23/21 Recently lost weight without trying: No service: No Current occupational status: disabled Cognitive needs: Yes (walker) Hearing needs: No Vision needs: Yes (glasses) Meds Allergies Allergy/AdvReac Type Severity Reaction Status Date / Time Sulfa (Sulfonamide Allergy Severe CHAVEZ Verified 07/22/24 07:33 Antibiotics) ALICIA REACTION trimethoprim Allergy Mild UNKNOWN Verified 07/22/24 07:33 lactose AdvReac Mild STOMACH Verified 07/22/24 07:33 UPSET Active Medications: Current Medications Albuterol Sulfate (Albuterol Sulfate (0.083%) 2.5 Mg/3 Ml Vial.Neb) 2.5 mg INHALE ONCE PRN PRN Reason: Shortness of Breath/Wheezing Lactated Ringer's (Lr) 1,000 mls @ 100 mls/hr IVCONT .Q10H PILO Home Medications ?Medication ?Instructions ?Recorded ?Confirmed ?Last Taken ?Type divalproex 500 mg tablet,extended 1,000 mg PO BID 06/10/23 07/22/24 Unknown History release 24 hr gabapentin 100 mg capsule 300 mg PO BID 06/10/23 07/22/24 Unknown History risperidone 3 mg tablet 3 mg PO BID 06/10/23 07/22/24 Unknown History albuterol sulfate 90 mcg/actuation 2 puff inhalation Q6H PRN Wheezing 07/29/23 07/22/24 Unknown History aerosol inhaler guaifenesin 100 mg/5 mL oral 200 mg PO Q4H PRN Cough 07/29/23 07/19/24 Unknown History liquid (Siltussin SA) ondansetron 4 mg disintegrating 4 mg PO Q6H PRN Nausea And Vomiting 07/29/23 07/22/24 Unknown History tablet hydroxyzine pamoate 50 mg capsule 50 mg PO DAILY PRN 10/13/23 07/22/24 Unknown History AGITATION/ANXIETY neomycin-bacitracn Zn-polymyxn 3.5 1 appl topical BID 10/13/23 07/22/24 Unknown History mg-400 unit-5,000 unit top oint pkt (Triple Antibiotic) fluoride (sodium) 1.1 % dental 1 appl dental BID 12/23/23 07/22/24 Unknown History paste (PreviDent 5000 Booster Plus) sennosides 8.6 mg tablet (senna) 17.2 mg PO DAILY PRN Constipation 12/23/23 07/22/24 Unknown History clonidine HCl 0.1 mg tablet 0.1 mg PO BEDTIME 07/09/24 07/22/24 Unknown History Exam Height,Weight and Vital Signs: Height 5 ft 5 in Weight 104.236 kg Last Vital Signs Temp 97.2 F 07/22/24 07:34 Pulse 78 07/22/24 07:34 Resp 16 07/22/24 07:34 BP 126/87 07/22/24 07:34 Pulse Ox 97 07/22/24 07:34 O2 Del Method Room Air 07/22/24 07:34 Airway Mallampati Class: III TM Dist: >3cm Neck ROM: Full Heart: RRR Lungs: CTA Assessment and Plan Assessment Anesthesia Assessment: Anesthesia Plan Discussed Final Anesthetic Review Family History of Problems with Anesthesia: No History of Problems with Anesthesia: No NPO: Yes ASA Class: III Final Preanesthetic Review: Meds/Allgs Chart Reviewed, Consent Obtained/Reviewed and Anes Risks/Benef Reviewed Patient Risk: Intermediate Procedure Risk: Low Anesthetic Plan Anesthetic Plan: GA Disposition: Standard PACU
[2024-07-22] MEDS: Lactated Ringers 1,000 ML 100 ML IVCONT (08:01)
--- NOTE | 2024-07-22 08:07 | PC.NURSE ---
Patient arrived to [facility] via wheelchair with alf staff Oswaldo. Sister Shelia (guardian) at bedside. Medication list reconciled with list procvided by Oswaldo. Per him, no Jardiance since Wednesday 07/18. PMH reviewed and preop questions complete with patient and Shelia. Consents signed with Shelia at bedside. Patient took no morning meds. Per Dr. Rizzo, hold morning meds until after procedure. Oswaldo made aware.
[2024-07-22 08:17] LABS: Glucose, Whole Blood 133 mg/dL (60-115)
--- NOTE | 2024-07-22 08:26 | HO.ANESPROP2 ---
[facility] Active Problems Active Problems: All Active Problems Right shoulder pain (Acute) Sebaceous cyst (Acute) Toe pain, right (Acute) Benign positional vertigo (Acute) Hematoma (Acute) Dysphagia (Acute) Pneumonia (Acute) Lower extremity numbness (Acute) Lower extremity weakness (Acute) Urinary incontinence (Acute) Rectal incontinence (Acute) RSV (acute bronchiolitis due to respiratory syncytial virus) (Acute) Leg swelling (Acute) Renal insufficiency (Acute) Cognitive developmental delay (Acute) Peripheral vascular disease (Acute) Hyponatremia (Acute) Type 2 diabetes mellitus with hyperglycemia (Acute) Schizophrenia (Acute) Helicobacter pylori (H. pylori) infection (Acute) Auditory hallucinations (Acute) Mental and behavioral problem (Acute) Pancytopenia (Acute) GERD (gastroesophageal reflux disease) (Acute) Atrial flutter (Acute) Back pain (Acute) Ankle pain, left (Acute) Annual physical exam (Acute) Dysphagia (Acute) Asthma (Acute) Cerebellar ataxia (Acute) Right ankle pain (Acute) Hyponatremia (Acute) Type 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 (Acute) Proteinuria (Acute) Hyperlipidemia LDL goal <100 (Acute) Essential hypertension (Acute) Past Medical History Medical History Feeling suicidal Tinea cruris Leg swelling Atrial flutter Atrial fib/flutter, transient A-fib Arrhythmia Abnormal EKG Contusion of left ankle Annual physical exam Abdominal pain Back pain Positive colorectal cancer screening using Cologuard test Precordial chest pain Hospital discharge follow-up Chest pain Right ankle pain Musculoskeletal chest pain Left-sided chest pain Back pain Fall Dysphagia Acute kidney injury Gait instability Suicidal ideation COVID-19 Hypomagnesemia Diarrhea Abdominal pain Ankle pain, left Left ankle sprain Seizure disorder Hypertension Anxiety Hyponatremia Cerebellar ataxia Anemia Lactose intolerance Vertigo Asthma Mental disability Type 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 Proteinuria Hyperlipidemia LDL goal <100 Essential hypertension Functional capacity: independent ambulation Family History Family History Father Myocardial infarction CVD (cardiovascular disease) Diabetes mellitus Mother Diabetes mellitus HTN (hypertension) Brother In good health Sister In good health Family history of problems with anesthesia: No Surgical History Surgical History Hx of colonoscopy History of orchiectomy History of Problems with Anesthesia: No Social History Social History Household Members: Other Household Members Other:: from custodial Housing: House Housing Other:: custodial [facility] Esteban [phone] Do you presently have visiting nurse or other home services: Yes Unable to assess alcohol history related to: Unknown Alcohol intake: never 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 Patient Tobacco Use Status: Never used Tobacco e-Cigarette/Vaping Use: Never Used Second Hand Smoke Exposure: No Use of substances other than those prescribed or required for medical reasons: No Are you DNR?: No Advance Directives: Yes Advance Directives Information Provided: No Advance Directives on File: Yes Advance Directives Date on File: 05/23/21 Recently lost weight without trying: No service: No Current occupational status: disabled Cognitive needs: Yes (walker) Hearing needs: No Vision needs: Yes (glasses) Meds Allergies Allergy/AdvReac Type Severity Reaction Status Date / Time Sulfa (Sulfonamide Allergy Severe CHAVEZ Verified 07/22/24 07:33 Antibiotics) ALICIA REACTION trimethoprim Allergy Mild UNKNOWN Verified 07/22/24 07:33 lactose AdvReac Mild STOMACH Verified 07/22/24 07:33 UPSET Active Medications: Current Medications Albuterol Sulfate (Albuterol Sulfate (0.083%) 2.5 Mg/3 Ml Vial.Neb) 2.5 mg INHALE ONCE PRN PRN Reason: Shortness of Breath/Wheezing Fentanyl (Fentanyl Citrate/Pf 100 Mcg/2 Ml Vial) 25 mcg IVPUSH Q5M PRN PRN Reason: Pain, Moderate to Severe (Pain Scale 4-10) Stop: 07/22/24 14:13 Lactated Ringer's (Lr) 1,000 mls @ 100 mls/hr IVCONT .Q10H PILO Last Admin: 07/22/24 08:01 Dose: 100 mls/hr Naloxone HCl (Naloxone Hcl 0.4 Mg/Ml Vial) 0.04 mg IVPUSH Q5M PRN PRN Reason: Excessive sedation or RR < 8 Ondansetron HCl (Ondansetron Hcl 4 Mg/2 Ml Vial) 4 mg IVPUSH ONCE PRN PRN Reason: Nausea and Vomiting Stop: 07/22/24 14:13 Home Medications ?Medication ?Instructions ?Recorded ?Confirmed ?Last Taken ?Type divalproex 500 mg tablet,extended 1,000 mg PO BID 06/10/23 07/22/24 Unknown History release 24 hr gabapentin 100 mg capsule 300 mg PO BID 06/10/23 07/22/24 Unknown History risperidone 3 mg tablet 3 mg PO BID 06/10/23 07/22/24 Unknown History albuterol sulfate 90 mcg/actuation 2 puff inhalation Q6H PRN Wheezing 07/29/23 07/22/24 Unknown History aerosol inhaler guaifenesin 100 mg/5 mL oral 200 mg PO Q4H PRN Cough 07/29/23 07/19/24 Unknown History liquid (Siltussin SA) ondansetron 4 mg disintegrating 4 mg PO Q6H PRN Nausea And Vomiting 07/29/23 07/22/24 Unknown History tablet hydroxyzine pamoate 50 mg capsule 50 mg PO DAILY PRN 10/13/23 07/22/24 Unknown History AGITATION/ANXIETY neomycin-bacitracn Zn-polymyxn 3.5 1 appl topical BID 10/13/23 07/22/24 Unknown History mg-400 unit-5,000 unit top oint pkt (Triple Antibiotic) fluoride (sodium) 1.1 % dental 1 appl dental BID 12/23/23 07/22/24 Unknown History paste (PreviDent 5000 Booster Plus) sennosides 8.6 mg tablet (senna) 17.2 mg PO DAILY PRN Constipation 12/23/23 07/22/24 Unknown History clonidine HCl 0.1 mg tablet 0.1 mg PO BEDTIME 07/09/24 07/22/24 Unknown History Exam Height,Weight and Vital Signs: Height 5 ft 5 in Weight 104.236 kg Last Vital Signs Temp 97.2 F 07/22/24 07:34 Pulse 78 07/22/24 07:34 Resp 16 07/22/24 07:34 BP 126/87 07/22/24 07:34 Pulse Ox 97 07/22/24 07:34 O2 Del Method Room Air 07/22/24 07:34 Pertinent Lab Results Pertinent Lab Results: Laboratory Tests 07/22/24 07:36 POC Glucose 133 H Assessment and Plan Assessment Anesthesia Assessment: Anesthesia Plan Discussed and Chart Reviewed Final Anesthetic Review Family History of Problems with Anesthesia: No History of Problems with Anesthesia: No ASA Class: III Final Preanesthetic Review: Meds/Allgs Chart Reviewed, Consent Obtained/Reviewed and Anes Risks/Benef Reviewed Anesthetic Plan Anesthetic Plan: GA Disposition: Standard PACU
--- NOTE | 2024-07-22 09:19 | P.OP_ITS ---
Operative Note Operative Note Date of Service: 07/22/24 Narrative: Preoperative diagnosis: [] Symptomatic lower mid back large sebaceous cyst Postop diagnosis: [] The same Procedure [] wide local excision sebaceous cyst lower back Surgeon: [] Rohith Precision Lens Grinder Apprentice: [] Rylee Type of Anesthesia: [] General Indication for surgery: [] Final specimen approximately 5 x 3 cm consistent with a very large sebaceous cyst Findings: [] Patient brought to the operating room, placed on operative table supine position, after an adequate level of general anesthesia was induced, patient was placed in the right lateral decubitus position. Patient was secured and then the lower back area was prepped and draped in usual sterile fashion. Using a transverse by elliptical incision around the mass in question with final dimensions as noted above, this carried down through skin, subcutaneous tissue, and undermined using Bovie. Specimen sent to pathology. Wound was irrigated, secured hemostasis, and closed using interrupted inverted dermal 3-0 Vicryl sutures followed by Steri-Strips and sterile dressings. Wound was infiltrated at the beginning and at the end with 0.5% Marcaine. Sponge, needle, and instrument counts reported correct. Patient tolerated the procedure well and emerged from anesthesia stable condition. EBL minimal
[2024-07-22] MEDS: fentaNYL citrate/PF 100 MCG/2 ML VIAL 25 MCG IVPUSH ×3 (09:50→10:35)
--- NOTE | 2024-07-22 14:09 | HO.POSTANES ---
Post Anesthesia Evaluation Post Anesthesia Evaluation Date of Service: 07/22/24 Vital Signs: Vital Signs Temp Pulse Resp BP Pulse Ox O2 Del Method O2 Flow Rate 07/22/24 10:55 97 F 75 16 146/87 H 96 Room Air 07/22/24 10:40 83 16 162/83 H 95 Room Air 07/22/24 10:35 81 16 152/83 H 95 Room Air 07/22/24 10:20 83 16 159/90 H 95 Room Air 07/22/24 10:05 80 16 138/88 93 Room Air 07/22/24 10:00 83 16 141/86 H 93 Room Air 07/22/24 10:00 16 07/22/24 09:55 82 16 142/84 H 93 Room Air 07/22/24 09:50 83 16 141/86 H 93 Room Air 07/22/24 09:45 83 16 150/84 H 93 Room Air 07/22/24 09:40 83 16 141/86 H 97 Room Air 07/22/24 09:35 97 F 93 16 145/73 H 99 Simple Mask 8 07/22/24 07:34 97.2 F 78 16 126/87 97 Room Air Anesthesia: General Endotracheal-GETA Mental Status: Awake Pain Control: Satisfactory Nausea/Vomiting: None Hydration: Adequate Anesthesia-Related Issues: No Anes. Related Issues
== END 2024-07-22 11:40 | disposition home or self-care (01) ==
PROVIDERS: PCP Internal Medicine; Visit Provider Surgery
PROC: (CPT 11406; principal; 2024-07-22 08:30)
DX: L72.3 Sebaceous cyst (principal); I48.91 Unspecified atrial fibrillation; I48.92 Unspecified atrial flutter; G40.909 Epilepsy, unspecified, not intractable, without status epilepticus; I10 Essential (primary) hypertension; E11.29 Type 2 diabetes mellitus with other diabetic kidney complication; Z98.890 Other specified postprocedural states; G11.9 Hereditary ataxia, unspecified; J45.909 Unspecified asthma, uncomplicated; E78.5 Hyperlipidemia, unspecified; E73.9 Lactose intolerance, unspecified; F99 Mental disorder, not otherwise specified; Z79.51 Long term (current) use of inhaled steroids; Z79.84 Long term (current) use of oral hypoglycemic drugs; Z79.899 Other long term (current) drug therapy; Z88.2 Allergy status to sulfonamides; Z88.8 Allergy status to other drugs, medicaments and biological substances; N17.9 Acute kidney failure, unspecified
CPT/HCPCS: 11406; 82947; 88304; J0690; J1100; J2250; J2405; J2704; J2795; J3010

== ENCOUNTER → 2024-07-22 06:59 | Outpatient (BNV) | payer MEDICARE, MEDICAID, SELFPAY | PROVIDERS: PCP Internal Medicine; Visit Provider Surgery | DX: L72.0 Epidermal cyst (principal) | CPT/HCPCS: 11406 ==

== ENCOUNTER 2024-08-02 11:17 | Outpatient (AMB) | payer MEDICARE, MEDICAID, SELFPAY ==
--- NOTE | 2024-08-02 11:23 | A.OFFVIS_ITS ---
Intake Visit Reasons: S/P WLE lower back Lg. cyst Intake Note: Patient here s/p WLE cyst on lower back. Patient c/o: pain on lower back. Feels tender when bending. Dishtank Operator Required: No Accompanied by: Certified Pediatric Nurse Practitioner Allergies Sulfa (Sulfonamide Antibiotics) Allergy (Severe, Verified 08/02/24 11:27) CHAVEZ ALICIA REACTION trimethoprim Allergy (Mild, Verified 08/02/24 11:27) UNKNOWN lactose Adverse Reaction (Mild, Verified 08/02/24 11:27) STOMACH UPSET HPI Comments Details: She presents from this facility with his travel coordinator for wound evaluation. Aside from incisional discomfort patient was otherwise has no other significant complaints. Pathology is benign. [facility] Medical History Feeling suicidal Tinea cruris Leg swelling Atrial flutter Atrial fib/flutter, transient A-fib Arrhythmia Abnormal EKG Contusion of left ankle Annual physical exam Abdominal pain Back pain Positive colorectal cancer screening using Cologuard test Precordial chest pain Hospital discharge follow-up Chest pain Right ankle pain Musculoskeletal chest pain Left-sided chest pain Back pain Fall Dysphagia Acute kidney injury Gait instability Suicidal ideation COVID-19 Hypomagnesemia Diarrhea Abdominal pain Ankle pain, left Left ankle sprain Seizure disorder Hypertension Anxiety Hyponatremia Cerebellar ataxia Anemia Lactose intolerance Vertigo Asthma Mental disability Type 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 Proteinuria Hyperlipidemia LDL goal <100 Essential hypertension Surgical History Hx of surgical procedure (07/22/24) Hx of colonoscopy History of orchiectomy Family History Father Myocardial infarction CVD (cardiovascular disease) Diabetes mellitus Mother Diabetes mellitus HTN (hypertension) Brother In good health Sister In good health Social History Household Members: Other Household Members Other:: [facility] [address] [facility] [phone] Do you presently have visiting nurse or other home services: Yes 75 years or older and lives alone: No Unable to assess alcohol history related to: Unknown Alcohol intake: never 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 Patient Tobacco Use Status: Never used Tobacco e-Cigarette/Vaping Use: Never Used Second Hand Smoke Exposure: No Use of substances other than those prescribed or required for medical reasons: No Advance Directives: Yes Advance Directives on File: Yes Advance Directives Date on File: 05/23/21 Guardian: Yes (sister Shelia Marshall [phone]) service: No Current occupational status: disabled Cognitive needs: Yes (walker) Hearing needs: No Vision needs: Yes (glasses) Physical Exam Back/Spine/Pelvis Other: Back incisions clean dry and intact. Band-Aid was applied to protect the wound. Assessment & Plan Assessment & Plan (1) Postop check: Code(s): Z09 - Encounter for follow-up examination after completed treatment for conditions other than malignant neoplasm Category: Surgical Plan According to his travel coordinator, patient has a lot of prolonged sitting which applies pressure to the area. I recommended that patient avoid prolonged sitting, laying in his side, and keep a bandage to protect the area. Facility form was also completed. Patient otherwise follow-up p.r.n.. All questions answered. Coding Level of Care Code Global (01332) Diagnoses Postop check Z09
== END 2024-08-02 11:38 | disposition home or self-care (01) ==
PROVIDERS: PCP Internal Medicine; Visit Provider Surgery
DX: Z09 Encounter for follow-up examination after completed treatment for conditions other than malignant neoplasm (principal)
CPT/HCPCS: 99024

== ENCOUNTER → 2024-08-02 11:17 | Outpatient (BNVA) | payer MEDICARE, MEDICAID, SELFPAY | PROVIDERS: PCP Internal Medicine; Visit Provider Surgery | DX: Z09 Encounter for follow-up examination after completed treatment for conditions other than malignant neoplasm (principal); Z87.2 Personal history of diseases of the skin and subcutaneous tissue; Z98.890 Other specified postprocedural states | CPT/HCPCS: 99212 ==

== ENCOUNTER 2024-08-18 11:51 | Outpatient (REF) | payer MEDICARE, MEDICAID, SELFPAY ==
[2024-08-18 13:33] LABS: Appearance Urine Clear; Color Urine Yellow; Glucose Urine UA >=1000 mg/dL (Negative); Leukocyte Esterase Urine Negative (Negative); Nitrite Urine Negative (Negative); PH 5.5 (5.0-9.0); Specific Gravity - Urine >= 1.030 (1.005-1.025); UMIC TRIGGER UA YES; Urine Blood Negative (Negative); Urine Ketones Trace mg/dL (Negative); Urine Protein Negative (Neg-Trace)
[2024-08-18 13:33] LABS: MANUAL DIFF FLAG NO
[2024-08-18 13:43] LABS: Bacteria Urine None Seen (None Seen); Hyaline Casts Urine 0-2 /LPF (0-2); RBC Urine 0-2 /HPF (0-2); Squamous Epithelial Cell Urine 0-2 /HPF (0-2); WBC Urine 0-5 /HPF (0-5)
[2024-08-18 14:01] LABS: Basophils Percent Auto 0.5 % (0-2); Eosinophils Percent Auto 0.7 % (0-4); Hematocrit 39.2 % (42.0-52.0); Hemoglobin 12.8 g/dl (14.0-18.0); Imm Gran Abs Auto 0.04 X10*3/uL (0.00-0.03); Imm Gran Pct Auto 0.7 % (0.0-0.4); Lymphocytes Absolute Auto 1.5 X10*3/uL (1.2-4.9); Lymphocytes Percent Auto 25.1 % (20-40); Mean Corpuscular HGB Conc 32.7 g/dl (31.0-36.0); Mean Platelet Volume 10.5 fL (9.4-12.4); Monocytes Absolute Auto 0.5 X10*3/uL (0.1-1.2); Monocytes Percent Auto 8.8 % (2-11); Neutrophils Absolute Auto 3.7 x10*3/uL (2.0-8.3); Neutrophils Percent Auto 64.2 % (45-73); Platelet Count 116 X10*3/uL (160-400); Red Blood Count 4.26 X10*6/uL (4.60-5.80); Red Cell Distribution Width 12.9 % (11.0-16.0); White Blood Count 5.8 X10*3/uL (4.8-10.8)
[2024-08-18 14:10] LABS: Estimated Average Glucose 126 mg/dL; Hemoglobin A1C 131.9944 umol/L; Total Hemoglobin (HGBA1C) 3165.8704 umol/L
[2024-08-18 14:22] LABS: Anion Gap 12 (12-20); Blood Urea Nitrogen 22 mg/dL (9-16); Calcium 8.9 mg/dL (8.4-10.2); Carbon Dioxide 27 mmol/L (22-29); Chloride 109 mmol/L (96-108); Estimated Glomerular Filt Rate > 60; Iron 72 mcg/dL (45-160); Magnesium 1.9 mg/dL (1.6-2.6); Percent Iron Saturation 32 % (15-50); Phosphorus 2.8 mg/dL (2.7-4.5); Potassium 4.5 mmol/L (3.3-5.1); Sodium 143 mmol/L (135-145); Total Iron Binding Capacity 228 mcg/dL (228-428); Unsaturated Iron Binding 156 ug/dL
[2024-08-18 14:25] LABS: Creatinine Urine 60.49 mg/dL; Microalbum/Creatinine Ratio Ur 9.9 ug/mg cr (<30); Total Protein Urine Random < 7 mg/dL (<12)
[2024-08-18 14:28] LABS: Parathyroid Hormone Intact 167.3 pg/mL (8.7-77.1)
[2024-08-18 14:32] LABS: Ferritin 112 ng/mL (20-250); Vitamin D 25-OH Total 49.8 ng/mL (>30)
[2024-08-18 14:40] LABS: Uric Acid 6.8 mg/dL (3.4-7.0)
[2024-08-23 11:49] LABS: Cystatin C 1.58 (H); eGFR (Cystatin C) 44 (L)
== END 2024-08-18 11:52 | disposition home or self-care (01) ==
LOC: HO.HMGCLDS 11:51
PROVIDERS: PCP Internal Medicine; Visit Provider Internal Medicine
DX: N18.2 Chronic kidney disease, stage 2 (mild) (principal); Z13.1 Encounter for screening for diabetes mellitus
CPT/HCPCS: 36415; 80051; 81001; 82043; 82306; 82310; 82565; 82570; 82610; 82728; 83036; 83540; 83735; 83970; 84100; 84156; 84520; 84550; 85025

== ENCOUNTER 2024-09-09 08:38 | Outpatient (AMB) | payer MEDICARE, MEDICAID, SELFPAY ==
--- NOTE | 2024-09-09 08:41 | AM.OFFWIN_ITS ---
Intake Vital Signs 09/09/24 08:42 Weight 228 lb BP 110/70 Blood Pressure Location Rt brachial Position Sitting Pulse 64 Pulse Source Pulse Oximeter Pulse Oximetry (%) 100 Oxygen Delivery Method Room Air Intake Visit Reasons: EP blister on buttocks, painful, making dizzy Intake Note: Patient here for blister/rash on right side, he states it is very painful which has been going on for about 3 weeks. Patient Tobacco Use Status: Never used Tobacco Allergies Sulfa (Sulfonamide Antibiotics) Allergy (Severe, Verified 09/09/24 08:43) CHAVEZ ALICIA REACTION trimethoprim Allergy (Mild, Verified 09/09/24 08:43) UNKNOWN lactose Adverse Reaction (Mild, Verified 09/09/24 08:43) STOMACH UPSET Do you need a note to return to daycare/school/sports/work: No HPI HPI Comments History of Present Illness Details This is a 54-year-old male presenting with his [facility] [facility] staff reporting a painful blister on his buttocks that extends to his right hip. Patient states symptoms have been present for the past 3 weeks and are ?quite painful?. Patient has not taken any medication for treatment of his discomfort. Patient and staff deny any fevers, chills or change in mentation or behaviors. Patient is unable to quantify/qualify the nature of his pain. [facility] Medical History Feeling suicidal Tinea cruris Leg swelling Atrial flutter Atrial fib/flutter, transient A-fib Arrhythmia Abnormal EKG Contusion of left ankle Annual physical exam Abdominal pain Back pain Positive colorectal cancer screening using Cologuard test Precordial chest pain Hospital discharge follow-up Chest pain Right ankle pain Musculoskeletal chest pain Left-sided chest pain Back pain Fall Dysphagia Acute kidney injury Gait instability Suicidal ideation COVID-19 Hypomagnesemia Diarrhea Abdominal pain Ankle pain, left Left ankle sprain Seizure disorder Hypertension Anxiety Hyponatremia Cerebellar ataxia Anemia Lactose intolerance Vertigo Asthma Mental disability Type 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 Proteinuria Hyperlipidemia LDL goal <100 Essential hypertension Surgical History Hx of surgical procedure (07/22/24) Hx of colonoscopy History of orchiectomy Family History Father Myocardial infarction CVD (cardiovascular disease) Diabetes mellitus Mother Diabetes mellitus HTN (hypertension) Brother In good health Sister In good health Social History Household Members: Other Household Members Other:: [facility] [place] [facility] Housing: House Housing Other:: [facility] [facility] [address] [phone] Do you presently have visiting nurse or other home services: Yes 75 years or older and lives alone: No Unable to assess alcohol history related to: Unknown Alcohol intake: never 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 Patient Tobacco Use Status: Never used Tobacco e-Cigarette/Vaping Use: Never Used Second Hand Smoke Exposure: No Advance Directives Date on File: 05/23/21 service: No Current occupational status: disabled Cognitive needs: Yes (walker) Hearing needs: No Vision needs: Yes (glasses) Review of Systems Const All systems reviewed & are unremarkable except as noted in HPI and below Denies chills, Denies fever(s) and Denies lethargy Eyes Reports no additional complaints ENT Reports no additional complaints Card Reports as per HPI Resp Reports as per HPI and Reports no additional complaints GI Reports as per HPI Reports no additional complaints Musc Reports no additional complaints Skin/Breast Denies pruritus, Reports lesions (painful; right buttock ), Reports non-healing lesions and Reports rash Neuro Reports no additional complaints Psych Reports no additional complaints Endo Reports no additional complaints Aller/Immun Reports no additional complaints Physical Exam Vital Signs: Last Vital Signs Pulse 64 09/09/24 08:42 BP 110/70 09/09/24 08:42 Pulse Ox 100 09/09/24 08:42 Oxygen Delivery Method Room Air 09/09/24 08:42 Const General: cooperative, comfortable, alert, awake, Physically active and other (appropriate, pleasant, interactive); No ill appearing or lethargic Nutritional Appearance: overweight Orientation/consciousness: oriented to person and No lethargic Limitations: ambulation with walker Skin Other: Grouped erythematous vesicles and papules in various stages of healing extending from the right medial buttock to the right hip and right inguinal region; no lesions noted on the scrotum or penis. No evidence of a secondary cellulitis. Rashes: rashes noted Neuro General: oriented to person Assessment & Plan Assessment & Plan (1) Herpes zoster: Comment: Patient's history coupled with his examination is consistent with herpes zoster. Code(s): B02.9 - Zoster without complications Qualifiers: Herpes zoster complications: without complications Qualified Code(s): B02.9 - Zoster without complications Plan: Valtrex t.i.d. x7 days and ibuprofen Q 6-8 hours p.r.n. pain. Patient will follow up with primary care physician for any worsening symptoms. Medications: New valacyclovir (Valtrex) 1,000 mg PO TID 21 tabs 0RF ibuprofen 600 mg PO Q6-8H PRN 20 tabs 0RF pain Coding Level of Care Code Est Pt Level 3 (31822) Diagnoses Herpes zoster without complication B02.9 Herpes zoster complications: without complications Time Spent (min) 20
[2024-09-09 08:42] VITALS: BP 110/70; PULSE 64; O2SAT 100
== END 2024-09-09 09:04 | disposition home or self-care (01) ==
PROVIDERS: PCP Internal Medicine; Visit Provider Physician Assistant
DX: B02.9 Zoster without complications (principal)

== ENCOUNTER → 2024-09-09 08:38 | Outpatient (BNVA) | payer MEDICARE, MEDICAID, SELFPAY | PROVIDERS: PCP Internal Medicine; Visit Provider Physician Assistant | DX: B02.9 Zoster without complications (principal) | CPT/HCPCS: 99212 ==

== ENCOUNTER 2024-09-18 09:02 | Outpatient (REF) | payer MEDICARE, MEDICAID, SELFPAY ==
[2024-09-18 11:13] LABS: MANUAL DIFF FLAG NO
[2024-09-18 11:30] LABS: Appearance Urine Clear; Color Urine Yellow; Glucose Urine UA >=1000 mg/dL (Negative); Leukocyte Esterase Urine Negative (Negative); Nitrite Urine Negative (Negative); Specific Gravity - Urine >= 1.030 (1.005-1.025); UMIC TRIGGER UA YES; Urine Blood Negative (Negative); Urine Ketones 15 mg/dL (Negative); Urine Protein Negative (Neg-Trace)
[2024-09-18 11:32] LABS: Basophils Percent Auto 0.6 % (0-2); Eosinophils Percent Auto 0.4 % (0-4); Hematocrit 39.4 % (42.0-52.0); Hemoglobin 13.2 g/dl (14.0-18.0); Imm Gran Abs Auto 0.04 X10*3/uL (0.00-0.03); Imm Gran Pct Auto 0.9 % (0.0-0.4); Lymphocytes Absolute Auto 1.7 X10*3/uL (1.2-4.9); Lymphocytes Percent Auto 36.8 % (20-40); Mean Corpuscular HGB Conc 33.5 g/dl (31.0-36.0); Mean Corpuscular Hemoglobin 30.4 pg (27.0-33.0); Mean Corpuscular Volume 90.8 fL (80.0-98.0); Mean Platelet Volume 10.2 fL (9.4-12.4); Monocytes Absolute Auto 0.4 X10*3/uL (0.1-1.2); Monocytes Percent Auto 8.4 % (2-11); Neutrophils Absolute Auto 2.5 x10*3/uL (2.0-8.3); Neutrophils Percent Auto 52.9 % (45-73); Platelet Count 111 X10*3/uL (160-400); Red Blood Count 4.34 X10*6/uL (4.60-5.80); Red Cell Distribution Width 12.8 % (11.0-16.0); White Blood Count 4.7 X10*3/uL (4.8-10.8)
[2024-09-18 11:33] LABS: Estimated Average Glucose 134 mg/dL; Hemoglobin A1C 160.1329 umol/L; Hemoglobin A1c % 6.3 % (<6.0); Total Hemoglobin (HGBA1C) 3504.5998 umol/L
[2024-09-18 11:37] LABS: Estimated Average Glucose 137 mg/dL; Hemoglobin A1C 164.1945 umol/L; Hemoglobin A1c % 6.4 % (<6.0)
[2024-09-18 11:46] LABS: Alanine Aminotransferase 23 U/L (0-40); Albumin Level 3.6 g/dL (3.5-5.0); Alkaline Phosphatase 75 U/L (39-117); Anion Gap 12 (12-20); Aspartate Amino Transferase 22 U/L (5-37); Bilirubin Total 0.4 mg/dL (0.0-1.0); Blood Urea Nitrogen 14 mg/dL (9-16); Calcium 8.9 mg/dL (8.4-10.2); Carbon Dioxide 26 mmol/L (22-29); Chloride 106 mmol/L (96-108); Cholesterol 140 mg/dL (<200); Estimated Glomerular Filt Rate > 60; Glucose Random 137 mg/dL (60-115); HDL Cholesterol 34 mg/dL (>40); LDL Cholesterol Calculated 80 mg/dL (<100); Potassium 4.3 mmol/L (3.3-5.1); Sodium 140 mmol/L (135-145); Total Protein 6.7 g/dL (6.5-8.0); Triglycerides 134 mg/dL (<150)
[2024-09-18 11:46] LABS: Bacteria Urine None Seen (None Seen); Hyaline Casts Urine 0-2 /LPF (0-2); RBC Urine 0-2 /HPF (0-2); Squamous Epithelial Cell Urine 0-2 /HPF (0-2); WBC Urine 0-5 /HPF (0-5)
[2024-09-18 11:51] LABS: Anion Gap 13 (12-20); Blood Urea Nitrogen 15 mg/dL (9-16); Calcium 8.8 mg/dL (8.4-10.2); Carbon Dioxide 24 mmol/L (22-29); Chloride 107 mmol/L (96-108); Estimated Glomerular Filt Rate > 60; Iron 122 mcg/dL (45-160); Magnesium 1.8 mg/dL (1.6-2.6); Percent Iron Saturation 56 % (15-50); Potassium 4.3 mmol/L (3.3-5.1); Sodium 140 mmol/L (135-145); Total Iron Binding Capacity 218 mcg/dL (228-428); Unsaturated Iron Binding 96 ug/dL; Uric Acid 6.6 mg/dL (3.4-7.0)
[2024-09-18 11:52] LABS: Creatinine Urine 85.79 mg/dL; Microalbumin Urine < 5.0 mg/L; Total Protein Urine Random < 7 mg/dL (<12)
[2024-09-18 11:52] LABS: Parathyroid Hormone Intact 114.4 pg/mL (8.7-77.1)
[2024-09-18 11:53] LABS: Free T4 (Free Thyroxine) 1.21 ng/dL (0.71-1.85); Thyroid Stimulating Hormone 1.33 uIU/mL (0.32-4.0)
[2024-09-18 11:54] LABS: Ferritin 154 ng/mL (20-250)
[2024-09-18 12:05] LABS: Folate 6.5 ng/mL (> or = 4.0); Prostate Specific Antigen Scr 0.67 ng/mL (<0.05-4.0); Vitamin B12 > 2000 pg/mL (200-900)
== END 2024-09-18 09:03 | disposition home or self-care (01) ==
LOC: HO.HMGCLDS 09:02
PROVIDERS: PCP Internal Medicine; Visit Provider Internal Medicine
DX: N18.2 Chronic kidney disease, stage 2 (mild) (principal); E11.65 Type 2 diabetes mellitus with hyperglycemia; E78.00 Pure hypercholesterolemia, unspecified; Z12.5 Encounter for screening for malignant neoplasm of prostate
CPT/HCPCS: 36415; 80051; 80053; 80061; 81001; 82306; 82310; 82565; 82570; 82607; 82728; 82746; 83036; 83540; 83735; 83970; 84153; 84156; 84439; 84443; 84520; 84550; 85025

== ENCOUNTER 2024-09-20 10:53 | Outpatient (AMB) | payer MEDICARE, MEDICAID, SELFPAY ==
--- NOTE | 2024-09-20 10:54 | A.OFFPC_ITS ---
Vital Signs 09/20/24 10:55 09/20/24 11:36 Height 5 ft 5 in Weight 228 lb 9.91 oz BMI 38.0 BP 142/80 H 124/80 Blood Pressure Location Lt brachial Lt brachial Position Sitting Sitting Pulse 67 Pulse Source Pulse Oximeter Pulse Oximetry (%) 97 Oxygen Delivery Method Room Air Intake Visit Reasons: f/u 09/09 [facility] walk-[facility] blister on buttock Clinical Ob Required: No Allergies Sulfa (Sulfonamide Antibiotics) Allergy (Severe, Verified 09/20/24 10:59) CHAVEZ ALICIA REACTION trimethoprim Allergy (Mild, Verified 09/20/24 10:59) UNKNOWN lactose Adverse Reaction (Mild, Verified 09/20/24 10:59) STOMACH UPSET Medication List - Last Reconciled 09/20/24 by Tayler Holt PA-C acetaminophen 650 mg (2 x 325 mg) PO Q4H PRN 90 days albuterol sulfate 90 mcg/actuation 2 puffs inhalation Q6H PRN [[id number] As directed] atorvastatin 10 mg PO BEDTIME [Bilateral custom AFO As directed] bismuth subsalicylate (Pepto-Bismol) 524 mg (30 mL) PO QID PRN 7 days blood sugar diagnostic (Need Fixed No Coding strips) As directed 2 times per day blood-glucose meter (Orthodatauch Ultra2 Meter) test once daily blood-glucose meter (Need Fixed Autocode Blood Glucose Monitoring System) As directed cholecalciferol (vitamin D3) 25 mcg PO DAILY clonidine HCl 0.1 mg PO BEDTIME [email or web address],knee,reg,xlrg As directed 10-20 mm HG cyanocobalamin (vitamin B-12) 1,000 mcg PO BEDTIME dextromethorphan polistirex ER (Delsym 12 hour) 10 mL PO Q12H PRN divalproex ER 1,000 mg PO BID empagliflozin (Jardiance) 25 mg PO DAILY esomeprazole magnesium (Nexium) 40 mg PO BEDTIME ferrous sulfate 325 mg PO BID fluoride (sodium) 1.1% (PreviDent 5000 Booster Plus) 1 appl dental BID fluticasone propionate 50 mcg/actuation (Flonase Allergy Relief) 1 spray intranasal BID gabapentin 300 mg PO BID guaifenesin (Siltussin SA) 200 mg PO Q4H PRN [Heat Moldable shoe inserts As directed] hydralazine 50 mg PO TID hydroxyzine pamoate 50 mg PO DAILY PRN ibuprofen 800 mg PO Q8H PRN ibuprofen 600 mg PO Q6-8H PRN lactase (Lactaid) 3,000 units PO TIDWM PRN lancets (Prodigy Lancets) As directed check BS twice a day lancets (Yoink GamesTouch UltraSoft 2 Lancet) test once daily lancing device (Need Fixed Lancing Device) As directed metformin 500 mg PO BID methylcellulose (laxative) (Citrucel) 1,000 mg (2 x 500 mg) PO DAILY 30 days mometasone-formoterol 200-5 mcg/actuation (Dulera) 2 puffs inhalation BID [id number] 3.5-400-5,000 [id number] (Triple Antibiotic) 1 appl topical BID nystatin 1 appl topical TID PRN ondansetron 4 mg PO Q6H PRN propranolol 20 mg PO TID@0800,1600,2000 90 days risperidone 3 mg PO BID sennosides (senna) 17.2 mg PO DAILY PRN starch (thickening) (Diafoods Thick-It oral powder) Add thick it powder to food and beverage using enclosed measuring spoon TID 30 days valacyclovir (Valtrex) 1,000 mg PO TID Tobacco use date assessed: 04/07/24 Dental Screening Dental Screen Date: 04/07/24 HPI f/u 09/09 [facility] walk-[facility] blister on buttock HPI Details 54-year-old obese male with mental behav ioral problem has cerebellar ataxia diabetes mellitus hypercholesterolemia hypertension asthma and atrial flutter coming in for follow up. Patient was recently seen in [facility] [place] [facility] 09/09/2024 for shingles patient was given Valtrex and ibuprofen and discharged home. Patient continues to follow with Nephrology for several different concerns. He states the pain from the shingles has been improving however he does still have some pain in the buttocks. He would like to return to day program and needs a note to do so once he is not contagious the longer. He has no other concerns. [facility] Medical History Feeling suicidal Tinea cruris Leg swelling Atrial flutter Atrial fib/flutter, transient A-fib Arrhythmia Abnormal EKG Contusion of left ankle Annual physical exam Abdominal pain Back pain Positive colorectal cancer screening using Cologuard test Precordial chest pain Hospital discharge follow-up Chest pain Right ankle pain Musculoskeletal chest pain Left-sided chest pain Back pain Fall Dysphagia Acute kidney injury Gait instability Suicidal ideation COVID-19 Hypomagnesemia Diarrhea Abdominal pain Ankle pain, left Left ankle sprain Seizure disorder Hypertension Anxiety Hyponatremia Cerebellar ataxia Anemia Lactose intolerance Vertigo Asthma Mental disability Type 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 Proteinuria Hyperlipidemia LDL goal <100 Essential hypertension Surgical History Hx of surgical procedure (07/22/24) Hx of colonoscopy History of orchiectomy Family History Father Myocardial infarction CVD (cardiovascular disease) Diabetes mellitus Mother Diabetes mellitus HTN (hypertension) Brother In good health Sister In good health Social History Household Members: Other Household Members Other:: [place] [facility] Housing: [place] Other:: [place] [facility] [phone] Do you presently have visiting nurse or other home services: Yes Unable to assess alcohol history related to: Unknown Alcohol intake: never 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 Patient Tobacco Use Status: Never used Tobacco e-Cigarette/Vaping Use: Never Used Second Hand Smoke Exposure: No Advance Directives Date on File: 05/23/21 service: No Current occupational status: disabled Cognitive needs: Yes (walker) Hearing needs: No Vision needs: Yes (glasses) Questionnaire Thrive Questionnaire Date Thrive assessed: 11/14/23 AUDIT C Alcohol Use Questionnaire (AUDIT-C) 3. How often do you have six or more drinks on one occasion?: Never Total Score: 0 CHANI-7 AMB Questionnaire CHANI-7 Date CHANI - 7 assessed: 11/14/23 Source: Developed by Drs. Wellington López, Monica Jackson, Ray Nguyen and colleagues, with an educational perez from [employer]. Review of Systems Const Denies body aches, Denies chills, Denies fever(s), Denies headache(s) and Denies poor appetite ENT Denies dizziness and Denies headache(s) Card Denies chest pain, Denies syncope and Denies dyspnea Resp Denies cough and Denies dyspnea GI Denies abdominal pain Musc Reports no additional complaints and Denies abnormal gait Skin/Breast Reports system reviewed and no additional complaints, except as documented Neuro Denies abnormal gait, Denies dizziness, Denies syncope and Denies headache(s) Psych Reports no additional complaints Physical exam (Primary Care) Vital Signs: Last Vital Signs Pulse 67 09/20/24 10:55 BP 142/80 H 09/20/24 10:55 Pulse Ox 97 09/20/24 10:55 Oxygen Delivery Method Room Air 09/20/24 10:55 BMI result Body Mass Index 38.0 Tobacco/Smoking Status: Tobacco use Status Tobacco use date assessed 04/07/24 09/20/24 10:54 Patient Tobacco Use Status Never used Tobacco 09/20/24 10:54 e-Cigarette/Vaping Use Never Used 09/20/24 10:54 Thrive Assessment: Date of Thrive Assessment Date Thrive assessed 11/14/23 09/20/24 10:54 Const General: cooperative, healthy appearing, comfortable and no acute distress Orientation/consciousness: patient oriented x3 HENMT Head: Yes normocephalic Ears: hearing grossly normal bilaterally General nose exam: Normal external nose present Eyes General: appearance normal, both eyes and all related structures Conjunctivae: conjunctivae normal Neck Neck: Yes full ROM and Yes no lymphadenopathy Resp Effort & Inspection: normal respiratory effort Cardio Rate: regular rate Rhythm: regular rhythm Skin Other: Multiple ruptured, crusted vesicular lesions on the buttocks and a dermatomal pattern. One 2 to scattered vesicular lesions still present Neuro General: patient oriented x3 Gait exam (Neuro): Normal gait present Extrem General: Yes normal to inspection, Yes full ROM and No edema Psych Affect: normal affect Attitude: cooperative Insight: Good insight present (Psych) Judgement: Good judgement present (Psych) Coding Level of Care Code Est Pt Level 4 (33952) Diagnoses Type 2 diabetes mellitus with hyperglycemia E11.65 Herpes zoster without complication B02.9 Herpes zoster complications: without complications Gastroesophageal reflux disease, unspecified whether esophagitis present K21.9 Esophagitis presence: esophagitis presence not specified Essential hypertension I10 Hyperlipidemia LDL goal <100 E78.5 Assessment & Plan Assessment & Plan (1) Type 2 diabetes mellitus with hyperglycemia: Code(s): E11.65 - Type 2 diabetes mellitus with hyperglycemia Category: Medical Plan: Decrease the amount of carbohydrates such as pasta, bread, rice, and potatoes and limit the amount of sweets. Although fruits are generally healthy they should be eaten in moderation as they are still high in sugar. Hemoglobin A1c goal of less than 7%. Continue on current medication regimen. Did discuss with patient that his A1c is increasing and we had to work on diet and exercise. (2) Herpes zoster: Comment: Patient's history coupled with his examination is consistent with herpes zoster. Code(s): B02.9 - Zoster without complications Category: Medical Qualifiers: Herpes zoster complications: without complications Qualified Code(s): B02.9 - Zoster without complications Plan: Lesions have mostly crusted over and healed. Does have scattered vesicular lesions still present and discussed that patient is contagious until all vesicular lesions have ruptured and crusted over. Patient is not cleared to return to day program at this time as he often will each of the lesions. Advised patient to avoid scratching the lesions as this is how the rash can spread. Sent prescription for lidocaine patch for pain related to shingles. (3) GERD (gastroesophageal reflux disease): Code(s): K21.9 - Gastro-esophageal reflux disease without esophagitis Category: Medical Qualifiers: Esophagitis presence: esophagitis presence not specified Qualified Code(s): K21.9 - Gastro-esophageal reflux disease without esophagitis Plan: Avoid trigger foods such as citrus, tomato products, soda, caffeine, spicy foods and other foods that may be irritating to your stomach. Avoid laying flat 3-4 hours after eating and elevate the head of the bed 30 degrees to prevent acid from moving into the esophagus. (4) Essential hypertension: Code(s): I10 - Essential (primary) hypertension Category: Medical Plan: Continue on current blood pressure medication. Avoid salt intake and encourage healthy diet and regular exercise. (5) Hyperlipidemia LDL goal <100: Code(s): E78.5 - Hyperlipidemia, unspecified Category: Medical Plan: Avoid foods that are high in cholesterol such as red meat, fried foods, eggs and baked goods. Triglyceride goal of less than 150 and LDL goal of less than 100. Ordered for updated blood work Plan This note was constructed using voice recognition software. While every effort has been made to ensure accuracy and human services worker, still areas may have been included sometimes these areas may affect the content or meeting of the given symptoms. Total time spent caring for the patient today was 30 minutes. This includes time spent before the visit reviewing the chart, time spent during the visit, and time spent after the visit and documentation. Orders: Referrals Podiatry Referral E11.65 - Type 2 diabetes mellitus with hyperglycemia Medications: New lidocaine 5% leave on most painful area for 4-5 hours. 1 patch topical DAILY PRN 15 ea 0RF pain
[2024-09-20 10:55] VITALS: BP 142/80; PULSE 67; O2SAT 97; BMI 38.0
[2024-09-20 11:36] VITALS: BP 124/80
== END 2024-09-20 11:40 | disposition home or self-care (01) ==
PROVIDERS: PCP Internal Medicine
DX: E11.65 Type 2 diabetes mellitus with hyperglycemia (principal); B02.9 Zoster without complications; K21.9 Gastro-esophageal reflux disease without esophagitis; I10 Essential (primary) hypertension; E78.5 Hyperlipidemia, unspecified

== ENCOUNTER → 2024-09-20 10:53 | Outpatient (BNVA) | payer MEDICARE, MEDICAID, SELFPAY | PROVIDERS: PCP Internal Medicine | DX: E11.65 Type 2 diabetes mellitus with hyperglycemia (principal); B02.9 Zoster without complications; K21.9 Gastro-esophageal reflux disease without esophagitis; I10 Essential (primary) hypertension; E78.5 Hyperlipidemia, unspecified | CPT/HCPCS: 99212 ==

== ENCOUNTER 2024-10-13 16:18 | Emergency (ER) | payer MEDICARE, MEDICAID, SELFPAY ==
--- NOTE | ~2024-10-13 | CT_ITS ---
EXAMINATION: CT HEAD WITHOUT CONTRAST CT CERVICAL SPINE WITHOUT CONTRAST CLINICAL INFORMATION: Fall. COMPARISON: CT head and cervical spine from 04/12/2024. TECHNIQUE: Contiguous axial imaging was performed from the skull base to vertex without intravenous administration of contrast. Contiguous axial imaging was performed from the upper chest through the skull base without intravenous administration of contrast. Coronal and sagittal reformats were obtained at the acquisition workstation. This CT examination was performed using dose optimization techniques as appropriate, variously including the following: *Automated exposure control. *Adjustment of mA and/or kV according to patient size (this includes techniques or standardized protocols for targeted exams where dose is matched to indication/reason for exam; i.e. extremities or head). *Use of iterative reconstruction technique. DLP: 1324 mGy-cm FINDINGS: Head: There is no evidence of acute intracranial hemorrhage or edematous territorial infarction. Shell-white matter differentiation is preserved. There is no abnormal attenuation within the brain parenchyma. The ventricles are normal in morphology and size. No evidence for obstructive hydrocephalus. No abnormal mass effect or midline shift. No extra-axial fluid collections. Calcific atherosclerotic disease of the intracranial internal carotid arteries. No hyperdense vessel sign. No acute soft tissue or osseous abnormalities. Mild mucosal thickening of the paranasal sinuses. The mastoid air cells and middle ear cavities are clear. Cervical Spine: The atlantooccipital and atlantoaxial articulations remain well aligned. Straightening of the normal cervical lordosis. Mild left convex curvature of the cervical spine. Otherwise, there is anatomic alignment of the vertebral bodies and posterior elements. No evidence of acute fracture or subluxation. The vertebral body heights are maintained. Moderate degenerative disc disease from C3-C7 with disc-osteophyte complex formation. There appears to be at least mild spinal canal stenosis from C3-C6. Facet and uncovertebral joint arthropathy leads to osseous encroachment on the neural foramina from C2-C7. There is no prevertebral soft tissue swelling. The thyroid gland and remaining cervical soft tissues are within normal limits. The lung apices demonstrate no abnormalities. CT/CT cervical spine wo IV con IMPRESSION: 1. No evidence of acute intracranial hemorrhage or edematous territorial infarction. 2. No evidence of acute fracture or traumatic subluxation of the cervical spine. 3. Moderate multilevel degenerative spondyloarthropathy of the cervical spine. Most notably on this limited exam without intrathecal contrast, there appears to be at least mild spinal canal stenosis from C3-C6. Electronically signed by: Kaden Gilliland DO 10/13/2024 09:10 PM [facility]
--- NOTE | ~2024-10-13 | XR_ITS ---
EXAMINATION: XR SHOULDER, RIGHT CLINICAL INFORMATION: pain COMPARISON: 07/15/2024 TECHNIQUE: AP external rotation, Grashey, scapular Y, and axillary views of the right shoulder. FINDINGS: No acute fracture or dislocation. Mild degenerative changes of the right shoulder joint. XR/XR shoulder RT min 2V IMPRESSION: Mild degenerative changes of the right shoulder joint. Electronically signed by: Marla Fraga MD 10/13/2024 07:06 PM [facility]
--- NOTE | ~2024-10-13 | XR_ITS ---
EXAMINATION: XR LUMBOSACRAL SPINE CLINICAL INFORMATION: fall COMPARISON: None available. TECHNIQUE: Three views of the lumbosacral spine. FINDINGS: 5 lumbar type vertebral bodies are present. Vertebral body heights are preserved. Multilevel disc space narrowing and osteophytosis most prominent at T12/L1. Moderate aortic atherosclerotic calcifications, greater than expected for patient age. XR/XR lumbar spine 2-3V IMPRESSION: * Moderate degenerative changes of the lumbar spine. * Moderate aortic atherosclerotic calcifications, greater than expected for patient age. Electronically signed by: Marla Fraga MD 10/13/2024 07:01 PM [facility]
[2024-10-13 16:40] VITALS: BP 109/62; PULSE 78; RESP 16; TEMP 36.6; O2SAT 100
[2024-10-13 17:57] VITALS: BP 120/76; PULSE 75; RESP 16; TEMP 36.7; O2SAT 97
--- NOTE | 2024-10-13 18:31 | ED.GENADULT ---
HPI - General Adult General Chief complaint: General Medical Stated complaint: R SHOULDER AND BACK PAIN Time Seen by Provider: 10/13/24 17:49 Source: patient, RN notes reviewed, old records reviewed and other (skilled nursing staff member) Mode of arrival: EMS Limitations: other (poor historian) History of Present Illness ED Provider: Abhi HPI narrative: 54-year-old male with past medical history significant for hypertension, hyperlipidemia, diabetes, hyponatremia, anxiety, depression, cerebellar ataxia, obesity, peripheral vascular disease, seizure disorder presents for evaluation of right ear pain. Patient presents from a local skilled nursing. He was apparently diagnosed with COVID-19 2 days ago However he is here today because he has blisters on his right ear and complains of ear pain. He was diagnosed with shingles a couple of weeks ago with a rash on his lower back The patient also complains of right shoulder pain and states that he fell yesterday. He also reports that he hit his head and has a mild headache The fall yesterday was not witnessed. He denies any chest pain or shortness of breath. His pain is 04/19 Related Data Home Medications ?Medication ?Instructions ?Recorded ?Confirmed divalproex 500 mg tablet,extended 1,000 mg PO BID 06/10/23 09/20/24 release 24 hr gabapentin 100 mg capsule 300 mg PO BID 06/10/23 09/20/24 risperidone 3 mg tablet 3 mg PO BID 06/10/23 09/20/24 albuterol sulfate 90 mcg/actuation 2 puff inhalation Q6H PRN Wheezing 07/29/23 09/20/24 aerosol inhaler guaifenesin 100 mg/5 mL oral 200 mg PO Q4H PRN Cough 07/29/23 09/20/24 liquid (Siltussin SA) ondansetron 4 mg disintegrating 4 mg PO Q6H PRN Nausea And Vomiting 07/29/23 09/20/24 tablet hydroxyzine pamoate 50 mg capsule 50 mg PO DAILY PRN 10/13/23 09/20/24 AGITATION/ANXIETY neomycin-bacitracn Zn-polymyxn 3.5 1 appl topical BID 10/13/23 09/20/24 mg-400 unit-5,000 unit top oint pkt (Triple Antibiotic) sennosides 8.6 mg tablet (senna) 17.2 mg PO DAILY PRN Constipation 02/13/24 11/11/24 clonidine HCl 0.1 mg tablet 0.1 mg PO BEDTIME 07/09/24 09/20/24 Previous Rx's ?Medication ?Instructions ?Recorded lancets 30 gauge (OneTouch #100 ea 06/17/23 UltraSoft 2 Lancet) bismuth subsalicylate 262 mg/15 mL 524 mg (30 mL) PO QID PRN diarrhea 08/01/23 oral suspension (Pepto-Bismol) 7 days #1,200 mL nystatin 100,000 unit/gram topical 1 appl topical TID PRN Rash #60 08/04/23 powder grams lactase 3,000 unit tablet (Lactaid) 3,000 unit PO TIDWM PRN Lactose 11/14/23 Intolerance #30 tabs hydralazine 50 mg tablet 50 mg PO TID #90 tabs 01/29/24 acetaminophen 325 mg tablet 650 mg (2 x 325 mg) PO Q4H PRN 02/04/24 fever or pain 90 days #180 tabs methylcellulose (laxative) 500 mg 1,000 mg (2 x 500 mg) PO DAILY 30 02/26/24 tablet (Citrucel) days #60 tabs starch (thickening) (Diafoods See Rx Instructions PO .COMPLEX 30 03/17/24 Thick-It oral powder) days #850 grams blood-glucose meter (OneTouch #1 ea 04/07/24 Ultra2 Meter) blood-glucose meter (Prodigy #1 ea 04/07/24 Autocode Blood Glucose Monitoring System) lancets 28 gauge (Prodigy Lancets) #200 ea 04/07/24 lancing device (Prodigy Lancing #1 ea 04/07/24 Device) fluticasone propionate 50 1 spray intranasal BID #16 grams 06/17/24 mcg/actuation nasal spray,suspension (Flonase Allergy Relief) blood sugar diagnostic (Prodigy No #100 ea 07/19/24 Coding strips) alvarez.stocking,knee,reg,xlrg #12 ea 07/19/24 ibuprofen 800 mg tablet 800 mg PO Q8H PRN pain #30 tabs 07/22/24 cyanocobalamin (vitamin B-12) 1,000 mcg PO BEDTIME #90 tabs 07/30/24 1,000 mcg tablet ferrous sulfate 325 mg (65 mg 325 mg PO BID #180 tabs 09/02/24 iron) tablet [id number] #1 ea 09/03/24 Bilateral custom AFO #2 ea 09/03/24 Heat Moldable shoe inserts #2 ea 09/03/24 atorvastatin 10 mg tablet 10 mg PO BEDTIME #90 tabs 09/09/24 ibuprofen 600 mg tablet 600 mg PO Q6-8H PRN pain #20 tabs 09/09/24 metformin 500 mg tablet 500 mg PO BID #180 tabs 09/09/24 propranolol 20 mg tablet 20 mg PO TID@0800,1600,2000 90 09/09/24 days #270 tabs valacyclovir 1 gram tablet 1,000 mg PO TID #21 tabs 09/09/24 (Valtrex) lidocaine 5 % topical patch 1 patch topical DAILY PRN pain #15 09/20/24 ea mometasone-formoterol HFA 200 2 puff inhalation BID #13 grams 09/22/24 mcg-5 mcg/actuation aerosol inhaler (Dulera) cholecalciferol (vitamin D3) 25 25 mcg PO DAILY #30 tabs 10/09/24 mcg (1,000 unit) tablet empagliflozin 25 mg tablet 25 mg PO DAILY #30 tabs 10/09/24 (Jardiance) esomeprazole magnesium 40 mg 40 mg PO BEDTIME #28 caps 10/09/24 capsule,delayed release (Nexium) dextromethorphan polistirex 30 10 ml PO Q12H PRN cough #89 mL 10/13/24 mg/5 mL oral susp ext.release 12hr (Delsym 12 hour) fluoride (sodium) 1.1 % dental 1 appl dental BID #100 mL 10/13/24 paste (PreviDent 5000 Booster Plus) prednisone 20 mg tablet 40 mg (2 x 20 mg) PO DAILY #10 tabs 10/13/24 valacyclovir 1 gram tablet 1,000 mg PO TID #21 tabs 10/13/24 Allergies Allergy/AdvReac Type Severity Reaction Status Date / Time Sulfa (Sulfonamide Allergy Severe CHAVEZ Verified 10/13/24 19:05 Antibiotics) ALICIA REACTION trimethoprim Allergy Mild UNKNOWN Verified 10/13/24 19:05 lactose AdvReac Mild STOMACH Verified 10/13/24 19:05 UPSET Review of Systems Constitutional: Constitutional: Denies body ache(s), Denies chills, Denies fever(s), Reports frequent falls and Reports headache(s) Eyes: Eyes: Denies blurry vision ENT: Denies vertigo, Denies dizziness, Denies ear discharge, Reports otalgia and Reports headache(s) Cardiovascular: Cardiovascular: Denies chest pain and Denies syncope Respiratory: Respiratory: Denies cough Gastrointestinal: Gastrointestinal: Denies abdominal pain, Denies nausea and Denies vomiting Musculoskeletal: Musculoskeletal: Reports back pain, Reports arthralgias, Denies joint swelling and Reports limited range of motion Integumentary/Breasts: Skin/Breast: Reports erythema and Reports rash Neurologic: Denies vertigo, Denies dizziness, Denies syncope, Reports frequent falls and Reports headache(s) [facility] Past Medical History Medical History Feeling suicidal Tinea cruris Leg swelling Atrial flutter Atrial fib/flutter, transient A-fib Arrhythmia Abnormal EKG Contusion of left ankle Annual physical exam Abdominal pain Back pain Positive colorectal cancer screening using Cologuard test Precordial chest pain Hospital discharge follow-up Chest pain Right ankle pain Musculoskeletal chest pain Left-sided chest pain Back pain Fall Dysphagia Acute kidney injury Gait instability Suicidal ideation COVID-19 Hypomagnesemia Diarrhea Abdominal pain Ankle pain, left Left ankle sprain Seizure disorder Hypertension Anxiety Hyponatremia Cerebellar ataxia Anemia Lactose intolerance Vertigo Asthma Mental disability Type 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 Proteinuria Hyperlipidemia LDL goal <100 Essential hypertension Surgical History Hx of surgical procedure (07/22/24) Hx of colonoscopy History of orchiectomy Family History Family History Father Myocardial infarction CVD (cardiovascular disease) Diabetes mellitus Mother Diabetes mellitus HTN (hypertension) Brother In good health Sister In good health Social History Social History Household Members: Other Household Members Other:: from skilled nursing Housing: House Housing Other:: skilled nursing [facility] [address] [place] [phone] Do you presently have visiting nurse or other home services: Yes Unable to assess alcohol history related to: Unknown Alcohol intake: never 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 Patient Tobacco Use Status: Never used Tobacco e-Cigarette/Vaping Use: Never Used Second Hand Smoke Exposure: No Advance Directives: No Advance Directives Information Provided: No Advance Directives Date on File: 05/23/21 service: No Current occupational status: disabled Cognitive needs: Yes (walker) Hearing needs: No Vision needs: Yes (glasses) Physical Exam ED Vital Signs: Vital Signs - 24 hr 10/13/24 16:40 10/13/24 17:57 10/13/24 19:03 Temperature 97.9 F 98.0 F 97.9 F Pulse Rate 78 75 78 Respiratory Rate 16 16 18 Blood Pressure 109/62 120/76 109/62 Pulse Oximetry 100 97 100 Oxygen Delivery Method Room Air Room Air Room Air BMI result Body Mass Index 36.7 Const General: healthy appearing, comfortable, no acute distress, alert and awake Nutritional Appearance: well nourished Orientation/consciousness: patient oriented x3 HENMT Head: Yes normocephalic and Yes atraumatic Ears: TM's normal bilaterally and EAC's normal Eyes Eyelids: Yes eyelids normal Conjunctivae: conjunctivae normal Sclerae: sclerae normal Corneas: corneas normal Neck Neck: Yes full ROM Resp Effort & Inspection: normal respiratory effort, able to speak in complete sentences, no audible wheezes and not labored Auscultation: clear to auscultation bilaterally GI Inspection: No distended Palpation (GI): Soft to palpation, not firm, nontender, no guarding and not rigid Skin Other: The patient has mild erythema to the right ear with two crusted lesions to the outer ear General skin exam: elasticity normal Neuro General: patient oriented x3 Cranial nerves: Yes Bilaterally intact EOM present Extrem Other: .Moving all extremities well without any obvious deformities Patient does have tenderness palpation of the right anterior shoulder over the acromioclavicular joint. He is able to abduct his arm up to shoulder level Medications Administered Discontinued Medications Generic Name Dose Route Start Last Admin Trade Name Freq PRN Reason Stop Dose Admin Acetaminophen 650 mg 10/13/24 18:11 10/13/24 19:15 Acetaminophen 325 Mg Tablet PO 10/13/24 18:12 650 mg ONCE ONE Administration Medical Decision Making Medical Decision Making MDM Narrative: 54 year old mla ewith history as documented above presents for evaluation of right ear and shoulder pain. He appears to have a reactivation of zoster to his right outer ear, no involvement of the ear canal. We will get imaging of his right shoulder and head/c-spine due to the reported fall last night. He was given Acetaminophen for pain to his right shoulder. He is not hypoxic, the covid diagnosis does not appear to be an acute issue Differential Diagnosis Differential Diagnoses: The differential diagnosis associated with the presentation includes Shoulder pain shingles Shoulder fracture Dislocation Intracranial hemorrhage Cervical fracture Compression fracture Independent Interpretation I performed an independent interpretation of an: Plain X-Ray and CT Scan Radiology Impression Discussion of test interpretation with radiology: I have reviewed the radiologist's reading. Radiologist Impression: CT/CT head/brain wo IV con IMPRESSION: 1. No evidence of acute intracranial hemorrhage or edematous territorial infarction. 2. No evidence of acute fracture or traumatic subluxation of the cervical spine. 3. Moderate multilevel degenerative spondyloarthropathy of the cervical spine. Most notably on this limited exam without intrathecal contrast, there appears to be at least mild spinal canal stenosis from C3-C6. Electronically signed by: Kaden Gilliland DO 10/13/2024 09:10 PM EST RP FINDINGS: No acute fracture or dislocation. Mild degenerative changes of the right shoulder joint. XR/XR shoulder RT min 2V IMPRESSION: Mild degenerative changes of the right shoulder joint. Electronically signed by: Marla Fraga MD 10/13/2024 07:06 PM EST RP FINDINGS: 5 lumbar type vertebral bodies are present. Vertebral body heights are preserved. Multilevel disc space narrowing and osteophytosis most prominent at T12/L1. Moderate aortic atherosclerotic calcifications, greater than expected for patient age. XR/XR lumbar spine 2-3V IMPRESSION: * Moderate degenerative changes of the lumbar spine. * Moderate aortic atherosclerotic calcifications, greater than expected for patient age. Electronically signed by: Marla Fraga MD 10/13/2024 07:01 PM EST RP External Record Review External record reviewed: Inpatient record and Outpatient record Prescription Management I considered prescription management with: Pain Medication Discharge Plan Discharge Clinical Impression: Acute pain of right ear, Acute shoulder pain Patient Disposition: Home, Self-Care Instructions: Shingles (ED), Arthralgia (ED) Additional Instructions: Your workup in the ER today was reassuring. Your CT scan did not show any injury to your head or neck. Your x-ray showed arthritis of the shoulder and lower back The rash on your ear is likely a reactivation of the shingles Take prednisone and valacyclovir Follow-up with your primary doctor Prescriptions: New prednisone 20 mg tablet 40 mg PO DAILY Qty: 10 0RF valacyclovir 1 gram tablet 1,000 mg PO TID Qty: 21 0RF No Action (DME) lancets [OneTouch UltraSoft 2 Lancet] 30 gauge misc See Rx Instructions .Route Qty: 100 5RF Rx Instructions: test once daily nystatin 100,000 unit/gram powder 1 appl TOPICAL TID PRN (Reason: Rash) Qty: 60 0RF hydralazine 50 mg tablet 50 mg PO TID Qty: 90 3RF Citrucel 500 mg tablet 1,000 mg PO DAILY 30 Days Qty: 60 2RF Diafoods Thick-It Powder See Rx Instructions PO .COMPLEX 30 Days Qty: 850 12RF Rx Instructions: Add thick it powder to food and beverage using enclosed measuring spoon TID (DME) blood-glucose meter [[employer] Autocode Monitor Syst] Misc See Rx Instructions .Route Qty: 1 0RF Rx Instructions: As directed fluticasone propionate [Flonase Allergy Relief] 50 mcg/actuation spray,suspension 1 spray intranasal BID Qty: 16 12RF Rx Instructions: administer into each nostril cyanocobalamin (vitamin B-12) 1,000 mcg tablet 1,000 mcg PO BEDTIME Qty: 90 0RF ferrous sulfate 325 mg (65 mg iron) tablet 325 mg PO BID Qty: 180 0RF (DME) [id number] XW 3 See Rx Instructions .Route .MEDSUPPLY Qty: 1 0RF Rx Instructions: As directed (DME) Heat Moldable shoe inserts See Rx Instructions .Route .MEDSUPPLY Qty: 2 0RF Rx Instructions: As directed (DME) Bilateral custom AFO See Rx Instructions .Route .MEDSUPPLY Qty: 2 0RF Rx Instructions: As directed atorvastatin 10 mg tablet 10 mg PO BEDTIME Qty: 90 0RF propranolol 20 mg tablet 20 mg PO TID@0800,1600,2000 90 Days Qty: 270 0RF metformin 500 mg tablet 500 mg PO BID Qty: 180 0RF Dulera 200-5 mcg/actuation HFA aerosol inhaler 2 puff inhalation BID Qty: 13 0RF cholecalciferol (vitamin D3) 25 mcg (1,000 unit) tablet 25 mcg PO DAILY Qty: 30 0RF esomeprazole magnesium [Nexium] 40 mg capsule,delayed release(DR/EC) 40 mg PO BEDTIME Qty: 28 0RF Jardiance 25 mg tablet 25 mg PO DAILY Qty: 30 0RF dextromethorphan polistirex [Delsym 12 hour] 30 mg/5 mL suspension,extended rel 12 hr 10 ml PO Q12H PRN (Reason: cough) Qty: 89 0RF fluoride (sodium) [PreviDent 5000 Booster Plus] 1.1 % paste 1 appl DENTAL BID Qty: 100 0RF hydroxyzine pamoate 50 mg capsule 50 mg PO DAILY PRN (Reason: AGITATION/ANXIETY) Triple Antibiotic 3.5-400-5,000 [id number] Ointment In Packet 1 appl TOPICAL BID clonidine HCl 0.1 mg Tablet 0.1 mg PO BEDTIME ibuprofen 800 mg tablet 800 mg PO Q8H PRN (Reason: pain) Qty: 30 0RF risperidone 3 mg tablet 3 mg PO BID divalproex 500 mg tablet extended release 24 hr 1,000 mg PO BID gabapentin 100 mg capsule 300 mg PO BID guaifenesin [Siltussin SA] 100 mg/5 mL Liquid 200 mg PO Q4H PRN (Reason: Cough) albuterol sulfate 90 mcg/actuation Hfa Aerosol Inhaler 2 puff INHALATION Q6H PRN (Reason: Wheezing) ondansetron 4 mg Tablet,Disintegrating 4 mg PO Q6H PRN (Reason: Nausea And Vomiting) sennosides [senna] 8.6 mg Tablet 17.2 mg PO DAILY PRN (Reason: Constipation) bismuth subsalicylate [Pepto-Bismol] 262 mg/15 mL suspension 524 mg PO QID PRN (Reason: diarrhea) 7 Days Qty: 1200 0RF lactase [Lactaid] 3,000 unit tablet 3,000 unit PO TIDWM PRN (Reason: Lactose Intolerance) Qty: 30 11RF Rx Instructions: take at the start of drinking milk only acetaminophen 325 mg tablet 650 mg PO Q4H PRN (Reason: fever or pain) 90 Days Qty: 180 2RF (DME) alvarez.stocking,knee,reg,xlrg Misc See Rx Instructions .Route Qty: 12 0RF Rx Instructions: As directed 10-20 mm HG (DME) Prodigy No Coding Strip See Rx Instructions .Route Qty: 100 11RF Rx Instructions: As directed 2 times per day (DME) lancing device [Prodigy Lancing Device] Misc See Rx Instructions .Route Qty: 1 0RF Rx Instructions: As directed (DME) lancets [Prodigy Lancets] 28 gauge misc See Rx Instructions .Route Qty: 200 3RF Rx Instructions: As directed check BS twice a day (DME) blood-glucose meter [OneTouch Ultra2 Meter] Misc See Rx Instructions .Route Qty: 1 0RF Rx Instructions: test once daily valacyclovir [Valtrex] 1 gram tablet 1,000 mg PO TID Qty: 21 0RF ibuprofen 600 mg tablet 600 mg PO Q6-8H PRN (Reason: pain) Qty: 20 0RF lidocaine 5 % adhesive patch,medicated 1 patch topical DAILY PRN (Reason: pain) Qty: 15 0RF Rx Instructions: leave on most painful area for 4-5 hours. Print Language: Tristanian
[2024-10-13 18:46] VITALS: BP 124/72; PULSE 79; O2SAT 97
[2024-10-13 19:03] VITALS: BP 109/62; PULSE 78; RESP 18; TEMP 36.6; O2SAT 100; BMI 36.7
[2024-10-13] MEDS: Acetaminophen 325 MG TABLET 650 MG PO (19:15)
[2024-10-13 23:50] VITALS: BP 109/62; PULSE 78; RESP 18; TEMP 36.6; O2SAT 100
== END 2024-10-13 23:52 | disposition home or self-care (01) ==
PROVIDERS: Emergency Provider Emergency Medicine Emergency Medical Services
DX: H92.01 Otalgia, right ear (principal); M25.511 Pain in right shoulder; R51.9 Headache, unspecified; E11.9 Type 2 diabetes mellitus without complications; I10 Essential (primary) hypertension; E78.5 Hyperlipidemia, unspecified; I48.91 Unspecified atrial fibrillation; J45.909 Unspecified asthma, uncomplicated
CPT/HCPCS: 70450; 72100; 72125; 73030; 99283; 99284

== ENCOUNTER → 2024-10-21 15:24 | Outpatient (BNVA) | payer MEDICARE, MEDICAID, SELFPAY | PROVIDERS: PCP Internal Medicine ==

== ENCOUNTER 2024-11-12 09:02 | Outpatient (AMB) | payer MEDICARE, MEDICAID, SELFPAY ==
--- NOTE | 2024-11-12 09:03 | A.OFFPC_ITS ---
Vital Signs 11/12/24 09:06 Height 5 ft 5 in Weight 221 lb 8 oz BMI 36.9 BP 130/70 Blood Pressure Location Lt brachial Position Sitting Pulse 78 Pulse Source Pulse Oximeter Pulse Oximetry (%) 93 Oxygen Delivery Method Room Air Intake Visit Reasons: [facility] 10/13 RT Shoulder and back pain Intake Note: Patient is here to follow-up after a visit the emergency department at [facility] on 12/14/23 Metal Reclamation Kettle Tender Required: No Criminal Intelligence Analyst: Not Required per policy Accompanied by: Self / Same As Patient Allergies Sulfa (Sulfonamide Antibiotics) Allergy (Severe, Verified 11/12/24 09:05) CHAVEZ ALICIA REACTION trimethoprim Allergy (Mild, Verified 11/12/24 09:05) UNKNOWN lactose Adverse Reaction (Mild, Verified 11/12/24 09:05) STOMACH UPSET Medication List - Last Reconciled 11/12/24 by Tayler Holt PA-C acetaminophen 650 mg (2 x 325 mg) PO Q4H PRN 90 days albuterol sulfate 90 mcg/actuation 2 puffs inhalation Q6H PRN [[id number] As directed] atorvastatin 10 mg PO BEDTIME [Bilateral custom AFO As directed] bismuth subsalicylate (Pepto-Bismol) 524 mg (30 mL) PO QID PRN 7 days blood sugar diagnostic (COGEON No Coding strips) As directed 2 times per day blood-glucose meter (OctoplusTouch Ultra2 Meter) test once daily blood-glucose meter (COGEON Autocode Blood Glucose Monitoring System) As directed cholecalciferol (vitamin D3) 25 mcg PO DAILY clonidine HCl 0.1 mg PO BEDTIME [email or web address],knee,reg,xlrg As directed 10-20 mm HG cyanocobalamin (vitamin B-12) 1,000 mcg PO BEDTIME dextromethorphan polistirex ER (Delsym 12 hour) 10 mL PO Q12H PRN divalproex ER 1,000 mg PO BID empagliflozin (Jardiance) 25 mg PO DAILY esomeprazole magnesium (Nexium) 40 mg PO BEDTIME ferrous sulfate 325 mg PO BID fluoride (sodium) 1.1% (PreviDent 5000 Booster Plus) 1 appl dental BID fluticasone furoate-vilanterol 200-25 mcg/dose (Breo Ellipta) 1 inh inhalation DAILY fluticasone propionate 50 mcg/actuation (Flonase Allergy Relief) 1 spray intranasal BID gabapentin 300 mg PO BID guaifenesin (Siltussin SA) 200 mg PO Q4H PRN [Heat Moldable shoe inserts As directed] hydralazine 50 mg PO TID hydroxyzine pamoate 50 mg PO DAILY PRN ibuprofen 800 mg PO Q8H PRN ibuprofen 600 mg PO Q6-8H PRN lactase (Lactaid) 3,000 units PO TIDWM PRN lancets (COGEON Lancets) As directed check BS twice a day lancets (EarLens UltraSoft 2 Lancet) test once daily lancing device (COGEON Lancing Device) As directed lidocaine 5% 1 patch topical DAILY PRN metformin 500 mg PO BID methylcellulose (laxative) (Citrucel) 1,000 mg (2 x 500 mg) PO DAILY 30 days lszpagoo-zmqspreqpVe-azbkotxhI 3.5-400-5,000 el-dbkc-wwye (Triple Antibiotic) 1 appl topical BID nystatin 1 appl topical TID PRN ondansetron 4 mg PO Q6H PRN propranolol 20 mg PO TID@0800,1600,2000 90 days risperidone 3 mg PO BID sennosides (senna) 17.2 mg PO DAILY PRN starch (thickening) (Diafoods Thick-It oral powder) Add thick it powder to food and beverage using enclosed measuring spoon TID 30 days valacyclovir 1,000 mg PO TID valacyclovir (Valtrex) 1,000 mg PO TID Tobacco use date assessed: 11/12/24 Dental Screening Dental Screen Date: 11/12/24 Did you have a dental visit in the last 12 months?: Yes Did you have a dental problem in the last 6 months where you did not have access to dental care?: No Was dental information given to patient?: Patient has dentist HPI [facility] 10/13 RT Shoulder and back pain HPI Details 54-year-old obese male with mental behav ioral problem has cerebellar a taxia diabetes mellitus hypercholesterolemia hypertension asthma and atrial flutter coming in for hospital follow up. In review of the notes patient was seen in [facility] ED 10/13/2024 ear pain and shoulder pain.?Patient found to have reactivation of herpes zoster to his right outer ear.?CT of head and neck was normal and x-ray of the shoulder and back showed arthritis. He was treated with prednisone and valacyclovir severe for shingles advised to follow up with PCP.?Patient was also seen [facility] ED 10/25/2024 for voicing suicidal ideation stable and discharged home. Patient states he has been feeling much better he still does occasionally have pain and itchiness along the rash area but the rash is mostly resolved. He does not use anything for his pain or itchiness. His shoulder pain has significantly improved and is no longer having any pain. No other concerns today. [facility] Medical History Feeling suicidal Tinea cruris Leg swelling Atrial flutter Atrial fib/flutter, transient A-fib Arrhythmia Abnormal EKG Contusion of left ankle Annual physical exam Abdominal pain Back pain Positive colorectal cancer screening using Cologuard test Precordial chest pain Hospital discharge follow-up Chest pain Right ankle pain Musculoskeletal chest pain Left-sided chest pain Back pain Fall Dysphagia Acute kidney injury Gait instability Suicidal ideation COVID-19 Hypomagnesemia Diarrhea Abdominal pain Ankle pain, left Left ankle sprain Seizure disorder Hypertension Anxiety Hyponatremia Cerebellar ataxia Anemia Lactose intolerance Vertigo Asthma Mental disability Type 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 Proteinuria Hyperlipidemia LDL goal <100 Essential hypertension Surgical History Hx of surgical procedure (07/22/24) Hx of colonoscopy History of orchiectomy Family History Father Myocardial infarction CVD (cardiovascular disease) Diabetes mellitus Mother Diabetes mellitus HTN (hypertension) Brother In good health Sister In good health Social History Household Members: Other Household Members Other:: from senior care Housing: House Housing Other:: senior care [address] Esteban [phone] Do you presently have visiting nurse or other home services: Yes 75 years or older and lives alone: No Unable to assess alcohol history related to: Unknown Alcohol intake: never 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 Patient Tobacco Use Status: Never used Tobacco e-Cigarette/Vaping Use: Never Used Second Hand Smoke Exposure: No Advance Directives Date on File: 05/23/21 service: No Current occupational status: disabled Cognitive needs: Yes (walker) Hearing needs: No Vision needs: Yes (glasses) Questionnaire PHQ-9 Over the last 2 weeks, how often have you been bothered by any of the following problems? 1. Little interest or pleasure in doing things: not at all 2. Feeling down, depressed, or hopeless: not at all 3. Trouble falling or staying asleep, or sleeping too much: not at all 4. Feeling tired or having little energy: not at all 5. Poor appetite or overeating: not at all 6. Feeling bad about yourself - or that you are a failure or have let yourself or your family down: not at all 7. Trouble concentrating on things, such as reading the newspaper or watching television: not at all 8. Moving or speaking so slowly that other people could have noticed. Or the opposite - being so fidgety or restless that you have been moving around a lot more than usual: not at all 9. Thoughts that you would be better off or of hurting yourself in some way: not at all Total score: 0 Depression Screening Interpretation: Negative Depression Screening Done: Yes 77977 - PHQ-9 Billing: Yes Source: Developed by Drs. Wellington López, Monica Jackson, Ray Nguyen and colleagues, with an educational perez from [employer]. Thrive Questionnaire Date Thrive assessed: 11/12/24 I am a: Patient What is your living situation today?: I have a steady place to live Within the past 12 months, did the food you bought not last and you didn't have the money to get more?: Never true Within the past 12 months, did you worry whether your food would run out before you got money to buy more?: Never true Do you have trouble paying for medicines?: No Do you have trouble getting transportation to medical appointments?: No Do you have trouble paying your heating and electricity bill?: No Do you have trouble taking care of your child, family member or friend?: No Do you have trouble with day-to-day activities such as bathing, preparing meals, shopping, managing finances, etc.?: No Are you currently unemployed and looking for a job?: No Are you interested in more education?: No Currently or been in a relationship where the following occur: No concerns reported THRIVE Score: 0 AUDIT C Alcohol Use Questionnaire (AUDIT-C) 1. How often do you have a drink containing alcohol?: Never Total Score: 0 CHANI-7 AMB Questionnaire CHANI-7 Date CHANI - 7 assessed: 11/12/24 Feeling nervous, anxious, or on edge: 0 = Not at all Not being able to stop or control worryin = Not at all Worrying too much about different things: 0 = Not at all Trouble relaxin = Not at all Being so restless that it is hard to sit still: 0 = Not at all Becoming easily annoyed or irritable: 0 = Not at all Feeling afraid as if something awful might happen: 0 = Not at all Total CHANI-7 score (0-4 normal; 5-9 mild; 10-14 moderate; 15-21 severe): 0 Source: Developed by Drs. Wellington López, Monica Jackson, Ray Nguyen and colleagues, with an educational perez from [employer]. Review of Systems Const Denies body aches, Denies chills, Denies fever(s), Denies headache(s) and Denies poor appetite Eyes Reports no additional complaints ENT Denies dizziness and Denies headache(s) Card Denies chest pain, Denies lightheadedness and Denies dyspnea Resp Denies cough and Denies dyspnea GI Reports no additional complaints Reports no additional complaints Musc Reports no additional complaints and Denies abnormal gait Skin/Breast Reports system reviewed and no additional complaints, except as documented Neuro Denies abnormal gait, Denies dizziness and Denies headache(s) Psych Reports no additional complaints Physical exam (Primary Care) Vital Signs: Last Vital Signs Pulse 78 11/12/24 09:06 BP 130/70 11/12/24 09:06 Pulse Ox 93 11/12/24 09:06 Oxygen Delivery Method Room Air 11/12/24 09:06 BMI result Body Mass Index 36.9 Tobacco/Smoking Status: Tobacco use Status Tobacco use date assessed 11/12/24 11/12/24 09:13 Patient Tobacco Use Status Never used Tobacco 11/12/24 09:04 e-Cigarette/Vaping Use Never Used 11/12/24 09:04 PHQ-9: PHQ-9 Score PHQ-9: Total score 0 11/12/24 09:16 Depression Screening Interpretation: Negative Thrive Assessment: Date of Thrive Assessment Date Thrive assessed 11/12/24 11/12/24 09:04 Currently or been in a relationship where the following occur: No concerns reported Const General: cooperative, healthy appearing, comfortable and no acute distress Orientation/consciousness: patient oriented x3 HENMT Head: Yes normocephalic Ears: hearing grossly normal bilaterally General nose exam: Normal external nose present Eyes General: appearance normal, both eyes and all related structures Conjunctivae: conjunctivae normal Neck Neck: Yes full ROM and Yes no lymphadenopathy Resp Effort & Inspection: normal respiratory effort Auscultation: clear to auscultation bilaterally, no crackles, no rales, no rhonchi and no wheezes Cardio Rate: regular rate Rhythm: regular rhythm Skin Other: No evidence of rash. Areas where patient is describing itchiness and pain there is no rash to correlate. Neuro General: patient oriented x3 Gait exam (Neuro): Normal gait present Extrem General: Yes normal to inspection, Yes full ROM and No edema Psych Affect: normal affect Attitude: cooperative Insight: Good insight present (Psych) Judgement: Good judgement present (Psych) Coding Level of Care Code Est Pt Level 3 (84138) Diagnoses Herpes zoster without complication B02.9 Herpes zoster complications: without complications Right shoulder pain M25.511 Additional Codes PHQ-9 - 77441 - PHQ-9 Billing: Yes ([id number]) Assessment & Plan Assessment & Plan (1) Herpes zoster: Comment: Patient's history coupled with his examination is consistent with herpes zoster. Code(s): B02.9 - Zoster without complications Category: Medical Qualifiers: Herpes zoster complications: without complications Qualified Code(s): B02.9 - Zoster without complications Plan: Continues to have reported pain and itchiness for on the area where the rash previously was. No evidence of rash on exam. Advised patient to use lotion such as Aquaphor Eucerin for itchiness and may use lidocaine patches for pain as needed. Also advised patient to use Tylenol and ibuprofen as needed for pain. (2) Right shoulder pain: Code(s): M25.511 - Pain in right shoulder Category: Medical Plan: Shoulder pain has resolved at this time. Advised patient to follow up as needed for this concern. Plan This note was constructed using voice recognition software. While every effort has been made to ensure accuracy and net sql developer, still areas may have been included sometimes these areas may affect the content or meeting of the given symptoms. Total time spent caring for the patient today was 30 minutes. This includes time spent before the visit reviewing the chart, time spent during the visit, and time spent after the visit and documentation. Medications: Refilled lidocaine 5% leave on most painful area for 4-5 hours. 1 patch topical DAILY PRN 15 ea 0RF pain
[2024-11-12 09:06] VITALS: BP 130/70; PULSE 78; O2SAT 93; BMI 36.9
== END 2024-11-12 09:37 | disposition home or self-care (01) ==
PROVIDERS: PCP Internal Medicine
DX: M25.511 Pain in right shoulder (principal); B02.9 Zoster without complications

== ENCOUNTER 2024-12-21 09:04 | Outpatient (REF) | payer MEDICARE, MEDICAID, SELFPAY ==
--- OUTSIDE RECORDS SUMMARY | 2024-12-21 09:58 | XMS_ITS | Encounter Summary ---
Author Organization [facility] Address [address] [facility] [address] [place] [address] Phone Care Team Providers Care Pin Inserter Regulator Name Role Phone Robert Sumner MD Primary Care Provider [phone] Reason for Visit * Reason Onset Date Comments Med Refill 11/29/2024 Encounter Details Date Type Department Care Team (Late Contact Info) Description 11/29/2024 Refill [facility] [address] [facility] [address] [place] [address] Alda Glass MA [address] [facility] [address] [place] [phone] Social History Tobacco Use Types Packs/Day Years Used Date Smoking Tobacco: Never Smokeless Tobacco: Never Alcohol Use Standard Drinks/Week Comments No 0 (1 standard drink = 0.6 oz pur e alcohol) Sex and Gender Information Value Date Recorded Sex Assigned at Not on file Legal Sex Male 4:47 PM EST Gender Identity Not on file Sexual Orientation Not on file documented as of this encounter Plan of Treatment Upcoming Encounters Date Type Department Care Team (Late Contact Info) Description 12/22/2024 8:45 AM EST Office Visit [facility] [address] [phone] Chana Schrader ARNP [address] [facility] [address] [place] [address] 03/15/2025 1:30 PM EDT Office Visit [facility] [address] [facility] [address] [place] [address] Frantz Luis MD [address] [phone] documented as of this encounter Visit Diagnoses Not on filedocumented in this encounter Care Teams Pin Inserter Regulator Relationship Specialty Start Date End Date Robert Sumner MD [facility] [address] [facility] [address] [place] PCP - General 11/20/20 documented as of this encounter
--- OUTSIDE RECORDS SUMMARY | 2024-12-21 09:58 | XMS_ITS | Encounter Summary ---
Author Organization [facility] Address [address] [phone] Phone Care Team Providers Care Broom Handle Dipper Name Role Phone Robert Sumner MD Primary Care Provider [phone] Encounter Details Date Type Department Care Team (Late Contact Info) Description 11/30/2024 Orders Only [facility] [address] [place] [phone] Frantz Luis MD [address] [phone] Chronic kidney disease, stage 2 (mild) Social History Tobacco Use Types Packs/Day Years [...] Encounters Date Type Department Care Team (Late st Contact Info) Description 12/22/2024 8:45 AM EST Office Visit [facility] [address] [phone] Chana Schrader ARNP [address] [place] [phone] 03/15/2025 1:30 PM EDT [facility] Visit [facility] [address] [address] Frantz Luis MD [address] [facility] [address] [place] [phone] documented as of this encounter Visit Diagnoses Diagnosis Chronic kidney disease, stage 2 (mild) documented in this encounter Care Teams Broom Handle Dipper Relationship Specialty Start Date End Date Robert Sumner MD [facility] [address] [facility] [address] [address] [address] [place], [place] PCP - General 11/20/20 documented as of this encounter
--- OUTSIDE RECORDS SUMMARY | 2024-12-21 09:58 | XMS_ITS | Clinical Summary ---
Author Organization [facility] Address [address] [place] [phone] Phone Care Team Providers Care Guest House Manager Name Role Phone Robert Sumner MD Primary Care Provider [phone] Allergies Active Allergy Reactions Criticality Noted Date Comments Lactose 04/26/2022 intolerance Sulfa Antibiotics Other (see comments),Hives Medications acetaminophen (TYLENOL 8 HOUR) 650 MG 8 hr tablet Take 1 tablet by mouth every 4 (four) hours Active albuterol HFA (Ventolin HFA) 108 (90 Base) MCG/ACT inhaler Acti ve aspirin (ST DARWIN) 81 MG EC tablet Take 1 tablet by mouth 1 (one) time each day Active atorvastatin (LIPITOR) 10 MG tablet Take 1 tablet by mouth 1 (one) time each day Active cholecalciferol (VITAMIN D-3) 25 MCG (1000 UT) capsule Take 1 capsule by mouth 1 (one) time each day Active cyanocobalamin (VITAMIN B-12) 1000 MCG tablet Take 1 tablet by mouth 1 (one) time each day Active divalproex (Depakote) 500 MG EC tablet Take 2 tablets by mouth 2 (two) times a day Active fluticasone-stephani meterol (Advair Diskus) 250-50 MCG/DOSE diskus inhaler Inhale 1 puff 2 (two) times a day Active gabapentin (Neurontin) 100 MG capsule Take 2 capsules by mouth 2 (two) times a day Active hydrALAZINE (APRESOLINE) 50 MG tablet Take 1 tablet by mouth 2 (two) times a day Active lactase (Lactaid) 3000 units tablet Take 1 tablet by mouth 3 (three) times a day Active propranolol (INDERAL) 20 MG tablet Take 1 tablet by mouth 3 (three) times a day Active risperiDONE (RisperDAL) 3 MG tablet Take 1 tablet by mouth 2 (two) times a day Active ferrous sulfate 325 (65 Fe) MG tablet Take 325 mg by mouth twice a day Active fluticasone (FLONASE) 50 MCG/ACT nasal spray Administer 1 spray into each nostril 1 (one) time each day Active simethicone (MYLICON) 125 MG chewable tablet Chew 125 mg every 6 (six) hours if needed for flatulence Active Methylcellulose , Laxative, (CITRUCEL PO) Take 500 mg by mouth 1 (one) time each day in the morning Active Sodium Fluoride (PREVIDENT 5000 BOOSTER PLUS DT) Apply to teeth twice a day Active Jardiance 25 MG tablet 4 Active loperamide (IMODIUM) 2 MG capsule 4 Active lisinopril 20 MG tablet Take 20 mg by mouth 2 Active hydrOXYzine (VISTARIL) 50 MG capsule 4 Active esomeprazole (NexIUM) [address] capsule Take 40 mg by mouth 1 (one) time each day before breakfast 4 Active cloNIDine (CATAPRES) 0.1 MG tablet Take 0.1 mg by mouth in the morning and 0.1 mg in the evening. Active Active Problems Problem Noted Date Diagnosed Date Leg swelling symptom 10/23/2023 Ankle pain 10/23/2023 Gastroesophageal reflux disease 10/23/2023 Pancytopenia 10/23/2023 Dysphagia 10/23/2023 Mental and behavioral problems with communicatio n 10/23/2023 Helicobacter pylori (H. pylori) 10/23/2023 Schizophrenia 10/23/2023 Type 2 diabetes mellitus with hyperglycemia 10/10 Asthma 10/23/2023 Cerebellar ataxia 10/23/2023 Proteinuria 10/23/2023 Anemia 11/19/2022 Hypertensive disorder 11/19/2022 Hyponatremia 11/19/2022 Hyperlipidemia 11/19/2022 Diabetes mellitus 11/19/2022 Cobalamin deficiency 11/19/2022 Obese class II 04/26/2022 Hypertension 09/14/2021 Benign essential hypertension 01/03/2021 Hypo-osmolality and hyponatremia 01/03/2021 Encounters Date Type Department Care Team Description 11/30/2024 Orders Only [facility] [address] [phone] Frantz Luis MD Chronic kidney disease, stage 2 (mild) 11/29/2024 Refill [facility] [address] [phone] Alda Galss MA from Last 3 Months Family History Medical History Relation Comments Diabetes Father Heart disease Father Hypertension Father Diabetes Mother Heart disease Mother Hypertension Mother Relation Status Comments Father Mother Social History Tobacco Use Types Packs/Day Years Used Date Smoking Tobacco: Never Smokeless Tobacco: Never Tobacco Cessation:Counseling Given: Not Answered Alcohol Use Standard Drinks/Week Comments No 0 (1 standard drink = 0.6 oz pur e alcohol) Sex and Gender Information Value Date Recorded Sex Assigned at Not on file Legal Sex Male 4:47 PM EST Gender Identity Not on file Sexual Orientation Not on file Last Filed Vital Signs Vital Sign Reading Time Taken Comments Blood Pressure 150/86 08/30/2024 2:07 PM EDT Pulse 83 08/30/2024 2:07 PM EDT Temperature - - Respiratory Rate - - Oxygen Saturation 98% 08/30/2024 2:07 PM EDT Inhaled Oxygen Concentration - - Weight 102 kg (225 lb 3.2 oz) 08/30/2024 2:07 PM EDT Height 165.1 cm (5' 5 ) 05/31/2024 3:28 PM EDT Body Mass Index 37.48 05/31/2024 3:28 PM EDT Plan of Treatment Upcoming Encounters Date Type Department Care Team (Late st Contact Info) Description 12/22/2024 8:45 AM EST Office Visit [facility] [address] [phone] Chana Schrader ARNP [address] [place] [phone] 03/15/2025 1:30 PM EDT Office Visit [facility] [address] [phone] Frantz Luis MD [address] [facility] [address] [place] [address] Health Maintenance Due Date Last Done Comments Pneumococcal Vaccine: Pediat rics (0 to 5 Years) and At-Risk Patients (6 to 64 Years) (1 of 2 - PCV) 1977 Hepatitis B Vaccine (1 of 3 - 19+ 3-dose series) 08/22 Colorectal Cancer Screening: Annual FOBT 2020 Colorectal Cancer Screening: Colonoscopy 2020 Colorectal Cancer Screening: Sigmoidoscopy 2020 Diabetes: Hemoglobin A1C 10/23/2023 Diabetes: Ophthalmology Exam 10/23/2023 Diabetes: Pedal Pulse Checked 10/23/2023 Diabetes: Sensory Foot Exam 10/23/2023 Diabetes: Visual Foot Exam 10/23/2023 Influenza Vaccine (#1) 2024 Procedures Procedure Name Priority Date/Time Associated Diagnosis Comments EXT RESULT ENTRY Routine 10/25/2024 from Last 3 Months Results * (ABNORMAL) EXT RESULT ENTRY (10/25/2024) Hemoglobin 11.2(A) 13.5 - 17.5 Hematocrit 33.7(A) 41.0 - 53.0 Platelets 113(A) 150 - 399 10*3/UL Sodium 140 137 - 147 Potassium 3.8 3.4 - 5.5 Carbon Dioxide 25 mmol/L BUN 15 4 - 21 mg/dL Creatinine 0.87 0.60 - 1.30 mg/dL Calcium 8.8 8.7 - 10.7 mg/dL eGFR Non-Afr Azerbaijani 103 10/25/2024 us Historical Provider LAB BLOOD ORDERABLES Savannah l Result from Last 3 Months Insurance [place] Care Teams Guest House Manager Relationship Specialty Start Date End Date Robert Sumner MD [address] [place], [place] PCP - General 11/20/20
--- OUTSIDE RECORDS SUMMARY | 2024-12-21 09:58 | XMS_ITS | Clinical Summary ---
Author Organization [facility] Address [address] [place] [address] Phone Care Team Providers Care Bad Work Gatherer Name Role Phone Robert Sumner MD Primary Care Provider [phone] Social History Tobacco Use Types Packs/Day Years Used Date Smoking Tobacco: Never Assessed Sex and Gender Information Value Date Recorded Sex Assigned at Not on file Legal Sex Male 6:34 PM EST Gender Identity Not on file Sexual Orientation Not on file Plan of Treatment Upcoming Encounters Date Type Department Care Team ([facility] Contact Info) Description 12/29/2024 10:15 AM EST Office Visit Orthopedic Surgery [place] [address] [phone] Jose Bonds, DPM [address] [address] Health Maintenance Due Date Last Done Comments DTaP,Tdap,and Td Vaccines (1 - Tdap) 1978 Hepatitis B Vaccines (1 of 3 - 19+ 3-dose series) 1990 Pneumococcal Vaccine: 50+ Ye ars (1 of 1 - PCV) 2021 Zoster Vaccines (1 of 2) 2021 Cholesterol Screening (Lipid Panel) 10/12/2022 Colorectal Cancer Screening: Colonoscopy 10/12/2022 Depression Screening 10/12/2022 HIV Screening 10/12/2022 Hepatitis C Screening 10/12/2022 Medicare Annual Wellness Visit 10/12/2022 Social Influencers of Health Screening 10/12/2022 COVID-19 Vaccine ( - 2023-2 5 season) 2024 Influenza Vaccine (#1) 2024 HIB Vaccines Aged Out No longer eligi ble based on patient's age to complete this topic HPV Vaccines Aged Out No longer eligi ble based on patient's age to complete this topic Hepatitis A Vaccines Aged Out No long er eligible based on patient's age to complete this topic IPV Vaccines Aged Out No longer eligi ble based on patient's age to complete this topic MMR Vaccines Aged Out No longer eligi ble based on patient's age to complete this topic Meningococcal ACWY Vaccine Aged Out N o longer eligible based on patient's age to complete this topic Meningococcal B Vacine Aged Out No lo nger eligible based on patient's age to complete this topic Pneumococcal Vaccine: Pediat rics (0 to 5 Years) and At-Risk Patients (6 to 64 Years) Aged Out No longer eligible b ased on patient's age to complete this topic RSV Immunization Patients Un sydni 20 months Aged Out No longer eligible b ased on patient's age to complete this topic Varicella Vaccines Aged Out No longer eligible based on patient's age to complete this topic Insurance MEDICARE MEDICAID - [place] Advance Directives Documents on File Type Date Recorded Patient Lactation Specialist Expl anation Health Care Decision (hx) 12/11/2020 AD VELASQUEZ DIRECTIVE Health Care Decision (hx) 12/11/2020 AD VELASQUEZ DIRECTIVE Health Care Decision (hx) 12/11/2020 AD VELASQUEZ DIRECTIVE Health Care Decision (hx) 12/11/2020 AD VELASQUEZ DIRECTIVE Care Teams Bad Work Gatherer Relationship Specialty Start Date End Date Robert Sumner MD [address] [place] [address] [address] [facility] [place] [address] PCP - General Internal Medicine 09/24/24
[2024-12-21 10:41] LABS: Alanine Aminotransferase 19 U/L (0-40); Albumin Level 3.8 g/dL (3.5-5.0); Alkaline Phosphatase 70 U/L (39-117); Aspartate Amino Transferase 21 U/L (5-37); Bilirubin Direct 0.1 mg/dL (0.0-0.5); Bilirubin Total 0.3 mg/dL (0.0-1.0); Total Protein 7.1 g/dL (6.5-8.0)
== END 2024-12-21 09:05 | disposition home or self-care (01) ==
LOC: HO.HMGCLDS 09:04
PROVIDERS: PCP Internal Medicine; Visit Provider General Practice
DX: F06.34 Mood disorder due to known physiological condition with mixed features (principal); Z79.899 Other long term (current) drug therapy
CPT/HCPCS: 36415; 80076; 80164

== ENCOUNTER → 2024-12-24 10:45 | Outpatient (BNVA) | payer MEDICARE, MEDICAID, SELFPAY | PROVIDERS: PCP Internal Medicine; Visit Provider Internal Medicine | DX: Z23 Encounter for immunization (principal); B02.9 Zoster without complications; E11.65 Type 2 diabetes mellitus with hyperglycemia; K21.9 Gastro-esophageal reflux disease without esophagitis; I10 Essential (primary) hypertension; E78.5 Hyperlipidemia, unspecified; G11.9 Hereditary ataxia, unspecified; F20.9 Schizophrenia, unspecified | CPT/HCPCS: 83036; 90471; 90656; 96127; 99212 ==

== ENCOUNTER 2024-12-24 12:31 | Outpatient (AMB) | payer MEDICARE, MEDICAID, SELFPAY ==
[2024-12-24 12:44] VITALS: BP 110/72; PULSE 80; O2SAT 98; BMI 37.8
--- NOTE | 2024-12-24 12:44 | A.OFFPC_ITS ---
Vital Signs 12/24/24 12:44 12/24/24 13:13 Height 5 ft 5 in Weight 227 lb BMI 37.8 BP 110/72 120/60 Blood Pressure Location Lt brachial Lt brachial Position Sitting Sitting Pulse 80 Pulse Source Pulse Oximeter Pulse Oximetry (%) 98 Oxygen Delivery Method Room Air Intake Visit Reasons: med management Allergies Sulfa (Sulfonamide Antibiotics) Allergy (Severe, Verified 12/24/24 12:45) CHAVEZ ALICIA REACTION trimethoprim Allergy (Mild, Verified 12/24/24 12:45) UNKNOWN lactose Adverse Reaction (Mild, Verified 12/24/24 12:45) STOMACH UPSET Tobacco use date assessed: 11/12/24 Dental Screening Dental Screen Date: 11/12/24 HPI med management HPI Details The patient is a 54-year-old male presenting with follow-up for Type 2 Diabetes Mellitus and Essential Hypertension. The patient's Hemoglobin A1c is 5.8%, indicating good glycemic control. Blood glucose levels have been fluctuating, with a recent morning measurement at 200 mg/dL, indicating int ermittent hyperglycemia. The management plan includes monitoring to prevent excessively low blood glucose levels, defined as below 100 mg/dL. Currently, blood pressure remains well-controlled, with no recent issues reported. The patient also reports concerns regarding peripheral edema, previously managed with compression stockings, which have not been used recently due to a decrease in symptoms. There is no significant new swelling. The patient had Lisinopril discontinued, which may have been related to earlier low blood pressure readings, though its use was recommended as part of renal protection in diabetes management. Current kidney function is stable, and no ongoing issues have been noted. The patient experiences foot drop, for which Ankle-Foot Orthoses (AFOs) have been considered. Previous footwear, including sneakers, has been inadequate, causing uneven walking. The patient awaits evaluation by a communication equipment repairer for appropriate footwear and orthotic support. In terms of medication management, the patient has been incorrectly receiving Metformin from the pharmacy but needs clarification on prescriptions, including Lisinopril re-initiation for renal protection. Additionally, there is concern about the use of non-prescribed Motrin, with a focus on its avoidance due to gastrointestinal risks. Weight management has been challenging. [facility] Medical History Feeling suicidal Tinea cruris Leg swelling Atrial flutter Atrial fib/flutter, transient A-fib Arrhythmia Abnormal EKG Contusion of left ankle Annual physical exam Abdominal pain Back pain Positive colorectal cancer screening using Cologuard test Precordial chest pain Hospital discharge follow-up Chest pain Right ankle pain Musculoskeletal chest pain Left-sided chest pain Back pain Fall Dysphagia Acute kidney injury Gait instability Suicidal ideation COVID-19 Hypomagnesemia Diarrhea Abdominal pain Ankle pain, left Left ankle sprain Seizure disorder Hypertension Anxiety Hyponatremia Cerebellar ataxia Anemia Lactose intolerance Vertigo Asthma Mental disability Type 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 Proteinuria Hyperlipidemia LDL goal <100 Essential hypertension Surgical History Hx of surgical procedure (07/22/24) Hx of colonoscopy History of orchiectomy Family History Father Myocardial infarction CVD (cardiovascular disease) Diabetes mellitus Mother Diabetes mellitus HTN (hypertension) Brother In good health Sister In good health Social History Household Members: Other Household Members Other:: from penitentiary Housing: House Housing Other:: penitentiary [facility] [address] [place] [phone] Do you presently have visiting nurse or other home services: Yes 75 years or older and lives alone: No Unable to assess alcohol history related to: Unknown Alcohol intake: never 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 Patient Tobacco Use Status: Never used Tobacco Tobacco use type: Cigarette e-Cigarette/Vaping Use: Never Used Second Hand Smoke Exposure: No Advance Directives Date on File: 05/23/21 service: No Current occupational status: disabled Cognitive needs: Yes (walker) Hearing needs: No Vision needs: Yes (glasses) Questionnaire PHQ-9 Over the last 2 weeks, how often have you been bothered by any of the following problems? 1. Little interest or pleasure in doing things: not at all 2. Feeling down, depressed, or hopeless: not at all 3. Trouble falling or staying asleep, or sleeping too much: not at all 4. Feeling tired or having little energy: not at all 5. Poor appetite or overeating: not at all 6. Feeling bad about yourself - or that you are a failure or have let yourself or your family down: not at all 7. Trouble concentrating on things, such as reading the newspaper or watching television: not at all 8. Moving or speaking so slowly that other people could have noticed. Or the opposite - being so fidgety or restless that you have been moving around a lot more than usual: not at all 9. Thoughts that you would be better off or of hurting yourself in some way: not at all Total score: 0 Depression Screening Interpretation: Negative Depression Screening Done: Yes 43225 - PHQ-9 Billing: Yes Source: Developed by Drs. Wellington López, Monica Jackson, Ray Nguyen and colleagues, with an educational perez from [employer]. Thrive Questionnaire Date Thrive assessed: 11/12/24 CHANI-7 AMB Questionnaire CHANI-7 Date CHANI - 7 assessed: 11/12/24 Source: Developed by Drs. Wellington López, Monica Jackson, Ray Nguyen and colleagues, with an educational perez from [employer]. Physical exam (Primary Care) Vital Signs: Last Vital Signs Pulse 80 12/24/24 12:44 BP 120/60 12/24/24 13:13 Pulse Ox 98 12/24/24 12:44 Oxygen Delivery Method Room Air 12/24/24 12:44 BMI result Body Mass Index 37.8 Tobacco/Smoking Status: Tobacco use Status Tobacco use date assessed 11/12/24 12/24/24 12:53 Patient Tobacco Use Status Never used Tobacco 12/24/24 12:53 Tobacco use type Cigarette 12/24/24 12:53 e-Cigarette/Vaping Use Never Used 12/24/24 12:53 PHQ-9: PHQ-9 Score PHQ-9: Total score 0 12/24/24 12:59 Depression Screening Interpretation: Negative Thrive Assessment: Date of Thrive Assessment Date Thrive assessed 11/12/24 12/24/24 12:53 Const General: alert; No acute distress Eyes Conjunctivae: conjunctivae normal Resp Auscultation: clear to auscultation bilaterally Cardio Rate: regular rate Rhythm: regular rhythm GI Inspection: Yes normal to inspection Extrem General: Yes normal to inspection and No edema Office Procedures Flu Questionnaire Does the patient have a severe egg allergy?: No Does the patient have severe life threatening allergies?: No Does the patient have a fever or illness today?: No Has the patient ever had Guillain-Leo Syndrome?: No Has the patient ever had any past reaction to a flu shot?: No Results AMB Hemoglobin A1c AMB Hemoglobin A1c 5.8 % Last Edit by Dee Gr CMA on 12/24/24 13 :00 Immunizations Fluarix Triv 8811-6009 (PF) 45 mcg (15 mcg x 3)/0.5 mL IM syringe Performing Provider: Robert Sumner MD [facility] Administered by: Dee Gr CMA on 12/24/24 13:25 Dose Route Admin Location Dispensed Lot Number Expiration Date NDC Brush [employer]room Clipper 0.5 mL IM Left Deltoid 0.5 mL [id number] 05/09/25 [id number] Mashed Pixel VIS Given Date VIS Provided VIS Publication Date 12/24/24 Single Vaccine 21 Eligibility Eligibility Date Funding Source Not [facility] Eligible 12/24/24 Private Results Reviewed Results Reviewed: Laboratory Last Values Hgb A1c (Clinic) 5.8 % (4.0-6.0) 12/24/24 12:44 Coding Level of Care Code Est Pt Level 4 (97041) Complex EM visit Add On G2211 Diagnoses Herpes zoster without complication B02.9 Herpes zoster complications: without complications Type 2 diabetes mellitus with hyperglycemia E11.65 Gastroesophageal reflux disease, unspecified whether esophagitis present K21.9 Esophagitis presence: esophagitis presence not specified Essential hypertension I10 Hyperlipidemia LDL goal <100 E78.5 Cerebellar ataxia G11.9 Schizophrenia F20.9 Additional Codes PHQ-9 - 10492 - PHQ-9 Billing: Yes ([id number]) Assessment & Plan Assessment & Plan (1) Herpes zoster: Comment: Patient's history coupled with his examination is consistent with herpes zoster. August 2024 Code(s): B02.9 - Zoster without complications Category: Medical Qualifiers: Herpes zoster complications: without complications Qualified Code(s): B02.9 - Zoster without complications (2) Type 2 diabetes mellitus with hyperglycemia: Code(s): E11.65 - Type 2 diabetes mellitus with hyperglycemia Category: Medical Plan: Decrease the amount of carbohydrate intake, pasta, bread, rice and potatoes are all sugar and that is aside from all the sweet stuff, remember that fruits are good but they are Sweet also. Hemoglobin A1c goal of less than 6.5. Patient takes Jardiance 25 mg once a day and metformin 500 mg twice a day (3) GERD (gastroesophageal reflux disease): Code(s): K21.9 - Gastro-esophageal reflux disease without esophagitis Category: Medical Qualifiers: Esophagitis presence: esophagitis presence not specified Qualified Code(s): K21.9 - Gastro-esophageal reflux disease without esophagitis (4) Essential hypertension: Code(s): I10 - Essential (primary) hypertension Category: Medical Plan: Continue with blood pressure medication. Decrease salt intake and exercise hydralazine 50 mg 3 times a day propranolol 20 mg 3 times a day (5) Hyperlipidemia LDL goal <100: Code(s): E78.5 - Hyperlipidemia, unspecified Category: Medical Plan: Avoid fried foods, chicken skin, eggs, butter margarine, pastries and meat. Be it pork or beef they have a lot of cholesterol LDL goal of less than 100 and triglyceride of less than 150 patient on atorvastatin 10 mg once a day (6) Cerebellar ataxia: Code(s): G11.9 - Hereditary ataxia, unspecified Category: Medical Plan: Continue with keeping active (7) Schizophrenia: Code(s): F20.9 - Schizophrenia, unspecified Category: Medical Plan: With psychiatry Plan - -- Continue monitoring blood glucose levels closely to ensure they remain stable and within the desired range. - Reinitiate Lisinopril at a low dose as renal protection for the patient with diabetes while ensuring blood pressure remains controlled. - Coordinate with the communication equipment repairer for the assessment and fitting of Ankle-Foot Orthoses AFOs) to address foot drop and facilitate proper footwear. - Reinforce the importance of using compression stockings on an as-needed basis to manage peripheral edema effectively. - Discontinue the unintended prescription of Metformin; confirm and update the patient's medication list with the pharmacy. - Advise against the use of Motrin due to the potential for gastrointestinal complications; acetaminophen is appropriate for managing pain if necessary. - Encourage lifestyle modifications aimed at weight reduction to improve overall health outcomes and consider therapeutic interventions for weight management, given insurance coverage allowances. Patient was informed and verbally consented to the use of an ambient scribe for clinic note documentation during this visit. Orders: Orders AMB Hemoglobin A1c Today Z13.9 - Encounter for screening, unspecified Medications: New lisinopril 5 mg PO DAILY 30 tabs 8RF E11.65 - Type 2 diabetes mellitus with hyperglycemia Discontinued ibuprofen Discontinued Reason: Doctor's Order 800 mg PO Q8H PRN 30 tabs 0RF pain ibuprofen Discontinued Reason: Patient Completed Course 600 mg PO Q6-8H PRN 20 tabs 0RF pain metformin Discontinued Reason: Patient Completed Course 500 mg PO BID 180 tabs 0RF E11.29 - Type 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
--- OUTSIDE RECORDS SUMMARY | 2024-12-24 12:56 | XMS_ITS | Encounter Summary ---
Author Organization [facility] Address [address] [facility] [place] [address] Phone Care Team Providers Care Mash Filter Press Operator Name Role Phone Robert Sumner MD Primary Care Provider [phone] Reason for Visit * Reason Onset Date Comments Med Refill 11/29/2024 Encounter Details Date Type Department Care Team (Late Contact Info) Description 11/29/2024 Refill [facility] [address] [facility] [facility] [address] [place] [address] Alda Glass MA [address] [facility] [address] [place] [id number] Social History Tobacco Use Types Packs/Day Years [...] Department Care Team (Late Contact Info) Description 06/21/2025 1:00 PM EDT Office Visit [facility] [address] [facility] [facility] [address] [place] [address] Frantz Luis MD [address] [facility] [facility] [address] [place] [address] documented as of this encounter Visit Diagnoses Not on filedocumented in this encounter Care Teams Mash Filter Press Operator Relationship Specialty Start Date End Date Robert Sumner MD [facility] [place] [address] [place] PCP - General 11/20/20 documented as of this encounter
--- OUTSIDE RECORDS SUMMARY | 2024-12-24 12:56 | XMS_ITS | Encounter Summary ---
Author Organization [facility] Address [address] [address] Phone Care Team Providers Care Ms Access Database Developer Name Role Phone Robert Sumner MD Primary Care Provider [phone] Reason for Visit * Reason Comments Chronic Kidney Disease Encounter Details Date Type Department Care Team ([facility] st Contact Info) Description 12/22/2024 8:45 AM EST Office Visit [facility] [address] [phone] Chana Schrader ARNP [address] [phone] Chronic kidney disease, stage 2 (mild) (Primary Dx); Hyponatremia; Hypertension Social History Tobacco Use Types Packs/Day Years [...] on file documented as of this encounter Last Filed Vital Signs Vital Sign Reading Time Taken Comments Blood Pressure 120/80 12/22/2024 9:02 AM EST Pulse 79 12/22/2024 9:02 AM EST Temperature - - Respiratory Rate - - Oxygen Saturation 98% 12/22/2024 9:02 AM EST Inhaled Oxygen Concentration - - Weight - - Height - - Body Mass Index - - documented in this encounter Progress Notes * Chana Shcrader ARNP - 12/22/2024 8:45 AM EST Images from the original note were not included. Patient Name: Raulito R Green, Male Date of : 1970, 54 y.o. Date: 12/22/2024 History of Present Illness Raulito Zepeda is a 54 y.o. male with pmh of dm, htn,, seen today as follow up for Hypertension andhyponatremia. He had severe hyponatremia and was in [facility] at that time. His Demeclocyclinewas stopped and was on PO Urea since- he has stopped taking this as he refused it in jail . His BP has been well controlled. Patient denies nausea, vomiting, dyspnea, cough, urinary symptoms c/o leg edema - not walking much - mostly improved in morning Loose stools improved He is not able to get mounjaro injections due to insurance -- jail med list does not have anyGLP1 med The following portions of the patient's chart were reviewed in this encounter and updated as appropriate: Allergies Meds Problems Med Hx Surg Hx Fam Hx EMR: [employer] Past Medical History: Diagnosis Date Anxiety disorder Asthma Depressive disorder Diabetes mellitus (HCC) Hemorrhoid Hypertension Hyposmolality and/or hyponatremia Intellectual disability Myopathy neurogenic myopathy Obesity Seizure (HCC) Review of Systems Constitutional: Negative for chills and fever. HENT: Negative for congestion, hearing loss and nosebleeds. Eyes: Negative for blurred vision. Respiratory: Negative for cough and shortness of breath. Cardiovascular: Negative for chest pain and leg swelling. Gastrointestinal: Positive for abdominal pain and diarrhea. Negative for blood in stool, constipation, heartburn, nausea, vomiting and poor appetite. Lower abdominal discomfort Genitourinary: Negative for dysuria, flank pain, hematuria and urgency. Musculoskeletal: Negative. Skin: Negative for rash. Neurological: Positive for dizziness. Negative for headaches. Chronic intermittent c/o Psychiatric/Behavioral: Negative. Medication List Current Outpatient Medications Medication Sig Dispense Refill acetaminophen (TYLENOL 8 HOUR) 650 MG 8 hr tablet Take 1 tablet by mouth every 4 (four) hours albuterol HFA (Ventolin HFA) 108 (90 Base) MCG/ACT inhaler aspirin (ST DARWIN) 81 MG EC tablet Take 1 tablet by mouth 1 (one) time each day atorvastatin (LIPITOR) 10 MG tablet Take 1 tablet by mouth 1 (one) time each day cholecalciferol (VITAMIN D-3) 25 MCG (1000 UT) capsule Take 1 capsule by mouth 1 (one) time each day cloNIDine (CATAPRES) 0.1 MG tablet Take 0.1 mg by mouth in the morning and 0.1 mg in the evening. cyanocobalamin (VITAMIN B-12) 1000 MCG tablet Take 1 tablet by mouth 1 (one) time each day divalproex (Depakote) 500 MG EC tablet Take 2 tablets by mouth 2 (two) times a day esomeprazole (NexIUM) [address] capsule Take 40 mg by mouth 1 (one) time each day before breakfast ferrous sulfate 325 (65 Fe) MG tablet Take 325 mg by mouth twice a day fluticasone (FLONASE) 50 MCG/ACT nasal spray Administer 1 spray into each nostril 1 (one) time eachday fluticasone-salmeterol (Advair Diskus) 250-50 MCG/DOSE diskus inhaler Inhale 1 puff 2 (two) times aday gabapentin (Neurontin) 100 MG capsule Take 2 capsules by mouth 2 (two) times a day hydrALAZINE (APRESOLINE) 50 MG tablet Take 1 tablet by mouth 2 (two) times a day hydrOXYzine (VISTARIL) 50 MG capsule Jardiance 25 MG tablet loperamide (IMODIUM) 2 MG capsule propranolol (INDERAL) 20 MG tablet Take 1 tablet by mouth 3 (three) times a day risperiDONE (RisperDAL) 3 MG tablet Take 1 tablet by mouth 2 (two) times a day simethicone (MYLICON) 125 MG chewable tablet Chew 125 mg every 6 (six) hours if needed for flatulence Sodium Fluoride (PREVIDENT 5000 BOOSTER PLUS DT) Apply to teeth twice a day No current facility-administered medications for this visit. Allergy List Allergies Allergen Reactions Lactose intolerance Sulfa Antibiotics Other (see comments) and Hives Physical Exam BP 120/80 Pulse 79 SpO2 98% Vitals reviewed. Constitutional: He is oriented to person, place, and time. He does not appear ill. No distress. HEENT: Mouth/Throat: Oropharynx is clear and moist. Eyes: Conjunctivae are normal. Neck: No JVD present. Cardiovascular: Normal rate and regular rhythm. No murmur heard. Trace edema He has b/l ankle braces He exhibits no edema. Pulmonary/Chest: Effort normal and breath sounds normal. Abdominal: Soft. He exhibits no distension and no mass. There is abdominal tenderness. No hernia. Obese abdomen Bilateral generalized lower abdomen discomfort Neurological: He is alert and oriented to person, place, and time. Skin: Skin is warm and dry. No rash noted. No erythema. Healing ulcer in back at the site of cyst surgery Psychiatric: He has a normal mood and affect. His behavior is normal. Labs Chemistry Lab Units 10/25/24 0000 05/12/24 0000 03/02/24 0000 12/10/23 0818 12/10/23 0817 10/22/23 0000 SODIUM 140 141 -- 140 -- 138 POTASSIUM 3.8 4.3 -- 4.4 -- 4.9 CO2 mmol/L 25 20 -- 25 -- 25 BUN mg/dL 15 21 -- 28* -- 19 CREATININE mg/dL 0.87 1.05 -- 1.3* -- 1.55* CHLORIDE -- 107 -- 102 -- 105.0 ALBUMIN GM/DL -- -- -- 3.8 -- 3.6 EGFRNAFR 103 -- 53 66 -- -- EGFR -- 85 -- -- -- -- HEMOGLOBIN 11.2* -- -- -- 12.4* -- HEMATOCRIT 33.7* -- -- -- 37.7* -- PLATELETS AUTO 10*3/UL 113* -- -- -- 121* -- Bone Mineral Lab Units 10/25/24 0000 05/12/24 0000 12/10/23 0818 12/10/23 0810/22/23 0000 CALCIUM mg/dL 8.8 9.0 9.2 -- 9.1 PHOSPHORUS MG/DL -- -- 2.7 -- -- PTH PG/ML -- -- -- 87* -- VITAMIN D NG/ML -- -- 38.0 -- -- Urine Lab Units 12/10/23 1245 ALB MG/G CREAT UR MG/DL Unable to calculate 45.3 Assessment & Plan 1. Chronic kidney disease, stage 2 (mild) 2. Hyponatremia 3. Hypertension CKD 2- bl cr 0.92 with egfr 64( ckd epi/ cyst 1.58) Hyponatremia- resolved - now off urea Hypertension- His BP is controlled at jail - at times even low. Blood pressure at target 120/80 here today. - continuing propranolol 20mg tid, clonidine 0.1mg bid and hydralazine 50mg bid No Edema noted He was on lasix 20mg daily - stopped in prior visits - advised limb elevation at night time with one or two pillows as tolerated He is now on jardiance 25mg daily - he is off metformin now - no proteinuria ( )- last a1c 6 ( ) Off Lisinopril - unsure why - states he was taken off at previous visit. PTH is elevated at 167 with normal vitamin d and calcium , ? Primary hpth - will monitor Diarrhea/lower abdominal discomfort: Possibly experiencing sx of GI viral illness - monitor for bloody stools - recommend good oral hydration - checking renal and urine labs - recommend avoid coffee as care transitions nurse states he has these symptoms on/off with coffee Orders Placed This Encounter PTH, intact Renal function panel CBC Urine Protein / creatinine ratio Urine Albumin / Creatinine Ratio Urinalysis with microscopic Return in about 6 months (around 06/21/2025) for Next scheduled follow-up with Jeronimo. NAMRATA Doe Cosigned by Lamont Grbubs MD at 12/23/2024 5:47 PM EST documented in this encounter Plan of Treatment Upcoming Encounters Date Type Department Care Team (Late st Contact Info) Description 06/21/2025 1:00 PM EDT Office Visit [facility] [address] [phone] Frantz Luis MD [address] [phone] Scheduled Orders Name Type Priority Associated Diagnoses Orde r Schedule PTH, intact Lab Routine Chronic kidney disease, stage 2 (mild) Hyponatremia Hypertension Expected: 06/05/2025, Expires: 07/10/2025 Renal function panel Lab Routine Chronic kidney disease, stage 2 (mild) Hyponatremia Hypertension Expected: 06/05/2025, Expires: 07/10/2025 CBC Lab Routine Chronic kidney disease, stage 2 (mild) Hyponatremia Hypertension Expected: 06/05/2025, Expires: 07/10/2025 Urine Protein / creatinine ratio Lab Routine Chronic kidney disease, stage 2 (mild) Hyponatremia Hypertension Expected: 06/05/2025, Expires: 07/10/2025 Urine Albumin / Creatinine Ratio Lab Routine Chronic kidney disease, stage 2 (mild) Hyponatremia Hypertension Expected: 06/05/2025, Expires: 07/10/2025 Urinalysis with microscopic Lab Routine Chronic kidney disease, stage 2 (mild) Hyponatremia Hypertension Expected: 06/05/2025, Expires: 07/10/2025 documented as of this encounter Visit Diagnoses Diagnosis Chronic kidney disease, stage 2 (mild)- Primary Hyponatremia Hypertension documented in this encounter Care Teams Ms Access Database Developer Relationship Specialty Start Date End Date Robert Sumner MD [address] [place], [place] PCP - General 11/20/20 documented as of this encounter
--- OUTSIDE RECORDS SUMMARY | 2024-12-24 12:56 | XMS_ITS | Clinical Summary ---
Author Organization [facility] Address [address] [place] [address] Phone Care Team Providers Care Straddle Bug Name Role Phone Robert Sumner MD Primary Care Provider [phone] Social History Tobacco Use Types Packs/Day Years Used Date Smoking Tobacco: Never Assessed Sex and Gender Information Value Date Recorded Sex Assigned at Not on file Legal Sex Male 6:34 PM EST Gender Identity Not on file Sexual Orientation Not on file Plan of Treatment Upcoming Encounters Date Type Department Care Team ([facility] Contact Info) Description 12/29/2024 10:15 AM EST Office Visit Orthopedic Surgery [place] [address] [phone] Jose Bonds, DPM [address] [address] Health Maintenance Due Date Last Done Comments DTaP,Tdap,and Td Vaccines (1 - Tdap) 1990 Hepatitis B Vaccines (1 of 3 - 19+ 3-dose series) 1990 Pneumococcal Vaccine: 50+ Ye ars (1 of 1 - PCV) 2021 Zoster Vaccines (1 of 2) 2021 Cholesterol Screening (Lipid Panel) 10/12/2022 Colorectal Cancer Screening: Colonoscopy 10/12/2022 Depression Screening 10/12/2022 HIV Screening 10/12/2022 Hepatitis C Screening 10/12/2022 Medicare Annual Wellness Visit 10/12/2022 Social Influencers of Health Screening 10/12/2022 COVID-19 Vaccine (1 - 2023-2 5 season) 2024 Influenza Vaccine [...] Documents on File Type Date Recorded Patient Pitch Flaker Expl anation Health Care Decision (hx) 12/11/2020 AD VELASQUEZ DIRECTIVE Health Care Decision (hx) 12/11/2020 AD VELASQUEZ DIRECTIVE Health Care Decision (hx) 12/11/2020 AD VELASQUEZ DIRECTIVE Health Care Decision (hx) 12/11/2020 AD VELASQUEZ DIRECTIVE Care Teams Straddle Bug Relationship Specialty Start Date End Date Robert Sumner MD [address] [place] [address] [address] [facility] [place] [address] PCP - General Internal Medicine 09/24/24
--- OUTSIDE RECORDS SUMMARY | 2024-12-24 12:56 | XMS_ITS | Clinical Summary ---
Author Organization [facility] Address [address] [place] [phone] Phone Care Team Providers Care Meat Specialist Name Role Phone Robert Sumner MD Primary Care Provider [phone] Allergies Active Allergy Reactions Criticality Noted Date Comments Lactose 04/26/2022 intolerance Sulfa Antibiotics Other (see comments),Hives Medications acetaminophen (TYLENOL 8 HOUR) 650 MG 8 hr tablet Take 1 tablet by mouth every 4 (four) hours Active albuterol HFA (Ventolin HFA) 108 (90 Base) MCG/ACT inhaler Active aspirin (ST DARWIN) 81 MG EC tablet Take 1 tablet by mouth 1 (one) time each day Active atorvastatin (LIPITOR) 10 MG tablet Take 1 tablet by mouth 1 (one) time each day Active cholecalcifero l (VITAMIN D-3) 25 MCG (1000 UT) capsule Take 1 capsule by mouth 1 (one) time each day Active cyanocobalamin (VITAMIN B-12) 1000 MCG tablet Take 1 tablet by mouth 1 (one) time each day Active divalproex (Depakote) 500 MG EC tablet Take 2 tablets by mouth 2 (two) times a day Active fluticasone-sa lmeterol (Advair Diskus) 250-50 MCG/DOSE diskus inhaler Inhale 1 puff 2 (two) times a day Active gabapentin (Neurontin) 100 MG capsule Take 2 capsules by mouth 2 (two) times a day Active hydrALAZINE (APRESOLINE) 50 MG tablet Take 1 tablet by mouth 2 (two) times a day Active propranolol (INDERAL) 20 [...] (six) hours if needed for flatulence Active Sodium Fluoride (PREVIDENT 5000 BOOSTER PLUS DT) Apply to teeth twice a day Active Jardiance 25 MG tablet 02/12/20 24 Active loperamide (IMODIUM) 2 MG capsule 12/05/19 24 Active hydrOXYzine (VISTARIL) 50 MG capsule 11/26/19 24 Active esomeprazole (NexIUM) [address] capsule Take 40 mg by mouth 1 (one) time each day before breakfast 05/03/20 24 Active cloNIDine (CATAPRES) 0.1 MG tablet Take 0.1 mg by mouth in the morning and 0.1 mg in the evening. Active lactase (Lactaid) 3000 units tablet Take 1 tablet by mouth 3 (three) times a day 025 Discontinued (Med List Maintenance) Methylcellulos e, Laxative, (CITRUCEL PO) Take 500 mg by mouth 1 (one) time each day in the morning 025 Discontinued (Med List Maintenance) lisinopril 20 MG tablet Take 20 mg by mouth 02/01/20 22 025 Discontinued (Discontinue d by another clinician (does not appear on AVS)) Active Problems Problem Noted Date Diagnosed Date Chronic kidney disease, stage 2 (mild) Leg swelling symptom 10/23/2023 Ankle pain 10/23/2023 [...] Encounters Date Type Department Care Team Description 12/22/2024 8:45 AM EST [facility] [address] [phone] Chana Schrader ARNP Chronic kidney disease, stage 2 (mild) (Primary Dx); Hyponatremia; Hypertension 11/30/2024 Orders Only [facility] [address] [phone] Frantz Luis MD Chronic kidney disease, stage 2 (mild) 11/29/2024 Refill [facility] [address] [phone] Alda Glass MA from Last 3 Months Family History [...] EST Inhaled Oxygen Concentration - - Weight 102 kg (225 lb 3.2 oz) 08/30/2024 2:07 PM EDT Height 165.1 cm (5' 5 ) 05/31/2024 3:28 PM EDT Body Mass Index 37.48 05/31/2024 3:28 PM EDT Plan of Treatment Upcoming Encounters Date Type Department Care Team (Late st Contact Info) Description 06/21/2025 1:00 PM EDT Office Visit [facility] [address] [phone] Frantz Luis MD [address] [phone] Health Maintenance Due Date Last Done [...] 8.8 8.7 - 10.7 mg/dL eGFR Non-Afr Central African 103 10/25/2024 Historical Provider LAB BLOOD ORDERABLES Savannah l Result from Last 3 Months Insurance [place] Care Teams Meat Specialist Relationship Specialty Start Date End Date Robert Sumner MD [employer] [facility] [employer] [facility] [place] [address] [place] PCP - General 11/20/20
--- OUTSIDE RECORDS SUMMARY | 2024-12-24 12:56 | XMS_ITS | Encounter Summary ---
Author Organization [facility] Address [address] [phone] Phone Care Team Providers Care Lead Injection Mold Technician Name Role Phone Robert Sumner MD Primary Care Provider [phone] Encounter Details Date Type Department Care Team ([facility] Contact Info) Description 11/30/2024 Orders Only [facility] [address] [phone] Frantz Luis MD [address] [place] [phone] Chronic kidney disease, stage 2 (mild) [...] Office Visit [facility] [address] [place] [phone] Frantz Luis MD [address] [place] [phone] documented as of this encounter Visit Diagnoses Diagnosis Chronic kidney disease, stage 2 (mild) documented in this encounter Care Teams Lead Injection Mold Technician Relationship Specialty Start Date End Date Robert Sumner MD [facility] [place] [address] [place], [place] PCP - General 11/20/20 documented as of this encounter
[2024-12-24 13:13] VITALS: BP 120/60
== END 2024-12-24 13:33 | disposition home or self-care (01) ==
PROVIDERS: PCP Internal Medicine; Visit Provider Internal Medicine
DX: B02.9 Zoster without complications (principal); E11.65 Type 2 diabetes mellitus with hyperglycemia; K21.9 Gastro-esophageal reflux disease without esophagitis; I10 Essential (primary) hypertension; E78.5 Hyperlipidemia, unspecified; G11.9 Hereditary ataxia, unspecified; F20.9 Schizophrenia, unspecified; Z13.9 Encounter for screening, unspecified; Z23 Encounter for immunization

== ENCOUNTER 2024-12-27 01:03 | Emergency (ER) | payer MEDICARE, MEDICAID, SELFPAY ==
--- NOTE | 2024-12-27 | ECG_ITS ---
Test Reason : ARRYTHMIA/CP Blood Pressure : */* mmHG Vent. Rate : 72 BPM Atrial Rate : 72 BPM P-R Int : 188 ms QRS Dur : 86 ms QT Int : 396 ms P-R-T Axes : 48 -14 22 degrees QTcB Int : 433 ms Normal sinus rhythm Low voltage QRS Borderline ECG When compared with ECG of 14-Jan-2024 21:43, No significant change was found Referred By: Reggie Braxton Electronically Signed By: AP MONTGOMERY
[2024-12-27 01:08] VITALS: BP 156/106; BP 183/108; PULSE 86; PULSE 98; RESP 22; TEMP 36.4; O2SAT 98; O2SAT 99; BMI 35.0
--- NOTE | 2024-12-27 01:14 | ED_ITS ---
HPI - Chest Pain General Chief Complaint: General Medical Stated Complaint: CP radiating down side Source: patient Mode of arrival: EMS History of Present Illness ED Provider: Dr. Reggie Braxton HPI narrative: 54-year-old male with a history of atrial fibrillation, hypertension, diabetes mellitus, asthma, vertigo, seizure disorder, who presents emergency department for evaluation chest pain and dizziness. Patient states that yesterday he developed chest pain, he points to his sternum, describes the pain is a heaviness that he has been constant but waxed and waned in intensity. States he felt shaky and felt dizzy. States the pain was 10/10. Patient was had similar pain in the past. Patient also states that he he was voices and he told the nurse that the voices are telling him to do something. Patient was been seen in the emergency department before for similar pain and for hearing voices. Related Data Home Medications ?Medication ?Instructions ?Recorded ?Confirmed divalproex 500 mg tablet,extended 1,000 mg PO BID 06/10/23 11/12/24 release 24 hr gabapentin 100 mg capsule 300 mg PO BID 06/10/23 11/12/24 risperidone 3 mg tablet 3 mg PO BID 06/10/23 11/12/24 albuterol sulfate 90 mcg/actuation 2 puff inhalation Q6H PRN Wheezing 07/29/23 11/12/24 aerosol inhaler guaifenesin 100 mg/5 mL oral 200 mg PO Q4H PRN Cough 07/29/23 11/12/24 liquid (Siltussin SA) ondansetron 4 mg disintegrating 4 mg PO Q6H PRN Nausea And Vomiting 07/29/23 11/12/24 tablet hydroxyzine pamoate 50 mg capsule 50 mg PO DAILY PRN 10/13/23 11/12/24 AGITATION/ANXIETY sennosides 8.6 mg tablet (senna) 17.2 mg PO DAILY PRN Constipation 12/23/23 11/12/24 clonidine HCl 0.1 mg tablet 0.1 mg PO BEDTIME 07/09/24 11/12/24 Previous Rx's ?Medication ?Instructions ?Recorded lancets 30 gauge (OneTouch #100 ea 06/17/23 UltraSoft 2 Lancet) bismuth subsalicylate 262 mg/15 mL 524 mg (30 mL) PO QID PRN diarrhea 08/01/23 oral suspension (Pepto-Bismol) 7 days #1,200 mL nystatin 100,000 unit/gram topical 1 appl topical TID PRN Rash #60 08/04/23 powder grams lactase 3,000 unit tablet (Lactaid) 3,000 unit PO TIDWM PRN Lactose 11/14/23 Intolerance #30 tabs hydralazine 50 mg tablet 50 mg PO TID #90 tabs 01/29/24 acetaminophen 325 mg tablet 650 mg (2 x 325 mg) PO Q4H PRN 02/04/24 fever or pain 90 days #180 tabs methylcellulose (laxative) 500 mg 1,000 mg (2 x 500 mg) PO DAILY 30 02/26/24 tablet (Citrucel) days #60 tabs starch (thickening) (Diafoods See Rx Instructions PO .COMPLEX 30 03/17/24 Thick-It oral powder) days #850 grams blood-glucose meter (AlixaRxTouch #1 ea 04/07/24 Ultra2 Meter) blood-glucose meter (PonoMusicy #1 ea 04/07/24 Autocode Blood Glucose Monitoring System) lancets 28 gauge (IPM France Lancets) #200 ea 04/07/24 lancing device (instruMagicigy Lancing #1 ea 04/07/24 Device) fluticasone propionate 50 1 spray intranasal BID #16 grams 06/17/24 mcg/actuation nasal spray,suspension (Flonase Allergy Relief) blood sugar diagnostic (PonoMusicy No #100 ea 07/19/24 Coding strips) alvarez.stocking,knee,reg,xlrg #12 ea 07/19/24 [id number] #1 ea 09/03/24 Bilateral custom AFO #2 ea 09/03/24 Heat Moldable shoe inserts #2 ea 09/03/24 dextromethorphan polistirex 30 10 ml PO Q12H PRN cough #89 mL 10/13/24 mg/5 mL oral susp ext.release 12hr (Delsym 12 hour) fluoride (sodium) 1.1 % dental 1 appl dental BID #100 mL 10/13/24 paste (PreviDent 5000 Booster Plus) valacyclovir 1 gram tablet 1,000 mg PO TID #21 tabs 10/13/24 fluticasone furoate 200 1 inh inhalation DAILY #60 ea 10/15/24 mcg-vilanterol 25 mcg/dose inhalation powder (Breo Ellipta) cyanocobalamin (vitamin B-12) 1,000 mcg PO BEDTIME #90 tabs 10/30/24 1,000 mcg tablet lidocaine 5 % topical patch 1 patch topical DAILY PRN pain #15 11/12/24 ea neomycin-bacitracn Zn-polymyxn 3.5 1 appl topical BID #10 ea 11/25/24 mg-400 unit-5,000 unit top oint pkt (Triple Antibiotic) atorvastatin 10 mg tablet 10 mg PO BEDTIME #90 tabs 12/01/24 cholecalciferol (vitamin D3) 25 25 mcg PO DAILY #30 tabs 12/01/24 mcg (1,000 unit) tablet empagliflozin 25 mg tablet 25 mg PO DAILY #30 tabs 12/01/24 (Jardiance) esomeprazole magnesium 40 mg 40 mg PO BEDTIME #28 caps 12/01/24 capsule,delayed release (Nexium) ferrous sulfate 325 mg (65 mg 325 mg PO BID #180 tabs 12/01/24 iron) tablet propranolol 20 mg tablet 20 mg PO TID@0800,1600,2000 90 12/01/24 days #270 tabs loperamide 2 mg capsule 2 mg PO Q6H PRN loose stool #30 12/14/24 caps lisinopril 5 mg tablet 5 mg PO DAILY #30 tabs 12/24/24 Allergies Allergy/AdvReac Type Severity Reaction Status Date / Time Sulfa (Sulfonamide Allergy Severe CHAVEZ Verified 12/27/24 01:10 Antibiotics) ALICIA REACTION trimethoprim Allergy Mild UNKNOWN Verified 12/27/24 01:10 lactose AdvReac Mild STOMACH Verified 12/27/24 01:10 UPSET Review of Systems 2 Review of Systems: Yes all other systems are reviewed and are negative [facility] Past Medical History [facility] Narrative: Social history: He lives in a senior care Medical History Feeling suicidal Tinea cruris Leg swelling Atrial flutter Atrial fib/flutter, transient A-fib Arrhythmia Abnormal EKG Contusion of left ankle Annual physical exam Abdominal pain Back pain Positive colorectal cancer screening using Cologuard test Precordial chest pain Hospital discharge follow-up Chest pain Right ankle pain Musculoskeletal chest pain Left-sided chest pain Back pain Fall Dysphagia Acute kidney injury Gait instability Suicidal ideation COVID-19 Hypomagnesemia Diarrhea Abdominal pain Ankle pain, left Left ankle sprain Seizure disorder Hypertension Anxiety Hyponatremia Cerebellar ataxia Anemia Lactose intolerance Vertigo Asthma Mental disability Type 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 Proteinuria Hyperlipidemia LDL goal <100 Essential hypertension Surgical History Hx of surgical procedure (07/22/24) Hx of colonoscopy History of orchiectomy Family History Family History Father Myocardial infarction CVD (cardiovascular disease) Diabetes mellitus Mother Diabetes mellitus HTN (hypertension) Brother In good health Sister In good health Social History Social History Household Members: Other Household Members Other:: from senior care Housing: House Housing Other:: senior care [facility] [address] [place] [phone] Do you presently have visiting nurse or other home services: Yes 75 years or older and lives alone: No Unable to assess alcohol history related to: Unknown Alcohol intake: former 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 Patient Tobacco Use Status: Never used Tobacco Tobacco use type: Cigarette e-Cigarette/Vaping Use: Never Used Second Hand Smoke Exposure: No Advance Directives Date on File: 03/07/21 service: No Current occupational status: disabled Cognitive needs: Yes (walker) Hearing needs: No Vision needs: Yes (glasses) Physical Exam 2 Vital Signs: Vital Signs: Last Vital Signs Temp 97.9 F 12/27/24 02:55 Pulse 76 12/27/24 02:55 Resp 16 12/27/24 02:55 BP 127/79 12/27/24 02:55 Pulse Ox 98 12/27/24 02:55 O2 Del Method Room Air 12/27/24 02:55 BMI result Body Mass Index 35.0 Exam: General: Awake, alert in no distress Head: Normocephalic, atraumatic EENT: Patient has a dysconjugate gaze with his right eye looking laterally, pupils were equal round reactive to light, Lids normal, sclera normal, conjunctiva normal, nose normal , ears normal, throat without erythema or exudates Neck: Supple, no adenopathy Lung: breath sounds symmetric, no wheezing, rales or rhonchi Chest: Patient has tenderness palpation of his sternum and costochondral joint bilaterally Heart: regular rate and rhythm, normal S1, S2 no murmurs or rubs Abdomen: soft, non-tender, nondistended, normal bowel sounds Back: no vertebral tenderness, no CVAT Extremities: no deformities, moves all extremities symmetrically Neuro: Awake, alert, oriented, normal speech, cranial nerves intact, moves all extremities symmetrically Psych: Pleasant, cooperative Medications Administered Discontinued Medications Generic Name Dose Route Start Last Admin Trade Name Freq PRN Reason Stop Dose Admin Ketorolac Tromethamine 15 mg 12/27/24 01:14 12/27/24 01:33 Ketorolac Tromethamine 15 Mg/Ml Vial IVPUSH 12/27/24 01:15 15 mg ONCE STA Administration Lorazepam 1 mg 12/27/24 01:14 12/27/24 01:34 Lorazepam 2 Mg/Ml Vial IVPUSH 12/27/24 01:15 1 mg STAT STA Administration Morphine Sulfate 4 mg 12/27/24 02:22 12/27/24 02:26 Morphine Sulfate 4 Mg/Ml Cartridge IVPUSH 12/27/24 02:23 4 mg ONCE STA Administration Protocol Medical Decision Making Medical Decision Making MDM Narrative: 54-year-old male with a history of atrial fibrillation, hypertension, diabetes mellitus, asthma, vertigo, seizure disorder, who presents emergency department for evaluation chest pain and dizziness with symptoms starting earlier yesterday. Chest pain is in the midsternal pressure pain which has been constant, waxing and wanes in intensity and it was 10/10. Patient he was had similar pain in the past. Patient was also having auditory hallucinations and he was had similar hallucinations in the past. Physical examination did reveal sternal tenderness as well as tenderness palpation over the costochondral joints. Differential diagnosis: ?Includes but is not limited to myocardial infarction, myocardial ischemia, musculoskeletal pain, costochondritis, auditory hallucinations, depression, anxiety Course: 01:30 Patient was 12 EKG revealed a sinus rhythm with no acute ST segment elevation or depression. Patient was treated with Toradol 15 mg IV and Ativan 1 mg IV. 02:18 My interpretation patient's laboratory evaluation is as follows: H&H was normal. Platelet count low 115,000. Glucose elevated 129. High sensitive troponin I was detectable but not elevated at 3.0. Patient was had constant chest pain since yesterday morning and I think this low troponin is reassuring suggesting the patient did not have myocardial infarction is less injury is the cause of his chest pain. Patient's ethanol level was below detectable limits. Patient states that he got minimal relief of his pain with the above treatment. Patient was given morphine 4 mg IV and discharged back to his senior care.[facility] staff member states that he can drive the patient home, patient does use a walker to ambulate. Admission/Observation Consideration of admission/observation: Escalation of care including admission/observation considered (Yes) Lab Data MDM Lab Attestation statement: I reviewed the patient's lab results. 12/27/24 01:27 12/27/24 01:28 Labs: Lab Results 12/27/24 12/27/24 Range/Units 01:27 01:28 WBC 4.8 (4.8-10.8) X10*3/uL RBC 4.66 (4.60-5.80) X10*6/uL Hgb 14.3 (14.0-18.0) g/dl Hct 42.0 (42.0-52.0) % MCV 90.1 (80.0-98.0) fL MCH 30.7 (27.0-33.0) pg MCHC 34.0 (31.0-36.0) g/dl RDW 12.5 (11.0-16.0) % Plt Count 115 L (160-400) X10*3/uL MPV 9.3 L (9.4-12.4) fL Immature Gran % (Auto) 0.6 H (0.0-0.4) % Neut % (Auto) 46.5 (45-73) % Lymph % (Auto) 40.5 H (20-40) % [place] % (Auto) 10.7 (2-11) % Eos % (Auto) 1.1 (0-4) % Baso % (Auto) 0.6 (0-2) % Lymph # (Auto) 1.9 (1.2-4.9) X10*3/uL [place] # (Auto) 0.5 (0.1-1.2) X10*3/uL Eos # (Auto) 0.1 (0.0-0.4) X10*3/uL Baso # (Auto) 0.0 (0.0-0.2) X10*3/uL Abs Immat Gran (auto) 0.03 (0.00-0.03) X10*3/uL Absolute Neuts (auto) 2.2 (2.0-8.3) x10*3/uL Absolute Nucleated RBC 0.000 (0.0-0.012) X10*3/uL Nucleated RBC % (auto) 0.0 (0.0-0.2) /100WBC Sodium 142 (135-145) mmol/L Potassium 3.8 (3.3-5.1) mmol/L Chloride 108 (96-108) mmol/L Carbon Dioxide 24 (22-29) mmol/L Anion Gap 14 (12-20) BUN 19 H (9-16) mg/dL Creatinine 0.86 (0.5-1.4) mg/dL Estim Creat Clear Calc 105.4 Estimated GFR > 60 Random Glucose 129 H (60-115) mg/dL Calcium 9.1 (8.4-10.2) mg/dL Total Bilirubin 0.3 (0.0-1.0) mg/dL AST 20 (5-37) U/L ALT 15 (0-40) U/L Alkaline Phosphatase 70 (39-117) U/L Troponin I High Sens 3.0 D (<3.5-35.0) ng/L Total Protein 7.1 (6.5-8.0) g/dL Albumin 3.7 (3.5-5.0) g/dL Ethyl Alcohol < 10 mg/dL Independent Interpretation I performed an independent interpretation of an: EKG Interpretation: My independent interpretation patient's 12 EKG done on 12/27/2024 at 01:06 hours is as follows: Normal sinus rhythm rate of 72, normal MT interval, QRS duration QTC interval, no ST segment elevation, no ST segment depression, no significant T-wave abnormalities, no PACs, no PVCs Independent Historian Clinical information obtained from an independent historian. History obtained from or confirmed by: Other ( [facility] staff member) Chronic Conditions Patient?s care impacted by: Diabetes Discharge Plan Discharge Clinical Impression: Chest pain, Auditory hallucination, Acute costochondritis Patient Disposition: Home, Self-Care Instructions: Costochondritis (ED) Additional Instructions: Your blood work was normal which is reassuring. Your EKG was unremarkable and unchanged from your previous EKGs. On your exam you had significant tenderness when I pushed on the joints and muscles of your chest, this is consistent with costochondritis. You were treated in the emergency department with Toradol, Ativan and morphine IV. Continue taking your medications as prescribed by your providers. Follow-up with your doctor in 2 days. Please return to the emergency department if your symptoms get worse or if you develop any symptoms that are concerning to you. Prescriptions: No Action (DME) lancets [OneTouch UltraSoft 2 Lancet] 30 gauge misc See Rx Instructions .Route Qty: 100 5RF Rx Instructions: test once daily nystatin 100,000 unit/gram powder 1 appl TOPICAL TID PRN (Reason: Rash) Qty: 60 0RF hydralazine 50 mg tablet 50 mg PO TID Qty: 90 3RF Citrucel 500 mg tablet 1,000 mg PO DAILY 30 Days Qty: 60 2RF Diafoods Thick-It Powder See Rx Instructions PO .COMPLEX 30 Days Qty: 850 12RF Rx Instructions: Add thick it powder to food and beverage using enclosed measuring spoon TID (DME) blood-glucose meter [IPM France Autocode Monitor Syst] Misc See Rx Instructions .Route Qty: 1 0RF Rx Instructions: As directed fluticasone propionate [Flonase Allergy Relief] 50 mcg/actuation spray,suspension 1 spray intranasal BID Qty: 16 12RF Rx Instructions: administer into each nostril (DME) [id number] 10 XW 3 See Rx Instructions .Route .MEDSUPPLY Qty: 1 0RF Rx Instructions: As directed (DME) Heat Moldable shoe inserts See Rx Instructions .Route .MEDSUPPLY Qty: 2 0RF Rx Instructions: As directed (DME) Bilateral custom AFO See Rx Instructions .Route .MEDSUPPLY Qty: 2 0RF Rx Instructions: As directed dextromethorphan polistirex [Delsym 12 hour] 30 mg/5 mL suspension,extended rel 12 hr 10 ml PO Q12H PRN (Reason: cough) Qty: 89 0RF fluoride (sodium) [PreviDent 5000 Booster Plus] 1.1 % paste 1 appl DENTAL BID Qty: 100 0RF fluticasone furoate-vilanterol [Breo Ellipta] 200-25 mcg/dose blister with device 1 inh inhalation DAILY Qty: 60 4RF cyanocobalamin (vitamin B-12) 1,000 mcg tablet 1,000 mcg PO BEDTIME Qty: 90 0RF Triple Antibiotic 3.5-400-5,000 [id number] ointment in packet 1 appl TOPICAL BID Qty: 10 7RF ferrous sulfate 325 mg (65 mg iron) tablet 325 mg PO BID Qty: 180 0RF propranolol 20 mg tablet 20 mg PO TID@0800,1600,2000 90 Days Qty: 270 0RF atorvastatin 10 mg tablet 10 mg PO BEDTIME Qty: 90 0RF esomeprazole magnesium [Nexium] 40 mg capsule,delayed release(DR/EC) 40 mg PO BEDTIME Qty: 28 0RF Jardiance 25 mg tablet 25 mg PO DAILY Qty: 30 0RF cholecalciferol (vitamin D3) 25 mcg (1,000 unit) tablet 25 mcg PO DAILY Qty: 30 0RF loperamide 2 mg capsule 2 mg PO Q6H PRN (Reason: loose stool) Qty: 30 0RF hydroxyzine pamoate 50 mg capsule 50 mg PO DAILY PRN (Reason: AGITATION/ANXIETY) clonidine HCl 0.1 mg Tablet 0.1 mg PO BEDTIME valacyclovir 1 gram tablet 1,000 mg PO TID Qty: 21 0RF risperidone 3 mg tablet 3 mg PO BID divalproex 500 mg tablet extended release 24 hr 1,000 mg PO BID gabapentin 100 mg capsule 300 mg PO BID guaifenesin [Siltussin SA] 100 mg/5 mL Liquid 200 mg PO Q4H PRN (Reason: Cough) albuterol sulfate 90 mcg/actuation Hfa Aerosol Inhaler 2 puff INHALATION Q6H PRN (Reason: Wheezing) ondansetron 4 mg Tablet,Disintegrating 4 mg PO Q6H PRN (Reason: Nausea And Vomiting) sennosides [senna] 8.6 mg Tablet 17.2 mg PO DAILY PRN (Reason: Constipation) bismuth subsalicylate [Pepto-Bismol] 262 mg/15 mL suspension 524 mg PO QID PRN (Reason: diarrhea) 7 Days Qty: 1200 0RF lactase [Lactaid] 3,000 unit tablet 3,000 unit PO TIDWM PRN (Reason: Lactose Intolerance) Qty: 30 11RF Rx Instructions: take at the start of drinking milk only acetaminophen 325 mg tablet 650 mg PO Q4H PRN (Reason: fever or pain) 90 Days Qty: 180 2RF (DME) alvarez.stocking,knee,reg,xlrg Misc See Rx Instructions .Route Qty: 12 0RF Rx Instructions: As directed 10-20 mm HG (DME) Prodigy No Coding Strip See Rx Instructions .Route Qty: 100 11RF Rx Instructions: As directed 2 times per day (DME) lancing device [Prodigy Lancing Device] Misc See Rx Instructions .Route Qty: 1 0RF Rx Instructions: As directed (DME) lancets [Prodigy Lancets] 28 gauge misc See Rx Instructions .Route Qty: 200 3RF Rx Instructions: As directed check BS twice a day (DME) blood-glucose meter [OneTouch Ultra2 Meter] Misc See Rx Instructions .Route Qty: 1 0RF Rx Instructions: test once daily lidocaine 5 % adhesive patch,medicated 1 patch topical DAILY PRN (Reason: pain) Qty: 15 0RF Rx Instructions: leave on most painful area for 4-5 hours. lisinopril 5 mg tablet 5 mg PO DAILY Qty: 30 8RF Interventions: ED Discharge Assessment Last Done: 12/27/24 02:55 Discharge Date/Time: 12/27/24 03:17 Print Language: Lao
--- OUTSIDE RECORDS SUMMARY | 2024-12-27 01:26 | XMS_ITS | Clinical Summary ---
Author Organization [address] [facility] Address [address] [place] [address] Phone Care Team Providers Care Bulwark Carpenter Name Role Phone Robert Sumner MD Primary Care Provider Social History Tobacco Use Types Packs/Day Years Used Date Smoking Tobacco: Never Assessed Sex and Gender Information Value Date Recorded Sex Assigned at Not on file Legal Sex Male 6:34 PM EST Gender Identity Not on file Sexual Orientation Not on file Plan of Treatment Upcoming Encounters Date Type Department Care Team ([facility] Contact Info) Description 12/29/2024 10:15 AM EST Office Visit Orthopedic Surgery [place] [phone] [phone] Jose Bonds, DPM [address] [address] Health Maintenance Due Date Last Done Comments [...] Documents on File Type Date Recorded 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
--- OUTSIDE RECORDS SUMMARY | 2024-12-27 01:27 | XMS_ITS | Encounter Summary ---
Author Organization [facility] Address [address] [phone] Phone Care Team Providers Care Syrup Maker Cook Name Role Phone Robert Sumner MD Primary Care Provider [phone] Encounter Details Date Type Department Care Team ([facility] Contact Info) Description 11/30/2024 Orders Only [facility] [address] [phone] Frantz Luis MD [address] [place] [phone] Chronic kidney disease, stage 2 (mild) [...] Office Visit [facility] [address] [place] [phone] Frantz Luis MD [address] [place] [phone] documented as of this encounter Visit Diagnoses Diagnosis Chronic kidney disease, stage 2 (mild) documented in this encounter Care Teams Syrup Maker Cook Relationship Specialty Start Date End Date Robert Sumner MD [facility] [address] [place], [place] PCP - General 11/20/20 documented as of this encounter
--- OUTSIDE RECORDS SUMMARY | 2024-12-27 01:27 | XMS_ITS | Encounter Summary ---
Author Organization [facility] Address [address] [facility] [address] [place] [address] Phone Care Team Providers Care Food Vendor Name Role Phone Robert Sumner MD Primary Care Provider [phone] Reason for Visit * Reason Onset Date Comments Med Refill 11/29/2024 Encounter Details Date Type Department Care Team (Late Contact Info) Description 11/29/2024 Refill [facility] [address] [facility] [address] [place] [phone] Alda Glass MA [address] [facility] [address] [place] [phone] Social History Tobacco Use Types Packs/Day Years [...] EDT Office Visit [facility] [address] [facility] [address] [place] [phone] Frantz Luis MD [address] [facility] [address] [place] [address] documented as of this encounter Visit Diagnoses Not on filedocumented in this encounter Care Teams Food Vendor Relationship Specialty Start Date End Date Robert Sumner MD [facility] [place] [address] [place] PCP - General 11/20/20 documented as of this encounter
--- OUTSIDE RECORDS SUMMARY | 2024-12-27 01:27 | XMS_ITS | Clinical Summary ---
Author Organization [facility] Address [address] [place] [phone] Phone Care Team Providers Care Pharmacy Technician Name Role Phone Robert Sumner MD Primary Care Provider [phone] Allergies Active Allergy Reactions Criticality Noted Date [...] EST [facility] Visit [facility] [address] [phone] Chana Schrader ARNP Chronic kidney disease, stage 2 (mild) (Primary Dx); Hyponatremia; Hypertension 11/30/2024 Orders Only [facility] [address] [phone] Frantz Luis MD Chronic kidney disease, stage 2 (mild) 11/29/2024 Refill [facility] [address] [phone] Alda Glass MA from Last 3 Months [...] [facility] [address] [phone] Frantz Luis MD [address] [phone] Health Maintenance Due Date Last [...] 8.8 8.7 - 10.7 mg/dL eGFR Non-Afr Niue[place] 103 10/25/2024 Historical Provider LAB BLOOD ORDERABLES Savannah l Result from Last 3 Months Insurance [place] Care Teams Pharmacy Technician Relationship Specialty Start Date End Date Robert Sumner MD [facility] [place] [address] [place] PCP - General 11/20/20
--- OUTSIDE RECORDS SUMMARY | 2024-12-27 01:27 | XMS_ITS | Encounter Summary ---
Author Organization [facility] Address [address] [address] Phone Care Team Providers Care Goodwill Ambassador Name Role Phone Robert Sumner MD Primary Care Provider [phone] Reason for Visit * Reason Comments Chronic Kidney Disease Encounter Details Date Type Department Care Team ([facility] st Contact Info) Description 12/22/2024 8:45 AM EST Office Visit [facility] [address] [address] Chana Schrader ARNP [address] [address] Chronic kidney disease, stage 2 [...] in this encounter Progress Notes * Chana Schrader ARNP - 12/22/2024 8:45 AM EST Images from the original note were not included. Patient Name: Raulito R Green, Male Date of : 1970, 54 y.o. Date: 12/22/2024 History of Present Illness Raulito Zepeda is a 54 y.o. male with pmh of dm, htn,, seen today as follow up for Hypertension andhyponatremia. He had severe hyponatremia and was in [facility] hospital at that time. His Demeclocyclinewas stopped and was on PO Urea since- he has stopped taking this as he refused it in shelter . His BP has been well controlled. Patient denies nausea, vomiting, dyspnea, cough, urinary symptoms c/o leg edema - not walking much - mostly improved in morning Loose stools improved He is not able to get mounjaro injections due to insurance -- shelter med list does not have anyGLP1 med The following portions of the patient's chart were reviewed in this encounter and updated as appropriate: Allergies Meds Problems Med Hx Surg Hx Fam Hx EMR: [employer]/ Game Blisters/ [employer]myCoach Past Medical History: Diagnosis Date Anxiety disorder [...] urea Hypertension- His BP is controlled at shelter - at times even low. Blood pressure [...] urine labs - recommend avoid coffee as wound care technician states he has these symptoms on/off with coffee Orders Placed This Encounter PTH, intact Renal function panel CBC Urine Protein / creatinine ratio Urine Albumin / Creatinine Ratio Urinalysis with microscopic Return in about 6 months (around 06/21/2025) for Next scheduled follow-up with Jeronimo. NAMRATA Doe Cosigned by Lamont Grubbs MD at 12/23/2024 5:47 PM EST documented in this encounter Plan of Treatment Upcoming Encounters Date Type Department Care Team (Late st Contact Info) Description 06/21/2025 1:00 PM EDT Office Visit [facility] [address] [address] Frantz Luis MD [address] [phone] Scheduled Orders Name Type Priority Associated Diagnoses [...] Hypertension documented in this encounter Care Teams Goodwill Ambassador Relationship Specialty Start Date End Date Robert Sumner MD [address] [place], [place] PCP - General 11/20/20 documented as of this encounter
[2024-12-27 01:31] LABS: MANUAL DIFF FLAG NO
[2024-12-27] MEDS: Ketorolac Tromethamine 15 MG/ML VIAL IVPUSH (01:33)
[2024-12-27] MEDS: LORazepam 2 MG/ML VIAL 1 MG IVPUSH (01:34)
[2024-12-27 01:35] LABS: Basophils Percent Auto 0.6 % (0-2); Eosinophils Absolute Auto 0.1 X10*3/uL (0.0-0.4); Eosinophils Percent Auto 1.1 % (0-4); Hemoglobin 14.3 g/dl (14.0-18.0); Imm Gran Abs Auto 0.03 X10*3/uL (0.00-0.03); Imm Gran Pct Auto 0.6 % (0.0-0.4); Lymphocytes Absolute Auto 1.9 X10*3/uL (1.2-4.9); Lymphocytes Percent Auto 40.5 % (20-40); Mean Corpuscular Hemoglobin 30.7 pg (27.0-33.0); Mean Corpuscular Volume 90.1 fL (80.0-98.0); Mean Platelet Volume 9.3 fL (9.4-12.4); Monocytes Absolute Auto 0.5 X10*3/uL (0.1-1.2); Monocytes Percent Auto 10.7 % (2-11); Neutrophils Absolute Auto 2.2 x10*3/uL (2.0-8.3); Neutrophils Percent Auto 46.5 % (45-73); Platelet Count 115 X10*3/uL (160-400); Red Blood Count 4.66 X10*6/uL (4.60-5.80); Red Cell Distribution Width 12.5 % (11.0-16.0); White Blood Count 4.8 X10*3/uL (4.8-10.8)
[2024-12-27 01:40] VITALS: BP 136/79; PULSE 69; RESP 16; O2SAT 99
[2024-12-27 01:52] LABS: Alanine Aminotransferase 15 U/L (0-40); Albumin Level 3.7 g/dL (3.5-5.0); Anion Gap 14 (12-20); Aspartate Amino Transferase 20 U/L (5-37); Bilirubin Total 0.3 mg/dL (0.0-1.0); Blood Urea Nitrogen 19 mg/dL (9-16); Calcium 9.1 mg/dL (8.4-10.2); Carbon Dioxide 24 mmol/L (22-29); Chloride 108 mmol/L (96-108); Creatinine Clr Calc Pharmacy 105.4; Estimated Glomerular Filt Rate > 60; Ethanol < 10 mg/dL; Glucose Random 129 mg/dL (60-115); Potassium 3.8 mmol/L (3.3-5.1); Sodium 142 mmol/L (135-145); Total Protein 7.1 g/dL (6.5-8.0)
[2024-12-27 02:16] LABS: Alkaline Phosphatase 70 U/L (39-117)
[2024-12-27 02:26] VITALS: RESP 18
[2024-12-27] MEDS: Morphine Sulfate 4 MG/ML CARTRIDGE IVPUSH (02:26)
[2024-12-27 02:55] VITALS: BP 127/79; PULSE 76; RESP 16; TEMP 36.6; O2SAT 98
== END 2024-12-27 03:17 | disposition home or self-care (01) ==
PROVIDERS: Emergency Provider Emergency Medicine Emergency Medical Services
DX: R07.89 Other chest pain (principal); R42 Dizziness and giddiness; M94.0 Chondrocostal junction syndrome [Tietze]; R44.0 Auditory hallucinations; I49.9 Cardiac arrhythmia, unspecified; Z79.899 Other long term (current) drug therapy; Z51.81 Encounter for therapeutic drug level monitoring
CPT/HCPCS: 36415; 80053; 80307; 84484; 85025; 93005; 96374; 96375; 99284; J1885; J2060; J2270

== ENCOUNTER → 2024-12-27 01:06 | Outpatient (BNV) | payer MEDICARE, MEDICAID, SELFPAY | PROVIDERS: Emergency Provider Emergency Medicine Emergency Medical Services; Visit Provider Internal Medicine | DX: I49.9 Cardiac arrhythmia, unspecified (principal); R07.9 Chest pain, unspecified | CPT/HCPCS: 93010 ==

== ENCOUNTER 2024-12-29 09:04 | Outpatient (AMB) | payer MEDICARE, MEDICAID, SELFPAY ==
--- NOTE | 2024-12-29 09:12 | MHC.PC.OV ---
Vital Signs 12/29/24 09:14 Height 5 ft 5 in Weight 226 lb 3.108 oz BMI 37.6 BP 130/78 Blood Pressure Location Lt brachial Position Sitting Pulse 78 Pulse Source Pulse Oximeter Temp 97.1 F Temp Source Temporal Artery Scan Pulse Oximetry (%) 100 Oxygen Delivery Method Room Air Intake Visit Reasons: [facility] 12/27 CP radiating down side Intake Note: Patient is here to follow-up after a visit the emergency department at [facility] on 12/27/24. Requesting medication review Hourly Shift Manager Required: No Manufacturing Lead: Present Accompanied by: STAFF Allergies Sulfa (Sulfonamide Antibiotics) Allergy (Severe, Verified 12/29/24 09:13) CHAVEZ ALICIA REACTION trimethoprim Allergy (Mild, Verified 12/29/24 09:13) UNKNOWN lactose Adverse Reaction (Mild, Verified 12/29/24 09:13) STOMACH UPSET Medication List - Last Reconciled 12/29/24 by Tayler Holt PA-C acetaminophen 650 mg (2 x 325 mg) PO Q4H PRN 90 days albuterol sulfate 90 mcg/actuation 2 puffs inhalation Q6H PRN [[id number] As directed] atorvastatin 10 mg PO BEDTIME [Bilateral custom AFO As directed] bismuth subsalicylate (Pepto-Bismol) 524 mg (30 mL) PO QID PRN 7 days blood sugar diagnostic ([employer] No Coding strips) As directed 2 times per day blood-glucose meter (Liquid Xuch Ultra2 Meter) test once daily blood-glucose meter ([employer] Autocode Blood Glucose Monitoring System) As directed cholecalciferol (vitamin D3) 25 mcg PO DAILY clonidine HCl 0.1 mg PO BEDTIME alvarez.[email or web address],knee,reg,xlrg As directed 10-20 mm HG cyanocobalamin (vitamin B-12) 1,000 mcg PO BEDTIME dextromethorphan polistirex ER (Delsym 12 hour) 10 mL PO Q12H PRN divalproex ER 1,000 mg PO BID empagliflozin (Jardiance) 25 mg PO DAILY esomeprazole magnesium (Nexium) 40 mg PO BEDTIME ferrous sulfate 325 mg PO BID fluoride (sodium) 1.1% (PreviDent 5000 Booster Plus) 1 appl dental BID fluticasone furoate-vilanterol 200-25 mcg/dose (Breo Ellipta) 1 inh inhalation DAILY fluticasone propionate 50 mcg/actuation (Flonase Allergy Relief) 1 spray intranasal BID gabapentin 300 mg PO BID guaifenesin (Siltussin SA) 200 mg PO Q4H PRN [Heat Moldable shoe inserts As directed] hydralazine 50 mg PO TID hydroxyzine pamoate 50 mg PO DAILY PRN lactase (Lactaid) 3,000 units PO TIDWM PRN lancets ([employer] Lancets) As directed check BS twice a day lancets (Liquid Xuch UltraSoft 2 Lancet) test once daily lancing device ([employer] Lancing Device) As directed lidocaine 5% 1 patch topical DAILY PRN lisinopril 5 mg PO DAILY loperamide 2 mg PO Q6H PRN methylcellulose (laxative) (Citrucel) 1,000 mg (2 x 500 mg) PO DAILY 30 days uylfhovz-nurpovvbtVr-wpipiaktX 3.5-400-5,000 et-vjeh-biyd (Triple Antibiotic) 1 appl topical BID nystatin 1 appl topical TID PRN ondansetron 4 mg PO Q6H PRN propranolol 20 mg PO TID@0800,1600,2000 90 days risperidone 3 mg PO BID sennosides (senna) 17.2 mg PO DAILY PRN starch (thickening) (Diafoods Thick-It oral powder) Add thick it powder to food and beverage using enclosed measuring spoon TID 30 days valacyclovir 1,000 mg PO TID Tobacco use date assessed: 12/29/24 Dental Screening Dental Screen Date: 11/12/24 HPI [facility] 12/27 CP radiating down side HPI Details 54-year-old obese male with mental behavioral problem has cerebellar ataxia diabetes mellitus hypercholesterolemia hypertension asthma and atrial flutter coming in for hospital follow up. In review of the notes, patient was seen in [facility] ED 12/27/2024 for chest pain and dizziness and hearing voices.?Workup in the ED was negative and exam consistent with costochondritis advised to follow up with PCP. Patient presents today with a staff member from his snf. He states he is no longer having auditory hallucinations he does regularly follow with a psychiatrist Dr. Martínez and no longer has a therapist because he discontinued the services. He tells us he does not speak with his psychiatrist about the voices that he hears. He is no longer having chest pain. [facility] Medical History Feeling suicidal Tinea cruris Leg swelling Atrial flutter Atrial fib/flutter, transient A-fib Arrhythmia Abnormal EKG Contusion of left ankle Annual physical exam Abdominal pain Back pain Positive colorectal cancer screening using Cologuard test Precordial chest pain Hospital discharge follow-up Chest pain Right ankle pain Musculoskeletal chest pain Left-sided chest pain Back pain Fall Dysphagia Acute kidney injury Gait instability Suicidal ideation COVID-19 Hypomagnesemia Diarrhea Abdominal pain Ankle pain, left Left ankle sprain Seizure disorder Hypertension Anxiety Hyponatremia Cerebellar ataxia Anemia Lactose intolerance Vertigo Asthma Mental disability Type 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 Proteinuria Hyperlipidemia LDL goal <100 Essential hypertension Surgical History Hx of surgical procedure (07/22/24) Hx of colonoscopy History of orchiectomy Family History Father Myocardial infarction CVD (cardiovascular disease) Diabetes mellitus Mother Diabetes mellitus HTN (hypertension) Brother In good health Sister In good health Social History Household Members: Other Household Members Other:: from snf Housing: House Housing Other:: snf [facility] [address] Esteban [phone] Do you presently have visiting nurse or other home services: Yes 75 years or older and lives alone: No Unable to assess alcohol history related to: Unknown Alcohol intake: former 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 Patient Tobacco Use Status: Never used Tobacco Tobacco use type: Cigarette e-Cigarette/Vaping Use: Never Used Second Hand Smoke Exposure: No Advance Directives Date on File: 03/07/21 service: No Current occupational status: disabled Cognitive needs: Yes (walker) Hearing needs: No Vision needs: Yes (glasses) Questionnaire Thrive Questionnaire Date Thrive assessed: 11/12/24 CHANI-7 AMB Questionnaire CHANI-7 Date CHANI - 7 assessed: 11/12/24 Source: Developed by Drs. Wellington López, Monica BRay Bryant and colleagues, with an educational perez from [employer]. Review of Systems Const Denies body aches, Denies chills, Denies fever(s), Denies headache(s) and Denies poor appetite Eyes Reports no additional complaints ENT Denies dizziness and Denies headache(s) Card Denies chest pain, Denies lightheadedness and Denies dyspnea Resp Denies cough and Denies dyspnea GI Denies abdominal pain, Denies nausea and Denies vomiting Reports no additional complaints Musc Reports no additional complaints and Denies abnormal gait Skin/Breast Reports system reviewed and no additional complaints, except as documented Neuro Denies abnormal gait, Denies dizziness and Denies headache(s) Psych Reports no additional complaints Physical exam (Primary Care) Vital Signs: Last Vital Signs Temp 97.1 F 12/29/24 09:14 Pulse 78 12/29/24 09:14 BP 130/78 12/29/24 09:14 Pulse Ox 100 12/29/24 09:14 Oxygen Delivery Method Room Air 12/29/24 09:14 BMI result Body Mass Index 37.6 Tobacco/Smoking Status: Tobacco use Status Tobacco use date assessed 12/29/24 12/29/24 09:14 Patient Tobacco Use Status Never used Tobacco 12/29/24 09:14 Tobacco use type Cigarette 12/29/24 09:14 e-Cigarette/Vaping Use Never Used 12/29/24 09:14 Thrive Assessment: Date of Thrive Assessment Date Thrive assessed 11/12/24 12/29/24 09:14 Const General: cooperative, healthy appearing, comfortable and no acute distress Orientation/consciousness: patient oriented x3 HENMT Head: Yes normocephalic Ears: hearing grossly normal bilaterally General nose exam: Normal external nose present Eyes General: appearance normal, both eyes and all related structures Conjunctivae: conjunctivae normal Neck Neck: Yes full ROM and Yes no lymphadenopathy Resp Effort & Inspection: normal respiratory effort Auscultation: clear to auscultation bilaterally, no crackles, no rales, no rhonchi and no wheezes Cardio Rate: regular rate Rhythm: regular rhythm Skin General skin exam: no rashes or lesions noted Neuro General: patient oriented x3 Gait exam (Neuro): Normal gait present Extrem General: Yes normal to inspection, Yes full ROM and No edema Psych Affect: normal affect Attitude: cooperative Insight: Good insight present (Psych) Judgement: Good judgement present (Psych) Coding Level of Care Code Est Pt Level 3 (65934) Diagnoses Schizophrenia F20.9 Auditory hallucinations R44.0 Gastroesophageal reflux disease, unspecified whether esophagitis present K21.9 Esophagitis presence: esophagitis presence not specified Type 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 E11.29 Hyperlipidemia LDL goal <100 E78.5 Essential hypertension I10 Assessment & Plan Assessment & Plan (1) Schizophrenia: Comment: Dr. Martínez psychiatrist Code(s): F20.9 - Schizophrenia, unspecified Category: Medical Plan: Continue to follow with Dr. Martínez for Psychiatry. I did also recommend reestablishing with a therapist see found this helpful in the past. (2) Auditory hallucinations: Code(s): R44.0 - Auditory hallucinations Category: Medical Plan: Patient denying any auditory hallucinations at this time continue on current medication and follow up with Psychiatry. (3) GERD (gastroesophageal reflux disease): Code(s): K21.9 - Gastro-esophageal reflux disease without esophagitis Category: Medical Qualifiers: Esophagitis presence: esophagitis presence not specified Qualified Code(s): K21.9 - Gastro-esophageal reflux disease without esophagitis Plan: Avoid trigger foods such as citrus, tomato products, soda, caffeine, spicy foods and other foods that may be irritating to your stomach. Avoid laying flat 3-4 hours after eating and elevate the head of the bed 30 degrees to prevent acid from moving into the esophagus. (4) Type 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: Code(s): E11.29 - Type 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 Category: Medical Plan: Decrease the amount of carbohydrates such as pasta, bread, rice, and potatoes and limit the amount of sweets. Although fruits are generally healthy they should be eaten in moderation as they are still high in sugar. Hemoglobin A1c goal of less than 7%. Was restarted on lisinopril by Dr. Sumner at his last visit at a low dose for kidney protection. (5) Hyperlipidemia LDL goal <100: Code(s): E78.5 - Hyperlipidemia, unspecified Category: Medical Plan: Avoid foods that are high in cholesterol such as red meat, fried foods, eggs and baked goods. Triglyceride goal of less than 150 and LDL goal of less than 100. (6) Essential hypertension: Code(s): I10 - Essential (primary) hypertension Category: Medical Plan: Continue on current blood pressure medication. Avoid salt intake and encourage healthy diet and regular exercise. Recently restarted on lisinopril 5 mg Plan This note was constructed using voice recognition software. While every effort has been made to ensure accuracy and exercise science instructor, still areas may have been included sometimes these areas may affect the content or meeting of the given symptoms. Total time spent caring for the patient today was 20 minutes. This includes time spent before the visit reviewing the chart, time spent during the visit, and time spent after the visit and documentation. Medications: New albuterol sulfate 90 mcg/actuation 2 puffs inhalation Q6H PRN 8.5 grams 0RF Wheezing Refilled lisinopril 5 mg PO DAILY 30 tabs 8RF E11.65 - Type 2 diabetes mellitus with hyperglycemia fluticasone furoate-vilanterol 200-25 mcg/dose (Breo Ellipta) 1 inh inhalation DAILY 60 ea 4RF J45.40 - Moderate persistent asthma, uncomplicated
[2024-12-29 09:14] VITALS: BP 130/78; PULSE 78; TEMP 36.2; O2SAT 100; BMI 37.6
--- OUTSIDE RECORDS SUMMARY | 2024-12-29 09:17 | XMS_ITS | Clinical Summary ---
Author Organization 175 [facility] Address [address] [place] [address] Phone Care Team Providers Care Nonfarm Animal Caretaker Name Role Phone Robert Sumner MD Primary Care Provider Social History Tobacco Use Types Packs/Day Years Used Date Smoking Tobacco: Never Assessed Sex and Gender Information Value Date Recorded Sex Assigned at Not on file Legal Sex Male 6:34 PM EST Gender Identity Not on file Sexual Orientation Not on file Plan of Treatment Upcoming Encounters Date Type Department Care Team ([facility] Contact Info) Description 12/29/2024 10:15 AM EST Office Visit Orthopedic Surgery [place] [address] [phone] Jose Bonds, DPM [address] [address] Health Maintenance Due Date Last Done Comments [...] complete this topic RSV Immunization Patients Un ysdni 20 months Aged Out No longer eligible b ased on patient's age to complete this topic Varicella Vaccines Aged Out No longer eligible based on patient's age to complete this topic Insurance MEDICARE MEDICAID - [place] Advance Directives Documents on File Type Date Recorded Patient Terminal Clerk Expl anation Health Care Decision (hx) 12/11/2020 AD VELASQUEZ DIRECTIVE Health Care Decision (hx) 12/11/2020 AD VELASQUEZ DIRECTIVE Health Care Decision (hx) 12/11/2020 AD VELASQUEZ DIRECTIVE Health Care Decision (hx) 12/11/2020 AD VELASQUEZ DIRECTIVE Care Teams Nonfarm Animal Caretaker Relationship Specialty Start Date End Date Robert Sumner MD [address] [place] [address] [address] [facility] [place] [address] PCP - General Internal Medicine 09/24/24
--- OUTSIDE RECORDS SUMMARY | 2024-12-29 09:17 | XMS_ITS | Encounter Summary ---
Author Organization [facility] Address [address] [address] Phone Care Team Providers Care Honing Machine Operator Tool Name Role Phone Robert Sumner MD Primary Care Provider [phone] Encounter Details Date Type Department Care Team ([facility] Contact Info) Description 11/30/2024 Orders Only [facility] [address] [phone] Frantz Luis MD [address] [place] [phone] Chronic kidney disease, stage 2 (mild) [...] Office Visit [facility] [address] [place] [phone] Frantz Luis MD [address] [place] [phone] documented as of this encounter Visit Diagnoses Diagnosis Chronic kidney disease, stage 2 (mild) documented in this encounter Care Teams Honing Machine Operator Tool Relationship Specialty Start Date End Date Robert Sumner MD [facility] [place] [address] [place], [place] PCP - General 11/20/20 documented as of this encounter
--- OUTSIDE RECORDS SUMMARY | 2024-12-29 09:17 | XMS_ITS | Clinical Summary ---
Author Organization [facility] Address [address] [place] [phone] Phone Care Team Providers Care Clinical Exercise Specialist Name Role Phone Robert Sumner MD Primary Care Provider [phone] Allergies Active Allergy Reactions Criticality Noted Date [...] EST [facility] [address] [phone] Chana Schrader ARNP Chronic kidney disease, stage 2 (mild) (Primary Dx); Hyponatremia; Hypertension 11/30/2024 Orders Only [facility] [address] [phone] Frantz Luis MD Chronic kidney disease, stage 2 (mild) 11/29/2024 Refill [facility] [address] [phone] Alda Glass MA from Last 3 Months [...] Office Visit [facility] [address] [phone] Frantz Luis MD [address] [phone] Health Maintenance Due Date Last [...] 8.8 8.7 - 10.7 mg/dL eGFR Non-Afr Syrian 103 10/25/2024 Historical Provider LAB BLOOD ORDERABLES Savannah l Result from Last 3 Months Insurance [place] Care Teams Clinical Exercise Specialist Relationship Specialty Start Date End Date Robert Sumner MD [facility] [place] [address] [place] PCP - General 11/20/20
--- OUTSIDE RECORDS SUMMARY | 2024-12-29 09:17 | XMS_ITS | Encounter Summary ---
Author Organization [facility] Address [address] [facility] [address] [place] [address] Phone Care Team Providers Care Plant Operations Vice President Name Role Phone Robert Sumner MD Primary Care Provider [phone] Reason for Visit * Reason Onset Date Comments Med Refill 11/29/2024 Encounter Details Date Type Department Care Team (Late Contact Info) Description 11/29/2024 Refill [facility] [address] [facility] [address] [place] [address] Alda Glass [place] [address] [facility] [address] [place] [phone] Social History Tobacco Use Types Packs/Day Years [...] EDT Office Visit [facility] [address] [facility] [address] [place] [address] Frantz Luis MD [address] [facility] [address] [place] [address] documented as of this encounter Visit Diagnoses Not on filedocumented in this encounter Care Teams Plant Operations Vice President Relationship Specialty Start Date End Date Robert Sumner MD [facility] [place] [address] [place] PCP - General 11/20/20 documented as of this encounter
--- OUTSIDE RECORDS SUMMARY | 2024-12-29 09:17 | XMS_ITS | Encounter Summary ---
Author Organization [facility] Address [address] [address] Phone Care Team Providers Care Wheel Shop Supervisor Name Role Phone Robert Sumner MD Primary Care Provider [phone] Reason for Visit * Reason Comments Chronic Kidney Disease Encounter Details Date Type Department Care Team ([facility] st Contact Info) Description 12/22/2024 8:45 AM EST Office Visit [facility] [address] [phone] Chana Schrader ARNP [address] [phone] Chronic kidney disease, stage 2 [...] He had severe hyponatremia and was in [facility] hospital at that time. His Demeclocyclinewas stopped and was on PO Urea since- he has stopped taking this as he refused it in retirement . His BP has been well controlled. Patient denies nausea, vomiting, dyspnea, cough, urinary symptoms c/o leg edema - not walking much - mostly improved in morning Loose stools improved He is not able to get mounjaro injections due to insurance -- retirement med list does not have anyGLP1 med The following portions of the patient's chart were reviewed in this encounter and updated as appropriate: Allergies Meds Problems Med Hx Surg Hx Fam Hx EMR: Scour Prevention/ [employer]/ [employer] Past Medical History: Diagnosis Date Anxiety disorder [...] urea Hypertension- His BP is controlled at retirement - at times even low. Blood pressure [...] urine labs - recommend avoid coffee as med care manager states he has these symptoms on/off with [...] Visit [facility] [address] [phone] Frantz Luis MD [address] [phone] Scheduled Orders Name Type Priority Associated Diagnoses [...] Hypertension documented in this encounter Care Teams Wheel Shop Supervisor Relationship Specialty Start Date End Date Robert Sumner MD [address] [place], [place] PCP - General 11/20/20 documented as of this encounter
== END 2024-12-29 09:45 | disposition home or self-care (01) ==
DX: F20.9 Schizophrenia, unspecified (principal); R44.0 Auditory hallucinations; K21.9 Gastro-esophageal reflux disease without esophagitis; E11.29 Type 2 diabetes mellitus with other diabetic kidney complication; E78.5 Hyperlipidemia, unspecified; I10 Essential (primary) hypertension

== ENCOUNTER → 2024-12-29 09:04 | Outpatient (BNVA) | payer MEDICARE, MEDICAID, SELFPAY | DX: F20.9 Schizophrenia, unspecified (principal); K21.9 Gastro-esophageal reflux disease without esophagitis; E11.29 Type 2 diabetes mellitus with other diabetic kidney complication; E78.5 Hyperlipidemia, unspecified; I10 Essential (primary) hypertension | CPT/HCPCS: 99212 ==

== ENCOUNTER 2025-01-04 22:23 | Emergency (ER) | payer MEDICARE, MEDICAID, SELFPAY ==
[2025-01-04 22:45] VITALS: BP 149/65; PULSE 67; RESP 18; TEMP 36.7; O2SAT 100
[2025-01-04 22:50] VITALS: BP 140/82; BP 149/65; PULSE 67; PULSE 72; RESP 18; TEMP 36.7; O2SAT 100; O2SAT 99; BMI 41.6
[2025-01-04 23:19] LABS: MANUAL DIFF FLAG NO
[2025-01-04 23:23] LABS: Basophils Percent Auto 0.5 % (0-2); Eosinophils Absolute Auto 0.1 X10*3/uL (0.0-0.4); Hematocrit 37.4 % (42.0-52.0); Hemoglobin 12.8 g/dl (14.0-18.0); Imm Gran Abs Auto 0.04 X10*3/uL (0.00-0.03); Imm Gran Pct Auto 0.7 % (0.0-0.4); Lymphocytes Absolute Auto 1.9 X10*3/uL (1.2-4.9); Lymphocytes Percent Auto 31.3 % (20-40); Mean Corpuscular HGB Conc 34.2 g/dl (31.0-36.0); Mean Corpuscular Hemoglobin 30.3 pg (27.0-33.0); Mean Corpuscular Volume 88.6 fL (80.0-98.0); Mean Platelet Volume 9.9 fL (9.4-12.4); Monocytes Absolute Auto 0.5 X10*3/uL (0.1-1.2); Monocytes Percent Auto 8.5 % (2-11); Neutrophils Absolute Auto 3.5 x10*3/uL (2.0-8.3); Platelet Count 104 X10*3/uL (160-400); Red Blood Count 4.22 X10*6/uL (4.60-5.80); Red Cell Distribution Width 12.4 % (11.0-16.0)
[2025-01-04 23:42] LABS: Alanine Aminotransferase 12 U/L (0-40); Albumin Level 3.5 g/dL (3.5-5.0); Anion Gap 13 (12-20); Aspartate Amino Transferase 15 U/L (5-37); Bilirubin Total 0.2 mg/dL (0.0-1.0); Blood Urea Nitrogen 25 mg/dL (9-16); Calcium 8.7 mg/dL (8.4-10.2); Carbon Dioxide 24 mmol/L (22-29); Chloride 108 mmol/L (96-108); Creatinine Clr Calc Pharmacy 102.4; Estimated Glomerular Filt Rate > 60; Glucose Random 107 mg/dL (60-115); Sodium 141 mmol/L (135-145); Total Protein 6.7 g/dL (6.5-8.0)
[2025-01-04 23:50] LABS: Alkaline Phosphatase 69 U/L (39-117)
[2025-01-04 23:50] LABS: Amphetamine Screen Urine Not Detected (Not Detect); Barbiturates, Urine Not Detected (Not Detect); Benzodiazepines Screen Urine Not Detected (Not Detect); Buprenorphine Scr Not Detected (Not Detect); Cannabinoid Screen Urine Not Detected (Not Detect); Cocaine Screen Urine Not Detected (Not Detect); Fentanyl, urine Not Detected (Not Detect); Methadone Screen, Urine Not Detected (Not Detect); Opiate Screen Urine Not Detected (Not Detect); Oxycodone Screen Urine Not Detected (Not Detect); Phencyclidine Screen Urine Not Detected (Not Detect)
--- NOTE | 2025-01-05 03:36 | ED.PSYCH ---
HPI - Psych General Chief Complaint: Psychiatric Symptoms Stated Complaint: from grp home, feels unsafe, wants to hurt himself Time Seen by Provider: 01/05/25 00:47 Source: patient Limitations: no limitations History of Present Illness ED Provider: Kim Roper PA-C HPI Narrative: 54-year-old male with a history of schizophrenia, prior psychosis, cognitive developmental delay,hypertension, hyperlipidemia, diabetes type 2, asthma, GERD, peripheral vascular disease, chronic kidney disease, cerebral ataxia, dysphagia, a flutter, who presents from his [facility] with a SI and HI. Patient states he no longer feels safe at his fci, it does not want to live there anymore. Patient states he is having thoughts of self-harm, with a plan to choke himself , he also has a plan to choke others . Related Data Home Medications ?Medication ?Instructions ?Recorded ?Confirmed divalproex 500 mg tablet,extended 1,000 mg PO BID 06/10/23 12/29/24 release 24 hr gabapentin 100 mg capsule 300 mg PO BID 06/10/23 12/29/24 risperidone 3 mg tablet 3 mg PO BID 06/10/23 12/29/24 guaifenesin 100 mg/5 mL oral 200 mg PO Q4H PRN Cough 07/29/23 12/29/24 liquid (Siltussin SA) ondansetron 4 mg disintegrating 4 mg PO Q6H PRN Nausea And Vomiting 07/29/23 12/29/24 tablet hydroxyzine pamoate 50 mg capsule 50 mg PO DAILY PRN 10/13/23 12/29/24 AGITATION/ANXIETY sennosides 8.6 mg tablet (senna) 17.2 mg PO DAILY PRN Constipation 12/23/23 12/29/24 clonidine HCl 0.1 mg tablet 0.1 mg PO BEDTIME 07/09/24 12/29/24 Previous Rx's ?Medication ?Instructions ?Recorded lancets 30 gauge (OneTouch #100 ea 06/17/23 UltraSoft 2 Lancet) bismuth subsalicylate 262 mg/15 mL 524 mg (30 mL) PO QID PRN diarrhea 08/01/23 oral suspension (Pepto-Bismol) 7 days #1,200 mL nystatin 100,000 unit/gram topical 1 appl topical TID PRN Rash #60 08/04/23 powder grams lactase 3,000 unit tablet (Lactaid) 3,000 unit PO TIDWM PRN Lactose 11/14/23 Intolerance #30 tabs acetaminophen 325 mg tablet 650 mg (2 x 325 mg) PO Q4H PRN 02/04/24 fever or pain 90 days #180 tabs methylcellulose (laxative) 500 mg 1,000 mg (2 x 500 mg) PO DAILY 30 02/26/24 tablet (Citrucel) days #60 tabs starch (thickening) (Diafoods See Rx Instructions PO .COMPLEX 30 03/17/24 Thick-It oral powder) days #850 grams blood-glucose meter (BellaDatiuch #1 ea 04/07/24 Ultra2 Meter) blood-glucose meter (Indeedy #1 ea 04/07/24 Autocode Blood Glucose Monitoring System) lancets 28 gauge (Paperhater.com Lancets) #200 ea 04/07/24 lancing device (Paperhater.com Lancing #1 ea 04/07/24 Device) fluticasone propionate 50 1 spray intranasal BID #16 grams 06/17/24 mcg/actuation nasal spray,suspension (Flonase Allergy Relief) blood sugar diagnostic (Paperhater.com No #100 ea 07/19/24 Coding strips) alvarez.stocking,knee,reg,xlrg #12 ea 07/19/24 [id number] #1 ea 09/03/24 Bilateral custom AFO #2 ea 09/03/24 Heat Moldable shoe inserts #2 ea 09/03/24 dextromethorphan polistirex 30 10 ml PO Q12H PRN cough #89 mL 10/13/24 mg/5 mL oral susp ext.release 12hr (Delsym 12 hour) fluoride (sodium) 1.1 % dental 1 appl dental BID #100 mL 10/13/24 paste (PreviDent 5000 Booster Plus) valacyclovir 1 gram tablet 1,000 mg PO TID #21 tabs 10/13/24 cyanocobalamin (vitamin B-12) 1,000 mcg PO BEDTIME #90 tabs 10/30/24 1,000 mcg tablet lidocaine 5 % topical patch 1 patch topical DAILY PRN pain #15 11/12/24 ea neomycin-bacitracn Zn-polymyxn 3.5 1 appl topical BID #10 ea 11/25/24 mg-400 unit-5,000 unit top oint pkt (Triple Antibiotic) atorvastatin 10 mg tablet 10 mg PO BEDTIME #90 tabs 12/01/24 ferrous sulfate 325 mg (65 mg 325 mg PO BID #180 tabs 12/01/24 iron) tablet propranolol 20 mg tablet 20 mg PO TID@0800,1600,2000 90 12/01/24 days #270 tabs loperamide 2 mg capsule 2 mg PO Q6H PRN loose stool #30 12/14/24 caps cholecalciferol (vitamin D3) 25 25 mcg PO DAILY #30 tabs 12/28/24 mcg (1,000 unit) tablet empagliflozin 25 mg tablet 25 mg PO DAILY #30 tabs 12/28/24 (Jardiance) esomeprazole magnesium 40 mg 40 mg PO BEDTIME #28 caps 12/28/24 capsule,delayed release (Nexium) hydralazine 50 mg tablet 50 mg PO TID #90 tabs 12/28/24 albuterol sulfate 90 mcg/actuation 2 puff inhalation Q6H PRN Wheezing 12/29/24 aerosol inhaler #8.5 grams fluticasone furoate 200 1 inh inhalation DAILY #60 ea 12/29/24 mcg-vilanterol 25 mcg/dose inhalation powder (Breo Ellipta) lisinopril 5 mg tablet 5 mg PO DAILY #30 tabs 12/29/24 Allergies Allergy/AdvReac Type Severity Reaction Status Date / Time Sulfa (Sulfonamide Allergy Severe CHAVEZ Verified 01/04/25 22:51 Antibiotics) ALICIA REACTION trimethoprim Allergy Mild UNKNOWN Verified 01/04/25 22:51 lactose AdvReac Mild STOMACH Verified 01/04/25 22:51 UPSET Review of Systems Review of Systems: Yes all other systems are reviewed and are negative Constitutional: Constitutional: Denies fatigue and Denies fever(s) Cardiovascular: Cardiovascular: Denies chest pain and Denies dyspnea Respiratory: Respiratory: Denies dyspnea Gastrointestinal: Gastrointestinal: Denies abdominal pain, Denies nausea and Denies vomiting Musculoskeletal: Musculoskeletal: Denies back pain Endocrine: Endocrine: Denies fatigue [facility] Past Medical History Attestation statement: The following information was validated with the patient. Medical History Feeling suicidal Tinea cruris Leg swelling Atrial flutter Atrial fib/flutter, transient A-fib Arrhythmia Abnormal EKG Contusion of left ankle Annual physical exam Abdominal pain Back pain Positive colorectal cancer screening using Cologuard test Precordial chest pain Hospital discharge follow-up Chest pain Right ankle pain Musculoskeletal chest pain Left-sided chest pain Back pain Fall Dysphagia Acute kidney injury Gait instability Suicidal ideation COVID-19 Hypomagnesemia Diarrhea Abdominal pain Ankle pain, left Left ankle sprain Seizure disorder Hypertension Anxiety Hyponatremia Cerebellar ataxia Anemia Lactose intolerance Vertigo Asthma Mental disability Type 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 Proteinuria Hyperlipidemia LDL goal <100 Essential hypertension Surgical History Hx of surgical procedure (07/22/24) Hx of colonoscopy History of orchiectomy Family History Family History Father Myocardial infarction CVD (cardiovascular disease) Diabetes mellitus Mother Diabetes mellitus HTN (hypertension) Brother In good health Sister In good health Social History Social History Household Members: Other Household Members Other:: from fci Housing: House Housing Other:: fci [facility] [address] [phone] Do you presently have visiting nurse or other home services: Yes Unable to assess alcohol history related to: Unknown Alcohol intake: former 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 Patient Tobacco Use Status: Never used Tobacco Tobacco use type: Cigarette Smoked in Last 30 Days: No e-Cigarette/Vaping Use: Never Used Second Hand Smoke Exposure: No Use of substances other than those prescribed or required for medical reasons: No Advance Directives: Yes Advance Directives on File: Yes Advance Directives Date on File: 03/07/21 Do you have a plan to hurt others: Specific and Vague service: No Current occupational status: disabled Cognitive needs: Yes (walker) Hearing needs: No Vision needs: Yes (glasses) Physical Exam Vital Signs: Vital Signs: Last Vital Signs Temp 98.5 F 01/05/25 06:43 Pulse 78 01/05/25 06:43 Resp 14 01/05/25 06:43 BP 139/70 01/05/25 06:43 Pulse Ox 97 01/05/25 06:43 O2 Del Method Room Air 01/05/25 06:43 BMI result Body Mass Index 41.6 Const: Other: Alert Orientation/consciousness: patient oriented x3 Resp: Effort & Inspection: normal respiratory effort Cardio: Other: normal peripheral perfusion Skin: Other: warm dry no rash Neuro: General: patient oriented x3, no focal motor deficits and CN's II-XI intact bilaterally Psych: Other: cooperative here in the ER Course Reevaluation(s) Reevaluation #1: Physician observation continued. Care team was consulted however Ernestina Gunter from care team reported that a few years ago was determined that the care team does not see him because he is very dependent personality disorder and it is not good for him to be evaluated by the care team. He was a fci, he has no risk history. I discussed this with my attending physician, Dr. Loaiza. patient stable for discharge. Time: 09:35 Medical Decision Making Medical Decision Making MDM Narrative: 54-year-old male with a history of schizophrenia, prior psychosis, cognitive developmental delay,hypertension, hyperlipidemia, diabetes type 2, asthma, GERD, peripheral vascular disease, chronic kidney disease, cerebral ataxia, dysphagia, a flutter, who presents from his fci with a SI and HI. Patient states he no longer feels safe at his fci, it does not want to live there anymore. Patient states he is having thoughts of self-harm, with a plan to choke himself , he also has a plan to choke others . problem: Numerous medical conditions, psychiatric illness History: Per patient I have considered the following differential diagnoses: SI, HI, decompensated psychiatric illness, drug / alcohol intoxication Plan: Screening labs including U tox and drug screen we will be obtained, the patient will be referred to the care team, I have independently reviewed the following tests: Labs: No leukocytosis, not anemic, no electrolyte abnormality, drug screen negative, ethanol neg Lab Data 01/04/25 23:15 01/04/25 23:15 Labs: Lab Results 01/04/25 01/04/25 01/05/25 Range/Units 23:15 23:33 07:55 WBC 6.0 (4.8-10.8) X10*3/uL RBC 4.22 L (4.60-5.80) X10*6/uL Hgb 12.8 L (14.0-18.0) g/dl Hct 37.4 L (42.0-52.0) % MCV 88.6 (80.0-98.0) fL MCH 30.3 (27.0-33.0) pg MCHC 34.2 (31.0-36.0) g/dl RDW 12.4 (11.0-16.0) % Plt Count 104 L (160-400) X10*3/uL MPV 9.9 (9.4-12.4) fL Immature Gran % (Auto) 0.7 H (0.0-0.4) % Neut % (Auto) 58.0 (45-73) % Lymph % (Auto) 31.3 (20-40) % Villalba % (Auto) 8.5 (2-11) % Eos % (Auto) 1.0 (0-4) % Baso % (Auto) 0.5 (0-2) % Lymph # (Auto) 1.9 (1.2-4.9) X10*3/uL Villalba # (Auto) 0.5 (0.1-1.2) X10*3/uL Eos # (Auto) 0.1 (0.0-0.4) X10*3/uL Baso # (Auto) 0.0 (0.0-0.2) X10*3/uL Abs Immat Gran (auto) 0.04 H (0.00-0.03) X10*3/uL Absolute Neuts (auto) 3.5 (2.0-8.3) x10*3/uL Absolute Nucleated RBC 0.000 (0.0-0.012) X10*3/uL Nucleated RBC % (auto) 0.0 (0.0-0.2) /100WBC Sodium 141 (135-145) mmol/L Potassium 4.0 (3.3-5.1) mmol/L Chloride 108 (96-108) mmol/L Carbon Dioxide 24 (22-29) mmol/L Anion Gap 13 (12-20) BUN 25 H (9-16) mg/dL Creatinine 0.97 (0.5-1.4) mg/dL Estim Creat Clear Calc 102.4 Estimated GFR > 60 POC Glucose 157 H (60-115) mg/dL Random Glucose 107 (60-115) mg/dL Calcium 8.7 (8.4-10.2) mg/dL Total Bilirubin 0.2 (0.0-1.0) mg/dL AST 15 (5-37) U/L ALT 12 (0-40) U/L Alkaline Phosphatase 69 (39-117) U/L Total Protein 6.7 (6.5-8.0) g/dL Albumin 3.5 (3.5-5.0) g/dL Urine Opiates Screen Not Detected (Not Detect) Ur Buprenorphine Scrn Not Detected (Not Detect) ng/mL Ur Oxycodone Screen Not Detected (Not Detect) ng/mL Urine Methadone Screen Not Detected (Not Detect) ng/mL Urine Fentanyl Screen Not Detected (Not Detect) Ur Barbiturates Screen Not Detected (Not Detect) Ur Phencyclidine Scrn Not Detected (Not Detect) Ur Amphetamines Screen Not Detected (Not Detect) U Benzodiazepines Scrn Not Detected (Not Detect) Urine Cocaine Screen Not Detected (Not Detect) U Marijuana (THC) Screen Not Detected (Not Detect) Discharge Plan Discharge Clinical Impression: Suicidal ideation, Homicidal ideation Patient Disposition: Still a Patient Additional Instructions: Patient was seen in the emergency department. His workup today was reassuring. Please keep close eye on patient, and watch for any changes. If any new or worsening symptoms occur, please seek emergent care. Prescriptions: No Action (DME) lancets [OneTouch UltraSoft 2 Lancet] 30 gauge misc See Rx Instructions .Route Qty: 100 5RF Rx Instructions: test once daily nystatin 100,000 unit/gram powder 1 appl TOPICAL TID PRN (Reason: Rash) Qty: 60 0RF Citrucel 500 mg tablet 1,000 mg PO DAILY 30 Days Qty: 60 2RF Diafoods Thick-It Powder See Rx Instructions PO .COMPLEX 30 Days Qty: 850 12RF Rx Instructions: Add thick it powder to food and beverage using enclosed measuring spoon TID (DME) blood-glucose meter [Prodigy Autocode Monitor Syst] Misc See Rx Instructions .Route Qty: 1 0RF Rx Instructions: As directed fluticasone propionate [Flonase Allergy Relief] 50 mcg/actuation spray,suspension 1 spray intranasal BID Qty: 16 12RF Rx Instructions: administer into each nostril (DME) [id number] XW 3 See Rx Instructions .Route .MEDSUPPLY Qty: 1 0RF Rx Instructions: As directed (DME) Heat Moldable shoe inserts See Rx Instructions .Route .MEDSUPPLY Qty: 2 0RF Rx Instructions: As directed (DME) Bilateral custom AFO See Rx Instructions .Route .MEDSUPPLY Qty: 2 0RF Rx Instructions: As directed dextromethorphan polistirex [Delsym 12 hour] 30 mg/5 mL suspension,extended rel 12 hr 10 ml PO Q12H PRN (Reason: cough) Qty: 89 0RF fluoride (sodium) [PreviDent 5000 Booster Plus] 1.1 % paste 1 appl DENTAL BID Qty: 100 0RF cyanocobalamin (vitamin B-12) 1,000 mcg tablet 1,000 mcg PO BEDTIME Qty: 90 0RF Triple Antibiotic 3.5-400-5,000 rd-amth-fnzl ointment in packet 1 appl TOPICAL BID Qty: 10 7RF ferrous sulfate 325 mg (65 mg iron) tablet 325 mg PO BID Qty: 180 0RF propranolol 20 mg tablet 20 mg PO TID@0800,1600,2000 90 Days Qty: 270 0RF atorvastatin 10 mg tablet 10 mg PO BEDTIME Qty: 90 0RF loperamide 2 mg capsule 2 mg PO Q6H PRN (Reason: loose stool) Qty: 30 0RF esomeprazole magnesium [Nexium] 40 mg capsule,delayed release(DR/EC) 40 mg PO BEDTIME Qty: 28 0RF hydralazine 50 mg tablet 50 mg PO TID Qty: 90 0RF cholecalciferol (vitamin D3) 25 mcg (1,000 unit) tablet 25 mcg PO DAILY Qty: 30 0RF Jardiance 25 mg tablet 25 mg PO DAILY Qty: 30 0RF hydroxyzine pamoate 50 mg capsule 50 mg PO DAILY PRN (Reason: AGITATION/ANXIETY) clonidine HCl 0.1 mg Tablet 0.1 mg PO BEDTIME valacyclovir 1 gram tablet 1,000 mg PO TID Qty: 21 0RF risperidone 3 mg tablet 3 mg PO BID divalproex 500 mg tablet extended release 24 hr 1,000 mg PO BID gabapentin 100 mg capsule 300 mg PO BID guaifenesin [Siltussin SA] 100 mg/5 mL Liquid 200 mg PO Q4H PRN (Reason: Cough) ondansetron 4 mg Tablet,Disintegrating 4 mg PO Q6H PRN (Reason: Nausea And Vomiting) sennosides [senna] 8.6 mg Tablet 17.2 mg PO DAILY PRN (Reason: Constipation) bismuth subsalicylate [Pepto-Bismol] 262 mg/15 mL suspension 524 mg PO QID PRN (Reason: diarrhea) 7 Days Qty: 1200 0RF lactase [Lactaid] 3,000 unit tablet 3,000 unit PO TIDWM PRN (Reason: Lactose Intolerance) Qty: 30 11RF Rx Instructions: take at the start of drinking milk only acetaminophen 325 mg tablet 650 mg PO Q4H PRN (Reason: fever or pain) 90 Days Qty: 180 2RF (DME) alvarez.stocking,knee,reg,xlrg Misc See Rx Instructions .Route Qty: 12 0RF Rx Instructions: As directed 10-20 mm HG (DME) Prodigy No Coding Strip See Rx Instructions .Route Qty: 100 11RF Rx Instructions: As directed 2 times per day (DME) lancing device [Prodigy Lancing Device] Misc See Rx Instructions .Route Qty: 1 0RF Rx Instructions: As directed (DME) lancets [Prodigy Lancets] 28 gauge misc See Rx Instructions .Route Qty: 200 3RF Rx Instructions: As directed check BS twice a day (DME) blood-glucose meter [OneTouch Ultra2 Meter] Misc See Rx Instructions .Route Qty: 1 0RF Rx Instructions: test once daily lidocaine 5 % adhesive patch,medicated 1 patch topical DAILY PRN (Reason: pain) Qty: 15 0RF Rx Instructions: leave on most painful area for 4-5 hours. albuterol sulfate 90 mcg/actuation HFA aerosol inhaler 2 puff INHALATION Q6H PRN (Reason: Wheezing) Qty: 8.5 0RF fluticasone furoate-vilanterol [Breo Ellipta] 200-25 mcg/dose blister with device 1 inh inhalation DAILY Qty: 60 4RF lisinopril 5 mg tablet 5 mg PO DAILY Qty: 30 8RF Interventions: [place]-Suicide Risk Severity Scale Last Done: 01/04/25 22:53 Print Language: German
[2025-01-05 06:43] VITALS: BP 139/70; PULSE 78; RESP 14; TEMP 36.9; O2SAT 97
[2025-01-05 08:01] LABS: Glucose, Whole Blood 157 mg/dL (60-115)
--- NOTE | 2025-01-05 08:54 | PC.NURSE ---
akash from care team pj saying that they will not bee see for evaluation and that he is cleared to go back to the jail, called the jail and spoken with Oswaldo and someone will be coming to pick him up
[2025-01-05 09:45] VITALS: BP 139/70; PULSE 78; RESP 14; TEMP 36.9; O2SAT 97
== END 2025-01-05 09:46 | disposition still patient (30) ==
PROVIDERS: Emergency Provider Emergency Medicine Emergency Medical Services
DX: R45.851 Suicidal ideations (principal); R45.850 Homicidal ideations; E11.9 Type 2 diabetes mellitus without complications; I10 Essential (primary) hypertension; Z79.899 Other long term (current) drug therapy; Z51.81 Encounter for therapeutic drug level monitoring
CPT/HCPCS: 36415; 80053; 80307; 82947; 85025; 99284; 99285

== ENCOUNTER 2025-01-13 08:50 | Outpatient (REF) | payer MEDICARE, MEDICAID, SELFPAY ==
--- OUTSIDE RECORDS SUMMARY | 2025-01-13 09:34 | XMS_ITS | Encounter Summary ---
Author Organization [facility] Address [id number] [place] [id number] Care Team Providers Care Wire Puller Name Role Phone Robert Sumner MD Primary Care Provider [phone] Encounter Details Date Type Department Care Team (Late st Contact Info) Description 12/29/2024 Telephone Orthopedic Surgery - [place] [address] [address] Jose Bonds DPM [address] [phone] Social History Tobacco Use Types Packs/Day Years Used Date Smoking Tobacco: Never Assessed Sex and Gender Information Value Date Recorded Sex Assigned at Not on file Legal Sex Male 6:34 PM EST Gender Identity Not on file Sexual Orientation Not on file documented as of this encounter Progress Notes * Elis Leon - 12/29/2024 11:05 AM EST Please state in office note that Raulito is diabetic and script for the diabetic shoes so insurance will approve them documented in this encounter Plan of Treatment Upcoming Encounters Date Type Department Care Team (Late st Contact Info) Description 03/30/2025 10:30 AM EDT Office Visit Orthopedic Surgery [facility] [address] [phone] Jose Bonds DPM [address] [phone] documented as of this encounter Visit Diagnoses Not on filedocumented in this encounter Care Teams Wire Puller Relationship Specialty Start Date End Date Robert Sumner MD [address] [place] [address] [address] [facility] [place] [address] PCP - General Internal Medicine 09/24/24 documented as of this encounter
--- OUTSIDE RECORDS SUMMARY | 2025-01-13 09:34 | XMS_ITS | Clinical Summary ---
Author Organization [address] [facility] Address [address] [place] [address] Phone Care Team Providers Care Data Integration Developer Name Role Phone Robert Sumner MD Primary Care Provider [phone] Allergies Active Allergy Reactions Criticality Noted Date Comments Sulfa (Sulfonamide Antibiotics) 12/11 Encounters Date Type Department Care Team Description 12/29/2024 10:15 AM EST Office Visit Orthopedic [facility] [address] [phone] Jose Bonds DPM Generalized muscle weakness (Primary Dx); Acquired bilateral foot drop; Dermatophytosis of nail; Pain in toe of right foot; Pain in toe of left foot; Diabetic mononeuropathy simplex (CMS/HCC); Type II diabetes mellitus with peripheral circulatory disorder (CMS/HCC); Metatarsalgia of both feet 12/29/2024 Telephone Orthopedic [facility] [address] [phone] Jose Bonds DPM from Last 3 Months Social History Tobacco Use Types Packs/Day Years Used Date Smoking Tobacco: Never Assessed Sex and Gender Information Value Date Recorded Sex Assigned at Not on file Legal Sex Male 6:34 PM EST Gender Identity Not on file Sexual Orientation Not on file Last Filed Vital Signs Vital Sign Reading Time Taken Comments Blood Pressure - - Pulse - - Temperature - - Respiratory Rate - - Oxygen Saturation - - Inhaled Oxygen Concentration - - Weight 103 kg (226 lb) 12/29/2024 10:57 AM EST Height 165.1 cm (5' 5 ) 12/29/2024 10:57 AM EST Body Mass Index 37.61 12/29/2024 10:57 AM EST Plan of Treatment Upcoming Encounters Date Type Department Care Team (Late st Contact Info) Description 03/30/2025 10:30 AM EDT Office Visit Orthopedic Surgery - [place] 250 175 [facility] 250 [place] [address] Jose Bonds, DPM 175 [facility] 250 [place] [address] Health Maintenance Due Date Last Done Comments Diabetes: Annual GFR (Glomerular Filtration Rate) 1971 Diabetes: Annual Foot Exam 1981 Diabetes: Annual Retina Eye Exam 1981 DTaP,Tdap,and Td Vaccines (1 - Tdap) 1990 Hepatitis B Vaccines (1 of 3 - 19+ 3-dose series) 1990 Pneumococcal Vaccine: 50+ Years (2 of 2 - PCV) 02/18/2019 02/18/2018 Pneumococcal Vaccine: Pediatrics (0 to 5 Years) and At-Risk Patients (6 to 64 Years) (2 of 2 - PCV) 02/18/2019 02/18/2018 Zoster Vaccines (1 of 2) 2021 Cholesterol Screening (Lipid Panel) 10/12/2022 Depression Screening 10/12/2022 HIV Screening 10/12/2022 Hepatitis C Screening 10/12/2022 Medicare Annual Wellness Visit 10/12/2022 Social Influencers of Health Screening 10/12/2022 COVID-19 Vaccine ( season) 2024 10/30/2021, 01/15/2021, 12/25/2020 Colorectal Cancer Screening: FIT-DNA (Cologuard) 10/02/2024 10/02/2021 Diabetes: Annual Urine Albumin-Creatinine Ratio (uACR) 12/29/2024 Diabetes: Blood Sugar Control Test (HGBA1C) 12/29/2024 Hypertension/CHF/CAD Annual BMP Blood Test 12/29/2024 Influenza Vaccine Completed 12/24/2024, , 08/31/2021, Additional history exists HIB Vaccines Aged Out No longer eligi [...] to complete this topic RSV Immunization Patients Under 20 months Aged Out No longer eligible based on patient's age to complete this topic Varicella Vaccines Aged Out No longer eligible based on patient's age to complete this topic Insurance MEDICARE [place]ICAID - [place] Advance Directives Documents on File Type Date Recorded 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
--- OUTSIDE RECORDS SUMMARY | 2025-01-13 09:34 | XMS_ITS | Encounter Summary ---
Author Organization [facility] Address [address] [address] Phone Care Team Providers Care Vet Assistant Name Role Phone Robert Sumner MD Primary Care Provider [phone] Reason for Visit * Reason Comments Chronic Kidney Disease Encounter Details Date Type Department Care Team ([facility] st Contact Info) Description 12/22/2024 8:45 AM EST Office Visit [facility] [address] [phone] Chana Schrader ARNP [address] [address] Chronic kidney disease, stage 2 [...] He had severe hyponatremia and was in [facility] hospital at that time. His Demeclocyclinewas stopped and was on PO Urea since- he has stopped taking this as he refused it in intermediate . His BP has been well controlled. Patient denies nausea, vomiting, dyspnea, cough, urinary symptoms c/o leg edema - not walking much - mostly improved in morning Loose stools improved He is not able to get mounjaro injections due to insurance -- intermediate med list does not have anyGLP1 med The following portions of the patient's chart were reviewed in this encounter and updated as appropriate: Allergies Meds Problems Med Hx Surg Hx Fam Hx EMR: [employer]/ [employer]/ [employer] Past Medical History: Diagnosis Date Anxiety disorder [...] urea Hypertension- His BP is controlled at intermediate - at times even low. Blood pressure [...] urine labs - recommend avoid coffee as rn medicare states he has these symptoms on/off with [...] Visit [facility] [address] [phone] Frantz Luis MD [address] [phone] Scheduled Orders Name Type Priority Associated Diagnoses [...] Hypertension documented in this encounter Care Teams Vet Assistant Relationship Specialty Start Date End Date Robert Sumner MD [address] [place], [place] PCP - General 11/20/20 documented as of this encounter
--- OUTSIDE RECORDS SUMMARY | 2025-01-13 09:34 | XMS_ITS | Clinical Summary ---
Author Organization [facility] Address [address] [place] [phone] Phone Care Team Providers Care Research & Analytics Manager Name Role Phone Robert Sumner MD Primary Care Provider [phone] Allergies Active Allergy Reactions Criticality Noted Date [...] EST Office Visit [facility] [address] [phone] Chana Schrader ARNP Chronic kidney disease, stage 2 (mild) (Primary Dx); Hyponatremia; Hypertension 11/30/2024 Orders Only [facility] [address] [phone] Frantz Luis MD Chronic kidney disease, stage 2 (mild) 11/29/2024 Refill [facility] [address] [phone] Alda Glass MA from Last 3 Months [...] Office Visit [facility] [address] [address] Frantz Luis MD [address] [address] Health Maintenance Due Date Last [...] 8.8 8.7 - 10.7 mg/dL eGFR Non-Afr Dutch 103 10/25/2024 Historical Provider LAB BLOOD ORDERABLES Savannah l Result from Last 3 Months Insurance [place] Care Teams Research & Analytics Manager Relationship Specialty Start Date End Date Robert Sumner MD [facility] [place] [address] [place] PCP - General 11/20/20
--- OUTSIDE RECORDS SUMMARY | 2025-01-13 09:34 | XMS_ITS | Encounter Summary ---
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 Robert Sumner MD [address] [place] [address] [address] [facility] [place] [address] Phone: tel: fax: Orthopedic Surgery [facility] [address] [address] Phone: tel: fax: Referral ID Status Reason Start Date Expiration Date V isits Requested Visits Authorized [id number] Closed Consult and Treat 09/24/2024 09/24/2025 1 1 Encounter Details Date Type Department Care Team (Late st Contact Info) Description 12/29/2024 10:15 AM EST Office Visit Orthopedic Surgery [facility] [address] [address] Jose Bonds DPM [address] [address] Generalized muscle weakness (Primary Dx); Acquired bilateral foot drop; Dermatophytosis of nail; Pain in toe of right foot; Pain in toe of left foot; Diabetic mononeuropathy simplex (CMS/HCC); Type II diabetes mellitus with peripheral circulatory disorder (CMS/HCC); Metatarsalgia of both feet Social History Tobacco Use Types Packs/Day Years [...] Mass Index 37.61 12/29/2024 10:57 AM EST documented in this encounter Progress Notes * Jose Bonds DPM - 12/29/2024 10:15 AM EST Last PCP visit:Referring MD: 09/20/2024 Tayler Holt PAC IDENTIFIER: Duane is a 54 y.o. year old male who presents for consultation. CC: Foot pain HPI: Presents today for evaluation of his feet he has difficulty walking states he often falls his Diffley lifting his feet up he states he has some strength but feels very weak he is to have braces but no longer has been utilizing themDiffley with his shoe gear as well reports his nails are longer painful thickened is a type II diabetic endorses numbness of both feet ROS: GENERAL: Pt denies nausea, fever, vomiting, chills, or shortness of breath. Pt in NAD. CARDIOLOGY: pt denies chest pain, palpitations LUNGS: pt denies shortness of breath MUSCULOSKELETAL: See HPI, otherwise no joint pain or swelling, back pain, or muscle pain. SKIN: see HPI, otherwise no lesions, rash or itching NEURO: No persistent headache, weakness or numbness The remainder of the review of systems is noncontributory PAST MEDICAL HISTORY: There is no problem list on file for this patient. Type 2 diabetes hypertension myocardial infarction peripheral vascular disease SOCIAL HISTORY: Social History Tobacco Use Smoking status: Not on file Smokeless tobacco: Not on file Substance Use Topics Alcohol use: Not on file ACTIVE MEDICATIONS: No outpatient medications have been marked as taking for the 12/29/24 encounter (Office Visit) with Jose Bonds DPM. ALLERGIES: Allergies Allergen Reactions Sulfa (Sulfonamide Antibiotics) PHYSICAL EXAM: Visit Vitals Ht 1.651 m (65 ) Wt 103 kg (226 lb) BMI 37.61 kg/m?? BSA 2.09 m?? PODIATRIC EXAMINATION: GENERAL: Patient appears well nourished, with NAD. VASCULAR: Dorsalis pedis pulses are 0/4 bilaterally and Posterior tibial pulses are 0/4 bilaterally. Capillary filling time within normal limits the digits. No pallor on elevation or rubor on dependency. No varicosities. Denies rest pain or claudication pain. NEUROLOGICAL: Sharp/dull sensation , protective sensation 5/10 with 5.07 semmes fany bilaterally, vibratory sensation with tuning fork intact to the tibial tuberosity. ORTHOPEDIC: Good muscle strength 4/5 dorsiflexion eversion with instability weakness of dorsiflexion eversion bilaterally signs of ankle instability noted acute weakness from extensors of all flexorsand extensors. Dorsi flexion of ankle ,10 degrees, plantar flexion WNL. No muscle atrophy. DERMATOLOGICAL:. Toenails: Left Toenail(s) 1-5: Crumbling upon debridement, subungual debris, discoloration, dystrophy, elongation, mycotic appearance, onychomycosis, pain and thickening. Right Toenail(s) 1-5: Crumbling upon debridement, subungual debris, discoloration, dystrophy, elongation, mycotic appearance, onychomycosis, pain and thickening. Annular scaling bilateral feet moccasin distribution Skin thinning texture shiny appearance diffuse hyperpigmentation bilaterally pedal hair decreased BIOMECHANICS: Ankle ROM WNL, STJ ROM wnl, MTJ ROM wnl, 1st MPJ ROM wnl. IMAGING: IMPRESSION: 1. Generalized muscle weakness 2. Acquired bilateral foot drop 3. Dermatophytosis of nail 4. Pain in toe of right foot 5. Pain in toe of left foot 6. Diabetic mononeuropathy simplex (CMS/HCC) 7. Type II diabetes mellitus with peripheral circulatory disorder (CMS/HCC) 8. Metatarsalgia of both feet PLAN: Pt was seen and examined, history reviewed. Concerns for weakness of the ankle with ankle instability and lack of muscle strength with dorsiflexion eversion bilateral was discussed and reviewed AFO braces were prescribed right lower extremity AFO brace prescribed left lower extremity Prescription for custom shoes to accommodate braces prescribed Discussed with patient regarding proper glucose control, exercise, and diet. Explained to patient proper shoe gear, and importance of daily foot checks. I reviewed neuropathy and why it occurs in diabetics. I educated the patient on proper blood sugar control and the importance of an HgBA1c of less than 7.0%. I reviewed the signs and symptoms of neuropathy with the patient Pt to return for another evaluation in 3 months. Debridement of mycotic toenails 6-10: Verbal informed consent was obtained from the patient. Greater than 6 nails were aseptically debrided in thickness and length with nail nippers Jose Bonds DPM documented in this encounter Plan of Treatment Upcoming Encounters Date Type Department Care Team (Late st Contact Info) Description 03/30/2025 10:30 AM EDT Office Visit Orthopedic Surgery - [place] [address] [phone] Jose Bonds DPM [address] [address] documented as of this encounter Visit Diagnoses Diagnosis Generalized muscle weakness- Primary Muscle weakness (generalized) Acquired bilateral foot drop Dermatophytosis of nail Pain in toe of right foot Pain in soft tissues of limb Pain in toe of left foot Pain in soft tissues of limb Diabetic mononeuropathy simplex (CMS/HCC) Type II or unspecified type diabetes mellitus with neurological manifestations, not stated as uncontrolled Type II diabetes mellitus with peripheral circulatory disorder (CMS/HCC) Type II or unspecified type diabetes mellitus with peripheral circulatory disorders, not stated as uncontrolled Metatarsalgia of both feet documented in this encounter Care Teams Rail Express Clerk Relationship Specialty Start Date End Date Robert Sumner MD [address] [place] [address] [address] [facility] [place] [address] PCP - General Internal Medicine 09/24/24 documented as of this encounter
--- OUTSIDE RECORDS SUMMARY | 2025-01-13 09:34 | XMS_ITS | Data Portability ---
Author Organization [facility] Address [address] [place] [phone] Assessment No assessment recorded. Plan of Treatment Reminders Order Date Submit Date Provider Last Modified By Organization Details Last Modified Time Details Appointments None recorde d. Lab glucose , fingers tick, blood 023 11/19/19 [email or web address] [facility], [address] [place] [address], [phone], 11:50:35 Referral None recorde d. Procedures None recorde d. Surgeries None recorde d. Imaging XR, foot, 3 or more view 023 11/19/19 NATALIE [facility], [address] [place], [address], 3 12:55:32 Medication Orders None recorde d. Patient TargetsNo targets recorded. Patient InstructionsNo instructions recorded. Reason for Referral None Reported. Results Created Date Observation Date Name Description Value Unit Range Abnormal Flag Note LastModifiedBy Organization Detail LastModifiedTime 11/19/1911/19/2022 gluco se, finge rstic k, blood blood sugar - non fasting mg/dL 80-140 = normal Not Available [address], [address], 11/19/2022 11:31:33 11/19/19 23 11/19/2022 gluco se, finge rstic k, blood blood sugar - fasting 193 mg/dL 80-125 = normal Not Available _[address], [place], [address], 11/19/2022 11:31:33 11/19/19 23 11/19/2022 XR, foot, 3 or more view No observ ation record ed. [email or web address] [facility] [address] [place], [address], 11/20/2022 08:27:39 Result Notes None recorded. Problems Name Problem SNOMED Code Status Onset Date Resolution Date Notes Provider Name and Address Organization Details Recorded Time Hypertensive disorder 14322191 Active 2022 ZANA CHARLTON null, [place] - [facility] 3 11:28:03 Asthma 176627008 Active 2022 ZANA CHARLTON null, [place] - [facility] 3 11:28:13 Hyperlipidemia 20043984 Active 2022 ZANA CHARLTON null, [place] - [facility] 3 11:29:19 Cobalamin deficiency 866823814 Active 2022 ZANA CHARLTON null, [place] - [facility] 3 11:30:02 Diabetes mellitus 93411164 Active 2022 ZANA CHARLTON null, [place] - [facility] 3 11:30:11 Gastroesophage al reflux disease 627089684 Active 2022 ZANA CHARLTON null, [place] - [facility] 3 11:30:43 Anemia 833216275 Active 2022 ZANA CHARLTON null, [place] - [facility] 3 11:30:50 Hyponatremia 42102929 Active 2022 ZANA CHARLTON null, [place] - [facility] 3 11:31:05 Problem Notes None recorded. Procedures Surgical History None recorded. Imaging Results Imaging Date Name Status LastModified by Organiz ation Details LastModified Time 11/19/2022 XR, foot, 3 or more view completed [email or web address] [facility] [address] [place], [address], 11/20/2022 08:27:39 Procedure Notes None recorded. Medical Equipment None Reported. Allergies Allergen ID Allergen Name Allergen Category Reaction Reaction Severity Criticality Documentation Date Start Date Code Code System Note Provider Name and Address Organization Details Recorded Time 518597 Substance with sulfonami de structure and antibacte rial mechanism of action (substanc e) medicatio n hives Not available Not available 11/19/2022 98974 8003 SNOMED PANKAJ [place] - [facility] 3 11:17:42 Medications Name Sig Start Date Stop Date Status Note LastModified by Organization Details LastModified Time metformin 500 mg tablet active Not Available Not Available Not Available trazodone 50 mg tablet active Not Available Not Available No t Available atorvastatin 10 mg tablet active Not Available Not Available Not Available lisinopril 20 mg tablet active Not Available Not Available Not Available diphenoxylat e-atropine 2.5 mg-0.025 mg tablet active Not Available Not Available No t Available risperidone 3 mg tablet active Not Available Not Available Not Available OneTouch Ultra Test strips TEST BLOOD SUGAR 3 TIMES A DAY DIRECTED active Not Available Not Available Not Available divalproex ER 500 mg tablet,exten ded release 24 hr active Not Available Not Available Not Available Advair Diskus 250 mcg-50 mcg/dose powder for inhalation active Not Available Not Available N ot Available hydralazine 50 mg tablet active Not Available Not Available Not Available furosemide 20 mg tablet active Not Available Not Available Not Available gabapentin 100 mg capsule active Not Available Not Available Not Available albuterol sulfate HFA 90 mcg/actuatio n aerosol inhaler active Not Available Not Available Not Available propranolol 20 mg tablet active Not Available Not Available Not Available fluticasone propionate 50 mcg/actuatio n nasal spray,suspen cristopher active Not Available Not Available Not Available Antacid Plus Anti-Gas 400 mg-400 mg-40 mg/5 mL oral suspension TAKE 10 ML BY MOUTH 4 TIMES A DAY NEEDED FOR INDIGESTION active Not Available Not Available Not Available simethicone active Not Available Not A vailable Not Available ferrous sulfate active Not Available Not Available Not Available Lactaid active Not Available Not Avail able Not Available lisinopril active Not Available Not Av ailable Not Available Vitamin D3 active Not Available Not Av ailable Not Available ondansetron active Not Available Not A vailable Not Available Vitamin B12 active Not Available Not A vailable Not Available Dexilant 60 mg capsule, delayed release active Not Available Not Available Not Available Citrucel active Not Available Not Avai lable Not Available Ure-Na active Not Available Not Availa ble Not Available Vitals Date Recorded Body height Body mass index (BMI) Body weight Pain severity - 0-10 verbal numeric rating [Score] - Reported Respiratory rate Oxygen saturation Oxygen saturation in Arterial blood by Pulse oximetry Heart rate Body temperature Systolic blood pressure Diastolic blood pressure Provider Name and Address Organization Details Last Updated DateTime 3 165.1 cm 43.9 kg/m2 761693. 39 g 10 18 /min 100 % 100 % 76 /min 97.5 [degF] 157 mm[Hg] 85 mm[Hg] ZANA LIRA [facility] 3 11:19:22 Social History Question Answer Notes LastModified by Organizat ion Details LastModified Time Tobacco Smoking Status Never Smoker [facility] [place] [facility] 11/19/2022 11:18:12 What Is Your Level Of Alcohol Consumption? None Information not available 11/19/2022 Do You Use Any Illicit Or Recreational Drugs? No [email or web address] Information not available 11/19/2022 Have You Recently Traveled Abroad? No Information not available 11/19/2022 Do You Or Have You Ever Used Any Other Forms Of Tobacco Or Nicotine? No [email or web address] Information not available 11/19/2022 Sex: Unknown Functional Status None recorded. Mental Status None recorded. Family History Relationship Description Onset Age of this Age Resolved Age Notes LastModified by Organization Details LastModified Time Father No current problems or disability [email or web address] Not available 11/19 11:17:55 Mother No current problems or disability Not available 11/19 11:17:55 Medical History No medical history recorded. Past Encounters Encounter ID Performer Location Encounter Start Date Encounter Closed Date Diagnosis/Indication Diagnosis SNOMED-CT Code Diagnosis ICD10 Code Diagnosis Note [id number] [address] [place] [address] [address] 11/11/2017 12:27:03 11/11/2017 14:11:50 [id number] [facility] [address] [facility] [place] [address] 07/16/2019 09:34:06 07/16/2019 10:03:45 [id number] [address] [address] [address] 12/30/2019 18:13:51 12/30/2019 19:22:33 [id number] [address] [address] [facility] [place] [address] 05/10/2022 10:31:31 05/10/2022 12:37:38 [id number] [address] [address] [facility] [place] [address] 09/24/2019 18:43:51 09/24/2019 19:35:54 [id number] [address] [address] [facility] [place] [address] 10/02/2019 17:34:39 10/02/2019 17:59:04 [id number] [address] [address] [facility] [place] [address] 03/31/2021 12:12:43 03/31/2021 13:12:15 [id number] [address] [address] [facility] [place] [address] 04/18/2021 16:40:29 04/18/2021 17:49:54 [id number] [address] [address] [facility] [place] [id number] 11/20/2019 12:14:41 11/20/2019 13:14:49 [id number] Ag Lara MD [address] [address] [facility] [place] [id number] 11/19/2022 11:04:24 11/19/2022 12:41:23 Pain in left foot 2029844190 80202 M79.672 Imaging did not indicate acute fracture but we will send it to the radiologis t to review.Pat ient has good distal pulses. PPatient has been instructed to keep the extremity elevated especially while at night ice as needed and utilize over-the-c ounter ibuprofen and/or Tylenol as directed for pain. Parent was instructed to follow up with PCP over the next week if pain does not begin to resolve. Discussed with the patient and Aide to follow up in the emergency department if there is worsening pain, loss of sensation, tingling, numbness of the right lower extremity. Parents states verbal understand ing and agreement with this treatment plan and has no further questions. Your x-ray will be reviewed by a radiologis t. You will be notified of any discrepanc ies between findings discussed at your visit today and the radiology interpreta tion. Dizziness 256433497 R42 Vital stable. Suicidal thoughts 584827 6 R45.851 Patient has SI and HI with plan and intent. Also auditory hallucinat ions.Avalos d 911 and will need ER evaluation . Health Concerns Section Related Observation LastModified by Organization Detai ls LastModified Time None Recorded Concern Status LastModified by Organization Details LastModified Time None Recorded Advance Directives Directive None Recorded Payers Encounter Date Sequence Insurance Name Policy Number Policy Ronquillo Covered Member ID Ronquillo Member ID Guarantor Name 12/30/2019 1 [place] [employer] Raulito R Green [id number] Raulito R Green 12/30/2019 2 [place] [facility] [place] [id number] [place] 03/31/2021 1 [place] [employer] [place] [id number] Raulito R Green 03/31/2021 2 [place] [facility] Raulito R Green [id number] Raulito R Green 04/18/2021 1 [place] [employer] [place] [id number] Raulito R Green 04/18/2021 2 [place] [facility] [place] [id number] [place] 05/10/2022 1 [place] [employer] [place] [id number] Raulito R Green 05/10/2022 2 [place] [facility] Raulito R Green [id number] Raulito Zepeda 11/19/2022 1 [place] [employer] Raulito Zepeda [id number] Raulito Zepeda 11/19/2022 2 [place] [facility] Raulito Zepeda [id number] Raulito Zepeda Notes Date Note Type Note Provider Name and Address Organization Details Recorded Time 11/19/2022 text/html Foot / AnkleReported bypatient.Notes:Candace silva caught foot under hist recliner and is having difficulty walking and pain.During visit patient states that he is dizzy, cant hold anything down. He Also states that he is very depressed and on further questioning states that he is hearing voices. Sates the voices are real and are telling him to kill himself or someone else. Upon further questioning on intent and plan, he says that he has a plan to strangle/choke himself or someone else with the intent to kill himself or someone else. Ag Lara MD [address] [place], [place] [address], [address], [place] - [facility] 11/19/2022 13:08:30
--- OUTSIDE RECORDS SUMMARY | 2025-01-13 09:34 | XMS_ITS | Encounter Summary ---
Author Organization [facility] Address [address] [facility] [address] [place] [address] Phone Care Team Providers Care Manager Chemical Name Role Phone Robret Sumner MD Primary Care Provider [phone] Reason for Visit * Reason Onset Date Comments Med Refill 11/29/2024 Encounter Details Date Type Department Care Team (Late Contact Info) Description 11/29/2024 Refill [facility] [address] [facility] [address] [place] [address] Alda Glass MA [address] [facility] [address] [place] [phone] Social History Tobacco Use Types Packs/Day Years [...] EDT Office Visit [facility] [address] [facility] [address] [place] [address] Frantz Luis MD [address] [facility] [address] [place] [address] documented as of this encounter Visit Diagnoses Not on filedocumented in this encounter Care Teams Manager Chemical Relationship Specialty Start Date End Date Robert Sumner MD [facility] [place] [address] [place] PCP - General 11/20/20 documented as of this encounter
[2025-01-13 10:41] LABS: MANUAL DIFF FLAG NO
[2025-01-13 10:52] LABS: Basophils Percent Auto 0.3 % (0-2); Eosinophils Percent Auto 0.5 % (0-4); Hematocrit 39.7 % (42.0-52.0); Hemoglobin 13.2 g/dl (14.0-18.0); Imm Gran Abs Auto 0.05 X10*3/uL (0.00-0.03); Imm Gran Pct Auto 0.8 % (0.0-0.4); Lymphocytes Absolute Auto 1.7 X10*3/uL (1.2-4.9); Lymphocytes Percent Auto 28.1 % (20-40); Mean Corpuscular HGB Conc 33.2 g/dl (31.0-36.0); Mean Corpuscular Hemoglobin 30.6 pg (27.0-33.0); Mean Corpuscular Volume 91.9 fL (80.0-98.0); Mean Platelet Volume 10.6 fL (9.4-12.4); Monocytes Absolute Auto 0.5 X10*3/uL (0.1-1.2); Monocytes Percent Auto 8.5 % (2-11); Neutrophils Absolute Auto 3.8 x10*3/uL (2.0-8.3); Neutrophils Percent Auto 61.8 % (45-73); Platelet Count 103 X10*3/uL (160-400); Red Blood Count 4.32 X10*6/uL (4.60-5.80); Red Cell Distribution Width 12.6 % (11.0-16.0); White Blood Count 6.1 X10*3/uL (4.8-10.8)
[2025-01-13 11:09] LABS: Anion Gap 11 (12-20); Blood Urea Nitrogen 21 mg/dL (9-16); Carbon Dioxide 25 mmol/L (22-29); Chloride 110 mmol/L (96-108); Estimated Glomerular Filt Rate > 60; Iron 96 mcg/dL (45-160); Magnesium 1.8 mg/dL (1.6-2.6); Percent Iron Saturation 43 % (15-50); Phosphorus 3.5 mg/dL (2.7-4.5); Potassium 4.4 mmol/L (3.3-5.1); Sodium 142 mmol/L (135-145); Total Iron Binding Capacity 225 mcg/dL (228-428); Unsaturated Iron Binding 129 ug/dL; Uric Acid 7.4 mg/dL (3.4-7.0)
[2025-01-13 11:13] LABS: Estimated Average Glucose 128 mg/dL; Hemoglobin A1c % 6.1 % (<6.0)
[2025-01-13 11:26] LABS: Ferritin 194 ng/mL (20-250); Vitamin D 25-OH Total 39.8 ng/mL (>30)
[2025-01-13 11:44] LABS: Appearance Urine Clear; Color Urine Yellow; Glucose Urine UA >=1000 mg/dL (Negative); Leukocyte Esterase Urine Negative (Negative); Nitrite Urine Negative (Negative); PH 5.5 (5.0-9.0); Specific Gravity - Urine >= 1.030 (1.005-1.025); UMIC TRIGGER UA YES; Urine Blood Negative (Negative); Urine Ketones Trace mg/dL (Negative); Urine Protein Negative (Neg-Trace)
[2025-01-13 11:55] LABS: Bacteria Urine None Seen (None Seen); Hyaline Casts Urine 0-2 /LPF (0-2); RBC Urine 0-2 /HPF (0-2); Squamous Epithelial Cell Urine 0-2 /HPF (0-2); WBC Urine 0-5 /HPF (0-5)
[2025-01-13 12:13] LABS: Creatinine Urine 92.15 mg/dL; Total Protein Urine Random < 7 mg/dL (<12)
== END 2025-01-13 08:51 | disposition home or self-care (01) ==
LOC: HO.HMGCLDS 08:50
PROVIDERS: PCP Internal Medicine; Visit Provider Internal Medicine
DX: N18.2 Chronic kidney disease, stage 2 (mild) (principal); Z13.1 Encounter for screening for diabetes mellitus
CPT/HCPCS: 36415; 80051; 81001; 82306; 82310; 82565; 82570; 82728; 83036; 83540; 83735; 84100; 84156; 84520; 84550; 85025

== ENCOUNTER 2025-03-08 09:34 | Outpatient (AMB) | payer MEDICARE, MEDICAID, SELFPAY ==
--- NOTE | 2025-03-08 10:04 | AM.OFFVISNUR ---
Intake Visit Reasons: EP sore throat, coughing, chest pain Allergies Sulfa (Sulfonamide Antibiotics) Allergy (Severe, Verified 01/04/25 22:51) CHAVEZ ALICIA REACTION trimethoprim Allergy (Mild, Verified 01/04/25 22:51) UNKNOWN lactose Adverse Reaction (Mild, Verified 01/04/25 22:51) STOMACH UPSET Nursing Note Pt came into the [place] with his worker. Pt ambulate (I) gait steady with rollator walker and has a gait belt to his waist. Pt c/o cold, cough, nasal congestion and chest pain secondary to coughing x am. Pt stated hx of Asthma, Htn. Pt's speaks in slow sentences. Skin pink warm dry. Vs 97% on room air-102. Lungs - diminished. DAVID (Christina) aware. Providers are in there respective rooms with pt. Coding
--- OUTSIDE RECORDS SUMMARY | 2025-03-08 10:34 | XMS_ITS | Data Portability ---
Author Organization [facility] [employer] Address [address] [place] [address] Assessment No assessment recorded. Plan of Treatment Reminders Order Date Submit Date Provider Last Modified By Organization Details Last Modified Time Details Appointments None recorde d. Lab glucose , fingers tick, blood 023 11/19/19 [email or web address] _[facility], [address] [place] [address], [phone], 11:50:35 Referral None recorde d. Procedures None recorde d. Surgeries None recorde d. Imaging XR, foot, 3 or more view 023 11/19/19 NAT[facility], [address] [place], [address], 3 12:55:32 Medication Orders None recorde d. Patient TargetsNo targets recorded. Patient InstructionsNo instructions recorded. Reason for Referral None Reported. Results Created Date Observation Date Name Description Value Unit Range Abnormal Flag Note LastModifiedBy Organization Detail LastModifiedTime 11/19/1911/19/2022 gluco se, finge rstic k, blood blood sugar - non fasting mg/dL 80-140 = normal Not Available [address], [address], 11/19/2022 11:31:33 11/19/19 23 11/19/2022 gluco se, finge rstic k, blood blood sugar - fasting 193 mg/dL 80-125 = normal Not Available [address], [place], [address], 11/19/2022 11:31:33 11/19/19 23 11/19/2022 XR, foot, 3 or more view No observ ation record ed. [email or web address] [facility] [address] [place], [address], 11/20/2022 08:27:39 Result Notes None recorded. Problems Name Problem SNOMED Code Status Onset Date Resolution Date Notes Provider Name and Address Organization Details Recorded Time Hypertensive disorder 39504644 Active 2022 ZANA CHARLTON null, [place] - [facility] 3 11:28:03 Asthma 180078624 Active 2022 ZANA CHARLTON null, PA - [facility] 3 11:28:13 Hyperlipidemia 89990210 Active 2022 ZANA CHARLTON null, PA - [facility] 3 11:29:19 Cobalamin deficiency 609971986 Active 2022 ZANA CHARLTON null, PA - [facility] 3 11:30:02 Diabetes mellitus 49050747 Active 2022 ZANA CHARLTON null, PA - [facility] 3 11:30:11 Gastroesophage al reflux disease 670278990 Active 2022 ZANA CHARLTON null, PA - [facility] 3 11:30:43 Anemia 489996177 Active 2022 ZANA CHARLTON null, PA - [facility] 3 11:30:50 Hyponatremia 19622517 Active 2022 ZANA CHARLTON null, PA - [facility] 3 11:31:05 Problem Notes None recorded. Procedures Surgical History None recorded. Imaging Results Imaging Date Name Status LastModified by Organiz ation Details LastModified Time 11/19/2022 XR, foot, 3 or more view completed [email or web address] [facility] [address] [place], [address], 11/20/2022 08:27:39 Procedure Notes None recorded. Medical Equipment None Reported. Allergies Allergen ID Allergen Name Allergen Category Reaction Reaction Severity Criticality Documentation Date Start Date Code Code System Note Provider Name and Address Organization Details Recorded Time 185387 Substance with sulfonami de structure and antibacte rial mechanism of action (substanc e) medicatio n hives Not available Not available 11/19/2022 39661 8003 SNOMED PANKAJ Med[place] - [facility] [...] Updated DateTime 3 165.1 cm 43.9 kg/m2 236819. 39 g 10 18 /min 100 % 100 % 76 /min 97.5 [degF] 157 mm[Hg] 85 mm[Hg] ZANA LIRA [facility] 3 11:19:22 Social History Question Answer Notes LastModified by Organizat ion Details LastModified Time Tobacco Smoking Status Never Smoker [facility] 11/19/2022 11:18:12 What Is Your Level Of Alcohol Consumption? None Information not available 11/19/2022 Do You Use Any Illicit Or Recreational Drugs? No [email or web address] Information not available 11/19/2022 Have You Recently Traveled Abroad? No [email or web address] Information not available 11/19/2022 Do You Or Have You Ever Used Any Other Forms Of Tobacco Or Nicotine? No [email or web address] Information not available 11/19/2022 Sex: Unknown Functional Status None recorded. Mental Status None recorded. Family History Relationship Description Onset Age of this Age Resolved Age Notes LastModified by Organization Details LastModified Time Father No current problems or disability Not available 11/19 11:17:55 Mother No current problems or disability [email or web address] Not available 11/19 11:17:55 Medical History No medical history recorded. Past Encounters Encounter ID Performer Location Encounter Start Date Encounter Closed Date Diagnosis/Indication Diagnosis SNOMED-CT Code Diagnosis ICD10 Code Diagnosis Note [id number] 21005[facility] [address] [address] 11/11/2017 12:27:03 11/11/2017 14:11:50 [id number] [facility] [address] [facility] [place] [id number] 07/16/2019 09:34:06 07/16/2019 10:03:45 [id number] 21004_Aaron [address] [address] 12/30/2019 18:13:51 12/30/2019 19:22:33 [id number] [facility] [address] [facility] [place] [address] 05/10/2022 10:31:31 05/10/2022 12:37:38 [id number] [facility] [address] [facility] [place] [id number] 09/24/2019 18:43:51 09/24/2019 19:35:54 [id number] [facility] [address] [facility] [place] [id number] 10/02/2019 17:34:39 10/02/2019 17:59:04 [id number] [facility] [address] [facility] [place] [place] [address] 03/31/2021 12:12:43 03/31/2021 13:12:15 [id number] [facility] [address] [facility] [place] [place] [address] 04/18/2021 16:40:29 04/18/2021 17:49:54 [id number] [facility] [address] [facility] [place] [id number] 11/20/2019 12:14:41 11/20/2019 13:14:49 [id number] Ag Lara MD [facility] [address] [facility] [place] [id number] 11/19/2022 11:04:24 11/19/2022 12:41:23 Pain in left foot [id number] 17512 M79.672 Imaging did not indicate acute fracture [...] today and the radiology interpreta tion. Dizziness 650243063 R42 Vital stable. Suicidal thoughts 064984 6 R45.851 Patient has SI and HI [...] [place]: [employer] Raulito R Green [id number] Dyer R Green 12/30/2019 2 [place] [facility] Raulito R Green [id number] Raulito R Green 03/31/2021 1 MEDICARE B[place]: [employer] Dyer R Green [id number] Raulito R Green 03/31/2021 2 [place] [facility] Dyer R Green [id number] Dyer R Green 04/18/2021 1 [place]IC[place] B[place]: [employer] Raulito R Green [id number] Dyer R Green 04/18/2021 2 [place] [facility] Raulito R Green [id number] Raulito R Green 05/10/2022 1 [place]: [employer] Dyer R Green [id number] Raulito R Green 05/10/2022 2 [place] [facility] Dyer R Green [id number] Raulito Zepeda 11/19/2022 1 [place]: [employer] Raulito Zepeda [id number] Raulito Zepeda 11/19/2022 2 [place] [facility] Raulito Zepeda [id number] Raulito Zepeda Notes Date Note Type Note [...] himself or someone else. Ag Lara MD [address] [place], [place] [address], [address], [place] - [facility] 11/19/2022 13:08:30
--- OUTSIDE RECORDS SUMMARY | 2025-03-08 10:34 | XMS_ITS | Clinical Summary ---
Author Organization 175 [facility] Address [address] [place] [address] Phone Care Team Providers Care Data Collection Technician Name Role Phone Robert Sumner MD Primary Care Provider [phone] Allergies Active Allergy Reactions Criticality Noted Date Comments Sulfa (Sulfonamide Antibiotics) 12/11 Encounters Date Type Department Care Team Description 12/29/2024 10:15 AM EST Office Visit Orthopedic Surgery [facility] [address] [address] Jose Bonds DPM Generalized muscle weakness (Primary Dx); Acquired bilateral foot drop; Dermatophytosis of nail; Pain in toe of right foot; Pain in toe of left foot; Diabetic mononeuropathy simplex (CMS/HCC V24, CMS/HCC V28); Type II diabetes mellitus with peripheral circulatory disorder (CMS/HCC V24, CMS/HCC V28); Metatarsalgia of both feet 12/29/2024 Telephone Orthopedic [facility] [address] [address] Jose Bonds DPM from Last [...] AM EDT Office Visit Orthopedic Surgery - [place] [address] [phone] Jose Bonds, DPM [address] [address] Health Maintenance Due Date Last Done Comments [...] age to complete this topic Meningococcal B Vaccine Aged Out No l onger eligible based on patient's age to complete this topic RSV Immunization Patients Under 20 months Aged Out No longer eligible based on patient's age to complete this topic Varicella Vaccines Aged Out No longer eligible based on patient's age to complete this topic Insurance MEDICARE [place]ICAID - [place] Advance Directives Documents on File Type Date Recorded Patient Anesthesia Attending Expl anation Health Care Decision (hx) 12/11/2020 AD VELASQUEZ DIRECTIVE Health Care Decision (hx) 12/11/2020 AD VELASQUEZ DIRECTIVE Health Care Decision (hx) 12/11/2020 AD VELASQUEZ DIRECTIVE Health Care Decision (hx) 12/11/2020 AD VELASQUEZ DIRECTIVE Care Teams Data Collection Technician Relationship Specialty Start Date End Date Robert Sumner MD [address] [place] [address] [address] [facility] [place] [address] PCP - General Internal Medicine 09/24/24
--- OUTSIDE RECORDS SUMMARY | 2025-03-08 10:34 | XMS_ITS | Clinical Summary ---
Author Organization [facility] Address [address] [place] [address] Phone Care Team Providers Care User Interface Engineer Name Role Phone Robert Sumner MD Primary Care Provider Allergies Active Allergy Reactions Criticality Noted Date [...] loperamide (IMODIUM) 2 MG capsule 4 Active hydrOXYzine (VISTARIL) 50 MG capsule 4 Active esomeprazole (NexIUM) [address] capsule Take 40 mg by mouth 1 (one) time each day before breakfast 4 Active cloNIDine (CATAPRES) 0.1 MG tablet Take 0.1 mg by mouth in the morning and 0.1 mg in the evening. Active Active Problems Problem Noted Date Diagnosed Date Chronic kidney disease, stage 2 (mild) 5 Leg swelling symptom 10/23/2023 Ankle pain 10/23/2023 [...] Visit [facility] [address] [address] Chana Schrader ARNP Chronic kidney disease, stage 2 (mild) (Primary Dx); Hyponatremia; Hypertension from Last 3 Months Family History Medical [...] Care Team (Late st Contact Info) Description 07/05/2025 1:30 PM EDT Office [facility] [address] [address] rFantz Luis MD [address] [address] Health Maintenance Due Date Last Done Comments Hepatitis B Vaccine (1 of 3 - 19+ 3-dose series) 08/22 Pneumococcal Vaccine: 50+ Years (1 of 2 - PCV) 990 Colorectal Cancer Screening: Annual FOBT 2020 Colorectal Cancer Screening: Colonoscopy 2020 Colorectal Cancer Screening: Sigmoidoscopy 2020 Diabetes: Hemoglobin A1C 10/23/2023 Diabetes: Ophthalmology Exam 10/23/2023 Diabetes: Pedal Pulse Checked 10/23/2023 Diabetes: Sensory Foot Exam 10/23/2023 Diabetes: Visual Foot Exam 10/23/2023 Influenza Vaccine (Season Ended) 2025 Insurance Medicare Medicaid [place] Medicare [place] Care Teams User Interface Engineer Relationship Specialty Start Date End Date Robert Sumner MD [address] [place], [place] PCP - General 11/20/20
--- NOTE | 2025-03-08 11:11 | MHC.OFFWIV ---
Intake Vital Signs 03/08/25 11:19 Weight 224 lb 6 oz BP 116/80 Blood Pressure Location Rt brachial Position Sitting Pulse 99 Pulse Source Pulse Oximeter Temp 98.2 F Temp Source Oral Pulse Oximetry (%) 96 Oxygen Delivery Method Room Air Intake Visit Reasons: EP sore throat, coughing, chest pain Patient Tobacco Use Status: Never used Tobacco Allergies Sulfa (Sulfonamide Antibiotics) Allergy (Severe, Verified 03/08/25 11:24) CHAVEZ ALICIA REACTION trimethoprim Allergy (Mild, Verified 03/08/25 11:24) UNKNOWN lactose Adverse Reaction (Mild, Verified 03/08/25 11:24) STOMACH UPSET HPI HPI Comments History of Present Illness Details Accompanied by tactical response group officer today. Flu like sx started 2 days ago + sore throat, painful swallowing + cough +runny nose - fever + chills + vomiting, no blood normal elimination Unsure about vaccine APAP w/o relief Exam Awake alert NAD Sclera and conjunctiva clear bilat Nares patent, turbinates within normal limits, no sinus tenderness with palpation bilat TM intact with erythema, congestion L MMM, pharynx WNL + PND RRR LS coarse rhonci, congested cough Rapid strep negative Plan: CXR & viral swab today, results pending [phone] [facility] will be called w/ results once avail Until then, he has orders for Delsym, APAP and Ibu which can be used for supportive care Edu on reasons to seek additional care or RTO. Total time spent caring for the patient today was 30 minutes. This includes time spent before the visit reviewing the chart, time spent during the visit, and time spent after the visit on documentation, reviewing laboratory results, diagnostic imaging, medications, performing a medically necessary evaluation, counseling on diagnoses, care coordination, ordering appropriate tests, ordering appropriate medications, review of tests performed by other providers, reporting test results with the patient, communication with other healthcare providers. [facility] Medical History Feeling suicidal Tinea cruris Leg swelling Atrial flutter Atrial fib/flutter, transient A-fib Arrhythmia Abnormal EKG Contusion of left ankle Annual physical exam Abdominal pain Back pain Positive colorectal cancer screening using Cologuard test Precordial chest pain Hospital discharge follow-up Chest pain Right ankle pain Musculoskeletal chest pain Left-sided chest pain Back pain Fall Dysphagia Acute kidney injury Gait instability Suicidal ideation COVID-19 Hypomagnesemia Diarrhea Abdominal pain Ankle pain, left Left ankle sprain Seizure disorder Hypertension Anxiety Hyponatremia Cerebellar ataxia Anemia Lactose intolerance Vertigo Asthma Mental disability Type 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 Proteinuria Hyperlipidemia LDL goal <100 Essential hypertension Surgical History Hx of surgical procedure (07/22/24) Hx of colonoscopy History of orchiectomy Family History Father Myocardial infarction CVD (cardiovascular disease) Diabetes mellitus Mother Diabetes mellitus HTN (hypertension) Brother In good health Sister In good health Social History Household Members: Other Household Members Other:: from shelter Housing: House Housing Other:: shelter [facility] [address] Esteban [phone] Do you presently have visiting nurse or other home services: Yes 75 years or older and lives alone: No Unable to assess alcohol history related to: Unknown Alcohol intake: former 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 Patient Tobacco Use Status: Never used Tobacco Tobacco use type: Cigarette e-Cigarette/Vaping Use: Never Used Second Hand Smoke Exposure: No Advance Directives Date on File: 03/07/21 service: No Current occupational status: disabled Cognitive needs: Yes (walker) Hearing needs: No Vision needs: Yes (glasses) Physical Exam Vital Signs: Last Vital Signs Temp 98.2 F 03/08/25 11:19 Pulse 99 03/08/25 11:19 BP 116/80 03/08/25 11:19 Pulse Ox 96 03/08/25 11:19 Oxygen Delivery Method Room Air 03/08/25 11:19 Results AMB Rapid Strep AMB Rapid Strep Negative Last Edit by ARLEY Kelly on 03/08/25 11:37 Results Reviewed Results Reviewed: Laboratory Last Values Strep Scn Rapid Clinic Negative 03/08/25 11:36 Assessment & Plan Assessment & Plan (1) Cough: Code(s): R05.9 - Cough, unspecified Qualifiers: Cough type: acute Qualified Code(s): R05.1 - Acute cough (2) Flu-like symptoms: Code(s): R68.89 - Other general symptoms and signs Plan / Orders: Orders SARS-CoV2/FLU/RSV Today JAZZ Poe R09.89 - Other specified symptoms and signs involving the circulatory and respiratory systems XR chest 2V Today JAZZ Poe R05.9 - Cough, unspecified AMB Rapid Strep Screen Today Shelby Madrigal PA-C Z13.9 - Encounter for screening, unspecified Coding Level of Care Code Est Pt Level 4 (85207) Diagnoses Acute cough R05.1 Cough type: acute Flu-like symptoms R68.89
[2025-03-08 11:19] VITALS: BP 116/80; PULSE 99; TEMP 36.8; O2SAT 96
== END 2025-03-08 12:02 | disposition home or self-care (01) ==
PROVIDERS: PCP Internal Medicine; Visit Provider Nurse Practitioner Family
DX: R05.1 Acute cough (principal); R68.89 Other general symptoms and signs; Z13.9 Encounter for screening, unspecified

== ENCOUNTER 2025-03-08 09:34 | Outpatient (REF) | payer MEDICARE, MEDICAID, SELFPAY ==
--- NOTE | ~2025-03-08 | XR_ITS ---
EXAMINATION: XR CHEST CLINICAL INFORMATION: R05.9 - Cough, unspecified COMPARISON: January 11, 2024. TECHNIQUE: 2 views of the chest were obtained. FINDINGS: No consolidation, pleural effusion or pneumothorax. Cardiomediastinal silhouette size is normal. Multilevel thoracic and upper lumbar spondylosis. XR/XR chest 2V IMPRESSION: No acute airspace disease. Multilevel spondylosis, thoracic spine. Electronically signed by: Lul Mendiola MD 03/08/2025 01:09 PM EDT
--- OUTSIDE RECORDS SUMMARY | 2025-03-08 13:41 | XMS_ITS | Clinical Summary ---
Author Organization [facility] Address [address] [place] [phone] Phone Care Team Providers Care Group Counselor Name Role Phone Robert Sumner MD Primary Care Provider [phone] Allergies Active Allergy Reactions Criticality Noted Date [...] Visit [facility] [address] [address] Chana Schrader ARNP Chronic kidney [...] Office Visit [facility] [address] [address] Frantz Luis MD [address] [address] Health Maintenance Due Date Last Done Comments [...] Medicaid [place] Medicare [place] Care Teams Group Counselor Relationship Specialty Start Date End Date Robert Sumner MD [address] [place], [place] PCP - General 11/20/20
--- OUTSIDE RECORDS SUMMARY | 2025-03-08 13:41 | XMS_ITS | Clinical Summary ---
Author Organization 175 [facility] Address 175 [place] [address] Phone Care Team Providers Care Equal Opportunity Representative Name Role Phone Robert Sumner MD Primary Care Provider [phone] Allergies Active Allergy Reactions Criticality Noted Date Comments Sulfa (Sulfonamide Antibiotics) 12/11 Encounters Date Type Department Care Team Description 12/29/2024 10:15 AM EST Office Visit Orthopedic Surgery [facility] [address] [address] Jose Bonds DPM Generalized muscle weakness (Primary Dx); Acquired bilateral foot drop; Dermatophytosis of nail; Pain in toe of right foot; Pain in toe of left foot; Diabetic mononeuropathy simplex (CMS/HCC V24, CMS/HCC V28); Type II diabetes mellitus with peripheral circulatory disorder (CMS/HCC V24, CMS/HCC V28); Metatarsalgia of both feet 12/29/2024 Telephone Orthopedic [facility] [address] [address] Jose Bonds DPM from Last [...] AM EDT Office Visit Orthopedic Surgery - [place] [address] [phone] Jose Bonds, DPM [address] [address] Health Maintenance Due Date Last Done Comments [...] Documents on File Type Date Recorded Patient Talent Acquisition Director Expl anation Health Care Decision (hx) 12/11/2020 AD VELASQUEZ DIRECTIVE Health Care Decision (hx) 12/11/2020 AD VELASQUEZ DIRECTIVE Health Care Decision (hx) 12/11/2020 AD VELASQUEZ DIRECTIVE Health Care Decision (hx) 12/11/2020 AD VELASQUEZ DIRECTIVE Care Teams Equal Opportunity Representative Relationship Specialty Start Date End Date Robert Sumner MD [address] [place] [address] [address] [facility] [place] [address] PCP - General Internal Medicine 09/24/24
[2025-03-08 14:15] LABS: Influenza A PCR NEGATIVE (Negative); Influenza B PCR NEGATIVE (Negative); Resp Syncy Virus RNA Qual PCR NEGATIVE (Negative); SARS COV2 PCR INHOUSE NEGATIVE (Negative)
== END 2025-03-08 09:35 | disposition home or self-care (01) ==
LOC: HO.HMGCX 09:34
PROVIDERS: PCP Internal Medicine; Visit Provider Nurse Practitioner Family
DX: R05.1 Acute cough (principal); R09.89 Other specified symptoms and signs involving the circulatory and respiratory systems; R68.89 Other general symptoms and signs
CPT/HCPCS: 0241U; 71046; 87880; 99212

== ENCOUNTER → 2025-03-08 11:37 | Outpatient (BNV) | payer MEDICARE, MEDICAID, SELFPAY | PROVIDERS: PCP Internal Medicine; Visit Provider Radiology Diagnostic Radiology | DX: R05.9 Cough, unspecified (principal) | CPT/HCPCS: 71046 ==

== ENCOUNTER 2025-03-08 11:50 | Outpatient (REF) | payer MEDICARE, MEDICAID, SELFPAY ==
--- OUTSIDE RECORDS SUMMARY | 2025-03-08 14:27 | XMS_ITS | Clinical Summary ---
Author Organization 175 [facility] Address 175 [place] [address] Phone Care Team Providers Care Rail Filler Name Role Phone Robert Sumner MD Primary Care Provider [phone] Allergies Active Allergy Reactions Criticality Noted Date Comments Sulfa (Sulfonamide Antibiotics) 12/11 Encounters Date Type Department Care Team Description 12/29/2024 10:15 AM EST Office Visit Orthopedic [facility] [address] [address] Jose Bonds DPM Generalized muscle weakness (Primary Dx); Acquired bilateral foot drop; Dermatophytosis of nail; Pain in toe of right foot; Pain in toe of left foot; Diabetic mononeuropathy simplex (CMS/HCC V24, CMS/HCC V28); Type II diabetes mellitus with peripheral circulatory disorder (CMS/HCC V24, CMS/HCC V28); Metatarsalgia of both feet 12/29/2024 Telephone Orthopedic [facility] [address] [address] Jose Bonds DPM from Last [...] AM EDT Office Visit Orthopedic Surgery - [place] [address] [phone] Jose Bonds, DPM [address] [address] Health Maintenance Due Date Last Done Comments [...] Documents on File Type Date Recorded Patient Supervisor Paste Mixing Expl anation Health Care Decision (hx) 12/11/2020 AD VELASQUEZ DIRECTIVE Health Care Decision (hx) 12/11/2020 AD VELASQUEZ DIRECTIVE Health Care Decision (hx) 12/11/2020 AD VELASQUEZ DIRECTIVE Health Care Decision (hx) 12/11/2020 AD VELASQUEZ DIRECTIVE Care Teams Rail Filler Relationship Specialty Start Date End Date Robert Sumner MD [address] [place] [address] [address] [facility] [place] [address] PCP - General Internal Medicine 09/24/24
--- OUTSIDE RECORDS SUMMARY | 2025-03-08 14:27 | XMS_ITS | Clinical Summary ---
Author Organization [facility] Address [address] [place] [phone] Phone Care Team Providers Care Mail Sorter And Delivery Name Role Phone Robert Sumner MD Primary Care Provider [phone] Allergies Active Allergy Reactions Criticality Noted Date [...] Visit [facility] [address] [address] Chana Schrader ARNP Chronic kidney [...] [facility] [address] [address] Frantz Luis MD [address] [address] Health Maintenance Due Date Last Done Comments [...] Medicaid [place] Medicare [place] Care Teams Mail Sorter And Delivery Relationship Specialty Start Date End Date Robert Sumner MD [address] [place], [place] PCP - General 11/20/20
== END 2025-03-08 11:51 | disposition home or self-care (01) ==
LOC: HO.LAB 11:50
PROVIDERS: Visit Provider Nurse Practitioner Family
DX: Z13.89 Encounter for screening for other disorder (principal)

== ENCOUNTER 2025-03-09 10:29 | Emergency (ER) | payer MEDICARE, MEDICAID, SELFPAY ==
--- NOTE | ~2025-03-09 | XR_ITS ---
EXAMINATION: XR CHEST CLINICAL INFORMATION: cough, hypoxia COMPARISON: March 08, 2025. TECHNIQUE: Frontal view of the chest was obtained. FINDINGS: Patchy opacities in the perihilar regions with mild prominence of the interstitial lung markings. No gross consolidation, pleural effusion or pneumothorax. No hyperinflation. Cardiomediastinal silhouette size is normal. Multilevel thoracic spondylosis. Mild degenerative changes in the greater tuberosity right humerus. XR/XR chest 1V IMPRESSION: Mild interstitial lung edema versus acute small airway inflammatory process. Electronically signed by: Lul Mendiola MD 03/09/2025 10:42 AM EDT
--- NOTE | 2025-03-09 10:31 | ED_ITS ---
HPI - General Adult General Chief complaint: Upper Respiratory Symptoms Stated complaint: COLD,CHEST CONGESTION X4D, 92% RA PER EMS Time Seen by Provider: 03/09/25 10:30 Source: patient, EMS, RN notes reviewed and old records reviewed Mode of arrival: EMS Limitations: no limitations History of Present Illness ED Provider: Perry Kim PA-C HPI narrative: 54-year-old male with a history of schizophrenia, prior psychosis, cognitive developmental delay,hypertension, hyperlipidemia, diabetes type 2, asthma, GERD, PVD, CKD, hx PNA, cerebellarl ataxia, dysphagia, HTN, asthma, a flutter, who presents from his care home for evaluation of not feeling well with cough, fatigue and chest congestion. He states he has been coughing up phlegm. He has chest discomfort when he coughs. No fevers but reports some chills. No N/V/D or abdominal pain. He reports his care home staff are also sick with similar symptoms. MD complaint: cold symptoms Onset (ago): day(s) Location: chest Radiation: non-radiation Severity: moderate Quality: aching Pain Consistency: intermittent Relieving factors: rest Exacerbating factors: other (coughing) Associated symptoms: cough and malaise Treatments prior to arrival: none Related Data Home Medications ?Medication ?Instructions ?Recorded ?Confirmed divalproex 500 mg tablet,extended 1,000 mg PO BID 06/10/23 12/29/24 release 24 hr gabapentin 100 mg capsule 300 mg PO BID 06/10/23 12/29/24 risperidone 3 mg tablet 3 mg PO BID 06/10/23 12/29/24 guaifenesin 100 mg/5 mL oral 200 mg PO Q4H PRN Cough 07/29/23 12/29/24 liquid (Siltussin SA) ondansetron 4 mg disintegrating 4 mg PO Q6H PRN Nausea And Vomiting 07/29/23 12/29/24 tablet hydroxyzine pamoate 50 mg capsule 50 mg PO DAILY PRN 10/13/23 12/29/24 AGITATION/ANXIETY sennosides 8.6 mg tablet (senna) 17.2 mg PO DAILY PRN Constipation 12/23/2312/11 clonidine HCl 0.1 mg tablet 0.1 mg PO BEDTIME 07/09/24 12/29/24 Previous Rx's ?Medication ?Instructions ?Recorded lancets 30 gauge (OneTouch #100 ea 06/17/23 UltraSoft 2 Lancet) bismuth subsalicylate 262 mg/15 mL 524 mg (30 mL) PO QID PRN diarrhea 08/01/23 oral suspension (Pepto-Bismol) 7 days #1,200 mL nystatin 100,000 unit/gram topical 1 appl topical TID PRN Rash #60 08/04/23 powder grams lactase 3,000 unit tablet (Lactaid) 3,000 unit PO TIDWM PRN Lactose 11/14/23 Intolerance #30 tabs acetaminophen 325 mg tablet 650 mg (2 x 325 mg) PO Q4H PRN 02/04/24 fever or pain 90 days #180 tabs methylcellulose (laxative) 500 mg 1,000 mg (2 x 500 mg) PO DAILY 30 02/26/24 tablet (Citrucel) days #60 tabs starch (thickening) (Diafoods See Rx Instructions PO .COMPLEX 30 03/17/24 Thick-It oral powder) days #850 grams blood-glucose meter (OneTouch #1 ea 04/07/24 Ultra2 Meter) blood-glucose meter (Prodigy #1 ea 04/07/24 Autocode Blood Glucose Monitoring System) lancing device ([employer] Lancing #1 ea 04/07/24 Device) fluticasone propionate 50 1 spray intranasal BID #16 grams 06/17/24 mcg/actuation nasal spray,suspension (Flonase Allergy Relief) blood sugar diagnostic (AIMigy No #100 ea 07/19/24 Coding strips) alvarez.stocking,knee,reg,xlrg #12 ea 07/19/24 [id number] #1 ea 09/03/24 Bilateral custom AFO #2 ea 09/03/24 Heat Moldable shoe inserts #2 ea 09/03/24 dextromethorphan polistirex 30 10 ml PO Q12H PRN cough #89 mL 10/13/24 mg/5 mL oral susp ext.release 12hr (Delsym 12 hour) fluoride (sodium) 1.1 % dental 1 appl dental BID #100 mL 10/13/24 paste (PreviDent 5000 Booster Plus) valacyclovir 1 gram tablet 1,000 mg PO TID #21 tabs 10/13/24 lidocaine 5 % topical patch 1 patch topical DAILY PRN pain #15 11/12/24 ea neomycin-bacitracn Zn-polymyxn 3.5 1 appl topical BID #10 ea 11/25/24 mg-400 unit-5,000 unit top oint pkt (Triple Antibiotic) loperamide 2 mg capsule 2 mg PO Q6H PRN loose stool #30 12/14/24 caps albuterol sulfate 90 mcg/actuation 2 puff inhalation Q6H PRN Wheezing 12/29/24 aerosol inhaler #8.5 grams fluticasone furoate 200 1 inh inhalation DAILY #60 ea 12/29/24 mcg-vilanterol 25 mcg/dose inhalation powder (Breo Ellipta) lisinopril 5 mg tablet 5 mg PO DAILY #30 tabs 12/29/24 DIABETIC SHOES/INSERTS #1 ea 01/10/25 cyanocobalamin (vitamin B-12) 1,000 mcg PO BEDTIME #90 tabs 01/26/25 1,000 mcg tablet atorvastatin 10 mg tablet 10 mg PO BEDTIME #90 tabs 02/21/25 cholecalciferol (vitamin D3) 25 25 mcg PO DAILY #30 tabs 02/21/25 mcg (1,000 unit) tablet empagliflozin 25 mg tablet 25 mg PO DAILY #30 tabs 02/21/25 (Jardiance) esomeprazole magnesium 40 mg 40 mg PO BEDTIME #28 caps 02/21/25 capsule,delayed release (Nexium) ferrous sulfate 325 mg (65 mg 325 mg PO BID #180 tabs 02/21/25 iron) tablet hydralazine 50 mg tablet 50 mg PO TID #90 tabs 02/21/25 lancets 28 gauge (Prodigy Lancets) #200 ea 02/21/25 propranolol 20 mg tablet 20 mg PO TID@0800,1600,2000 90 02/21/25 days #270 tabs amoxicillin 875 mg-potassium 1 tab PO BID #13 tabs 03/09/25 clavulanate 125 mg tablet azithromycin 250 mg tablet See Rx Instructions PO .COMPLEX #6 03/09/25 (Zithromax Z-Gianni) tabs prednisone 20 mg tablet 40 mg (2 x 20 mg) PO DAILY #8 tabs 03/09/25 Allergies Allergy/AdvReac Type Severity Reaction Status Date / Time Sulfa (Sulfonamide Allergy Severe CHAVEZ Verified 03/09/25 10:46 Antibiotics) ALICIA REACTION trimethoprim Allergy Mild UNKNOWN Verified 03/09/25 10:46 lactose AdvReac Mild STOMACH Verified 03/09/25 10:46 UPSET Review of Systems Review of Systems: Yes all other systems are reviewed and are negative [facility] Past Medical History Medical History Feeling suicidal Tinea cruris Leg swelling Atrial flutter Atrial fib/flutter, transient A-fib Arrhythmia Abnormal EKG Contusion of left ankle Annual physical exam Abdominal pain Back pain Positive colorectal cancer screening using Cologuard test Precordial chest pain Hospital discharge follow-up Chest pain Right ankle pain Musculoskeletal chest pain Left-sided chest pain Back pain Fall Dysphagia Acute kidney injury Gait instability Suicidal ideation COVID-19 Hypomagnesemia Diarrhea Abdominal pain Ankle pain, left Left ankle sprain Seizure disorder Hypertension Anxiety Hyponatremia Cerebellar ataxia Anemia Lactose intolerance Vertigo Asthma Mental disability Type 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 Proteinuria Hyperlipidemia LDL goal <100 Essential hypertension Surgical History Hx of surgical procedure (07/22/24) Hx of colonoscopy History of orchiectomy Family History Family History Father Myocardial infarction CVD (cardiovascular disease) Diabetes mellitus Mother Diabetes mellitus HTN (hypertension) Brother In good health Sister In good health Social History Social History Household Members: Other Household Members Other:: from care home Housing: House Housing Other:: care home [facility] [address] Esteban [phone] Do you presently have visiting nurse or other home services: Yes Unable to assess alcohol history related to: Unknown Alcohol intake: former 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 Patient Tobacco Use Status: Never used Tobacco Tobacco use type: Cigarette Smoked in Last 30 Days: No e-Cigarette/Vaping Use: Never Used Second Hand Smoke Exposure: No Advance Directives: Yes Advance Directives on File: Yes Advance Directives Date on File: 03/07/21 Do you have a plan to hurt others: No Plan service: No Current occupational status: disabled Cognitive needs: Yes (walker) Hearing needs: No Vision needs: Yes (glasses) Physical Exam ED Vital Signs: Vital Signs - 24 hr 03/09/25 10:41 03/09/25 11:02 03/09/25 11:41 Temperature 99.0 F Pulse Rate 95 67 Respiratory Rate 18 15 Blood Pressure 149/93 H Pulse Oximetry 96 96 Oxygen Delivery Method Room Air Room Air 03/09/25 11:41 03/09/25 12:00 Temperature 98.6 F Pulse Rate 84 88 Respiratory Rate 18 18 Blood Pressure 148/89 H 155/89 H Pulse Oximetry 95 95 Oxygen Delivery Method Room Air Room Air BMI result Body Mass Index 37.9 Appearance: Alert. Oriented X3. No acute distress. Head: normocephalic, atraumatic. Eyes: Pupils equal, round and reactive to light. strabysmus ENT: Pharynx normal. No tonsillar swelling or exudate. Neck: Normal inspection. Neck supple. CVS: Normal heart rate and rhythm. Pulses normal. Respiratory: No respiratory distress. Breath sounds with coarse breath sounds and scattered rhonchi throughout both lungs. speaking in complete sentences Abdomen: Soft and nontender. +BS x4 Skin: Skin warm and dry. Normal skin color. Normal skin turgor. No rashes. Extremities: No lower extremity edema. No joint swelling. leg braces in place Neuro/psych: Oriented X 3. delayed speech, at his baseline Medications Administered Discontinued Medications Generic Name Dose Route Start Last Admin Trade Name Freq PRN Reason Stop Dose Admin Albuterol/Ipratropium 3 ml 03/09/25 11:02 03/09/25 11:05 Albuterol/Iprat 2.5/0.5mg 3 Ml Ampul.Neb INHALE 03/09/25 11:03 3 ml ONCE ONE Administration Amoxicillin/Clavulanate Potassium 875 mg 03/09/25 11:58 03/09/25 12:10 Amoxicillin/Potassium Clav 875 Mg Tablet PO 03/09/25 11:59 875 mg ONCE ONE Administration Guaifenesin/Dextromethorphan 10 ml 03/09/25 10:43 03/09/25 11:02 Guaifenesin Dm 200/20/10 Ml 10 Ml Syrup PO 03/09/25 10:44 10 ml ONCE ONE Administration Prednisone 40 mg 03/09/25 10:42 03/09/25 11:03 Prednisone 20 Mg Tablet PO 03/09/25 10:43 40 mg ONCE ONE Administration Medical Decision Making Medical Decision Making [facility] Narrative: 54-year-old male with a history of schizophrenia, prior psychosis, cognitive developmental delay,hypertension, hyperlipidemia, diabetes type 2, asthma, GERD, PVD, CKD, hx PNA, cerebellarl ataxia, dysphagia, HTN, asthma, a flutter, who presents from his care home for evaluation of not feeling well with cough, fatigue and chest congestion for the last couple of days. 92% SpO2 per EMS. on arrival SpO2 96% on RA. congested and rhonchorous without resp distress. ED bronch protocol ordered CXR without PNA, small airway inflammation noted. viral swab negative. breath sounds improved s/p neb. SpO2 remains 96-97% on RA will treat for acute bronchitis with abx and steroids given asthma hx. stable for d/c back to care home Differential Diagnosis Differential Diagnoses: The differential diagnosis associated with the presentation includes strep, covid, flu, rsv, other viral syndrome, bronchitis, pneumonia, asthma exacerbation Admission/Observation Consideration of admission/observation: Escalation of care including admission/observation considered Lab Data [facility] Lab Attestation statement: I reviewed the patient's lab results. Labs: Lab Results 03/09/25 Range/Units 10:54 Influenza Type A (PCR) NEGATIVE (Negative) Influenza Type B (PCR) NEGATIVE (Negative) RSV RNA Qual (PCR) NEGATIVE (Negative) SARS-CoV-2 RNA (RT-PCR) NEGATIVE (Negative) Independent Interpretation I performed an independent interpretation of an: Plain X-Ray Interpretation: no focal infiltrate or effusion, increased vascular markings Radiology Impression Discussion of test interpretation with radiology: I have reviewed the radiologist's reading. Independent Historian Clinical information obtained from an independent historian. History obtained from or confirmed by: EMS External Record Review External record reviewed: Outpatient record, Prior outpatient labs and Prior outpatient radiology Prescription Management I considered prescription management with: Antibiotic Chronic Conditions Patient?s care impacted by: Hypertension and Other (cognitive delay, CKD, schizophrenia) Critical Care Time Critical Care Time Critical Care Time: No Discharge Plan Discharge Clinical Impression: Bronchitis Patient Disposition: Home, Self-Care Instructions: Acute Bronchitis (ED) Additional Instructions: Your xray showed inflammation of the small airways but no pneumonia. Your oxygen levels were normal. You tested negative for COVID, Flu and RSV. Take the prednisone to help with the inflammation in your lungs - start tomorrow, as you were given 1st dose in the ER today Take the prescribed antibiotics as directed, complete the entire course and do not miss any doses Augmentin next dose is due tonight and start azithromycin as soon as you get it Recommend rest, plenty of oral hydration Recommend over the counter mucinex 1200 mg BID for the next 5 days. Take Dayquil/Nyquil as needed for your symptoms. Follow up with your doctor If you develop new or worsening symptoms call 911 or come back to the ER for further evaluation. Prescriptions: New azithromycin [Zithromax Z-Gianni] 250 mg tablet See Rx Instructions .ROUTE .COMPLEX Qty: 6 0RF Rx Instructions: take 500 mg today (day 1), then 250 mg for 4 days (days 2-5) prednisone 20 mg tablet 40 mg PO DAILY Qty: 8 0RF amoxicillin-pot clavulanate 875-125 mg tablet 1 tab PO BID Qty: 13 0RF No Action (DME) lancets [OneTouch UltraSoft 2 Lancet] 30 gauge misc See Rx Instructions .Route Qty: 100 5RF Rx Instructions: test once daily nystatin 100,000 unit/gram powder 1 appl TOPICAL TID PRN (Reason: Rash) Qty: 60 0RF Citrucel 500 mg tablet 1,000 mg PO DAILY 30 Days Qty: 60 2RF Diafoods Thick-It Powder See Rx Instructions PO .COMPLEX 30 Days Qty: 850 12RF Rx Instructions: Add thick it powder to food and beverage using enclosed measuring spoon TID (DME) blood-glucose meter [[employer] Autocode Monitor Syst] Misc See Rx Instructions .Route Qty: 1 0RF Rx Instructions: As directed fluticasone propionate [Flonase Allergy Relief] 50 mcg/actuation spray,suspension 1 spray intranasal BID Qty: 16 12RF Rx Instructions: administer into each nostril (DME) [id number] 10 XW 3 See Rx Instructions .Route .MEDSUPPLY Qty: 1 0RF Rx Instructions: As directed (DME) Heat Moldable shoe inserts See Rx Instructions .Route .MEDSUPPLY Qty: 2 0RF Rx Instructions: As directed (DME) Bilateral custom AFO See Rx Instructions .Route .MEDSUPPLY Qty: 2 0RF Rx Instructions: As directed dextromethorphan polistirex [Delsym 12 hour] 30 mg/5 mL suspension,extended rel 12 hr 10 ml PO Q12H PRN (Reason: cough) Qty: 89 0RF fluoride (sodium) [PreviDent 5000 Booster Plus] 1.1 % paste 1 appl DENTAL BID Qty: 100 0RF Triple Antibiotic 3.5-400-5,000 [id number] ointment in packet 1 appl TOPICAL BID Qty: 10 7RF loperamide 2 mg capsule 2 mg PO Q6H PRN (Reason: loose stool) Qty: 30 0RF (DME) DIABETIC SHOES/INSERTS See Rx Instructions .Route .MEDSUPPLY Qty: 1 1RF Rx Instructions: As directed cyanocobalamin (vitamin B-12) 1,000 mcg tablet 1,000 mcg PO BEDTIME Qty: 90 0RF (DME) lancets [Prodigy Lancets] 28 gauge misc See Rx Instructions .Route Qty: 200 2RF Rx Instructions: As directed check BS twice a day ferrous sulfate 325 mg (65 mg iron) tablet 325 mg PO BID Qty: 180 2RF propranolol 20 mg tablet 20 mg PO TID@0800,1600,2000 90 Days Qty: 270 2RF Jardiance 25 mg tablet 25 mg PO DAILY Qty: 30 2RF atorvastatin 10 mg tablet 10 mg PO BEDTIME Qty: 90 2RF hydralazine 50 mg tablet 50 mg PO TID Qty: 90 2RF esomeprazole magnesium [Nexium] 40 mg capsule,delayed release(DR/EC) 40 mg PO BEDTIME Qty: 28 2RF cholecalciferol (vitamin D3) 25 mcg (1,000 unit) tablet 25 mcg PO DAILY Qty: 30 2RF hydroxyzine pamoate 50 mg capsule 50 mg PO DAILY PRN (Reason: AGITATION/ANXIETY) clonidine HCl 0.1 mg Tablet 0.1 mg PO BEDTIME valacyclovir 1 gram tablet 1,000 mg PO TID Qty: 21 0RF risperidone 3 mg tablet 3 mg PO BID divalproex 500 mg tablet extended release 24 hr 1,000 mg PO BID gabapentin 100 mg capsule 300 mg PO BID guaifenesin [Siltussin SA] 100 mg/5 mL Liquid 200 mg PO Q4H PRN (Reason: Cough) ondansetron 4 mg Tablet,Disintegrating 4 mg PO Q6H PRN (Reason: Nausea And Vomiting) sennosides [senna] 8.6 mg Tablet 17.2 mg PO DAILY PRN (Reason: Constipation) bismuth subsalicylate [Pepto-Bismol] 262 mg/15 mL suspension 524 mg PO QID PRN (Reason: diarrhea) 7 Days Qty: 1200 0RF lactase [Lactaid] 3,000 unit tablet 3,000 unit PO TIDWM PRN (Reason: Lactose Intolerance) Qty: 30 11RF Rx Instructions: take at the start of drinking milk only acetaminophen 325 mg tablet 650 mg PO Q4H PRN (Reason: fever or pain) 90 Days Qty: 180 2RF (DME) alvarez.stocking,knee,reg,xlrg Misc See Rx Instructions .Route Qty: 12 0RF Rx Instructions: As directed 10-20 mm HG (DME) Prodigy No Coding Strip See Rx Instructions .Route Qty: 100 11RF Rx Instructions: As directed 2 times per day (DME) lancing device [Prodigy Lancing Device] Misc See Rx Instructions .Route Qty: 1 0RF Rx Instructions: As directed (DME) blood-glucose meter [OneTouch Ultra2 Meter] Misc See Rx Instructions .Route Qty: 1 0RF Rx Instructions: test once daily lidocaine 5 % adhesive patch,medicated 1 patch topical DAILY PRN (Reason: pain) Qty: 15 0RF Rx Instructions: leave on most painful area for 4-5 hours. albuterol sulfate 90 mcg/actuation HFA aerosol inhaler 2 puff INHALATION Q6H PRN (Reason: Wheezing) Qty: 8.5 0RF fluticasone furoate-vilanterol [Breo Ellipta] 200-25 mcg/dose blister with device 1 inh inhalation DAILY Qty: 60 4RF lisinopril 5 mg tablet 5 mg PO DAILY Qty: 30 8RF Interventions: ED Discharge Assessment Last Done: 03/09/25 12:23 Print Language: Vietnamese
[2025-03-09 10:41] VITALS: BP 132/78; BP 149/93; PULSE 94; PULSE 95; RESP 18; TEMP 37.2; O2SAT 92; O2SAT 96; BMI 37.9
[2025-03-09 11:02] VITALS: PULSE 67; RESP 15; O2SAT 91
[2025-03-09] MEDS: guaiFENesin DM 200/20/10 ML 10 ML SYRUP PO (11:02)
[2025-03-09] MEDS: predniSONE 20 MG TABLET 40 MG PO (11:03)
[2025-03-09] MEDS: Albuterol/Iprat 2.5/0.5MG 3 ML AMPUL.NEB INHALE (11:05)
[2025-03-09 11:37] LABS: Influenza A PCR NEGATIVE (Negative); Influenza B PCR NEGATIVE (Negative); Resp Syncy Virus RNA Qual PCR NEGATIVE (Negative); SARS COV2 PCR INHOUSE NEGATIVE (Negative)
[2025-03-09 11:41] VITALS: BP 148/89; PULSE 84; RESP 18; O2SAT 95; O2SAT 96
[2025-03-09 12:00] VITALS: BP 155/89; PULSE 88; RESP 18; TEMP 37; O2SAT 95
[2025-03-09] MEDS: Amoxicillin/Potassium Clav 875 MG TABLET PO (12:10)
[2025-03-09 12:23] VITALS: BP 155/89; PULSE 88; RESP 18; TEMP 37; O2SAT 95
--- OUTSIDE RECORDS SUMMARY | 2025-03-09 13:32 | XMS_ITS | Clinical Summary ---
Author Organization [facility] Address [address] [place] [phone] Phone Care Team Providers Care Choker Hooker Name Role Phone Robert Sumner MD Primary Care Provider [phone] Allergies Active Allergy Reactions Criticality Noted Date [...] Visit [facility] [address] [phone] Chana Schrader ARNP Chronic kidney [...] Office Visit [facility] [address] [phone] Frantz Luis MD [address] [phone] Health Maintenance Due Date Last Done Comments [...] [place] Care Teams Choker Hooker Relationship Specialty Start Date End Date Robert Sumner MD [address] [place], [place] PCP - General 11/20/20
--- OUTSIDE RECORDS SUMMARY | 2025-03-09 13:32 | XMS_ITS | Clinical Summary ---
Author Organization [facility] Address [address] [place] [address] Phone Care Team Providers Care Outside Sales Representative Name Role Phone Robert Sumner MD Primary Care Provider [phone] Allergies Active Allergy Reactions Criticality Noted Date Comments Sulfa (Sulfonamide Antibiotics) 12/11 Encounters Date Type Department Care Team Description 12/29/2024 10:15 AM EST Office Visit Orthopedic Surgery [facility] [address] [address] Jose Bonds DPM Generalized muscle weakness (Primary Dx); Acquired bilateral foot drop; Dermatophytosis of nail; Pain in toe of right foot; Pain in toe of left foot; Diabetic mononeuropathy simplex (CMS/HCC V24, CMS/HCC V28); Type II diabetes mellitus with peripheral circulatory disorder (CMS/HCC V24, CMS/HCC V28); Metatarsalgia of both feet 12/29/2024 Telephone Orthopedic [facility] [address] [address] Jose Bonds DPM from Last [...] AM EDT Office Visit Orthopedic Surgery - [place] [address] [phone] Jose Bonds, DPM [address] [address] Health Maintenance Due Date Last Done Comments [...] Documents on File Type Date Recorded 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
--- OUTSIDE RECORDS SUMMARY | 2025-03-09 13:32 | XMS_ITS | Data Portability ---
Author Organization [facility] Address [address] [place] [phone] Assessment No assessment recorded. Plan of Treatment Reminders Order Date Submit Date Provider Last Modified By Organization Details Last Modified Time Details Appointments None recorde d. Lab glucose , fingers tick, blood 023 11/19/19 [email or web address] [facility], [address] [place] [address], [id number], 11:50:35 Referral None recorde d. Procedures None recorde d. Surgeries None recorde d. Imaging XR, foot, 3 or more view 023 11/19/19 NAT[facility], [address] [place], [address], 3 12:55:32 Medication Orders None recorde d. Patient TargetsNo targets recorded. Patient InstructionsNo instructions recorded. Reason for Referral None Reported. Results Created Date Observation Date Name Description Value Unit Range Abnormal Flag Note LastModifiedBy Organization Detail LastModifiedTime 11/19/1911/19/2022 gluco se, finge rstic k, blood blood sugar - non fasting mg/dL 80-140 = normal Not Available [address], [address], 11/19/2022 11:31:33 11/19/19 23 11/19/2022 gluco se, finge rstic k, blood blood sugar - fasting 193 mg/dL 80-125 = normal Not Available [address], [place], [address], 11/19/2022 11:31:33 11/19/19 23 11/19/2022 XR, foot, 3 or more view No observ ation record ed. [email or web address] [facility] [address] [place], [address], 11/20/2022 08:27:39 Result Notes None recorded. Problems Name Problem SNOMED Code Status Onset Date Resolution Date Notes Provider Name and Address Organization Details Recorded Time Hypertensive disorder 10888339 Active 2022 ZANA CHARLTON null, [place] - [facility] 3 11:28:03 Asthma 798787661 Active 2022 ZANA CHARLTON null, PA - [facility] 3 11:28:13 Hyperlipidemia 48825310 Active 2022 ZANA CHARLTON null, PA - [facility] 3 11:29:19 Cobalamin deficiency 347589209 Active 2022 ZANA CHARLTON null, PA - [facility] 3 11:30:02 Diabetes mellitus 60530128 Active 2022 ZANA CHARLTON null, PA - [facility] 3 11:30:11 Gastroesophage al reflux disease 273169128 Active 2022 ZANA CHARLTON null, PA - [facility] 3 11:30:43 Anemia 712228165 Active 2022 ZANA CHARLTON null, PA - [facility] 3 11:30:50 Hyponatremia 63403986 Active 2022 ZANA CHARLTON null, PA - [facility] 3 11:31:05 Problem Notes None recorded. Procedures Surgical History None recorded. Imaging Results Imaging Date Name Status LastModified by Organiz ation Details LastModified Time 11/19/2022 XR, foot, 3 or more view completed [email or web address] [facility] [address] [place], [address], 11/20/2022 08:27:39 Procedure Notes None recorded. Medical Equipment None Reported. Allergies Allergen ID Allergen Name Allergen Category Reaction Reaction Severity Criticality Documentation Date Start Date Code Code System Note Provider Name and Address Organization Details Recorded Time 175841 Substance with sulfonami de structure and antibacte rial mechanism of action (substanc e) medicatio n hives Not available Not available 11/19/2022 33574 8003 SNOMED PANKAJ Medina - [facility] [...] Updated DateTime 3 165.1 cm 43.9 kg/m2 670205. 39 g 10 18 /min 100 % 100 % 76 /min 97.5 [degF] 157 mm[Hg] 85 mm[Hg] ZANA LIRA [facility] 3 11:19:22 Social History Question Answer Notes LastModified by Organizat ion Details LastModified Time Tobacco Smoking Status Never Smoker ZANA tyler PA [facility] 11/19/2022 11:18:12 What Is Your Level Of Alcohol Consumption? None [email or web address] Information not available 11/19/2022 Do You Use Any Illicit Or Recreational Drugs? No [email or web address] Information not available 11/19/2022 Have You Recently Traveled Abroad? No Information not available 11/19/2022 Do You Or Have You Ever Used Any Other Forms Of Tobacco Or Nicotine? No [email or web address] Information not available 11/19/2022 Sex: Unknown Functional Status None recorded. Mental Status None recorded. Family History Relationship Description Onset Age of this Age Resolved Age Notes LastModified by Organization Details LastModified Time Father No current problems or disability [email or web address] Not available 11/19 11:17:55 Mother No current problems or disability [email or web address] Not available 11/19 11:17:55 Medical History No medical history recorded. Past Encounters Encounter ID Performer Location Encounter Start Date Encounter Closed Date Diagnosis/Indication Diagnosis SNOMED-CT Code Diagnosis ICD10 Code Diagnosis Note [id number] [facility] [facility] [address] [place] [address] 11/11/2017 12:27:03 11/11/2017 14:11:50 [id number] [facility] [facility] [address] [place] [address] 07/16/2019 09:34:06 07/16/2019 10:03:45 [id number] [address] [place] [address] 12/30/2019 18:13:51 12/30/2019 19:22:33 [id number] [address] [address] [place] [address] 05/10/2022 10:31:31 05/10/2022 12:37:38 [id number] [address] [place] [address] 09/24/2019 18:43:51 09/24/2019 19:35:54 [id number] [address] [address] [place] [address] 10/02/2019 17:34:39 10/02/2019 17:59:04 [id number] [address] [place] [address] 03/31/2021 12:12:43 03/31/2021 13:12:15 [id number] [address] [address] [place] [address] 04/18/2021 16:40:29 04/18/2021 17:49:54 [id number] [address] [place] [address] 11/20/2019 12:14:41 11/20/2019 13:14:49 [id number] Ag Lara MD [address] [place] [address] 11/19/2022 11:04:24 11/19/2022 12:41:23 Pain in left foot [id number] 08377 M79.672 Imaging did not indicate acute fracture but we will send it to the radiologis t to review.Candace silva has good distal pulses. PPatient has been [...] today and the radiology interpreta tion. Dizziness 824876226 R42 Vital stable. Suicidal thoughts 404142 6 R45.851 Patient has SI and HI [...] [place] B[place] [employer] Raulito Zepeda [id number] [id number] [place] 12/30/2019 2 [place] [facility] Raulito R Green [id number] [place] 03/31/2021 1 [place] [employer] Raulito Zepeda [id number] [id number] Raulito Martin [place] 03/31/2021 2 [place] [facility] Raulito Zepeda [id number] [place] R [place] 04/18/2021 1 [place] [employer] Raulito Zepeda [id number] F51 Raulito Martin [place] 04/18/2021 2 [place] Raulito Zepeda [id number] Raulito Zepeda 05/10/2022 1 [place]ICARE B-[place]: [facility] Raulito Zepeda [id number] [id number] Raulito Zepeda 05/10/2022 2 [place] Raulito Zepeda [id number] Raulito Zepeda 11/19/2022 1 MEDICARE B-[place]: [facility] Raulito Zepeda [id number] [id number] Raulito Zepeda 11/19/2022 2 [place] Raulito Zepeda [id number] Raulito Zepeda Notes Date Note Type Note [...] himself or someone else. Ag Lara MD [address] [place], [address], [place] - [facility] 11/19/2022 13:08:30
== END 2025-03-09 12:25 | disposition home or self-care (01) ==
PROVIDERS: Physician Assistant; Emergency Provider Emergency Medicine
DX: J40 Bronchitis, not specified as acute or chronic (principal); Z03.818 Encounter for observation for suspected exposure to other biological agents ruled out; R05.9 Cough, unspecified; E11.9 Type 2 diabetes mellitus without complications; I10 Essential (primary) hypertension; E78.5 Hyperlipidemia, unspecified; Z79.02 Long term (current) use of antithrombotics/antiplatelets; Z79.899 Other long term (current) drug therapy
CPT/HCPCS: 0241U; 71045; 94640; 99284; 99285

== ENCOUNTER → 2025-03-09 10:32 | Outpatient (BNV) | payer MEDICARE, MEDICAID, SELFPAY | PROVIDERS: Emergency Provider Emergency Medicine; Visit Provider Radiology Diagnostic Radiology | DX: R05.9 Cough, unspecified (principal); R09.02 Hypoxemia | CPT/HCPCS: 71045 ==

== ENCOUNTER 2025-03-21 09:12 | Outpatient (AMB) | payer MEDICARE, MEDICAID, SELFPAY ==
--- NOTE | 2025-03-21 09:16 | A.OFFPC_ITS ---
Vital Signs 03/21/25 09:18 Height 5 ft 5 in Weight 223 lb BMI 37.1 BP 120/70 Blood Pressure Location Lt brachial Position Sitting Pulse 74 Pulse Source Pulse Oximeter Temp 97.1 F Temp Source Temporal Artery Scan Pulse Oximetry (%) 96 Oxygen Delivery Method Room Air Intake Visit Reasons: EDF [facility] Bronchitis 03/09 Intake Note: Patient is here to follow-up after a visit the emergency department at [facility] on 03/09/25. Complaint of swelling of both feet. 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 Specialist Required: No Loading Inspector: Present Accompanied by: Staff Allergies Sulfa (Sulfonamide Antibiotics) Allergy (Severe, Verified 03/21/25 09:25) CHAVEZ ALICIA REACTION trimethoprim Allergy (Mild, Verified 03/21/25 09:25) UNKNOWN lactose Adverse Reaction (Mild, Verified 03/21/25 09:25) STOMACH UPSET Medication List - Last Reconciled 03/21/25 by Tayler Holt PA-C acetaminophen 650 mg (2 x 325 mg) PO Q4H PRN 90 days albuterol sulfate 90 mcg/actuation 2 puffs inhalation Q6H PRN [[id number] As directed] atorvastatin 10 mg PO BEDTIME [Bilateral custom AFO As directed] bismuth subsalicylate (Pepto-Bismol) 524 mg (30 mL) PO QID PRN 7 days blood sugar diagnostic (Paperhater.com No Coding strips) As directed 2 times per day blood-glucose meter (Aquirisuch Ultra2 Meter) test once daily blood-glucose meter (Paperhater[employer] Autocode Blood Glucose Monitoring System) As directed cholecalciferol (vitamin D3) 25 mcg PO DAILY clonidine HCl 0.1 mg PO BEDTIME [email or web address],knee,reg,xlrg As directed 10-20 mm HG cyanocobalamin (vitamin B-12) 1,000 mcg PO BEDTIME dextromethorphan polistirex ER (Delsym 12 hour) 10 mL PO Q12H PRN [DIABETIC SHOES/INSERTS As directed] divalproex ER 1,000 mg PO BID empagliflozin (Jardiance) 25 mg PO DAILY esomeprazole magnesium (Nexium) 40 mg PO BEDTIME ferrous sulfate 325 mg PO BID fluoride (sodium) 1.1% (PreviDent 5000 Booster Plus) 1 appl dental BID fluticasone furoate-vilanterol 200-25 mcg/dose (Breo Ellipta) 1 inh inhalation DAILY fluticasone propionate 50 mcg/actuation (Flonase Allergy Relief) 1 spray intranasal BID gabapentin 300 mg PO BID guaifenesin (Siltussin SA) 200 mg PO Q4H PRN [Heat Moldable shoe inserts As directed] hydralazine 50 mg PO TID hydroxyzine pamoate 50 mg PO DAILY PRN lactase (Lactaid) 3,000 units PO TIDWM PRN lancets (SpaceCurve UltraSoft 2 Lancet) test once daily lancets (Paperhater[employer] Lancets) As directed check BS twice a day lancing device (Paperhater.com Lancing Device) As directed lidocaine 5% 1 patch topical DAILY PRN lisinopril 5 mg PO DAILY loperamide 2 mg PO Q6H PRN methylcellulose (laxative) (Citrucel) 1,000 mg (2 x 500 mg) PO DAILY 30 days xeazutaq-xlqighpmtNc-qroxyvufN 3.5-400-5,000 bz-tgvu-rzfs (Triple Antibiotic) 1 appl topical BID nystatin 1 appl topical TID PRN ondansetron 4 mg PO Q6H PRN propranolol 20 mg PO TID@0800,1600,2000 90 days risperidone 3 mg PO BID sennosides (senna) 17.2 mg PO DAILY PRN starch (thickening) (Diafoods Thick-It oral powder) Add thick it powder to food and beverage using enclosed measuring spoon TID 30 days valacyclovir 1,000 mg PO TID Tobacco use date assessed: 03/21/25 Dental Screening Dental Screen Date: 11/12/24 HPI EDF [facility] Bronchitis 03/09 HPI Details 54-year-old male with past medical histo ry of mental behavioral problem, cerebellar ataxia, diabetes mellitus, hypercholesterolemia, hypertension, asthma and atrial flutter last seen 12/2024 coming in for hospital discharge follow up. In review of the notes, patient was seen in [facility] ED 03/09/2025 for cough, fatigue and chest congestion.?Patient was diagnosed with bronchitis and treated with prednisone, Augmentin and azithromycin advised to also take Mucinex and discharged home. Presenting with a persistent cough and swelling in both legs. Diagnosed with acute bronchitis, the patient completed antibiotics and steroids, yet the cough continues without fever. The cough is intermittent post-treatment, producing yellow sputum. Peripheral edema in both legs persists, made worse likely due to insufficient leg elevation and previously managed with furosemide, which is now stopped. Notably, the patient has experienced shifted mental health perceptions, with escalations in stress-related self-harm thoughts, exacerbated by resident living situations. [facility] Medical History Feeling suicidal Tinea cruris Leg swelling Atrial flutter Atrial fib/flutter, transient A-fib Arrhythmia Abnormal EKG Contusion of left ankle Annual physical exam Abdominal pain Back pain Positive colorectal cancer screening using Cologuard test Precordial chest pain Hospital discharge follow-up Chest pain Right ankle pain Musculoskeletal chest pain Left-sided chest pain Back pain Fall Dysphagia Acute kidney injury Gait instability Suicidal ideation COVID-19 Hypomagnesemia Diarrhea Abdominal pain Ankle pain, left Left ankle sprain Seizure disorder Hypertension Anxiety Hyponatremia Cerebellar ataxia Anemia Lactose intolerance Vertigo Asthma Mental disability Type 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 Proteinuria Hyperlipidemia LDL goal <100 Essential hypertension Surgical History Hx of surgical procedure (07/22/24) Hx of colonoscopy History of orchiectomy Family History Father Myocardial infarction CVD (cardiovascular disease) Diabetes mellitus Mother Diabetes mellitus HTN (hypertension) Brother In good health Sister In good health Social History Household Members: Other Household Members Other:: from assisted Housing: House Housing Other:: assisted [facility] [address] [phone] Do you presently have visiting nurse or other home services: Yes 75 years or older and lives alone: No Unable to assess alcohol history related to: Unknown Alcohol intake: former 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 Patient Tobacco Use Status: Never used Tobacco Tobacco use type: Cigarette e-Cigarette/Vaping Use: Never Used Second Hand Smoke Exposure: No Advance Directives Date on File: 03/07/21 service: No Current occupational status: disabled Cognitive needs: Yes (walker) Hearing needs: No Vision needs: Yes (glasses) Questionnaire Thrive Questionnaire Date Thrive assessed: 11/12/24 CHANI-7 AMB Questionnaire CHANI-7 Date CHANI - 7 assessed: 11/12/24 Source: Developed by Drs. Wellington López, Monica Jackson, Ray Nguyen and colleagues, with an educational perez from [employer]. Review of Systems Const Denies body aches, Denies chills, Denies fever(s), Denies headache(s) and Denies poor appetite Eyes Reports no additional complaints ENT Denies dizziness and Denies headache(s) Card Denies chest pain, Reports leg edema and Denies dyspnea Resp Reports cough (With mild productive cough), Denies excessive phlegm production and Denies dyspnea GI Denies constipation and Denies diarrhea Reports no additional complaints Musc Reports no additional complaints and Denies abnormal gait Skin/Breast Reports system reviewed and no additional complaints, except as documented Neuro Denies abnormal gait, Denies dizziness and Denies headache(s) Psych Reports no additional complaints Physical exam (Primary Care) Vital Signs: Last Vital Signs Temp 97.1 F 03/21/25 09:18 Pulse 74 03/21/25 09:18 BP 120/70 03/21/25 09:18 Pulse Ox 96 03/21/25 09:18 Oxygen Delivery Method Room Air 03/21/25 09:18 BMI result Body Mass Index 37.1 Tobacco/Smoking Status: Tobacco use Status Tobacco use date assessed 03/21/25 03/21/25 09:24 Patient Tobacco Use Status Never used Tobacco 03/21/25 09:24 Tobacco use type Cigarette 03/21/25 09:24 e-Cigarette/Vaping Use Never Used 03/21/25 09:24 Thrive Assessment: Date of Thrive Assessment Date Thrive assessed 11/12/24 03/21/25 09:24 Const General: cooperative, healthy appearing, comfortable and no acute distress Orientation/consciousness: patient oriented x3 HENMT Head: Yes normocephalic Ears: hearing grossly normal bilaterally General nose exam: Normal external nose present Eyes General: appearance normal, both eyes and all related structures Conjunctivae: conjunctivae normal Neck Neck: Yes full ROM and Yes no lymphadenopathy Resp Effort & Inspection: normal respiratory effort Auscultation: clear to auscultation bilaterally, no crackles, no rales, no rhonchi and no wheezes Cardio Rate: regular rate Rhythm: regular rhythm Skin General skin exam: no rashes or lesions noted Neuro General: patient oriented x3 Gait exam (Neuro): Normal gait present Extrem Other: 1+ pitting edema bilateral lower extremities without overlying skin changes. No redness, warmth, tenderness to palpation of bilateral lower extremities including bilateral calves General: Yes normal to inspection, Yes full ROM and Yes edema Psych Affect: normal affect Attitude: cooperative Insight: Good insight present (Psych) Judgement: Good judgement present (Psych) Coding Level of Care Code Est Pt Level 4 (02029) Diagnoses Gastroesophageal reflux disease, unspecified whether esophagitis present K21.9 Esophagitis presence: esophagitis presence not specified Essential hypertension I10 Acute cough R05.1 Cough type: acute Leg swelling M79.89 Mental and behavioral problem F48.9; F69 Assessment & Plan Assessment & Plan (1) GERD (gastroesophageal reflux disease): Code(s): K21.9 - Gastro-esophageal reflux disease without esophagitis Category: Medical Qualifiers: Esophagitis presence: esophagitis presence not specified Qualified Code(s): K21.9 - Gastro-esophageal reflux disease without esophagitis Plan: Avoid trigger foods such as citrus, tomato products, soda, caffeine, spicy foods and other foods that may be irritating to your stomach. Avoid laying flat 3-4 hours after eating and elevate the head of the bed 30 degrees to prevent acid from moving into the esophagus. (2) Essential hypertension: Code(s): I10 - Essential (primary) hypertension Category: Medical Plan: Continue on current blood pressure medication. Avoid salt intake and encourage healthy diet and regular exercise. Recently restarted on lisinopril 5 mg (3) Cough: Code(s): R05.9 - Cough, unspecified Category: Medical Qualifiers: Cough type: acute Qualified Code(s): R05.1 - Acute cough Plan: Cough is still persistent on exam bilateral lungs are clear to auscultation. Mild rhonchi that cleared with cough. Advised at this time to continue to use Mucinex as needed for productive cough and continue to monitor symptoms. Reviewed red flag symptoms and when to present for re-evaluation. (4) Leg swelling: Code(s): M79.89 - Other specified soft tissue disorders Category: Medical Plan: Patient having 1+ pitting edema of bilateral lower extremities. States he did not elevate his legs yesterday. Per assisted staff patient has not had bilateral leg swelling since he began elevated in the legs. He can not tolerate compression stockings. He was previously on Lasix but was discontinued due to worsening kidney function. Continue with conservative measures. (5) Mental and behavioral problem: Code(s): F48.9 - Nonpsychotic mental disorder, unspecified; F69 - Unspecified disorder of adult personality and behavior Category: Medical Plan: Patient endorsing feelings of self-harm. Per assisted patient reports these feelings daily and has been evaluated several times in the ED as well as by his psychiatrist and counselor for these feelings. I did discuss with patient if he truly feels he will hurt himself or others he should be evaluated in the ER. Patient and assisted both understand this. No immediate thoughts of self- harm. Plan This note was constructed using voice recognition software. While every effort has been made to ensure accuracy and land leasing examiner, still areas may have been included sometimes these areas may affect the content or meeting of the given symptoms. Total time spent caring for the patient today was 20 minutes. This includes time spent before the visit reviewing the chart, time spent during the visit, and time spent after the visit and documentation. Patient was informed and verbally consented to the use of an ambient scribe for clinic note documentation during this visit. Medications: New guaifenesin ER (Mucinex) 600 mg PO BID PRN 20 tabs 0RF cough R05.1 - Acute cough Discontinued guaifenesin (Siltussin SA) Discontinued Reason: Patient no longer taking 200 mg PO Q4H PRN Cough
[2025-03-21 09:18] VITALS: BP 120/70; PULSE 74; TEMP 36.2; O2SAT 96; BMI 37.1
--- OUTSIDE RECORDS SUMMARY | 2025-03-21 09:20 | XMS_ITS | Data Portability ---
Author Organization [facility] Address [address] [place] [address] Assessment No assessment recorded. Plan of Treatment Reminders Order Date Submit Date Provider Last Modified By Organization Details Last Modified Time Details Appointments None recorde d. Lab glucose , fingers tick, blood 023 11/19/19 [email or web address] [facility], [address] [place] [address], [address], 11:50:35 Referral None recorde d. Procedures None recorde d. Surgeries None recorde d. Imaging XR, foot, 3 or more view 023 11/19/19 NAT[facility], [address] [place], [address], 3 12:55:32 Medication Orders None recorde d. Patient TargetsNo targets recorded. Patient InstructionsNo instructions recorded. Reason for Referral None Reported. Results Created Date Observation Date Name Description Value Unit Range Abnormal Flag Note LastModifiedBy Organization Detail LastModifiedTime 11/19/1911/19/2022 gluco se, finge rstic k, blood blood sugar - non fasting mg/dL 80-140 = normal Not Available [address], [address], 11/19/2022 11:31:33 11/19/19 23 11/19/2022 gluco se, finge rstic k, blood blood sugar - fasting 193 mg/dL 80-125 = normal Not Available [address], [place], [address], 11/19/2022 11:31:33 11/19/19 23 11/19/2022 XR, foot, 3 or more view No observ ation record ed. [email or web address] [facility] [address] [place], [address], 11/20/2022 08:27:39 Result Notes None recorded. Problems Name Problem SNOMED Code Status Onset Date Resolution Date Notes Provider Name and Address Organization Details Recorded Time Hypertensive disorder 95415531 Active 2022 ZANA CHARLTON null, [place] - [facility] 3 11:28:03 Asthma 887104932 Active 2022 ZANA CHARLTON null, [place] - [facility] 3 11:28:13 Hyperlipidemia 61132384 Active 2022 ZANA CHARLTON null, [place] - [facility] 3 11:29:19 Cobalamin deficiency 040657762 Active 2022 ZANA CHARLTON null, [place] - [facility] 3 11:30:02 Diabetes mellitus 15021721 Active 2022 ZANA CHARLTON null, [place] - [facility] 3 11:30:11 Gastroesophage al reflux disease 609944511 Active 2022 ZANA CHARLTON null, [place] - [facility] 3 11:30:43 Anemia 898839590 Active 2022 ZANA CHARLTON null, [place] - [facility] 3 11:30:50 Hyponatremia 04278464 Active 2022 ZANA CHARLTON null, [place] - [facility] 3 11:31:05 Problem Notes None recorded. Procedures Surgical History None recorded. Imaging Results Imaging Date Name Status LastModified by Organiz ation Details LastModified Time 11/19/2022 XR, foot, 3 or more view completed [email or web address] [facility] [address] [place], [address], 11/20/2022 08:27:39 Procedure Notes None recorded. Medical Equipment None Reported. Allergies Allergen ID Allergen Name Allergen Category Reaction Reaction Severity Criticality Documentation Date Start Date Code Code System Note Provider Name and Address Organization Details Recorded Time 254535 Substance with sulfonami de structure and antibacte rial mechanism of action (substanc e) medicatio n hives Not available Not available 11/19/2022 72435 8003 SNOMED PANKAJ [place] - [facility] [...] Updated DateTime 3 165.1 cm 43.9 kg/m2 719545. 39 g 10 18 /min 100 % 100 % 76 /min 97.5 [degF] 157 mm[Hg] 85 mm[Hg] ZANA LIRA [employer] 3 11:19:22 Social History Question Answer Notes LastModified by Arcaris Details LastModified Time Tobacco Smoking Status Never Smoker ZANA tyler [facility] 11/19/2022 11:18:12 Have You Recently Traveled Abroad? No [email or web address] Information not available 11/19/2022 Sex: Unknown Functional Status Question Answer Note LastModified by Arcaris Details LastModified Time Do you use any illicit or recreational drugs? No Information not available 11/19/2022 Do you or have you ever used any other forms of tobacco or nicotine? No [email or web address] Information not available 11/19/2022 What is your level of alcohol consumption? None [email or web address] Information not available 11/19/2022 Mental Status None recorded. Family History Relationship Description Onset Age of this Age Resolved Age Notes LastModified by Organization Details LastModified Time Father No current problems or disability [email or web address] Not available 11/19 11:17:55 Mother No current problems or disability [email or web address] Not available 11/19 11:17:55 Medical History No medical history recorded. Past Encounters Encounter ID Performer Location Encounter Start Date Encounter Closed Date Diagnosis/Indication Diagnosis SNOMED-CT Code Diagnosis ICD10 Code Diagnosis Note [facility] [facility] [address] 11/11/2017 12:27:03 11/11/2017 14:11:50 [id number] [facility] [address] [facility] [place] [address] 07/16/2019 09:34:06 07/16/2019 10:03:45 [id number] [facility] [place] [address] 12/30/2019 18:13:51 12/30/2019 19:22:33 [id number] [address] [address] [facility] [place] [address] 05/10/2022 10:31:31 05/10/2022 12:37:38 [id number] [address] [address] [address] [facility] [place] [address] 09/24/2019 18:43:51 09/24/2019 19:35:54 [id number] [address] [address] [address] [facility] [place] [address] 10/02/2019 17:34:39 10/02/2019 17:59:04 [id number] [address] [address] [address] [address] [facility] [place] [address] 03/31/2021 12:12:43 03/31/2021 13:12:15 [id number] [address] [address] [facility] [place] [address] 04/18/2021 16:40:29 04/18/2021 17:49:54 [id number] [address] [address] [facility] [place] [address] 11/20/2019 12:14:41 11/20/2019 13:14:49 [id number] Ag Lara MD [address] [address] [place] [address] 11/19/2022 11:04:24 11/19/2022 12:41:23 Pain in left foot 2701655400 02016 M79.672 Imaging did not indicate acute fracture [...] today and the radiology interpreta tion. Dizziness 473748739 R42 Vital stable. Suicidal thoughts 471384 6 R45.851 Patient has SI and HI with plan and intent. Also auditory hallucinat ions.Avalos d 911 and will need ER evaluation . Health Concerns Section Related Observation LastModified by Organization Detai ls LastModified Time None Recorded Concern Status LastModified by Organization Details LastModified Time None Recorded Advance Directives Directive None Recorded Payers Insurance Date Sequence Insurance Name Policy Number Policy Ronquillo Covered Member ID Ronquillo Member ID Guarantor Name 11/19/2022 1 [place] [employer] Raulito Zepeda [id number] Raulito Zepeda 12/30/2022 2 [place] Raulito Zepeda [id number] Raulito Zepeda 11/19/2022 [place]IAN - SPECIALITY CLAIMS (MEDICARE [facility]) Raulito Zepeda [id number] Raulito Zepeda Notes Date Note Type Note [...] himself or someone else. Ag Lara MD [address] [place], [place] [address]J[place], [address], [place] - [facility] 11/19/2022 13:08:30
--- OUTSIDE RECORDS SUMMARY | 2025-03-21 09:20 | XMS_ITS | Clinical Summary ---
Author Organization [facility] Address [address] [place] [address] Phone Care Team Providers Care Peoplesoft Hr Developer Name Role Phone Robert Sumner MD Primary Care Provider [phone] Allergies Active Allergy Reactions Criticality Noted Date [...] Visit [facility] [address] [address] Chana Schrader ARNP Chronic kidney [...] Office Visit [facility] [place] [facility] [address] [address] Frantz Luis MD [address] [address] Health Maintenance Due Date Last Done Comments [...] Medicaid [place] Care Teams Peoplesoft Hr Developer Relationship Specialty Start Date End Date Robert Sumner MD [address] [place], [place] PCP - General 11/20/20
== END 2025-03-21 09:48 | disposition home or self-care (01) ==
LOC: HO.HMCH 09:13
PROVIDERS: PCP Internal Medicine
DX: K21.9 Gastro-esophageal reflux disease without esophagitis (principal); I10 Essential (primary) hypertension; R05.1 Acute cough; M79.89 Other specified soft tissue disorders; F48.9 Nonpsychotic mental disorder, unspecified; F69 Unspecified disorder of adult personality and behavior

== ENCOUNTER → 2025-03-21 09:12 | Outpatient (BNVA) | payer MEDICARE, MEDICAID, SELFPAY | PROVIDERS: PCP Internal Medicine | DX: K21.9 Gastro-esophageal reflux disease without esophagitis (principal); I10 Essential (primary) hypertension; R05.1 Acute cough; M79.89 Other specified soft tissue disorders; F48.9 Nonpsychotic mental disorder, unspecified; F69 Unspecified disorder of adult personality and behavior | CPT/HCPCS: 99212 ==

== ENCOUNTER 2025-04-01 14:05 | Outpatient (AMB) | payer MEDICARE, MEDICAID, SELFPAY ==
--- OUTSIDE RECORDS SUMMARY | 2025-04-01 14:08 | XMS_ITS | Data Portability ---
Author Organization [facility] Address [address] [place] [address] Assessment No assessment recorded. Plan of Treatment Reminders Order Date Submit Date Provider Last Modified By Organization Details Last Modified Time Details Appointments None recorde d. Lab glucose , fingers tick, blood 023 11/19/19 [email or web address] [facility], [address] [place] [address], [address], 11:50:35 Referral None recorde d. Procedures None recorde d. Surgeries None recorde d. Imaging XR, foot, 3 or more view 023 11/19/19 NAT[facility], [address] [place], [address], 3 12:55:32 Medication Orders None recorde d. Patient TargetsNo targets recorded. Patient InstructionsNo instructions recorded. Reason for Referral None Reported. Results Created Date Observation Date Name Description Value Unit Range Abnormal Flag Note LastModifiedBy Organization Detail LastModifiedTime 11/19/1911/19/2022 gluco se, finge rstic k, blood blood sugar - non fasting mg/dL 80-140 = normal Not Available [address], [address], 11/19/2022 11:31:33 11/19/19 23 11/19/2022 gluco se, finge rstic k, blood blood sugar - fasting 193 mg/dL 80-125 = normal Not Available [address], [place], [address], 11/19/2022 11:31:33 11/19/19 23 11/19/2022 XR, foot, 3 or more view No observ ation record ed. [email or web address] [facility] [address] [place], [address], 11/20/2022 08:27:39 Result Notes None recorded. Problems Name Problem SNOMED Code Status Onset Date Resolution Date Notes Provider Name and Address Organization Details Recorded Time Hypertensive disorder 87438827 Active 2022 ZANA CHARLTON null, [place] - [facility] 3 11:28:03 Asthma 247799998 Active 2022 ZANA CHARLTON null, [place] - [facility] 3 11:28:13 Hyperlipidemia 49713984 Active 2022 ZANA CHARLTON null, [place] - [facility] 3 11:29:19 Cobalamin deficiency 115842832 Active 2022 ZANA CHARLTON null, [place] - [facility] 3 11:30:02 Diabetes mellitus 89063881 Active 2022 ZANA CHARLTON null, [place] - [facility] 3 11:30:11 Gastroesophage al reflux disease 449408433 Active 2022 ZANA CHARLTON null, [place] - [facility] 3 11:30:43 Anemia 829943125 Active 2022 ZANA CHARLTON null, [place] - [facility] 3 11:30:50 Hyponatremia 95119785 Active 2022 ZANA CHARLTON null, [place] - [facility] 3 11:31:05 Problem Notes None recorded. Procedures Surgical History None recorded. Imaging Results Imaging Date Name Status LastModified by Organiz ation Details LastModified Time 11/19/2022 XR, foot, 3 or more view completed [email or web address] [facility] [address] [place], [address], 11/20/2022 08:27:39 Procedure Notes None recorded. Medical Equipment None Reported. Allergies Allergen ID Allergen Name Allergen Category Reaction Reaction Severity Criticality Documentation Date Start Date Code Code System Note Provider Name and Address Organization Details Recorded Time 974380 Substance with sulfonami de structure and antibacte rial mechanism of action (substanc e) medicatio n hives Not available Not available 11/19/2022 12109 8003 SNOMED PANKAJ [place] - [facility] [...] height Body mass index (BMI) Body weight Respiratory rate Oxygen saturation Oxygen saturation in Arterial blood by Pulse oximetry Heart rate Body temperature Systolic blood pressure Diastolic blood pressure Provider Name and Address Organization Details Last Updated DateTime 3 165.1 cm 43.9 kg/m2 910045. 39 g 18 /min 100 % 100 % 76 /min 97.5 [degF] 157 mm[Hg] 85 mm[Hg] ZANA CHARLTON [employer] 11:19:22 Social History Question Answer Notes LastModified by GoM[employer] Details LastModified Time Tobacco Smoking Status Never Smoker ZANA tyler [employer] 11/19/2022 11:18:12 Have You Recently Traveled Abroad? No Information not available 11/19/2022 Sex: Unknown Functional Status Question Answer Note LastModified by [employer] Details LastModified Time Do you use any illicit or recreational drugs? No [email or web address] Information not available 11/19/2022 Do you or have you ever used any other forms of tobacco or nicotine? No [email or web address] Information not available 11/19/2022 What is your level of alcohol consumption? None [email or web address] Information not available 11/19/2022 Mental Status None recorded. Family History Relationship Description Onset Age of this Age Resolved Age Notes LastModified by Organization Details LastModified Time Father No current problems or disability [email or web address] Not available 11/19 11:17:55 Mother No current problems or disability Not available 11/19 11:17:55 Medical History No medical history recorded. Past Encounters Encounter ID Performer Location Encounter Start Date Encounter Closed Date Diagnosis/Indication Diagnosis SNOMED-CT Code Diagnosis ICD10 Code Diagnosis Note [id number] [facility] [facility] [address] [place] [address] 11/11/2017 12:27:03 11/11/2017 14:11:50 [id number] [address] [address] [address] [place] [address] 07/16/2019 09:34:06 07/16/2019 10:03:[id number] [address] [place] [address] 12/30/2019 18:13:51 12/30/2019 19:22:33 [id number] [address] [place] [address] 05/10/2022 10:31:31 05/10/2022 12:37:38 [id number] [address] [address] [address] [place] [address] 09/24/2019 18:43:51 09/24/2019 19:35:54 [id number] [address] [address] [address] [place] [address] 10/02/2019 17:34:39 10/02/2019 17:59:04 [id number] [address] [address] [address] [place] [address] 03/31/2021 12:12:43 03/31/2021 13:12:15 [id number] [address] [address] [address] [address] [place] [address] 04/18/2021 16:40:29 04/18/2021 17:49:54 [id number] [address] [address] [address] [place] [address] 11/20/2019 12:14:41 11/20/2019 13:14:49 [id number] Ag Lara MD [address] [address] [place] [address] 11/19/2022 11:04:24 11/19/2022 12:41:23 Pain in left foot 1399980617 20855 M79.672 Imaging did not indicate acute fracture [...] today and the radiology interpreta tion. Dizziness 150972439 R42 Vital stable. Suicidal thoughts 717932 6 R45.851 Patient has SI and HI [...] MEDIC[place] B[place] [employer] Raulito Zepeda [id number] Raulito Zepeda 12/30/2022 2 [place] [facility] Raulito Zepeda [id number] Raulito Zepeda 11/19/2022 NORIDIAN - SPECIALITY CLAIMS (MEDICARE [facility]) Raulito Zepeda [id number] Raulito Zepeda Notes Date Note Type [...] himself or someone else. Ag Lara MD [address] [place] [address] [place], [address], [place] - [facility] 11/19/2022 13:08:30
[2025-04-01 14:14] VITALS: BP 112/72; PULSE 72; TEMP 36.3; BMI 38.0
--- NOTE | 2025-04-01 14:14 | MHC.PC.OV ---
Vital Signs 04/01/25 14:14 Height 5 ft 5 in Weight 228 lb 6 oz BMI 38.0 BP 112/72 Blood Pressure Location Lt brachial Position Sitting Pulse 72 Pulse Source Pulse Oximeter Temp 97.3 F Temp Source Temporal Artery Scan Oxygen Delivery Method Room Air Intake Visit Reasons: Water Retaining Legal Billing Specialist Required: No Accompanied by: Securities Clerk-Oswaldo Allergies Sulfa (Sulfonamide Antibiotics) Allergy (Severe, Verified 04/01/25 14:25) CHAVEZ ALICIA REACTION trimethoprim Allergy (Mild, Verified 04/01/25 14:25) UNKNOWN lactose Adverse Reaction (Mild, Verified 04/01/25 14:25) STOMACH UPSET Tobacco use date assessed: 03/21/25 Dental Screening Dental Screen Date: 11/12/24 [facility] Medical History (Reviewed 03/21/25 @ 09: by Tayler Holt PA-C) Feeling suicidal Tinea cruris Leg swelling Atrial flutter Atrial fib/flutter, transient A-fib Arrhythmia Abnormal EKG Contusion of left ankle Annual physical exam Abdominal pain Back pain Positive colorectal cancer screening using Cologuard test Precordial chest pain Hospital discharge follow-up Chest pain Right ankle pain Musculoskeletal chest pain Left-sided chest pain Back pain Fall Dysphagia Acute kidney injury Gait instability Suicidal ideation COVID-19 Hypomagnesemia Diarrhea Abdominal pain Ankle pain, left Left ankle sprain Seizure disorder Hypertension Anxiety Hyponatremia Cerebellar ataxia Anemia Lactose intolerance Vertigo Asthma Mental disability Type 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 Proteinuria Hyperlipidemia LDL goal <100 Essential hypertension Surgical History Hx of surgical procedure (07/22/24) Hx of colonoscopy History of orchiectomy Family History Father Myocardial infarction CVD (cardiovascular disease) Diabetes mellitus Mother Diabetes mellitus HTN (hypertension) Brother In good health Sister In good health Social History Household Members: Other Household Members Other:: from assisted Housing: House Housing Other:: assisted [facility] [address] Esteban [phone] Do you presently have visiting nurse or other home services: Yes 75 years or older and lives alone: No Unable to assess alcohol history related to: Unknown Alcohol intake: former 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 1. Little interest or pleasure in doing things: not at all 2. Feeling down, depressed, or hopeless: not at all 3. Trouble falling or staying asleep, or sleeping too much: not at all 4. Feeling tired or having little energy: not at all 5. Poor appetite or overeating: not at all 6. Feeling bad about yourself - or that you are a failure or have let yourself or your family down: not at all 7. Trouble concentrating on things, such as reading the newspaper or watching television: not at all 8. Moving or speaking so slowly that other people could have noticed. Or the opposite - being so fidgety or restless that you have been moving around a lot more than usual: not at all 9. Thoughts that you would be better off or of hurting yourself in some way: not at all Total score: 0 Source: Developed by Drs. Wellington López, Monica Jackson, Ray Nguyen and colleagues, with an educational perez from [email or web address]. Thrive Questionnaire Date Thrive assessed: 11/12/24 I am a: Parent/Caregiver What is your living situation today?: I choose not to answer this question Within the past 12 months, did the food you bought not last and you didn't have the money to get more?: I choose not to answer this question Within the past 12 months, did you worry whether your food would run out before you got money to buy more?: I choose not to answer this question Do you have trouble paying for medicines?: No Do you have trouble getting transportation to medical appointments?: No Do you have trouble paying your heating and electricity bill?: No Do you have trouble taking care of your child, family member or friend?: No Do you have trouble with day-to-day activities such as bathing, preparing meals, shopping, managing finances, etc.?: No Are you currently unemployed and looking for a job?: I choose not to answer this question Are you interested in more education?: No Please select the resources that you would like help with: None Currently or been in a relationship where the following occur: I choose not to answer THRIVE Score: 0 AUDIT C Alcohol Use Questionnaire (AUDIT-C) 1. How often do you have a drink containing alcohol?: Never Total Score: 0 CHANI-7 AMB Questionnaire CHANI-7 Date CHANI - 7 assessed: 11/12/24 Feeling nervous, anxious, or on edge: 0 = Not at all Not being able to stop or control worryin = Not at all Worrying too much about different things: 0 = Not at all Trouble relaxin = Not at all Being so restless that it is hard to sit still: 0 = Not at all Becoming easily annoyed or irritable: 0 = Not at all Feeling afraid as if something awful might happen: 0 = Not at all Total CHANI-7 score (0-4 normal; 5-9 mild; 10-14 moderate; 15-21 severe): 0 Source: Developed by Drs. Wellington López, Monica Jackson, Ray Nguyen and colleagues, with an educational perez from [email or web address]. Physical exam (Primary Care) Vital Signs: Last Vital Signs Temp 97.3 F 04/01/25 14:14 Oxygen Delivery Method Room Air 04/01/25 14:14 BMI result Body Mass Index 38.0 Tobacco/Smoking Status: Tobacco use Status Tobacco use date assessed 03/21/25 04/01/25 14:18 Patient Tobacco Use Status Never used Tobacco 04/01/25 14:18 Tobacco use type Cigarette 04/01/25 14:18 e-Cigarette/Vaping Use Never Used 04/01/25 14:18 PHQ-9: PHQ-9 Score PHQ-9: Total score 0 04/01/25 14:18 Thrive Assessment: Date of Thrive Assessment Date Thrive assessed 11/12/24 04/01/25 14:18 Currently or been in a relationship where the following occur: I choose not to answer Const General: alert; No acute distress Eyes Conjunctivae: conjunctivae normal Resp Auscultation: clear to auscultation bilaterally Cardio Rate: regular rate Rhythm: regular rhythm GI Inspection: Yes normal to inspection Extrem General: Yes normal to inspection and No edema Coding Level of Care Code Est Pt Level 4 (14219) Complex EM visit Add On G2211 Diagnoses Type 2 diabetes mellitus with hyperglycemia, without long-term current use of insulin E11.65 Diabetes mellitus fci insulin use: without termite treater helper use Essential hypertension I10 Hyperlipidemia LDL goal <100 E78.5 Cerebellar ataxia G11.9 Moderate persistent asthma without complication J45.40 Asthma severity: moderate Asthma persistence: persistent Asthma complication type: uncomplicated Atrial flutter I48.92 Gastroesophageal reflux disease, unspecified whether esophagitis present K21.9 Esophagitis presence: esophagitis presence not specified Schizophrenia F20.9 Peripheral vascular disease I73.9 Assessment & Plan Assessment & Plan (1) Type 2 diabetes mellitus with hyperglycemia: Code(s): E11.65 - Type 2 diabetes mellitus with hyperglycemia Category: Medical Qualifiers: Diabetes mellitus termite treater helper insulin use: without termite treater helper use Qualified Code(s): E11.65 - Type 2 diabetes mellitus with hyperglycemia Plan: Decrease the amount of carbohydrate intake, pasta, bread, rice and potatoes are all sugar and that is aside from all the sweet stuff, remember that fruits are good but they are Sweet also. Patient is under control on Jardiance 25 mg once a day (2) Essential hypertension: Code(s): I10 - Essential (primary) hypertension Category: Medical Plan: Continue with blood pressure medication. Decrease salt intake and exercise on propranolol 20 mg 3 times a day lisinopril 5 mg once a day hydralazine 50 mg 3 times a day and clonidine 0.1 mg at bedtime (3) Hyperlipidemia LDL goal <100: Code(s): E78.5 - Hyperlipidemia, unspecified Category: Medical Plan: Avoid fried foods, chicken skin, eggs, butter margarine, pastries and meat. Be it pork or beef they have a lot of cholesterol on atorvastatin 10 mg once a day (4) Cerebellar ataxia: Code(s): G11.9 - Hereditary ataxia, unspecified Category: Medical Plan: Patient continues to walk with walker (5) Asthma: Code(s): J45.909 - Unspecified asthma, uncomplicated Category: Medical Qualifiers: Asthma severity: moderate Asthma persistence: persistent Asthma complication type: uncomplicated Qualified Code(s): J45.40 - Moderate persistent asthma, uncomplicated Plan: Patient on albuterol inhaler and Breo reminded about rinsing mouth after using. (6) Atrial flutter: Code(s): I48.92 - Unspecified atrial flutter Category: Medical Plan: Stable (7) GERD (gastroesophageal reflux disease): Code(s): K21.9 - Gastro-esophageal reflux disease without esophagitis Category: Medical Qualifiers: Esophagitis presence: esophagitis presence not specified Qualified Code(s): K21.9 - Gastro-esophageal reflux disease without esophagitis Plan: Avoid the foods that causes that usually spicy foods, tomato products, juices, coffee, soda and foods that your sensitive to. After eating do not lie down, allow 3-4 hours before in lie down. And keep the head of bed above 30 degrees to avoid the acid from going up. (8) Schizophrenia: Comment: Dr. Martínez psychiatrist Code(s): F20.9 - Schizophrenia, unspecified Category: Medical Plan: Continue to follow-up with psychiatry (9) Peripheral vascular disease: Code(s): I73.9 - Peripheral vascular disease, unspecified Category: Medical Plan: ELEVATE LEGS, SUPPORT STOCKING AND exercise Plan History of Present Illness The patient is a 54-year-old male presenting with multiple chronic health conditions, including type 2 diabetes mellitus, hypercholesterolemia, and schizophrenia, managed with various medications. He reports stable glucose levels with an HbA1c of 6.1%. The patient's hypercholesterolemia has been controlled, with recent LDL levels at 80. Management of his asthma includes the use of an albuterol inhaler and Breo, with instructions to rinse his mouth post-use. Mild interstitial lung edema was identified on a chest X-ray, possibly indicating asthma exacerbation. The patient's experience of tardive dyskinesia is attributed to psychiatric medications, and management is ongoing with psychiatric services. The gastroesophageal reflux disease is currently controlled with omeprazole. The patient also struggles with obesity, weighing 228 pounds, with recommendations to lose weight due to health concerns. There are also advice concerning diet modifications and reduction in coffee consumption due to its impact on bowel movements. Health Maintenance - Monitoring of type 2 diabetes mellitus with Jardiance and regular HbA1c testing - Cholesterol management on atorvastatin, with LDL levels maintained at 80 - Regular cardiovascular monitoring due to history of atrial flutter and treatment with propranolol, lisinopril, and hydralazine - Follow-up with psychiatry for mental health management (schizophrenia and tardive dyskinesia) - Recommendations for weight management through dietary interventions - Management of asthma with inhaler and proper usage instruction - Control of gastroesophageal reflux disease with omeprazole Social History - Weight: 228 pounds; Obesity is a noted concern, with lifestyle modifications suggested - The patient uses a walker due to cerebellar ataxia - Coffee and diet impact bowel movements, with recommendations to reduce caffeine - Participation in activities such [employer], indicating engagement in social and recreational activities Review of Systems - Neurological: Reports cerebellar ataxia - Respiratory: Reports use of albuterol inhaler and Breo; concern for mild lung edema - Cardiovascular: Denies acute arrhythmias; atrial flutter managed - Gastrointestinal: Reports mild anemia and controlled GERD - Musculoskeletal: Reports obesity; under weight management recommendations - Psychiatric/Behavioral: Recurrent management of schizophrenia Physical Exam Results - Labs: HbA1c of 6.1%, indicating well-controlled diabetes; mild anemia reported; stable renal function noted - Imaging: Chest X-ray revealed mild interstitial lung edema versus acute small airway inflammatory process - Cholesterol Testing: LDL level of 80 Plan Management of the patient's type 2 diabetes continues with Jardiance, given the controlled recent HbA1c. Cardiovascular treatment includes propranolol, lisinopril, and hydralazine to manage atrial flutter effectively. The patient continues on atorvastatin for cholesterol management, with LDL levels deemed satisfactory. Asthma treatment is adhered to, utilizing albuterol inhalers properly. Omeprazole addresses gastroesophageal reflux, recommending weight loss and dietary modifications due to obesity. Comprehensive follow-up in psychiatry ensures continued management of schizophrenia while addressing tardive dyskinesia. Reduction of coffee consumption aids gastrointestinal function and aligns with nutritional guidance. Patient was informed and verbally consented to the use of an ambient scribe for clinic note documentation during this visit. Discussion Notes During our discussion, we reviewed the patient's controlled management of type 2 diabetes, satisfactory LDL levels with current cholesterol management, and the strategic combination of medications for atrial flutter. We touched upon the importance of inhaler use techniques and the role of omeprazole in managing GERD. Recommendations focused on reducing coffee intake to alleviate gastrointestinal symptoms and promoting weight loss as part of health maintenance. Continuation of psychiatric follow-up facilitates ongoing management of psychiatric conditions. Follow-up appointments and monitoring plans were reviewed to ensure optimal health outcomes. Patient Instructions - Continue current medications as prescribed. - Ensure proper inhaler technique and rinse mouth after use. - Follow up with psychiatry and address tardive dyskinesia concerns. - Discuss dietary changes focusing on weight loss and reducing coffee intake. - Return for follow-up as scheduled, or earlier if symptomatic changes occur. - Participate actively in prescribed health activities and weight management programs. Orders: Referrals Speech and Hearing Referral R13.10 - Dysphagia, unspecified Medications: Refilled [email or web address],xlrg As directed 10-20 mm HG 12 ea 0RF M79.89 - Other specified soft tissue disorders dextromethorphan polistirex ER (Delsym 12 hour) 10 mL PO Q12H PRN 89 mL 0RF cough E11.65 - Type 2 diabetes mellitus with hyperglycemia Discontinued lidocaine 5% leave on most painful area for 4-5 hours. Discontinued Reason: Doctor's Order 1 patch topical DAILY PRN 15 ea 0RF pain
== END 2025-04-01 14:47 | disposition home or self-care (01) ==
LOC: HO.HMCH 14:05
PROVIDERS: PCP Internal Medicine; Visit Provider Internal Medicine
DX: E11.65 Type 2 diabetes mellitus with hyperglycemia (principal); G11.9 Hereditary ataxia, unspecified; F20.9 Schizophrenia, unspecified; I48.92 Unspecified atrial flutter; I10 Essential (primary) hypertension; E78.5 Hyperlipidemia, unspecified; J45.40 Moderate persistent asthma, uncomplicated; K21.9 Gastro-esophageal reflux disease without esophagitis; I73.9 Peripheral vascular disease, unspecified

== ENCOUNTER → 2025-04-01 14:05 | Outpatient (BNVA) | payer MEDICARE, MEDICAID, SELFPAY | PROVIDERS: PCP Internal Medicine; Visit Provider Internal Medicine | DX: E11.65 Type 2 diabetes mellitus with hyperglycemia (principal); I10 Essential (primary) hypertension; E78.5 Hyperlipidemia, unspecified; G11.9 Hereditary ataxia, unspecified; J45.40 Moderate persistent asthma, uncomplicated; I48.92 Unspecified atrial flutter; K21.9 Gastro-esophageal reflux disease without esophagitis; F20.9 Schizophrenia, unspecified; I73.9 Peripheral vascular disease, unspecified | CPT/HCPCS: 99212 ==

== ENCOUNTER 2025-04-07 12:47 | Outpatient (AMB) | payer MEDICARE, MEDICAID, SELFPAY ==
--- OUTSIDE RECORDS SUMMARY | 2025-04-07 12:49 | XMS_ITS | Data Portability ---
Author Organization [facility] Address [address] [place] [address] Assessment No assessment recorded. Plan of Treatment Reminders Order Date Submit Date Provider Last Modified By Organization Details Last Modified Time Details Appointments None recorde d. Lab glucose , fingers tick, blood 023 11/19/19 [email or web address] _[facility], [address] [place] [address], [id number], 11:50:35 Referral None recorde d. Procedures None recorde d. Surgeries None recorde d. Imaging XR, foot, 3 or more view 023 11/19/19 NAT[facility], [address] [place], [address], 3 12:55:32 Medication Orders None recorde d. Patient TargetsNo targets recorded. Patient InstructionsNo instructions recorded. Reason for Referral None Reported. Results Created Date Observation Date Name Description Value Unit Range Abnormal Flag Note LastModifiedBy Organization Detail LastModifiedTime 11/19/1911/19/2022 gluco se, finge rstic k, blood blood sugar - non fasting mg/dL 80-140 = normal Not Available [address], [address], 11/19/2022 11:31:33 11/19/19 23 11/19/2022 gluco se, finge rstic k, blood blood sugar - fasting 193 mg/dL 80-125 = normal Not Available _[address], [place], [address], 11/19/2022 11:31:33 11/19/19 23 11/19/2022 XR, foot, 3 or more view No observ ation record ed. [email or web address] [facility] [address] [facility] [place], [address], 11/20/2022 08:27:39 Result Notes None recorded. Problems Name Problem SNOMED Code Status Onset Date Resolution Date Notes Provider Name and Address Organization Details Recorded Time Hypertensive disorder 36736352 Active 2022 ZANA CHARLTON null, [place] - [facility] 3 11:28:03 Asthma 920909665 Active 2022 ZANA CHARLTON null, [place] - [facility] 3 11:28:13 Hyperlipidemia 35175552 Active 2022 ZANA CHARLTON null, PA - [facility] 3 11:29:19 Cobalamin deficiency 159823113 Active 2022 ZANA CHARLTON null, PA - [facility] 3 11:30:02 Diabetes mellitus 52514291 Active 2022 ZANA CHARLTON null, PA - [facility] 3 11:30:11 Gastroesophage al reflux disease 706798933 Active 2022 ZANA CHARLTON null, PA - [facility] 3 11:30:43 Anemia 980272278 Active 2022 ZANA CHARLTON null, PA - [facility] 3 11:30:50 Hyponatremia 04851994 Active 2022 ZANA CHARLTON null, PA - [facility] 3 11:31:05 Problem Notes None recorded. Medical Equipment None Reported. Allergies Allergen ID Allergen Name Allergen Category Reaction Reaction Severity Criticality Documentation Date Start Date Code Code System Note Provider Name and Address Organization Details Recorded Time 689699 Substance with sulfonami de structure and antibacte rial mechanism of action (substanc e) medicatio n hives Not available Not available 11/19/2022 78796 8003 SNOMED PANKAJ Med[place] - [facility] [...] Updated DateTime 3 165.1 cm 43.9 kg/m2 786763. 39 g 18 /min 100 % 100 % 76 /min 97.5 [degF] 157 mm[Hg] 85 mm[Hg] ZANA CHARLTON PA - [facility] 11:19:22 Social History Question Answer Notes LastModified by [facility] Details LastModified Time Tobacco Smoking Status Never Smoker ZANA CHARLTON nayeli PA - [facility] 11/19/2022 11:18:12 Have You Recently Traveled Abroad? No [email or web address] Information not available 11/19/2022 Sex: Unknown Functional Status Question Answer Note LastModified by [facility] Details LastModified Time Do you use any illicit or recreational drugs? No [email or web address] Information not available 11/19/2022 Do you or have you ever used any other forms of tobacco or nicotine? No Information not available 11/19/2022 What is your level of alcohol consumption? None [email or web address] Information not available 11/19/2022 Mental Status None recorded. Family History Relationship Description Onset Age of this Age Resolved Age Notes LastModified by Organization Details LastModified Time Father No current problems or disability [email or web address] Not available 11/19 11:17:55 Mother No current problems or disability [email or web address] Not available 11/19 11:17:55 Medical History No medical history recorded. Past Encounters Encounter ID Performer Location Encounter Start Date Encounter Closed Date Diagnosis/Indication Diagnosis SNOMED-CT Code Diagnosis ICD10 Code Diagnosis Note [id number] [facility] [address] [place] [address] 11/11/2017 12:27:03 11/11/2017 14:11:50 [id number] [facility] [address] [address] [place] [address] 07/16/2019 09:34:06 07/16/2019 10:03:45 [id number] [address] [address] [address] 12/30/2019 18:13:51 12/30/2019 19:22:33 [id number] [address] [address] [address] [place] [address] 05/10/2022 10:31:31 05/10/2022 12:37:38 [id number] [address] [address] [address] [place] [address] 09/24/2019 18:43:51 09/24/2019 19:35:54 [id number] [address] [address] [place] [address] 10/02/2019 17:34:39 10/02/2019 17:59:04 [id number] [address] [address] [address] [place] [address] 03/31/2021 12:12:43 03/31/2021 13:12:15 [id number] [address] [address] [address] [place] [address] 04/18/2021 16:40:29 04/18/2021 17:49:54 [id number] [address] [address] [place] [address] 11/20/2019 12:14:41 11/20/2019 13:14:49 [id number] Ag Lara MD [address] [place] [address] 11/19/2022 11:04:24 11/19/2022 12:41:23 Pain in left foot [id number] 56860 M79.672 Imaging did not indicate acute fracture [...] today and the radiology interpreta tion. Dizziness 015728593 R42 Vital stable. Suicidal thoughts 075638 6 R45.851 Patient has SI and HI [...] ID Guarantor Name 11/19/2022 1 [place] [email or web address] Raulito Zepeda [id number] Raulito Zepeda 12/30/2022 2 [place] [facility] Raulito Zepeda [id number] Raulito Zepeda 11/19/2022 [facility] (MEDICARE [facility] A) Raulito Zepeda [id number] Raulito Zepeda Notes Date Note Type [...] or someone else. Ag Lara MD [address], [place], [address], [place] - [facility] 11/19/2022 13:08:30
--- NOTE | 2025-04-07 12:53 | MHC.OFFWIV ---
Intake Vital Signs 04/07/25 12:58 Height 5 ft 5 in Weight 228 lb BMI 37.9 BP 132/78 Blood Pressure Location Lt brachial Position Sitting Pulse 77 Pulse Source Pulse Oximeter Temp 97.9 F Temp Source Oral Pulse Oximetry (%) 97 Oxygen Delivery Method Room Air Intake Visit Reasons: EP-b/l feet swollen & pain Patient Tobacco Use Status: Never used Tobacco Allergies Sulfa (Sulfonamide Antibiotics) Allergy (Severe, Verified 04/01/25 14:25) CHAVEZ ALICIA REACTION trimethoprim Allergy (Mild, Verified 04/01/25 14:25) UNKNOWN lactose Adverse Reaction (Mild, Verified 04/01/25 14:25) STOMACH UPSET Do you need a note to return to daycare/school/sports/work: No HPI HPI Comments History of Present Illness Details Patient presents with [facility] staff for evaluation of lower extremity edema that he has had for the past 1 week. Patient is not currently wearing his compression stockings as prescribed and states that ?they are in the wash?. Patient denies having any chest pain, shortness of breath or calf pain bilaterally. Patient states that he is taking his medications as prescribed and is unaware of any new medication changes. [facility] Medical History Feeling suicidal Tinea cruris Leg swelling Atrial flutter Atrial fib/flutter, transient A-fib Arrhythmia Abnormal EKG Contusion of left ankle Annual physical exam Abdominal pain Back pain Positive colorectal cancer screening using Cologuard test Precordial chest pain Hospital discharge follow-up Chest pain Right ankle pain Musculoskeletal chest pain Left-sided chest pain Back pain Fall Dysphagia Acute kidney injury Gait instability Suicidal ideation COVID-19 Hypomagnesemia Diarrhea Abdominal pain Ankle pain, left Left ankle sprain Seizure disorder Hypertension Anxiety Hyponatremia Cerebellar ataxia Anemia Lactose intolerance Vertigo Asthma Mental disability Type 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 Proteinuria Hyperlipidemia LDL goal <100 Essential hypertension Surgical History Hx of surgical procedure (07/22/24) Hx of colonoscopy History of orchiectomy Family History Father Myocardial infarction CVD (cardiovascular disease) Diabetes mellitus Mother Diabetes mellitus HTN (hypertension) Brother In good health Sister In good health Social History Household Members: Other Household Members Other:: from [facility] Housing: House Housing Other:: [facility] Samm Esteban [phone] Do you presently have visiting nurse or other home services: Yes 75 years or older and lives alone: No Unable to assess alcohol history related to: Unknown Alcohol intake: former 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 Patient Tobacco Use Status: Never used Tobacco Tobacco use type: Cigarette e-Cigarette/Vaping Use: Never Used Second Hand Smoke Exposure: No Advance Directives Date on File: 03/07/21 service: No Current occupational status: disabled Cognitive needs: Yes (walker) Hearing needs: No Vision needs: Yes (glasses) Review of Systems Const All systems reviewed & are unremarkable except as noted in HPI and below Reports no additional complaints Eyes Reports no additional complaints ENT Reports no additional complaints Card Reports no additional complaints, Denies chest pain, Reports pedal edema, Reports edema and Denies dyspnea Resp Reports no additional complaints and Denies dyspnea GI Reports no additional complaints Reports no additional complaints Musc Reports no additional complaints Skin/Breast Reports system reviewed and no additional complaints, except as documented Neuro Reports no additional complaints Psych Reports no additional complaints Roman/Lymph Reports no additional complaints Aller/Immun Reports no additional complaints Physical Exam Vital Signs: Last Vital Signs Temp 97.9 F 04/07/25 12:58 Pulse 77 04/07/25 12:58 BP 132/78 04/07/25 12:58 Pulse Ox 97 04/07/25 12:58 Oxygen Delivery Method Room Air 04/07/25 12:58 BMI result Body Mass Index 37.9 Const General: cooperative, healthy appearing, comfortable, no acute distress, well developed, alert, awake, Physically active and acute distress Nutritional Appearance: well nourished Orientation/consciousness: patient oriented x3 Limitations: no limitations Resp Effort & Inspection: normal respiratory effort, able to speak in complete sentences and not tachypneic Auscultation: clear to auscultation bilaterally Cardio Rate: regular rate Rhythm: regular rhythm Skin Other: distal lower extremity +1 pitting edema including pedal edema equally and bilaterally, no erythema, no calf tenderness bilaterally Neuro General: patient oriented x3 Extrem Other: Ambulating with a walker. Psych Appearance: grossly normal Speech and movement: Normal speech and movement present Affect: normal affect Assessment & Plan Assessment & Plan (1) Bilateral lower extremity edema: Comment: Patient has a history of chronic lower extremity edema. Patient will be prescribed low-dose torsemide to take for the next 5 days and encouraged to wear his compression stockings daily. Code(s): R60.0 - Localized edema Plan: Torsemide 20 mg once daily x5 days, keep lower extremities elevated while at rest, wear compression stockings daily. Follow up with PCP within 7-10 days. Medications: New torsemide 20 mg PO DAILY 5 tabs 0RF Coding Level of Care Code Est Pt Level 3 (78770) Diagnoses Bilateral lower extremity edema R60.0 Time Spent (min) 20
[2025-04-07 12:58] VITALS: BP 132/78; PULSE 77; TEMP 36.6; O2SAT 97; BMI 37.9
== END 2025-04-07 13:48 | disposition home or self-care (01) ==
PROVIDERS: Visit Provider Physician Assistant
DX: R60.0 Localized edema (principal)

== ENCOUNTER → 2025-04-07 12:47 | Outpatient (BNVA) | payer MEDICARE, MEDICAID, SELFPAY | PROVIDERS: PCP Internal Medicine; Visit Provider Physician Assistant | DX: R60.0 Localized edema (principal) | CPT/HCPCS: 99212 ==

== ENCOUNTER 2025-04-19 14:00 | Outpatient (REF) | payer MEDICARE, MEDICAID, SELFPAY ==
--- NOTE | ~2025-04-19 | FL_ITS ---
EXAMINATION: Modified Barium Swallow CLINICAL INFORMATION: Dysphagia. COMPARISON: None. TECHNIQUE: Modified barium swallow was performed under lateral fluoroscopy with patient in standing position. Barium mixed with solids and liquids of different consistencies was administered by the speech pathologist. Examination was recorded in the fluoroscopy suite. FINDINGS: Following oral administration of thin consistency barium, there was aspiration to the level of the cords, with subglottic aspiration of a tiny amount of barium. Transient penetration was evident on nectar thin liquids. No penetration or aspiration was evident on honey thick liquids. There was persistent vallecular and piriform sinus pooling of residues, with early spillover. FLUOROSCOPY TIME: 3 minutes, 36 seconds Number of Spot Images: N/A DOSE AREA PRODUCT: 1831 uGy-m2 (microgray-meter squared) FL/FL Modified Barium Swallow IMPRESSION: 1. Subglottic aspiration on thin liquids. 2. Transient laryngeal penetration on nectar thin liquids. 3. Persistent early spillover and vallecular and piriform sinus pooling of residues. Please refer to the dedicated speech therapy report for further detail. Electronically signed by: Tj Luis MD 04/19/2025 03:25 PM EDT
--- OUTSIDE RECORDS SUMMARY | 2025-04-19 16:44 | XMS_ITS | Data Portability ---
Author Organization [facility] Address [address] [place] [id number] Assessment No assessment recorded. Plan of Treatment Reminders Order Date Submit Date Provider Last Modified By Organization Details Last Modified Time Details Appointments None recorde d. Lab glucose , fingers tick, blood 023 11/19/19 [email or web address] _[facility], [address] [place] [address], [id number], 11:50:35 Referral None recorde d. Procedures None recorde d. Surgeries None recorde d. Imaging XR, foot, 3 or more view 023 11/19/19 [facility], [address] [place], [address], 3 12:55:32 Medication Orders None recorde d. Patient TargetsNo targets recorded. Patient InstructionsNo instructions recorded. Reason for Referral None Reported. Results Created Date Observation Date Name Description Value Unit Range Abnormal Flag Note LastModifiedBy Organization Detail LastModifiedTime 11/19/1911/19/2022 gluco se, finge rstic k, blood blood sugar - non fasting mg/dL 80-140 = normal Not Available [address], [address], 11/19/2022 11:31:33 11/19/19 23 11/19/2022 gluco se, finge rstic k, blood blood sugar - fasting 193 mg/dL 80-125 = normal Not Available _[address], [place], [address], 11/19/2022 11:31:33 11/19/19 23 11/19/2022 XR, foot, 3 or more view No observ ation record ed. [email or web address] [facility] [address] [facility] [place], [address], 11/20/2022 08:27:39 Result Notes None recorded. Problems Name Problem SNOMED Code Status Onset Date Resolution Date Notes Provider Name and Address Organization Details Recorded Time Hypertensive disorder 65824478 Active 2022 ZANA CHARLTON null, [place] - [facility] 3 11:28:03 Asthma 741208946 Active 2022 ZANA CHARLTON null, [place] - [facility] 3 11:28:13 Hyperlipidemia 28674921 Active 2022 ZANA CHARLTON null, [place] - [facility] 3 11:29:19 Cobalamin deficiency 540005514 Active 2022 ZANA CHARLTON null, PA - [facility] 3 11:30:02 Diabetes mellitus 56750546 Active 2022 ZANA CHARLTON null, [place] - [facility] 3 11:30:11 Gastroesophage al reflux disease 572812223 Active 2022 ZANA CHARLTON null, PA - [facility] 3 11:30:43 Anemia 567903811 Active 2022 ZANA CHARLTON null, [place] - [facility] 3 11:30:50 Hyponatremia 90044346 Active 2022 ZANA CHARLTON null, [place] - [facility] 3 11:31:05 Problem Notes None recorded. Medical Equipment None Reported. Allergies Allergen ID Allergen Name Allergen Category Reaction Reaction Severity Criticality Documentation Date Start Date Code Code System Note Provider Name and Address Organization Details Recorded Time 447071 Substance with sulfonami de structure and antibacte rial mechanism of action (substanc e) medicatio n hives Not available Not available 11/19/2022 08196 8003 SNOMED PANKAJ [place] - [facility] [...] Updated DateTime 3 165.1 cm 43.9 kg/m2 012716. 39 g 18 /min 100 % 100 % 76 /min 97.5 [degF] 157 mm[Hg] 85 mm[Hg] ZANA CHARLTON PA - [facility] 11:19:22 Social History Question Answer Notes LastModified by [employer] Details LastModified Time Tobacco Smoking Status Never Smoker ZANA CHARLTON [email or web address] [place] - [facility] 11/19/2022 11:18:12 Have You Recently Traveled Abroad? No [email or web address] Information not available 11/19/2022 Sex: Unknown Functional Status Question Answer Note LastModified by [employer] Details LastModified Time Do you use any illicit or recreational drugs? No [email or web address] Information not available 11/19/2022 Do you or have you ever used any other forms of tobacco or nicotine? No [email or web address] Information not available 11/19/2022 What is your level of alcohol consumption? None [email or web address] Information not available 11/19/2022 Mental Status None recorded. Family History Relationship Description Onset Age of this Age Resolved Age Notes LastModified by Organization Details LastModified Time Father No current problems or disability [email or web address] Not available 11/19 11:17:55 Mother No current problems or disability [email or web address] Not available 11/19 11:17:55 Medical History No medical history recorded. Past Encounters Encounter ID Performer Location Encounter Start Date Encounter Closed Date Diagnosis/Indication Diagnosis SNOMED-CT Code Diagnosis ICD10 Code Diagnosis Note [id number] [address] [address] [place] [address] 11/11/2017 12:27:03 11/11/2017 14:11:50 [id number] [address] [address] [address] [place] [address] 07/16/2019 09:34:06 07/16/2019 10:03:45 [id number] [address] [address] [address] 12/30/2019 18:13:51 12/30/2019 19:22:33 [id number] [facility] [address] [place] [address] 05/10/2022 10:31:31 05/10/2022 12:37:38 [id number] [address] [address] [address] [place] [address] 09/24/2019 18:43:51 09/24/2019 19:35:54 [id number] [address] [address] [place] [address] 10/02/2019 17:34:39 10/02/2019 17:59:04 [id number] [address] [address] [place] [address] 03/31/2021 12:12:43 03/31/2021 13:12:15 [id number] [address] [address] [address] [place] [address] 04/18/2021 16:40:29 04/18/2021 17:49:54 [id number] [address] [address] [address] [place] [address] 11/20/2019 12:14:41 11/20/2019 13:14:49 [id number] Ag Lara MD [address] [place] [address] 11/19/2022 11:04:24 11/19/2022 12:41:23 Pain in left foot 1968527774 45107 M79.672 Imaging did not indicate acute fracture [...] today and the radiology interpreta tion. Dizziness 992005450 R42 Vital stable. Suicidal thoughts 652909 6 R45.851 Patient has SI and HI [...] ID Guarantor Name 11/19/2022 1 [place]IC[place] B[place]: [employer] Raulito Zepeda [id number] Raulito Zepeda 12/30/2022 2 [place] [facility] Raulito Zepeda [id number] Raulito Zepeda 11/19/2022 [facility] (MEDICARE [facility] A) Raulito Zepeda [id number] Raulito Zepeda Notes Date Note Type [...] else. Ag Lara MD [address], [place], [address], [place] - [facility] 11/19/2022 13:08:30
--- NOTE | 2025-04-20 15:33 | MHC.SL.IMP ---
Date of Plan of Treatment: 04/19/25 Onset of Symptoms/Illness: 02/15/20 Date Treatment Started: 04/19/25 Admitting Diagnosis: Dysphagia Primary Speech & Language Diagnosis: R13.12 Oropharyngeal Phase Dysphagia Reason for Today's Visit: 82248 Modified Barium Swallow Study Pre-evaluation Dietary Consistencies: Soft and cut up finely Pre-evaluation Liquid Consistency: Thin Medical History: Modified Barium Swallow Study Fluoroscopic Evaluation of Swallowing Function CPT Code 47705 Evaluation Year: 2024 Reason for Study: Hx dysphagia Referring Physician: Robert Sumner MD Evaluating Clinician: Tana Coates MA, CCC-DIRECTOR OF REHABILITATION Study Number: 1 Patient Name: Raulito Zepeda Status: Outpatient, Ambulated w/ Walker Age: 54 Sex: Male Medical History Medical History Feeling suicidal Tinea cruris Leg swelling Atrial flutter Atrial fib/flutter, transient A-fib Arrhythmia Abnormal EKG Contusion of left ankle Annual physical exam Abdominal pain Back pain Positive colorectal cancer screening using Cologuard test Precordial chest pain Hospital discharge follow-up Chest pain Right ankle pain Musculoskeletal chest pain Left-sided chest pain Back pain Fall Dysphagia Acute kidney injury Gait instability Suicidal ideation COVID-19 Hypomagnesemia Diarrhea Abdominal pain Ankle pain, left Left ankle sprain Seizure disorder Hypertension Anxiety Hyponatremia Cerebellar ataxia Anemia Lactose intolerance Vertigo Asthma Mental disability Type 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 Proteinuria Hyperlipidemia LDL goal <100 Essential hypertension Surgical History Hx of surgical procedure (07/22/24) Hx of colonoscopy History of orchiectomy Current (pre-evaluation) Intake/Diet: Route: PO Diet Grade: ?Soft and cut into very small pieces? Liquid Consistencies: Thin Pre-Study Functional Oral Intake Scale (FOIS): 5- Total oral intake of multiple consistencies requiring special preparation Pain: None reported at time of study SUBJECTIVE: Patient is a 54 year old male referred for a modified barium swallow study by Dr. Sumner in Primary Care. Pertinent medical history includes type 2 diabetes mellitus, hypercholesterolemia, schizophrenia, vertigo, asthma, cerebellar ataxia, tardive dyskinesia attributed to psychiatric medications, and GERD controlled with omeprazole. He arrives for his appointment today accompanied by a staff member from his long term. Staff reports patient has trouble swallowing mainly liquids, with reported coughing episodes on a daily basis. Patient reports being on a pureed diet, while staff clarified that patient is on softer foods which are finely cut up. Patient recalls having had this study done ?a while ago? and ?failing.? He endorses chronic swallow difficulty, but did not further elaborate on his symptoms. Patient had MBSS in 2020 and 2023 at [facility] [place] and was recommended nectar thick liquids and speech therapy for the treatment of dysphagia. Staff reports patient did not like thicker liquids and continued on thin liquids. Oral Motor Exam Facial Symmetry: Symmetrical Mouth Occlusion: Normal Oral-Facial Teeth Characteristics: Partially Missing Oral-Facial Teeth Miscellaneous Observation: Very limited dentition on bottom jaw. No top dentition. Oral-Facial Lip Pucker Description: Normal Oral-Facial Smile (Lips) Description: Normal Oral-Facial Puff Cheeks Description: Normal Tongue Size: Normal Tongue Excursion Description: Normal Tongue Range of Movement Description: Normal Tongue Speed of Movement Description: Normal Tongue Strength of Movement (against opposing pressure): Normal Tongue Movement Characteristics: Tongue Movement Miscellaneous Observation: Per staff, patient will be getting dentures soon. Food and Liquid Trials: Oral Impairment: Lip Closure: Did not test Oral Impairment: Tongue Control During Bolus Hold: 3=Posterior escape of greater than half of bolus Oral Impairment: Bolus Preparation/Mastication: 2=Disorganized chewing/mashing with solid pieces of bolus Oral Impairment: Bolus Transport/Lingual Motion: 1= Delayed initiation of tongue motion Oral Impairment: Oral Residue: 2=Residue collection on oral structures Oral Impairment:Initiation of Pharyngeal Swallow: 3=Bolus head in pyriforms Pharyngeal Impairment: Soft Palate Elevation: 0=No bolus between soft palate (SP)/pharyngeal wall (PW) Pharyngeal Impairment: Laryngeal Elevation: 1=Partial thyroid cartilage/arytenoids to epiglottic petiole movement Pharyngeal Impairment: Anterior Hyoid Excursion: 1=Partial anterior movement Pharyngeal Impairment: Epiglottic Movement: 1=Partial inversion Pharyngeal Impairment: Laryngeal Vestibular Closure:: 1=Incomplete: narrow column air/contrast in laryngeal vestibule Pharyngeal Impairment: Pharyngeal Stripping Wave: 0=Present: complete Pharyngeal Impairment: Pharyngeal Contraction: Did not test Pharyngeal Impairment: Pharyngoesophageal Segment Openin=Partial distention/partial duration: partial obstruction of flow Pharyngeal Impairment: Tongue Base (TB) Retraction: 2=Narrow column of contrast/air between TB and posterior PW Pharyngeal Impairment: Pharyngeal Residue: 2=Collection of residue within or on pharyngeal structures Pharyngeal Impairment: Esophageal Clearance Upright Position: Did not test Impressions and Recommendations Clinical Observations: OBJECTIVE: Time-out: performed at 15:00 Evaluation Start: 14:30; Stop: 14:40 Patient Positioning: Standing Viewing Planes: LATERAL ONLY Contrast: MBSImP? Standardized Protocol using commercially prepared, standardized Barium viscosities, including: Varibar? THIN LIQUID (40% w/v, <15 cps) , Varibar? NECTAR (40% w/v, <150-450 cps) , Varibar? THIN HONEY (40% w/v, <800-1800 cps) , Varibar? PUDDING (40% w/v, <1124-0941 cps) , 1/2 Shortbread Cookie (1 x1 x.25 ) [facility] ID: [id number] [facility] Results: Lip closure for intraoral bolus containment could not be assessed due to logistical reasons not related to physiologic impairment. Tongue control during bolus hold allowed posterior escape of greater than half of the bolus. Bolus preparation and mastication demonstrated disorganized chewing/mashing with solid pieces of the bolus unchewed. Bolus transport/lingual motion demonstrated delayed initiation of tongue motion. Oral residue was a collection on oral structures. Initiation of the pharyngeal swallow occurred when the bolus head was in the pyriform sinuses. Soft palate elevation resulted in no bolus between the soft palate and the pharyngeal wall. Laryngeal elevation was decreased, with partial superior movement of the thyroid cartilage/partial approximation of the arytenoids to the epiglottic petiole. Anterior hyoid excursion demonstrated partial anterior movement. Epiglottic movement resulted in partial inversion. Laryngeal vestibular closure was incomplete, with a narrow column of air/contrast noted within the laryngeal vestibule at the height of the swallow. Pharyngeal stripping wave was present and complete. Pharyngeal contraction could not be determined due to logistical reasons not related to physiologic impairment. Pharyngoesophageal segment opening demonstrated partial distension/partial duration, with partial obstruction of bolus flow. Tongue base retraction allowed a narrow column of contrast or air between the retracted tongue base and the posterior pharyngeal wall. Pharyngeal residue was a collection of residue within or on pharyngeal structures. Esophageal clearance in the upright position could not be assessed due to logistical reasons not related to physiologic impairment. Oral Impairment Score: 11 (absence of score, component 1) Pharyngeal Impairment Score: 9 (absence of score, component 13) Esophageal Impairment Score: --- (absence of score, component 17) Laryngeal Penetration and Aspiration: Neither penetration nor aspiration was observed in today's study with Cookie, Pudding-thick. Both Penetration and Aspiration were observed in today's study. [place]-thick Contrast entered the airway, remained above the vocal folds, and was ejected from the airway. Thin Contrast entered the airway, passed below the vocal folds, and no effort was made to eject. ASSESSMENT: This exam was performed by the radiologist and the speech pathologist. Patient began the exam standing for lateral view, but reported pain in his knees and sat in a chair for the remainder of the study. Patient was able to feed himself and trialed the following consistencies: thin liquid (via individual cup sips) nectar thick liquid (via individual cup sips) honey thick liquid (via individual cup sips) puree (mixture applesauce with barium pudding) soft solid (mixture chicken salad with barium pudding) regular solid (Mirna Doone cookie coated with barium pudding) Note poor tongue control with premature posterior escape of a majority of the bolus. Mastication was slowed and disorganized, with solid pieces of bolus unchewed. Note improved oral management and adequate chewing on soft solid. Significantly delayed posterior lingual motion. Mild residue seen on the tongue, which cleared on secondary swallows. Pharyngeal swallow trigger was significantly delayed, initiated as the bolus head reached the pyriforms. No evidence of nasopharyngeal reflux. Partial laryngeal elevation with partial epiglottic inversion and incomplete laryngeal vestibular closure. No evidence of aspiration or penetration on trials of honey thick, puree, ground, and regular solids. There was trace penetration above the vocal folds when patient sipped a very small amount of thin liquid from the cup (approximately half-teaspoon), however, on larger bolus, there was silent aspiration during the swallow with no spontaneous coughing or throat clearing. Contrast entered the laryngeal vestibule and passed below the vocal folds. There was transient penetration above the vocal folds with nectar thick liquid, which cleared on a cued throat clear. There was question of aspiration after the swallow on spillage from the pyriforms with subsequent trials of this consistency. There was trace pooling in the valleculae and pyriforms on liquids and puree, which increased on trials of solids, but still considered to be minimal. Most residue cleared with secondary swallows. Partial distention through the pharyngoesophgeal segment opening. The following compensatory strategies have not been used until today's study, but when employed, improved swallowing function: Honey-thick Liquid eliminated Penetration, Aspiration Bolus Volume Change eliminated Aspiration Bolus Volume Change decreased Penetration Additional Swallow(s) per Bolus decreased Oral Residue, Pharyngeal Residue Throat Clear eliminated Penetration Liquid Intake Recommendation: Honey Thick Liquid Intake Strategies: Small Sips, No Straws, Double Swallow Dietary Recommendations: Grnd/Mech Altered (NDD2) Medication Administration: Crushed with Puree Please contact the pharmacy regarding appropriate crushable or liquid drug formulations that are available whenever modified delivery is recommended. Compensatory Strategies Recommended: Sitting Upright (90 deg), Double Swallow, No Straw, Small Bites and Sips, Rate of Ingestion Change, Avoid Specific Foods Supervision during eating and or drinking: Direct Supervision (1:1) Recommended Treatments: Pharyngeal Resistive Exer, Compens. Strategy Educat. Recommendation for Speech Therapy: Outpatient Speech Therapy Speech Therapy through [facility] Modified Barium Swallow Study - Outpatient Text Comment: Intake Recommendations: Route: PO Diet Grade: Mechanical Soft Liquid Consistencies: Honey Post-Study Functional Oral Intake Scale (FOIS): 5- Total oral intake of multiple consistencies requiring special preparation Patient presents with moderate oropharyngeal dysphagia, characterized by premature posterior spilling into the pharynx prior to initiation of a swallow, slowed and disorganized mastication pattern, delayed AP transport, significantly delayed swallow trigger, and compromised airway protection with partial epiglottic inversion and incomplete laryngeal vestibular closure. This exam revealed silent aspiration on thin liquid and penetration above the vocal folds intermittently with nectar thick liquid. Mild residue in the oral and pharyngeal cavities mostly cleared on secondary swallows. Recommend downgrade diet to GROUND/MECHANICALLY ALTERED (NDD2) solids and HONEY THICK liquids. The following aspiration precautions are recommended to promote swallow safety: -small individual sips of liquid by cup or teaspoon -due to delay in swallow trigger, recommend AVOID STRAWS -no consecutive sips or ?chugging? of liquids -small bites of food, one bite at a time -chew food well and clear oral cavity before taking more bites -dry swallow after each bite/sip -upright 90 degree position when eating and drinking -total supervision by long term staff or caregiver to ensure aspiration precautions -avoid tough and sticky foods -avoid mixed consistencies (i.e. cereal; soup with thin broth) -frequent oral care at least 4 times daily Patient is recommended speech therapy for dysphagia through [facility] or otherwise on outpatient basis to trial pharyngeal strengthening exercises and to provide support for patient and caregivers/staff at long term. Recommend education RE: compensatory strategies/safe eating behaviors, thickener, and national dysphagia diet level guidelines. Therapy Recommendations: Recommend speech therapy for the treatment of dysphagia 1x weekly x 12 weeks, with a repeat MBSS to follow 12-16 weeks post-treatment to monitor for any changes/improvement. The following compensatory strategies and/or therapeutic exercises will be part of the upcoming therapy/management plan: Honey-thick Liquid Bolus Volume Change Additional Swallow(s) per Bolus Throat Clear Chcf Goals: ? The patient will tolerate the least restrictive diet with a safe/efficient swallow to maintain adequate nutrition and hydration. ? The patient will demonstrate improved swallowing function via repeat clinical evaluation, videoendoscopy/videofluoroscopy and/or patient self-rating scores. ? The patient and/or family will participate in further education for swallowing goals. Short Term Goals: ? Diet - The patient will tolerate a mechanical soft diet with honey thick liquids without signs or symptoms of penetration/aspiration 100% of the time. - The patient will participate in therapeutic PO trials with the DIRECTOR OF REHABILITATION. ? Guidelines - The patient will comply with/recall the following guidelines/strategies 100% of the time with minimal cuing: Bolus Volume Change, Rate of Ingestion Change, Additional Swallow(s) per Bolus, Throat Clear, No Straws. ? Independent Home Exercise - The patient will perform 10 repetitions of the Effortful Swallow, Neena Maneuver, Ania Maneuver 2 times a day with 100% accuracy and minimal cuing as part of a home exercise program. ? Structured Therapy - The patient will demonstrate 100% accuracy and require minimal cuing in structured swallowing therapy with the DIRECTOR OF REHABILITATION using the following exercises/therapy approaches and therapy assisted devices: Effortful Swallow, Neena Maneuver, Ania Maneuver, . ? Education - The patient, caregiver will verbalize/demonstrate understanding of the results of this evaluation, the above recommendations, and the swallowing guidelines. Frequency/Duration: 1x weekly x 12 weeks Date Range for Service Requested: Timeline to reassess: 3 months Clinician - Supplemental, Miscellaneous Communication: It is important to note MBSS objective studies are snapshots in time and Patient function might vary with factors such as time of day or concomitant medical conditions. For this reason, the final treatment plan for this patient should rest with their medical care team. Additional recommendations should be considered with the totality of the Patient in mind. Thank for the opportunity to participate in the care of this patient. If you have any questions about the content of this report, please contact the [facility] at [facility]. Education: Education regarding findings from today's study and plans for therapy were provided to Patient only through Verbal Instruction, Written Instruction. Understanding was expressed by the Patient only. Nurse'S Aides Teacher Clinician/Clinical Fellow: No Supervisory Statement: N/A Speech Language Pathologist: Tana Coates M.A., CCC-DIRECTOR OF REHABILITATION
== END 2025-04-19 14:01 | disposition home or self-care (01) ==
LOC: HO.XRAY 14:00
PROVIDERS: Visit Provider Internal Medicine
DX: R13.10 Dysphagia, unspecified (principal)
CPT/HCPCS: 74230; 92611

== ENCOUNTER → 2025-04-19 14:00 | Outpatient (BNV) | payer MEDICARE, MEDICAID, SELFPAY | PROVIDERS: Visit Provider Radiology Diagnostic Radiology | DX: R13.10 Dysphagia, unspecified (principal) | CPT/HCPCS: 74230 ==

== ENCOUNTER 2025-04-27 11:15 | Outpatient (AMB) | payer MEDICARE, MEDICAID, SELFPAY ==
--- NOTE | 2025-04-27 11:24 | A.OFFPC_ITS ---
Vital Signs 04/27/25 11:26 Height 5 ft 5 in Weight 223 lb 8.78 oz BMI 37.2 BP 132/76 Blood Pressure Location Lt brachial Position Sitting Pulse 79 Pulse Source Pulse Oximeter Temp Source Temporal Artery Scan Pulse Oximetry (%) 97 Oxygen Delivery Method Room Air Intake Visit Reasons: [facility] 04/21 chest pain Intake Note: Patient is here to follow-up after a visit the emergency department at [facility] on 04/21/25 Filing Clerk Required: No Manager Heavy Duty: Present Accompanied by: staff Allergies Sulfa (Sulfonamide Antibiotics) Allergy (Severe, Verified 04/27/25 11:37) CHAVEZ ALICIA REACTION trimethoprim Allergy (Mild, Verified 04/27/25 11:37) UNKNOWN lactose Adverse Reaction (Mild, Verified 04/27/25 11:37) STOMACH UPSET Medication List - Last Reconciled 04/27/25 by Tayler Holt PA-C acetaminophen 650 mg (2 x 325 mg) PO Q4H PRN 90 days albuterol sulfate 90 mcg/actuation 2 puffs inhalation Q6H PRN [[id number] As directed] atorvastatin 10 mg PO BEDTIME [Bilateral custom AFO As directed] bismuth subsalicylate (Pepto-Bismol) 524 mg (30 mL) PO QID PRN 7 days blood sugar diagnostic ([employer] No Coding strips) As directed 2 times per day blood-glucose meter (ViRTUAL INTERACTiVEuch Ultra2 Meter) test once daily blood-glucose meter ([employer] Autocode Blood Glucose Monitoring System) As directed cholecalciferol (vitamin D3) 25 mcg PO DAILY clonidine HCl 0.1 mg PO BEDTIME alvarez.stocking,knee,reg,xlrg As directed 15-20 mm HG cyanocobalamin (vitamin B-12) 1,000 mcg PO BEDTIME dextromethorphan polistirex ER (Delsym 12 hour) 10 mL PO Q12H PRN [DIABETIC SHOES/INSERTS As directed] divalproex ER 1,000 mg PO BID empagliflozin (Jardiance) 25 mg PO DAILY esomeprazole magnesium (Nexium) 40 mg PO BEDTIME ferrous sulfate 325 mg PO BID fluoride (sodium) 1.1% (PreviDent 5000 Booster Plus) 1 appl dental BID fluticasone furoate-vilanterol 200-25 mcg/dose (Breo Ellipta) 1 inh inhalation DAILY fluticasone propionate 50 mcg/actuation (Flonase Allergy Relief) 1 spray intranasal BID gabapentin 300 mg PO BID [Heat Moldable shoe inserts As directed] hydralazine 50 mg PO TID hydroxyzine pamoate 50 mg PO DAILY PRN lactase (Lactaid) 3,000 units PO TIDWM PRN lancets ([employer] UltraSoft 2 Lancet) test once daily lancets (qunbigCitrus Lancets) As directed check BS twice a day lancing device ([employer] Lancing Device) As directed lisinopril 5 mg PO DAILY loperamide 2 mg PO Q6H PRN methylcellulose (laxative) (Citrucel) 1,000 mg (2 x 500 mg) PO DAILY 30 days myfyhnrx-bwgoqmqjjIz-tsfdcvwyK 3.5-400-5,000 zz-ntwr-tsrl (Triple Antibiotic) 1 appl topical BID nystatin 1 appl topical TID PRN ondansetron 4 mg PO Q6H PRN propranolol 20 mg PO TID@0800,1600,2000 90 days risperidone 3 mg PO BID sennosides (senna) 17.2 mg PO DAILY PRN starch (thickening) ([employer] Thick-It oral powder) Add thick it powder to food and beverage using enclosed measuring spoon TID 30 days torsemide 20 mg PO DAILY valacyclovir 1,000 mg PO TID Tobacco use date assessed: 04/27/25 Dental Screening Dental Screen Date: 11/12/24 HPI [facility] 04/21 chest pain HPI Details 54-year-old male with past medical histo ry of mental behavioral problem, cerebellar ataxia, diabetes mellitus, hypercholesterolemia, hypertension, asthma and atrial flutter last seen 03/2025 coming in for hospital discharge follow up.? In review of the notes, patient was seen in [facility] 04/21/2025 for chest pain no loss of consciousness workup was negative advised to follow up with PCP. Presenting with loss of consciousness and suicidal ideation. The patient experienced a loss of consciousness at work, remaining unresponsive for about four minutes, with no recollection of the event. No preceding symptoms such as dizziness or chest pain were reported, and emergency services transported him to the hospital where tests were negative. Suicidal ideation has persisted for over a month, accompanied by daily auditory hallucinations instructing self-harm. The patient has been consulting with a psychiatrist but feels unsupported in managing these symptoms. [facility] Medical History (Updated 04/27/25 @ 11:50 by Tayler Holt PA-C) Feeling suicidal Tinea cruris Leg swelling Atrial flutter Atrial fib/flutter, transient A-fib Arrhythmia Abnormal EKG Contusion of left ankle Annual physical exam Abdominal pain Back pain Positive colorectal cancer screening using Cologuard test Precordial chest pain Hospital discharge follow-up Chest pain Right ankle pain Musculoskeletal chest pain Left-sided chest pain Back pain Fall Dysphagia Acute kidney injury Gait instability Suicidal ideation COVID-19 Hypomagnesemia Diarrhea Abdominal pain Ankle pain, left Left ankle sprain Seizure disorder Hypertension Anxiety Hyponatremia Cerebellar ataxia Anemia Lactose intolerance Vertigo Asthma Mental disability Type 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 Proteinuria Hyperlipidemia LDL goal <100 Essential hypertension Surgical History Hx of surgical procedure (07/22/24) Hx of colonoscopy History of orchiectomy Family History Father Myocardial infarction CVD (cardiovascular disease) Diabetes mellitus Mother Diabetes mellitus HTN (hypertension) Brother In good health Sister In good health Social History Household Members: Other Household Members Other:: from intermediate Housing: House Housing Other:: intermediate [facility] [address] [phone] Do you presently have visiting nurse or other home services: Yes 75 years or older and lives alone: No Unable to assess alcohol history related to: Unknown Alcohol intake: former 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 Patient Tobacco Use Status: Never used Tobacco Tobacco use type: Cigarette e-Cigarette/Vaping Use: Never Used Second Hand Smoke Exposure: No Advance Directives Date on File: 03/07/21 service: No Current occupational status: disabled Cognitive needs: Yes (walker) Hearing needs: No Vision needs: Yes (glasses) Questionnaire Thrive Questionnaire Date Thrive assessed: 04/01/25 I am a: Parent/Caregiver What is your living situation today?: I choose not to answer this question Within the past 12 months, did the food you bought not last and you didn't have the money to get more?: I choose not to answer this question Within the past 12 months, did you worry whether your food would run out before you got money to buy more?: I choose not to answer this question Do you have trouble paying for medicines?: No Do you have trouble getting transportation to medical appointments?: No Do you have trouble paying your heating and electricity bill?: No Do you have trouble taking care of your child, family member or friend?: No Do you have trouble with day-to-day activities such as bathing, preparing meals, shopping, managing finances, etc.?: No Are you currently unemployed and looking for a job?: I choose not to answer this question Are you interested in more education?: No Please select the resources that you would like help with: None Currently or been in a relationship where the following occur: I choose not to answer THRIVE Score: 0 CHANI-7 AMB Questionnaire CHANI-7 Date CHANI - 7 assessed: 11/12/24 Source: Developed by Drs. Wellington López, Monica Jackson, Ray Nguyen and colleagues, with an educational perez from [employer]. Review of Systems Const Denies body aches, Denies chills, Denies fever(s), Denies headache(s) and Denies poor appetite Eyes Reports no additional complaints ENT Denies dysphagia, Denies dizziness, Denies headache(s) and Denies odynophagia Card Denies chest pain, Denies syncope, Denies edema, Denies irregular heart rhythm, Denies lightheadedness and Denies dyspnea Resp Denies cough and Denies dyspnea GI Denies abdominal pain, Denies constipation, Denies dysphagia, Denies diarrhea, Denies nausea, Denies odynophagia and Denies vomiting Reports no additional complaints Musc Reports no additional complaints and Denies abnormal gait Skin/Breast Reports system reviewed and no additional complaints, except as documented Neuro Denies abnormal gait, Denies dizziness, Denies syncope and Denies headache(s) Psych Reports no additional complaints Physical exam (Primary Care) Vital Signs: Last Vital Signs Pulse 79 04/27/25 11:26 BP 132/76 04/27/25 11:26 Pulse Ox 97 04/27/25 11:26 Oxygen Delivery Method Room Air 04/27/25 11:26 BMI result Body Mass Index 37.2 Tobacco/Smoking Status: Tobacco use Status Tobacco use date assessed 04/27/25 04/27/25 11:33 Patient Tobacco Use Status Never used Tobacco 04/27/25 11:33 Tobacco use type Cigarette 04/27/25 11:33 e-Cigarette/Vaping Use Never Used 04/27/25 11:33 Thrive Assessment: Date of Thrive Assessment Date Thrive assessed 04/01/25 04/27/25 11:33 Currently or been in a relationship where the following occur: I choose not to answer Const General: cooperative, healthy appearing, comfortable and no acute distress Orientation/consciousness: patient oriented x3 HENMT Head: Yes normocephalic Ears: hearing grossly normal bilaterally General nose exam: Normal external nose present Eyes General: appearance normal, both eyes and all related structures Conjunctivae: conjunctivae normal Neck Neck: Yes full ROM and Yes no lymphadenopathy Resp Effort & Inspection: normal respiratory effort Auscultation: clear to auscultation bilaterally, no crackles, no rales, no rhonchi and no wheezes Cardio Rate: regular rate Rhythm: regular rhythm Skin General skin exam: no rashes or lesions noted Neuro General: patient oriented x3 Gait exam (Neuro): Normal gait present Extrem General: Yes normal to inspection, Yes full ROM and No edema Psych Affect: normal affect Attitude: cooperative Insight: Good insight present (Psych) Judgement: Good judgement present (Psych) Coding Level of Care Code Est Pt Level 3 (27745) Diagnoses Essential hypertension I10 Schizophrenia F20.9 Feeling suicidal R45.851 Loss of consciousness R40.20 Assessment & Plan Assessment & Plan (1) Essential hypertension: Code(s): I10 - Essential (primary) hypertension Category: Medical Plan: Continue on current blood pressure medication. Avoid salt intake and encourage healthy diet and regular exercise. (2) Schizophrenia: Comment: Dr. Martínez psychiatrist Code(s): F20.9 - Schizophrenia, unspecified Category: Medical Plan: Continue to follow with psychiatrist according to intermediate staff he recently had an appointment with medication adjustments. (3) Feeling suicidal: Code(s): R45.851 - Suicidal ideations Category: Medical Plan: I discussed with the patient today that we take reports of SI and HI very seriously and patient understands this. He wants to be admitted to the [place] psych unit I did discuss with them that I do not have control over who was admitted. Also discussed there is a possibility that if he does go to the ER for evaluation and may not resulted in admission. I discussed with the patient and his intermediate staff that if he is truly having thoughts of self-harm he should be evaluated in the ER and contact his psychiatrist. They both understand and agree to go to the ER as needed. (4) Loss of consciousness: Code(s): R40.20 - Unspecified coma Category: Medical Plan: Patient had brief episode of loss of consciousness without precursor and no inciting events. He has not had any episodes since and has no history of epi sodes prior. I placed a referral to Neurology today for further evaluation. I reviewed red flag symptoms and when to present for re-evaluation Plan A neurology referral has been made to explore the etiology of the patient's loss of consciousness, as previous tests were inconclusive. The patient should remain vigilant for any symptoms such as dizziness or chest pain and report them promptly for further assessment. Due to the presence of suicidal ideation and auditory hallucinations, an emergency department evaluation is advised if the patient feels at risk of self-harm. Continued psychiatric care and the application of de-escalation strategies are recommended to manage the patient's mental health concerns. This note was constructed using voice recognition software. While every effort has been made to ensure accuracy and manager statistical, still areas may have been included sometimes these areas may affect the content or meeting of the given symptoms. Total time spent caring for the patient today was minutes. This includes time spent before the visit reviewing the chart, time spent during the visit, and time spent after the visit and documentation. Patient was informed and verbally consented to the use of an ambient scribe for clinic note documentation during this visit.
[2025-04-27 11:26] VITALS: BP 132/76; PULSE 79; O2SAT 97; BMI 37.2
--- OUTSIDE RECORDS SUMMARY | 2025-04-27 13:06 | XMS_ITS | Data Portability ---
Author Organization [facility] Address [address] [place] [id number] Assessment No assessment recorded. Plan of Treatment Reminders Order Date Submit Date Provider Last Modified By Organization Details Last Modified Time Details Appointments None recorde d. Lab glucose , fingers tick, blood 023 11/19/19 [email or web address] _[facility], [address] [place] [address], [id number], 11:50:35 Referral None recorde d. Procedures None recorde d. Surgeries None recorde d. Imaging XR, foot, 3 or more view 023 11/19/19 [facility], [address] [place], [address], 3 12:55:32 Medication Orders None recorde d. Patient TargetsNo targets recorded. Patient InstructionsNo instructions recorded. Reason for Referral None Reported. Results Created Date Observation Date Name Description Value Unit Range Abnormal Flag Note LastModifiedBy Organization Detail LastModifiedTime 11/19/1911/19/2022 gluco se, finge rstic k, blood blood sugar - non fasting mg/dL 80-140 = normal Not Available [address], [address], 11/19/2022 11:31:33 11/19/19 23 11/19/2022 gluco se, finge rstic k, blood blood sugar - fasting 193 mg/dL 80-125 = normal Not Available _[address], [place], [address], 11/19/2022 11:31:33 11/19/19 23 11/19/2022 XR, foot, 3 or more view No observ ation record ed. [email or web address] [facility] [address] [facility] [place], [address], 11/20/2022 08:27:39 Result Notes None recorded. Problems Name Problem SNOMED Code Status Onset Date Resolution Date Notes Provider Name and Address Organization Details Recorded Time Hypertensive disorder 86675928 Active 2022 ZANA CHARLTON null, [place] - [facility] 3 11:28:03 Asthma 238942432 Active 2022 ZANA CHARLTON null, PA - [facility] 3 11:28:13 Hyperlipidemia 93218448 Active 2022 ZANA CHARLTON null, PA - [facility] 3 11:29:19 Cobalamin deficiency 236262005 Active 2022 ZANA CHARLTON null, PA - [facility] 3 11:30:02 Diabetes mellitus 69381084 Active 2022 ZANA CHARLTON null, PA - [facility] 3 11:30:11 Gastroesophage al reflux disease 599735853 Active 2022 ZANA CHARLTON null, PA - [facility] 3 11:30:43 Anemia 423885829 Active 2022 ZANA CHARLTON null, PA - [facility] 3 11:30:50 Hyponatremia 73327568 Active 2022 ZANA CHARLTON null, PA - [facility] 3 11:31:05 Problem Notes None recorded. Medical Equipment None Reported. Allergies Allergen ID Allergen Name Allergen Category Reaction Reaction Severity Criticality Documentation Date Start Date Code Code System Note Provider Name and Address Organization Details Recorded Time 018900 Substance with sulfonami de structure and antibacte rial mechanism of action (substanc e) medicatio n hives Not available Not available 11/19/2022 20752 8003 SNOMED PANKAJ Med[place] - [facility] [...] Updated DateTime 3 165.1 cm 43.9 kg/m2 169449. 39 g 18 /min 100 % 100 % 76 /min 97.5 [degF] 157 mm[Hg] 85 mm[Hg] ZANA CHARLTON PA - [facility] 11:19:22 Social History Question Answer Notes LastModified by Netscape Details LastModified Time Tobacco Smoking Status Never Smoker ZANA CHARLTON [email or web address] PA - [facility] 11/19/2022 11:18:12 Have You Recently Traveled Abroad? No [email or web address] Information not available 11/19/2022 Sex: Unknown Functional Status Question Answer Note LastModified by Netscape Details LastModified Time Do you use any illicit or recreational drugs? No [email or web address] Information not available 11/19/2022 Do you or have you ever used any other forms of tobacco or nicotine? No [email or web address] Information not available 11/19/2022 What is your level of alcohol consumption? None Information not available 11/19/2022 Mental Status None recorded. Family History Relationship Description Onset Age of this Age Resolved Age Notes LastModified by Organization Details LastModified Time Father No current problems or disability [email or web address] Not available 11/19 11:17:55 Mother No current problems or disability [email or web address] Not available 11/19 11:17:55 Medical History No medical history recorded. Past Encounters Encounter ID Performer Location Encounter Start Date Encounter Closed Date Diagnosis/Indication Diagnosis SNOMED-CT Code Diagnosis ICD10 Code Diagnosis Note [id number] [address] [facility] [place] [address] 11/11/2017 12:27:03 11/11/2017 14:11:50 [id number] [address] [address] [address] [place] [address] 07/16/2019 09:34:06 07/16/2019 10:03:45 [id number] [address] [address] [address] 12/30/2019 18:13:51 12/30/2019 19:22:33 [id number] [address] [address] [place] [address] 05/10/2022 10:31:31 05/10/2022 12:37:38 [id number] [address] [address] [place] [address] 09/24/2019 18:43:51 09/24/2019 19:35:54 [id number] [address] [address] [place] [address] 10/02/2019 17:34:39 10/02/2019 17:59:04 [id number] [address] [address] [place] [address] 03/31/2021 12:12:43 03/31/2021 13:12:15 [id number] [address] [address] [place] [address] 04/18/2021 16:40:29 04/18/2021 17:49:54 [id number] [address] [address] [address] [place] [address] 11/20/2019 12:14:41 11/20/2019 13:14:49 [id number] Ag Lara MD [address] [address] [place] [address] 11/19/2022 11:04:24 11/19/2022 12:41:23 Pain in left foot 7913279711 24982 M79.672 Imaging did not indicate acute fracture [...] today and the radiology interpreta tion. Dizziness 509366425 R42 Vital stable. Suicidal thoughts [id number] 6 R45.851 Patient has SI and HI [...] ID Guarantor Name 11/19/2022 1 [place]IC[place] B[place]: [employer] Raulito Zepeda [id number] Raulito Zepeda 12/30/2022 2 [place] [facility] Raulito Zepeda [id number] Raulito Zepeda 11/19/2022 [facility] (MEDICARE [facility] A) Raulito Zepeda [id number] Raulito Zepeda Notes Date Note Type [...] else. Ag Lara MD [address], [place], [address], [place] - [facility] 11/19/2022 13:08:30
== END 2025-04-27 12:00 | disposition home or self-care (01) ==
LOC: HO.HMCH 11:16
PROVIDERS: PCP Internal Medicine
DX: I10 Essential (primary) hypertension (principal); F20.9 Schizophrenia, unspecified; R45.851 Suicidal ideations; R40.20 Unspecified coma

== ENCOUNTER → 2025-04-27 11:15 | Outpatient (BNVA) | payer MEDICARE, MEDICAID, SELFPAY | PROVIDERS: PCP Internal Medicine | DX: I10 Essential (primary) hypertension (principal); F20.9 Schizophrenia, unspecified; R45.851 Suicidal ideations; R55 Syncope and collapse | CPT/HCPCS: 99212 ==

== ENCOUNTER 2025-05-06 14:08 | Outpatient (AMB) | payer MEDICARE, MEDICAID, SELFPAY ==
[2025-05-06 14:13] VITALS: BP 126/72; PULSE 73; TEMP 36.5; O2SAT 99
--- NOTE | 2025-05-06 14:13 | MHC.OFFWIV ---
Intake Vital Signs 05/06/25 14:13 Height 5 ft 5 in BMI Reason not done Patient refused/unable BP 126/72 Blood Pressure Location Rt brachial Position Sitting Pulse 73 Pulse Source Pulse Oximeter Temp 97.7 F Temp Source Oral Pulse Oximetry (%) 99 Oxygen Delivery Method Room Air Intake Visit Reasons: EP dizzy/lighted, faint, suicidal? Intake Note: pt presents with right 3rd-4th toe pain and bruising, denies injury. Also c/o suicidal thoughts and he feels like punching himself. States he has a painful blister on his left buttock. Patient Tobacco Use Status: Never used Tobacco Allergies Sulfa (Sulfonamide Antibiotics) Allergy (Severe, Verified 05/06/25 14:20) CHAVEZ ALICIA REACTION trimethoprim Allergy (Mild, Verified 05/06/25 14:20) UNKNOWN lactose Adverse Reaction (Mild, Verified 05/06/25 14:20) STOMACH UPSET Do you need a note to return to daycare/school/sports/work: No HPI HPI Comments History of Present Illness Details This is a 54-year-old male presenting with his [place] [facility] staff for evaluation of right 4th toe pain that he has had for the past 3 weeks, a blister on his left buttock for an unknown chronicity and suicidality for the past 1 week. Patient denies any injury or trauma to his right foot or right toes but describes pain when he touches it. Patient has no difficulty ambulating although he utilizes a walker at baseline. Patient states that he had a blister on his left buttock which the nurse at his [place] [facility] put ointment and a bandage on. Patient denies an pain as a result of this lesion. Patient states that he feels like punching himself in the face and has felt this way all week. Patient states he has a therapist that he sees every Friday however she has been on vacation this week. Patient's staff states that he has been compliant with his medications daily. [facility] Medical History (Updated 05/06/25 @ 15:07 by Dacia Powell PA-C) Feeling suicidal Tinea cruris Leg swelling Atrial flutter Atrial fib/flutter, transient A-fib Arrhythmia Abnormal EKG Contusion of left ankle Annual physical exam Abdominal pain Back pain Positive colorectal cancer screening using Cologuard test Precordial chest pain Hospital discharge follow-up Chest pain Right ankle pain Musculoskeletal chest pain Left-sided chest pain Back pain Fall Dysphagia Acute kidney injury Gait instability Suicidal ideation COVID-19 Hypomagnesemia Diarrhea Abdominal pain Ankle pain, left Left ankle sprain Seizure disorder Hypertension Anxiety Hyponatremia Cerebellar ataxia Anemia Lactose intolerance Vertigo Asthma Mental disability Type 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 Proteinuria Hyperlipidemia LDL goal <100 Essential hypertension Surgical History Hx of surgical procedure (07/22/24) Hx of colonoscopy History of orchiectomy Family History Father Myocardial infarction CVD (cardiovascular disease) Diabetes mellitus Mother Diabetes mellitus HTN (hypertension) Brother In good health Sister In good health Social History Household Members: Other Household Members Other:: from [place] [facility] Housing: House Housing Other:: [place] [facility] [address] Esteban [phone] Do you presently have visiting nurse or other home services: Yes 75 years or older and lives alone: No Unable to assess alcohol history related to: Unknown Alcohol intake: former 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 Patient Tobacco Use Status: Never used Tobacco Tobacco use type: Cigarette e-Cigarette/Vaping Use: Never Used Second Hand Smoke Exposure: No Advance Directives Date on File: 03/07/21 service: No Current occupational status: disabled Cognitive needs: Yes (walker) Hearing needs: No Vision needs: Yes (glasses) Review of Systems Const Reports no additional complaints Eyes Reports no additional complaints ENT Reports no additional complaints Card Reports no additional complaints Resp Reports no additional complaints GI Reports no additional complaints Reports no additional complaints Musc Reports other (Right 4th toe pain x 3 weeks) Skin/Breast Details: Blister left buttock. Neuro Reports no additional complaints Psych Reports depression and Reports suicidal ideation (states he wants to punch himself in the face) Endo Reports no additional complaints Roman/Lymph Reports no additional complaints Aller/Immun Reports no additional complaints Physical Exam Vital Signs: Last Vital Signs Temp 97.7 F 05/06/25 14:13 Pulse 73 05/06/25 14:13 BP 126/72 05/06/25 14:13 Pulse Ox 99 05/06/25 14:13 Oxygen Delivery Method Room Air 05/06/25 14:13 Const General: cooperative, no acute distress, well developed, alert, awake and Physically active; No ill appearing Nutritional Appearance: obese Orientation/consciousness: oriented to person and oriented to place Limitations: ambulation with walker Skin Other: chronic appearing ecchymosis dorsal surface of the right 4th toe distal phalanx; no blistering, erythema, ecchymosis noted left buttock or perianal region Neuro General: oriented to person and oriented to place Extrem Other: there is mild pain to palpation of the proximal 4th phalanx of the right foot; ROM intact all digits of the right foot, no pain to palpation of the metatarsals of the right foot; patient ambulating well with walker and does not need additional assistance General: Yes capillary refill normal (digits of the right foot) Psych Appearance: disheveled Speech and movement: Normal speech and movement present Thought content: Suicidality present Assessment & Plan Assessment & Plan (1) Feeling suicidal: Comment: Discussed with patient and backpackers manager of the [place] [facility], Oswaldo, who is comfortable calling their on.call clinician or the local crisis team for intervention as needed. Oswaldo is comfortable having the patient return to the [place] [facility] and states he can ensure patient safety. Code(s): R45.851 - Suicidal ideations Plan: Patient will return back to his [place] [facility] and on-call clinician will be contacted by the group contract analyst. Patient is in agreement with this plan of care. Plan Given this patient's history, examination and chronicity of pain, no further imaging is warranted at this time. Patient Instructions: Tylenol 500 mg q.6 hours p.r.n. pain. Coding Level of Care Code Est Pt Level 4 (25749) Diagnoses Feeling suicidal R45.851 Time Spent (min) 35
--- OUTSIDE RECORDS SUMMARY | 2025-05-06 14:37 | XMS_ITS | Data Portability ---
Author Organization [facility] [address] Address [address] [place] [address] Assessment No assessment recorded. Plan of Treatment Reminders Order Date Submit Date Provider Last Modified By Organization Details Last Modified Time Details Appointments None recorde d. Lab glucose , fingers tick, blood 023 11/19/19 [email or web address] [facility], [address] [place] [address], [phone], 11:50:35 Referral None recorde d. Procedures None recorde d. Surgeries None recorde d. Imaging XR, foot, 3 or more view 023 11/19/19 NATALIE [facility], [address] [place] [address], [address], 3 12:55:32 Medication Orders None recorde d. Patient TargetsNo targets recorded. Patient InstructionsNo instructions recorded. Reason for Referral None Reported. Results Created Date Observation Date Name Description Value Unit Range Abnormal Flag Note LastModifiedBy Organization Detail LastModifiedTime 11/19/1911/19/2022 gluco se, finge rstic k, blood blood sugar - non fasting mg/dL 80-140 = normal Not Available [address], [address], 11/19/2022 11:31:33 11/19/19 23 11/19/2022 gluco se, finge rstic k, blood blood sugar - fasting 193 mg/dL 80-125 = normal Not Available [facility] [address] [facility], [place], [address], 11/19/2022 11:31:33 11/19/19 23 11/19/2022 XR, foot, 3 or more view No observ ation record ed. [email or web address] [facility] [address] [facility] [place], [address], 11/20/2022 08:27:39 Result Notes None recorded. Problems Name Problem SNOMED Code Status Onset Date Resolution Date Notes Provider Name and Address Organization Details Recorded Time Hypertensive disorder 13349329 Active 2022 ZANA CHARLTON null, PA - [facility] 3 11:28:03 Asthma 685038068 Active 2022 ZANA CHARLTON null, PA - [facility] 3 11:28:13 Hyperlipidemia 47122345 Active 2022 ZANA CHARLTON null, PA - [facility] 3 11:29:19 Cobalamin deficiency 211685149 Active 2022 ZANA CHARLTON null, PA - [facility] 3 11:30:02 Diabetes mellitus 07091238 Active 2022 ZANA CHARLTON null, PA - [facility] 3 11:30:11 Gastroesophage al reflux disease 189213178 Active 2022 ZANA CHARLTON null, PA - [facility] 3 11:30:43 Anemia 754990076 Active 2022 ZANA CHARLTON null, PA - [facility] 3 11:30:50 Hyponatremia 36666805 Active 2022 ZANA CHARLTON null, PA - [facility] 3 11:31:05 Problem Notes None recorded. Medical Equipment None Reported. Allergies Allergen ID Allergen Name Allergen Category Reaction Reaction Severity Criticality Documentation Date Start Date Code Code System Note Provider Name and Address Organization Details Recorded Time 001283 Substance with sulfonami de structure and antibacte rial mechanism of action (substanc e) medicatio n hives Not available Not available 11/19/2022 [id number] SNOMED PANKAJ Med[place] - [facility] [...] Updated DateTime 3 165.1 cm 43.9 kg/m2 484971. 39 g 18 /min 100 % 100 % 76 /min 97.5 [degF] 157 mm[Hg] 85 mm[Hg] ZANA CHARLTON PA - [facility] 11:19:22 Social History Question Answer Notes LastModified by Jiff Details LastModified Time Tobacco Smoking Status Never Smoker ZANA CHARLTON nayeli PA - [facility] 11/19/2022 11:18:12 Have You Recently Traveled Abroad? No [email or web address] Information not available 11/19/2022 Sex: Unknown Functional Status Question Answer Note LastModified by Jiff Details LastModified Time Do you use any illicit or recreational drugs? No [email or web address] Information not available 11/19/2022 Do you or have you ever used any other forms of tobacco or nicotine? No [email or web address] Information not available 11/19/2022 What is your level of alcohol consumption? None [email or web address] Information not available 11/19/2022 Mental Status None recorded. Family History Relationship Description Onset Age of this Age Resolved Age Notes LastModified by Organization Details LastModified Time Father No current problems or disability [email or web address] Not available 11/19 11:17:55 Mother No current problems or disability [email or web address] Not available 11/19 11:17:55 Medical History No medical history recorded. Past Encounters Encounter ID Performer Location Encounter Start Date Encounter Closed Date Diagnosis/Indication Diagnosis SNOMED-CT Code Diagnosis ICD10 Code Diagnosis Note [id number] [facility] [address] [place] [address] 11/11/2017 12:27:03 11/11/2017 14:11:50 [id number] [address] [address] [address] [place] [address] 07/16/2019 09:34:06 07/16/2019 10:03:45 [id number] [facility] [address] [address] 12/30/2019 18:13:51 12/30/2019 19:22:33 [id number] [address] [address] [place] [address] 05/10/2022 10:31:31 05/10/2022 12:37:38 [id number] [address] [address] [address] [place] [address] 09/24/2019 18:43:51 09/24/2019 19:35:54 [id number] [address] [address] [place] [address] 10/02/2019 17:34:39 10/02/2019 17:59:04 [id number] [address] [address] [address] [place] [address] 03/31/2021 12:12:43 03/31/2021 13:12:15 [id number] [address] [address] [place] [address] 04/18/2021 16:40:29 04/18/2021 17:49:54 [id number] [address] [address] [address] [place] [address] 11/20/2019 12:14:41 11/20/2019 13:14:49 [id number] Ag Lara MD [address] [address] [place] [address] 11/19/2022 11:04:24 11/19/2022 12:41:23 Pain in left foot [id number] 24968 M79.672 Imaging did not indicate acute fracture [...] today and the radiology interpreta tion. Dizziness 363315065 R42 Vital stable. Suicidal thoughts 571868 6 R45.851 Patient has SI and HI [...] Guarantor Name 11/19/2022 1 [place] [employer] Raulito Zepeda [id number] Raulito Zepeda 12/30/2022 2 [place] [facility] Raulito Zepeda [id number] Raulito Zepeda 11/19/2022 [facility] (MEDICARE [facility] A) Raulito Zepeda [id number] Raulito Zepeda Notes Date Note Type [...] intent to kill himself or someone else. Shevaughn Kealy, MD [address], [place], [address], PA - [facility] 11/19/2022 13:08:30
== END 2025-05-06 15:07 | disposition home or self-care (01) ==
PROVIDERS: PCP Internal Medicine; Visit Provider Physician Assistant
DX: R45.851 Suicidal ideations (principal)

== ENCOUNTER → 2025-05-06 14:08 | Outpatient (BNVA) | payer MEDICARE, MEDICAID, SELFPAY | PROVIDERS: PCP Internal Medicine | DX: R45.851 Suicidal ideations (principal) | CPT/HCPCS: 99212 ==

== ENCOUNTER 2025-06-06 11:18 | Outpatient (AMB) | payer MEDICARE, MEDICAID, SELFPAY ==
[2025-06-06 12:15] VITALS: BP 126/68; PULSE 88; TEMP 36.8; O2SAT 99; BMI 38.0
--- NOTE | 2025-06-06 12:15 | MHC.OFFWIV ---
Intake Vital Signs 06/06/25 12:15 Height 5 ft 5 in Weight 228 lb 8 oz BMI 38.0 BP 126/68 Blood Pressure Location Rt brachial Position Sitting Pulse 88 Pulse Source Pulse Oximeter Temp 98.3 F Temp Source Oral Pulse Oximetry (%) 99 Oxygen Delivery Method Room Air Intake Visit Reasons: EP-cold symptoms Patient Tobacco Use Status: Never used Tobacco Supervisor Of Operations Required: No Allergies Sulfa (Sulfonamide Antibiotics) Allergy (Severe, Verified 06/06/25 12:22) CHAVEZ ALICIA REACTION trimethoprim Allergy (Mild, Verified 06/06/25 12:22) UNKNOWN lactose Adverse Reaction (Mild, Verified 06/06/25 12:22) STOMACH UPSET Do you need a note to return to daycare/school/sports/work: Yes HPI HPI Comments History of Present Illness Details History - The patient is a 54-year-old male 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 - The cough began two days ago and is associated with shortness of breath. - The patient has a history of asthma and uses his daily inhaler but has not used his albuterol inhaler when short of breath. - There is no history of fever, ear pain, or sinus pain. - The patient does not smoke or vape. - Covid test at home was negative. - The patient has hypertension, which is generally well-controlled, though there has been recent weight gain. Physical Exam General: Cooperative, healthy appearing, comfortable and no acute distress Orientation/consciousness: Patient oriented x3 Limitations: uses walker, ID Head: Normal to inspection Ears: Hearing grossly normal bilaterally, external ears normal, congestion present, and TM's normal bilaterally Nose: Normal external nose present, Normal nares present and No nasal discharge present Face and sinus: Normal facial exam and Sinuses nontender Mouth: Normal oral and palatal mucosa present and moist mucous membranes Throat: Yes tonsils normal, Yes uvula midline. Posterior oropharynx erythema, no exudates Eyes: Appearance normal, both eyes and all related structures Neck: Normal visual inspection, full ROM Respiratory: Clear to auscultation bilaterally. Normal respiratory effort, able to speak in complete sentences, Actively coughing, no respiratory distress, not tachypneic, no tripod positioning and no use of accessory muscles Cardiovascular: Regular rate and rhythm. Normal S1 and S2 Skin: No rashes or lesions noted Neuro: Patient oriented x3 Extremities: Normal to inspection and Yes no clubbing, cyanosis or edema PFSH Medical History (Updated 06/06/25 @ 13:08 by Shelby Madrigal PA-C) Feeling suicidal Tinea cruris Leg swelling Atrial flutter Atrial fib/flutter, transient A-fib Arrhythmia Abnormal EKG Contusion of left ankle Annual physical exam Abdominal pain Back pain Positive colorectal cancer screening using Cologuard test Precordial chest pain Hospital discharge follow-up Chest pain Right ankle pain Musculoskeletal chest pain Left-sided chest pain Back pain Fall Dysphagia Acute kidney injury Gait instability Suicidal ideation COVID-19 Hypomagnesemia Diarrhea Abdominal pain Ankle pain, left Left ankle sprain Seizure disorder Hypertension Anxiety Hyponatremia Cerebellar ataxia Anemia Lactose intolerance Vertigo Asthma Mental disability Type 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 Proteinuria Hyperlipidemia LDL goal <100 Essential hypertension Surgical History Hx of surgical procedure (07/22/24) Hx of colonoscopy History of orchiectomy Family History Father Myocardial infarction CVD (cardiovascular disease) Diabetes mellitus Mother Diabetes mellitus HTN (hypertension) Brother In good health Sister In good health Social History Household Members: Other Household Members Other:: from half-way Housing: House Housing Other:: half-way [facility] [address] Esteban [phone] Do you presently have visiting nurse or other home services: Yes 75 years or older and lives alone: No Unable to assess alcohol history related to: Unknown Alcohol intake: former 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 Patient Tobacco Use Status: Never used Tobacco Tobacco use type: Cigarette e-Cigarette/Vaping Use: Never Used Second Hand Smoke Exposure: No Advance Directives Date on File: 03/07/21 service: No Current occupational status: disabled Cognitive needs: Yes (walker) Hearing needs: No Vision needs: Yes (glasses) Review of Systems Const All systems reviewed & are unremarkable except as noted in HPI and below Physical Exam Vital Signs: Last Vital Signs Temp 98.3 F 06/06/25 12:15 Pulse 88 06/06/25 12:15 BP 126/68 06/06/25 12:15 Pulse Ox 99 06/06/25 12:15 Oxygen Delivery Method Room Air 06/06/25 12:15 BMI result Body Mass Index 38.0 Assessment & Plan Assessment & Plan (1) URI, acute: Code(s): J06.9 - Acute upper respiratory infection, unspecified Plan: Plan - VSS, pt well appearing and PE unremarkable. - Prescribed fexofenadine-pseudoephedrine to manage congestion and facilitate expectoration. - Advise use of Delsym at night to suppress cough and improve sleep quality. - Encourage the patient to use the emergency inhaler for asthma symptoms and to inform caregivers if assistance is needed. - Recommend monitoring for potential pneumonia development due to retained secretions. - Declined viral testing - Wrote work note for the week so he can rest. - Filled out half-way paperwork. Patient was informed and verbally consented to the use of an ambient scribe for clinic note documentation during this visit Medications: New fexofenadine-pseudoephedrine 180-240 mg ER 1 tab PO QAM 10 tabs 0RF congestion 10 days Coding Level of Care Code Est Pt Level 3 (04362) Diagnoses URI, acute J06.9
--- OUTSIDE RECORDS SUMMARY | 2025-06-06 12:35 | XMS_ITS | Clinical Summary ---
Author Organization [address] [facility] Address [address] [place] [address] Phone Care Team Providers Care Rn Transplant Name Role Phone Robert Sumner MD Primary Care Provider [phone] Allergies Active Allergy Reactions Criticality Noted Date Comments Sulfa (Sulfonamide Antibiotics) 12/11 Social History Tobacco Use Types Packs/Day Years [...] Upcoming Encounters Date Type Department Care Team ([facility] Contact Info) Description 06/14/2025 10:30 AM EDT Office Visit Orthopedic Surgery [place] [id number] [address] Jsoe Bonds DPM [address] [address] Health Maintenance Due Date Last Done Comments [...] 2) 2021 Cholesterol Screening (Lipid Panel) 10/12/2022 HIV Screening 10/12/2022 Hepatitis C Screening 10/12/2022 Medicare Annual Wellness Visit 10/12/2022 Social Influencers of Health Screening 10/12/2022 COVID-19 Vaccine ( season) 2024 10/30/2021, 01/15/2021, 12/25/2020 Colorectal Cancer Screening: FIT-DNA (Cologuard) 10/02/2024 10/02/2021 Depression Screening 11/10/2024 Diabetes: Annual Urine Albumin-Creatinine Ratio (uACR) 12/29/2024 Diabetes: Blood Sugar Control Test (HGBA1C) 12/29/2024 Hypertension/CHF/CAD Annual BMP Blood Test 12/29/2024 Influenza Vaccine (#1) 2025 5, 08/25/2023, 08/31/2021, Additional history exists HIB Vaccines Aged [...] Documents on File Type Date Recorded Patient General Cleaner Expl anation Health Care Decision (hx) 12/11/2020 AD VELASQUEZ DIRECTIVE Health Care Decision (hx) 12/11/2020 AD VELASQUEZ DIRECTIVE Health Care Decision (hx) 12/11/2020 AD VELASQUEZ DIRECTIVE Health Care Decision (hx) 12/11/2020 AD VELASQUEZ DIRECTIVE Care Teams Rn Transplant Relationship Specialty Start Date End Date Robert Sumner MD [address] [place] [address] [address] [facility] [place] [address] PCP - General Internal Medicine 09/24/24
--- OUTSIDE RECORDS SUMMARY | 2025-06-06 12:35 | XMS_ITS | Clinical Summary ---
Author Organization [facility] Address [address] [place] [address] Phone Care Team Providers Care Certified Tower Climber Name Role Phone Robert Sumner MD Primary Care Provider [phone] Allergies Active Allergy Reactions Criticality Noted Date [...] Encounters Date Type Department Care Team Description 06/05/2025 Orders Only [facility] [address] [address] Chana Schrader ARNP Chronic kidney disease, stage 2 (mild); Hyponatremia; Hypertension from Last 3 Months Family [...] Visit [facility] [address] [phone] Frantz Luis MD [address] [phone] Health Maintenance Due Date Last Done Comments [...] Visual Foot Exam 10/23/2023 Influenza Vaccine (#1) 2025 Insurance Medicare [place] Care Teams Certified Tower Climber Relationship Specialty Start Date End Date Robert Sumner MD [address] [place] PCP - General 11/20/20
--- OUTSIDE RECORDS SUMMARY | 2025-06-06 12:35 | XMS_ITS | Data Portability ---
Author Organization [facility] [address] Address [address] [place] [address] Assessment No assessment recorded. Plan of Treatment Reminders Order Date Submit Date Provider Last Modified By Organization Details Last Modified Time Details Appointments None recorde d. Lab glucose , fingers tick, blood 023 11/19/19 [email or web address] [facility], [address] [place] [address], [id number], 11:50:35 Referral None recorde d. Procedures None recorde d. Surgeries None recorde d. Imaging XR, foot, 3 or more view 023 11/19/19 NATALIE [facility], [address] [place] [address], [address], 3 12:55:32 Medication Orders None recorde d. Patient TargetsNo targets recorded. Patient InstructionsNo instructions recorded. Reason for Referral None Reported. Results Created Date Observation Date Name Description Value Unit Range Abnormal Flag Note LastModifiedBy Organization Detail LastModifiedTime 11/19/1911/19/2022 gluco se, finge rstic k, blood blood sugar - non fasting mg/dL 80-140 = normal Not Available [address], [address], 11/19/2022 11:31:33 11/19/19 23 11/19/2022 gluco se, finge rstic k, blood blood sugar - fasting 193 mg/dL 80-125 = normal Not Available [facility] [address] [facility], [place], [address], 11/19/2022 11:31:33 11/19/19 23 11/19/2022 XR, foot, 3 or more view No observ ation record ed. [email or web address] [facility] [address] [facility] [place], [address], 11/20/2022 08:27:39 Result Notes None recorded. Problems Name Problem SNOMED Code Status Onset Date Resolution Date Notes Provider Name and Address Organization Details Recorded Time Hypertensive disorder 10131814 Active 2022 ZANA CHARLTON null, PA - [facility] 3 11:28:03 Asthma 243304676 Active 2022 ZANA CHARLTON null, PA - [facility] 3 11:28:13 Hyperlipidemia 05326954 Active 2022 ZANA CHARLTON null, PA - [facility] 3 11:29:19 Cobalamin deficiency 096860575 Active 2022 ZANA CHARLTON null, PA - [facility] 3 11:30:02 Diabetes mellitus 34539664 Active 2022 ZANA CHARLTON null, PA - [facility] 3 11:30:11 Gastroesophage al reflux disease 412626812 Active 2022 ZANA CHARLTON null, PA - [facility] 3 11:30:43 Anemia 392839786 Active 2022 ZANA CHARLTON null, PA - [facility] 3 11:30:50 Hyponatremia 27989472 Active 2022 ZANA CHARLTON null, PA - [facility] 3 11:31:05 Problem Notes None recorded. Medical Equipment None Reported. Allergies Allergen ID Allergen Name Allergen Category Reaction Reaction Severity Criticality Documentation Date Start Date Code Code System Note Provider Name and Address Organization Details Recorded Time 552221 Substance with sulfonami de structure and antibacte rial mechanism of action (substanc e) medicatio n hives Not available Not available 11/19/2022 64114 8003 SNOMED PANKAJ Medina - [facility] [...] Pulse oximetry Heart rate Body temperature Systolic And Diastolic Provider Name and Address Organization Details Last Updated DateTime 3 165.1 cm 43.9 kg/m2 518859. 39 g 10 18 /min 100 % 100 % 76 /min 97.5 [degF] 157/85 mm[Hg] ZANA CHARLTON PA - [facility] 3 11:19:22 Social History Question Answer Notes LastModified by [employer] Details LastModified Time Tobacco Smoking Status Never Smoker ZANA ZOLTAN tyler PA - [facility] 11/19/2022 11:18:12 Have You Recently Traveled Abroad? No [email or web address] Information not available 11/19/2022 Sex: Unknown Functional Status Question Answer Note LastModified by [employer] Details LastModified Time Do you use any illicit or recreational drugs? No [email or web address] Information not available 11/19/2022 Do you or have you ever used any other forms of tobacco or nicotine? No [email or web address] Information not available 11/19/2022 What is your level of alcohol consumption? None [email or web address] Information not available 11/19/2022 Mental Status None recorded. Family History Relationship Description Onset Age of this Age Resolved Age Notes LastModified by Organization Details LastModified Time Father No current problems or disability Not available 11/19 11:17:55 Mother No current problems or disability [email or web address] Not available 11/19 11:17:55 Medical History No medical history recorded. Past Encounters Encounter ID Performer Location Encounter Start Date Encounter Closed Date Diagnosis/Indication Diagnosis SNOMED-CT Code Diagnosis ICD10 Code Diagnosis Note [id number] [address] [facility] [place] [address] 11/11/2017 12:27:03 11/11/2017 14:11:50 [id number] [address] [facility] [place] [address] 07/16/2019 09:34:06 07/16/2019 10:03:45 [id number] [address] [place] [address] 12/30/2019 18:13:51 12/30/2019 19:22:33 [id number] [address] [place] [address] 05/10/2022 10:31:31 05/10/2022 12:37:38 [id number] [address] [place] [address] 09/24/2019 18:43:51 09/24/2019 19:35:54 [id number] [address] [place] [address] 10/02/2019 17:34:39 10/02/2019 17:59:04 [id number] [address] [place] [address] 03/31/2021 12:12:43 03/31/2021 13:12:15 [id number] [address] [place] [address] 04/18/2021 16:40:29 04/18/2021 17:49:54 [id number] [address] [place] [address] 11/20/2019 12:14:41 11/20/2019 13:14:49 [id number] Ag Lara MD [address] [place] [address] 11/19/2022 11:04:24 11/19/2022 12:41:23 Pain in left foot [id number] 96888 M79.672 Imaging did not indicate acute fracture [...] today and the radiology interpreta tion. Dizziness 974807066 R42 Vital stable. Suicidal thoughts 164445 6 R45.851 Patient has SI and HI [...] [place] [employer] Raulito Zepeda [id number] Raulito Zepeda 12/30/2022 2 [place] [facility] Raulito Zepeda [id number] Raulito Zepeda 11/19/2022 [facility] - SPECIALITY CLAIMS [place] [facility] [place] Raulito Zepeda [id number] Raulito Zepeda
== END 2025-06-06 13:06 | disposition home or self-care (01) ==
PROVIDERS: PCP Internal Medicine; Visit Provider Physician Assistant
DX: J06.9 Acute upper respiratory infection, unspecified (principal)

== ENCOUNTER → 2025-06-06 11:18 | Outpatient (BNVA) | payer MEDICARE, MEDICAID, SELFPAY | PROVIDERS: PCP Internal Medicine; Visit Provider Physician Assistant | DX: J06.9 Acute upper respiratory infection, unspecified (principal) | CPT/HCPCS: 99212 ==

== ENCOUNTER 2025-06-09 10:06 | Outpatient (AMB) | payer MEDICARE, MEDICAID, SELFPAY ==
[2025-06-09 10:15] VITALS: BP 152/96; PULSE 78; RESP 18; TEMP 36.2; O2SAT 97; BMI 38.3
--- NOTE | 2025-06-09 10:15 | A.OFFVIS_ITS ---
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 Allergies Sulfa (Sulfonamide Antibiotics) Allergy (Severe, Verified 06/09/25 10:32) CHAVEZ ALICIA REACTION trimethoprim Allergy (Mild, Verified 06/09/25 10:32) UNKNOWN lactose Adverse Reaction (Mild, Verified 06/09/25 10:32) STOMACH UPSET Medication List - Last Reconciled 06/09/25 by Robert Sumner MD acetaminophen 650 mg (2 x 325 mg) PO Q4H PRN 90 days [Adult briefs As directed] albuterol sulfate 90 mcg/actuation 2 puffs inhalation Q6H PRN alum-mag hydroxide-simeth 400-400-40 mg/5 mL (Advanced Antacid-Antigas) 5 mL PO QID PRN [[id number] As directed] atorvastatin 10 mg PO BEDTIME [Bilateral custom AFO As directed] blood sugar diagnostic (Curbed.com No Coding strips) As directed 2 times per day blood-glucose meter (Aptos Industriesuch Ultra2 Meter) test once daily blood-glucose meter (Curbed[employer]com Autocode Blood Glucose Monitoring System) As directed cholecalciferol (vitamin D3) 25 mcg PO DAILY clonidine HCl 0.1 mg PO BEDTIME alvarez.[email or web address],knee,reg,xlrg As directed 15-20 mm HG cyanocobalamin (vitamin B-12) 1,000 mcg PO BEDTIME dextromethorphan polistirex ER (Delsym 12 hour) 10 mL PO Q12H PRN [DIABETIC SHOES/INSERTS As directed] divalproex ER 1,000 mg PO BID empagliflozin (Jardiance) 25 mg PO DAILY esomeprazole magnesium (Nexium) 40 mg PO BEDTIME ferrous sulfate 325 mg PO BID fexofenadine-pseudoephedrine 180-240 mg ER 1 tab PO QAM 10 days fluoride (sodium) 1.1% (PreviDent 5000 Booster Plus) 1 appl dental BID fluticasone furoate-vilanterol 200-25 mcg/dose (Breo Ellipta) 1 inh inhalation DAILY fluticasone propionate 50 mcg/actuation (Flonase Allergy Relief) 1 spray intranasal BID gabapentin (Neurontin) 300 mg PO BID gabapentin (Neurontin) 300 mg PO BID [Heat Moldable shoe inserts As directed] hydralazine 50 mg PO TID ibuprofen 600 mg PO Q6H PRN lactase (Lactaid) 3,000 units PO TIDWM PRN lancets (Tabulous Cloud UltraSoft 2 Lancet) test once daily lancets (MissingLINKigy Lancets) As directed check BS twice a day lancing device (MissingLINKigy Lancing Device) As directed lisinopril 5 mg PO DAILY loperamide 2 mg PO Q8H PRN togwurjm-ojdsvvqwiPk-zrzsbmdsS 3.5-400-5,000 fd-pned-mgia (Triple Antibiotic) 1 appl topical BID propranolol 20 mg PO TID@0800,1600,2000 90 days risperidone 3 mg PO BID starch (thickening) (Diafoods Thick-It oral powder) Add thick it powder to food and beverage using enclosed measuring spoon TID 30 days triamcinolone acetonide 0.1% dental [wheelchair cushion As directed] HPI AWV HPI Details [place] of care [facility] speech and hearing, [facility] [place] surgery is Dr. Newberry automotive brake specialist association for Podiatry [facility] gastro Urology Hematology Dr. Arteaga cardiovascular [facility] Medical History Feeling suicidal Tinea cruris Leg swelling Atrial flutter Atrial fib/flutter, transient A-fib Arrhythmia Abnormal EKG Contusion of left ankle Annual physical exam Abdominal pain Back pain Positive colorectal cancer screening using Cologuard test Precordial chest pain Hospital discharge follow-up Chest pain Right ankle pain Musculoskeletal chest pain Left-sided chest pain Back pain Fall Dysphagia Acute kidney injury Gait instability Suicidal ideation COVID-19 Hypomagnesemia Diarrhea Abdominal pain Ankle pain, left Left ankle sprain Seizure disorder Hypertension Anxiety Hyponatremia Cerebellar ataxia Anemia Lactose intolerance Vertigo Asthma Mental disability Type 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 Proteinuria Hyperlipidemia LDL goal <100 Essential hypertension Surgical History Hx of surgical procedure (07/22/24) Hx of colonoscopy History of orchiectomy Family History Father Myocardial infarction CVD (cardiovascular disease) Diabetes mellitus Mother Diabetes mellitus HTN (hypertension) Brother In good health Sister In good health Social History Household Members: Other Household Members Other:: from retirement Housing: House Housing Other:: retirement [facility] [address] Esteban [phone] Do you presently have visiting nurse or other home services: Yes 75 years or older and lives alone: No Unable to assess alcohol history related to: Unknown Alcohol intake: former 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 Patient Tobacco Use Status: Never used Tobacco Tobacco use type: Cigarette e-Cigarette/Vaping Use: Never Used Second Hand Smoke Exposure: No Advance Directives Date on File: 03/07/21 service: No Current occupational status: disabled Cognitive needs: Yes (walker) Hearing needs: No Vision needs: Yes (glasses) Questionnaire Medicare Wellness Checkup What gender do you identify with?: male During the past 4 weeks, how much have you been bothered by emotional problems such as feeling anxious, depressed, irritable, sad or downhearted, and blue?: not at all During the past 4 weeks, has your physical & emotional health limited your social activities with family, friends, neighbors, or groups?: not at all During the past 4 weeks, how much bodily pain have you generally had?: very mild pain During the past 4 weeks, was someone available to help you if you needed & wanted help?: yes, as much as I wanted During the past 4 weeks, what was the hardest physical activity you could do for at least 2 minutes?: light Can you get to places out of walking distance without help? (For eg., can you travel alone on buses, taxis or drive your car?): No Can you go shopping for groceries or clothes without someone's help?: No Can you prepare your own meals?: No Can you do your housework without help?: No Because of any health problems, do you need the help of another person with your personal care needs such as eating, bathing, dressing or getting around the house?: Yes Can you handle your own money without help?: No During the past 4 weeks, how would you rate your health in general?: fair During the past 4 weeks how have things been going for you?: pretty bad Are you having difficulties driving your car?: no Do you always fasten your seat belt when you are in a car?: yes, usually During past 4 weeks, have you been bothered by the following: never: Sexual problems?, Teeth or denture problems? and Tiredness or fatigue? and often: Falling or dizzy when standing up, Trouble eating well? and Problems using the telephone? Have you fallen 2 or more times in the past year?: Yes Are you afraid of falling?: Yes Are you a smoker?: no During the past 4 weeks, how many drinks of wine, beer, or other alcoholic beverages did you have?: no alcohol at all Do you exercise for about 20 minutes 3 or more times a week?: no, I usually do not exercise this much Have you been given information to help with the following?: yes: Keeping track of your medications? and no: Hazards in your house that might hurt you? How often do you have trouble taking medicines the way you have been told to take them?: I always take medicine as prescribed How confident are you that you can control & manage most of your health problems?: somewhat confident What is your race?: White PHQ-9 Over the last 2 weeks, how often have you been bothered by any of the following problems? 1. Little interest or pleasure in doing things: several days 2. Feeling down, depressed, or hopeless: not at all 3. Trouble falling or staying asleep, or sleeping too much: several days 4. Feeling tired or having little energy: not at all 5. Poor appetite or overeating: not at all 6. Feeling bad about yourself - or that you are a failure or have let yourself or your family down: not at all 7. Trouble concentrating on things, such as reading the newspaper or watching television: not at all 8. Moving or speaking so slowly that other people could have noticed. Or the opposite - being so fidgety or restless that you have been moving around a lot more than usual: several days 9. Thoughts that you would be better off or of hurting yourself in some way: not at all Total score: 3 Depression Screening Interpretation: Negative Depression Screening Done: Yes 91004 - PHQ-9 Billing: Yes Source: Developed by Drs. Wellington López, Monica Jackson, Ray Nguyen and colleagues, with an educational perez from [employer]. Review of Systems Const Denies poor appetite and Denies weakness Eyes Denies no additional complaints ENT Reports Normal hearing present, Denies dizziness, Denies nasal congestion, Denies tinnitus and Denies sore throat Card Denies chest pain, Denies syncope, Denies rapid heart rate and Denies dyspnea Resp Denies cough and Denies dyspnea GI Denies change in stool character, Reports constipation, Denies diarrhea, Denies nausea and Denies vomiting Denies dysuria and Denies urinary frequency Neuro Reports Normal hearing present, Denies confusion, Denies dizziness, Denies syncope and Denies weakness Psych Denies confusion Physical Exam Vital Signs: Last Vital Signs Temp 97.1 F 06/09/25 10:15 Pulse 78 06/09/25 10:15 Resp 18 06/09/25 10:15 BP 116/60 06/09/25 10:56 Pulse Ox 97 06/09/25 10:15 Oxygen Delivery Method Room Air 06/09/25 10:15 BMI result Body Mass Index 38.3 Const General: No confusion Orientation/consciousness: No confusion HEENT Head: Yes normocephalic Ears: external ears normal and TM's normal bilaterally Face and sinus: Yes normal facial exam Mouth: moist mucous membranes Throat: Yes tonsils normal Eyes Conjunctivae: conjunctivae normal Pupils: Equal, round and reactive pupils present and Pupil accommodation reflex normal Direct Ophthalmoscopy: normal light reflex Neck Neck: No lymphadenopathy Thyroid: Thyroid normal Chest Chest palpation & inspection: normal inspection of the chest Resp Effort & Inspection: normal respiratory effort and no audible wheezes Auscultation: clear to auscultation bilaterally, no crackles, no wheezes and lung sounds not diminished Cardio Rate: regular rate Rhythm: regular rhythm Peripheral pulses: radial pulses present and dorsalis pedis present GI Palpation (GI): no masses Auscultation: normal bowel sounds and normoactive bowel sounds Rectal Exam - Male: Yes deferred Skin General skin exam: no rashes or lesions noted Rashes: no rashes Neuro General: No confusion Cranial nerves: Yes Equal, round and reactive pupils present and Yes Normal hearing present Motor exam (neuro): 5/5 motor strength present throughout Deep tendon reflexes (DTR's): Right brachioradialis reflex intensity grade: 2+, Left brachioradialis reflex intensity grade: 2+, Right patellar reflex intensity grade: 2+ and Left patellar reflex intensity grade: 2+ Results AMB Hemoglobin A1c AMB Hemoglobin A1c 7.0 % Last Edit by Belem Pandya CMA on 06/09/25 10:38 Results Reviewed Results Reviewed: Laboratory Last Values Hgb A1c (Clinic) 7.0 % (4.0-6.0) H 06/09/25 10:36 Assessment & Plan Assessment & Plan (1) Medicare annual wellness visit, subsequent: Code(s): Z00.00 - Encounter for general adult medical examination without abnormal findings Plan: Patient is advised to eat healthy, keep well hydrated, keep active and have adequate sleep. (2) Type 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: Code(s): E11.29 - Type 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 Plan: Decrease the amount of carbohydrate intake, pasta, bread, rice and potatoes are all sugar and that is aside from all the sweet stuff, remember that fruits are good but they are Sweet also. Hemoglobin A1c goal of less than 6.5. Patient is on Jardiance 25 mg once a day only (3) Hyperlipidemia LDL goal <100: Code(s): E78.5 - Hyperlipidemia, unspecified Plan: Avoid fried foods, chicken skin, eggs, butter margarine, pastries and meat. Be it pork or beef they have a lot of cholesterol LDL goal of less than 100 and triglyceride of less than 150 patient is on atorvastatin 10 mg once a day (4) GERD (gastroesophageal reflux disease): Code(s): K21.9 - Gastro-esophageal reflux disease without esophagitis Qualifiers: Esophagitis presence: esophagitis presence not specified Qualified Code(s): K21.9 - Gastro-esophageal reflux disease without esophagitis Plan: Avoid the foods that causes that usually spicy foods, tomato products, juices, coffee, soda and foods that your sensitive to. After eating do not lie down, allow 3-4 hours before in lie down. And keep the head of bed above 30 degrees to avoid the acid from going up. (5) Cerebellar ataxia: Code(s): G11.9 - Hereditary ataxia, unspecified Plan: Supportive treatment on ventilator (6) Asthma: Code(s): J45.909 - Unspecified asthma, uncomplicated Qualifiers: Asthma complication type: uncomplicated Asthma persistence: persistent Asthma severity: moderate Qualified Code(s): J45.40 - Moderate persistent asthma, uncomplicated Plan: Stable (7) Bilateral lower extremity edema: Comment: Patient has a history of chronic lower extremity edema. Patient will be prescribed low-dose torsemide to take for the next 5 days and encouraged to wear his compression stockings daily. Code(s): R60.0 - Localized edema Plan: When sitting down elevate the legs, exercise, and support stockings (8) Cough: Code(s): R05.9 - Cough, unspecified Qualifiers: Cough type: acute Qualified Code(s): R05.1 - Acute cough (9) Pneumonia: Code(s): J18.9 - Pneumonia, unspecified organism Plan History of Present Illness The patient is a 54-year-old male presenting for an annual wellness visit. He has a history of schizophrenia, diabetes mellitus, hypercholesterolemia, hypertension, cerebral orthotoxia, asthma, atrial flutter, and gastroesophageal reflux disease (GERD). The patient was last seen in April 2025 and had a colonoscopy in September 2022, which revealed a tubular adenoma. He was seen in the urgent care center on June 06 for an upper respiratory tract infection and on May 06 for suicidal thoughts. Blood work in January 2025 indicated chronic anemia and thrombocytopenia, with normal electrolytes and renal function. The patient's hemoglobin A1c was 7.0, indicating suboptimal control of diabetes. Health Maintenance - Colonoscopy in September 2022 revealed tubular adenoma - Blood work in January 2025 showed chronic anemia and thrombocytopenia - Hemoglobin A1c goal of less than 6.5 - LDL cholesterol goal of less than 100 mg/dL and triglycerides less than 150 mg/dL Social History - Reports limited physical activity Review of Systems - Respiratory: Reports persistent cough, denies dyspnea - Gastrointestinal: Denies nausea, vomiting, diarrhea, or constipation - Cardiovascular: Denies chest pain, syncope - Neurological: Reports recent fall, denies loss of consciousness Physical Exam General: Cooperative, healthy appearing, comfortable, no acute distress and well developed Orientation: Patient oriented x3 Limitations: No limitations Head: Normal to inspection Ears: Hearing grossly normal bilaterally, but has scars in the eardrum, probably from infections before Nose: Normal external nose present Face and sinus: Normal facial exam Eyes: Appearance normal, both eyes and all related structures Neck: Normal visual inspection and Yes full ROM Respiratory: Wheezing and crackles noted. Patient has a persistent cough and congestion. Cardiovascular: Regular rate and rhythm. Normal S1 and S2 GI: Normal to inspection. Soft to palpation and nontender Skin: No rashes or lesions noted Neuro: Patient oriented x3 Extremities: Normal to inspection, but a little bit of swelling noted. Results - Labs: Hemoglobin A1c 7.0, indicating suboptimal diabetes control - Labs: Chronic anemia and thrombocytopenia noted in January 2025 - Imaging: Chest x-ray ordered due to persistent cough and wheezing Plan The patient will continue with the current diabetes management plan, aiming for a hemoglobin A1c goal of less than 6.5, with Jardiance 25 mg once daily. For hypercholesterolemia, the patient is to maintain an LDL cholesterol goal of less than 100 mg/dL and triglycerides less than 150 mg/dL, with atorvastatin 10 mg once daily. The patient is advised to continue using the inhaler for asthma management and to rinse the mouth after use. A chest x-ray has been ordered to evaluate the persistent cough, and antibiotics have been prescribed to address potential pneumonia. The patient is encouraged to increase physical activity to aid in weight management and overall health improvement. Follow-up is scheduled in three months to reassess the patient's condition and management plans. Patient was informed and verbally consented to the use of an ambient scribe for clinic note documentation during this visit. Discussion Notes During the visit, I discussed the importance of managing diabetes and hypercholesterolemia with the patient, emphasizing the need to achieve target goals for hemoglobin A1c and LDL cholesterol. We reviewed the use of the inhaler for asthma and the necessity of rinsing the mouth after use to prevent oral complications. I explained the rationale for ordering a chest x-ray to investigate the persistent cough and the decision to prescribe antibiotics to address potential pneumonia. The patient was advised to increase physical activity and was informed about the follow-up appointment scheduled in three months. Patient Instructions - Continue taking Jardiance 25 mg once daily for diabetes management. - Take atorvastatin 10 mg once daily for cholesterol management. - Use the inhaler as prescribed and rinse your mouth after each use. - Get a chest x-ray as ordered to check for any lung issues. - Take prescribed antibiotics as directed to treat potential pneumonia. - Increase physical activity to help with weight management. - Follow up in three months for reassessment. Orders: Orders XR chest 2V Today R05.1 - Acute cough AMB Hemoglobin A1c Today Z13.9 - Encounter for screening, unspecified Medications: New amoxicillin-pot clavulanate 875-125 mg 1 tab PO BID 14 tabs 0RF J18.9 - Pneumonia, unspecified organism clindamycin HCl (Cleocin HCl) 300 mg PO TID 21 caps 0RF J18.9 - Pneumonia, unspecified organism Quality Reporting (2019) Depression/Bipolar (159/160/161/177) PHQ-9: Total score: 3 Coding Level of Care Code Medicare Subsequent (G0439) Diagnoses Medicare annual wellness visit, subsequent Z00.00 Type 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 E11.29 Hyperlipidemia LDL goal <100 E78.5 Gastroesophageal reflux disease, unspecified whether esophagitis present K21.9 Esophagitis presence: esophagitis presence not specified Cerebellar ataxia G11.9 Moderate persistent asthma without complication J45.40 Asthma complication type: uncomplicated Asthma persistence: persistent Asthma severity: moderate Bilateral lower extremity edema R60.0 Acute cough R05.1 Cough type: acute Pneumonia J18.9 Additional Codes PHQ-9 - 02182 - PHQ-9 Billing: Yes ([id number])
--- OUTSIDE RECORDS SUMMARY | 2025-06-09 10:50 | XMS_ITS | Clinical Summary ---
Author Organization [address] [facility] Address [address] [place] [address] Phone Care Team Providers Care Contract Administration Manager Name Role Phone Robert Sumner MD Primary Care Provider [phone] Allergies Active Allergy Reactions Criticality Noted Date [...] Upcoming Encounters Date Type Department Care Team ([facility] Contact Info) Description 06/14/2025 10:30 AM EDT Office Visit Orthopedic Surgery [place] [id number] [phone] Jose Bonds DPM [address] [address] Health Maintenance Due Date Last Done Comments [...] Documents on File Type Date Recorded 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
--- OUTSIDE RECORDS SUMMARY | 2025-06-09 10:50 | XMS_ITS | Clinical Summary ---
Author Organization [facility] Address [address] [place] [phone] Phone Care Team Providers Care Patient Financial Services Specialist Name Role Phone Robert Sumner MD Primary Care Provider [phone] Allergies Active Allergy Reactions Criticality Noted Date [...] Only [facility] [address] Chana Schrader ARNP Chronic kidney disease, stage [...] Visit [facility] P.. [address] [phone] Frantz Luis MD [address] [phone] Health Maintenance Due Date Last Done Comments [...] Medicaid [place] Medicaid [place] Care Teams Patient Financial Services Specialist Relationship Specialty Start Date End Date Robert Sumner MD [address] [place] PCP - General 11/20/20
[2025-06-09 10:56] VITALS: BP 116/60
== END 2025-06-09 11:25 | disposition home or self-care (01) ==
LOC: HO.HMCH 10:07
PROVIDERS: PCP Internal Medicine; Visit Provider Internal Medicine
DX: Z00.00 Encounter for general adult medical examination without abnormal findings (principal); E11.29 Type 2 diabetes mellitus with other diabetic kidney complication; G11.9 Hereditary ataxia, unspecified; E78.5 Hyperlipidemia, unspecified; K21.9 Gastro-esophageal reflux disease without esophagitis; J45.40 Moderate persistent asthma, uncomplicated; R60.0 Localized edema; R05.1 Acute cough; J18.9 Pneumonia, unspecified organism

== ENCOUNTER → 2025-06-09 10:06 | Outpatient (BNVA) | payer MEDICARE, MEDICAID, SELFPAY | PROVIDERS: PCP Internal Medicine; Visit Provider Internal Medicine | DX: Z00.00 Encounter for general adult medical examination without abnormal findings (principal); E11.29 Type 2 diabetes mellitus with other diabetic kidney complication; E78.5 Hyperlipidemia, unspecified; K21.9 Gastro-esophageal reflux disease without esophagitis; G11.9 Hereditary ataxia, unspecified; J45.40 Moderate persistent asthma, uncomplicated; R60.0 Localized edema; R05.1 Acute cough; J18.9 Pneumonia, unspecified organism | CPT/HCPCS: 83036; 96127 ==

== ENCOUNTER 2025-06-10 09:04 | Outpatient (REF) | payer MEDICARE, MEDICAID, SELFPAY ==
--- NOTE | ~2025-06-10 | XR_ITS ---
EXAMINATION: XR CHEST CLINICAL INFORMATION: R05.1 - Acute cough COMPARISON: 03/09/2025. TECHNIQUE: 2 views of the chest were obtained. FINDINGS: The cardiac, hilar, and mediastinal contours are normal. The lungs are clear bilaterally. There is no pneumothorax or pleural effusion. There is no focal osseous or soft tissue abnormality. Mild degenerative changes in the shoulder joints and throughout the spine. XR/XR chest 2V IMPRESSION: No active pulmonary disease. Electronically signed by: Tj Luis MD 06/10/2025 09:25 AM EDT
--- OUTSIDE RECORDS SUMMARY | 2025-06-10 09:20 | XMS_ITS | Clinical Summary ---
Author Organization [facility] Address [address] [place] [phone] Phone Care Team Providers Care Director Of Strategic Communications Name Role Phone Robert Sumner MD Primary Care Provider [phone] Allergies Active Allergy Reactions Criticality Noted Date [...] Only [facility] [address] [address] Chana Schrader ARNP Chronic kidney disease, stage [...] Visit [facility] [address] [phone] Frantz Luis MD [address] [phone] Health Maintenance Due Date Last Done Comments [...] Medicaid [place] Care Teams Director Of Strategic Communications Relationship Specialty Start Date End Date Robert Sumner MD [address] [place] PCP - General 11/20/20
--- OUTSIDE RECORDS SUMMARY | 2025-06-10 09:20 | XMS_ITS | Clinical Summary ---
Author Organization 175 [facility] Address [address] [place] [address] Phone Care Team Providers Care Hot Metal Car Operator Name Role Phone Robert Sumner MD Primary Care Provider [phone] Allergies Active Allergy Reactions Criticality Noted Date [...] Upcoming Encounters Date Type Department Care Team ([facility] Contact Info) Description 06/14/2025 10:30 AM EDT Office Visit Orthopedic Surgery [place] [phone] [phone] Jose Bonds DPM [address] [address] Health Maintenance Due Date Last Done Comments [...] Documents on File Type Date Recorded 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
== END 2025-06-10 09:05 | disposition home or self-care (01) ==
LOC: HO.HMGCX 09:04
PROVIDERS: PCP Internal Medicine; Visit Provider Internal Medicine
DX: R05.1 Acute cough (principal)
CPT/HCPCS: 71046

== ENCOUNTER → 2025-06-10 09:15 | Outpatient (BNV) | payer MEDICARE, MEDICAID, SELFPAY | PROVIDERS: PCP Internal Medicine; Visit Provider Radiology Diagnostic Radiology | DX: R05.1 Acute cough (principal) | CPT/HCPCS: 71046 ==

== ENCOUNTER 2025-06-21 10:18 | Outpatient (AMB) | payer MEDICARE, MEDICAID, SELFPAY ==
[2025-06-21 10:22] VITALS: BP 128/70; PULSE 76; TEMP 36.6; O2SAT 98; BMI 37.4
--- NOTE | 2025-06-21 10:22 | AM.OFFWIN_ITS ---
Intake Vital Signs 06/21/25 10:22 Height 5 ft 5 in Weight 224 lb 8 oz BMI 37.4 BP 128/70 Blood Pressure Location Lt brachial Position Sitting Pulse 76 Temp 97.8 F Temp Source Oral Pulse Oximetry (%) 98 Oxygen Delivery Method Room Air Intake Visit Reasons: EP Sore throat, dizzy Patient Tobacco Use Status: Never used Tobacco Allergies Sulfa (Sulfonamide Antibiotics) Allergy (Severe, Verified 06/21/25 10:28) CHAVEZ ALICIA REACTION trimethoprim Allergy (Mild, Verified 06/21/25 10:28) UNKNOWN lactose Adverse Reaction (Mild, Verified 06/21/25 10:28) STOMACH UPSET Do you need a note to return to daycare/school/sports/work: Yes HPI HPI Comments History of Present Illness Details History - The patient is a 54-year-old male pres enting with a sore throat and worsening asthma symptoms. - Sore throat onset today, no symptoms y esterday. - Completed antibiotics for pneumonia re cently one week ago and felt fine until today. - Asthma exacerbation with increased kaylen rtness of breath and cough. - Has not used his rescue inhaler use, h e is not in charge of his medication. - Also has dizziness. - No sinus pain, headaches or fevers. Physical Exam General: Cooperative, healthy appearing, comfortable and no acute distress Orientation/consciousness: Patient oriented x3 Limitations: No limitations Head: Normal to inspection Ears: Hearing grossly normal bilaterally, external ears normal, right TM with cerumen, left TM with purulence, loss of landmarks, edema and erythema Nose: Normal external nose present, Normal nares present and No nasal discharge present Face and sinus: Normal facial exam and Yes sinuses nontender Mouth: Normal oral and palatal mucosa present and moist mucous membranes Throat: Yes tonsils normal, Yes uvula midline. Posterior oropharynx erythema, right sided exudates Eyes: Appearance normal, both eyes and all related structures Neck: Normal visual inspection, full ROM Respiratory: Clear to auscultation bilaterally. Normal respiratory effort, able to speak in complete sentences, not actively coughing, no respiratory distress, not tachypneic, no tripod positioning and no use of accessory muscles Cardiovascular: Regular rate and rhythm. Normal S1 and S2 Skin: No rashes or lesions noted Neuro: Patient oriented x3 Extremities: Normal to inspection and Yes no clubbing, cyanosis or edema [facility] Medical History Feeling suicidal Tinea cruris Leg swelling Atrial flutter Atrial fib/flutter, transient A-fib Arrhythmia Abnormal EKG Contusion of left ankle Annual physical exam Abdominal pain Back pain Positive colorectal cancer screening using Cologuard test Precordial chest pain Hospital discharge follow-up Chest pain Right ankle pain Musculoskeletal chest pain Left-sided chest pain Back pain Fall Dysphagia Acute kidney injury Gait instability Suicidal ideation COVID-19 Hypomagnesemia Diarrhea Abdominal pain Ankle pain, left Left ankle sprain Seizure disorder Hypertension Anxiety Hyponatremia Cerebellar ataxia Anemia Lactose intolerance Vertigo Asthma Mental disability Type 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 Proteinuria Hyperlipidemia LDL goal <100 Essential hypertension Surgical History Hx of surgical procedure (07/22/24) Hx of colonoscopy History of orchiectomy Family History Father Myocardial infarction CVD (cardiovascular disease) Diabetes mellitus Mother Diabetes mellitus HTN (hypertension) Brother In good health Sister In good health Social History Household Members: Other Household Members Other:: from shelter Housing: House Housing Other:: shelter [facility] [address] [phone] Do you presently have visiting nurse or other home services: Yes 75 years or older and lives alone: No Unable to assess alcohol history related to: Unknown Alcohol intake: former 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 Patient Tobacco Use Status: Never used Tobacco Tobacco use type: Cigarette e-Cigarette/Vaping Use: Never Used Second Hand Smoke Exposure: No Advance Directives Date on File: 03/07/21 service: No Current occupational status: disabled Cognitive needs: Yes (walker) Hearing needs: No Vision needs: Yes (glasses) Review of Systems Const All systems reviewed & are unremarkable except as noted in HPI and below Physical Exam Vital Signs: Last Vital Signs Temp 97.8 F 06/21/25 10:22 Pulse 76 06/21/25 10:22 BP 128/70 06/21/25 10:22 Pulse Ox 98 06/21/25 10:22 Oxygen Delivery Method Room Air 06/21/25 10:22 BMI result Body Mass Index 37.4 Assessment & Plan Assessment & Plan (1) Left otitis media: Code(s): H66.92 - Otitis media, unspecified, left ear Qualifiers: Otitis media type: suppurative Chronicity: acute Recurrence: non- recurrent Spontaneous tympanic membrane rupture: without spontaneous rupture Qualified Code(s): H66.002 - Acute suppurative otitis media without spontaneous rupture of ear drum, left ear Plan: Plan - VSS, pt well appearing and PE remarkable for left OM. - Prescribe antibiotics for ear infection, adjust based on strep results. - Advise use of rescue inhaler PRN for asthma symptoms. - Monitor dizziness, recommend slow movements. - Use Flonase daily - Filled out shelter paperwork Patient was informed and verbally consented to the use of an ambient scribe for clinic note documentation during this visit Medications: New cefpodoxime must administer with a meal/food 200 mg PO Q12H 14 tabs 0RF Coding Level of Care Code Est Pt Level 3 (56814) Diagnoses Non-recurrent acute suppurative otitis media of left ear without spontaneous rupture of tympanic membrane H66.002 Otitis media type: suppurative Chronicity: acute Recurrence: non-recurrent Spontaneous tympanic membrane rupture: without spontaneous rupture
--- OUTSIDE RECORDS SUMMARY | 2025-06-21 11:19 | XMS_ITS | Clinical Summary ---
Author Organization 175 [facility] Address 175 [place] [address] Phone Care Team Providers Care Maintenance Repairman Name Role Phone Robert Sumner MD Primary Care Provider [phone] Allergies Active Allergy Reactions Criticality Noted Date Comments Sulfa (Sulfonamide Antibiotics) 12/11 Medications No known medications Encounters Date Type Department Care Team Description 06/14/2025 10:30 AM EDT Office Visit Orthopedic Surgery [facility] 250 175 [facility] [address] [place] [phone] Jose Bonds, DPM Arthritis of left ankle (Primary Dx); Acquired bilateral foot drop; Dermatophytosis of nail; Pain in toe of right foot; Pain in toe of left foot; Diabetic mononeuropathy simplex (CMS/HCC V24, CMS/HCC V28); Metatarsalgia of both feet; Type II diabetes mellitus with peripheral circulatory disorder (CMS/HCC V24, CMS/HCC V28) from Last 3 Months Social History Tobacco [...] - - Weight 103 kg (226 lb) 06/14/2025 10:15 AM EDT Height 165.1 cm (5' 5 ) 06/14/2025 10:15 AM EDT Body Mass Index 37.61 06/14/2025 10:15 AM EDT Plan of Treatment Upcoming Encounters Date Type Department Care Team ([facility] st Contact Info) Description 09/14/2025 10:15 AM EST Office Visit Orthopedic Surgery - [place] 250 175 [facility] 250 [place] [phone] Jose Bonds, DPM [address] [address] Health Maintenance Due Date Last Done Comments [...] Documents on File Type Date Recorded 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
--- OUTSIDE RECORDS SUMMARY | 2025-06-21 11:20 | XMS_ITS | Clinical Summary ---
Author Organization [facility] Address [address] [place] [phone] Phone Care Team Providers Care Can Reconditioner Name Role Phone Robert Sumner MD Primary Care Provider [phone] Allergies Active Allergy Reactions Criticality Noted Date [...] Only [facility] [address] [phone] Chana Schrader ARNP Chronic kidney disease, stage [...] Visit [facility] P.. [address] [phone] Frantz Luis MD [address] [phone] Health Maintenance Due Date Last Done Comments [...] Medicaid [place] Medicare [place] Care Teams Can Reconditioner Relationship Specialty Start Date End Date Robert Sumner MD [address] [place] PCP - General 11/20/20
== END 2025-06-21 11:11 | disposition home or self-care (01) ==
PROVIDERS: PCP Internal Medicine; Visit Provider Physician Assistant
DX: H66.002 Acute suppurative otitis media without spontaneous rupture of ear drum, left ear (principal)

== ENCOUNTER → 2025-06-21 10:18 | Outpatient (BNVA) | payer MEDICARE, MEDICAID, SELFPAY | PROVIDERS: PCP Internal Medicine; Visit Provider Physician Assistant | DX: H66.002 Acute suppurative otitis media without spontaneous rupture of ear drum, left ear (principal) | CPT/HCPCS: 99212 ==

== ENCOUNTER 2025-06-24 13:27 | Outpatient (AMB) | payer MEDICARE, MEDICAID, SELFPAY ==
--- OUTSIDE RECORDS SUMMARY | 2025-06-24 13:30 | XMS_ITS | Clinical Summary ---
Author Organization 175 [facility] Address 175 [place] [address] Phone Care Team Providers Care Forestry Fire Aid Name Role Phone Robert Sumner MD Primary Care Provider [phone] Allergies Active Allergy Reactions Criticality Noted Date Comments Sulfa (Sulfonamide Antibiotics) 12/11 Medications No known medications Encounters Date Type Department Care Team Description 06/14/2025 10:30 AM EDT Office Visit Orthopedic Surgery [facility] 250 175 [facility] [address] [place] [phone] Jose Bonds, DPM Arthritis of left [...] Upcoming Encounters Date Type Department Care Team ([facility] st Contact Info) Description 09/14/2025 10:15 AM EST Office Visit Orthopedic Surgery - [place] 250 175 [facility] 250 [place] [phone] Jose Bonds, DPM [address] [address] Health Maintenance Due Date Last Done Comments [...] Documents on File Type Date Recorded 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
--- OUTSIDE RECORDS SUMMARY | 2025-06-24 13:30 | XMS_ITS | Clinical Summary ---
Author Organization [facility] Address [address] [place] [phone] Phone Care Team Providers Care Telegraphic Typewriter Repairer Name Role Phone Robert Sumner MD Primary Care Provider [phone] Allergies Active Allergy Reactions Criticality Noted Date [...] [facility] [address] [phone] Chana Schrader ARNP Chronic kidney disease, stage [...] [facility] P.. [address] [phone] Frantz Luis MD [address] [phone] Health Maintenance Due Date Last Done Comments [...] Medicaid [place] Medicare Medicaid [place] Care Teams Telegraphic Typewriter Repairer Relationship Specialty Start Date End Date Robert Sumner MD [address] [place] PCP - General 11/20/20
--- NOTE | 2025-06-24 13:33 | MHC.OFFVIS ---
Vital Signs 06/24/25 13:35 Height 5 ft 5 in Weight 224 lb BMI 37.3 BP 140/70 H Blood Pressure Location Rt brachial Position Sitting Pulse 78 Pulse Source Pulse Oximeter Pulse Oximetry (%) 100 Oxygen Delivery Method Room Air Intake Visit Reasons: Repeat colo. Overdue. Last 2021 w/ 6 mos recall Intake Note: Est pt for recall colo. Last 2021. Overdue. Hx of dysphagia. CC: Pt states that he still has some intermittent umbilical pain. Pt also reports that he is still having some mild dysphagia but he is not using his thickit as much as he was relying on it previously. Modified barium swallow performed 04/19/25. Dressage Judge Required: No Accompanied by: Wood Milling Machine Operator Allergies Sulfa (Sulfonamide Antibiotics) Allergy (Severe, Verified 06/24/25 13:33) CHAVEZ ALICIA REACTION trimethoprim Allergy (Mild, Verified 06/24/25 13:33) UNKNOWN lactose Adverse Reaction (Mild, Verified 06/24/25 13:33) STOMACH UPSET HPI HPI Repeat colo. Overdue. Last 2021 w/ 6 mos recall: Details: LAST VISIT: 09/26/2023 GERD (gastroesophageal reflux disease) Diarrhea Abdominal pain Plan Will send patient for modified barium swallow. Patient will start taking Citrucel 2 tablets in the morning and to send us in the evening. Discussed with patient avoiding dietary triggers in late night snacking. Continue current PPI treatment. Patient continues to refuse colonoscopy. I will see patient in 3 months, sooner on as needed basis. Patient is agreeable to this plan and verbalizes understanding of instructions. He was given the opportunity to ask questions and all questions answered. ? Thank you for allowing to participate in his care Orders [place] barium swallow modified 09/26/23 R13.10 Changed Changed From methylcellulose (laxative) 500 mg PO DAILY Changed To methylcellulose (laxative) (Citrucel) 1,000 mg (2 x 500 mg) PO DAILY 60 tabs 3RF Changed From sennosides hold for loose stools 8.6 mg PO BEDTIME PRN 90 tabs 0RF constipation Changed To sennosides (Senna Lax) 17.2 mg (2 x 8.6 mg) PO BEDTIME 90 tabs 0RF constipation TODAY'S VISIT: Patient is here today to discuss going for colonoscopy. His last colonoscopy was 09/26/2022, patient had suboptimal prep and recommendation was made for patient to return within a year. Patient has not followed up in the past couple years. Patient states that he has been going through lot of changes. Complete medication revision was done for him. Patient is able to ambulate more using wheeled walker. No longer has to sit in the wheelchair for most of the day. Patient reports that he is moving his bowels well. Patient is not using any laxative. Denies melena, hematochezia, unintentional weight loss or ribbon like stools. Patient denies any dyspepsia, dysphagia or odynophagia. Patient is taking Nexium and his symptoms are suppressed. However patient has been on PPI for very long time and he should get endoscopy as well. No issues with anesthesia in the past. Will need to clear him from Cardiology. Patient is not on any anticoagulation medication. [facility] Medical History Feeling suicidal Tinea cruris Leg swelling Atrial flutter Atrial fib/flutter, transient A-fib Arrhythmia Abnormal EKG Contusion of left ankle Annual physical exam Abdominal pain Back pain Positive colorectal cancer screening using Cologuard test Precordial chest pain Hospital discharge follow-up Chest pain Right ankle pain Musculoskeletal chest pain Left-sided chest pain Back pain Fall Dysphagia Acute kidney injury Gait instability Suicidal ideation COVID-19 Hypomagnesemia Diarrhea Abdominal pain Ankle pain, left Left ankle sprain Seizure disorder Hypertension Anxiety Hyponatremia Cerebellar ataxia Anemia Lactose intolerance Vertigo Asthma Mental disability Type 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 Proteinuria Hyperlipidemia LDL goal <100 Essential hypertension Surgical History Hx of surgical procedure (07/22/24) Hx of colonoscopy History of orchiectomy Family History Father Myocardial infarction CVD (cardiovascular disease) Diabetes mellitus Mother Diabetes mellitus HTN (hypertension) Brother In good health Sister In good health Social History Household Members: Other Household Members Other:: from fpc Housing: House Housing Other:: fpc [facility] [address] [phone] Do you presently have visiting nurse or other home services: Yes 75 years or older and lives alone: No Unable to assess alcohol history related to: Unknown Alcohol intake: former 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 Patient Tobacco Use Status: Never used Tobacco Tobacco use type: Cigarette e-Cigarette/Vaping Use: Never Used Second Hand Smoke Exposure: No Advance Directives Date on File: 03/07/21 service: No Current occupational status: disabled Cognitive needs: Yes (walker) Hearing needs: No Vision needs: Yes (glasses) Review of Systems Const Denies weight gain and Denies weight loss ENT Reports no additional complaints, Denies dysphagia and Denies odynophagia Card Reports no additional complaints Resp Reports no additional complaints GI Denies abdominal pain, Denies belching, Denies melena, Denies bloating, Denies change in bowel habits, Denies dysphagia, Denies excessive flatus, Denies dyspepsia, Denies heartburn, Denies diarrhea, Denies loose stools, Denies nausea, Denies odynophagia and Denies vomiting Reports no additional complaints Musc Reports no additional complaints Neuro Reports no additional complaints Psych Reports no additional complaints Endo Reports no additional complaints Physical Exam Vital Signs: Last Vital Signs Pulse 78 06/24/25 13:35 BP 140/70 H 06/24/25 13:35 Pulse Ox 100 06/24/25 13:35 Oxygen Delivery Method Room Air 06/24/25 13:35 BMI result Body Mass Index 37.3 Const Other: pt ambulating with wheeled walker General: no acute distress Nutritional Appearance: obese Orientation/consciousness: patient oriented x3 HEENT Head: Yes normal to inspection, Yes normocephalic and Yes atraumatic Face and sinus: Yes normal facial exam Mouth: Normal oral and palatal mucosa present Throat: Yes posterior oropharynx normal, Yes tonsils normal and Yes uvula midline Eyes General: appearance normal, both eyes and all related structures Neck Neck: Yes normal visual inspection, Yes full ROM and Yes trachea midline Thyroid: Thyroid normal Resp Effort & Inspection: normal respiratory effort, able to speak in complete sentences, no tracheal deviation and symmetric chest movement Auscultation: clear to auscultation bilaterally Cardio Rate: regular rate Heart sounds: S1 normal heart sound present and S2 normal heart sound present GI Inspection: Yes normal to inspection, No distended and Yes obesity Palpation (GI): Soft to palpation, not firm, nontender and No hepatosplenomegaly present Auscultation: normal bowel sounds General: Yes no CVA tenderness Back/Spine/Pelvis Back: no CVA tenderness Skin General skin exam: elasticity normal, turgor normal and dry skin Neuro General: patient oriented x3 Psych Appearance: grossly normal Mental Status: mental status grossly normal Speech and movement: Normal speech and movement present Affect: normal affect Attitude: cooperative Thought process: Normal thought process present Thought content: Normal thought content present Insight: Good insight present (Psych) Judgement: Good judgement present (Psych) Assessment & Plan Assessment & Plan (1) GERD (gastroesophageal reflux disease): Code(s): K21.9 - Gastro-esophageal reflux disease without esophagitis Category: Medical Qualifiers: Esophagitis presence: esophagitis presence not specified Qualified Code(s): K21.9 - Gastro-esophageal reflux disease without esophagitis (2) Dysphagia: Code(s): R13.10 - Dysphagia, unspecified Category: Medical Qualifiers: Dysphagia type: pharyngoesophageal phase Qualified Code(s): R13.14 - Dysphagia, pharyngoesophageal phase (3) Helicobacter pylori (H. pylori) infection: Code(s): A04.8 - Other specified bacterial intestinal infections Category: Medical (4) Screen for colon cancer: Code(s): Z12.11 - Encounter for screening for malignant neoplasm of colon (5) IBS (irritable bowel syndrome): Code(s): K58.9 - Irritable bowel syndrome, unspecified Qualifiers: Irritable bowel syndrome type: with both diarrhea and constipation Qualified Code(s): K58.2 - Mixed irritable bowel syndrome Plan Patient will continue taking Nexium daily. Avoid dietary triggers and late night snacking. Message sent to surgical schedulers to book procedure for patient. Patient denies any cardiac or respiratory issues. Encouraged patient to do thickened liquids just as recommended per speech therapy. Patient will be sent for upper endoscopy to rule out gastritis, esophagitis, duodenitis, H pylori. Patient does have a history of H pylori in the past. Patient was encouraged to take Dulcolax as needed. Currently is not constipated, however due to his poor prep in the past he was encouraged to take Dulcolax 1 week before the procedure. What to expect before during and after procedure discussed with patient. Stressed the importance of good bowel prep and clear liquid diet day before procedure. Patient will follow-up in our office after the procedure, sooner on as needed basis. He is agreeable to this plan and verbalizes understanding of instructions. He was given the opportunity to ask questions and all questions answered. Thank you for allowing me to participate in his care Medications: New bisacodyl (Dulcolax (bisacodyl)) 10 mg (2 x 5 mg) PO BEDTIME 180 tabs 4RF polyethylene glycol 3350 (Miralax) As directed by gastroenterology department at [facility] 238 grams PO ONCE 238 grams 0RF Z12.11 - Encounter for screening for malignant neoplasm of colon Coding Level of Care Code Est Pt Level 4 (58336) Complex EM visit Add On G2211 Diagnoses Gastroesophageal reflux disease, unspecified whether esophagitis present K21.9 Esophagitis presence: esophagitis presence not specified Pharyngoesophageal dysphagia R13.14 Dysphagia type: pharyngoesophageal phase Helicobacter pylori (H. pylori) infection A04.8 Screen for colon cancer Z12.11 Irritable bowel syndrome with both constipation and diarrhea K58.2 Irritable bowel syndrome type: with both diarrhea and constipation Time Spent (min) 40 Comment 25 minutes spent with patient and additional 15 minutes spent reviewing his records
[2025-06-24 13:35] VITALS: BP 140/70; PULSE 78; O2SAT 100; BMI 37.3
== END 2025-06-24 14:30 | disposition home or self-care (01) ==
LOC: HO.HGI 13:27
PROVIDERS: Visit Provider Nurse Practitioner Family
DX: K21.9 Gastro-esophageal reflux disease without esophagitis (principal); R13.14 Dysphagia, pharyngoesophageal phase; A04.8 Other specified bacterial intestinal infections; K58.2 Mixed irritable bowel syndrome; Z12.11 Encounter for screening for malignant neoplasm of colon
CPT/HCPCS: 99214; G2211

== ENCOUNTER → 2025-06-24 13:27 | Outpatient (BNVA) | payer MEDICARE, MEDICAID, SELFPAY | PROVIDERS: Visit Provider Nurse Practitioner Family | DX: Z12.11 Encounter for screening for malignant neoplasm of colon (principal); K21.9 Gastro-esophageal reflux disease without esophagitis; K58.2 Mixed irritable bowel syndrome; R13.14 Dysphagia, pharyngoesophageal phase; A04.8 Other specified bacterial intestinal infections | CPT/HCPCS: 99212 ==

== ENCOUNTER 2025-06-28 10:34 | Outpatient (AMB) | payer MEDICARE, MEDICAID, SELFPAY ==
[2025-06-28 10:46] VITALS: BP 130/62; RESP 81; O2SAT 98; BMI 38.0
--- NOTE | 2025-06-28 10:46 | MHC.PC.OV ---
Vital Signs 06/28/25 10:46 Height 5 ft 5 in Weight 228 lb 9.91 oz BMI 38.0 BP 130/62 Blood Pressure Location Lt brachial Position Sitting Respiration 81 H Pulse Source Pulse Oximeter Pulse Oximetry (%) 98 Oxygen Delivery Method Room Air Intake Visit Reasons: DM Allergies Sulfa (Sulfonamide Antibiotics) Allergy (Severe, Verified 06/28/25 10:46) CHAVEZ ALICIA REACTION trimethoprim Allergy (Mild, Verified 06/28/25 10:46) UNKNOWN lactose Adverse Reaction (Mild, Verified 06/28/25 10:46) STOMACH UPSET Tobacco use date assessed: 04/27/25 Dental Screening Dental Screen Date: 11/12/24 [facility] Medical History Feeling suicidal Tinea cruris Leg swelling Atrial flutter Atrial fib/flutter, transient A-fib Arrhythmia Abnormal EKG Contusion of left ankle Annual physical exam Abdominal pain Back pain Positive colorectal cancer screening using Cologuard test Precordial chest pain Hospital discharge follow-up Chest pain Right ankle pain Musculoskeletal chest pain Left-sided chest pain Back pain Fall Dysphagia Acute kidney injury Gait instability Suicidal ideation COVID-19 Hypomagnesemia Diarrhea Abdominal pain Ankle pain, left Left ankle sprain Seizure disorder Hypertension Anxiety Hyponatremia Cerebellar ataxia Anemia Lactose intolerance Vertigo Asthma Mental disability Type 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 Proteinuria Hyperlipidemia LDL goal <100 Essential hypertension Surgical History Hx of surgical procedure (07/22/24) Hx of colonoscopy History of orchiectomy Family History Father Myocardial infarction CVD (cardiovascular disease) Diabetes mellitus Mother Diabetes mellitus HTN (hypertension) Brother In good health Sister In good health Social History Household Members: Other Household Members Other:: from alf Housing: House Housing Other:: alf [facility] [address] [phone] Do you presently have visiting nurse or other home services: Yes 75 years or older and lives alone: No Unable to assess alcohol history related to: Unknown Alcohol intake: former 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 1. Little interest or pleasure in doing things: several days 2. Feeling down, depressed, or hopeless: not at all 3. Trouble falling or staying asleep, or sleeping too much: several days 4. Feeling tired or having little energy: not at all 5. Poor appetite or overeating: not at all 6. Feeling bad about yourself - or that you are a failure or have let yourself or your family down: not at all 7. Trouble concentrating on things, such as reading the newspaper or watching television: not at all 8. Moving or speaking so slowly that other people could have noticed. Or the opposite - being so fidgety or restless that you have been moving around a lot more than usual: several days 9. Thoughts that you would be better off or of hurting yourself in some way: not at all Total score: 3 Depression Screening Interpretation: Negative Depression Screening Done: Yes 58224 - PHQ-9 Billing: Yes Source: Developed by Drs. Wellington López, Monica Jackson, Ray Nguyen and colleagues, with an educational perez from [employer]. Thrive Questionnaire Date Thrive assessed: 04/01/25 I am a: Parent/Caregiver What is your living situation today?: I choose not to answer this question Within the past 12 months, did the food you bought not last and you didn't have the money to get more?: I choose not to answer this question Within the past 12 months, did you worry whether your food would run out before you got money to buy more?: I choose not to answer this question Do you have trouble paying for medicines?: No Do you have trouble getting transportation to medical appointments?: No Do you have trouble paying your heating and electricity bill?: No Do you have trouble taking care of your child, family member or friend?: No Do you have trouble with day-to-day activities such as bathing, preparing meals, shopping, managing finances, etc.?: No Are you currently unemployed and looking for a job?: I choose not to answer this question Are you interested in more education?: No Please select the resources that you would like help with: None Currently or been in a relationship where the following occur: I choose not to answer THRIVE Score: 0 CHANI-7 AMB Questionnaire CHANI-7 Date CHANI - 7 assessed: 11/12/24 Source: Developed by Drs. Wellington López, Monica Jackson, Ray Nguyen and colleagues, with an educational perez from [employer]. Physical exam (Primary Care) Vital Signs: Last Vital Signs Resp 81 H 06/28/25 10:46 BP 130/62 06/28/25 10:46 Pulse Ox 98 06/28/25 10:46 Oxygen Delivery Method Room Air 06/28/25 10:46 BMI result Body Mass Index 38.0 Tobacco/Smoking Status: Tobacco use Status Tobacco use date assessed 04/27/25 06/28/25 10:48 Patient Tobacco Use Status Never used Tobacco 06/28/25 10:48 Tobacco use type Cigarette 06/28/25 10:48 e-Cigarette/Vaping Use Never Used 06/28/25 10:48 PHQ-9: PHQ-9 Score PHQ-9: Total score 3 06/28/25 11:16 Depression Screening Interpretation: Negative Thrive Assessment: Date of Thrive Assessment Date Thrive assessed 04/01/25 06/28/25 10:48 Currently or been in a relationship where the following occur: I choose not to answer Const General: alert; No acute distress Eyes Conjunctivae: conjunctivae normal Resp Auscultation: clear to auscultation bilaterally Cardio Rate: regular rate Rhythm: regular rhythm GI Inspection: Yes normal to inspection Extrem General: Yes normal to inspection and No edema Coding Level of Care Code Est Pt Level 4 (84183) Complex EM visit Add On G2211 Diagnoses Type 2 diabetes mellitus with hyperglycemia, without long-term current use of insulin E11.65 Diabetes mellitus intermediate project manager insulin use: without intermediate project manager use Hyperlipidemia LDL goal <100 E78.5 Essential hypertension I10 Atrial flutter I48.92 Gastroesophageal reflux disease, unspecified whether esophagitis present K21.9 Esophagitis presence: esophagitis presence not specified Additional Codes PHQ-9 - 09602 - PHQ-9 Billing: Yes ([id number]) Assessment & Plan Assessment & Plan (1) Type 2 diabetes mellitus with hyperglycemia: Code(s): E11.65 - Type 2 diabetes mellitus with hyperglycemia Category: Medical Qualifiers: Diabetes mellitus intermediate project manager insulin use: without intermediate project manager use Qualified Code(s): E11.65 - Type 2 diabetes mellitus with hyperglycemia Plan: Decrease the amount of carbohydrate intake, pasta, bread, rice and potatoes are all sugar and that is aside from all the sweet stuff, remember that fruits are good but they are Sweet also. Hemoglobin A1c goal of less than 6.5. Patient had a hemoglobin A1c in May of 7.0 on Jardiance 25 mg once a day (2) Hyperlipidemia LDL goal <100: Code(s): E78.5 - Hyperlipidemia, unspecified Category: Medical Plan: Avoid fried foods, chicken skin, eggs, butter margarine, pastries and meat. Be it pork or beef they have a lot of cholesterol last blood work was in on September will request for a new blood work. (3) Essential hypertension: Code(s): I10 - Essential (primary) hypertension Category: Medical Plan: Continue with blood pressure medication. Decrease salt intake and exercise has lisinopril 5 mg once a day hydralazine 50 mg 3 times a day (4) Atrial flutter: Code(s): I48.92 - Unspecified atrial flutter Category: Medical Plan: Stable no anticoagulation patient has cerebellar ataxia (5) GERD (gastroesophageal reflux disease): Code(s): K21.9 - Gastro-esophageal reflux disease without esophagitis Category: Medical Qualifiers: Esophagitis presence: esophagitis presence not specified Qualified Code(s): K21.9 - Gastro-esophageal reflux disease without esophagitis Plan: Avoid the foods that causes that usually spicy foods, tomato products, juices, coffee, soda and foods that your sensitive to. After eating do not lie down, allow 3-4 hours before in lie down. And keep the head of bed above 30 degrees to avoid the acid from going up. Plan History of Present Illness The patient is a 54-year-old male presenting for a follow-up visit after being last seen for an annual wellness check in May 2025. The patient has a history of schizophrenia, which was noted during the visit. He also has cerebellar ataxia, diabetes mellitus, hypercholesterolemia, and hypertension. His diabetes management includes Jardiance 25 mg once daily, with a recent hemoglobin A1c of 7.0 in May. The goal for hemoglobin A1c is less than 6.5. The patient was seen by gastroenterology on June 24 for gastroesophageal reflux disease (GERD) and dysphagia, and is currently on Nexium. An upper endoscopy and colonoscopy are planned. In June, the patient visited an urgent care center for a sore throat and dizziness, and was treated for left otitis media with antibiotics. A chest X-ray conducted on June 10 was negative. Blood work in January showed mild anemia, but renal function was stable. The last cholesterol test in September 2024 showed an LDL of 80 mg/dL. 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 - The patient is encouraged to eat healthy and is supervised during meals to ensure proper nutrition. Review of Systems - Neurological: Reports dizziness, denies balance issues. - Gastrointestinal: Reports dysphagia, denies abdominal pain. - Ears, Nose, Throat: Reports sore throat, denies hearing loss. Physical Exam Results - Labs: Blood work in January showed mild anemia, stable renal function, hemoglobin A1c of 7.0 in May. - Imaging: Chest X-ray on June 10 was negative. - Tests: Cholesterol test in September 2024 showed LDL of 80 mg/dL. Plan The patient will continue on Jardiance 25 mg daily for diabetes management, with a goal to reduce hemoglobin A1c to below 6.5. A follow-up blood test is scheduled for three months to monitor diabetes and cholesterol levels. For GERD and dysphagia, the patient will remain on Nexium and is advised to eat slowly and carefully to prevent aspiration. An upper endoscopy and colonoscopy are planned to further evaluate these conditions. The patient is advised to receive a shingles vaccination due to a previous episode in August 2024. Preventative care measures include a colon cancer screening completed in September 2022. Patient was informed and verbally consented to the use of an ambient scribe for clinic note documentation during this visit. Discussion Notes I discussed with the patient the importance of maintaining diabetes control with Jardiance and the goal of reducing hemoglobin A1c to below 6.5. We also talked about the need for a follow-up blood test in three months to monitor diabetes and cholesterol levels. For GERD and dysphagia, I emphasized the importance of taking Nexium and eating slowly to prevent aspiration, with plans for an upper endoscopy and colonoscopy. I recommended a shingles vaccination due to a previous episode in August 2024. Patient Instructions - Continue taking Jardiance 25 mg daily for diabetes management. - Schedule a follow-up blood test in three months to monitor diabetes and cholesterol levels. - Take Nexium as prescribed and eat slowly to prevent aspiration. - Plan for an upper endoscopy and colonoscopy as advised. - Consider receiving a shingles vaccination due to previous episode. Orders: Orders Complete Blood Count Auto Diff 2 Months . - Type 2 diabetes mellitus with hyperglycemia Free T4 (Free Thyroxine) 2 Months . - Type 2 diabetes mellitus with hyperglycemia Lipid Panel 2 Months . - Type 2 diabetes mellitus with hyperglycemia, E78.00 - Pure hypercholesterolemia, unspecified Vitamin B12 and Folate 2 Months . - Type 2 diabetes mellitus with hyperglycemia Prostate Specific Antigen Scr 2 Months E11. - Type 2 diabetes mellitus with hyperglycemia Reticulocyte Count 2 Months E11. - Type 2 diabetes mellitus with hyperglycemia IRON PROFILE 2 Months E11. - Type 2 diabetes mellitus with hyperglycemia Thyroid Stimulating Hormone 2 Months E11. - Type 2 diabetes mellitus with hyperglycemia Hemoglobin A1c 2 Months E11. - Type 2 diabetes mellitus with hyperglycemia Comprehensive Met. Panel 2 Months E11. - Type 2 diabetes mellitus with hyperglycemia Ferritin 2 Months E11. - Type 2 diabetes mellitus with hyperglycemia Creatinine Urine 2 Months E11. - Type 2 diabetes mellitus with hyperglycemia Microalbumin, Random (w Creat) 2 Months E11.65 - Type 2 diabetes mellitus with hyperglycemia
--- OUTSIDE RECORDS SUMMARY | 2025-06-28 12:02 | XMS_ITS | Clinical Summary ---
Author Organization 175 [facility] Address 175 [place] [address] Phone Care Team Providers Care Residential Lawn Specialist Name Role Phone Robert Sumner MD Primary Care Provider [phone] Allergies Active Allergy Reactions Criticality Noted Date Comments Sulfa (Sulfonamide Antibiotics) 12/11 Medications No known medications Encounters Date Type Department Care Team Description 06/14/2025 10:30 AM EDT Office Visit Orthopedic Surgery [facility] [address] [facility] [address] [place] [phone] Jose Bonds, DPM Arthritis of left [...] Upcoming Encounters Date Type Department Care Team ([facility] st Contact Info) Description 09/14/2025 10:15 AM EST Office Visit Orthopedic Surgery - [place] 250 175 [facility] 250 [place] [phone] Jose Bonds, DPM [address] [address] Health Maintenance Due Date Last Done Comments [...] Documents on File Type Date Recorded Patient Doctor Of Radiology Expl anation Health Care Decision (hx) 12/11/2020 AD VELASQUEZ DIRECTIVE Health Care Decision (hx) 12/11/2020 AD VELASQUEZ DIRECTIVE Health Care Decision (hx) 12/11/2020 AD VELASQUEZ DIRECTIVE Health Care Decision (hx) 12/11/2020 AD VELASQUEZ DIRECTIVE Care Teams Residential Lawn Specialist Relationship Specialty Start Date End Date Robert Sumner MD [address] [place] [address] [address] [facility] [place] [address] PCP - General Internal Medicine 09/24/24
--- OUTSIDE RECORDS SUMMARY | 2025-06-28 12:02 | XMS_ITS | Clinical Summary ---
Author Organization [facility] Address [address] [place] [phone] Phone Care Team Providers Care Climbing Guide Name Role Phone Robert Sumner MD Primary Care Provider [phone] Allergies Active Allergy Reactions Criticality Noted Date [...] Only [facility] [address] [phone] Chana Schrader ARNP Chronic kidney disease, stage [...] Visit [facility].. [address] [phone] Frantz Luis MD [address] [phone] Health Maintenance Due Date Last Done Comments [...] Medicaid [place] Care Teams Climbing Guide Relationship Specialty Start Date End Date Robert Sumner MD [address] [place] PCP - General 11/20/20
== END 2025-06-28 11:30 | disposition home or self-care (01) ==
LOC: HO.HMCH 10:35
PROVIDERS: PCP Internal Medicine; Visit Provider Internal Medicine
DX: E11.65 Type 2 diabetes mellitus with hyperglycemia (principal); E78.5 Hyperlipidemia, unspecified; I10 Essential (primary) hypertension; I48.92 Unspecified atrial flutter; K21.9 Gastro-esophageal reflux disease without esophagitis

== ENCOUNTER → 2025-06-28 10:34 | Outpatient (BNVA) | payer MEDICARE, MEDICAID, SELFPAY | PROVIDERS: PCP Internal Medicine; Visit Provider Internal Medicine | DX: E11.65 Type 2 diabetes mellitus with hyperglycemia (principal); E78.5 Hyperlipidemia, unspecified; I10 Essential (primary) hypertension; I48.92 Unspecified atrial flutter; K21.9 Gastro-esophageal reflux disease without esophagitis | CPT/HCPCS: 96127; 99212 ==

== ENCOUNTER 2025-06-29 09:55 | Outpatient (REF) | payer MEDICARE, MEDICAID, SELFPAY ==
--- OUTSIDE RECORDS SUMMARY | 2025-06-29 10:51 | XMS_ITS | Clinical Summary ---
Author Organization [facility] Address [address] [place] [phone] Phone Care Team Providers Care Reimbursement Counselor Name Role Phone Robert Sumner MD Primary Care Provider [phone] Allergies Active Allergy Reactions Criticality Noted Date [...] Only [facility] [address] [phone] Chana Schrader ARNP Chronic kidney disease, stage [...] [facility] P.. [address] [phone] Frantz Luis MD [address] [phone] Health Maintenance Due Date Last Done Comments [...] Medicaid [place] Medicare [place] Care Teams Reimbursement Counselor Relationship Specialty Start Date End Date Robert Sumner MD [address] [place] PCP - General 11/20/20
--- OUTSIDE RECORDS SUMMARY | 2025-06-29 10:51 | XMS_ITS | Clinical Summary ---
Author Organization 175 [facility] Address 175 [place] [address] Phone Care Team Providers Care Boat Engines Installer Name Role Phone Robert Sumner MD Primary Care Provider [phone] Allergies Active Allergy Reactions Criticality Noted Date Comments Sulfa (Sulfonamide Antibiotics) 12/11 Medications No known medications Encounters Date Type Department Care Team Description 06/14/2025 10:30 AM EDT Office Visit Orthopedic Surgery [facility] 250 175 [facility] [address] [place] [phone] Jose Bonds, DPM Arthritis of left [...] Upcoming Encounters Date Type Department Care Team ([facility] st Contact Info) Description 09/14/2025 10:15 AM EST Office Visit Orthopedic Surgery - [place] 250 175 [facility] [address] [place] [phone] Jose Bonds, DPM [address] [address] Health Maintenance Due Date Last Done Comments [...] Documents on File Type Date Recorded Patient Code Number Stamper Expl anation Health Care Decision (hx) 12/11/2020 AD VELASQUEZ DIRECTIVE Health Care Decision (hx) 12/11/2020 AD VELASQUEZ DIRECTIVE Health Care Decision (hx) 12/11/2020 AD VELASQUEZ DIRECTIVE Health Care Decision (hx) 12/11/2020 AD VELASQUEZ DIRECTIVE Care Teams Boat Engines Installer Relationship Specialty Start Date End Date Robert Sumner MD [address] [place] [address] [address] [facility] [place] [address] PCP - General Internal Medicine 09/24/24
[2025-06-29 14:51] LABS: Appearance Urine Clear; Glucose Urine UA >=1000 mg/dL (Negative); PH 6.0 (5.0-9.0); Specific Gravity - Urine >= 1.030 (1.005-1.025); UMIC TRIGGER UA YES
[2025-06-29 14:57] LABS: MANUAL DIFF FLAG NO
[2025-06-29 15:00] LABS: Hematocrit 38.9 % (42.0-52.0); Hemoglobin 12.9 g/dl (14.0-18.0); Imm Gran Abs Auto 0.10 X10*3/uL (0.00-0.03); Imm Gran Pct Auto 1.5 % (0.0-0.4); Lymphocytes Absolute Auto 1.4 X10*3/uL (1.2-4.9); Mean Corpuscular HGB Conc 33.2 g/dl (31.0-36.0); Mean Corpuscular Hemoglobin 31.1 pg (27.0-33.0); Mean Corpuscular Volume 93.7 fL (80.0-98.0); NRBC Abs Auto 0.000 X10*3/uL (0.0-0.012); NRBC Pct Auto 0.0 /100WBC (0.0-0.2); Platelet Count 128 X10*3/uL (160-400); Red Blood Count 4.15 X10*6/uL (4.60-5.80); White Blood Count 6.5 X10*3/uL (4.8-10.8)
[2025-06-29 15:53] LABS: Anion Gap 13 (12-20); Blood Urea Nitrogen 27 mg/dL (9-16); Calcium 8.7 mg/dL (8.4-10.2); Carbon Dioxide 27 mmol/L (22-29); Chloride 105 mmol/L (96-108); Estimated Glomerular Filt Rate > 60; Potassium 4.7 mmol/L (3.3-5.1); Sodium 140 mmol/L (135-145)
[2025-06-29 15:57] LABS: Parathyroid Hormone Intact 146.3 pg/mL (8.7-77.1)
[2025-06-29 16:18] LABS: Total Protein Urine Random < 7 mg/dL (<12)
== END 2025-06-29 09:56 | disposition home or self-care (01) ==
LOC: HO.HMGCLDS 09:55
PROVIDERS: PCP Internal Medicine; Visit Provider Internal Medicine Nephrology
DX: I12.9 Hypertensive chronic kidney disease with stage 1 through stage 4 chronic kidney disease, or unspecified chronic kidney disease (principal); N18.2 Chronic kidney disease, stage 2 (mild); E87.1 Hypo-osmolality and hyponatremia
CPT/HCPCS: 36415; 80051; 81001; 82043; 82310; 82565; 82570; 83970; 84156; 84520; 85025

== ENCOUNTER 2025-07-04 10:35 | Outpatient (AMB) | payer MEDICARE, MEDICAID, SELFPAY ==
--- NOTE | 2025-07-04 10:40 | MHC.OFFVIS ---
Vital Signs 07/04/25 10:41 Height 5 ft 5 in Weight 231 lb 14.821 oz BMI 38.6 BP 114/64 Blood Pressure Location Lt brachial Position Sitting Pulse 75 Pulse Source Pulse Oximeter Pulse Oximetry (%) 100 Oxygen Delivery Method Room Air Intake Visit Reasons: Hyperparathyroidism, unspecified Intake Note: Patient present today for Hyperparathyroidism, unspecified office visit. Cabinet Builder Required: No Accompanied by: PANEL MACHINE SETTER Allergies Sulfa (Sulfonamide Antibiotics) Allergy (Severe, Verified 07/04/25 10:45) CHAVEZ ALICIA REACTION trimethoprim Allergy (Mild, Verified 07/04/25 10:45) UNKNOWN lactose Adverse Reaction (Mild, Verified 07/04/25 10:45) STOMACH UPSET Medication List - Last Reconciled 07/04/25 by Umu Lockhart MD acetaminophen 650 mg (2 x 325 mg) PO Q4H PRN 90 days [Adult briefs As directed] albuterol sulfate 90 mcg/actuation 2 puffs inhalation Q6H PRN alum-mag hydroxide-simeth 400-400-40 mg/5 mL (Advanced Antacid-Antigas) 5 mL PO QID PRN [[id number] As directed] atorvastatin 10 mg PO BEDTIME [Bilateral custom AFO As directed] bisacodyl (Dulcolax (bisacodyl)) 10 mg (2 x 5 mg) PO BEDTIME blood sugar diagnostic (Zoomabet No Coding strips) As directed 2 times per day blood-glucose meter (Node1uch Ultra2 Meter) test once daily blood-glucose meter (Zoomabet Autocode Blood Glucose Monitoring System) As directed cefpodoxime 200 mg PO Q12H cholecalciferol (vitamin D3) 25 mcg PO DAILY clonidine HCl 0.1 mg PO BEDTIME [email or web address],knee,reg,xlrg As directed 15-20 mm HG cyanocobalamin (vitamin B-12) 1,000 mcg PO BEDTIME [DIABETIC SHOES/INSERTS As directed] divalproex ER 1,000 mg PO BID empagliflozin (Jardiance) 25 mg PO DAILY esomeprazole magnesium (Nexium) 40 mg PO BEDTIME ferrous sulfate 325 mg PO BID fexofenadine-pseudoephedrine 180-240 mg ER 1 tab PO QAM 10 days fluoride (sodium) 1.1% (PreviDent 5000 Booster Plus) 1 appl dental BID fluticasone furoate-vilanterol 200-25 mcg/dose (Breo Ellipta) 1 inh inhalation DAILY fluticasone propionate 50 mcg/actuation (Flonase Allergy Relief) 1 spray intranasal BID gabapentin (Neurontin) 300 mg PO BID [Heat Moldable shoe inserts As directed] hydralazine 50 mg PO TID ibuprofen 600 mg PO Q6H PRN lactase (Lactaid) 3,000 units PO TIDWM PRN lancets (Node1uch UltraSoft 2 Lancet) test once daily lancets (Prodigy Lancets) As directed check BS twice a day lancing device (Prodigy Lancing Device) As directed lisinopril 5 mg PO DAILY loperamide 2 mg PO Q8H PRN klqojvqm-fzaorptqwXg-dedkjlyxZ 3.5-400-5,000 vn-yneq-kgys (Triple Antibiotic) 1 appl topical BID polyethylene glycol 3350 (Miralax) 238 grams PO ONCE propranolol 20 mg PO TID@0800,1600,2000 90 days risperidone 3 mg PO BID starch (thickening) (Diafoods Thick-It oral powder) Add thick it powder to food and beverage using enclosed measuring spoon TID 30 days triamcinolone acetonide 0.1% dental [wheelchair cushion As directed] HPI Comments Details: 54-year-old male coming in today for initial evaluation of elevated PTH level. 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 Chart review shows patient has had Normal calcium levels ranging anywhere from 8.5-9.5 with a albumin mostly around 3.7, corrected calcium would be somewhere around 9-10. No elevated calcium levels in the chart. Most recent labs from 06/29/2025 showed normal kidney function with a EGFR greater than 60, calcium of 8.7, PTH level elevated at 146.3. Chart review also shows patient has had elevated PTH levels in the past all with normal calcium levels, a PTH level elevated at 167.3 back from August 2024 while vitamin-D was normal at 49.8. Calcium was normal at 8.9. Most recent vitamin-D level normal 39.8 from January 2025, with calcium of 9, phosphorus normal at 3.5, normal magnesium at 1.8. Kidney stones: per caregiver he has had kidney stones in the past ? No fractures, uses a walker. Dont have family history on him, patient might not be a reliable historian Vitamin D : 1000 units daily No calcium supplements no milk , some yogurt 1-2 times a week, cheese: doesnt do much , not much green leafy vegetables no HCTZ use , on PPI chronically On antiseziure meds, depakote somewhat incontinent for urine Physical exam General: sitting comfortably in no acute distress HEENT: normocephalic/atraumatic, Neck: supple, Cardiac: normal heart sounds Pulm: normal breath sounds B/L, no added breath sounds Abd: not distended, no tenderness Extremities: no edema, no signs of myxedema Laboratory Tests 12/05/18 12/10/19 06/21/21 09:00 10:32 16:48 Creatinine Estimated GFR Calcium 9.2 Phosphorus Magnesium Albumin 25-OH Vitamin D Total 27.3 36.0 PTH Intact 06/23/21 07/28/21 07/29/21 14:17 12:11 10:59 Creatinine Estimated GFR Calcium 9.6 9.0 D 9.5 Phosphorus Magnesium Albumin 25-OH Vitamin D Total PTH Intact 08/01/21 08/02/21 08/10/21 19:35 16:25 00:58 Creatinine Estimated GFR Calcium 9.1 9.8 D 8.5 D Phosphorus Magnesium Albumin 25-OH Vitamin D Total PTH Intact 08/13/21 08/14/21 08/17/21 15:13 23:52 01:22 Creatinine Estimated GFR Calcium 8.7 8.6 8.8 Phosphorus Magnesium Albumin 25-OH Vitamin D Total PTH Intact 10/02/21 10/09/21 10/26/21 15:47 17:13 15:04 Creatinine Estimated GFR Calcium 8.8 8.9 8.7 Phosphorus Magnesium Albumin 25-OH Vitamin D Total PTH Intact 10/27/21 11/20/21 01/21/22 15:44 11:20 14:34 Creatinine Estimated GFR Calcium 9.6 D 9.1 8.6 Phosphorus Magnesium Albumin 25-OH Vitamin D Total PTH Intact 04/11/22 06/28/22 07/16/22 14:23 00:43 13:26 Creatinine Estimated GFR Calcium 9.6 D 8.7 D 9.0 Phosphorus Magnesium Albumin 25-OH Vitamin D Total PTH Intact 10/11/22 11/19/22 03/05/23 14:40 15:17 19:56 Creatinine Estimated GFR Calcium 9.1 9.2 8.8 Phosphorus Magnesium Albumin 25-OH Vitamin D Total PTH Intact 05/13/23 06/10/23 06/15/23 15:31 19:07 00:00 Creatinine Estimated GFR Calcium 9.2 9.5 9.1 Phosphorus Magnesium Albumin 25-OH Vitamin D Total PTH Intact 06/15/23 07/11/23 07/12/23 16:15 21:10 16:43 Creatinine Estimated GFR Calcium 9.6 9.2 9.5 Phosphorus Magnesium Albumin 25-OH Vitamin D Total PTH Intact 07/29/23 07/30/23 08/01/23 22:02 01:53 10:31 Creatinine Estimated GFR Calcium 9.3 9.3 9.5 Phosphorus Magnesium Albumin 3.2 L 4.0 25-OH Vitamin D Total PTH Intact 09/30/23 10/13/23 10/13/23 18:49 12:29 16:43 Creatinine Estimated GFR Calcium 9.1 9.3 8.6 D Phosphorus Magnesium Albumin 3.7 3.6 25-OH Vitamin D Total PTH Intact 10/22/23 12/23/23 01/12/24 14:06 09:38 01:24 Creatinine Estimated GFR Calcium 9.1 8.8 9.0 Phosphorus Magnesium Albumin 3.6 3.6 3.2 L 25-OH Vitamin D Total 52.1 PTH Intact 134.8 H 01/14/24 08/18/24 09/18/24 22:27 12:05 09:20 Creatinine Estimated GFR Calcium 8.7 8.9 8.8 Phosphorus Magnesium Albumin 3.0 L 3.6 25-OH Vitamin D Total 49.8 56.0 PTH Intact 167.3 H 09/18/24 12/21/24 12/27/24 09:20 09:41 01:28 Creatinine Estimated GFR Calcium 8.9 9.1 Phosphorus Magnesium Albumin 3.8 3.7 25-OH Vitamin D Total PTH Intact 114.4 H 01/04/25 01/13/25 06/29/25 23:15 08:58 10:02 Creatinine 1.09 Estimated GFR > 60 Calcium 8.7 9.0 8.7 Phosphorus 3.5 Magnesium 1.8 Albumin 3.5 25-OH Vitamin D Total 39.8 PTH Intact 146.3 H [facility] Medical History Feeling suicidal Tinea cruris Leg swelling Atrial flutter Atrial fib/flutter, transient A-fib Arrhythmia Abnormal EKG Contusion of left ankle Annual physical exam Abdominal pain Back pain Positive colorectal cancer screening using Cologuard test Precordial chest pain Hospital discharge follow-up Chest pain Right ankle pain Musculoskeletal chest pain Left-sided chest pain Back pain Fall Dysphagia Acute kidney injury Gait instability Suicidal ideation COVID-19 Hypomagnesemia Diarrhea Abdominal pain Ankle pain, left Left ankle sprain Seizure disorder Hypertension Anxiety Hyponatremia Cerebellar ataxia Anemia Lactose intolerance Vertigo Asthma Mental disability Type 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 Proteinuria Hyperlipidemia LDL goal <100 Essential hypertension Surgical History Hx of surgical procedure (07/22/24) Hx of colonoscopy History of orchiectomy Family History Father Myocardial infarction CVD (cardiovascular disease) Diabetes mellitus Mother Diabetes mellitus HTN (hypertension) Brother In good health Sister In good health Social History Household Members: Other Household Members Other:: from longterm Housing: House Housing Other:: longterm [facility] [address] Esteban [phone] Do you presently have visiting nurse or other home services: Yes 75 years or older and lives alone: No Unable to assess alcohol history related to: Unknown Alcohol intake: former 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 Patient Tobacco Use Status: Never used Tobacco Tobacco use type: Cigarette e-Cigarette/Vaping Use: Never Used Second Hand Smoke Exposure: No Advance Directives Date on File: 03/07/21 service: No Current occupational status: disabled Cognitive needs: Yes (walker) Hearing needs: No Vision needs: Yes (glasses) Assessment & Plan Assessment & Plan (1) Hyperparathyroidism: Code(s): E21.3 - Hyperparathyroidism, unspecified Category: Medical Plan: 54-year-old male coming in today for initial evaluation of elevated PTH level. Chart review shows patient has had Normal calcium levels ranging anywhere from 8.5-9.5 with a albumin mostly around 3.7, corrected calcium would be somewhere around 9-10. No elevated calcium levels in the chart. Most recent labs from 06/29/2025 showed normal kidney function with a EGFR greater than 60, calcium of 8.7, PTH level elevated at 146.3. Chart review also shows patient has had elevated PTH levels in the past all with normal calcium levels, a PTH level elevated at 167.3 back from August 2024 while vitamin-D was normal at 49.8. Calcium was normal at 8.9. Most recent vitamin-D level normal 39.8 from January 2025, with calcium of 9, phosphorus normal at 3.5, normal magnesium at 1.8. There could possibly be some history of kidney stones, however no known history of osteoporosis or fractures. He is incontinent of his urine on some occasions so would be difficult to do a 24 hour urine calcium evaluation to check for hypercalciuria. However his calcium levels are not elevated, which makes you think about secondary hyperparathyroidism. Vitamin-D levels are good, kidney function is normal so it is not because of those reasons. However a lot of these patients have poor nutritional intake of calcium. Based on my history he is barely taking any calcium in his diet that could be the reason 1st PTH elevation. Before we jump to doing further workup, I would like him to increase his nutritional intake of calcium. He is lactose intolerant but he can drink Lactaid milk. Advised him to take 2 cups of Lactaid milk every day. Start calcium 600 mg daily after 8 weeks of doing this we will plan to repeat blood work to see if PTH levels come down. I have also had some recently elevated PTH levels of the [facility] due to variations in the assay, I would like to see repeat blood work at [facility]. Plan: -increase nutritional intake of calcium to 2 cups of milk daily -start calcium carbonate 600 mg daily -after 8 weeks of doing the above due blood work and urine calcium and urine creatinine at [facility], papers given -follow up in 9 weeks to discuss results Plan I spent 45 minutes in reviewing the record, seeing the patient and documenting in the medical record. Orders: Orders Albumin Level 8 Weeks E21.3 - Hyperparathyroidism, unspecified Parathyroid Hormone Intact 8 Weeks E21.3 - Hyperparathyroidism, unspecified Creatinine 8 Weeks E21.3 - Hyperparathyroidism, unspecified Calcium 8 Weeks E21.3 - Hyperparathyroidism, unspecified Calcium, Ionized 8 Weeks E21.3 - Hyperparathyroidism, unspecified Creatinine Urine 8 Weeks E21.3 - Hyperparathyroidism, unspecified Calcium, Random Urine 8 Weeks E21.3 - Hyperparathyroidism, unspecified Vitamin D 25-OH Total 8 Weeks E21.3 - Hyperparathyroidism, unspecified Medications: New calcium carbonate 600 mg PO DAILY 30 tabs 4RF Patient Instructions: start calcium 600 mg daily Start drinking 2 cups of lactaid milk daily Repeat blood work and urine test in 8 weeks at [facility] [address] [place] [address], please make sure they fax the results to me Coding Level of Care Code New Pt Level 4 (64318) Diagnoses Hyperparathyroidism E21.3 Time Spent (min) 45
[2025-07-04 10:41] VITALS: BP 114/64; PULSE 75; O2SAT 100; BMI 38.6
--- OUTSIDE RECORDS SUMMARY | 2025-07-04 11:50 | XMS_ITS | Clinical Summary ---
Author Organization [facility] Address [address] [place] [phone] Phone Care Team Providers Care Turkey Roll Maker Name Role Phone Robert Sumner MD Primary [...] Only [facility] [address] [phone] Chana Schrader ARNP Chronic kidney disease, stage [...] Visit [facility] [address] [phone] Frantz Luis MD [address] [phone] Health Maintenance Due Date Last Done Comments [...] Foot Exam 10/23/2023 Influenza Vaccine (#1) 2025 Procedures Procedure Name Priority Date/Time Associated Diagnosis Comments PTH, INTACT (HC) Routine 06/29/2025 2:46 PM EDT CALCIUM Routine 06/29/2025 2:46 PM EDT CREATININE, BLOOD Routine 06/29/2025 2:4 6 PM EDT BUN Routine 06/29/2025 2:46 PM EDT ELECTROLYTE PANEL Routine 06/29/2025 2:4 6 PM EDT CBC AND DIFFERENTIAL Routine 06/29/2025 2:46 PM EDT ALBUMIN, URINE, RANDOM Routine 06/29/2025 2:33 PM EDT URINALYSIS WITH MICROSCOPIC Routine 06/29/2025 2:33 PM EDT Chronic kidney disease, stage 2 (mild) Hyponatremia Hypertension PROTEIN / CREATININE RATIO, URINE Routine 06/29/2025 2:33 PM EDT Chronic kidney disease, stage 2 (mild) Hyponatremia Hypertension from Last 3 Months Results * Creatinine (06/29/2025 2:46 PM EDT) Creatinine Serum 1.09 0.5 - 1.4 mg/dL See order comments eGFR (Calc) >60 See orde r comments Comment: Chronic Kidney Disease: Estimated GFR < 60 mL/min/1.73m2 Severe Kidney Disease: Estimated GFR < 15 mL/min/1.73m2 06/29/2025 2:46 PM EDT 06/29/2025 2:46 PM EDT Chana [facility] LAB BLOOD ORDERABLES Final Result [place] See order comments [place] [address] * (ABNORMAL) PTH, Intact (06/29/2025 2:46 PM EDT) Parathyroid Hormone, Intact 146.3(H) 8.7 - 77.1 pg/mL See order comments 06/29/2025 2:46 PM EDT 06/29/2025 2:46 PM EDT Chana Schrader [facility] LAB HISTORICAL-CONVERSIONS- UNSOLICITED RESULTS Final Result [place] See order comments [place] [address] * (ABNORMAL) CBC and Differential (06/29/2025 2:46 PM EDT) WBC 6.5 4.8 - 10.8 X10*3/uL See order comments RBC 4.15(L) 4.60 - 5.80 X10*6/uL See order comments Hgb 12.9(L) 14.0 - 18.0 g/dl See order comments Hematocrit 38.9(L) 42.0 - 52.0 % See order comments MCV 93.7 80.0 - 98.0 fL See order comments MCH 31.1 27.0 - 33.0 pg See order comments MCHC 33.2 31.0 - 36.0 g/dl See order comments RDW 12.2 11.0 - 16.0 % See order comments Platelets 128(L) 160 - 400 X10*3/uL See order comments MPV 9.9 9.4 - 12.4 fL See order comments Neutrophils % Auto 69.9 45 - 73 % See order comments Immature Granulocytes 1.5(H) 0.0 - 0.4 % See order comments Lymphocytes Relative 21.0 20 - 40 % See order comments Monocytes 6.5 2 - 11 % See order comments Eosinophils Relative 0.5 0 - 4 % See order comments Basophils Relative 0.6 0 - 2 % See order comments nRBC Count 0.0 0.0 - 0.2 /100WBC See order comments Neutrophils Absolute 4.5 2.0 - 8.3 x10*3/uL See order comments Immature Grans (Absolute) 0.10(H) 0.00 - 0.03 X10*3/uL See order comments Lymphocytes Absolute 1.4 1.2 - 4.9 X10*3/uL See order comments Monocytes Absolute 0.4 0.1 - 1.2 X10*3/uL See order comments Eosinophils Absolute 0.0 0.0 - 0.4 X10*3/uL See order comments Basophils Absolute 0.0 0.0 - 0.2 X10*3/uL See order comments NRBC Absolute 0.000 0.0 - 0.012 X10*3/uL See order comments 06/29/2025 2:46 PM EDT 06/29/2025 2:46 PM EDT [facility] BLOOD ORDERABLES Final Result Performing Organization Address [facility] de Phone Number [facility] See order comments [place] [address] * (ABNORMAL) BUN (06/29/2025 2:46 PM EDT) BUN 27(H) 9 - 16 mg/dL See order comments 06/29/2025 2:46 PM EDT 06/29/2025 2:46 PM EDT Chana Schrader [facility] BLOOD ORDERABLES Final Result Performing Organization Address [facility] de Phone Number [place] See order comments [place] [address] * Calcium (06/29/2025 2:46 PM EDT) Calcium 8.7 8.4 - 10.2 mg/dL See order comments 06/29/2025 2:46 PM EDT 06/29/2025 2:46 PM EDT [facility] BLOOD ORDERABLES Final Result Performing Organization Address [facility] de Phone Number [place] See order comments [place] [address] * Electrolyte panel (06/29/2025 2:46 PM EDT) Sodium 140 135 - 145 mmol/L See order comments Potassium 4.7 3.3 - 5.1 mmol/L See order comments Chloride 105 96 - 108 mmol/L See order comments Bicarbonate (CO2) 27 22 - 29 mmol/L See order comments Anion Gap 13 12 - 20 See order comments 06/29/2025 2:46 PM EDT 06/29/2025 2:46 PM EDT [facility] Final Result Performing Organization Address [facility] de Phone Number [facility] See order comments [place] [address] * Urine Protein / creatinine ratio (06/29/2025 2:33 PM EDT) Protein Urine Random <7 <12 mg/dL See order comments Protein/Creatin ine Ratio, Urine TNP <0.2 See order comments Comment: Unable to calculate urine protein creatinine ratio due to low creatinine or protein result. Urine specimen (specimen) Urine specimen obtained by clean catch procedure / Unknown 06/29/2025 2:33 PM EDT 06/29/2025 2:33 PM EDT Result [facility] URINE ORDER[facility]LES Final Result Performing Organization Address [facility] Phone Number [place] See order comments [place] [address] * Albumin, urine, random (06/29/2025 2:33 PM EDT) Creatinine, Urine 53.59 mg/dL Se e order comments Urine Microalbumin <5.0 mg/L See order comments Microalbumin/Crea tinine Ratio TNP <30 ug/mg cr See order comments Comment: Unable to calculate albumin/creatinine ratio due to low microalbumin or creatinine result. 06/29/2025 2:33 PM EDT 06/29/2025 2:33 PM EDT Result [facility] Chana Schrader [facility] URINE ORDERABLES Final Result Performing Organization Address [facility] de Phone Number [place] See order comments [place] [address] * (ABNORMAL) Urinalysis with microscopic (06/29/2025 2:33 PM EDT) Color Urine Yellow See orde r comments Appearance Urine Clear See order comments pH Urine 6.0 5.0 - 9.0 See order comments Glucose Urine >=1000(A) Negative mg/dL See order comments Blood, Urine Negative Negative See ord er comments Specific Celina Urine >=1.030(H) 1.005 - 1.025 See order comments Protein Urine Negative Neg-Trace mg/dL See order comments Ketones, Urine Trace Negative mg/dL See order comments Nitrite, Urine Negative Negative See o rder comments Leukocyte Esterase Urine Negative Negative See order comments RBC, Urine 0-2 0 - 2 /HPF See orde r comments WBC 0-5 0 - 5 /HPF See order comments Squamous Epithelial, Urine 0-2 0 - 2 /HPF See order comments Bacteria, Urine None Seen None Seen See order comments Hyaline Casts, Urine 3-5 0 - 2 /LPF See order comments Urine specimen (specimen) Urine specimen obtained by clean catch procedure / Unknown 06/29/2025 2:33 PM EDT 06/29/2025 2:33 PM EDT [facility] LAB URINE ORDERABLES Final Result [place] See order comments [place] [address] from Last 3 Months Insurance Medicare Medicaid [place] Medicare Medicaid [place] Care Teams Turkey Roll Maker Relationship Specialty Start Date End Date Robert Sumner MD [address] [place], [place] PCP - General 11/20/20
--- OUTSIDE RECORDS SUMMARY | 2025-07-04 11:50 | XMS_ITS | Clinical Summary ---
Author Organization [address] [facility] Address [address] [place] [address] Phone Care Team Providers Care Professor Of Chemistry Name Role Phone Rboert Sumner MD Primary Care Provider [phone] Allergies Active Allergy Reactions Criticality Noted Date Comments Sulfa (Sulfonamide Antibiotics) 12/11 Medications No known medications Encounters Date Type Department Care Team Description 06/14/2025 10:30 AM EDT Office Visit Orthopedic Surgery [facility] [address] [facility] [address] [place] [phone] Jose Bonds, DPM Arthritis of left [...] Upcoming Encounters Date Type Department Care Team ([facility] st Contact Info) Description 09/14/2025 10:15 AM EST Office Visit Orthopedic Surgery - [place] [address] [facility] [address] [place] [phone] Jose Bonds, DPM [address] [address] Health Maintenance Due Date Last Done Comments [...] Documents on File Type Date Recorded Patient Apron Worker Expl anation Health Care Decision (hx) 12/11/2020 AD VELASQUEZ DIRECTIVE Health Care Decision (hx) 12/11/2020 AD VELASQUEZ DIRECTIVE Health Care Decision (hx) 12/11/2020 AD VELASQUEZ DIRECTIVE Health Care Decision (hx) 12/11/2020 AD VELASQUEZ DIRECTIVE Care Teams Professor Of Chemistry Relationship Specialty Start Date End Date Robert Sumner MD [address] [place] [address] [address] [facility] [place] [id number] PCP - General Internal Medicine 09/24/24
== END 2025-07-04 11:26 | disposition home or self-care (01) ==
LOC: HO.ENCR 10:38
PROVIDERS: PCP Internal Medicine; Visit Provider Student in an Organized Health Care Education/Training Program
DX: E21.3 Hyperparathyroidism, unspecified (principal)
CPT/HCPCS: 99204

== ENCOUNTER → 2025-07-04 10:35 | Outpatient (BNVA) | payer MEDICARE, MEDICAID, SELFPAY | PROVIDERS: PCP Internal Medicine; Visit Provider Student in an Organized Health Care Education/Training Program | DX: E21.3 Hyperparathyroidism, unspecified (principal) | CPT/HCPCS: 99202 ==

== ENCOUNTER 2025-07-13 11:30 | Outpatient (AMB) | payer MEDICARE, MEDICAID, SELFPAY ==
--- NOTE | 2025-07-13 11:32 | A.OFFVIS_ITS ---
Vital Signs 07/13/25 11:36 Height 5 ft 5 in Weight 231 lb 2 oz BMI 38.5 BP 110/68 Blood Pressure Location Rt brachial Position Sitting Pulse 68 Pulse Source Pulse Oximeter Pulse Oximetry (%) 100 Oxygen Delivery Method Room Air Intake Visit Reasons: INP-Hereditary Ataxia Intake Note: Cerebral Ataxia Chair Post Machine Operator Required: No Accompanied by: Staff - Marisabel Allergies Sulfa (Sulfonamide Antibiotics) Allergy (Severe, Verified 07/13/25 11:33) CHAVEZ ALICIA REACTION trimethoprim Allergy (Mild, Verified 07/13/25 11:33) UNKNOWN lactose Adverse Reaction (Mild, Verified 07/13/25 11:33) STOMACH UPSET HPI Comments Details: 54y/o male with developmental delay , cerebral palsy ? cerebellar ataxia comes for neurological assessment .He is accompanied by his [facility] staff who is not familiar with his full medical history Neurology ref mentions loss of consciousness- but the staff denied any loss of consciousness. He sees a psychiatrist and a therapist for behavior issues.He says he feels like hitting himself or somebody He goes to a day program 3 times a week. He needs help with some ADLs. [facility] Medical History Feeling suicidal Tinea cruris Leg swelling Atrial flutter Atrial fib/flutter, transient A-fib Arrhythmia Abnormal EKG Contusion of left ankle Annual physical exam Abdominal pain Back pain Positive colorectal cancer screening using Cologuard test Precordial chest pain Hospital discharge follow-up Chest pain Right ankle pain Musculoskeletal chest pain Left-sided chest pain Back pain Fall Dysphagia Acute kidney injury Gait instability Suicidal ideation COVID-19 Hypomagnesemia Diarrhea Abdominal pain Ankle pain, left Left ankle sprain Seizure disorder Hypertension Anxiety Hyponatremia Cerebellar ataxia Anemia Lactose intolerance Vertigo Asthma Mental disability Type 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 Proteinuria Hyperlipidemia LDL goal <100 Essential hypertension Surgical History Hx of surgical procedure (07/22/24) Hx of colonoscopy History of orchiectomy Family History Father Myocardial infarction CVD (cardiovascular disease) Diabetes mellitus Mother Diabetes mellitus HTN (hypertension) Brother In good health Sister In good health Social History Household Members: Other Household Members Other:: from [facility] Housing: House Housing Other:: [facility] Servicejeff Esteban [phone] Do you presently have visiting nurse or other home services: Yes 75 years or older and lives alone: No Unable to assess alcohol history related to: Unknown Alcohol intake: former 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 Patient Tobacco Use Status: Never used Tobacco Tobacco use type: Cigarette e-Cigarette/Vaping Use: Never Used Second Hand Smoke Exposure: No Advance Directives Date on File: 03/07/21 service: No Current occupational status: disabled Cognitive needs: Yes (walker) Hearing needs: No Vision needs: Yes (glasses) Physical Exam Vital Signs: Last Vital Signs Pulse 68 07/13/25 11:36 BP 110/68 07/13/25 11:36 Pulse Ox 100 07/13/25 11:36 Oxygen Delivery Method Room Air 07/13/25 11:36 BMI result Body Mass Index 38.5 Const Orientation/consciousness: oriented to person Eyes Pupils: Equal, round and reactive pupils present Neuro Other: right eye externally rotated ANtecollis wide based gait Mild weakness and increased tone in son LE General: oriented to person and moves all extremities Cranial nerves: Yes Facial sensation intact/muscles of mastication intact, Yes Equal, round and reactive pupils present, Yes Nystagmus not present, Yes Normal facial strength present, Yes Midline tongue present and Yes Ability to son aterally elevate shoulders present Gait exam (Neuro): Ataxic gait present Deep tendon reflexes (DTR's): Right triceps reflex intensity grade: 1+, Left t riceps reflex intensity grade: 1+, Rt Biceps (C5, C6): 1+, Left biceps reflex intensity grade: 1+, Right brachioradialis reflex intensity grade: 1+, Left brachioradialis reflex intensity grade: 1+, Right patellar reflex intensity grade: 0 and Left patellar reflex intensity grade: 0 Coordination: [id number] test normal Assessment & Plan Assessment & Plan (1) Cognitive developmental delay: Code(s): F81.9 - Developmental disorder of scholastic skills, unspecified Category: Medical (2) Cerebellar ataxia: Code(s): G11.9 - Hereditary ataxia, unspecified Category: Medical Plan Continue f/u with psychiatry for behavior issues and psychosis Continue physical therapy No acute neurological intervention needed at this time Coding Level of Care Code New Pt Level 4 (31066) Diagnoses Cognitive developmental delay F81.9 Cerebellar ataxia G11.9
[2025-07-13 11:36] VITALS: BP 110/68; PULSE 68; O2SAT 100; BMI 38.5
== END 2025-07-13 12:08 | disposition home or self-care (01) ==
LOC: HO.HSMS 11:31
PROVIDERS: PCP Internal Medicine; Visit Provider Psychiatry & Neurology Neurology
DX: F81.9 Developmental disorder of scholastic skills, unspecified (principal); G11.9 Hereditary ataxia, unspecified
CPT/HCPCS: 99204

== ENCOUNTER → 2025-07-13 11:30 | Outpatient (BNVA) | payer MEDICARE, MEDICAID, SELFPAY | PROVIDERS: PCP Internal Medicine; Visit Provider Psychiatry & Neurology Neurology | DX: G11.9 Hereditary ataxia, unspecified (principal); F81.9 Developmental disorder of scholastic skills, unspecified | CPT/HCPCS: 99202 ==

== ENCOUNTER → 2025-08-08 11:04 | Day surgery (SDC) | payer MEDICARE, MEDICAID, SELFPAY ==
--- OUTSIDE RECORDS SUMMARY | 2025-08-01 06:56 | XMS_ITS | Clinical Summary ---
Author Organization [facility] Address [address] [place] [phone] Phone Care Team Providers Care Mint Machine Operator Name Role Phone Robert Sumner MD Primary Care Provider [phone] Allergies Active Allergy Reactions Criticality Noted Date Comments Lactose 04/26/2022 intolerance Sulfa Antibiotics Other (see comments),Hives Medications albuterol HFA (Ventolin HFA) 108 (90 Base) MCG/ACT inhaler Active atorvastatin (LIPITOR) 10 MG tablet Take [...] mouth 2 (two) times a day Active gabapentin [...] nostril 1 (one) time each day Active Jardiance 25 MG tablet 02/12/20 24 Active loperamide (IMODIUM) 2 MG capsule 12/05/19 24 Active esomeprazole (NexIUM) [address] capsule Take 40 mg by mouth 1 (one) time each day before breakfast 05/03/20 24 Active lisinopril 5 MG tablet Take 5 mg by mouth 1 (one) time each day 06/30/20 25 Active Breo Ellipta 200-25 MCG/ACT aerosol powder 07/01/20 25 Active hydrALAZINE 50 MG tablet Take 1 tablet (50 mg total) by mouth in the morning and 1 tablet (50 mg total) in the evening and 1 tablet (50 mg total) before bedtime. 07/05/20 25 Active acetaminophen (TYLENOL 8 HOUR) 650 MG 8 hr tablet Take 1 tablet by mouth every 4 (four) hours 025 Discontinued aspirin (ST DARWIN) 81 MG EC tablet Take 1 tablet by mouth 1 (one) time each day 025 Discontinued fluticasone-sa lmeterol (Advair Diskus) 250-50 MCG/DOSE diskus inhaler Inhale 1 puff 2 (two) times a day 025 Discontinued hydrALAZINE (APRESOLINE) 50 MG tablet Take 1 tablet by mouth 2 (two) times a day 025 Discontinued simethicone (MYLICON) 125 MG chewable tablet Chew 125 mg every 6 (six) hours if needed for flatulence 025 Discontinued Sodium Fluoride (PREVIDENT 5000 BOOSTER PLUS DT) Apply to teeth twice a day 025 Discontinued hydrOXYzine (VISTARIL) 50 MG capsule 11/26/19 24 025 Discontinued cloNIDine (CATAPRES) 0.1 MG tablet Take 0.1 mg by mouth in the morning and 0.1 mg in the evening. 025 Discontinued Active Problems Problem Noted Date Diagnosed Date [...] Encounters Date Type Department Care Team Description 07/05/2025 1:30 PM EDT Office Visit [facility] [address] [phone] Frantz Luis MD Chronic kidney disease, stage 2 (mild) (Primary Dx); Hypertension 06/05/2025 Orders Only [facility] [address] [phone] Chana Schrader ARNP Chronic kidney disease, stage [...] Sign Reading Time Taken Comments Blood Pressure 128/74 07/05/2025 1:25 PM EDT Pulse 71 07/05/2025 1:25 PM EDT Temperature - - Respiratory Rate - - Oxygen Saturation 99% 07/05/2025 1:25 PM EDT Inhaled Oxygen Concentration - - Weight 106 kg (233 lb 3.2 oz) 07/05/2025 1:25 PM EDT Height 165.1 cm (5' 5 ) 05/31/2024 3:28 PM EDT Body Mass Index 38.81 05/31/2024 3:28 PM EDT Plan of Treatment Upcoming Encounters Date Type Department Care Team (Late st Contact Info) Description 01/05/2026 1:15 PM EST Office Visit [facility] [address] [phone] Chana Schrader ARNP [address] [phone] Health Maintenance Due Date Last [...] 2:46 PM EDT 06/29/2025 2:46 PM EDT [facility] LAB BLOOD ORDERABLES Final Result Performing Organization Address [facility] Co de Phone Number [place] See order comments [place] [address] * (ABNORMAL) PTH, Intact (06/29/2025 2:46 PM EDT) Pathologist [facility] Parathyroid Hormone, Intact 146.3(H) 8.7 - 77.1 pg/mL See order comments 06/29/2025 2:46 PM EDT 06/29/2025 2:46 PM EDT [facility] LAB HISTORICAL-CONVERSIONS- UNSOLICITED RESULTS Final Result Performing Organization Address [facility] Co de Phone Number [place] See order comments [place] [address] * (ABNORMAL) CBC and Differential (06/29/2025 2:46 [...] 2:46 PM EDT 06/29/2025 2:46 PM EDT [facility] LAB BLOOD ORDERABLES Final Result [place] See order comments [place] [address] * (ABNORMAL) BUN (06/29/2025 2:46 PM EDT) BUN 27(H) 9 - 16 mg/dL See order comments 06/29/2025 2:46 PM EDT 06/29/2025 2:46 PM EDT [facility] LAB BLOOD ORDERABLES Final Result Performing Organization Address [facility] de Phone Number [place] See order comments [place] [address] * Calcium (06/29/2025 2:46 PM EDT) Calcium 8.7 8.4 - 10.2 mg/dL See order comments 06/29/2025 2:46 PM EDT 06/29/2025 2:46 PM EDT [facility] LAB BLOOD ORDERABLES Final Result Performing Organization Address [facility] de Phone Number [place] See order comments [place] [address] * Electrolyte panel (06/29/2025 2:46 PM EDT) Sodium 140 135 - 145 mmol/L See order comments Potassium 4.7 3.3 - 5.1 mmol/L See order comments Chloride 105 96 - 108 mmol/L See order comments Bicarbonate (CO2) 27 22 - 29 mmol/L See order comments Anion Gap 13 12 - 20 See order comments 06/29/2025 2:46 PM EDT 06/29/2025 2:46 PM EDT [facility] LAB BLOOD ORDERABLES Final Result Performing Organization Address [facility] Phone Number [place] See order comments [place] [address] * Urine Protein / creatinine ratio (06/29/2025 2:33 PM EDT) Pathologist [facility] Protein Urine Random <7 <12 mg/dL See order comments Protein/Creatin ine Ratio, Urine TNP <0.2 See order comments Comment: Unable to calculate urine protein creatinine ratio due to low creatinine or protein result. Urine specimen (specimen) Urine specimen obtained by clean catch procedure / Unknown 06/29/2025 2:33 PM EDT 06/29/2025 2:33 PM EDT [facility] LAB URINE ORDERABLES Final Result Performing Organization Address [facility]/ZIP Co de Phone Number [place] See order comments [place] [address] * Albumin, urine, random (06/29/2025 2:33 PM EDT) Creatinine, Urine 53.59 mg/dL Se e order comments Urine Microalbumin <5.0 mg/L See order comments Microalbumin/Crea tinine Ratio TNP <30 ug/mg cr See order comments Comment: Unable to calculate albumin/creatinine ratio due to low microalbumin or creatinine result. 06/29/2025 2:33 PM EDT 06/29/2025 2:33 PM EDT Chana Schrader [facility] LAB URINE ORDERABLES Final Result Performing Organization Address [facility] de Phone Number [place] See order comments [place] [address] * (ABNORMAL) Urinalysis with microscopic (06/29/2025 2:33 PM EDT) Color Urine Yellow See orde r comments Appearance Urine Clear See order comments pH Urine 6.0 5.0 - 9.0 See order comments Glucose Urine >=1000(A) Negative mg/dL See order comments Blood, Urine Negative Negative See ord er comments Specific [place] Urine >=1.030(H) 1.005 - 1.025 See order [...] 2:33 PM EDT 06/29/2025 2:33 PM EDT [employer] [facility] LAB URINE ORDERABLES Final Result [place] See order comments [place] [address] from Last 3 Months Insurance Medicare Medicaid [place] Medicare Medicaid [place] Care Teams Mint Machine Operator Relationship Specialty Start Date End Date Robert Sumner MD [address] [place], [place] PCP - General 11/20/20
--- OUTSIDE RECORDS SUMMARY | 2025-08-01 06:56 | XMS_ITS | Clinical Summary ---
Author Organization [address] [facility] Address [address] [place] [address] Phone Care Team Providers Care Mobile Ui/Ux Designer Name Role Phone Robert Sumner MD Primary Care Provider [phone] Allergies Active Allergy Reactions Criticality Noted Date Comments Sulfa (Sulfonamide Antibiotics) 12/11 Medications No known medications Encounters Date Type Department Care Team Description 06/14/2025 10:30 AM EDT Office Visit Orthopedic [facility] [address] [facility] [address] [place] [phone] Jose Bonds, DPM Arthritis of left [...] Upcoming Encounters Date Type Department Care Team ([facility] st Contact Info) Description 09/14/2025 10:15 AM EST Office Visit Orthopedic Surgery - [place] [address] [facility] [address] [place] [address] Jose Bonds, DPM [address] [facility] [address] [place] [address] Health Maintenance Due Date Last Done Comments [...] 10/12/2022 Social Influencers of Health Screening 10/12/2022 Colorectal Cancer Screening: FIT-DNA (Cologuard) 10/02/2024 10/02/2021 Depression Screening 11/10/2024 Diabetes: Annual Urine Albumin-Creatinine Ratio (uACR) 12/29/2024 Diabetes: Blood Sugar Control Test (HGBA1C) 12/29/2024 Hypertension/CHF/CAD Annual BMP Blood Test 12/29/2024 COVID-19 Vaccine ( season) 2025 10/30/2021, 01/15/2021, 12/25/2020 Influenza Vaccine (#1) 2025 , 08/25/2023, 08/31/2021, Additional history exists HIB Vaccines [...] Documents on File Type Date Recorded Patient Nursery Manager Expl anation Health Care Decision (hx) 12/11/2020 AD VELASQUEZ DIRECTIVE Health Care Decision (hx) 12/11/2020 AD VELASQUEZ DIRECTIVE Health Care Decision (hx) 12/11/2020 AD VELASQUEZ DIRECTIVE Health Care Decision (hx) 12/11/2020 AD VELASQUEZ DIRECTIVE Care Teams Mobile Ui/Ux Designer Relationship Specialty Start Date End Date Robert Sumner MD [address] [place] [address] [address] [facility] [place] [address] PCP - General Internal Medicine 09/24/24
--- NOTE | 2025-08-04 10:40 | HO.ANESPROP2 ---
HPI - Anesthesia Eval Consult details Narrative: 54 yr old male for upper endoscopy and colonoscopy Cerebellar ataxia/?cerebral palsy: has developmental delay, ataxic gait; saw [facility] neuro 07/2025, advised to follow up with psychiatry for behavioral issues/psychosis H/O schizophrenia: reported wanting to hit himself or others at neurology visit at [facility] 07/2025 Type 2 DM: A1C 7.1% Anesthesia Pre-Procedure Meds Is the patient on any of the following meds?: SGLT2 Inhib PMFSH Active Problems Active Problems: All Active Problems Hyperparathyroidism (Acute) Left otitis media (Acute) Medicare annual wellness visit, subsequent (Acute) URI, acute (Acute) Loss of consciousness (Acute) Feeling suicidal (Acute) Bilateral lower extremity edema (Acute) Cough (Acute) Herpes zoster (Acute) Postop check (Acute) Right shoulder pain (Acute) Sebaceous cyst (Acute) Toe pain, right (Acute) Benign positional vertigo (Acute) Hematoma (Acute) Dysphagia (Acute) Pneumonia (Acute) Lower extremity numbness (Acute) Lower extremity weakness (Acute) Urinary incontinence (Acute) Rectal incontinence (Acute) RSV (acute bronchiolitis due to respiratory syncytial virus) (Acute) Leg swelling (Acute) Renal insufficiency (Acute) Cognitive developmental delay (Acute) Peripheral vascular disease (Acute) Hyponatremia (Acute) Type 2 diabetes mellitus with hyperglycemia (Acute) Schizophrenia (Acute) Helicobacter pylori (H. pylori) infection (Acute) Auditory hallucinations (Acute) Mental and behavioral problem (Acute) Pancytopenia (Acute) GERD (gastroesophageal reflux disease) (Acute) Atrial flutter (Acute) Back pain (Acute) Ankle pain, left (Acute) Annual physical exam (Acute) Dysphagia (Acute) Asthma (Acute) Cerebellar ataxia (Acute) Right ankle pain (Acute) Hyponatremia (Acute) Type 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 (Acute) Proteinuria (Acute) Hyperlipidemia LDL goal <100 (Acute) Essential hypertension (Acute) Past Medical History Medical History Feeling suicidal Tinea cruris Leg swelling Atrial flutter Atrial fib/flutter, transient A-fib Arrhythmia Abnormal EKG Contusion of left ankle Annual physical exam Abdominal pain Back pain Positive colorectal cancer screening using Cologuard test Precordial chest pain Hospital discharge follow-up Chest pain Right ankle pain Musculoskeletal chest pain Left-sided chest pain Back pain Fall Dysphagia Acute kidney injury Gait instability Suicidal ideation COVID-19 Hypomagnesemia Diarrhea Abdominal pain Ankle pain, left Left ankle sprain Seizure disorder Hypertension Anxiety Hyponatremia Cerebellar ataxia Anemia Lactose intolerance Vertigo Asthma Mental disability Type 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 Proteinuria Hyperlipidemia LDL goal <100 Essential hypertension Family History Family History Father Myocardial infarction CVD (cardiovascular disease) Diabetes mellitus Mother Diabetes mellitus HTN (hypertension) Brother In good health Sister In good health Family history of problems with anesthesia: No Surgical History Surgical History Hx of surgical procedure (07/22/24) Hx of colonoscopy History of orchiectomy History of Problems with Anesthesia: No Social History Social History Household Members: Other Household Members Other:: resides in shelter Housing: House Housing Other:: shelter [facility] [address] [facility] [phone] Do you presently have visiting nurse or other home services: Yes Alcohol intake: former 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 Patient Tobacco Use Status: Never used Tobacco Tobacco use type: Cigarette e-Cigarette/Vaping Use: Never Used Second Hand Smoke Exposure: No Advance Directives: Yes Advance Directives on File: Yes Advance Directives Date on File: 03/07/21 Do you have a plan to hurt others: No Plan service: No Current occupational status: disabled Cognitive needs: Yes (walker) Hearing needs: No Vision needs: Yes (glasses) Meds Allergies Allergy/AdvReac Type Severity Reaction Status Date / Time Sulfa (Sulfonamide Allergy Severe CHAVEZ Verified 08/08/25 12:39 Antibiotics) ALICIA REACTION trimethoprim Allergy Mild UNKNOWN Verified 08/08/25 12:39 lactose AdvReac Mild STOMACH Verified 08/08/25 12:39 UPSET Home Medications ?Medication ?Instructions ?Recorded ?Confirmed ?Last Taken ?Type divalproex 500 mg tablet,extended 1,000 mg PO BID 06/10/23 08/04/25 Unknown History release 24 hr risperidone 3 mg tablet 3 mg PO BID 06/10/23 08/04/25 Unknown History clonidine HCl 0.1 mg tablet 0.1 mg PO BEDTIME 07/09/24 08/04/25 Unknown History aluminum-mag hydroxide-simethicone 5 ml PO QID PRN 05/06/25 07/04/25 Unknown History 400 mg-400 mg-40 mg/5 mL oral susp (Advanced Antacid-Antigas) ibuprofen 600 mg tablet 600 mg PO Q6H PRN Pain 05/06/25 08/04/25 Unknown History loperamide 2 mg capsule 2 mg PO Q8H PRN loose stool 05/06/25 08/04/25 Unknown History triamcinolone acetonide 0.1 % 1 appl dental BID 05/06/25 08/04/25 Unknown History dental paste gabapentin 300 mg capsule 300 mg PO BID 06/09/25 08/04/25 Unknown History (Neurontin) Exam Narrative Narrative: EKG 12/2024 Vent. Rate : 72 BPM Atrial Rate : 72 BPM P-R Int : 188 ms QRS Dur : 86 ms QT Int : 396 ms P-R-T Axes : 48 -14 22 degrees QTcB Int : 433 ms Normal sinus rhythm Low voltage QRS Borderline ECG When compared with ECG of 14-Jan-2024 21:43, No significant change was found Assessment and Plan Final Anesthetic Review Family History of Problems with Anesthesia: No History of Problems with Anesthesia: No
[2025-08-04 14:04] VITALS: BMI 38.4
[2025-08-08] VITALS (8 sets, daily range): BP systolic 106–180; BP diastolic 63–95; PULSE 63–87; RESP 8–18; TEMP 36.7; O2SAT 94–100
[2025-08-08 11:49] LABS: Glucose, Whole Blood 96 mg/dL (60-115)
[2025-08-08] MEDS: Lactated Ringers 1,000 ML 100 ML IVCONT (11:49)
--- NOTE | 2025-08-08 12:00 | ECG_ITS ---
Test Reason : unresponsive Blood Pressure : */* mmHG Vent. Rate : 79 BPM Atrial Rate : 79 BPM P-R Int : 180 ms QRS Dur : 90 ms QT Int : 392 ms P-R-T Axes : 80 -5 49 degrees QTcB Int : 449 ms Artifact in tracing Normal sinus rhythm Probably normal When compared with ECG of 27-Dec-2024 01:06, No significant change was found Referred By: Jose Prabhakar Electronically Signed By: AP MONTGOMERY
--- NOTE | 2025-08-08 12:11 | PC.NURSE ---
1st encounter with patient-2 nurses attempting iv insertion and patient was unresponsive, eyes wide open looking to the left. unable to feel pulse and started two rounds of cpr only. after second round of cpr patient became responsive. clear speech. anesthesia stat called overhead by another nurse. iv inserted and fluids hung by two other rns. c/o chest pain. unsure of chest pain prior to incident. ?rhythm on monitor prior to cpr.
--- NOTE | 2025-08-08 12:20 | PC.NURSE ---
1153-2 rounds of cpr.
--- NOTE | 2025-08-08 12:26 | HO.ANESEVENT ---
Anesthesia Event Note Date of Service: 08/08/25 Event Note: Mr. Zepeda was brought to the hospital today for an EGD and colonoscopy. While being readied in [facility], he had an acute episode of unresponsiveness during which no pulse was palpable by the nurses, so he was given CPR for about 1 minute. He then came to, with normal VS. We are now sending him to the ED for evaluation. The patient is a 54 yo M with neurodevelopmental delay and ? cerebral palsy. He lives in a mcc and is well known by the ED staff here. He has a reported h/o seizures, but none in a long time. He presented to the hospital today for an outpatient EGD and colonoscopy. He was brought into [facility] and was in his USOH, responding appropriately to the nurses as they got him ready in the usual fashion for his procedure. About half an hour later, about the time they were putting his IV in, he became unresponsive. EKG was chaotic, it wasn't clear if he had a rhythm or if there were technical difficulties with the EKG, but the nurses couldn't feel a pulse, so they started CPR. After about 60 compressions (no medications were given), the patient became responsive. He had a HR of 70-90, BP 160-180 systolic, Sat of 100% on 2L NC. I was asked to see the patient about 10-15 min after the episode. The patient is responsive and c/o chest pain. The [facility] nurse tells me he is not as readily responsive as he was initially when they brought him in. He also has a marked tremor now that he didn't have before. VS are as noted above, with a Sat of 95-97% on room air. He's breathing easy. He has no gross focal motor neuro deficits. EKG shows SR with no gross ischemic changes. IMPRESSION: Most likely DDX would be vaso vagal episode vs seizure. I spoke with PANKAJ Kim in the ED. She knows him well. We will send him over there for evaluation. Time Spent With Patient Time: Total time managing care of this patient today 30 minutes.
--- NOTE | 2025-08-08 12:45 | P.EN_ITS ---
Event Note Date of Service: 08/08/25 Event Note: 54 yo M with neurodevelopmental delay and ? cerebral palsy and lives in a Shelter. He has a reported h/o seizures, but none in a long time. Pt scheduled for an EGD and colon today Pt noted to become unresponsiveness in the pre-op area of [facility] while the nurse was attempting to start an IV. Per nursing staff no pulse was palpable and pt was given CPR for about 1 minute. Pt became responsive with normal VS. He was brought into [facility] and was in his baseline state of health, responding appropriately to the nurses as they got him ready for his procedure. About half an hour later, about the time they were putting his IV in, he became unresponsive. EKG was chaotic, it wasn't clear if he had a rhythm or if there were technical difficulties with the EKG, but the nurses couldn't feel a pulse, so they started CPR. After about 60 compressions (no medications were given), the patient became responsive. He had a HR of 70-90, BP 160-180 systolic, Sat of 100% on 2L NC. The [facility] nurse indicated that the pt was not as readily responsive as he was initially when they brought him in. Pt also had a marked tremor that he didn't have before - pt was cassie to move his upper and lower extremities without gross focal motor neuro deficits. EKG shows SR with no gross ischemic changes. IMPRESSION: Brief episode of unresponsiveness likely due to vaso vagal episode vs seizure. Dr Winters spoke with PANKAJ Kim in the ED and pt was transferred to the ED for further evaluation. Time Spent With Patient Time: Total time managing care of this patient today ____ minutes.
--- NOTE | 2025-08-08 14:28 | PC.NURSE ---
David Pierre rn at bedside per patient request for distraction during IV insertion. Patient A+O during admission and holding conversations. [facility] staff Oswaldo left bedside before this time. Patient had stated did not like needles. Patient became unresponsive prior to any IV insertion attempt. Sternal rub x 2 with no patient response at all. Patient eyes looking to left only. Danyell Rosas rn at bedside unable to palpate pulse, began CPR. Vanna Ozuna RN called for anesthesia stat to [facility]. After second round of CPR patient became responsive again, remembering author's name and stating I'm sorry, I feel dizzy, and my chest hurts. IV fluids running. Tremor noted to right side of body - not noted prior to this episode. Anesthesia at bedside assessing patient. Patient response to stroke symptom commands all wnl. EKG was performed at bedside showing nsr. Patient diaphoretic post CPR and answered anesthesia that cp is still present and pain felt on right side of body now. Dr. Winters spoke with ER doctor and okay to bring patient to ER. Report given to Keerthi POLLACK. Guardian, sister Shelia, called and updated as well as Oswaldo staff member from long term. Patient responsive in ER. diapohoretic and stated still not feeling well.
== END ==
LOC: HO.SSS 11:05
PROVIDERS: PCP Internal Medicine; Visit Provider Internal Medicine Gastroenterology
DX: Z12.11 Encounter for screening for malignant neoplasm of colon (principal); Z53.8 Procedure and treatment not carried out for other reasons; R07.9 Chest pain, unspecified; R61 Generalized hyperhidrosis
CPT/HCPCS: 82947; 93005

== ENCOUNTER → 2025-08-08 12:00 | Outpatient (BNV) | payer MEDICARE, MEDICAID, SELFPAY | PROVIDERS: PCP Internal Medicine; Visit Provider Internal Medicine | DX: R40.20 Unspecified coma (principal); I46.9 Cardiac arrest, cause unspecified | CPT/HCPCS: 93010 ==

== ENCOUNTER 2025-08-08 12:30 | Observation (INO) | payer MEDICARE, MEDICAID, SELFPAY ==
[2025-08-08] VITALS (7 sets, daily range): BP systolic 114–145; BP diastolic 59–78; PULSE 67–87; RESP 13–18; TEMP 36.1–36.5; O2SAT 96–100; BMI 41.6
--- NOTE | 2025-08-08 | ECG_ITS ---
Test Reason : cardiac arrest Blood Pressure : */* mmHG Vent. Rate : 75 BPM Atrial Rate : 75 BPM P-R Int : 178 ms QRS Dur : 88 ms QT Int : 414 ms P-R-T Axes : 49 -14 23 degrees QTcB Int : 462 ms Normal sinus rhythm Normal EKG When compared with ECG of 08-Aug-2025 12:06, No significant change was found Referred By: Honey Loaiza Electronically Signed By: AP MONTGOMERY
--- NOTE | ~2025-08-08 | XR_ITS ---
EXAMINATION: XR CHEST CLINICAL INFORMATION: chest compressions COMPARISON: June 10, 2025 TECHNIQUE: Frontal view of the chest was obtained. FINDINGS: Lungs are clear. Heart size is within normal limits. Mediastinal structures are unremarkable. XR/XR chest 1V IMPRESSION: No acute disease. Electronically signed by: Neo Bell MD 08/08/2025 01:31 PM EDT
[2025-08-08 12:58] LABS: MANUAL DIFF FLAG NO
[2025-08-08 13:00] LABS: Hematocrit 35.7 % (42.0-52.0); Hemoglobin 12.2 g/dl (14.0-18.0); Imm Gran Abs Auto 0.07 X10*3/uL (0.00-0.03); Imm Gran Pct Auto 1.8 % (0.0-0.4); Lymphocytes Absolute Auto 1.2 X10*3/uL (1.2-4.9); Mean Corpuscular HGB Conc 34.2 g/dl (31.0-36.0); Mean Corpuscular Hemoglobin 30.7 pg (27.0-33.0); Mean Corpuscular Volume 89.9 fL (80.0-98.0); NRBC Abs Auto 0.000 X10*3/uL (0.0-0.012); NRBC Pct Auto 0.0 /100WBC (0.0-0.2); Red Blood Count 3.97 X10*6/uL (4.60-5.80); White Blood Count 3.9 X10*3/uL (4.8-10.8)
--- NOTE | 2025-08-08 13:00 | PC.NURSE ---
pt presents from OR in [facility] [place] s/p scheduled for endoscopy/colonoscopy - staff reports placing an IV where he then noted to be diaphoretic and then unresponsive w/ no detectable pulses. two rounds of compressions were performed by staff - no medications given by staff. pt awoke became alert/oriented w/ an associated new tremor. pt remains awake/alert/responsive upon ED arrival. pt c/o chest discomfort s/p compressions. vss and up to date. nsr on the television installer. labs obtained/sent to lab. ekg performed by tech. pt pending XR to be completed at this time. on RA w/o difficulty - no sob/wob noted. respirations even/unlabored. plan of care ongoing. call olson placed within reach.
[2025-08-08 13:04] LABS: Platelet Count 86 X10*3/uL (160-400)
[2025-08-08 13:16] LABS: Alanine Aminotransferase 26 U/L (0-40); Albumin Level 3.5 g/dL (3.5-5.0); Alkaline Phosphatase 63 U/L (39-117); Anion Gap 12 (12-20); Aspartate Amino Transferase 36 U/L (5-37); Blood Urea Nitrogen 21 mg/dL (9-16); Calcium 8.5 mg/dL (8.4-10.2); Carbon Dioxide 24 mmol/L (22-29); Chloride 107 mmol/L (96-108); Creatinine Clr Calc Pharmacy 105.7; Estimated Glomerular Filt Rate > 60; Magnesium 1.8 mg/dL (1.6-2.6); Potassium 4.1 mmol/L (3.3-5.1); Sodium 139 mmol/L (135-145); Total Protein 6.3 g/dL (6.5-8.0)
--- NOTE | 2025-08-08 13:23 | ED.GENADULT ---
HPI - General Adult General Chief complaint: General Medical Stated complaint: from OR Time Seen by Provider: 08/08/25 12:35 Source: patient and other Mode of arrival: other Limitations: no limitations History of Present Illness ED Provider: GILMAR HPI narrative: 54 yo male with PMH of pneumonia, RSV, schizophrenia, DM2, GERD, aflutter no thinners due to high fall risk from ataxia, HLD, HTN here with c/o getting IV in pre op area for EGD and colonoscopy when he states the IV was painful and he became sweaty. RN could not find a pulse, no tele was on. He had 2 cycles of compression only. No meds given. He woke up and returned to baseline. He c/o chest soreness. He denies feeling sick before presenting today. 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) Radiation: non-radiation Severity: severe Relieving factors: none Exacerbating factors: other (painful IV) Associated symptoms: denies other symptoms Treatments prior to arrival: other Related Data Home Medications ?Medication ?Instructions ?Recorded ?Confirmed divalproex 500 mg tablet,extended 1,000 mg PO BID 06/10/23 08/04/25 release 24 hr risperidone 3 mg tablet 3 mg PO BID 06/10/23 08/04/25 clonidine HCl 0.1 mg tablet 0.1 mg PO BEDTIME 07/09/24 08/04/25 aluminum-mag hydroxide-simethicone 5 ml PO QID PRN 05/06/25 07/04/25 400 mg-400 mg-40 mg/5 mL oral susp (Advanced Antacid-Antigas) ibuprofen 600 mg tablet 600 mg PO Q6H PRN Pain 05/06/25 08/04/25 loperamide 2 mg capsule 2 mg PO Q8H PRN loose stool 05/06/25 08/04/25 triamcinolone acetonide 0.1 % 1 appl dental BID 05/06/25 08/04/25 dental paste gabapentin 300 mg capsule 300 mg PO BID 06/09/25 08/04/25 (Neurontin) Previous Rx's ?Medication ?Instructions ?Recorded lactase 3,000 unit tablet (Lactaid) 3,000 unit PO TIDWM PRN Lactose 11/14/23 Intolerance #30 tabs acetaminophen 325 mg tablet 650 mg (2 x 325 mg) PO Q4H PRN 03/27/24 fever or pain 90 days #180 tabs blood-glucose meter (Prodigy #1 ea 04/07/24 Autocode Blood Glucose Monitoring System) fluticasone propionate 50 1 spray intranasal BID #16 grams 06/17/24 mcg/actuation nasal spray,suspension (Flonase Allergy Relief) [id number] #1 ea 09/03/24 Bilateral custom AFO #2 ea 09/03/24 Heat Moldable shoe inserts #2 ea 09/03/24 fluoride (sodium) 1.1 % dental 1 appl dental BID #100 mL 10/13/24 paste (PreviDent 5000 Booster Plus) neomycin-bacitracn Zn-polymyxn 3.5 1 appl topical BID #10 ea 11/25/24 mg-400 unit-5,000 unit top oint pkt (Triple Antibiotic) albuterol sulfate 90 mcg/actuation 2 puff inhalation Q6H PRN Wheezing 12/29/24 aerosol inhaler #8.5 grams lisinopril 5 mg tablet 5 mg PO DAILY #30 tabs 12/29/24 DIABETIC SHOES/INSERTS #1 ea 01/10/25 atorvastatin 10 mg tablet 10 mg PO BEDTIME #90 tabs 02/21/25 ferrous sulfate 325 mg (65 mg 325 mg PO BID #180 tabs 02/21/25 iron) tablet propranolol 20 mg tablet 20 mg PO TID@0800,1600,2000 90 02/21/25 days #270 tabs alvarez.stocking,knee,reg,xlrg #12 ea 04/22/25 Adult briefs #300 ea 05/10/25 wheelchair cushion #1 ea 05/10/25 fluticasone furoate 200 1 inh inhalation DAILY #60 ea 05/30/25 mcg-vilanterol 25 mcg/dose inhalation powder (Breo Ellipta) fexofenadine-pseudoephedrine ER 1 tab PO QAM congestion 10 days 06/06/25 180 mg-240 mg tablet,ext.release #10 tabs 24 hr starch (thickening) (Diafoods See Rx Instructions PO .COMPLEX 30 06/13/25 Thick-It oral powder) days #850 grams cefpodoxime 200 mg tablet 200 mg PO Q12H #14 tabs 06/21/25 bisacodyl 5 mg tablet,delayed 10 mg (2 x 5 mg) PO BEDTIME #180 06/24/25 release (Dulcolax (bisacodyl)) tabs polyethylene glycol 3350 17 238 g PO ONCE #238 grams 06/24/25 gram/dose oral powder (Miralax) calcium carbonate 600 mg PO DAILY #30 tabs 07/04/25 cyanocobalamin (vitamin B-12) 1,000 mcg PO BEDTIME #90 tabs 07/07/25 1,000 mcg tablet Hospital Bed full electric with #1 ea 07/25/25 rails [place] for electric hospital bed #1 ea 07/25/25 blood sugar diagnostic (Owlienty No #100 ea 07/27/25 Coding strips) blood-glucose meter (PingboardTouch #1 ea 08/01/25 Ultra2 Meter) lancets 28 gauge (Owlienty Lancets) #200 ea 08/01/25 lancets 30 gauge (OneTouch #100 ea 08/01/25 UltraSoft 2 Lancet) lancing device ([employer] Lancing #1 ea 08/01/25 Device) cholecalciferol (vitamin D3) 25 25 mcg PO DAILY #30 tabs 08/05/25 mcg (1,000 unit) tablet empagliflozin 25 mg tablet 25 mg PO DAILY #30 tabs 08/05/25 (Jardiance) esomeprazole magnesium 40 mg 40 mg PO BEDTIME #28 caps 08/05/25 capsule,delayed release (Nexium) hydralazine 50 mg tablet 50 mg PO TID #90 tabs 08/06/25 Allergies Allergy/AdvReac Type Severity Reaction Status Date / Time Sulfa (Sulfonamide Allergy Severe CHAVEZ Verified 08/08/25 12:39 Antibiotics) ALICIA REACTION trimethoprim Allergy Mild UNKNOWN Verified 08/08/25 12:39 lactose AdvReac Mild STOMACH Verified 08/08/25 12:39 UPSET Review of Systems Review of Systems: Constitutional : No Weight loss, No Fever, No Chills ENT/Mouth : No sore throat, No Rhinorrhea Eyes: No Eye Pain, No Swelling Cardiovascular : pos Chest Pain, no SOB Respiratory : No Cough, No Sputum Gastrointestinal : no Nausea, No Vomiting, No Diarrhea, No abdominal Pain, No Hematochezia, No Melena Genitourinary : No Dysuria, No Urinary Frequency Musculoskeletal : No joint pain, No Myalgias, No Joint Swelling Skin : No Skin Lesions, No rash Neuro : No Weakness, No Numbness All other systems reviewed and are negative PMFSH Past Medical History Attestation statement: The following information was validated with the patient. Source: old records reviewed Medical History Feeling suicidal Tinea cruris Leg swelling Atrial flutter Atrial fib/flutter, transient A-fib Arrhythmia Abnormal EKG Contusion of left ankle Annual physical exam Abdominal pain Back pain Positive colorectal cancer screening using Cologuard test Precordial chest pain Hospital discharge follow-up Chest pain Right ankle pain Musculoskeletal chest pain Left-sided chest pain Back pain Fall Dysphagia Acute kidney injury Gait instability Suicidal ideation COVID-19 Hypomagnesemia Diarrhea Abdominal pain Ankle pain, left Left ankle sprain Seizure disorder Hypertension Anxiety Hyponatremia Cerebellar ataxia Anemia Lactose intolerance Vertigo Asthma Mental disability Type 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 Proteinuria Hyperlipidemia LDL goal <100 Essential hypertension Surgical History Hx of surgical procedure (07/22/24) Hx of colonoscopy History of orchiectomy Family History Family History Father Myocardial infarction CVD (cardiovascular disease) Diabetes mellitus Mother Diabetes mellitus HTN (hypertension) Brother In good health Sister In good health Social History Social History Household Members: Other Household Members Other:: resides in alf Housing: House Housing Other:: alf [facility] [address] [place] [phone] Do you presently have visiting nurse or other home services: Yes Alcohol intake: former 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 Patient Tobacco Use Status: Never used Tobacco Tobacco use type: Cigarette e-Cigarette/Vaping Use: Never Used Second Hand Smoke Exposure: No Advance Directives: Yes Advance Directives on File: Yes Advance Directives Date on File: 03/07/21 Do you have a plan to hurt others: No Plan service: No Current occupational status: disabled Cognitive needs: Yes (walker) Hearing needs: No Vision needs: Yes (glasses) Physical Exam ED Vital Signs: Vital Signs - 24 hr 08/08/25 12:37 08/08/25 12:54 08/08/25 13:31 Temperature 97.6 F Pulse Rate 73 67 74 Respiratory Rate 15 15 14 Blood Pressure 138/71 127/73 126/78 Pulse Oximetry 98 100 99 Oxygen Delivery Method Room Air Room Air Room Air 08/08/25 14:05 Temperature 97.7 F Pulse Rate 72 Respiratory Rate 14 Blood Pressure 120/75 Pulse Oximetry 98 Oxygen Delivery Method Room Air BMI result Body Mass Index 41.6 Appearance: Alert. Oriented X3. No acute distress. Eyes: Pupils equal, round and reactive to light. ENT: Pharynx normal. Neck: Normal inspection. Neck supple. CVS: Normal heart rate and rhythm. Pulses normal. Chest: redness and ttp to sternum no crepitis felt Respiratory: No respiratory distress. Breath sounds normal. Abdomen: Soft and nontender. Skin: Skin warm and dry. Normal skin color. Normal skin turgor. Extremities: No lower extremity edema. No calf ttp Neuro: Oriented X 3. No motor deficit. No sensory deficit. CN2-12 intact Medical Decision Making Medical Decision Making [facility] Narrative: 54 yo male with PMH of pneumonia, RSV, schizophrenia, DM2, GERD, aflutter no thinners due to high fall risk from ataxia, HLD, HTN here with c/o painful IV then felt sweaty and per staff nurse anesthetist 2 cycles of CPR and pulse not felt. He is awake and alert on arrival, no tele done, no preceding CP/SOB he states he felt pain and then woke up. No seizures reported. Will obtain EKG, labs, CXR, possible admit for tele. Differential Diagnosis Differential Diagnoses: The differential diagnosis associated with the presentation includes vasovagal syncope, cardiac event Admission/Observation Consideration of admission/observation: Escalation of care including admission/observation considered will admit for tele overnight Consult Healthcare Provider Management of the patient was discussed with: Hospitalist (will admit) Lab Data [facility] Lab Attestation statement: I reviewed the patient's lab results. 08/08/25 12:54 08/08/25 12:54 Labs: Lab Results 08/08/25 Range/Units 12:54 WBC 3.9 L (4.8-10.8) X10*3/uL RBC 3.97 L (4.60-5.80) X10*6/uL Hgb 12.2 L (14.0-18.0) g/dl Hct 35.7 L (42.0-52.0) % MCV 89.9 (80.0-98.0) fL MCH 30.7 (27.0-33.0) pg MCHC 34.2 (31.0-36.0) g/dl RDW 12.0 (11.0-16.0) % Plt Count 86 L D (160-400) X10*3/uL MPV 9.0 L (9.4-12.4) fL Immature Gran % (Auto) 1.8 H (0.0-0.4) % Neut % (Auto) 58.9 (45-73) % Lymph % (Auto) 29.4 (20-40) % [place] % (Auto) 8.6 (2-11) % Eos % (Auto) 0.8 (0-4) % Baso % (Auto) 0.5 (0-2) % Lymph # (Auto) 1.2 (1.2-4.9) X10*3/uL [place] # (Auto) 0.3 (0.1-1.2) X10*3/uL Eos # (Auto) 0.0 (0.0-0.4) X10*3/uL Baso # (Auto) 0.0 (0.0-0.2) X10*3/uL Abs Immat Gran (auto) 0.07 H (0.00-0.03) X10*3/uL Absolute Neuts (auto) 2.3 (2.0-8.3) x10*3/uL Absolute Nucleated RBC 0.000 (0.0-0.012) X10*3/uL Nucleated RBC % (auto) 0.0 (0.0-0.2) /100WBC Sodium 139 (135-145) mmol/L Potassium 4.1 (3.3-5.1) mmol/L Chloride 107 (96-108) mmol/L Carbon Dioxide 24 (22-29) mmol/L Anion Gap 12 (12-20) BUN 21 H (9-16) mg/dL Creatinine 0.94 (0.5-1.4) mg/dL Estim Creat Clear Calc 105.7 Estimated GFR > 60 Random Glucose 101 (60-115) mg/dL Calcium 8.5 (8.4-10.2) mg/dL Magnesium 1.8 (1.6-2.6) mg/dL Total Bilirubin 0.4 (0.0-1.0) mg/dL AST 36 (5-37) U/L ALT 26 (0-40) U/L Alkaline Phosphatase 63 (39-117) U/L Troponin I High Sens 4.1 (<3.5-35.0) ng/L Total Protein 6.3 L (6.5-8.0) g/dL Albumin 3.5 (3.5-5.0) g/dL Independent Interpretation I performed an independent interpretation of an: EKG and Plain X-Ray (normal ) Interpretation: Rate: 75 Rhythm: NSR [place]: left Normal P waves. Normal FLORI. Normal QRS complex. ST T wave : inverted t wave V1, artifact in lateral and inf leads qTC: 462 prior studies: no PILAR The study has been interpreted contemporaneously by me. . Radiology Impression Discussion of test interpretation with radiology: I have reviewed the radiologist's reading. Independent Historian Clinical information obtained from an independent historian. History obtained from or confirmed by: Other External Record Review External record reviewed: Inpatient record and Outpatient record Discharge Plan Discharge Clinical Impression: Episode of unresponsiveness Patient Disposition: Admitted As Inpatient Print Language: Kyrgyz
[2025-08-08 13:24] LABS: Troponin-I High Sensitivity 4.1 ng/L (<3.5-35.0)
--- NOTE | 2025-08-08 14:46 | P.HPHOSP_ITS ---
History of Present Illness Date of Service: 08/08/25 Chief Complaint: Syncope 54-year-old man scheduled for endoscopy today but had episode of syncope. Patient was in PACU and while he was having an IV inserted he lost consciousness. Apparently the nursing staff had thought that he lost his pulse and they did 2 rounds of CPR. Patient at that time was not on telemetry, no medications were given and no MD/EMANUEL provider were present. In the ER, chest x-ray never to consolidation or effusion, normal potassium and magnesium, EKG without any acute abnormality, normal QTC, noted thrombocytopenia. Plan will be for patient to be placed on observation for monitoring of vasovagal syncope Review of Systems 2 Review of Systems: Denies any recent fever chills or decrease in appetite respiratory denies any shortness of breath or cough cardiovascular reported some chest pain likely from the CPR gastrointestinal denies any dysphagia abdominal pain nausea vomiting or diarrhea genitourinary denies any dysuria frequency or hematuria musculoskeletal denies any joint pain or swelling neuropsych denies any weakness or seizures all other systems reviewed are negative [facility] Medical History (Updated 08/08/25 @ 16:42 by Sharmila Mendoza NP) Vasovagal syncope Tinea cruris Leg swelling Atrial flutter Atrial fib/flutter, transient A-fib Arrhythmia Abnormal EKG Contusion of left ankle Annual physical exam Abdominal pain Back pain Positive colorectal cancer screening using Cologuard test Precordial chest pain Hospital discharge follow-up Chest pain Right ankle pain Musculoskeletal chest pain Left-sided chest pain Back pain Fall Dysphagia Acute kidney injury Gait instability Suicidal ideation COVID-19 Hypomagnesemia Diarrhea Abdominal pain Ankle pain, left Left ankle sprain Seizure disorder Hypertension Anxiety Hyponatremia Cerebellar ataxia Anemia Lactose intolerance Vertigo Asthma Mental disability Type 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 Proteinuria Hyperlipidemia LDL goal <100 Essential hypertension Family History Father Myocardial infarction CVD (cardiovascular disease) Diabetes mellitus Mother Diabetes mellitus HTN (hypertension) Brother In good health Sister In good health Surgical History Hx of surgical procedure (07/22/24) Hx of colonoscopy History of orchiectomy Social History Household Members: Other Household Members Other:: resides in correction Housing: House Housing Other:: [facility] [address] [place] [phone] Do you presently have visiting nurse or other home services: Yes Alcohol intake: former 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 Patient Tobacco Use Status: Never used Tobacco Tobacco use type: Cigarette Smoked in Last 30 Days: No e-Cigarette/Vaping Use: Never Used Second Hand Smoke Exposure: No Use of substances other than those prescribed or required for medical reasons: No Advance Directives: Yes Advance Directives on File: Yes Advance Directives Date on File: 03/07/21 Do you have a plan to hurt others: No Plan service: No Current occupational status: disabled Cognitive needs: Yes (walker) Hearing needs: No Vision needs: Yes (glasses) Meds Allergies Allergy/AdvReac Type Severity Reaction Status Date / Time Sulfa (Sulfonamide Allergy Severe CHAVEZ Verified 08/08/25 12:39 Antibiotics) ALICIA REACTION trimethoprim Allergy Mild UNKNOWN Verified 08/08/25 12:39 lactose AdvReac Mild STOMACH Verified 08/08/25 12:39 UPSET Home Medications ?Medication ?Instructions ?Recorded ?Confirmed ?Last Taken ?Type divalproex 500 mg tablet,extended 1,000 mg PO BID 12/0208/08/25 Unknown History release 24 hr risperidone 3 mg tablet 3 mg PO BID 06/10/23 5 Unknown History clonidine HCl 0.1 mg tablet 0.1 mg PO BEDTIME PRN Agit ation 07/09/24 08/08/25 Unknown History aluminum-mag hydroxide-simethicone 5 ml PO Q6H PRN Ind igestion 05/06/25 08/08/25 Unknown History 400 mg-400 mg-40 mg/5 mL oral susp (Advanced Antacid-Antigas) ibuprofen 600 mg tablet 600 mg PO Q6H PRN Pain 05/0608/08/25 Unknown History loperamide 2 mg capsule 2 mg PO Q8H PRN loose stool 05/06/25 08/08/25 Unknown History triamcinolone acetonide 0.1 % 1 appl dental Q8H PRN gu m 05/06/25 08/08/25 Unknown History dental paste trauma/sores gabapentin 300 mg capsule 300 mg PO BID 06/09/2508/08 Unknown History (Neurontin) bismuth subsalicylate 262 mg/15 mL 524 mg PO Q6H PRN D iarrhea 08/08/25 08/08/25 Unknown History oral suspension (Stomach Relief) dextromethorphan polistirex 30 10 ml PO Q12H PRN Cough 08/08/25 08/08/25 Unknown History mg/5 mL oral susp ext.release 12hr neomycin-bacitracn Zn-polymyxn 3.5 1 appl topical BID PRN anti 08/08/25 08/08/25 Unknown History mg-400 unit-5,000 unit top oint infection pkt (Triple Antibiotic) propranolol 20 mg tablet 20 mg PO TID 08/08/25 Unknown History Physical Exam 2 Vital Signs and Narrative: Vital Signs: Last Vital Signs Temp 97.7 F 08/08/25 14:05 Pulse 72 08/08/25 14:05 Resp 14 08/08/25 14:05 BP 120/75 08/08/25 14:05 Pulse Ox 98 08/08/25 14:05 O2 Del Method Room Air 08/08/25 14:05 BMI result Body Mass Index 41.6 Appearing in no acute distress head is normocephalic atraumatic eyes pupils are PERRLA sclera is anicteric mouth throat mucous membranes are intact and moist neck is supple no lymphadenopathy, no JVD noted lung sounds are clear to auscultation heart regular rate rhythm, clear S1, S2 positive bowel sounds, abdomen is soft, nontender neuro patient is alert x3, no focal deficits Results Labs 08/08/25 12:54 08/08/25 12:54 Labs: Laboratory Results - last 24 hr 08/08/25 12:54 MCV 89.9 MCH 30.7 MCHC 34.2 RDW 12.0 Plt Count 86 L D MPV 9.0 L Immature Gran % (Auto) 1.8 H Neut % (Auto) 58.9 Lymph % (Auto) 29.4 [place] % (Auto) 8.6 Eos % (Auto) 0.8 Baso % (Auto) 0.5 Lymph # (Auto) 1.2 [place] # (Auto) 0.3 Eos # (Auto) 0.0 Baso # (Auto) 0.0 Abs Immat Gran (auto) 0.07 H Absolute Neuts (auto) 2.3 Absolute Nucleated RBC 0.000 Nucleated RBC % (auto) 0.0 Anion Gap 12 Estim Creat Clear Calc 105.7 Estimated GFR > 60 Random Glucose 101 Calcium 8.5 Magnesium 1.8 Total Bilirubin 0.4 AST 36 ALT 26 Alkaline Phosphatase 63 Troponin I High Sens 4.1 Total Protein 6.3 L Albumin 3.5 Imaging Radiologist's Impressions: Impressions Chest X-Ray 08/08/25 13:17 IMPRESSION: No acute disease. Electronically signed by: Neo Bell MD 08/08/2025 01:31 PM EDT RP Assessment and Plan (1) Episode of unresponsiveness: Status: Acute Plan 54 year old man scheduled for endoscopy had vasovagal episode while having an IV placed prior to procedure. According to the nurses with the patient he lost pulse and 2 rounds of CPR were done but patient was not on any monitoring, did not receive any medications and no provider was present. Unresponsiveness likely Vasovagal syncope Likely secondary to IV insertion QTC normal on EKG, normal electrolytes Patient denies any history of syncopal episodes monitor on IMC for arrhythmia or telemetry changes Chest pain/soreness Likely secondary to CPR Pain management as needed History of cerebellar ataxia Uses mostly wheelchair Atrial flutter, unspecified Not on anticoagulation Diabetes mellitus type 2 A1c 7.0 On Jardiance Hypertension Continue lisinopril, hydralazine Mental health Continue home medications Asthma Albuterol as needed Chronic thrombocytopenia Mildly decreased from baseline Hyperlipidemia Continue statin Morbid obesity. BMI 41.6 Discussed importance of weight management as this may be contributing to worsening of other comorbidities DVT prophylaxis with Lovenox Full code Quality Stroke Does the patient have a stroke diagnosis?: No VTE Prior VTE?: No VTE Risk Level:: Medical - moderate - high VTE Device Contraindication: Treatment Not Indicated VTE Drug Contraindication: N/A - Med Ordered
--- NOTE | 2025-08-08 15:44 | PC.NURSE ---
pt transitioned to hospital bed to promote comfort. bed alarm turned on for safety precautions. otherwise, vss and up to date. nsr on the ekg monitor tech. has no complaints/denies pain. on RA w/o difficulty. no sob/wob noted. respirations even/unlabored. pending admission for observation. plan of care ongoing. call olson placed within reach.
--- NOTE | 2025-08-08 16:02 | HO.NURTONUR ---
Addendum entered by Chana Wilson RN 08/08/25 16:11: Vitals stable on room air. Original Note: Admitted for observation. Pt brought to ED from [facility] following 2 rounds of chest compressions. He went unresponsive when they attempted an IV. Pt was alert and oriented to self and situation when he arrived in ED. He complains of chest pain, experienced new tremor. Tremor now resolved. Pt has had no meds. He is developmentally delayed at baseline, lives at a fpc, uses a wheelchair. Pt uses a urinal with assistance. He is diabetic. He is able to communicate his needs. 20G IV is saline locked.
--- NOTE | 2025-08-08 16:21 | PHA.MEDREC ---
Addendum entered by Chava Conklin PharmD 08/08/25 16:25: reviewed Original Note: Pharmacy Consult ? Medication Reconciliation Pharmacy has completed the medication reconciliation. Utilized list from intermediate to [facility] med list.
--- NOTE | 2025-08-08 18:21 | PC.NURSE ---
Rn spoke to pt's sister. Updated her per Raulito's request. Pt's blood sugar was 167 after snack and before meal.
[2025-08-08 19:37] LABS: Glucose, Whole Blood 167 mg/dL (60-115)
[2025-08-08 20:43] LABS: Glucose, Whole Blood 173 mg/dL (60-115)
[2025-08-08] MEDS: Ferrous Sulfate 324 MG TABLET.DR PO (21:30)
[2025-08-09] VITALS (8 sets, daily range): BP systolic 87–173; BP diastolic 52–90; PULSE 62–78; RESP 16–19; TEMP 36–36.7; O2SAT 96–99
--- NOTE | 2025-08-09 | EEG_ITS ---
Roomed Performed:?402 Reason: unresponsiveness History: vasovagal syncope, tinea cruris, leg swelling, atrial flutter, arrhythmia,dysphagia, acute kidney injury, suicidal ideation, hypomagnesemia, diarrhea, seizure disorder, hypertension, anxiety, hyponatremia, cerebellar ataxia, anemia, vertigo, asthma, mental disability, hyperlipidemia - yesterday patient was admitted for witnessed unresponsiveness event - vasovagal episode while having IV placed - during this event nurse staff noted patient did not have a pulse and 2 rounds of CPR was performed Medication: divalproex, risperidone, clonidine, loperamide, gabapentin, propranolol Technical description Photic stimulation: completed Hyperventilation:?omitted - pt unresponsive Behavioral state: pt became unresponsive during set up, vital signs were all normal, pt arm would drop to side when held up over face, pt slowly started following commands State of Consciousness: awake Skull defect: none Sedation: none Handedness: right Duration of study:?28 min 18?sec Description: This is a 16 channel EEG with an EKG lead. Patient is reported awake during the tracing. Background EEG rhythm is about 10 hertz 5-50 microvolt posteriorly and lower amplitude fast anteriorly. Photic stimulation does not produce any significant driving. Hyperventilation is not performed. Cardiac lead does not reveal any significant abnormality. No sharp wave spikes or paroxysmal tendency noted. Impression: Unremarkable EEG. MTDD
--- NOTE | 2025-08-09 | ECG_ITS ---
Test Reason : unresponsive Blood Pressure : */* mmHG Vent. Rate : 73 BPM Atrial Rate : 73 BPM P-R Int : 186 ms QRS Dur : 92 ms QT Int : 410 ms P-R-T Axes : 60 -5 41 degrees QTcB Int : 451 ms Normal sinus rhythm Low voltage QRS Borderline ECG When compared with ECG of 08-Aug-2025 12:41, Nonspecific T wave abnormality now evident in Anterior leads Referred By: Fahad Cunningham Electronically Signed By: AP MONTGOMERY
[2025-08-09 06:58] LABS: Glucose, Whole Blood 162 mg/dL (60-115)
--- NOTE | 2025-08-09 08:48 | MHC.CM.PN ---
CM met with Patient at bedside and addressed SUMNER with him; Patient appeared to understand but CM also spoke with Guardian/Sister/Shelia @ [phone], who appeared already aware of the OBSERVATION status. Per Guardian's request, GABRIEL has reached out to MD, requesting that he call Guardian ARLEEN. GABRIEL also informed RN that Patient stated that he is still having chest pain. Patient is from his [facility] and returning there at dc is the goal.GABRIEL has initiated and will follow for dc planning. PCP is Dr. Robert Sumner and Patient will require BLS transport at dc.
[2025-08-09 09:12] LABS: Hematocrit 33.5 % (42.0-52.0); Hemoglobin 11.6 g/dl (14.0-18.0); Mean Corpuscular HGB Conc 34.6 g/dl (31.0-36.0); Mean Corpuscular Hemoglobin 30.4 pg (27.0-33.0); Mean Corpuscular Volume 87.9 fL (80.0-98.0); NRBC Abs Auto 0.000 X10*3/uL (0.0-0.012); NRBC Pct Auto 0.0 /100WBC (0.0-0.2); Platelet Count 101 X10*3/uL (160-400); Red Blood Count 3.81 X10*6/uL (4.60-5.80); White Blood Count 4.8 X10*3/uL (4.8-10.8)
[2025-08-09 09:26] LABS: Anion Gap 11 (12-20); Blood Urea Nitrogen 22 mg/dL (9-16); Calcium 8.5 mg/dL (8.4-10.2); Carbon Dioxide 26 mmol/L (22-29); Chloride 107 mmol/L (96-108); Creatinine Clr Calc Pharmacy 110.4; Estimated Glomerular Filt Rate > 60; Potassium 4.3 mmol/L (3.3-5.1); Sodium 140 mmol/L (135-145)
[2025-08-09] MEDS: 0.9 % Sodium Chloride Flush 3 ML SYRINGE IVFLUSH ×3 (09:30→20:43)
[2025-08-09] MEDS: Ferrous Sulfate 324 MG TABLET.DR PO ×2 (09:30→20:39)
[2025-08-09 10:24] LABS: Glucose, Whole Blood 180 mg/dL (60-115)
[2025-08-09 10:49] LABS: Troponin-I High Sensitivity < 2.7 ng/L (<3.5-35.0)
[2025-08-09 10:54] LABS: Glucose, Whole Blood 166 mg/dL (60-115)
--- NOTE | 2025-08-09 11:59 | HO.PM.IMPN ---
Subjective Subjective Date of Service: 08/09/25 Interval History: overnight endorsed SI; spat at male sitter; no syncopal episodes this AM became unresponsive but no arrhythmia, normal muscle tone, no seizure like movements, no postictal phase; blood glucose normal right afterward, pt was examined and said I became unresponsive' per sister, pt had absence seizures but not since childhood c/o chest pain, worse with palpation Physical Exam Vital Signs: Vital Signs: Last Vital Signs Temp 97.2 F 08/09/25 11:10 Pulse 62 08/09/25 11:10 Resp 18 08/09/25 11:10 BP 115/61 08/09/25 11:10 Pulse Ox 98 08/09/25 11:10 O2 Del Method Room Air 08/09/25 11:10 BMI result Body Mass Index 41.6 Gen: in no acute distress HEENT: strabismus, sclera anicteric, moist mucus membranes Neck: supple Lungs: clear to auscultation bilaterally Heart: regular rate and rhythm, no murmurs, mid-sternal tenderness Abd: soft, non-tender, non-distended, obese Ext: no edema Skin: warm/well-perfused Neuro: alert and oriented x3, no focal findings Psych: anxious Objective Data Active Medications Acetaminophen (Acetaminophen 325 Mg Tablet) 650 mg PO Q6H PRN PRN Reason: Pain, Mild 1-3,fever,headache Last Admin: 08/09/25 06:31 Dose: 650 mg Documented By: KAREN Al Hydroxide/Mg Hydroxide (Magnesium Hydrox/Alum Hydrox 30 Ml Oral.Susp) 5 ml PO Q6H PRN PRN Reason: Indigestion Albuterol Sulfate (Albuterol Sulfate 90 Mcg 8 Gm Inhaler) 2 puff INHALE Q6H PRN PRN Reason: Wheezing Atorvastatin Calcium (Atorvastatin Calcium 10 Mg Tablet) 10 mg PO BEDTIME PILO Last Admin: 08/08/25 21:30 Dose: 10 mg Documented By: KAREN Calcium Carbonate (Calcium Carbonate 750 Mg Tab.Chew) 750 mg PO Q4H PRN PRN Reason: Heartburn Clonidine HCl (Clonidine Hcl 0.1 Mg Tablet) 0.1 mg PO BEDTIME PRN; Protocol PRN Reason: Agitation Last Admin: 08/08/25 23:40 Dose: 0.1 mg Documented By: FIONA Cyanocobalamin (Cyanocobalamin (Vitamin B-12) 1,000 Mcg Tablet) 1,000 mcg PO BEDTIME [facility] Last Admin: 08/08/25 21:30 Dose: 1,000 mcg Documented By: KAREN Dextrose (Dextrose 50 % 25 Gm/50 Ml Syringe) 25 gm IVPUSH Q15M PRN; Protocol PRN Reason: per Hypoglycemia Standing Ord. Divalproex Sodium (Divalproex Sodium Er 500 Mg Tab.Er.24h) 1,000 mg PO BID [facility] Last Admin: 08/09/25 09:29 Dose: 1,000 mg Documented By: ANGEL Empagliflozin (Empagliflozin 25 Mg Tablet) 25 mg PO DAILY [facility] Last Admin: 08/09/25 09:29 Dose: 25 mg Documented By: ANGEL Enoxaparin Sodium (Enoxaparin Sodium 40 Mg/0.4 Ml Syringe) 40 mg SUBCUT Q24H [facility] Last Admin: 08/08/25 17:19 Dose: 40 mg Documented By: JAYME Ferrous Sulfate (Ferrous Sulfate 324 Mg Tablet.Dr) 324 mg PO BID [facility] Last Admin: 08/09/25 09:30 Dose: 324 mg Documented By: ANGEL Fluticasone Propionate (Fluticasone Propionate Nasal 16 Gm Rogers) 1 spray NOSTRIL-B BID [facility] Last Admin: 08/09/25 09:41 Dose: Not Given Documented By: ANGEL Non-Admin Reason: NOT AVAILABLE: Pharmacy called Fluticasone/Vilanterol (Fluticasone/Vilanterol 200/25 Blst.W.Dev) 1 puff INHALE RDAILY [facility] Last Admin: 08/09/25 11:39 Dose: Not Given Documented By: LIVIER Non-Admin Reason: Med Not Available Gabapentin (Gabapentin 300 Mg Capsule) 300 mg PO BID [facility] Last Admin: 08/09/25 09:30 Dose: 300 mg Documented By: ANGEL Glucose (Glucose Gel 15 Gm Gel..Gram.) 15 gm PO Q15M PRN; Protocol PRN Reason: per Hypoglycemia Standing Ord. Hydralazine HCl (Hydralazine Hcl 50 Mg Tablet) 50 mg PO TID [facility]; Protocol Last Admin: 08/09/25 09:29 Dose: 50 mg Documented By: ANGEL Insulin Human Lispro (Insulin Lispro 100 Unit/Ml 3 Ml Vial) 0 unit SUBCUT QIDACHS [facility]; Protocol Lactase (Lactase Tablet) 1 tab PO TIDWM PRN PRN Reason: Lactose Intolerance Lidocaine (Lidocaine 4 % Patch Adh..Patch) 1 patch TRANSDERMA DAILY [facility]; Protocol Lisinopril (Lisinopril 5 Mg Tablet) 5 mg PO DAILY [facility]; Protocol Last Admin: 08/09/25 09:30 Dose: 5 mg Documented By: ANGEL Loperamide HCl (Loperamide Hcl 2 Mg Capsule) 2 mg PO Q8H PRN PRN Reason: Loose Stool Magnesium Hydroxide (Milk Of Magnesia 30 Ml Oral.Susp) 30 ml PO DAILY PRN PRN Reason: Constipation Melatonin (Melatonin 3 Mg Tablet) 6 mg PO BEDTIME PRN PRN Reason: Insomnia Last Admin: 08/08/25 21:30 Dose: 6 mg Documented By: KAREN Omeprazole (Omeprazole 20 Mg Capsule.) 20 mg PO BEDTIME [facility] Last Admin: 08/08/25 21:30 Dose: 20 mg Documented By: KAREN Propranolol HCl (Propranolol Hcl 20 Mg Tablet) 20 mg PO TID [facility]; Protocol Last Admin: 08/09/25 09:30 Dose: 20 mg Documented By: ANGEL Risperidone (Risperidone 3 Mg Tablet) 3 mg PO BID [facility] Last Admin: 08/09/25 09:30 Dose: 3 mg Documented By: ANGEL Sodium Chloride (0.9 % Sodium Chloride Flush 3 Ml Syringe) 3 ml IVFLUSH QSHIFT [facility] Last Admin: 08/09/25 09:30 Dose: 3 ml Documented By: ANGEL Vitamin D (Cholecalciferol (Vitamin D3) 25 Mcg Tablet) 25 mcg PO DAILY [facility] Last Admin: 08/09/25 09:30 Dose: 25 mcg Documented By: ANGEL Labs 08/09/25 08:36 08/09/25 08:36 Labs: Laboratory Results - last 24 hr 08/08/25 08/08/25 08/08/25 12:54 18:19 20:37 MCV 89.9 MCH 30.7 MCHC 34.2 RDW 12.0 Plt Count 86 L D MPV 9.0 L Immature Gran % (Auto) 1.8 H Neut % (Auto) 58.9 Lymph % (Auto) 29.4 Alcorn % (Auto) 8.6 Eos % (Auto) 0.8 Baso % (Auto) 0.5 Lymph # (Auto) 1.2 [place] # (Auto) 0.3 Eos # (Auto) 0.0 Baso # (Auto) 0.0 Abs Immat Gran (auto) 0.07 H Absolute Neuts (auto) 2.3 Absolute Nucleated RBC 0.000 Nucleated RBC % (auto) 0.0 Anion Gap 12 Estim Creat Clear Calc 105.7 Estimated GFR > 60 POC Glucose 167 H 173 H Random Glucose 101 Calcium 8.5 Magnesium 1.8 Total Bilirubin 0.4 AST 36 ALT 26 Alkaline Phosphatase 63 Troponin I High Sens 4.1 Total Protein 6.3 L Albumin 3.5 08/09/25 08/09/25 08/09/25 06:53 08:36 10:10 MCV 87.9 MCH 30.4 MCHC 34.6 RDW 11.9 Plt Count 101 L MPV 9.8 Immature Gran % (Auto) Neut % (Auto) Lymph % (Auto) [place] % (Auto) Eos % (Auto) Baso % (Auto) Lymph # (Auto) [place] # (Auto) Eos # (Auto) Baso # (Auto) Abs Immat Gran (auto) Absolute Neuts (auto) Absolute Nucleated RBC 0.000 Nucleated RBC % (auto) 0.0 Anion Gap 11 L Estim Creat Clear Calc 110.4 Estimated GFR > 60 POC Glucose 162 H Random Glucose 243 H Calcium 8.5 Magnesium Total Bilirubin AST ALT Alkaline Phosphatase Troponin I High Sens < 2.7 Total Protein Albumin 08/09/25 08/09/25 10:18 10:51 MCV MCH MCHC RDW Plt Count MPV Immature Gran % (Auto) Neut % (Auto) Lymph % (Auto) [place]corn % (Auto) Eos % (Auto) Baso % (Auto) Lymph # (Auto) [place] # (Auto) Eos # (Auto) Baso # (Auto) Abs Immat Gran (auto) Absolute Neuts (auto) Absolute Nucleated RBC Nucleated RBC % (auto) Anion Gap Estim Creat Clear Calc Estimated GFR POC Glucose 180 H 166 H Random Glucose Calcium Magnesium Total Bilirubin AST ALT Alkaline Phosphatase Troponin I High Sens Total Protein Albumin Assessment and Plan (1) Episode of unresponsiveness: Status: Acute Assessment and Plan: d2, 54yo wheelchair-bound M with cerebellar ataxia, seizure disorder, schizophrenia who was here for outpatient EGD but had LOC during IV insertion in pre-op area; thought to have lost pulse and got 2 rounds of chest compressions but was not on telemetry. Had ROSC without medications or shocks. Admitted for observation. unresponsiveness - still most likely vasovagal syncope though will also check EEG; no arrhythmias on telemetry and no EKG changes MSK chest pain - likely from chest compressions; lidocaine patch SI - will need Psychiatric eval prior to discharge thrombocytopenia: chronic, stable seizure disorder: Depakote, gabapentin hx atrial flutter: not on AC DM2: link-dose lispro, Jardiance HTN: lisinopril, hydralazine, propranolol schizophrenia: risperidone, clonidine HLD: statin asthma: albuterol, Breo morbid obesity: diet/exercise counseling VTE ppx: enoxaparin dispo: will need psych eval; comes from [facility] In my clinical judgment, the patient requires continued inpatient hospitalization for the following reasons: EEG Total time managing care of this patient today: 45 minutes. Quality Stroke Does the patient have a stroke diagnosis?: No VTE Prior VTE?: No VTE Risk Level:: Medical - moderate - high VTE Device Contraindication: Treatment Not Indicated VTE Drug Contraindication: N/A - Med Ordered
[2025-08-09] MEDS: Lidocaine 4 % Patch ADH..PATCH 1 PATCH TRANSDERMA (14:28)
[2025-08-09 14:56] LABS: Glucose, Whole Blood 143 mg/dL (60-115)
[2025-08-09 16:04] LABS: Glucose, Whole Blood 146 mg/dL (60-115)
[2025-08-09 20:08] LABS: Glucose, Whole Blood 161 mg/dL (60-115)
[2025-08-10] VITALS (7 sets, daily range): BP systolic 100–128; BP diastolic 52–70; PULSE 57–62; RESP 16–18; TEMP 36.1–37; O2SAT 95–99
[2025-08-10 06:59] LABS: Glucose, Whole Blood 186 mg/dL (60-115)
[2025-08-10] MEDS: Lidocaine 4 % Patch ADH..PATCH 1 PATCH TRANSDERMA (08:50)
[2025-08-10] MEDS: Ferrous Sulfate 324 MG TABLET.DR PO (08:50)
[2025-08-10] MEDS: 0.9 % Sodium Chloride Flush 3 ML SYRINGE IVFLUSH (08:50)
--- NOTE | 2025-08-10 09:14 | MHC.CARE ---
Patient was seen and cleared by CARE team. Patient does not meet inpatient level of care currently and is not in an acute crisis. Clinician spoke with shelter and patient?s sister who is his legal guardian and both report this is patients baseline level of functioning and they have no safety concerns.MD notified of disposition.
[2025-08-10 10:53] LABS: Glucose, Whole Blood 122 mg/dL (60-115)
--- NOTE | 2025-08-10 11:22 | MHC.CM.PN ---
Addendum entered by Laila Irving RN 08/10/25 11:47: CM RECEIVED CALL FROM DDS NURSE KAREN JONES UPDATED ON PT STATUS. Original Note: PT MEDICALLY CLEARED FOR DC BACK TO , [facility] [phone] FROM PT'S AWARE AND WILL ARRIVE AT [facility] 12PM TO BRING PT HOME, PT'S SISTER/GUARDIAN WOODROW ALSO CONTACTED AT NUMBER ON FILE AND IS ALSO AGREEABLE TO DC PLAN.
--- NOTE | 2025-08-10 11:52 | P.DS_ITS ---
DS: Providers Provider Date of Service: 08/10/25 Date of admission: 08/08/25 14:44 Date of discharge: 08/10/25 Primary care physician: Robert Sumner MD Consults: 08/09/25 19:10 Inpt CARE Team Crisis Consult Routine Comment: Reason for consultation: SI' medically cleared 08/10/25 07:59 Inpt CARE Team Crisis Consult Stat Comment: Reason for consultation: unresponsiveness, medically cleared [likely vasovagal + psyhcogneic] DS: Diagnosis Discharge Diagnosis (1) Episode of unresponsiveness: Status: Acute (2) Schizophrenia: Status: Acute (3) Mental and behavioral problem: Status: Acute (4) Morbid obesity: Status: Acute DS: Summary Hospital Course Hospital Course: From the history and physical by the admitting hospitalist, LEROY Mendoza, 08/08/25: 54-year-old man scheduled for endoscopy today but had episode of syncope. Patient was in PACU and while he was having an IV inserted he lost consciousness. Apparently the nursing staff had thought that he lost his pulse and they did 2 rounds of CPR. Patient at that time was not on telemetry, no medications were given and no MD/EMANUEL provider were present. In the ER, chest x-ray never to consolidation or effusion, normal potassium and magnesium, EKG without any acute abnormality, normal QTC, noted thrombocytopenia. Plan will be for patient to be placed on observation for monitoring of vasovagal syncope 54yo wheelchair-bound M with cerebellar ataxia, seizure disorder, schizophrenia who was here for outpatient EGD but had LOC during IV insertion in pre-op area; thought to have lost pulse and got 2 rounds of chest compressions but was not on telemetry. Had ROSC without medications or shocks. Admitted for observation. No arrhythmias on telemetry. EEG normal. Likely vasovagal syncope. Has some musculoskeletal chest pain from chest compressions; can use OTC acetaminophen or lidocaine to treat this. Expressed suicidal ideation but this is chronic per collateral history; he was seen by the behavioral health team and did not need inpatient psychiatric care. [facility] Time Attestation Discharge Coordination Time (in mins): 40 Quality: Safe Use of Opioids Does Pt have an Active Cancer Diagnosis on the Problem List?: No Quality: Stroke Does the patient have a stroke diagnosis?: No Physical Exam Vital Signs: Vital Signs: Last Vital Signs Temp 97.2 F 08/10/25 11:07 Pulse 58 08/10/25 11:07 Resp 18 08/10/25 11:07 BP 100/62 08/10/25 11:07 Pulse Ox 99 08/10/25 11:07 O2 Del Method Room Air 08/10/25 11:07 BMI result Body Mass Index 41.6 Gen: in no acute distress HEENT: strabismus, sclera anicteric, moist mucus membranes Neck: supple Lungs: clear to auscultation bilaterally Heart: regular rate and rhythm, no murmurs, mid-sternal tenderness Abd: soft, non-tender, non-distended, obese Ext: no edema Skin: warm/well-perfused Neuro: alert and oriented x3, no focal findings Psych: anxious DS: Data Data Completed and Pending Completed studies during hospitalization [Text1]: Laboratory Results WBC 4.8 X10*3/uL (4.8-10.8) 08/09/25 08:36 RBC 3.81 X10*6/uL (4.60-5.80) L 08/09/25 08:36 Hgb 11.6 g/dl (14.0-18.0) L 08/09/25 08:36 Hct 33.5 % (42.0-52.0) L 08/09/25 08:36 MCV 87.9 fL (80.0-98.0) 08/09/25 08:36 MCH 30.4 pg (27.0-33.0) 08/09/25 08:36 MCHC 34.6 g/dl (31.0-36.0) 08/09/25 08:36 RDW 11.9 % (11.0-16.0) 08/09/25 08:36 Plt Count 101 X10*3/uL (160-400) L 08/09/25 08:36 MPV 9.8 fL (9.4-12.4) 08/09/25 08:36 Immature Gran % (Auto) 1.8 % (0.0-0.4) H 08/08/25 12:54 Neut % (Auto) 58.9 % (45-73) 08/08/25 12:54 Lymph % (Auto) 29.4 % (20-40) 08/08/25 12:54 [place] % (Auto) 8.6 % (2-11) 08/08/25 12:54 Eos % (Auto) 0.8 % (0-4) 08/08/25 12:54 Baso % (Auto) 0.5 % (0-2) 08/08/25 12:54 Lymph # (Auto) 1.2 X10*3/uL (1.2-4.9) 08/08/25 12:54 [place] # (Auto) 0.3 X10*3/uL (0.1-1.2) 08/08/25 12:54 Eos # (Auto) 0.0 X10*3/uL (0.0-0.4) 08/08/25 12:54 Baso # (Auto) 0.0 X10*3/uL (0.0-0.2) 08/08/25 12:54 Abs Immat Gran (auto) 0.07 X10*3/uL (0.00-0.03) H 08/08/25 12:54 Absolute Neuts (auto) 2.3 x10*3/uL (2.0-8.3) 08/08/25 12:54 Absolute Nucleated RBC 0.000 X10*3/uL (0.0-0.012) 08/09/25 08:36 Nucleated RBC % (auto) 0.0 /100WBC (0.0-0.2) 08/09/25 08:36 Sodium 140 mmol/L (135-145) 08/09/25 08:36 Potassium 4.3 mmol/L (3.3-5.1) 08/09/25 08:36 Chloride 107 mmol/L (96-108) 08/09/25 08:36 Carbon Dioxide 26 mmol/L (22-29) 08/09/25 08:36 Anion Gap 11 (12-20) L 08/09/25 08:36 BUN 22 mg/dL (9-16) H 08/09/25 08:36 Creatinine 0.90 mg/dL (0.5-1.4) 08/09/25 08:36 Estim Creat Clear Calc 110.4 08/09/25 08:36 Estimated GFR > 60 08/09/25 08:36 POC Glucose 122 mg/dL (60-115) H 08/10/25 10:50 Random Glucose 243 mg/dL (60-115) H 08/09/25 08:36 Calcium 8.5 mg/dL (8.4-10.2) 08/09/25 08:36 Magnesium 1.8 mg/dL (1.6-2.6) 08/08/25 12:54 Total Bilirubin 0.4 mg/dL (0.0-1.0) 08/08/25 12:54 AST 36 U/L (5-37) 08/08/25 12:54 ALT 26 U/L (0-40) 08/08/25 12:54 Alkaline Phosphatase 63 U/L (39-117) 08/08/25 12:54 Troponin I High Sens < 2.7 ng/L (<3.5-35.0) 08/09/25 10:10 Total Protein 6.3 g/dL (6.5-8.0) L 08/08/25 12:54 Albumin 3.5 g/dL (3.5-5.0) 08/08/25 12:54 Impressions Chest X-Ray 08/08/25 13:17 IMPRESSION: No acute disease. Electronically signed by: Neo Bell MD 08/08/2025 01:31 PM EDT RP Discharge Plan Discharge Patient Disposition: Xfer Other Discharge Diagnosis: unresponsive episode, likely vasovagal Referrals: Robert Sumner MD [Primary Care Provider, Internal Medicine] - 1 Week Discharge Medications: Continued (DME) blood-glucose meter [Prodigy Autocode Monitor Syst] Misc See Rx Instructions .Route Qty: 1 0RF Rx Instructions: As directed fluticasone propionate [Flonase Allergy Relief] 50 mcg/actuation spray,suspension 1 spray intranasal BID Qty: 16 12RF Rx Instructions: administer into each nostril (DME) [id number] 10 XW 3 See Rx Instructions .Route .MEDSUPPLY Qty: 1 0RF Rx Instructions: As directed (DME) Heat Moldable shoe inserts See Rx Instructions .Route .MEDSUPPLY Qty: 2 0RF Rx Instructions: As directed (DME) Bilateral custom AFO See Rx Instructions .Route .MEDSUPPLY Qty: 2 0RF Rx Instructions: As directed fluoride (sodium) [PreviDent 5000 Booster Plus] 1.1 % paste 1 appl DENTAL BID Qty: 100 0RF (DME) DIABETIC SHOES/INSERTS See Rx Instructions .Route .MEDSUPPLY Qty: 1 1RF Rx Instructions: As directed ferrous sulfate 325 mg (65 mg iron) tablet 325 mg PO BID Qty: 180 2RF atorvastatin 10 mg tablet 10 mg PO BEDTIME Qty: 90 2RF (DME) alvarez.stocking,knee,reg,xlrg Misc See Rx Instructions .Route Qty: 12 0RF Rx Instructions: As directed 15-20 mm HG (DME) Adult briefs xlg See Rx Instructions .Route .MEDSUPPLY Qty: 300 11RF Rx Instructions: As directed (DME) wheelchair cushion See Rx Instructions .Route .MEDSUPPLY Qty: 1 0RF Rx Instructions: As directed fluticasone furoate-vilanterol [Breo Ellipta] 200-25 mcg/dose blister with device 1 inh inhalation DAILY Qty: 60 4RF Diafoods Thick-It Powder See Rx Instructions PO .COMPLEX 30 Days Qty: 850 12RF Rx Instructions: Add thick it powder to food and beverage using enclosed measuring spoon TID cyanocobalamin (vitamin B-12) 1,000 mcg tablet 1,000 mcg PO BEDTIME Qty: 90 0RF (DME) Matress for electric hospital bed See Rx Instructions .Route .MEDSUPPLY Qty: 1 0RF Rx Instructions: As directed (DME) Hospital Bed full electric with rails See Rx Instructions .Route .MEDSUPPLY Qty: 1 0RF Rx Instructions: As directed (DME) Prodigy No Coding Strip See Rx Instructions .Route Qty: 100 11RF Rx Instructions: As directed 2 times per day (DME) blood-glucose meter [OneTouch Ultra2 Meter] Misc See Rx Instructions .Route Qty: 1 0RF Rx Instructions: test once daily (DME) lancets [OneTouch UltraSoft 2 Lancet] 30 gauge misc See Rx Instructions .Route Qty: 100 5RF Rx Instructions: test once daily (DME) lancets [Prodigy Lancets] 28 gauge misc See Rx Instructions .Route Qty: 200 0RF Rx Instructions: As directed check BS twice a day (DME) lancing device [Prodigy Lancing Device] Misc See Rx Instructions .Route Qty: 1 0RF Rx Instructions: As directed esomeprazole magnesium [Nexium] 40 mg capsule,delayed release(DR/EC) 40 mg PO BEDTIME Qty: 28 2RF Jardiance 25 mg tablet 25 mg PO DAILY Qty: 30 2RF cholecalciferol (vitamin D3) 25 mcg (1,000 unit) tablet 25 mcg PO DAILY Qty: 30 2RF hydralazine 50 mg tablet 50 mg PO TID Qty: 90 2RF clonidine HCl 0.1 mg Tablet 0.1 mg PO BEDTIME PRN (Reason: Agitation) risperidone 3 mg tablet 3 mg PO BID divalproex 500 mg tablet extended release 24 hr 1,000 mg PO BID propranolol 20 mg tablet 20 mg PO TID dextromethorphan polistirex 30 mg/5 mL Suspension,Extended Rel 12 Hr 10 ml PO Q12H PRN (Reason: Cough) bismuth subsalicylate [Stomach Relief] 262 mg/15 mL Suspension 524 mg PO Q6H PRN (Reason: Diarrhea) Triple Antibiotic 3.5-400-5,000 hj-vhoi-iant ointment in packet 1 appl TOPICAL BID PRN (Reason: anti infection) lactase [Lactaid] 3,000 unit tablet 3,000 unit PO TIDWM PRN (Reason: Lactose Intolerance) Qty: 30 11RF Rx Instructions: take at the start of drinking milk only acetaminophen 325 mg tablet 650 mg PO Q4H PRN (Reason: fever or pain) 90 Days Qty: 180 2RF calcium carbonate 600 mg calcium (1,500 mg) tablet 600 mg PO DAILY Qty: 30 4RF gabapentin [Neurontin] 300 mg capsule 300 mg PO BID albuterol sulfate 90 mcg/actuation HFA aerosol inhaler 2 puff INHALATION Q6H PRN (Reason: Wheezing) Qty: 8.5 0RF lisinopril 5 mg tablet 5 mg PO DAILY Qty: 30 8RF loperamide 2 mg capsule 2 mg PO Q8H PRN (Reason: loose stool) triamcinolone acetonide 0.1 % paste 1 appl dental Q8H PRN (Reason: gum trauma/sores) ibuprofen 600 mg tablet 600 mg PO Q6H PRN (Reason: Pain) alum-mag hydroxide-simeth [Advanced Antacid-Antigas] 400-400-40 mg/5 mL suspension 5 ml PO Q6H PRN (Reason: Indigestion) fexofenadine-pseudoephedrine 180-240 mg tablet extended release 24 hr 1 tab PO QAM 10 Days Qty: 10 0RF Discharge Orders: Discharge Order (Routine); Ordered 08/10/25 Ordered By: Fahad Cunningham Diet: Advance to usual diet Activity on Discharge: As tolerated Stand Alone Forms: Patient Portal Discharge page Print Language: Georgian Care Plan Goals: resume usual care Health Concerns: unresponsive episode, likely vasovagal Plan of Treatment: no new cardiac or neurologic issue identified [facility] no med changes Please follow up with your primary care doctor within 1 week. Return to the hospital if you experience recurrent or worsening symptoms. Assessment: See Discharge Summary.
[2025-08-10] MEDS: Fluticasone/Vilanterol 200/25 BLST.W.DEV 1 PUFF INHALE (12:13)
== END 2025-08-10 12:52 | disposition other institution (70) ==
LOC: HO.ED 14:42 → HO.EDOVER 14:53 → HO.IMC 19:09
PROVIDERS: Admitting Provider Nurse Practitioner Acute Care; Emergency Provider Emergency Medicine; PCP Internal Medicine; Visit Provider Family Medicine
DX: R40.4 Transient alteration of awareness (principal); R42 Dizziness and giddiness; R07.9 Chest pain, unspecified; I48.92 Unspecified atrial flutter; J45.909 Unspecified asthma, uncomplicated; D69.6 Thrombocytopenia, unspecified; E78.5 Hyperlipidemia, unspecified; F20.9 Schizophrenia, unspecified; E66.01 Morbid (severe) obesity due to excess calories; Z68.41 Body mass index [BMI] 40.0-44.9, adult; Z79.899 Other long term (current) drug therapy; Z99.3 Dependence on wheelchair
CPT/HCPCS: 36415; 71045; 80048; 80053; 82947; 83735; 84484; 85025; 85027; 93005; 94640; 95816; 96372; 99222; 99285; J1650; S9485

== ENCOUNTER → 2025-08-08 13:12 | Outpatient (BNV) | payer MEDICARE, MEDICAID, SELFPAY | PROVIDERS: Emergency Provider Emergency Medicine; PCP Internal Medicine; Visit Provider Radiology Diagnostic Radiology | DX: R07.89 Other chest pain (principal) | CPT/HCPCS: 71045 ==

== ENCOUNTER 2025-08-08 14:44 | Outpatient (BNV) | payer MEDICARE, MEDICAID, SELFPAY | END 2025-08-09 14:15 | PROVIDERS: Admitting Provider Nurse Practitioner Acute Care; Emergency Provider Emergency Medicine; PCP Internal Medicine; Visit Provider Psychiatry & Neurology Neurology | DX: R41.82 Altered mental status, unspecified (principal) | CPT/HCPCS: 95816 ==

== ENCOUNTER 2025-08-08 14:44 | Outpatient (BNV) | payer MEDICARE, MEDICAID, SELFPAY | END 2025-08-09 10:20 | PROVIDERS: Admitting Provider Nurse Practitioner Acute Care; Emergency Provider Emergency Medicine; PCP Internal Medicine; Visit Provider Internal Medicine | DX: R40.20 Unspecified coma (principal) | CPT/HCPCS: 93010 ==

== ENCOUNTER → 2025-08-08 14:44 | Outpatient (BNV) | payer MEDICARE, MEDICAID, SELFPAY | PROVIDERS: Admitting Provider Nurse Practitioner Acute Care; Emergency Provider Emergency Medicine; PCP Internal Medicine; Visit Provider Nurse Practitioner Acute Care | DX: R40.4 Transient alteration of awareness (principal) | CPT/HCPCS: 99223; 99232; 99239 ==

== ENCOUNTER 2025-08-12 14:36 | Outpatient (AMB) | payer MEDICARE, MEDICAID, SELFPAY ==
--- OUTSIDE RECORDS SUMMARY | 2025-08-12 14:39 | XMS_ITS | Clinical Summary ---
Author Organization [facility] Address [address] [place] [phone] Phone Care Team Providers Care Waiter/Waitress Head Name Role Phone Robert Sumner MD Primary Care Provider [phone] Allergies Active Allergy Reactions Criticality Noted Date Comments Lactose 04/26/2022 intolerance Sulfa Antibiotics Other (see comments),Hives Medications albuterol HFA (Ventolin HFA) 108 (90 Base) MCG/ACT inhaler Acti ve atorvastatin (LIPITOR) 10 MG tablet Take 1 [...] each day Active Jardiance 25 MG tablet 4 Active loperamide (IMODIUM) 2 MG capsule 4 Active esomeprazole (NexIUM) [address] capsule Take 40 mg by mouth 1 (one) time each day before breakfast 4 Active lisinopril 5 MG tablet Take 5 mg by mouth 1 (one) time each day 5 Active Breo Ellipta 200-25 MCG/ACT aerosol powder 5 Active hydrALAZINE 50 MG tablet Take 1 tablet (50 mg total) by mouth in the morning and 1 tablet (50 mg total) in the evening and 1 tablet (50 mg total) before bedtime. 5 Active Active Problems Problem Noted Date Diagnosed [...] Office Visit [facility] [address] [phone] Frantz Luis MD Chronic kidney disease, stage 2 (mild) (Primary Dx); Hypertension 06/05/2025 Orders Only [facility] [address] [phone] Chana Schrader ARNP Chronic kidney disease, stage [...] [facility] [address] [phone] Chana Schrader ARNP [address] [phone] Health Maintenance Due Date Last [...] 2:46 PM EDT 06/29/2025 2:46 PM EDT us Chana Schrader [facility] LAB BLOOD ORDERABLES Final Result [place] See order comments [place] [address] * (ABNORMAL) PTH, Intact (06/29/2025 2:46 PM EDT) Parathyroid Hormone, Intact 146.3(H) 8.7 - 77.1 pg/mL See order comments 06/29/2025 2:46 PM EDT 06/29/2025 2:46 PM EDT Chana [facility] LAB HISTORICAL-CONVERSIONS- UNSOLICITED RESULTS Final Result [place] See order comments [place] [address] * (ABNORMAL) CBC and Differential (06/29/2025 2:46 [...] 2:46 PM EDT 06/29/2025 2:46 PM EDT [facility] LAB BLOOD ORDERABLES Final Result Performing Organization Address [facility] Phone [facility] See order comments [place] [address] * (ABNORMAL) BUN (06/29/2025 2:46 PM EDT) BUN 27(H) 9 - 16 mg/dL See order comments 06/29/2025 2:46 PM EDT 06/29/2025 2:46 PM EDT [facility] LAB BLOOD ORDERABLES Final Result Performing Organization Address [facility] Phone [facility] See order comments [place] [address] * Calcium (06/29/2025 2:46 PM EDT) Calcium 8.7 8.4 - 10.2 mg/dL See order comments 06/29/2025 2:46 PM EDT 06/29/2025 2:46 PM EDT [facility] LAB BLOOD ORDERABLES Final Result Performing Organization Address [facility] Phone Number [place] See order comments [place] [address] * Electrolyte panel (06/29/2025 2:46 PM EDT) Sodium 140 135 - 145 mmol/L See order comments Potassium 4.7 3.3 - 5.1 mmol/L See order comments Chloride 105 96 - 108 mmol/L See order comments Bicarbonate (CO2) 27 22 - 29 mmol/L See order comments Anion Gap 13 12 - 20 See order comments 06/29/2025 2:46 PM EDT 06/29/2025 2:46 PM EDT Result [facility]LOOD ORDERABLES Final Result Performing Organization Address [facility] Phone Number [place] See order comments [place] [address] * Urine Protein / creatinine ratio (06/29/2025 2:33 PM EDT) Protein Urine Random <7 <12 mg/dL See order comments Protein/Creatin ine Ratio, Urine TNP <0.2 See order comments Comment: Unable to calculate urine protein creatinine ratio due to low creatinine or protein result. Urine specimen (specimen) Urine specimen obtained by clean catch procedure / Unknown 06/29/2025 2:33 PM EDT 06/29/2025 2:33 PM EDT [facility] URINE ORDER[facility]LES Final Result Performing Organization Address [facility] de Phone Number [place] See order comments [place] [address] * Albumin, urine, random (06/29/2025 2:33 PM EDT) Creatinine, Urine 53.59 mg/dL Se e order comments Urine Microalbumin <5.0 mg/L See order comments Microalbumin/Crea tinine Ratio TNP <30 ug/mg cr See order comments Comment: Unable to calculate albumin/creatinine ratio due to low microalbumin or creatinine result. 06/29/2025 2:33 PM EDT 06/29/2025 2:33 PM EDT [facility] LAB URINE ORDERABLES Final Result Performing Organization Address [facility] de Phone Number [place] See order comments [place] [address] * (ABNORMAL) Urinalysis with microscopic (06/29/2025 2:33 PM EDT) Color Urine Yellow See orde r comments Appearance Urine Clear See order comments pH Urine 6.0 5.0 - 9.0 See order comments Glucose Urine >=1000(A) Negative mg/dL See order comments Blood, Urine Negative Negative See ord er comments Specific [place] Urine >=1.030(H) 1.005 - 1.025 See order [...] Chana [facility] LAB URINE ORDERABLES Final Result [place] See order comments [place] [address] from Last 3 Months Insurance Medicare Medicaid [place] Medicare Medicaid [place] Care Teams Waiter/Waitress Head Relationship Specialty Start Date End Date Robert Sumner MD [facility] [address] [place], [place] PCP - General 11/20/20
--- OUTSIDE RECORDS SUMMARY | 2025-08-12 14:39 | XMS_ITS | Clinical Summary ---
Author Organization [address] [facility] Address [address] [place] [address] Phone Care Team Providers Care Marketing/Sales Person Name Role Phone Robert Sumner MD Primary Care Provider [phone] Allergies Active Allergy Reactions Criticality Noted Date Comments Sulfa (Sulfonamide Antibiotics) 12/11 Medications No known medications Encounters Date Type Department Care Team Description 06/14/2025 10:30 AM EDT Office Visit Orthopedic Surgery [facility] [address] [facility] [address] [place] [phone] Jose Bonds, DPM Arthritis of left [...] Upcoming Encounters Date Type Department Care Team ([facility] st Contact Info) Description 09/14/2025 10:15 AM EST Office Visit Orthopedic Surgery - [place] [address] [facility] [address] [place] [phone] Jose Bonds, DPM [address] [facility] [address] [place] [address] Health Maintenance Due Date Last [...] 2025 , 08/25/2023, 08/31/2021, Additional history exists RSV Immunization Adult Patients (1 - 1-dose 75+ series) 2046 HIB Vaccines Aged Out No longer eligi [...] Documents on File Type Date Recorded 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
--- NOTE | 2025-08-12 14:56 | MHC.PC.OV ---
Vital Signs 08/12/25 15:01 Height 5 ft 5 in Blood Pressure Location Lt brachial Position Sitting Respiration 18 Pulse 64 Pulse Source Pulse Oximeter Temp 97.1 F Temp Source Temporal Artery Scan Pulse Oximetry (%) 98 Oxygen Delivery Method Room Air Intake Visit Reasons: [facility] 08/10 vasovagal episode Arts Education Teacher Required: No Accompanied by: Self / Same As Patient Allergies Sulfa (Sulfonamide Antibiotics) Allergy (Severe, Verified 08/12/25 15:05) CHAVEZ ALICIA REACTION trimethoprim Allergy (Mild, Verified 08/12/25 15:05) UNKNOWN lactose Adverse Reaction (Mild, Verified 08/12/25 15:05) STOMACH UPSET Tobacco use date assessed: 08/12/25 Dental Screening Dental Screen Date: 08/12/25 Did you have a dental visit in the last 12 months?: No Did you have a dental problem in the last 6 months where you did not have access to dental care?: No Was dental information given to patient?: No HPI HPI Comments History of Present Illness Details 54 y/o Male patient who presents to the clinic today for HDF. Pt accompanied with Staff Member from [facility]. Pt was previously with [employer]. PMHx Significant for wheelchair-bound M with cerebellar ataxia, seizure disorder, and schizophrenia. Patient was admitted to the [facility] on 08/08 - 08/10 for an evaluation of single episode of Syncope. Pt was scheduled for endoscopy where he had a single episode of syncope while he was having an IV inserted- he lost consciousness. Chest x-ray showed no consolidation or effusion - normal potassium and magnesium levels - EKG without any acute abnormality, and normal QTC. Today Pt expresses a desire to hurt his Room Mate and Staff members by Hanging and chocking. Reports he has been feeling this way for years now. He recently lost his Sister by Suicide and he feeling Sad. [facility] Medical History (Updated 08/12/25 @ 15:45 by Laurie Arellano NP) Syncope Vasovagal syncope Tinea cruris Leg swelling Atrial flutter Atrial fib/flutter, transient A-fib Arrhythmia Abnormal EKG Contusion of left ankle Annual physical exam Abdominal pain Back pain Positive colorectal cancer screening using Cologuard test Precordial chest pain Hospital discharge follow-up Chest pain Right ankle pain Musculoskeletal chest pain Left-sided chest pain Back pain Fall Dysphagia Acute kidney injury Gait instability Suicidal ideation COVID-19 Hypomagnesemia Diarrhea Abdominal pain Ankle pain, left Left ankle sprain Seizure disorder Hypertension Anxiety Hyponatremia Cerebellar ataxia Anemia Lactose intolerance Vertigo Asthma Mental disability Type 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 Proteinuria Hyperlipidemia LDL goal <100 Essential hypertension Surgical History Hx of surgical procedure (07/22/24) Hx of colonoscopy History of orchiectomy Family History Father Myocardial infarction CVD (cardiovascular disease) Diabetes mellitus Mother Diabetes mellitus HTN (hypertension) Brother In good health Sister In good health Social History Household Members: Other Household Members Other:: resides at Custodial. Housing: Other Housing Other:: senior living. Do you presently have visiting nurse or other home services: No (senior living.) 75 years or older and lives alone: No Alcohol intake: former 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 Patient Tobacco Use Status: Never used Tobacco Tobacco use type: Cigarette e-Cigarette/Vaping Use: Never Used Second Hand Smoke Exposure: No Advance Directives Date on File: 03/07/21 service: No Current occupational status: disabled Cognitive needs: Yes (walker) Hearing needs: No Vision needs: Yes (glasses) Questionnaire Thrive Questionnaire Date Thrive assessed: 04/01/25 I am a: Parent/Caregiver What is your living situation today?: I choose not to answer this question Within the past 12 months, did the food you bought not last and you didn't have the money to get more?: I choose not to answer this question Within the past 12 months, did you worry whether your food would run out before you got money to buy more?: I choose not to answer this question Do you have trouble paying for medicines?: No Do you have trouble getting transportation to medical appointments?: No Do you have trouble paying your heating and electricity bill?: No Do you have trouble taking care of your child, family member or friend?: No Do you have trouble with day-to-day activities such as bathing, preparing meals, shopping, managing finances, etc.?: No Are you currently unemployed and looking for a job?: I choose not to answer this question Are you interested in more education?: No Please select the resources that you would like help with: None Currently or been in a relationship where the following occur: I choose not to answer THRIVE Score: 0 CHANI-7 AMB Questionnaire CHANI-7 Date CHANI - 7 assessed: 11/12/24 Source: Developed by Drs. Wellington López, Monica Jackson, Ray Nguyen and colleagues, with an educational perez from [employer]. Review of Systems Const All systems reviewed & are unremarkable except as noted in HPI and below Physical exam (Primary Care) Vital Signs: Last Vital Signs Temp 97.1 F 08/12/25 15:01 Pulse 64 08/12/25 15:01 Resp 18 08/12/25 15:01 Pulse Ox 98 08/12/25 15:01 Oxygen Delivery Method Room Air 08/12/25 15:01 Tobacco/Smoking Status: Tobacco use Status Tobacco use date assessed 08/12/25 08/12/25 15:14 Patient Tobacco Use Status Never used Tobacco 08/12/25 14:57 Tobacco use type Cigarette 08/12/25 14:57 e-Cigarette/Vaping Use Never Used 08/12/25 14:57 Thrive Assessment: Date of Thrive Assessment Date Thrive assessed 04/01/25 08/12/25 14:57 Currently or been in a relationship where the following occur: I choose not to answer Const General: no acute distress Nutritional Appearance: obese Limitations: wheelchair Resp Effort & Inspection: normal respiratory effort Cardio Heart sounds: S1 normal heart sound present and S2 normal heart sound present Psych Speech and movement: Clear speech present Attitude: cooperative Thought content: Homicidality present (Reports desire and plan how to hurt others) and Hallucination(s) present auditory Insight: Poor insight present (Psych) Judgement: Poor judgement present (Psych) Coding Level of Care Code Est Pt Level 5 (91060) Diagnoses Syncope R55 Homicidal ideation R45.850 Time Spent (min) 20 Assessment & Plan Assessment & Plan (1) Syncope: Code(s): R55 - Syncope and collapse Category: Medical Plan: Resolved (2) Homicidal ideation: Code(s): R45.850 - Homicidal ideations Category: Medical Plan: Pt transferred to ED for further evaluation. Pt went peacefully escorted by Metallography Teacher. Discussed the case with PCP; Pt is well known for making these statements because he does not like his [employer] members. Pt has been using the Hospital to escape going back Home.
[2025-08-12 15:01] VITALS: PULSE 64; RESP 18; TEMP 36.2; O2SAT 98
== END 2025-08-12 15:54 | disposition home or self-care (01) ==
LOC: HO.HMCH 14:37
PROVIDERS: PCP Internal Medicine; Visit Provider Nurse Practitioner Family
DX: R55 Syncope and collapse (principal); R45.850 Homicidal ideations

== ENCOUNTER → 2025-08-12 14:36 | Outpatient (BNVA) | payer MEDICARE, MEDICAID, SELFPAY | PROVIDERS: PCP Internal Medicine; Visit Provider Nurse Practitioner Family | DX: R55 Syncope and collapse (principal); R45.850 Homicidal ideations; Z99.3 Dependence on wheelchair | CPT/HCPCS: 99212 ==

== ENCOUNTER 2025-09-08 14:44 | Emergency (ER) | payer MEDICARE, MEDICAID, SELFPAY ==
--- NOTE | ~2025-09-08 | XR_ITS ---
CLINICAL HISTORY: fall Chest Radiographs, AP Comparison: CR/SR - XR CHEST 1 VIEW - 08/08/25 13:17 EDT CR/SR - XR CHEST 2 VIEWS - 06/10/25 09:27 EDT CR/NC/SR - XR CHEST 1 VIEW - 03/09/25 10:34 EDT Findings: No cardiomegaly. Normal mediastinal contours. No pneumothorax. No opacity. No pleural effusion. No acute findings in the upper abdomen. No acute fracture. Impression: No acute findings. This document has been electronically signed by: Joie Ye MD on 09/08/2025 18:44:21
--- NOTE | ~2025-09-08 | XR_ITS ---
EXAMINATION: XR LUMBOSACRAL SPINE CLINICAL INFORMATION: fall COMPARISON: Previous x-ray October 2024 TECHNIQUE: Three views of the lumbosacral spine. FINDINGS: Limited lateral view due to body habitus and light film technique . Bone alignment is normal. No fracture or dislocation. Degenerative spondylosis and degenerative disc disease in the lower thoracic and upper lumbar spine. Lower lumbar spine facet arthritis. Atherosclerotic disease. Stable soft tissue calcification overlying the sacrum. XR/XR lumbar spine 2-3V IMPRESSION: Limited lateral view. No fracture or dislocation. Electronically signed by: Nicole Shen MD 09/08/2025 03:59 PM EDT
--- NOTE | ~2025-09-08 | XR_ITS ---
EXAMINATION: XR PELVIS CLINICAL INFORMATION: trauma COMPARISON: Lumbar spine x-rays, most recent from the same day, CT of the abdomen and pelvis most recent from 2020 and TECHNIQUE: AP view of the pelvis. FINDINGS: Bone alignment is normal. No fracture or dislocation. Normal joint spaces. Soft tissue calcifications in the pelvis similar to prior exams. When compared with CT these projects over the medial gluteal soft tissues overlying the sacrum. Soft tissues otherwise unremarkable. XR/XR pelvis 1-2V IMPRESSION: No fracture or dislocation. Electronically signed by: Nicole Shen MD 09/08/2025 03:57 PM EDT
[2025-09-08 14:55] VITALS: BP 103/60; BP 148/90; PULSE 72; PULSE 88; RESP 18; TEMP 36.6; O2SAT 98; O2SAT 99; BMI 45.8
--- NOTE | 2025-09-08 15:18 | ED.FALL ---
HPI - Fall General Chief Complaint: Fall Stated Complaint: FALL/BACK,DIZZY,BACK PAIN,BS/536 Time Seen by Provider: 09/08/25 15:12 Source: patient History of Present Illness HPI Narrative: This is 55 years old with developmental delayed who lives in a alf presented to the emergency department after a fall. He has a history of falls in the past. He has a history of psychotic disorder, bipolar, asthma, hypertension, development delay. Lives in a alf today the alf staff went to pick him up at the daycare and fell he is complaining of lower back pain no other injury MD complaint: fall Onset (ago): hour(s) (1) Fall from: standing Fall witnessed: yes, by living facility staff Place fall occurred: street Loss of consciousness: none Prolonged down time: no Symptoms prior to fall: none Context: tripped/slipped Related Data Home Medications ?Medication ?Instructions ?Recorded ?Confirmed divalproex 500 mg tablet,extended 1,000 mg PO BID 06/10/23 08/08/25 release 24 hr risperidone 3 mg tablet 3 mg PO BID 06/10/23 08/08/25 clonidine HCl 0.1 mg tablet 0.1 mg PO BEDTIME PRN Agitation 07/09/24 08/08/25 aluminum-mag hydroxide-simethicone 5 ml PO Q6H PRN Indigestion 05/06/25 08/08/25 400 mg-400 mg-40 mg/5 mL oral susp (Advanced Antacid-Antigas) ibuprofen 600 mg tablet 600 mg PO Q6H PRN Pain 05/06/25 08/08/25 triamcinolone acetonide 0.1 % 1 appl dental Q8H PRN gum 05/06/25 08/08/25 dental paste trauma/sores gabapentin 300 mg capsule 300 mg PO BID 06/09/25 08/08/25 (Neurontin) bismuth subsalicylate 262 mg/15 mL 524 mg PO Q6H PRN Diarrhea 08/08/25 08/08/25 oral suspension (Stomach Relief) neomycin-bacitracn Zn-polymyxn 3.5 1 appl topical BID PRN anti 08/08/25 08/08/25 mg-400 unit-5,000 unit top oint infection pkt (Triple Antibiotic) propranolol 20 mg tablet 20 mg PO TID 08/08/25 08/08/25 Previous Rx's ?Medication ?Instructions ?Recorded acetaminophen 325 mg tablet 650 mg (2 x 325 mg) PO Q4H PRN 02/04/24 fever or pain 90 days #180 tabs blood-glucose meter (Prodigy #1 ea 04/07/24 Autocode Blood Glucose Monitoring System) fluticasone propionate 50 1 spray intranasal BID #16 grams 06/17/24 mcg/actuation nasal spray,suspension (Flonase Allergy Relief) [id number] #1 ea 09/03/24 Bilateral custom AFO #2 ea 09/03/24 Heat Moldable shoe inserts #2 ea 09/03/24 fluoride (sodium) 1.1 % dental 1 appl dental BID #100 mL 10/13/24 paste (PreviDent 5000 Booster Plus) albuterol sulfate 90 mcg/actuation 2 puff inhalation Q6H PRN Wheezing 12/29/24 aerosol inhaler #8.5 grams DIABETIC SHOES/INSERTS #1 ea 01/10/25 atorvastatin 10 mg tablet 10 mg PO BEDTIME #90 tabs 02/21/25 ferrous sulfate 325 mg (65 mg 325 mg PO BID #180 tabs 02/21/25 iron) tablet alvarez.stocking,knee,reg,xlrg #12 ea 04/22/25 Adult briefs #300 ea 05/10/25 wheelchair cushion #1 ea 05/10/25 fluticasone furoate 200 1 inh inhalation DAILY #60 ea 05/30/25 mcg-vilanterol 25 mcg/dose inhalation powder (Breo Ellipta) fexofenadine-pseudoephedrine ER 1 tab PO QAM congestion 10 days 06/06/25 180 mg-240 mg tablet,ext.release #10 tabs 24 hr starch (thickening) (Diafoods See Rx Instructions PO .COMPLEX 30 06/13/25 Thick-It oral powder) days #850 grams calcium carbonate 600 mg PO DAILY #30 tabs 07/04/25 cyanocobalamin (vitamin B-12) 1,000 mcg PO BEDTIME #90 tabs 07/07/25 1,000 mcg tablet Hospital Bed full electric with #1 ea 07/25/25 rails [facility] for electric hospital bed #1 ea 07/25/25 blood sugar diagnostic (Prodigy No #100 ea 07/27/25 Coding strips) blood-glucose meter (OneTouch #1 ea 08/01/25 Ultra2 Meter) lancets 28 gauge (Prodigy Lancets) #200 ea 08/01/25 lancets 30 gauge (OneTouch #100 ea 08/01/25 UltraSoft 2 Lancet) lancing device (Prodigy Lancing #1 ea 08/01/25 Device) cholecalciferol (vitamin D3) 25 25 mcg PO DAILY #30 tabs 08/05/25 mcg (1,000 unit) tablet empagliflozin 25 mg tablet 25 mg PO DAILY #30 tabs 08/05/25 (Jardiance) esomeprazole magnesium 40 mg 40 mg PO BEDTIME #28 caps 08/05/25 capsule,delayed release (Nexium) hydralazine 50 mg tablet 50 mg PO TID #90 tabs 08/06/25 dextromethorphan polistirex 30 10 ml PO Q12H PRN Cough #89 mL 08/12/25 mg/5 mL oral susp ext.release 12hr lactase 3,000 unit tablet (Lactaid) 3,000 unit PO TIDWM PRN Lactose 08/12/25 Intolerance #30 tabs loperamide 2 mg capsule 2 mg PO Q8H PRN loose stool #30 08/12/25 caps lisinopril 5 mg tablet 5 mg PO DAILY #30 tabs 09/03/25 Allergies Allergy/AdvReac Type Severity Reaction Status Date / Time Sulfa (Sulfonamide Allergy Severe CHAVEZ Verified 09/08/25 15:02 Antibiotics) ALICIA REACTION trimethoprim Allergy Mild UNKNOWN Verified 09/08/25 15:02 lactose AdvReac Mild STOMACH Verified 09/08/25 15:02 UPSET Review of Systems Review of Systems: Reviewed [facility] Past Medical History Medical History (Updated 09/08/25 @ 15:24 by Pasquale Bond MD) Syncope Vasovagal syncope Tinea cruris Leg swelling Atrial flutter Atrial fib/flutter, transient A-fib Arrhythmia Abnormal EKG Contusion of left ankle Annual physical exam Abdominal pain Back pain Positive colorectal cancer screening using Cologuard test Precordial chest pain Hospital discharge follow-up Chest pain Right ankle pain Musculoskeletal chest pain Left-sided chest pain Back pain Fall Dysphagia Acute kidney injury Gait instability Suicidal ideation COVID-19 Hypomagnesemia Diarrhea Abdominal pain Ankle pain, left Left ankle sprain Seizure disorder Hypertension Anxiety Hyponatremia Cerebellar ataxia Anemia Lactose intolerance Vertigo Asthma Mental disability Type 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 Proteinuria Hyperlipidemia LDL goal <100 Essential hypertension Surgical History (Updated 08/18/25 @ 00:02 by Nadia Coffman) Hx of surgical procedure (07/22/24) Hx of colonoscopy History of orchiectomy Family History Family History Father Myocardial infarction CVD (cardiovascular disease) Diabetes mellitus Mother Diabetes mellitus HTN (hypertension) Brother In good health Sister In good health Social History Social History Household Members: Other Household Members Other:: resides at Snf. Housing: Other Housing Other:: alf. Do you presently have visiting nurse or other home services: No (alf.) Alcohol intake: former 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 Patient Tobacco Use Status: Never used Tobacco Tobacco use type: Cigarette e-Cigarette/Vaping Use: Never Used Second Hand Smoke Exposure: No Advance Directives: Yes Advance Directives on File: Yes Advance Directives Date on File: 03/07/21 service: No Current occupational status: disabled Cognitive needs: Yes (walker) Hearing needs: No Vision needs: Yes (glasses) Physical Exam Exam: Exam: No acute distress his vital signs are stable reviewed by me Vital Signs: Vital Signs: Last Vital Signs Temp 97.7 F 09/08/25 17:51 Pulse 66 09/08/25 17:51 Resp 18 09/08/25 17:51 BP 109/60 09/08/25 17:51 Pulse Ox 98 09/08/25 17:51 O2 Del Method Room Air 09/08/25 17:51 BMI result Body Mass Index 45.8 Const: General: cooperative Nutritional Appearance: well nourished HEENT: Head: Yes normal to inspection General nose exam: Normal external nose present Face and sinus: Yes normal facial exam Mouth: Normal oral and palatal mucosa present Throat: Yes posterior oropharynx normal Neck: Neck: Yes normal visual inspection Resp: Effort & Inspection: normal respiratory effort Auscultation: clear to auscultation bilaterally Cardio: Jugular venous distension: no JVD Rhythm: regular rhythm GI: Inspection: Yes normal to inspection Percussion: Yes normal to percussion Back/Spine/Pelvis: Other: Tenderness in the LS spine Skin: General skin exam: no rashes or lesions noted and elasticity normal Neuro: Other: No focal deficits Cranial nerves: Yes CN's II-XII intact bilaterally Course Reevaluation(s) Reevaluation #1: signed out to Dr Rod flores pending Time: 16:09 Medications Administered Discontinued Medications Generic Name Dose Route Start Last Admin Trade Name Freq PRN Reason Stop Dose Admin Acetaminophen 975 mg 09/08/25 15:16 09/08/25 16:10 Acetaminophen 325 Mg Tablet PO 09/08/25 15:17 975 mg ONCE ONE Administration Hydralazine HCl 50 mg 09/08/25 16:19 09/08/25 17:45 Hydralazine Hcl 50 Mg Tablet PO 09/08/25 16:20 50 mg ONCE ONE Administration Protocol Medical Decision Making Medical Decision Making [facility] Narrative: Patient presented after a fall complaining of lower back pain we will obtain imaging Patient was signed out to me pending x-ray. Lumbar x-ray is negative. Chest x-ray is negative. No sign of fracture on pelvis x-ray. During his stay here. Patient was complaining of some chest pain. EKG was obtained. Troponin was obtained. No sign of acute abnormality. I have low suspicion for ischemic chest pain for the patient. Discharge patient at this time. We will plan to to discharge him back to alf. Differential Diagnosis Differential Diagnoses: The differential diagnosis associated with the presentation includes Spinal fracture/contusion Lab Data 09/08/25 17:57 09/08/25 17:57 Labs: Lab Results 09/08/25 Range/Units 17:57 WBC 5.1 (4.8-10.8) X10*3/uL RBC 4.20 L (4.60-5.80) X10*6/uL Hgb 12.8 L (14.0-18.0) g/dl Hct 38.4 L (42.0-52.0) % MCV 91.4 (80.0-98.0) fL MCH 30.5 (27.0-33.0) pg MCHC 33.3 (31.0-36.0) g/dl RDW 12.6 (11.0-16.0) % Plt Count 100 L (160-400) X10*3/uL MPV 9.8 (9.4-12.4) fL Immature Gran % (Auto) 1.2 H (0.0-0.4) % Neut % (Auto) 52.6 (45-73) % Lymph % (Auto) 35.1 (20-40) % [place] % (Auto) 9.7 (2-11) % Eos % (Auto) 1.0 (0-4) % Baso % (Auto) 0.4 (0-2) % Lymph # (Auto) 1.8 (1.2-4.9) X10*3/uL [place] # (Auto) 0.5 (0.1-1.2) X10*3/uL Eos # (Auto) 0.1 (0.0-0.4) X10*3/uL Baso # (Auto) 0.0 (0.0-0.2) X10*3/uL Abs Immat Gran (auto) 0.06 H (0.00-0.03) X10*3/uL Absolute Neuts (auto) 2.7 (2.0-8.3) x10*3/uL Absolute Nucleated RBC 0.000 (0.0-0.012) X10*3/uL Nucleated RBC % (auto) 0.0 (0.0-0.2) /100WBC Sodium 139 (135-145) mmol/L Potassium 5.0 (3.3-5.1) mmol/L Chloride 105 (96-108) mmol/L Carbon Dioxide 28 (22-29) mmol/L Anion Gap 11 L (12-20) BUN 23 H (9-16) mg/dL Creatinine 1.13 (0.5-1.4) mg/dL Estim Creat Clear Calc 91.7 Estimated GFR > 60 Random Glucose 239 H (60-115) mg/dL Calcium 9.1 D (8.4-10.2) mg/dL Troponin I High Sens < 2.7 (<3.5-35.0) ng/L Discharge Plan Discharge Clinical Impression: Fall Qualifiers: Encounter type: initial encounter Qualified Code(s): W19.XXXA - Unspecified fall, initial encounter Back contusion Qualifiers: Encounter type: initial encounter Laterality: unspecified laterality Qualified Code(s): S20.229A - Contusion of unspecified back wall of thorax, initial encounter Patient Disposition: Home, Self-Care Prescriptions: No Action (DME) blood-glucose meter [Prodigy Autocode Monitor Syst] Misc See Rx Instructions .Route Qty: 1 0RF Rx Instructions: As directed fluticasone propionate [Flonase Allergy Relief] 50 mcg/actuation spray,suspension 1 spray intranasal BID Qty: 16 12RF Rx Instructions: administer into each nostril (DME) [id number] 10 XW 3 See Rx Instructions .Route .MEDSUPPLY Qty: 1 0RF Rx Instructions: As directed (DME) Heat Moldable shoe inserts See Rx Instructions .Route .MEDSUPPLY Qty: 2 0RF Rx Instructions: As directed (DME) Bilateral custom AFO See Rx Instructions .Route .MEDSUPPLY Qty: 2 0RF Rx Instructions: As directed fluoride (sodium) [PreviDent 5000 Booster Plus] 1.1 % paste 1 appl DENTAL BID Qty: 100 0RF (DME) DIABETIC SHOES/INSERTS See Rx Instructions .Route .MEDSUPPLY Qty: 1 1RF Rx Instructions: As directed ferrous sulfate 325 mg (65 mg iron) tablet 325 mg PO BID Qty: 180 2RF atorvastatin 10 mg tablet 10 mg PO BEDTIME Qty: 90 2RF (DME) alvarez.stocking,knee,reg,xlrg Misc See Rx Instructions .Route Qty: 12 0RF Rx Instructions: As directed 15-20 mm HG (DME) Adult briefs xlg See Rx Instructions .Route .MEDSUPPLY Qty: 300 11RF Rx Instructions: As directed (DME) wheelchair cushion See Rx Instructions .Route .MEDSUPPLY Qty: 1 0RF Rx Instructions: As directed fluticasone furoate-vilanterol [Breo Ellipta] 200-25 mcg/dose blister with device 1 inh inhalation DAILY Qty: 60 4RF Diafoods Thick-It Powder See Rx Instructions PO .COMPLEX 30 Days Qty: 850 12RF Rx Instructions: Add thick it powder to food and beverage using enclosed measuring spoon TID cyanocobalamin (vitamin B-12) 1,000 mcg tablet 1,000 mcg PO BEDTIME Qty: 90 0RF (DME) [facility] for electric hospital bed See Rx Instructions .Route .MEDSUPPLY Qty: 1 0RF Rx Instructions: As directed (DME) Hospital Bed full electric with rails See Rx Instructions .Route .MEDSUPPLY Qty: 1 0RF Rx Instructions: As directed (DME) Prodigy No Coding Strip See Rx Instructions .Route Qty: 100 11RF Rx Instructions: As directed 2 times per day (DME) blood-glucose meter [OneTouch Ultra2 Meter] [facility] See Rx Instructions .Route Qty: 1 0RF Rx Instructions: test once daily (DME) lancets [OneTouch UltraSoft 2 Lancet] 30 gauge misc See Rx Instructions .Route Qty: 100 5RF Rx Instructions: test once daily (DME) lancets [Prodigy Lancets] 28 gauge misc See Rx Instructions .Route Qty: 200 0RF Rx Instructions: As directed check BS twice a day (DME) lancing device [Prodigy Lancing Device] Mis See Rx Instructions .Route Qty: 1 0RF Rx Instructions: As directed esomeprazole magnesium [Nexium] 40 mg capsule,delayed release(DR/EC) 40 mg PO BEDTIME Qty: 28 2RF Jardiance 25 mg tablet 25 mg PO DAILY Qty: 30 2RF cholecalciferol (vitamin D3) 25 mcg (1,000 unit) tablet 25 mcg PO DAILY Qty: 30 2RF hydralazine 50 mg tablet 50 mg PO TID Qty: 90 2RF lactase [Lactaid] 3,000 unit tablet 3,000 unit PO TIDWM PRN (Reason: Lactose Intolerance) Qty: 30 11RF Rx Instructions: take at the start of drinking milk only loperamide 2 mg capsule 2 mg PO Q8H PRN (Reason: loose stool) Qty: 30 0RF dextromethorphan polistirex 30 mg/5 mL suspension,extended rel 12 hr 10 ml PO Q12H PRN (Reason: Cough) Qty: 89 0RF lisinopril 5 mg tablet 5 mg PO DAILY Qty: 30 8RF clonidine HCl 0.1 mg Tablet 0.1 mg PO BEDTIME PRN (Reason: Agitation) risperidone 3 mg tablet 3 mg PO BID divalproex 500 mg tablet extended release 24 hr 1,000 mg PO BID propranolol 20 mg tablet 20 mg PO TID bismuth subsalicylate [Stomach Relief] 262 mg/15 mL Suspension 524 mg PO Q6H PRN (Reason: Diarrhea) Triple Antibiotic 3.5-400-5,000 [id number] ointment in packet 1 appl TOPICAL BID PRN (Reason: anti infection) acetaminophen 325 mg tablet 650 mg PO Q4H PRN (Reason: fever or pain) 90 Days Qty: 180 2RF calcium carbonate 600 mg calcium (1,500 mg) tablet 600 mg PO DAILY Qty: 30 4RF gabapentin [Neurontin] 300 mg capsule 300 mg PO BID albuterol sulfate 90 mcg/actuation HFA aerosol inhaler 2 puff INHALATION Q6H PRN (Reason: Wheezing) Qty: 8.5 0RF triamcinolone acetonide 0.1 % paste 1 appl dental Q8H PRN (Reason: gum trauma/sores) ibuprofen 600 mg tablet 600 mg PO Q6H PRN (Reason: Pain) alum-mag hydroxide-simeth [Advanced Antacid-Antigas] 400-400-40 mg/5 mL suspension 5 ml PO Q6H PRN (Reason: Indigestion) fexofenadine-pseudoephedrine 180-240 mg tablet extended release 24 hr 1 tab PO QAM 10 Days Qty: 10 0RF Print Language: Hungarian
[2025-09-08 16:29] VITALS: BP 112/73; PULSE 89; RESP 20; TEMP 36.7; O2SAT 95
--- NOTE | 2025-09-08 17:27 | ECG_ITS ---
Test Reason : CHEST PAIN Blood Pressure : */* mmHG Vent. Rate : 66 BPM Atrial Rate : 66 BPM P-R Int : 188 ms QRS Dur : 86 ms QT Int : 420 ms P-R-T Axes : 22 -13 35 degrees QTcB Int : 440 ms Artifact in tracing Undetermined rhythm - in lead 2, suggesting sinus. Low voltage QRS Nonspecific ST abnormality Abnormal ECG When compared with ECG of 09-Aug-2025 10:20, Due to artifact, cannot compare Referred By: Judy Velasco Electronically Signed By: AP MONTGOMERY
[2025-09-08 17:45] VITALS: BP 109/60
[2025-09-08 17:51] VITALS: BP 109/60; PULSE 66; RESP 18; TEMP 36.5; O2SAT 98
--- OUTSIDE RECORDS SUMMARY | 2025-09-08 18:03 | XMS_ITS | Clinical Summary ---
Author Organization [address] [facility] Address [address] [place] [address] Phone Care Team Providers Care Resource Engineer Name Role Phone Robert Sumner MD Primary Care Provider [phone] Allergies Active Allergy Reactions Criticality Noted Date Comments Sulfa (Sulfonamide Antibiotics) 12/11 Medications No known medications Encounters Date Type Department Care Team Description 06/14/2025 10:30 AM EDT Office Visit Orthopedic Surgery [facility] [address] [facility] [address] [place] [id number] Jose Bonds, DPM Arthritis of left [...] Upcoming Encounters Date Type Department Care Team ([facility] st Contact Info) Description 09/14/2025 10:15 AM EST Office Visit Orthopedic Surgery - [place] [address] [place] [address] [place] [id number] Jose Bonds, DPBre [address] [place] [phone] Health Maintenance Due Date Last Done Comments Diabetes: Annual GFR (Glomerular Filtration Rate) 1971 Diabetes: Annual Foot Exam 1981 Diabetes: Annual Retina Eye Exam 1981 DTaP,Tdap,and Td Vaccines (1 - Tdap) 1990 Hepatitis B Vaccines (1 of 3 - 19+ 3-dose series) 1990 Pneumococcal Vaccine: 50+ Years (2 of 2 - PCV) 02/18/2019 02/18/2018 RSV Immunization Adult Patients (1 - Risk 50-74 years 1-dose series) 2021 Zoster Vaccines (1 of 2) 2021 [...] Documents on File Type Date Recorded Patient Sports Medicine Physician Expl anation Health Care Decision (hx) 12/11/2020 AD VELASQUEZ DIRECTIVE Health Care Decision (hx) 12/11/2020 AD VELASQUEZ DIRECTIVE Health Care Decision (hx) 12/11/2020 AD VELASQUEZ DIRECTIVE Health Care Decision (hx) 12/11/2020 AD VELASQUEZ DIRECTIVE Care Teams Resource Engineer Relationship Specialty Start Date End Date Robert Sumner MD [address] [place] [address] [address] [facility] [place] [address] PCP - General Internal Medicine 11/15/24
--- OUTSIDE RECORDS SUMMARY | 2025-09-08 18:03 | XMS_ITS | Data Portability ---
Author Organization [facility]ANK[facility] [address] Address [address] [place] [address] Assessment No assessment recorded. Plan of Treatment Reminders Order Date Submit Date Provider Last Modified By Organization Details Last Modified Time Details Appointments None recorde d. Lab glucose , fingers tick, blood 023 11/19/19 [email or web address] [facility], [address] [place] [address], [id number], 11:50:35 Referral None recorde d. Procedures None recorde d. Surgeries None recorde d. Imaging XR, foot, 3 or more view 023 11/19/19 NATALIE [facility], [address] [place] [address], [address], 3 12:55:32 Medication Orders None recorde d. Patient TargetsNo targets recorded. Patient InstructionsNo instructions recorded. Reason for Referral None Reported. Results Created Date Observation Date Name Description Value Unit Range Abnormal Flag Note LastModifiedBy Organization Detail LastModifiedTime 11/19/1911/19/2022 gluco se, finge rstic k, blood blood sugar - non fasting mg/dL 80-140 = normal Not Available [address], [address], 11/19/2022 11:31:33 11/19/19 23 11/19/2022 gluco se, finge rstic k, blood blood sugar - fasting 193 mg/dL 80-125 = normal Not Available [id number] [place] [address] [address] [facility], [place], [address], 11/19/2022 11:31:33 11/19/19 23 11/19/2022 XR, foot, 3 or more view No observ ation record ed. [email or web address] [facility] [address] [facility] [place], [address], 11/20/2022 08:27:39 Result Notes None recorded. Problems Name Problem SNOMED Code Status Onset Date Resolution Date Notes Provider Name and Address Organization Details Recorded Time Hypertensive disorder 92742227 Active 2022 ZANA CHARLTON null, PA - [facility] 3 11:28:03 Asthma 666661444 Active 2022 ZANA CHARLTON null, PA - [facility] 3 11:28:13 Hyperlipidemia 48071155 Active 2022 ZANA CHARLTON null, PA - [facility] 3 11:29:19 Cobalamin deficiency 911711189 Active 2022 ZANA CHARLTON null, PA - [facility] 3 11:30:02 Diabetes mellitus 03297255 Active 2022 ZANA CHARLTON null, PA - [facility] 3 11:30:11 Gastroesophage al reflux disease 401772933 Active 2022 AZNA CHARLTON null, PA - [facility] 3 11:30:43 Anemia 672510949 Active 2022 ZANA CHARLTON null, PA - [facility] 3 11:30:50 Hyponatremia 15748478 Active 2022 ZANA CHARLTON null, PA - [facility] 3 11:31:05 Problem Notes None recorded. Medical Equipment None Reported. Allergies Allergen ID Allergen Name Allergen Category Reaction Reaction Severity Criticality Documentation Date Start Date Code Code System Note Provider Name and Address Organization Details Recorded Time 462839 Substance with sulfonami de structure and antibacte rial mechanism of action (substanc e) medicatio n hives Not available Not available 11/19/2022 61201 8003 SNOMED PANKAJ Med[place] - [facility] [...] Updated DateTime 3 165.1 cm 43.9 kg/m2 927554. 39 g 10 18 /min 100 % 100 % 76 /min 97.5 [degF] 157/85 mm[Hg] ZANA CHARLTON PA - [facility] 3 11:19:22 Social History Question Answer Notes LastModified by Typeform Details LastModified Time Tobacco Smoking Status Never Smoker ZANA ZOTLAN tyler PA - [facility] 11/19/2022 11:18:12 Have You Recently Traveled Abroad? No Information not available 11/19/2022 Sex: Unknown Functional Status Question Answer Note LastModified by Typeform Details LastModified Time Do you use any illicit or recreational drugs? No Information not available 11/19/2022 Do you or have you ever used any other forms of tobacco or nicotine? No [email or web address] Information not available 11/19/2022 What is your level of alcohol consumption? None [email or web address] Information not available 11/19/2022 Mental Status None recorded. Family History Relationship Description Onset Age of this Age Resolved Age Notes LastModified by Organization Details LastModified Time Father No current problems or disability [email or web address] Not available 11/19 11:17:55 Mother No current problems or disability [email or web address] Not available 11/19 11:17:55 Medical History No medical history recorded. Past Encounters Encounter ID Performer Location Encounter Start Date Encounter Closed Date Diagnosis/Indication Diagnosis SNOMED-CT Code Diagnosis ICD10 Code Diagnosis IMO Codes Diagnosis Note [id number] [address] [facility] [address] [place] [address] 11/11/2017 12:27:03 11/11/2017 14:11:50 [id number] [address] [address] [place] [address] 07/16/2019 09:34:06 07/16/2019 10:03:[id number] [place] [address] 12/30/2019 18:13:51 12/30/2019 19:22:33 [id number] [address] [place] [address] 05/10/2022 10:31:31 05/10/2022 12:37:38 [id number] [address] [place] [address] 09/24/2019 18:43:51 09/24/2019 19:35:54 [id number] [address] [place] [address] 10/02/2019 17:34:39 10/02/2019 17:59:04 [id number] [address] [place] [address] 03/31/2021 12:12:43 03/31/2021 13:12:15 [id number] [address] [place] [address] 04/18/2021 16:40:29 04/18/2021 17:49:54 [id number] [address] [place] [address] 11/20/2019 12:14:41 11/20/2019 13:14:49 [id number] Ag Lara MD [address] [place] [address] 11/19/2022 11:04:24 11/19/2022 12:41:23 Pain in left foot [id number] 74729 M79.672 Imaging did not indicate acute fracture [...] today and the radiology interpreta tion. Dizziness 898003677 R42 Vital stable. Suicidal thoughts 264526 6 R45.851 Patient has SI and HI [...] MEDIC[place] B[place]: [place] Raulito Zepeda [id number] Raulito Zepeda 12/30/2022 2 [place] [facility] Raulito Zepeda [id number] Raulito Zepeda 11/19/2022 NORIDIAN - SPECIALITY CLAIMS ([facility]ICARE [facility] A) Raulito Zepeda [id number] Raulito Zepeda Notes Date Note Type Note Provider Name and Address Organization Details Recorded Time 11/19/2022 text/html Foot / AnkleRepo rted by PatientPatient caught foot under hist recliner and is [...] himself or someone else. Ag Lara MD [address] [place], [place] [address]J[place], [address], PA - [facility] 11/19/2022 13:08:30
--- OUTSIDE RECORDS SUMMARY | 2025-09-08 18:03 | XMS_ITS | Clinical Summary ---
Author Organization [facility] Address [address] [place] [address] Phone Care Team Providers Care Exhibits Curator Name Role Phone Robert Sumner MD Primary Care Provider [phone] Allergies Active Allergy Reactions Criticality Noted Date [...] Office Visit [facility] [address] [address] Frantz Luis MD Chronic kidney disease, stage 2 (mild) (Primary Dx); Hypertension from Last 3 Months Family History [...] Office Visit [facility] [address] [address] Chana Schrader ARNP [address] [address] Health Maintenance Due Date Last [...] 2:46 PM EDT 06/29/2025 2:46 PM EDT [facility] BLOOD ORDERABLES Final Result [place] See order comments [place] [address] * (ABNORMAL) PTH, Intact (06/29/2025 2:46 PM EDT) Parathyroid Hormone, Intact 146.3(H) 8.7 - 77.1 pg/mL See order comments 06/29/2025 2:46 PM EDT 06/29/2025 2:46 PM EDT [facility] HISTORICAL-CONVERSIONS- UNSOLICITED RESULTS Final Result [place] See order comments [place] [address] * (ABNORMAL) CBC and Differential (06/29/2025 2:46 [...] 2:46 PM EDT 06/29/2025 2:46 PM EDT [facility] LAB BLOOD ORDERABLES Final Result Performing Organization Address [facility] de Phone Number [place] See order comments [place] [address] * (ABNORMAL) BUN (06/29/2025 2:46 PM EDT) BUN 27(H) 9 - 16 mg/dL See order comments 06/29/2025 2:46 PM EDT 06/29/2025 2:46 PM EDT [facility] LAB BLOOD ORDERABLES Final Result Performing Organization Address [facility] Phone Number [place] See order comments [place] [address] * Calcium (06/29/2025 2:46 PM EDT) Calcium 8.7 8.4 - 10.2 mg/dL See order comments 06/29/2025 2:46 PM EDT 06/29/2025 2:[address] [facility] LAB BLOOD ORDERABLES Final Result Performing Organization Address [facility] de Phone Number [place] See order comments [place] [address] * Electrolyte panel (06/29/2025 2:46 PM EDT) Sodium 140 135 - 145 mmol/L See order comments Potassium 4.7 3.3 - 5.1 mmol/L See order comments Chloride 105 96 - 108 mmol/L See order comments Bicarbonate (CO2) 27 22 - 29 mmol/L See order comments Anion Gap 13 12 - 20 See order comments 06/29/2025 2:46 PM EDT 06/29/2025 2:46 PM EDT [facility] LAB BLOOD ORDERABLES Final Result Performing Organization Address [facility] de Phone Number [place] See order comments [place] [address] * Urine Protein / creatinine ratio (06/29/2025 [...] PM EDT 06/29/2025 2:33 PM EDT [facility] LAB URINE ORDERABLES Final Result Performing Organization Address [facility] Phone Number [place] See order comments [place] [address] * Albumin, urine, random (06/29/2025 2:33 PM EDT) Creatinine, Urine 53.59 mg/dL Se e order comments Urine Microalbumin <5.0 mg/L See order comments Microalbumin/Crea tinine Ratio TNP <30 ug/mg cr See order comments Comment: Unable to calculate albumin/creatinine ratio due to low microalbumin or creatinine result. 06/29/2025 2:33 PM EDT 06/29/2025 2:33 PM EDT [facility] LAB URINE ORDERABLES Final Result Performing Organization Address [facility] de Phone Number [place] See order comments [place] [address] * (ABNORMAL) Urinalysis with microscopic (06/29/2025 2:33 PM EDT) Color Urine Yellow See orde r comments Appearance Urine Clear See order comments pH Urine 6.0 5.0 - 9.0 See order comments Glucose Urine >=1000(A) Negative mg/dL See order comments Blood, Urine Negative Negative See ord er comments Specific [place] Urine >=1.030(H) 1.005 - 1.025 See order [...] [facility] LAB URINE ORDERABLES Final Result [place] See order comments [place] [address] from Last 3 Months Insurance Medicare Medicaid [place] Medicare Medicaid [place] Care Teams Exhibits Curator Relationship Specialty Start Date End Date Robert Sumner MD [facility] [place] [address] [place], [place] PCP - General 11/20/20
[2025-09-08 18:04] LABS: MANUAL DIFF FLAG NO
[2025-09-08 18:05] LABS: Hemoglobin 12.8 g/dl (14.0-18.0); NRBC Abs Auto 0.000 X10*3/uL (0.0-0.012); NRBC Pct Auto 0.0 /100WBC (0.0-0.2); PLT CLUMP 1; SCAN SMEAR FLAG 1
[2025-09-08 18:06] LABS: Hematocrit 38.4 % (42.0-52.0); Imm Gran Abs Auto 0.06 X10*3/uL (0.00-0.03); Imm Gran Pct Auto 1.2 % (0.0-0.4); Lymphocytes Absolute Auto 1.8 X10*3/uL (1.2-4.9); Mean Corpuscular HGB Conc 33.3 g/dl (31.0-36.0); Mean Corpuscular Hemoglobin 30.5 pg (27.0-33.0); Mean Corpuscular Volume 91.4 fL (80.0-98.0); Red Blood Count 4.20 X10*6/uL (4.60-5.80)
[2025-09-08 18:09] LABS: Platelet Count 100 X10*3/uL (160-400); White Blood Count 5.1 X10*3/uL (4.8-10.8)
[2025-09-08 18:16] LABS: Anion Gap 11 (12-20); Blood Urea Nitrogen 23 mg/dL (9-16); Calcium 9.1 mg/dL (8.4-10.2); Carbon Dioxide 28 mmol/L (22-29); Chloride 105 mmol/L (96-108); Creatinine Clr Calc Pharmacy 91.7; Estimated Glomerular Filt Rate > 60; Potassium 5.0 mmol/L (3.3-5.1); Sodium 139 mmol/L (135-145)
[2025-09-08 18:26] LABS: Troponin-I High Sensitivity < 2.7 ng/L (<3.5-35.0)
--- NOTE | 2025-09-08 18:29 | PC.NURSE ---
Followed up with pharmacy regarding delay in receiving Valproic Acid 1000mg. Stated we're already aware, we're working on it . Will medicate upon receipt of medication.
[2025-09-08 19:49] VITALS: BP 114/67; PULSE 76; RESP 12; TEMP 36.4; O2SAT 99
[2025-09-09 09:38] LABS: Glucose, Whole Blood 304 mg/dL (60-115)
== END 2025-09-08 19:51 | disposition home or self-care (01) ==
PROVIDERS: Emergency Provider Student in an Organized Health Care Education/Training Program; PCP Internal Medicine
DX: S20.229A Contusion of unspecified back wall of thorax, initial encounter (principal); W19.XXXA Unspecified fall, initial encounter; Z91.81 History of falling; Y93.9 Activity, unspecified; Y92.410 Unspecified street and highway as the place of occurrence of the external cause; R42 Dizziness and giddiness; I10 Essential (primary) hypertension; E11.9 Type 2 diabetes mellitus without complications; E78.5 Hyperlipidemia, unspecified; R07.9 Chest pain, unspecified; R94.31 Abnormal electrocardiogram [ECG] [EKG]; R62.50 Unspecified lack of expected normal physiological development in childhood
CPT/HCPCS: 36415; 71045; 72100; 72170; 80048; 82947; 84484; 85025; 93005; 99283; 99284

== ENCOUNTER → 2025-09-08 15:24 | Outpatient (BNV) | payer MEDICARE, MEDICAID, SELFPAY | PROVIDERS: Emergency Provider Student in an Organized Health Care Education/Training Program; PCP Internal Medicine; Visit Provider Radiology Diagnostic Radiology | DX: S20.229A Contusion of unspecified back wall of thorax, initial encounter (principal); M54.50 Low back pain, unspecified; W19.XXXA Unspecified fall, initial encounter | CPT/HCPCS: 72100; 72170 ==

== ENCOUNTER → 2025-09-08 17:27 | Outpatient (BNV) | payer MEDICARE, MEDICAID, SELFPAY | PROVIDERS: Emergency Provider Student in an Organized Health Care Education/Training Program; PCP Internal Medicine; Visit Provider Internal Medicine | DX: R94.31 Abnormal electrocardiogram [ECG] [EKG] (principal); R07.9 Chest pain, unspecified | CPT/HCPCS: 93010 ==

== ENCOUNTER 2025-09-30 09:42 | Outpatient (AMB) | payer MEDICARE, MEDICAID, SELFPAY ==
--- NOTE | 2025-09-30 09:47 | A.OFFVIS_ITS ---
Vital Signs 3 09/30/25 10:05 Height 5 ft 5 in Weight 242 lb 8.136 oz BMI 40.4 BP 116/78 Blood Pressure Location Rt brachial Position Sitting Pulse 64 Pulse Source Pulse Oximeter Pulse Oximetry (%) 100 Oxygen Delivery Method Room Air Intake Visit Reasons: Hyperparathyroidism Intake Note: Patient presents here today for Hyperparathyroidism follow-up after completion of workup. Last seen by Dr Richy MD: * Thyroid Lab Workup: Completed at [facility] on 09/28/2025. Um Rn Required: No Accompanied by: Staff CHD CHARGE RN Allergies Sulfa (Sulfonamide Antibiotics) Allergy (Severe, Verified 09/30/25 10:10) CHAVEZ ALICIA REACTION trimethoprim Allergy (Mild, Verified 09/30/25 10:10) UNKNOWN lactose Adverse Reaction (Mild, Verified 09/30/25 10:10) STOMACH UPSET HPI Comments Details: 54-year-old male coming in today for initial evaluation of elevated PTH level. [place] [facility] [place] [facility]. Last seen by Dr. Lockhart on 07/04/2025. This is my 1st time seeing this patient. Patient was brought to the appointment over 15 mins late. Chart review shows patient has had Normal calcium levels ranging anywhere from 8.5-9.5 with a albumin mostly around 3.7, corrected calcium would be somewhere around 9-10. No elevated calcium levels in the chart. Most recent labs from 06/29/2025 showed normal kidney function with a EGFR greater than 60, calcium of 8.7, PTH level elevated at 146.3. Chart review also shows patient has had elevated PTH levels in the past all with normal calcium levels, a PTH level elevated at 167.3 back from August 2024 while vitamin-D was normal at 49.8. Calcium was normal at 8.9. Most recent vitamin-D level normal 39.8 from January 2025, with calcium of 9, phosphorus normal at 3.5, normal magnesium at 1.8. Kidney stones: per caregiver he has had kidney stones in the past ? No fractures, uses a walker. Dont have family history on him, patient might not be a reliable historian Vitamin D : 1000 units daily No calcium supplements no milk , some yogurt 1-2 times a week, cheese: doesnt do much , not much green leafy vegetables no HCTZ use , on PPI chronically On antiseziure meds, depakote somewhat incontinent for urine Interval history: Patient and certified social workers in health care reports that patient has increased his calcium intake by both increasing his intake of lactaid and by taking calcium pills He continues to take vitamin D 1000 international units No falls or broken bones No recent changes to medication. No steroid use No recent kidney stones episodes Physical exam: General: Well appearing. NAD. CV: RRR, no murmur. No edema. Resp: Lungs clear to auscultation bilaterally Abdomen: Soft, nontender. nondistended Extremities/Neuro: No weakness or tremor of outstretched hands Diabetic Foot Exam: sensation to monofilament exam Labs Laboratory Tests 12/05/18 12/10/19 06/21/21 09:00 10:32 16:48 Creatinine Estimated GFR Calcium 9.2 Phosphorus Magnesium Albumin 25-OH Vitamin D Total 27.3 36.0 PTH Intact 06/23/21 07/28/21 07/29/21 14:17 12:11 10:59 Creatinine Estimated GFR Calcium 9.6 9.0 D 9.5 Phosphorus Magnesium Albumin 25-OH Vitamin D Total PTH Intact 08/01/21 08/02/21 08/10/21 19:35 16:25 00:58 Creatinine Estimated GFR Calcium 9.1 9.8 D 8.5 D Phosphorus Magnesium Albumin 25-OH Vitamin D Total PTH Intact 08/13/21 08/14/21 08/17/21 15:13 23:52 01:22 Creatinine Estimated GFR Calcium 8.7 8.6 8.8 Phosphorus Magnesium Albumin 25-OH Vitamin D Total PTH Intact 10/02/21 10/09/21 10/26/21 15:47 17:13 15:04 Creatinine Estimated GFR Calcium 8.8 8.9 8.7 Phosphorus Magnesium Albumin 25-OH Vitamin D Total PTH Intact 10/27/21 11/20/21 01/21/22 15:44 11:20 14:34 Creatinine Estimated GFR Calcium 9.6 D 9.1 8.6 Phosphorus Magnesium Albumin 25-OH Vitamin D Total PTH Intact 04/11/22 06/28/22 07/16/22 14:23 00:43 13:26 Creatinine Estimated GFR Calcium 9.6 D 8.7 D 9.0 Phosphorus Magnesium Albumin 25-OH Vitamin D Total PTH Intact 10/11/22 11/19/22 03/05/23 14:40 15:17 19:56 Creatinine Estimated GFR Calcium 9.1 9.2 8.8 Phosphorus Magnesium Albumin 25-OH Vitamin D Total PTH Intact 05/13/23 06/10/23 06/15/23 15:31 19:07 00:00 Creatinine Estimated GFR Calcium 9.2 9.5 9.1 Phosphorus Magnesium Albumin 25-OH Vitamin D Total PTH Intact 06/15/23 07/11/23 07/12/23 16:15 21:10 16:43 Creatinine Estimated GFR Calcium 9.6 9.2 9.5 Phosphorus Magnesium Albumin 25-OH Vitamin D Total PTH Intact 07/29/23 07/30/23 08/01/23 22:02 01:53 10:31 Creatinine Estimated GFR Calcium 9.3 9.3 9.5 Phosphorus Magnesium Albumin 3.2 L 4.0 25-OH Vitamin D Total PTH Intact 09/30/23 10/13/23 10/13/23 18:49 12:29 16:43 Creatinine Estimated GFR Calcium 9.1 9.3 8.6 D Phosphorus Magnesium Albumin 3.7 3.6 25-OH Vitamin D Total PTH Intact 10/22/23 12/23/23 01/12/24 14:06 09:38 01:24 Creatinine Estimated GFR Calcium 9.1 8.8 9.0 Phosphorus Magnesium Albumin 3.6 3.6 3.2 L 25-OH Vitamin D Total 52.1 PTH Intact 134.8 H 01/14/24 08/18/24 09/18/24 22:27 12:05 09:20 Creatinine Estimated GFR Calcium 8.7 8.9 8.8 Phosphorus Magnesium Albumin 3.0 L 3.6 25-OH Vitamin D Total 49.8 56.0 PTH Intact 167.3 H 09/18/24 12/21/24 12/27/24 09:20 09:41 01:28 Creatinine Estimated GFR Calcium 8.9 9.1 Phosphorus Magnesium Albumin 3.8 3.7 25-OH Vitamin D Total PTH Intact 114.4 H 01/04/25 01/13/25 06/29/25 23:15 08:58 10:02 Creatinine 1.09 Estimated GFR > 60 Calcium 8.7 9.0 8.7 Phosphorus 3.5 Magnesium 1.8 Albumin 3.5 25-OH Vitamin D Total 39.8 PTH Intact 146.3 H [facility] Medical History Syncope Vasovagal syncope Tinea cruris Leg swelling Atrial flutter Atrial fib/flutter, transient A-fib Arrhythmia Abnormal EKG Contusion of left ankle Annual physical exam Abdominal pain Back pain Positive colorectal cancer screening using Cologuard test Precordial chest pain Hospital discharge follow-up Chest pain Right ankle pain Musculoskeletal chest pain Left-sided chest pain Back pain Fall Dysphagia Acute kidney injury Gait instability Suicidal ideation COVID-19 Hypomagnesemia Diarrhea Abdominal pain Ankle pain, left Left ankle sprain Seizure disorder Hypertension Anxiety Hyponatremia Cerebellar ataxia Anemia Lactose intolerance Vertigo Asthma Mental disability Type 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 Proteinuria Hyperlipidemia LDL goal <100 Essential hypertension Surgical History Hx of surgical procedure (07/22/24) Hx of colonoscopy History of orchiectomy Family History Father Myocardial infarction CVD (cardiovascular disease) Diabetes mellitus Mother Diabetes mellitus HTN (hypertension) Brother In good health Sister In good health Social History Household Members: Other Household Members Other:: resides at Care Home. Housing: Other [place] Other[place] [facility] Do you presently have visiting nurse or other home services: No ([place] [facility] 75 years or older and lives alone: No Alcohol intake: former 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 Patient Tobacco Use Status: Never used Tobacco Tobacco use type: Cigarette e-Cigarette/Vaping Use: Never Used Second Hand Smoke Exposure: No Advance Directives Date on File: 03/07/21 service: No Current occupational status: disabled Cognitive needs: Yes (walker) Hearing needs: No Vision needs: Yes (glasses) Assessment & Plan Assessment & Plan (1) Hyperparathyroidism: Code(s): E21.3 - Hyperparathyroidism, unspecified Category: Medical Plan: 54-year-old male coming in today for initial evaluation of elevated PTH level. Chart review shows patient has had Normal calcium levels ranging anywhere from 8.5-9.5 with a albumin mostly around 3.7, corrected calcium would be somewhere around 9-10. No elevated calcium levels in the chart. Most recent labs from 06/29/2025 showed normal kidney function with a EGFR greater than 60, calcium of 8.7, PTH level elevated at 146.3. Chart review also shows patient has had elevated PTH levels in the past all with normal calcium levels, a PTH level elevated at 167.3 back from August 2024 while vitamin-D was normal at 49.8. Calcium was normal at 8.9. Most recent vitamin-D level normal 39.8 from January 2025, with calcium of 9, phosphorus normal at 3.5, normal magnesium at 1.8. There could possibly be some history of kidney stones, however no known history of osteoporosis or fractures. He is incontinent of his urine on some occasions so would be difficult to do a 24 hour urine calcium evaluation to check for hypercalciuria. However his calcium levels are not elevated, which makes you think about secondary hyperparathyroidism. Vitamin-D levels are good, kidney function is normal so it is not because of those reasons. Review of his labs now showed normalize PTH, which in addition to normal vitamin-D levels, and normal calcium, and given that the patient reported that he (did not) increased his calcium intake, these results most likely indicate that previous elevated parathyroid hormones were related to insufficient calcium intake/lab error. At this point no further workup is recommended for hyperparathyroidism. Plan Continue calcium intake 1200 mg daily, between diet and supplements Exercise up to 170 minutes per week as tolerated Continue to take vitamin-D 6480-0533 IU daily Plan I spent 30 minutes in reviewing the record, seeing the patient and documenting in the medical record. Coding Level of Care Code Est Pt Level 4 (01839) Diagnoses Hyperparathyroidism E21.3
[2025-09-30 10:05] VITALS: BP 116/78; PULSE 64; O2SAT 100; BMI 40.4
--- OUTSIDE RECORDS SUMMARY | 2025-09-30 10:23 | XMS_ITS | Clinical Summary ---
Author Organization 175 [facility] Address [address] [place] [address] Phone Care Team Providers Care Wetlands Technician Name Role Phone Robert Sumner MD Primary Care Provider [phone] Allergies Active Allergy Reactions Criticality Noted Date Comments Sulfa (Sulfonamide Antibiotics) 12/11 Medications No known medications Social History Tobacco Use Types Packs/Day Years [...] Upcoming Encounters Date Type Department Care Team ([facility] Contact Info) Description 10/12/2025 1:00 PM EST Office Visit Orthopedic Surgery - [place] [address] [address] Jose Bonds, DPM [address] [address] Health Maintenance Due Date Last Done [...] Documents on File Type Date Recorded Patient Manager Asset Management Expl anation Health Care Decision (hx) 12/11/2020 AD VELASQUEZ DIRECTIVE Health Care Decision (hx) 12/11/2020 AD VELASQUEZ DIRECTIVE Health Care Decision (hx) 12/11/2020 AD VELASQUEZ DIRECTIVE Health Care Decision (hx) 12/11/2020 AD VELASQUEZ DIRECTIVE Care Teams Wetlands Technician Relationship Specialty Start Date End Date Robert Sumner MD [address] [place] [address] [address] [facility] [place] [address] PCP - General Internal Medicine 09/24/24
--- OUTSIDE RECORDS SUMMARY | 2025-09-30 10:23 | XMS_ITS | Data Portability ---
Author Organization [facility] Address [address] [place] [address] Assessment No assessment recorded. Plan of Treatment Reminders Order Date Submit Date Provider Last Modified By Organization Details Last Modified Time Details Appointments None recorde d. Lab glucose , fingers tick, blood 023 11/19/19 [email or web address] [facility], [address] [place] [address], [phone], 11:50:35 Referral None recorde d. Procedures None recorde d. Surgeries None recorde d. Imaging XR, foot, 3 or more view 023 11/19/19 NATALIE [facility], [address] [place] [address], [id number], 3 12:55:32 Medication Orders None recorde d. Patient TargetsNo targets recorded. Patient InstructionsNo instructions recorded. Reason for Referral None Reported. Results Created Date Observation Date Name Description Value Unit Range Abnormal Flag Note LastModifiedBy Organization Detail LastModifiedTime 11/19/1911/19/2022 gluco se, finge rstic k, blood blood sugar - non fasting mg/dL 80-140 = normal Not Available [address], [address], 11/19/2022 11:31:33 11/19/19 23 11/19/2022 gluco se, finge rstic k, blood blood sugar - fasting 193 mg/dL 80-125 = normal Not Available [id number] [place] [address] [address] [facility], [place], [address], 11/19/2022 11:31:33 11/19/19 23 11/19/2022 XR, foot, 3 or more view No observ ation record ed. [email or web address] [facility] [address] [facility] [place], [address], 11/20/2022 08:27:39 Result Notes None recorded. Problems Name Problem SNOMED Code Status Onset Date Resolution Date Notes Provider Name and Address Organization Details Recorded Time Hypertensive disorder 67457592 Active 2022 ZANA CHARLTON null, PA - [facility] 3 11:28:03 Asthma 626683552 Active 2022 ZANA CHARLTON null, PA - [facility] 3 11:28:13 Hyperlipidemia 10872761 Active 2022 ZANA CHARLTON null, PA - [facility] 3 11:29:19 Cobalamin deficiency 195706104 Active 2022 ZANA CHARLTON null, PA - [facility] 3 11:30:02 Diabetes mellitus 55257860 Active 2022 ZANA CHARLTON null, PA - [facility] 3 11:30:11 Gastroesophage al reflux disease 137539692 Active 2022 ZANA CHARLTON null, PA - [facility] 3 11:30:43 Anemia 719577992 Active 2022 ZANA CHARLTON null, PA - [facility] 3 11:30:50 Hyponatremia 83457048 Active 2022 ZANA CHARLTON null, PA - [facility] 3 11:31:05 Problem Notes None recorded. Medical Equipment None Reported. Allergies Allergen ID Allergen Name Allergen Category Reaction Reaction Severity Criticality Documentation Date Start Date Code Code System Note Provider Name and Address Organization Details Recorded Time 755430 Substance with sulfonami de structure and antibacte rial mechanism of action (substanc e) medicatio n hives Not available Not available 11/19/2022 71508 8003 SNOMED PANKAJ Med[place] - [facility] [...] [Score] - Reported Respiratory rate Oxygen saturation Heart rate Body temperature Systolic And Diastolic Provider Name and Address Organization Details Last Updated DateTime 3 165.1 cm 43.9 kg/m2 724097. 39 g 10 18 /min 100 % 76 /min 97.5 [degF] 157/85 mm[Hg] ZANA CHARLTON PA - [facility] 11:19:22 Social History Question Answer Notes LastModified by Genome Details LastModified Time Tobacco Smoking Status Never Smoker ZANA CHARLTON [email or web address] PA - [facility] 11/19/2022 11:18:12 Have You Recently Traveled Abroad? No [email or web address] Information not available 11/19/2022 Sex: Unknown Functional Status Question Answer Note LastModified by Genome Details LastModified Time Do you use any illicit or recreational drugs? No [email or web address] Information not available 11/19/2022 Do you or have you ever used any other forms of tobacco or nicotine? No [email or web address] Information not available 11/19/2022 What is your level of alcohol consumption? None [email or web address] Information not available 11/19/2022 Mental Status None recorded. Family History Relationship Description Onset Age of this Age Resolved Age Notes LastModified by Organization Details LastModified Time Father No current problems or disability [email or web address] Not available 11/19 11:17:55 Mother No current problems or disability Not available 11/19 11:17:55 Medical History No medical history recorded. Past Encounters Encounter ID Performer Location Encounter Start Date Encounter Closed Date Diagnosis/Indication Diagnosis SNOMED-CT Code Diagnosis ICD10 Code Diagnosis IMO Codes Diagnosis Note [id number] [facility] [address] [place] [address] 11/11/2017 12:27:03 11/11/2017 14:11:50 [id number] [address] [address] [address] [place] [address] 07/16/2019 09:34:06 07/16/2019 10:03:45 [id number] 20994[facility] [address] [address] [place] [address] 12/30/2019 18:13:51 12/30/2019 19:22:33 [id number] [address] [address] [address] [place] [address] 05/10/2022 10:31:31 05/10/2022 12:37:38 [id number] [address] [address] [address] [place] [address] 09/24/2019 18:43:51 09/24/2019 19:35:54 [id number] [address] [address] [address] [place] [address] 10/02/2019 17:34:39 10/02/2019 17:59:04 [id number] [address] [address] [address] [place] [address] 03/31/2021 12:12:43 03/31/2021 13:12:15 [id number] [address] [address] [address] [place] [address] 04/18/2021 16:40:29 04/18/2021 17:49:54 [id number] [address] [address] [address] [place] [address] 11/20/2019 12:14:41 11/20/2019 13:14:49 [id number] Ag Lara MD [address] [address] [place] [address] 11/19/2022 11:04:24 11/19/2022 12:41:23 Pain in left foot [id number] 40071 M79.672 Imaging did not indicate acute fracture [...] today and the radiology interpreta tion. Dizziness 640471608 R42 Vital stable. Suicidal thoughts 781554 6 R45.851 Patient has SI and HI [...] Guarantor Name 11/19/2022 1 [place] [address] [employer] Raulito Zepeda [id number] Raulito Zepeda 12/30/2022 2 [place] [facility] Raulito Zepeda [id number] Raulito Zepeda 11/19/2022 [facility] (MEDICARE [facility]) Raulito Zepeda [id number] Raulito Zepeda Notes Date Note Type [...] or someone else. Shevaughn Kealy, MD [address] [facility], [place], [address], PA - [facility] 11/19/2022 13:08:30
== END 2025-09-30 10:46 | disposition home or self-care (01) ==
LOC: HO.ENCR 09:42
PROVIDERS: PCP Internal Medicine; Visit Provider Student in an Organized Health Care Education/Training Program
DX: E21.3 Hyperparathyroidism, unspecified (principal)
CPT/HCPCS: 99214

== ENCOUNTER → 2025-09-30 09:42 | Outpatient (BNVA) | payer MEDICARE, MEDICAID, SELFPAY | PROVIDERS: PCP Internal Medicine; Visit Provider Student in an Organized Health Care Education/Training Program | DX: E21.3 Hyperparathyroidism, unspecified (principal) | CPT/HCPCS: 99212 ==

== ENCOUNTER 2025-10-01 19:48 | Emergency (ER) | payer MEDICARE, MEDICAID, SELFPAY ==
--- NOTE | 2025-10-01 | ECG_ITS ---
Test Reason : CP Blood Pressure : */* mmHG Vent. Rate : 79 BPM Atrial Rate : 79 BPM P-R Int : 186 ms QRS Dur : 90 ms QT Int : 380 ms P-R-T Axes : -6 41 8 degrees QTcB Int : 435 ms Normal sinus rhythm Low voltage QRS Borderline ECG When compared with ECG of 08-Sep-2025 17:41, No significant change was found Referred By: Generic ED Physician Electronically Signed By: AP MONTGOMERY
--- NOTE | ~2025-10-01 | CT_ITS ---
CLINICAL HISTORY: trauma CT head without contrast Comparison: CT/REG/SR - CT HEAD WITHOUT IV CONTRAST - 10/13/24 18:39 EST Findings: Motion-limited study. No intra-axial mass, midline shift, hydrocephalus, or acute hemorrhage. No significant atrophy-like change. White matter disease. The visualized paranasal sinuses and mastoid air cells are normal. The orbits are unremarkable. No skull fracture. IMPRESSION: No acute intracranial findings within the limits of motion This document has been electronically signed by: Brandon Martinez MD on 10/01/2025 23:59:59
--- NOTE | ~2025-10-01 | XR_ITS ---
CLINICAL HISTORY: pain 1 view chest x-ray Comparison: CR - XR CHEST 1V - 09/08/25 17:23 EDT Findings: The lungs are clear. Heart size is normal. No acute fracture. IMPRESSION: 1. No acute findings. This document has been electronically signed by: Brandon Martinez MD on 10/01/2025 22:02:50
--- NOTE | ~2025-10-01 | XR_ITS ---
CLINICAL HISTORY: trauma 2 view right shoulder Comparison: CR/SR - XR SHOULDER 2 OR MORE VIEWS RIGHT - 10/13/24 18:35 EST Findings: No acute fracture or dislocation. The humeral head is high-riding within the glenohumeral joint suggestive of rotator cuff tendinopathy. There are degenerative changes of the right shoulder. Partially visualized chest is unremarkable. IMPRESSION: No acute findings. This document has been electronically signed by: Brandon Martinez MD on 10/01/2025 22:03:14
--- NOTE | ~2025-10-01 | CT_ITS ---
CLINICAL HISTORY: trauma CT cervical spine without contrast Comparison: CT/SR - CT CERVICAL SPINE WITHOUT IV CONTRAST - 10/13/24 18:39 EST Findings: Vertebral alignment is within normal limits. Multilevel spondylosis, most pronounced at C6-7. Multilevel bilateral canal and foraminal stenosis. No acute fractures or dislocations. Visualized intracranial contents are unremarkable. No cervical fluid collections or masses. No consolidation or effusion at the lung apices. IMPRESSION: No acute findings. This document has been electronically signed by: Brandon Martinez MD on 10/01/2025 23:55:49
[2025-10-01 19:56] VITALS: PULSE 97; O2SAT 95
[2025-10-01 20:01] VITALS: BP 137/66; PULSE 78; RESP 20; TEMP 36.6; O2SAT 100
[2025-10-01 20:03] VITALS: BP 137/66; PULSE 78; RESP 16; TEMP 36.4; O2SAT 99; BMI 39.9
[2025-10-01 20:10] VITALS: PULSE 72
[2025-10-01 20:30] LABS: MANUAL DIFF FLAG NO
[2025-10-01 20:31] LABS: Hematocrit 33.9 % (42.0-52.0); Hemoglobin 11.4 g/dl (14.0-18.0); Imm Gran Abs Auto 0.07 X10*3/uL (0.00-0.03); Imm Gran Pct Auto 0.9 % (0.0-0.4); Lymphocytes Absolute Auto 1.3 X10*3/uL (1.2-4.9); Mean Corpuscular HGB Conc 33.6 g/dl (31.0-36.0); Mean Corpuscular Hemoglobin 31.0 pg (27.0-33.0); Mean Corpuscular Volume 92.1 fL (80.0-98.0); NRBC Abs Auto 0.000 X10*3/uL (0.0-0.012); NRBC Pct Auto 0.0 /100WBC (0.0-0.2); Platelet Count 103 X10*3/uL (160-400); Red Blood Count 3.68 X10*6/uL (4.60-5.80); White Blood Count 7.4 X10*3/uL (4.8-10.8)
--- OUTSIDE RECORDS SUMMARY | 2025-10-01 20:37 | XMS_ITS | Clinical Summary ---
Author Organization 175 [facility] Address [address] [place] [address] Phone Care Team Providers Care Rubber Chemist Name Role Phone Robert Sumner MD Primary Care Provider [phone] Allergies Active Allergy Reactions Criticality Noted Date [...] Upcoming Encounters Date Type Department Care Team ([facility] Contact Info) Description 10/12/2025 1:00 PM EST Office Visit Orthopedic Surgery - [place] [address] [address] Jose Bonds DPM [address] [address] Health Maintenance Due Date Last Done Comments Colorectal Cancer Screening: Colonoscopy 1970 Diabetes: Annual GFR (Glomerular Filtration Rate) 1971 [...] 10/12/2022 Social Influencers of Health Screening 10/12/2022 Depression Screening 11/10/2024 Diabetes: Annual Urine Albumin-Creatinine Ratio (uACR) 12/29/2024 Diabetes: Blood Sugar Control Test (HGBA1C) 12/29/2024 Hypertension/CHF/CAD Annual BMP Blood Test 12/29/2024 COVID-19 Vaccine ( season) 2025 10/30/2021, 01/15/2021, 12/25/2020 Influenza Vaccine (#1) 2025 , 08/25/2023, 08/31/2021, Additional history exists Colorectal Cancer Screening: FIT-DNA (Cologuard) Discontinued 10/02/2021 HIB Vaccines Aged Out No longer eligi [...] Documents on File Type Date Recorded 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
[2025-10-01 21:02] LABS: Alanine Aminotransferase 24 U/L (0-40); Albumin Level 4.0 g/dL (3.5-5.0); Alkaline Phosphatase 75 U/L (39-117); Anion Gap 15 (12-20); Aspartate Amino Transferase 16 U/L (5-37); Blood Urea Nitrogen 43 mg/dL (9-16); Calcium 9.0 mg/dL (8.4-10.2); Carbon Dioxide 24 mmol/L (22-29); Chloride 104 mmol/L (96-108); Creatinine Clr Calc Pharmacy 73.3; Estimated Glomerular Filt Rate 57; Potassium 5.3 mmol/L (3.3-5.1); Sodium 138 mmol/L (135-145); Total Protein 7.0 g/dL (6.5-8.0)
[2025-10-01 21:09] LABS: Troponin-I High Sensitivity 2.9 ng/L (<3.5-35.0)
--- NOTE | 2025-10-01 21:57 | ED_ITS ---
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 Patient is with the his caregiver, [place] the [place], the patient was in a wheelchair. He subsequently fell forward out of the wheel chair, there was concern for loss of consciousness. The patient has sustained a laceration to the left brow. Unclear if tetanus is up-to-date. The patient complains of anterior chest pain, right shoulder pain and neck pain since the fall. The patient denies headache, dizziness, nausea, vomiting. Denies weakness of upper extremities or inability to perform range of motion of the right shoulder. Related Data Home Medications ?Medication ?Instructions ?Recorded ?Confirmed divalproex 500 mg tablet,extended 1,000 mg PO BID 12/0210/03/25 release 24 hr risperidone 3 mg tablet 3 mg PO BID 06/10/23 5 clonidine HCl 0.1 mg tablet 0.1 mg PO BEDTIME PRN Agit ation 07/09/24 10/03/25 aluminum-mag hydroxide-simethicone 5 ml PO Q6H PRN Ind igestion 05/06/25 10/03/25 400 mg-400 mg-40 mg/5 mL oral susp (Advanced Antacid-Antigas) triamcinolone acetonide 0.1 % 1 appl dental Q8H PRN gu m 05/06/25 10/03/25 dental paste trauma/sores gabapentin 300 mg capsule 300 mg PO BID 06/09/2510/03 (Neurontin) bismuth subsalicylate 262 mg/15 mL 524 mg PO Q6H PRN D iarrhea 08/08/25 10/03/25 oral suspension (Stomach Relief) neomycin-bacitracn Zn-polymyxn 3.5 1 appl topical BID PRN anti 08/08/25 10/03/25 mg-400 unit-5,000 unit top oint infection pkt (Triple Antibiotic) propranolol 20 mg tablet 20 mg PO TID 08/08/25 bisacodyl 5 mg tablet,delayed mg PO 09/30/25 10/03/25 release Previous Rx's ?Medication ?Instructions ?Recorded blood-glucose meter (Prodigy #1 ea 04/07/24 Autocode Blood Glucose Monitoring System) fluticasone propionate 50 1 spray intranasal BID #16 g kolby 06/17/24 mcg/actuation nasal spray,suspension (Flonase Allergy Relief) [id number] #1 ea 09/03/24 Bilateral custom AFO #2 ea 09/03/24 Heat Moldable shoe inserts #2 ea 09/03/24 fluoride (sodium) 1.1 % dental 1 appl dental BID #100 mL 10/13/24 paste (PreviDent 5000 Booster Plus) DIABETIC SHOES/INSERTS #1 ea 01/10/25 atorvastatin 10 mg tablet 10 mg PO BEDTIME #90 tabs ferrous sulfate 325 mg (65 mg 325 mg PO BID #180 tabs 02/21/25 iron) tablet alvarez.stocking,knee,reg,xlrg #12 ea 04/22/25 Adult briefs #300 ea 05/10/25 wheelchair cushion #1 ea 05/10/25 fexofenadine-pseudoephedrine ER 1 tab PO QAM congestio n 10 days 06/06/25 180 mg-240 mg tablet,ext.release #10 tabs 24 hr starch (thickening) (Diafoods See Rx Instructions PO . COMPLEX 30 06/13/25 Thick-It oral powder) days #850 grams calcium carbonate 600 mg PO DAILY #30 tabs Hospital Bed full electric with #1 ea 07/25/25 rails [employer] for electric hospital bed #1 ea 07/25/25 blood-glucose meter (OneTouch #1 ea 08/01/25 Ultra2 Meter) cholecalciferol (vitamin D3) 25 25 mcg PO DAILY #30 ta bs 08/05/25 mcg (1,000 unit) tablet empagliflozin 25 mg tablet 25 mg PO DAILY #30 tabs (Jardiance) hydralazine 50 mg tablet 50 mg PO TID #90 tabs lisinopril 5 mg tablet 5 mg PO DAILY #30 tabs 09/03 cyclobenzaprine 5 mg tablet 5 mg PO TID PRN muscle spa sm #14 09/08/25 tabs albuterol sulfate 90 mcg/actuation 2 puff inhalation Q 6H PRN Wheezing 09/21/25 aerosol inhaler #8.5 grams lancets 28 gauge (Autobook Now Lancets) #200 ea 09/21/25 blood sugar diagnostic (Prodigy No #100 ea 09/28/25 Coding strips) cyanocobalamin (vitamin B-12) 1,000 mcg PO BEDTIME #90 tabs 09/29/25 1,000 mcg tablet dextromethorphan polistirex 30 10 ml PO Q12H PRN Cough #89 mL 09/29/25 mg/5 mL oral susp ext.release 12hr fluticasone furoate 200 1 inh inhalation DAILY #60 e a 09/29/25 mcg-vilanterol 25 mcg/dose inhalation powder (Breo Ellipta) acetaminophen 325 mg tablet 650 mg (2 x 325 mg) PO Q4H PRN 10/03/25 fever 101 or pain 90 days #180 tabs dextromethorphan polistirex 30 10 ml PO Q12H PRN cough #89 mL 10/03/25 mg/5 mL oral susp ext.release 12hr (Delsym 12 hour) esomeprazole magnesium 40 mg 40 mg PO BEDTIME #28 caps 10/03/25 capsule,delayed release (Nexium) lactase 3,000 unit tablet (Lactaid) 3,000 unit PO TID Lactose 10/03/25 Intolerance #90 tabs loperamide 2 mg capsule 2 mg PO Q8H PRN loose stool #30 10/03/25 caps metformin 500 mg tablet 500 mg PO BIDWMEAL #60 tabs 10/03/25 Allergies Allergy/AdvReac Type Severity Reaction Status Date / Time Sulfa (Sulfonamide Allergy Severe CHAVEZ Verified 10/03/25 14:04 Antibiotics) ALICIA REACTION trimethoprim Allergy Mild UNKNOWN Verified 10/03/25 14:04 lactose AdvReac Mild STOMACH Verified 10/03/25 14:04 UPSET Review of Systems 2 Review of Systems: Yes all other systems are reviewed and are negative Constitutional: Constitutional: Denies fatigue, Denies fever(s) and Denies headache(s) ENT: Denies dizziness, Denies headache(s) and Reports neck pain Cardiovascular: Cardiovascular: Reports chest pain and Denies dyspnea Respiratory: Respiratory: Denies cough and Denies dyspnea Gastrointestinal: Gastrointestinal: Denies nausea and Denies vomiting Musculoskeletal: Musculoskeletal: Denies back pain, Reports arthralgias, Denies joint swelling, Reports neck pain, Denies numbness and Denies tingling Neurologic: Denies dizziness, Denies headache(s), Denies numbness and Denies tingling Endocrine: Endocrine: Denies fatigue PMF Past Medical History Attestation statement: The following information was validated with the patient. Medical History Syncope Vasovagal syncope Tinea cruris Leg swelling Atrial flutter Atrial fib/flutter, transient A-fib Arrhythmia Abnormal EKG Contusion of left ankle Annual physical exam Abdominal pain Back pain Positive colorectal cancer screening using Cologuard test Precordial chest pain Hospital discharge follow-up Chest pain Right ankle pain Musculoskeletal chest pain Left-sided chest pain Back pain Fall Dysphagia Acute kidney injury Gait instability Suicidal ideation COVID-19 Hypomagnesemia Diarrhea Abdominal pain Ankle pain, left Left ankle sprain Seizure disorder Hypertension Anxiety Hyponatremia Cerebellar ataxia Anemia Lactose intolerance Vertigo Asthma Mental disability Type 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 Proteinuria Hyperlipidemia LDL goal <100 Essential hypertension Surgical History Hx of surgical procedure (07/22/24) Hx of colonoscopy History of orchiectomy Family History Family History Father Myocardial infarction CVD (cardiovascular disease) Diabetes mellitus Mother Diabetes mellitus HTN (hypertension) Brother In good health Sister In good health Social History Social History Household Members: Other Household Members Other:: resides at [facility]. Housing: Other Housing Other:: senior care. Do you presently have visiting nurse or other home services: No (senior care.) 75 years or older and lives alone: No Unable to assess alcohol history related to: Unknown Alcohol intake: former 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 Patient Tobacco Use Status: Never used Tobacco Tobacco use type: Cigarette e-Cigarette/Vaping Use: Never Used Second Hand Smoke Exposure: No Advance Directives Date on File: 03/07/21 service: No Current occupational status: disabled Cognitive needs: Yes (walker) Hearing needs: No Vision needs: Yes (glasses) Physical Exam 2 Vital Signs: Vital Signs: Last Vital Signs Temp 98.0 F 10/02/25 00:18 Pulse 69 10/02/25 00:18 Resp 18 10/02/25 00:18 BP 114/65 10/02/25 00:18 Pulse Ox 98 10/02/25 00:18 O2 Del Method Room Air 10/02/25 00:18 BMI result Body Mass Index 39.9 Const: Other: Alert, developing left periorbital ecchymosis, contusion noted left brow with superficial irregular laceration measuring approximately half a cm, not bleeding, 2 abrasions also noted Orientation/consciousness: oriented to person Neck: Other: No midline tenderness pain elicited with range of motion Neck: Yes full ROM Resp: Effort & Inspection: normal respiratory effort Cardio: Other: Normal peripheral perfusion Skin: Other: Warm dry no rash Neuro: General: oriented to person, no focal motor deficits and CN's II-XI intact bilaterally Extrem: Other: Able to flex and extend from the elbow, able to perform lateral raise from the right shoulder to some degree, he states he has reduced range of motion at baseline, his caregiver confirms, no overlying swelling or ecchymosis noted Psych: Other: Cooperative Course Reevaluation(s) Reevaluation #1: called Shelia Marshall , the sister and legal guardian, she was aware that the patient was being assessed in the emergency room I updated her thus far about imaging, chest x-ray negative and shoulder x-ray negative Time: 22:04 Medications Administered Discontinued Medications Generic Name Dose Route Start Last Admin Trade Name Freq PRN Reason Stop Dose Admin Diphtheria/Tetanus/Acell Pertussis 0.5 ml 10/01/25 21:46 10/01/25 22:32 Diphth,Pertus(Acell),Tet Adult 0.5 Ml Syringe IM 10/01/25 21:47 0.5 ml .ONCE ONE Administration Lidocaine/Epinephrine 10 ml 10/01/25 21:46 10/01/25 22:33 Lidocaine Hcl 1%/Epi 1:100,000 10 Ml Vial INFILTRATI 10/01/25 21:47 10 ml ONCE ONE Administration Procedures Laceration Laceration 1: Site: face Side (If applicable): left Size (cm): 0.5 Description: irregular Depth: simple, single layer Local Anesthetic: lidocaine 1% and with epi Amount of anesthesia used (mL): 0.5 Pre-repair: irrigated extensively Skin layer closed with: vicryl Size (cm): 5-0 Number of sutures: 1 Technique: simple, interrupted Medical Decision Making Medical Decision Making MDM Narrative: 55-year-old male with a history of schizophrenia, prior psychosis, cognitive developmental delay,hypertension, hyperlipidemia, diabetes type 2, asthma, GERD, peripheral vascular disease, chronic kidney disease, 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 Patient is with the his caregiver, they were [place] the [place], the patient was in a wheelchair. He subsequently fell forward out of the wheel chair, there was concern for loss of consciousness. The patient has sustained a laceration to the left brow. Unclear if tetanus is up-to-date. The patient complains of anterior chest pain, right shoulder pain and neck pain since the fall. The patient denies headache, dizziness, nausea, vomiting. Denies weakness of upper extremities or inability to perform range of motion of the right shoulder. Problem: Psychiatric illness, diabetes, physical disability History: Per the patient in the caregiver which is limited I have considered the following differential diagnoses: Intracranial hemorrhage, cervical spine injury, rib fracture, fracture, dislocated shoulder, ACS. Laceration, abrasion, contusion Plan: Given patient's underlying physical and cognitive impairment, he is not a reliable historian, he did sustain head trauma, we will be scanning his head and neck chest and right shoulder. The laceration will require simple repair, updating his tetanus. From triage, screening labs were ordered and a cardiac enzyme. The patient's presentation is not consistent with a ACS, he sustained a mechanical fall, now having chest wall pain. I have independently reviewed the following tests: Labs: No leukocytosis, not anemic, no electrolyte abnormality, troponin 2.9, EKG: Normal sinus rhythm, rate of 79, no ischemic changes no ectopy QTC 435 X-ray right shoulder: Findings: No acute fracture or dislocation. The humeral head is high-riding within the glenohumeral joint suggestive of rotator cuff tendinopathy. There are degenerative changes of the right shoulder. Partially visualized chest is unremarkable. IMPRESSION: No acute findings. Chest x-ray:Findings: The lungs are clear. Heart size is normal. No acute fracture. IMPRESSION: 1. No acute findings. CT brain:MPRESSION: No acute intracranial findings within the limits of motion CT cervical spine:indings: Vertebral alignment is within normal limits. Multilevel spondylosis, most pronounced at C6-7. Multilevel bilateral canal and foraminal stenosis. No acute fractures or dislocations. Visualized intracranial contents are unremarkable. No cervical fluid collections or masses. No consolidation or effusion at the lung apices. IMPRESSION: No acute findings. Differential Diagnosis Differential Diagnoses: The differential diagnosis associated with the presentation includes See [facility] Admission/Observation Consideration of admission/observation: Escalation of care including admission/observation considered not applicable Lab Data [facility] Lab Attestation statement: I reviewed the patient's lab results. 10/01/25 20:23 10/01/25 20:23 Labs: Lab Results 10/01/25 Range/Units 20:23 WBC 7.4 (4.8-10.8) X10*3/uL RBC 3.68 L (4.60-5.80) X10*6/uL Hgb 11.4 L (14.0-18.0) g/dl Hct 33.9 L (42.0-52.0) % MCV 92.1 (80.0-98.0) fL MCH 31.0 (27.0-33.0) pg MCHC 33.6 (31.0-36.0) g/dl RDW 12.6 (11.0-16.0) % Plt Count 103 L (160-400) X10*3/uL MPV 10.0 (9.4-12.4) fL Immature Gran % (Auto) 0.9 H (0.0-0.4) % Neut % (Auto) 70.9 (45-73) % Lymph % (Auto) 17.8 L (20-40) % Spink % (Auto) 9.8 (2-11) % Eos % (Auto) 0.3 (0-4) % Baso % (Auto) 0.3 (0-2) % Lymph # (Auto) 1.3 (1.2-4.9) X10*3/uL Spink # (Auto) 0.7 (0.1-1.2) X10*3/uL Eos # (Auto) 0.0 (0.0-0.4) X10*3/uL Baso # (Auto) 0.0 (0.0-0.2) X10*3/uL Abs Immat Gran (auto) 0.07 H (0.00-0.03) X10*3/uL Absolute Neuts (auto) 5.2 (2.0-8.3) x10*3/uL Absolute Nucleated RBC 0.000 (0.0-0.012) X10*3/uL Nucleated RBC % (auto) 0.0 (0.0-0.2) /100WBC Sodium 138 (135-145) mmol/L Potassium 5.3 H (3.3-5.1) mmol/L Chloride 104 (96-108) mmol/L Carbon Dioxide 24 (22-29) mmol/L Anion Gap 15 (12-20) BUN 43 H (9-16) mg/dL Creatinine 1.31 (0.5-1.4) mg/dL Estim Creat Clear Calc 73.3 Estimated GFR 57 Random Glucose 343 H (60-115) mg/dL Calcium 9.0 (8.4-10.2) mg/dL Total Bilirubin 0.2 (0.0-1.0) mg/dL AST 16 (5-37) U/L ALT 24 (0-40) U/L Alkaline Phosphatase 75 (39-117) U/L Troponin I High Sens 2.9 (<3.5-35.0) ng/L Total Protein 7.0 (6.5-8.0) g/dL Albumin 4.0 (3.5-5.0) g/dL Independent Interpretation I performed an independent interpretation of an: EKG Radiology Impression Discussion of test interpretation with radiology: I have reviewed the radiologist's reading. Discharge Plan Discharge Clinical Impression: Contusion of right shoulder, Chest wall contusion, Contusion of forehead, Forehead laceration Patient Disposition: Home, Self-Care Instructions: Contusion in Adults (ED), Care For Your Absorbable Stitches (ED), Facial Contusion (ED) Additional Instructions: All of your screening labs including a cardiac enzymes were normal. There were no concerning changes on the EKG. X-ray of the right shoulder was negative for fracture or dislocation. The chest x-ray is clear, you also did not sustain rib fractures. CT scans of the head and neck were obtained as well, no acute injury sustained beyond contusions. See home care instructions. You had a very small superficial laceration within the left brow that was repaired with 1 suture. It will absorb on its own. Keep the area clean and dry. Watch for signs of infection which would include redness, swelling, pus draining from the site or fever. If you develop any such symptoms, seek medical attention. Otherwise follow up with your primary care provider as needed. Prescriptions: No Action (DME) blood-glucose meter [ProdigRSB SPINE Autocode Monitor Syst] Misc See Rx Instructions .Route Qty: 1 0RF Rx Instructions: As directed fluticasone propionate [Flonase Allergy Relief] 50 mcg/actuation spray,suspension 1 spray intranasal BID Qty: 16 12RF Rx Instructions: administer into each nostril (DME) [id number] 10 XW 3 See Rx Instructions .Route .MEDSUPPLY Qty: 1 0RF Rx Instructions: As directed (DME) Heat Moldable shoe inserts See Rx Instructions .Route .MEDSUPPLY Qty: 2 0RF Rx Instructions: As directed (DME) Bilateral custom AFO See Rx Instructions .Route .MEDSUPPLY Qty: 2 0RF Rx Instructions: As directed fluoride (sodium) [PreviDent 5000 Booster Plus] 1.1 % paste 1 appl DENTAL BID Qty: 100 0RF (DME) DIABETIC SHOES/INSERTS See Rx Instructions .Route .MEDSUPPLY Qty: 1 1RF Rx Instructions: As directed ferrous sulfate 325 mg (65 mg iron) tablet 325 mg PO BID Qty: 180 2RF atorvastatin 10 mg tablet 10 mg PO BEDTIME Qty: 90 2RF (DME) alvarez.stocking,knee,reg,xlrg Misc See Rx Instructions .Route Qty: 12 0RF Rx Instructions: As directed 15-20 mm HG (DME) Adult briefs xlg See Rx Instructions .Route .MEDSUPPLY Qty: 300 11RF Rx Instructions: As directed (DME) wheelchair cushion See Rx Instructions .Route .MEDSUPPLY Qty: 1 0RF Rx Instructions: As directed Diafoods Thick-It Powder See Rx Instructions PO .COMPLEX 30 Days Qty: 850 12RF Rx Instructions: Add thick it powder to food and beverage using enclosed measuring spoon TID (DME) [employer] for electric hospital bed See Rx Instructions .Route .MEDSUPPLY Qty: 1 0RF Rx Instructions: As directed (DME) Hospital Bed full electric with rails See Rx Instructions .Route .MEDSUPPLY Qty: 1 0RF Rx Instructions: As directed (DME) blood-glucose meter [OneTouch Ultra2 Meter[place] [facility] [place]ructions .Route Qty: 1 0RF Rx Instructions: test once daily Jardiance 25 mg tablet 25 mg PO DAILY Qty: 30 2RF cholecalciferol (vitamin D3) 25 mcg (1,000 unit) tablet 25 mcg PO DAILY Qty: 30 2RF hydralazine 50 mg tablet 50 mg PO TID Qty: 90 2RF lisinopril 5 mg tablet 5 mg PO DAILY Qty: 30 8RF (DME) lancets [Prodigy Lancets] 28 gauge [facility] See Rx Instructions .Route Qty: 200 1RF Rx Instructions: As directed check BS twice a day albuterol sulfate 90 mcg/actuation HFA aerosol inhaler 2 puff INHALATION Q6H PRN (Reason: Wheezing) Qty: 8.5 0RF (DME) Prodigy No Coding Strip See Rx Instructions .Route Qty: 100 11RF Rx Instructions: As directed 2 times per day dextromethorphan polistirex 30 mg/5 mL suspension,extended rel 12 hr 10 ml PO Q12H PRN (Reason: Cough) Qty: 89 0RF fluticasone furoate-vilanterol [Breo Ellipta] 200-25 mcg/dose blister with device 1 inh inhalation DAILY Qty: 60 4RF cyanocobalamin (vitamin B-12) 1,000 mcg tablet 1,000 mcg PO BEDTIME Qty: 90 0RF clonidine HCl 0.1 mg Tablet 0.1 mg PO BEDTIME PRN (Reason: Agitation) cyclobenzaprine 5 mg tablet 5 mg PO TID PRN (Reason: muscle spasm) Qty: 14 0RF risperidone 3 mg tablet 3 mg PO BID divalproex 500 mg tablet extended release 24 hr 1,000 mg PO BID propranolol 20 mg tablet 20 mg PO TID bismuth subsalicylate [Stomach Relief] 262 mg/15 mL Suspension 524 mg PO Q6H PRN (Reason: Diarrhea) Triple Antibiotic 3.5-400-5,000 [id number] ointment in packet 1 appl TOPICAL BID PRN (Reason: anti infection) metformin 500 mg tablet 500 mg PO BIDWMEAL Qty: 60 3RF lactase [Lactaid] 3,000 unit tablet 3,000 unit PO TID Qty: 90 11RF Rx Instructions: take at the start of drinking milk only dextromethorphan polistirex [Delsym 12 hour] 30 mg/5 mL suspension,extended rel 12 hr 10 ml PO Q12H PRN (Reason: cough) Qty: 89 0RF loperamide 2 mg capsule 2 mg PO Q8H PRN (Reason: loose stool) Qty: 30 12RF esomeprazole magnesium [Nexium] 40 mg capsule,delayed release(DR/EC) 40 mg PO BEDTIME Qty: 28 2RF acetaminophen 325 mg tablet 650 mg PO Q4H PRN (Reason: fever 101 or pain) 90 Days Qty: 180 2RF calcium carbonate 600 mg calcium (1,500 mg) tablet 600 mg PO DAILY Qty: 30 4RF gabapentin [Neurontin] 300 mg capsule 300 mg PO BID triamcinolone acetonide 0.1 % paste 1 appl dental Q8H PRN (Reason: gum trauma/sores) alum-mag hydroxide-simeth [Advanced Antacid-Antigas] 400-400-40 mg/5 mL suspension 5 ml PO Q6H PRN (Reason: Indigestion) fexofenadine-pseudoephedrine 180-240 mg tablet extended release 24 hr 1 tab PO QAM 10 Days Qty: 10 0RF bisacodyl 5 mg tablet,delayed release (DR/EC) PO Interventions: ED Discharge Assessment Last Done: 10/02/25 00:18 Discharge Date/Time: 10/02/25 00:21 Print Language: Georgian
[2025-10-01 22:15] VITALS: BP 114/65; PULSE 69; RESP 18; O2SAT 98
[2025-10-01] MEDS: Diphth,Pertus(ACell),Tet Adult 0.5 ML SYRINGE IM (22:32)
[2025-10-01] MEDS: Lidocaine HCl 1%/Epi 1:100,000 10 ML VIAL INFILTRATI (22:33)
--- NOTE | 2025-10-01 23:45 | PC.NURSE ---
Took over care from RANJEET Singh at 23:00, pt resting in bed.
--- NOTE | 2025-10-01 23:51 | PC.NURSE ---
provider into clean laceration site and sutures.
--- NOTE | 2025-10-02 00:16 | PC.NURSE ---
reviewed discharge instructions with pt caregiver, health care social worker verbalized understanding, no sign of distress, Iv removed.
[2025-10-02 00:18] VITALS: BP 114/65; PULSE 69; RESP 18; TEMP 36.7; O2SAT 98
== END 2025-10-02 00:21 | disposition home or self-care (01) ==
PROVIDERS: Emergency Provider Emergency Medicine; PCP Internal Medicine
DX: S40.011A Contusion of right shoulder, initial encounter (principal); S01.81XA Laceration without foreign body of other part of head, initial encounter; S20.219A Contusion of unspecified front wall of thorax, initial encounter; M25.511 Pain in right shoulder; G31.84 Mild cognitive impairment of uncertain or unknown etiology; R07.89 Other chest pain; R51.9 Headache, unspecified; M54.2 Cervicalgia; F20.9 Schizophrenia, unspecified; I10 Essential (primary) hypertension; W05.0XXA Fall from non-moving wheelchair, initial encounter; Y93.89 Activity, other specified; Y92.59 Other trade areas as the place of occurrence of the external cause; Y99.8 Other external cause status; Z79.899 Other long term (current) drug therapy; Z86.79 Personal history of other diseases of the circulatory system; Z23 Encounter for immunization
CPT/HCPCS: 12011; 36415; 70450; 71045; 72125; 73030; 80053; 84484; 85025; 90471; 90715; 93005; 99284; 99285; J2004

== ENCOUNTER → 2025-10-01 20:10 | Outpatient (BNV) | payer MEDICARE, MEDICAID, SELFPAY | PROVIDERS: Emergency Provider Emergency Medicine; PCP Internal Medicine; Visit Provider Internal Medicine | DX: R07.9 Chest pain, unspecified (principal) | CPT/HCPCS: 93010 ==

== ENCOUNTER 2025-10-03 13:38 | Outpatient (AMB) | payer MEDICARE, MEDICAID, SELFPAY ==
[2025-10-03 14:04] VITALS: PULSE 73; RESP 18; O2SAT 99; BMI 40.0
--- NOTE | 2025-10-03 14:04 | MHC.PC.OV ---
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 Pressure Vessels Required: No Accompanied by: Self / Same As Patient Allergies Sulfa (Sulfonamide Antibiotics) Allergy (Severe, Verified 10/03/25 14:04) CHAVEZ ALICIA REACTION trimethoprim Allergy (Mild, Verified 10/03/25 14:04) UNKNOWN lactose Adverse Reaction (Mild, Verified 10/03/25 14:04) STOMACH UPSET Medication List - Last Reconciled 10/03/25 by Robert Sumner MD acetaminophen 650 mg (2 x 325 mg) PO Q4H PRN 90 days [Adult briefs As directed] albuterol sulfate 90 mcg/actuation 2 puffs inhalation Q6H PRN alum-mag hydroxide-simeth 400-400-40 mg/5 mL (Advanced Antacid-Ant[place]as) 5 mL PO Q6H PRN [[id number] As directed] atorvastatin 10 mg PO BEDTIME [Bilateral custom AFO As directed] bisacodyl mg PO bismuth subsalicylate (Stomach Relief) 524 mg PO Q6H PRN blood sugar diagnostic ([employer] [facility] [employer] [facility] [employer] No Coding strips) As directed 2 times per day blood-glucose meter ([employer] [facility] [employer] [facility] [employer] Autocode Blood Glucose Monitoring System) As directed blood-glucose meter (SicuboTouch Ultra2 Meter) test once daily calcium carbonate 600 mg PO DAILY cholecalciferol (vitamin D3) 25 mcg PO DAILY clonidine HCl 0.1 mg PO BEDTIME PRN [email or web address],knee,reg,xlrg As directed 15-20 mm HG cyanocobalamin (vitamin B-12) 1,000 mcg PO BEDTIME cyclobenzaprine 5 mg PO TID PRN dextromethorphan polistirex ER 10 mL PO Q12H PRN [DIABETIC SHOES/INSERTS As directed] divalproex ER 1,000 mg PO BID empagliflozin (Jardiance) 25 mg PO DAILY esomeprazole magnesium (Nexium) 40 mg PO BEDTIME ferrous sulfate 325 mg PO BID fexofenadine-pseudoephedrine 180-240 mg ER 1 tab PO QAM 10 days fluoride (sodium) 1.1% (PreviDent 5000 Booster Plus) 1 appl dental BID fluticasone furoate-vilanterol 200-25 mcg/dose (Breo Ellipta) 1 inh inhalation DAILY fluticasone propionate 50 mcg/actuation (Flonase Allergy Relief) 1 spray intranasal BID gabapentin (Neurontin) 300 mg PO BID [Heat Moldable shoe inserts As directed] [Hospital Bed full electric with rails As directed] hydralazine 50 mg PO TID ibuprofen 600 mg PO Q6H PRN lactase (Lactaid) 3,000 units PO TIDWM PRN lancets (Prodigy Lancets) As directed check BS twice a day lisinopril 5 mg PO DAILY loperamide 2 mg PO Q8H PRN [Matress for electric hospital bed As directed] ckkockam-kqzlvzzoaPf-rtmnckbaN 3.5-400-5,000 [id number] (Triple Antibiotic) 1 appl topical BID PRN propranolol 20 mg PO TID risperidone 3 mg PO BID starch (thickening) ([employer] Thick-It oral powder) Add thick it powder to food and beverage using enclosed measuring spoon TID 30 days triamcinolone acetonide 0.1% 1 appl dental Q8H PRN [wheelchair cushion As directed] Tobacco use date assessed: 10/03/25 Dental Screening Dental Screen Date: 10/03/25 Did you have a dental visit in the last 12 months?: No Did you have a dental problem in the last 6 months where you did not have access to dental care?: No Was dental information given to patient?: Patient has dentist HPI HPI Comments History of Present Illness Details History of Present Illness The patient is a 55-year-old individual presenting for management of multiple chronic medical conditions and acute complaints. The patient has a past medical history significant for obesity, schizophrenia, diabetes mellitus, hypercholesterolemia, hypertension, cerebellar ataxia, and asthma. The patient has a history of recurrent falls, with the most recent one occurring on Friday when the patient fell from a wheelchair while going down a hill. This fall resulted in a laceration to the left eyebrow, which was closed with Vicryl sutures. Work-up at the time included a negative CT of the brain. The patient also had a fall on September 08 with complaints of lower back pain, for which the workup was negative, and another fall approximately one month ago. Regarding diabetes management, the patient's most recent HbA1c was 9.0%, a significant increase from 7.0% in May. The patient reports high nighttime blood glucose readings in the 300-500s, though morning numbers are good. The patient is currently taking Jardiance 25 mg daily and follows a reportedly controlled diet, though there is concern for sneaking snacks. The patient has a history of a tubular adenoma found on a colonoscopy in September 2022 and has a pending follow-up with gastroenterology. The patient was seen by endocrinology for hyperparathyroidism, but the workup suggested insufficient calcium or lab error, and the patient was discharged from their care after being advised to continue calcium and vitamin D. There have been several ER visits, including two for chest pain in September, with negative CTA of the chest, abdomen, and pelvis, and a normal chest x-ray. Another ER visit on September 17 was for diabetic hyperglycemia. Blood work from September 2022 showed anemia, chronic thrombocytopenia, a BUN of 43, and creatinine of 1.3. Health Maintenance - Colon cancer screening: A colonoscopy in September 2022 revealed a tubular adenoma; the patient has a pending follow-up with gastroenterology. - Diabetes screening: Follow-up fasting blood work, including an A1c, is ordered for three months from now. - Eye examination: An urgent referral to ophthalmology was placed for new-onset blurred vision. - Physical activity: Advised to perform chair exercises. Social History - Living situation: Resides in a supported living environment and has expressed a desire to move to a different location multiple times. - Functional status: Uses a wheelchair and a walker for mobility. - Activities: Attends a day program two to three times a week. - Nutrition: Diet is reportedly managed with sugar-free items and smaller portions, though adherence may be an issue. - Activity level: Reported to be low as the patient Results - Labs: - HbA1c (current): 9.0%. - HbA1c (June 09): 7.0%. - Bloodwork (October 01, 2022): Showed anemia, chronic thrombocytopenia, BUN 43, Creatinine 1.3. - LDL: 80. - Imaging: - CT brain (recent, post-fall): Negative. - CT cervical spine (recent): Multilevel spondylosis without acute fracture. - Chest X-ray (September 08 and October 01): Negative. - CTA of the chest, abdomen, and pelvis (September 10): Negative. - Right shoulder X-ray: Suggestive of rotator cuff tendinopathy and degenerative changes, no acute findings. - Procedures: - Colonoscopy (September 2022): Revealed a tubular adenoma. [facility] Medical History Syncope Vasovagal syncope Tinea cruris Leg swelling Atrial flutter Atrial fib/flutter, transient A-fib Arrhythmia Abnormal EKG Contusion of left ankle Annual physical exam Abdominal pain Back pain Positive colorectal cancer screening using Cologuard test Precordial chest pain Hospital discharge follow-up Chest pain Right ankle pain Musculoskeletal chest pain Left-sided chest pain Back pain Fall Dysphagia Acute kidney injury Gait instability Suicidal ideation COVID-19 Hypomagnesemia Diarrhea Abdominal pain Ankle pain, left Left ankle sprain Seizure disorder Hypertension Anxiety Hyponatremia Cerebellar ataxia Anemia Lactose intolerance Vertigo Asthma Mental disability Type 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 Proteinuria Hyperlipidemia LDL goal <100 Essential hypertension Surgical History Hx of surgical procedure (07/22/24) Hx of colonoscopy History of orchiectomy Family History Father Myocardial infarction CVD (cardiovascular disease) Diabetes mellitus Mother Diabetes mellitus HTN (hypertension) Brother In good health Sister In good health Social History Household Members: Other Household Members Other:: [facility]. Housing: Other Housing Other:: retirement. Do you presently have visiting nurse or other home services: No (retirement.) 75 years or older and lives alone: No Unable to assess alcohol history related to: Unknown Alcohol intake: former 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 1. Little interest or pleasure in doing things: several days 2. Feeling down, depressed, or hopeless: not at all 3. Trouble falling or staying asleep, or sleeping too much: several days 4. Feeling tired or having little energy: not at all 5. Poor appetite or overeating: not at all 6. Feeling bad about yourself - or that you are a failure or have let yourself or your family down: not at all 7. Trouble concentrating on things, such as reading the newspaper or watching television: not at all 8. Moving or speaking so slowly that other people could have noticed. Or the opposite - being so fidgety or restless that you have been moving around a lot more than usual: several days 9. Thoughts that you would be better off or of hurting yourself in some way: not at all Total score: 3 Depression Screening Interpretation: Negative Depression Screening Done: Yes 80856 - PHQ-9 Billing: Yes Source: Developed by Drs. Wellington López, Monica Jackson, Ray Nguyen and colleagues, with an educational perez from [employer]. Thrive Questionnaire Date Thrive assessed: 10/03/25 I am a: Parent/Caregiver What is your living situation today?: I choose not to answer this question Within the past 12 months, did the food you bought not last and you didn't have the money to get more?: I choose not to answer this question Within the past 12 months, did you worry whether your food would run out before you got money to buy more?: I choose not to answer this question Do you have trouble paying for medicines?: No Do you have trouble getting transportation to medical appointments?: No Do you have trouble paying your heating and electricity bill?: No Do you have trouble taking care of your child, family member or friend?: No Do you have trouble with day-to-day activities such as bathing, preparing meals, shopping, managing finances, etc.?: No Are you currently unemployed and looking for a job?: I choose not to answer this question Are you interested in more education?: No Please select the resources that you would like help with: None Currently or been in a relationship where the following occur: I choose not to answer THRIVE Score: 0 AUDIT C Alcohol Use Questionnaire (AUDIT-C) 1. How often do you have a drink containing alcohol?: Never Total Score: 0 CHANI-7 AMB Questionnaire CHANI-7 Date CHANI - 7 assessed: 11/12/24 Feeling nervous, anxious, or on edge: 0 = Not at all Not being able to stop or control worryin = Not at all Worrying too much about different things: 0 = Not at all Trouble relaxin = Not at all Being so restless that it is hard to sit still: 0 = Not at all Becoming easily annoyed or irritable: 0 = Not at all Feeling afraid as if something awful might happen: 0 = Not at all Total CHANI-7 score (0-4 normal; 5-9 mild; 10-14 moderate; 15-21 severe): 0 Source: Developed by Drs. Wellington López, Monica Jackson, Ray Nguyen and colleagues, with an educational perez from [employer]. Review of Systems Narrative Review of Systems - Eyes: Reports new onset of blurred vision in one eye. - Musculoskeletal: Reports right shoulder pain, neck pain, and lower back pain after recent falls. - Gastrointestinal: Reports need for loperamide for occasional loose stools. - Psychiatric: Expresses desire to change living facility. Physical exam (Primary Care) Vital Signs: Last Vital Signs Pulse 73 10/03/25 14:04 Resp 18 10/03/25 14:04 Pulse Ox 99 10/03/25 14:04 Oxygen Delivery Method Room Air 10/03/25 14:04 BMI result Body Mass Index 40.0 Tobacco/Smoking Status: Tobacco use Status Tobacco use date assessed 10/03/25 10/03/25 14:10 Patient Tobacco Use Status Never used Tobacco 10/03/25 14:10 Tobacco use type Cigarette 10/03/25 14:10 e-Cigarette/Vaping Use Never Used 10/03/25 14:10 PHQ-9: PHQ-9 Score PHQ-9: Total score 3 10/03/25 17:39 Depression Screening Interpretation: Negative Thrive Assessment: Date of Thrive Assessment Date Thrive assessed 10/03/25 10/03/25 14:10 Currently or been in a relationship where the following occur: I choose not to answer Narrative Physical Exam - Vitals: Blood pressure is 130/72 mmHg. - HEENT: A sutured laceration is present on the left eyebrow. - Eyes: Extraocular movements are intact. - Neurologic: Motor strength is grossly intact in bilateral upper and lower extremities. Const General: alert; No acute distress Eyes Conjunctivae: conjunctivae normal Resp Auscultation: clear to auscultation bilaterally Cardio Rate: regular rate Rhythm: regular rhythm GI Inspection: Yes normal to inspection Extrem General: Yes normal to inspection and No edema Results AMB Hemoglobin A1c AMB Hemoglobin A1c 9.0 % Last Edit by Emily Moore MA on 10/03/25 17:40 Results Reviewed Results Reviewed: Laboratory Last Values Hgb A1c (Clinic) 9.0 % (4.0-6.0) H 10/03/25 14:12 Coding Level of Care Code Complex visit Add On G2211 Diagnoses Essential hypertension I10 Hyperlipidemia LDL goal <100 E78.5 Type 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 E11.29 Gastroesophageal reflux disease, unspecified whether esophagitis present K21.9 Esophagitis presence: esophagitis presence not specified Cerebellar ataxia G11.9 Moderate persistent asthma without complication J45.40 Asthma complication type: uncomplicated Asthma persistence: persistent Asthma severity: moderate Periorbital hematoma of left eye H05.232 Head trauma S09.90XA Vision blurred H53.8 Additional Codes PHQ-9 - 56721 - PHQ-9 Billing: Yes ([id number]) Assessment & Plan Assessment & Plan (1) Essential hypertension: Code(s): I10 - Essential (primary) hypertension Category: Medical Plan: Patient is on hydralazine 50 mg t.i.d. lisinopril 5 mg once a day propranolol 20 mg t.i.d. (2) Hyperlipidemia LDL goal <100: Code(s): E78.5 - Hyperlipidemia, unspecified Category: Medical Plan: Avoid fried foods, chicken skin, eggs, butter margarine, pastries and meat. Be it pork or beef they have a lot of cholesterol LDL goal of less than 100 and triglyceride of less than 150 on atorvastatin 10 mg at bedtime (3) Type 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: Code(s): E11.29 - Type 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 Category: Medical Plan: Decrease the amount of carbohydrate intake, pasta, bread, rice and potatoes are all sugar and that is aside from all the sweet stuff, remember that fruits are good but they are Sweet also. Patient is taking Jardiance 25 mg once a day (4) GERD (gastroesophageal reflux disease): Code(s): K21.9 - Gastro-esophageal reflux disease without esophagitis Category: Medical Qualifiers: Esophagitis presence: esophagitis presence not specified Qualified Code(s): K21.9 - Gastro-esophageal reflux disease without esophagitis Plan: Avoid the foods that causes that usually spicy foods, tomato products, juices, coffee, soda and foods that your sensitive to. After eating do not lie down, allow 3-4 hours before in lie down. And keep the head of bed above 30 degrees to avoid the acid from going up. (5) Cerebellar ataxia: Code(s): G11.9 - Hereditary ataxia, unspecified Category: Medical Plan: Presently using wheelchair and walker. (6) Asthma: Code(s): J45.909 - Unspecified asthma, uncomplicated Category: Medical Qualifiers: Asthma complication type: uncomplicated Asthma persistence: persistent Asthma severity: moderate Qualified Code(s): J45.40 - Moderate persistent asthma, uncomplicated Plan: Continue with inhalers (7) Periorbital hematoma of left eye: Comment: 10/01/2025 Code(s): H05.232 - Hemorrhage of left orbit Category: Medical (8) Head trauma: Comment: 10/01/2025 Code(s): S09.90XA - Unspecified injury of head, initial encounter Category: Medical (9) Vision blurred: Comment: L eye 10/01/2025 Code(s): H53.8 - Other visual disturbances Category: Medical Plan Plan Patient was informed and verbally consented to the use of an ambient scribe for clinic note documentation during this visit. 1. Diabetes Mellitus, Type 2 The patient's diabetes is poorly controlled, as evidenced by an increase in HbA1c from 7.0% in May to 9.0% currently. Despite being on Jardiance, the patient is experiencing significant nighttime hyperglycemia. Insulin will be held as a last resort. A prescription for metformin 500 mg twice daily will be added. Fasting blood work will be rechecked in three months. 2. Blurred Vision, New Onset The patient reports new onset of blurred vision in one eye following a recent fall. While the CT scan of the brain was negative for an acute bleed, the proximity of the laceration to the eye and the new symptom warrant further investigation. An urgent referral will be placed to ophthalmology (Dr. Cee) for a comprehensive eye examination. 3. Recurrent Falls With Laceration The patient sustained a left eyebrow laceration from a recent fall, which has been sutured. The patient will need to return for suture removal in approximately seven days. The patient has been advised to perform chair exercises to improve strength and stability. 4. Lactose Intolerance To simplify medication administration and allow for a less restrictive diet, the PRN lactase supplement will be changed to a scheduled dose. A new prescription will be sent for lactase to be taken three times a day. 5. Medication Management The ibuprofen prescription will be discontinued due to its potential risk to kidney function. Acetaminophen 650 mg can be used every 4 hours as needed for fever of 101??F or pain. A prescription for Delsym will be sent to have on hand for cough. The prescription for loperamide will be clarified to be taken every 8 hours as needed for loose stools. The prescription for Nexium for reflux will be continued and re-sent. 6. Hypertension The patient's blood pressure is 130/72 mmHg. The patient will continue the current regimen of hydralazine 50 mg TID, lisinopril 5 mg daily, and propranolol 20 mg TID. 7. Hypercholesterolemia Continue atorvastatin 10 mg at bedtime to maintain an LDL goal of less than 100. 8. Asthma Continue current inhaler therapy. Discussion Notes I discussed the significant increase in the patient's A1c to 9.0% and the need for medication adjustment. I explained that I am adding metformin 500 mg twice daily and that we will monitor the response before considering insulin, which is a last resort. I addressed the new complaint of blurred vision, emphasizing the importance of an ophthalmology evaluation due to the recent fall; I have placed an urgent referral. I reviewed medication changes with the caregiver, including discontinuing ibuprofen due to kidney numbers and clarifying the use of acetaminophen for pain or fever. I agreed to prescribe lactase on a scheduled basis (three times a day) to simplify management of lactose intolerance. I also sent prescriptions for Delsym and loperamide as requested, with clarified instructions. I informed the caregiver that follow-up fasting blood work will be needed in three months to monitor the A1c and kidney function. I also discussed the patient's expressed desire to change living situations, clarifying my role is limited to medical care and I cannot facilitate such moves. Patient Instructions - Take the new medication, metformin 500 mg, two times per day for your diabetes. - Take one lactase pill three times per day with your meals to help with dairy foods. - Stop taking ibuprofen. - You may take Tylenol (acetaminophen) 650 mg every 4 hours as needed for pain or for a fever of 101??F or higher. - An urgent appointment has been made with the eye doctor to check on your blurry vision. - You will need to come back in about one week to have the stitch in your eyebrow removed. - You will need to get fasting blood work done in three months. - Try to do chair exercises to help with your strength. - Continue taking all your other current medications as prescribed. Orders: Orders Comprehensive Met. Panel 3 Months E11. - Type 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 Thyroid Stimulating Hormone 3 Months E11. - Type 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 Vitamin B12 and Folate 3 Months E11. - Type 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 AMB Hemoglobin A1c Today E11. - Type 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, E11.65 - Type 2 diabetes mellitus with hyperglycemia Complete Blood Count Auto Diff 3 Months E11. - Type 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 Free T4 (Free Thyroxine) 3 Months E11. - Type 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 Lipid Panel 3 Months E11. - Type 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, E78.00 - Pure hypercholesterolemia, unspecified Hemoglobin A1c 3 Months E11. - Type 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 Microalbumin, Random (w Creat) 3 Months E11. - Type 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, E11.65 - Type 2 diabetes mellitus with hyperglycemia Creatinine Urine 3 Months E11. - Type 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, E11.65 - Type 2 diabetes mellitus with hyperglycemia UA CC w/rflx Micro + Cult 3 Months E11. - Type 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, R30.0 - Dysuria Prostate Specific Antigen Scr 3 Months E11.29 - Type 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 Referrals Ophthalmology Referral H53.8 - Other visual disturbances Medications: New metformin 500 mg PO BIDWMEAL 60 tabs 3RF E11. - Type 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 dextromethorphan polistirex ER (Delsym 12 hour) 10 mL PO Q12H PRN 89 mL 0RF cough E11.29 - Type 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 Changed From lactase (Lactaid) take at the start of drinking milk only 3,000 units PO TIDWM PRN 30 tabs 11RF Lactose Intolerance E11.65 - Type 2 diabetes mellitus with hyperglycemia To lactase (Lactaid) take at the start of drinking milk only 3,000 units PO TID 90 tabs 11RF Lactose Intolerance E11.65 - Type 2 diabetes mellitus with hyperglycemia Refilled loperamide 2 mg PO Q8H PRN 30 caps 12RF loose stool E11.29 - Type 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 esomeprazole magnesium (Nexium) 40 mg PO BEDTIME 28 caps 2RF E11.29 - Type 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 loperamide 2 mg PO Q8H PRN 30 caps 0RF loose stool E11.29 - Type 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 acetaminophen 650 mg (2 x 325 mg) PO Q4H PRN 180 tabs 2RF fever 101 or pain 90 days J45.40 - Moderate persistent asthma, uncomplicated
--- OUTSIDE RECORDS SUMMARY | 2025-10-03 18:27 | XMS_ITS | Clinical Summary ---
Author Organization 175 [facility] Address 175 [place] [address] Phone Care Team Providers Care Linseed Oil Press Tender Name Role Phone Robert Sumner MD Primary Care Provider [phone] Allergies Active Allergy Reactions Criticality Noted Date [...] Upcoming Encounters Date Type Department Care Team ([facility] Contact Info) Description 10/12/2025 1:00 PM EST Office Visit Orthopedic Surgery - [place] [address] [address] Jose Bonds DPM [address] [address] Health Maintenance Due Date Last [...] Documents on File Type Date Recorded 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
--- OUTSIDE RECORDS SUMMARY | 2025-10-03 18:27 | XMS_ITS | Data Portability ---
Author Organization [facility] Address [address] [place] [address] Assessment No assessment recorded. Plan of Treatment Reminders Order Date Submit Date Provider Last Modified By Organization Details Last Modified Time Details Appointments None recorde d. Lab glucose , fingers tick, blood 023 11/19/19 [email or web address] [facility], [address] [place] [address], [address], 11:50:35 Referral None recorde d. Procedures None recorde d. Surgeries None recorde d. Imaging XR, foot, 3 or more view 023 11/19/19 NATALIE [facility], [address] [place] [address], [address], 3 12:55:32 Medication Orders None recorde d. Patient TargetsNo targets recorded. Patient InstructionsNo instructions recorded. Reason for Referral None Reported. Results Created Date Observation Date Name Description Value Unit Range Abnormal Flag Note LastModifiedBy Organization Detail LastModifiedTime 11/19/1911/19/2022 gluco se, finge rstic k, blood blood sugar - non fasting mg/dL 80-140 = normal Not Available [address], [address], 11/19/2022 11:31:33 11/19/19 23 11/19/2022 gluco se, finge rstic k, blood blood sugar - fasting 193 mg/dL 80-125 = normal Not Available [address] [place] [address] [address] [facility], [place], [address], 11/19/2022 11:31:33 11/19/19 23 11/19/2022 XR, foot, 3 or more view No observ ation record ed. [email or web address] [facility] [address] [facility] [place], [address], 11/20/2022 08:27:39 Result Notes None recorded. Problems Name Problem SNOMED Code Status Onset Date Resolution Date Notes Provider Name and Address Organization Details Recorded Time Hypertensive disorder 32796098 Active 2022 ZAAN CHARLTON null, [place] - [facility] 3 11:28:03 Asthma 120161128 Active 2022 ZANA CHARLTON null, PA - [facility] 3 11:28:13 Hyperlipidemia 01339805 Active 2022 ZANA CHARLTON null, PA - [facility] 3 11:29:19 Cobalamin deficiency 667590933 Active 2022 ZANA CHARLTON null, PA - [facility] 3 11:30:02 Diabetes mellitus 70856197 Active 2022 ZANA CHARLTON null, PA - [facility] 3 11:30:11 Gastroesophage al reflux disease 389315189 Active 2022 ZANA CHARLTON null, PA - [facility] 3 11:30:43 Anemia 256032252 Active 2022 ZANA CHARLTON null, PA - [facility] 3 11:30:50 Hyponatremia 36418014 Active 2022 ZANA CHARLTON null, PA - [facility] 3 11:31:05 Problem Notes None recorded. Medical Equipment None Reported. Allergies Allergen ID Allergen Name Allergen Category Reaction Reaction Severity Criticality Documentation Date Start Date Code Code System Note Provider Name and Address Organization Details Recorded Time 740237 Substance with sulfonami de structure and antibacte rial mechanism of action (substanc e) medicatio n hives Not available Not available 11/19/2022 00956 8003 SNOMED PANKAJ [place] - [facility] [...] Updated DateTime 3 165.1 cm 43.9 kg/m2 218714. 39 g 10 18 /min 100 % 76 /min 97.5 [degF] 157/85 mm[Hg] ZANA CHARLTON PA - [facility] 11:19:22 Social History Question Answer Notes LastModified by Moe Delo Details LastModified Time Tobacco Smoking Status Never Smoker ZANA CHARLTON [email or web address] PA - [facility] 11/19/2022 11:18:12 Have You Recently Traveled Abroad? No [email or web address] Information not available 11/19/2022 Sex: Unknown Functional Status Question Answer Note LastModified by Moe Delo Details LastModified Time Do you use any illicit or recreational drugs? No [email or web address] Information not available 11/19/2022 Do you or have you ever used any other forms of tobacco or nicotine? No [email or web address] Information not available 11/19/2022 What is your level of alcohol consumption? None [email or web address] Information not available 11/19/2022 Mental Status None recorded. Family History Relationship Description Onset Age of this Age Resolved Age Notes LastModified by Organization Details LastModified Time Father No current problems or disability [email or web address] Not available 11/19 11:17:55 Mother No current problems or disability [email or web address] Not available 11/19 11:17:55 Medical History No medical history recorded. Past Encounters Encounter ID Performer Location Encounter Start Date Encounter Closed Date Diagnosis/Indication Diagnosis SNOMED-CT Code Diagnosis ICD10 Code Diagnosis IMO Codes Diagnosis Note [id number] [facility] [address] [place] [address] 11/11/2017 12:27:03 11/11/2017 14:11:50 [id number] [address] [address] [address] [place] [address] 07/16/2019 09:34:06 07/16/2019 10:03:45 [id number] 20[facility] [address] [place] [address] 12/30/2019 18:13:51 12/30/2019 19:22:33 [id number] [address] [address] [address] [place] [address] 05/10/2022 10:31:31 05/10/2022 12:37:38 [id number] [address] [address] [address] [place] [address] 09/24/2019 18:43:51 09/24/2019 19:35:54 [id number] [address] [address] [address] [place] [address] 10/02/2019 17:34:39 10/02/2019 17:59:04 [id number] [address] [address] [address] [place] [address] 03/31/2021 12:12:43 03/31/2021 13:12:15 [id number] [address] [address] [address] [place] [address] 04/18/2021 16:40:29 04/18/2021 17:49:54 [id number] [address] [address] [address] [place] [address] 11/20/2019 12:14:41 11/20/2019 13:14:49 [id number] Ag Lara MD [address] [address] [place] [address] 11/19/2022 11:04:24 11/19/2022 12:41:23 Pain in left foot [id number] 37064 M79.672 Imaging did not indicate acute fracture [...] today and the radiology interpreta tion. Dizziness 916585928 R42 Vital stable. Suicidal thoughts 080247 6 R45.851 Patient has SI and HI [...] Guarantor Name 11/19/2022 1 [place]IC[place] [employer] Raulito Zepeda [id number] Raulito Zepeda 12/30/2022 2 [place] [facility] Raulito Zepeda [id number] Raulito Zepeda 11/19/2022 [facility] (MEDICARE [facility] A) Raulito Zepeda [id number] Raulito Zepeda Notes Date Note Type [...] or someone else. Shevaughn Kealy, MD [address] [facility], [place], [address], [place] - [facility] 11/19/2022 13:08:30
== END 2025-10-03 15:05 | disposition home or self-care (01) ==
LOC: HO.HMCH 13:39
PROVIDERS: PCP Internal Medicine; Visit Provider Internal Medicine
DX: I10 Essential (primary) hypertension (principal); E78.5 Hyperlipidemia, unspecified; E11.29 Type 2 diabetes mellitus with other diabetic kidney complication; K21.9 Gastro-esophageal reflux disease without esophagitis; G11.9 Hereditary ataxia, unspecified; J45.40 Moderate persistent asthma, uncomplicated; H05.232 Hemorrhage of left orbit; S09.90XA Unspecified injury of head, initial encounter; H53.8 Other visual disturbances; E11.65 Type 2 diabetes mellitus with hyperglycemia

== ENCOUNTER → 2025-10-03 13:38 | Outpatient (BNVA) | payer MEDICARE, MEDICAID, SELFPAY | PROVIDERS: PCP Internal Medicine; Visit Provider Internal Medicine | DX: I10 Essential (primary) hypertension (principal); E78.5 Hyperlipidemia, unspecified; K21.9 Gastro-esophageal reflux disease without esophagitis; G11.9 Hereditary ataxia, unspecified; J45.40 Moderate persistent asthma, uncomplicated; H05.232 Hemorrhage of left orbit; S09.90XA Unspecified injury of head, initial encounter; Z13.1 Encounter for screening for diabetes mellitus; H53.8 Other visual disturbances | CPT/HCPCS: 83036; 96127; 99212 ==

== ENCOUNTER 2025-10-21 16:11 | Outpatient (AMB) | payer MEDICARE, MEDICAID, SELFPAY ==
--- NOTE | 2025-10-21 16:13 | MHC.OFFVIS ---
Vital Signs 10/21/25 16:18 Height 5 ft 5 in BMI Reason not done Patient refused/unable BP 134/86 Blood Pressure Location Rt brachial Position Sitting Pulse 74 Pulse Source Pulse Oximeter Pulse Oximetry (%) 100 Oxygen Delivery Method Room Air Intake Visit Reasons: S/P double; Dr. Prabhakar Intake Note: Est pt for mgmt of GERD, dysphagia, and chronic abd pain. CC: Pt denies any current GI sx and confirms current therapies are effective. Pt reports concern involving recently planned procedure having to be aborted due to syncopal episode. Asset Card Clerk Required: No Accompanied by: Burial Needs Salesperson Allergies Sulfa (Sulfonamide Antibiotics) Allergy (Severe, Verified 10/03/25 14:04) CHAVEZ ALICIA REACTION trimethoprim Allergy (Mild, Verified 10/03/25 14:04) UNKNOWN lactose Adverse Reaction (Mild, Verified 10/03/25 14:04) STOMACH UPSET HPI HPI S/P double; Dr. Prabhakar: Details: LAST VISIT: GERD (gastroesophageal reflux disease) Dysphagia Helicobacter pylori (H. pylori) infection Screen for colon cancer IBS (irritable bowel syndrome) Plan Patient will continue taking Nexium daily. Avoid dietary triggers and late night snacking. Message sent to surgical schedulers to book procedure for patient. Patient denies any cardiac or respiratory issues. Encouraged patient to do thickened liquids just as recommended per speech therapy. Patient will be sent for upper endoscopy to rule out gastritis, esophagitis, duodenitis, H pylori. Patient does have a history of H pylori in the past. Patient was encouraged to take Dulcolax as needed. Currently is not constipated, however due to his poor prep in the past he was encouraged to take Dulcolax 1 week before the procedure. What to expect before during and after procedure discussed with patient. Stressed the importance of good bowel prep and clear liquid diet day before procedure. Patient will follow-up in our office after the procedure, sooner on as needed basis. He is agreeable to this plan and verbalizes understanding of instructions. He was given the opportunity to ask questions and all questions answered. ? Thank you for allowing me to participate in his care New bisacodyl (Dulcolax (bisacodyl)) 10 mg (2 x 5 mg) PO BEDTIME 180 tabs 4RF polyethylene glycol 3350 (Miralax) As directed by gastroenterology department at [facility] 238 grams PO ONCE 238 grams 0RF Z12.11 TODAY'S VISIT: Patient is here today for follow-up. Colonoscopy was canceled as patient reports when he was getting prepped for procedure. Patient stated during IV insertion he last consciousness. Apparently CPR was done for 2 rounds. Patient at the time was not on any monitor, however when assessed in the ED patient had normal QTC, and normal electrolytes. Patient reports that they tried couple times to insert IV on him and it was painful. Patient denies any chest pain or any discomfort. Cardiology was never consulted for this while he was hospitalized after this episode. [facility] Medical History Syncope Vasovagal syncope Tinea cruris Leg swelling Atrial flutter Atrial fib/flutter, transient A-fib Arrhythmia Abnormal EKG Contusion of left ankle Annual physical exam Abdominal pain Back pain Positive colorectal cancer screening using Cologuard test Precordial chest pain Hospital discharge follow-up Chest pain Right ankle pain Musculoskeletal chest pain Left-sided chest pain Back pain Fall Dysphagia Acute kidney injury Gait instability Suicidal ideation COVID-19 Hypomagnesemia Diarrhea Abdominal pain Ankle pain, left Left ankle sprain Seizure disorder Hypertension Anxiety Hyponatremia Cerebellar ataxia Anemia Lactose intolerance Vertigo Asthma Mental disability Type 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 Proteinuria Hyperlipidemia LDL goal <100 Essential hypertension Surgical History Hx of surgical procedure (07/22/24) Hx of colonoscopy History of orchiectomy Family History Father Myocardial infarction CVD (cardiovascular disease) Diabetes mellitus Mother Diabetes mellitus HTN (hypertension) Brother In good health Sister In good health Social History Household Members: Other Household Members Other:: resides at Assisted. Housing: Other Housing Other:: prison. Do you presently have visiting nurse or other home services: No (prison.) 75 years or older and lives alone: No Unable to assess alcohol history related to: Unknown Alcohol intake: former 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 Patient Tobacco Use Status: Never used Tobacco Tobacco use type: Cigarette e-Cigarette/Vaping Use: Never Used Second Hand Smoke Exposure: No Advance Directives Date on File: 03/07/21 service: No Current occupational status: disabled Cognitive needs: Yes (walker) Hearing needs: No Vision needs: Yes (glasses) Review of Systems Const Denies weight gain and Denies weight loss ENT Reports no additional complaints, Denies dysphagia and Denies odynophagia Card Reports no additional complaints Resp Reports no additional complaints GI Denies abdominal pain, Denies belching, Denies melena, Denies bloating, Denies change in bowel habits, Denies dysphagia, Denies excessive flatus, Denies dyspepsia, Denies heartburn, Denies diarrhea, Denies loose stools, Denies nausea, Denies odynophagia and Denies vomiting Reports no additional complaints Musc Reports no additional complaints Neuro Reports no additional complaints Psych Reports no additional complaints Endo Reports no additional complaints Physical Exam Const Other: Patient is in a wheelchair General: no acute distress Nutritional Appearance: obese Orientation/consciousness: patient oriented x3 HEENT Head: Yes normal to inspection, Yes normocephalic and Yes atraumatic Face and sinus: Yes normal facial exam Mouth: Normal oral and palatal mucosa present Throat: Yes posterior oropharynx normal, Yes tonsils normal and Yes uvula midline Eyes General: appearance normal, both eyes and all related structures Neck Neck: Yes normal visual inspection, Yes full ROM and Yes trachea midline Thyroid: Thyroid normal Resp Effort & Inspection: normal respiratory effort, able to speak in complete sentences, no tracheal deviation and symmetric chest movement Auscultation: clear to auscultation bilaterally Cardio Rate: regular rate Heart sounds: S1 normal heart sound present and S2 normal heart sound present GI Inspection: Yes normal to inspection, No distended and Yes obesity Palpation (GI): Soft to palpation, not firm, nontender and No hepatosplenomegaly present Auscultation: normal bowel sounds General: Yes no CVA tenderness Back/Spine/Pelvis Back: no CVA tenderness Skin General skin exam: elasticity normal, turgor normal and dry skin Neuro General: patient oriented x3 Psych Appearance: grossly normal Mental Status: mental status grossly normal Speech and movement: Normal speech and movement present Affect: normal affect Attitude: cooperative Thought process: Normal thought process present Thought content: Normal thought content present Insight: Good insight present (Psych) Judgement: Good judgement present (Psych) Assessment & Plan Assessment & Plan (1) GERD (gastroesophageal reflux disease): Code(s): K21.9 - Gastro-esophageal reflux disease without esophagitis Category: Medical Qualifiers: Esophagitis presence: esophagitis presence not specified Qualified Code(s): K21.9 - Gastro-esophageal reflux disease without esophagitis (2) Constipation: Code(s): K59.00 - Constipation, unspecified Qualifiers: Constipation type: slow transit constipation Qualified Code(s): K59.01 - Slow transit constipation (3) Screen for colon cancer: Code(s): Z12.11 - Encounter for screening for malignant neoplasm of colon Plan Patient will be scheduled for another colonoscopy. Denies any chest pain or shortness of breath. Recently evaluated in a hospital during his admission. Continue Dulcolax daily. Continue Nexium. Patient had vasovagal reaction during IV insertion. Recommend increased fluids day before he he has procedure to avoid dehydration. I will see him after the procedure. Discussed with patient also losing weight. He is more sedentary now that he had few episodes of fall in the past month or so. Both patient and staff member are agreeable to plan of care and verbalizes understanding of instructions. They were given the opportunity to ask questions and all questions answered. Thank you for allowing me to participate in his care Medications: New polyethylene glycol 3350 (Miralax) As directed by gastroenterology department at [facility] 238 grams PO ONCE 238 grams 0RF Z12.11 - Encounter for screening for malignant neoplasm of colon Changed From bisacodyl PO To bisacodyl 10 mg (2 x 5 mg) PO BEDTIME 180 tabs 2RF Coding Level of Care Code Est Pt Level 4 (01347) Add On Problem Visit Only Diagnoses Gastroesophageal reflux disease, unspecified whether esophagitis present K21.9 Esophagitis presence: esophagitis presence not specified Slow transit constipation K59.01 Constipation type: slow transit constipation Screen for colon cancer Z12.11 Time Spent (min) 40 Comment 25 minutes spent with patient and additional 15 minutes spent reviewing his records
[2025-10-21 16:18] VITALS: BP 134/86; PULSE 74; O2SAT 100
--- OUTSIDE RECORDS SUMMARY | 2025-10-21 20:41 | XMS_ITS | Clinical Summary ---
Author Organization 175 [facility] Address [address] [place] [address] Phone Care Team Providers Care Parts Data Writer Name Role Phone Robert Sumner MD Primary Care Provider [phone] Allergies Active Allergy Reactions Criticality Noted Date Comments Sulfa (Sulfonamide Antibiotics) 12/11 Medications No known medications Encounters Date Type Department Care Team Description 10/12/2025 1:00 PM EST Office Visit Orthopedic Surgery [facility] [address] 175 [facility] [address] [place] [address] Jose Bonds, DPM Arthritis of left ankle (Primary Dx); Acquired bilateral foot drop; Dermatophytosis of nail; Pain in toe of right foot; Pain in toe of left foot; Type II diabetes mellitus with peripheral circulatory disorder (CMS/HCC V24, CMS/HCC V28); Metatarsalgia of both feet; Diabetic mononeuropathy simplex (CMS/[facility] V24, CMS/[facility] V28) from Last 3 Months Social History [...] Upcoming Encounters Date Type Department Care Team ([facility] st Contact Info) Description 01/10/2026 1:45 PM EST Office Visit Orthopedic Surgery - [place] 250 175 [facility] [address] [place] [address] Jose Bonds, DPM 175 [facility] [address] [place] [address] Health Maintenance Due Date Last [...] Documents on File Type Date Recorded 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
--- OUTSIDE RECORDS SUMMARY | 2025-10-21 20:41 | XMS_ITS | Data Portability ---
Author Organization [facility] Address [address] [place] [address] Assessment No assessment recorded. Plan of Treatment Reminders Order Date Submit Date Provider Last Modified By Organization Details Last Modified Time Details Appointments None recorde d. Lab glucose , fingers tick, blood 023 11/19/19 [email or web address] [facility], [address] [place] [address], [phone], 11:50:35 Referral None recorde d. Procedures None recorde d. Surgeries None recorde d. Imaging XR, foot, 3 or more view 023 11/19/19 NATALIE [facility], [address] [place] [address], [address], 3 12:55:32 Medication Orders None recorde d. Patient TargetsNo targets recorded. Patient InstructionsNo instructions recorded. Reason for Referral None Reported. Results Created Date Observation Date Name Description Value Unit Range Abnormal Flag Note LastModifiedBy Organization Detail LastModifiedTime 11/19/1911/19/2022 gluco se, finge rstic k, blood blood sugar - non fasting mg/dL 80-140 = normal Not Available [address], [address], 11/19/2022 11:31:33 11/19/19 23 11/19/2022 gluco se, finge rstic k, blood blood sugar - fasting 193 mg/dL 80-125 = normal Not Available [address] [place] [address] [facility] [address] [facility], [place], [address], 11/19/2022 11:31:33 11/19/19 23 11/19/2022 XR, foot, 3 or more view No observ ation record ed. [email or web address] [facility] [address] [facility] [address] [place], [address], 11/20/2022 08:27:39 Result Notes None recorded. Problems Name Problem SNOMED Code Status Onset Date Resolution Date Notes Provider Name and Address Organization Details Recorded Time Hypertensive disorder 81734652 Active 2022 ZANA CHARLTON null, [place] - [facility] 3 11:28:03 Asthma 975888798 Active 2022 ZANA CHARLTON null, PA - [facility] 3 11:28:13 Hyperlipidemia 87892940 Active 2022 ZANA CHARLTON null, PA - [facility] 3 11:29:19 Cobalamin deficiency 644767327 Active 2022 ZANA CHARLTON null, PA - [facility] 3 11:30:02 Diabetes mellitus 74332072 Active 2022 ZANA CHARLTON null, PA - [facility] 3 11:30:11 Gastroesophage al reflux disease 331394184 Active 2022 ZANA CHARLTON null, PA - [facility] 3 11:30:43 Anemia 012224312 Active 2022 ZANA CHARLTON null, PA - [facility] 3 11:30:50 Hyponatremia 96530065 Active 2022 ZANA CHARLTON null, PA - [facility] 3 11:31:05 Problem Notes None recorded. Medical Equipment None Reported. Allergies Allergen ID Allergen Name Allergen Category Reaction Reaction Severity Criticality Documentation Date Start Date Code Code System Note Provider Name and Address Organization Details Recorded Time 745736 Substance with sulfonami de structure and antibacte rial mechanism of action (substanc e) medicatio n hives Not available Not available 11/19/2022 42898 8003 SNOMED PANKAJ [place] - [facility] [...] Updated DateTime 3 165.1 cm 43.9 kg/m2 980463. 39 g 10 18 /min 100 % 76 /min 97.5 [degF] 157/85 mm[Hg] ZANA CHARLTON PA - [facility] 11:19:22 Social History Question Answer Notes LastModified by [email or web address] Details LastModified Time Tobacco Smoking Status Never Smoker ZANA CHARLTON [email or web address] PA - [facility] 11/19/2022 11:18:12 Have You Recently Traveled Abroad? No [email or web address] Information not available 11/19/2022 Sex: Unknown Functional Status Question Answer Note LastModified by [email or web address] Details LastModified Time Do you use any illicit or recreational drugs? No [email or web address] Information not available 11/19/2022 Do you or have you ever used any other forms of tobacco or nicotine? No [email or web address] Information not available 11/19/2022 What is your level of alcohol consumption? None [email or web address] Information not available 11/19/2022 Mental Status None recorded. Family History Relationship Description Onset Age of this Age Resolved Age Notes LastModified by Organization Details LastModified Time Father No current problems or disability [email or web address] Not available 11/19 11:17:55 Mother No current problems or disability [email or web address] Not available 11/19 11:17:55 Medical History No medical history recorded. Past Encounters Encounter ID Performer Location Encounter Start Date Encounter Closed Date Diagnosis/Indication Diagnosis SNOMED-CT Code Diagnosis ICD10 Code Diagnosis IMO Codes Diagnosis Note [id number] [facility] [address] [place] [address] 11/11/2017 12:27:03 11/11/2017 14:11:50 [id number] [address] [address] [address] [place] [address] 07/16/2019 09:34:06 07/16/2019 10:03:45 [id number] [facility] [address] [address] [place] [address] 12/30/2019 18:13:51 12/30/2019 19:22:33 [id number] [address] [address] [address] [place] [address] 05/10/2022 10:31:31 05/10/2022 12:37:38 [id number] [address] [address] [address] [place] [address] 09/24/2019 18:43:51 09/24/2019 19:35:54 [id number] [address] [address] [address] [place] [address] 10/02/2019 17:34:39 10/02/2019 17:59:04 [id number] [address] [address] [address] [place] [address] 03/31/2021 12:12:43 03/31/2021 13:12:15 [id number] [address] [address] [address] [place] [address] 04/18/2021 16:40:29 04/18/2021 17:49:54 [id number] [address] [address] [address] [place] [address] 11/20/2019 12:14:41 11/20/2019 13:14:49 [id number] Ag Lara MD [address] [address] [place] [address] 11/19/2022 11:04:24 11/19/2022 12:41:23 Pain in left foot 3464880167 42275 M79.672 Imaging did not indicate acute fracture [...] today and the radiology interpreta tion. Dizziness 695208297 R42 Vital stable. Suicidal thoughts 659330 6 R45.851 Patient has SI and HI [...] Guarantor Name 11/19/2022 1 [place] [employer] Raulito Zepeda [id number] Raulito Zepeda 12/30/2022 2 [place] [facility] Raulito Zepeda [id number] Raulito Zepeda 11/19/2022 [facility] (MEDICARE [facility] A) Raulito Zepeda [id number] Raulito Zepeda Notes Date Note Type [...] or someone else. Shevaughn Kealy, MD [address] [facility] [address], [place], [address], [place] - [facility] 11/19/2022 13:08:30
== END 2025-10-21 16:37 | disposition home or self-care (01) ==
LOC: HO.HGI 16:12
PROVIDERS: PCP Internal Medicine; Visit Provider Nurse Practitioner Family
DX: Z01.818 Encounter for other preprocedural examination (principal); Z12.11 Encounter for screening for malignant neoplasm of colon; K59.01 Slow transit constipation; R10.9 Unspecified abdominal pain; K21.9 Gastro-esophageal reflux disease without esophagitis
CPT/HCPCS: 99024; 99499

== ENCOUNTER → 2025-10-21 16:11 | Outpatient (BNVA) | payer MEDICARE, MEDICAID, SELFPAY | PROVIDERS: PCP Internal Medicine; Visit Provider Nurse Practitioner Family | DX: Z01.818 Encounter for other preprocedural examination (principal); K21.9 Gastro-esophageal reflux disease without esophagitis; K59.01 Slow transit constipation | CPT/HCPCS: 99212 ==